=== PATIENT | female | born 1955 | race Caucasian/White ===

== ENCOUNTER 2019-08-14 05:21 | Inpatient (IN) | payer MEDICAID ==
[~2019-08-14] VITALS: Ht 165.1 cm; Wt 98.0 kg
[~2019-08-14 05:21] MED LIST: BACDS PO
[2019-08-14] MEDS ORDERED: normal saline 1000ML IV soln IVB ONE (05:30)
[2019-08-14] MEDS ORDERED: DOXY100C43 PO (05:41)
[2019-08-14 05:54] LABS: BASOPHILS % (AUTO) 0.4 % (0-1); EOSINOPHILS # (AUTO) 0.2 X10'3 (0-0.9); EOSINOPHILS % (AUTO) 2.1 % (0-6); HEMATOCRIT 37.8 % (35.0-45.0); HEMOGLOBIN 12.7 g/dl (12.0-16.0); LYMPHOCYTES # (AUTO) 1.6 X10'3 (1.1-4.8); LYMPHOCYTES % (AUTO) 18.7 % (21-51); MEAN CORPUSCULAR HGB CONC 33.7 g/dL (33.0-36.5); MEAN PLATELET VOLUME 8.6 FL (7.4-10.4); MONOCYTES # (AUTO) 0.8 X10'3 (0-0.9); MONOCYTES % (AUTO) 9.5 % (2-12); NEUTROPHILS % (AUTO) 69.3 % (42-75); PLATELET COUNT 317 X10'3 (140-440); RED CELL DISTRIBUTION WIDTH 14.5 % (11.5-14.5); WHITE BLOOD COUNT 8.6 X10'3 (4.5-11.0)
[2019-08-14 06:18] LABS: ANION GAP 10 (8-16); BILIRUBIN,TOTAL 0.4 MG/DL (0.1-1.0); BLOOD UREA NITROGEN 16 MG/DL (7-18); BUN/CREATININE RATIO 15.7 (6.6-38.0); CALCIUM 9.3 MG/DL (8.5-10.1); CHLORIDE 105 MMOL/L (99-107); CREATININE 1.02 MG/DL (0.40-0.90); GLUCOSE 106 MG/DL (70-104); POTASSIUM 3.5 MMOL/L (3.5-5.1); SODIUM 140 MMOL/L (135-145); TOTAL CARBON DIOXIDE 24.6 MMOL/L (24-32); TOTAL PROTEIN 8.1 G/DL (6.4-8.2); eGFR 55 ML/MIN
[2019-08-14 06:19] LABS: ALANINE AMINOTRANSFERASE 32 U/L (12-78); ALBUMIN 3.1 G/DL (3.4-5.0); ALBUMIN/GLOBULIN RATIO 0.6 (1.1-1.5); ALKALINE PHOSPHATASE 135 IU/L (46-116); ASPARTATE AMINO TRANSFERASE 47 U/L (10-37)
--- NOTE | 2019-08-14 06:45 | NUR ---
PATIENT IS UNKEMPT WITH VERY DIRTY CLOTHES, SOCKS AND SHOES. INCONTINENT OF URINE. PATIENT GIVEN MELIDA CARE AND UP TO [facility] FOR CLEAN CATCH URINE SPECIMEN. CLOTHING REMOVED AND DIAPER APPLIED. NURSE ATTEMPTED TO REMOVE PATIENT'S SHOES WITHOUT SUCCESS. SHOES REMOVED. PATIENT HAS VERY DIRTY SOCKS THAT ARE STIFF AND STUCK TO FEET. PURULENT OOZING NOTED FROM BILAT FEET WITH REDNESS AND OPEN WOUNDS. FEET SOAKED IN WARM WATER, IN ATTEMPTS TO GET SOCKS OFF.
[2019-08-14] MEDS ORDERED: clotrimazole topical cream 15gm tube TP SCH (07:05)
[2019-08-14] MEDS ORDERED: clindamycin phosphate inj 600 MG in normal saline 50ml IV soln 50 ML IV ONE (07:05)
[2019-08-14] MEDS ORDERED: clotrimazole topical cream 15gm tube TP ONE (07:05)
[2019-08-14] MEDS ORDERED: clindamycin 600mg/D5W 50ml 50 ML IV ONE (07:10)
[2019-08-14 07:18] LABS: CLARITY,URINE SLIGHTLY CLOUDY (Clear); COLOR,URINE YELLOW (Yellow); GLUCOSE, URINE NEGATIVE (Neg); KETONES,URINE NEGATIVE (Neg); LEUKOCYTE ESTERASE ,URINE LARGE (Neg); NITRITES, URINE POSITIVE (Neg); OCCULT BLOOD,URINE MODERATE (Neg); PROTEIN,URINE NEGATIVE (Neg); UROBILINOGEN,URINE 0.2 E.U/dL (0.2-1.0)
[2019-08-14 07:25] LABS: UA COLLECTION TYPE CLN CATCH MIDSTREAM
[2019-08-14 07:30] LABS: SQUAMOUS EPITHELIAL CELL,UR MODERATE /LPF (FEW)
[2019-08-14 07:32] LABS: BACTERIA,URINE 4+ /HPF (Neg); RBC,URINE 20-50 /HPF (0-2); WBC,URINE TNTC /HPF (0-4)
--- NOTE | 2019-08-14 08:50 | NUR ---
Report received from ED RNDonna.
--- NOTE | 2019-08-14 08:55 | NUR ---
PAGE TO CASE MANAGEMENT. INDY CALLED BACK AND INFORMED THAT PATIENT IS BEING ADMITTED TO INPATIENT STATUS. INDY STATES THAT PATIENT WILL BE SEEN ON THURSDAY BY OUR SURVEY RODMAN STAFF, TO ASSIST WITH DISCHARGE PLANNING NEEDS.
--- NOTE | 2019-08-14 08:58 | NUR ---
CONTACT NUMBER [phone] FOR FRIEND, OSBALDO CANO. 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
--- NOTE | 2019-08-14 09:20 | NUR ---
Pt arrived to room 354C from ED
[2019-08-14 09:30] VITALS: BP 151/93
[2019-08-14 11:30] VITALS: BP 176/91
[2019-08-14] MEDS ORDERED: NO HOME MEDS (13:16)
[2019-08-14] MEDS ORDERED: normal saline 1000ml 1,000 ML IV ONE (17:15)
[2019-08-14] MEDS: aspirin 81mg tablet.DR PO SCH (17:38)
[2019-08-14] MEDS: CefTRIAXone 2gm/D5W 50ml 50 ML IV SCH (17:38)
[2019-08-14] MEDS: hydrALAZINE 20mg/ml inj. IV PRN (17:38)
--- NOTE | 2019-08-14 18:30 | NUR ---
Problems reprioritized. Patient report given, questions answered & plan of care reviewed with JASON Dobson.
--- NOTE | 2019-08-14 18:55 | NUR ---
Patient in room [facility] 354. I have received report from JASON Marie and had the opportunity to ask questions and assume patient care.
[2019-08-14] MEDS ORDERED: acetaminophen 325mg tablet PO PRN ×2 (19:30)
[2019-08-14] MEDS ORDERED: potassium Cl 20 mEq SR tablet PO PRN ×2 (19:30)
[2019-08-14] MEDS: metoprolol tartrate 12.5mg (1/2 tablet) PO SCH (19:30)
[2019-08-14] MEDS ORDERED: ondansetron/PF 4mg/2ml inj IV PRN (19:30)
[2019-08-14] MEDS: mineral oil/petrolatum, white cream 113gm jar TP SCH (19:30)
[2019-08-14] MEDS ORDERED: magnesium 4gm in 100ml NS 100 ML IV PRN (19:30)
[2019-08-14] MEDS ORDERED: HYDROcodone/acetaminophen 5mg/325mg tablet PO PRN (19:30)
[2019-08-14] MEDS ORDERED: potassium CL 10mEq/100ml bag 100 ML IV PRN ×2 (19:30)
[2019-08-14] MEDS ORDERED: mag hydrox/Alum hydrox/simeth 30ml oral suspension PO PRN (19:30)
[2019-08-14] MEDS ORDERED: magnesium 2GM in 50ml NS 50 ML IV PRN (19:30)
[2019-08-14] MEDS ORDERED: magnesium Cl slow-release 64mg tablet PO PRN (19:30)
[2019-08-14] MEDS ORDERED: morphine 2 MG/ML inj. syringe IV PRN ×2 (19:30)
[2019-08-14 22:37] VITALS: BP 154/82
[2019-08-15 00:27] VITALS: BP 154/81
[2019-08-15 05:31] LABS: BASOPHILS % (AUTO) 0.2 % (0-1); EOSINOPHILS # (AUTO) 0.1 X10'3 (0-0.9); EOSINOPHILS % (AUTO) 1.3 % (0-6); HEMATOCRIT 36.2 % (35.0-45.0); LYMPHOCYTES # (AUTO) 0.9 X10'3 (1.1-4.8); LYMPHOCYTES % (AUTO) 10.8 % (21-51); MEAN CORPUSCULAR HEMOGLOBIN 28.6 PG (27.0-31.0); MEAN CORPUSCULAR HGB CONC 33.1 g/dL (33.0-36.5); MEAN CORPUSCULAR VOLUME 86.7 FL (78-98); MEAN PLATELET VOLUME 8.6 FL (7.4-10.4); MONOCYTES # (AUTO) 0.7 X10'3 (0-0.9); MONOCYTES % (AUTO) 8.6 % (2-12); NEUTROPHILS # (AUTO) 6.5 X10'3 (1.8-7.7); NEUTROPHILS % (AUTO) 79.1 % (42-75); PLATELET COUNT 291 X10'3 (140-440); RED BLOOD COUNT 4.18 X10'6 (4.20-5.60); RED CELL DISTRIBUTION WIDTH 14.6 % (11.5-14.5); WHITE BLOOD COUNT 8.2 X10'3 (4.5-11.0)
[2019-08-15 05:45] LABS: ALBUMIN 2.5 G/DL (3.4-5.0); ANION GAP 10 (8-16); BLOOD UREA NITROGEN 13 MG/DL (7-18); CALCIUM 8.7 MG/DL (8.5-10.1); CHLORIDE 109 MMOL/L (99-107); CREATININE 0.93 MG/DL (0.40-0.90); GLUCOSE 83 MG/DL (70-104); MAGNESIUM 2.2 MG/DL (1.5-2.4); POTASSIUM 3.7 MMOL/L (3.5-5.1); SODIUM 145 MMOL/L (135-145); TOTAL CARBON DIOXIDE 25.9 MMOL/L (24-32); eGFR 61 ML/MIN
--- NOTE | 2019-08-15 06:25 | NUR ---
Patient in room [facility] 354. I have received report from JASON Dobson and had the opportunity to ask questions and assume patient care.
[2019-08-15 06:30] VITALS: BP 191/95
--- NOTE | 2019-08-15 06:43 | NUR ---
Problems reprioritized. Patient report given, questions answered & plan of care reviewed with JASON Marie.
[2019-08-15] MEDS: K and/or MAG REPLACEMENT MC SCH (07:00)
--- NOTE | 2019-08-15 07:28 | NUR ---
Patient in room [facility] 354. I have received report from Cynthia GOMEZ and had the opportunity to ask questions and assume patient care.
[2019-08-15] MEDS: enoxaparin 40mg/0.4ml syringe SQ SCH (08:00)
[2019-08-15] MEDS: CefTRIAXone 2gm/D5W 50ml 50 ML IV SCH (08:07)
[2019-08-15] MEDS: aspirin 81mg tablet.DR PO SCH (08:08)
[2019-08-15] MEDS: metoprolol tartrate 12.5mg (1/2 tablet) PO SCH ×2 (08:09→18:58)
[2019-08-15] MEDS: mineral oil/petrolatum, white cream 113gm jar TP SCH (08:13)
--- NOTE | 2019-08-15 10:21 | NUR ---
Student Medication Administration: For this medication-pass time frame, all medication were reviewed, dispensed, administered and documented per hospital policy by Sara sales representative groceries.
[2019-08-15 10:25] VITALS: BP 179/79
[2019-08-15 11:00] VITALS: BP 173/79
[2019-08-15] MEDS: hydrALAZINE 20mg/ml inj. IV PRN ×2 (11:11→21:09)
--- NOTE | 2019-08-15 11:56 | NUR ---
Student documentation: I have reviewed and agree with all interventions, assessments performed and documented by Sara, student finance advisor.
--- NOTE | 2019-08-15 12:20 | NUR ---
Patient report given, questions answered & plan of care reviewed with Celeste student nurse.
--- NOTE | 2019-08-15 12:23 | NUR ---
Patient in room [facility] 354. I have received report from Sara, student nurse and had the opportunity to ask questions and assume patient care.
[2019-08-15 13:40] VITALS: BP 144/89
--- NOTE | 2019-08-15 15:15 | NUR ---
Wound care was asked to see patient regarding her feet, and her legs. Patient has some skin care issues related to not caring for herself well. She had kept the same socks and shoes on her feet that embedded groves into the soles of the feet and she has some flaky skin to her legs and feet. She needs a good scrubbing to her feet and legs and some eucerin lotion. I will order the eucerin lotion but no other wound care is needed at this time.
[2019-08-15] MEDS: emollient combination-Eucerin 250 ML LOTION TP SCH (16:20)
--- NOTE | 2019-08-15 17:12 | NUR ---
reviewed student nurse charting
--- NOTE | 2019-08-15 17:56 | NUR ---
Problems reprioritized. Patient report given, questions answered & plan of care reviewed with Cynthia RN.
[2019-08-15 18:00] VITALS: BP 174/119
--- NOTE | 2019-08-15 18:35 | NUR ---
Problems reprioritized. Patient report given, questions answered & plan of care reviewed with JASON Dobson.
--- NOTE | 2019-08-15 18:43 | NUR ---
Patient in room [facility] 354. I have received report from JASON Marie and had the opportunity to ask questions and assume patient care.
[2019-08-15] MEDS: magnesium hydroxide 30ml (MOM) UD suspension PO PRN ×2 (19:00→19:01)
[2019-08-15] MEDS ORDERED: metoprolol tartrate 25mg tablet PO SCH (20:00)
[2019-08-15] MEDS ORDERED: emollient combination-Eucerin 250 ML LOTION TP SCH (20:00)
[2019-08-15] MEDS ORDERED: metoprolol tartrate 12.5mg (1/2 tablet) PO ONE (20:40)
[2019-08-16] VITALS: BP 155/127
[2019-08-16] MEDS ORDERED: cloNIDine 0.1 mg tablet PO ONE (00:10)
--- NOTE | 2019-08-16 04:02 | NUR ---
Tech reported at the beginning of shift around 1830 that the patients BP was 174/119 (right upper arm). I gave Lopressor 12.5mg scheduled for 1999 and hour early. I re checked it an hour (1999) after medication was given and BP was 144/122 (right upper arm). I got an order for 10mg of hydralazine and it was given at 2109. 2305 BP was taken and reported to be 155/127, and 198/115 at 0000. Hospitalist gave order for Clonidine 0.2mg once , which was given at 0025. Patient was getting frustrated with us taking BP so often and was apprehensive about taking medications. I educated her on the importance of lowering her blood pressure, and so she ended up taking Clonidine but did not want to have her BP re checked until 0400. When it was re taken at 0400 on left forearm it was 190/104, 10 mg of hydralazine was given and I will re check it 30-45 mins after medication was given.
[2019-08-16] MEDS: hydrALAZINE 20mg/ml inj. IV PRN (04:12)
--- NOTE | 2019-08-16 04:55 | NUR ---
please see notes regarding patients BP Addendum: 08/16/19 at 0456 by Bronson Vela RN Amended: Links added.
--- NOTE | 2019-08-16 04:57 | NUR ---
please see notes regarding patients BP and re checks Addendum: 08/16/19 at 0457 by Bronson Vela RN Amended: Links added.
--- NOTE | 2019-08-16 05:01 | NUR ---
Re checked patients BP after hydralizine was given. BP 165/83, HR 93
[2019-08-16 06:11] LABS: BASOPHILS % (AUTO) 0.4 % (0-1); EOSINOPHILS # (AUTO) 0.1 X10'3 (0-0.9); EOSINOPHILS % (AUTO) 1.6 % (0-6); LYMPHOCYTES # (AUTO) 1.1 X10'3 (1.1-4.8); LYMPHOCYTES % (AUTO) 14.8 % (21-51); MEAN CORPUSCULAR HEMOGLOBIN 28.7 PG (27.0-31.0); MEAN CORPUSCULAR HGB CONC 33.2 g/dL (33.0-36.5); MEAN CORPUSCULAR VOLUME 86.4 FL (78-98); MONOCYTES # (AUTO) 0.6 X10'3 (0-0.9); MONOCYTES % (AUTO) 9.1 % (2-12); NEUTROPHILS # (AUTO) 5.3 X10'3 (1.8-7.7); NEUTROPHILS % (AUTO) 74.1 % (42-75); PLATELET COUNT 292 X10'3 (140-440); RED BLOOD COUNT 4.17 X10'6 (4.20-5.60); RED CELL DISTRIBUTION WIDTH 14.8 % (11.5-14.5); WHITE BLOOD COUNT 7.1 X10'3 (4.5-11.0)
[2019-08-16 06:15] LABS: ALBUMIN 2.6 G/DL (3.4-5.0); ANION GAP 10 (8-16); BLOOD UREA NITROGEN 14 MG/DL (7-18); BUN/CREATININE RATIO 15.4 (6.6-38.0); CALCIUM 8.7 MG/DL (8.5-10.1); CHLORIDE 107 MMOL/L (99-107); CREATININE 0.91 MG/DL (0.40-0.90); GLUCOSE 81 MG/DL (70-104); MAGNESIUM 2.1 MG/DL (1.5-2.4); POTASSIUM 3.7 MMOL/L (3.5-5.1); SODIUM 141 MMOL/L (135-145); TOTAL CARBON DIOXIDE 24.3 MMOL/L (24-32); eGFR 62 ML/MIN
--- NOTE | 2019-08-16 06:51 | NUR ---
Problems reprioritized. Patient report given, questions answered & plan of care reviewed with JASON Barnes.
--- NOTE | 2019-08-16 07:08 | NUR ---
Patient in room [facility] 354. I have received report from Bronson and had the opportunity to ask questions and assume patient care.
--- NOTE | 2019-08-16 07:13 | NUR ---
Patient in room [facility] 354. I have received report from Bronson GOMEZ and had the opportunity to ask questions and assume patient care.
[2019-08-16] MEDS: CefTRIAXone 2gm/D5W 50ml 50 ML IV SCH (07:43)
[2019-08-16 08:00] VITALS: BP 172/90
[2019-08-16] MEDS: enoxaparin 40mg/0.4ml syringe SQ SCH (08:00)
[2019-08-16] MEDS: K and/or MAG REPLACEMENT MC SCH (08:00)
[2019-08-16] MEDS: aspirin 81mg tablet.DR PO SCH (08:03)
[2019-08-16] MEDS: HYDROchlorothiazide 25mg tablet PO SCH (08:04)
[2019-08-16] MEDS: metoprolol tartrate 25mg tablet PO SCH ×2 (08:05→20:31)
[2019-08-16] MEDS: emollient combination-Eucerin 250 ML LOTION TP SCH (08:09)
--- NOTE | 2019-08-16 10:36 | NUR ---
Student documentation: I have reviewed and agree with all interventions, assessments performed and documented by Mara, nursing home social worker.
--- NOTE | 2019-08-16 10:36 | NUR ---
Student Medication Administration: For this medication-pass time frame, all medication were reviewed, dispensed, administered and documented per hospital policy by Mara nursing director.
--- NOTE | 2019-08-16 12:06 | NUR ---
Problems reprioritized. Patient report given, questions answered & plan of care reviewed with Molly.
[2019-08-16] MEDS ORDERED: METO25TA6 PO (12:56)
[2019-08-16] MEDS ORDERED: HCTZ25T PO (12:56)
[2019-08-16] MEDS ORDERED: ASPI-1071 PO (12:56)
[2019-08-16] MEDS ORDERED: FURO-149 PO (12:56)
[2019-08-16] MEDS ORDERED: CEFD300C3 PO (12:56)
[2019-08-16] MEDS ORDERED: ATOR10TA PO (13:00)
--- NOTE | 2019-08-16 17:30 | NUR ---
theresa OLVERA pt was unable to be DC because pt's friends took her walker and she is unable to walk to her apartment by herself. She needs a walker to move around.
--- NOTE | 2019-08-16 18:00 | NUR ---
Problems reprioritized. Patient report given, questions answered & plan of care reviewed with Alix GOMEZ.
--- NOTE | 2019-08-16 18:40 | NUR ---
Patient in room [facility] 354. I have received report from JASON HERNANDEZ and had the opportunity to ask questions and assume patient care. Addendum: 08/16/19 at 2108 by Alix Rueda RN Amended: Links added.
[2019-08-16 19:00] VITALS: BP 169/81
[2019-08-16] MEDS: lactobacillus rhamnosus 10,000 MMU CELLS/CAPSULE PO SCH (20:20)
[2019-08-17] VITALS: BP 177/91
[2019-08-17 05:44] LABS: ALBUMIN 2.9 G/DL (3.4-5.0); ANION GAP 9 (8-16); BLOOD UREA NITROGEN 17 MG/DL (7-18); BUN/CREATININE RATIO 17.5 (6.6-38.0); CALCIUM 9.8 MG/DL (8.5-10.1); CHLORIDE 104 MMOL/L (99-107); CREATININE 0.97 MG/DL (0.40-0.90); GLUCOSE 94 MG/DL (70-104); MAGNESIUM 2.2 MG/DL (1.5-2.4); POTASSIUM 3.9 MMOL/L (3.5-5.1); SODIUM 141 MMOL/L (135-145); TOTAL CARBON DIOXIDE 28.4 MMOL/L (24-32); eGFR 58 ML/MIN
[2019-08-17 05:47] LABS: BASOPHILS % (AUTO) 0.6 % (0-1); EOSINOPHILS # (AUTO) 0.2 X10'3 (0-0.9); EOSINOPHILS % (AUTO) 2.8 % (0-6); HEMATOCRIT 39.9 % (35.0-45.0); LYMPHOCYTES % (AUTO) 17.1 % (21-51); MEAN CORPUSCULAR HEMOGLOBIN 28.3 PG (27.0-31.0); MEAN CORPUSCULAR HGB CONC 32.6 g/dL (33.0-36.5); MEAN PLATELET VOLUME 8.8 FL (7.4-10.4); MONOCYTES # (AUTO) 0.6 X10'3 (0-0.9); MONOCYTES % (AUTO) 9.7 % (2-12); NEUTROPHILS # (AUTO) 4.1 X10'3 (1.8-7.7); NEUTROPHILS % (AUTO) 69.8 % (42-75); PLATELET COUNT 319 X10'3 (140-440); RED BLOOD COUNT 4.59 X10'6 (4.20-5.60); RED CELL DISTRIBUTION WIDTH 14.6 % (11.5-14.5); WHITE BLOOD COUNT 5.9 X10'3 (4.5-11.0)
--- NOTE | 2019-08-17 06:41 | NUR ---
Problems reprioritized. Patient report given, questions answered & plan of care reviewed with JASON MCDERMOTT. Addendum: 08/17/19 at 0642 by Alix Rueda RN Amended: Links added.
[2019-08-17] MEDS: hydrALAZINE 20mg/ml inj. IV PRN (06:55)
[2019-08-17] MEDS: enoxaparin 40mg/0.4ml syringe SQ SCH ×2 (08:00→08:06)
[2019-08-17] MEDS: K and/or MAG REPLACEMENT MC SCH (08:00)
[2019-08-17 08:03] VITALS: BP 188/84
[2019-08-17] MEDS: HYDROchlorothiazide 25mg tablet PO SCH (08:05)
[2019-08-17] MEDS: CefTRIAXone 2gm/D5W 50ml 50 ML IV SCH (08:05)
[2019-08-17] MEDS: lactobacillus rhamnosus 10,000 MMU CELLS/CAPSULE PO SCH (08:05)
[2019-08-17] MEDS: metoprolol tartrate 25mg tablet PO SCH (08:05)
[2019-08-17] MEDS: aspirin 81mg tablet.DR PO SCH (08:05)
[2019-08-17] MEDS: emollient combination-Eucerin 250 ML LOTION TP SCH (08:07)
--- NOTE | 2019-08-17 08:31 | NUR ---
PAGER ID: [phone] MESSAGE: Lena Pretty 354C Pt. still here but discharge order seen. May we have order to hold discharge. Please not pt. recent BP, and liver enzymes. Thank you Mary [id number]
--- NOTE | 2019-08-17 08:35 | NUR ---
replied promptly to page. orders to continue to monitor blood pressure. If 30% decrease in SBP. it is ok to discharge pt. per order, if not will notify .
[2019-08-17 09:36] VITALS: BP 151/80
[2019-08-17] MEDS ORDERED: AMLO5TAB4 PO ×2 (11:21→11:29)
--- NOTE | 2019-08-17 12:30 | NUR ---
Pt. discharged. Paperwork and medication reviewed with pt. Neighbor present for discussion. IV DC'd, bandage applied.
--- NOTE | 2019-08-17 12:34 | NUR ---
Spoke to roommate who stated that the patient has untreated schizophrenia and that the patient's house is a disaster, that the patient wanders around talking to herself. Pt. states hope van will not offer medical services unless the patient is "on the street". States someone is helping her with the skin CA on her face, but that she has not been offered any psychiatric resources. airfield services officer order already ordered, case management states SS not available today but CM will refer APS to pt with SS tomorrow.
== END 2019-08-17 12:31 | disposition home or self-care (01) | DRG 463 ==
LOC: ER 05:22 → ED HOLD 07:45 → SUR 3N 09:30 → CMPBEDREQ 08-15 19:47
PROVIDERS: ADMIT Hospitalist; ATTEND Hospitalist
DX: N39.0 Urinary tract infection, site not specified (principal); I50.33 Acute on chronic diastolic (congestive) heart failure; L03.115 Cellulitis of right lower limb; F20.9 Schizophrenia, unspecified; B36.9 Superficial mycosis, unspecified; F17.210 Nicotine dependence, cigarettes, uncomplicated; E86.0 Dehydration; B96.20 Unspecified Escherichia coli [E. coli] as the cause of diseases classified elsewhere; I11.0 Hypertensive heart disease with heart failure; J45.909 Unspecified asthma, uncomplicated; W06.XXXA Fall from bed, initial encounter; L03.116 Cellulitis of left lower limb; R29.6 Repeated falls; Z86.73 Personal history of transient ischemic attack (TIA), and cerebral infarction without residual deficits; Y93.89 Activity, other specified; Y92.89 Other specified places as the place of occurrence of the external cause; Y99.8 Other external cause status
CPT/HCPCS: 36415; 70450; 80048; 80053; 81001; 83735; 83880; 85025; 87077; 87081; 87088; 87186; 93306; 96360; 97116; 97161; 97530; 97535; 99285; G0378; J0360; J0696; J1650; J3490; J7030

== ENCOUNTER 2019-08-25 01:40 | Emergency (ER) | payer MEDICAID ==
[~2019-08-25] VITALS: Ht 165.1 cm; Wt 98.0 kg
[~2019-08-25 01:40] MED LIST changes: +AMLO5TAB4 PO; +ASPI-1071 PO; +ATOR10TA PO; -BACDS PO; +CEFD300C3 PO; +FURO-149 PO; +HCTZ25T PO; +METO25TA6 PO
[2019-08-25 03:09] VITALS: BP 165/84
== END 2019-08-25 04:16 | disposition home or self-care (01) ==
LOC: ER 01:41
DX: Z00.8 Encounter for other general examination (principal); J45.909 Unspecified asthma, uncomplicated; F20.9 Schizophrenia, unspecified; Z86.73 Personal history of transient ischemic attack (TIA), and cerebral infarction without residual deficits; Z60.2 Problems related to living alone; Z79.82 Long term (current) use of aspirin; Z79.899 Other long term (current) drug therapy; W18.39XA Other fall on same level, initial encounter; Y93.G1 Activity, food preparation and clean up; Y92.090 Kitchen in other non-institutional residence as the place of occurrence of the external cause; Y99.8 Other external cause status
CPT/HCPCS: 93005; 99284

== ENCOUNTER 2019-09-03 22:33 | Inpatient (IN) | payer MEDICAID ==
[~2019-09-03] VITALS: Ht 165.1 cm; Wt 86.4 kg
[2019-09-04 00:13] LABS: HEMATOCRIT 33.4 % (35.0-45.0); HEMOGLOBIN 11.1 g/dl (12.0-16.0)
[2019-09-04 00:14] LABS: BASOPHILS % (AUTO) 0.4 % (0-1); EOSINOPHILS # (AUTO) 0.1 X10'3 (0-0.9); EOSINOPHILS % (AUTO) 0.9 % (0-6); LYMPHOCYTES # (AUTO) 0.9 X10'3 (1.1-4.8); LYMPHOCYTES % (AUTO) 8.2 % (21-51); MEAN CORPUSCULAR HEMOGLOBIN 28.4 PG (27.0-31.0); MEAN CORPUSCULAR HGB CONC 33.2 g/dL (33.0-36.5); MEAN CORPUSCULAR VOLUME 85.6 FL (78-98); MEAN PLATELET VOLUME 8.2 FL (7.4-10.4); MONOCYTES % (AUTO) 9.5 % (2-12); NEUTROPHILS # (AUTO) 8.7 X10'3 (1.8-7.7); PLATELET COUNT 366 X10'3 (140-440); RED CELL DISTRIBUTION WIDTH 14.4 % (11.5-14.5); WHITE BLOOD COUNT 10.7 X10'3 (4.5-11.0)
[2019-09-04 00:18] LABS: PARTIAL THROMBOPLASTIN TIME 30 SECONDS (22-32)
[2019-09-04 00:28] LABS: ALANINE AMINOTRANSFERASE 31 U/L (12-78); ALBUMIN 2.7 G/DL (3.4-5.0); ALBUMIN/GLOBULIN RATIO 0.6 (1.1-1.5); ALKALINE PHOSPHATASE 122 IU/L (46-116); ANION GAP 10 (8-16); ASPARTATE AMINO TRANSFERASE 31 U/L (10-37); BILIRUBIN,TOTAL 0.3 MG/DL (0.1-1.0); BLOOD UREA NITROGEN 19 MG/DL (7-18); BUN/CREATININE RATIO 21.3 (6.6-38.0); CALCIUM 8.4 MG/DL (8.5-10.1); CHLORIDE 104 MMOL/L (99-107); CREATININE 0.89 MG/DL (0.40-0.90); GLUCOSE 110 MG/DL (70-104); MAGNESIUM 1.9 MG/DL (1.5-2.4); POTASSIUM 3.5 MMOL/L (3.5-5.1); SODIUM 140 MMOL/L (135-145); TOTAL CARBON DIOXIDE 26.4 MMOL/L (24-32); eGFR 64 ML/MIN
[2019-09-04] MEDS ORDERED: HYDR25TA4 PO (02:19)
[2019-09-04] MEDS ORDERED: CEFD300C3 PO (02:19)
[2019-09-04] MEDS ORDERED: AMLO-314 PO (02:19)
[2019-09-04] MEDS ORDERED: METO25TA6 PO (02:19)
[2019-09-04] MEDS ORDERED: FURO40TA4 PO (02:19)
[2019-09-04] MEDS ORDERED: ATOR10TA70 PO (02:19)
[2019-09-04] MEDS ORDERED: LORazepam 0.5 MG tablet PO PRN (04:00)
[2019-09-04] MEDS ORDERED: LORazepam 1 MG tablet PO ONE (04:00)
[2019-09-04] MEDS ORDERED: LORazepam 1 MG tablet PO PRN (04:00)
[2019-09-04] MEDS ORDERED: normal saline 1000ML IV soln IVB ONE (04:05)
[2019-09-04] MEDS ORDERED: cefTAZidime inj 2 GM in normal saline 100ml IV soln 100 ML IV SCH (04:30)
[2019-09-04] MEDS ORDERED: cefTAZidime inj 2 GM in normal saline 100ml IV soln 100 ML IV ONE (04:37)
[2019-09-04 04:49] LABS: ETHANOL < 0.010 GM/DL (0.0-0.010)
[2019-09-04] MEDS: nystatin 15 GM powder TP SCH ×4 (04:59→21:00)
[2019-09-04 05:00] LABS: CLARITY,URINE CLEAR (Clear); COLOR,URINE YELLOW (Yellow); GLUCOSE, URINE NEGATIVE (Neg); KETONES,URINE NEGATIVE (Neg); LEUKOCYTE ESTERASE ,URINE SMALL (Neg); NITRITES, URINE NEGATIVE (Neg); OCCULT BLOOD,URINE TRACE-INTACT (Neg); PROTEIN,URINE TRACE mg/dl (Neg); UROBILINOGEN,URINE 0.2 E.U/dL (0.2-1.0)
--- NOTE | 2019-09-04 05:05 | NUR ---
The patients old hospital socks were removed, they were sticking to her feet by the toes. Her right foot on top by toes 2-4 were sticking the worse. Between her toes there is white maceration. MD to BS to look at feet. Pt was then taken to BS commode. Pericare completed prior to her voiding. Her adama area was foul smelling and had old urine and bm in the area. She also has a yeasty appearance to that whole area and redness. Once on commode her feet were soaked and scrubbed with betadine scrubbers. Large plaques of skin were peeled away. In between her toes were cleansed. They were dried and fresh gripper socks applied. Once in bed her breast folds were cleansed. Her left breast is moist with yeast and odorous. All skin cleansed/dried and a washcloth applied between breasts. Since the left breast is so weepy, InterDry was applied. While doing this her right inner ankle area started to weep slightly, so a piece on InterDry was placed there as well. The nystantin powder was then available and that was powdered to her adama area and her right breast fold. I will wait with the left breast fold for just a bit while the InterDry sops up the dampness. Her hands were then cleansed with a betadine scrubber, as they were stained with old blood, dirt and grease and I believe BM smears. Her ua was sent to lab. informed of all of this.
[2019-09-04 05:10] LABS: UA COLLECTION TYPE VOIDED
[2019-09-04 05:13] LABS: BACTERIA,URINE FEW /HPF (Neg); MUCUS STRANDS FEW /LPF (Neg); RBC,URINE 0-2 /HPF (0-2); SQUAMOUS EPITHELIAL CELL,UR FEW /LPF (FEW); WBC,URINE 30-50 /HPF (0-4)
[2019-09-04 05:14] LABS: URINE AMPHETAMINE SCREEN NEGATIVE (Neg); URINE BARBITUATE SCREEN NEGATIVE (Neg); URINE BENZODIAZEPINES SCREEN NEGATIVE (Neg); URINE CANNABINOID SCREEN NEGATIVE (Neg); URINE COCAINE SCREEN NEGATIVE (Neg); URINE METHADONE SCREEN NEGATIVE (Neg); URINE OPIATE SCREEN NEGATIVE (Neg); URINE PHENCYCLIDINE SCREEN NEGATIVE (Neg)
[2019-09-04] MEDS ORDERED: morphine 2 MG/ML inj. syringe IV PRN (05:40)
[2019-09-04] MEDS ORDERED: mag hydrox/Alum hydrox/simeth 30ml oral suspension PO PRN (05:40)
[2019-09-04] MEDS ORDERED: magnesium hydroxide 30ml (MOM) UD suspension PO PRN (05:40)
[2019-09-04] MEDS ORDERED: acetaminophen 325mg tablet PO PRN (05:40)
[2019-09-04] MEDS ORDERED: normal saline 1000ml 1,000 ML IV SCH (05:40)
[2019-09-04] MEDS ORDERED: ondansetron/PF 4mg/2ml inj IV PRN (05:40)
[2019-09-04] MEDS: ipratropium/albuterol 3ml nebule NEB SCH ×3 (06:50→15:00)
--- NOTE | 2019-09-04 06:50 | NUR ---
Report received from ED RNMariana.
--- NOTE | 2019-09-04 07:00 | NUR ---
Paged Dr. Beebe regarding med rec to be addressed.
--- NOTE | 2019-09-04 07:34 | NUR ---
wound pictures printed and placed on chart.
--- NOTE | 2019-09-04 07:50 | NUR ---
Pt arrived to room 438A from ED
[2019-09-04 08:00] VITALS: BP 138/78
[2019-09-04 09:35] VITALS: BP 131/76
[2019-09-04] MEDS: clindamycin 600mg/D5W 50ml 50 ML IV SCH ×3 (09:52→20:11)
[2019-09-04] MEDS: furosemide 40mg/4ml inj IV SCH ×2 (09:52→20:16)
[2019-09-04] MEDS: heparin, porcine 5000 units/ml vial SQ SCH ×2 (09:53→20:00)
[2019-09-04] MEDS ORDERED: ipratropium/albuterol 3ml nebule NEB PRN (10:30)
[2019-09-04 11:00] VITALS: BP 128/73
[2019-09-04] MEDS ORDERED: ipratropium/albuterol 3ml nebule NEB SCH (11:00)
--- NOTE | 2019-09-04 12:00 | NUR ---
phlebotomy tech called to inform of a second few second drop of HR to 40 (First time was 45, documented in VS). Pt asymptomatic & HR when assessed @ this time is back to low 100s.
[2019-09-04] MEDS: atorvastatin 10mg tablet PO SCH (13:43)
[2019-09-04] MEDS: acetaminophen 325mg tablet PO PRN (14:14)
--- NOTE | 2019-09-04 15:49 | NUR ---
Dr Malik notified of 3rd time today pt had decreased HR (45, 40, 30s) notified by telegraphic service dispatcher, pt asymptomatic.
--- NOTE | 2019-09-04 18:25 | NUR ---
Problems reprioritized. Patient report given, questions answered & plan of care reviewed with JASON Bragg.
[2019-09-04 18:50] VITALS: BP 119/56
[2019-09-04] MEDS ORDERED: metoprolol tartrate 25mg tablet PO SCH (20:00)
[2019-09-04] MEDS ORDERED: HYDROcodone/acetaminophen 5mg/325mg tablet PO PRN (20:05)
[2019-09-04] MEDS: lactobacillus rhamnosus 10,000 MMU CELLS/CAPSULE PO SCH (20:19)
--- NOTE | 2019-09-04 22:36 | NUR ---
THIS PATIENT HAD BRADYCARDIA WITH 4.2 SEC PAUSE. VITALS DONE, EKG DONE AND DR. ELLINGTON NOTIFIED, NO NEW ORDERS GIVEN.
[2019-09-05] VITALS: BP 134/76
[2019-09-05] MEDS: clindamycin 600mg/D5W 50ml 50 ML IV SCH ×4 (01:57→20:09)
[2019-09-05] MEDS: ipratropium/albuterol 3ml nebule NEB SCH ×2 (03:00→07:23)
[2019-09-05 05:31] LABS: ALBUMIN 2.4 G/DL (3.4-5.0); ANION GAP 5 (8-16); BLOOD UREA NITROGEN 16 MG/DL (7-18); BUN/CREATININE RATIO 14.3 (6.6-38.0); CALCIUM 8.5 MG/DL (8.5-10.1); CHLORIDE 107 MMOL/L (99-107); CREATININE 1.12 MG/DL (0.40-0.90); GLUCOSE 81 MG/DL (70-104); POTASSIUM 3.3 MMOL/L (3.5-5.1); SODIUM 144 MMOL/L (135-145); TOTAL CARBON DIOXIDE 31.8 MMOL/L (24-32); eGFR 49 ML/MIN
[2019-09-05 05:33] LABS: BASOPHILS % (AUTO) 0.4 % (0-1); EOSINOPHILS # (AUTO) 0.2 X10'3 (0-0.9); EOSINOPHILS % (AUTO) 3.3 % (0-6); HEMATOCRIT 31.4 % (35.0-45.0); HEMOGLOBIN 10.4 g/dl (12.0-16.0); LYMPHOCYTES # (AUTO) 1.4 X10'3 (1.1-4.8); LYMPHOCYTES % (AUTO) 23.4 % (21-51); MEAN CORPUSCULAR HEMOGLOBIN 28.7 PG (27.0-31.0); MEAN CORPUSCULAR HGB CONC 33.1 g/dL (33.0-36.5); MEAN CORPUSCULAR VOLUME 86.8 FL (78-98); MEAN PLATELET VOLUME 8.3 FL (7.4-10.4); MONOCYTES # (AUTO) 0.8 X10'3 (0-0.9); MONOCYTES % (AUTO) 13.4 % (2-12); NEUTROPHILS # (AUTO) 3.6 X10'3 (1.8-7.7); NEUTROPHILS % (AUTO) 59.5 % (42-75); PLATELET COUNT 333 X10'3 (140-440); RED BLOOD COUNT 3.62 X10'6 (4.20-5.60); RED CELL DISTRIBUTION WIDTH 14.6 % (11.5-14.5)
[2019-09-05 06:30] VITALS: BP 129/59
--- NOTE | 2019-09-05 06:30 | NUR ---
Patient in room [facility] 348. I have received report from JASON Bragg and had the opportunity to ask questions and assume patient care.
--- NOTE | 2019-09-05 06:30 | NUR ---
Problems reprioritized. Patient report given, questions answered & plan of care reviewed with TONY. Addendum: 09/05/19 at 0649 by Judson Ortiz RN Amended: Links added.
[2019-09-05] MEDS ORDERED: atorvastatin 10mg tablet PO SCH (08:00)
[2019-09-05] MEDS ORDERED: potassium Cl 20 mEq SR tablet PO PRN (08:45)
[2019-09-05] MEDS ORDERED: magnesium Cl slow-release 64mg tablet PO PRN (08:45)
[2019-09-05] MEDS ORDERED: magnesium 4gm in 100ml NS 100 ML IV PRN (08:45)
[2019-09-05] MEDS ORDERED: potassium CL 10mEq/100ml bag 100 ML IV PRN (08:45)
[2019-09-05] MEDS ORDERED: magnesium 2GM in 50ml NS 50 ML IV PRN (08:45)
[2019-09-05] MEDS: furosemide 40mg/4ml inj IV SCH ×2 (09:29→20:09)
[2019-09-05] MEDS: HYDROchlorothiazide 25mg tablet PO SCH (09:29)
[2019-09-05] MEDS: atorvastatin 10mg tablet PO SCH (09:29)
[2019-09-05] MEDS: potassium Cl 20 mEq SR tablet PO PRN ×2 (09:29→13:26)
[2019-09-05] MEDS: heparin, porcine 5000 units/ml vial SQ SCH ×2 (09:29→20:09)
[2019-09-05] MEDS: lactobacillus rhamnosus 10,000 MMU CELLS/CAPSULE PO SCH ×2 (09:30→20:09)
[2019-09-05] MEDS: nystatin 15 GM powder TP SCH ×3 (09:41→21:00)
[2019-09-05 11:00] VITALS: BP 147/74
[2019-09-05 13:25] VITALS: BP 147/74
--- NOTE | 2019-09-05 18:20 | NUR ---
Problems reprioritized. Patient report given, questions answered & plan of care reviewed with JASON Bragg.
[2019-09-05 19:00] VITALS: BP 144/67
[2019-09-05] MEDS: acetaminophen 325mg tablet PO PRN (19:39)
[2019-09-06] VITALS: BP 143/79
[2019-09-06] MEDS: clindamycin 600mg/D5W 50ml 50 ML IV SCH ×4 (02:19→20:36)
[2019-09-06 05:10] LABS: BASOPHILS % (AUTO) 0.4 % (0-1); EOSINOPHILS # (AUTO) 0.2 X10'3 (0-0.9); EOSINOPHILS % (AUTO) 2.6 % (0-6); HEMATOCRIT 33.4 % (35.0-45.0); HEMOGLOBIN 11.1 g/dl (12.0-16.0); LYMPHOCYTES # (AUTO) 1.3 X10'3 (1.1-4.8); LYMPHOCYTES % (AUTO) 18.6 % (21-51); MEAN CORPUSCULAR HEMOGLOBIN 28.6 PG (27.0-31.0); MEAN CORPUSCULAR HGB CONC 33.1 g/dL (33.0-36.5); MEAN CORPUSCULAR VOLUME 86.4 FL (78-98); MEAN PLATELET VOLUME 8.3 FL (7.4-10.4); MONOCYTES # (AUTO) 0.9 X10'3 (0-0.9); MONOCYTES % (AUTO) 13.2 % (2-12); NEUTROPHILS # (AUTO) 4.6 X10'3 (1.8-7.7); NEUTROPHILS % (AUTO) 65.2 % (42-75); PLATELET COUNT 349 X10'3 (140-440); RED BLOOD COUNT 3.87 X10'6 (4.20-5.60); RED CELL DISTRIBUTION WIDTH 14.5 % (11.5-14.5); WHITE BLOOD COUNT 7.1 X10'3 (4.5-11.0)
[2019-09-06 05:22] LABS: ALBUMIN 2.5 G/DL (3.4-5.0); ANION GAP 6 (8-16); BLOOD UREA NITROGEN 21 MG/DL (7-18); BUN/CREATININE RATIO 14.1 (6.6-38.0); CALCIUM 8.9 MG/DL (8.5-10.1); CHLORIDE 101 MMOL/L (99-107); CREATININE 1.49 MG/DL (0.40-0.90); GLUCOSE 89 MG/DL (70-104); POTASSIUM 3.7 MMOL/L (3.5-5.1); SODIUM 140 MMOL/L (135-145); TOTAL CARBON DIOXIDE 33.3 MMOL/L (24-32); eGFR 35 ML/MIN
--- NOTE | 2019-09-06 06:25 | NUR ---
Patient in room [facility] 348. I have received report from JASON Bragg and had the opportunity to ask questions and assume patient care.
[2019-09-06 06:30] VITALS: BP 155/75
--- NOTE | 2019-09-06 06:34 | NUR ---
Problems reprioritized. Patient report given, questions answered & plan of care reviewed with TONY. Addendum: 09/06/19 at 0635 by Judson Ortiz RN Amended: Links added.
[2019-09-06] MEDS: furosemide 40mg/4ml inj IV SCH (07:46)
[2019-09-06] MEDS: lactobacillus rhamnosus 10,000 MMU CELLS/CAPSULE PO SCH ×2 (07:46→20:39)
[2019-09-06] MEDS: atorvastatin 10mg tablet PO SCH (07:47)
[2019-09-06] MEDS: HYDROchlorothiazide 25mg tablet PO SCH (07:47)
[2019-09-06] MEDS: heparin, porcine 5000 units/ml vial SQ SCH ×2 (07:48→20:42)
[2019-09-06] MEDS: nystatin 15 GM powder TP SCH ×3 (07:56→20:52)
[2019-09-06 11:00] VITALS: BP 126/67
[2019-09-06] MEDS: acetaminophen 325mg tablet PO PRN ×2 (11:11→20:39)
--- NOTE | 2019-09-06 18:50 | NUR ---
Problems reprioritized. Patient report given, questions answered & plan of care reviewed with Margarette Pfeiffer RN.
--- NOTE | 2019-09-06 18:55 | NUR ---
Patient in room [facility] 348. I have received report from TONY GOMEZ and had the opportunity to ask questions and assume patient care.
[2019-09-06 20:00] VITALS: BP 143/79
[2019-09-07] VITALS: BP 154/72
[2019-09-07] MEDS: clindamycin 600mg/D5W 50ml 50 ML IV SCH ×3 (02:04→15:12)
--- NOTE | 2019-09-07 06:20 | NUR ---
Problems reprioritized. Patient report given, questions answered & plan of care reviewed with NIKIA GOMEZ.
[2019-09-07 06:27] LABS: BASOPHILS % (AUTO) 0.4 % (0-1); EOSINOPHILS # (AUTO) 0.2 X10'3 (0-0.9); EOSINOPHILS % (AUTO) 2.5 % (0-6); HEMATOCRIT 35.8 % (35.0-45.0); HEMOGLOBIN 11.9 g/dl (12.0-16.0); LYMPHOCYTES # (AUTO) 1.2 X10'3 (1.1-4.8); LYMPHOCYTES % (AUTO) 16.6 % (21-51); MEAN CORPUSCULAR HEMOGLOBIN 28.6 PG (27.0-31.0); MEAN CORPUSCULAR HGB CONC 33.4 g/dL (33.0-36.5); MEAN CORPUSCULAR VOLUME 85.6 FL (78-98); MEAN PLATELET VOLUME 8.5 FL (7.4-10.4); MONOCYTES # (AUTO) 0.7 X10'3 (0-0.9); MONOCYTES % (AUTO) 10.1 % (2-12); NEUTROPHILS # (AUTO) 5.2 X10'3 (1.8-7.7); NEUTROPHILS % (AUTO) 70.4 % (42-75); PLATELET COUNT 366 X10'3 (140-440); RED BLOOD COUNT 4.18 X10'6 (4.20-5.60); RED CELL DISTRIBUTION WIDTH 14.1 % (11.5-14.5); WHITE BLOOD COUNT 7.4 X10'3 (4.5-11.0)
[2019-09-07 07:12] VITALS: BP 155/70
[2019-09-07] MEDS ORDERED: furosemide 40mg tablet PO SCH (08:00)
[2019-09-07] MEDS: nystatin 15 GM powder TP SCH ×2 (08:00→09:00)
[2019-09-07] MEDS ORDERED: lisinopril 5mg tablet PO SCH (08:10)
[2019-09-07 08:15] LABS: ALBUMIN 2.9 G/DL (3.4-5.0); ANION GAP 7 (8-16); BLOOD UREA NITROGEN 25 MG/DL (7-18); BUN/CREATININE RATIO 21.7 (6.6-38.0); CALCIUM 9.3 MG/DL (8.5-10.1); CHLORIDE 99 MMOL/L (99-107); CREATININE 1.15 MG/DL (0.40-0.90); GLUCOSE 97 MG/DL (70-104); POTASSIUM 4.2 MMOL/L (3.5-5.1); SODIUM 138 MMOL/L (135-145); TOTAL CARBON DIOXIDE 32.2 MMOL/L (24-32); eGFR 48 ML/MIN
[2019-09-07] MEDS: lactobacillus rhamnosus 10,000 MMU CELLS/CAPSULE PO SCH (08:32)
[2019-09-07] MEDS: HYDROchlorothiazide 25mg tablet PO SCH (08:33)
[2019-09-07] MEDS: atorvastatin 10mg tablet PO SCH (08:34)
[2019-09-07] MEDS: heparin, porcine 5000 units/ml vial SQ SCH (08:46)
[2019-09-07] MEDS ORDERED: CEPH250T PO (10:46)
[2019-09-07 11:55] VITALS: BP 139/71
--- NOTE | 2019-09-07 16:57 | NUR ---
PT DISCHARGED IN STABLE CONDITION. LEFT FACILITY IN TAXI. IV DC CANULA INTACT. ALL BELONGINGS IN HAND INCLUDING FWW. FOLLOW UP INSTRUCTIONS GIVEN, ALL QUESTIONS ANSWERED. Addendum: 09/07/19 at 1658 by Allison Diaz RN Amended: Links added.
== END 2019-09-07 16:30 | disposition home or self-care (01) | DRG 383 ==
LOC: ER 22:34 → ED HOLD 09-04 05:40 → SUR 3N 09-04 07:47
PROVIDERS: ADMIT Family Medicine; ATTEND Internal Medicine
DX: L03.115 Cellulitis of right lower limb (principal); I11.0 Hypertensive heart disease with heart failure; I27.81 Cor pulmonale (chronic); F20.9 Schizophrenia, unspecified; I50.813 Acute on chronic right heart failure; L03.116 Cellulitis of left lower limb; D63.8 Anemia in other chronic diseases classified elsewhere; R00.1 Bradycardia, unspecified; W18.39XA Other fall on same level, initial encounter; E78.5 Hyperlipidemia, unspecified; F17.210 Nicotine dependence, cigarettes, uncomplicated; J44.9 Chronic obstructive pulmonary disease, unspecified; R29.6 Repeated falls; Z79.899 Other long term (current) drug therapy; Z86.711 Personal history of pulmonary embolism; Z86.73 Personal history of transient ischemic attack (TIA), and cerebral infarction without residual deficits; Y93.89 Activity, other specified; Y92.89 Other specified places as the place of occurrence of the external cause; Y99.8 Other external cause status; Z71.6 Tobacco abuse counseling
CPT/HCPCS: 36415; 70450; 71045; 80048; 80053; 80305; 80320; 81001; 83605; 83735; 83880; 84145; 84443; 84484; 85025; 85610; 85730; 87040; 87081; 93005; 94640; 94760; 96365; 97110; 97116; 97162; 99285; G0378; J0713; J1644; J1940; J3490; J7030

== ENCOUNTER 2019-09-16 22:59 | Inpatient (IN) | payer MEDICAID ==
[~2019-09-16] VITALS: Ht 165.1 cm; Wt 106.0 kg
[~2019-09-16 22:59] MED LIST changes: +AMLO-314 PO; -AMLO5TAB4 PO; -ASPI-1071 PO; -ATOR10TA PO; +ATOR10TA70 PO; -CEFD300C3 PO; +CEPH250T PO; -FURO-149 PO; +FURO40TA4 PO; -HCTZ25T PO; +HYDR25TA4 PO; -METO25TA6 PO
[2019-09-17] MEDS ORDERED: normal saline 1000ML IV soln IV ONE (00:20)
[2019-09-17 00:59] LABS: BASOPHILS % (AUTO) 0.4 % (0-1); EOSINOPHILS # (AUTO) 0.2 X10'3 (0-0.9); EOSINOPHILS % (AUTO) 1.7 % (0-6); HEMATOCRIT 31.8 % (35.0-45.0); HEMOGLOBIN 10.6 g/dl (12.0-16.0); LYMPHOCYTES # (AUTO) 0.9 X10'3 (1.1-4.8); LYMPHOCYTES % (AUTO) 8.2 % (21-51); MEAN CORPUSCULAR HEMOGLOBIN 28.7 PG (27.0-31.0); MEAN CORPUSCULAR HGB CONC 33.2 g/dL (33.0-36.5); MEAN CORPUSCULAR VOLUME 86.4 FL (78-98); MEAN PLATELET VOLUME 8.4 FL (7.4-10.4); MONOCYTES # (AUTO) 0.8 X10'3 (0-0.9); MONOCYTES % (AUTO) 7.2 % (2-12); NEUTROPHILS # (AUTO) 9.5 X10'3 (1.8-7.7); NEUTROPHILS % (AUTO) 82.5 % (42-75); PLATELET COUNT 462 X10'3 (140-440); RED BLOOD COUNT 3.68 X10'6 (4.20-5.60); RED CELL DISTRIBUTION WIDTH 14.8 % (11.5-14.5); WHITE BLOOD COUNT 11.5 X10'3 (4.5-11.0)
[2019-09-17 01:10] LABS: ALANINE AMINOTRANSFERASE 34 U/L (12-78); ALBUMIN 2.6 G/DL (3.4-5.0); ALBUMIN/GLOBULIN RATIO 0.6 (1.1-1.5); ALKALINE PHOSPHATASE 149 IU/L (46-116); ANION GAP 5 (8-16); ASPARTATE AMINO TRANSFERASE 22 U/L (10-37); BILIRUBIN,TOTAL 0.2 MG/DL (0.1-1.0); BLOOD UREA NITROGEN 18 MG/DL (7-18); BUN/CREATININE RATIO 18.4 (6.6-38.0); CALCIUM 8.7 MG/DL (8.5-10.1); CHLORIDE 108 MMOL/L (99-107); CREATININE 0.98 MG/DL (0.40-0.90); GLUCOSE 101 MG/DL (70-104); MAGNESIUM 1.9 MG/DL (1.5-2.4); POTASSIUM 4.2 MMOL/L (3.5-5.1); SODIUM 141 MMOL/L (135-145); TOTAL CARBON DIOXIDE 27.9 MMOL/L (24-32); TOTAL PROTEIN 6.9 G/DL (6.4-8.2); eGFR 57 ML/MIN
[2019-09-17] MEDS ORDERED: BACDS PO (02:32)
[2019-09-17] MEDS ORDERED: METO25TA6 PO (04:23)
[2019-09-17] MEDS ORDERED: FLEC100T2 PO (04:23)
[2019-09-17] MEDS ORDERED: acetaminophen 325mg tablet PO PRN (04:55)
[2019-09-17] MEDS ORDERED: magnesium 4gm in 100ml NS 100 ML IV PRN (04:55)
[2019-09-17] MEDS ORDERED: ondansetron/PF 4mg/2ml inj IV PRN (04:55)
[2019-09-17] MEDS ORDERED: potassium CL 10mEq/100ml bag 100 ML IV PRN ×2 (04:55)
[2019-09-17] MEDS ORDERED: magnesium 2GM in 50ml NS 50 ML IV PRN (04:55)
[2019-09-17] MEDS ORDERED: magnesium Cl slow-release 64mg tablet PO PRN (04:55)
[2019-09-17] MEDS ORDERED: potassium Cl 20 mEq SR tablet PO PRN ×2 (04:55)
[2019-09-17] MEDS: K and/or MAG REPLACEMENT MC SCH ×2 (08:00→20:00)
[2019-09-17] MEDS: piperacillin/tazo 3.375gm/50ml 50 ML IV SCH ×3 (08:24→23:53)
[2019-09-17 09:13] LABS: CLARITY,URINE SLIGHTLY CLOUDY (Clear); COLOR,URINE YELLOW (Yellow); GLUCOSE, URINE NEGATIVE (Neg); KETONES,URINE NEGATIVE (Neg); LEUKOCYTE ESTERASE ,URINE SMALL (Neg); NITRITES, URINE NEGATIVE (Neg); OCCULT BLOOD,URINE MODERATE (Neg); PROTEIN,URINE TRACE mg/dl (Neg); UROBILINOGEN,URINE 0.2 E.U/dL (0.2-1.0)
[2019-09-17 09:17] LABS: UA COLLECTION TYPE CLN CATCH MIDSTREAM
[2019-09-17 09:24] LABS: URINE AMPHETAMINE SCREEN NEGATIVE (Neg); URINE BARBITUATE SCREEN NEGATIVE (Neg); URINE BENZODIAZEPINES SCREEN NEGATIVE (Neg); URINE CANNABINOID SCREEN NEGATIVE (Neg); URINE COCAINE SCREEN NEGATIVE (Neg); URINE METHADONE SCREEN NEGATIVE (Neg); URINE OPIATE SCREEN NEGATIVE (Neg); URINE PHENCYCLIDINE SCREEN NEGATIVE (Neg)
[2019-09-17 09:25] LABS: AMORPHOUS URATES 1+; BACTERIA,URINE 4+ /HPF (Neg); MUCUS STRANDS FEW /LPF (Neg); SQUAMOUS EPITHELIAL CELL,UR MANY /LPF (FEW)
[2019-09-17 09:26] LABS: YEAST FEW /HPF (NEGATIVE)
--- NOTE | 2019-09-17 10:03 | NUR ---
attmepted to call report, no rn assigned, charge unavailable, will call back. Addendum: 09/17/19 at 1004 by DIAMOND note by melinda
--- NOTE | 2019-09-17 10:15 | NUR ---
Patient in room ORTHO 4023B. I have received report from ELI GOMEZ IN ER and had the opportunity to ask questions and assume patient care.
--- NOTE | 2019-09-17 13:31 | NUR ---
PAGER ID: [phone] MESSAGE: NOEMI 7810-RE: MELANIE MONCADA RM [id number]...REC'D CALL FROM TELE, PT HAS BEEN HAVING 2-3 SEC PAUSES WITH HR IN THE 30'S BEFORE PAUSE THEN HR BACK TO LOW 100'S, BECOMING MORE FREQUENT, PT VITALS 132/75 HR 120 O2 97% NOW
[2019-09-17] MEDS: lactobacillus rhamnosus 10,000 MMU CELLS/CAPSULE PO SCH (16:06)
[2019-09-17] MEDS: atorvastatin 10mg tablet PO SCH (16:07)
[2019-09-17] MEDS: amLODIPine 5mg tablet PO SCH (16:07)
[2019-09-17] MEDS: normal saline 1000ml 1,000 ML IV SCH (16:10)
[2019-09-17 16:48] LABS: CREATINE KINASE 131 U/L (26-192)
[2019-09-17 17:00] VITALS: BP 159/73
--- NOTE | 2019-09-17 17:02 | NUR ---
PAGER ID: [phone] MESSAGE: NOEMI 5430-RE: MELANIE MONCADA [id number]...CK 131
--- NOTE | 2019-09-17 18:30 | NUR ---
Received report from Mariel GOMEZ. assumed care of patient.
--- NOTE | 2019-09-17 20:00 | NUR ---
Found cigarettes and key worker in patients purse. Confiscated from the patient. advised patient to keep any valdes into a locker. patient refused and stated that she would rather keep it on her.
[2019-09-17] MEDS: flecainide 50mg tablet PO SCH (20:05)
[2019-09-17] MEDS: methylPREDNISolone sod succ/PF 40mg inj. IV SCH (20:05)
[2019-09-17] MEDS: metoprolol tartrate 25mg tablet PO SCH (20:06)
[2019-09-17 22:00] VITALS: BP 118/55
[2019-09-17] MEDS: acetaminophen 325mg tablet PO PRN (22:24)
--- NOTE | 2019-09-17 23:00 | NUR ---
Telemetry called stating that patient has 2 1/2 pause and a 3 second pause on monitoring tech and went back to normal. Per telemetry, pt has been doing this occassionally throughout the day. Checked in on patient--asymptomatic, denies any chest pain. vital signs WNL. Magu is aware that patient has been doing this. will continue to monitor patient.
[2019-09-18] MEDS: normal saline 1000ml 1,000 ML IV SCH (01:45)
[2019-09-18 02:00] VITALS: BP 149/76
--- NOTE | 2019-09-18 02:00 | NUR ---
Telemetry called and notified that patient had four 3 second pauses and went back to normal on monitoring and evaluation advisor. Checked in on patient, asymptomatic, and vitals signs were WNL. MD aware. will continue to monitor patient.
--- NOTE | 2019-09-18 04:00 | NUR ---
tele notified 3 second pauses for patient. charge nurse aware. Check in on patient, pt denies any chest pain, and is asymptomatic. will continue to monitor patient.
[2019-09-18 06:00] VITALS: BP 150/71
--- NOTE | 2019-09-18 06:20 | NUR ---
Gave report to Mariana GOMEZ.
[2019-09-18 06:30] LABS: BASOPHILS % (AUTO) 0.1 % (0-1); EOSINOPHILS % (AUTO) 0 % (0-6); HEMATOCRIT 29.8 % (35.0-45.0); HEMOGLOBIN 9.7 g/dl (12.0-16.0); LYMPHOCYTES # (AUTO) 0.6 X10'3 (1.1-4.8); LYMPHOCYTES % (AUTO) 9.8 % (21-51); MEAN CORPUSCULAR HEMOGLOBIN 28.8 PG (27.0-31.0); MEAN CORPUSCULAR HGB CONC 32.6 g/dL (33.0-36.5); MEAN CORPUSCULAR VOLUME 88.4 FL (78-98); MEAN PLATELET VOLUME 8.3 FL (7.4-10.4); MONOCYTES # (AUTO) 0.2 X10'3 (0-0.9); MONOCYTES % (AUTO) 3.4 % (2-12); NEUTROPHILS # (AUTO) 5.7 X10'3 (1.8-7.7); NEUTROPHILS % (AUTO) 86.7 % (42-75); PLATELET COUNT 403 X10'3 (140-440); RED BLOOD COUNT 3.37 X10'6 (4.20-5.60); RED CELL DISTRIBUTION WIDTH 14.8 % (11.5-14.5); WHITE BLOOD COUNT 6.5 X10'3 (4.5-11.0)
[2019-09-18 06:38] LABS: ALBUMIN 2.2 G/DL (3.4-5.0); ANION GAP 7 (8-16); BLOOD UREA NITROGEN 15 MG/DL (7-18); CALCIUM 8.6 MG/DL (8.5-10.1); CHLORIDE 111 MMOL/L (99-107); CREATININE 1.07 MG/DL (0.40-0.90); GLUCOSE 114 MG/DL (70-104); MAGNESIUM 1.9 MG/DL (1.5-2.4); POTASSIUM 4.6 MMOL/L (3.5-5.1); SODIUM 142 MMOL/L (135-145); eGFR 52 ML/MIN
[2019-09-18] MEDS: K and/or MAG REPLACEMENT MC SCH ×2 (08:00→19:36)
[2019-09-18] MEDS ORDERED: furosemide 40mg tablet PO SCH (08:00)
[2019-09-18] MEDS: piperacillin/tazo 3.375gm/50ml 50 ML IV SCH (10:09)
[2019-09-18] MEDS: atorvastatin 10mg tablet PO SCH (10:09)
[2019-09-18] MEDS: lactobacillus rhamnosus 10,000 MMU CELLS/CAPSULE PO SCH (10:10)
[2019-09-18] MEDS: methylPREDNISolone sod succ/PF 40mg inj. IV SCH ×2 (10:10→17:41)
[2019-09-18] MEDS: metoprolol tartrate 25mg tablet PO SCH ×2 (10:10→19:36)
[2019-09-18] MEDS: pantoprazole 40mg Tablet.DR PO SCH (10:10)
[2019-09-18] MEDS: flecainide 50mg tablet PO SCH ×2 (10:11→19:36)
[2019-09-18] MEDS: amLODIPine 5mg tablet PO SCH (10:11)
[2019-09-18] MEDS: acetaminophen 325mg tablet PO PRN ×2 (10:18→17:55)
[2019-09-18 10:45] VITALS: BP 171/98
--- NOTE | 2019-09-18 13:00 | NUR ---
Page to vascular.
[2019-09-18] MEDS: albuterol 2.5 MG/3 ML nebule NEB SCH ×2 (14:00→21:30)
--- NOTE | 2019-09-18 17:45 | NUR ---
walked in and patients iv was out, Vanco still running. Canula intact
[2019-09-18 18:00] VITALS: BP 147/87
--- NOTE | 2019-09-18 18:25 | NUR ---
Received report from Mariana GOMEZ. assumed care of patient.
--- NOTE | 2019-09-18 18:28 | NUR ---
Problems reprioritized. Patient report given, questions answered & plan of care reviewed with Rosemary RN.
--- NOTE | 2019-09-18 18:30 | NUR ---
Called vascular to confirm studies were done. Report to be up soon.
[2019-09-18] MEDS ORDERED: VANCOMYCIN LEVEL IV ONE (19:30)
[2019-09-18 22:00] VITALS: BP 175/86
[2019-09-19 02:00] VITALS: BP 148/87
[2019-09-19] MEDS: albuterol 2.5 MG/3 ML nebule NEB SCH ×4 (02:27→20:13)
--- NOTE | 2019-09-19 03:07 | NUR ---
Left message with wound care to see patient.
[2019-09-19] MEDS: acetaminophen 325mg tablet PO PRN ×3 (04:00→21:54)
[2019-09-19 05:58] LABS: BASOPHILS # (AUTO) 0.1 X10'3 (0-0.2); BASOPHILS % (AUTO) 0.7 % (0-1); EOSINOPHILS % (AUTO) 0 % (0-6); HEMOGLOBIN 10.2 g/dl (12.0-16.0); LYMPHOCYTES # (AUTO) 1.1 X10'3 (1.1-4.8); LYMPHOCYTES % (AUTO) 10.5 % (21-51); MEAN CORPUSCULAR HEMOGLOBIN 28.9 PG (27.0-31.0); MEAN CORPUSCULAR HGB CONC 32.8 g/dL (33.0-36.5); MEAN CORPUSCULAR VOLUME 88.1 FL (78-98); MEAN PLATELET VOLUME 8.2 FL (7.4-10.4); MONOCYTES # (AUTO) 0.6 X10'3 (0-0.9); MONOCYTES % (AUTO) 5.9 % (2-12); NEUTROPHILS # (AUTO) 8.8 X10'3 (1.8-7.7); NEUTROPHILS % (AUTO) 82.9 % (42-75); PLATELET COUNT 434 X10'3 (140-440); RED BLOOD COUNT 3.53 X10'6 (4.20-5.60); RED CELL DISTRIBUTION WIDTH 14.5 % (11.5-14.5); WHITE BLOOD COUNT 10.6 X10'3 (4.5-11.0)
[2019-09-19 06:00] VITALS: BP 169/94
[2019-09-19 06:07] LABS: ALBUMIN 2.4 G/DL (3.4-5.0); ANION GAP 10 (8-16); BLOOD UREA NITROGEN 20 MG/DL (7-18); BUN/CREATININE RATIO 19.6 (6.6-38.0); CALCIUM 8.9 MG/DL (8.5-10.1); CHLORIDE 108 MMOL/L (99-107); CREATININE 1.02 MG/DL (0.40-0.90); GLUCOSE 102 MG/DL (70-104); POTASSIUM 4.4 MMOL/L (3.5-5.1); SODIUM 142 MMOL/L (135-145); eGFR 55 ML/MIN
--- NOTE | 2019-09-19 06:15 | NUR ---
Patient in room ORTHO 4023. I have received report from JASON Riley and had the opportunity to ask questions and assume patient care.
--- NOTE | 2019-09-19 06:19 | NUR ---
Gave report to Mariana GOMEZ. Addendum: 09/19/19 at 0619 by Rosemary Bella RN (Telemetry Nurse) Mariana Dominguez
[2019-09-19] MEDS: amLODIPine 5mg tablet PO SCH (07:49)
[2019-09-19] MEDS: atorvastatin 10mg tablet PO SCH (07:49)
[2019-09-19] MEDS: methylPREDNISolone sod succ/PF 40mg inj. IV SCH (07:49)
[2019-09-19] MEDS: lactobacillus rhamnosus 10,000 MMU CELLS/CAPSULE PO SCH (07:49)
[2019-09-19] MEDS: pantoprazole 40mg Tablet.DR PO SCH (07:49)
[2019-09-19] MEDS: metoprolol tartrate 25mg tablet PO SCH ×2 (07:50→19:07)
[2019-09-19] MEDS: flecainide 50mg tablet PO SCH ×2 (07:50→19:07)
[2019-09-19] MEDS: K and/or MAG REPLACEMENT MC SCH ×2 (07:55→19:12)
[2019-09-19 11:00] VITALS: BP 148/80
[2019-09-19] MEDS: CefTRIAXone/D5W-Rocephin 1gm 50 ML IV SCH (15:31)
[2019-09-19 18:00] VITALS: BP 171/95
--- NOTE | 2019-09-19 18:00 | NUR ---
Patient in room ORTHO 4023. I have received report from Mariana GOMEZ and had the opportunity to ask questions and assume patient care.
[2019-09-19] MEDS ORDERED: amLODIPine 5mg tablet PO ONE (18:05)
--- NOTE | 2019-09-19 18:08 | NUR ---
Dr. Neville notified of BP 171/91. New order noted for Norvasc 5mg PO x1 now and Norvasc 10mg PO daily to start on 09/20/19.
[2019-09-19 22:00] VITALS: BP 140/69
[2019-09-20] MEDS: albuterol 2.5 MG/3 ML nebule NEB SCH ×3 (02:14→14:17)
[2019-09-20 05:30] LABS: BASOPHILS # (AUTO) 0.1 X10'3 (0-0.2); BASOPHILS % (AUTO) 1.2 % (0-1); EOSINOPHILS # (AUTO) 0.1 X10'3 (0-0.9); EOSINOPHILS % (AUTO) 0.9 % (0-6); HEMATOCRIT 30.5 % (35.0-45.0); HEMOGLOBIN 10.1 g/dl (12.0-16.0); LYMPHOCYTES # (AUTO) 1.6 X10'3 (1.1-4.8); LYMPHOCYTES % (AUTO) 20.1 % (21-51); MEAN CORPUSCULAR HEMOGLOBIN 28.7 PG (27.0-31.0); MEAN CORPUSCULAR HGB CONC 33.2 g/dL (33.0-36.5); MEAN CORPUSCULAR VOLUME 86.6 FL (78-98); MEAN PLATELET VOLUME 7.6 FL (7.4-10.4); MONOCYTES # (AUTO) 0.7 X10'3 (0-0.9); MONOCYTES % (AUTO) 9.4 % (2-12); NEUTROPHILS # (AUTO) 5.3 X10'3 (1.8-7.7); NEUTROPHILS % (AUTO) 68.4 % (42-75); PLATELET COUNT 415 X10'3 (140-440); RED BLOOD COUNT 3.52 X10'6 (4.20-5.60); RED CELL DISTRIBUTION WIDTH 14.5 % (11.5-14.5); WHITE BLOOD COUNT 7.8 X10'3 (4.5-11.0)
[2019-09-20 05:56] LABS: ALBUMIN 2.5 G/DL (3.4-5.0); ANION GAP 5 (8-16); BLOOD UREA NITROGEN 21 MG/DL (7-18); BUN/CREATININE RATIO 18.9 (6.6-38.0); CALCIUM 8.8 MG/DL (8.5-10.1); CHLORIDE 109 MMOL/L (99-107); CREATININE 1.11 MG/DL (0.40-0.90); GLUCOSE 80 MG/DL (70-104); MAGNESIUM 1.9 MG/DL (1.5-2.4); SODIUM 142 MMOL/L (135-145); TOTAL CARBON DIOXIDE 27.9 MMOL/L (24-32); eGFR 49 ML/MIN
[2019-09-20 06:00] VITALS: BP 178/91
--- NOTE | 2019-09-20 06:30 | NUR ---
Patient in room ORTHO 4023. I have received report from JASON Oneil and had the opportunity to ask questions and assume patient care.
--- NOTE | 2019-09-20 06:48 | NUR ---
Problems reprioritized. Patient report given, questions answered & plan of care reviewed with Maritza GOMEZ.
[2019-09-20] MEDS: methylPREDNISolone sod succ/PF 40mg inj. IV SCH (07:44)
[2019-09-20] MEDS: lactobacillus rhamnosus 10,000 MMU CELLS/CAPSULE PO SCH (07:44)
[2019-09-20] MEDS: pantoprazole 40mg Tablet.DR PO SCH (07:44)
[2019-09-20] MEDS: CefTRIAXone/D5W-Rocephin 1gm 50 ML IV SCH (07:44)
[2019-09-20] MEDS: atorvastatin 10mg tablet PO SCH (07:44)
[2019-09-20] MEDS: metoprolol tartrate 25mg tablet PO SCH (07:45)
[2019-09-20] MEDS: flecainide 50mg tablet PO SCH (07:46)
[2019-09-20] MEDS ORDERED: amLODIPine 5mg tablet PO SCH (08:00)
[2019-09-20] MEDS: acetaminophen 325mg tablet PO PRN (08:07)
[2019-09-20 10:00] VITALS: BP 154/73
[2019-09-20] MEDS ORDERED: PANT40TA4 PO (10:46)
[2019-09-20] MEDS ORDERED: LACT1CAP26 PO (10:46)
[2019-09-20] MEDS ORDERED: CEFD300C3 PO (10:46)
[2019-09-20] MEDS ORDERED: ALBU8.5H8 IH (10:52)
[2019-09-20] MEDS ORDERED: PRED10TA23 PO (10:52)
--- NOTE | 2019-09-20 15:45 | NUR ---
Received discharge orders from Dr. Neville for pt to go home today. IV RFA dc'd with cannula intact. No redness/swelling at insertion site. Applied pressure and a bandaid over the site. Gave pt stored cigarettes in the medication room. Called in discharge prescriptions (x5) to [facility] on [address] per pts request. Reviewed discharge instructions and gave pt information received from Josefa in and reviewed follow up to be done in 2-3 days at the [facility]. Pt states she understands. Patient reported she needs a ride to home as she does not drive nor has a ride available. TC placed to LIZBETH Tinoco and was informed to get pt ready and Alejandrina will call [employer] to pick pt up. TC placed to Alejandrina at 1545, and was informed cab would filler picker the pt in the main lobby at 1600. TOSHIA Edmonds took pt down to main lobby via w/c to wait for [employer] which did not arrive until 1630. Pt transferred to cab and discharged at this time.
== END 2019-09-20 16:00 | disposition home or self-care (01) | DRG 720 ==
LOC: ER 23:00 → ED HOLD 09-17 04:54 → ORTHO 4S 09-17 10:45
PROVIDERS: ADMIT Internal Medicine; ATTEND Family Medicine
DX: A41.9 Sepsis, unspecified organism (principal); G93.41 Metabolic encephalopathy; F20.9 Schizophrenia, unspecified; I48.91 Unspecified atrial fibrillation; E78.5 Hyperlipidemia, unspecified; I10 Essential (primary) hypertension; J44.1 Chronic obstructive pulmonary disease with (acute) exacerbation; S00.31XA Abrasion of nose, initial encounter; L03.115 Cellulitis of right lower limb; L03.116 Cellulitis of left lower limb; I49.9 Cardiac arrhythmia, unspecified; N39.0 Urinary tract infection, site not specified; R29.6 Repeated falls; W18.39XA Other fall on same level, initial encounter; Y93.89 Activity, other specified; Y92.89 Other specified places as the place of occurrence of the external cause; Z91.81 History of falling; Y99.8 Other external cause status; Z86.73 Personal history of transient ischemic attack (TIA), and cerebral infarction without residual deficits
CPT/HCPCS: 36415; 70450; 70486; 71045; 80048; 80053; 80202; 80305; 81001; 82550; 83605; 83735; 84145; 85025; 87040; 87081; 93005; 93308; 93925; 93970; 94640; 94760; 96360; 97110; 97116; 97161; 97530; 99285; G0378; J0696; J2543; J2920; J3370; J7030

== ENCOUNTER 2019-09-22 06:45 | Emergency (ER) | payer MEDICAID ==
[~2019-09-22] VITALS: Ht 165.1 cm; Wt 90.0 kg
[~2019-09-22 06:45] MED LIST changes: +ALBU8.5H8 IH; +CEFD300C3 PO; -CEPH250T PO; +FLEC100T2 PO; -FURO40TA4 PO; +LACT1CAP26 PO; +METO25TA6 PO; +PANT40TA4 PO; +PRED10TA23 PO
[2019-09-22 07:50] LABS: BASOPHILS # (AUTO) 0.1 X10'3 (0-0.2); BASOPHILS % (AUTO) 0.6 % (0-1); EOSINOPHILS # (AUTO) 0.1 X10'3 (0-0.9); HEMATOCRIT 35.3 % (35.0-45.0); HEMOGLOBIN 11.6 g/dl (12.0-16.0); LYMPHOCYTES # (AUTO) 1.2 X10'3 (1.1-4.8); LYMPHOCYTES % (AUTO) 10.8 % (21-51); MEAN CORPUSCULAR HEMOGLOBIN 28.6 PG (27.0-31.0); MEAN CORPUSCULAR VOLUME 86.7 FL (78-98); MEAN PLATELET VOLUME 7.9 FL (7.4-10.4); MONOCYTES # (AUTO) 0.8 X10'3 (0-0.9); MONOCYTES % (AUTO) 6.8 % (2-12); NEUTROPHILS # (AUTO) 9.3 X10'3 (1.8-7.7); NEUTROPHILS % (AUTO) 80.8 % (42-75); PLATELET COUNT 459 X10'3 (140-440); RED BLOOD COUNT 4.07 X10'6 (4.20-5.60); WHITE BLOOD COUNT 11.5 X10'3 (4.5-11.0)
[2019-09-22 07:54] LABS: ALANINE AMINOTRANSFERASE 28 U/L (12-78); ALBUMIN/GLOBULIN RATIO 0.7 (1.1-1.5); ALKALINE PHOSPHATASE 146 IU/L (46-116); ANION GAP 6 (8-16); ASPARTATE AMINO TRANSFERASE 14 U/L (10-37); BILIRUBIN,TOTAL 0.2 MG/DL (0.1-1.0); BLOOD UREA NITROGEN 19 MG/DL (7-18); BUN/CREATININE RATIO 19.8 (6.6-38.0); CALCIUM 9.1 MG/DL (8.5-10.1); CHLORIDE 107 MMOL/L (99-107); CREATININE 0.96 MG/DL (0.40-0.90); GLUCOSE 100 MG/DL (70-104); POTASSIUM 3.8 MMOL/L (3.5-5.1); SODIUM 143 MMOL/L (135-145); TOTAL CARBON DIOXIDE 30.1 MMOL/L (24-32); TOTAL PROTEIN 7.2 G/DL (6.4-8.2); eGFR 59 ML/MIN
[2019-09-22 08:06] VITALS: BP 165/95
[2019-09-22] MEDS ORDERED: sulfamethoxazole/trimethoprim DS (800/160mg) tablet PO ONE (08:35)
[2019-09-22] MEDS ORDERED: acetaminophen 325mg tablet PO ONE (08:40)
== END 2019-09-22 08:52 | disposition home or self-care (01) ==
LOC: ER 06:45
DX: L03.116 Cellulitis of left lower limb (principal); L03.115 Cellulitis of right lower limb; R06.02 Shortness of breath; R41.82 Altered mental status, unspecified; J45.909 Unspecified asthma, uncomplicated; F20.9 Schizophrenia, unspecified; Z86.73 Personal history of transient ischemic attack (TIA), and cerebral infarction without residual deficits; Z60.2 Problems related to living alone; Z79.899 Other long term (current) drug therapy
CPT/HCPCS: 36415; 71045; 80053; 83880; 84484; 85025; 93005; 99284

== ENCOUNTER 2019-09-29 05:17 | Inpatient (IN) | payer MEDICAID ==
[~2019-09-29] VITALS: Ht 165.1 cm; Wt 109.0 kg
[2019-09-29] MEDS ORDERED: piperacillin/tazo 3.375gm/50ml 50 ML IV ONE (06:10)
[2019-09-29] MEDS ORDERED: vancomycin/NS 1 GM ADD-VANTAGE 250 ML IV ONE (06:10)
[2019-09-29 07:27] LABS: BASOPHILS # (AUTO) 0.1 X10'3 (0-0.2); BASOPHILS % (AUTO) 0.7 % (0-1); EOSINOPHILS # (AUTO) 0.1 X10'3 (0-0.9); HEMATOCRIT 33.2 % (35.0-45.0); HEMOGLOBIN 10.9 g/dl (12.0-16.0); LYMPHOCYTES % (AUTO) 9.5 % (21-51); MEAN CORPUSCULAR HGB CONC 32.7 g/dL (33.0-36.5); MEAN CORPUSCULAR VOLUME 85.6 FL (78-98); MEAN PLATELET VOLUME 8.4 FL (7.4-10.4); MONOCYTES # (AUTO) 0.9 X10'3 (0-0.9); MONOCYTES % (AUTO) 8.6 % (2-12); NEUTROPHILS # (AUTO) 8.2 X10'3 (1.8-7.7); NEUTROPHILS % (AUTO) 80.2 % (42-75); PLATELET COUNT 358 X10'3 (140-440); RED BLOOD COUNT 3.88 X10'6 (4.20-5.60); RED CELL DISTRIBUTION WIDTH 14.9 % (11.5-14.5); WHITE BLOOD COUNT 10.2 X10'3 (4.5-11.0)
[2019-09-29 07:29] LABS: URINE HCG NEGATIVE (NEG)
[2019-09-29 07:44] LABS: ALANINE AMINOTRANSFERASE 38 U/L (12-78); ALBUMIN 2.6 G/DL (3.4-5.0); ALBUMIN/GLOBULIN RATIO 0.6 (1.1-1.5); ALKALINE PHOSPHATASE 154 IU/L (46-116); ANION GAP 10 (8-16); ASPARTATE AMINO TRANSFERASE 21 U/L (10-37); BILIRUBIN,TOTAL 0.2 MG/DL (0.1-1.0); BLOOD UREA NITROGEN 13 MG/DL (7-18); BUN/CREATININE RATIO 14.9 (6.6-38.0); CALCIUM 8.5 MG/DL (8.5-10.1); CHLORIDE 108 MMOL/L (99-107); CREATININE 0.87 MG/DL (0.40-0.90); GLUCOSE 95 MG/DL (70-104); SODIUM 145 MMOL/L (135-145); TOTAL CARBON DIOXIDE 27.3 MMOL/L (24-32); TOTAL PROTEIN 6.8 G/DL (6.4-8.2); eGFR 66 ML/MIN
[2019-09-29 07:45] LABS: CLARITY,URINE CLEAR (Clear); COLOR,URINE YELLOW (Yellow); GLUCOSE, URINE NEGATIVE (Neg); KETONES,URINE NEGATIVE (Neg); LEUKOCYTE ESTERASE ,URINE NEGATIVE (Neg); NITRITES, URINE NEGATIVE (Neg); OCCULT BLOOD,URINE NEGATIVE (Neg); PROTEIN,URINE NEGATIVE (Neg); UROBILINOGEN,URINE 0.2 E.U/dL (0.2-1.0)
[2019-09-29 07:47] LABS: UA COLLECTION TYPE NON-SPECIFIED
[2019-09-29 07:51] LABS: MAGNESIUM 2.1 MG/DL (1.5-2.4)
[2019-09-29] MEDS ORDERED: morphine 4 MG/ML inj SYRINge IV ONE (08:05)
[2019-09-29] MEDS ORDERED: morphine 2 MG/ML inj. syringe IV PRN ×2 (08:35)
[2019-09-29] MEDS ORDERED: mag hydrox/Alum hydrox/simeth 30ml oral suspension PO PRN (08:35)
[2019-09-29] MEDS ORDERED: magnesium hydroxide 30ml (MOM) UD suspension PO PRN (08:35)
[2019-09-29] MEDS ORDERED: ondansetron/PF 4mg/2ml inj IV PRN (08:35)
[2019-09-29] MEDS ORDERED: acetaminophen 325mg tablet PO PRN (08:35)
[2019-09-29] MEDS ORDERED: HYDROcodone/acetaminophen 5mg/325mg tablet PO PRN (08:35)
--- NOTE | 2019-09-29 10:10 | NUR ---
Break RN; Cultures drawn, abx started. Pt resting with eyes closed on gurney.
--- NOTE | 2019-09-29 10:30 | NUR ---
Patient in room ORTHO 4021B. I have received report from MARCOS JAY RN and had the opportunity to ask questions and assume patient care.
[2019-09-29 10:50] VITALS: BP 157/101
[2019-09-29] MEDS ORDERED: FURO-150 PO (11:08)
[2019-09-29 13:45] VITALS: BP 138/72
--- NOTE | 2019-09-29 13:47 | NUR ---
PAGER ID: [phone] MESSAGE: NOEMI 5430-RE: MELANIE MONCADA [id number]...PTS HR IS DROPING INTO 30'S AND UP TO 120"S WITH 3 SEC PAUSES PER TELE, PT IS STABLE CURRENT VITALS ARE 138/72 HR119 RR20 95% O2 T 99.0
--- NOTE | 2019-09-29 14:12 | NUR ---
Dr. Malik patient Lena Pretty's HR is sinus tach now but tele monitor said she had so many 2 second pauses before that it equates to 21bpm's. Mariel is at lunch. Josephine [phone]
[2019-09-29] MEDS: furosemide 40mg/4ml inj IV SCH ×2 (16:15→21:49)
[2019-09-29] MEDS: cefazolin/dext.iso 2gm/100ml 100 ML IV SCH (16:22)
[2019-09-29 18:00] VITALS: BP 113/90
--- NOTE | 2019-09-29 18:36 | NUR ---
Problems reprioritized. Patient report given, questions answered & plan of care reviewed with GABI GOMEZ.
--- NOTE | 2019-09-29 18:38 | NUR ---
Patient in room ORTHO 4021. I have received report from Mariel GOMEZ and had the opportunity to ask questions and assume patient care.
--- NOTE | 2019-09-29 21:45 | NUR ---
Call from tele that patient had more 2 second pauses. Patient has been having them through out day. Vitals stable.
[2019-09-29 22:00] VITALS: BP 140/65
[2019-09-30] VITALS (7 sets, daily range): BP systolic 118–148; BP diastolic 50–75
[2019-09-30] MEDS: cefazolin/dext.iso 2gm/100ml 100 ML IV SCH ×4 (00:03→23:51)
--- NOTE | 2019-09-30 03:27 | NUR ---
Called from tele that patient is having 4 second pauses. MD called and aware. No new orders. Vitals stable. glass installer technician says she has pauses for about half an hour then stops having pauses for a few hours.
--- NOTE | 2019-09-30 06:24 | NUR ---
Problems reprioritized. Patient report given, questions answered & plan of care reviewed with Mariel GOMEZ.
[2019-09-30 06:26] LABS: BASOPHILS % (AUTO) 0.4 % (0-1); EOSINOPHILS # (AUTO) 0.1 X10'3 (0-0.9); EOSINOPHILS % (AUTO) 1.3 % (0-6); HEMATOCRIT 30.2 % (35.0-45.0); HEMOGLOBIN 10.1 g/dl (12.0-16.0); LYMPHOCYTES # (AUTO) 1.2 X10'3 (1.1-4.8); LYMPHOCYTES % (AUTO) 16.5 % (21-51); MEAN CORPUSCULAR HEMOGLOBIN 28.7 PG (27.0-31.0); MEAN CORPUSCULAR HGB CONC 33.4 g/dL (33.0-36.5); MEAN CORPUSCULAR VOLUME 85.7 FL (78-98); MEAN PLATELET VOLUME 8.2 FL (7.4-10.4); MONOCYTES # (AUTO) 0.8 X10'3 (0-0.9); MONOCYTES % (AUTO) 11.3 % (2-12); NEUTROPHILS # (AUTO) 5.2 X10'3 (1.8-7.7); NEUTROPHILS % (AUTO) 70.5 % (42-75); PLATELET COUNT 343 X10'3 (140-440); RED BLOOD COUNT 3.53 X10'6 (4.20-5.60); RED CELL DISTRIBUTION WIDTH 15.3 % (11.5-14.5); WHITE BLOOD COUNT 7.3 X10'3 (4.5-11.0)
[2019-09-30 06:41] LABS: ALBUMIN 2.3 G/DL (3.4-5.0); ANION GAP 8 (8-16); BLOOD UREA NITROGEN 13 MG/DL (7-18); BUN/CREATININE RATIO 11.5 (6.6-38.0); CALCIUM 8.5 MG/DL (8.5-10.1); CHLORIDE 108 MMOL/L (99-107); CREATININE 1.13 MG/DL (0.40-0.90); GLUCOSE 81 MG/DL (70-104); POTASSIUM 3.7 MMOL/L (3.5-5.1); SODIUM 147 MMOL/L (135-145); TOTAL CARBON DIOXIDE 31.1 MMOL/L (24-32); eGFR 48 ML/MIN
--- NOTE | 2019-09-30 06:47 | NUR ---
Patient in room ORTHO 4021B. I have received report from YANCY GOMEZ and had the opportunity to ask questions and assume patient care.
[2019-09-30] MEDS: enoxaparin 40mg/0.4ml syringe SUBCUT SCH (07:28)
[2019-09-30] MEDS: furosemide 40mg/4ml inj IV SCH ×2 (07:28→19:53)
[2019-09-30] MEDS ORDERED: PANT40TA4 PO (11:27)
[2019-09-30] MEDS: mineral oil/petrolatum, white cream 113gm jar TP SCH (15:10)
--- NOTE | 2019-09-30 15:15 | NUR ---
Wound care POC. Spoke with CRN on Ortho about pt and cellulitis. I am familiar with the patient as she was just discharged recently from the Ortho floor and has returned for cellulitis. Received report from CRN who states the skin is red and edematous and an area of intact scabbing opened with pt was working with PT today. Put in recommendations for tx over the weekend. Pt had blood flow study on previous admit in Aug 2019 and resulted showing adequate flow so she is appropriate to apply light compression to in order to help the cellulitis and edema. Will follow up with pt on Thursday.
--- NOTE | 2019-09-30 18:37 | NUR ---
Problems reprioritized. Patient report given, questions answered & plan of care reviewed with JASON Marinelli.
--- NOTE | 2019-09-30 19:00 | NUR ---
Patient in room ORTHO 4021. I have received report from Riana GOMEZ and had the opportunity to ask questions and assume patient care.
[2019-09-30] MEDS: acetaminophen 325mg tablet PO PRN (19:49)
--- NOTE | 2019-10-01 00:28 | NUR ---
I paged Dr. Nichole the outreach and education social worker hospitalist regarding the 4.59 second pause patient had around midnight tonight. She was asymptomatic and vitals as recorded. She has been having 2-3 second pauses since admit and in report we were told Cardio has seen patient in the past visits for same thing.
--- NOTE | 2019-10-01 01:00 | NUR ---
Dr Nichole called back and I informed him about the 5 second pause. He said that she would need a cardiac consult, I explained to DR. Nichole that DR. Malik thought that she needed a pacemaker placed, but the patient was resistant to it, and that cardiology would probably not want to place one anyway due to her high risk and her noncompliance. He suggested that we should talk with her about having her code status changed.
--- NOTE | 2019-10-01 01:51 | NUR ---
Telemetry called and reported a 7 second pause after having two 5 second pauses 2 minutes apart. Pt was asymptomatic and denied any chest pain she said she didn't notice anything wrong. I discussed that this is the reason why the doctor think she needs a pacemaker, I told her that it could be a possibility that these pauses can continue to increase and stop her heart indefinitely, she still was reticent about the pacemaker. I then asked her if she still wanted to be a full code, describing what that were to entail should she go into cardiac arrest, she said she wanted to remain a full code.
[2019-10-01] MEDS ORDERED: magnesium 2GM in 50ml NS 50 ML IV ONE (02:45)
[2019-10-01] MEDS ORDERED: DOPamine 400mg/D5W 250ml 250 ML IV SCH ×2 (02:55)
[2019-10-01 03:22] LABS: ALBUMIN 2.5 G/DL (3.4-5.0); ANION GAP 3 (8-16); BLOOD UREA NITROGEN 19 MG/DL (7-18); BUN/CREATININE RATIO 14.3 (6.6-38.0); CALCIUM 8.9 MG/DL (8.5-10.1); CHLORIDE 106 MMOL/L (99-107); CREATININE 1.33 MG/DL (0.40-0.90); GLUCOSE 92 MG/DL (70-104); MAGNESIUM 2.3 MG/DL (1.5-2.4); PHOSPHORUS 3.6 MG/DL (2.3-4.5); POTASSIUM 3.5 MMOL/L (3.5-5.1); SODIUM 144 MMOL/L (135-145); TOTAL CARBON DIOXIDE 35.4 MMOL/L (24-32); eGFR 40 ML/MIN
[2019-10-01 03:29] LABS: BASOPHILS % (AUTO) 0.6 % (0-1); EOSINOPHILS # (AUTO) 0.1 X10'3 (0-0.9); EOSINOPHILS % (AUTO) 2.4 % (0-6); HEMATOCRIT 32.4 % (35.0-45.0); HEMOGLOBIN 10.6 g/dl (12.0-16.0); LYMPHOCYTES # (AUTO) 1.3 X10'3 (1.1-4.8); LYMPHOCYTES % (AUTO) 21.7 % (21-51); MEAN CORPUSCULAR HGB CONC 32.9 g/dL (33.0-36.5); MEAN CORPUSCULAR VOLUME 85.1 FL (78-98); MEAN PLATELET VOLUME 8.1 FL (7.4-10.4); MONOCYTES # (AUTO) 0.8 X10'3 (0-0.9); MONOCYTES % (AUTO) 13.1 % (2-12); NEUTROPHILS # (AUTO) 3.8 X10'3 (1.8-7.7); NEUTROPHILS % (AUTO) 62.2 % (42-75); PLATELET COUNT 376 X10'3 (140-440); RED CELL DISTRIBUTION WIDTH 14.8 % (11.5-14.5); WHITE BLOOD COUNT 6.1 X10'3 (4.5-11.0)
--- NOTE | 2019-10-01 03:37 | NUR ---
DR Nichole, was called about the 7.5 second pause, and the increased frequency of the pauses, He consulted with the intensivists group and ordered the patient to be transferred to PCU on a dopamine drip. Report was given to the PCU nurse and patient was tranferred to Pcu via ortho bed.
[2019-10-01 04:00] VITALS: BP 146/70
--- NOTE | 2019-10-01 04:10 | NUR ---
INFORMED BY CLINICAL INFORMATICS PHYSICIAN TO DISCUSS DOPAMINE GTT ORDERED; MAY NEED ADDITIONAL ORDERS Addendum: 10/01/19 at 0418 by Abby Bryson RN DERECK CONTACTED, VITAL SIGNS DISCUSSED WITH , PATIENT TACHYCARDIC AT 107, BP 144/72, DC'D DOPAMINE GTT FOR NOW, FOLLOW ACLS PROTOCOL IF NEEDED FOR BRADYCARDIC PAUSES
[2019-10-01 06:00] VITALS: BP 145/88
--- NOTE | 2019-10-01 06:05 | NUR ---
Patient in room PCU 3014. I have received report from JASON Mora and had the opportunity to ask questions and assume patient care.
--- NOTE | 2019-10-01 06:09 | NUR ---
Problems reprioritized. Patient report given, questions answered & plan of care reviewed with HOLA GOMEZ.
--- NOTE | 2019-10-01 07:11 | NUR ---
patient having multiple long pauses on EKG, placed zoll just in case pacer pads are needed.
--- NOTE | 2019-10-01 07:16 | NUR ---
PAGER ID: [phone] MESSAGE: JASON Hester, [phone], [phone], Maria De Jesus, pt having long pauses on tele, 4.5 sec @0648, 5.98 sec @0652 and 7.18 sec@0653. placed zoll on patient in case pacer function is needed, currently sinus tach @105
[2019-10-01] MEDS: furosemide 40mg/4ml inj IV SCH ×2 (08:30→19:40)
[2019-10-01] MEDS: enoxaparin 40mg/0.4ml syringe SUBCUT SCH (08:30)
[2019-10-01] MEDS: mineral oil/petrolatum, white cream 113gm jar TP SCH (08:49)
[2019-10-01] MEDS: cefazolin/dext.iso 2gm/100ml 100 ML IV SCH ×2 (08:49→16:27)
[2019-10-01 11:00] VITALS: BP 146/81
--- NOTE | 2019-10-01 11:28 | NUR ---
Dr. Malik present with new orders: DC patients tele monitoring, transfer patient to Ortho/Neuro, and remove the external pacer pads from patient. Patient is adamantly refusing treatment. Will inform the Primary RN, Kacie Liriano of the new orders.
[2019-10-01 18:00] VITALS: BP 137/81
--- NOTE | 2019-10-01 18:19 | NUR ---
Problems reprioritized. Patient report given, questions answered & plan of care reviewed with JASON Costa.
--- NOTE | 2019-10-01 18:59 | NUR ---
Patient in room PCU 3014. I have received report from Kacie GOMEZ and had the opportunity to ask questions and assume patient care.
[2019-10-01] MEDS: lactobacillus rhamnosus 10,000 MMU CELLS/CAPSULE PO SCH (19:40)
[2019-10-01] MEDS: HYDROcodone/acetaminophen 10/325mg tab PO PRN (19:42)
[2019-10-01 22:00] VITALS: BP 126/62
[2019-10-02] MEDS: cefazolin/dext.iso 2gm/100ml 100 ML IV SCH ×3 (00:09→16:15)
[2019-10-02] MEDS: HYDROcodone/acetaminophen 10/325mg tab PO PRN ×2 (00:10→04:35)
[2019-10-02 02:00] VITALS: BP 150/80
[2019-10-02 05:29] LABS: ALBUMIN 2.5 G/DL (3.4-5.0); ANION GAP 4 (8-16); BLOOD UREA NITROGEN 17 MG/DL (7-18); BUN/CREATININE RATIO 14.8 (6.6-38.0); CALCIUM 8.6 MG/DL (8.5-10.1); CHLORIDE 103 MMOL/L (99-107); CREATININE 1.15 MG/DL (0.40-0.90); GLUCOSE 94 MG/DL (70-104); POTASSIUM 3.6 MMOL/L (3.5-5.1); SODIUM 141 MMOL/L (135-145); TOTAL CARBON DIOXIDE 34.2 MMOL/L (24-32); eGFR 48 ML/MIN
[2019-10-02 06:05] LABS: BASOPHILS % (AUTO) 0.3 % (0-1); EOSINOPHILS # (AUTO) 0.2 X10'3 (0-0.9); EOSINOPHILS % (AUTO) 3.1 % (0-6); HEMATOCRIT 32.7 % (35.0-45.0); HEMOGLOBIN 10.7 g/dl (12.0-16.0); LYMPHOCYTES % (AUTO) 18.5 % (21-51); MEAN CORPUSCULAR HEMOGLOBIN 28.2 PG (27.0-31.0); MEAN CORPUSCULAR HGB CONC 32.9 g/dL (33.0-36.5); MEAN CORPUSCULAR VOLUME 85.7 FL (78-98); MEAN PLATELET VOLUME 8.2 FL (7.4-10.4); MONOCYTES # (AUTO) 0.7 X10'3 (0-0.9); MONOCYTES % (AUTO) 12.1 % (2-12); NEUTROPHILS # (AUTO) 3.6 X10'3 (1.8-7.7); PLATELET COUNT 382 X10'3 (140-440); RED BLOOD COUNT 3.81 X10'6 (4.20-5.60); RED CELL DISTRIBUTION WIDTH 14.6 % (11.5-14.5); WHITE BLOOD COUNT 5.4 X10'3 (4.5-11.0)
[2019-10-02 07:00] VITALS: BP 168/77
--- NOTE | 2019-10-02 07:01 | NUR ---
Problems reprioritized. Patient report given, questions answered & plan of care reviewed with Mariana GOMEZ.
[2019-10-02] MEDS: lactobacillus rhamnosus 10,000 MMU CELLS/CAPSULE PO SCH ×2 (09:08→19:24)
[2019-10-02] MEDS: furosemide 40mg/4ml inj IV SCH ×2 (09:08→19:25)
[2019-10-02] MEDS: mineral oil/petrolatum, white cream 113gm jar TP SCH (09:11)
[2019-10-02] MEDS: enoxaparin 40mg/0.4ml syringe SUBCUT SCH (09:11)
[2019-10-02 11:00] VITALS: BP 164/67
[2019-10-02 15:00] VITALS: BP 136/91
[2019-10-02 18:00] VITALS: BP 139/63
--- NOTE | 2019-10-02 18:48 | NUR ---
Problems reprioritized. Patient report given, questions answered & plan of care reviewed with Clarice GOMEZ.
--- NOTE | 2019-10-02 18:51 | NUR ---
Patient in room PCU 3014. I have received report from Mariana GOMEZ and had the opportunity to ask questions and assume patient care.
[2019-10-02] MEDS: acetaminophen 325mg tablet PO PRN (19:25)
[2019-10-02 22:00] VITALS: BP 133/73
[2019-10-03] MEDS: cefazolin/dext.iso 2gm/100ml 100 ML IV SCH ×2 (00:10→08:13)
[2019-10-03 02:00] VITALS: BP 147/82
[2019-10-03 05:08] LABS: ALBUMIN 2.7 G/DL (3.4-5.0); ANION GAP 5 (8-16); BLOOD UREA NITROGEN 20 MG/DL (7-18); BUN/CREATININE RATIO 17.7 (6.6-38.0); CALCIUM 8.8 MG/DL (8.5-10.1); CHLORIDE 103 MMOL/L (99-107); CREATININE 1.13 MG/DL (0.40-0.90); GLUCOSE 100 MG/DL (70-104); POTASSIUM 3.9 MMOL/L (3.5-5.1); SODIUM 141 MMOL/L (135-145); eGFR 48 ML/MIN
[2019-10-03 05:18] LABS: BASOPHILS % (AUTO) 0.3 % (0-1); EOSINOPHILS # (AUTO) 0.2 X10'3 (0-0.9); EOSINOPHILS % (AUTO) 2.6 % (0-6); HEMATOCRIT 35.1 % (35.0-45.0); HEMOGLOBIN 11.6 g/dl (12.0-16.0); LYMPHOCYTES # (AUTO) 0.9 X10'3 (1.1-4.8); MEAN CORPUSCULAR HGB CONC 32.9 g/dL (33.0-36.5); MEAN CORPUSCULAR VOLUME 85.1 FL (78-98); MEAN PLATELET VOLUME 7.9 FL (7.4-10.4); MONOCYTES # (AUTO) 0.7 X10'3 (0-0.9); NEUTROPHILS # (AUTO) 4.7 X10'3 (1.8-7.7); NEUTROPHILS % (AUTO) 72.1 % (42-75); PLATELET COUNT 399 X10'3 (140-440); RED BLOOD COUNT 4.13 X10'6 (4.20-5.60); WHITE BLOOD COUNT 6.5 X10'3 (4.5-11.0)
--- NOTE | 2019-10-03 06:06 | NUR ---
Problems reprioritized. Patient report given, questions answered & plan of care reviewed with Mariana GOMEZ.
--- NOTE | 2019-10-03 06:24 | NUR ---
Patient in room PCU 3014. I have received report from Clarice GOMEZ and had the opportunity to ask questions and assume patient care.
[2019-10-03] MEDS: lactobacillus rhamnosus 10,000 MMU CELLS/CAPSULE PO SCH (08:05)
[2019-10-03] MEDS: enoxaparin 40mg/0.4ml syringe SUBCUT SCH (08:05)
[2019-10-03] MEDS: furosemide 40mg/4ml inj IV SCH (08:05)
[2019-10-03] MEDS: mineral oil/petrolatum, white cream 113gm jar TP SCH (08:24)
[2019-10-03 11:00] VITALS: BP 147/74
[2019-10-03] MEDS ORDERED: CEPH250T PO (11:30)
[2019-10-03] MEDS ORDERED: FURO40TA4 PO (11:30)
[2019-10-03] MEDS: acetaminophen 325mg tablet PO PRN (12:39)
--- NOTE | 2019-10-03 13:28 | NUR ---
Wound care POC. Arrived at bedside to assess wounds as requested in wound care consult. Pt discharged prior to charting the wound care. Treated RLE with oil emulsion to open areas, Eucerin to intact skin, wrapped with gauze roll and CAL for mild compression. Right knee with unstageable pressure wound with intact black eschar. Left leg presents with no open areas at this time. Pt tolerated procedure well. educated pt on pressure preventions, signs of infection and dressing care.
--- NOTE | 2019-10-03 13:36 | NUR ---
Patient was discharged home at 1251. Patient reviewed discharge instructions and packet before signing. Patient RX was called in to [facility] [employer] [facility] on [address], belongings sent home with patient, PIV removed with cannula intact. Patient was wheeled down to transport company and left with [facility] walker to assist to the home door. Correctional Officer Lieutenant was instructed to bring back walker after transport.
== END 2019-10-03 12:53 | disposition home or self-care (01) | DRG 194 ==
LOC: ER 05:18 → UNDOADMIN 08:31 → ED HOLD 08:31 → ORTHO 4S 11:50 → ED HOLD 11:50 → ORTHO 4S 09-30 10:56 → PCU 3S 10-01 03:35
PROVIDERS: ADMIT Internal Medicine; ATTEND Internal Medicine
DX: I50.813 Acute on chronic right heart failure (principal); L03.115 Cellulitis of right lower limb; E66.01 Morbid (severe) obesity due to excess calories; L03.116 Cellulitis of left lower limb; Z68.41 Body mass index [BMI] 40.0-44.9, adult; D64.9 Anemia, unspecified; F17.210 Nicotine dependence, cigarettes, uncomplicated; R55 Syncope and collapse; R29.6 Repeated falls; Z59.0 Homelessness; Z79.899 Other long term (current) drug therapy; Z86.73 Personal history of transient ischemic attack (TIA), and cerebral infarction without residual deficits
CPT/HCPCS: 36415; 70450; 71045; 80048; 80053; 81003; 81025; 83605; 83735; 83880; 84100; 84145; 84484; 85025; 87040; 87081; 93005; 96365; 96368; 96372; 97112; 97116; 97161; 97530; 99285; G0378; J1265; J1650; J1940; J2270; J2543; J3370; J3475

== ENCOUNTER 2019-10-14 03:28 | Inpatient (IN) | payer MEDICAID ==
[~2019-10-14] VITALS: Ht 165.1 cm; Wt 100.0 kg
[~2019-10-14 03:28] MED LIST changes: -ALBU8.5H8 IH; -CEFD300C3 PO; +CEPH250T PO; -FLEC100T2 PO; +FURO40TA4 PO; -HYDR25TA4 PO; -LACT1CAP26 PO; -METO25TA6 PO; -PRED10TA23 PO
[2019-10-14] MEDS ORDERED: TETanus/Pertussis (Acell)/Diphther VAC/PF (Tdap-Adult) 0.5ml syringe IMVAC ONE (03:35)
[2019-10-14 04:16] LABS: BASOPHILS # (AUTO) 0.1 X10'3 (0-0.2); BASOPHILS % (AUTO) 1.1 % (0-1); EOSINOPHILS # (AUTO) 0.2 X10'3 (0-0.9); EOSINOPHILS % (AUTO) 1.8 % (0-6); HEMATOCRIT 32.4 % (35.0-45.0); HEMOGLOBIN 10.5 g/dl (12.0-16.0); LYMPHOCYTES # (AUTO) 1.4 X10'3 (1.1-4.8); LYMPHOCYTES % (AUTO) 15.4 % (21-51); MEAN CORPUSCULAR HEMOGLOBIN 27.6 PG (27.0-31.0); MEAN CORPUSCULAR HGB CONC 32.4 g/dL (33.0-36.5); MEAN CORPUSCULAR VOLUME 85.3 FL (78-98); MONOCYTES # (AUTO) 0.9 X10'3 (0-0.9); MONOCYTES % (AUTO) 9.7 % (2-12); NEUTROPHILS # (AUTO) 6.6 X10'3 (1.8-7.7); PLATELET COUNT 508 X10'3 (140-440); RED CELL DISTRIBUTION WIDTH 15.4 % (11.5-14.5); WHITE BLOOD COUNT 9.1 X10'3 (4.5-11.0)
[2019-10-14 04:28] LABS: PARTIAL THROMBOPLASTIN TIME 29 SECONDS (22-32)
[2019-10-14 04:32] LABS: ALANINE AMINOTRANSFERASE 38 U/L (12-78); ALBUMIN 2.8 G/DL (3.4-5.0); ALBUMIN/GLOBULIN RATIO 0.6 (1.1-1.5); ALKALINE PHOSPHATASE 168 IU/L (46-116); ANION GAP 6 (8-16); ASPARTATE AMINO TRANSFERASE 18 U/L (10-37); BILIRUBIN,TOTAL 0.2 MG/DL (0.1-1.0); BLOOD UREA NITROGEN 18 MG/DL (7-18); BUN/CREATININE RATIO 20.2 (6.6-38.0); CALCIUM 8.6 MG/DL (8.5-10.1); CHLORIDE 109 MMOL/L (99-107); CREATININE 0.89 MG/DL (0.40-0.90); GLUCOSE 97 MG/DL (70-104); MAGNESIUM 1.9 MG/DL (1.5-2.4); POTASSIUM 3.9 MMOL/L (3.5-5.1); SODIUM 143 MMOL/L (135-145); TOTAL CARBON DIOXIDE 27.8 MMOL/L (24-32); TOTAL PROTEIN 7.2 G/DL (6.4-8.2); eGFR 64 ML/MIN
[2019-10-14] MEDS ORDERED: normal saline 1000ml 1,000 ML IV ONE (04:40)
[2019-10-14] MEDS ORDERED: normal saline 1000ML IV soln IVB ONE (04:45)
[2019-10-14 05:13] LABS: CLARITY,URINE CLEAR (Clear); COLOR,URINE YELLOW (Yellow); GLUCOSE, URINE NEGATIVE (Neg); KETONES,URINE NEGATIVE (Neg); LEUKOCYTE ESTERASE ,URINE NEGATIVE (Neg); NITRITES, URINE NEGATIVE (Neg); OCCULT BLOOD,URINE NEGATIVE (Neg); PROTEIN,URINE 30 mg/dl (Neg); UA COLLECTION TYPE STRAIGHT CATH; UROBILINOGEN,URINE 0.2 E.U/dL (0.2-1.0)
[2019-10-14 05:31] LABS: BACTERIA,URINE FEW /HPF (Neg); COARSE GRANULAR CAST 0-3 /LPF (NEGATIVE); HYALINE CASTS 0-3 /LPF (NEGATIVE); MUCUS STRANDS FEW /LPF (Neg); RBC,URINE NONE SEEN /HPF (0-2); SQUAMOUS EPITHELIAL CELL,UR NONE SEEN /LPF (FEW); WBC CLUMPS,URINE FEW /HPF (NEGATIVE)
[2019-10-14] MEDS ORDERED: ipratropium/albuterol 3ml nebule NEB ONE (06:50)
--- NOTE | 2019-10-14 07:22 | NUR ---
RT at bedside
--- NOTE | 2019-10-14 08:00 | NUR ---
Dr Hernandez and Navi at bedside
[2019-10-14] MEDS ORDERED: magnesium hydroxide 30ml (MOM) UD suspension PO PRN (08:30)
[2019-10-14] MEDS ORDERED: ondansetron/PF 4mg/2ml inj IV PRN (08:30)
[2019-10-14] MEDS ORDERED: HYDROcodone/acetaminophen 10/325mg tab PO PRN (08:30)
[2019-10-14] MEDS ORDERED: mag hydrox/Alum hydrox/simeth 30ml oral suspension PO PRN (08:30)
[2019-10-14] MEDS ORDERED: HYDROcodone/acetaminophen 5mg/325mg tablet PO PRN (08:30)
[2019-10-14] MEDS ORDERED: potassium Cl 20 mEq SR tablet PO PRN ×2 (08:30)
[2019-10-14] MEDS ORDERED: acetaminophen 325mg tablet PO PRN (08:30)
[2019-10-14] MEDS ORDERED: magnesium 4gm in 100ml NS 100 ML IV PRN (08:30)
[2019-10-14] MEDS ORDERED: magnesium 2GM in 50ml NS 50 ML IV PRN (08:30)
[2019-10-14] MEDS ORDERED: potassium CL 10mEq/100ml bag 100 ML IV PRN ×2 (08:30)
[2019-10-14] MEDS: clindamycin 600mg/D5W 50ml 50 ML IV SCH ×3 (08:56→21:37)
[2019-10-14] MEDS: normal saline 1000ml 1,000 ML IV SCH ×2 (08:56→11:43)
--- NOTE | 2019-10-14 09:42 | NUR ---
received report from RUBBER TRIMMER. Await pt to room 1614q
[2019-10-14 10:45] VITALS: BP 145/78
--- NOTE | 2019-10-14 11:13 | NUR ---
PAGER ID: [phone] MESSAGE: Yolanda rodas [phone] re Lena Pretty in 4023b- received call from tele, pt had a 2.61 sec pause and sinus arrhythmia. Also happened on prior admit and was transferred to tele.
[2019-10-14] MEDS: piperacillin/tazo 3.375gm/50ml 50 ML IV SCH ×2 (11:44→16:46)
--- NOTE | 2019-10-14 12:22 | NUR ---
gave report to alexandra Hester. Pt to transfer to 5649b
[2019-10-14 12:40] VITALS: BP 115/54
--- NOTE | 2019-10-14 12:40 | NUR ---
Patient transferred to room 3012B from ortho unit. Patient transferred to bed, oriented to room and call light. IV NS and abx infusing at MD ordered rate. Patient sleepy but wakes to voice, alert and oriented to person/place and situation. Admit VS taken at this time. Patient has no complaints, will continue to monitor.
[2019-10-14 15:00] VITALS: BP 125/67
[2019-10-14 18:00] VITALS: BP 134/65
--- NOTE | 2019-10-14 18:37 | NUR ---
Problems reprioritized. Patient report given, questions answered & plan of care reviewed with Yves GOMEZ.
--- NOTE | 2019-10-14 19:00 | NUR ---
Patient in room PCU 3012. I have received report from am rn and had the opportunity to ask questions and assume patient care.
[2019-10-14] MEDS: K and/or MAG REPLACEMENT MC SCH (20:00)
[2019-10-14] MEDS ORDERED: furosemide 40mg tablet PO SCH (20:00)
[2019-10-14] MEDS: lactobacillus rhamnosus 10,000 MMU CELLS/CAPSULE PO SCH (21:38)
[2019-10-14 22:00] VITALS: BP 128/76
[2019-10-15] VITALS (8 sets, daily range): BP systolic 137–177; BP diastolic 68–102
[2019-10-15] MEDS: piperacillin/tazo 3.375gm/50ml 50 ML IV SCH ×4 (01:00→23:46)
[2019-10-15] MEDS: clindamycin 600mg/D5W 50ml 50 ML IV SCH ×4 (02:29→19:21)
[2019-10-15] MEDS: normal saline 1000ml 1,000 ML IV SCH ×3 (04:29→19:22)
[2019-10-15 05:28] LABS: BASOPHILS % (AUTO) 0.2 % (0-1); EOSINOPHILS # (AUTO) 0.1 X10'3 (0-0.9); EOSINOPHILS % (AUTO) 1.7 % (0-6); HEMATOCRIT 29.2 % (35.0-45.0); HEMOGLOBIN 9.4 g/dl (12.0-16.0); LYMPHOCYTES # (AUTO) 1.2 X10'3 (1.1-4.8); LYMPHOCYTES % (AUTO) 16.5 % (21-51); MEAN CORPUSCULAR HEMOGLOBIN 27.3 PG (27.0-31.0); MEAN CORPUSCULAR HGB CONC 32.2 g/dL (33.0-36.5); MEAN CORPUSCULAR VOLUME 84.8 FL (78-98); MEAN PLATELET VOLUME 8.1 FL (7.4-10.4); MONOCYTES # (AUTO) 0.8 X10'3 (0-0.9); MONOCYTES % (AUTO) 11.2 % (2-12); NEUTROPHILS # (AUTO) 5.1 X10'3 (1.8-7.7); NEUTROPHILS % (AUTO) 70.4 % (42-75); PLATELET COUNT 392 X10'3 (140-440); RED BLOOD COUNT 3.44 X10'6 (4.20-5.60); RED CELL DISTRIBUTION WIDTH 15.7 % (11.5-14.5); WHITE BLOOD COUNT 7.2 X10'3 (4.5-11.0)
[2019-10-15 05:36] LABS: ALANINE AMINOTRANSFERASE 26 U/L (12-78); ALBUMIN 2.3 G/DL (3.4-5.0); ALBUMIN/GLOBULIN RATIO 0.6 (1.1-1.5); ALKALINE PHOSPHATASE 144 IU/L (46-116); ANION GAP 5 (8-16); ASPARTATE AMINO TRANSFERASE 14 U/L (10-37); BILIRUBIN,TOTAL 0.3 MG/DL (0.1-1.0); BLOOD UREA NITROGEN 14 MG/DL (7-18); BUN/CREATININE RATIO 13.1 (6.6-38.0); CALCIUM 8.2 MG/DL (8.5-10.1); CHLORIDE 110 MMOL/L (99-107); CREATININE 1.07 MG/DL (0.40-0.90); GLUCOSE 80 MG/DL (70-104); POTASSIUM 4.1 MMOL/L (3.5-5.1); SODIUM 143 MMOL/L (135-145); TOTAL CARBON DIOXIDE 27.6 MMOL/L (24-32); TOTAL PROTEIN 6.2 G/DL (6.4-8.2); eGFR 52 ML/MIN
--- NOTE | 2019-10-15 06:00 | NUR ---
Patient in room PCU 3012. I have received report from Yves GOMEZ and had the opportunity to ask questions and assume patient care.
--- NOTE | 2019-10-15 06:25 | NUR ---
Called NOC partner integration planner MD Temple regarding episode of asystole. Was advised to notify Day . Pagevan Mcelroy MD regarding episode of asystole. PAGER ID: [phone] MESSAGE: [id number] Kymberly Pretyt Gulshan36 Pt. had episode of 6 second asystole. Asymptomatic. Pls. advise. Shannan [facility] [phone]
[2019-10-15] MEDS: amLODIPine 5mg tablet PO SCH (07:40)
[2019-10-15] MEDS: atorvastatin 10mg tablet PO SCH (07:40)
[2019-10-15] MEDS: lactobacillus rhamnosus 10,000 MMU CELLS/CAPSULE PO SCH ×2 (07:40→19:20)
[2019-10-15] MEDS: pantoprazole 40mg Tablet.DR PO SCH (07:40)
[2019-10-15] MEDS: enoxaparin 40mg/0.4ml syringe SQ SCH (07:41)
[2019-10-15] MEDS: K and/or MAG REPLACEMENT MC SCH ×2 (07:58→19:21)
--- NOTE | 2019-10-15 10:00 | NUR ---
MD at bedside to discuss the need of pacemaker with patient. Patient seemed anxious and overwhelmed. Offered to discuss with patient further. Patient repeatedly mentions loved ones who have . She states that she no longer has any close relatives. She also states " I haven't been the same since my of 37 years in 2012" She repeatedly talks about her belief that it's up to "Him" when she goes and she will be reunited with her loved ones in [facility]. In regards to resuscitation, she says "Maybe just once, but after that, I don't think I'd want it anymore." She reminisced when her late was at our hospital and was resuscitated thrice, stating "They brought him back and he lived another 10 months before they had to do it again, then he passed 4 days later." I delved further and asked the patient some personal questions in regards to what could be holding her from making the decision of having a pacemaker placed. I asked if not having anymore close relatives left and having 3 late husbands affected the decision to have a pacemaker to prolong her life to which she answered yes. I asked if witnessing her resuscitated thrice was also a factor in her decision making; she answered yes. I asked if his quality of life after the resuscitation was another factor; and she said yes. She states "I am happy to be on this Earth and if my limbs still work and the Lord still wants me here, then I'll be here. But if He calls me back, then that's it." I informed the patient that advanced directives are not black and white and she can make her wishes clear on what she would like to be done in the event of cardiac arrest. I have provided the patient with educational materials (handouts) on pacemaker implantation and what after care she can expect if she chooses to proceed with the procedure. I've also provided her with handouts on Advanced Directives if she opts to further discuss that with the MD. Patient will be provided with ample time to come to a decision.
[2019-10-15] MEDS: hydrALAZINE 20mg/ml inj. IV PRN (16:59)
--- NOTE | 2019-10-15 18:20 | NUR ---
Received report from Cassie GOMEZ. assumed care of patient.
--- NOTE | 2019-10-15 18:24 | NUR ---
Problems reprioritized. Patient report given, questions answered & plan of care reviewed with Rosemary RN.
--- NOTE | 2019-10-15 19:00 | NUR ---
change patients wound dressings.
[2019-10-16] VITALS (10 sets, daily range): BP systolic 101–200; BP diastolic 81–127
[2019-10-16] MEDS: clindamycin 600mg/D5W 50ml 50 ML IV SCH ×4 (01:50→19:17)
[2019-10-16] MEDS: hydrALAZINE 20mg/ml inj. IV PRN ×2 (02:14→17:40)
--- NOTE | 2019-10-16 03:00 | NUR ---
Blood pressure at 0200 was 181/90. administered hydralazine. rechecked it and it was 167/83. Charge nurse, Felicia martin. will continue to monitor patient.
[2019-10-16 06:19] LABS: BASOPHILS % (AUTO) 0.2 % (0-1); EOSINOPHILS # (AUTO) 0.1 X10'3 (0-0.9); EOSINOPHILS % (AUTO) 1.2 % (0-6); HEMATOCRIT 30.7 % (35.0-45.0); HEMOGLOBIN 10.1 g/dl (12.0-16.0); LYMPHOCYTES # (AUTO) 0.8 X10'3 (1.1-4.8); LYMPHOCYTES % (AUTO) 8.6 % (21-51); MEAN CORPUSCULAR HEMOGLOBIN 27.6 PG (27.0-31.0); MEAN CORPUSCULAR HGB CONC 32.9 g/dL (33.0-36.5); MEAN CORPUSCULAR VOLUME 83.8 FL (78-98); MEAN PLATELET VOLUME 8.1 FL (7.4-10.4); NEUTROPHILS # (AUTO) 7.7 X10'3 (1.8-7.7); PLATELET COUNT 398 X10'3 (140-440); RED BLOOD COUNT 3.66 X10'6 (4.20-5.60); RED CELL DISTRIBUTION WIDTH 15.5 % (11.5-14.5); WHITE BLOOD COUNT 9.7 X10'3 (4.5-11.0)
--- NOTE | 2019-10-16 06:27 | NUR ---
Gave report to Itezl GOMEZ
--- NOTE | 2019-10-16 06:29 | NUR ---
Patient in room PCU 3012B. I have received report from Rosemary GOMEZ and had the opportunity to ask questions and assume patient care.
[2019-10-16 06:48] LABS: ALANINE AMINOTRANSFERASE 25 U/L (12-78); ALBUMIN 2.5 G/DL (3.4-5.0); ALBUMIN/GLOBULIN RATIO 0.6 (1.1-1.5); ALKALINE PHOSPHATASE 149 IU/L (46-116); ANION GAP 12 (8-16); ASPARTATE AMINO TRANSFERASE 15 U/L (10-37); BILIRUBIN,TOTAL 0.5 MG/DL (0.1-1.0); BLOOD UREA NITROGEN 11 MG/DL (7-18); BUN/CREATININE RATIO 11.6 (6.6-38.0); CALCIUM 8.3 MG/DL (8.5-10.1); CHLORIDE 107 MMOL/L (99-107); CREATININE 0.95 MG/DL (0.40-0.90); GLUCOSE 90 MG/DL (70-104); MAGNESIUM 1.8 MG/DL (1.5-2.4); POTASSIUM 3.7 MMOL/L (3.5-5.1); SODIUM 143 MMOL/L (135-145); TOTAL CARBON DIOXIDE 24.2 MMOL/L (24-32); TOTAL PROTEIN 6.7 G/DL (6.4-8.2); eGFR 59 ML/MIN
[2019-10-16] MEDS: lactobacillus rhamnosus 10,000 MMU CELLS/CAPSULE PO SCH ×2 (07:16→19:14)
[2019-10-16] MEDS: pantoprazole 40mg Tablet.DR PO SCH (07:16)
[2019-10-16] MEDS: amLODIPine 5mg tablet PO SCH (07:16)
[2019-10-16] MEDS: atorvastatin 10mg tablet PO SCH (07:16)
[2019-10-16] MEDS: enoxaparin 40mg/0.4ml syringe SQ SCH (07:16)
[2019-10-16] MEDS: K and/or MAG REPLACEMENT MC SCH ×2 (07:23→20:00)
--- NOTE | 2019-10-16 08:00 | NUR ---
Patient refused standing for orthostatic vitals. Supine and sitting done
[2019-10-16] MEDS: piperacillin/tazo 3.375gm/50ml 50 ML IV SCH ×3 (08:43→23:52)
[2019-10-16] MEDS ORDERED: amLODIPine 5mg tablet PO ONE (08:55)
[2019-10-16] MEDS: normal saline 1000ml 1,000 ML IV SCH (10:29)
--- NOTE | 2019-10-16 12:54 | NUR ---
paged Dr Mcelroy PAGER ID: [phone] MESSAGE: Itzel manley [phone]. RE Kymberly Pretty 3012B. WADE that telecommunications project manager reported to me that patient did have a 1.9 second pause during shift change this AM.
--- NOTE | 2019-10-16 18:12 | NUR ---
Patient in room PCU 3012. I have received report from JASON Robbins and had the opportunity to ask questions and assume patient care.
--- NOTE | 2019-10-16 18:21 | NUR ---
Problems reprioritized. Patient report given, questions answered & plan of care reviewed with Marlen GOMEZ.
[2019-10-16] MEDS: acetaminophen 325mg tablet PO PRN (19:17)
[2019-10-16] MEDS ORDERED: furosemide 40mg/4ml inj IV ONE (22:45)
[2019-10-17] VITALS (7 sets, daily range): BP systolic 147–189; BP diastolic 69–94
--- NOTE | 2019-10-17 00:07 | NUR ---
Spoke with Windy at approximately 2330 about patients bibasilar crackles, sob, wheezing and he adivsed to stop NS @ 100 mL/hr and administer Lasix 40 mg one time. Will continue to monitor.
--- NOTE | 2019-10-17 00:11 | NUR ---
Patient refused her orthostatic vital signs. Of note, this patient seems to be fluid overloaded with SOB, pitting edema bilat legs and hands, as well as bibasilar crackles in lungs. Windy was informed, ordered to DC NS @ 100 mL/hr and administer 40 mg Lasix one time dose. Addendum: 10/17/19 at 0014 by Marlen Brambila RN Amended: Links added.
--- NOTE | 2019-10-17 01:53 | NUR ---
Spoke with Dr. Temple about patient's cardiac pauses. He is aware, no orders at this time. Patient refuses to get a pacemaker.
[2019-10-17] MEDS: hydrALAZINE 20mg/ml inj. IV PRN ×2 (02:33→11:42)
[2019-10-17] MEDS: acetaminophen 325mg tablet PO PRN ×2 (02:38→19:10)
[2019-10-17] MEDS: clindamycin 600mg/D5W 50ml 50 ML IV SCH ×4 (03:00→19:11)
[2019-10-17 05:58] LABS: BASOPHILS % (AUTO) 0.2 % (0-1); EOSINOPHILS # (AUTO) 0.1 X10'3 (0-0.9); EOSINOPHILS % (AUTO) 1.2 % (0-6); HEMATOCRIT 32.4 % (35.0-45.0); HEMOGLOBIN 10.6 g/dl (12.0-16.0); LYMPHOCYTES # (AUTO) 0.8 X10'3 (1.1-4.8); LYMPHOCYTES % (AUTO) 10.2 % (21-51); MEAN CORPUSCULAR HEMOGLOBIN 27.5 PG (27.0-31.0); MEAN CORPUSCULAR HGB CONC 32.9 g/dL (33.0-36.5); MEAN CORPUSCULAR VOLUME 83.7 FL (78-98); MONOCYTES # (AUTO) 0.8 X10'3 (0-0.9); MONOCYTES % (AUTO) 10.8 % (2-12); NEUTROPHILS % (AUTO) 77.6 % (42-75); PLATELET COUNT 400 X10'3 (140-440); RED BLOOD COUNT 3.87 X10'6 (4.20-5.60); RED CELL DISTRIBUTION WIDTH 15.7 % (11.5-14.5); WHITE BLOOD COUNT 7.8 X10'3 (4.5-11.0)
--- NOTE | 2019-10-17 06:00 | NUR ---
Problems reprioritized. Patient report given, questions answered & plan of care reviewed with JASON Robbins.
--- NOTE | 2019-10-17 06:23 | NUR ---
Patient in room PCU 3012B. I have received report from Marlen GOMEZ and had the opportunity to ask questions and assume patient care.
[2019-10-17 06:25] LABS: ALANINE AMINOTRANSFERASE 27 U/L (12-78); ALBUMIN 2.6 G/DL (3.4-5.0); ALBUMIN/GLOBULIN RATIO 0.6 (1.1-1.5); ALKALINE PHOSPHATASE 156 IU/L (46-116); ANION GAP 9 (8-16); ASPARTATE AMINO TRANSFERASE 16 U/L (10-37); BILIRUBIN,TOTAL 0.4 MG/DL (0.1-1.0); BLOOD UREA NITROGEN 13 MG/DL (7-18); BUN/CREATININE RATIO 11.9 (6.6-38.0); CHLORIDE 107 MMOL/L (99-107); CREATININE 1.09 MG/DL (0.40-0.90); GLUCOSE 101 MG/DL (70-104); MAGNESIUM 1.9 MG/DL (1.5-2.4); POTASSIUM 3.4 MMOL/L (3.5-5.1); SODIUM 145 MMOL/L (135-145); TOTAL CARBON DIOXIDE 28.6 MMOL/L (24-32); TOTAL PROTEIN 7.2 G/DL (6.4-8.2); eGFR 51 ML/MIN
[2019-10-17] MEDS: lactobacillus rhamnosus 10,000 MMU CELLS/CAPSULE PO SCH ×2 (07:56→19:10)
[2019-10-17] MEDS: amLODIPine 5mg tablet PO SCH (07:56)
[2019-10-17] MEDS: atorvastatin 10mg tablet PO SCH (07:56)
[2019-10-17] MEDS: pantoprazole 40mg Tablet.DR PO SCH (07:56)
[2019-10-17] MEDS: enoxaparin 40mg/0.4ml syringe SQ SCH (07:56)
[2019-10-17] MEDS: K and/or MAG REPLACEMENT MC SCH ×2 (08:04→20:00)
[2019-10-17] MEDS: piperacillin/tazo 3.375gm/50ml 50 ML IV SCH ×2 (08:31→16:31)
--- NOTE | 2019-10-17 09:34 | NUR ---
Patient currently refusing orthostatic vitals. Education provided. Will try again later
[2019-10-17] MEDS ORDERED: magnesium Cl slow-release 64mg tablet PO PRN (09:40)
[2019-10-17] MEDS ORDERED: potassium Cl 20 mEq SR tablet PO PRN (09:40)
[2019-10-17] MEDS ORDERED: magnesium 4gm in 100ml NS 100 ML IV PRN (09:40)
[2019-10-17] MEDS ORDERED: potassium CL 10mEq/100ml bag 100 ML IV PRN (09:40)
[2019-10-17] MEDS: potassium Cl 20 mEq SR tablet PO PRN ×2 (14:06→19:11)
--- NOTE | 2019-10-17 14:13 | NUR ---
WOUND INFECTION EDUCATION PROVIDED BY WOUND CARE 1. Patient instructed to call their primary doctor, or go the ED immediately if any of the following symptoms occur: * Increased pain in wound * Increase in drainage from the wound * Redness in the skin surrounding the wound * Warmth in the skin surrounding the wound * Bleeding from the wound * Temperature of 101 or greater 2. If any of these occur while in the hospital tell a nurse immediately. Addendum: 10/17/19 at 1413 by Phylicia Courtney RN Amended: Links added.
--- NOTE | 2019-10-17 18:18 | NUR ---
Problems reprioritized. Patient report given, questions answered & plan of care reviewed with Marlen GOMEZ.
--- NOTE | 2019-10-17 18:43 | NUR ---
Patient in room PCU 3012. I have received report from JASON Robbins and had the opportunity to ask questions and assume patient care.
--- NOTE | 2019-10-17 22:35 | NUR ---
Patient continues to refuse orthostatic vital signs, Addendum: 10/17/19 at 2235 by Marlen Brambila RN Amended: Links added.
[2019-10-18] MEDS: piperacillin/tazo 3.375gm/50ml 50 ML IV SCH ×2 (01:06→09:00)
[2019-10-18 01:21] VITALS: BP 168/88
[2019-10-18] MEDS: hydrALAZINE 20mg/ml inj. IV PRN (01:33)
[2019-10-18] MEDS: clindamycin 600mg/D5W 50ml 50 ML IV SCH ×3 (01:40→13:46)
[2019-10-18 02:30] VITALS: BP 174/81
[2019-10-18 05:06] LABS: BASOPHILS % (AUTO) 0.3 % (0-1); EOSINOPHILS # (AUTO) 0.2 X10'3 (0-0.9); EOSINOPHILS % (AUTO) 2.3 % (0-6); HEMATOCRIT 33.3 % (35.0-45.0); HEMOGLOBIN 10.8 g/dl (12.0-16.0); LYMPHOCYTES % (AUTO) 15.2 % (21-51); MEAN CORPUSCULAR HEMOGLOBIN 27.1 PG (27.0-31.0); MEAN CORPUSCULAR HGB CONC 32.5 g/dL (33.0-36.5); MEAN CORPUSCULAR VOLUME 83.3 FL (78-98); MEAN PLATELET VOLUME 8.1 FL (7.4-10.4); MONOCYTES # (AUTO) 0.8 X10'3 (0-0.9); MONOCYTES % (AUTO) 12.1 % (2-12); NEUTROPHILS # (AUTO) 4.8 X10'3 (1.8-7.7); NEUTROPHILS % (AUTO) 70.1 % (42-75); PLATELET COUNT 434 X10'3 (140-440); RED CELL DISTRIBUTION WIDTH 15.7 % (11.5-14.5); WHITE BLOOD COUNT 6.8 X10'3 (4.5-11.0)
[2019-10-18 05:14] LABS: ALANINE AMINOTRANSFERASE 25 U/L (12-78); ALBUMIN 2.7 G/DL (3.4-5.0); ALBUMIN/GLOBULIN RATIO 0.6 (1.1-1.5); ALKALINE PHOSPHATASE 161 IU/L (46-116); ANION GAP 9 (8-16); ASPARTATE AMINO TRANSFERASE 16 U/L (10-37); BILIRUBIN,TOTAL 0.5 MG/DL (0.1-1.0); BLOOD UREA NITROGEN 14 MG/DL (7-18); BUN/CREATININE RATIO 13.1 (6.6-38.0); CALCIUM 9.2 MG/DL (8.5-10.1); CHLORIDE 108 MMOL/L (99-107); CREATININE 1.07 MG/DL (0.40-0.90); GLUCOSE 94 MG/DL (70-104); POTASSIUM 3.9 MMOL/L (3.5-5.1); SODIUM 144 MMOL/L (135-145); TOTAL CARBON DIOXIDE 27.3 MMOL/L (24-32); TOTAL PROTEIN 7.4 G/DL (6.4-8.2); eGFR 52 ML/MIN
[2019-10-18 06:00] VITALS: BP 146/94
--- NOTE | 2019-10-18 06:24 | NUR ---
Problems reprioritized. Patient report given, questions answered & plan of care reviewed with JASON March.
--- NOTE | 2019-10-18 06:30 | NUR ---
Patient in room PCU 3012. I have received report from JASON SAVAGE and had the opportunity to ask questions and assume patient care.
[2019-10-18] MEDS: lactobacillus rhamnosus 10,000 MMU CELLS/CAPSULE PO SCH (07:46)
[2019-10-18] MEDS: atorvastatin 10mg tablet PO SCH (07:48)
[2019-10-18] MEDS: amLODIPine 5mg tablet PO SCH (07:49)
[2019-10-18] MEDS: pantoprazole 40mg Tablet.DR PO SCH (07:50)
[2019-10-18] MEDS: enoxaparin 40mg/0.4ml syringe SQ SCH (07:51)
[2019-10-18] MEDS ORDERED: lisinopril 20mg tablet PO SCH (09:25)
[2019-10-18 11:00] VITALS: BP 167/77
[2019-10-18] MEDS: acetaminophen 325mg tablet PO PRN (13:47)
[2019-10-18] MEDS ORDERED: CLIN-5 PO (14:31)
[2019-10-18] MEDS ORDERED: LISI-600 PO (14:31)
[2019-10-18] MEDS ORDERED: LACT1CAP26 PO (14:31)
[2019-10-18] MEDS ORDERED: AMOX-580 PO (14:31)
[2019-10-18] MEDS ORDERED: NOR5T PO (14:31)
--- NOTE | 2019-10-18 14:41 | NUR ---
Malnutrition/wound consult: Pt admit w/ sepsis secondary to LE cellulitis having multiple BLE wounds, FTT, sick sinus syndrome periods of 6-7sec of asystole refusing pacemaker per MD. Pt noted to have R knee unstageable pressure wound necrotic, R leg partial thickness venous ulcer, R second toe trauma wound with open areas, R dorsal foot venous ulcer, and L lower leg venous ulcers per WOC. PO improving to 75-100% mechanical soft/heart healthy meals this admit. Pt seen by TIMO for written/verbal high protein ed w/ RD contact information provided. RD encouraged high protein food options, protein supplementation options, and MVI for wound healing needs at home. Pt declines ONS at this time. TIMO spok.Dataium MD for MVI given wounds; TC and is agreeable. Pt reports has lost multiple husbands and has been depressed because of this causing decreased self-care; TIMO notified CM since pt is agreeable to speak to mental health specialist as outpatient. CM reports this will be discussed w/ social service technician today since likely d/c today. LBM 10/17. Pt pending d/c home at this time w/ home health services per MD. At this time pt has good appetite, no edema, mild weakness, and no significant wt loss hx and does not meet minimum malnutrition criteria. Will continue to monitor for additional protein needs this admit. Rec: 1. continue heart healthy/mechanical soft diet per MD 2. MVI for wound healing 3. bowel care as needed 4. wt per rx Addendum: 10/18/19 at [address] Amended: Links added.
[2019-10-18 15:00] VITALS: BP 155/76
[2019-10-18] MEDS ORDERED: LIDOcaine 4% (40 mg/ml) topical solution 50ml TP ONE (15:50)
== END 2019-10-18 17:57 | disposition home health service (06) | DRG 720 ==
LOC: ER 03:29 → ED HOLD 08:29 → EDBEDREQ 08:55 → ORTHO 4S 09:50 → PCU 3S 13:59
PROVIDERS: ADMIT Family Medicine; ATTEND Family Medicine
DX: A41.9 Sepsis, unspecified organism (principal); E43 Unspecified severe protein-calorie malnutrition; I49.5 Sick sinus syndrome; I50.9 Heart failure, unspecified; I11.0 Hypertensive heart disease with heart failure; E78.5 Hyperlipidemia, unspecified; F17.210 Nicotine dependence, cigarettes, uncomplicated; R62.7 Adult failure to thrive; E66.01 Morbid (severe) obesity due to excess calories; D64.9 Anemia, unspecified; F20.9 Schizophrenia, unspecified; J44.9 Chronic obstructive pulmonary disease, unspecified; L03.115 Cellulitis of right lower limb; L03.116 Cellulitis of left lower limb; Z68.36 Body mass index [BMI] 36.0-36.9, adult; Z59.0 Homelessness; Z71.6 Tobacco abuse counseling; Z86.73 Personal history of transient ischemic attack (TIA), and cerebral infarction without residual deficits
CPT/HCPCS: 36415; 71045; 80053; 81001; 83605; 83735; 84145; 85025; 85610; 85730; 87040; 87081; 87088; 90715; 92508; 92616; 93005; 94640; 94667; 94668; 94760; 97116; 97161; 97530; 97535; G0378; J0360; J1650; J1940; J2543; J3490; J7030

== ENCOUNTER 2019-10-31 10:12 | Inpatient (IN) | payer MEDICAID ==
[~2019-10-31] VITALS: Ht 165.1 cm; Wt 99.4 kg
[~2019-10-31 10:12] MED LIST changes: -AMLO-314 PO; +AMOX-580 PO; -CEPH250T PO; +CLIN-5 PO; -FURO40TA4 PO; +LACT1CAP26 PO; +LISI-600 PO; +NOR5T PO
[2019-10-31] MEDS ORDERED: normal saline 1000ML IV soln IV ONE (12:00)
[2019-10-31 12:36] LABS: BASOPHILS % (AUTO) 0.3 % (0-1); EOSINOPHILS # (AUTO) 0.1 X10'3 (0-0.9); EOSINOPHILS % (AUTO) 1.1 % (0-6); HEMATOCRIT 33.5 % (35.0-45.0); HEMOGLOBIN 10.8 g/dl (12.0-16.0); LYMPHOCYTES # (AUTO) 0.9 X10'3 (1.1-4.8); LYMPHOCYTES % (AUTO) 8.8 % (21-51); MEAN CORPUSCULAR HEMOGLOBIN 26.7 PG (27.0-31.0); MEAN CORPUSCULAR HGB CONC 32.1 g/dL (33.0-36.5); MEAN CORPUSCULAR VOLUME 83.3 FL (78-98); MEAN PLATELET VOLUME 7.8 FL (7.4-10.4); MONOCYTES % (AUTO) 8.9 % (2-12); NEUTROPHILS # (AUTO) 8.7 X10'3 (1.8-7.7); NEUTROPHILS % (AUTO) 80.9 % (42-75); PLATELET COUNT 367 X10'3 (140-440); RED BLOOD COUNT 4.03 X10'6 (4.20-5.60); RED CELL DISTRIBUTION WIDTH 15.9 % (11.5-14.5); WHITE BLOOD COUNT 10.8 X10'3 (4.5-11.0)
[2019-10-31 12:49] LABS: ALANINE AMINOTRANSFERASE 32 U/L (12-78); ALBUMIN 2.9 G/DL (3.4-5.0); ALBUMIN/GLOBULIN RATIO 0.6 (1.1-1.5); ALKALINE PHOSPHATASE 182 IU/L (46-116); ANION GAP 5 (8-16); ASPARTATE AMINO TRANSFERASE 19 U/L (10-37); BILIRUBIN,TOTAL 0.3 MG/DL (0.1-1.0); BLOOD UREA NITROGEN 15 MG/DL (7-18); BUN/CREATININE RATIO 17.9 (6.6-38.0); CALCIUM 9.3 MG/DL (8.5-10.1); CHLORIDE 106 MMOL/L (99-107); CREATININE 0.84 MG/DL (0.40-0.90); GLUCOSE 88 MG/DL (70-104); POTASSIUM 4.3 MMOL/L (3.5-5.1); SODIUM 139 MMOL/L (135-145); TOTAL CARBON DIOXIDE 28.5 MMOL/L (24-32); TOTAL PROTEIN 7.5 G/DL (6.4-8.2); eGFR 68 ML/MIN
--- NOTE | 2019-10-31 12:49 | NUR ---
Pt used a bedside commode to void but specimen is contaminated with stool, will attempt again to get a urine specimen.
[2019-10-31 12:57] LABS: MAGNESIUM 2.2 MG/DL (1.5-2.4)
--- NOTE | 2019-10-31 14:21 | NUR ---
Pt presented to ED for leg pain, WOC consulted for BLE weeping. WOC POC to see pt, pt gave verbal consent for procedure. Heavily dirtied and saturated dressings on lower legs. Socks needed to be cut off and were very tight. Parts of gauze from dressing were tight around 4th and 5th toes, resulting in deep impression and wound, though no signs of ischemia from them. Wounds were washed with wound cleanser, rinsed with NS and dried. Large wound to right knee is approximately 1.5cm deep with false wound bed, 100% yellow slough. Unable to determine accurately how deep it was. More superficial wounds presented on right lateral LE, R medial LE, and left LE, appear to be venous in nature. Right 2nd toe has wound as well as the previously mentioned 4th and 5th toes. After cleansing, skin repair cream was applied to intact skin of feet and lower legs. For the knee, hydrogel was applied to wound bed, then covered with xeroform, sprayed periwound with barrier spray and covered with optifoam. BLE wounds were covered with xeroform, then ABD pad or gauze and wrapped with gauze roll. Secured with medipore tape. Pt was fidgety during procedure but tolerated well.
--- NOTE | 2019-10-31 14:22 | NUR ---
[employer] CONTACTED. SS SPOKE WITH FLOWER STAPLETON.
--- NOTE | 2019-10-31 15:04 | NUR ---
PT SLEEPING LAYING SUPINE, RESPIRATIONS EVEN AND UNLABORED. NO DISTRESS NOTED AT THIS TIME.
--- NOTE | 2019-10-31 15:13 | NUR ---
CASE MANAGEMENT CALLED AND WILL MAKE SOME PHONE CALLS TO HELP WITH GETTING PT A RIDE HOME.
--- NOTE | 2019-10-31 15:15 | NUR ---
CASE MANAGEMENT REPORTS TO CALL [facility] AND [facility] IF THEY WILL NOT TAKE PT'S INSURANCE.
[2019-10-31] MEDS ORDERED: potassium CL 10mEq/100ml bag 100 ML IV PRN ×2 (16:35)
[2019-10-31] MEDS ORDERED: acetaminophen 325mg tablet PO PRN (16:35)
[2019-10-31] MEDS ORDERED: magnesium hydroxide 30ml (MOM) UD suspension PO PRN (16:35)
[2019-10-31] MEDS ORDERED: magnesium Cl slow-release 64mg tablet PO PRN (16:35)
[2019-10-31] MEDS ORDERED: HYDROcodone/acetaminophen 5mg/325mg tablet PO PRN (16:35)
[2019-10-31] MEDS ORDERED: potassium Cl 20 mEq SR tablet PO PRN ×2 (16:35)
[2019-10-31] MEDS ORDERED: HYDROcodone/acetaminophen 10/325mg tab PO PRN (16:35)
[2019-10-31] MEDS ORDERED: metoclopramide 5 mg/ml inj IV PRN (16:35)
[2019-10-31] MEDS ORDERED: ondansetron/PF 4mg/2ml inj IV PRN (16:35)
[2019-10-31] MEDS ORDERED: magnesium 4gm in 100ml NS 100 ML IV PRN (16:35)
[2019-10-31] MEDS ORDERED: mag hydrox/Alum hydrox/simeth 30ml oral suspension PO PRN (16:35)
[2019-10-31] MEDS ORDERED: magnesium 2GM in 50ml NS 50 ML IV PRN (16:35)
--- NOTE | 2019-10-31 16:44 | NUR ---
PT SLEEPING LAYING SUPINE, RESPIRATIONS AND UNLABORED NO DISTRESS NOTED AT THIS TIME.
[2019-10-31] MEDS ORDERED: furosemide 10 MG/1 ML 10ml inj IV ONE (17:10)
--- NOTE | 2019-10-31 17:45 | NUR ---
Received report from JASON Peguero
[2019-10-31 17:50] VITALS: BP 155/73
--- NOTE | 2019-10-31 17:50 | NUR ---
Patient arrived to floor. heart rate increased at 118 otherwise vital signs stable.
[2019-10-31] MEDS: CefTRIAXone/D5W-Rocephin 1gm 50 ML IV SCH (17:56)
[2019-10-31 18:16] LABS: ETHANOL < 0.010 GM/DL (0.0-0.010)
[2019-10-31 18:18] LABS: HEMOGLOBIN A1C 5.5 % (4.5-6.2)
--- NOTE | 2019-10-31 18:25 | NUR ---
Problems reprioritized. Patient report given, questions answered & plan of care reviewed with JASON Hill.
--- NOTE | 2019-10-31 18:39 | NUR ---
Patient stable and appropriate for transfer to PCU. patient now in 3028B.
--- NOTE | 2019-10-31 18:39 | NUR ---
Patient in room ESTEBAN 347. I have received report from Su GOMEZ and had the opportunity to ask questions and assume patient care.
[2019-10-31 18:48] VITALS: BP 161/82
[2019-10-31] MEDS: furosemide 40mg/4ml inj IV SCH (19:11)
[2019-10-31] MEDS: metoprolol tartrate 12.5mg (1/2 tablet) PO SCH (19:11)
[2019-10-31] MEDS ORDERED: AMLO5TAB16 PO (19:20)
[2019-10-31] MEDS ORDERED: LISI-600 PO (19:20)
[2019-10-31] MEDS ORDERED: AMOX-580 PO (19:21)
[2019-10-31] MEDS: K and/or MAG REPLACEMENT MC SCH (19:42)
[2019-10-31] MEDS ORDERED: temazepam 15mg capsule PO PRN (21:00)
[2019-10-31 23:00] VITALS: BP 129/63
[2019-11-01 02:30] VITALS: BP 134/68
[2019-11-01 05:23] LABS: BASOPHILS % (AUTO) 0.3 % (0-1); EOSINOPHILS # (AUTO) 0.1 X10'3 (0-0.9); EOSINOPHILS % (AUTO) 1.9 % (0-6); HEMATOCRIT 30.4 % (35.0-45.0); HEMOGLOBIN 9.9 g/dl (12.0-16.0); LYMPHOCYTES % (AUTO) 13.4 % (21-51); MEAN CORPUSCULAR HEMOGLOBIN 26.8 PG (27.0-31.0); MEAN CORPUSCULAR HGB CONC 32.5 g/dL (33.0-36.5); MEAN CORPUSCULAR VOLUME 82.7 FL (78-98); MEAN PLATELET VOLUME 8.1 FL (7.4-10.4); MONOCYTES # (AUTO) 0.8 X10'3 (0-0.9); NEUTROPHILS # (AUTO) 5.5 X10'3 (1.8-7.7); NEUTROPHILS % (AUTO) 73.4 % (42-75); PLATELET COUNT 358 X10'3 (140-440); RED BLOOD COUNT 3.67 X10'6 (4.20-5.60); RED CELL DISTRIBUTION WIDTH 15.6 % (11.5-14.5); WHITE BLOOD COUNT 7.5 X10'3 (4.5-11.0)
[2019-11-01 05:32] LABS: ALANINE AMINOTRANSFERASE 28 U/L (12-78); ALBUMIN 2.3 G/DL (3.4-5.0); ALBUMIN/GLOBULIN RATIO 0.6 (1.1-1.5); ALKALINE PHOSPHATASE 153 IU/L (46-116); ANION GAP 6 (8-16); ASPARTATE AMINO TRANSFERASE 17 U/L (10-37); BILIRUBIN,TOTAL 0.3 MG/DL (0.1-1.0); BLOOD UREA NITROGEN 12 MG/DL (7-18); BUN/CREATININE RATIO 12.9 (6.6-38.0); CALCIUM 8.7 MG/DL (8.5-10.1); CHLORIDE 109 MMOL/L (99-107); CREATININE 0.93 MG/DL (0.40-0.90); GLUCOSE 78 MG/DL (70-104); MAGNESIUM 1.9 MG/DL (1.5-2.4); POTASSIUM 3.8 MMOL/L (3.5-5.1); SODIUM 145 MMOL/L (135-145); TOTAL CARBON DIOXIDE 30.5 MMOL/L (24-32); TOTAL PROTEIN 6.4 G/DL (6.4-8.2); eGFR 61 ML/MIN
--- NOTE | 2019-11-01 06:16 | NUR ---
Problems reprioritized. Patient report given, questions answered & plan of care reviewed with Josephine GOMEZ.
--- NOTE | 2019-11-01 06:30 | NUR ---
Patient in room PCU 3028. I have received report from JASON Rich and had the opportunity to ask questions and assume patient care.
[2019-11-01] MEDS ORDERED: FURO40TA4 PO (06:39)
[2019-11-01 07:00] VITALS: BP 145/68
[2019-11-01] MEDS: K and/or MAG REPLACEMENT MC SCH ×2 (08:00→20:00)
[2019-11-01] MEDS: enoxaparin 40mg/0.4ml syringe SQ SCH (09:35)
[2019-11-01] MEDS: CefTRIAXone/D5W-Rocephin 1gm 50 ML IV SCH (09:35)
[2019-11-01] MEDS: furosemide 40mg/4ml inj IV SCH ×2 (09:35→19:37)
[2019-11-01] MEDS: metoprolol tartrate 12.5mg (1/2 tablet) PO SCH (09:39)
[2019-11-01] MEDS ORDERED: LIDOcaine 4% (40 mg/ml) topical solution 50ml TP PRN (10:25)
[2019-11-01 11:00] VITALS: BP 137/62
[2019-11-01 15:00] VITALS: BP 136/67
--- NOTE | 2019-11-01 18:30 | NUR ---
Patient in room PCU 3028. I have received report from Josephine GOMEZ and had the opportunity to ask questions and assume patient care.
--- NOTE | 2019-11-01 18:49 | NUR ---
PAGER ID: [phone] MESSAGE: Lena Pretty [phone] admitted with weakness and fall, had a 16 beat episode of V Tach, pt is asymptomatic denies any chest pain, dizziness, or SOB Thank you Le GOMEZ
[2019-11-01] MEDS ORDERED: magnesium 2GM in 50ml NS 50 ML IV ONE (18:55)
[2019-11-01] MEDS: metoprolol tartrate 25mg tablet PO SCH (19:37)
[2019-11-01] MEDS: acetaminophen 325mg tablet PO PRN (19:59)
--- NOTE | 2019-11-02 | NUR ---
pt had 10.5 second pause, asytole. pt is asymptotic, notified, will continue to monitor
[2019-11-02 02:00] VITALS: BP 124/64
[2019-11-02 06:00] VITALS: BP 156/71
--- NOTE | 2019-11-02 06:00 | NUR ---
Patient in room PCU 3028. I have received report from Aide GOMEZ and had the opportunity to ask questions and assume patient care.
[2019-11-02 06:09] LABS: BASOPHILS % (AUTO) 0.4 % (0-1); EOSINOPHILS # (AUTO) 0.2 X10'3 (0-0.9); EOSINOPHILS % (AUTO) 2.9 % (0-6); HEMOGLOBIN 10.1 g/dl (12.0-16.0); LYMPHOCYTES # (AUTO) 1.2 X10'3 (1.1-4.8); LYMPHOCYTES % (AUTO) 20.1 % (21-51); MEAN CORPUSCULAR HEMOGLOBIN 27.2 PG (27.0-31.0); MEAN CORPUSCULAR HGB CONC 32.6 g/dL (33.0-36.5); MEAN CORPUSCULAR VOLUME 83.4 FL (78-98); MEAN PLATELET VOLUME 7.9 FL (7.4-10.4); MONOCYTES # (AUTO) 0.8 X10'3 (0-0.9); NEUTROPHILS # (AUTO) 3.8 X10'3 (1.8-7.7); NEUTROPHILS % (AUTO) 63.6 % (42-75); PLATELET COUNT 353 X10'3 (140-440); RED BLOOD COUNT 3.72 X10'6 (4.20-5.60); WHITE BLOOD COUNT 5.9 X10'3 (4.5-11.0)
--- NOTE | 2019-11-02 06:15 | NUR ---
Problems reprioritized. Patient report given, questions answered & plan of care reviewed with Prakash GOMEZ.
[2019-11-02 06:35] LABS: ALANINE AMINOTRANSFERASE 24 U/L (12-78); ALBUMIN 2.4 G/DL (3.4-5.0); ALBUMIN/GLOBULIN RATIO 0.5 (1.1-1.5); ALKALINE PHOSPHATASE 143 IU/L (46-116); ANION GAP 4 (8-16); ASPARTATE AMINO TRANSFERASE 13 U/L (10-37); BILIRUBIN,TOTAL 0.2 MG/DL (0.1-1.0); BLOOD UREA NITROGEN 19 MG/DL (7-18); BUN/CREATININE RATIO 17.1 (6.6-38.0); CALCIUM 8.6 MG/DL (8.5-10.1); CHLORIDE 106 MMOL/L (99-107); CREATININE 1.11 MG/DL (0.40-0.90); GLUCOSE 83 MG/DL (70-104); MAGNESIUM 2.4 MG/DL (1.5-2.4); POTASSIUM 3.6 MMOL/L (3.5-5.1); SODIUM 144 MMOL/L (135-145); TOTAL CARBON DIOXIDE 33.6 MMOL/L (24-32); TOTAL PROTEIN 6.8 G/DL (6.4-8.2); eGFR 49 ML/MIN
[2019-11-02] MEDS: K and/or MAG REPLACEMENT MC SCH ×2 (08:00→20:00)
[2019-11-02] MEDS: furosemide 40mg/4ml inj IV SCH ×2 (08:03→20:45)
[2019-11-02] MEDS: metoprolol tartrate 25mg tablet PO SCH ×2 (08:03→20:45)
[2019-11-02] MEDS: enoxaparin 40mg/0.4ml syringe SQ SCH (08:04)
[2019-11-02] MEDS: CefTRIAXone/D5W-Rocephin 1gm 50 ML IV SCH (08:04)
[2019-11-02] MEDS ORDERED: LORazepam 2 mg/ml vial IV ONE (10:55)
[2019-11-02 15:00] VITALS: BP 145/72
[2019-11-02 18:00] VITALS: BP 102/69
--- NOTE | 2019-11-02 18:04 | NUR ---
Problems reprioritized. Patient report given, questions answered & plan of care reviewed with Le GOMEZ.
[2019-11-02] MEDS: acetaminophen 325mg tablet PO PRN (20:45)
[2019-11-02 22:00] VITALS: BP 146/84
[2019-11-02] MEDS: risperiDONE 0.5mg tablet PO SCH (22:47)
[2019-11-03 02:00] VITALS: BP 155/70
[2019-11-03 05:28] LABS: BASOPHILS % (AUTO) 0.4 % (0-1); EOSINOPHILS # (AUTO) 0.2 X10'3 (0-0.9); EOSINOPHILS % (AUTO) 3.3 % (0-6); HEMATOCRIT 31.4 % (35.0-45.0); HEMOGLOBIN 10.3 g/dl (12.0-16.0); LYMPHOCYTES # (AUTO) 1.2 X10'3 (1.1-4.8); LYMPHOCYTES % (AUTO) 22.3 % (21-51); MEAN CORPUSCULAR HEMOGLOBIN 27.2 PG (27.0-31.0); MEAN CORPUSCULAR VOLUME 82.6 FL (78-98); MEAN PLATELET VOLUME 7.9 FL (7.4-10.4); MONOCYTES # (AUTO) 0.7 X10'3 (0-0.9); MONOCYTES % (AUTO) 13.3 % (2-12); NEUTROPHILS # (AUTO) 3.2 X10'3 (1.8-7.7); NEUTROPHILS % (AUTO) 60.7 % (42-75); PLATELET COUNT 376 X10'3 (140-440); RED CELL DISTRIBUTION WIDTH 15.4 % (11.5-14.5); WHITE BLOOD COUNT 5.3 X10'3 (4.5-11.0)
[2019-11-03 06:00] VITALS: BP 128/71
--- NOTE | 2019-11-03 06:30 | NUR ---
Problems reprioritized. Patient report given, questions answered & plan of care reviewed with Kacie GOMEZ.
[2019-11-03 06:32] LABS: ALANINE AMINOTRANSFERASE 23 U/L (12-78); ALBUMIN 2.5 G/DL (3.4-5.0); ALBUMIN/GLOBULIN RATIO 0.6 (1.1-1.5); ALKALINE PHOSPHATASE 140 IU/L (46-116); ANION GAP 4 (8-16); ASPARTATE AMINO TRANSFERASE 14 U/L (10-37); BILIRUBIN,TOTAL 0.2 MG/DL (0.1-1.0); BLOOD UREA NITROGEN 22 MG/DL (7-18); BUN/CREATININE RATIO 21.2 (6.6-38.0); CALCIUM 8.7 MG/DL (8.5-10.1); CHLORIDE 104 MMOL/L (99-107); CREATININE 1.04 MG/DL (0.40-0.90); GLUCOSE 83 MG/DL (70-104); MAGNESIUM 2.1 MG/DL (1.5-2.4); POTASSIUM 3.5 MMOL/L (3.5-5.1); SODIUM 141 MMOL/L (135-145); TOTAL CARBON DIOXIDE 33.1 MMOL/L (24-32); eGFR 53 ML/MIN
--- NOTE | 2019-11-03 06:37 | NUR ---
Patient in room PCU 3028. I have received report from Le GOMEZ and had the opportunity to ask questions and assume patient care.
[2019-11-03] MEDS: CefTRIAXone/D5W-Rocephin 1gm 50 ML IV SCH (07:52)
[2019-11-03] MEDS: enoxaparin 40mg/0.4ml syringe SQ SCH (07:52)
[2019-11-03] MEDS: metoprolol tartrate 25mg tablet PO SCH ×2 (07:53→19:39)
[2019-11-03] MEDS: furosemide 40mg/4ml inj IV SCH ×2 (07:53→19:37)
[2019-11-03] MEDS: K and/or MAG REPLACEMENT MC SCH ×2 (08:00→20:00)
--- NOTE | 2019-11-03 08:48 | NUR ---
Paged Dr Palma MESSAGE: Re: Lena Pretty Rm 1156B FYI MRSA in right knee culture. Thanks Kacie Charles [phone]
[2019-11-03 10:16] LABS: URINE HCG NEGATIVE (NEG)
[2019-11-03 10:20] LABS: CLARITY,URINE CLEAR (Clear); COLOR,URINE STRAW (Yellow); GLUCOSE, URINE NEGATIVE (Neg); KETONES,URINE NEGATIVE (Neg); LEUKOCYTE ESTERASE ,URINE MODERATE (Neg); NITRITES, URINE NEGATIVE (Neg); OCCULT BLOOD,URINE NEGATIVE (Neg); PH,URINE 7.5 (4.8-8.0); PROTEIN,URINE NEGATIVE (Neg); UROBILINOGEN,URINE 0.2 E.U/dL (0.2-1.0)
[2019-11-03 10:23] LABS: UA COLLECTION TYPE NON-SPECIFIED
[2019-11-03 10:26] LABS: URINE AMPHETAMINE SCREEN NEGATIVE (Neg); URINE BARBITUATE SCREEN NEGATIVE (Neg); URINE BENZODIAZEPINES SCREEN NEGATIVE (Neg); URINE CANNABINOID SCREEN NEGATIVE (Neg); URINE COCAINE SCREEN NEGATIVE (Neg); URINE METHADONE SCREEN NEGATIVE (Neg); URINE OPIATE SCREEN NEGATIVE (Neg); URINE PHENCYCLIDINE SCREEN NEGATIVE (Neg)
[2019-11-03 10:32] LABS: BACTERIA,URINE FEW /HPF (Neg); RBC,URINE 0-2 /HPF (0-2); SQUAMOUS EPITHELIAL CELL,UR FEW /LPF (FEW)
[2019-11-03 10:33] LABS: WBC,URINE 0-4 /HPF (0-4)
[2019-11-03 11:00] VITALS: BP 147/119
[2019-11-03] MEDS: amLODIPine 5mg tablet PO SCH (11:40)
[2019-11-03] MEDS: pantoprazole 40mg Tablet.DR PO SCH (11:40)
[2019-11-03] MEDS: atorvastatin 10mg tablet PO SCH (11:40)
[2019-11-03] MEDS: lisinopril 20mg tablet PO SCH (11:40)
[2019-11-03 15:00] VITALS: BP 152/109
[2019-11-03 18:00] VITALS: BP 132/120
--- NOTE | 2019-11-03 18:29 | NUR ---
Problems reprioritized. Patient report given, questions answered & plan of care reviewed with JASON Kirkland. All patient's needs met at this time.
--- NOTE | 2019-11-03 18:30 | NUR ---
Patient in room PCU 3019. I have received report from Kacie Phillips and had the opportunity to ask questions and assume patient care.
[2019-11-03] MEDS: acetaminophen 325mg tablet PO PRN (19:07)
--- NOTE | 2019-11-03 19:28 | NUR ---
3019A - Lena Pretty 63/F - Pt c periods of asystole less than 12 seconds intermittently pt asymptomatic. HR @93. Wondering if okay to admin scheduled metoprolol 25mg [id number] Vini GOMEZ
--- NOTE | 2019-11-03 19:31 | NUR ---
Discussed with Dr. Blackwell she ordered half dose to be administered at this time. Addendum: 11/03/19 at 1941 by Isael Harmon RN Discussed medication change with patient. Patient refused medication stating "I just dont want that medication"
[2019-11-03] MEDS ORDERED: metoprolol tartrate 12.5mg (1/2 tablet) PO ONE (19:35)
[2019-11-03] MEDS: risperiDONE 0.5mg tablet PO SCH (21:43)
[2019-11-03 23:00] VITALS: BP 128/64
[2019-11-04 03:00] VITALS: BP 131/84
[2019-11-04] MEDS: acetaminophen 325mg tablet PO PRN (05:40)
[2019-11-04 06:00] VITALS: BP 153/85
--- NOTE | 2019-11-04 06:18 | NUR ---
Problems reprioritized. Patient report given, questions answered & plan of care reviewed with Day RN.
[2019-11-04 06:36] LABS: BASOPHILS % (AUTO) 0.2 % (0-1); EOSINOPHILS # (AUTO) 0.1 X10'3 (0-0.9); EOSINOPHILS % (AUTO) 2.7 % (0-6); HEMATOCRIT 33.3 % (35.0-45.0); HEMOGLOBIN 10.9 g/dl (12.0-16.0); LYMPHOCYTES # (AUTO) 0.9 X10'3 (1.1-4.8); LYMPHOCYTES % (AUTO) 16.6 % (21-51); MEAN CORPUSCULAR HEMOGLOBIN 26.8 PG (27.0-31.0); MEAN CORPUSCULAR HGB CONC 32.6 g/dL (33.0-36.5); MEAN CORPUSCULAR VOLUME 82.2 FL (78-98); MEAN PLATELET VOLUME 7.9 FL (7.4-10.4); MONOCYTES # (AUTO) 0.6 X10'3 (0-0.9); MONOCYTES % (AUTO) 11.6 % (2-12); NEUTROPHILS # (AUTO) 3.8 X10'3 (1.8-7.7); NEUTROPHILS % (AUTO) 68.9 % (42-75); PLATELET COUNT 413 X10'3 (140-440); RED BLOOD COUNT 4.06 X10'6 (4.20-5.60); RED CELL DISTRIBUTION WIDTH 15.9 % (11.5-14.5); WHITE BLOOD COUNT 5.6 X10'3 (4.5-11.0)
--- NOTE | 2019-11-04 06:49 | NUR ---
Patient in room PCU 3019. I have received report from Vini GOMEZ and had the opportunity to ask questions and assume patient care.
[2019-11-04 06:59] LABS: ALANINE AMINOTRANSFERASE 24 U/L (12-78); ALBUMIN 2.8 G/DL (3.4-5.0); ALBUMIN/GLOBULIN RATIO 0.6 (1.1-1.5); ALKALINE PHOSPHATASE 145 IU/L (46-116); ANION GAP 7 (8-16); ASPARTATE AMINO TRANSFERASE 15 U/L (10-37); BILIRUBIN,TOTAL 0.3 MG/DL (0.1-1.0); BLOOD UREA NITROGEN 23 MG/DL (7-18); BUN/CREATININE RATIO 20.9 (6.6-38.0); CALCIUM 8.9 MG/DL (8.5-10.1); CHLORIDE 102 MMOL/L (99-107); GLUCOSE 94 MG/DL (70-104); MAGNESIUM 2.1 MG/DL (1.5-2.4); POTASSIUM 3.7 MMOL/L (3.5-5.1); SODIUM 142 MMOL/L (135-145); TOTAL CARBON DIOXIDE 33.5 MMOL/L (24-32); TOTAL PROTEIN 7.4 G/DL (6.4-8.2); eGFR 50 ML/MIN
[2019-11-04] MEDS: atorvastatin 10mg tablet PO SCH (07:51)
[2019-11-04] MEDS: pantoprazole 40mg Tablet.DR PO SCH (07:51)
[2019-11-04] MEDS: amLODIPine 5mg tablet PO SCH (07:51)
[2019-11-04] MEDS: furosemide 40mg/4ml inj IV SCH ×2 (07:52→20:02)
[2019-11-04] MEDS: lisinopril 20mg tablet PO SCH (07:52)
[2019-11-04] MEDS: metoprolol tartrate 25mg tablet PO SCH ×3 (07:52→20:11)
[2019-11-04] MEDS: enoxaparin 40mg/0.4ml syringe SQ SCH (07:53)
[2019-11-04] MEDS: K and/or MAG REPLACEMENT MC SCH ×2 (08:00→19:37)
[2019-11-04 11:00] VITALS: BP 125/64
--- NOTE | 2019-11-04 13:20 | NUR ---
PAGER ID: [phone] MESSAGE: [phone] Lena Pretty: FYI Pt had a 5 beat run of V-Tach after walking w/ PT. Thanks Rogelio
[2019-11-04 15:00] VITALS: BP 135/67
--- NOTE | 2019-11-04 15:14 | NUR ---
Initial: Patient admitted with BLE cellulitis, recurrent falls, and depression per MD note. Last bowel movement 11/04; has prn bowel care available. Patient has scabbed stage IV pressure ulcer to right knee, WOC is following. She is eating well, 75-100% of heart healthy meals. Pt seen at bedside provided with written and verbal protein education with RD contact information. Pt denies double protein at this time however agrees to cottage cheese BIDBD, d/w dietary. Pt endorsing a good appetite and denies food allergies, difficulty chewing/swallowing, or constipation/diarrhea. Will continue to follow. Recommend: 1. continue heart healthy diet 2. cottage cheese BIDBD 3. bowel care as needed 4. weight per rx Addendum: 11/04/19 at [address] Amended: Links added.
--- NOTE | 2019-11-04 18:40 | NUR ---
Problems reprioritized. Patient report given, questions answered & plan of care reviewed with Felicia GOMEZ.
[2019-11-04 19:00] VITALS: BP 117/57
[2019-11-04] MEDS: risperiDONE 0.5mg tablet PO SCH (20:03)
[2019-11-04] MEDS ORDERED: VANCOMYCIN LEVEL IV ONE (22:30)
--- NOTE | 2019-11-04 22:56 | NUR ---
Received critical lab value of Vanco trough 24.6 - patient on pharmacy to dose Vancomycin. Spoke with pharmacist and was advised to hold tonight's dose of Vanco and she will have AM pharmacist adjust dosing for tomorrow. Will notify
[2019-11-04 23:00] VITALS: BP 137/66
[2019-11-05 03:00] VITALS: BP 148/82
[2019-11-05 06:00] VITALS: BP 139/87
--- NOTE | 2019-11-05 06:08 | NUR ---
Student Medication Administration: For this medication-pass time frame, all medication were reviewed, dispensed, administered and documented per hospital policy by Apryl JUAREZ. Student documentation: I have reviewed and agree with all interventions, assessments performed and documented by Apryl JUAREZ.
--- NOTE | 2019-11-05 06:20 | NUR ---
Problems reprioritized. Patient report given, questions answered & plan of care reviewed with Rogelio GOMEZ.
--- NOTE | 2019-11-05 06:27 | NUR ---
Patient in room PCU 3019. I have received report from Felicia GOMEZ and had the opportunity to ask questions and assume patient care.
[2019-11-05 07:11] LABS: ALANINE AMINOTRANSFERASE 17 U/L (12-78); ALBUMIN 2.9 G/DL (3.4-5.0); ALBUMIN/GLOBULIN RATIO 0.6 (1.1-1.5); ALKALINE PHOSPHATASE 144 IU/L (46-116); ANION GAP 10 (8-16); ASPARTATE AMINO TRANSFERASE 16 U/L (10-37); BILIRUBIN,TOTAL 0.2 MG/DL (0.1-1.0); BLOOD UREA NITROGEN 31 MG/DL (7-18); BUN/CREATININE RATIO 25.6 (6.6-38.0); CALCIUM 9.3 MG/DL (8.5-10.1); CHLORIDE 102 MMOL/L (99-107); CREATININE 1.21 MG/DL (0.40-0.90); GLUCOSE 92 MG/DL (70-104); MAGNESIUM 2.4 MG/DL (1.5-2.4); POTASSIUM 4.1 MMOL/L (3.5-5.1); SODIUM 141 MMOL/L (135-145); TOTAL PROTEIN 7.6 G/DL (6.4-8.2); eGFR 45 ML/MIN
[2019-11-05 07:49] LABS: BASOPHILS % (AUTO) 0.4 % (0-1); EOSINOPHILS # (AUTO) 0.2 X10'3 (0-0.9); EOSINOPHILS % (AUTO) 2.6 % (0-6); HEMOGLOBIN 11.2 g/dl (12.0-16.0); LYMPHOCYTES # (AUTO) 0.9 X10'3 (1.1-4.8); LYMPHOCYTES % (AUTO) 15.8 % (21-51); MEAN CORPUSCULAR HEMOGLOBIN 26.5 PG (27.0-31.0); MEAN CORPUSCULAR HGB CONC 32.1 g/dL (33.0-36.5); MEAN CORPUSCULAR VOLUME 82.5 FL (78-98); MEAN PLATELET VOLUME 7.8 FL (7.4-10.4); MONOCYTES # (AUTO) 0.8 X10'3 (0-0.9); MONOCYTES % (AUTO) 12.7 % (2-12); NEUTROPHILS # (AUTO) 4.1 X10'3 (1.8-7.7); NEUTROPHILS % (AUTO) 68.5 % (42-75); PLATELET COUNT 391 X10'3 (140-440); RED BLOOD COUNT 4.24 X10'6 (4.20-5.60); RED CELL DISTRIBUTION WIDTH 15.4 % (11.5-14.5)
[2019-11-05] MEDS: K and/or MAG REPLACEMENT MC SCH (08:00)
[2019-11-05] MEDS: amLODIPine 5mg tablet PO SCH (08:52)
[2019-11-05] MEDS: pantoprazole 40mg Tablet.DR PO SCH (08:52)
[2019-11-05] MEDS: metoprolol tartrate 25mg tablet PO SCH (08:52)
[2019-11-05] MEDS: atorvastatin 10mg tablet PO SCH (08:52)
[2019-11-05] MEDS: lisinopril 20mg tablet PO SCH (08:52)
[2019-11-05] MEDS: enoxaparin 40mg/0.4ml syringe SQ SCH (08:53)
[2019-11-05] MEDS: furosemide 40mg/4ml inj IV SCH (08:53)
[2019-11-05 11:00] VITALS: BP 126/82
[2019-11-05] MEDS ORDERED: METO25TA6 PO (11:56)
[2019-11-05] MEDS ORDERED: SULF1TAB49 PO (11:57)
[2019-11-05] MEDS ORDERED: VANCOmycin 1250MG/NS 250ml Bag 250 ML IV SCH (12:00)
[2019-11-05] MEDS ORDERED: FURO40TA4 PO (12:18)
[2019-11-05] MEDS ORDERED: RISP0.5T74 PO (12:21)
--- NOTE | 2019-11-05 13:40 | NUR ---
Pt is stable for discharge per md orders, discharge instructions reviewed with pt, new medication prescriptions called in to [facility] in [place], tele monitor removed and returned and PIV clean dry and intact, pt discharges to home w/ home health nurse and instructed to go to the wound clinic and follow up w/ PCP, pt discharges at 1340 via cab, wheeled down to [facility] staff, all belongings w/ pt at time of discharge
[2019-11-06] MEDS ORDERED: VANCOMYCIN LEVEL IV ONE (23:30)
== END 2019-11-05 13:30 | disposition home health service (06) | DRG 383 ==
LOC: ER 10:13 → ED HOLD 16:44 → SUR 3N 17:34 → PCU 3S 18:42
PROVIDERS: ADMIT Family Medicine; ATTEND Family Medicine
DX: L03.115 Cellulitis of right lower limb (principal); I46.9 Cardiac arrest, cause unspecified; I50.33 Acute on chronic diastolic (congestive) heart failure; N17.9 Acute kidney failure, unspecified; F20.9 Schizophrenia, unspecified; L97.819 Non-pressure chronic ulcer of other part of right lower leg with unspecified severity; B95.62 Methicillin resistant Staphylococcus aureus infection as the cause of diseases classified elsewhere; D64.9 Anemia, unspecified; E78.5 Hyperlipidemia, unspecified; F32.9 Major depressive disorder, single episode, unspecified; J44.9 Chronic obstructive pulmonary disease, unspecified; L03.116 Cellulitis of left lower limb; L97.929 Non-pressure chronic ulcer of unspecified part of left lower leg with unspecified severity; M41.9 Scoliosis, unspecified; R29.6 Repeated falls; W18.39XA Other fall on same level, initial encounter; K21.9 Gastro-esophageal reflux disease without esophagitis; R00.0 Tachycardia, unspecified; R62.7 Adult failure to thrive; F29 Unspecified psychosis not due to a substance or known physiological condition; N18.9 Chronic kidney disease, unspecified; I13.0 Hypertensive heart and chronic kidney disease with heart failure and stage 1 through stage 4 chronic kidney disease, or unspecified chronic kidney disease; Z68.36 Body mass index [BMI] 36.0-36.9, adult; Z88.8 Allergy status to other drugs, medicaments and biological substances; Y93.89 Activity, other specified; Y92.89 Other specified places as the place of occurrence of the external cause; Y99.8 Other external cause status; Z85.828 Personal history of other malignant neoplasm of skin; Z86.73 Personal history of transient ischemic attack (TIA), and cerebral infarction without residual deficits; Z87.891 Personal history of nicotine dependence
CPT/HCPCS: 36415; 70450; 70544; 70551; 71045; 80053; 80202; 80305; 80320; 81001; 81025; 83036; 83605; 83735; 83880; 84145; 85025; 87040; 87070; 87077; 87088; 87186; 93005; 93880; 96360; 96361; 97116; 97161; 97530; 99285; G0378; J0696; J1650; J1940; J2060; J3370; J3475; J7030

== ENCOUNTER 2019-12-02 19:08 | Emergency (ER) | payer MEDICAID ==
[~2019-12-02] VITALS: Ht 165.1 cm; Wt 81.8 kg
[~2019-12-02 19:08] MED LIST changes: +ALBU8.5H8 INH; -AMOX-580 PO; -ATOR10TA70 PO; +BUDE10.22 INH; +CEFD300C3 PO; -CLIN-5 PO; +HYDR-4069 PO; -LISI-600 PO; +METO50TA16 PO; +NO HOME MEDS; -PANT40TA4 PO; +PRED10TA23 PO
[2019-12-02 19:13] VITALS: BP 171/76
[2019-12-02 20:42] LABS: CLARITY,URINE SLIGHTLY CLOUDY (Clear); COLOR,URINE YELLOW (Yellow); GLUCOSE, URINE NEGATIVE (Neg); KETONES,URINE NEGATIVE (Neg); LEUKOCYTE ESTERASE ,URINE SMALL (Neg); NITRITES, URINE NEGATIVE (Neg); OCCULT BLOOD,URINE SMALL (Neg); PROTEIN,URINE TRACE mg/dl (Neg); UROBILINOGEN,URINE 0.2 E.U/dL (0.2-1.0)
[2019-12-02 20:54] LABS: UA COLLECTION TYPE CLN CATCH MIDSTREAM
[2019-12-02 20:55] LABS: BACTERIA,URINE FEW /HPF (Neg); RBC,URINE 0-2 /HPF (0-2); SQUAMOUS EPITHELIAL CELL,UR FEW /LPF (FEW); WBC CLUMPS,URINE FEW /HPF (NEGATIVE); WBC,URINE 30-50 /HPF (0-4)
== END 2019-12-02 22:22 | disposition home or self-care (01) ==
LOC: ER 19:09
DX: N31.9 Neuromuscular dysfunction of bladder, unspecified (principal); J44.9 Chronic obstructive pulmonary disease, unspecified; F20.9 Schizophrenia, unspecified; Z86.73 Personal history of transient ischemic attack (TIA), and cerebral infarction without residual deficits; Z60.2 Problems related to living alone; Z88.8 Allergy status to other drugs, medicaments and biological substances; Z79.899 Other long term (current) drug therapy
CPT/HCPCS: 81001; 87088; 99283

== ENCOUNTER 2019-12-21 21:41 | Inpatient (IN) | payer MEDICAID ==
[~2019-12-21] VITALS: Ht 165.1 cm; Wt 86.4 kg
[2019-12-21] MEDS ORDERED: normal saline 1000ML IV soln IVB ONE ×2 (22:00)
[2019-12-21] MEDS ORDERED: VANCOmycin 1250MG/NS 250ml Bag 250 ML IV STA (22:00)
[2019-12-21] MEDS ORDERED: ipratropium 0.5 MG/2.5ML nebule IH ONE (22:15)
[2019-12-21] MEDS ORDERED: piperacillin/tazo 3.375gm/50ml 50 ML IV ONE (22:15)
[2019-12-21 22:30] LABS: BASOPHILS % (AUTO) 0.4 % (0-1); EOSINOPHILS # (AUTO) 0.2 X10'3 (0-0.9); EOSINOPHILS % (AUTO) 2.3 % (0-6); HEMATOCRIT 31.3 % (35.0-45.0); HEMOGLOBIN 10.1 g/dl (12.0-16.0); LYMPHOCYTES # (AUTO) 1.1 X10'3 (1.1-4.8); LYMPHOCYTES % (AUTO) 11.5 % (21-51); MEAN CORPUSCULAR HEMOGLOBIN 25.7 PG (27.0-31.0); MEAN CORPUSCULAR HGB CONC 32.4 g/dL (33.0-36.5); MEAN CORPUSCULAR VOLUME 79.5 FL (78-98); MEAN PLATELET VOLUME 7.8 FL (7.4-10.4); MONOCYTES # (AUTO) 1.4 X10'3 (0-0.9); MONOCYTES % (AUTO) 14.1 % (2-12); NEUTROPHILS % (AUTO) 71.7 % (42-75); PLATELET COUNT 447 X10'3 (140-440); RED BLOOD COUNT 3.94 X10'6 (4.20-5.60); RED CELL DISTRIBUTION WIDTH 17.5 % (11.5-14.5); WHITE BLOOD COUNT 9.7 X10'3 (4.5-11.0)
[2019-12-21 22:40] LABS: ALANINE AMINOTRANSFERASE 35 U/L (12-78); ALBUMIN 2.5 G/DL (3.4-5.0); ALBUMIN/GLOBULIN RATIO 0.5 (1.1-1.5); ALKALINE PHOSPHATASE 142 IU/L (46-116); ANION GAP 6 (8-16); ASPARTATE AMINO TRANSFERASE 19 U/L (10-37); BILIRUBIN,TOTAL 0.1 MG/DL (0.1-1.0); BLOOD UREA NITROGEN 27 MG/DL (7-18); BUN/CREATININE RATIO 27.3 (6.6-38.0); CALCIUM 8.8 MG/DL (8.5-10.1); CHLORIDE 108 MMOL/L (99-107); CREATININE 0.99 MG/DL (0.40-0.90); GLUCOSE 105 MG/DL (70-104); PARTIAL THROMBOPLASTIN TIME 31 SECONDS (22-32); POTASSIUM 4.2 MMOL/L (3.5-5.1); SODIUM 142 MMOL/L (135-145); TOTAL CARBON DIOXIDE 27.9 MMOL/L (24-32); TOTAL PROTEIN 7.3 G/DL (6.4-8.2); eGFR 56 ML/MIN
[2019-12-21 22:49] LABS: MAGNESIUM 2.3 MG/DL (1.5-2.4); TROPONIN I < 0.04 NG/ML (0.0-0.05)
[2019-12-21 23:44] LABS: CLARITY,URINE CLOUDY (Clear); COLOR,URINE YELLOW (Yellow); GLUCOSE, URINE NEGATIVE (Neg); KETONES,URINE NEGATIVE (Neg); LEUKOCYTE ESTERASE ,URINE SMALL (Neg); NITRITES, URINE POSITIVE (Neg); OCCULT BLOOD,URINE SMALL (Neg); PH,URINE 6.5 (4.8-8.0); PROTEIN,URINE 30 mg/dl (Neg); UROBILINOGEN,URINE 0.2 E.U/dL (0.2-1.0)
[2019-12-21 23:49] LABS: UA COLLECTION TYPE STRAIGHT CATH
[2019-12-21 23:53] LABS: BACTERIA,URINE 3+ /HPF (Neg); WBC,URINE 20-30 /HPF (0-4)
[2019-12-21 23:55] LABS: SQUAMOUS EPITHELIAL CELL,UR MODERATE /LPF (FEW)
[2019-12-21 23:57] LABS: AMORPHOUS PHOSPHATES 2+
[2019-12-22] MEDS ORDERED: HYDROcodone/acetaminophen 10/325mg tab PO ONE (00:50)
[2019-12-22] MEDS ORDERED: mag hydrox/Alum hydrox/simeth 30ml oral suspension PO PRN (01:05)
[2019-12-22] MEDS ORDERED: acetaminophen 325mg tablet PO PRN (01:05)
[2019-12-22] MEDS ORDERED: ondansetron/PF 4mg/2ml inj IV PRN (01:05)
[2019-12-22] MEDS ORDERED: potassium Cl 20 mEq SR tablet PO PRN ×2 (01:05)
[2019-12-22] MEDS ORDERED: potassium CL 10mEq/100ml bag 100 ML IV PRN ×2 (01:05)
[2019-12-22] MEDS ORDERED: morphine 2 MG/ML inj. syringe IV PRN ×2 (01:05)
[2019-12-22] MEDS ORDERED: magnesium 2GM in 50ml NS 50 ML IV PRN (01:05)
[2019-12-22] MEDS ORDERED: magnesium Cl slow-release 64mg tablet PO PRN (01:05)
[2019-12-22] MEDS ORDERED: magnesium hydroxide 30ml (MOM) UD suspension PO PRN (01:05)
[2019-12-22] MEDS ORDERED: magnesium 4gm in 100ml NS 100 ML IV PRN (01:05)
[2019-12-22] MEDS ORDERED: VANCOmycin 1250MG/NS 250ml Bag 250 ML IV SCH (01:34)
[2019-12-22 01:38] LABS: ETHANOL < 0.010 GM/DL (0.0-0.010)
[2019-12-22] MEDS ORDERED: labetalol 20mg/4ml (5mg/ml) syringe IV ONE (02:05)
--- NOTE | 2019-12-22 02:26 | NUR ---
PICTURES OF OPEN WOUND TAKEN AND PLACED IN CHART .
[2019-12-22 02:30] VITALS: BP 120/71
--- NOTE | 2019-12-22 02:30 | NUR ---
pt arrived to PCU unit via gurney from ER, pt is alert and oriented, pt is not in any respiratory distress at this moment, will continue to monitor
[2019-12-22] MEDS: enoxaparin 40mg/0.4ml syringe SUBCUT SCH ×2 (03:12→09:45)
[2019-12-22] MEDS: albuterol 2.5 MG/3 ML nebule NEB SCH ×5 (04:33→23:23)
--- NOTE | 2019-12-22 06:30 | NUR ---
Patient in room PCU 3019. I have received report from JASON Lujan and had the opportunity to ask questions and assume patient care.
--- NOTE | 2019-12-22 06:30 | NUR ---
Patient in room PCU 3019. I have received report from JASON Lujan and had the opportunity to ask questions and assume patient care.
--- NOTE | 2019-12-22 06:36 | NUR ---
Problems reprioritized. Patient report given, questions answered & plan of care reviewed with Melany GOMEZ.
[2019-12-22] MEDS ORDERED: apixaban 5mg tablet PO SCH (08:00)
[2019-12-22] MEDS: K and/or MAG REPLACEMENT MC SCH ×2 (08:00→20:00)
[2019-12-22] MEDS ORDERED: diltiazem CD 120mg capsule (once-daily) PO SCH (08:00)
[2019-12-22] MEDS: budesonide 0.5mg/2ml UD nebule IH SCH ×2 (09:00→20:05)
[2019-12-22] MEDS: piperacillin/tazo 4.5gm/100ml 100 ML IV SCH ×3 (09:05→23:25)
[2019-12-22] MEDS: lactobacillus rhamnosus 10,000 MMU CELLS/CAPSULE PO SCH ×2 (09:44→19:24)
[2019-12-22] MEDS: metoprolol tartrate 25mg tablet PO SCH ×2 (09:46→19:24)
[2019-12-22] MEDS: hydrALAZINE 25 MG tablet PO SCH ×2 (09:46→19:24)
[2019-12-22 11:00] VITALS: BP 103/49
[2019-12-22 15:00] VITALS: BP 143/89
--- NOTE | 2019-12-22 15:45 | NUR ---
New orders from [facility] for a breathing treatment, ABGs, Urine and and alcohol tox screen Addendum: 12/22/19 at 1920 by Melany Durbin RN Pt switched to mech soft diet
[2019-12-22] MEDS: VANCOmycin 1250MG/NS 250ml Bag 250 ML IV SCH ×2 (15:56→21:25)
[2019-12-22 16:31] LABS: ABG BASE EXCESS -0.7 mmol/L (-2.0-3.0); ABG HCO3 25.1 mmol/L (22.0-26.0); ABG OXYGEN SATURATION 96.3 % (95-98); ABG PH (T) 7.346 (7.350-7.450); ALLEN'S TEST POSITIVE; FCOHb 0.3 % (0.5-1.5); FLOW 3 L/min; FMetHb 0.1 % (0.3-1.12); FO2Hb 95.9 % (94-100); TOTAL HEMOGLOBIN 9.8 G/dl (12.0-16.0)
[2019-12-22 18:30] VITALS: BP 131/79
--- NOTE | 2019-12-22 18:30 | NUR ---
Patient in room PCU 3019. I have received report from Melany GOMEZ and had the opportunity to ask questions and assume patient care.
--- NOTE | 2019-12-22 19:19 | NUR ---
Problems reprioritized. Patient report given, questions answered & plan of care reviewed with JASON Martini.
[2019-12-22 22:00] VITALS: BP 114/60
[2019-12-22] MEDS: acetaminophen 325mg tablet PO PRN (23:26)
[2019-12-23 02:30] VITALS: BP 126/82
[2019-12-23] MEDS: albuterol 2.5 MG/3 ML nebule NEB SCH ×5 (03:30→20:33)
--- NOTE | 2019-12-23 06:05 | NUR ---
Problems reprioritized. Patient report given, questions answered & plan of care reviewed with Melany GOMEZ.
--- NOTE | 2019-12-23 06:07 | NUR ---
Patient in room PCU 3019. I have received report from JASON Martini and had the opportunity to ask questions and assume patient care.
[2019-12-23 07:00] VITALS: BP 140/77
[2019-12-23 07:10] LABS: BASOPHILS % (AUTO) 0.4 % (0-1); EOSINOPHILS # (AUTO) 0.1 X10'3 (0-0.9); EOSINOPHILS % (AUTO) 2.2 % (0-6); HEMATOCRIT 28.3 % (35.0-45.0); LYMPHOCYTES # (AUTO) 0.9 X10'3 (1.1-4.8); LYMPHOCYTES % (AUTO) 15.4 % (21-51); MEAN CORPUSCULAR HEMOGLOBIN 25.7 PG (27.0-31.0); MEAN CORPUSCULAR HGB CONC 31.8 g/dL (33.0-36.5); MEAN CORPUSCULAR VOLUME 80.6 FL (78-98); MEAN PLATELET VOLUME 7.9 FL (7.4-10.4); MONOCYTES # (AUTO) 0.9 X10'3 (0-0.9); MONOCYTES % (AUTO) 15.2 % (2-12); NEUTROPHILS % (AUTO) 66.8 % (42-75); PLATELET COUNT 402 X10'3 (140-440); RED BLOOD COUNT 3.51 X10'6 (4.20-5.60); RED CELL DISTRIBUTION WIDTH 17.5 % (11.5-14.5)
[2019-12-23] MEDS: budesonide 0.5mg/2ml UD nebule IH SCH ×2 (07:30→20:33)
[2019-12-23 07:36] LABS: URINE AMPHETAMINE SCREEN NEGATIVE (Neg); URINE BARBITUATE SCREEN NEGATIVE (Neg); URINE BENZODIAZEPINES SCREEN NEGATIVE (Neg); URINE CANNABINOID SCREEN NEGATIVE (Neg); URINE COCAINE SCREEN NEGATIVE (Neg); URINE METHADONE SCREEN NEGATIVE (Neg); URINE OPIATE SCREEN POSITIVE (Neg); URINE PHENCYCLIDINE SCREEN NEGATIVE (Neg)
[2019-12-23] MEDS: K and/or MAG REPLACEMENT MC SCH ×2 (07:38→18:12)
[2019-12-23] MEDS: piperacillin/tazo 4.5gm/100ml 100 ML IV SCH ×3 (07:38→23:59)
[2019-12-23] MEDS: lactobacillus rhamnosus 10,000 MMU CELLS/CAPSULE PO SCH ×2 (07:40→21:15)
[2019-12-23] MEDS: enoxaparin 40mg/0.4ml syringe SUBCUT SCH (07:44)
[2019-12-23] MEDS: hydrALAZINE 25 MG tablet PO SCH ×2 (07:44→21:15)
[2019-12-23] MEDS: metoprolol tartrate 25mg tablet PO SCH (07:44)
[2019-12-23 08:00] LABS: ALANINE AMINOTRANSFERASE 27 U/L (12-78); ALBUMIN/GLOBULIN RATIO 0.5 (1.1-1.5); ALKALINE PHOSPHATASE 125 IU/L (46-116); ASPARTATE AMINO TRANSFERASE 27 U/L (10-37); BILIRUBIN,TOTAL 0.2 MG/DL (0.1-1.0); BLOOD UREA NITROGEN 23 MG/DL (7-18); BUN/CREATININE RATIO 19.7 (6.6-38.0); CALCIUM 8.6 MG/DL (8.5-10.1); CHLORIDE 112 MMOL/L (99-107); CHOL/HDL RATIO 3.3 (0.00-4.99); CHOLESTEROL 152 MG/DL (0-200); CREATININE 1.17 MG/DL (0.40-0.90); FERRITIN 66 NG/ML (8-252); GLUCOSE 68 MG/DL (70-104); HDL CHOLESTEROL 46 MG/DL (35-60); LDL CHOLESTEROL 90 MG/DL (50-100); MAGNESIUM 2.5 MG/DL (1.5-2.4); TOTAL CARBON DIOXIDE 26.7 MMOL/L (24-32); TOTAL PROTEIN 6.4 G/DL (6.4-8.2); TRIGLYCERIDES 77 MG/DL (20-135); eGFR 46 ML/MIN
[2019-12-23 08:07] LABS: ANION GAP 9 (8-16); SODIUM 148 MMOL/L (135-145)
[2019-12-23 08:10] LABS: ANISOCYTOSIS 1+; LARGE PLATELETS FEW; PLATELET ESTIMATE NORMAL; TOTAL CELLS COUNTED 100
[2019-12-23 08:25] LABS: % IRON SATURATION 5 % (11-46); IRON 13 UG/DL (49-151); TOTAL IRON BINDING CAPACITY 264 UG/DL (259-388)
--- NOTE | 2019-12-23 10:01 | NUR ---
[facility] and nystatin powder BID.
[2019-12-23 11:00] VITALS: BP 141/78
--- NOTE | 2019-12-23 11:26 | NUR ---
PAGER ID: [phone] MESSAGE: [id number]: Lena Knight - Pt had few brief episodes of bradycardia in the 30s. Longest pause 2.83 sec. Apparently happens every admit -Melany [phone]
--- NOTE | 2019-12-23 11:31 | NUR ---
PAGER ID: [phone] MESSAGE: [id number]: Lena OLVERA: Pt had the longest pause now of 3.11 secs -Melany [phone]
[2019-12-23] MEDS: VANCOmycin 1250MG/NS 250ml Bag 250 ML IV SCH ×2 (11:46→21:15)
[2019-12-23 15:00] VITALS: BP 129/80
--- NOTE | 2019-12-23 18:21 | NUR ---
Problems reprioritized. Patient report given, questions answered & plan of care reviewed with JASON Martini.
--- NOTE | 2019-12-23 18:30 | NUR ---
Patient in room PCU 3019. I have received report from renzo camp and had the opportunity to ask questions and assume patient care.
[2019-12-23 19:00] VITALS: BP 131/82
[2019-12-23] MEDS: nystatin 15 GM powder TP SCH (21:30)
[2019-12-23] MEDS ORDERED: VANCOMYCIN LEVEL IV ONE (21:30)
[2019-12-23] MEDS: acetaminophen 325mg tablet PO PRN (22:16)
[2019-12-23 23:00] VITALS: BP 134/81
[2019-12-24] MEDS: albuterol 2.5 MG/3 ML nebule NEB SCH ×7 (02:29→23:00)
[2019-12-24 03:00] VITALS: BP 122/79
--- NOTE | 2019-12-24 04:13 | NUR ---
Notified Dr. Shepard per telephone of patient sinus pause estimated at 4.5 seconds. Doctor informed of patient previous episodes of sinus pauses and pt refusal of ppm. Will continue to monitor.
[2019-12-24 06:04] LABS: BASOPHILS % (AUTO) 0.7 % (0-1); EOSINOPHILS # (AUTO) 0.2 X10'3 (0-0.9); EOSINOPHILS % (AUTO) 4.3 % (0-6); HEMOGLOBIN 9.2 g/dl (12.0-16.0); LYMPHOCYTES # (AUTO) 0.8 X10'3 (1.1-4.8); LYMPHOCYTES % (AUTO) 14.3 % (21-51); MEAN CORPUSCULAR HEMOGLOBIN 25.4 PG (27.0-31.0); MEAN CORPUSCULAR HGB CONC 31.5 g/dL (33.0-36.5); MEAN CORPUSCULAR VOLUME 80.7 FL (78-98); MEAN PLATELET VOLUME 7.6 FL (7.4-10.4); MONOCYTES # (AUTO) 0.8 X10'3 (0-0.9); MONOCYTES % (AUTO) 14.9 % (2-12); NEUTROPHILS # (AUTO) 3.7 X10'3 (1.8-7.7); NEUTROPHILS % (AUTO) 65.8 % (42-75); PLATELET COUNT 387 X10'3 (140-440); RED CELL DISTRIBUTION WIDTH 17.3 % (11.5-14.5); WHITE BLOOD COUNT 5.6 X10'3 (4.5-11.0)
--- NOTE | 2019-12-24 06:07 | NUR ---
Patient in room PCU 3019. I have received report from JASON Martini and had the opportunity to ask questions and assume patient care.
--- NOTE | 2019-12-24 06:22 | NUR ---
Problems reprioritized. Patient report given, questions answered & plan of care reviewed with Melany GOMEZ.
[2019-12-24 06:26] LABS: ALANINE AMINOTRANSFERASE 23 U/L (12-78); ALBUMIN 2.1 G/DL (3.4-5.0); ALBUMIN/GLOBULIN RATIO 0.5 (1.1-1.5); ALKALINE PHOSPHATASE 121 IU/L (46-116); ANION GAP 7 (8-16); ASPARTATE AMINO TRANSFERASE 18 U/L (10-37); BILIRUBIN,TOTAL 0.2 MG/DL (0.1-1.0); BLOOD UREA NITROGEN 22 MG/DL (7-18); BUN/CREATININE RATIO 16.2 (6.6-38.0); CALCIUM 8.9 MG/DL (8.5-10.1); CHLORIDE 111 MMOL/L (99-107); CREATININE 1.36 MG/DL (0.40-0.90); GLUCOSE 91 MG/DL (70-104); MAGNESIUM 2.5 MG/DL (1.5-2.4); POTASSIUM 3.9 MMOL/L (3.5-5.1); SODIUM 146 MMOL/L (135-145); TOTAL CARBON DIOXIDE 28.2 MMOL/L (24-32); TOTAL PROTEIN 6.7 G/DL (6.4-8.2); eGFR 39 ML/MIN
[2019-12-24] MEDS: budesonide 0.5mg/2ml UD nebule IH SCH ×2 (06:55→20:36)
[2019-12-24 07:00] VITALS: BP 131/70
[2019-12-24] MEDS: K and/or MAG REPLACEMENT MC SCH ×2 (08:12→19:13)
[2019-12-24] MEDS: piperacillin/tazo 4.5gm/100ml 100 ML IV SCH ×3 (08:26→23:56)
[2019-12-24] MEDS: lactobacillus rhamnosus 10,000 MMU CELLS/CAPSULE PO SCH ×2 (08:26→19:12)
[2019-12-24] MEDS: enoxaparin 40mg/0.4ml syringe SUBCUT SCH (08:27)
[2019-12-24] MEDS: hydrALAZINE 25 MG tablet PO SCH ×2 (08:27→19:12)
[2019-12-24] MEDS: nystatin 15 GM powder TP SCH ×2 (08:35→19:11)
[2019-12-24 12:00] VITALS: BP 114/77
[2019-12-24] MEDS: vancomycin/NS 1 GM ADD-VANTAGE 250 ML IV SCH (13:19)
[2019-12-24 15:00] VITALS: BP 163/93
[2019-12-24 18:00] VITALS: BP 150/74
--- NOTE | 2019-12-24 18:39 | NUR ---
Problems reprioritized. Patient report given, questions answered & plan of care reviewed with JASON Mora.
[2019-12-24] MEDS: acetaminophen 325mg tablet PO PRN (19:12)
--- NOTE | 2019-12-24 21:14 | NUR ---
3010K LEX MONCADA HAD 5 SECOND PAUSE, ASYMPTOMATIC, SSS KNOWN; 7 SECOND PAUSE DAY SHIFT. NOTIFIED LITZY VÁZQUEZ, NO NEW ORDERS, PATIENT HAS SICK SINUS SYNDROME, NOTED HISTORICALLY AND CURRENTLY IN CHART. PATIENT HAD 5 SECOND PAUSE, THEN SEVEN SECOND PAUSE.
[2019-12-24 22:00] VITALS: BP 121/74
[2019-12-25] MEDS: vancomycin/NS 1 GM ADD-VANTAGE 250 ML IV SCH ×2 (01:23→13:48)
[2019-12-25 02:00] VITALS: BP 114/75
[2019-12-25] MEDS: albuterol 2.5 MG/3 ML nebule NEB SCH ×6 (03:17→23:42)
[2019-12-25 05:54] LABS: BASOPHILS % (AUTO) 0.3 % (0-1); EOSINOPHILS # (AUTO) 0.3 X10'3 (0-0.9); EOSINOPHILS % (AUTO) 4.4 % (0-6); HEMATOCRIT 30.3 % (35.0-45.0); HEMOGLOBIN 9.4 g/dl (12.0-16.0); LYMPHOCYTES # (AUTO) 0.8 X10'3 (1.1-4.8); LYMPHOCYTES % (AUTO) 12.8 % (21-51); MEAN CORPUSCULAR HEMOGLOBIN 24.6 PG (27.0-31.0); MEAN CORPUSCULAR VOLUME 79.4 FL (78-98); MEAN PLATELET VOLUME 7.7 FL (7.4-10.4); MONOCYTES # (AUTO) 0.8 X10'3 (0-0.9); MONOCYTES % (AUTO) 14.2 % (2-12); NEUTROPHILS % (AUTO) 68.3 % (42-75); PLATELET COUNT 413 X10'3 (140-440); RED BLOOD COUNT 3.81 X10'6 (4.20-5.60); WHITE BLOOD COUNT 5.9 X10'3 (4.5-11.0)
--- NOTE | 2019-12-25 06:10 | NUR ---
Patient in room PCU 3019. I have received report from Abby GOMEZ and had the opportunity to ask questions and assume patient care. Patient is resting in bed at this time, unlabored respirations, offers no complaints, will continue to monitor.
[2019-12-25 06:32] LABS: ALANINE AMINOTRANSFERASE 21 U/L (12-78); ALBUMIN 2.2 G/DL (3.4-5.0); ALBUMIN/GLOBULIN RATIO 0.5 (1.1-1.5); ALKALINE PHOSPHATASE 125 IU/L (46-116); ANION GAP 7 (8-16); ASPARTATE AMINO TRANSFERASE 18 U/L (10-37); BILIRUBIN,TOTAL 0.2 MG/DL (0.1-1.0); BLOOD UREA NITROGEN 18 MG/DL (7-18); BUN/CREATININE RATIO 15.5 (6.6-38.0); CALCIUM 8.9 MG/DL (8.5-10.1); CHLORIDE 111 MMOL/L (99-107); CREATININE 1.16 MG/DL (0.40-0.90); GLUCOSE 103 MG/DL (70-104); MAGNESIUM 2.3 MG/DL (1.5-2.4); SODIUM 146 MMOL/L (135-145); TOTAL PROTEIN 6.8 G/DL (6.4-8.2); eGFR 47 ML/MIN
--- NOTE | 2019-12-25 06:40 | NUR ---
Problems reprioritized. Patient report given, questions answered & plan of care reviewed with FELI GOMEZ.
[2019-12-25 07:00] VITALS: BP 147/73
[2019-12-25] MEDS: budesonide 0.5mg/2ml UD nebule IH SCH ×2 (07:07→19:58)
[2019-12-25] MEDS: K and/or MAG REPLACEMENT MC SCH ×2 (08:00→20:00)
[2019-12-25] MEDS: nystatin 15 GM powder TP SCH ×2 (08:00→20:41)
[2019-12-25] MEDS: piperacillin/tazo 4.5gm/100ml 100 ML IV SCH ×2 (08:00→17:15)
[2019-12-25] MEDS: hydrALAZINE 25 MG tablet PO SCH ×2 (09:49→20:41)
[2019-12-25] MEDS: lactobacillus rhamnosus 10,000 MMU CELLS/CAPSULE PO SCH ×2 (09:49→20:41)
[2019-12-25] MEDS: enoxaparin 40mg/0.4ml syringe SUBCUT SCH (09:51)
[2019-12-25 11:00] VITALS: BP 149/65
[2019-12-25 15:00] VITALS: BP 144/68
[2019-12-25 18:00] VITALS: BP 151/77
--- NOTE | 2019-12-25 18:43 | NUR ---
Problems reprioritized. Patient report given, questions answered & plan of care reviewed with May GOMEZ.
[2019-12-25 22:00] VITALS: BP 148/78
[2019-12-26] MEDS: vancomycin/NS 1 GM ADD-VANTAGE 250 ML IV SCH ×2 (00:11→15:53)
[2019-12-26] MEDS ORDERED: VANCOMYCIN LEVEL IV ONE (00:30)
[2019-12-26 00:36] LABS: BASOPHILS % (AUTO) 0.7 % (0-1); EOSINOPHILS # (AUTO) 0.2 X10'3 (0-0.9); EOSINOPHILS % (AUTO) 3.8 % (0-6); HEMATOCRIT 28.7 % (35.0-45.0); HEMOGLOBIN 8.9 g/dl (12.0-16.0); LYMPHOCYTES # (AUTO) 0.9 X10'3 (1.1-4.8); LYMPHOCYTES % (AUTO) 16.2 % (21-51); MEAN CORPUSCULAR HEMOGLOBIN 24.9 PG (27.0-31.0); MEAN CORPUSCULAR VOLUME 80.2 FL (78-98); MEAN PLATELET VOLUME 7.4 FL (7.4-10.4); MONOCYTES # (AUTO) 0.7 X10'3 (0-0.9); MONOCYTES % (AUTO) 13.7 % (2-12); NEUTROPHILS # (AUTO) 3.6 X10'3 (1.8-7.7); NEUTROPHILS % (AUTO) 65.6 % (42-75); PLATELET COUNT 395 X10'3 (140-440); RED BLOOD COUNT 3.58 X10'6 (4.20-5.60); RED CELL DISTRIBUTION WIDTH 17.2 % (11.5-14.5); WHITE BLOOD COUNT 5.4 X10'3 (4.5-11.0)
[2019-12-26 00:44] LABS: ALANINE AMINOTRANSFERASE 25 U/L (12-78); ALBUMIN 2.1 G/DL (3.4-5.0); ALBUMIN/GLOBULIN RATIO 0.5 (1.1-1.5); ALKALINE PHOSPHATASE 123 IU/L (46-116); ANION GAP 4 (8-16); ASPARTATE AMINO TRANSFERASE 16 U/L (10-37); BILIRUBIN,TOTAL 0.2 MG/DL (0.1-1.0); BLOOD UREA NITROGEN 15 MG/DL (7-18); BUN/CREATININE RATIO 12.4 (6.6-38.0); CALCIUM 8.5 MG/DL (8.5-10.1); CHLORIDE 111 MMOL/L (99-107); CREATININE 1.21 MG/DL (0.40-0.90); GLUCOSE 96 MG/DL (70-104); MAGNESIUM 2.3 MG/DL (1.5-2.4); POTASSIUM 3.7 MMOL/L (3.5-5.1); SODIUM 146 MMOL/L (135-145); TOTAL CARBON DIOXIDE 31.1 MMOL/L (24-32); TOTAL PROTEIN 6.4 G/DL (6.4-8.2); VANCOMYCIN,TROUGH 18.5 UG/ML (6.0-14.0); eGFR 45 ML/MIN
[2019-12-26 02:00] VITALS: BP 152/84
[2019-12-26] MEDS: piperacillin/tazo 4.5gm/100ml 100 ML IV SCH ×3 (02:16→17:36)
[2019-12-26] MEDS: albuterol 2.5 MG/3 ML nebule NEB SCH ×6 (03:04→22:57)
--- NOTE | 2019-12-26 03:46 | NUR ---
On 12/23 Patient had a 5 second pause and a 7 second pause, MD was made aware and no change in orders. Patient needs a Pacemaker but refuses. This morning @0335 patient had a 7 second pause. Will continue to monitor. VSS. Patient was easily arousable.
--- NOTE | 2019-12-26 06:25 | NUR ---
Problems reprioritized. Patient report given, questions answered & plan of care reviewed with Mariana GOMEZ.
[2019-12-26 07:00] VITALS: BP 155/78
[2019-12-26] MEDS: budesonide 0.5mg/2ml UD nebule IH SCH ×2 (07:10→19:04)
[2019-12-26] MEDS: hydrALAZINE 25 MG tablet PO SCH ×2 (07:57→21:03)
[2019-12-26] MEDS: lactobacillus rhamnosus 10,000 MMU CELLS/CAPSULE PO SCH ×2 (07:57→21:03)
[2019-12-26] MEDS: enoxaparin 40mg/0.4ml syringe SUBCUT SCH (07:59)
[2019-12-26] MEDS: nystatin 15 GM powder TP SCH ×2 (07:59→21:03)
[2019-12-26] MEDS: K and/or MAG REPLACEMENT MC SCH ×2 (08:00→20:00)
[2019-12-26 11:00] VITALS: BP 153/84
[2019-12-26] MEDS: metoprolol succinate 25mg (24-HOUR) SR. Tablet PO SCH (11:31)
[2019-12-26] MEDS: iron sucrose complex injection 200 MG in normal saline 100ml IV soln 100 ML IV SCH (12:26)
[2019-12-26 15:00] VITALS: BP 149/70
[2019-12-26 16:23] LABS: OCCULT BLOOD STOOL NEGATIVE (Neg)
--- NOTE | 2019-12-26 17:21 | NUR ---
New PIV placed, wound care done, patient is hoping to go home in the am as she needs to make it to her payee between 9am and noon tomorrow. Will continue to monitor, and relay that information to the MD for discharge tomorrow.
--- NOTE | 2019-12-26 18:42 | NUR ---
Problems reprioritized. Patient report given, questions answered & plan of care reviewed with Ronnie GOMEZ.
[2019-12-26 18:50] VITALS: BP 136/56
[2019-12-26] MEDS: acetaminophen 325mg tablet PO PRN (19:43)
[2019-12-26 23:00] VITALS: BP 131/66
--- NOTE | 2019-12-27 | NUR ---
PAGER ID: [phone] MESSAGE: [phone]. [phone] JASON Trujillo. Patient in 3019. Admitted for bilateral lower extremity cellulitis and Afib. Now in sick sinus syndrome. Frequent pauses. Longest pause 9 sec at 2347. 148/70 HR 103. Parameters for MD notification??
--- NOTE | 2019-12-27 00:09 | NUR ---
Spoke with Dr. Palma regarding patient's rhythm pauses with most recent at 9 seconds at 2347. Patient easily roused and appropriate. Miscellaneous nursing order to only notify if pause greater than 10 seconds and, or, symptomatic. Will continue to monitor closely.
[2019-12-27] MEDS: piperacillin/tazo 4.5gm/100ml 100 ML IV SCH ×2 (00:32→07:12)
[2019-12-27] MEDS: vancomycin/NS 1 GM ADD-VANTAGE 250 ML IV SCH (00:39)
[2019-12-27] MEDS: albuterol 2.5 MG/3 ML nebule NEB SCH ×4 (02:59→15:01)
[2019-12-27 03:00] VITALS: BP 139/63
[2019-12-27 05:27] LABS: BASOPHILS % (AUTO) 0.4 % (0-1); EOSINOPHILS # (AUTO) 0.2 X10'3 (0-0.9); EOSINOPHILS % (AUTO) 3.3 % (0-6); HEMATOCRIT 30.5 % (35.0-45.0); HEMOGLOBIN 9.6 g/dl (12.0-16.0); LYMPHOCYTES # (AUTO) 0.7 X10'3 (1.1-4.8); MEAN CORPUSCULAR HEMOGLOBIN 25.2 PG (27.0-31.0); MEAN CORPUSCULAR HGB CONC 31.4 g/dL (33.0-36.5); MEAN CORPUSCULAR VOLUME 80.3 FL (78-98); MEAN PLATELET VOLUME 7.8 FL (7.4-10.4); MONOCYTES # (AUTO) 0.7 X10'3 (0-0.9); NEUTROPHILS # (AUTO) 4.2 X10'3 (1.8-7.7); NEUTROPHILS % (AUTO) 72.3 % (42-75); PLATELET COUNT 419 X10'3 (140-440); RED BLOOD COUNT 3.79 X10'6 (4.20-5.60); RED CELL DISTRIBUTION WIDTH 17.2 % (11.5-14.5); WHITE BLOOD COUNT 5.8 X10'3 (4.5-11.0)
[2019-12-27 05:41] LABS: ALBUMIN 2.3 G/DL (3.4-5.0); ALBUMIN/GLOBULIN RATIO 0.5 (1.1-1.5); ANION GAP 5 (8-16); ASPARTATE AMINO TRANSFERASE 17 U/L (10-37); BILIRUBIN,TOTAL 0.2 MG/DL (0.1-1.0); BLOOD UREA NITROGEN 15 MG/DL (7-18); BUN/CREATININE RATIO 11.5 (6.6-38.0); CALCIUM 8.9 MG/DL (8.5-10.1); CHLORIDE 110 MMOL/L (99-107); CREATININE 1.31 MG/DL (0.40-0.90); GLUCOSE 90 MG/DL (70-104); MAGNESIUM 2.3 MG/DL (1.5-2.4); POTASSIUM 3.6 MMOL/L (3.5-5.1); SODIUM 146 MMOL/L (135-145); TOTAL CARBON DIOXIDE 30.8 MMOL/L (24-32); TOTAL PROTEIN 6.9 G/DL (6.4-8.2); eGFR 41 ML/MIN
[2019-12-27 05:42] LABS: ALANINE AMINOTRANSFERASE 20 U/L (12-78); ALKALINE PHOSPHATASE 124 IU/L (46-116)
--- NOTE | 2019-12-27 06:19 | NUR ---
Problems reprioritized. Patient report given, questions answered & plan of care reviewed with JASON Peña and JASON Schreiber.
--- NOTE | 2019-12-27 06:20 | NUR ---
Patient in room PCU 3019. I have received report from Jenn GOMEZ and had the opportunity to ask questions and assume patient care. Patient awake and oriented at this time, zosyn is running, will continue to monitor.
[2019-12-27 07:01] VITALS: BP 168/79
[2019-12-27] MEDS: metoprolol succinate 25mg (24-HOUR) SR. Tablet PO SCH (07:13)
[2019-12-27] MEDS: lactobacillus rhamnosus 10,000 MMU CELLS/CAPSULE PO SCH (07:13)
[2019-12-27] MEDS: budesonide 0.5mg/2ml UD nebule IH SCH (07:13)
[2019-12-27] MEDS: hydrALAZINE 25 MG tablet PO SCH (07:13)
[2019-12-27] MEDS: enoxaparin 40mg/0.4ml syringe SUBCUT SCH (07:15)
[2019-12-27] MEDS: nystatin 15 GM powder TP SCH (07:15)
[2019-12-27] MEDS: iron sucrose complex injection 200 MG in normal saline 100ml IV soln 100 ML IV SCH (07:43)
[2019-12-27] MEDS: K and/or MAG REPLACEMENT MC SCH (08:00)
[2019-12-27] MEDS ORDERED: SULF1TAB49 PO (08:53)
--- NOTE | 2019-12-27 10:56 | NUR ---
promotional table spacer PAGER ID: [phone] MESSAGE: Rm [phone], Maria De Jesus. Just wanted to clarify that this patient is being discharged, there is no discharge order in yet. Thank you, Mariana [phone]
[2019-12-27 11:00] VITALS: BP 125/62
--- NOTE | 2019-12-27 12:05 | NUR ---
Initial: Pt admit with BLE cellulitis and ALOC with unknown etiology. Pt now A/O x 4 per physical assessment. Pt on mechanical soft chop all diet documented with 75-100% PO intake meeting nutrient needs with adequate protein to support skin integrity. [facility] 12/26. No nutrition intervention warranted at this time. Will continue to follow. Recommendations: 1) Continue mechanical soft chop all diet 2) Monitor need for additional protein 3) Bowel care PRN 4) Wt per rx Addendum: 12/27/19 at [address] Amended: Links added.
[2019-12-27] MEDS: acetaminophen 325mg tablet PO PRN (14:03)
--- NOTE | 2019-12-27 16:12 | NUR ---
Patient was discharged home at 1530. Patient reviewed discharge packet before signing, all belongings sent home with patient including 4 wheel walker. RX called in to [facility] on [address], PIV removed with cannula intact, tele monitoring d/c'd, patient was given a card with telephone number for transportation service and a scheduled appt date for her wound care at the out patient clinic. Patient was wheeled down by staff and left via Lift.
== END 2019-12-27 15:49 | disposition home health service (06) | DRG 383 ==
LOC: ER 21:42 → UNDOADMIN 12-22 01:05 → ED HOLD 12-22 01:05 → EDBEDREQ 12-22 01:36 → CMPBEDREQ 12-22 03:29 → ED HOLD 12-22 03:30 → PCU 3S 12-22 03:30 → ED HOLD 12-27 08:57 → UNDOADMIN 12-27 08:57 → UNDODISIN 12-27 15:49
PROVIDERS: ADMIT Internal Medicine; ATTEND Internal Medicine
DX: L03.115 Cellulitis of right lower limb (principal); E66.01 Morbid (severe) obesity due to excess calories; I48.91 Unspecified atrial fibrillation; I50.9 Heart failure, unspecified; L03.116 Cellulitis of left lower limb; F20.9 Schizophrenia, unspecified; J44.9 Chronic obstructive pulmonary disease, unspecified; W18.39XA Other fall on same level, initial encounter; R00.0 Tachycardia, unspecified; D64.9 Anemia, unspecified; N39.0 Urinary tract infection, site not specified; Z59.0 Homelessness; Z86.73 Personal history of transient ischemic attack (TIA), and cerebral infarction without residual deficits; Y93.89 Activity, other specified; Y92.89 Other specified places as the place of occurrence of the external cause; Y99.8 Other external cause status; Z68.31 Body mass index [BMI] 31.0-31.9, adult
CPT/HCPCS: 36415; 36600; 70450; 71045; 80053; 80061; 80202; 80305; 80320; 81001; 82272; 82607; 82728; 82803; 83540; 83550; 83605; 83735; 83880; 84145; 84484; 85018; 85025; 85610; 85730; 87040; 87077; 87081; 87088; 87186; 93005; 93306; 94640; 94760; 96374; 96375; 97116; 97161; 97530; 99285; G0378; J1650; J1756; J2543; J3370; J3490; J7030; J7626

== ENCOUNTER 2020-01-12 04:57 | Inpatient (IN) | payer MEDICAID ==
[~2020-01-12] VITALS: Ht 165.1 cm; Wt 86.4 kg
[~2020-01-12 04:57] MED LIST changes: -ALBU8.5H8 INH; -CEFD300C3 PO; -HYDR-4069 PO; -NO HOME MEDS; -PRED10TA23 PO; +SULF1TAB49 PO
[2020-01-12 05:39] LABS: BASOPHILS # (AUTO) 0.1 X10'3 (0-0.2); BASOPHILS % (AUTO) 0.8 % (0-1); EOSINOPHILS # (AUTO) 0.2 X10'3 (0-0.9); EOSINOPHILS % (AUTO) 2.3 % (0-6); HEMATOCRIT 33.1 % (35.0-45.0); HEMOGLOBIN 10.4 g/dl (12.0-16.0); LYMPHOCYTES # (AUTO) 1.4 X10'3 (1.1-4.8); LYMPHOCYTES % (AUTO) 13.5 % (21-51); MEAN CORPUSCULAR HEMOGLOBIN 25.2 PG (27.0-31.0); MEAN CORPUSCULAR HGB CONC 31.3 g/dL (33.0-36.5); MEAN CORPUSCULAR VOLUME 80.5 FL (78-98); MEAN PLATELET VOLUME 7.7 FL (7.4-10.4); MONOCYTES # (AUTO) 1.2 X10'3 (0-0.9); MONOCYTES % (AUTO) 11.3 % (2-12); NEUTROPHILS # (AUTO) 7.6 X10'3 (1.8-7.7); NEUTROPHILS % (AUTO) 72.1 % (42-75); PLATELET COUNT 418 X10'3 (140-440); RED BLOOD COUNT 4.11 X10'6 (4.20-5.60); WHITE BLOOD COUNT 10.6 X10'3 (4.5-11.0)
[2020-01-12 05:55] LABS: ALANINE AMINOTRANSFERASE 34 U/L (12-78); ALBUMIN 2.7 G/DL (3.4-5.0); ALBUMIN/GLOBULIN RATIO 0.5 (1.1-1.5); ALKALINE PHOSPHATASE 153 IU/L (46-116); ANION GAP 8 (8-16); ASPARTATE AMINO TRANSFERASE 27 U/L (10-37); BILIRUBIN,TOTAL 0.1 MG/DL (0.1-1.0); BLOOD UREA NITROGEN 29 MG/DL (7-18); BUN/CREATININE RATIO 24.4 (6.6-38.0); CALCIUM 9.1 MG/DL (8.5-10.1); CHLORIDE 106 MMOL/L (99-107); CREATININE 1.19 MG/DL (0.40-0.90); GLUCOSE 95 MG/DL (70-104); POTASSIUM 4.6 MMOL/L (3.5-5.1); SODIUM 140 MMOL/L (135-145); TOTAL CARBON DIOXIDE 26.3 MMOL/L (24-32); TOTAL PROTEIN 7.9 G/DL (6.4-8.2); eGFR 46 ML/MIN
[2020-01-12] MEDS ORDERED: vancomycin/NS 1 GM ADD-VANTAGE 250 ML IV ONE (07:10)
[2020-01-12] MEDS ORDERED: piperacillin/tazo 3.375gm/50ml 50 ML IV ONE (07:10)
[2020-01-12] MEDS ORDERED: morphine 2 MG/ML inj. syringe IV PRN ×2 (07:25)
[2020-01-12] MEDS ORDERED: mag hydrox/Alum hydrox/simeth 30ml oral suspension PO PRN (07:25)
[2020-01-12] MEDS ORDERED: acetaminophen 325mg tablet PO PRN (07:25)
[2020-01-12] MEDS ORDERED: HYDROcodone/acetaminophen 10/325mg tab PO PRN (07:25)
[2020-01-12] MEDS ORDERED: magnesium hydroxide 30ml (MOM) UD suspension PO PRN (07:25)
[2020-01-12] MEDS ORDERED: ondansetron/PF 4mg/2ml inj IV PRN (07:25)
[2020-01-12] MEDS ORDERED: vancomycin/NS 1 GM ADD-VANTAGE 250 ML IV SCH (08:00)
[2020-01-12] MEDS: enoxaparin 40mg/0.4ml syringe SUBCUT SCH (08:14)
[2020-01-12] MEDS: lactobacillus rhamnosus 10,000 MMU CELLS/CAPSULE PO SCH ×2 (08:14→20:33)
[2020-01-12] MEDS: HYDROcodone/acetaminophen 5mg/325mg tablet PO PRN (08:19)
[2020-01-12] MEDS: CefTRIAXone/D5W-Rocephin 1gm 50 ML IV SCH (08:19)
[2020-01-12] MEDS: VANCOmycin 1250MG/NS 250ml Bag 250 ML IV SCH ×2 (08:41→20:33)
--- NOTE | 2020-01-12 08:55 | NUR ---
ASSIST PT TO BED BARRERA FOR VOIDING.
--- NOTE | 2020-01-12 09:43 | NUR ---
pt mumbling medications. unable to tell what she is on. looked up previous med rec from last dc and pt denies taking any of those medications at this time.
[2020-01-12] MEDS ORDERED: BUDE10.22 INH (10:44)
[2020-01-12] MEDS ORDERED: METO25TA6 PO (10:44)
[2020-01-12] MEDS ORDERED: AMLO5TAB16 PO (10:44)
--- NOTE | 2020-01-12 11:50 | NUR ---
Patient in room ED 3. I have received report from Hung in the ED and had the opportunity to ask questions and assume patient care.
[2020-01-12 12:13] VITALS: BP 149/70
[2020-01-12] MEDS: ipratropium/albuterol 3ml nebule NEB PRN ×2 (16:58→20:45)
[2020-01-12 18:15] VITALS: BP 135/68
--- NOTE | 2020-01-12 18:23 | NUR ---
Problems reprioritized. Patient report given, questions answered & plan of care reviewed with Archana.
--- NOTE | 2020-01-12 18:25 | NUR ---
Patient in room [facility] 349. I have received report from JASON Turcios and had the opportunity to ask questions and assume patient care.
[2020-01-12] MEDS: nystatin 15 GM powder TP SCH (23:32)
[2020-01-13 00:15] VITALS: BP 136/70
[2020-01-13 06:11] LABS: MEAN CORPUSCULAR HEMOGLOBIN 25.4 PG (27.0-31.0)
[2020-01-13 06:13] LABS: HEMATOCRIT 30.9 % (35.0-45.0); HEMOGLOBIN 9.7 g/dl (12.0-16.0); MEAN CORPUSCULAR HGB CONC 31.5 g/dL (33.0-36.5); MEAN CORPUSCULAR VOLUME 80.6 FL (78-98); PLATELET COUNT 384 X10'3 (140-440); RED BLOOD COUNT 3.84 X10'6 (4.20-5.60); RED CELL DISTRIBUTION WIDTH 18.4 % (11.5-14.5); WHITE BLOOD COUNT 7.9 X10'3 (4.5-11.0)
[2020-01-13 06:23] LABS: ALBUMIN 2.1 G/DL (3.4-5.0); ANION GAP 4 (8-16); BLOOD UREA NITROGEN 23 MG/DL (7-18); BUN/CREATININE RATIO 16.9 (6.6-38.0); CALCIUM 8.6 MG/DL (8.5-10.1); CHLORIDE 109 MMOL/L (99-107); CREATININE 1.36 MG/DL (0.40-0.90); GLUCOSE 79 MG/DL (70-104); SODIUM 142 MMOL/L (135-145); TOTAL CARBON DIOXIDE 29.1 MMOL/L (24-32); eGFR 39 ML/MIN
[2020-01-13 06:26] LABS: POTASSIUM 4.5 MMOL/L (3.5-5.1)
--- NOTE | 2020-01-13 06:31 | NUR ---
Problems reprioritized. Patient report given, questions answered & plan of care reviewed with JASON Hernandez.
[2020-01-13 07:03] LABS: TOTAL CELLS COUNTED 100
[2020-01-13 07:04] LABS: ANISOCYTOSIS 2+; PLATELET ESTIMATE NORMAL
[2020-01-13 07:05] LABS: HYPOCHROMASIA 1+; POLYCHROMASIA FEW
[2020-01-13 07:30] VITALS: BP 140/65
[2020-01-13] MEDS: lactobacillus rhamnosus 10,000 MMU CELLS/CAPSULE PO SCH ×2 (07:42→19:21)
[2020-01-13] MEDS: CefTRIAXone/D5W-Rocephin 1gm 50 ML IV SCH (07:42)
[2020-01-13] MEDS: nystatin 15 GM powder TP SCH ×3 (07:43→21:54)
[2020-01-13] MEDS: enoxaparin 40mg/0.4ml syringe SUBCUT SCH (07:43)
--- NOTE | 2020-01-13 08:03 | NUR ---
Paged respiratory: Please visit 349B Lena Pretty for RT tx- SOB requiring 5 LPM 02 to stay > 95% per order.
[2020-01-13] MEDS: ipratropium/albuterol 3ml nebule NEB PRN (08:15)
[2020-01-13] MEDS: VANCOmycin 1250MG/NS 250ml Bag 250 ML IV SCH ×2 (09:16→21:53)
--- NOTE | 2020-01-13 10:05 | NUR ---
Discussed respiratory therapist recommendation for scheduled treatments. Discussed rash on bilateral arms, and oxygen parameter, and tachycardic rate. MD does not currently want pt. on telemetry r/t the fact that the "pt. would not want treatment for symptoms anyway". See other new orders.
[2020-01-13] MEDS: ipratropium/albuterol 3ml nebule NEB SCH ×4 (11:16→23:41)
--- NOTE | 2020-01-13 12:00 | NUR ---
Spoke with RT regarding "allergy" to INHALED MEDICATIONS. RT states pt. has been receiving breathing treatments with no ASE. Pt. reports not having a reaction since she was in her 20s but that Albuterol made her arms go numb. Pt. is a poor historian as she keeps drifting off to sleep during conversations and refuses to elaborate. RT thinks the allergy is more likely r/t propellants in hand held inhaled medications. Paged to inform.
--- NOTE | 2020-01-13 12:15 | NUR ---
PAGER ID: [phone] MESSAGE: Lena Pretty 349B FYI pt. allergies state INHALED MEDICATIONS- no elaboration. PT states last reaction of numb arms was when she was in 20s, was handheld albuterol. RT thinks its propellant in handheld. -Mary
--- NOTE | 2020-01-13 12:17 | NUR ---
Paged respiratory to update on pt. response.
[2020-01-13 12:22] VITALS: BP 141/69
[2020-01-13] MEDS: HYDROcodone/acetaminophen 5mg/325mg tablet PO PRN (12:30)
[2020-01-13] MEDS: lisinopril 5mg tablet PO SCH (12:31)
--- NOTE | 2020-01-13 14:12 | NUR ---
Malnutrition consult: Pt unsure of wt loss however reports decreased appetite per malnutrition risk screen with RN. Pt currently documented as A/O x 2 so information was obtained from EMR. Pt with fluctuating wt hx, scaled weights range from 98-109 kg, however most pt stated weights are in the 80 kg range. Current documented wt is pt stated at 86.36 kg which pt also reportedly weighed at last visit 12/20. Pt currently on a heart healthy diet, documented with 0% PO intake first meal up to 75-100% at dinner, then back down to 25% at breakfast this morning. Pt historically with 75-100% PO intake during admissions. Pt with no documented significant decrease in muscle strength however with mild BLE 2+ edema. Pt currently lacks a minimum of two criteria for malnutrition. Will continue to follow and monitor need for nutrition intervention. Addendum: 01/13/20 at [address] Amended: Links added.
[2020-01-13] MEDS: mineral oil/petrolatum, white cream 113gm jar TP SCH (15:57)
[2020-01-13] MEDS: acetaminophen 325mg tablet PO PRN ×2 (15:58→21:53)
--- NOTE | 2020-01-13 18:10 | NUR ---
Gave report to Archana GOMEZ.
[2020-01-13 18:15] VITALS: BP 131/59
--- NOTE | 2020-01-13 18:30 | NUR ---
Patient in room [facility] 349. I have received report from JASON Hernandez and had the opportunity to ask questions and assume patient care.
--- NOTE | 2020-01-13 20:01 | NUR ---
Patient's last bowel movement was on 01/10/2020. Offered patient MOM faby and patient refused. Will address with nurse in the morning
[2020-01-13] MEDS ORDERED: VANCOMYCIN LEVEL IV ONE (20:30)
--- NOTE | 2020-01-13 21:41 | NUR ---
Vanco trough 19.9. Talk to Silvina and jeremías to administer 2100 Vanco 1250mg. Will continue to monitor patient.
[2020-01-14 00:15] VITALS: BP 135/64
[2020-01-14] MEDS: ipratropium/albuterol 3ml nebule NEB SCH ×6 (03:36→23:04)
[2020-01-14 05:54] LABS: BASOPHILS % (AUTO) 0.3 % (0-1); EOSINOPHILS # (AUTO) 0.2 X10'3 (0-0.9); EOSINOPHILS % (AUTO) 3.6 % (0-6); HEMATOCRIT 31.9 % (35.0-45.0); HEMOGLOBIN 9.7 g/dl (12.0-16.0); MEAN CORPUSCULAR HEMOGLOBIN 24.5 PG (27.0-31.0); MEAN CORPUSCULAR HGB CONC 30.3 g/dL (33.0-36.5); MEAN CORPUSCULAR VOLUME 80.7 FL (78-98); MEAN PLATELET VOLUME 7.9 FL (7.4-10.4); MONOCYTES # (AUTO) 0.9 X10'3 (0-0.9); NEUTROPHILS # (AUTO) 4.7 X10'3 (1.8-7.7); NEUTROPHILS % (AUTO) 69.1 % (42-75); PLATELET COUNT 389 X10'3 (140-440); RED BLOOD COUNT 3.95 X10'6 (4.20-5.60); RED CELL DISTRIBUTION WIDTH 18.3 % (11.5-14.5); WHITE BLOOD COUNT 6.8 X10'3 (4.5-11.0)
[2020-01-14 06:17] LABS: ALBUMIN 2.1 G/DL (3.4-5.0); BLOOD UREA NITROGEN 21 MG/DL (7-18); BUN/CREATININE RATIO 17.2 (6.6-38.0); CALCIUM 8.9 MG/DL (8.5-10.1); CHLORIDE 108 MMOL/L (99-107); CREATININE 1.22 MG/DL (0.40-0.90); GLUCOSE 93 MG/DL (70-104); POTASSIUM 4.3 MMOL/L (3.5-5.1); eGFR 44 ML/MIN
--- NOTE | 2020-01-14 06:31 | NUR ---
Patient in room [facility] 349. I have received report from Archana and had the opportunity to ask questions and assume patient care.
--- NOTE | 2020-01-14 06:35 | NUR ---
Problems reprioritized. Patient report given, questions answered & plan of care reviewed with JASON Turcios.
[2020-01-14 06:39] LABS: ANION GAP 6 (8-16); SODIUM 142 MMOL/L (135-145); TOTAL CARBON DIOXIDE 28.2 MMOL/L (24-32)
[2020-01-14 07:00] VITALS: BP 144/76
[2020-01-14] MEDS: CefTRIAXone/D5W-Rocephin 1gm 50 ML IV SCH (08:28)
[2020-01-14] MEDS: lactobacillus rhamnosus 10,000 MMU CELLS/CAPSULE PO SCH ×2 (08:28→19:38)
[2020-01-14] MEDS: enoxaparin 40mg/0.4ml syringe SUBCUT SCH (08:29)
[2020-01-14] MEDS: mineral oil/petrolatum, white cream 113gm jar TP SCH (08:37)
[2020-01-14] MEDS: nystatin 15 GM powder TP SCH ×3 (08:38→21:21)
[2020-01-14 08:40] VITALS: BP 121/73
[2020-01-14] MEDS: lisinopril 5mg tablet PO SCH (08:44)
[2020-01-14] MEDS: VANCOmycin 1250MG/NS 250ml Bag 250 ML IV SCH ×2 (09:45→21:21)
[2020-01-14 11:00] VITALS: BP 135/109
--- NOTE | 2020-01-14 18:06 | NUR ---
Problems reprioritized. Patient report given, questions answered & plan of care reviewed with Archana.
[2020-01-14 18:15] VITALS: BP 137/66
--- NOTE | 2020-01-14 18:42 | NUR ---
Patient in room [facility] 349. I have received report from JASON Turcios and had the opportunity to ask questions and assume patient care.
[2020-01-15 00:15] VITALS: BP 161/83
[2020-01-15 01:00] VITALS: BP 160/85
[2020-01-15] MEDS: ipratropium/albuterol 3ml nebule NEB SCH ×6 (02:42→23:10)
[2020-01-15 05:07] LABS: BASOPHILS % (AUTO) 0.6 % (0-1); EOSINOPHILS # (AUTO) 0.2 X10'3 (0-0.9); EOSINOPHILS % (AUTO) 3.9 % (0-6); HEMATOCRIT 30.9 % (35.0-45.0); HEMOGLOBIN 9.6 g/dl (12.0-16.0); LYMPHOCYTES # (AUTO) 0.9 X10'3 (1.1-4.8); MEAN CORPUSCULAR HEMOGLOBIN 24.7 PG (27.0-31.0); MEAN CORPUSCULAR HGB CONC 31.2 g/dL (33.0-36.5); MEAN CORPUSCULAR VOLUME 79.2 FL (78-98); MEAN PLATELET VOLUME 7.5 FL (7.4-10.4); MONOCYTES # (AUTO) 0.7 X10'3 (0-0.9); MONOCYTES % (AUTO) 13.1 % (2-12); NEUTROPHILS # (AUTO) 3.6 X10'3 (1.8-7.7); NEUTROPHILS % (AUTO) 66.4 % (42-75); PLATELET COUNT 371 X10'3 (140-440); RED CELL DISTRIBUTION WIDTH 18.4 % (11.5-14.5); WHITE BLOOD COUNT 5.5 X10'3 (4.5-11.0)
[2020-01-15 05:24] LABS: ALBUMIN 2.2 G/DL (3.4-5.0); ANION GAP 4 (8-16); BLOOD UREA NITROGEN 18 MG/DL (7-18); BUN/CREATININE RATIO 16.8 (6.6-38.0); CALCIUM 8.7 MG/DL (8.5-10.1); CHLORIDE 107 MMOL/L (99-107); CREATININE 1.07 MG/DL (0.40-0.90); GLUCOSE 94 MG/DL (70-104); POTASSIUM 4.2 MMOL/L (3.5-5.1); SODIUM 140 MMOL/L (135-145); eGFR 51 ML/MIN
--- NOTE | 2020-01-15 06:00 | NUR ---
Patient in room [facility] 349. I have received report from JASON Magaña and had the opportunity to ask questions and assume patient care.
--- NOTE | 2020-01-15 06:25 | NUR ---
Problems reprioritized. Patient report given, questions answered & plan of care reviewed with JASON Akers.
[2020-01-15 07:00] VITALS: BP 176/89
[2020-01-15] MEDS: CefTRIAXone/D5W-Rocephin 1gm 50 ML IV SCH (07:44)
[2020-01-15] MEDS: lactobacillus rhamnosus 10,000 MMU CELLS/CAPSULE PO SCH ×2 (07:44→21:33)
[2020-01-15] MEDS: lisinopril 5mg tablet PO SCH (07:44)
[2020-01-15] MEDS: enoxaparin 40mg/0.4ml syringe SUBCUT SCH (07:45)
[2020-01-15] MEDS: nystatin 15 GM powder TP SCH ×3 (07:45→21:35)
[2020-01-15] MEDS: mineral oil/petrolatum, white cream 113gm jar TP SCH (07:45)
[2020-01-15] MEDS: VANCOmycin 1250MG/NS 250ml Bag 250 ML IV SCH ×2 (09:18→21:34)
[2020-01-15 11:00] VITALS: BP 150/77
[2020-01-15] MEDS: amLODIPine 5mg tablet PO SCH (13:54)
--- NOTE | 2020-01-15 18:00 | NUR ---
Problems reprioritized. Patient report given, questions answered & plan of care reviewed with JASON Nguyen.
--- NOTE | 2020-01-15 18:20 | NUR ---
Patient in room [facility] 349. I have received report from Delphine GOMEZ and had the opportunity to ask questions and assume patient care.
[2020-01-15] MEDS: budesonide 0.5mg/2ml UD nebule IH SCH (19:28)
[2020-01-15 20:00] VITALS: BP 136/67
[2020-01-15] MEDS: metoprolol tartrate 25mg tablet PO SCH (21:34)
[2020-01-15 23:54] VITALS: BP 146/82
[2020-01-16 05:26] LABS: BASOPHILS % (AUTO) 0.3 % (0-1); EOSINOPHILS # (AUTO) 0.2 X10'3 (0-0.9); EOSINOPHILS % (AUTO) 3.9 % (0-6); HEMATOCRIT 32.4 % (35.0-45.0); HEMOGLOBIN 10.1 g/dl (12.0-16.0); LYMPHOCYTES # (AUTO) 0.8 X10'3 (1.1-4.8); MEAN CORPUSCULAR HEMOGLOBIN 24.7 PG (27.0-31.0); MEAN CORPUSCULAR VOLUME 79.6 FL (78-98); MEAN PLATELET VOLUME 7.6 FL (7.4-10.4); MONOCYTES # (AUTO) 0.6 X10'3 (0-0.9); MONOCYTES % (AUTO) 12.3 % (2-12); NEUTROPHILS # (AUTO) 3.5 X10'3 (1.8-7.7); NEUTROPHILS % (AUTO) 67.5 % (42-75); PLATELET COUNT 388 X10'3 (140-440); RED BLOOD COUNT 4.07 X10'6 (4.20-5.60); RED CELL DISTRIBUTION WIDTH 18.1 % (11.5-14.5); WHITE BLOOD COUNT 5.2 X10'3 (4.5-11.0)
[2020-01-16 05:48] LABS: ALBUMIN 2.3 G/DL (3.4-5.0); ANION GAP 8 (8-16); BLOOD UREA NITROGEN 17 MG/DL (7-18); BUN/CREATININE RATIO 15.6 (6.6-38.0); CALCIUM 9.1 MG/DL (8.5-10.1); CHLORIDE 105 MMOL/L (99-107); CREATININE 1.09 MG/DL (0.40-0.90); GLUCOSE 93 MG/DL (70-104); POTASSIUM 4.1 MMOL/L (3.5-5.1); SODIUM 142 MMOL/L (135-145); TOTAL CARBON DIOXIDE 29.3 MMOL/L (24-32); eGFR 50 ML/MIN
--- NOTE | 2020-01-16 06:43 | NUR ---
Problems reprioritized. Patient report given, questions answered & plan of care reviewed with Barbi GOMEZ.
[2020-01-16 08:00] VITALS: BP 174/86
[2020-01-16] MEDS: metoprolol tartrate 25mg tablet PO SCH ×2 (08:43→21:46)
[2020-01-16] MEDS: lactobacillus rhamnosus 10,000 MMU CELLS/CAPSULE PO SCH ×2 (08:43→21:46)
[2020-01-16] MEDS: lisinopril 5mg tablet PO SCH (08:43)
[2020-01-16] MEDS: amLODIPine 5mg tablet PO SCH (08:43)
[2020-01-16] MEDS: mineral oil/petrolatum, white cream 113gm jar TP SCH (08:44)
[2020-01-16] MEDS: nystatin 15 GM powder TP SCH ×3 (08:44→21:52)
[2020-01-16] MEDS: enoxaparin 40mg/0.4ml syringe SUBCUT SCH (08:44)
[2020-01-16] MEDS: CefTRIAXone/D5W-Rocephin 1gm 50 ML IV SCH (08:45)
[2020-01-16] MEDS: budesonide 0.5mg/2ml UD nebule IH SCH ×2 (08:57→19:44)
[2020-01-16] MEDS: VANCOmycin 1250MG/NS 250ml Bag 250 ML IV SCH ×2 (09:43→21:46)
[2020-01-16 11:00] VITALS: BP 182/92
--- NOTE | 2020-01-16 18:30 | NUR ---
Patient in room [facility] 349. I have received report from Barbi GOMEZ and had the opportunity to ask questions and assume patient care.
[2020-01-16] MEDS: albuterol 2.5 MG/3 ML nebule NEB PRN (19:45)
[2020-01-16 20:00] VITALS: BP 153/69
[2020-01-17 00:13] VITALS: BP 162/87
[2020-01-17] MEDS: albuterol 2.5 MG/3 ML nebule NEB PRN (03:04)
[2020-01-17 05:36] LABS: BASOPHILS % (AUTO) 0.6 % (0-1); EOSINOPHILS # (AUTO) 0.2 X10'3 (0-0.9); EOSINOPHILS % (AUTO) 4.8 % (0-6); HEMATOCRIT 34.5 % (35.0-45.0); HEMOGLOBIN 10.7 g/dl (12.0-16.0); LYMPHOCYTES # (AUTO) 0.9 X10'3 (1.1-4.8); LYMPHOCYTES % (AUTO) 17.6 % (21-51); MEAN CORPUSCULAR HEMOGLOBIN 24.5 PG (27.0-31.0); MEAN CORPUSCULAR VOLUME 79.1 FL (78-98); MEAN PLATELET VOLUME 7.6 FL (7.4-10.4); MONOCYTES # (AUTO) 0.6 X10'3 (0-0.9); MONOCYTES % (AUTO) 12.5 % (2-12); NEUTROPHILS # (AUTO) 3.3 X10'3 (1.8-7.7); NEUTROPHILS % (AUTO) 64.5 % (42-75); PLATELET COUNT 394 X10'3 (140-440); RED BLOOD COUNT 4.36 X10'6 (4.20-5.60); RED CELL DISTRIBUTION WIDTH 17.7 % (11.5-14.5); WHITE BLOOD COUNT 5.2 X10'3 (4.5-11.0)
[2020-01-17 05:50] LABS: ALBUMIN 2.5 G/DL (3.4-5.0); ANION GAP 5 (8-16); BLOOD UREA NITROGEN 16 MG/DL (7-18); BUN/CREATININE RATIO 14.2 (6.6-38.0); CALCIUM 9.5 MG/DL (8.5-10.1); CHLORIDE 105 MMOL/L (99-107); CREATININE 1.13 MG/DL (0.40-0.90); GLUCOSE 96 MG/DL (70-104); POTASSIUM 4.2 MMOL/L (3.5-5.1); SODIUM 140 MMOL/L (135-145); TOTAL CARBON DIOXIDE 29.7 MMOL/L (24-32); eGFR 48 ML/MIN
--- NOTE | 2020-01-17 06:30 | NUR ---
Problems reprioritized. Patient report given, questions answered & plan of care reviewed with Molly GOMEZ.
[2020-01-17 07:00] VITALS: BP 169/75
--- NOTE | 2020-01-17 07:11 | NUR ---
Patient in room [facility] 349. I have received report from Alejandrina Cameron and had the opportunity to ask questions and assume patient care.
[2020-01-17] MEDS: lactobacillus rhamnosus 10,000 MMU CELLS/CAPSULE PO SCH (07:34)
[2020-01-17] MEDS: amLODIPine 5mg tablet PO SCH (07:34)
[2020-01-17] MEDS: lisinopril 5mg tablet PO SCH (07:34)
[2020-01-17] MEDS: CefTRIAXone/D5W-Rocephin 1gm 50 ML IV SCH (07:34)
[2020-01-17] MEDS: metoprolol tartrate 25mg tablet PO SCH (07:34)
[2020-01-17] MEDS: enoxaparin 40mg/0.4ml syringe SUBCUT SCH (07:35)
[2020-01-17] MEDS: mineral oil/petrolatum, white cream 113gm jar TP SCH (07:35)
[2020-01-17] MEDS: nystatin 15 GM powder TP SCH ×2 (07:36→13:00)
[2020-01-17] MEDS: VANCOmycin 1250MG/NS 250ml Bag 250 ML IV SCH (09:26)
[2020-01-17] MEDS: budesonide 0.5mg/2ml UD nebule IH SCH (09:59)
[2020-01-17 11:00] VITALS: BP 150/81
[2020-01-17] MEDS ORDERED: LACT1CAP26 PO (11:06)
[2020-01-17] MEDS ORDERED: WOOL454C TP (11:06)
[2020-01-17] MEDS ORDERED: LEVO500T2 PO (15:29)
--- NOTE | 2020-01-17 16:15 | NUR ---
Pt DC to home, Pt refused to go to Rehab for further treatment. pt states she has an apartment and will be able to take cafe of herself. Pt is A & o x4, in no apparent distress. pt states understanding of all DC orders and instructions specially wound dressing change. Pt unable to teach back but states she understands. pt given Supplies for wound change dressing for at least 4-5 days. Pt given a new prescription for Eucerin cream which has helped her dry skin tremendously. Pt states she will be able to care for her wounds herself. She states her friend Mariel will help. Pt's belongings were packed and bagged. pt states her shoes are missing but ED doesn't have them. Pt is OK wearing her socks home. Pt could not get a ride home so a taxi was called to take her home. Pt was wheeled out to the front where taxi will take her home.
== END 2020-01-17 16:21 | disposition home health service (06) | DRG 383 ==
LOC: ER 04:57 → ED HOLD 07:25 → SUR 3N 12:23
PROVIDERS: ADMIT Internal Medicine; ATTEND Internal Medicine
DX: L03.116 Cellulitis of left lower limb (principal); J96.11 Chronic respiratory failure with hypoxia; J44.9 Chronic obstructive pulmonary disease, unspecified; F20.9 Schizophrenia, unspecified; L97.919 Non-pressure chronic ulcer of unspecified part of right lower leg with unspecified severity; I10 Essential (primary) hypertension; I87.8 Other specified disorders of veins; Z79.51 Long term (current) use of inhaled steroids; L03.115 Cellulitis of right lower limb; Z79.899 Other long term (current) drug therapy; Z86.14 Personal history of Methicillin resistant Staphylococcus aureus infection; Z86.73 Personal history of transient ischemic attack (TIA), and cerebral infarction without residual deficits; F17.210 Nicotine dependence, cigarettes, uncomplicated; E78.5 Hyperlipidemia, unspecified; D63.8 Anemia in other chronic diseases classified elsewhere; Z88.8 Allergy status to other drugs, medicaments and biological substances
CPT/HCPCS: 36415; 80048; 80053; 80202; 83605; 83880; 84145; 85025; 87040; 87081; 92508; 94640; 94760; 96365; 97110; 97116; 97161; 97530; 99285; G0378; J0696; J1650; J2543; J3370; J7626

== ENCOUNTER 2020-02-17 20:55 | Inpatient (IN) | payer MEDICAID ==
[~2020-02-17] VITALS: Ht 165.1 cm; Wt 80.0 kg
[~2020-02-17 20:55] MED LIST changes: +AMLO5TAB16 PO; -METO50TA16 PO; -NOR5T PO; -SULF1TAB49 PO; +WOOL454C TP
--- NOTE | 2020-02-17 21:09 | NUR ---
PT AND HER BELONGINGS ARE GROSSLY CONTAMINATED. EMS RED BAGGED PTS BELONGINGS AND THEY ARE TOO CONTAMINATED TO ENTER HOSPITAL. 2 RED BAGS AND HER WALKER WERE PLACED IN THE OUTDOOR SHOWER AREA BEHIND THE LOCKED GATE THERE WAS NO OTHER OPTIONS OUTSIDE AVAILABLE TO STORE HER STUFF.
[2020-02-17 21:54] LABS: BASOPHILS % (AUTO) 0.2 % (0-1); EOSINOPHILS # (AUTO) 0.1 X10'3 (0-0.9); EOSINOPHILS % (AUTO) 1.1 % (0-6); HEMATOCRIT 33.7 % (35.0-45.0); HEMOGLOBIN 10.6 g/dl (12.0-16.0); LYMPHOCYTES # (AUTO) 0.9 X10'3 (1.1-4.8); LYMPHOCYTES % (AUTO) 9.6 % (21-51); MEAN CORPUSCULAR HEMOGLOBIN 24.3 PG (27.0-31.0); MEAN CORPUSCULAR HGB CONC 31.5 g/dL (33.0-36.5); MEAN CORPUSCULAR VOLUME 77.1 FL (78-98); MEAN PLATELET VOLUME 7.7 FL (7.4-10.4); MONOCYTES % (AUTO) 10.3 % (2-12); NEUTROPHILS # (AUTO) 7.7 X10'3 (1.8-7.7); NEUTROPHILS % (AUTO) 78.8 % (42-75); PLATELET COUNT 417 X10'3 (140-440); RED BLOOD COUNT 4.37 X10'6 (4.20-5.60); RED CELL DISTRIBUTION WIDTH 18.6 % (11.5-14.5); WHITE BLOOD COUNT 9.8 X10'3 (4.5-11.0)
[2020-02-17 22:05] LABS: PARTIAL THROMBOPLASTIN TIME 30 SECONDS (22-32)
[2020-02-17] MEDS ORDERED: vancomycin/NS 1 GM ADD-VANTAGE 250 ML IV ONE (22:05)
[2020-02-17 22:09] LABS: ALANINE AMINOTRANSFERASE 79 U/L (12-78); ALBUMIN 2.3 G/DL (3.4-5.0); ALBUMIN/GLOBULIN RATIO 0.4 (1.1-1.5); ALKALINE PHOSPHATASE 216 IU/L (46-116); ANION GAP 8 (8-16); ASPARTATE AMINO TRANSFERASE 48 U/L (10-37); BILIRUBIN,TOTAL 0.2 MG/DL (0.1-1.0); BLOOD UREA NITROGEN 25 MG/DL (7-18); BUN/CREATININE RATIO 18.9 (6.6-38.0); CHLORIDE 106 MMOL/L (99-107); CREATININE 1.32 MG/DL (0.40-0.90); GLUCOSE 145 MG/DL (70-104); POTASSIUM 4.8 MMOL/L (3.5-5.1); SODIUM 137 MMOL/L (135-145); TOTAL CARBON DIOXIDE 22.8 MMOL/L (24-32); TOTAL PROTEIN 7.6 G/DL (6.4-8.2); eGFR 40 ML/MIN
[2020-02-17 22:20] LABS: ANISOCYTOSIS 2+; MICROCYTOSIS 1+; PLATELET ESTIMATE NORMAL
--- NOTE | 2020-02-17 22:40 | NUR ---
Doppler pulses present both feet proximal and distal to wounds
[2020-02-17] MEDS ORDERED: normal saline 1000ML IV soln IVB ONE (22:45)
--- NOTE | 2020-02-17 23:11 | NUR ---
SUNNY CALLED BACK AT 23:[address]
[2020-02-17] MEDS ORDERED: NO HOME MEDS (23:26)
--- NOTE | 2020-02-17 23:38 | NUR ---
Vaishali, the PA and myself took betadine water and 4x4s and removed magots from her bilat lower extremities. I also used tweezers to get them out of the wounds mostly to the tops of her feet. There must of been thousands of magots in various stages of growth. Then her linens were removed and fresh ones applied. Her body was washed with moist bath in a bag towlettes. A beasley catheter was placed and a ua to lab and phlebotomy susan blood from her. The room was cleansed of all magots that could be found on the floor. All garbage was red bagged and given to housekeeping. A fly strip was placed in her room from engineering. Her legs and feet were kerlix rolled bilat up to her knees.
[2020-02-17 23:42] LABS: CLARITY,URINE CLOUDY (Clear); COLOR,URINE YELLOW (Yellow); GLUCOSE, URINE NEGATIVE (Neg); KETONES,URINE NEGATIVE (Neg); LEUKOCYTE ESTERASE ,URINE SMALL (Neg); NITRITES, URINE POSITIVE (Neg); OCCULT BLOOD,URINE NEGATIVE (Neg); PH,URINE 5.5 (4.8-8.0); PROTEIN,URINE TRACE mg/dl (Neg); UA COLLECTION TYPE STRAIGHT CATH; UROBILINOGEN,URINE 0.2 E.U/dL (0.2-1.0)
[2020-02-17 23:56] LABS: BACTERIA,URINE 3+ /HPF (Neg); RBC,URINE NONE SEEN /HPF (0-2); WBC,URINE 30-50 /HPF (0-4)
[2020-02-17 23:57] LABS: HYALINE CASTS 0-3 /LPF (NEGATIVE); MUCUS STRANDS NONE SEEN /LPF (Neg); SQUAMOUS EPITHELIAL CELL,UR NONE SEEN /LPF (FEW); WBC CLUMPS,URINE FEW /HPF (NEGATIVE)
[2020-02-18] MEDS ORDERED: methylPREDNISolone sod succ 125mg/2ml vial IV ONE (00:15)
[2020-02-18] MEDS ORDERED: CefTRIAXone 2gm/D5W 50ml 50 ML IV ONE (00:30)
--- NOTE | 2020-02-18 00:36 | NUR ---
WAS NOTIFIED EARLIER IN THE EVENING BY TILE INSPECTOR THAT VASCULAR WOULD NOT BE IN UNTIL THE MORNING. THE PROVIDER IS AWARE.
[2020-02-18] MEDS ORDERED: PETROLATUM,WHITE JELLY..G. 28.4 gm tube TP ONE (00:45)
[2020-02-18] MEDS ORDERED: HYDROcodone/acetaminophen 10/325mg tab PO ONE (01:00)
[2020-02-18] MEDS ORDERED: ondansetron/PF 4mg/2ml inj IV PRN (01:05)
[2020-02-18] MEDS ORDERED: HYDROcodone/acetaminophen 10/325mg tab PO PRN (01:05)
[2020-02-18] MEDS ORDERED: magnesium hydroxide 30ml (MOM) UD suspension PO PRN (01:05)
[2020-02-18] MEDS ORDERED: mag hydrox/Alum hydrox/simeth 30ml oral suspension PO PRN (01:05)
[2020-02-18] MEDS: clindamycin 300mg/D5W 50mL 50 ML IV SCH ×4 (01:46→21:04)
[2020-02-18 02:00] VITALS: BP 136/33
--- NOTE | 2020-02-18 03:00 | NUR ---
Picture of chapin and groin taken and placed in chart. Addendum: 02/18/20 at 0408 by Alix Rueda RN Amended: Links added.
[2020-02-18 06:00] VITALS: BP 124/70
--- NOTE | 2020-02-18 06:38 | NUR ---
Patient in room [facility] 341. I have received report from GABI and had the opportunity to ask questions and assume patient care.
[2020-02-18] MEDS ORDERED: GLYCERIN MC ONE (08:00)
[2020-02-18] MEDS: heparin, porcine 5000 units/ml vial SQ SCH ×2 (08:23→21:05)
[2020-02-18] MEDS: metoprolol tartrate 25mg tablet PO SCH ×2 (08:24→21:04)
[2020-02-18 11:00] VITALS: BP 133/76
--- NOTE | 2020-02-18 12:36 | NUR ---
Pt admitted with ulcerated, erythematous, weeping legs infested with maggots. Wound care has been consulted for further skin assessment. Pt currently on a regular diet documented with 25% PO intake first meal. Pt recently admitted and with average 75-100% PO intake, improvement in PO intake is anticipated given PO hx at previous admits. Pt currently documented as A/O x 3 with incomprehensible speech, difficult to understand per physical assessment. Will continue to follow closely and monitor need for nutrition intervention pending further trends in PO intake and wound care assessment. Recommendations: 1) Continue regular diet 2) Monitor need for ONS/additional protein 3) Bowel care PRN 4) Wt per rx Addendum: 02/18/20 at [address] Amended: Links added.
[2020-02-18] MEDS: nystatin 15 GM powder TP SCH ×2 (14:24→21:03)
[2020-02-18 18:00] VITALS: BP 114/66
--- NOTE | 2020-02-18 18:16 | NUR ---
Problems reprioritized. Patient report given, questions answered & plan of care reviewed with PRUDENCE.
[2020-02-18] MEDS ORDERED: levalbuterol 1.25mg/0.5ml nebule IH PRN (18:20)
--- NOTE | 2020-02-18 18:55 | NUR ---
Patient in room [facility] 341. I have received report from Juan Carlos GOMEZ and had the opportunity to ask questions and assume patient care.
[2020-02-18] MEDS: lactobacillus rhamnosus 10,000 MMU CELLS/CAPSULE PO SCH (21:03)
[2020-02-18] MEDS: vancomycin/NS 1 GM ADD-VANTAGE 250 ML IV SCH (21:04)
[2020-02-19] VITALS: BP 107/53
[2020-02-19] MEDS: clindamycin 300mg/D5W 50mL 50 ML IV SCH ×2 (02:36→08:55)
--- NOTE | 2020-02-19 06:15 | NUR ---
Patient in room [facility] 341. I have received report from JASON Stokes and had the opportunity to ask questions and assume patient care.
--- NOTE | 2020-02-19 06:30 | NUR ---
Problems reprioritized. Patient report given, questions answered & plan of care reviewed with Cynthia RN.
[2020-02-19 07:00] VITALS: BP 131/71
[2020-02-19 07:56] LABS: BASOPHILS % (AUTO) 0.5 % (0-1); EOSINOPHILS # (AUTO) 0.1 X10'3 (0-0.9); EOSINOPHILS % (AUTO) 0.8 % (0-6); HEMATOCRIT 29.4 % (35.0-45.0); HEMOGLOBIN 9.3 g/dl (12.0-16.0); LYMPHOCYTES # (AUTO) 1.1 X10'3 (1.1-4.8); LYMPHOCYTES % (AUTO) 13.5 % (21-51); MEAN CORPUSCULAR HEMOGLOBIN 24.6 PG (27.0-31.0); MEAN CORPUSCULAR HGB CONC 31.6 g/dL (33.0-36.5); MEAN CORPUSCULAR VOLUME 77.9 FL (78-98); MEAN PLATELET VOLUME 7.7 FL (7.4-10.4); MONOCYTES # (AUTO) 0.9 X10'3 (0-0.9); MONOCYTES % (AUTO) 10.5 % (2-12); NEUTROPHILS # (AUTO) 6.1 X10'3 (1.8-7.7); NEUTROPHILS % (AUTO) 74.7 % (42-75); PLATELET COUNT 389 X10'3 (140-440); RED BLOOD COUNT 3.78 X10'6 (4.20-5.60); RED CELL DISTRIBUTION WIDTH 18.7 % (11.5-14.5); WHITE BLOOD COUNT 8.2 X10'3 (4.5-11.0)
[2020-02-19 08:02] LABS: % IRON SATURATION 11 % (11-46); ALANINE AMINOTRANSFERASE 46 U/L (12-78); ALBUMIN 1.9 G/DL (3.4-5.0); ALBUMIN/GLOBULIN RATIO 0.4 (1.1-1.5); ALKALINE PHOSPHATASE 162 IU/L (46-116); ANION GAP 5 (8-16); ASPARTATE AMINO TRANSFERASE 22 U/L (10-37); BILIRUBIN,TOTAL 0.2 MG/DL (0.1-1.0); BLOOD UREA NITROGEN 30 MG/DL (7-18); BUN/CREATININE RATIO 24.4 (6.6-38.0); CALCIUM 8.6 MG/DL (8.5-10.1); CHLORIDE 110 MMOL/L (99-107); CREATININE 1.23 MG/DL (0.40-0.90); GLUCOSE 85 MG/DL (70-104); IRON 24 UG/DL (49-151); POTASSIUM 4.1 MMOL/L (3.5-5.1); SODIUM 142 MMOL/L (135-145); TOTAL CARBON DIOXIDE 27.2 MMOL/L (24-32); TOTAL IRON BINDING CAPACITY 228 UG/DL (259-388); TOTAL PROTEIN 6.9 G/DL (6.4-8.2); eGFR 44 ML/MIN
[2020-02-19] MEDS: metoprolol tartrate 25mg tablet PO SCH (08:55)
[2020-02-19] MEDS: lactobacillus rhamnosus 10,000 MMU CELLS/CAPSULE PO SCH ×2 (08:55→20:58)
[2020-02-19] MEDS: heparin, porcine 5000 units/ml vial SQ SCH ×2 (08:56→20:58)
[2020-02-19] MEDS: nystatin 15 GM powder TP SCH ×3 (08:56→20:58)
[2020-02-19 10:35] LABS: ANISOCYTOSIS 2+; HYPOCHROMASIA 1+; MICROCYTOSIS 1+; PLATELET ESTIMATE NORMAL; POLYCHROMASIA FEW
[2020-02-19 11:00] VITALS: BP 102/76
[2020-02-19] MEDS: levoFLOXACIN 750MG TABLET PO SCH (12:20)
[2020-02-19] MEDS: metroNIDAZOLE-Flagyl 500mg/NS 100 ML IV SCH ×2 (16:16→23:37)
[2020-02-19 18:30] VITALS: BP 142/86
--- NOTE | 2020-02-19 18:30 | NUR ---
Problems reprioritized. Patient report given, questions answered & plan of care reviewed with JASON Warren.
[2020-02-19] MEDS: vancomycin/NS 1 GM ADD-VANTAGE 250 ML IV SCH (20:58)
[2020-02-20] VITALS: BP 132/63
--- NOTE | 2020-02-20 00:30 | NUR ---
LINE INSTALLER TROLLEY CALLED RUN OF SVT IN 150'S AND BACK DOWN TO 110'S.V/S CHECKED AND RECORDED,DENIES CP.
[2020-02-20 00:44] VITALS: BP 142/73
--- NOTE | 2020-02-20 06:42 | NUR ---
Received report from Briana RN
--- NOTE | 2020-02-20 06:43 | NUR ---
Patient in room [facility] 341. I have received report from December, and had the opportunity to ask questions and assume patient care. Addendum: 02/20/20 at 0643 by Shannan VERDIN Amended: Links added.
[2020-02-20 07:07] LABS: BASOPHILS % (AUTO) 0.4 % (0-1); EOSINOPHILS # (AUTO) 0.2 X10'3 (0-0.9); EOSINOPHILS % (AUTO) 2.9 % (0-6); HEMATOCRIT 30.7 % (35.0-45.0); HEMOGLOBIN 9.5 g/dl (12.0-16.0); LYMPHOCYTES # (AUTO) 1.1 X10'3 (1.1-4.8); LYMPHOCYTES % (AUTO) 18.2 % (21-51); MEAN CORPUSCULAR HGB CONC 31.1 g/dL (33.0-36.5); MEAN CORPUSCULAR VOLUME 77.3 FL (78-98); MEAN PLATELET VOLUME 7.4 FL (7.4-10.4); MONOCYTES # (AUTO) 0.7 X10'3 (0-0.9); MONOCYTES % (AUTO) 11.3 % (2-12); NEUTROPHILS % (AUTO) 67.2 % (42-75); PLATELET COUNT 388 X10'3 (140-440); RED BLOOD COUNT 3.97 X10'6 (4.20-5.60); RED CELL DISTRIBUTION WIDTH 18.4 % (11.5-14.5)
[2020-02-20 07:19] LABS: ALANINE AMINOTRANSFERASE 43 U/L (12-78); ALBUMIN/GLOBULIN RATIO 0.4 (1.1-1.5); ALKALINE PHOSPHATASE 158 IU/L (46-116); ANION GAP 5 (8-16); ASPARTATE AMINO TRANSFERASE 23 U/L (10-37); BILIRUBIN,TOTAL 0.2 MG/DL (0.1-1.0); BLOOD UREA NITROGEN 27 MG/DL (7-18); BUN/CREATININE RATIO 21.8 (6.6-38.0); CALCIUM 8.8 MG/DL (8.5-10.1); CHLORIDE 108 MMOL/L (99-107); CREATININE 1.24 MG/DL (0.40-0.90); GLUCOSE 91 MG/DL (70-104); POTASSIUM 4.5 MMOL/L (3.5-5.1); SODIUM 140 MMOL/L (135-145); TOTAL CARBON DIOXIDE 26.9 MMOL/L (24-32); TOTAL PROTEIN 6.9 G/DL (6.4-8.2); eGFR 43 ML/MIN
[2020-02-20] MEDS: lactobacillus rhamnosus 10,000 MMU CELLS/CAPSULE PO SCH ×3 (07:34→21:30)
[2020-02-20] MEDS: heparin, porcine 5000 units/ml vial SQ SCH ×2 (07:35→21:28)
[2020-02-20] MEDS: metroNIDAZOLE-Flagyl 500mg/NS 100 ML IV SCH (07:35)
[2020-02-20] MEDS: nystatin 15 GM powder TP SCH ×3 (07:46→21:29)
[2020-02-20 08:52] VITALS: BP 150/77
[2020-02-20 10:37] LABS: ANISOCYTOSIS 2+; PLATELET ESTIMATE NORMAL
[2020-02-20 10:38] LABS: HYPOCHROMASIA 1+; MICROCYTOSIS 1+; POLYCHROMASIA FEW
[2020-02-20 11:00] VITALS: BP 140/61
[2020-02-20] MEDS: levoFLOXACIN 750MG TABLET PO SCH (11:09)
--- NOTE | 2020-02-20 16:38 | NUR ---
patients wounds were changed on both legs. Did not see any larva. used xeroform and kerlux. to wrap both legs
[2020-02-20] MEDS: metroNIDAZOLE 500mg tablet PO SCH ×2 (16:46→23:43)
--- NOTE | 2020-02-20 16:49 | NUR ---
Patient in room [facility] 341. I have received report from Kassy GOMEZ and had the opportunity to ask questions and assume patient care.
--- NOTE | 2020-02-20 18:40 | NUR ---
Patient in room [facility] 341. I have received report from Janey GOMEZ and had the opportunity to ask questions and assume patient care.
--- NOTE | 2020-02-20 18:47 | NUR ---
Patient appears stable. report given to Jade GOMEZ
[2020-02-20] MEDS ORDERED: VANCOMYCIN LEVEL IV ONE (19:30)
[2020-02-20 20:00] VITALS: BP 141/69
[2020-02-20] MEDS: Dakins solution (1/4 strength) 473ml solution TP SCH ×2 (20:00→21:30)
[2020-02-20] MEDS: vancomycin/NS 1 GM ADD-VANTAGE 250 ML IV SCH ×2 (21:28→21:29)
[2020-02-21 00:14] VITALS: BP 178/90
[2020-02-21 04:58] LABS: BASOPHILS % (AUTO) 0.5 % (0-1); EOSINOPHILS # (AUTO) 0.2 X10'3 (0-0.9); EOSINOPHILS % (AUTO) 2.9 % (0-6); HEMATOCRIT 31.7 % (35.0-45.0); LYMPHOCYTES # (AUTO) 0.9 X10'3 (1.1-4.8); LYMPHOCYTES % (AUTO) 14.7 % (21-51); MEAN CORPUSCULAR HEMOGLOBIN 24.4 PG (27.0-31.0); MEAN CORPUSCULAR HGB CONC 31.4 g/dL (33.0-36.5); MEAN CORPUSCULAR VOLUME 77.8 FL (78-98); MEAN PLATELET VOLUME 7.6 FL (7.4-10.4); MONOCYTES # (AUTO) 0.8 X10'3 (0-0.9); NEUTROPHILS # (AUTO) 4.5 X10'3 (1.8-7.7); NEUTROPHILS % (AUTO) 69.9 % (42-75); PLATELET COUNT 419 X10'3 (140-440); RED BLOOD COUNT 4.08 X10'6 (4.20-5.60); RED CELL DISTRIBUTION WIDTH 18.4 % (11.5-14.5); WHITE BLOOD COUNT 6.5 X10'3 (4.5-11.0)
[2020-02-21 05:19] LABS: ALANINE AMINOTRANSFERASE 33 U/L (12-78); ALBUMIN/GLOBULIN RATIO 0.4 (1.1-1.5); ALKALINE PHOSPHATASE 150 IU/L (46-116); ANION GAP 6 (8-16); ASPARTATE AMINO TRANSFERASE 18 U/L (10-37); BILIRUBIN,TOTAL 0.2 MG/DL (0.1-1.0); BLOOD UREA NITROGEN 23 MG/DL (7-18); CALCIUM 8.7 MG/DL (8.5-10.1); CHLORIDE 105 MMOL/L (99-107); CREATININE 1.44 MG/DL (0.40-0.90); GLUCOSE 101 MG/DL (70-104); POTASSIUM 4.4 MMOL/L (3.5-5.1); SODIUM 140 MMOL/L (135-145); TOTAL CARBON DIOXIDE 28.6 MMOL/L (24-32); eGFR 37 ML/MIN
--- NOTE | 2020-02-21 06:37 | NUR ---
Problems reprioritized. Patient report given, questions answered & plan of care reviewed with Katharine GOMEZ.
--- NOTE | 2020-02-21 06:43 | NUR ---
Patient in room [facility] 341. I have received report from JASON Tom and had the opportunity to ask questions and assume patient care.
[2020-02-21 08:00] VITALS: BP_SYST 151; BP_SYST 165; BP_DIAS 100; BP_DIAS 96
[2020-02-21] MEDS: metroNIDAZOLE 500mg tablet PO SCH (08:35)
[2020-02-21] MEDS: heparin, porcine 5000 units/ml vial SQ SCH ×2 (08:35→19:51)
[2020-02-21] MEDS: nystatin 15 GM powder TP SCH ×3 (08:40→19:51)
[2020-02-21] MEDS: Dakins solution (1/4 strength) 473ml solution TP SCH ×2 (09:14→19:51)
[2020-02-21] MEDS: VANCOmycin 1250MG/NS 250ml Bag 250 ML IV SCH (09:44)
--- NOTE | 2020-02-21 10:33 | NUR ---
Reassessment: Lower extremity wounds have been cleaned prior wound cultures grew out MRSA per MD notes. Pt documented with 75-100% PO intake on regular diet likely meeting nutrient needs with adequate protein to promote wound healing. Still pending wound care notes at this time. Pt documented as A/O x 2 today per physical assessment. [facility] 02/19. Will continue to follow closely and monitor need for nutrition intervention. Recommendations: 1) Continue regular diet 2) Monitor need for ONS/additional protein 3) Bowel care PRN 4) Wt per rx Addendum: 02/21/20 at [address] Amended: Links added.
[2020-02-21] MEDS: acetaminophen 325mg tablet PO PRN (11:40)
--- NOTE | 2020-02-21 15:17 | NUR ---
Patient in room [facility] 341. I have received report from JASON ROA and had the opportunity to ask questions and assume patient care.
--- NOTE | 2020-02-21 16:42 | NUR ---
Wound care came by to assess wounds to lower extremities today. Nursing had just changed the dressings which was ordered by physician to use dakins solution and gauze. Patient had been previously cleansed of maggots to her feet and legs in the ER. No notes from nursing saying more maggots are present. Today the nurse did not see any maggots. Nursing stated they have wound care orders for dakins for the next 3 days. If any further maggots found, a consult for whirlpool therapy can be given to PT to help with cleansing the wounds of the maggots.
--- NOTE | 2020-02-21 18:17 | NUR ---
Problems reprioritized. Patient report given, questions answered & plan of care reviewed with JASON Kelsey.
--- NOTE | 2020-02-21 18:22 | NUR ---
Patient in room [facility] 341. I have received report from JASON Boyer and had the opportunity to ask questions and assume patient care. Addendum: 02/21/20 at 1822 by Zehra Sanz RN Amended: Links added.
[2020-02-21] MEDS: lactobacillus rhamnosus 10,000 MMU CELLS/CAPSULE PO SCH (19:51)
[2020-02-21 20:00] VITALS: BP 144/73
[2020-02-21] MEDS ORDERED: hydrALAZINE 20mg/ml inj. IV PRN (23:50)
[2020-02-22] VITALS: BP 175/86
--- NOTE | 2020-02-22 05:49 | NUR ---
patient had elevated SBP and noted that her BP trending up, called Dr. Mcelroy and ordered hydralzine for patient q6h prn.
--- NOTE | 2020-02-22 06:31 | NUR ---
Problems reprioritized. Patient report given, questions answered & plan of care reviewed with JASON Chan.
[2020-02-22 07:29] LABS: BASOPHILS % (AUTO) 0.7 % (0-1); EOSINOPHILS # (AUTO) 0.2 X10'3 (0-0.9); EOSINOPHILS % (AUTO) 2.9 % (0-6); HEMATOCRIT 33.3 % (35.0-45.0); HEMOGLOBIN 10.4 g/dl (12.0-16.0); LYMPHOCYTES # (AUTO) 1.1 X10'3 (1.1-4.8); LYMPHOCYTES % (AUTO) 16.8 % (21-51); MEAN CORPUSCULAR HEMOGLOBIN 24.4 PG (27.0-31.0); MEAN CORPUSCULAR HGB CONC 31.2 g/dL (33.0-36.5); MEAN CORPUSCULAR VOLUME 78.1 FL (78-98); MEAN PLATELET VOLUME 7.4 FL (7.4-10.4); MONOCYTES # (AUTO) 0.7 X10'3 (0-0.9); MONOCYTES % (AUTO) 10.2 % (2-12); NEUTROPHILS # (AUTO) 4.4 X10'3 (1.8-7.7); NEUTROPHILS % (AUTO) 69.4 % (42-75); PLATELET COUNT 416 X10'3 (140-440); RED BLOOD COUNT 4.26 X10'6 (4.20-5.60); RED CELL DISTRIBUTION WIDTH 18.4 % (11.5-14.5); WHITE BLOOD COUNT 6.4 X10'3 (4.5-11.0)
[2020-02-22 07:35] VITALS: BP 146/77
[2020-02-22] MEDS: lactobacillus rhamnosus 10,000 MMU CELLS/CAPSULE PO SCH ×2 (07:35→21:38)
[2020-02-22 07:36] LABS: ALANINE AMINOTRANSFERASE 31 U/L (12-78); ALBUMIN 2.2 G/DL (3.4-5.0); ALBUMIN/GLOBULIN RATIO 0.4 (1.1-1.5); ALKALINE PHOSPHATASE 146 IU/L (46-116); ANION GAP 6 (8-16); ASPARTATE AMINO TRANSFERASE 14 U/L (10-37); BILIRUBIN,TOTAL 0.2 MG/DL (0.1-1.0); BLOOD UREA NITROGEN 17 MG/DL (7-18); BUN/CREATININE RATIO 14.8 (6.6-38.0); CALCIUM 8.8 MG/DL (8.5-10.1); CHLORIDE 105 MMOL/L (99-107); CREATININE 1.15 MG/DL (0.40-0.90); GLUCOSE 92 MG/DL (70-104); POTASSIUM 4.2 MMOL/L (3.5-5.1); SODIUM 141 MMOL/L (135-145); TOTAL CARBON DIOXIDE 30.2 MMOL/L (24-32); TOTAL PROTEIN 7.1 G/DL (6.4-8.2); eGFR 47 ML/MIN
[2020-02-22] MEDS: heparin, porcine 5000 units/ml vial SQ SCH ×2 (07:36→21:38)
[2020-02-22] MEDS: metroNIDAZOLE 500mg tablet PO SCH ×3 (07:36→23:49)
[2020-02-22] MEDS: lisinopril 5mg tablet PO SCH ×2 (07:36→21:38)
[2020-02-22] MEDS: nystatin 15 GM powder TP SCH ×3 (07:37→21:43)
[2020-02-22] MEDS: VANCOmycin 1250MG/NS 250ml Bag 250 ML IV SCH (07:38)
[2020-02-22] MEDS: Dakins solution (1/4 strength) 473ml solution TP SCH ×2 (07:52→20:00)
[2020-02-22] MEDS ORDERED: levoFLOXACIN 750MG TABLET PO SCH (08:00)
[2020-02-22 11:00] VITALS: BP 152/92
--- NOTE | 2020-02-22 16:58 | NUR ---
PAGER ID: [phone] MESSAGE: Angelica Pretty 341: Can I DC her beasley? she has great output and is able to ambulate to the toilet. myaa [id number]
--- NOTE | 2020-02-22 17:25 | NUR ---
Pages to King not returned. Minh gave order to DC beasley catheter.
--- NOTE | 2020-02-22 17:34 | NUR ---
Eller catheter DC'd per MD orders. tubing intact. No complaints. Patient is aware of importance of voiding and will notify nursing staff if she becomes distended or uncomfortable at any time. Will monitor urine output.
[2020-02-22 18:15] VITALS: BP 123/83
--- NOTE | 2020-02-22 18:28 | NUR ---
Problems reprioritized. Patient report given, questions answered & plan of care reviewed with JASON Magaña.
--- NOTE | 2020-02-22 18:30 | NUR ---
Patient in room [facility] 341. I have received report from JASON Blue and had the opportunity to ask questions and assume patient care.
[2020-02-23] VITALS: BP 150/79
[2020-02-23] MEDS: acetaminophen 325mg tablet PO PRN ×2 (01:52→21:01)
--- NOTE | 2020-02-23 03:40 | NUR ---
FC dc yesterday at 1730. Bladder scan performed, 93 mL. Pt states she is not having any bladder discomfort at this time. Will continue to monitor patient for bladder retention.
--- NOTE | 2020-02-23 06:15 | NUR ---
Problems reprioritized. Patient report given, questions answered & plan of care reviewed with JASON Blue.
[2020-02-23 06:42] LABS: BASOPHILS % (AUTO) 0.6 % (0-1); EOSINOPHILS # (AUTO) 0.2 X10'3 (0-0.9); EOSINOPHILS % (AUTO) 2.6 % (0-6); HEMATOCRIT 32.9 % (35.0-45.0); HEMOGLOBIN 10.4 g/dl (12.0-16.0); LYMPHOCYTES % (AUTO) 15.6 % (21-51); MEAN CORPUSCULAR HEMOGLOBIN 24.7 PG (27.0-31.0); MEAN CORPUSCULAR HGB CONC 31.7 g/dL (33.0-36.5); MEAN CORPUSCULAR VOLUME 78.1 FL (78-98); MEAN PLATELET VOLUME 7.3 FL (7.4-10.4); MONOCYTES # (AUTO) 0.7 X10'3 (0-0.9); MONOCYTES % (AUTO) 10.8 % (2-12); NEUTROPHILS # (AUTO) 4.6 X10'3 (1.8-7.7); NEUTROPHILS % (AUTO) 70.4 % (42-75); PLATELET COUNT 425 X10'3 (140-440); RED BLOOD COUNT 4.21 X10'6 (4.20-5.60); RED CELL DISTRIBUTION WIDTH 18.3 % (11.5-14.5); WHITE BLOOD COUNT 6.6 X10'3 (4.5-11.0)
[2020-02-23 06:58] LABS: ALANINE AMINOTRANSFERASE 25 U/L (12-78); ALBUMIN 2.2 G/DL (3.4-5.0); ALBUMIN/GLOBULIN RATIO 0.4 (1.1-1.5); ALKALINE PHOSPHATASE 135 IU/L (46-116); ANION GAP 7 (8-16); ASPARTATE AMINO TRANSFERASE 16 U/L (10-37); BILIRUBIN,TOTAL 0.2 MG/DL (0.1-1.0); BLOOD UREA NITROGEN 18 MG/DL (7-18); BUN/CREATININE RATIO 14.4 (6.6-38.0); CALCIUM 8.8 MG/DL (8.5-10.1); CHLORIDE 103 MMOL/L (99-107); CREATININE 1.25 MG/DL (0.40-0.90); GLUCOSE 96 MG/DL (70-104); POTASSIUM 4.1 MMOL/L (3.5-5.1); SODIUM 140 MMOL/L (135-145); TOTAL PROTEIN 7.1 G/DL (6.4-8.2); eGFR 43 ML/MIN
[2020-02-23 07:30] VITALS: BP 116/69
[2020-02-23] MEDS: metroNIDAZOLE 500mg tablet PO SCH ×3 (07:58→23:44)
[2020-02-23] MEDS: lisinopril 5mg tablet PO SCH ×2 (07:58→21:01)
[2020-02-23] MEDS: lactobacillus rhamnosus 10,000 MMU CELLS/CAPSULE PO SCH ×2 (07:58→21:01)
[2020-02-23] MEDS: heparin, porcine 5000 units/ml vial SQ SCH ×2 (07:59→21:00)
[2020-02-23] MEDS: Dakins solution (1/4 strength) 473ml solution TP SCH ×2 (08:00→20:00)
[2020-02-23] MEDS: nystatin 15 GM powder TP SCH ×3 (08:08→21:07)
[2020-02-23] MEDS: VANCOmycin 1250MG/NS 250ml Bag 250 ML IV SCH (10:00)
--- NOTE | 2020-02-23 10:10 | NUR ---
Patient lost IV access. Vanco due at 1000. She is refusing a new IV start and IV antibiotics at this moment. She would like to speak with hospitalist first because she does not want another IV if she is possibly discharging.
--- NOTE | 2020-02-23 11:41 | NUR ---
PAGER ID: [phone] MESSAGE: Angelica Pretty 341: WADE.... patients IV infiltrated. She is refusing new IV start until she speaks with you.. IV vanco dose missed this AM. thanks! maya [phone]
[2020-02-23 12:30] VITALS: BP 130/86
--- NOTE | 2020-02-23 18:02 | NUR ---
Problems reprioritized. Patient report given, questions answered & plan of care reviewed with JASON Magaña.
[2020-02-23 18:15] VITALS: BP 149/71
--- NOTE | 2020-02-23 18:27 | NUR ---
Patient in room [facility] 341. I have received report from JASON Blue and had the opportunity to ask questions and assume patient care.
[2020-02-23 20:37] LABS: % IRON SATURATION 18 % (11-46); IRON 43 UG/DL (49-151); TOTAL IRON BINDING CAPACITY 245 UG/DL (259-388)
[2020-02-24 00:23] VITALS: BP 144/79
--- NOTE | 2020-02-24 06:36 | NUR ---
Problems reprioritized. Patient report given, questions answered & plan of care reviewed with JASON Starr and JASON Mo.
--- NOTE | 2020-02-24 06:39 | NUR ---
Patient in room [facility] 341. I have received report from JASON Magaña and had the opportunity to ask questions and assume patient care.
[2020-02-24 07:14] VITALS: BP 149/78
[2020-02-24] MEDS: Dakins solution (1/4 strength) 473ml solution TP SCH (08:00)
[2020-02-24] MEDS: nystatin 15 GM powder TP SCH ×2 (08:00→13:00)
[2020-02-24] MEDS: lisinopril 5mg tablet PO SCH (08:22)
[2020-02-24] MEDS: heparin, porcine 5000 units/ml vial SQ SCH (08:22)
[2020-02-24] MEDS: metroNIDAZOLE 500mg tablet PO SCH (08:22)
[2020-02-24] MEDS: lactobacillus rhamnosus 10,000 MMU CELLS/CAPSULE PO SCH (08:22)
[2020-02-24] MEDS ORDERED: VANCOMYCIN LEVEL IV ONE (09:30)
[2020-02-24] MEDS: VANCOmycin 1250MG/NS 250ml Bag 250 ML IV SCH (10:31)
[2020-02-24] MEDS ORDERED: DOXY-243 PO (11:37)
[2020-02-24] MEDS ORDERED: METR500T PO (11:37)
[2020-02-24] MEDS ORDERED: LISI-642 PO (11:37)
--- NOTE | 2020-02-24 13:38 | NUR ---
Wound care POC. Arrived at bedside for assessment. Primary nurse providing wound care and taking photos for pt to DC today. Assisted with care. Cleansed wounds with wound cleanser, rinsed with saline, applied lotion to intact skin, single layer of xeroform to open areas and wrapped with gauze rolls. Educated pt extensively on infection, dressing care and attending follow up appt with outpatient wound care. Pt has hx of being very noncompliant with meds and management of her care. Hygiene is very poor. Educated her on need for routine bathing and how to care for the wounds on the legs following bathing. Pt verbalized understanding.
[2020-02-26] MEDS ORDERED: VANCOMYCIN LEVEL IV ONE (09:30)
== END 2020-02-24 15:07 | disposition home or self-care (01) | DRG 383 ==
LOC: ER 20:56 → ED HOLD 02-18 01:03 → UNDOADMIN 02-18 01:05 → ED HOLD 02-18 01:05 → SUR 3N 02-18 02:35 → ED HOLD 02-18 02:35
PROVIDERS: ADMIT Internal Medicine; ATTEND Internal Medicine
DX: L03.115 Cellulitis of right lower limb (principal); I27.20 Pulmonary hypertension, unspecified; I49.5 Sick sinus syndrome; F20.9 Schizophrenia, unspecified; B87.9 Myiasis, unspecified; J44.9 Chronic obstructive pulmonary disease, unspecified; L97.519 Non-pressure chronic ulcer of other part of right foot with unspecified severity; L03.116 Cellulitis of left lower limb; D50.9 Iron deficiency anemia, unspecified; E78.5 Hyperlipidemia, unspecified; B96.20 Unspecified Escherichia coli [E. coli] as the cause of diseases classified elsewhere; R00.0 Tachycardia, unspecified; I12.9 Hypertensive chronic kidney disease with stage 1 through stage 4 chronic kidney disease, or unspecified chronic kidney disease; L97.529 Non-pressure chronic ulcer of other part of left foot with unspecified severity; F17.200 Nicotine dependence, unspecified, uncomplicated; N18.3 Chronic kidney disease, stage 3 (moderate); N30.00 Acute cystitis without hematuria; R62.7 Adult failure to thrive; Z86.14 Personal history of Methicillin resistant Staphylococcus aureus infection; Z86.73 Personal history of transient ischemic attack (TIA), and cerebral infarction without residual deficits; Z91.19 Patient's noncompliance with other medical treatment and regimen; Z68.29 Body mass index [BMI] 29.0-29.9, adult
CPT/HCPCS: 36415; 71045; 73590; 73630; 80053; 80202; 81001; 82948; 83540; 83550; 83605; 83880; 84145; 84484; 85025; 85610; 85730; 87040; 87077; 87081; 87088; 87186; 93005; 93925; 93970; 94640; 94760; 96365; 96368; 97116; 97161; 97530; 99285; G0378; J0360; J0696; J1644; J2930; J3370; J3490; J7030; J7614

== ENCOUNTER 2020-03-08 00:13 | Inpatient (IN) | payer MEDICAID ==
[~2020-03-08] VITALS: Ht 160 cm; Wt 102.2 kg
[~2020-03-08 00:13] MED LIST changes: -AMLO5TAB16 PO; -BUDE10.22 INH; +DOXY-243 PO; -LACT1CAP26 PO; +LISI-642 PO; +METR500T PO; -WOOL454C TP
[2020-03-08 01:31] LABS: CLARITY,URINE SLIGHTLY CLOUDY (Clear); COLOR,URINE YELLOW (Yellow); GLUCOSE, URINE NEGATIVE (Neg); KETONES,URINE NEGATIVE (Neg); LEUKOCYTE ESTERASE ,URINE TRACE (Neg); NITRITES, URINE NEGATIVE (Neg); OCCULT BLOOD,URINE MODERATE (Neg); PROTEIN,URINE 30 mg/dl (Neg); UROBILINOGEN,URINE 0.2 E.U/dL (0.2-1.0)
[2020-03-08 01:35] LABS: UA COLLECTION TYPE STRAIGHT CATH
[2020-03-08 01:36] LABS: BACTERIA,URINE 3+ /HPF (Neg); SQUAMOUS EPITHELIAL CELL,UR MODERATE /LPF (FEW)
[2020-03-08 02:00] LABS: BASOPHILS % (AUTO) 0.5 % (0-1); EOSINOPHILS # (AUTO) 0.2 X10'3 (0-0.9); EOSINOPHILS % (AUTO) 2.6 % (0-6); HEMATOCRIT 31.6 % (35.0-45.0); HEMOGLOBIN 9.9 g/dl (12.0-16.0); LYMPHOCYTES # (AUTO) 1.6 X10'3 (1.1-4.8); LYMPHOCYTES % (AUTO) 17.9 % (21-51); MEAN CORPUSCULAR HEMOGLOBIN 24.8 PG (27.0-31.0); MEAN CORPUSCULAR HGB CONC 31.4 g/dL (33.0-36.5); MEAN CORPUSCULAR VOLUME 79.1 FL (78-98); MEAN PLATELET VOLUME 7.9 FL (7.4-10.4); MONOCYTES # (AUTO) 0.9 X10'3 (0-0.9); MONOCYTES % (AUTO) 10.4 % (2-12); NEUTROPHILS # (AUTO) 6.1 X10'3 (1.8-7.7); NEUTROPHILS % (AUTO) 68.6 % (42-75); PLATELET COUNT 372 X10'3 (140-440); RED CELL DISTRIBUTION WIDTH 19.6 % (11.5-14.5); WHITE BLOOD COUNT 8.8 X10'3 (4.5-11.0)
[2020-03-08 02:09] LABS: PARTIAL THROMBOPLASTIN TIME 30 SECONDS (22-32)
[2020-03-08 02:11] LABS: ALANINE AMINOTRANSFERASE 23 U/L (12-78); ALBUMIN 2.6 G/DL (3.4-5.0); ALBUMIN/GLOBULIN RATIO 0.5 (1.1-1.5); ALKALINE PHOSPHATASE 122 IU/L (46-116); ANION GAP 5 (8-16); ASPARTATE AMINO TRANSFERASE 14 U/L (10-37); BILIRUBIN,TOTAL 0.2 MG/DL (0.1-1.0); BLOOD UREA NITROGEN 12 MG/DL (7-18); BUN/CREATININE RATIO 8.2 (6.6-38.0); CALCIUM 8.7 MG/DL (8.5-10.1); CHLORIDE 110 MMOL/L (99-107); CREATININE 1.46 MG/DL (0.40-0.90); GLUCOSE 92 MG/DL (70-104); POTASSIUM 4.2 MMOL/L (3.5-5.1); SODIUM 144 MMOL/L (135-145); TOTAL CARBON DIOXIDE 29.4 MMOL/L (24-32); TOTAL PROTEIN 7.6 G/DL (6.4-8.2); eGFR 36 ML/MIN
[2020-03-08] MEDS ORDERED: VANCOmycin 1250MG/NS 250ml Bag 250 ML IV STA (03:23)
[2020-03-08] MEDS ORDERED: mag hydrox/Alum hydrox/simeth 30ml oral suspension PO PRN (03:50)
[2020-03-08] MEDS ORDERED: ondansetron/PF 4mg/2ml inj IV PRN (03:50)
[2020-03-08] MEDS ORDERED: magnesium hydroxide 30ml (MOM) UD suspension PO PRN (03:50)
[2020-03-08] MEDS ORDERED: acetaminophen 325mg tablet PO PRN (03:50)
--- NOTE | 2020-03-08 04:45 | NUR ---
I have received report from JASON Womack (ED) and had the opportunity to ask questions. Pt will be transferred to 5013.
--- NOTE | 2020-03-08 04:55 | NUR ---
Pt arrived in the unit via gurney. Belongings are with the pt; Pt is asleep. No tele monitor ordered. Wound on BLE has dressings with wound consult order. 2 RN skin assessment, nasal swab for MRSA culture done.
[2020-03-08 05:10] VITALS: BP 157/86
--- NOTE | 2020-03-08 06:21 | NUR ---
Patient in room PCU 3021. I have received report from JASON Hadley and had the opportunity to ask questions and assume patient care.
--- NOTE | 2020-03-08 06:31 | NUR ---
Problems reprioritized. Patient report given, questions answered & plan of care reviewed with JASON Mosley.
[2020-03-08 07:00] VITALS: BP 146/81
[2020-03-08] MEDS ORDERED: cephalexin 250mg capsule PO SCH (08:00)
[2020-03-08] MEDS ORDERED: petrolatum, white 71gm jar TP SCH (08:00)
[2020-03-08] MEDS: heparin, porcine 5000 units/ml vial SQ SCH ×2 (08:31→20:55)
[2020-03-08] MEDS: lisinopril 5mg tablet PO SCH ×2 (08:40→20:54)
[2020-03-08] MEDS ORDERED: cephalexin 500mg capsule PO SCH (08:41)
[2020-03-08] MEDS ORDERED: cephalexin 500mg capsule PO ONE (08:45)
--- NOTE | 2020-03-08 09:18 | NUR ---
Paged King PAGER ID: [phone] MESSAGE: [id number]: Lena Pretty - Will be assessing pts BLE. Also, pts HR in 120s, no tele orders. Melany [phone]
--- NOTE | 2020-03-08 09:56 | NUR ---
New orders for tele monitoring per Rusu.
[2020-03-08 11:00] VITALS: BP 146/73
--- NOTE | 2020-03-08 11:19 | NUR ---
Pt with a low Tunde of 12. Pt admitted with reoccurring myiasis to BLE. SW has been consulted. Wound care has been consulted, pending skin assessment. Per H&P patient's wounds look better than on previous admission. Pt currently on a regular diet, documented with 0-25% PO intake first meal. Pt historically eats 75-100% PO intake during admissions, improvement in PO intake is anticipated given PO hx at previous admits. Pt documented as A/O x 1, protein education not appropriate at this time. Pt just admit today, no documented LBM. Pt with PRN bowel care available. Will continue to follow closely and monitor need for nutrition intervention pending further trends in PO intake and wound care assessment. Recommendations: 1) Continue regular diet 2) Monitor need for ONS/additional protein 3) Bowel care PRN 4) Scaled weights per rx Addendum: 03/08/20 at [address] Amended: Links added.
[2020-03-08] MEDS ORDERED: vancomycin/NS 1 GM ADD-VANTAGE 250 ML IV SCH (14:10)
[2020-03-08 15:00] VITALS: BP 126/72
--- NOTE | 2020-03-08 18:21 | NUR ---
Problems reprioritized. Patient report given, questions answered & plan of care reviewed with JASON Lea.
[2020-03-08 19:00] VITALS: BP 121/72
[2020-03-08] MEDS: nystatin 15 GM powder TP SCH (20:54)
[2020-03-08] MEDS: mineral oil/pet hy-phy 85gm ointment TP SCH (20:55)
[2020-03-08 23:00] VITALS: BP 129/75
[2020-03-09 03:00] VITALS: BP 133/81
[2020-03-09] MEDS: VANCOmycin 1250MG/NS 250ml Bag 250 ML IV SCH (04:44)
--- NOTE | 2020-03-09 06:11 | NUR ---
Patient in room PCU 3021. I have received report from JASON Lea and had the opportunity to ask questions and assume patient care.
[2020-03-09 06:43] LABS: BASOPHILS % (AUTO) 0.4 % (0-1); EOSINOPHILS # (AUTO) 0.1 X10'3 (0-0.9); EOSINOPHILS % (AUTO) 2.1 % (0-6); HEMATOCRIT 29.5 % (35.0-45.0); HEMOGLOBIN 9.3 g/dl (12.0-16.0); LYMPHOCYTES % (AUTO) 15.7 % (21-51); MEAN CORPUSCULAR HEMOGLOBIN 24.9 PG (27.0-31.0); MEAN CORPUSCULAR HGB CONC 31.4 g/dL (33.0-36.5); MEAN CORPUSCULAR VOLUME 79.3 FL (78-98); MEAN PLATELET VOLUME 8.4 FL (7.4-10.4); MONOCYTES # (AUTO) 0.6 X10'3 (0-0.9); MONOCYTES % (AUTO) 10.3 % (2-12); NEUTROPHILS # (AUTO) 4.4 X10'3 (1.8-7.7); NEUTROPHILS % (AUTO) 71.5 % (42-75); PLATELET COUNT 342 X10'3 (140-440); RED BLOOD COUNT 3.72 X10'6 (4.20-5.60); RED CELL DISTRIBUTION WIDTH 19.4 % (11.5-14.5); WHITE BLOOD COUNT 6.1 X10'3 (4.5-11.0)
[2020-03-09 06:50] LABS: ALANINE AMINOTRANSFERASE 14 U/L (12-78); ALBUMIN 2.1 G/DL (3.4-5.0); ALBUMIN/GLOBULIN RATIO 0.4 (1.1-1.5); ALKALINE PHOSPHATASE 106 IU/L (46-116); ANION GAP 6 (8-16); ASPARTATE AMINO TRANSFERASE 11 U/L (10-37); BILIRUBIN,TOTAL 0.2 MG/DL (0.1-1.0); BLOOD UREA NITROGEN 10 MG/DL (7-18); BUN/CREATININE RATIO 7.5 (6.6-38.0); CALCIUM 8.4 MG/DL (8.5-10.1); CHLORIDE 112 MMOL/L (99-107); CREATININE 1.33 MG/DL (0.40-0.90); GLUCOSE 87 MG/DL (70-104); POTASSIUM 4.1 MMOL/L (3.5-5.1); SODIUM 146 MMOL/L (135-145); TOTAL CARBON DIOXIDE 28.4 MMOL/L (24-32); TOTAL PROTEIN 6.8 G/DL (6.4-8.2); eGFR 40 ML/MIN
[2020-03-09 07:00] VITALS: BP 129/73
[2020-03-09] MEDS: heparin, porcine 5000 units/ml vial SQ SCH ×2 (07:37→19:54)
[2020-03-09] MEDS: lisinopril 5mg tablet PO SCH ×2 (07:37→19:53)
[2020-03-09] MEDS: mineral oil/pet hy-phy 85gm ointment TP SCH ×3 (07:38→20:02)
[2020-03-09] MEDS: nystatin 15 GM powder TP SCH ×2 (07:38→19:59)
[2020-03-09 08:22] LABS: ANISOCYTOSIS 2+; MICROCYTOSIS 1+; PLATELET ESTIMATE NORMAL; POLYCHROMASIA FEW
[2020-03-09] MEDS ORDERED: potassium Cl 20 mEq SR tablet PO PRN ×2 (09:40)
[2020-03-09] MEDS ORDERED: magnesium 4gm in 100ml NS 100 ML IV PRN (09:40)
[2020-03-09] MEDS ORDERED: magnesium Cl slow-release 64mg tablet PO PRN (09:40)
[2020-03-09] MEDS ORDERED: potassium CL 10mEq/100ml bag 100 ML IV PRN (09:40)
[2020-03-09] MEDS: K and/or MAG REPLACEMENT MC SCH ×2 (09:43→19:47)
[2020-03-09] MEDS: CefTRIAXone/D5W-Rocephin 1gm 50 ML IV SCH (10:37)
[2020-03-09 11:00] VITALS: BP 130/65
--- NOTE | 2020-03-09 13:03 | NUR ---
discontinue beasley catheter per md orders, pt denies pain or discomfort during procedure, 1500ml of clear urine noted, will continue to monitor.
[2020-03-09 15:00] VITALS: BP 156/102
--- NOTE | 2020-03-09 17:11 | NUR ---
PAGER ID: [phone] MESSAGE: [id number]: Lena OLVERA pts BP at 1500 156/102, reassessed BP was 145/99 -Melany [phone]
[2020-03-09 18:00] VITALS: BP 170/93
--- NOTE | 2020-03-09 18:14 | NUR ---
Patient in room U 3021. I have received report from JASON Hays and had the opportunity to ask questions and assume patient care. Addendum: 03/09/20 at 1815 by Melany Durbin RN Problems reprioritized. Patient report given, questions answered & plan of care reviewed with JASON Rausch.
[2020-03-09] MEDS: lactobacillus rhamnosus 10,000 MMU CELLS/CAPSULE PO SCH (19:53)
[2020-03-09 22:00] VITALS: BP 141/75
--- NOTE | 2020-03-09 23:54 | NUR ---
gave report to JASON Sanders
[2020-03-10] VITALS (7 sets, daily range): BP systolic 141–188; BP diastolic 77–106
--- NOTE | 2020-03-10 00:01 | NUR ---
Patient in room PCU 3021. I have received report from Miracle GOMEZ and had the opportunity to ask questions and assume patient care.
[2020-03-10] MEDS: VANCOmycin 1250MG/NS 250ml Bag 250 ML IV SCH (03:51)
--- NOTE | 2020-03-10 06:22 | NUR ---
Problems reprioritized. Patient report given, questions answered & plan of care reviewed with Melany GOMEZ.
--- NOTE | 2020-03-10 06:23 | NUR ---
Patient in room PCU 3021. I have received report from JASON Sanders and had the opportunity to ask questions and assume patient care.
[2020-03-10 06:39] LABS: BASOPHILS % (AUTO) 0.4 % (0-1); EOSINOPHILS # (AUTO) 0.2 X10'3 (0-0.9); EOSINOPHILS % (AUTO) 2.4 % (0-6); HEMATOCRIT 31.9 % (35.0-45.0); HEMOGLOBIN 9.9 g/dl (12.0-16.0); LYMPHOCYTES # (AUTO) 0.9 X10'3 (1.1-4.8); LYMPHOCYTES % (AUTO) 12.3 % (21-51); MEAN CORPUSCULAR HEMOGLOBIN 24.5 PG (27.0-31.0); MEAN PLATELET VOLUME 8.4 FL (7.4-10.4); MONOCYTES # (AUTO) 0.8 X10'3 (0-0.9); MONOCYTES % (AUTO) 11.2 % (2-12); NEUTROPHILS # (AUTO) 5.1 X10'3 (1.8-7.7); NEUTROPHILS % (AUTO) 73.7 % (42-75); PLATELET COUNT 335 X10'3 (140-440); RED BLOOD COUNT 4.04 X10'6 (4.20-5.60); WHITE BLOOD COUNT 6.9 X10'3 (4.5-11.0)
[2020-03-10 06:59] LABS: ALANINE AMINOTRANSFERASE 16 U/L (12-78); ALBUMIN 2.2 G/DL (3.4-5.0); ALBUMIN/GLOBULIN RATIO 0.5 (1.1-1.5); ALKALINE PHOSPHATASE 108 IU/L (46-116); ANION GAP 6 (8-16); ASPARTATE AMINO TRANSFERASE 13 U/L (10-37); BILIRUBIN,TOTAL 0.2 MG/DL (0.1-1.0); BLOOD UREA NITROGEN 12 MG/DL (7-18); BUN/CREATININE RATIO 10.3 (6.6-38.0); CALCIUM 8.8 MG/DL (8.5-10.1); CHLORIDE 109 MMOL/L (99-107); CREATININE 1.16 MG/DL (0.40-0.90); GLUCOSE 87 MG/DL (70-104); MAGNESIUM 1.9 MG/DL (1.5-2.4); PHOSPHORUS 2.9 MG/DL (2.3-4.5); POTASSIUM 3.7 MMOL/L (3.5-5.1); SODIUM 146 MMOL/L (135-145); TOTAL CARBON DIOXIDE 30.9 MMOL/L (24-32); TOTAL PROTEIN 6.8 G/DL (6.4-8.2); eGFR 47 ML/MIN
--- NOTE | 2020-03-10 07:05 | NUR ---
Ander Neville PAGER ID: [phone] MESSAGE: [id number]: Lena OLVERA pt morning BP 186/103, will reassess after morning dose of 5mg lisinopril -Melany [phone]
[2020-03-10] MEDS: heparin, porcine 5000 units/ml vial SQ SCH ×2 (07:14→19:23)
[2020-03-10] MEDS: lisinopril 5mg tablet PO SCH ×2 (07:14→19:22)
[2020-03-10] MEDS: lactobacillus rhamnosus 10,000 MMU CELLS/CAPSULE PO SCH ×2 (07:14→19:22)
[2020-03-10] MEDS: CefTRIAXone/D5W-Rocephin 1gm 50 ML IV SCH (07:15)
[2020-03-10] MEDS: nystatin 15 GM powder TP SCH ×2 (07:15→19:23)
[2020-03-10] MEDS: K and/or MAG REPLACEMENT MC SCH ×2 (07:15→19:24)
[2020-03-10] MEDS: mineral oil/pet hy-phy 85gm ointment TP SCH ×2 (07:16→19:23)
[2020-03-10] MEDS: metoprolol succinate 25mg (24-HOUR) SR. Tablet PO SCH (11:36)
--- NOTE | 2020-03-10 15:55 | NUR ---
PAGER ID: [phone] MESSAGE: [id number]: Lena Pretty - simon an FYI pt SBP 160s -Melany [phone]
--- NOTE | 2020-03-10 18:06 | NUR ---
Problems reprioritized. Patient report given, questions answered & plan of care reviewed with JASON Mcbride.
--- NOTE | 2020-03-10 18:14 | NUR ---
PAGER ID: [phone] MESSAGE: [id number]: Lena Pretty - 1800 BP was 188/106. Would you like to place any new orders to help maintain it? -Melany/Rae [phone]
--- NOTE | 2020-03-10 18:19 | NUR ---
Patient in room PCU 3021. I have received report from Melany GOMEZ and had the opportunity to ask questions and assume patient care.
[2020-03-10] MEDS ORDERED: hydrALAZINE 20mg/ml inj. IV PRN (18:20)
[2020-03-10] MEDS: amLODIPine 5mg tablet PO SCH (19:21)
--- NOTE | 2020-03-10 20:02 | NUR ---
PAGER ID: [phone] MESSAGE: Rae servin [phone]. Lena Pretty in 3021A is requesting Tylenol for pain. Please call. Thank you
[2020-03-10] MEDS: acetaminophen 325mg tablet PO PRN (20:21)
[2020-03-11 02:00] VITALS: BP 164/87
[2020-03-11 03:27] LABS: BASOPHILS % (AUTO) 0.6 % (0-1); EOSINOPHILS # (AUTO) 0.2 X10'3 (0-0.9); EOSINOPHILS % (AUTO) 3.2 % (0-6); HEMATOCRIT 32.7 % (35.0-45.0); HEMOGLOBIN 10.1 g/dl (12.0-16.0); LYMPHOCYTES # (AUTO) 0.7 X10'3 (1.1-4.8); LYMPHOCYTES % (AUTO) 13.1 % (21-51); MEAN CORPUSCULAR HEMOGLOBIN 24.2 PG (27.0-31.0); MEAN CORPUSCULAR VOLUME 78.2 FL (78-98); MEAN PLATELET VOLUME 7.9 FL (7.4-10.4); MONOCYTES # (AUTO) 0.5 X10'3 (0-0.9); MONOCYTES % (AUTO) 9.7 % (2-12); NEUTROPHILS # (AUTO) 4.1 X10'3 (1.8-7.7); NEUTROPHILS % (AUTO) 73.4 % (42-75); PLATELET COUNT 342 X10'3 (140-440); RED BLOOD COUNT 4.18 X10'6 (4.20-5.60); WHITE BLOOD COUNT 5.6 X10'3 (4.5-11.0)
[2020-03-11] MEDS ORDERED: VANCOMYCIN LEVEL IV ONE (03:30)
[2020-03-11 03:38] LABS: ALANINE AMINOTRANSFERASE 17 U/L (12-78); ALBUMIN 2.3 G/DL (3.4-5.0); ALBUMIN/GLOBULIN RATIO 0.5 (1.1-1.5); ALKALINE PHOSPHATASE 111 IU/L (46-116); ANION GAP 2 (8-16); ASPARTATE AMINO TRANSFERASE 12 U/L (10-37); BILIRUBIN,TOTAL 0.2 MG/DL (0.1-1.0); BLOOD UREA NITROGEN 11 MG/DL (7-18); BUN/CREATININE RATIO 9.7 (6.6-38.0); CALCIUM 8.9 MG/DL (8.5-10.1); CHLORIDE 108 MMOL/L (99-107); CREATININE 1.13 MG/DL (0.40-0.90); GLUCOSE 102 MG/DL (70-104); PHOSPHORUS 3.5 MG/DL (2.3-4.5); POTASSIUM 3.7 MMOL/L (3.5-5.1); SODIUM 145 MMOL/L (135-145); TOTAL CARBON DIOXIDE 34.6 MMOL/L (24-32); TOTAL PROTEIN 7.2 G/DL (6.4-8.2); VANCOMYCIN,TROUGH 14.2 UG/ML (6.0-14.0); eGFR 48 ML/MIN
[2020-03-11] MEDS: VANCOmycin 1250MG/NS 250ml Bag 250 ML IV SCH (03:56)
--- NOTE | 2020-03-11 06:31 | NUR ---
Problems reprioritized. Patient report given, questions answered & plan of care reviewed with Corrie GOMEZ.
--- NOTE | 2020-03-11 06:32 | NUR ---
Patient in room PCU 3021. I have received report from Rae GOMEZ and had the opportunity to ask questions and assume patient care.
[2020-03-11 07:28] VITALS: BP 189/82
[2020-03-11] MEDS: amLODIPine 5mg tablet PO SCH (07:42)
[2020-03-11] MEDS: lactobacillus rhamnosus 10,000 MMU CELLS/CAPSULE PO SCH ×2 (07:42→19:31)
[2020-03-11] MEDS: nystatin 15 GM powder TP SCH ×2 (07:42→19:36)
[2020-03-11] MEDS: lisinopril 5mg tablet PO SCH ×2 (07:42→19:31)
[2020-03-11] MEDS: CefTRIAXone/D5W-Rocephin 1gm 50 ML IV SCH (07:42)
[2020-03-11] MEDS: heparin, porcine 5000 units/ml vial SQ SCH ×2 (07:43→19:31)
[2020-03-11] MEDS: metoprolol succinate 25mg (24-HOUR) SR. Tablet PO SCH (07:43)
[2020-03-11] MEDS: mineral oil/pet hy-phy 85gm ointment TP SCH ×2 (07:51→19:27)
[2020-03-11] MEDS: K and/or MAG REPLACEMENT MC SCH ×2 (07:52→19:59)
--- NOTE | 2020-03-11 08:00 | NUR ---
Rocephin 1 gm from 03/10/2020 0800 dose was found hanging and spiked but not reconstituted.
--- NOTE | 2020-03-11 11:30 | NUR ---
Per Dr. Neville, patient to remain on tele
[2020-03-11 11:47] VITALS: BP 152/96
--- NOTE | 2020-03-11 13:00 | NUR ---
Dr. Neville aware of patients elevated BP, new medications have been added and administered to patient.
--- NOTE | 2020-03-11 14:19 | NUR ---
Reassessment: Pt PO 100% breakfast this AM otherwise ~25% fluctuating meals since admit not meeting needs. Initially AOx1 now AOx3 per EMR hopefully to continue to reflect positively on PO. Per WOC L lower leg full thickness venous ulcer and R lower leg partial thickness venous ulcers present. TIMO recommended ensure enlive BIDBD to help meet protein/kcal needs; notified. LBM 03/10. Will continue to monitor for additional protein needs. Recommendations: 1) Continue regular diet; encourage PO 2) ensure enlive BIDBD 3) Bowel care as needed 4) Scaled weights Addendum: 03/11/20 at [address] Amended: Links added.
[2020-03-11 16:00] VITALS: BP 167/95
[2020-03-11 18:00] VITALS: BP 177/94
--- NOTE | 2020-03-11 18:12 | NUR ---
Problems reprioritized. Patient report given, questions answered & plan of care reviewed with Laure Lee RN.
[2020-03-11] MEDS: acetaminophen 325mg tablet PO PRN (19:57)
[2020-03-11 23:58] VITALS: BP 147/75
[2020-03-12 02:12] VITALS: BP 165/89
[2020-03-12] MEDS: VANCOMYCIN 1,500MG inj. 1,500 MG in normal saline 500ml IV soln 500 ML IV SCH (04:25)
[2020-03-12 06:23] LABS: ALANINE AMINOTRANSFERASE 17 U/L (12-78); ALBUMIN 2.3 G/DL (3.4-5.0); ALBUMIN/GLOBULIN RATIO 0.5 (1.1-1.5); ALKALINE PHOSPHATASE 102 IU/L (46-116); ANION GAP 4 (8-16); ASPARTATE AMINO TRANSFERASE 15 U/L (10-37); BILIRUBIN,TOTAL 0.2 MG/DL (0.1-1.0); BLOOD UREA NITROGEN 10 MG/DL (7-18); BUN/CREATININE RATIO 9.3 (6.6-38.0); CALCIUM 8.7 MG/DL (8.5-10.1); CHLORIDE 108 MMOL/L (99-107); CREATININE 1.07 MG/DL (0.40-0.90); GLUCOSE 91 MG/DL (70-104); MAGNESIUM 1.9 MG/DL (1.5-2.4); PHOSPHORUS 3.4 MG/DL (2.3-4.5); POTASSIUM 3.5 MMOL/L (3.5-5.1); SODIUM 145 MMOL/L (135-145); eGFR 51 ML/MIN
--- NOTE | 2020-03-12 06:23 | NUR ---
Problems reprioritized. Patient report given, questions answered & plan of care reviewed with JASON Lucero.
--- NOTE | 2020-03-12 06:24 | NUR ---
Patient in room PCU 3021. I have received report from Laure GOMEZ and had the opportunity to ask questions and assume patient care.
[2020-03-12 06:25] LABS: BASOPHILS % (AUTO) 0.4 % (0-1); EOSINOPHILS # (AUTO) 0.2 X10'3 (0-0.9); EOSINOPHILS % (AUTO) 3.3 % (0-6); HEMATOCRIT 32.1 % (35.0-45.0); HEMOGLOBIN 9.9 g/dl (12.0-16.0); LYMPHOCYTES # (AUTO) 0.8 X10'3 (1.1-4.8); LYMPHOCYTES % (AUTO) 18.5 % (21-51); MEAN CORPUSCULAR HEMOGLOBIN 24.5 PG (27.0-31.0); MEAN CORPUSCULAR VOLUME 79.2 FL (78-98); MEAN PLATELET VOLUME 8.3 FL (7.4-10.4); MONOCYTES # (AUTO) 0.5 X10'3 (0-0.9); NEUTROPHILS % (AUTO) 65.8 % (42-75); PLATELET COUNT 342 X10'3 (140-440); RED BLOOD COUNT 4.06 X10'6 (4.20-5.60); RED CELL DISTRIBUTION WIDTH 18.4 % (11.5-14.5); WHITE BLOOD COUNT 4.5 X10'3 (4.5-11.0)
[2020-03-12] MEDS: K and/or MAG REPLACEMENT MC SCH ×2 (08:00→20:00)
[2020-03-12] MEDS: lisinopril 20mg tablet PO SCH (08:30)
[2020-03-12] MEDS: amLODIPine 5mg tablet PO SCH (08:30)
[2020-03-12] MEDS: metoprolol succinate 25mg (24-HOUR) SR. Tablet PO SCH (08:30)
[2020-03-12] MEDS: CefTRIAXone/D5W-Rocephin 1gm 50 ML IV SCH (08:30)
[2020-03-12] MEDS: lactobacillus rhamnosus 10,000 MMU CELLS/CAPSULE PO SCH ×2 (08:30→20:44)
[2020-03-12] MEDS: heparin, porcine 5000 units/ml vial SQ SCH ×2 (08:30→20:44)
[2020-03-12] MEDS: nystatin 15 GM powder TP SCH ×2 (08:31→20:44)
[2020-03-12] MEDS: mineral oil/pet hy-phy 85gm ointment TP SCH ×2 (08:33→20:00)
[2020-03-12 11:00] VITALS: BP 132/54
[2020-03-12 15:00] VITALS: BP 172/45
[2020-03-12 18:00] VITALS: BP 187/106
--- NOTE | 2020-03-12 18:05 | NUR ---
Patient in room PCU 3023. I have received report from JASON Yañez and had the opportunity to ask questions and assume patient care.
--- NOTE | 2020-03-12 18:35 | NUR ---
Problems reprioritized. Patient report given, questions answered & plan of care reviewed with Cielo GOMEZ.
[2020-03-12 18:40] VITALS: BP 133/72
[2020-03-12 22:00] VITALS: BP 143/74
[2020-03-13] VITALS (8 sets, daily range): BP systolic 133–189; BP diastolic 69–100
[2020-03-13] MEDS: VANCOMYCIN 1,500MG inj. 1,500 MG in normal saline 500ml IV soln 500 ML IV SCH (03:49)
[2020-03-13 05:50] LABS: BASOPHILS % (AUTO) 0.2 % (0-1); EOSINOPHILS # (AUTO) 0.1 X10'3 (0-0.9); EOSINOPHILS % (AUTO) 2.7 % (0-6); HEMATOCRIT 33.6 % (35.0-45.0); HEMOGLOBIN 10.4 g/dl (12.0-16.0); LYMPHOCYTES # (AUTO) 1.1 X10'3 (1.1-4.8); MEAN CORPUSCULAR HEMOGLOBIN 24.9 PG (27.0-31.0); MEAN CORPUSCULAR VOLUME 80.4 FL (78-98); MONOCYTES # (AUTO) 0.6 X10'3 (0-0.9); MONOCYTES % (AUTO) 12.1 % (2-12); NEUTROPHILS # (AUTO) 3.4 X10'3 (1.8-7.7); PLATELET COUNT 309 X10'3 (140-440); RED BLOOD COUNT 4.18 X10'6 (4.20-5.60); WHITE BLOOD COUNT 5.3 X10'3 (4.5-11.0)
--- NOTE | 2020-03-13 06:00 | NUR ---
RECEIVED REPORT FROM LI GOMEZ.
[2020-03-13 06:12] LABS: ALANINE AMINOTRANSFERASE 14 U/L (12-78); ALBUMIN 2.4 G/DL (3.4-5.0); ALBUMIN/GLOBULIN RATIO 0.4 (1.1-1.5); ALKALINE PHOSPHATASE 107 IU/L (46-116); ANION GAP 7 (8-16); ASPARTATE AMINO TRANSFERASE 20 U/L (10-37); BILIRUBIN,TOTAL 0.2 MG/DL (0.1-1.0); BLOOD UREA NITROGEN 14 MG/DL (7-18); CALCIUM 9.3 MG/DL (8.5-10.1); CHLORIDE 107 MMOL/L (99-107); CREATININE 1.17 MG/DL (0.40-0.90); GLUCOSE 84 MG/DL (70-104); PHOSPHORUS 3.5 MG/DL (2.3-4.5); POTASSIUM 4.2 MMOL/L (3.5-5.1); SODIUM 143 MMOL/L (135-145); TOTAL CARBON DIOXIDE 29.1 MMOL/L (24-32); TOTAL PROTEIN 7.8 G/DL (6.4-8.2); eGFR 46 ML/MIN
--- NOTE | 2020-03-13 06:20 | NUR ---
Problems reprioritized. Patient report given, questions answered & plan of care reviewed with JASON Daly.
[2020-03-13] MEDS: CefTRIAXone/D5W-Rocephin 1gm 50 ML IV SCH (07:45)
[2020-03-13] MEDS: heparin, porcine 5000 units/ml vial SQ SCH ×2 (07:55→20:21)
[2020-03-13] MEDS: lactobacillus rhamnosus 10,000 MMU CELLS/CAPSULE PO SCH ×2 (07:56→20:21)
[2020-03-13 07:58] LABS: ANISOCYTOSIS 2+; PLATELET ESTIMATE NORMAL
[2020-03-13] MEDS: amLODIPine 5mg tablet PO SCH (07:58)
[2020-03-13 07:59] LABS: HYPOCHROMASIA 1+
[2020-03-13 08:00] LABS: POLYCHROMASIA FEW
[2020-03-13] MEDS: metoprolol succinate 25mg (24-HOUR) SR. Tablet PO SCH (08:00)
[2020-03-13] MEDS: K and/or MAG REPLACEMENT MC SCH ×2 (08:00→20:00)
[2020-03-13] MEDS: mineral oil/pet hy-phy 85gm ointment TP SCH ×2 (08:00→20:22)
[2020-03-13] MEDS: lisinopril 20mg tablet PO SCH (08:01)
[2020-03-13] MEDS: nystatin 15 GM powder TP SCH ×2 (08:08→20:21)
--- NOTE | 2020-03-13 10:53 | NUR ---
CALLED PHARMACY THAT AQUAPHOR WAS UNABLE TO BE FOUND, REQUESTED MED TO BE SENT UP.
--- NOTE | 2020-03-13 18:29 | NUR ---
Reported off to Josephine GOMEZ.
--- NOTE | 2020-03-13 18:30 | NUR ---
Patient in room PCU 3021. I have received report from JASON Daly and had the opportunity to ask questions and assume patient care.
[2020-03-14 03:00] VITALS: BP 153/93
[2020-03-14] MEDS: VANCOMYCIN 1,500MG inj. 1,500 MG in normal saline 500ml IV soln 500 ML IV SCH (04:45)
[2020-03-14 06:04] LABS: MAGNESIUM 2.1 MG/DL (1.5-2.4); PHOSPHORUS 3.2 MG/DL (2.3-4.5)
--- NOTE | 2020-03-14 06:33 | NUR ---
Patient in room PCU 3021. I have received report from JASON Burton and had the opportunity to ask questions and assume patient care.
--- NOTE | 2020-03-14 06:43 | NUR ---
Problems reprioritized. Patient report given, questions answered & plan of care reviewed with JASON Mosley.
[2020-03-14 07:00] VITALS: BP 189/92
[2020-03-14] MEDS: heparin, porcine 5000 units/ml vial SQ SCH ×2 (08:50→19:16)
[2020-03-14] MEDS: CefTRIAXone/D5W-Rocephin 1gm 50 ML IV SCH (08:50)
[2020-03-14] MEDS: lactobacillus rhamnosus 10,000 MMU CELLS/CAPSULE PO SCH ×2 (08:50→19:16)
[2020-03-14] MEDS: metoprolol succinate 25mg (24-HOUR) SR. Tablet PO SCH (08:50)
[2020-03-14] MEDS: amLODIPine 5mg tablet PO SCH (08:50)
[2020-03-14] MEDS: lisinopril 20mg tablet PO SCH (08:51)
[2020-03-14] MEDS: K and/or MAG REPLACEMENT MC SCH ×2 (08:52→19:23)
[2020-03-14] MEDS: mineral oil/pet hy-phy 85gm ointment TP SCH ×2 (08:57→19:20)
[2020-03-14] MEDS: nystatin 15 GM powder TP SCH ×2 (08:57→19:16)
[2020-03-14 11:00] VITALS: BP 177/86
[2020-03-14 15:00] VITALS: BP 179/96
--- NOTE | 2020-03-14 16:24 | NUR ---
PO intake has been improving, about 75% average, patient reports she is eating what she can and normally eats about one meal a day when not in the hospital; endorsed that she is feeling satisfied from her meals. Recommendations: 1) Continue regular diet; encourage PO 2) ensure enlive BIDBD 3) Bowel care as needed 4) Scaled weights Addendum: 03/14/20 at [address] Amended: Links added.
--- NOTE | 2020-03-14 16:36 | NUR ---
PAGER ID: [phone] MESSAGE: 3021: FYI - Pt SBP has been in 170s the last two readings -Melany [phone]
[2020-03-14 18:00] VITALS: BP 160/80
--- NOTE | 2020-03-14 18:06 | NUR ---
Problems reprioritized. Patient report given, questions answered & plan of care reviewed with JASON Hadley.
[2020-03-14 22:00] VITALS: BP 145/60
[2020-03-15] MEDS ORDERED: VANCOMYCIN LEVEL IV ONE (03:30)
--- NOTE | 2020-03-15 03:53 | NUR ---
Notified Geovanny pharmacist of pt's Vanco level : 20.2. Pharmacist stated that it is ok to administer the Vancomycin scheduled for 4 AM.
--- NOTE | 2020-03-15 04:00 | NUR ---
Notified Dr. Palma. PAGER ID: [phone] MESSAGE: This is JASON Hadley of [facility]. 3021 Maria De Jesus, Lena 64 F with Dx : Sepsis, Bacteremia, UTI has critical lab value Vanco = 20.2. Pharmacist, Geovanny, notified, & ordered to continue admin Vanco @ 5910.
[2020-03-15] MEDS: VANCOMYCIN 1,500MG inj. 1,500 MG in normal saline 500ml IV soln 500 ML IV SCH (04:20)
[2020-03-15 06:00] VITALS: BP 151/79
--- NOTE | 2020-03-15 06:18 | NUR ---
Problems reprioritized. Patient report given, questions answered & plan of care reviewed with Yolanda Arriola RN.
--- NOTE | 2020-03-15 07:19 | NUR ---
I was informed by telecommunication tower technician that pt HR was in the 40's per tele. I checked on the pt, she in NAD, VSS stable- 150/56, 95% 1L, HR 88, RR 22. Pt has hx of this , aware, documented that pt refused pacemaker. Will continue to monitor.
[2020-03-15] MEDS: K and/or MAG REPLACEMENT MC SCH ×2 (08:00→19:47)
[2020-03-15] MEDS: lactobacillus rhamnosus 10,000 MMU CELLS/CAPSULE PO SCH ×2 (08:10→19:39)
[2020-03-15] MEDS: CefTRIAXone/D5W-Rocephin 1gm 50 ML IV SCH (08:10)
[2020-03-15] MEDS: amLODIPine 5mg tablet PO SCH (08:11)
[2020-03-15] MEDS: lisinopril 20mg tablet PO SCH (08:11)
[2020-03-15] MEDS: heparin, porcine 5000 units/ml vial SQ SCH ×2 (08:12→19:39)
[2020-03-15] MEDS: nystatin 15 GM powder TP SCH ×2 (08:12→19:39)
[2020-03-15] MEDS: mineral oil/pet hy-phy 85gm ointment TP SCH ×2 (08:12→19:40)
[2020-03-15] MEDS: metoprolol succinate 25mg (24-HOUR) SR. Tablet PO SCH (08:20)
--- NOTE | 2020-03-15 10:14 | NUR ---
F/u (03/15): RN reports pt trouble chewing some harder foods; soft to chew foods added to ensure optimal PO. TIMO d/w RN regarding ensure enlive BIDBD if MD agreeable since still pending verification. PO intake has been improving, about 75% average, patient reports she is eating what she can and normally eats about one meal a day when not in the hospital; endorsed that she is feeling satisfied from her meals. Recommendations: 1) Continue regular diet; encourage PO; soft to chew foods 2) ensure enlive BIDBD 3) Bowel care as needed 4) Scaled weights Addendum: 03/15/20 at [address] Amended: Links added.
[2020-03-15 11:00] VITALS: BP 145/68
[2020-03-15 15:00] VITALS: BP 123/45
[2020-03-15] MEDS: lactose-reduced food (Ensure Enlive) - 237ml bottle PO SCH (17:30)
[2020-03-15 18:00] VITALS: BP 127/55
--- NOTE | 2020-03-15 18:21 | NUR ---
bedside report given to Leonie GOMEZ
[2020-03-16 02:00] VITALS: BP 131/61
--- NOTE | 2020-03-16 02:15 | NUR ---
Dr. Temple approved to transfer pt to surgical unit without the tele monitor.
--- NOTE | 2020-03-16 02:50 | NUR ---
Problems reprioritized. Patient report given, questions answered & plan of care reviewed with JASON Kelsey.
--- NOTE | 2020-03-16 02:52 | NUR ---
Patient in room PCU 3021. I have received report from JASON Alcantar and had the opportunity to ask questions and assume patient care.
--- NOTE | 2020-03-16 03:00 | NUR ---
Pt transferred to Surgical unit via w/c. Pt is stable, no signs of distress. All belongings are with the pt. Tele monitor discontinued. JASON Kelsey assumed the care.
--- NOTE | 2020-03-16 03:10 | NUR ---
patient arrived a/o x3 with belongings and no acute distress noted
[2020-03-16 05:21] LABS: BASOPHILS % (AUTO) 0.4 % (0-1); EOSINOPHILS # (AUTO) 0.1 X10'3 (0-0.9); HEMOGLOBIN 10.9 g/dl (12.0-16.0); LYMPHOCYTES # (AUTO) 1.2 X10'3 (1.1-4.8); LYMPHOCYTES % (AUTO) 16.7 % (21-51); MEAN CORPUSCULAR HEMOGLOBIN 24.9 PG (27.0-31.0); MEAN CORPUSCULAR HGB CONC 31.1 g/dL (33.0-36.5); MEAN CORPUSCULAR VOLUME 80.1 FL (78-98); MONOCYTES # (AUTO) 0.9 X10'3 (0-0.9); MONOCYTES % (AUTO) 12.4 % (2-12); NEUTROPHILS # (AUTO) 4.7 X10'3 (1.8-7.7); NEUTROPHILS % (AUTO) 68.5 % (42-75); PLATELET COUNT 297 X10'3 (140-440); RED BLOOD COUNT 4.37 X10'6 (4.20-5.60); RED CELL DISTRIBUTION WIDTH 19.3 % (11.5-14.5); WHITE BLOOD COUNT 6.9 X10'3 (4.5-11.0)
[2020-03-16 05:30] LABS: ALANINE AMINOTRANSFERASE 18 U/L (12-78); ALBUMIN 2.6 G/DL (3.4-5.0); ALBUMIN/GLOBULIN RATIO 0.6 (1.1-1.5); ALKALINE PHOSPHATASE 101 IU/L (46-116); ANION GAP 4 (8-16); ASPARTATE AMINO TRANSFERASE 16 U/L (10-37); BILIRUBIN,TOTAL 0.2 MG/DL (0.1-1.0); BLOOD UREA NITROGEN 22 MG/DL (7-18); BUN/CREATININE RATIO 16.1 (6.6-38.0); CALCIUM 9.1 MG/DL (8.5-10.1); CHLORIDE 107 MMOL/L (99-107); CREATININE 1.37 MG/DL (0.40-0.90); GLUCOSE 92 MG/DL (70-104); MAGNESIUM 2.2 MG/DL (1.5-2.4); PHOSPHORUS 3.7 MG/DL (2.3-4.5); POTASSIUM 3.8 MMOL/L (3.5-5.1); SODIUM 144 MMOL/L (135-145); TOTAL CARBON DIOXIDE 32.6 MMOL/L (24-32); TOTAL PROTEIN 7.3 G/DL (6.4-8.2); eGFR 39 ML/MIN
--- NOTE | 2020-03-16 06:33 | NUR ---
Problems reprioritized. Patient report given, questions answered & plan of care reviewed with JASON Torrez.
[2020-03-16 07:00] VITALS: BP 158/76
[2020-03-16] MEDS: lactose-reduced food (Ensure Enlive) - 237ml bottle PO SCH (07:30)
[2020-03-16] MEDS: K and/or MAG REPLACEMENT MC SCH (08:00)
[2020-03-16] MEDS: amLODIPine 5mg tablet PO SCH (09:22)
[2020-03-16] MEDS: lactobacillus rhamnosus 10,000 MMU CELLS/CAPSULE PO SCH (09:22)
[2020-03-16] MEDS: lisinopril 20mg tablet PO SCH (09:23)
[2020-03-16] MEDS: heparin, porcine 5000 units/ml vial SQ SCH (09:24)
[2020-03-16] MEDS: mineral oil/pet hy-phy 85gm ointment TP SCH (09:26)
[2020-03-16] MEDS: nystatin 15 GM powder TP SCH (09:26)
[2020-03-16 11:00] VITALS: BP 132/86
[2020-03-16] MEDS ORDERED: NOR5T PO (11:10)
[2020-03-16] MEDS ORDERED: LACT-237 PO (11:10)
[2020-03-16] MEDS ORDERED: LACT1CAP26 PO (11:10)
[2020-03-16] MEDS ORDERED: SULF1TAB49 PO (11:15)
--- NOTE | 2020-03-16 13:30 | NUR ---
PROCESSING TECHNOLOGIST IN THE PROCESS OF ARRANGING PARTNERSHIP RIDE FOR PT.
[2020-03-16] MEDS ORDERED: LISI-600 PO (14:10)
--- NOTE | 2020-03-16 14:16 | NUR ---
PT. USING RESTROOM INDEPENDENTLY Addendum: 03/16/20 at 1416 by Mary Hardy RN Amended: Links added.
--- NOTE | 2020-03-16 14:23 | NUR ---
SA02 96% ON RA WALKING.
--- NOTE | 2020-03-16 14:24 | NUR ---
P/U TIME FOR PARTNERSHIP ESTIMATED TO BE AT 1500
--- NOTE | 2020-03-16 15:30 | NUR ---
Pt. picked up by partnership vehicle. All belongings left with pt. IV removed, pressure bandage applied, no s/sx bleeding noted. Pt aware to sweet pickled fruit maker medications at [facility] on [address]. Reviewed discharge paperwork with pt. Reviewed medications and pt. seemed to understand, good verbal feedback. Pt. left with her red four wheel walker. She is aware to see her PCP at [facility]. Clean clothes provided to pt, as she said her were"cutoff" of her when she arrived. Explained wound care for legs several times to pt. and provided ample supplies. Pt. left with a supply of lotion and Nystatin that was used here. She had no questions about her plan of care. She is aware that she will be getting Home Health nursing.
== END 2020-03-16 15:30 | disposition home or self-care (01) | DRG 720 ==
LOC: ER 00:14 → ED HOLD 03:49 → UNDOADMIN 03:49 → ED HOLD 04:12 → UNDOADMIN 04:15 → ED HOLD 05:10 → PCU 3S 05:10 → SUR 3N 03-16 03:00
PROVIDERS: ADMIT Internal Medicine; ATTEND Internal Medicine
DX: A41.9 Sepsis, unspecified organism (principal); I49.5 Sick sinus syndrome; L97.909 Non-pressure chronic ulcer of unspecified part of unspecified lower leg with unspecified severity; F20.9 Schizophrenia, unspecified; B87.9 Myiasis, unspecified; D64.9 Anemia, unspecified; E86.0 Dehydration; N39.0 Urinary tract infection, site not specified; I12.9 Hypertensive chronic kidney disease with stage 1 through stage 4 chronic kidney disease, or unspecified chronic kidney disease; N18.9 Chronic kidney disease, unspecified; L03.90 Cellulitis, unspecified; I16.0 Hypertensive urgency; F17.210 Nicotine dependence, cigarettes, uncomplicated; Z91.19 Patient's noncompliance with other medical treatment and regimen; Z86.73 Personal history of transient ischemic attack (TIA), and cerebral infarction without residual deficits
CPT/HCPCS: 36415; 71045; 80053; 80202; 81001; 83605; 83735; 84100; 84145; 85025; 85610; 85730; 87040; 87077; 87081; 87088; 87186; 97110; 97161; 97530; 99285; G0378; J0360; J0696; J1644; J3370; J7040

== ENCOUNTER 2020-03-24 23:25 | Inpatient (IN) | payer MEDICAID ==
[~2020-03-24] VITALS: Ht 165.1 cm; Wt 99.0 kg
[~2020-03-24 23:25] MED LIST changes: -DOXY-243 PO; +LACT-237 PO; +LACT1CAP26 PO; +LISI-600 PO; -LISI-642 PO; -METR500T PO; +NOR5T PO; +SULF1TAB49 PO
[2020-03-24] MEDS ORDERED: normal saline 1000ML IV soln IVB ONE (23:45)
[2020-03-25] VITALS (22 sets, daily range): BP systolic 84–124; BP diastolic 42–65
[2020-03-25] MEDS ORDERED: morphine 4 MG/ML inj SYRINge IV ONE (00:05)
[2020-03-25 00:12] LABS: BASOPHILS % (AUTO) 0.1 % (0-1); EOSINOPHILS # (AUTO) 0.1 X10'3 (0-0.9); EOSINOPHILS % (AUTO) 0.4 % (0-6); HEMATOCRIT 37.3 % (35.0-45.0); HEMOGLOBIN 11.6 g/dl (12.0-16.0); LYMPHOCYTES # (AUTO) 1.1 X10'3 (1.1-4.8); LYMPHOCYTES % (AUTO) 8.4 % (21-51); MEAN CORPUSCULAR HEMOGLOBIN 25.4 PG (27.0-31.0); MEAN CORPUSCULAR HGB CONC 31.1 g/dL (33.0-36.5); MEAN CORPUSCULAR VOLUME 81.8 FL (78-98); MEAN PLATELET VOLUME 9.2 FL (7.4-10.4); MONOCYTES # (AUTO) 1.1 X10'3 (0-0.9); MONOCYTES % (AUTO) 8.3 % (2-12); NEUTROPHILS # (AUTO) 11.3 X10'3 (1.8-7.7); NEUTROPHILS % (AUTO) 82.8 % (42-75); PLATELET COUNT 351 X10'3 (140-440); RED BLOOD COUNT 4.56 X10'6 (4.20-5.60); RED CELL DISTRIBUTION WIDTH 20.7 % (11.5-14.5); WHITE BLOOD COUNT 13.6 X10'3 (4.5-11.0)
[2020-03-25 00:38] LABS: ALANINE AMINOTRANSFERASE 20 U/L (12-78); ALBUMIN 3.4 G/DL (3.4-5.0); ALBUMIN/GLOBULIN RATIO 0.6 (1.1-1.5); ALKALINE PHOSPHATASE 122 IU/L (46-116); ANION GAP 29 (8-16); ASPARTATE AMINO TRANSFERASE 15 U/L (10-37); BILIRUBIN,TOTAL 0.5 MG/DL (0.1-1.0); BLOOD UREA NITROGEN 97 MG/DL (7-18); CALCIUM 8.9 MG/DL (8.5-10.1); CHLORIDE 99 MMOL/L (99-107); GLUCOSE 119 MG/DL (70-104); LIPASE 143 U/L (73-393); SODIUM 144 MMOL/L (135-145); TOTAL CARBON DIOXIDE 16.1 MMOL/L (24-32); TOTAL PROTEIN 9.1 G/DL (6.4-8.2)
[2020-03-25 00:39] LABS: PARTIAL THROMBOPLASTIN TIME 30 SECONDS (22-32)
[2020-03-25 00:43] LABS: BUN/CREATININE RATIO 4.5 (6.6-38.0); CREATININE 21.52 MG/DL (0.40-0.90); POTASSIUM 6.7 MMOL/L (3.5-5.1); eGFR 2 ML/MIN
[2020-03-25 00:47] LABS: ANISOCYTOSIS 3+; ELLIPTOCYTES FEW; LARGE PLATELETS FEW; PLATELET ESTIMATE NORMAL; POLYCHROMASIA FEW
--- NOTE | 2020-03-25 00:57 | NUR ---
PER DR. GALLARDO, RECTAL TUBE WAS PLACED DUE TO ONGOING WATERY DIARRHEA X 3DAYS. PATIET UNABLE TO TAKE CARE OF HERSELF AT HOME. PATIENT SUFFERS FROM SEVERE ERYTHEMA, IRRITATION AND SOME SKIN BREAKDOWN IN HER ENTIRE PERINEAL AREA.
[2020-03-25] MEDS ORDERED: insulin regular, human U-100 3ml vial - multi-dose IV ONE (01:30)
[2020-03-25] MEDS ORDERED: calcium chloride 100 MG/1 ML inj IV ONE (01:30)
[2020-03-25] MEDS ORDERED: sodium bicarbonate (8.4%) inj. 1 MEQ/ML ML IV ONE (01:30)
[2020-03-25] MEDS ORDERED: dextrose 50%-water 50ml dispensing syringe IV ONE (01:30)
[2020-03-25] MEDS: furosemide 40mg/4ml inj IV ONE ×2 (02:03→02:24)
[2020-03-25] MEDS ORDERED: LIDOcaine 2% 10ml TOPICAL JELLY (Urojet) TP ONE (02:35)
[2020-03-25] MEDS ORDERED: levalbuterol 0.63mg/3ml nebule IH PRN (02:35)
[2020-03-25] MEDS: sodium bicarbonate (8.4%) inj. 150 MEQ in dextrose 5%-water 1,000 ML IV SCH ×3 (02:35→20:17)
[2020-03-25] MEDS ORDERED: ondansetron/PF 4mg/2ml inj IV PRN (02:35)
[2020-03-25] MEDS ORDERED: acetaminophen 325mg tablet PO PRN ×2 (02:35)
[2020-03-25] MEDS ORDERED: ipratropium 0.5 MG/2.5ML nebule IH PRN (02:35)
[2020-03-25] MEDS ORDERED: diphenhydrAMINE 50 mg/ml inj IV PRN (02:35)
[2020-03-25] MEDS ORDERED: acetaminophen 650mg rectal suppository RC PRN (02:35)
[2020-03-25 07:14] LABS: ALANINE AMINOTRANSFERASE 15 U/L (12-78); ALBUMIN 2.9 G/DL (3.4-5.0); ALBUMIN/GLOBULIN RATIO 0.6 (1.1-1.5); ALKALINE PHOSPHATASE 107 IU/L (46-116); ANION GAP 25 (8-16); ASPARTATE AMINO TRANSFERASE 10 U/L (10-37); BILIRUBIN,TOTAL 0.4 MG/DL (0.1-1.0); BLOOD UREA NITROGEN 97 MG/DL (7-18); CALCIUM 8.7 MG/DL (8.5-10.1); CHLORIDE 104 MMOL/L (99-107); CREATINE KINASE 48 U/L (26-192); GLUCOSE 87 MG/DL (70-104); MAGNESIUM 3.1 MG/DL (1.5-2.4); SODIUM 147 MMOL/L (135-145); TOTAL CARBON DIOXIDE 17.9 MMOL/L (24-32); TOTAL PROTEIN 7.5 G/DL (6.4-8.2)
[2020-03-25 07:30] LABS: BUN/CREATININE RATIO 4.8 (6.6-38.0); CREATININE 20.38 MG/DL (0.40-0.90); PHOSPHORUS 15.2 MG/DL (2.3-4.5); eGFR 2 ML/MIN
[2020-03-25] MEDS: lactose-reduced food (Ensure Enlive) - 237ml bottle PO SCH ×2 (07:30→18:30)
[2020-03-25] MEDS: lactobacillus rhamnosus 10,000 MMU CELLS/CAPSULE PO SCH ×2 (08:00→20:00)
[2020-03-25] MEDS: pantoprazole 40 MG vial IV SCH (08:01)
[2020-03-25] MEDS: nystatin 15 GM powder TP SCH ×3 (08:04→21:09)
[2020-03-25 10:32] LABS: ALBUMIN 2.6 G/DL (3.4-5.0); ANION GAP 21 (8-16); BLOOD UREA NITROGEN 94 MG/DL (7-18); BUN/CREATININE RATIO 4.7 (6.6-38.0); CALCIUM 7.9 MG/DL (8.5-10.1); CHLORIDE 103 MMOL/L (99-107); GLUCOSE 80 MG/DL (70-104); SODIUM 148 MMOL/L (135-145); TOTAL CARBON DIOXIDE 24.5 MMOL/L (24-32); eGFR 2 ML/MIN
[2020-03-25 11:53] LABS: PHOSPHORUS 14.3 MG/DL (2.3-4.5)
[2020-03-25] MEDS ORDERED: calcium chloride inj. 1,000 MG in normal saline 100ml IV soln 100 ML IV PRN (12:00)
[2020-03-25] MEDS ORDERED: sodium phosphate inj. 30 MMOL in normal saline 250ml IV soln 250 ML IV PRN (12:00)
[2020-03-25] MEDS ORDERED: heparin 10,000 units/1 ML INJ IV PRN (12:20)
[2020-03-25] MEDS ORDERED: heparin 10,000 units/1 ML INJ IV ONE (14:20)
[2020-03-25] MEDS: heparin 25,000 UNIT/250ml bag 250 ML IV SCH (14:23)
[2020-03-25] MEDS: piperacillin/tazo 3.375gm/50ml 50 ML IV SCH (16:01)
[2020-03-25 16:48] LABS: BASOPHILS % (AUTO) 0.3 % (0-1); EOSINOPHILS # (AUTO) 0.3 X10'3 (0-0.9); EOSINOPHILS % (AUTO) 3.3 % (0-6); HEMATOCRIT 30.7 % (35.0-45.0); HEMOGLOBIN 9.8 g/dl (12.0-16.0); LYMPHOCYTES # (AUTO) 1.2 X10'3 (1.1-4.8); LYMPHOCYTES % (AUTO) 14.1 % (21-51); MEAN CORPUSCULAR HEMOGLOBIN 25.5 PG (27.0-31.0); MEAN CORPUSCULAR HGB CONC 31.8 g/dL (33.0-36.5); MEAN PLATELET VOLUME 8.8 FL (7.4-10.4); MONOCYTES # (AUTO) 0.8 X10'3 (0-0.9); MONOCYTES % (AUTO) 8.8 % (2-12); NEUTROPHILS # (AUTO) 6.4 X10'3 (1.8-7.7); NEUTROPHILS % (AUTO) 73.5 % (42-75); PLATELET COUNT 280 X10'3 (140-440); RED BLOOD COUNT 3.85 X10'6 (4.20-5.60); RED CELL DISTRIBUTION WIDTH 20.9 % (11.5-14.5); WHITE BLOOD COUNT 8.7 X10'3 (4.5-11.0)
[2020-03-25 16:58] LABS: URINE HCG NEGATIVE (NEG)
[2020-03-25 16:58] LABS: ALBUMIN 2.5 G/DL (3.4-5.0); ANION GAP 16 (8-16); BLOOD UREA NITROGEN 75 MG/DL (7-18); BUN/CREATININE RATIO 4.9 (6.6-38.0); CALCIUM 7.6 MG/DL (8.5-10.1); CHLORIDE 103 MMOL/L (99-107); CREATININE 15.18 MG/DL (0.40-0.90); GLUCOSE 103 MG/DL (70-104); MAGNESIUM 2.3 MG/DL (1.5-2.4); POTASSIUM 4.2 MMOL/L (3.5-5.1); SODIUM 148 MMOL/L (135-145); TOTAL CARBON DIOXIDE 28.9 MMOL/L (24-32); eGFR 2 ML/MIN
[2020-03-25 16:59] LABS: CLARITY,URINE CLOUDY (Clear); COLOR,URINE YELLOW (Yellow); GLUCOSE, URINE NEGATIVE (Neg); KETONES,URINE NEGATIVE (Neg); LEUKOCYTE ESTERASE ,URINE MODERATE (Neg); NITRITES, URINE NEGATIVE (Neg); OCCULT BLOOD,URINE MODERATE (Neg); PROTEIN,URINE 100 mg/dl (Neg); UROBILINOGEN,URINE 0.2 E.U/dL (0.2-1.0)
[2020-03-25 16:59] LABS: PHOSPHORUS 9.4 MG/DL (2.3-4.5)
[2020-03-25 17:01] LABS: UA COLLECTION TYPE FOLEY CATH
[2020-03-25 17:10] LABS: SQUAMOUS EPITHELIAL CELL,UR MANY /LPF (FEW); WBC,URINE TNTC /HPF (0-4)
[2020-03-25 17:11] LABS: TRANSITIONAL EPI CELLS,URINE FEW /HPF
[2020-03-25 17:12] LABS: YEAST FEW /HPF (NEGATIVE)
[2020-03-25 17:13] LABS: RBC,URINE 0-2 /HPF (0-2)
[2020-03-25 17:15] LABS: BACTERIA,URINE 1+ /HPF (Neg); WBC CLUMPS,URINE FEW /HPF (NEGATIVE)
[2020-03-25 17:22] LABS: TOTAL PROTEIN,URINE RANDOM 264.2 MG/DL
[2020-03-25 17:32] LABS: UA EOSINOPHILS NO EOS /HPF
[2020-03-25 17:40] LABS: ANISOCYTOSIS 3+; ELLIPTOCYTES FEW; HYPOCHROMASIA 1+; PLATELET ESTIMATE NORMAL; POLYCHROMASIA FEW; STOMATOCYTES FEW
[2020-03-25 18:03] LABS: BASOPHILS % (AUTO) 0.5 % (0-1); EOSINOPHILS # (AUTO) 0.2 X10'3 (0-0.9); HEMATOCRIT 31.3 % (35.0-45.0); LYMPHOCYTES # (AUTO) 1.2 X10'3 (1.1-4.8); LYMPHOCYTES % (AUTO) 14.8 % (21-51); MEAN CORPUSCULAR HEMOGLOBIN 25.4 PG (27.0-31.0); MEAN CORPUSCULAR VOLUME 79.6 FL (78-98); MEAN PLATELET VOLUME 8.8 FL (7.4-10.4); MONOCYTES # (AUTO) 0.7 X10'3 (0-0.9); MONOCYTES % (AUTO) 7.9 % (2-12); NEUTROPHILS # (AUTO) 6.1 X10'3 (1.8-7.7); NEUTROPHILS % (AUTO) 73.8 % (42-75); PLATELET COUNT 276 X10'3 (140-440); RED BLOOD COUNT 3.94 X10'6 (4.20-5.60); RED CELL DISTRIBUTION WIDTH 20.6 % (11.5-14.5); WHITE BLOOD COUNT 8.3 X10'3 (4.5-11.0)
[2020-03-25 18:09] LABS: ALBUMIN 2.5 G/DL (3.4-5.0); ANION GAP 15 (8-16); BLOOD UREA NITROGEN 66 MG/DL (7-18); BUN/CREATININE RATIO 4.9 (6.6-38.0); CHLORIDE 103 MMOL/L (99-107); CREATININE 13.43 MG/DL (0.40-0.90); GLUCOSE 97 MG/DL (70-104); MAGNESIUM 2.2 MG/DL (1.5-2.4); PHOSPHORUS 7.9 MG/DL (2.3-4.5); SODIUM 146 MMOL/L (135-145); TOTAL CARBON DIOXIDE 28.5 MMOL/L (24-32); eGFR 3 ML/MIN
[2020-03-25] MEDS ORDERED: heparin 25,000 UNIT/250ml bag 250 ML IV SCH (18:20)
--- NOTE | 2020-03-25 18:20 | NUR ---
Patient in room CICU 2008. I have received report from Baldemar GOMEZ and had the opportunity to ask questions and assume patient care. Patient in bed on 2LNC with spo2 at 99%, CVVH running per provider orders, access line in right IJ, BiCarb drip, heparin drip, and antibiotics infusing per provider orders. See EMR, interventions and IV spreadsheet for further information. All monitoring alarms audible. Will continue to monitor.
[2020-03-25] MEDS: NORepinephrine 8mg/ 250ml NS 250 ML IV SCH ×2 (18:30→19:52)
[2020-03-25 19:09] LABS: BASOPHILS % (AUTO) 0.3 % (0-1); EOSINOPHILS # (AUTO) 0.3 X10'3 (0-0.9); EOSINOPHILS % (AUTO) 3.2 % (0-6); HEMATOCRIT 30.7 % (35.0-45.0); HEMOGLOBIN 9.8 g/dl (12.0-16.0); LYMPHOCYTES # (AUTO) 1.3 X10'3 (1.1-4.8); LYMPHOCYTES % (AUTO) 15.6 % (21-51); MEAN CORPUSCULAR HEMOGLOBIN 25.6 PG (27.0-31.0); MEAN PLATELET VOLUME 8.8 FL (7.4-10.4); MONOCYTES # (AUTO) 0.7 X10'3 (0-0.9); MONOCYTES % (AUTO) 9.2 % (2-12); NEUTROPHILS # (AUTO) 5.8 X10'3 (1.8-7.7); NEUTROPHILS % (AUTO) 71.7 % (42-75); PLATELET COUNT 263 X10'3 (140-440); RED BLOOD COUNT 3.84 X10'6 (4.20-5.60); RED CELL DISTRIBUTION WIDTH 20.2 % (11.5-14.5); WHITE BLOOD COUNT 8.1 X10'3 (4.5-11.0)
[2020-03-25 19:20] LABS: ALBUMIN 2.5 G/DL (3.4-5.0); ANION GAP 10 (8-16); BLOOD UREA NITROGEN 62 MG/DL (7-18); BUN/CREATININE RATIO 5.1 (6.6-38.0); CHLORIDE 105 MMOL/L (99-107); CREATININE 12.12 MG/DL (0.40-0.90); GLUCOSE 99 MG/DL (70-104); PHOSPHORUS 6.9 MG/DL (2.3-4.5); POTASSIUM 3.8 MMOL/L (3.5-5.1); SODIUM 146 MMOL/L (135-145); TOTAL CARBON DIOXIDE 30.7 MMOL/L (24-32); eGFR 3 ML/MIN
[2020-03-25] MEDS: bicarb dialysis sol 2K+/3 Ca2+ 5,000 ML HE SCH ×3 (19:26→19:28)
[2020-03-25] MEDS ORDERED: heparin, porcine 5000 units/ml vial SQ SCH (20:00)
--- NOTE | 2020-03-25 20:18 | NUR ---
Non administered Lactobacillus PO med, patient asleep, not staying awake for long enough to safely swallow medications at this time.
[2020-03-25 20:46] LABS: BASOPHILS % (AUTO) 0.5 % (0-1); EOSINOPHILS # (AUTO) 0.3 X10'3 (0-0.9); EOSINOPHILS % (AUTO) 3.3 % (0-6); HEMATOCRIT 31.9 % (35.0-45.0); HEMOGLOBIN 10.3 g/dl (12.0-16.0); LYMPHOCYTES # (AUTO) 1.2 X10'3 (1.1-4.8); LYMPHOCYTES % (AUTO) 12.5 % (21-51); MEAN CORPUSCULAR HEMOGLOBIN 25.7 PG (27.0-31.0); MEAN CORPUSCULAR HGB CONC 32.2 g/dL (33.0-36.5); MEAN CORPUSCULAR VOLUME 79.9 FL (78-98); MEAN PLATELET VOLUME 8.7 FL (7.4-10.4); MONOCYTES # (AUTO) 0.9 X10'3 (0-0.9); MONOCYTES % (AUTO) 9.4 % (2-12); NEUTROPHILS % (AUTO) 74.3 % (42-75); PLATELET COUNT 280 X10'3 (140-440); RED BLOOD COUNT 3.99 X10'6 (4.20-5.60); RED CELL DISTRIBUTION WIDTH 20.5 % (11.5-14.5); WHITE BLOOD COUNT 9.4 X10'3 (4.5-11.0)
[2020-03-25 20:58] LABS: ALBUMIN 2.6 G/DL (3.4-5.0); ANION GAP 11 (8-16); BLOOD UREA NITROGEN 54 MG/DL (7-18); BUN/CREATININE RATIO 4.9 (6.6-38.0); CHLORIDE 103 MMOL/L (99-107); CREATININE 10.96 MG/DL (0.40-0.90); GLUCOSE 110 MG/DL (70-104); PHOSPHORUS 6.1 MG/DL (2.3-4.5); POTASSIUM 3.6 MMOL/L (3.5-5.1); SODIUM 145 MMOL/L (135-145); eGFR 4 ML/MIN
[2020-03-26] VITALS (40 sets, daily range): BP systolic 76–182; BP diastolic 26–95
[2020-03-26] MEDS: piperacillin/tazo 3.375gm/50ml 50 ML IV SCH ×3 (00:09→20:11)
[2020-03-26] MEDS: bicarb dialysis sol 2K+/3 Ca2+ 5,000 ML HE SCH ×13 (00:17→22:12)
[2020-03-26] MEDS: potassium Cl 20mEq/100mL bag 100 ML IV PRN ×2 (00:22→01:13)
[2020-03-26] MEDS: heparin 25,000 UNIT/250ml bag 250 ML IV SCH ×2 (00:47→02:37)
[2020-03-26 02:53] LABS: BASOPHILS % (AUTO) 0.3 % (0-1); EOSINOPHILS # (AUTO) 0.3 X10'3 (0-0.9); EOSINOPHILS % (AUTO) 3.1 % (0-6); HEMATOCRIT 31.7 % (35.0-45.0); HEMOGLOBIN 9.9 g/dl (12.0-16.0); LYMPHOCYTES # (AUTO) 0.8 X10'3 (1.1-4.8); LYMPHOCYTES % (AUTO) 10.1 % (21-51); MEAN CORPUSCULAR HGB CONC 31.3 g/dL (33.0-36.5); MEAN CORPUSCULAR VOLUME 79.7 FL (78-98); MEAN PLATELET VOLUME 8.9 FL (7.4-10.4); MONOCYTES # (AUTO) 0.7 X10'3 (0-0.9); MONOCYTES % (AUTO) 9.2 % (2-12); NEUTROPHILS # (AUTO) 6.3 X10'3 (1.8-7.7); NEUTROPHILS % (AUTO) 77.3 % (42-75); PLATELET COUNT 246 X10'3 (140-440); RED BLOOD COUNT 3.98 X10'6 (4.20-5.60); RED CELL DISTRIBUTION WIDTH 20.5 % (11.5-14.5); WHITE BLOOD COUNT 8.1 X10'3 (4.5-11.0)
[2020-03-26 03:06] LABS: ALBUMIN 2.4 G/DL (3.4-5.0); ANION GAP 8 (8-16); BLOOD UREA NITROGEN 33 MG/DL (7-18); BUN/CREATININE RATIO 4.7 (6.6-38.0); CHLORIDE 103 MMOL/L (99-107); CREATININE 6.97 MG/DL (0.40-0.90); GLUCOSE 101 MG/DL (70-104); MAGNESIUM 1.7 MG/DL (1.5-2.4); PHOSPHORUS 3.7 MG/DL (2.3-4.5); POTASSIUM 4.5 MMOL/L (3.5-5.1); SODIUM 143 MMOL/L (135-145); TOTAL CARBON DIOXIDE 31.9 MMOL/L (24-32); eGFR 6 ML/MIN
[2020-03-26] MEDS: magnesium 4gm in 100ml NS 100 ML IV PRN (03:36)
[2020-03-26] MEDS: sodium bicarbonate (8.4%) inj. 150 MEQ in dextrose 5%-water 1,000 ML IV SCH (05:27)
--- NOTE | 2020-03-26 06:18 | NUR ---
Problems reprioritized. Patient report given, questions answered & plan of care reviewed with Baldemar GOMEZ.
[2020-03-26] MEDS: nystatin 15 GM powder TP SCH ×3 (08:06→20:12)
[2020-03-26] MEDS: pantoprazole 40 MG vial IV SCH (08:06)
[2020-03-26] MEDS: lactobacillus rhamnosus 10,000 MMU CELLS/CAPSULE PO SCH ×2 (08:07→20:08)
[2020-03-26] MEDS: lactose-reduced food (Ensure Enlive) - 237ml bottle PO SCH ×2 (08:24→17:19)
[2020-03-26 08:52] LABS: BASOPHILS % (AUTO) 0.2 % (0-1); EOSINOPHILS # (AUTO) 0.2 X10'3 (0-0.9); EOSINOPHILS % (AUTO) 2.1 % (0-6); HEMATOCRIT 32.6 % (35.0-45.0); HEMOGLOBIN 10.3 g/dl (12.0-16.0); LYMPHOCYTES # (AUTO) 0.6 X10'3 (1.1-4.8); LYMPHOCYTES % (AUTO) 6.5 % (21-51); MEAN CORPUSCULAR HEMOGLOBIN 25.2 PG (27.0-31.0); MEAN CORPUSCULAR HGB CONC 31.7 g/dL (33.0-36.5); MEAN CORPUSCULAR VOLUME 79.5 FL (78-98); MEAN PLATELET VOLUME 8.4 FL (7.4-10.4); MONOCYTES # (AUTO) 0.6 X10'3 (0-0.9); MONOCYTES % (AUTO) 7.3 % (2-12); NEUTROPHILS # (AUTO) 7.4 X10'3 (1.8-7.7); NEUTROPHILS % (AUTO) 83.9 % (42-75); PLATELET COUNT 220 X10'3 (140-440); RED CELL DISTRIBUTION WIDTH 20.2 % (11.5-14.5); WHITE BLOOD COUNT 8.8 X10'3 (4.5-11.0)
[2020-03-26 09:08] LABS: ALBUMIN 2.4 G/DL (3.4-5.0); ANION GAP 5 (8-16); BLOOD UREA NITROGEN 21 MG/DL (7-18); BUN/CREATININE RATIO 4.5 (6.6-38.0); CHLORIDE 102 MMOL/L (99-107); CREATININE 4.65 MG/DL (0.40-0.90); GLUCOSE 127 MG/DL (70-104); MAGNESIUM 2.5 MG/DL (1.5-2.4); PHOSPHORUS 2.8 MG/DL (2.3-4.5); POTASSIUM 4.1 MMOL/L (3.5-5.1); SODIUM 140 MMOL/L (135-145); TOTAL CARBON DIOXIDE 33.2 MMOL/L (24-32); eGFR 9 ML/MIN
[2020-03-26 10:07] LABS: ANISOCYTOSIS 3+; MICROCYTOSIS 1+; PLATELET ESTIMATE NORMAL
[2020-03-26 10:11] LABS: ALANINE AMINOTRANSFERASE 18 U/L (12-78); ALBUMIN/GLOBULIN RATIO 0.6 (1.1-1.5); ALKALINE PHOSPHATASE 99 IU/L (46-116); ASPARTATE AMINO TRANSFERASE 18 U/L (10-37); BILIRUBIN,DIRECT 0.1 MG/DL (0-0.3); BILIRUBIN,TOTAL 0.5 MG/DL (0.1-1.0); TOTAL PROTEIN 6.7 G/DL (6.4-8.2)
--- NOTE | 2020-03-26 10:59 | NUR ---
0950: Next HD alarming effluent low pressure. Attempting to correct machine. 1000:Pt's BP dropping, having difficulty restarting HD. Restarted Levo, blood returned. Clot noted in pressure pod. Pt stabilized on Levo, Dr. Silverman informed of situation. Bicarb DC and NS started for IVF.
[2020-03-26] MEDS: normal saline 1000ml 1,000 ML IV SCH (11:05)
--- NOTE | 2020-03-26 11:58 | NUR ---
Patient was on clear liquid diet, drinking Ensure Enlive. D/w RN and , both agree to advance diet to full liquid. D/w RN that Ensure Enlive needs order to send. Addendum: 03/26/20 at [address] Amended: Links added.
[2020-03-26 14:44] LABS: BASOPHILS % (AUTO) 0.3 % (0-1); EOSINOPHILS # (AUTO) 0.2 X10'3 (0-0.9); EOSINOPHILS % (AUTO) 2.4 % (0-6); HEMATOCRIT 29.9 % (35.0-45.0); HEMOGLOBIN 9.5 g/dl (12.0-16.0); LYMPHOCYTES # (AUTO) 0.7 X10'3 (1.1-4.8); LYMPHOCYTES % (AUTO) 9.5 % (21-51); MEAN CORPUSCULAR HEMOGLOBIN 25.3 PG (27.0-31.0); MEAN CORPUSCULAR HGB CONC 31.8 g/dL (33.0-36.5); MEAN CORPUSCULAR VOLUME 79.6 FL (78-98); MEAN PLATELET VOLUME 8.2 FL (7.4-10.4); MONOCYTES # (AUTO) 0.6 X10'3 (0-0.9); MONOCYTES % (AUTO) 8.2 % (2-12); NEUTROPHILS # (AUTO) 5.7 X10'3 (1.8-7.7); NEUTROPHILS % (AUTO) 79.6 % (42-75); PLATELET COUNT 206 X10'3 (140-440); RED BLOOD COUNT 3.76 X10'6 (4.20-5.60); RED CELL DISTRIBUTION WIDTH 20.1 % (11.5-14.5); WHITE BLOOD COUNT 7.1 X10'3 (4.5-11.0)
[2020-03-26 14:54] LABS: ALBUMIN 2.2 G/DL (3.4-5.0); ANION GAP 7 (8-16); BLOOD UREA NITROGEN 17 MG/DL (7-18); BUN/CREATININE RATIO 4.5 (6.6-38.0); CHLORIDE 103 MMOL/L (99-107); CREATININE 3.74 MG/DL (0.40-0.90); GLUCOSE 93 MG/DL (70-104); MAGNESIUM 2.1 MG/DL (1.5-2.4); PHOSPHORUS 3.6 MG/DL (2.3-4.5); POTASSIUM 4.1 MMOL/L (3.5-5.1); SODIUM 141 MMOL/L (135-145); TOTAL CARBON DIOXIDE 31.2 MMOL/L (24-32); eGFR 12 ML/MIN
--- NOTE | 2020-03-26 15:30 | NUR ---
PTT 106. Heparin held and Dr. Silverman informed.
[2020-03-26 15:34] LABS: ANISOCYTOSIS 3+; MICROCYTOSIS 1+; PLATELET ESTIMATE NORMAL
--- NOTE | 2020-03-26 18:21 | NUR ---
Patient in room CICU 2008. I have received report from KOBY GOMEZ and had the opportunity to ask questions and assume patient care.
[2020-03-26] MEDS: emollient combination-Eucerin 250 ML LOTION TP SCH (20:12)
[2020-03-26 20:30] LABS: BASOPHILS % (AUTO) 0.3 % (0-1); EOSINOPHILS # (AUTO) 0.2 X10'3 (0-0.9); EOSINOPHILS % (AUTO) 2.4 % (0-6); HEMATOCRIT 31.7 % (35.0-45.0); LYMPHOCYTES # (AUTO) 0.6 X10'3 (1.1-4.8); LYMPHOCYTES % (AUTO) 7.7 % (21-51); MEAN CORPUSCULAR HEMOGLOBIN 25.6 PG (27.0-31.0); MEAN CORPUSCULAR HGB CONC 31.6 g/dL (33.0-36.5); MEAN CORPUSCULAR VOLUME 81.2 FL (78-98); MEAN PLATELET VOLUME 8.3 FL (7.4-10.4); MONOCYTES # (AUTO) 0.7 X10'3 (0-0.9); MONOCYTES % (AUTO) 8.9 % (2-12); NEUTROPHILS # (AUTO) 5.9 X10'3 (1.8-7.7); NEUTROPHILS % (AUTO) 80.7 % (42-75); PLATELET COUNT 197 X10'3 (140-440); RED BLOOD COUNT 3.91 X10'6 (4.20-5.60); RED CELL DISTRIBUTION WIDTH 20.1 % (11.5-14.5); WHITE BLOOD COUNT 7.3 X10'3 (4.5-11.0)
[2020-03-26 20:42] LABS: ALBUMIN 2.3 G/DL (3.4-5.0); ANION GAP 3 (8-16); BLOOD UREA NITROGEN 12 MG/DL (7-18); BUN/CREATININE RATIO 4.2 (6.6-38.0); CHLORIDE 106 MMOL/L (99-107); CREATININE 2.88 MG/DL (0.40-0.90); GLUCOSE 91 MG/DL (70-104); PHOSPHORUS 2.9 MG/DL (2.3-4.5); POTASSIUM 3.7 MMOL/L (3.5-5.1); SODIUM 142 MMOL/L (135-145); TOTAL CARBON DIOXIDE 33.5 MMOL/L (24-32); eGFR 16 ML/MIN
[2020-03-26 20:44] LABS: ANISOCYTOSIS 3+; MICROCYTOSIS FEW; PLATELET ESTIMATE NORMAL
[2020-03-26] MEDS ORDERED: heparin 10,000 units/1 ML INJ IV PRN (20:50)
[2020-03-27] VITALS (24 sets, daily range): BP systolic 85–160; BP diastolic 53–84
[2020-03-27] MEDS: normal saline 1000ml 1,000 ML IV SCH ×2 (00:25→17:28)
[2020-03-27] MEDS: hydrALAZINE 20mg/ml inj. IV PRN ×2 (00:35→15:34)
[2020-03-27] MEDS: heparin 25,000 UNIT/250ml bag 250 ML IV SCH ×2 (01:47→15:21)
[2020-03-27 03:00] LABS: BASOPHILS % (AUTO) 0.3 % (0-1); EOSINOPHILS # (AUTO) 0.2 X10'3 (0-0.9); EOSINOPHILS % (AUTO) 3.8 % (0-6); HEMATOCRIT 31.2 % (35.0-45.0); HEMOGLOBIN 9.8 g/dl (12.0-16.0); LYMPHOCYTES # (AUTO) 0.8 X10'3 (1.1-4.8); MEAN CORPUSCULAR HEMOGLOBIN 25.6 PG (27.0-31.0); MEAN CORPUSCULAR HGB CONC 31.6 g/dL (33.0-36.5); MEAN CORPUSCULAR VOLUME 81.2 FL (78-98); MEAN PLATELET VOLUME 8.8 FL (7.4-10.4); MONOCYTES # (AUTO) 0.7 X10'3 (0-0.9); MONOCYTES % (AUTO) 10.7 % (2-12); NEUTROPHILS # (AUTO) 4.6 X10'3 (1.8-7.7); NEUTROPHILS % (AUTO) 72.2 % (42-75); PLATELET COUNT 204 X10'3 (140-440); RED BLOOD COUNT 3.84 X10'6 (4.20-5.60); RED CELL DISTRIBUTION WIDTH 19.6 % (11.5-14.5); WHITE BLOOD COUNT 6.3 X10'3 (4.5-11.0)
[2020-03-27 03:15] LABS: ALANINE AMINOTRANSFERASE 15 U/L (12-78); ALBUMIN 2.3 G/DL (3.4-5.0); ALBUMIN/GLOBULIN RATIO 0.6 (1.1-1.5); ALKALINE PHOSPHATASE 103 IU/L (46-116); ANION GAP 6 (8-16); ASPARTATE AMINO TRANSFERASE 19 U/L (10-37); BILIRUBIN,TOTAL 0.4 MG/DL (0.1-1.0); BLOOD UREA NITROGEN 9 MG/DL (7-18); BUN/CREATININE RATIO 4.1 (6.6-38.0); CALCIUM 8.4 MG/DL (8.5-10.1); CHLORIDE 105 MMOL/L (99-107); CREATININE 2.21 MG/DL (0.40-0.90); GLUCOSE 80 MG/DL (70-104); MAGNESIUM 1.8 MG/DL (1.5-2.4); PHOSPHORUS 2.3 MG/DL (2.3-4.5); POTASSIUM 3.4 MMOL/L (3.5-5.1); SODIUM 141 MMOL/L (135-145); TOTAL CARBON DIOXIDE 29.7 MMOL/L (24-32); TOTAL PROTEIN 6.4 G/DL (6.4-8.2); eGFR 22 ML/MIN
[2020-03-27] MEDS: bicarb dialysis sol 2K+/3 Ca2+ 5,000 ML HE SCH ×3 (03:19→03:21)
--- NOTE | 2020-03-27 03:57 | NUR ---
cvvh machine filter clotted. master control supervisor delivery rn notified
[2020-03-27] MEDS: potassium Cl 20mEq/100mL bag 100 ML IV PRN ×2 (04:12→06:46)
--- NOTE | 2020-03-27 06:30 | NUR ---
Patient in room CICU 2008. I have received report from Lorena GOMEZ and had the opportunity to ask questions and assume patient care.
[2020-03-27] MEDS: pantoprazole 40mg Tablet.DR PO SCH (08:10)
[2020-03-27] MEDS: lactobacillus rhamnosus 10,000 MMU CELLS/CAPSULE PO SCH ×2 (08:10→20:47)
[2020-03-27] MEDS: lactose-reduced food (Ensure Enlive) - 237ml bottle PO SCH ×2 (08:11→10:21)
[2020-03-27] MEDS: nystatin 15 GM powder TP SCH ×3 (08:12→20:49)
[2020-03-27] MEDS: emollient combination-Eucerin 250 ML LOTION TP SCH ×2 (08:12→20:49)
[2020-03-27] MEDS: piperacillin/tazo 3.375gm/50ml 50 ML IV SCH ×2 (09:06→20:47)
[2020-03-27 09:08] LABS: BASOPHILS % (AUTO) 0.3 % (0-1); EOSINOPHILS # (AUTO) 0.3 X10'3 (0-0.9); EOSINOPHILS % (AUTO) 4.4 % (0-6); HEMATOCRIT 30.1 % (35.0-45.0); HEMOGLOBIN 9.5 g/dl (12.0-16.0); LYMPHOCYTES # (AUTO) 0.8 X10'3 (1.1-4.8); LYMPHOCYTES % (AUTO) 12.6 % (21-51); MEAN CORPUSCULAR HEMOGLOBIN 25.4 PG (27.0-31.0); MEAN CORPUSCULAR HGB CONC 31.5 g/dL (33.0-36.5); MEAN CORPUSCULAR VOLUME 80.6 FL (78-98); MEAN PLATELET VOLUME 8.3 FL (7.4-10.4); MONOCYTES # (AUTO) 0.6 X10'3 (0-0.9); MONOCYTES % (AUTO) 9.6 % (2-12); NEUTROPHILS # (AUTO) 4.4 X10'3 (1.8-7.7); NEUTROPHILS % (AUTO) 73.1 % (42-75); PLATELET COUNT 194 X10'3 (140-440); RED BLOOD COUNT 3.74 X10'6 (4.20-5.60); RED CELL DISTRIBUTION WIDTH 19.3 % (11.5-14.5)
[2020-03-27 09:18] LABS: ALBUMIN 2.2 G/DL (3.4-5.0); ANION GAP 8 (8-16); BLOOD UREA NITROGEN 11 MG/DL (7-18); BUN/CREATININE RATIO 4.1 (6.6-38.0); CHLORIDE 105 MMOL/L (99-107); GLUCOSE 106 MG/DL (70-104); MAGNESIUM 1.7 MG/DL (1.5-2.4); PHOSPHORUS 2.8 MG/DL (2.3-4.5); POTASSIUM 4.5 MMOL/L (3.5-5.1); SODIUM 141 MMOL/L (135-145); TOTAL CARBON DIOXIDE 28.3 MMOL/L (24-32); eGFR 18 ML/MIN
[2020-03-27] MEDS: Duosol 4K/3 Ca (w/calcium) 5,000 ML HE SCH ×5 (09:45→15:15)
[2020-03-27] MEDS: NORepinephrine 8mg/ 250ml NS 250 ML IV SCH (10:08)
[2020-03-27 11:21] LABS: ANISOCYTOSIS 2+; PLATELET ESTIMATE NORMAL
[2020-03-27 11:22] LABS: HYPOCHROMASIA 1+
[2020-03-27 14:42] LABS: BASOPHILS % (AUTO) 0.3 % (0-1); EOSINOPHILS # (AUTO) 0.2 X10'3 (0-0.9); EOSINOPHILS % (AUTO) 4.6 % (0-6); HEMATOCRIT 28.9 % (35.0-45.0); HEMOGLOBIN 9.1 g/dl (12.0-16.0); LYMPHOCYTES # (AUTO) 0.9 X10'3 (1.1-4.8); LYMPHOCYTES % (AUTO) 17.6 % (21-51); MEAN CORPUSCULAR HEMOGLOBIN 25.8 PG (27.0-31.0); MEAN CORPUSCULAR HGB CONC 31.6 g/dL (33.0-36.5); MEAN CORPUSCULAR VOLUME 81.5 FL (78-98); MEAN PLATELET VOLUME 8.6 FL (7.4-10.4); MONOCYTES # (AUTO) 0.5 X10'3 (0-0.9); MONOCYTES % (AUTO) 11.1 % (2-12); NEUTROPHILS # (AUTO) 3.2 X10'3 (1.8-7.7); NEUTROPHILS % (AUTO) 66.4 % (42-75); PLATELET COUNT 186 X10'3 (140-440); RED BLOOD COUNT 3.55 X10'6 (4.20-5.60); RED CELL DISTRIBUTION WIDTH 19.8 % (11.5-14.5); WHITE BLOOD COUNT 4.9 X10'3 (4.5-11.0)
[2020-03-27 14:53] LABS: ALBUMIN 2.1 G/DL (3.4-5.0); ANION GAP 6 (8-16); BLOOD UREA NITROGEN 9 MG/DL (7-18); BUN/CREATININE RATIO 4.3 (6.6-38.0); CHLORIDE 107 MMOL/L (99-107); CREATININE 2.08 MG/DL (0.40-0.90); GLUCOSE 79 MG/DL (70-104); MAGNESIUM 1.6 MG/DL (1.5-2.4); PHOSPHORUS 2.6 MG/DL (2.3-4.5); POTASSIUM 4.1 MMOL/L (3.5-5.1); SODIUM 143 MMOL/L (135-145); TOTAL CARBON DIOXIDE 30.4 MMOL/L (24-32); eGFR 24 ML/MIN
[2020-03-27] MEDS: magnesium 4gm in 100ml NS 100 ML IV PRN (15:18)
[2020-03-27 15:19] LABS: ANISOCYTOSIS 2+; LARGE PLATELETS FEW; PLATELET ESTIMATE NORMAL
--- NOTE | 2020-03-27 17:49 | NUR ---
Per Dr. Silverman if CVVH machine goes down tonight, it can be restated in the AM 03/28/20. no other new orders at this time
--- NOTE | 2020-03-27 18:11 | NUR ---
Problems reprioritized. Patient report given, questions answered & plan of care reviewed with Phylicia GOMEZ.
[2020-03-27 21:29] LABS: BASOPHILS % (AUTO) 0.3 % (0-1); EOSINOPHILS # (AUTO) 0.2 X10'3 (0-0.9); EOSINOPHILS % (AUTO) 4.9 % (0-6); HEMATOCRIT 28.6 % (35.0-45.0); HEMOGLOBIN 8.9 g/dl (12.0-16.0); LYMPHOCYTES % (AUTO) 22.9 % (21-51); MEAN CORPUSCULAR HEMOGLOBIN 25.1 PG (27.0-31.0); MEAN CORPUSCULAR HGB CONC 31.2 g/dL (33.0-36.5); MEAN CORPUSCULAR VOLUME 80.4 FL (78-98); MEAN PLATELET VOLUME 8.8 FL (7.4-10.4); MONOCYTES # (AUTO) 0.5 X10'3 (0-0.9); MONOCYTES % (AUTO) 11.9 % (2-12); NEUTROPHILS # (AUTO) 2.6 X10'3 (1.8-7.7); PLATELET COUNT 177 X10'3 (140-440); RED BLOOD COUNT 3.56 X10'6 (4.20-5.60); RED CELL DISTRIBUTION WIDTH 19.6 % (11.5-14.5); WHITE BLOOD COUNT 4.4 X10'3 (4.5-11.0)
[2020-03-27 21:44] LABS: ALBUMIN 2.1 G/DL (3.4-5.0); ANION GAP 6 (8-16); BLOOD UREA NITROGEN 6 MG/DL (7-18); BUN/CREATININE RATIO 3.6 (6.6-38.0); CHLORIDE 107 MMOL/L (99-107); CREATININE 1.68 MG/DL (0.40-0.90); GLUCOSE 71 MG/DL (70-104); MAGNESIUM 2.3 MG/DL (1.5-2.4); PHOSPHORUS 1.8 MG/DL (2.3-4.5); SODIUM 142 MMOL/L (135-145); eGFR 31 ML/MIN
[2020-03-27] MEDS ORDERED: heparin 1,000 units/ml 10ml inj HE ONE ×2 (23:30)
--- NOTE | 2020-03-27 23:33 | NUR ---
cvvh filter clotted. ordered to restart machine in am.
[2020-03-28] VITALS (15 sets, daily range): BP systolic 92–160; BP diastolic 51–76
[2020-03-28 02:46] LABS: BASOPHILS % (AUTO) 0.4 % (0-1); EOSINOPHILS # (AUTO) 0.2 X10'3 (0-0.9); EOSINOPHILS % (AUTO) 5.2 % (0-6); HEMATOCRIT 27.7 % (35.0-45.0); HEMOGLOBIN 8.6 g/dl (12.0-16.0); LYMPHOCYTES # (AUTO) 0.9 X10'3 (1.1-4.8); LYMPHOCYTES % (AUTO) 20.9 % (21-51); MEAN CORPUSCULAR HEMOGLOBIN 24.9 PG (27.0-31.0); MEAN CORPUSCULAR HGB CONC 30.9 g/dL (33.0-36.5); MEAN CORPUSCULAR VOLUME 80.6 FL (78-98); MEAN PLATELET VOLUME 8.6 FL (7.4-10.4); MONOCYTES # (AUTO) 0.5 X10'3 (0-0.9); NEUTROPHILS # (AUTO) 2.7 X10'3 (1.8-7.7); NEUTROPHILS % (AUTO) 62.5 % (42-75); PLATELET COUNT 182 X10'3 (140-440); RED BLOOD COUNT 3.44 X10'6 (4.20-5.60); RED CELL DISTRIBUTION WIDTH 19.6 % (11.5-14.5); WHITE BLOOD COUNT 4.4 X10'3 (4.5-11.0)
[2020-03-28] MEDS: heparin 25,000 UNIT/250ml bag 250 ML IV SCH (02:47)
[2020-03-28 03:02] LABS: ALANINE AMINOTRANSFERASE 14 U/L (12-78); ALBUMIN 2.1 G/DL (3.4-5.0); ALBUMIN/GLOBULIN RATIO 0.6 (1.1-1.5); ALKALINE PHOSPHATASE 86 IU/L (46-116); ANION GAP 1 (8-16); ASPARTATE AMINO TRANSFERASE 13 U/L (10-37); BILIRUBIN,TOTAL 0.2 MG/DL (0.1-1.0); BLOOD UREA NITROGEN 6 MG/DL (7-18); CHLORIDE 109 MMOL/L (99-107); CREATININE 1.99 MG/DL (0.40-0.90); GLUCOSE 86 MG/DL (70-104); MAGNESIUM 2.4 MG/DL (1.5-2.4); PHOSPHORUS 2.4 MG/DL (2.3-4.5); SODIUM 141 MMOL/L (135-145); TOTAL CARBON DIOXIDE 31.4 MMOL/L (24-32); TOTAL PROTEIN 5.8 G/DL (6.4-8.2); eGFR 25 ML/MIN
[2020-03-28 03:17] LABS: ANISOCYTOSIS 2+; MICROCYTOSIS 1+; PLATELET ESTIMATE NORMAL
[2020-03-28] MEDS: normal saline 1000ml 1,000 ML IV SCH ×2 (03:19→20:26)
[2020-03-28] MEDS: pantoprazole 40mg Tablet.DR PO SCH (07:46)
[2020-03-28] MEDS: nystatin 15 GM powder TP SCH ×3 (07:46→20:11)
[2020-03-28] MEDS: piperacillin/tazo 3.375gm/50ml 50 ML IV SCH ×2 (07:46→20:27)
[2020-03-28] MEDS: lactobacillus rhamnosus 10,000 MMU CELLS/CAPSULE PO SCH ×2 (07:46→20:09)
[2020-03-28] MEDS: emollient combination-Eucerin 250 ML LOTION TP SCH ×2 (07:47→20:11)
[2020-03-28] MEDS: lactose-reduced food (Ensure Enlive) - 237ml bottle PO SCH ×2 (07:50→17:49)
[2020-03-28 09:34] LABS: BASOPHILS % (AUTO) 0.3 % (0-1); EOSINOPHILS # (AUTO) 0.2 X10'3 (0-0.9); EOSINOPHILS % (AUTO) 5.1 % (0-6); HEMATOCRIT 27.8 % (35.0-45.0); HEMOGLOBIN 8.8 g/dl (12.0-16.0); LYMPHOCYTES # (AUTO) 0.9 X10'3 (1.1-4.8); LYMPHOCYTES % (AUTO) 20.1 % (21-51); MEAN CORPUSCULAR HEMOGLOBIN 25.7 PG (27.0-31.0); MEAN CORPUSCULAR HGB CONC 31.6 g/dL (33.0-36.5); MEAN CORPUSCULAR VOLUME 81.4 FL (78-98); MEAN PLATELET VOLUME 8.6 FL (7.4-10.4); MONOCYTES # (AUTO) 0.5 X10'3 (0-0.9); MONOCYTES % (AUTO) 11.5 % (2-12); NEUTROPHILS # (AUTO) 2.7 X10'3 (1.8-7.7); PLATELET COUNT 174 X10'3 (140-440); RED BLOOD COUNT 3.41 X10'6 (4.20-5.60); RED CELL DISTRIBUTION WIDTH 19.8 % (11.5-14.5); WHITE BLOOD COUNT 4.2 X10'3 (4.5-11.0)
--- NOTE | 2020-03-28 13:30 | NUR ---
Pt transferred out of ICU. Report to floor RN.
--- NOTE | 2020-03-28 13:44 | NUR ---
pt transferred to 3014B from ICU. a/ox3. oriented to unit. VSS.
--- NOTE | 2020-03-28 18:15 | NUR ---
Patient in room PCU 3014. I have received report from Prema GOMEZ and had the opportunity to ask questions and assume patient care.
--- NOTE | 2020-03-28 18:26 | NUR ---
Problems reprioritized. Patient report given, questions answered & plan of care reviewed with JASON Mcgee.
[2020-03-29 02:00] VITALS: BP 154/82
[2020-03-29] MEDS: normal saline 1000ml 1,000 ML IV SCH ×2 (05:45→19:05)
--- NOTE | 2020-03-29 06:28 | NUR ---
Patient in room PCU 3014. I have received report from JASON Mcgee and had the opportunity to ask questions and assume patient care.
--- NOTE | 2020-03-29 06:30 | NUR ---
Problems reprioritized. Patient report given, questions answered & plan of care reviewed with Melany GOMEZ.
[2020-03-29 07:00] VITALS: BP 162/85
[2020-03-29] MEDS: lactose-reduced food (Ensure Enlive) - 237ml bottle PO SCH ×2 (07:40→17:30)
[2020-03-29] MEDS: piperacillin/tazo 3.375gm/50ml 50 ML IV SCH ×2 (07:40→20:37)
[2020-03-29] MEDS: lactobacillus rhamnosus 10,000 MMU CELLS/CAPSULE PO SCH ×2 (07:40→20:37)
[2020-03-29] MEDS: nystatin 15 GM powder TP SCH ×3 (07:43→20:37)
[2020-03-29] MEDS: emollient combination-Eucerin 250 ML LOTION TP SCH ×2 (08:00→20:55)
[2020-03-29 11:00] VITALS: BP 131/68
[2020-03-29 12:06] LABS: BASOPHILS % (AUTO) 0.4 % (0-1); EOSINOPHILS # (AUTO) 0.2 X10'3 (0-0.9); EOSINOPHILS % (AUTO) 3.2 % (0-6); HEMATOCRIT 29.7 % (35.0-45.0); HEMOGLOBIN 9.2 g/dl (12.0-16.0); LYMPHOCYTES % (AUTO) 15.4 % (21-51); MEAN CORPUSCULAR HEMOGLOBIN 25.1 PG (27.0-31.0); MEAN CORPUSCULAR HGB CONC 31.1 g/dL (33.0-36.5); MEAN CORPUSCULAR VOLUME 80.7 FL (78-98); MEAN PLATELET VOLUME 8.3 FL (7.4-10.4); MONOCYTES # (AUTO) 0.6 X10'3 (0-0.9); MONOCYTES % (AUTO) 9.3 % (2-12); NEUTROPHILS # (AUTO) 4.7 X10'3 (1.8-7.7); NEUTROPHILS % (AUTO) 71.7 % (42-75); PLATELET COUNT 190 X10'3 (140-440); RED BLOOD COUNT 3.68 X10'6 (4.20-5.60); RED CELL DISTRIBUTION WIDTH 19.5 % (11.5-14.5); WHITE BLOOD COUNT 6.5 X10'3 (4.5-11.0)
[2020-03-29 12:26] LABS: ALANINE AMINOTRANSFERASE 16 U/L (12-78); ALBUMIN 2.3 G/DL (3.4-5.0); ALBUMIN/GLOBULIN RATIO 0.5 (1.1-1.5); ALKALINE PHOSPHATASE 97 IU/L (46-116); ANION GAP 8 (8-16); ASPARTATE AMINO TRANSFERASE 25 U/L (10-37); BILIRUBIN,TOTAL 0.2 MG/DL (0.1-1.0); BLOOD UREA NITROGEN 9 MG/DL (7-18); BUN/CREATININE RATIO 3.3 (6.6-38.0); CALCIUM 7.9 MG/DL (8.5-10.1); CHLORIDE 111 MMOL/L (99-107); CREATININE 2.69 MG/DL (0.40-0.90); GLUCOSE 79 MG/DL (70-104); MAGNESIUM 1.8 MG/DL (1.5-2.4); PHOSPHORUS 2.4 MG/DL (2.3-4.5); POTASSIUM 3.8 MMOL/L (3.5-5.1); SODIUM 146 MMOL/L (135-145); TOTAL CARBON DIOXIDE 26.6 MMOL/L (24-32); TOTAL PROTEIN 6.5 G/DL (6.4-8.2); eGFR 18 ML/MIN
[2020-03-29 12:41] LABS: ANISOCYTOSIS 2+; PLATELET ESTIMATE NORMAL; TOTAL CELLS COUNTED 100
[2020-03-29 12:43] LABS: HYPOCHROMASIA 1+
[2020-03-29 15:00] VITALS: BP 108/67
--- NOTE | 2020-03-29 15:07 | NUR ---
Initial: Pt admit with acute renal failure, hyperkalemia, N/V, and diarrhea. PATRICIA probably d/t prerenal azotemia and pt placed on CVVH however CVVH now on hold per MD notes. Pt initially on a clear liquid diet documented with 0% PO intake however diet has been advanced to regular diet and pt documented with average 50% PO intake of meals. Pt continues receiving Ensure Enlive BIDBD and documented with 50% PO intake of ONS. Combined pt roughly consuming 1600 kcal and 80 g protein a day meeting nutrient needs using ABW for estimated energy needs and IBW for estimated protein needs in morbidly obese pt. Per [facility] notes and physical assessment pt with BLE cellulitis and reddened IAD to buttocks. Pt seen at bedside provided with written protein education with brief verbal review as well as alternative regular menu for additional food options. Pt states low PO intake is r/t not feeling well with N/V and diarrhea however pt is trying to eat more. Pt requests decaf coffee TID and ice cream BIDLD, d/w dietary. LBM 7/2 documented as diarrhea. Pt provided with RD contact information and encouraged to reach out if needed. Will remain available. Recommendations: 1) Continue regular diet; Encourage PO intake 2) Monitor renal labs and need for diet change 3) Decaf coffee TID, ice cream BIDLD per pt request 4) Ensure Enlive BIDBD 5) Scaled weights per rx Addendum: 03/29/20 at [address] Amended: Links added.
--- NOTE | 2020-03-29 18:03 | NUR ---
Problems reprioritized. Patient report given, questions answered & plan of care reviewed with JASON Lea.
[2020-03-29 19:00] VITALS: BP 149/81
[2020-03-29 23:00] VITALS: BP 177/87
[2020-03-30 03:00] VITALS: BP 180/95
[2020-03-30 06:00] VITALS: BP 175/102
[2020-03-30 06:05] LABS: ALANINE AMINOTRANSFERASE 16 U/L (12-78); ALBUMIN 2.5 G/DL (3.4-5.0); ALBUMIN/GLOBULIN RATIO 0.6 (1.1-1.5); ALKALINE PHOSPHATASE 106 IU/L (46-116); ANION GAP 8 (8-16); ASPARTATE AMINO TRANSFERASE 14 U/L (10-37); BILIRUBIN,TOTAL 0.2 MG/DL (0.1-1.0); BLOOD UREA NITROGEN 10 MG/DL (7-18); BUN/CREATININE RATIO 3.9 (6.6-38.0); CHLORIDE 110 MMOL/L (99-107); CREATININE 2.55 MG/DL (0.40-0.90); GLUCOSE 90 MG/DL (70-104); PHOSPHORUS 2.9 MG/DL (2.3-4.5); POTASSIUM 3.6 MMOL/L (3.5-5.1); SODIUM 145 MMOL/L (135-145); TOTAL PROTEIN 6.9 G/DL (6.4-8.2); eGFR 19 ML/MIN
[2020-03-30 06:08] LABS: CALCIUM 8.4 MG/DL (8.5-10.1)
--- NOTE | 2020-03-30 06:20 | NUR ---
Patient in room PCU 3013. I have received report from Leonora GOMEZ and had the opportunity to ask questions and assume patient care.
--- NOTE | 2020-03-30 06:20 | NUR ---
Problems reprioritized. Patient report given, questions answered & plan of care reviewed with Zuleima GOMEZ.
[2020-03-30] MEDS: lactose-reduced food (Ensure Enlive) - 237ml bottle PO SCH ×2 (07:30→17:47)
[2020-03-30] MEDS: emollient combination-Eucerin 250 ML LOTION TP SCH ×2 (08:00→20:07)
[2020-03-30] MEDS: nystatin 15 GM powder TP SCH ×3 (08:00→20:05)
[2020-03-30] MEDS: lactobacillus rhamnosus 10,000 MMU CELLS/CAPSULE PO SCH ×2 (09:31→20:05)
[2020-03-30] MEDS: piperacillin/tazo 3.375gm/50ml 50 ML IV SCH (09:31)
[2020-03-30] MEDS: lisinopril 5mg tablet PO SCH (09:31)
[2020-03-30 11:00] VITALS: BP 170/85
--- NOTE | 2020-03-30 14:00 | NUR ---
Pt's beasley cath DC'd. 10 ml of saline removed from balloon. 1000 ml of urine in beasley bag. Pt tolerated well.
[2020-03-30 15:00] VITALS: BP 164/92
[2020-03-30 18:00] VITALS: BP 138/58
--- NOTE | 2020-03-30 18:38 | NUR ---
Patient in room PCU 3013. I have received report from JASON Sinclair and had the opportunity to ask questions and assume patient care.
[2020-03-30 22:00] VITALS: BP 137/69
[2020-03-31 02:00] VITALS: BP 162/91
[2020-03-31 06:00] VITALS: BP 169/79
--- NOTE | 2020-03-31 06:06 | NUR ---
Problems reprioritized. Patient report given, questions answered & plan of care reviewed with JASON Sinclair
--- NOTE | 2020-03-31 06:10 | NUR ---
Patient in room PCU 3013. I have received report from Zuleima GOMEZ and had the opportunity to ask questions and assume patient care.
[2020-03-31 06:57] LABS: ALANINE AMINOTRANSFERASE 16 U/L (12-78); ALBUMIN 2.6 G/DL (3.4-5.0); ALBUMIN/GLOBULIN RATIO 0.6 (1.1-1.5); ALKALINE PHOSPHATASE 104 IU/L (46-116); ANION GAP 11 (8-16); ASPARTATE AMINO TRANSFERASE 16 U/L (10-37); BILIRUBIN,TOTAL 0.2 MG/DL (0.1-1.0); BLOOD UREA NITROGEN 10 MG/DL (7-18); BUN/CREATININE RATIO 4.5 (6.6-38.0); CALCIUM 8.5 MG/DL (8.5-10.1); CHLORIDE 111 MMOL/L (99-107); GLUCOSE 85 MG/DL (70-104); PHOSPHORUS 3.5 MG/DL (2.3-4.5); POTASSIUM 3.8 MMOL/L (3.5-5.1); SODIUM 147 MMOL/L (135-145); TOTAL CARBON DIOXIDE 24.8 MMOL/L (24-32); eGFR 22 ML/MIN
[2020-03-31] MEDS: lactobacillus rhamnosus 10,000 MMU CELLS/CAPSULE PO SCH ×2 (07:33→21:47)
[2020-03-31] MEDS: lisinopril 5mg tablet PO SCH (07:34)
[2020-03-31] MEDS: lactose-reduced food (Ensure Enlive) - 237ml bottle PO SCH ×2 (07:39→17:46)
[2020-03-31] MEDS: nystatin 15 GM powder TP SCH ×3 (07:39→21:47)
[2020-03-31] MEDS: emollient combination-Eucerin 250 ML LOTION TP SCH ×2 (07:44→21:47)
[2020-03-31 11:00] VITALS: BP 161/83
[2020-03-31 15:00] VITALS: BP 147/77
[2020-03-31 18:00] VITALS: BP 156/76
--- NOTE | 2020-03-31 18:52 | NUR ---
Problems reprioritized. Patient report given, questions answered & plan of care reviewed with Madison GOMEZ.
--- NOTE | 2020-03-31 19:10 | NUR ---
Patient in room PCU 3013. I have received report from DAYO GOMEZ and had the opportunity to ask questions and assume patient care.
[2020-03-31 22:00] VITALS: BP 148/81
[2020-04-01] VITALS (7 sets, daily range): BP systolic 141–177; BP diastolic 65–87
--- NOTE | 2020-04-01 01:03 | NUR ---
NOTIFIED BY RURAL MAIL CONTRACTOR AT THIS TIME, PATIENT HAD SEVERAL LONG PAUSES OVER A 3 MINUTE PERIOD. VITAL SIGNS BEING CHECKED. PATIENT HAS BEEN HAVING THESE OFF AND ON THROUGHOUT THIS ADMIT PER REPORT FROM EARLY SHIFT RN. 2.6 SECS TO 2.8 SECOND PAUSES. MICHELLE BUSTAMANTE, ARCHITECTURAL INSPECTOR FOOD SERVICE AIDE NOTIFIED.
--- NOTE | 2020-04-01 01:14 | NUR ---
NO ORDERS FROM MICHELLE BUSTAMANTE, CONTINUE TO CAPTURE RHYTHM, MONITOR. VITAL SIGNS HR 105, RR 16 , O2 97% ON RA, AND B/P 180/84
--- NOTE | 2020-04-01 06:15 | NUR ---
Problems reprioritized. Patient report given, questions answered & plan of care reviewed with MARCO GOMEZ.
[2020-04-01 06:18] LABS: ALANINE AMINOTRANSFERASE 15 U/L (12-78); ALBUMIN 2.5 G/DL (3.4-5.0); ALBUMIN/GLOBULIN RATIO 0.6 (1.1-1.5); ALKALINE PHOSPHATASE 99 IU/L (46-116); ANION GAP 8 (8-16); ASPARTATE AMINO TRANSFERASE 15 U/L (10-37); BILIRUBIN,TOTAL 0.2 MG/DL (0.1-1.0); BLOOD UREA NITROGEN 13 MG/DL (7-18); BUN/CREATININE RATIO 6.8 (6.6-38.0); CALCIUM 8.5 MG/DL (8.5-10.1); CHLORIDE 112 MMOL/L (99-107); CREATININE 1.91 MG/DL (0.40-0.90); GLUCOSE 83 MG/DL (70-104); PHOSPHORUS 3.6 MG/DL (2.3-4.5); POTASSIUM 3.8 MMOL/L (3.5-5.1); SODIUM 146 MMOL/L (135-145); TOTAL CARBON DIOXIDE 25.7 MMOL/L (24-32); TOTAL PROTEIN 6.8 G/DL (6.4-8.2); eGFR 26 ML/MIN
--- NOTE | 2020-04-01 06:32 | NUR ---
Patient in room PCU 3013. I have received report from Madison GOMEZ and had the opportunity to ask questions and assume patient care.
[2020-04-01] MEDS: lactobacillus rhamnosus 10,000 MMU CELLS/CAPSULE PO SCH ×2 (07:53→20:13)
[2020-04-01] MEDS: lactose-reduced food (Ensure Enlive) - 237ml bottle PO SCH ×3 (07:53→15:47)
[2020-04-01] MEDS: lisinopril 5mg tablet PO SCH ×2 (07:53→20:14)
[2020-04-01] MEDS: emollient combination-Eucerin 250 ML LOTION TP SCH ×2 (07:54→20:15)
[2020-04-01] MEDS: nystatin 15 GM powder TP SCH ×3 (07:54→20:15)
[2020-04-01] MEDS ORDERED: furosemide 40mg/4ml inj IV ONE (13:00)
--- NOTE | 2020-04-01 17:44 | NUR ---
Cardiac Rhythm: Sinus rhythm with pauses.
--- NOTE | 2020-04-01 18:45 | NUR ---
Patient in room PCU 3013. I have received report from JASON Alonzo and had the opportunity to ask questions and assume patient care.
[2020-04-02 02:19] VITALS: BP 152/77
[2020-04-02 06:00] VITALS: BP 167/102
--- NOTE | 2020-04-02 06:33 | NUR ---
Problems reprioritized. Patient report given, questions answered & plan of care reviewed with JASON March.
--- NOTE | 2020-04-02 06:34 | NUR ---
Patient in room PCU 3013. I have received report from JASON VAZQUEZ and had the opportunity to ask questions and assume patient care.
[2020-04-02] MEDS: lactobacillus rhamnosus 10,000 MMU CELLS/CAPSULE PO SCH (08:03)
[2020-04-02] MEDS: emollient combination-Eucerin 250 ML LOTION TP SCH (08:04)
[2020-04-02] MEDS: nystatin 15 GM powder TP SCH ×2 (08:04→13:01)
[2020-04-02] MEDS: lisinopril 5mg tablet PO SCH (08:04)
[2020-04-02 11:00] VITALS: BP 151/70
[2020-04-02] MEDS ORDERED: LISI-600 PO (13:54)
[2020-04-02 15:00] VITALS: BP 143/66
--- NOTE | 2020-04-02 17:24 | NUR ---
WITH DC INSTRUCTIONS, STATES "I USE [facility], NOT [facility]" DISCUSSED, STARTS "I CAN GET IT FILLED THERE ONCE".MEDICATION WAS E SENT BY MD TO [facility].
== END 2020-04-02 17:51 | disposition home or self-care (01) | DRG 469 ==
LOC: ER 23:26 → ED HOLD 03-25 02:33 → CICU 2S 03-25 03:51 → PCU 3S 03-28 13:18
PROC: 02HV33Z Insertion of Infusion Device into Superior Vena Cava, Percutaneous Approach (ICD-10-PCS; principal; 2020-03-25)
PROC: B548ZZA Ultrasonography of Superior Vena Cava, Guidance (ICD-10-PCS; 2020-03-25)
DX: N17.9 Acute kidney failure, unspecified (principal); J44.9 Chronic obstructive pulmonary disease, unspecified; E87.5 Hyperkalemia; I10 Essential (primary) hypertension; F17.210 Nicotine dependence, cigarettes, uncomplicated; F20.9 Schizophrenia, unspecified; Z86.73 Personal history of transient ischemic attack (TIA), and cerebral infarction without residual deficits
CPT/HCPCS: 36415; 71045; 76775; 76937; 80053; 80069; 80076; 81001; 81025; 82330; 82550; 82570; 82948; 83605; 83690; 83735; 83935; 84100; 84133; 84145; 84156; 84300; 85025; 85610; 85730; 87040; 87077; 87081; 87088; 87186; 87207; 90935; 93005; 94640; 94760; 97116; 97161; 97530; 99285; C9113; E1594; G0378; J0360; J1644; J1815; J1940; J2270; J2543; J3475; J3480; J7030; J7614

== ENCOUNTER 2020-04-11 17:43 | Emergency (ER) | payer MEDICAID ==
[~2020-04-11] VITALS: Ht 165.1 cm; Wt 81.8 kg
[~2020-04-11 17:43] MED LIST changes: -NOR5T PO; -SULF1TAB49 PO
[2020-04-11] MEDS ORDERED: normal saline 1000ML IV soln IVB ONE (17:55)
[2020-04-11 18:20] LABS: BASOPHILS % (AUTO) 0.4 % (0-1); EOSINOPHILS # (AUTO) 0.3 X10'3 (0-0.9); EOSINOPHILS % (AUTO) 4.1 % (0-6); HEMATOCRIT 28.1 % (35.0-45.0); HEMOGLOBIN 8.9 g/dl (12.0-16.0); LYMPHOCYTES # (AUTO) 1.4 X10'3 (1.1-4.8); LYMPHOCYTES % (AUTO) 17.4 % (21-51); MEAN CORPUSCULAR HEMOGLOBIN 26.3 PG (27.0-31.0); MEAN CORPUSCULAR HGB CONC 31.8 g/dL (33.0-36.5); MEAN CORPUSCULAR VOLUME 82.7 FL (78-98); MEAN PLATELET VOLUME 8.2 FL (7.4-10.4); MONOCYTES # (AUTO) 0.7 X10'3 (0-0.9); MONOCYTES % (AUTO) 8.3 % (2-12); NEUTROPHILS # (AUTO) 5.6 X10'3 (1.8-7.7); NEUTROPHILS % (AUTO) 69.8 % (42-75); PLATELET COUNT 319 X10'3 (140-440); RED CELL DISTRIBUTION WIDTH 20.5 % (11.5-14.5)
[2020-04-11 18:35] LABS: ALANINE AMINOTRANSFERASE 16 U/L (12-78); ALBUMIN 2.6 G/DL (3.4-5.0); ALBUMIN/GLOBULIN RATIO 0.6 (1.1-1.5); ALKALINE PHOSPHATASE 95 IU/L (46-116); ANION GAP 12 (8-16); ASPARTATE AMINO TRANSFERASE 22 U/L (10-37); BILIRUBIN,TOTAL 0.2 MG/DL (0.1-1.0); BLOOD UREA NITROGEN 30 MG/DL (7-18); CALCIUM 8.4 MG/DL (8.5-10.1); CHLORIDE 117 MMOL/L (99-107); CREATININE 2.51 MG/DL (0.40-0.90); GLUCOSE 99 MG/DL (70-104); POTASSIUM 4.5 MMOL/L (3.5-5.1); SODIUM 151 MMOL/L (135-145); TOTAL CARBON DIOXIDE 22.4 MMOL/L (24-32); TOTAL PROTEIN 7.2 G/DL (6.4-8.2); eGFR 19 ML/MIN
[2020-04-11] MEDS ORDERED: LORazepam 1 MG tablet PO ONE (18:40)
--- NOTE | 2020-04-11 18:48 | NUR ---
patient encouraged to void. she stated she can not yet. provider aware. 2 liters of NS being administered. gait test ordered when fluids are complete. will try for urine sample at that time
[2020-04-11 19:06] LABS: ANISOCYTOSIS 2+; HYPOCHROMASIA 1+; PLATELET ESTIMATE NORMAL
[2020-04-11 20:14] LABS: CLARITY,URINE SLIGHTLY CLOUDY (Clear); COLOR,URINE YELLOW (Yellow); GLUCOSE, URINE NEGATIVE (Neg); KETONES,URINE NEGATIVE (Neg); LEUKOCYTE ESTERASE ,URINE SMALL (Neg); NITRITES, URINE NEGATIVE (Neg); OCCULT BLOOD,URINE NEGATIVE (Neg); PROTEIN,URINE 100 mg/dl (Neg); UROBILINOGEN,URINE 0.2 E.U/dL (0.2-1.0)
[2020-04-11 20:15] LABS: UA COLLECTION TYPE CLN CATCH MIDSTREAM
[2020-04-11 20:19] LABS: RBC,URINE NONE SEEN /HPF (0-2)
[2020-04-11 20:20] LABS: BACTERIA,URINE 2+ /HPF (Neg); SQUAMOUS EPITHELIAL CELL,UR MODERATE /LPF (FEW)
--- NOTE | 2020-04-11 20:30 | NUR ---
BREAKING PRIMARY RN. WILL MONITOR PT. PT RESTING COMFORTABLY.
[2020-04-11 20:43] VITALS: BP 147/82
== END 2020-04-11 20:45 | disposition home or self-care (01) ==
LOC: ER 17:44
DX: S00.31XA Abrasion of nose, initial encounter (principal); E86.0 Dehydration; N18.9 Chronic kidney disease, unspecified; R60.9 Edema, unspecified; J45.909 Unspecified asthma, uncomplicated; F20.9 Schizophrenia, unspecified; Z86.73 Personal history of transient ischemic attack (TIA), and cerebral infarction without residual deficits; Z85.9 Personal history of malignant neoplasm, unspecified; Z60.2 Problems related to living alone; Z88.8 Allergy status to other drugs, medicaments and biological substances; Z79.899 Other long term (current) drug therapy; W18.39XA Other fall on same level, initial encounter; Y93.89 Activity, other specified; Y92.89 Other specified places as the place of occurrence of the external cause; Y99.8 Other external cause status
CPT/HCPCS: 36415; 70450; 80053; 81001; 85025; 87088; 93005; 96360; 99285; J7030

== ENCOUNTER 2020-04-21 15:23 | Inpatient (IN) | payer MEDICAID ==
[~2020-04-21] VITALS: Ht 165.1 cm; Wt 98.0 kg
--- NOTE | 2020-04-21 15:35 | NUR ---
EVS PLACED PTS BELONGINGS AND WALKER IN A BIOHAZARD BAG IN THE HAXMAT SHOWER
--- NOTE | 2020-04-21 16:10 | NUR ---
Pt taken to outside hazmat shower by [facility] via for soaking of feet to remove embedded shoes. Feet soaked in water w/ tonya soap and peroxide. Bilateral lower extremities cleaned also.
[2020-04-21] MEDS ORDERED: CefTRIAXone/D5W-Rocephin 1gm 50 ML IV ONE (16:15)
--- NOTE | 2020-04-21 17:00 | NUR ---
Shoes removed with significant soaking and slow extraction by CORINNA Washington. Sandals left deep embedded areas with notable wound regions under straps. DREW Wagner assessed loer limbs/feet after deep soak and clean.
[2020-04-21 17:36] LABS: BASOPHILS # (AUTO) 0.1 X10'3 (0-0.2); BASOPHILS % (AUTO) 1.2 % (0-1); EOSINOPHILS # (AUTO) 0.3 X10'3 (0-0.9); EOSINOPHILS % (AUTO) 2.6 % (0-6); HEMATOCRIT 30.8 % (35.0-45.0); HEMOGLOBIN 9.7 g/dl (12.0-16.0); LYMPHOCYTES # (AUTO) 1.5 X10'3 (1.1-4.8); LYMPHOCYTES % (AUTO) 12.9 % (21-51); MEAN CORPUSCULAR HEMOGLOBIN 25.6 PG (27.0-31.0); MEAN CORPUSCULAR HGB CONC 31.6 g/dL (33.0-36.5); MEAN PLATELET VOLUME 7.8 FL (7.4-10.4); MONOCYTES % (AUTO) 8.5 % (2-12); NEUTROPHILS # (AUTO) 8.6 X10'3 (1.8-7.7); NEUTROPHILS % (AUTO) 74.8 % (42-75); PLATELET COUNT 540 X10'3 (140-440); RED CELL DISTRIBUTION WIDTH 19.7 % (11.5-14.5); WHITE BLOOD COUNT 11.6 X10'3 (4.5-11.0)
[2020-04-21 17:51] LABS: ALANINE AMINOTRANSFERASE 58 U/L (12-78); ALBUMIN 2.6 G/DL (3.4-5.0); ALBUMIN/GLOBULIN RATIO 0.5 (1.1-1.5); ALKALINE PHOSPHATASE 198 IU/L (46-116); ANION GAP 7 (8-16); ASPARTATE AMINO TRANSFERASE 44 U/L (10-37); BILIRUBIN,TOTAL 0.2 MG/DL (0.1-1.0); BLOOD UREA NITROGEN 21 MG/DL (7-18); BUN/CREATININE RATIO 14.6 (6.6-38.0); CALCIUM 8.8 MG/DL (8.5-10.1); CHLORIDE 106 MMOL/L (99-107); CREATININE 1.44 MG/DL (0.40-0.90); GLUCOSE 103 MG/DL (70-104); POTASSIUM 4.1 MMOL/L (3.5-5.1); SODIUM 138 MMOL/L (135-145); TOTAL CARBON DIOXIDE 24.8 MMOL/L (24-32); eGFR 37 ML/MIN
[2020-04-21] MEDS ORDERED: temazepam 15mg capsule PO PRN (21:00)
[2020-04-21] MEDS ORDERED: potassium Cl 20 mEq SR tablet PO PRN ×2 (21:20)
[2020-04-21] MEDS ORDERED: potassium CL 10mEq/100ml bag 100 ML IV PRN ×2 (21:20)
[2020-04-21] MEDS ORDERED: ondansetron/PF 4mg/2ml inj IV PRN (21:20)
[2020-04-21] MEDS ORDERED: magnesium Cl slow-release 64mg tablet PO PRN (21:20)
[2020-04-21] MEDS ORDERED: acetaminophen 325mg tablet PO PRN ×2 (21:20)
[2020-04-21] MEDS ORDERED: morphine 2 MG/ML inj. syringe IV PRN (21:20)
[2020-04-21] MEDS ORDERED: magnesium 2GM in 50ml NS 50 ML IV PRN (21:20)
[2020-04-21] MEDS ORDERED: magnesium 4gm in 100ml NS 100 ML IV PRN (21:20)
[2020-04-21] MEDS ORDERED: levalbuterol 0.63mg/3ml nebule IH PRN (21:25)
--- NOTE | 2020-04-21 21:45 | NUR ---
PT CONTINUES TO REST QUIETLY. WARM BLANKET PROVIDED
--- NOTE | 2020-04-21 22:37 | NUR ---
Patient in room ED 12. I have received report from Shira Cameron and had the opportunity to ask questions and assume patient care. Addendum: 04/21/20 at 2238 by Precious Burroughs RN Amended: Links added.
[2020-04-21] MEDS: normal saline 1000ml 1,000 ML IV SCH (22:53)
[2020-04-21 22:55] VITALS: BP 164/83
--- NOTE | 2020-04-21 23:35 | NUR ---
pt wound pictures taken to add to ones er had done after doing that and 2 person skin check bilat lower extremity legs dressed bilat with 3 Xeroform gauzes, 2 abd pads and guaze fluffs. right leg wrapped with one kerlix roll and lefty leg wrapped with 2 kerlix rolls. did it with 2 Rn's and pt assisting holding her leg up one at a time. pt tolerated well.
--- NOTE | 2020-04-22 01:18 | NUR ---
resting eyes closed without changes at this time.
--- NOTE | 2020-04-22 03:50 | NUR ---
mouth care given positioned to comfort.
[2020-04-22 05:44] LABS: BASOPHILS % (AUTO) 0.4 % (0-1); EOSINOPHILS # (AUTO) 0.2 X10'3 (0-0.9); EOSINOPHILS % (AUTO) 1.9 % (0-6); HEMATOCRIT 26.4 % (35.0-45.0); HEMOGLOBIN 8.4 g/dl (12.0-16.0); LYMPHOCYTES % (AUTO) 12.9 % (21-51); MEAN CORPUSCULAR HEMOGLOBIN 25.7 PG (27.0-31.0); MEAN CORPUSCULAR HGB CONC 31.7 g/dL (33.0-36.5); MEAN CORPUSCULAR VOLUME 81.1 FL (78-98); MEAN PLATELET VOLUME 7.9 FL (7.4-10.4); MONOCYTES # (AUTO) 0.9 X10'3 (0-0.9); MONOCYTES % (AUTO) 11.3 % (2-12); NEUTROPHILS # (AUTO) 5.9 X10'3 (1.8-7.7); NEUTROPHILS % (AUTO) 73.5 % (42-75); PLATELET COUNT 423 X10'3 (140-440); RED BLOOD COUNT 3.25 X10'6 (4.20-5.60); RED CELL DISTRIBUTION WIDTH 19.3 % (11.5-14.5); WHITE BLOOD COUNT 8.1 X10'3 (4.5-11.0)
[2020-04-22 06:04] LABS: ALANINE AMINOTRANSFERASE 40 U/L (12-78); ALBUMIN/GLOBULIN RATIO 0.5 (1.1-1.5); ALKALINE PHOSPHATASE 156 IU/L (46-116); ANION GAP 6 (8-16); ASPARTATE AMINO TRANSFERASE 25 U/L (10-37); BILIRUBIN,TOTAL 0.3 MG/DL (0.1-1.0); BLOOD UREA NITROGEN 18 MG/DL (7-18); BUN/CREATININE RATIO 16.2 (6.6-38.0); CALCIUM 8.2 MG/DL (8.5-10.1); CHLORIDE 110 MMOL/L (99-107); CREATININE 1.11 MG/DL (0.40-0.90); GLUCOSE 90 MG/DL (70-104); MAGNESIUM 2.2 MG/DL (1.5-2.4); POTASSIUM 4.3 MMOL/L (3.5-5.1); SODIUM 141 MMOL/L (135-145); TOTAL PROTEIN 6.4 G/DL (6.4-8.2); eGFR 49 ML/MIN
--- NOTE | 2020-04-22 06:05 | NUR ---
Patient in room ESTEBAN 352. I have received report from JASON Lang and had the opportunity to ask questions and assume patient care.
--- NOTE | 2020-04-22 06:26 | NUR ---
Problems reprioritized. Patient report given, questions answered & plan of care reviewed with TNOY GOMEZ. Addendum: 04/22/20 at 0626 by Precious Burroughs RN Amended: Links added.
[2020-04-22 06:30] VITALS: BP 105/63
[2020-04-22 06:58] LABS: PLATELET ESTIMATE NORMAL
[2020-04-22 06:59] LABS: ANISOCYTOSIS 2+; ELLIPTOCYTES FEW; HYPOCHROMASIA 1+; POLYCHROMASIA 1+; STOMATOCYTES FEW
[2020-04-22] MEDS: K and/or MAG REPLACEMENT MC SCH ×2 (07:13→20:00)
[2020-04-22] MEDS: normal saline 1000ml 1,000 ML IV SCH ×3 (10:13→22:15)
[2020-04-22] MEDS: heparin, porcine 5000 units/ml vial SQ SCH ×2 (10:14→22:05)
[2020-04-22] MEDS: docusate sod 100mg capsule PO SCH ×2 (10:14→22:04)
[2020-04-22] MEDS: pantoprazole 40mg Tablet.DR PO SCH (10:14)
[2020-04-22] MEDS: doxycycline inj 100 MG in normal saline 100ml IV soln 100 ML IV SCH ×2 (10:15→22:15)
[2020-04-22 11:00] VITALS: BP 98/45
[2020-04-22] MEDS: nystatin 15 GM powder TP SCH ×2 (11:06→22:04)
--- NOTE | 2020-04-22 18:10 | NUR ---
Problems reprioritized. Patient report given, questions answered & plan of care reviewed with JASON Lang.
--- NOTE | 2020-04-22 18:27 | NUR ---
Patient in room ESTEBAN 352. I have received report from TONY GOMEZ and had the opportunity to ask questions and assume patient care. Addendum: 04/22/20 at 1827 by Precious Burroughs RN Amended: Links added.
[2020-04-22 20:00] VITALS: BP 137/72
--- NOTE | 2020-04-22 20:21 | NUR ---
sleeping eyes closed without changes at this time.
[2020-04-22] MEDS: lactobacillus rhamnosus 10,000 MMU CELLS/CAPSULE PO SCH (22:04)
--- NOTE | 2020-04-22 23:00 | NUR ---
pt resting without changes.
[2020-04-23] VITALS: BP 121/121
--- NOTE | 2020-04-23 02:05 | NUR ---
pt resting without s&s of distress at this time.
--- NOTE | 2020-04-23 04:00 | NUR ---
awoke put on bedpan void 500cc med yellow urine skin care done. assisted in repositioning up in bed and juice given per request.
[2020-04-23 05:14] LABS: BASOPHILS % (AUTO) 0.2 % (0-1); EOSINOPHILS # (AUTO) 0.2 X10'3 (0-0.9); EOSINOPHILS % (AUTO) 2.9 % (0-6); HEMATOCRIT 25.2 % (35.0-45.0); HEMOGLOBIN 7.9 g/dl (12.0-16.0); LYMPHOCYTES # (AUTO) 1.3 X10'3 (1.1-4.8); LYMPHOCYTES % (AUTO) 21.8 % (21-51); MEAN CORPUSCULAR HEMOGLOBIN 25.5 PG (27.0-31.0); MEAN CORPUSCULAR HGB CONC 31.4 g/dL (33.0-36.5); MEAN CORPUSCULAR VOLUME 80.9 FL (78-98); MEAN PLATELET VOLUME 7.6 FL (7.4-10.4); MONOCYTES # (AUTO) 0.6 X10'3 (0-0.9); MONOCYTES % (AUTO) 10.6 % (2-12); NEUTROPHILS # (AUTO) 3.8 X10'3 (1.8-7.7); NEUTROPHILS % (AUTO) 64.5 % (42-75); PLATELET COUNT 402 X10'3 (140-440); RED BLOOD COUNT 3.12 X10'6 (4.20-5.60); RED CELL DISTRIBUTION WIDTH 19.3 % (11.5-14.5); WHITE BLOOD COUNT 5.9 X10'3 (4.5-11.0)
--- NOTE | 2020-04-23 05:15 | NUR ---
resting without changes at this time.
[2020-04-23 05:31] LABS: ALANINE AMINOTRANSFERASE 30 U/L (12-78); ALBUMIN 1.8 G/DL (3.4-5.0); ALBUMIN/GLOBULIN RATIO 0.4 (1.1-1.5); ALKALINE PHOSPHATASE 140 IU/L (46-116); ANION GAP 8 (8-16); ASPARTATE AMINO TRANSFERASE 13 U/L (10-37); BILIRUBIN,TOTAL 0.2 MG/DL (0.1-1.0); BLOOD UREA NITROGEN 14 MG/DL (7-18); CALCIUM 8.2 MG/DL (8.5-10.1); CHLORIDE 109 MMOL/L (99-107); CREATININE 1.08 MG/DL (0.40-0.90); GLUCOSE 100 MG/DL (70-104); MAGNESIUM 2.1 MG/DL (1.5-2.4); SODIUM 141 MMOL/L (135-145); TOTAL CARBON DIOXIDE 23.6 MMOL/L (24-32); TOTAL PROTEIN 6.1 G/DL (6.4-8.2); eGFR 51 ML/MIN
--- NOTE | 2020-04-23 06:36 | NUR ---
Problems reprioritized. Patient report given, questions answered & plan of care reviewed with MATT GOMEZ. Addendum: 04/23/20 at 0637 by Precious Burroughs RN Amended: Links added.
--- NOTE | 2020-04-23 06:53 | NUR ---
Patient in room ESTEBAN 352. I have received report from Precious GOMEZ and had the opportunity to ask questions and assume patient care.
[2020-04-23 07:15] VITALS: BP 165/89
[2020-04-23] MEDS: mineral oil/petrolatum, white cream 113gm jar TP SCH (08:00)
[2020-04-23] MEDS: K and/or MAG REPLACEMENT MC SCH ×2 (08:00→20:00)
[2020-04-23] MEDS: heparin, porcine 5000 units/ml vial SQ SCH ×2 (08:26→21:53)
[2020-04-23] MEDS: nystatin 15 GM powder TP SCH ×2 (08:26→21:54)
[2020-04-23] MEDS: doxycycline inj 100 MG in normal saline 100ml IV soln 100 ML IV SCH (08:26)
[2020-04-23] MEDS: docusate sod 100mg capsule PO SCH ×2 (08:26→21:53)
[2020-04-23] MEDS: lactobacillus rhamnosus 10,000 MMU CELLS/CAPSULE PO SCH ×2 (08:26→21:53)
[2020-04-23] MEDS: pantoprazole 40mg Tablet.DR PO SCH (08:26)
[2020-04-23] MEDS ORDERED: AMLO5TAB16 PO (11:39)
[2020-04-23 12:04] VITALS: BP 140/77
--- NOTE | 2020-04-23 13:16 | NUR ---
Paged Dr. Neville that [facility] evaluated patient and did not recommend a 5150. Awaiting call back.
[2020-04-23] MEDS: normal saline 1000ml 1,000 ML IV SCH ×2 (13:18→15:18)
[2020-04-23] MEDS: DOXYCYCLINE 100MG CAPSULE PO SCH (17:05)
--- NOTE | 2020-04-23 18:35 | NUR ---
Problems reprioritized. Patient report given, questions answered & plan of care reviewed with Precious GOMEZ.
--- NOTE | 2020-04-23 18:45 | NUR ---
Patient in room ESTEBAN 352. I have received report from MATT GOMEZ and had the opportunity to ask questions and assume patient care. Addendum: 04/23/20 at 1845 by Precious Burroughs RN Amended: Links added.
--- NOTE | 2020-04-23 19:15 | NUR ---
pt inc of urine and put on bedpan had 300cc more of urine. skin care done had smear of bm. liens changed and positioned up in bed for comfort.
--- NOTE | 2020-04-23 19:35 | NUR ---
HS MEDS GIVEN TOLERATED WELL. Addendum: 04/23/20 at 2250 by Precious Burroughs RN pt meds given 2150 after bath completed and when pt awake again.
[2020-04-23 20:00] VITALS: BP 144/70
--- NOTE | 2020-04-23 21:00 | NUR ---
PT USED BEDPAN THEN COMPLETE BED BATH DONE WITH BACK RUB AND SKIN CARE DONE ON PT. PT TOLERATED IT WELL. Addendum: 04/23/20 at 2247 by Precious Burroughs RN pt bedbath done at 1940 and pt tolerated well.
--- NOTE | 2020-04-23 21:35 | NUR ---
PT POSITIONED ON HER SIDE FOR COMFORT ARMS ELEVATED WITH PILLOWS AND HEELS FLOATED AND PILLOW BETWEEN PT KNEES.
--- NOTE | 2020-04-23 22:42 | NUR ---
PT RESTING WITHOUT S&S OF DISTRESS AT THIS TIME.
[2020-04-24] MEDS: normal saline 1000ml 1,000 ML IV SCH ×2 (00:54→11:57)
--- NOTE | 2020-04-24 00:55 | NUR ---
PT AWOKE PUT ON BEDPAN TO VOID AND HAVE A bM.
--- NOTE | 2020-04-24 01:29 | NUR ---
pt now resting eyes closed without changes.
[2020-04-24 01:37] VITALS: BP 176/78
--- NOTE | 2020-04-24 03:30 | NUR ---
resting without changes.
--- NOTE | 2020-04-24 05:26 | NUR ---
resting without changes.
--- NOTE | 2020-04-24 06:24 | NUR ---
Problems reprioritized. Patient report given, questions answered & plan of care reviewed with Nelson Dumont. Addendum: 04/24/20 at 0625 by Precious Burroughs RN Amended: Links added.
[2020-04-24 06:26] LABS: ALANINE AMINOTRANSFERASE 24 U/L (12-78); ALBUMIN 1.8 G/DL (3.4-5.0); ALBUMIN/GLOBULIN RATIO 0.4 (1.1-1.5); ALKALINE PHOSPHATASE 140 IU/L (46-116); ANION GAP 6 (8-16); ASPARTATE AMINO TRANSFERASE 13 U/L (10-37); BILIRUBIN,TOTAL 0.2 MG/DL (0.1-1.0); BLOOD UREA NITROGEN 11 MG/DL (7-18); BUN/CREATININE RATIO 10.5 (6.6-38.0); CALCIUM 8.4 MG/DL (8.5-10.1); CHLORIDE 108 MMOL/L (99-107); CREATININE 1.05 MG/DL (0.40-0.90); GLUCOSE 88 MG/DL (70-104); MAGNESIUM 1.9 MG/DL (1.5-2.4); POTASSIUM 4.1 MMOL/L (3.5-5.1); SODIUM 141 MMOL/L (135-145); TOTAL CARBON DIOXIDE 26.7 MMOL/L (24-32); TOTAL PROTEIN 6.3 G/DL (6.4-8.2); eGFR 53 ML/MIN
[2020-04-24 06:40] LABS: BASOPHILS % (AUTO) 0.6 % (0-1); EOSINOPHILS # (AUTO) 0.2 X10'3 (0-0.9); EOSINOPHILS % (AUTO) 2.8 % (0-6); HEMATOCRIT 25.7 % (35.0-45.0); HEMOGLOBIN 8.3 g/dl (12.0-16.0); LYMPHOCYTES # (AUTO) 1.1 X10'3 (1.1-4.8); LYMPHOCYTES % (AUTO) 18.3 % (21-51); MEAN CORPUSCULAR HEMOGLOBIN 25.7 PG (27.0-31.0); MEAN CORPUSCULAR HGB CONC 32.1 g/dL (33.0-36.5); MEAN PLATELET VOLUME 8.1 FL (7.4-10.4); MONOCYTES # (AUTO) 0.5 X10'3 (0-0.9); MONOCYTES % (AUTO) 8.5 % (2-12); NEUTROPHILS # (AUTO) 4.1 X10'3 (1.8-7.7); NEUTROPHILS % (AUTO) 69.8 % (42-75); PLATELET COUNT 407 X10'3 (140-440); RED BLOOD COUNT 3.22 X10'6 (4.20-5.60); RED CELL DISTRIBUTION WIDTH 18.7 % (11.5-14.5); WHITE BLOOD COUNT 5.9 X10'3 (4.5-11.0)
--- NOTE | 2020-04-24 06:58 | NUR ---
Patient in room ESTEBAN 352. I have received report from JASON Lang and had the opportunity to ask questions and assume patient care.
[2020-04-24 07:00] VITALS: BP 157/77
[2020-04-24 07:03] LABS: ANISOCYTOSIS 1+; PLATELET ESTIMATE NORMAL
[2020-04-24 07:04] LABS: HYPOCHROMASIA 1+; STOMATOCYTES 1+
[2020-04-24] MEDS: docusate sod 100mg capsule PO SCH ×2 (07:54→20:56)
[2020-04-24] MEDS: DOXYCYCLINE 100MG CAPSULE PO SCH ×2 (07:54→17:36)
[2020-04-24] MEDS: mineral oil/petrolatum, white cream 113gm jar TP SCH (07:54)
[2020-04-24] MEDS: pantoprazole 40mg Tablet.DR PO SCH (07:54)
[2020-04-24] MEDS: lactobacillus rhamnosus 10,000 MMU CELLS/CAPSULE PO SCH ×2 (07:54→20:57)
[2020-04-24] MEDS: heparin, porcine 5000 units/ml vial SQ SCH ×2 (07:55→20:57)
[2020-04-24] MEDS: nystatin 15 GM powder TP SCH ×2 (07:55→21:12)
[2020-04-24] MEDS: K and/or MAG REPLACEMENT MC SCH ×2 (08:00→20:00)
[2020-04-24 11:00] VITALS: BP 169/95
--- NOTE | 2020-04-24 11:58 | NUR ---
Pt having debridement by [facility]. legs will be redressed by them.
[2020-04-24] MEDS: HYDROcodone/acetaminophen 5mg/325mg tablet PO PRN ×2 (13:24→20:57)
--- NOTE | 2020-04-24 17:56 | NUR ---
Problems reprioritized. Patient report given, questions answered & plan of care reviewed with Laure Russell RN.
--- NOTE | 2020-04-24 18:05 | NUR ---
Patient in room ESTEBAN 352. I have received report from JASON Mo and had the opportunity to ask questions and assume patient care.
[2020-04-24 20:00] VITALS: BP 183/93
--- NOTE | 2020-04-24 21:04 | NUR ---
BP's continue to remain high 170's and above. MD OTT'd fluids.
--- NOTE | 2020-04-24 21:45 | NUR ---
Pt c/o shortness of breath and coughing. Sat straight up in bed, O2 95% on RA, paged RT for treatment. RT at bedside 10 minutes later. States pt feeling better and does not want treatment at this time.
[2020-04-25] VITALS: BP 183/83
[2020-04-25 05:52] LABS: BASOPHILS % (AUTO) 0.4 % (0-1); EOSINOPHILS # (AUTO) 0.2 X10'3 (0-0.9); EOSINOPHILS % (AUTO) 2.8 % (0-6); HEMATOCRIT 27.2 % (35.0-45.0); HEMOGLOBIN 8.8 g/dl (12.0-16.0); LYMPHOCYTES # (AUTO) 1.2 X10'3 (1.1-4.8); LYMPHOCYTES % (AUTO) 19.8 % (21-51); MEAN CORPUSCULAR HEMOGLOBIN 25.9 PG (27.0-31.0); MEAN CORPUSCULAR HGB CONC 32.2 g/dL (33.0-36.5); MEAN CORPUSCULAR VOLUME 80.6 FL (78-98); MEAN PLATELET VOLUME 7.6 FL (7.4-10.4); MONOCYTES # (AUTO) 0.6 X10'3 (0-0.9); MONOCYTES % (AUTO) 10.5 % (2-12); NEUTROPHILS # (AUTO) 4.1 X10'3 (1.8-7.7); NEUTROPHILS % (AUTO) 66.5 % (42-75); PLATELET COUNT 432 X10'3 (140-440); RED BLOOD COUNT 3.38 X10'6 (4.20-5.60); RED CELL DISTRIBUTION WIDTH 18.7 % (11.5-14.5); WHITE BLOOD COUNT 6.2 X10'3 (4.5-11.0)
[2020-04-25 06:08] LABS: ALANINE AMINOTRANSFERASE 22 U/L (12-78); ALBUMIN/GLOBULIN RATIO 0.4 (1.1-1.5); ALKALINE PHOSPHATASE 142 IU/L (46-116); ANION GAP 7 (8-16); ASPARTATE AMINO TRANSFERASE 13 U/L (10-37); BILIRUBIN,TOTAL 0.2 MG/DL (0.1-1.0); BLOOD UREA NITROGEN 10 MG/DL (7-18); BUN/CREATININE RATIO 10.1 (6.6-38.0); CALCIUM 8.9 MG/DL (8.5-10.1); CHLORIDE 107 MMOL/L (99-107); CREATININE 0.99 MG/DL (0.40-0.90); GLUCOSE 89 MG/DL (70-104); MAGNESIUM 1.8 MG/DL (1.5-2.4); POTASSIUM 4.1 MMOL/L (3.5-5.1); SODIUM 142 MMOL/L (135-145); TOTAL CARBON DIOXIDE 28.1 MMOL/L (24-32); TOTAL PROTEIN 6.6 G/DL (6.4-8.2); eGFR 56 ML/MIN
--- NOTE | 2020-04-25 06:31 | NUR ---
Problems reprioritized. Patient report given, questions answered & plan of care reviewed with JASON Barnes.
--- NOTE | 2020-04-25 06:38 | NUR ---
Patient in room ESTEBAN 352. I have received report from Laure GOMEZ and had the opportunity to ask questions and assume patient care.
[2020-04-25 07:00] VITALS: BP_SYST 173; BP_SYST 199; BP_DIAS 106; BP_DIAS 92
[2020-04-25 07:01] LABS: ANISOCYTOSIS 2+; PLATELET ESTIMATE NORMAL; TOTAL CELLS COUNTED 100
[2020-04-25] MEDS: K and/or MAG REPLACEMENT MC SCH ×2 (08:00→20:00)
[2020-04-25] MEDS: DOXYCYCLINE 100MG CAPSULE PO SCH ×2 (08:09→17:09)
[2020-04-25] MEDS: pantoprazole 40mg Tablet.DR PO SCH (08:10)
[2020-04-25] MEDS: heparin, porcine 5000 units/ml vial SQ SCH ×2 (08:10→21:18)
[2020-04-25] MEDS: lactobacillus rhamnosus 10,000 MMU CELLS/CAPSULE PO SCH ×2 (08:10→21:18)
[2020-04-25] MEDS: docusate sod 100mg capsule PO SCH ×3 (08:10→21:18)
[2020-04-25] MEDS: mineral oil/petrolatum, white cream 113gm jar TP SCH (08:11)
[2020-04-25] MEDS: nystatin 15 GM powder TP SCH ×2 (08:11→21:19)
[2020-04-25] MEDS: lisinopril 20mg tablet PO SCH (10:57)
[2020-04-25] MEDS: amLODIPine 5mg tablet PO SCH (10:57)
[2020-04-25 11:00] VITALS: BP 169/78
[2020-04-25] MEDS: HYDROcodone/acetaminophen 5mg/325mg tablet PO PRN (17:09)
[2020-04-25] MEDS: lactose-reduced food (Ensure Enlive) - 237ml bottle PO SCH (17:50)
--- NOTE | 2020-04-25 18:15 | NUR ---
Patient in room ESTEBAN 352. I have received report from JASON Barnes and had the opportunity to ask questions and assume patient care.
--- NOTE | 2020-04-25 19:29 | NUR ---
Problems reprioritized. Patient report given, questions answered & plan of care reviewed with Laure GOMEZ.
[2020-04-25 20:00] VITALS: BP 150/85
[2020-04-25] MEDS ORDERED: lactobacillus rhamnosus 10,000 MMU CELLS/CAPSULE PO SCH (20:00)
[2020-04-26] VITALS: BP 175/94
[2020-04-26 05:54] LABS: BASOPHILS % (AUTO) 0.4 % (0-1); EOSINOPHILS # (AUTO) 0.1 X10'3 (0-0.9); EOSINOPHILS % (AUTO) 2.1 % (0-6); HEMATOCRIT 27.5 % (35.0-45.0); LYMPHOCYTES # (AUTO) 1.3 X10'3 (1.1-4.8); LYMPHOCYTES % (AUTO) 22.3 % (21-51); MEAN CORPUSCULAR HEMOGLOBIN 26.5 PG (27.0-31.0); MEAN CORPUSCULAR HGB CONC 32.7 g/dL (33.0-36.5); MEAN CORPUSCULAR VOLUME 81.2 FL (78-98); MEAN PLATELET VOLUME 7.7 FL (7.4-10.4); MONOCYTES # (AUTO) 0.6 X10'3 (0-0.9); MONOCYTES % (AUTO) 9.8 % (2-12); NEUTROPHILS # (AUTO) 3.9 X10'3 (1.8-7.7); NEUTROPHILS % (AUTO) 65.4 % (42-75); PLATELET COUNT 414 X10'3 (140-440); RED BLOOD COUNT 3.39 X10'6 (4.20-5.60); RED CELL DISTRIBUTION WIDTH 18.6 % (11.5-14.5); WHITE BLOOD COUNT 5.9 X10'3 (4.5-11.0)
[2020-04-26 06:07] LABS: ALANINE AMINOTRANSFERASE 20 U/L (12-78); ALBUMIN 2.1 G/DL (3.4-5.0); ALBUMIN/GLOBULIN RATIO 0.5 (1.1-1.5); ALKALINE PHOSPHATASE 142 IU/L (46-116); ANION GAP 4 (8-16); ASPARTATE AMINO TRANSFERASE 15 U/L (10-37); BILIRUBIN,TOTAL 0.2 MG/DL (0.1-1.0); BLOOD UREA NITROGEN 11 MG/DL (7-18); BUN/CREATININE RATIO 10.1 (6.6-38.0); CALCIUM 8.8 MG/DL (8.5-10.1); CHLORIDE 105 MMOL/L (99-107); CREATININE 1.09 MG/DL (0.40-0.90); GLUCOSE 110 MG/DL (70-104); MAGNESIUM 1.9 MG/DL (1.5-2.4); POTASSIUM 3.8 MMOL/L (3.5-5.1); SODIUM 140 MMOL/L (135-145); TOTAL CARBON DIOXIDE 31.5 MMOL/L (24-32); TOTAL PROTEIN 6.6 G/DL (6.4-8.2); eGFR 50 ML/MIN
--- NOTE | 2020-04-26 06:20 | NUR ---
Problems reprioritized. Patient report given, questions answered & plan of care reviewed with JASON Starr.
--- NOTE | 2020-04-26 06:34 | NUR ---
Patient in room ESTEBAN 352. I have received report from JASON Kelsey and had the opportunity to ask questions and assume patient care.
[2020-04-26 07:00] VITALS: BP 151/79
[2020-04-26] MEDS: lactose-reduced food (Ensure Enlive) - 237ml bottle PO SCH ×2 (07:30→18:00)
[2020-04-26 07:47] LABS: ANISOCYTOSIS 2+; HYPOCHROMASIA 2+; PLATELET ESTIMATE NORMAL; POLYCHROMASIA FEW; TOTAL CELLS COUNTED 100
[2020-04-26] MEDS: docusate sod 100mg capsule PO SCH ×3 (08:00→20:19)
[2020-04-26] MEDS: K and/or MAG REPLACEMENT MC SCH ×2 (08:00→20:00)
[2020-04-26] MEDS: lisinopril 20mg tablet PO SCH (08:38)
[2020-04-26] MEDS: lactobacillus rhamnosus 10,000 MMU CELLS/CAPSULE PO SCH ×2 (08:38→20:19)
[2020-04-26] MEDS: amLODIPine 5mg tablet PO SCH (08:38)
[2020-04-26] MEDS: heparin, porcine 5000 units/ml vial SQ SCH ×2 (08:39→20:19)
[2020-04-26] MEDS: DOXYCYCLINE 100MG CAPSULE PO SCH ×2 (08:39→17:20)
[2020-04-26] MEDS: mineral oil/petrolatum, white cream 113gm jar TP SCH (08:42)
[2020-04-26] MEDS: pantoprazole 40mg Tablet.DR PO SCH (08:42)
[2020-04-26] MEDS: nystatin 15 GM powder TP SCH ×2 (08:43→20:19)
--- NOTE | 2020-04-26 09:59 | NUR ---
Initial: Pt admit with BLE cellulitis. Per [facility] notes pt with BLE full thickness venous ulcer and full thickness PU to right heel. Pt currently on a heart healthy diet documented with 75-100% PO intake. Noted that Ensure Enlive BIDBD ordered however not yet provided d/t not being available. D/w dietary to send ONS per rx. Pt meeting nutrient needs with increased protein for wound healing at this time. [facility] 04/25. Will continue to follow and monitor need for further nutrition intervention. Recommendations: 1) Continue heart healthy diet 2) Ensure Enlive BIDBD 3) Routine bowel care 4) Scaled weights per rx Addendum: 04/26/20 at [address] Amended: Links added.
[2020-04-26 11:00] VITALS: BP 167/90
[2020-04-26 18:00] VITALS: BP 150/78
--- NOTE | 2020-04-26 18:39 | NUR ---
Problems reprioritized. Patient report given, questions answered & plan of care reviewed with JASON Magaña.
--- NOTE | 2020-04-26 18:40 | NUR ---
Patient in room ESTEBAN 352. I have received report from JASON Starr and had the opportunity to ask questions and assume patient care.
[2020-04-27] VITALS: BP 147/73
--- NOTE | 2020-04-27 06:30 | NUR ---
Patient in room ESTEBAN 352. I have received report from Archana GOMEZ and had the opportunity to ask questions and assume patient care.
--- NOTE | 2020-04-27 06:47 | NUR ---
Problems reprioritized. Patient report given, questions answered & plan of care reviewed with JASON Lopez.
[2020-04-27 07:00] VITALS: BP 190/97
[2020-04-27] MEDS: lactose-reduced food (Ensure Enlive) - 237ml bottle PO SCH ×2 (07:30→17:30)
[2020-04-27] MEDS: pantoprazole 40mg Tablet.DR PO SCH (07:31)
[2020-04-27] MEDS: docusate sod 100mg capsule PO SCH ×3 (07:31→20:00)
[2020-04-27] MEDS: lisinopril 20mg tablet PO SCH (07:31)
[2020-04-27] MEDS: lactobacillus rhamnosus 10,000 MMU CELLS/CAPSULE PO SCH ×2 (07:31→20:18)
[2020-04-27] MEDS: amLODIPine 5mg tablet PO SCH (07:32)
[2020-04-27] MEDS: nystatin 15 GM powder TP SCH ×2 (07:32→20:19)
[2020-04-27] MEDS: mineral oil/petrolatum, white cream 113gm jar TP SCH (07:32)
[2020-04-27] MEDS: K and/or MAG REPLACEMENT MC SCH ×2 (08:00→19:19)
[2020-04-27] MEDS: heparin, porcine 5000 units/ml vial SQ SCH ×2 (09:12→20:19)
[2020-04-27] MEDS: DOXYCYCLINE 100MG CAPSULE PO SCH ×2 (09:13→17:55)
[2020-04-27 09:14] VITALS: BP 122/68
[2020-04-27 12:10] VITALS: BP 152/80
[2020-04-27 18:15] VITALS: BP 134/53
--- NOTE | 2020-04-27 19:00 | NUR ---
Patient in room ESTEBAN 352. I have received report from JASON Lopez and had the opportunity to ask questions and assume patient care.
--- NOTE | 2020-04-27 23:45 | NUR ---
Upon assessing patient's IV, unable to flush. Dressing removed and 22g left AC discontinued. Cannula intact. Foul odor noted, surrounding site red and puffy. Pt without complaint of pain. Patient refuses new IV at this time and prefers insertion tomorrow morning.
[2020-04-28 00:39] VITALS: BP 131/89
--- NOTE | 2020-04-28 05:00 | NUR ---
Patient is refusing new IV insert at this time. Pt states that she would like to get this done at a later time. Will relay information with oncoming nurse.
--- NOTE | 2020-04-28 06:30 | NUR ---
Problems reprioritized. Patient report given, questions answered & plan of care reviewed with JASON Lopez.
--- NOTE | 2020-04-28 06:32 | NUR ---
Patient in room ESTEBAN 352. I have received report from Archana GOMEZ and had the opportunity to ask questions and assume patient care.
[2020-04-28] MEDS: DOXYCYCLINE 100MG CAPSULE PO SCH ×2 (07:45→18:37)
[2020-04-28] MEDS: pantoprazole 40mg Tablet.DR PO SCH (07:45)
[2020-04-28] MEDS: nystatin 15 GM powder TP SCH ×2 (07:46→20:24)
[2020-04-28] MEDS: mineral oil/petrolatum, white cream 113gm jar TP SCH (07:46)
[2020-04-28] MEDS: amLODIPine 5mg tablet PO SCH (07:46)
[2020-04-28] MEDS: lactobacillus rhamnosus 10,000 MMU CELLS/CAPSULE PO SCH ×2 (07:46→20:22)
[2020-04-28] MEDS: heparin, porcine 5000 units/ml vial SQ SCH ×2 (07:47→20:23)
[2020-04-28 07:53] VITALS: BP 170/92
[2020-04-28 07:54] VITALS: BP 173/87
[2020-04-28] MEDS: docusate sod 100mg capsule PO SCH ×2 (07:56→19:44)
[2020-04-28] MEDS: K and/or MAG REPLACEMENT MC SCH ×2 (08:00→19:44)
[2020-04-28] MEDS: lactose-reduced food (Ensure Enlive) - 237ml bottle PO SCH ×2 (08:06→17:30)
[2020-04-28] MEDS: lisinopril 20mg tablet PO SCH (08:06)
[2020-04-28 11:00] VITALS: BP 142/85
--- NOTE | 2020-04-28 11:00 | NUR ---
PAGER ID: [phone] MESSAGE: Surgical Flpiotr Lopez RN ext [phone]. RE: Lena Pretty. Patient has no IV, refusing reinsertion. Patient drinking good all medications are PO. Can we just leave it off? Also can we renew 1799 order?
[2020-04-28 18:15] VITALS: BP 125/59
--- NOTE | 2020-04-28 18:38 | NUR ---
Problems reprioritized. Patient report given, questions answered & plan of care reviewed with Archana GOMEZ.
--- NOTE | 2020-04-28 19:03 | NUR ---
Patient in room ESTEBAN 352. I have received report from JASON Lopez and had the opportunity to ask questions and assume patient care.
[2020-04-29 00:38] VITALS: BP 141/74
--- NOTE | 2020-04-29 06:35 | NUR ---
Problems reprioritized. Patient report given, questions answered & plan of care reviewed with JASON Alonzo.
--- NOTE | 2020-04-29 06:45 | NUR ---
Patient in room ESTEBAN 352. I have received report from Archana GOMEZ and had the opportunity to ask questions and assume patient care.
[2020-04-29] MEDS: lactose-reduced food (Ensure Enlive) - 237ml bottle PO SCH ×2 (07:30→17:30)
[2020-04-29 07:49] VITALS: BP 142/79
[2020-04-29] MEDS: K and/or MAG REPLACEMENT MC SCH ×2 (08:00→20:00)
[2020-04-29] MEDS: DOXYCYCLINE 100MG CAPSULE PO SCH ×2 (09:37→19:06)
[2020-04-29] MEDS: lactobacillus rhamnosus 10,000 MMU CELLS/CAPSULE PO SCH ×2 (09:38→21:41)
[2020-04-29] MEDS: heparin, porcine 5000 units/ml vial SQ SCH ×2 (09:38→21:39)
[2020-04-29] MEDS: lisinopril 20mg tablet PO SCH (09:38)
[2020-04-29] MEDS: pantoprazole 40mg Tablet.DR PO SCH (09:39)
[2020-04-29] MEDS: amLODIPine 5mg tablet PO SCH (09:39)
[2020-04-29] MEDS: docusate sod 100mg capsule PO SCH ×2 (09:39→09:41)
[2020-04-29] MEDS: mineral oil/petrolatum, white cream 113gm jar TP SCH (09:42)
[2020-04-29] MEDS: nystatin 15 GM powder TP SCH ×2 (09:43→21:39)
[2020-04-29 11:00] VITALS: BP 137/89
--- NOTE | 2020-04-29 18:50 | NUR ---
Problems reprioritized. Patient report given, questions answered & plan of care reviewed with Alejandrina GOMEZ.
--- NOTE | 2020-04-29 18:50 | NUR ---
Patient in room ESTEBAN 352. I have received report from Cheri GOMEZ and had the opportunity to ask questions and assume patient care.
[2020-04-29 19:00] VITALS: BP 120/100
[2020-04-29 19:52] VITALS: BP 120/100
[2020-04-30] VITALS: BP 126/82
--- NOTE | 2020-04-30 06:42 | NUR ---
Problems reprioritized. Patient report given, questions answered & plan of care reviewed with Cheri GOMEZ.
--- NOTE | 2020-04-30 06:52 | NUR ---
Patient in room ESTEBAN 352. I have received report from Alejandrina GOMEZ and had the opportunity to ask questions and assume patient care.
[2020-04-30 08:00] VITALS: BP 115/77
[2020-04-30] MEDS: K and/or MAG REPLACEMENT MC SCH (08:00)
[2020-04-30] MEDS: docusate sod 100mg capsule PO SCH (08:00)
[2020-04-30] MEDS: lactose-reduced food (Ensure Enlive) - 237ml bottle PO SCH (08:03)
[2020-04-30] MEDS: DOXYCYCLINE 100MG CAPSULE PO SCH ×2 (08:04→17:13)
[2020-04-30] MEDS: amLODIPine 5mg tablet PO SCH (08:05)
[2020-04-30] MEDS: pantoprazole 40mg Tablet.DR PO SCH (08:05)
[2020-04-30] MEDS: lisinopril 20mg tablet PO SCH (08:06)
[2020-04-30] MEDS: nystatin 15 GM powder TP SCH (08:06)
[2020-04-30] MEDS: lactobacillus rhamnosus 10,000 MMU CELLS/CAPSULE PO SCH (08:06)
[2020-04-30] MEDS: heparin, porcine 5000 units/ml vial SQ SCH (08:06)
[2020-04-30] MEDS: mineral oil/petrolatum, white cream 113gm jar TP SCH (08:07)
[2020-04-30 11:00] VITALS: BP 142/84
[2020-04-30] MEDS ORDERED: DOXY-224 PO (12:35)
[2020-04-30] MEDS ORDERED: WOOL454C TP (12:35)
[2020-04-30] MEDS ORDERED: NYSPWD TP (12:35)
[2020-04-30] MEDS ORDERED: PANT40TA4 PO (12:35)
--- NOTE | 2020-04-30 14:00 | NUR ---
Received phone call from Dr Neville stating not to discharge/release pt until she meets with case management.Frida menjivar.
--- NOTE | 2020-04-30 17:30 | NUR ---
[facility] Peer Support, Cynthia Gallegos present for d/c instructions and to transport patient to pharmacy and home. Pt stable and appropriate for d/c. All d/c instructions reviewed with Peer Support and patient. Prescriptions escripted to pharmacy. Pt to call and schedule f/u appts with PCP and Dr Krishnamurthy. Appt made with [facility]. Pt to call PCP with any questions/concerns or s/sx of complications or infection or return to the nearest ED. Pt escorted to front lobby by staff member via w/c with personal belongings, as well as picking up ER locked up belongings that are now at the front lobby desk.
== END 2020-04-30 17:20 | disposition home or self-care (01) | DRG 383 ==
LOC: ER 15:24 → ED HOLD 21:22 → SUR 3N 22:47
PROVIDERS: ADMIT Internal Medicine; ATTEND Family Medicine
DX: L03.115 Cellulitis of right lower limb (principal); Z86.73 Personal history of transient ischemic attack (TIA), and cerebral infarction without residual deficits; F20.9 Schizophrenia, unspecified; L03.116 Cellulitis of left lower limb; N18.9 Chronic kidney disease, unspecified; J44.9 Chronic obstructive pulmonary disease, unspecified; F33.2 Major depressive disorder, recurrent severe without psychotic features; G93.41 Metabolic encephalopathy; Z88.8 Allergy status to other drugs, medicaments and biological substances
CPT/HCPCS: 36415; 71045; 80053; 83605; 83735; 85025; 87040; 87081; 94640; 94760; 96365; 97110; 97116; 97161; 97530; 97535; 99285; G0378; J0696; J1644; J3490; J7030; J7614

== ENCOUNTER 2020-05-02 00:47 | Inpatient (IN) | payer MEDICAID ==
[~2020-05-02] VITALS: Ht 165.1 cm; Wt 85.0 kg
[~2020-05-02 00:47] MED LIST changes: +AMLO5TAB16 PO; +DOXY-224 PO; +NYSPWD TP; +PANT40TA4 PO; +WOOL454C TP
[2020-05-02] MEDS ORDERED: ondansetron/PF 4mg/2ml inj IV ONE (01:20)
[2020-05-02] MEDS ORDERED: normal saline 1000ml 1,000 ML IV ONE ×3 (01:20→02:05)
[2020-05-02 01:27] LABS: BASOPHILS # (AUTO) 0.2 X10'3 (0-0.2); BASOPHILS % (AUTO) 1.1 % (0-1); EOSINOPHILS % (AUTO) 0.2 % (0-6); HEMATOCRIT 34.9 % (35.0-45.0); HEMOGLOBIN 11.1 g/dl (12.0-16.0); LYMPHOCYTES # (AUTO) 1.7 X10'3 (1.1-4.8); LYMPHOCYTES % (AUTO) 11.8 % (21-51); MEAN CORPUSCULAR HGB CONC 31.7 g/dL (33.0-36.5); MONOCYTES # (AUTO) 1.4 X10'3 (0-0.9); MONOCYTES % (AUTO) 9.3 % (2-12); NEUTROPHILS # (AUTO) 11.4 X10'3 (1.8-7.7); NEUTROPHILS % (AUTO) 77.6 % (42-75); PLATELET COUNT 473 X10'3 (140-440); RED BLOOD COUNT 4.26 X10'6 (4.20-5.60); RED CELL DISTRIBUTION WIDTH 19.2 % (11.5-14.5); WHITE BLOOD COUNT 14.7 X10'3 (4.5-11.0)
[2020-05-02 01:43] LABS: ALANINE AMINOTRANSFERASE 16 U/L (12-78); ALBUMIN 3.2 G/DL (3.4-5.0); ALBUMIN/GLOBULIN RATIO 0.6 (1.1-1.5); ALKALINE PHOSPHATASE 155 IU/L (46-116); ANION GAP 15 (8-16); ASPARTATE AMINO TRANSFERASE 13 U/L (10-37); BILIRUBIN,TOTAL 0.4 MG/DL (0.1-1.0); BLOOD UREA NITROGEN 35 MG/DL (7-18); CALCIUM 9.7 MG/DL (8.5-10.1); CHLORIDE 99 MMOL/L (99-107); CREATININE 4.99 MG/DL (0.40-0.90); GLUCOSE 108 MG/DL (70-104); POTASSIUM 4.4 MMOL/L (3.5-5.1); SODIUM 140 MMOL/L (135-145); TOTAL CARBON DIOXIDE 25.6 MMOL/L (24-32); TOTAL PROTEIN 8.5 G/DL (6.4-8.2); eGFR 9 ML/MIN
[2020-05-02 01:45] LABS: ANISOCYTOSIS 2+; HYPERSEGMENTED NEUTROPHILS 1+; HYPOCHROMASIA 1+; PLATELET ESTIMATE NORMAL; TOTAL CELLS COUNTED 100
[2020-05-02] MEDS: normal saline 1000ml 1,000 ML IV SCH ×4 (02:05→23:44)
[2020-05-02] MEDS ORDERED: morphine 2 MG/ML inj. syringe IV PRN (03:45)
[2020-05-02] MEDS ORDERED: magnesium hydroxide 30ml (MOM) UD suspension PO PRN (03:45)
[2020-05-02] MEDS ORDERED: magnesium 4gm in 100ml NS 100 ML IV PRN (03:45)
[2020-05-02] MEDS ORDERED: magnesium Cl slow-release 64mg tablet PO PRN (03:45)
[2020-05-02] MEDS ORDERED: acetaminophen 325mg tablet PO PRN (03:45)
[2020-05-02] MEDS ORDERED: potassium Cl 20 mEq SR tablet PO PRN ×2 (03:45)
[2020-05-02] MEDS ORDERED: magnesium 2GM in 50ml NS 50 ML IV PRN (03:45)
[2020-05-02] MEDS ORDERED: mag hydrox/Alum hydrox/simeth 30ml oral suspension PO PRN (03:45)
[2020-05-02] MEDS ORDERED: potassium CL 10mEq/100ml bag 100 ML IV PRN ×2 (03:45)
[2020-05-02] MEDS ORDERED: ondansetron/PF 4mg/2ml inj IV PRN (03:45)
[2020-05-02] MEDS ORDERED: HYDROcodone/acetaminophen 5mg/325mg tablet PO PRN (03:45)
--- NOTE | 2020-05-02 07:12 | NUR ---
I have received report from JASON Merrill in ED and had the opportunity to ask questions and assume patient care.
[2020-05-02] MEDS: amLODIPine 5mg tablet PO SCH (07:57)
[2020-05-02] MEDS: nystatin 15 GM powder TP SCH ×2 (07:57→19:19)
[2020-05-02] MEDS: lisinopril 20mg tablet PO SCH (07:57)
[2020-05-02] MEDS: pantoprazole 40mg Tablet.DR PO SCH (07:57)
[2020-05-02 08:00] VITALS: BP 137/76
[2020-05-02] MEDS: K and/or MAG REPLACEMENT MC SCH ×2 (08:00→19:07)
[2020-05-02 11:59] VITALS: BP 112/79
--- NOTE | 2020-05-02 18:20 | NUR ---
Received report from primary care nurse Edna RN. Assumed patient care. Patient is awake and alert on room air. In no apparent distress. Has completed her dinner. Call light and items of frequent use within reach. Will continue to monitor for changes.
--- NOTE | 2020-05-02 18:26 | NUR ---
Problems reprioritized. Patient report given, questions answered & plan of care reviewed with JASON Morelos.
[2020-05-02 19:30] VITALS: BP 122/69
[2020-05-03] VITALS: BP 116/56
[2020-05-03 00:54] LABS: URINE AMPHETAMINE SCREEN NEGATIVE (Neg); URINE BARBITUATE SCREEN NEGATIVE (Neg); URINE BENZODIAZEPINES SCREEN NEGATIVE (Neg); URINE CANNABINOID SCREEN NEGATIVE (Neg); URINE COCAINE SCREEN NEGATIVE (Neg); URINE METHADONE SCREEN NEGATIVE (Neg); URINE OPIATE SCREEN NEGATIVE (Neg); URINE PHENCYCLIDINE SCREEN NEGATIVE (Neg)
[2020-05-03] MEDS: normal saline 1000ml 1,000 ML IV SCH ×3 (02:05→19:44)
[2020-05-03 04:54] LABS: BASOPHILS % (AUTO) 0.3 % (0-1); EOSINOPHILS # (AUTO) 0.1 X10'3 (0-0.9); HEMATOCRIT 27.7 % (35.0-45.0); HEMOGLOBIN 8.8 g/dl (12.0-16.0); LYMPHOCYTES # (AUTO) 1.5 X10'3 (1.1-4.8); LYMPHOCYTES % (AUTO) 25.6 % (21-51); MEAN CORPUSCULAR HGB CONC 31.6 g/dL (33.0-36.5); MEAN PLATELET VOLUME 8.3 FL (7.4-10.4); MONOCYTES # (AUTO) 0.7 X10'3 (0-0.9); MONOCYTES % (AUTO) 10.9 % (2-12); NEUTROPHILS # (AUTO) 3.7 X10'3 (1.8-7.7); NEUTROPHILS % (AUTO) 61.2 % (42-75); PLATELET COUNT 349 X10'3 (140-440); RED BLOOD COUNT 3.38 X10'6 (4.20-5.60); RED CELL DISTRIBUTION WIDTH 18.9 % (11.5-14.5)
[2020-05-03 05:21] LABS: ALANINE AMINOTRANSFERASE 14 U/L (12-78); ALBUMIN 2.3 G/DL (3.4-5.0); ALBUMIN/GLOBULIN RATIO 0.6 (1.1-1.5); ALKALINE PHOSPHATASE 113 IU/L (46-116); ANION GAP 7 (8-16); ASPARTATE AMINO TRANSFERASE 13 U/L (10-37); BILIRUBIN,TOTAL 0.3 MG/DL (0.1-1.0); BLOOD UREA NITROGEN 24 MG/DL (7-18); BUN/CREATININE RATIO 11.2 (6.6-38.0); CALCIUM 8.3 MG/DL (8.5-10.1); CHLORIDE 111 MMOL/L (99-107); CREATININE 2.14 MG/DL (0.40-0.90); GLUCOSE 82 MG/DL (70-104); MAGNESIUM 2.1 MG/DL (1.5-2.4); POTASSIUM 4.3 MMOL/L (3.5-5.1); SODIUM 143 MMOL/L (135-145); TOTAL PROTEIN 6.3 G/DL (6.4-8.2); eGFR 23 ML/MIN
--- NOTE | 2020-05-03 06:08 | NUR ---
Reported off to Edna RN. Patient is resting with relaxed and unlabored respirations on room air. Call light and items of frequent use within reach.
[2020-05-03] MEDS: pantoprazole 40mg Tablet.DR PO SCH (07:36)
[2020-05-03] MEDS: nystatin 15 GM powder TP SCH ×2 (07:36→19:52)
[2020-05-03] MEDS: lisinopril 20mg tablet PO SCH (07:36)
[2020-05-03] MEDS: amLODIPine 5mg tablet PO SCH (07:36)
[2020-05-03 07:39] VITALS: BP 154/72
[2020-05-03] MEDS: K and/or MAG REPLACEMENT MC SCH ×2 (08:00→19:55)
[2020-05-03 11:00] VITALS: BP 136/51
[2020-05-03 19:00] VITALS: BP 116/65
[2020-05-03] MEDS: mineral oil/petrolatum, white cream 113gm jar TP SCH (19:53)
[2020-05-04] VITALS: BP 157/81
[2020-05-04] MEDS: normal saline 1000ml 1,000 ML IV SCH ×2 (00:54→00:55)
[2020-05-04 05:44] LABS: BASOPHILS % (AUTO) 0.5 % (0-1); EOSINOPHILS # (AUTO) 0.1 X10'3 (0-0.9); EOSINOPHILS % (AUTO) 2.2 % (0-6); HEMATOCRIT 30.5 % (35.0-45.0); HEMOGLOBIN 9.8 g/dl (12.0-16.0); LYMPHOCYTES # (AUTO) 1.5 X10'3 (1.1-4.8); LYMPHOCYTES % (AUTO) 28.8 % (21-51); MEAN CORPUSCULAR HEMOGLOBIN 26.7 PG (27.0-31.0); MEAN CORPUSCULAR HGB CONC 32.3 g/dL (33.0-36.5); MEAN CORPUSCULAR VOLUME 82.7 FL (78-98); MEAN PLATELET VOLUME 8.3 FL (7.4-10.4); MONOCYTES # (AUTO) 0.5 X10'3 (0-0.9); MONOCYTES % (AUTO) 10.1 % (2-12); NEUTROPHILS % (AUTO) 58.4 % (42-75); PLATELET COUNT 378 X10'3 (140-440); RED BLOOD COUNT 3.69 X10'6 (4.20-5.60); RED CELL DISTRIBUTION WIDTH 18.7 % (11.5-14.5); WHITE BLOOD COUNT 5.1 X10'3 (4.5-11.0)
[2020-05-04 06:00] LABS: ALANINE AMINOTRANSFERASE 15 U/L (12-78); ALBUMIN 2.6 G/DL (3.4-5.0); ALBUMIN/GLOBULIN RATIO 0.6 (1.1-1.5); ALKALINE PHOSPHATASE 121 IU/L (46-116); ANION GAP 7 (8-16); ASPARTATE AMINO TRANSFERASE 14 U/L (10-37); BILIRUBIN,TOTAL 0.2 MG/DL (0.1-1.0); BLOOD UREA NITROGEN 17 MG/DL (7-18); BUN/CREATININE RATIO 11.8 (6.6-38.0); CALCIUM 8.8 MG/DL (8.5-10.1); CHLORIDE 109 MMOL/L (99-107); CREATININE 1.44 MG/DL (0.40-0.90); GLUCOSE 86 MG/DL (70-104); MAGNESIUM 1.9 MG/DL (1.5-2.4); POTASSIUM 4.3 MMOL/L (3.5-5.1); SODIUM 141 MMOL/L (135-145); TOTAL CARBON DIOXIDE 25.4 MMOL/L (24-32); eGFR 37 ML/MIN
--- NOTE | 2020-05-04 06:20 | NUR ---
Reported off to Cynthia RN. Patient is resting with relaxed and unlabored respirations on room air. Call light and items of frequent use within reach.
--- NOTE | 2020-05-04 06:35 | NUR ---
Patient in room ESTEBAN 352. I have received report from JASON Morelos and had the opportunity to ask questions and assume patient care.
[2020-05-04 06:38] LABS: PLATELET ESTIMATE NORMAL
[2020-05-04 06:39] LABS: ANISOCYTOSIS 2+; HYPOCHROMASIA 1+; POLYCHROMASIA 1+; ROULEAUX 1+
[2020-05-04 07:00] VITALS: BP 179/89
[2020-05-04] MEDS: K and/or MAG REPLACEMENT MC SCH (07:19)
[2020-05-04] MEDS: lisinopril 20mg tablet PO SCH (10:27)
[2020-05-04] MEDS: amLODIPine 5mg tablet PO SCH (10:27)
[2020-05-04] MEDS: mineral oil/petrolatum, white cream 113gm jar TP SCH (10:27)
[2020-05-04] MEDS: pantoprazole 40mg Tablet.DR PO SCH (10:27)
[2020-05-04] MEDS: nystatin 15 GM powder TP SCH (10:27)
[2020-05-04 11:00] VITALS: BP 182/82
--- NOTE | 2020-05-04 13:25 | NUR ---
DC instructions provided to pt. IV DC'd, tip intact. All belongings sent w/pt. WC to front lobby.
== END 2020-05-04 13:43 | disposition home or self-care (01) | DRG 469 ==
LOC: ER 00:47 → ED HOLD 03:44 → SUR 3N 07:25
PROVIDERS: ADMIT Family Medicine; ATTEND Family Medicine
DX: N17.0 Acute kidney failure with tubular necrosis (principal); F20.9 Schizophrenia, unspecified; G93.41 Metabolic encephalopathy; I12.9 Hypertensive chronic kidney disease with stage 1 through stage 4 chronic kidney disease, or unspecified chronic kidney disease; J44.9 Chronic obstructive pulmonary disease, unspecified; N18.9 Chronic kidney disease, unspecified; Z86.73 Personal history of transient ischemic attack (TIA), and cerebral infarction without residual deficits; Z87.891 Personal history of nicotine dependence
CPT/HCPCS: 36415; 71045; 80053; 80305; 83605; 83735; 85025; 87040; 87081; 93005; 97161; 97530; 97535; 99285; G0378; J2405; J7030

== ENCOUNTER 2020-05-15 11:15 | Day surgery (SDC) | payer MEDICAID ==
[2020-05-15] MEDS ORDERED: LIDOcaine 2% 5ml jelly ONE (14:08)
[2020-05-15] MEDS ORDERED: gentamicin 0.1% topical ointment 15gm TP ONE (14:24)
== END 2020-05-22 15:18 | disposition home or self-care (01) ==
LOC: WOUND CARE 11:15
PROVIDERS: ATTEND Nurse Practitioner
DX: L97.821 Non-pressure chronic ulcer of other part of left lower leg limited to breakdown of skin (principal); L97.811 Non-pressure chronic ulcer of other part of right lower leg limited to breakdown of skin; I12.9 Hypertensive chronic kidney disease with stage 1 through stage 4 chronic kidney disease, or unspecified chronic kidney disease; N18.9 Chronic kidney disease, unspecified; J44.9 Chronic obstructive pulmonary disease, unspecified; K21.9 Gastro-esophageal reflux disease without esophagitis; G93.41 Metabolic encephalopathy; F20.9 Schizophrenia, unspecified; F33.2 Major depressive disorder, recurrent severe without psychotic features; E87.5 Hyperkalemia; F17.210 Nicotine dependence, cigarettes, uncomplicated; Z85.828 Personal history of other malignant neoplasm of skin; Z86.14 Personal history of Methicillin resistant Staphylococcus aureus infection; Z86.73 Personal history of transient ischemic attack (TIA), and cerebral infarction without residual deficits; Z79.899 Other long term (current) drug therapy
CPT/HCPCS: 29580; 87070; 87075; 87077; 87102; 87186; 97597

== ENCOUNTER 2020-05-29 13:00 | Outpatient (CLI) | payer MEDICAID ==
[2020-05-29] MEDS ORDERED: gentamicin 0.1% topical ointment 15gm TP ONE (13:55)
== END 2020-05-29 14:33 | disposition home or self-care (01) ==
LOC: EDSTATUS 13:00 → WOUND CARE 13:00
PROVIDERS: ATTEND Nurse Practitioner
DX: L97.821 Non-pressure chronic ulcer of other part of left lower leg limited to breakdown of skin (principal); L97.811 Non-pressure chronic ulcer of other part of right lower leg limited to breakdown of skin; L97.521 Non-pressure chronic ulcer of other part of left foot limited to breakdown of skin; L97.511 Non-pressure chronic ulcer of other part of right foot limited to breakdown of skin; I12.9 Hypertensive chronic kidney disease with stage 1 through stage 4 chronic kidney disease, or unspecified chronic kidney disease; N18.9 Chronic kidney disease, unspecified; J44.9 Chronic obstructive pulmonary disease, unspecified; K21.9 Gastro-esophageal reflux disease without esophagitis; G93.41 Metabolic encephalopathy; F20.9 Schizophrenia, unspecified; F33.2 Major depressive disorder, recurrent severe without psychotic features; E87.5 Hyperkalemia; F17.210 Nicotine dependence, cigarettes, uncomplicated; Z85.828 Personal history of other malignant neoplasm of skin; Z86.14 Personal history of Methicillin resistant Staphylococcus aureus infection; Z86.73 Personal history of transient ischemic attack (TIA), and cerebral infarction without residual deficits; Z79.899 Other long term (current) drug therapy
CPT/HCPCS: 29580; 29581

== ENCOUNTER 2020-06-06 10:53 | Outpatient (CLI) | payer MEDICAID ==
[~2020-06-06 10:53] MED LIST changes: -PANT40TA4 PO; +PANT40TA54 PO
[2020-06-06] MEDS ORDERED: LIDOcaine 2% 5ml jelly ONE (12:01)
== END 2020-06-06 13:33 | disposition home or self-care (01) ==
LOC: WOUND CARE 10:53
PROVIDERS: ATTEND Nurse Practitioner
DX: I83.028 Varicose veins of left lower extremity with ulcer other part of lower leg (principal); L97.821 Non-pressure chronic ulcer of other part of left lower leg limited to breakdown of skin; I83.018 Varicose veins of right lower extremity with ulcer other part of lower leg; L97.811 Non-pressure chronic ulcer of other part of right lower leg limited to breakdown of skin; I83.015 Varicose veins of right lower extremity with ulcer other part of foot; L97.511 Non-pressure chronic ulcer of other part of right foot limited to breakdown of skin; I83.025 Varicose veins of left lower extremity with ulcer other part of foot; L97.521 Non-pressure chronic ulcer of other part of left foot limited to breakdown of skin; L89.892 Pressure ulcer of other site, stage 2; I13.0 Hypertensive heart and chronic kidney disease with heart failure and stage 1 through stage 4 chronic kidney disease, or unspecified chronic kidney disease; N18.9 Chronic kidney disease, unspecified; I50.33 Acute on chronic diastolic (congestive) heart failure; J44.9 Chronic obstructive pulmonary disease, unspecified; K21.9 Gastro-esophageal reflux disease without esophagitis; G93.41 Metabolic encephalopathy; E87.5 Hyperkalemia; F20.9 Schizophrenia, unspecified; F33.2 Major depressive disorder, recurrent severe without psychotic features; F17.210 Nicotine dependence, cigarettes, uncomplicated; Z85.828 Personal history of other malignant neoplasm of skin; Z86.14 Personal history of Methicillin resistant Staphylococcus aureus infection; Z86.73 Personal history of transient ischemic attack (TIA), and cerebral infarction without residual deficits; Z79.899 Other long term (current) drug therapy
CPT/HCPCS: G0463

== ENCOUNTER 2020-06-08 12:30 | Day surgery (SDC) | payer MEDICAID ==
[2020-06-08] MEDS ORDERED: LIDOcaine 2% 5ml jelly ONE (13:04)
[2020-06-08] MEDS ORDERED: gentamicin 0.1% topical ointment 15gm TP ONE (13:35)
== END 2020-06-08 14:10 | disposition home or self-care (01) ==
LOC: WOUND CARE 12:30
PROVIDERS: ATTEND Nurse Practitioner
DX: L97.821 Non-pressure chronic ulcer of other part of left lower leg limited to breakdown of skin (principal); L97.811 Non-pressure chronic ulcer of other part of right lower leg limited to breakdown of skin; L97.521 Non-pressure chronic ulcer of other part of left foot limited to breakdown of skin; L97.511 Non-pressure chronic ulcer of other part of right foot limited to breakdown of skin; I12.9 Hypertensive chronic kidney disease with stage 1 through stage 4 chronic kidney disease, or unspecified chronic kidney disease; N18.9 Chronic kidney disease, unspecified; J44.9 Chronic obstructive pulmonary disease, unspecified; K21.9 Gastro-esophageal reflux disease without esophagitis; G93.41 Metabolic encephalopathy; F20.9 Schizophrenia, unspecified; F33.2 Major depressive disorder, recurrent severe without psychotic features; E87.5 Hyperkalemia; F17.210 Nicotine dependence, cigarettes, uncomplicated; Z85.828 Personal history of other malignant neoplasm of skin; Z86.14 Personal history of Methicillin resistant Staphylococcus aureus infection; Z86.73 Personal history of transient ischemic attack (TIA), and cerebral infarction without residual deficits; Z79.899 Other long term (current) drug therapy
CPT/HCPCS: 97597; 97598

== ENCOUNTER 2020-06-14 11:35 | Day surgery (SDC) | payer MEDICAID ==
[2020-06-14] MEDS ORDERED: LIDOcaine 2% 5ml jelly ONE (12:48)
[2020-06-14] MEDS ORDERED: gentamicin 0.1% topical ointment 15gm TP ONE (13:58)
== END 2020-06-14 14:30 | disposition home or self-care (01) ==
LOC: WOUND CARE 11:35
PROVIDERS: ATTEND Nurse Practitioner
DX: L97.521 Non-pressure chronic ulcer of other part of left foot limited to breakdown of skin (principal); L97.511 Non-pressure chronic ulcer of other part of right foot limited to breakdown of skin; L97.821 Non-pressure chronic ulcer of other part of left lower leg limited to breakdown of skin; L97.811 Non-pressure chronic ulcer of other part of right lower leg limited to breakdown of skin; I12.9 Hypertensive chronic kidney disease with stage 1 through stage 4 chronic kidney disease, or unspecified chronic kidney disease; N18.9 Chronic kidney disease, unspecified; J44.9 Chronic obstructive pulmonary disease, unspecified; K21.9 Gastro-esophageal reflux disease without esophagitis; G93.41 Metabolic encephalopathy; F20.9 Schizophrenia, unspecified; F33.2 Major depressive disorder, recurrent severe without psychotic features; E87.5 Hyperkalemia; F17.210 Nicotine dependence, cigarettes, uncomplicated; Z85.828 Personal history of other malignant neoplasm of skin; Z86.14 Personal history of Methicillin resistant Staphylococcus aureus infection; Z86.73 Personal history of transient ischemic attack (TIA), and cerebral infarction without residual deficits; Z79.899 Other long term (current) drug therapy
CPT/HCPCS: 29580; 97597; 97598

== ENCOUNTER 2020-07-11 12:52 | Inpatient (IN) | payer MEDICAID ==
[~2020-07-11] VITALS: Ht 165.1 cm; Wt 104.6 kg
[~2020-07-11 12:52] MED LIST changes: -LISI-600 PO; +atropine 0.1mg/ml 10ml syringe ONE; +etomidate 2mg/ml inj. ONE; +rocuronium 10mg/ml inj IV ONE
[2020-07-11] MEDS ORDERED: albuterol 2.5 MG/3 ML nebule CONTNEB PRN (13:25)
[2020-07-11] MEDS ORDERED: methylPREDNISolone sod succ 125mg/2ml vial IV ONE (13:25)
[2020-07-11] MEDS ORDERED: normal saline 1000ML IV soln IVB ONE (13:25)
[2020-07-11 14:10] LABS: BASOPHILS % (AUTO) 0.3 % (0-1); EOSINOPHILS # (AUTO) 0.1 X10'3 (0-0.9); EOSINOPHILS % (AUTO) 0.7 % (0-6); HEMATOCRIT 29.8 % (35.0-45.0); HEMOGLOBIN 9.2 g/dl (12.0-16.0); LYMPHOCYTES % (AUTO) 11.9 % (21-51); MEAN CORPUSCULAR HEMOGLOBIN 24.9 PG (27.0-31.0); MEAN CORPUSCULAR VOLUME 80.3 FL (78-98); MEAN PLATELET VOLUME 7.6 FL (7.4-10.4); MONOCYTES # (AUTO) 0.8 X10'3 (0-0.9); MONOCYTES % (AUTO) 9.4 % (2-12); NEUTROPHILS # (AUTO) 6.4 X10'3 (1.8-7.7); NEUTROPHILS % (AUTO) 77.7 % (42-75); PLATELET COUNT 372 X10'3 (140-440); RED BLOOD COUNT 3.71 X10'6 (4.20-5.60); RED CELL DISTRIBUTION WIDTH 16.5 % (11.5-14.5); WHITE BLOOD COUNT 8.2 X10'3 (4.5-11.0)
[2020-07-11] MEDS ORDERED: azithromycin/NS 500mg/250ml 250 ML IV ONE ×2 (14:35→17:20)
[2020-07-11] MEDS ORDERED: CefTRIAXone 2gm/D5W 50ml BAG 50 ML IV ONE (14:35)
[2020-07-11 14:44] LABS: ALANINE AMINOTRANSFERASE 25 U/L (12-78); ALBUMIN/GLOBULIN RATIO 0.6 (1.1-1.5); ALKALINE PHOSPHATASE 168 IU/L (46-116); ANION GAP 4 (8-16); ASPARTATE AMINO TRANSFERASE 17 U/L (10-37); BILIRUBIN,TOTAL 0.2 MG/DL (0.1-1.0); BLOOD UREA NITROGEN 14 MG/DL (7-18); BUN/CREATININE RATIO 14.6 (6.6-38.0); CALCIUM 8.3 MG/DL (8.5-10.1); CHLORIDE 109 MMOL/L (99-107); CREATININE 0.96 MG/DL (0.40-0.90); GLUCOSE 108 MG/DL (70-104); SODIUM 143 MMOL/L (135-145); TOTAL CARBON DIOXIDE 29.9 MMOL/L (24-32); TOTAL PROTEIN 7.7 G/DL (6.4-8.2); eGFR 58 ML/MIN
[2020-07-11] MEDS ORDERED: PANT-47 PO (15:31)
[2020-07-11] MEDS ORDERED: NYSPWD TP (15:31)
[2020-07-11] MEDS ORDERED: BUDE0.5A3 NEB (15:31)
[2020-07-11] MEDS ORDERED: ATR0.5NEB NEB (15:31)
[2020-07-11] MEDS ORDERED: LISI-600 PO (15:31)
[2020-07-11] MEDS ORDERED: magnesium 4gm in 100ml NS 100 ML IV PRN (17:05)
[2020-07-11] MEDS ORDERED: magnesium Cl slow-release 64mg tablet PO PRN (17:05)
[2020-07-11] MEDS ORDERED: acetaminophen 650mg rectal suppository RC PRN (17:05)
[2020-07-11] MEDS ORDERED: acetaminophen 325mg tablet PO PRN ×3 (17:05→17:50)
[2020-07-11] MEDS ORDERED: magnesium 2GM in 50ml NS 50 ML IV PRN (17:05)
[2020-07-11] MEDS ORDERED: potassium CL 10mEq/100ml bag 100 ML IV PRN ×3 (17:05→17:50)
[2020-07-11] MEDS ORDERED: ondansetron/PF 4mg/2ml inj IV PRN ×2 (17:05→17:50)
[2020-07-11] MEDS ORDERED: potassium Cl 20 mEq SR tablet PO PRN ×4 (17:05→17:50)
[2020-07-11] MEDS ORDERED: LORazepam 2 mg/ml vial IV ONE (17:15)
[2020-07-11] MEDS ORDERED: LORazepam 2 mg/ml vial ONE (17:18)
[2020-07-11] MEDS: CefTRIAXone/D5W-Rocephin 1gm 50 ML IV SCH (17:20)
--- NOTE | 2020-07-11 17:22 | NUR ---
Pt became aggitated and tried to get up. PA came to bedside to evaluated patient. RT called to place pt on bipap. Dr Lopez at bedside, to move pt to another room to intubate.
[2020-07-11] MEDS ORDERED: HYDROcodone/acetaminophen 5mg/325mg tablet PO PRN (17:50)
[2020-07-11] MEDS ORDERED: HYDROcodone/acetaminophen 10/325mg tab PO PRN (17:50)
[2020-07-11] MEDS ORDERED: rocuronium 10mg/ml inj IV ONE (17:50)
[2020-07-11] MEDS ORDERED: sodium phosphate inj. 15 MMOL in dextrose 5%-water 250 ML IV PRN (17:50)
[2020-07-11] MEDS ORDERED: etomidate 2mg/ml inj. IV ONE (17:50)
[2020-07-11] MEDS ORDERED: Neutra Phos packet PO PRN (17:50)
[2020-07-11] MEDS ORDERED: magnesium hydroxide 30ml (MOM) UD suspension PO PRN (17:50)
[2020-07-11] MEDS ORDERED: sodium phosphate inj. 30 MMOL in dextrose 5%-water 250 ML IV PRN (17:50)
[2020-07-11] MEDS ORDERED: LIDOcaine 2% 10ml TOPICAL JELLY (Urojet) TP ONE (17:50)
[2020-07-11] MEDS: midazolam 100mg in NS 100ml 100 ML IV PRN (17:59)
[2020-07-11] MEDS: FENTANYL-0.9 % NACL/PF 100 ML IV PRN (18:05)
[2020-07-11] MEDS ORDERED: nitroGLYCERIN-Tridil 50MG/D5W 250 ML IV PRN (18:20)
[2020-07-11] MEDS ORDERED: furosemide 10 MG/1 ML 10ml inj IV ONE (18:20)
[2020-07-11 18:50] LABS: CLARITY,URINE CLEAR (Clear); COLOR,URINE YELLOW (Yellow); GLUCOSE, URINE 250 mg/dl (Neg); KETONES,URINE NEGATIVE (Neg); LEUKOCYTE ESTERASE ,URINE NEGATIVE (Neg); NITRITES, URINE NEGATIVE (Neg); OCCULT BLOOD,URINE TRACE-INTACT (Neg); PH,URINE 6.5 (4.8-8.0); PROTEIN,URINE 100 mg/dl (Neg); UROBILINOGEN,URINE 0.2 E.U/dL (0.2-1.0)
[2020-07-11 19:06] LABS: UA COLLECTION TYPE FOLEY CATH
--- NOTE | 2020-07-11 19:15 | NUR ---
RATE CHANGED OF VERSED TO 2 MG/HR PER PROTOCOL
[2020-07-11 19:22] LABS: BACTERIA,URINE NONE SEEN /HPF (Neg); RBC,URINE 0-2 /HPF (0-2); SQUAMOUS EPITHELIAL CELL,UR FEW /LPF (FEW); WBC,URINE NONE SEEN /HPF (0-4)
--- NOTE | 2020-07-11 19:45 | NUR ---
RATE CHANGED TO 3MG/HR OF VERSED PER PROTOCOL
[2020-07-11] MEDS ORDERED: furosemide 10 MG/1 ML 10ml inj IV SCH (20:00)
[2020-07-11] MEDS: K and/or MAG REPLACEMENT MC SCH (20:00)
[2020-07-11 20:15] VITALS: BP 143/69
--- NOTE | 2020-07-11 20:15 | NUR ---
Patient placed in room ICU 2043 transferred from ER via [place] by CLOTHES SEPARATOR. I have received report from JASON Gonzalez and had the opportunity to ask questions and assume patient care.
[2020-07-11 20:26] LABS: TRIGLYCERIDES 34 MG/DL (20-135)
[2020-07-11 21:00] VITALS: BP 118/74
[2020-07-11 21:00] LABS: ABG HCO3 27.7 mmol/L (22.0-26.0); ABG OXYGEN SATURATION 88.4 % (94-97); ABG PCO2 (T) 66.4 mmHg (32.0-45.0); ABG PO2 (T) 53.3 mmHg (75.0-100.0); ALLEN'S TEST POSITIVE; FCOHb 0.4 % (0.0-3.9); FMetHb 0.2 % (0.0-1.5); FO2Hb 87.9 % (94-97); PATIENT TEMPERATURE 35.9; PEEP 10 cm H2O; RESPIRATORY RATE 20 b/min; TIDAL VOLUME 400 mL; TOTAL HEMOGLOBIN 10.2 G/dl (12.0-16.0)
[2020-07-11] MEDS: furosemide 40mg/4ml inj IV SCH (21:29)
[2020-07-11] MEDS: methylPREDNISolone sod succ 125mg/2ml vial IV SCH (21:29)
[2020-07-11 22:00] VITALS: BP 130/71
[2020-07-11] MEDS: nystatin 15 GM powder TP SCH (22:42)
[2020-07-11] MEDS: heparin, porcine 5000 units/ml vial SQ SCH (22:42)
[2020-07-11 23:00] VITALS: BP 142/82
[2020-07-12] VITALS (24 sets, daily range): BP systolic 134–169; BP diastolic 67–89
[2020-07-12 02:05] LABS: BASOPHILS # (AUTO) 0.1 X10'3 (0-0.2); BASOPHILS % (AUTO) 0.8 % (0-1); EOSINOPHILS % (AUTO) 0 % (0-6); HEMATOCRIT 28.8 % (35.0-45.0); HEMOGLOBIN 8.9 g/dl (12.0-16.0); LYMPHOCYTES # (AUTO) 0.4 X10'3 (1.1-4.8); LYMPHOCYTES % (AUTO) 4.5 % (21-51); MEAN CORPUSCULAR VOLUME 80.7 FL (78-98); MEAN PLATELET VOLUME 7.8 FL (7.4-10.4); MONOCYTES # (AUTO) 0.1 X10'3 (0-0.9); MONOCYTES % (AUTO) 0.9 % (2-12); NEUTROPHILS # (AUTO) 8.3 X10'3 (1.8-7.7); NEUTROPHILS % (AUTO) 93.8 % (42-75); PLATELET COUNT 321 X10'3 (140-440); RED BLOOD COUNT 3.57 X10'6 (4.20-5.60); RED CELL DISTRIBUTION WIDTH 16.2 % (11.5-14.5); WHITE BLOOD COUNT 8.9 X10'3 (4.5-11.0)
[2020-07-12 02:17] LABS: ALANINE AMINOTRANSFERASE 58 U/L (12-78); ALBUMIN 2.8 G/DL (3.4-5.0); ALBUMIN/GLOBULIN RATIO 0.6 (1.1-1.5); ALKALINE PHOSPHATASE 174 IU/L (46-116); ANION GAP 3 (8-16); ASPARTATE AMINO TRANSFERASE 58 U/L (10-37); BILIRUBIN,TOTAL 0.4 MG/DL (0.1-1.0); BLOOD UREA NITROGEN 17 MG/DL (7-18); BUN/CREATININE RATIO 15.3 (6.6-38.0); CALCIUM 8.1 MG/DL (8.5-10.1); CHLORIDE 108 MMOL/L (99-107); CREATININE 1.11 MG/DL (0.40-0.90); GLUCOSE 159 MG/DL (70-104); POTASSIUM 3.7 MMOL/L (3.5-5.1); SODIUM 143 MMOL/L (135-145); TOTAL CARBON DIOXIDE 32.1 MMOL/L (24-32); TOTAL PROTEIN 7.3 G/DL (6.4-8.2); eGFR 49 ML/MIN
[2020-07-12 02:20] LABS: MAGNESIUM 1.9 MG/DL (1.5-2.4); PHOSPHORUS 2.8 MG/DL (2.3-4.5); TRIGLYCERIDES 37 MG/DL (20-135)
[2020-07-12] MEDS: methylPREDNISolone sod succ 125mg/2ml vial IV SCH ×4 (02:33→20:02)
[2020-07-12] MEDS: levalbuterol 0.63mg/3ml nebule IH SCH ×4 (03:06→20:53)
[2020-07-12 03:31] LABS: ABG BASE EXCESS 5.3 mmol/L (-2.0-2.0); ABG HCO3 30.2 mmol/L (22.0-26.0); ABG OXYGEN SATURATION 96.2 % (94-97); ABG PCO2 (T) 45.3 mmHg (32.0-45.0); ABG PO2 (T) 72.7 mmHg (75.0-100.0); ALLEN'S TEST POSITIVE; FCOHb 0.3 % (0.0-3.9); FO2Hb 95.9 % (94-97); PATIENT TEMPERATURE 36.6; PEEP 10 cm H2O; RESPIRATORY RATE 24 b/min; TIDAL VOLUME 400 mL; TOTAL HEMOGLOBIN 9.9 G/dl (12.0-16.0)
--- NOTE | 2020-07-12 06:24 | NUR ---
Problems reprioritized. Patient report given, questions answered & plan of care reviewed with JASON Mcdermott.
[2020-07-12] MEDS ORDERED: pantoprazole 40mg Tablet.DR PO SCH (08:00)
[2020-07-12] MEDS: midazolam 100mg in NS 100ml 100 ML IV PRN (08:06)
[2020-07-12] MEDS: nystatin 15 GM powder TP SCH ×2 (08:06→20:02)
[2020-07-12] MEDS: furosemide 40mg/4ml inj IV SCH ×2 (08:11→20:02)
[2020-07-12] MEDS: CefTRIAXone/D5W-Rocephin 1gm 50 ML IV SCH (08:11)
[2020-07-12] MEDS: pantoprazole 40 MG vial IV SCH (08:12)
[2020-07-12] MEDS: azithromycin/NS 500mg/250ml 250 ML IV SCH (08:13)
[2020-07-12] MEDS: heparin, porcine 5000 units/ml vial SQ SCH ×2 (08:13→20:03)
[2020-07-12] MEDS: K and/or MAG REPLACEMENT MC SCH ×2 (08:28→20:00)
[2020-07-12] MEDS: lisinopril 20mg tablet PO SCH (08:29)
[2020-07-12 09:41] LABS: ABG BASE EXCESS -2.4 mmol/L (-2.0-2.0); ABG HCO3 31.3 mmol/L (22.0-26.0); ABG OXYGEN SATURATION 97.3 % (94-97); ABG PCO2 (T) 127.8 mmHg (32.0-45.0); ABG PO2 (T) 132.2 mmHg (75.0-100.0); ALLEN'S TEST POSITIVE; FCOHb 1.3 % (0.0-3.9); FMetHb 0.2 % (0.0-1.5); FO2Hb 95.8 % (94-97); TOTAL HEMOGLOBIN 11.2 G/dl (12.0-16.0)
--- NOTE | 2020-07-12 11:26 | NUR ---
TF Consult: Pt intubated DX COPD exacerbation, PNA, and sepsis per MD note. Hx COPD, CKD, HTN, and CVA w/ bilateral weakness per EMR. Noted pt has wounds to toes on bilateral feet w/ R more than L per and hx chronic LE cellulitis per EMR. OG in place w/ MAP 110 this AM and TF to start today per MD. Recs below; will monitor for EN tolerance and additional protein needs this admit. Rec: 1. OGTF per MD using Vital High Protein at 75ml/hr goal; to provide 1800ml fluid, 1800kcals, ml free water, and g protein. 2. water flush 200ml Q4 3. PALB Q /; daily wts 4. routine bowel care 5. monitor for EN tolerance and additional protein needs; IF significant wounds consider Jose supplementation pending WOC Addendum: 07/12/20 at [address] Amended: Links added. Addendum: 07/12/20 at [address] CORRECTION* Rec: 1. OGTF per MD using Vital High Protein at 75ml/hr goal; to provide 1800ml fluid, 1800kcals, 1512ml free water, and 158g protein.
--- NOTE | 2020-07-12 18:30 | NUR ---
Patient in room ICU 2043. I have received report from JASON Mcdermott and had the opportunity to ask questions and assume patient care.
[2020-07-12] MEDS: mineral oil/petrolatum, white cream 113gm jar TP SCH (18:48)
[2020-07-12] MEDS: lactobacillus rhamnosus 10,000 MMU CELLS/CAPSULE PO SCH (20:02)
[2020-07-13] VITALS (23 sets, daily range): BP systolic 142–198; BP diastolic 73–105
[2020-07-13 02:45] LABS: ABG BASE EXCESS 4.1 mmol/L (-2.0-2.0); ABG HCO3 28.7 mmol/L (22.0-26.0); ABG OXYGEN SATURATION 93.3 % (94-97); ABG PO2 (T) 65.9 mmHg (75.0-100.0); FCOHb 0.3 % (0.0-3.9); PATIENT TEMPERATURE 36.4; PEEP 10 cm H2O; RESPIRATORY RATE 24 b/min; TIDAL VOLUME 400 mL
[2020-07-13] MEDS: methylPREDNISolone sod succ 125mg/2ml vial IV SCH ×4 (02:55→19:56)
[2020-07-13] MEDS: midazolam 100mg in NS 100ml 100 ML IV PRN (02:56)
[2020-07-13 03:00] LABS: BASOPHILS % (AUTO) 0 % (0-1); EOSINOPHILS % (AUTO) 0 % (0-6); HEMATOCRIT 29.7 % (35.0-45.0); HEMOGLOBIN 8.9 g/dl (12.0-16.0); LYMPHOCYTES # (AUTO) 0.4 X10'3 (1.1-4.8); LYMPHOCYTES % (AUTO) 3.3 % (21-51); MEAN CORPUSCULAR HEMOGLOBIN 23.8 PG (27.0-31.0); MEAN CORPUSCULAR HGB CONC 30.1 g/dL (33.0-36.5); MEAN CORPUSCULAR VOLUME 78.9 FL (78-98); MEAN PLATELET VOLUME 8.2 FL (7.4-10.4); MONOCYTES # (AUTO) 0.3 X10'3 (0-0.9); NEUTROPHILS # (AUTO) 10.3 X10'3 (1.8-7.7); NEUTROPHILS % (AUTO) 93.7 % (42-75); PLATELET COUNT 362 X10'3 (140-440); RED BLOOD COUNT 3.76 X10'6 (4.20-5.60); RED CELL DISTRIBUTION WIDTH 16.8 % (11.5-14.5)
[2020-07-13] MEDS: levalbuterol 0.63mg/3ml nebule IH SCH ×5 (03:06→20:38)
[2020-07-13 03:09] LABS: ALANINE AMINOTRANSFERASE 43 U/L (12-78); ALBUMIN 2.7 G/DL (3.4-5.0); ALBUMIN/GLOBULIN RATIO 0.6 (1.1-1.5); ALKALINE PHOSPHATASE 150 IU/L (46-116); ANION GAP 8 (8-16); ASPARTATE AMINO TRANSFERASE 19 U/L (10-37); BILIRUBIN,TOTAL 0.2 MG/DL (0.1-1.0); BLOOD UREA NITROGEN 36 MG/DL (7-18); BUN/CREATININE RATIO 26.9 (6.6-38.0); CALCIUM 8.6 MG/DL (8.5-10.1); CHLORIDE 104 MMOL/L (99-107); CREATININE 1.34 MG/DL (0.40-0.90); GLUCOSE 165 MG/DL (70-104); MAGNESIUM 2.3 MG/DL (1.5-2.4); PHOSPHORUS 3.8 MG/DL (2.3-4.5); POTASSIUM 3.7 MMOL/L (3.5-5.1); PREALBUMIN 20.6 MG/DL (19-36); SODIUM 145 MMOL/L (135-145); TOTAL CARBON DIOXIDE 32.8 MMOL/L (24-32); TOTAL PROTEIN 7.2 G/DL (6.4-8.2); eGFR 40 ML/MIN
--- NOTE | 2020-07-13 06:11 | NUR ---
Problems reprioritized. Patient report given, questions answered & plan of care reviewed with JASON Mcdermott.
[2020-07-13] MEDS: furosemide 40mg/4ml inj IV SCH (07:30)
[2020-07-13] MEDS: heparin, porcine 5000 units/ml vial SQ SCH ×2 (07:30→19:57)
[2020-07-13] MEDS: pantoprazole 40 MG vial IV SCH (07:30)
[2020-07-13] MEDS: nystatin 15 GM powder TP SCH ×2 (07:31→19:57)
[2020-07-13] MEDS: lisinopril 20mg tablet PO SCH (07:31)
[2020-07-13] MEDS: lactobacillus rhamnosus 10,000 MMU CELLS/CAPSULE PO SCH ×2 (07:31→19:57)
[2020-07-13] MEDS: azithromycin/NS 500mg/250ml 250 ML IV SCH (07:32)
[2020-07-13] MEDS: CefTRIAXone/D5W-Rocephin 1gm 50 ML IV SCH (07:32)
[2020-07-13] MEDS: K and/or MAG REPLACEMENT MC SCH ×2 (08:34→20:00)
[2020-07-13] MEDS ORDERED: FLU VACC QS2020-21(6MOS UP)/PF 60 MCG/0.5 ML SYRINGE IMVAC ONE (10:00)
[2020-07-13] MEDS: mineral oil/petrolatum, white cream 113gm jar TP SCH (10:14)
[2020-07-13] MEDS: dexmedetomidin/NS 400mcg/100ml 100 ML IV SCH ×5 (10:15→23:15)
[2020-07-13] MEDS: FENTANYL-0.9 % NACL/PF 100 ML IV PRN (11:44)
[2020-07-13] MEDS: hydrALAZINE 20mg/ml inj. IV PRN ×3 (16:50→23:16)
[2020-07-13] MEDS ORDERED: bisacodyl 10mg suppository rectal RC PRN (17:50)
--- NOTE | 2020-07-13 18:30 | NUR ---
Patient in room ICU 2043. I have received report from JASON Mcdermott and had the opportunity to ask questions and assume patient care.
--- NOTE | 2020-07-13 18:33 | NUR ---
I have reviewed and agree with all medications administered and interventions performed by [facility] Student Naila Mendosa.
--- NOTE | 2020-07-13 18:35 | NUR ---
Patient self extubated, unwitnessed. Patient suctioned and bagged then was placed on a mask on 15L. Dr. Orta called and notified. Asked to place patient on bipap to see if she tolerates extubation, orders received. Patient was placed on bipap and was increasingly getting agitated and kept trying to pull mask off. Educated patient on the need for bipap but patient is confused and rapidly desating into the low 80's without bipap. Restraints were placed back on the patient and bipap was continued and PROJECT DIRECTOR September Rigoberto notified. Sitter obtained for the the patient. Patient sating in mid to high 90's on 40% fio2. will continue monitoring.
[2020-07-13] MEDS ORDERED: racepinephrine 11.25mg/0.5ml nebule ONE (18:41)
[2020-07-13 20:36] LABS: ABG BASE EXCESS 2.9 mmol/L (-2.0-2.0); ABG HCO3 28.4 mmol/L (22.0-26.0); ABG OXYGEN SATURATION 96.8 % (94-97); ABG PCO2 (T) 48.2 mmHg (32.0-45.0); FCOHb 0.3 % (0.0-3.9); FMetHb 0.1 % (0.0-1.5); FO2Hb 96.4 % (94-97); PATIENT TEMPERATURE 37.3; RESPIRATORY RATE 20 b/min; TIDAL VOLUME 617 mL; TOTAL HEMOGLOBIN 11.5 G/dl (12.0-16.0)
[2020-07-13] MEDS ORDERED: OLANZapine **IM** 10 mg inj. IM PRN (23:00)
[2020-07-14] VITALS (22 sets, daily range): BP systolic 148–187; BP diastolic 76–97
[2020-07-14] MEDS: methylPREDNISolone sod succ 125mg/2ml vial IV SCH ×4 (01:26→21:08)
[2020-07-14] MEDS: dexmedetomidin/NS 400mcg/100ml 100 ML IV SCH ×7 (01:26→15:41)
[2020-07-14 01:53] LABS: BASOPHILS % (AUTO) 0.3 % (0-1); EOSINOPHILS % (AUTO) 0 % (0-6); HEMATOCRIT 32.9 % (35.0-45.0); HEMOGLOBIN 10.2 g/dl (12.0-16.0); LYMPHOCYTES # (AUTO) 0.3 X10'3 (1.1-4.8); LYMPHOCYTES % (AUTO) 2.1 % (21-51); MEAN CORPUSCULAR HEMOGLOBIN 24.6 PG (27.0-31.0); MEAN CORPUSCULAR VOLUME 79.4 FL (78-98); MEAN PLATELET VOLUME 8.3 FL (7.4-10.4); MONOCYTES # (AUTO) 0.4 X10'3 (0-0.9); MONOCYTES % (AUTO) 2.6 % (2-12); NEUTROPHILS # (AUTO) 14.4 X10'3 (1.8-7.7); PLATELET COUNT 358 X10'3 (140-440); RED BLOOD COUNT 4.14 X10'6 (4.20-5.60); RED CELL DISTRIBUTION WIDTH 16.9 % (11.5-14.5); WHITE BLOOD COUNT 15.2 X10'3 (4.5-11.0)
[2020-07-14 02:01] LABS: ALANINE AMINOTRANSFERASE 36 U/L (12-78); ALBUMIN 3.1 G/DL (3.4-5.0); ALBUMIN/GLOBULIN RATIO 0.6 (1.1-1.5); ALKALINE PHOSPHATASE 156 IU/L (46-116); ANION GAP 6 (8-16); ASPARTATE AMINO TRANSFERASE 10 U/L (10-37); BILIRUBIN,TOTAL 0.2 MG/DL (0.1-1.0); BLOOD UREA NITROGEN 43 MG/DL (7-18); BUN/CREATININE RATIO 35.8 (6.6-38.0); CALCIUM 8.3 MG/DL (8.5-10.1); CHLORIDE 105 MMOL/L (99-107); GLUCOSE 142 MG/DL (70-104); MAGNESIUM 2.6 MG/DL (1.5-2.4); PHOSPHORUS 3.8 MG/DL (2.3-4.5); POTASSIUM 4.3 MMOL/L (3.5-5.1); SODIUM 141 MMOL/L (135-145); TOTAL CARBON DIOXIDE 30.4 MMOL/L (24-32); eGFR 45 ML/MIN
[2020-07-14] MEDS: hydrALAZINE 20mg/ml inj. IV PRN ×3 (02:16→10:28)
[2020-07-14] MEDS: levalbuterol 0.63mg/3ml nebule IH SCH ×4 (02:49→20:55)
--- NOTE | 2020-07-14 06:30 | NUR ---
Problems reprioritized. Patient report given, questions answered & plan of care reviewed with JASON Mosley.
[2020-07-14 07:18] LABS: ANISOCYTOSIS 1+; MICROCYTOSIS 1+; PLATELET ESTIMATE NORMAL; POLYCHROMASIA FEW; STOMATOCYTES 1+
[2020-07-14] MEDS: K and/or MAG REPLACEMENT MC SCH ×2 (08:00→20:00)
[2020-07-14] MEDS: lisinopril 20mg tablet PO SCH (08:23)
[2020-07-14] MEDS: lactobacillus rhamnosus 10,000 MMU CELLS/CAPSULE PO SCH ×2 (08:23→21:08)
[2020-07-14] MEDS: heparin, porcine 5000 units/ml vial SQ SCH ×2 (08:25→21:08)
[2020-07-14] MEDS: pantoprazole 40 MG vial IV SCH (08:29)
[2020-07-14] MEDS: furosemide 40mg/4ml inj IV SCH (08:29)
[2020-07-14] MEDS: nystatin 15 GM powder TP SCH ×2 (08:41→21:08)
[2020-07-14] MEDS: CefTRIAXone/D5W-Rocephin 1gm 50 ML IV SCH (08:42)
[2020-07-14] MEDS: azithromycin/NS 500mg/250ml 250 ML IV SCH (09:25)
[2020-07-14] MEDS ORDERED: morphine 4 MG/ML inj SYRINge IV PRN (10:55)
[2020-07-14] MEDS: mineral oil/petrolatum, white cream 113gm jar TP SCH (11:01)
--- NOTE | 2020-07-14 12:24 | NUR ---
Per RN notes pt self extubated. Pt documented as A/O x 1 and confused, agitated, resistive to care, impulsive, anxious, and restless. TF has been discontinued. Noted that patient's diet has been advanced to mechanical soft with pudding/extremely thick liquids. TC with RN who states pt with no teeth however tolerated applesauce with medications. Recommend BSS with ST to assess need for proper texture modification. D/w RN recommendation for diet change to mechanical soft grind all (MM5). Will continue to follow closely. Rec: 1. Advance to heart healthy diet as medically indicated with texture modification per ST pending BSS 2. Monitor need for ONS; IF significant wounds consider Jose supplementation pending WOC 3. routine bowel care 4. Scaled weights per rx Addendum: 07/14/20 at [address] Amended: Links added.
[2020-07-14] MEDS: ipratropium 0.5 MG/2.5ML nebule IH PRN (15:08)
--- NOTE | 2020-07-14 17:30 | NUR ---
Resource nurse and charge took over pt care. Primary RN sent to ER. Was not able to give report to production shift supervisor
--- NOTE | 2020-07-14 18:06 | NUR ---
Creola reassessment not completed reassessment time was before i was on the unit, pt VS stable at the time i came on shift and pt did not report any pain at that time.
--- NOTE | 2020-07-14 18:30 | NUR ---
Patient in room ICU 2043. I have received report from Mariela RN (resource nurse, d/t primary RN going to ER for exposure protocol) and had the opportunity to ask questions and assume patient care.
[2020-07-15] VITALS (24 sets, daily range): BP systolic 148–191; BP diastolic 74–95
[2020-07-15] MEDS: levalbuterol 0.63mg/3ml nebule IH SCH ×4 (01:46→21:39)
[2020-07-15] MEDS: methylPREDNISolone sod succ 125mg/2ml vial IV SCH ×3 (02:33→19:16)
[2020-07-15 04:17] LABS: BASOPHILS % (AUTO) 0.1 % (0-1); EOSINOPHILS % (AUTO) 0 % (0-6); HEMATOCRIT 32.1 % (35.0-45.0); HEMOGLOBIN 9.7 g/dl (12.0-16.0); LYMPHOCYTES # (AUTO) 0.3 X10'3 (1.1-4.8); LYMPHOCYTES % (AUTO) 4.1 % (21-51); MEAN CORPUSCULAR HEMOGLOBIN 23.9 PG (27.0-31.0); MEAN CORPUSCULAR HGB CONC 30.3 g/dL (33.0-36.5); MEAN CORPUSCULAR VOLUME 78.8 FL (78-98); MEAN PLATELET VOLUME 8.6 FL (7.4-10.4); MONOCYTES # (AUTO) 0.2 X10'3 (0-0.9); NEUTROPHILS # (AUTO) 7.6 X10'3 (1.8-7.7); NEUTROPHILS % (AUTO) 92.8 % (42-75); PLATELET COUNT 337 X10'3 (140-440); RED BLOOD COUNT 4.08 X10'6 (4.20-5.60); RED CELL DISTRIBUTION WIDTH 16.5 % (11.5-14.5); WHITE BLOOD COUNT 8.2 X10'3 (4.5-11.0)
[2020-07-15 04:24] LABS: ALANINE AMINOTRANSFERASE 27 U/L (12-78); ALBUMIN/GLOBULIN RATIO 0.7 (1.1-1.5); ALKALINE PHOSPHATASE 129 IU/L (46-116); ANION GAP 7 (8-16); ASPARTATE AMINO TRANSFERASE 8 U/L (10-37); BILIRUBIN,TOTAL 0.3 MG/DL (0.1-1.0); BLOOD UREA NITROGEN 45 MG/DL (7-18); BUN/CREATININE RATIO 38.8 (6.6-38.0); CALCIUM 8.2 MG/DL (8.5-10.1); CHLORIDE 107 MMOL/L (99-107); CREATININE 1.16 MG/DL (0.40-0.90); GLUCOSE 123 MG/DL (70-104); MAGNESIUM 2.6 MG/DL (1.5-2.4); PHOSPHORUS 3.6 MG/DL (2.3-4.5); POTASSIUM 3.9 MMOL/L (3.5-5.1); SODIUM 142 MMOL/L (135-145); TOTAL CARBON DIOXIDE 28.4 MMOL/L (24-32); TOTAL PROTEIN 7.2 G/DL (6.4-8.2); eGFR 47 ML/MIN
[2020-07-15] MEDS: hydrALAZINE 20mg/ml inj. IV PRN ×3 (05:15→23:06)
--- NOTE | 2020-07-15 06:18 | NUR ---
Problems reprioritized. Patient report given, questions answered & plan of care reviewed with Jessica GOMEZ.
[2020-07-15] MEDS: nystatin 15 GM powder TP SCH ×2 (07:37→19:17)
[2020-07-15] MEDS: furosemide 40mg/4ml inj IV SCH (07:39)
[2020-07-15] MEDS: pantoprazole 40 MG vial IV SCH (07:39)
[2020-07-15] MEDS: CefTRIAXone/D5W-Rocephin 1gm 50 ML IV SCH (07:40)
[2020-07-15] MEDS: azithromycin/NS 500mg/250ml 250 ML IV SCH (07:43)
[2020-07-15] MEDS: K and/or MAG REPLACEMENT MC SCH ×2 (07:45→20:29)
[2020-07-15] MEDS: mineral oil/petrolatum, white cream 113gm jar TP SCH (07:45)
[2020-07-15] MEDS: heparin, porcine 5000 units/ml vial SQ SCH ×2 (07:45→19:16)
[2020-07-15] MEDS: lactobacillus rhamnosus 10,000 MMU CELLS/CAPSULE PO SCH ×2 (07:45→19:16)
[2020-07-15] MEDS: lisinopril 20mg tablet PO SCH (07:45)
--- NOTE | 2020-07-15 13:56 | NUR ---
Patient in room ICU 2043. I have received report from JASON COVARRUBIAS and had the opportunity to ask questions and assume patient care.
--- NOTE | 2020-07-15 18:19 | NUR ---
Problems reprioritized. Patient report given, questions answered & plan of care reviewed with conrado junior.
[2020-07-15] MEDS: ipratropium 0.5 MG/2.5ML nebule IH PRN (21:39)
[2020-07-16] VITALS (16 sets, daily range): BP systolic 150–185; BP diastolic 66–95
[2020-07-16] MEDS: levalbuterol 0.63mg/3ml nebule IH SCH ×4 (03:55→21:20)
--- NOTE | 2020-07-16 05:01 | NUR ---
Patient stable throughout shift. Bathed and new linens and wound dressings changed. HTN requiring PRN Hydralazine x2.
[2020-07-16 06:33] LABS: BASOPHILS % (AUTO) 0.2 % (0-1); EOSINOPHILS % (AUTO) 0 % (0-6); HEMATOCRIT 33.5 % (35.0-45.0); HEMOGLOBIN 10.2 g/dl (12.0-16.0); LYMPHOCYTES # (AUTO) 0.5 X10'3 (1.1-4.8); LYMPHOCYTES % (AUTO) 6.2 % (21-51); MEAN CORPUSCULAR HEMOGLOBIN 24.1 PG (27.0-31.0); MEAN CORPUSCULAR HGB CONC 30.5 g/dL (33.0-36.5); MEAN CORPUSCULAR VOLUME 79.1 FL (78-98); MEAN PLATELET VOLUME 8.9 FL (7.4-10.4); MONOCYTES # (AUTO) 0.6 X10'3 (0-0.9); MONOCYTES % (AUTO) 6.6 % (2-12); NEUTROPHILS # (AUTO) 7.7 X10'3 (1.8-7.7); PLATELET COUNT 356 X10'3 (140-440); RED BLOOD COUNT 4.23 X10'6 (4.20-5.60); RED CELL DISTRIBUTION WIDTH 16.8 % (11.5-14.5); WHITE BLOOD COUNT 8.9 X10'3 (4.5-11.0)
[2020-07-16 07:10] LABS: ALANINE AMINOTRANSFERASE 24 U/L (12-78); ALBUMIN/GLOBULIN RATIO 0.7 (1.1-1.5); ALKALINE PHOSPHATASE 119 IU/L (46-116); ANION GAP 9 (8-16); ASPARTATE AMINO TRANSFERASE 11 U/L (10-37); BILIRUBIN,TOTAL 0.3 MG/DL (0.1-1.0); BLOOD UREA NITROGEN 39 MG/DL (7-18); BUN/CREATININE RATIO 35.5 (6.6-38.0); CALCIUM 8.3 MG/DL (8.5-10.1); CHLORIDE 109 MMOL/L (99-107); GLUCOSE 107 MG/DL (70-104); MAGNESIUM 2.6 MG/DL (1.5-2.4); PHOSPHORUS 3.2 MG/DL (2.3-4.5); SODIUM 147 MMOL/L (135-145); TOTAL CARBON DIOXIDE 29.1 MMOL/L (24-32); TOTAL PROTEIN 7.2 G/DL (6.4-8.2); eGFR 50 ML/MIN
[2020-07-16] MEDS: furosemide 40mg/4ml inj IV SCH (08:00)
[2020-07-16] MEDS: K and/or MAG REPLACEMENT MC SCH ×2 (08:00→20:00)
[2020-07-16] MEDS: pantoprazole 40 MG vial IV SCH (08:01)
[2020-07-16] MEDS: CefTRIAXone/D5W-Rocephin 1gm 50 ML IV SCH (08:02)
[2020-07-16] MEDS: methylPREDNISolone sod succ 125mg/2ml vial IV SCH ×2 (08:02→19:19)
[2020-07-16] MEDS: azithromycin/NS 500mg/250ml 250 ML IV SCH (08:03)
[2020-07-16] MEDS: lactobacillus rhamnosus 10,000 MMU CELLS/CAPSULE PO SCH ×2 (08:04→19:19)
[2020-07-16] MEDS: lisinopril 20mg tablet PO SCH (08:04)
[2020-07-16] MEDS: nystatin 15 GM powder TP SCH ×2 (08:05→19:19)
[2020-07-16] MEDS: heparin, porcine 5000 units/ml vial SQ SCH ×2 (08:05→19:19)
[2020-07-16] MEDS: mineral oil/petrolatum, white cream 113gm jar TP SCH (08:16)
[2020-07-16] MEDS: hydrALAZINE 20mg/ml inj. IV PRN ×2 (09:33→13:10)
--- NOTE | 2020-07-16 11:27 | NUR ---
F/u 07/16: Pt s/p self-extubation advanced to mechanical soft/thin liquids per LAST SCOURER recs today. PO 25-50% first meals w/ no BM 5 days this admit. TIMO d/w lunchroom operator regarding routine bowel care this admit given constipation. Given PO and additional protein/kcal needs RD recommends ensure enlive TIDWM; MD notified. Noted -7.1L fluid balance this admit likely to impact wt. Will continue to monitor. Rec: 1. continue mechanical soft/thin diet per LAST SCOURER/MD; consider heart healthy restriction once PO improves 2. Ensure Enlive TIDWM 3. routine bowel care 4. weekly wts Addendum: 07/16/20 at [address] Amended: Links added.
[2020-07-16] MEDS: lactose-reduced food (Ensure Enlive) - 237ml bottle PO SCH ×2 (13:00→18:53)
--- NOTE | 2020-07-16 13:28 | NUR ---
Patient arrived to PCU. Ambulated to hospital bed with minimal assistance. Patient oriented to call light and room. Offers no complaints. Vital signs stable.
--- NOTE | 2020-07-16 13:50 | NUR ---
Report given to Kalee GOMEZ at 1215, moved to 3022 at 1345, tele monitor on with O2 monitoring, Bipap being moved by RT, Patient stable at transfer of care.
--- NOTE | 2020-07-16 18:15 | NUR ---
Patient in room PCU 3022. I have received report from JASON Granda and had the opportunity to ask questions and assume patient care.
--- NOTE | 2020-07-16 18:22 | NUR ---
[place] documentation: I have reviewed and agree with all interventions, assessments performed and documented by JASON Maher. [place] Medication Administration: For this medication-pass time frame, all medication were reviewed, dispensed, administered and documented per hospital policy by JASON Maher.
[2020-07-17 02:12] VITALS: BP 177/87
[2020-07-17] MEDS: hydrALAZINE 20mg/ml inj. IV PRN (02:57)
[2020-07-17] MEDS: levalbuterol 0.63mg/3ml nebule IH SCH ×4 (03:36→20:56)
[2020-07-17 06:00] VITALS: BP 162/90
[2020-07-17 06:16] LABS: ALANINE AMINOTRANSFERASE 22 U/L (12-78); ALBUMIN 3.2 G/DL (3.4-5.0); ALBUMIN/GLOBULIN RATIO 0.8 (1.1-1.5); ALKALINE PHOSPHATASE 120 IU/L (46-116); ANION GAP 8 (8-16); ASPARTATE AMINO TRANSFERASE 8 U/L (10-37); BILIRUBIN,TOTAL 0.3 MG/DL (0.1-1.0); BLOOD UREA NITROGEN 38 MG/DL (7-18); BUN/CREATININE RATIO 34.9 (6.6-38.0); CALCIUM 8.5 MG/DL (8.5-10.1); CHLORIDE 108 MMOL/L (99-107); CREATININE 1.09 MG/DL (0.40-0.90); GLUCOSE 113 MG/DL (70-104); MAGNESIUM 2.6 MG/DL (1.5-2.4); PHOSPHORUS 3.7 MG/DL (2.3-4.5); POTASSIUM 4.1 MMOL/L (3.5-5.1); SODIUM 146 MMOL/L (135-145); TOTAL PROTEIN 7.3 G/DL (6.4-8.2); eGFR 50 ML/MIN
--- NOTE | 2020-07-17 06:27 | NUR ---
Problems reprioritized. Patient report given, questions answered & plan of care reviewed with JASON Mo.
--- NOTE | 2020-07-17 06:30 | NUR ---
Patient in room PCU 3022. I have received report from JASON Kelsey and had the opportunity to ask questions and assume patient care.
[2020-07-17] MEDS: lactose-reduced food (Ensure Enlive) - 237ml bottle PO SCH ×3 (08:00→18:00)
[2020-07-17] MEDS: K and/or MAG REPLACEMENT MC SCH ×2 (08:00→20:00)
[2020-07-17] MEDS: mineral oil/petrolatum, white cream 113gm jar TP SCH (08:00)
[2020-07-17] MEDS: methylPREDNISolone sod succ 125mg/2ml vial IV SCH ×2 (08:40→21:33)
[2020-07-17] MEDS: heparin, porcine 5000 units/ml vial SQ SCH ×2 (08:42→21:35)
[2020-07-17] MEDS: CefTRIAXone/D5W-Rocephin 1gm 50 ML IV SCH (08:43)
[2020-07-17] MEDS: furosemide 40mg/4ml inj IV SCH ×3 (08:44→23:56)
[2020-07-17] MEDS: lisinopril 20mg tablet PO SCH (08:45)
[2020-07-17] MEDS: pantoprazole 40mg Tablet.DR PO SCH (08:45)
[2020-07-17] MEDS: azithromycin 250mg tablet PO SCH (08:45)
[2020-07-17] MEDS: lactobacillus rhamnosus 10,000 MMU CELLS/CAPSULE PO SCH ×2 (08:45→21:33)
[2020-07-17] MEDS: nystatin 15 GM powder TP SCH ×2 (08:46→21:34)
[2020-07-17 11:00] VITALS: BP 163/76
[2020-07-17 15:00] VITALS: BP 160/82
[2020-07-17 18:00] VITALS: BP 117/75
--- NOTE | 2020-07-17 18:40 | NUR ---
Patient in room PCU 3022. I have received report from Chely GOMEZ and had the opportunity to ask questions and assume patient care.
--- NOTE | 2020-07-17 18:40 | NUR ---
Problems reprioritized. Patient report given, questions answered & plan of care reviewed with JASON Tinoco.
[2020-07-17 22:00] VITALS: BP 152/75
[2020-07-18] MEDS: levalbuterol 0.63mg/3ml nebule IH SCH ×4 (02:49→20:47)
[2020-07-18 05:21] LABS: ALANINE AMINOTRANSFERASE 22 U/L (12-78); ALBUMIN 3.2 G/DL (3.4-5.0); ALBUMIN/GLOBULIN RATIO 0.7 (1.1-1.5); ALKALINE PHOSPHATASE 117 IU/L (46-116); ANION GAP 3 (8-16); ASPARTATE AMINO TRANSFERASE 6 U/L (10-37); BILIRUBIN,TOTAL 0.3 MG/DL (0.1-1.0); BLOOD UREA NITROGEN 39 MG/DL (7-18); BUN/CREATININE RATIO 32.8 (6.6-38.0); CALCIUM 8.6 MG/DL (8.5-10.1); CHLORIDE 106 MMOL/L (99-107); CREATININE 1.19 MG/DL (0.40-0.90); GLUCOSE 129 MG/DL (70-104); MAGNESIUM 2.4 MG/DL (1.5-2.4); PHOSPHORUS 4.5 MG/DL (2.3-4.5); POTASSIUM 4.3 MMOL/L (3.5-5.1); SODIUM 145 MMOL/L (135-145); TOTAL CARBON DIOXIDE 36.3 MMOL/L (24-32); TOTAL PROTEIN 7.5 G/DL (6.4-8.2); TRIGLYCERIDES 126 MG/DL (20-135); eGFR 46 ML/MIN
--- NOTE | 2020-07-18 06:27 | NUR ---
Problems reprioritized. Patient report given, questions answered & plan of care reviewed with Rocio GOMEZ and nursing surgical services director.
[2020-07-18] MEDS: methylPREDNISolone sod succ 125mg/2ml vial IV SCH ×2 (07:38→21:10)
[2020-07-18] MEDS: furosemide 40mg/4ml inj IV SCH ×2 (07:38→17:01)
[2020-07-18 07:40] VITALS: BP 115/50
[2020-07-18] MEDS: lactobacillus rhamnosus 10,000 MMU CELLS/CAPSULE PO SCH ×2 (07:41→21:11)
[2020-07-18] MEDS: pantoprazole 40mg Tablet.DR PO SCH (07:41)
[2020-07-18] MEDS: CefTRIAXone/D5W-Rocephin 1gm 50 ML IV SCH (07:42)
[2020-07-18] MEDS: azithromycin 250mg tablet PO SCH (07:42)
[2020-07-18] MEDS: lisinopril 20mg tablet PO SCH (07:42)
[2020-07-18] MEDS: mineral oil/petrolatum, white cream 113gm jar TP SCH (07:44)
[2020-07-18] MEDS: heparin, porcine 5000 units/ml vial SQ SCH ×2 (07:44→21:12)
[2020-07-18] MEDS: nystatin 15 GM powder TP SCH ×2 (07:44→21:14)
[2020-07-18] MEDS: lactose-reduced food (Ensure Enlive) - 237ml bottle PO SCH ×3 (07:52→18:05)
[2020-07-18] MEDS: K and/or MAG REPLACEMENT MC SCH ×2 (07:52→20:00)
[2020-07-18 11:00] VITALS: BP 154/73
[2020-07-18 17:06] VITALS: BP 121/59
--- NOTE | 2020-07-18 18:32 | NUR ---
Problems reprioritized. Patient report given, questions answered & plan of care reviewed with MAYNOR RN.
[2020-07-18 19:30] VITALS: BP 114/53
[2020-07-19] VITALS: BP 131/79
[2020-07-19] MEDS: furosemide 40mg/4ml inj IV SCH ×2 (00:02→08:09)
[2020-07-19] MEDS: levalbuterol 0.63mg/3ml nebule IH SCH ×3 (02:41→15:50)
[2020-07-19 05:00] VITALS: BP 138/72
[2020-07-19 06:00] VITALS: BP 118/70
[2020-07-19 06:02] LABS: ALANINE AMINOTRANSFERASE 20 U/L (12-78); ALBUMIN 3.1 G/DL (3.4-5.0); ALBUMIN/GLOBULIN RATIO 0.8 (1.1-1.5); ALKALINE PHOSPHATASE 111 IU/L (46-116); ANION GAP 4 (8-16); ASPARTATE AMINO TRANSFERASE 6 U/L (10-37); BILIRUBIN,TOTAL 0.3 MG/DL (0.1-1.0); BLOOD UREA NITROGEN 55 MG/DL (7-18); BUN/CREATININE RATIO 38.5 (6.6-38.0); CALCIUM 8.7 MG/DL (8.5-10.1); CHLORIDE 105 MMOL/L (99-107); CREATININE 1.43 MG/DL (0.40-0.90); GLUCOSE 139 MG/DL (70-104); PHOSPHORUS 4.5 MG/DL (2.3-4.5); POTASSIUM 4.2 MMOL/L (3.5-5.1); SODIUM 145 MMOL/L (135-145); TOTAL CARBON DIOXIDE 35.6 MMOL/L (24-32); TOTAL PROTEIN 7.2 G/DL (6.4-8.2); TRIGLYCERIDES 114 MG/DL (20-135); eGFR 37 ML/MIN
--- NOTE | 2020-07-19 07:00 | NUR ---
Patient in room PCU 3022. I have received report from Gill RN and had the opportunity to ask questions and assume patient care.
[2020-07-19] MEDS: K and/or MAG REPLACEMENT MC SCH (08:00)
[2020-07-19] MEDS: azithromycin 250mg tablet PO SCH (08:08)
[2020-07-19] MEDS: lactobacillus rhamnosus 10,000 MMU CELLS/CAPSULE PO SCH (08:08)
[2020-07-19] MEDS: CefTRIAXone/D5W-Rocephin 1gm 50 ML IV SCH (08:08)
[2020-07-19] MEDS: pantoprazole 40mg Tablet.DR PO SCH (08:08)
[2020-07-19] MEDS: lisinopril 20mg tablet PO SCH (08:08)
[2020-07-19] MEDS: lactose-reduced food (Ensure Enlive) - 237ml bottle PO SCH ×2 (08:09→13:00)
[2020-07-19] MEDS: methylPREDNISolone sod succ 125mg/2ml vial IV SCH (08:09)
[2020-07-19] MEDS: nystatin 15 GM powder TP SCH (08:09)
[2020-07-19] MEDS: mineral oil/petrolatum, white cream 113gm jar TP SCH (08:09)
[2020-07-19] MEDS: heparin, porcine 5000 units/ml vial SQ SCH (08:10)
[2020-07-19 11:00] VITALS: BP 101/53
--- NOTE | 2020-07-19 12:30 | NUR ---
Pt maintaining o2 Sats of 91-93% on Room air. No s/sx distress, no pt c/o at this time. Will continue to monitor.
[2020-07-19 15:00] VITALS: BP 137/63
[2020-07-19] MEDS ORDERED: LEVO500T89 PO (16:15)
[2020-07-19] MEDS ORDERED: PRED10TA PO (16:20)
--- NOTE | 2020-07-19 18:36 | NUR ---
Problems reprioritized. Patient report given, questions answered & plan of care reviewed with Vini RN.
[2020-07-20] MEDS ORDERED: predniSONE 20 mg tablet PO SCH (08:00)
== END 2020-07-19 19:45 | disposition home health service (06) | DRG 720 ==
LOC: ER 12:53 → ED HOLD 17:04 → ICU 2S 19:48 → PCU 3S 07-16 13:28
PROVIDERS: ADMIT Internal Medicine; ATTEND Internal Medicine
PROC: 5A1945Z Respiratory Ventilation, 24-96 Consecutive Hours (ICD-10-PCS; 2020-07-11)
PROC: 0BH17EZ Insertion of Endotracheal Airway into Trachea, Via Natural or Artificial Opening (ICD-10-PCS; 2020-07-11)
PROC: 5A09357 Assistance with Respiratory Ventilation, Less than 24 Consecutive Hours, Continuous Positive Airway Pressure (ICD-10-PCS; 2020-07-13)
PROC: 5A09357 Assistance with Respiratory Ventilation, Less than 24 Consecutive Hours, Continuous Positive Airway Pressure (ICD-10-PCS; 2020-07-14)
PROC: 0W9B3ZZ Drainage of Left Pleural Cavity, Percutaneous Approach (ICD-10-PCS; principal; 2020-07-18)
DX: A41.9 Sepsis, unspecified organism (principal); J18.9 Pneumonia, unspecified organism; J96.01 Acute respiratory failure with hypoxia; I13.0 Hypertensive heart and chronic kidney disease with heart failure and stage 1 through stage 4 chronic kidney disease, or unspecified chronic kidney disease; J44.1 Chronic obstructive pulmonary disease with (acute) exacerbation; I50.33 Acute on chronic diastolic (congestive) heart failure; J44.0 Chronic obstructive pulmonary disease with (acute) lower respiratory infection; D64.9 Anemia, unspecified; L97.919 Non-pressure chronic ulcer of unspecified part of right lower leg with unspecified severity; L97.929 Non-pressure chronic ulcer of unspecified part of left lower leg with unspecified severity; F20.9 Schizophrenia, unspecified; F17.200 Nicotine dependence, unspecified, uncomplicated; N18.9 Chronic kidney disease, unspecified; Z20.828 Contact with and (suspected) exposure to other viral communicable diseases; Z86.73 Personal history of transient ischemic attack (TIA), and cerebral infarction without residual deficits
CPT/HCPCS: 36415; 36600; 71045; 76604; 80053; 81001; 82803; 82948; 83605; 83735; 83880; 84100; 84134; 84145; 84443; 84478; 84484; 85008; 85018; 85025; 87040; 87081; 87635; 92508; 92616; 93005; 93306; 94002; 94003; 94640; 94660; 94760; 97110; 97116; 97161; 97530; 99285; A7015; C9113; G0378; J0360; J0456; J0461; J0696; J1644; J1940; J2060; J2930; J3010; J7030; J7614; Q2039

== ENCOUNTER 2020-08-02 10:06 | Inpatient (IN) | payer MEDICAID ==
[~2020-08-02] VITALS: Ht 165.1 cm; Wt 104.2 kg
[~2020-08-02 10:06] MED LIST changes: -AMLO5TAB16 PO; +ATR0.5NEB NEB; +BUDE0.5A3 NEB; -DOXY-224 PO; -LACT-237 PO; -LACT1CAP26 PO; +LISI-600 PO; +PANT-47 PO; -PANT40TA54 PO; +PRED10TA PO; -WOOL454C TP; -atropine 0.1mg/ml 10ml syringe ONE; -etomidate 2mg/ml inj. ONE; -rocuronium 10mg/ml inj IV ONE
[2020-08-02 12:32] LABS: BASOPHILS # (AUTO) 0.1 X10'3 (0-0.2); BASOPHILS % (AUTO) 0.6 % (0-1); EOSINOPHILS # (AUTO) 0.2 X10'3 (0-0.9); EOSINOPHILS % (AUTO) 1.9 % (0-6); HEMATOCRIT 29.4 % (35.0-45.0); HEMOGLOBIN 8.9 g/dl (12.0-16.0); LYMPHOCYTES # (AUTO) 1.4 X10'3 (1.1-4.8); LYMPHOCYTES % (AUTO) 14.3 % (21-51); MEAN CORPUSCULAR HEMOGLOBIN 23.8 PG (27.0-31.0); MEAN CORPUSCULAR HGB CONC 30.3 g/dL (33.0-36.5); MEAN CORPUSCULAR VOLUME 78.4 FL (78-98); MEAN PLATELET VOLUME 8.2 FL (7.4-10.4); MONOCYTES # (AUTO) 0.8 X10'3 (0-0.9); MONOCYTES % (AUTO) 7.9 % (2-12); NEUTROPHILS # (AUTO) 7.5 X10'3 (1.8-7.7); NEUTROPHILS % (AUTO) 75.3 % (42-75); PLATELET COUNT 392 X10'3 (140-440); RED BLOOD COUNT 3.75 X10'6 (4.20-5.60); RED CELL DISTRIBUTION WIDTH 18.1 % (11.5-14.5)
[2020-08-02 12:48] LABS: ALANINE AMINOTRANSFERASE 48 U/L (12-78); ALBUMIN 2.3 G/DL (3.4-5.0); ALBUMIN/GLOBULIN RATIO 0.5 (1.1-1.5); ALKALINE PHOSPHATASE 202 IU/L (46-116); ANION GAP 9 (8-16); ASPARTATE AMINO TRANSFERASE 32 U/L (10-37); BILIRUBIN,TOTAL 0.2 MG/DL (0.1-1.0); BLOOD UREA NITROGEN 16 MG/DL (7-18); BUN/CREATININE RATIO 15.5 (6.6-38.0); CALCIUM 8.6 MG/DL (8.5-10.1); CHLORIDE 107 MMOL/L (99-107); CREATININE 1.03 MG/DL (0.40-0.90); GLUCOSE 93 MG/DL (70-104); SODIUM 141 MMOL/L (135-145); TOTAL CARBON DIOXIDE 24.6 MMOL/L (24-32); TOTAL PROTEIN 7.1 G/DL (6.4-8.2); eGFR 54 ML/MIN
[2020-08-02] MEDS ORDERED: predniSONE 20 mg tablet PO ONE (13:00)
[2020-08-02] MEDS ORDERED: HYDROcodone/acetaminophen 5mg/325mg tablet PO ONE (13:10)
[2020-08-02] MEDS ORDERED: ondansetron 4mg rapidly disintigrating tab PO ONE (13:10)
[2020-08-02] MEDS ORDERED: piperacillin/tazo 3.375gm/50ml 50 ML IV ONE (13:20)
[2020-08-02] MEDS ORDERED: CefTRIAXone 2gm/D5W 50ml BAG 50 ML IV ONE (13:20)
[2020-08-02] MEDS ORDERED: normal saline 500ml IV soln 500 ML IV ONE (13:30)
[2020-08-02] MEDS ORDERED: mag hydrox/Alum hydrox/simeth 30ml oral suspension PO PRN (13:55)
[2020-08-02] MEDS ORDERED: magnesium hydroxide 30ml (MOM) UD suspension PO PRN (13:55)
[2020-08-02] MEDS ORDERED: morphine 2 MG/ML inj. syringe IV PRN ×2 (13:55)
[2020-08-02] MEDS ORDERED: ondansetron/PF 4mg/2ml inj IV PRN (13:55)
[2020-08-02] MEDS ORDERED: acetaminophen 325mg tablet PO PRN (13:55)
[2020-08-02] MEDS: furosemide 40mg/4ml inj IV SCH ×2 (15:29→20:57)
[2020-08-02] MEDS ORDERED: PRED10TA23 PO (15:49)
--- NOTE | 2020-08-02 16:11 | NUR ---
pa made aware of hr in the 130's, no new orders at this time, will continue to monitor
[2020-08-02] MEDS: vancomycin/NS 1 GM ADD-VANTAGE 250 ML IV SCH ×2 (16:43→20:57)
--- NOTE | 2020-08-02 16:58 | NUR ---
Patient continues to rest in bed with lights dimmed. no other needs at this time.
--- NOTE | 2020-08-02 19:17 | NUR ---
Patient in room ED 11. I have received report from JASON Panchal and had the opportunity to ask questions and assume patient care.
[2020-08-02 19:43] LABS: CLARITY,URINE CLEAR (Clear); COLOR,URINE STRAW (Yellow); GLUCOSE, URINE NEGATIVE (Neg); KETONES,URINE NEGATIVE (Neg); LEUKOCYTE ESTERASE ,URINE NEGATIVE (Neg); NITRITES, URINE NEGATIVE (Neg); OCCULT BLOOD,URINE NEGATIVE (Neg); PROTEIN,URINE NEGATIVE (Neg); UROBILINOGEN,URINE 0.2 E.U/dL (0.2-1.0)
[2020-08-02 19:44] LABS: UA COLLECTION TYPE NON-SPECIFIED
[2020-08-02 19:55] LABS: URINE AMPHETAMINE SCREEN NEGATIVE (Neg); URINE BARBITUATE SCREEN NEGATIVE (Neg); URINE BENZODIAZEPINES SCREEN NEGATIVE (Neg); URINE CANNABINOID SCREEN NEGATIVE (Neg); URINE COCAINE SCREEN NEGATIVE (Neg); URINE METHADONE SCREEN NEGATIVE (Neg); URINE OPIATE SCREEN NEGATIVE (Neg); URINE PHENCYCLIDINE SCREEN NEGATIVE (Neg)
[2020-08-02] MEDS: HYDROcodone/acetaminophen 10/325mg tab PO PRN (20:57)
[2020-08-02 21:00] VITALS: BP 144/70
[2020-08-03] VITALS: BP 158/74
[2020-08-03 06:03] LABS: BASOPHILS % (AUTO) 0.3 % (0-1); EOSINOPHILS % (AUTO) 0.1 % (0-6); HEMATOCRIT 27.5 % (35.0-45.0); HEMOGLOBIN 8.5 g/dl (12.0-16.0); LYMPHOCYTES # (AUTO) 0.9 X10'3 (1.1-4.8); LYMPHOCYTES % (AUTO) 8.5 % (21-51); MEAN CORPUSCULAR HEMOGLOBIN 24.1 PG (27.0-31.0); MEAN CORPUSCULAR HGB CONC 30.8 g/dL (33.0-36.5); MEAN CORPUSCULAR VOLUME 78.3 FL (78-98); MEAN PLATELET VOLUME 8.1 FL (7.4-10.4); MONOCYTES % (AUTO) 9.3 % (2-12); NEUTROPHILS # (AUTO) 8.7 X10'3 (1.8-7.7); NEUTROPHILS % (AUTO) 81.8 % (42-75); PLATELET COUNT 368 X10'3 (140-440); RED BLOOD COUNT 3.51 X10'6 (4.20-5.60); RED CELL DISTRIBUTION WIDTH 17.4 % (11.5-14.5); WHITE BLOOD COUNT 10.6 X10'3 (4.5-11.0)
[2020-08-03 06:20] LABS: ALBUMIN 2.1 G/DL (3.4-5.0); ANION GAP 7 (8-16); BLOOD UREA NITROGEN 16 MG/DL (7-18); BUN/CREATININE RATIO 13.1 (6.6-38.0); CHLORIDE 107 MMOL/L (99-107); CREATININE 1.22 MG/DL (0.40-0.90); GLUCOSE 80 MG/DL (70-104); POTASSIUM 4.1 MMOL/L (3.5-5.1); SODIUM 142 MMOL/L (135-145); TOTAL CARBON DIOXIDE 27.9 MMOL/L (24-32); eGFR 44 ML/MIN
--- NOTE | 2020-08-03 06:31 | NUR ---
Problems reprioritized. Patient report given, questions answered & plan of care reviewed with JASON fleming.
[2020-08-03 07:40] VITALS: BP 125/63
[2020-08-03] MEDS: furosemide 40mg/4ml inj IV SCH ×2 (08:40→19:53)
[2020-08-03] MEDS: HYDROcodone/acetaminophen 10/325mg tab PO PRN (08:40)
[2020-08-03] MEDS: enoxaparin 40mg/0.4ml syringe SUBCUT SCH (08:41)
[2020-08-03] MEDS: vancomycin/NS 1 GM ADD-VANTAGE 250 ML IV SCH ×2 (08:42→21:55)
[2020-08-03 11:00] VITALS: BP 103/64
[2020-08-03 18:00] VITALS: BP 129/60
--- NOTE | 2020-08-03 18:05 | NUR ---
Problems reprioritized. Patient report given, questions answered & plan of care reviewed with JASON Hansen.
--- NOTE | 2020-08-03 18:27 | NUR ---
Patient in room ESTEBAN 348. I have received report from Su GOMEZ and had the opportunity to ask questions and assume patient care.
[2020-08-03] MEDS: lactobacillus rhamnosus 10,000 MMU CELLS/CAPSULE PO SCH (19:53)
[2020-08-03] MEDS: acetaminophen 325mg tablet PO PRN (19:53)
[2020-08-04] VITALS: BP 112/58
[2020-08-04 05:09] LABS: BASOPHILS % (AUTO) 0.4 % (0-1); EOSINOPHILS # (AUTO) 0.1 X10'3 (0-0.9); EOSINOPHILS % (AUTO) 2.1 % (0-6); HEMATOCRIT 26.5 % (35.0-45.0); HEMOGLOBIN 8.1 g/dl (12.0-16.0); LYMPHOCYTES # (AUTO) 1.1 X10'3 (1.1-4.8); LYMPHOCYTES % (AUTO) 21.2 % (21-51); MEAN CORPUSCULAR HEMOGLOBIN 23.9 PG (27.0-31.0); MEAN CORPUSCULAR HGB CONC 30.7 g/dL (33.0-36.5); MEAN CORPUSCULAR VOLUME 77.7 FL (78-98); MONOCYTES # (AUTO) 0.7 X10'3 (0-0.9); MONOCYTES % (AUTO) 12.7 % (2-12); NEUTROPHILS # (AUTO) 3.3 X10'3 (1.8-7.7); NEUTROPHILS % (AUTO) 63.6 % (42-75); PLATELET COUNT 432 X10'3 (140-440); RED BLOOD COUNT 3.41 X10'6 (4.20-5.60); RED CELL DISTRIBUTION WIDTH 18.1 % (11.5-14.5); WHITE BLOOD COUNT 5.2 X10'3 (4.5-11.0)
[2020-08-04 05:17] LABS: ALBUMIN 1.9 G/DL (3.4-5.0); ANION GAP 7 (8-16); BLOOD UREA NITROGEN 21 MG/DL (7-18); CALCIUM 8.7 MG/DL (8.5-10.1); CHLORIDE 106 MMOL/L (99-107); CREATININE 1.31 MG/DL (0.40-0.90); GLUCOSE 79 MG/DL (70-104); POTASSIUM 3.8 MMOL/L (3.5-5.1); SODIUM 144 MMOL/L (135-145); TOTAL CARBON DIOXIDE 31.3 MMOL/L (24-32); eGFR 41 ML/MIN
--- NOTE | 2020-08-04 06:17 | NUR ---
Problems reprioritized. Patient report given, questions answered & plan of care reviewed with Chely GOMEZ.
--- NOTE | 2020-08-04 06:32 | NUR ---
Patient in room ESTEBAN 348. I have received report from JASON Hansen and had the opportunity to ask questions and assume patient care.
[2020-08-04 07:00] VITALS: BP 102/79
[2020-08-04] MEDS: enoxaparin 40mg/0.4ml syringe SUBCUT SCH (07:48)
[2020-08-04] MEDS: lactobacillus rhamnosus 10,000 MMU CELLS/CAPSULE PO SCH ×2 (07:48→19:47)
[2020-08-04] MEDS: furosemide 40mg/4ml inj IV SCH ×2 (07:49→19:47)
[2020-08-04] MEDS: acetaminophen 325mg tablet PO PRN ×2 (07:58→20:06)
[2020-08-04] MEDS ORDERED: VANCOMYCIN LEVEL IV ONE (08:30)
[2020-08-04] MEDS: vancomycin/NS 1 GM ADD-VANTAGE 250 ML IV SCH (09:00)
[2020-08-04 11:00] VITALS: BP 107/54
[2020-08-04] MEDS: vancomycin inj. 750 MG in normal saline 250ml IV soln 250 ML IV SCH ×2 (12:00→23:51)
[2020-08-04 12:30] VITALS: BP 141/70
[2020-08-04 18:00] VITALS: BP 117/61
--- NOTE | 2020-08-04 18:10 | NUR ---
Problems reprioritized. Patient report given, questions answered & plan of care reviewed with JASON Robbins.
--- NOTE | 2020-08-04 18:30 | NUR ---
Patient in room ESTEBAN 348. I have received report from Chely GOMEZ and had the opportunity to ask questions and assume patient care.
[2020-08-04] MEDS: HYDROcodone/acetaminophen 5mg/325mg tablet PO PRN (23:56)
[2020-08-05] VITALS: BP 141/70
--- NOTE | 2020-08-05 06:00 | NUR ---
Student documentation: I have reviewed and agree with all interventions, assessments performed and documented by ARMANI RODARTE. Student Medication Administration: For this medication-pass time frame, all medication were reviewed, dispensed, administered and documented per hospital policy by ARMANI RODARTE.
--- NOTE | 2020-08-05 06:20 | NUR ---
Patient in room ESTEBAN 348B. I have received report from JASON WYLIE and had the opportunity to ask questions and assume patient care.
--- NOTE | 2020-08-05 06:20 | NUR ---
Problems reprioritized. Patient report given, questions answered & plan of care reviewed with Pearl GOMEZ.
[2020-08-05 06:22] LABS: BASOPHILS % (AUTO) 0.4 % (0-1); EOSINOPHILS # (AUTO) 0.2 X10'3 (0-0.9); EOSINOPHILS % (AUTO) 4.9 % (0-6); HEMATOCRIT 28.2 % (35.0-45.0); HEMOGLOBIN 8.7 g/dl (12.0-16.0); LYMPHOCYTES % (AUTO) 26.1 % (21-51); MEAN CORPUSCULAR HEMOGLOBIN 23.7 PG (27.0-31.0); MEAN CORPUSCULAR HGB CONC 30.7 g/dL (33.0-36.5); MEAN CORPUSCULAR VOLUME 77.3 FL (78-98); MEAN PLATELET VOLUME 7.8 FL (7.4-10.4); MONOCYTES # (AUTO) 0.5 X10'3 (0-0.9); MONOCYTES % (AUTO) 12.6 % (2-12); NEUTROPHILS # (AUTO) 2.2 X10'3 (1.8-7.7); PLATELET COUNT 524 X10'3 (140-440); RED BLOOD COUNT 3.65 X10'6 (4.20-5.60); RED CELL DISTRIBUTION WIDTH 17.9 % (11.5-14.5); WHITE BLOOD COUNT 3.9 X10'3 (4.5-11.0)
[2020-08-05 06:23] LABS: ALBUMIN 2.1 G/DL (3.4-5.0); ANION GAP 4 (8-16); BLOOD UREA NITROGEN 18 MG/DL (7-18); BUN/CREATININE RATIO 16.5 (6.6-38.0); CHLORIDE 104 MMOL/L (99-107); CREATININE 1.09 MG/DL (0.40-0.90); GLUCOSE 85 MG/DL (70-104); POTASSIUM 3.5 MMOL/L (3.5-5.1); SODIUM 142 MMOL/L (135-145); TOTAL CARBON DIOXIDE 33.7 MMOL/L (24-32); eGFR 50 ML/MIN
[2020-08-05 07:00] VITALS: BP 172/83
[2020-08-05 11:00] VITALS: BP 137/72
[2020-08-05] MEDS: furosemide 40mg/4ml inj IV SCH ×2 (11:00→19:37)
[2020-08-05] MEDS: lactobacillus rhamnosus 10,000 MMU CELLS/CAPSULE PO SCH ×2 (11:00→19:37)
[2020-08-05] MEDS: enoxaparin 40mg/0.4ml syringe SUBCUT SCH (11:02)
[2020-08-05] MEDS: vancomycin inj. 750 MG in normal saline 250ml IV soln 250 ML IV SCH ×2 (13:30→23:40)
[2020-08-05] MEDS: HYDROcodone/acetaminophen 5mg/325mg tablet PO PRN (13:45)
--- NOTE | 2020-08-05 18:15 | NUR ---
Patient in room ESTEBAN 348. I have received report from Pearl GOMEZ and had the opportunity to ask questions and assume patient care.
[2020-08-05 19:00] VITALS: BP 118/57
--- NOTE | 2020-08-05 19:11 | NUR ---
Problems reprioritized. Patient report given, questions answered & plan of care reviewed with JASON WYLIE.
[2020-08-05] MEDS ORDERED: VANCOMYCIN LEVEL IV ONE (23:30)
[2020-08-06] VITALS: BP 135/73
--- NOTE | 2020-08-06 06:10 | NUR ---
Problems reprioritized. Patient report given, questions answered & plan of care reviewed with Nikki GOMEZ.
[2020-08-06 06:26] LABS: BASOPHILS % (AUTO) 0.4 % (0-1); EOSINOPHILS # (AUTO) 0.2 X10'3 (0-0.9); EOSINOPHILS % (AUTO) 3.9 % (0-6); HEMATOCRIT 29.4 % (35.0-45.0); HEMOGLOBIN 9.2 g/dl (12.0-16.0); LYMPHOCYTES % (AUTO) 22.4 % (21-51); MEAN CORPUSCULAR HEMOGLOBIN 24.2 PG (27.0-31.0); MEAN CORPUSCULAR HGB CONC 31.2 g/dL (33.0-36.5); MEAN CORPUSCULAR VOLUME 77.6 FL (78-98); MEAN PLATELET VOLUME 7.6 FL (7.4-10.4); MONOCYTES # (AUTO) 0.6 X10'3 (0-0.9); MONOCYTES % (AUTO) 13.2 % (2-12); NEUTROPHILS # (AUTO) 2.7 X10'3 (1.8-7.7); NEUTROPHILS % (AUTO) 60.1 % (42-75); PLATELET COUNT 571 X10'3 (140-440); RED BLOOD COUNT 3.78 X10'6 (4.20-5.60); RED CELL DISTRIBUTION WIDTH 17.9 % (11.5-14.5); WHITE BLOOD COUNT 4.4 X10'3 (4.5-11.0)
[2020-08-06 06:43] LABS: ALBUMIN 2.2 G/DL (3.4-5.0); ANION GAP 6 (8-16); BLOOD UREA NITROGEN 18 MG/DL (7-18); BUN/CREATININE RATIO 15.3 (6.6-38.0); CHLORIDE 102 MMOL/L (99-107); CREATININE 1.18 MG/DL (0.40-0.90); GLUCOSE 87 MG/DL (70-104); POTASSIUM 3.6 MMOL/L (3.5-5.1); SODIUM 143 MMOL/L (135-145); TOTAL CARBON DIOXIDE 35.2 MMOL/L (24-32); eGFR 46 ML/MIN
--- NOTE | 2020-08-06 06:44 | NUR ---
Patient in room ESTEBAN 348. I have received report from Itzel GOMEZ and had the opportunity to ask questions and assume patient care.
[2020-08-06 07:10] VITALS: BP 150/78
[2020-08-06] MEDS: lactobacillus rhamnosus 10,000 MMU CELLS/CAPSULE PO SCH ×2 (07:41→19:40)
[2020-08-06] MEDS: furosemide 40mg/4ml inj IV SCH ×2 (07:41→19:40)
[2020-08-06] MEDS: enoxaparin 40mg/0.4ml syringe SUBCUT SCH (07:41)
[2020-08-06] MEDS: HYDROcodone/acetaminophen 10/325mg tab PO PRN (11:31)
[2020-08-06 11:44] VITALS: BP 158/83
[2020-08-06] MEDS: vancomycin/NS 1 GM ADD-VANTAGE 250 ML IV SCH (12:39)
[2020-08-06 14:46] LABS: ANISOCYTOSIS 1+; HYPOCHROMASIA 1+; MICROCYTOSIS 1+; PLATELET ESTIMATE INCREASED; POLYCHROMASIA FEW; STOMATOCYTES 2+; TEAR DROP CELLS FEW
[2020-08-06 18:00] VITALS: BP 126/73
--- NOTE | 2020-08-06 18:15 | NUR ---
Patient in room ESTEBAN 348B. I have received report from JASON Jordan and had the opportunity to ask questions and assume patient care.
--- NOTE | 2020-08-06 18:39 | NUR ---
Problems reprioritized. Patient report given, questions answered & plan of care reviewed with Chani GOMEZ.
[2020-08-06] MEDS: HYDROcodone/acetaminophen 5mg/325mg tablet PO PRN (19:41)
[2020-08-07] VITALS: BP 136/78
[2020-08-07 05:44] LABS: ALBUMIN 2.3 G/DL (3.4-5.0); ANION GAP 4 (8-16); BLOOD UREA NITROGEN 19 MG/DL (7-18); BUN/CREATININE RATIO 14.8 (6.6-38.0); CALCIUM 9.1 MG/DL (8.5-10.1); CHLORIDE 101 MMOL/L (99-107); CREATININE 1.28 MG/DL (0.40-0.90); GLUCOSE 96 MG/DL (70-104); POTASSIUM 3.7 MMOL/L (3.5-5.1); SODIUM 142 MMOL/L (135-145); TOTAL CARBON DIOXIDE 37.4 MMOL/L (24-32); eGFR 42 ML/MIN
[2020-08-07 05:50] LABS: EOSINOPHILS # (AUTO) 0.2 X10'3 (0-0.9); HEMATOCRIT 30.6 % (35.0-45.0); HEMOGLOBIN 9.6 g/dl (12.0-16.0); LYMPHOCYTES # (AUTO) 1.1 X10'3 (1.1-4.8); MEAN CORPUSCULAR HEMOGLOBIN 24.4 PG (27.0-31.0); NEUTROPHILS # (AUTO) 2.6 X10'3 (1.8-7.7); WHITE BLOOD COUNT 4.5 X10'3 (4.5-11.0)
[2020-08-07 05:52] LABS: BASOPHILS % (AUTO) 0.6 % (0-1); EOSINOPHILS % (AUTO) 4.3 % (0-6); LYMPHOCYTES % (AUTO) 24.2 % (21-51); MEAN CORPUSCULAR HGB CONC 31.5 g/dL (33.0-36.5); MEAN CORPUSCULAR VOLUME 77.5 FL (78-98); MEAN PLATELET VOLUME 7.6 FL (7.4-10.4); MONOCYTES # (AUTO) 0.6 X10'3 (0-0.9); MONOCYTES % (AUTO) 13.6 % (2-12); NEUTROPHILS % (AUTO) 57.3 % (42-75); PLATELET COUNT 611 X10'3 (140-440); RED BLOOD COUNT 3.95 X10'6 (4.20-5.60); RED CELL DISTRIBUTION WIDTH 17.5 % (11.5-14.5)
--- NOTE | 2020-08-07 06:08 | NUR ---
Problems reprioritized. Patient report given, questions answered & plan of care reviewed with JASON Denton.
--- NOTE | 2020-08-07 06:36 | NUR ---
Patient in room ESTEBAN 348. I have received report from SRINATH WOODARD RN and had the opportunity to ask questions and assume patient care.
[2020-08-07] MEDS: furosemide 40mg/4ml inj IV SCH ×2 (07:19→19:33)
[2020-08-07] MEDS: lactobacillus rhamnosus 10,000 MMU CELLS/CAPSULE PO SCH ×2 (07:19→19:33)
[2020-08-07] MEDS: enoxaparin 40mg/0.4ml syringe SUBCUT SCH (07:20)
[2020-08-07 07:56] LABS: ANISOCYTOSIS 1+; HYPOCHROMASIA 1+; MICROCYTOSIS 1+; PLATELET ESTIMATE INCREASED; POLYCHROMASIA FEW; TOTAL CELLS COUNTED 100
[2020-08-07 07:57] LABS: STOMATOCYTES 2+; TEAR DROP CELLS FEW
[2020-08-07 09:23] VITALS: BP 147/91
--- NOTE | 2020-08-07 10:15 | NUR ---
Dr. Malik aware of patient HR of 110, no orders given.
--- NOTE | 2020-08-07 11:11 | NUR ---
Initial: Pt admit with BLE cellulitis secondary to MRSA with concern for possible acute on chronic cor pulmonale. Pt eating well on a heart healthy diet documented with 75-100% PO intake. LBM 08/04, with PRN bowel care available. D/w dietary to send prunes with next meal to assist with bowel regularity. Will continue to follow and monitor need for further nutrition intervention. Recommendations: 1) Continue heart healthy diet 2) Routine bowel care 3) Scaled weights per rx Addendum: 08/07/20 at [address] Amended: Links added.
[2020-08-07 11:24] VITALS: BP 163/99
--- NOTE | 2020-08-07 11:34 | NUR ---
Student documentation: I have reviewed and agree with all interventions, assessments performed and documented by Judson, psychiatric nursing assistant.
--- NOTE | 2020-08-07 11:36 | NUR ---
Student Medication Administration: For this medication-pass time frame, all medication were reviewed, dispensed, administered and documented per hospital policy by katelyn Roper.
[2020-08-07] MEDS: vancomycin/NS 1 GM ADD-VANTAGE 250 ML IV SCH (12:11)
[2020-08-07] MEDS: HYDROcodone/acetaminophen 10/325mg tab PO PRN (16:08)
--- NOTE | 2020-08-07 17:26 | NUR ---
Large and formed Addendum: 08/07/20 at 1726 by Judson VERDIN Amended: Links added.
--- NOTE | 2020-08-07 17:47 | NUR ---
Problems reprioritized. Patient report given, questions answered & plan of care reviewed with Corrie ALEGRE RN.
--- NOTE | 2020-08-07 18:16 | NUR ---
Patient in room ESTEBAN 348B. I have received report from JASON Denton and had the opportunity to ask questions and assume patient care.
--- NOTE | 2020-08-07 18:21 | NUR ---
Problems reprioritized. Patient report given, questions answered & plan of care reviewed with Chani GOMEZ.
[2020-08-07] MEDS: mineral oil/petrolatum, white cream 113gm jar TP SCH (19:33)
[2020-08-07 20:00] VITALS: BP 111/50
[2020-08-08] VITALS: BP 151/89
[2020-08-08] MEDS: HYDROcodone/acetaminophen 10/325mg tab PO PRN (05:36)
--- NOTE | 2020-08-08 06:10 | NUR ---
Problems reprioritized. Patient report given, questions answered & plan of care reviewed with JASON Lopez.
--- NOTE | 2020-08-08 06:30 | NUR ---
Patient in room ESTEBAN 348. I have received report from Chani GOMEZ and had the opportunity to ask questions and assume patient care.
[2020-08-08 08:00] VITALS: BP 125/61
[2020-08-08] MEDS: lactobacillus rhamnosus 10,000 MMU CELLS/CAPSULE PO SCH ×2 (09:32→19:54)
[2020-08-08] MEDS: furosemide 40mg/4ml inj IV SCH ×3 (09:32→20:00)
[2020-08-08] MEDS: enoxaparin 40mg/0.4ml syringe SUBCUT SCH (09:33)
[2020-08-08] MEDS: mineral oil/petrolatum, white cream 113gm jar TP SCH ×2 (09:33→19:54)
[2020-08-08 11:00] VITALS: BP 122/59
[2020-08-08] MEDS: vancomycin/NS 1 GM ADD-VANTAGE 250 ML IV SCH (14:07)
[2020-08-08] MEDS: HYDROcodone/acetaminophen 5mg/325mg tablet PO PRN (14:07)
--- NOTE | 2020-08-08 18:09 | NUR ---
Problems reprioritized. Patient report given, questions answered & plan of care reviewed with Archana GOMEZ.
[2020-08-08 18:15] VITALS: BP 109/85
--- NOTE | 2020-08-08 18:31 | NUR ---
Patient in room ESTEBAN 348. I have received report from JASON Lopez and had the opportunity to ask questions and assume patient care.
[2020-08-08] MEDS ORDERED: furosemide 20MG tablet PO ONE (22:35)
[2020-08-09] MEDS: acetaminophen 325mg tablet PO PRN ×2 (00:04→10:19)
[2020-08-09 00:15] VITALS: BP 128/62
--- NOTE | 2020-08-09 06:30 | NUR ---
Problems reprioritized. Patient report given, questions answered & plan of care reviewed with Pearl Osorio RN.
--- NOTE | 2020-08-09 06:38 | NUR ---
Patient in room ESTEBAN 348B. I have received report from JASON STINSON and had the opportunity to ask questions and assume patient care.
[2020-08-09 07:00] VITALS: BP 133/75
[2020-08-09] MEDS: furosemide 40mg/4ml inj IV SCH ×2 (10:17→20:27)
[2020-08-09] MEDS: lactobacillus rhamnosus 10,000 MMU CELLS/CAPSULE PO SCH ×2 (10:17→20:26)
[2020-08-09] MEDS: mineral oil/petrolatum, white cream 113gm jar TP SCH ×2 (10:18→20:34)
[2020-08-09] MEDS: enoxaparin 40mg/0.4ml syringe SUBCUT SCH (10:18)
[2020-08-09 11:00] VITALS: BP 148/81
[2020-08-09] MEDS ORDERED: VANCOMYCIN LEVEL IV ONE (11:30)
--- NOTE | 2020-08-09 11:54 | NUR ---
[facility] 21.3 [phone], PAGED AWAITING CALL BACK
[2020-08-09] MEDS: VANCOMYCIN 750MG IV in NS 250 ML IV SCH (13:54)
[2020-08-09 18:00] VITALS: BP 150/70
--- NOTE | 2020-08-09 18:57 | NUR ---
Problems reprioritized. Patient report given, questions answered & plan of care reviewed with THANIA MONTEIRO RN.
--- NOTE | 2020-08-09 18:58 | NUR ---
Patient in room ESTEBAN 348. I have received report from NASEEM GOMEZ and had the opportunity to ask questions and assume patient care.
[2020-08-09 23:29] VITALS: BP 149/73
--- NOTE | 2020-08-10 06:36 | NUR ---
Problems reprioritized. Patient report given, questions answered & plan of care reviewed with NIKIA GOMEZ.
--- NOTE | 2020-08-10 06:50 | NUR ---
Patient in room ESTEBAN 348. I have received report from rosita becker rn and had the opportunity to ask questions and assume patient care.
[2020-08-10 08:00] VITALS: BP 134/77
[2020-08-10] MEDS: lactobacillus rhamnosus 10,000 MMU CELLS/CAPSULE PO SCH (08:04)
[2020-08-10] MEDS: furosemide 40mg/4ml inj IV SCH (08:04)
[2020-08-10] MEDS: mineral oil/petrolatum, white cream 113gm jar TP SCH (08:05)
[2020-08-10] MEDS: enoxaparin 40mg/0.4ml syringe SUBCUT SCH (08:05)
[2020-08-10 09:54] LABS: BASOPHILS % (AUTO) 0.3 % (0-1); EOSINOPHILS # (AUTO) 0.2 X10'3 (0-0.9); EOSINOPHILS % (AUTO) 2.3 % (0-6); HEMATOCRIT 32.1 % (35.0-45.0); HEMOGLOBIN 9.7 g/dl (12.0-16.0); LYMPHOCYTES # (AUTO) 1.3 X10'3 (1.1-4.8); LYMPHOCYTES % (AUTO) 18.8 % (21-51); MEAN CORPUSCULAR HEMOGLOBIN 23.4 PG (27.0-31.0); MEAN CORPUSCULAR HGB CONC 30.3 g/dL (33.0-36.5); MEAN CORPUSCULAR VOLUME 77.3 FL (78-98); MEAN PLATELET VOLUME 7.5 FL (7.4-10.4); MONOCYTES # (AUTO) 0.7 X10'3 (0-0.9); MONOCYTES % (AUTO) 10.5 % (2-12); NEUTROPHILS # (AUTO) 4.6 X10'3 (1.8-7.7); NEUTROPHILS % (AUTO) 68.1 % (42-75); PLATELET COUNT 622 X10'3 (140-440); RED BLOOD COUNT 4.15 X10'6 (4.20-5.60); RED CELL DISTRIBUTION WIDTH 17.9 % (11.5-14.5); WHITE BLOOD COUNT 6.8 X10'3 (4.5-11.0)
[2020-08-10 10:08] LABS: ALANINE AMINOTRANSFERASE 17 U/L (12-78); ALBUMIN 2.6 G/DL (3.4-5.0); ALBUMIN/GLOBULIN RATIO 0.6 (1.1-1.5); ALKALINE PHOSPHATASE 146 IU/L (46-116); ANION GAP 4 (8-16); ASPARTATE AMINO TRANSFERASE 12 U/L (10-37); BILIRUBIN,TOTAL 0.2 MG/DL (0.1-1.0); BLOOD UREA NITROGEN 23 MG/DL (7-18); CALCIUM 8.7 MG/DL (8.5-10.1); CHLORIDE 100 MMOL/L (99-107); CREATININE 1.64 MG/DL (0.40-0.90); GLUCOSE 155 MG/DL (70-104); MAGNESIUM 2.5 MG/DL (1.5-2.4); PHOSPHORUS 3.5 MG/DL (2.3-4.5); POTASSIUM 3.8 MMOL/L (3.5-5.1); SODIUM 139 MMOL/L (135-145); TOTAL CARBON DIOXIDE 34.7 MMOL/L (24-32); TOTAL PROTEIN 7.2 G/DL (6.4-8.2); eGFR 31 ML/MIN
[2020-08-10 10:22] LABS: TOTAL CELLS COUNTED 100
[2020-08-10 10:23] LABS: PLATELET ESTIMATE INCREASED
[2020-08-10 10:24] LABS: ANISOCYTOSIS 1+; HYPOCHROMASIA 1+; MICROCYTOSIS 1+; POLYCHROMASIA 1+; STOMATOCYTES 2+; TEAR DROP CELLS FEW
[2020-08-10 11:51] VITALS: BP 145/82
[2020-08-10] MEDS: VANCOMYCIN 750MG IV in NS 250 ML IV SCH (13:06)
[2020-08-10] MEDS ORDERED: FURO20TA4 PO (15:49)
[2020-08-10] MEDS ORDERED: POTA10TA36 PO (15:49)
[2020-08-10] MEDS ORDERED: CEPH500C5 PO (15:49)
--- NOTE | 2020-08-10 19:02 | NUR ---
Problems reprioritized. Patient report given, questions answered & plan of care reviewed with rosita becker rn.
--- NOTE | 2020-08-10 19:03 | NUR ---
Patient in room ESTEBAN 348. I have received report from NIKIA GOMEZ and had the opportunity to ask questions and assume patient care.
--- NOTE | 2020-08-10 19:04 | NUR ---
PATIENT READY FOR DISCHARGE AWAITING CAB FOR AUTOMOBILE ACCESSORIES INSTALLER. DISCHARGE PAPER ALREADY GIVEN TO PATIENT BY AM NURSE NIKIA GOMEZ AND SIGNED.
--- NOTE | 2020-08-10 19:18 | NUR ---
PATIENT LEFT FOR DISCHARGE HOME WITH A CAB IN A WHEELCHAIR WITH STAFF TO THE FRONT DOOR.
[2020-08-12] MEDS ORDERED: VANCOMYCIN LEVEL IV ONE (12:30)
== END 2020-08-10 19:17 | disposition home or self-care (01) | DRG 134 ==
LOC: ER 10:07 → ED HOLD 13:55 → SUR 3N 19:37
PROVIDERS: ADMIT Internal Medicine; ATTEND Internal Medicine
DX: I26.09 Other pulmonary embolism with acute cor pulmonale (principal); L03.115 Cellulitis of right lower limb; I50.33 Acute on chronic diastolic (congestive) heart failure; I11.0 Hypertensive heart disease with heart failure; E66.01 Morbid (severe) obesity due to excess calories; R06.03 Acute respiratory distress; L03.116 Cellulitis of left lower limb; J44.9 Chronic obstructive pulmonary disease, unspecified; D64.9 Anemia, unspecified; F20.9 Schizophrenia, unspecified; Z68.41 Body mass index [BMI] 40.0-44.9, adult; Z87.891 Personal history of nicotine dependence; Z86.73 Personal history of transient ischemic attack (TIA), and cerebral infarction without residual deficits; Z22.322 Carrier or suspected carrier of Methicillin resistant Staphylococcus aureus
CPT/HCPCS: 36415; 71045; 74176; 76937; 80048; 80053; 80202; 80305; 81003; 83605; 83735; 83880; 84100; 84145; 84443; 85007; 85008; 85025; 87040; 87070; 87077; 87081; 87186; 93922; 93925; 93970; 96365; 97110; 97116; 97161; 97530; 99285; G0378; J0696; J1650; J1940; J2543; J3370; J7040; J7050; J7512

== ENCOUNTER 2020-08-17 06:07 | Emergency (ER) | payer MEDICAID ==
[~2020-08-17] VITALS: Ht 165.1 cm; Wt 115.0 kg
[~2020-08-17 06:07] MED LIST changes: +CEPH500C5 PO; +FURO20TA4 PO; -LISI-600 PO; +POTA10TA36 PO; -PRED10TA PO
[2020-08-17 08:35] LABS: BASOPHILS # (AUTO) 0.1 X10'3 (0-0.2); BASOPHILS % (AUTO) 0.8 % (0-1); EOSINOPHILS # (AUTO) 0.1 X10'3 (0-0.9); EOSINOPHILS % (AUTO) 0.9 % (0-6); HEMATOCRIT 29.9 % (35.0-45.0); LYMPHOCYTES % (AUTO) 10.2 % (21-51); MEAN CORPUSCULAR HEMOGLOBIN 23.4 PG (27.0-31.0); MEAN CORPUSCULAR HGB CONC 30.2 g/dL (33.0-36.5); MEAN CORPUSCULAR VOLUME 77.4 FL (78-98); MEAN PLATELET VOLUME 8.1 FL (7.4-10.4); MONOCYTES % (AUTO) 9.5 % (2-12); NEUTROPHILS # (AUTO) 7.8 X10'3 (1.8-7.7); NEUTROPHILS % (AUTO) 78.6 % (42-75); PLATELET COUNT 571 X10'3 (140-440); RED BLOOD COUNT 3.86 X10'6 (4.20-5.60); RED CELL DISTRIBUTION WIDTH 18.2 % (11.5-14.5)
[2020-08-17 08:48] LABS: ALANINE AMINOTRANSFERASE 19 U/L (12-78); ALBUMIN 2.4 G/DL (3.4-5.0); ALBUMIN/GLOBULIN RATIO 0.5 (1.1-1.5); ALKALINE PHOSPHATASE 134 IU/L (46-116); ANION GAP 7 (8-16); ASPARTATE AMINO TRANSFERASE 14 U/L (10-37); BILIRUBIN,TOTAL 0.2 MG/DL (0.1-1.0); BLOOD UREA NITROGEN 21 MG/DL (7-18); BUN/CREATININE RATIO 16.4 (6.6-38.0); CALCIUM 8.9 MG/DL (8.5-10.1); CHLORIDE 110 MMOL/L (99-107); CREATININE 1.28 MG/DL (0.40-0.90); GLUCOSE 91 MG/DL (70-104); POTASSIUM 4.4 MMOL/L (3.5-5.1); SODIUM 147 MMOL/L (135-145); TOTAL CARBON DIOXIDE 30.1 MMOL/L (24-32); TOTAL PROTEIN 6.9 G/DL (6.4-8.2); eGFR 42 ML/MIN
[2020-08-17 08:56] LABS: MAGNESIUM 2.3 MG/DL (1.5-2.4)
--- NOTE | 2020-08-17 09:49 | NUR ---
socia service at bedside.
--- NOTE | 2020-08-17 11:26 | NUR ---
pt working with the pt.
[2020-08-17] MEDS ORDERED: mupirocin 2% ointment 22GM TP ONE (11:35)
[2020-08-17] MEDS ORDERED: ondansetron 4mg rapidly disintigrating tab PO ONE (11:35)
[2020-08-17] MEDS ORDERED: morphine 4 MG/ML inj SYRINge IM ONE (11:35)
--- NOTE | 2020-08-17 12:55 | NUR ---
SPOKE TO CANDICE REPACKER STATED THAT TO CALL [employer]EN[employer] PEER SUPPORT PERSON FOR PICKING UP PT NO [phone] WHEN PT GET D/C.IF NO ONE AVAILABLE TO PICK UPPT THEN CALL CALL [facility].ANOTHER PERSON AVAILABLE JANET WHO CAN ICE BAG ASSEMBLER BUT CANDICE DOES NOT HAVE MORE INFORM.
--- NOTE | 2020-08-17 12:59 | NUR ---
CALLED TONY [employer]BOT ON [phone] TO DEBATE DIRECTOR PT BUT SHE STATED TAHT SHE IS IN [place] BUT JANET FROM [employer] CAN DEBATE DIRECTOR PT.PHONE NO [phone].
--- NOTE | 2020-08-17 13:02 | NUR ---
CALLED JANET TO DYE MIXER PT ON [phone]. PER JANET SHE WILL BE HERE IN 15 MINS.
[2020-08-17 13:16] VITALS: BP 124/75
--- NOTE | 2020-08-17 14:14 | NUR ---
called laura 3 times has not responded back voice msg not stepup ,guzman have not lft msg.also called zoila twice she is always not responded.
--- NOTE | 2020-08-17 14:20 | NUR ---
called namrata as per her laura came to picker and sorter load and unload pt but no one has brought the pt outside asked whether laura came to er screener to ask about pt as per lizz cummings she do not know as per her they can't picker and sorter load and unload pt as zoila ott is in [place] and laura has to be with other client .notified iris anna and informed as per kamala we can call [facility] for transportation but pt live byherself at home and pt is lethargic and not moving around ,laying in bed since am . pt need assistance ,as per shoshana daniels social service.notified patti ascencio repair clerk.
--- NOTE | 2020-08-17 15:34 | NUR ---
AYE WAS CALLED FOR PT TO GIVE HER A RIDE HOME. PT WAS ASSISTED OUT OF ER WITH WALKER TO [facility]YE. PT HAD STEADY GAIT WITH WALKER.
== END 2020-08-17 15:35 | disposition home or self-care (01) ==
LOC: ER 06:07
DX: S81.802A Unspecified open wound, left lower leg, initial encounter (principal); S81.801A Unspecified open wound, right lower leg, initial encounter; R60.0 Localized edema; I50.9 Heart failure, unspecified; J44.9 Chronic obstructive pulmonary disease, unspecified; F20.9 Schizophrenia, unspecified; Z86.73 Personal history of transient ischemic attack (TIA), and cerebral infarction without residual deficits; Z60.2 Problems related to living alone; Z88.8 Allergy status to other drugs, medicaments and biological substances; Z79.899 Other long term (current) drug therapy; W18.39XA Other fall on same level, initial encounter; Y93.89 Activity, other specified; Y92.89 Other specified places as the place of occurrence of the external cause; Y99.8 Other external cause status
CPT/HCPCS: 36415; 70450; 71045; 80053; 83735; 83880; 84145; 84484; 85025; 93005; 96372; 97110; 97116; 97161; 99285; J2270

== ENCOUNTER 2020-08-20 13:40 | Outpatient (CLI) | payer MEDICAID ==
[2020-08-20] MEDS ORDERED: gentamicin 0.1% topical ointment 15gm TP ONE (15:01)
== END 2020-08-20 23:59 | disposition home or self-care (01) ==
LOC: WOUND CARE 13:40
PROVIDERS: ATTEND Nurse Practitioner Family
DX: L97.821 Non-pressure chronic ulcer of other part of left lower leg limited to breakdown of skin (principal); L97.512 Non-pressure chronic ulcer of other part of right foot with fat layer exposed; L97.221 Non-pressure chronic ulcer of left calf limited to breakdown of skin; L97.212 Non-pressure chronic ulcer of right calf with fat layer exposed; I87.8 Other specified disorders of veins; I12.9 Hypertensive chronic kidney disease with stage 1 through stage 4 chronic kidney disease, or unspecified chronic kidney disease; N18.9 Chronic kidney disease, unspecified; E66.01 Morbid (severe) obesity due to excess calories; J44.9 Chronic obstructive pulmonary disease, unspecified; K21.9 Gastro-esophageal reflux disease without esophagitis; I50.23 Acute on chronic systolic (congestive) heart failure; G93.41 Metabolic encephalopathy; J96.01 Acute respiratory failure with hypoxia; F32.9 Major depressive disorder, single episode, unspecified; F40.240 Claustrophobia; F41.9 Anxiety disorder, unspecified; F20.9 Schizophrenia, unspecified; Z85.828 Personal history of other malignant neoplasm of skin; Z86.14 Personal history of Methicillin resistant Staphylococcus aureus infection; Z86.73 Personal history of transient ischemic attack (TIA), and cerebral infarction without residual deficits; Z79.899 Other long term (current) drug therapy; Z68.41 Body mass index [BMI] 40.0-44.9, adult; Z87.891 Personal history of nicotine dependence
CPT/HCPCS: G0463

== ENCOUNTER 2020-08-27 20:26 | Inpatient (IN) | payer MEDICAID ==
[~2020-08-27] VITALS: Ht 165.1 cm; Wt 90.0 kg
[2020-08-27] MEDS ORDERED: furosemide 10 MG/1 ML 10ml inj IV ONE (20:35)
[2020-08-27] MEDS ORDERED: morphine 4 MG/ML inj SYRINge IV ONE (20:40)
[2020-08-27] MEDS ORDERED: vancomycin/NS 1 GM ADD-VANTAGE 250 ML IV ONE (20:40)
[2020-08-27] MEDS ORDERED: piperacillin/tazo 3.375gm/50ml 50 ML IV ONE (20:40)
[2020-08-27] MEDS ORDERED: normal saline 1000ML IV soln IV ONE (20:40)
[2020-08-27 20:55] LABS: BASOPHILS # (AUTO) 0.1 X10'3 (0-0.2); EOSINOPHILS # (AUTO) 0.3 X10'3 (0-0.9); EOSINOPHILS % (AUTO) 2.2 % (0-6); HEMATOCRIT 28.6 % (35.0-45.0); HEMOGLOBIN 8.8 g/dl (12.0-16.0); LYMPHOCYTES # (AUTO) 1.5 X10'3 (1.1-4.8); LYMPHOCYTES % (AUTO) 13.1 % (21-51); MEAN CORPUSCULAR HEMOGLOBIN 23.5 PG (27.0-31.0); MEAN CORPUSCULAR HGB CONC 30.9 g/dL (33.0-36.5); MEAN PLATELET VOLUME 7.2 FL (7.4-10.4); MONOCYTES # (AUTO) 1.1 X10'3 (0-0.9); MONOCYTES % (AUTO) 9.3 % (2-12); NEUTROPHILS # (AUTO) 8.7 X10'3 (1.8-7.7); NEUTROPHILS % (AUTO) 74.4 % (42-75); PLATELET COUNT 453 X10'3 (140-440); RED BLOOD COUNT 3.76 X10'6 (4.20-5.60); RED CELL DISTRIBUTION WIDTH 18.5 % (11.5-14.5); WHITE BLOOD COUNT 11.7 X10'3 (4.5-11.0)
[2020-08-27 21:07] LABS: ALBUMIN 2.2 G/DL (3.4-5.0); ANION GAP 10 (8-16); BILIRUBIN,TOTAL 0.2 MG/DL (0.1-1.0); BLOOD UREA NITROGEN 18 MG/DL (7-18); BUN/CREATININE RATIO 16.4 (6.6-38.0); CHLORIDE 111 MMOL/L (99-107); GLUCOSE 93 MG/DL (70-104); POTASSIUM 4.1 MMOL/L (3.5-5.1); SODIUM 144 MMOL/L (135-145); TOTAL CARBON DIOXIDE 22.8 MMOL/L (24-32); TOTAL PROTEIN 7.3 G/DL (6.4-8.2); eGFR 50 ML/MIN
[2020-08-27 21:08] LABS: ALANINE AMINOTRANSFERASE 41 U/L (12-78); ALBUMIN/GLOBULIN RATIO 0.4 (1.1-1.5); ALKALINE PHOSPHATASE 184 IU/L (46-116); ASPARTATE AMINO TRANSFERASE 20 U/L (10-37)
[2020-08-27 21:11] LABS: ANISOCYTOSIS 2+; ELLIPTOCYTES FEW; PLATELET ESTIMATE INCREASED; TOTAL CELLS COUNTED 100
[2020-08-27 21:14] LABS: C-REACTIVE PROTEIN 10.93 MG/DL (0.0-0.5)
[2020-08-27] MEDS ORDERED: metoprolol tartrate 1mg/ml inj IV ONE (21:25)
[2020-08-27] MEDS ORDERED: vancomycin inj 1,000 MG in normal saline 250ml IV soln 250 ML IV ONE (21:55)
[2020-08-27] MEDS ORDERED: magnesium 4gm in 100ml NS 100 ML IV PRN (22:00)
[2020-08-27] MEDS ORDERED: mag hydrox/Alum hydrox/simeth 30ml oral suspension PO PRN (22:00)
[2020-08-27] MEDS ORDERED: HYDROmorphone 1 mg/ml syringe IV PRN (22:00)
[2020-08-27] MEDS ORDERED: ondansetron/PF 4mg/2ml inj IV PRN (22:00)
[2020-08-27] MEDS ORDERED: magnesium 2GM in 50ml NS 50 ML IV PRN (22:00)
[2020-08-27] MEDS ORDERED: potassium Cl 20 mEq SR tablet PO PRN ×2 (22:00)
[2020-08-27] MEDS ORDERED: potassium CL 10mEq/100ml bag 100 ML IV PRN ×2 (22:00)
[2020-08-27] MEDS ORDERED: acetaminophen 325mg tablet PO PRN (22:00)
[2020-08-27] MEDS ORDERED: morphine 4 MG/ML inj SYRINge IV STA (22:13)
--- NOTE | 2020-08-27 22:14 | NUR ---
Pt states she is still in pain. Dr. Mcelroy at bedside to look at patients wound. Verbal order for 4mg morphine IVP now.
--- NOTE | 2020-08-28 00:20 | NUR ---
Pt resting on gurney with eyes closed. Pt awakens to voice, denies any requests at this time.
--- NOTE | 2020-08-28 02:37 | NUR ---
PATIENT TRANSFERRED TO HOSPITAL BED FOR COMFORT
[2020-08-28] MEDS: ipratropium 0.5 MG/2.5ML nebule IH SCH ×6 (03:17→23:04)
--- NOTE | 2020-08-28 04:00 | NUR ---
LAKESHA VÁZQUEZ, AWARE OF PATIENTS ELEVATED HR 124, NO TX AT THIS TIME
--- NOTE | 2020-08-28 07:31 | NUR ---
JASON BURCIAGA FROM WOUND CARE (EXT. [id number]) CALLED TO INQUIRE IF PATIENT WAS BEING ADMITTED INPATIENT AND ASSIGNED ROOM NUMBER. WOUND CARE WOULD LIKE TO BE NOTIFIED OF ROOM NUMBER WHEN IT IS ASSIGNED.
[2020-08-28] MEDS ORDERED: vancomycin/NS 1 GM ADD-VANTAGE 250 ML IV SCH (08:00)
[2020-08-28] MEDS: K and/or MAG REPLACEMENT MC SCH ×2 (08:00→20:00)
[2020-08-28] MEDS: doxycycline inj 100 MG in normal saline 100ml IV soln 100 ML IV SCH ×2 (08:46→20:00)
[2020-08-28] MEDS: furosemide 20 MG/2 ML vial IV SCH ×2 (08:46→20:00)
[2020-08-28] MEDS: fluconazole-Diflucan 200mg/NS 100 ML IV SCH (08:46)
[2020-08-28] MEDS: docusate sod 100mg capsule PO SCH ×2 (08:49→20:00)
[2020-08-28 09:00] LABS: BASOPHILS # (AUTO) 0.1 X10'3 (0-0.2); BASOPHILS % (AUTO) 0.5 % (0-1); EOSINOPHILS # (AUTO) 0.1 X10'3 (0-0.9); EOSINOPHILS % (AUTO) 0.7 % (0-6); HEMATOCRIT 25.9 % (35.0-45.0); HEMOGLOBIN 8.1 g/dl (12.0-16.0); LYMPHOCYTES # (AUTO) 0.7 X10'3 (1.1-4.8); LYMPHOCYTES % (AUTO) 6.9 % (21-51); MEAN CORPUSCULAR HEMOGLOBIN 23.7 PG (27.0-31.0); MEAN CORPUSCULAR HGB CONC 31.2 g/dL (33.0-36.5); MEAN CORPUSCULAR VOLUME 76.1 FL (78-98); MEAN PLATELET VOLUME 7.3 FL (7.4-10.4); MONOCYTES # (AUTO) 1.2 X10'3 (0-0.9); MONOCYTES % (AUTO) 11.5 % (2-12); NEUTROPHILS # (AUTO) 8.4 X10'3 (1.8-7.7); NEUTROPHILS % (AUTO) 80.4 % (42-75); PLATELET COUNT 395 X10'3 (140-440); RED CELL DISTRIBUTION WIDTH 18.5 % (11.5-14.5); WHITE BLOOD COUNT 10.5 X10'3 (4.5-11.0)
[2020-08-28 09:10] LABS: ALANINE AMINOTRANSFERASE 35 U/L (12-78); ALBUMIN 1.8 G/DL (3.4-5.0); ALBUMIN/GLOBULIN RATIO 0.4 (1.1-1.5); ALKALINE PHOSPHATASE 159 IU/L (46-116); ANION GAP 9 (8-16); ASPARTATE AMINO TRANSFERASE 33 U/L (10-37); BILIRUBIN,TOTAL 0.3 MG/DL (0.1-1.0); BLOOD UREA NITROGEN 17 MG/DL (7-18); BUN/CREATININE RATIO 15.6 (6.6-38.0); CALCIUM 8.7 MG/DL (8.5-10.1); CHLORIDE 113 MMOL/L (99-107); CHOL/HDL RATIO 2.4 (0.00-4.99); CHOLESTEROL 134 MG/DL (0-200); CREATININE 1.09 MG/DL (0.40-0.90); GLUCOSE 75 MG/DL (70-104); HDL CHOLESTEROL 55 MG/DL (35-60); LDL CHOLESTEROL 77 MG/DL (50-100); MAGNESIUM 2.1 MG/DL (1.5-2.4); POTASSIUM 4.1 MMOL/L (3.5-5.1); SODIUM 147 MMOL/L (135-145); TOTAL PROTEIN 6.4 G/DL (6.4-8.2); TRIGLYCERIDES 52 MG/DL (20-135); eGFR 50 ML/MIN
[2020-08-28] MEDS: budesonide 0.5mg/2ml UD nebule IH SCH ×2 (09:28→19:23)
[2020-08-28] MEDS ORDERED: LISI-600 PO (10:48)
[2020-08-28] MEDS ORDERED: POTA10TA36 PO (10:48)
[2020-08-28] MEDS: HYDROcodone/acetaminophen 10/325mg tab PO PRN ×2 (11:27→20:02)
[2020-08-28] MEDS: vancomycin/NS 1 GM ADD-VANTAGE 250 ML IV SCH ×2 (12:26→22:26)
--- NOTE | 2020-08-28 15:56 | NUR ---
Patient in room ED 12. I have received report from Donna GOMEZ and had the opportunity to ask questions and assume patient care.
--- NOTE | 2020-08-28 16:21 | NUR ---
Page Sent promotional table spacer PAGER ID: [phone] MESSAGE: [phone] Maria De Jesus. Pt arrived to the floor with her bedbugs. Would you like to order a treatment? Candie [phone] (104 character message out of a maximum of 240)
[2020-08-28 17:15] VITALS: BP 129/62
--- NOTE | 2020-08-28 18:00 | NUR ---
Problems reprioritized. Patient report given, questions answered & plan of care reviewed with Alejandrina GOMEZ.
--- NOTE | 2020-08-28 18:40 | NUR ---
Page Sent promotional table spacer PAGER ID: [phone] MESSAGE: [phone] Sophiaw . Lab unable to draw blood. Tried two different people. Night RN can try to draw from IV. Do you want fluids? Alejandrina [phone] (133 character message out of a maximum of 240)
--- NOTE | 2020-08-28 18:45 | NUR ---
Patient in room PCU 3011. I have received report from Cassie GOMEZ and had the opportunity to ask questions and assume patient care.
[2020-08-28 19:00] VITALS: BP 110/43
--- NOTE | 2020-08-28 19:25 | NUR ---
Called MD as unable to draw blood for cultures from PIV. 2 x lab techs had also tried previously with no success. stated to go ahead and start AbX IV treatments tonight.
[2020-08-28] MEDS: nystatin 15 GM powder TP SCH (20:00)
[2020-08-28] MEDS ORDERED: ipratropium 0.5 MG/2.5ML nebule NEB SCH (20:00)
[2020-08-28] MEDS: lactobacillus rhamnosus 10,000 MMU CELLS/CAPSULE PO SCH (20:01)
[2020-08-28] MEDS: enoxaparin 40mg/0.4ml syringe SQ SCH (20:02)
[2020-08-29 02:00] VITALS: BP 113/61
[2020-08-29] MEDS: ipratropium 0.5 MG/2.5ML nebule IH SCH ×5 (02:20→23:00)
[2020-08-29 05:54] LABS: BASOPHILS % (AUTO) 0.3 % (0-1); EOSINOPHILS # (AUTO) 0.2 X10'3 (0-0.9); EOSINOPHILS % (AUTO) 2.4 % (0-6); HEMATOCRIT 26.8 % (35.0-45.0); LYMPHOCYTES # (AUTO) 0.8 X10'3 (1.1-4.8); LYMPHOCYTES % (AUTO) 12.3 % (21-51); MEAN CORPUSCULAR HEMOGLOBIN 22.9 PG (27.0-31.0); MEAN CORPUSCULAR VOLUME 76.4 FL (78-98); MEAN PLATELET VOLUME 7.4 FL (7.4-10.4); MONOCYTES # (AUTO) 0.8 X10'3 (0-0.9); MONOCYTES % (AUTO) 12.3 % (2-12); NEUTROPHILS # (AUTO) 4.8 X10'3 (1.8-7.7); NEUTROPHILS % (AUTO) 72.7 % (42-75); PLATELET COUNT 415 X10'3 (140-440); RED CELL DISTRIBUTION WIDTH 18.7 % (11.5-14.5); WHITE BLOOD COUNT 6.6 X10'3 (4.5-11.0)
[2020-08-29 06:18] LABS: ALANINE AMINOTRANSFERASE 35 U/L (12-78); ALBUMIN 1.8 G/DL (3.4-5.0); ALBUMIN/GLOBULIN RATIO 0.4 (1.1-1.5); ALKALINE PHOSPHATASE 152 IU/L (46-116); ANION GAP 9 (8-16); ASPARTATE AMINO TRANSFERASE 43 U/L (10-37); BILIRUBIN,TOTAL 0.3 MG/DL (0.1-1.0); BLOOD UREA NITROGEN 19 MG/DL (7-18); BUN/CREATININE RATIO 15.7 (6.6-38.0); CHLORIDE 113 MMOL/L (99-107); CREATININE 1.21 MG/DL (0.40-0.90); GLUCOSE 68 MG/DL (70-104); MAGNESIUM 2.3 MG/DL (1.5-2.4); POTASSIUM 3.9 MMOL/L (3.5-5.1); SODIUM 150 MMOL/L (135-145); TOTAL CARBON DIOXIDE 28.2 MMOL/L (24-32); TOTAL PROTEIN 6.8 G/DL (6.4-8.2); eGFR 45 ML/MIN
--- NOTE | 2020-08-29 06:47 | NUR ---
Problems reprioritized. Patient report given, questions answered & plan of care reviewed with Rocio GOMEZ.
[2020-08-29 06:56] LABS: ANISOCYTOSIS 2+; HYPOCHROMASIA 1+; MICROCYTOSIS 1+
[2020-08-29 06:57] LABS: PLATELET ESTIMATE NORMAL; POLYCHROMASIA FEW
[2020-08-29] MEDS: budesonide 0.5mg/2ml UD nebule IH SCH ×2 (07:06→19:51)
[2020-08-29 07:40] VITALS: BP 122/60
[2020-08-29] MEDS: K and/or MAG REPLACEMENT MC SCH ×2 (08:00→20:00)
[2020-08-29] MEDS ORDERED: VANCOMYCIN LEVEL IV ONE (08:30)
[2020-08-29] MEDS: fluconazole-Diflucan 200mg/NS 100 ML IV SCH (08:33)
[2020-08-29] MEDS: docusate sod 100mg capsule PO SCH ×2 (08:33→21:00)
[2020-08-29] MEDS: lactobacillus rhamnosus 10,000 MMU CELLS/CAPSULE PO SCH ×2 (08:34→21:01)
[2020-08-29] MEDS: pantoprazole 40mg Tablet.DR PO SCH (08:34)
[2020-08-29] MEDS: nystatin 15 GM powder TP SCH (08:34)
[2020-08-29] MEDS: furosemide 20 MG/2 ML vial IV SCH ×2 (08:34→20:00)
[2020-08-29] MEDS: doxycycline inj 100 MG in normal saline 100ml IV soln 100 ML IV SCH (10:20)
[2020-08-29] MEDS: HYDROcodone/acetaminophen 10/325mg tab PO PRN ×3 (10:21→14:37)
[2020-08-29] MEDS: vancomycin/NS 1 GM ADD-VANTAGE 250 ML IV SCH ×2 (11:14→21:01)
[2020-08-29 13:09] VITALS: BP 109/45
[2020-08-29 15:08] VITALS: BP 131/66
[2020-08-29] MEDS: gentamicin 0.1% topical ointment 15gm TP SCH (15:35)
[2020-08-29] MEDS: NYSTATIN CREAM - 30GM TUBE TP SCH (15:35)
[2020-08-29 18:00] VITALS: BP 97/32
--- NOTE | 2020-08-29 18:11 | NUR ---
Problems reprioritized. Patient report given, questions answered & plan of care reviewed with JASON Cruz.
[2020-08-29] MEDS: enoxaparin 40mg/0.4ml syringe SQ SCH (21:00)
[2020-08-29 22:00] VITALS: BP 100/48
[2020-08-30 02:00] VITALS: BP 111/57
[2020-08-30] MEDS: ipratropium 0.5 MG/2.5ML nebule IH SCH ×5 (03:41→20:26)
[2020-08-30 06:24] LABS: BASOPHILS % (AUTO) 0.8 % (0-1); EOSINOPHILS # (AUTO) 0.2 X10'3 (0-0.9); EOSINOPHILS % (AUTO) 5.3 % (0-6); HEMATOCRIT 26.1 % (35.0-45.0); LYMPHOCYTES # (AUTO) 0.9 X10'3 (1.1-4.8); LYMPHOCYTES % (AUTO) 20.6 % (21-51); MEAN CORPUSCULAR HEMOGLOBIN 23.2 PG (27.0-31.0); MEAN CORPUSCULAR HGB CONC 30.5 g/dL (33.0-36.5); MONOCYTES # (AUTO) 0.6 X10'3 (0-0.9); MONOCYTES % (AUTO) 13.9 % (2-12); NEUTROPHILS # (AUTO) 2.7 X10'3 (1.8-7.7); NEUTROPHILS % (AUTO) 59.4 % (42-75); PLATELET COUNT 394 X10'3 (140-440); RED BLOOD COUNT 3.44 X10'6 (4.20-5.60); RED CELL DISTRIBUTION WIDTH 19.1 % (11.5-14.5); WHITE BLOOD COUNT 4.5 X10'3 (4.5-11.0)
--- NOTE | 2020-08-30 06:34 | NUR ---
Patient in room PCU 3011. I have received report from Anthony GOMEZ and had the opportunity to ask questions and assume patient care.
[2020-08-30 06:38] LABS: ALANINE AMINOTRANSFERASE 26 U/L (12-78); ALBUMIN 1.7 G/DL (3.4-5.0); ALBUMIN/GLOBULIN RATIO 0.3 (1.1-1.5); ALKALINE PHOSPHATASE 133 IU/L (46-116); ANION GAP 6 (8-16); ASPARTATE AMINO TRANSFERASE 30 U/L (10-37); BILIRUBIN,TOTAL 0.2 MG/DL (0.1-1.0); BLOOD UREA NITROGEN 21 MG/DL (7-18); CALCIUM 9.3 MG/DL (8.5-10.1); CHLORIDE 113 MMOL/L (99-107); CREATININE 1.05 MG/DL (0.40-0.90); GLUCOSE 94 MG/DL (70-104); MAGNESIUM 2.4 MG/DL (1.5-2.4); POTASSIUM 4.2 MMOL/L (3.5-5.1); SODIUM 148 MMOL/L (135-145); TOTAL CARBON DIOXIDE 28.6 MMOL/L (24-32); TOTAL PROTEIN 6.6 G/DL (6.4-8.2); eGFR 53 ML/MIN
[2020-08-30 06:48] VITALS: BP 131/92
[2020-08-30] MEDS: budesonide 0.5mg/2ml UD nebule IH SCH ×2 (07:20→20:26)
[2020-08-30] MEDS: K and/or MAG REPLACEMENT MC SCH ×2 (08:00→19:35)
[2020-08-30] MEDS: NYSTATIN CREAM - 30GM TUBE TP SCH (08:00)
[2020-08-30 08:20] LABS: ANISOCYTOSIS 2+; HYPOCHROMASIA 1+; MICROCYTOSIS 1+; PLATELET ESTIMATE NORMAL
[2020-08-30 08:21] LABS: POLYCHROMASIA FEW
[2020-08-30] MEDS: HYDROcodone/acetaminophen 10/325mg tab PO PRN ×2 (09:11→15:11)
[2020-08-30] MEDS: docusate sod 100mg capsule PO SCH ×2 (09:11→19:34)
[2020-08-30] MEDS: furosemide 20 MG/2 ML vial IV SCH ×2 (09:11→19:33)
[2020-08-30] MEDS: vancomycin/NS 1 GM ADD-VANTAGE 250 ML IV SCH ×2 (09:12→20:42)
[2020-08-30] MEDS: pantoprazole 40mg Tablet.DR PO SCH (09:12)
[2020-08-30] MEDS: lactobacillus rhamnosus 10,000 MMU CELLS/CAPSULE PO SCH ×2 (09:12→19:34)
[2020-08-30] MEDS: gentamicin 0.1% topical ointment 15gm TP SCH (09:13)
[2020-08-30 11:00] VITALS: BP 105/63
[2020-08-30 15:00] VITALS: BP 117/63
[2020-08-30 18:00] VITALS: BP 116/69
--- NOTE | 2020-08-30 18:08 | NUR ---
Problems reprioritized. Patient report given, questions answered & plan of care reviewed with Xiao GOMEZ.
[2020-08-30] MEDS: HYDROmorphone inj. 0.5 MG/0.5 ML DISP.SYRIN IV PRN (19:33)
[2020-08-30] MEDS: enoxaparin 40mg/0.4ml syringe SQ SCH (19:35)
[2020-08-30 22:00] VITALS: BP 110/50
[2020-08-31] MEDS: ipratropium 0.5 MG/2.5ML nebule IH SCH ×7 (00:33→23:58)
[2020-08-31 02:00] VITALS: BP 143/76
[2020-08-31] MEDS: HYDROmorphone inj. 0.5 MG/0.5 ML DISP.SYRIN IV PRN (04:44)
[2020-08-31 06:33] LABS: BASOPHILS % (AUTO) 0.3 % (0-1); EOSINOPHILS # (AUTO) 0.2 X10'3 (0-0.9); EOSINOPHILS % (AUTO) 4.8 % (0-6); LYMPHOCYTES # (AUTO) 0.9 X10'3 (1.1-4.8); MEAN CORPUSCULAR HEMOGLOBIN 23.1 PG (27.0-31.0); MEAN CORPUSCULAR HGB CONC 30.7 g/dL (33.0-36.5); MEAN CORPUSCULAR VOLUME 75.2 FL (78-98); MEAN PLATELET VOLUME 7.2 FL (7.4-10.4); MONOCYTES # (AUTO) 0.6 X10'3 (0-0.9); MONOCYTES % (AUTO) 11.9 % (2-12); NEUTROPHILS # (AUTO) 3.1 X10'3 (1.8-7.7); PLATELET COUNT 458 X10'3 (140-440); RED BLOOD COUNT 3.46 X10'6 (4.20-5.60); RED CELL DISTRIBUTION WIDTH 18.3 % (11.5-14.5); WHITE BLOOD COUNT 4.8 X10'3 (4.5-11.0)
--- NOTE | 2020-08-31 06:35 | NUR ---
Problems reprioritized. Patient report given, questions answered & plan of care reviewed with JASON Toth.
[2020-08-31 07:00] VITALS: BP 133/86
[2020-08-31 07:05] LABS: ALANINE AMINOTRANSFERASE 26 U/L (12-78); ALBUMIN 1.8 G/DL (3.4-5.0); ALBUMIN/GLOBULIN RATIO 0.4 (1.1-1.5); ALKALINE PHOSPHATASE 123 IU/L (46-116); ANION GAP 5 (8-16); ASPARTATE AMINO TRANSFERASE 23 U/L (10-37); BILIRUBIN,TOTAL 0.2 MG/DL (0.1-1.0); BLOOD UREA NITROGEN 17 MG/DL (7-18); BUN/CREATININE RATIO 15.5 (6.6-38.0); CHLORIDE 109 MMOL/L (99-107); GLUCOSE 89 MG/DL (70-104); MAGNESIUM 2.2 MG/DL (1.5-2.4); SODIUM 147 MMOL/L (135-145); TOTAL PROTEIN 6.7 G/DL (6.4-8.2); eGFR 50 ML/MIN
[2020-08-31] MEDS: budesonide 0.5mg/2ml UD nebule IH SCH ×2 (07:15→20:20)
[2020-08-31] MEDS: NYSTATIN CREAM - 30GM TUBE TP SCH (08:00)
[2020-08-31] MEDS: K and/or MAG REPLACEMENT MC SCH ×2 (08:00→19:55)
[2020-08-31] MEDS: gentamicin 0.1% topical ointment 15gm TP SCH (08:00)
[2020-08-31] MEDS: docusate sod 100mg capsule PO SCH ×2 (08:00→19:37)
[2020-08-31] MEDS: furosemide 20 MG/2 ML vial IV SCH ×2 (09:20→19:37)
[2020-08-31] MEDS: vancomycin/NS 1 GM ADD-VANTAGE 250 ML IV SCH ×2 (09:21→21:05)
[2020-08-31] MEDS: lactobacillus rhamnosus 10,000 MMU CELLS/CAPSULE PO SCH ×2 (09:21→19:37)
[2020-08-31] MEDS: pantoprazole 40mg Tablet.DR PO SCH (09:21)
[2020-08-31 11:00] VITALS: BP_SYST 112; BP_SYST 133; BP_DIAS 64; BP_DIAS 79
[2020-08-31] MEDS: HYDROcodone/acetaminophen 10/325mg tab PO PRN (14:33)
[2020-08-31 15:00] VITALS: BP 128/76
--- NOTE | 2020-08-31 15:08 | NUR ---
done at 0430hrs by tonio staff Addendum: 08/31/20 at 1509 by Janey Yang RN Amended: Links added.
--- NOTE | 2020-08-31 15:20 | NUR ---
norco given for pain
[2020-08-31] MEDS ORDERED: HYDROmorphone inj. 0.5 MG/0.5 ML DISP.SYRIN IV PRN (16:15)
[2020-08-31] MEDS ORDERED: HYDROmorphone 1 mg/ml syringe IV PRN (16:15)
[2020-08-31 18:00] VITALS: BP 126/73
--- NOTE | 2020-08-31 18:37 | NUR ---
patient up in chair working with PT all cares given no new orders patient refused colace even though last BM was 08/27. stated that she feels she will have BM tonight. report given to garcia GOMEZ
[2020-08-31] MEDS: enoxaparin 40mg/0.4ml syringe SQ SCH (19:37)
[2020-08-31 22:00] VITALS: BP 138/62
[2020-09-01] MEDS: ipratropium 0.5 MG/2.5ML nebule IH SCH ×6 (03:29→23:20)
--- NOTE | 2020-09-01 04:59 | NUR ---
Paged Dr. Nino. PAGER ID: [phone] MESSAGE: This is JASON Hadley from [facility] x [phone]. FYI : Pt Maria De Jesus, Angelica. 64 F with Dx BLE Cellulitis, Sepsis has 12 run of iProcurech @ 0445. Pt. was asymptomatic. She's now back to SR.
[2020-09-01 06:00] VITALS: BP 124/60
[2020-09-01 06:06] LABS: BASOPHILS % (AUTO) 0.4 % (0-1); EOSINOPHILS # (AUTO) 0.3 X10'3 (0-0.9); HEMATOCRIT 26.5 % (35.0-45.0); HEMOGLOBIN 8.3 g/dl (12.0-16.0); LYMPHOCYTES % (AUTO) 19.5 % (21-51); MEAN CORPUSCULAR HEMOGLOBIN 23.6 PG (27.0-31.0); MEAN CORPUSCULAR HGB CONC 31.4 g/dL (33.0-36.5); MEAN CORPUSCULAR VOLUME 75.2 FL (78-98); MEAN PLATELET VOLUME 7.4 FL (7.4-10.4); MONOCYTES # (AUTO) 0.6 X10'3 (0-0.9); MONOCYTES % (AUTO) 12.3 % (2-12); NEUTROPHILS # (AUTO) 3.2 X10'3 (1.8-7.7); NEUTROPHILS % (AUTO) 62.8 % (42-75); PLATELET COUNT 471 X10'3 (140-440); RED BLOOD COUNT 3.52 X10'6 (4.20-5.60); RED CELL DISTRIBUTION WIDTH 18.1 % (11.5-14.5); WHITE BLOOD COUNT 5.1 X10'3 (4.5-11.0)
--- NOTE | 2020-09-01 06:21 | NUR ---
Problems reprioritized. Patient report given, questions answered & plan of care reviewed with JASON Starr.
[2020-09-01 06:27] LABS: ALANINE AMINOTRANSFERASE 23 U/L (12-78); ALBUMIN 1.9 G/DL (3.4-5.0); ALBUMIN/GLOBULIN RATIO 0.4 (1.1-1.5); ALKALINE PHOSPHATASE 120 IU/L (46-116); ANION GAP 6 (8-16); ASPARTATE AMINO TRANSFERASE 14 U/L (10-37); BILIRUBIN,TOTAL 0.2 MG/DL (0.1-1.0); BLOOD UREA NITROGEN 17 MG/DL (7-18); BUN/CREATININE RATIO 15.7 (6.6-38.0); CHLORIDE 103 MMOL/L (99-107); CREATININE 1.08 MG/DL (0.40-0.90); GLUCOSE 91 MG/DL (70-104); MAGNESIUM 2.1 MG/DL (1.5-2.4); POTASSIUM 3.7 MMOL/L (3.5-5.1); SODIUM 144 MMOL/L (135-145); TOTAL CARBON DIOXIDE 35.5 MMOL/L (24-32); TOTAL PROTEIN 6.7 G/DL (6.4-8.2); eGFR 51 ML/MIN
--- NOTE | 2020-09-01 06:49 | NUR ---
Patient in room PCU 3011. I have received report from JASON Goss and had the opportunity to ask questions and assume patient care.
[2020-09-01] MEDS: budesonide 0.5mg/2ml UD nebule IH SCH ×2 (07:14→19:16)
[2020-09-01] MEDS: gentamicin 0.1% topical ointment 15gm TP SCH (08:00)
[2020-09-01] MEDS: NYSTATIN CREAM - 30GM TUBE TP SCH (08:00)
[2020-09-01] MEDS: K and/or MAG REPLACEMENT MC SCH ×2 (08:00→20:00)
[2020-09-01] MEDS: docusate sod 100mg capsule PO SCH ×2 (08:37→21:19)
[2020-09-01] MEDS: pantoprazole 40mg Tablet.DR PO SCH (08:37)
[2020-09-01] MEDS: furosemide 20 MG/2 ML vial IV SCH ×2 (08:37→21:28)
[2020-09-01] MEDS: lactobacillus rhamnosus 10,000 MMU CELLS/CAPSULE PO SCH ×2 (08:37→21:19)
[2020-09-01] MEDS: vancomycin/NS 1 GM ADD-VANTAGE 250 ML IV SCH ×2 (08:37→21:18)
--- NOTE | 2020-09-01 09:01 | NUR ---
Pt states dressing to BLE changed this morning by NOC RN. Pt does not want this RN to change dressings again at this time. Dressings currently CDI. Will continue to monitor.
[2020-09-01 11:00] VITALS: BP 121/67
[2020-09-01] MEDS: methylnaltrexone br 12mg/0.6ml inj***SubQ only SQ SCH (11:58)
[2020-09-01 15:00] VITALS: BP 126/66
--- NOTE | 2020-09-01 16:44 | NUR ---
Initial: Pt admit with sepsis secondary to BLE cellulitis. Pt on a heart healthy diet and eating well documented with average 75% PO intake up to 75-100% at breakfast and lunch today. LBM 08/27. Pt with routine bowel care though documented to be refusing at times. Pt started on Relistor today and with a new order for soap suds enema. Will continue to follow and monitor need for nutrition intervention. Recommendations: 1) Continue heart healthy diet 2) Monitor need for ONS/additional protein 3) Routine bowel care; opioid antagonist per MD 4) Scaled weights per rx Addendum: 09/01/20 at [address] Amended: Links added.
[2020-09-01 18:00] VITALS: BP 130/85
--- NOTE | 2020-09-01 18:21 | NUR ---
Problems reprioritized. Patient report given, questions answered & plan of care reviewed with JASON Stokes.
--- NOTE | 2020-09-01 18:46 | NUR ---
Patient in room PCU 3011. I have received report from CECILIA GOMEZ and had the opportunity to ask questions and assume patient care.
[2020-09-01] MEDS: enoxaparin 40mg/0.4ml syringe SQ SCH (21:19)
[2020-09-01 22:00] VITALS: BP 149/75
[2020-09-02 02:35] VITALS: BP 154/83
[2020-09-02] MEDS: ipratropium 0.5 MG/2.5ML nebule IH SCH ×6 (03:00→23:00)
[2020-09-02 06:00] VITALS: BP 175/83
--- NOTE | 2020-09-02 06:31 | NUR ---
Problems reprioritized. Patient report given, questions answered & plan of care reviewed with MADINA GOMEZ. PATIENT SLEEPING AND SHOWS NO SIGN OG DISTRESS.
[2020-09-02] MEDS: NYSTATIN CREAM - 30GM TUBE TP SCH (08:00)
[2020-09-02] MEDS: K and/or MAG REPLACEMENT MC SCH ×2 (08:00→18:57)
[2020-09-02] MEDS: budesonide 0.5mg/2ml UD nebule IH SCH ×2 (09:00→19:36)
[2020-09-02] MEDS: pantoprazole 40mg Tablet.DR PO SCH (09:28)
[2020-09-02] MEDS: gentamicin 0.1% topical ointment 15gm TP SCH (09:28)
[2020-09-02] MEDS: lactobacillus rhamnosus 10,000 MMU CELLS/CAPSULE PO SCH ×2 (09:28→20:14)
[2020-09-02] MEDS: vancomycin/NS 1 GM ADD-VANTAGE 250 ML IV SCH ×2 (09:28→20:14)
[2020-09-02] MEDS: docusate sod 100mg capsule PO SCH ×2 (09:28→17:12)
[2020-09-02] MEDS: furosemide 20 MG/2 ML vial IV SCH ×2 (09:28→20:14)
[2020-09-02 11:00] VITALS: BP 167/77
--- NOTE | 2020-09-02 11:09 | NUR ---
PAGED RT ABOUT PATIENT'S MED REC. RT STATES THEY ARE VERY BUSY AND WILL ADDRESS SOON POSSIBLE. PT IS COMFORTABLE AND IN NO RESPIRATORY DISTRESS.
[2020-09-02 15:00] VITALS: BP 153/84
--- NOTE | 2020-09-02 16:21 | NUR ---
DID WOUND CARE, CHANGED LINENS AND GOWN
--- NOTE | 2020-09-02 18:30 | NUR ---
Patient in room PCU 3011. I have received report from HALIMA GOMEZ and had the opportunity to ask questions and assume patient care.
[2020-09-02 18:52] VITALS: BP 126/53
[2020-09-02] MEDS: HYDROcodone/acetaminophen 10/325mg tab PO PRN (19:29)
[2020-09-02] MEDS: enoxaparin 40mg/0.4ml syringe SQ SCH (20:14)
[2020-09-02 22:00] VITALS: BP 142/63
[2020-09-03 02:00] VITALS: BP 144/71
[2020-09-03] MEDS: ipratropium 0.5 MG/2.5ML nebule IH SCH ×6 (03:00→23:18)
[2020-09-03 06:00] VITALS: BP 153/77
--- NOTE | 2020-09-03 06:27 | NUR ---
REPORT GIVEN TO JASON HERNANDEZ.
--- NOTE | 2020-09-03 06:47 | NUR ---
Patient in room PCU 3011. I have received report from Jessica GOMEZ and had the opportunity to ask questions and assume patient care.
[2020-09-03] MEDS: K and/or MAG REPLACEMENT MC SCH ×2 (08:00→20:00)
[2020-09-03] MEDS: budesonide 0.5mg/2ml UD nebule IH SCH ×2 (09:00→19:23)
[2020-09-03] MEDS: pantoprazole 40mg Tablet.DR PO SCH (09:03)
[2020-09-03] MEDS: docusate sod 100mg capsule PO SCH ×2 (09:03→20:31)
[2020-09-03] MEDS: vancomycin/NS 1 GM ADD-VANTAGE 250 ML IV SCH ×2 (09:03→21:27)
[2020-09-03] MEDS: furosemide 20 MG/2 ML vial IV SCH ×2 (09:04→21:27)
[2020-09-03] MEDS: methylnaltrexone br 12mg/0.6ml inj***SubQ only SQ SCH (09:04)
[2020-09-03] MEDS: lactobacillus rhamnosus 10,000 MMU CELLS/CAPSULE PO SCH ×2 (09:04→20:31)
[2020-09-03] MEDS: NYSTATIN CREAM - 30GM TUBE TP SCH (09:05)
[2020-09-03] MEDS: gentamicin 0.1% topical ointment 15gm TP SCH (09:06)
[2020-09-03 11:00] VITALS: BP 123/57
[2020-09-03] MEDS: HYDROcodone/acetaminophen 10/325mg tab PO PRN (14:26)
[2020-09-03] MEDS: hydrocortisone 1% cream 28gm TP SCH (14:55)
[2020-09-03 15:48] VITALS: BP 135/69
[2020-09-03 16:23] LABS: OCCULT BLOOD STOOL NEGATIVE (Neg)
[2020-09-03 18:00] VITALS: BP 115/54
--- NOTE | 2020-09-03 18:00 | NUR ---
Patient in room PCU 3011. I have received report from Molly GOMEZ and had the opportunity to ask questions and assume patient care.
--- NOTE | 2020-09-03 18:52 | NUR ---
Problems reprioritized. Patient report given, questions answered & plan of care reviewed with Nika GOMEZ.
[2020-09-03] MEDS: enoxaparin 40mg/0.4ml syringe SQ SCH (20:32)
[2020-09-03 22:00] VITALS: BP 136/70
--- NOTE | 2020-09-04 01:18 | NUR ---
Barier cream to right knee and to bilateral lower arms and hands and checks
[2020-09-04 02:00] VITALS: BP 133/46
[2020-09-04] MEDS: ipratropium 0.5 MG/2.5ML nebule IH SCH ×5 (03:00→20:14)
--- NOTE | 2020-09-04 06:00 | NUR ---
Patient in room PCU 3011. I have received report from Nika GOMEZ and had the opportunity to ask questions and assume patient care.
--- NOTE | 2020-09-04 06:22 | NUR ---
Problems reprioritized. Patient report given, questions answered & plan of care reviewed with Candie GOMEZ.
[2020-09-04 07:00] VITALS: BP 137/69
[2020-09-04] MEDS: NYSTATIN CREAM - 30GM TUBE TP SCH (08:00)
[2020-09-04] MEDS: docusate sod 100mg capsule PO SCH ×2 (08:00→20:38)
[2020-09-04] MEDS: K and/or MAG REPLACEMENT MC SCH ×2 (08:00→20:00)
[2020-09-04] MEDS: hydrocortisone 1% cream 28gm TP SCH (08:00)
[2020-09-04 08:57] LABS: BASOPHILS % (AUTO) 0.6 % (0-1); EOSINOPHILS # (AUTO) 0.2 X10'3 (0-0.9); EOSINOPHILS % (AUTO) 3.8 % (0-6); HEMATOCRIT 30.8 % (35.0-45.0); HEMOGLOBIN 9.2 g/dl (12.0-16.0); LYMPHOCYTES # (AUTO) 1.1 X10'3 (1.1-4.8); LYMPHOCYTES % (AUTO) 18.3 % (21-51); MEAN CORPUSCULAR HEMOGLOBIN 22.8 PG (27.0-31.0); MEAN PLATELET VOLUME 7.5 FL (7.4-10.4); MONOCYTES # (AUTO) 0.5 X10'3 (0-0.9); MONOCYTES % (AUTO) 8.1 % (2-12); NEUTROPHILS # (AUTO) 4.1 X10'3 (1.8-7.7); NEUTROPHILS % (AUTO) 69.2 % (42-75); PLATELET COUNT 498 X10'3 (140-440); RED BLOOD COUNT 4.05 X10'6 (4.20-5.60); RED CELL DISTRIBUTION WIDTH 18.5 % (11.5-14.5)
[2020-09-04] MEDS: budesonide 0.5mg/2ml UD nebule IH SCH ×2 (09:00→20:13)
[2020-09-04 09:11] LABS: ALANINE AMINOTRANSFERASE 16 U/L (12-78); ALBUMIN 2.3 G/DL (3.4-5.0); ALBUMIN/GLOBULIN RATIO 0.5 (1.1-1.5); ALKALINE PHOSPHATASE 117 IU/L (46-116); ANION GAP 3 (8-16); ASPARTATE AMINO TRANSFERASE 16 U/L (10-37); BILIRUBIN,TOTAL 0.2 MG/DL (0.1-1.0); BLOOD UREA NITROGEN 19 MG/DL (7-18); BUN/CREATININE RATIO 13.9 (6.6-38.0); CALCIUM 8.7 MG/DL (8.5-10.1); CHLORIDE 105 MMOL/L (99-107); CREATININE 1.37 MG/DL (0.40-0.90); GLUCOSE 175 MG/DL (70-104); POTASSIUM 3.8 MMOL/L (3.5-5.1); SODIUM 142 MMOL/L (135-145); TOTAL CARBON DIOXIDE 33.6 MMOL/L (24-32); eGFR 39 ML/MIN
[2020-09-04] MEDS: furosemide 20 MG/2 ML vial IV SCH ×2 (09:39→20:38)
[2020-09-04] MEDS: pantoprazole 40mg Tablet.DR PO SCH (09:39)
[2020-09-04] MEDS: lactobacillus rhamnosus 10,000 MMU CELLS/CAPSULE PO SCH ×2 (09:39→20:38)
[2020-09-04] MEDS: vancomycin/NS 1 GM ADD-VANTAGE 250 ML IV SCH ×2 (09:40→20:39)
[2020-09-04 10:59] LABS: PLATELET ESTIMATE INCREASED
[2020-09-04 11:00] LABS: HYPOCHROMASIA 1+; POLYCHROMASIA FEW; SPHEROCYTES 2+
--- NOTE | 2020-09-04 14:39 | NUR ---
Problems reprioritized. Patient report given, questions answered & plan of care reviewed with Sana GOMEZ.
[2020-09-04 15:00] VITALS: BP 137/69
[2020-09-04] MEDS: HYDROcodone/acetaminophen 10/325mg tab PO PRN (15:34)
[2020-09-04 18:00] VITALS: BP 137/69
--- NOTE | 2020-09-04 18:17 | NUR ---
Problems reprioritized. Patient report given, questions answered & plan of care reviewed with May GOMEZ Surg float.
[2020-09-04] MEDS: enoxaparin 40mg/0.4ml syringe SQ SCH (20:38)
[2020-09-04 22:00] VITALS: BP 146/72
[2020-09-05] VITALS (7 sets, daily range): BP systolic 121–175; BP diastolic 57–86
[2020-09-05] MEDS: ipratropium 0.5 MG/2.5ML nebule IH SCH ×7 (00:15→23:57)
--- NOTE | 2020-09-05 06:38 | NUR ---
Patient in room PCU 3011. I have received report from aMy GOMEZ and had the opportunity to ask questions and assume patient care.
--- NOTE | 2020-09-05 06:39 | NUR ---
Problems reprioritized. Patient report given, questions answered & plan of care reviewed with Trudy GOMEZ.
[2020-09-05] MEDS: NYSTATIN CREAM - 30GM TUBE TP SCH (08:00)
[2020-09-05] MEDS: hydrocortisone 1% cream 28gm TP SCH ×2 (08:00→13:12)
[2020-09-05] MEDS: K and/or MAG REPLACEMENT MC SCH ×2 (08:00→20:00)
[2020-09-05] MEDS: budesonide 0.5mg/2ml UD nebule IH SCH ×2 (08:14→19:37)
[2020-09-05] MEDS ORDERED: VANCOMYCIN LEVEL IV ONE (08:30)
[2020-09-05] MEDS: vancomycin/NS 1 GM ADD-VANTAGE 250 ML IV SCH (09:00)
[2020-09-05 09:05] LABS: BASOPHILS % (AUTO) 0.6 % (0-1); EOSINOPHILS # (AUTO) 0.2 X10'3 (0-0.9); EOSINOPHILS % (AUTO) 3.5 % (0-6); LYMPHOCYTES % (AUTO) 15.9 % (21-51); MEAN PLATELET VOLUME 8.1 FL (7.4-10.4); MONOCYTES # (AUTO) 0.5 X10'3 (0-0.9); MONOCYTES % (AUTO) 7.6 % (2-12); NEUTROPHILS # (AUTO) 4.6 X10'3 (1.8-7.7); NEUTROPHILS % (AUTO) 72.4 % (42-75); PLATELET COUNT 510 X10'3 (140-440); WHITE BLOOD COUNT 6.3 X10'3 (4.5-11.0)
--- NOTE | 2020-09-05 09:15 | NUR ---
Vancomycin trough 31.6. Notified primary JASON Garciaphia
[2020-09-05 09:16] LABS: ALANINE AMINOTRANSFERASE 16 U/L (12-78); ALBUMIN 2.3 G/DL (3.4-5.0); ALBUMIN/GLOBULIN RATIO 0.5 (1.1-1.5); ALKALINE PHOSPHATASE 114 IU/L (46-116); ANION GAP 6 (8-16); ASPARTATE AMINO TRANSFERASE 17 U/L (10-37); BILIRUBIN,TOTAL 0.3 MG/DL (0.1-1.0); BLOOD UREA NITROGEN 19 MG/DL (7-18); BUN/CREATININE RATIO 14.7 (6.6-38.0); CALCIUM 8.8 MG/DL (8.5-10.1); CHLORIDE 104 MMOL/L (99-107); CREATININE 1.29 MG/DL (0.40-0.90); GLUCOSE 159 MG/DL (70-104); POTASSIUM 3.8 MMOL/L (3.5-5.1); SODIUM 142 MMOL/L (135-145); TOTAL CARBON DIOXIDE 31.6 MMOL/L (24-32); eGFR 41 ML/MIN
[2020-09-05 09:24] LABS: HEMATOCRIT 31.3 % (35.0-45.0); HEMOGLOBIN 10.1 g/dl (12.0-16.0); MEAN CORPUSCULAR HEMOGLOBIN 24.1 PG (27.0-31.0); MEAN CORPUSCULAR HGB CONC 32.2 g/dL (33.0-36.5); MEAN CORPUSCULAR VOLUME 74.9 FL (78-98); RED BLOOD COUNT 4.18 X10'6 (4.20-5.60); RED CELL DISTRIBUTION WIDTH 17.8 % (11.5-14.5)
--- NOTE | 2020-09-05 09:33 | NUR ---
Vanco trough 31.6, pharmacist notified, advised me to hold the dose for now
[2020-09-05] MEDS: methylnaltrexone br 12mg/0.6ml inj***SubQ only SQ SCH (09:59)
[2020-09-05] MEDS: furosemide 20 MG/2 ML vial IV SCH ×2 (09:59→21:20)
[2020-09-05] MEDS: docusate sod 100mg capsule PO SCH ×2 (09:59→21:20)
[2020-09-05] MEDS: lactobacillus rhamnosus 10,000 MMU CELLS/CAPSULE PO SCH ×2 (09:59→21:20)
[2020-09-05] MEDS: pantoprazole 40mg Tablet.DR PO SCH (09:59)
[2020-09-05 10:13] LABS: HYPOCHROMASIA 1+; PLATELET ESTIMATE INCREASED
[2020-09-05 10:14] LABS: STOMATOCYTES 2+
--- NOTE | 2020-09-05 13:35 | NUR ---
Reassessment: PO Intake average 75-100% , meeting nutrition needs. Recommendations: 1) Continue heart healthy diet 2) Routine bowel care; opioid antagonist per MD 3) Scaled weights per rx Addendum: 09/05/20 at [address] Amended: Links added.
--- NOTE | 2020-09-05 19:00 | NUR ---
Problems reprioritized. Patient report given, questions answered & plan of care reviewed with Mariana GOMEZ.
[2020-09-05] MEDS: enoxaparin 40mg/0.4ml syringe SQ SCH (21:20)
[2020-09-05] MEDS: HYDROcodone/acetaminophen 10/325mg tab PO PRN (21:47)
--- NOTE | 2020-09-05 22:49 | NUR ---
Patient in room PCU 3011. I have received report from JASON Yates and had the opportunity to ask questions and assume patient care.
[2020-09-06 02:00] VITALS: BP 127/69
[2020-09-06] MEDS ORDERED: VANCOMYCIN LEVEL IV ONE (03:00)
[2020-09-06] MEDS: ipratropium 0.5 MG/2.5ML nebule IH SCH ×6 (03:18→23:15)
[2020-09-06 06:00] VITALS: BP 147/66
[2020-09-06 06:35] LABS: ALANINE AMINOTRANSFERASE 18 U/L (12-78); ALBUMIN 2.4 G/DL (3.4-5.0); ALBUMIN/GLOBULIN RATIO 0.5 (1.1-1.5); ALKALINE PHOSPHATASE 112 IU/L (46-116); ANION GAP 2 (8-16); ASPARTATE AMINO TRANSFERASE 14 U/L (10-37); BILIRUBIN,TOTAL 0.2 MG/DL (0.1-1.0); BLOOD UREA NITROGEN 19 MG/DL (7-18); BUN/CREATININE RATIO 15.4 (6.6-38.0); CHLORIDE 104 MMOL/L (99-107); CREATININE 1.23 MG/DL (0.40-0.90); GLUCOSE 91 MG/DL (70-104); SODIUM 142 MMOL/L (135-145); TOTAL CARBON DIOXIDE 35.7 MMOL/L (24-32); TOTAL PROTEIN 7.2 G/DL (6.4-8.2); VANCOMYCIN,RANDOM 17.8 UG/ML; eGFR 44 ML/MIN
--- NOTE | 2020-09-06 06:44 | NUR ---
Problems reprioritized. Patient report given, questions answered & plan of care reviewed with JASON More.
--- NOTE | 2020-09-06 06:50 | NUR ---
Patient in room PCU 3011. I have received report from Mariana GOMEZ and had the opportunity to ask questions and assume patient care.
[2020-09-06 07:02] LABS: BASOPHILS % (AUTO) 0.3 % (0-1); EOSINOPHILS # (AUTO) 0.2 X10'3 (0-0.9); EOSINOPHILS % (AUTO) 3.6 % (0-6); HEMATOCRIT 30.5 % (35.0-45.0); HEMOGLOBIN 9.2 g/dl (12.0-16.0); LYMPHOCYTES # (AUTO) 1.3 X10'3 (1.1-4.8); MEAN CORPUSCULAR HEMOGLOBIN 22.9 PG (27.0-31.0); MEAN CORPUSCULAR HGB CONC 30.3 g/dL (33.0-36.5); MEAN CORPUSCULAR VOLUME 75.6 FL (78-98); MEAN PLATELET VOLUME 7.8 FL (7.4-10.4); MONOCYTES # (AUTO) 0.6 X10'3 (0-0.9); MONOCYTES % (AUTO) 11.1 % (2-12); NEUTROPHILS # (AUTO) 3.4 X10'3 (1.8-7.7); PLATELET COUNT 534 X10'3 (140-440); RED BLOOD COUNT 4.03 X10'6 (4.20-5.60); RED CELL DISTRIBUTION WIDTH 18.7 % (11.5-14.5); WHITE BLOOD COUNT 5.6 X10'3 (4.5-11.0)
[2020-09-06] MEDS: NYSTATIN CREAM - 30GM TUBE TP SCH (08:00)
[2020-09-06] MEDS: K and/or MAG REPLACEMENT MC SCH ×2 (08:00→20:00)
[2020-09-06] MEDS: budesonide 0.5mg/2ml UD nebule IH SCH ×2 (09:00→19:25)
--- NOTE | 2020-09-06 09:06 | NUR ---
0700 SVN triaged. RT called to ICU
[2020-09-06] MEDS: linezolid 600mg tablet PO SCH ×2 (09:17→19:54)
[2020-09-06] MEDS: HYDROcodone/acetaminophen 10/325mg tab PO PRN (09:17)
[2020-09-06] MEDS: hydrocortisone 1% cream 28gm TP SCH (09:17)
[2020-09-06] MEDS: pantoprazole 40mg Tablet.DR PO SCH (09:18)
[2020-09-06] MEDS: furosemide 20 MG/2 ML vial IV SCH ×2 (09:18→19:50)
[2020-09-06] MEDS: lactobacillus rhamnosus 10,000 MMU CELLS/CAPSULE PO SCH ×2 (09:18→19:49)
[2020-09-06] MEDS: docusate sod 100mg capsule PO SCH ×2 (09:19→19:50)
[2020-09-06 10:35] LABS: PLATELET ESTIMATE INCREASED
[2020-09-06 10:36] LABS: ANISOCYTOSIS 2+; HYPOCHROMASIA 1+; MICROCYTOSIS 1+; POLYCHROMASIA FEW; SCHISTOCYTES FEW; STOMATOCYTES 2+
[2020-09-06 18:00] VITALS: BP 152/54
--- NOTE | 2020-09-06 18:41 | NUR ---
Problems reprioritized. Patient report given, questions answered & plan of care reviewed with Bronson GOMEZ.
--- NOTE | 2020-09-06 18:54 | NUR ---
Patient in room PCU 3011. I have received report from JASON Barnes and had the opportunity to ask questions and assume patient care.
[2020-09-06] MEDS: enoxaparin 40mg/0.4ml syringe SQ SCH (19:52)
[2020-09-06 22:00] VITALS: BP 137/59
[2020-09-07] MEDS: HYDROcodone/acetaminophen 10/325mg tab PO PRN (01:43)
[2020-09-07 02:00] VITALS: BP 146/64
[2020-09-07 05:37] LABS: CLARITY,URINE CLEAR (Clear); COLOR,URINE YELLOW (Yellow); GLUCOSE, URINE NEGATIVE (Neg); KETONES,URINE NEGATIVE (Neg); LEUKOCYTE ESTERASE ,URINE NEGATIVE (Neg); NITRITES, URINE NEGATIVE (Neg); OCCULT BLOOD,URINE NEGATIVE (Neg); PROTEIN,URINE 30 mg/dl (Neg); UROBILINOGEN,URINE 0.2 E.U/dL (0.2-1.0)
[2020-09-07 05:38] LABS: UA COLLECTION TYPE CLN CATCH MIDSTREAM
[2020-09-07 05:39] LABS: BACTERIA,URINE 2+ /HPF (Neg); MUCUS STRANDS FEW /LPF (Neg); RBC,URINE 0-2 /HPF (0-2); SQUAMOUS EPITHELIAL CELL,UR MODERATE /LPF (FEW)
--- NOTE | 2020-09-07 06:24 | NUR ---
Problems reprioritized. Patient report given, questions answered & plan of care reviewed with JASON Esteban.
[2020-09-07 06:38] LABS: BASOPHILS % (AUTO) 0.6 % (0-1); EOSINOPHILS # (AUTO) 0.2 X10'3 (0-0.9); EOSINOPHILS % (AUTO) 2.4 % (0-6); HEMATOCRIT 30.8 % (35.0-45.0); HEMOGLOBIN 9.8 g/dl (12.0-16.0); LYMPHOCYTES # (AUTO) 1.5 X10'3 (1.1-4.8); LYMPHOCYTES % (AUTO) 23.4 % (21-51); MEAN CORPUSCULAR HEMOGLOBIN 24.2 PG (27.0-31.0); MEAN CORPUSCULAR HGB CONC 31.9 g/dL (33.0-36.5); MEAN CORPUSCULAR VOLUME 75.8 FL (78-98); MEAN PLATELET VOLUME 8.2 FL (7.4-10.4); MONOCYTES # (AUTO) 0.7 X10'3 (0-0.9); MONOCYTES % (AUTO) 10.3 % (2-12); NEUTROPHILS # (AUTO) 4.1 X10'3 (1.8-7.7); NEUTROPHILS % (AUTO) 63.3 % (42-75); PLATELET COUNT 514 X10'3 (140-440); RED BLOOD COUNT 4.07 X10'6 (4.20-5.60); RED CELL DISTRIBUTION WIDTH 18.6 % (11.5-14.5); WHITE BLOOD COUNT 6.5 X10'3 (4.5-11.0)
--- NOTE | 2020-09-07 06:46 | NUR ---
Patient in room PCU 3011. I have received report from JAMESON GOMEZ and had the opportunity to ask questions and assume patient care.
[2020-09-07 07:00] VITALS: BP 127/73
[2020-09-07 07:04] LABS: ALANINE AMINOTRANSFERASE 17 U/L (12-78); ALBUMIN 2.6 G/DL (3.4-5.0); ALBUMIN/GLOBULIN RATIO 0.5 (1.1-1.5); ALKALINE PHOSPHATASE 119 IU/L (46-116); ANION GAP 7 (8-16); ASPARTATE AMINO TRANSFERASE 15 U/L (10-37); BILIRUBIN,TOTAL 0.2 MG/DL (0.1-1.0); BLOOD UREA NITROGEN 21 MG/DL (7-18); CALCIUM 9.4 MG/DL (8.5-10.1); CHLORIDE 100 MMOL/L (99-107); GLUCOSE 85 MG/DL (70-104); POTASSIUM 4.3 MMOL/L (3.5-5.1); SODIUM 139 MMOL/L (135-145); TOTAL CARBON DIOXIDE 32.3 MMOL/L (24-32); TOTAL PROTEIN 7.6 G/DL (6.4-8.2); eGFR 38 ML/MIN
[2020-09-07 07:50] LABS: ANISOCYTOSIS 2+; HYPOCHROMASIA 1+; MICROCYTOSIS 1+; PLATELET ESTIMATE INCREASED; POLYCHROMASIA 1+; STOMATOCYTES 2+
[2020-09-07] MEDS: NYSTATIN CREAM - 30GM TUBE TP SCH (08:00)
[2020-09-07] MEDS: K and/or MAG REPLACEMENT MC SCH (08:00)
[2020-09-07] MEDS: budesonide 0.5mg/2ml UD nebule IH SCH (08:27)
[2020-09-07] MEDS: ipratropium 0.5 MG/2.5ML nebule IH SCH ×3 (08:27→14:57)
[2020-09-07] MEDS: pantoprazole 40mg Tablet.DR PO SCH (09:50)
[2020-09-07] MEDS: methylnaltrexone br 12mg/0.6ml inj***SubQ only SQ SCH (09:50)
[2020-09-07] MEDS: lactobacillus rhamnosus 10,000 MMU CELLS/CAPSULE PO SCH (09:50)
[2020-09-07] MEDS: linezolid 600mg tablet PO SCH (09:50)
[2020-09-07] MEDS: docusate sod 100mg capsule PO SCH (09:50)
[2020-09-07] MEDS: furosemide 20 MG/2 ML vial IV SCH (09:50)
[2020-09-07 11:00] VITALS: BP 114/50
[2020-09-07] MEDS ORDERED: LINE600T14 PO (11:10)
--- NOTE | 2020-09-07 15:06 | NUR ---
DID WOUND CARE AND TOOK DISCHARGE PICS
--- NOTE | 2020-09-07 15:44 | NUR ---
Zyvox ed: Met patient at bedside and given written low tyramine education handout in view of receiving zyvox, pt verbalized understanding. Addendum: 09/07/20 at [address] Amended: Links added.
== END 2020-09-07 17:28 | disposition home or self-care (01) | DRG 383 ==
LOC: ER 20:26 → ED HOLD 22:00 → PCU 3S 08-28 16:13
PROVIDERS: ADMIT Family Medicine; ATTEND Internal Medicine
DX: L03.116 Cellulitis of left lower limb (principal); L03.311 Cellulitis of abdominal wall; L03.115 Cellulitis of right lower limb; J44.1 Chronic obstructive pulmonary disease with (acute) exacerbation; I50.32 Chronic diastolic (congestive) heart failure; I42.9 Cardiomyopathy, unspecified; I13.0 Hypertensive heart and chronic kidney disease with heart failure and stage 1 through stage 4 chronic kidney disease, or unspecified chronic kidney disease; G93.41 Metabolic encephalopathy; F41.9 Anxiety disorder, unspecified; F20.9 Schizophrenia, unspecified; D63.8 Anemia in other chronic diseases classified elsewhere; D50.9 Iron deficiency anemia, unspecified; B95.62 Methicillin resistant Staphylococcus aureus infection as the cause of diseases classified elsewhere; N18.9 Chronic kidney disease, unspecified; R62.7 Adult failure to thrive; Z20.828 Contact with and (suspected) exposure to other viral communicable diseases; Z86.73 Personal history of transient ischemic attack (TIA), and cerebral infarction without residual deficits; Z86.74 Personal history of sudden cardiac arrest; Z87.891 Personal history of nicotine dependence; I49.5 Sick sinus syndrome
CPT/HCPCS: 36415; 71045; 80053; 80061; 80202; 81001; 82272; 83605; 83735; 83880; 84145; 84484; 85007; 85008; 85025; 86140; 87040; 87077; 87081; 87088; 87186; 87635; 93005; 93308; 94640; 94664; 94760; 96365; 96368; 96375; 97110; 97116; 97161; 97530; 99285; C9803; G0378; J1170; J1450; J1650; J1940; J2212; J2270; J2543; J3370; J3490; J7030; J7626

== ENCOUNTER 2020-09-14 03:35 | Emergency (ER) | payer MEDICAID ==
[~2020-09-14] VITALS: Ht 165.1 cm; Wt 86.4 kg
[~2020-09-14 03:35] MED LIST changes: -CEPH500C5 PO; -FURO20TA4 PO; +LINE600T14 PO; +LISI-600 PO; -POTA10TA36 PO
--- NOTE | 2020-09-14 05:31 | NUR ---
PT TELLS ME THAT SHE HAS NEVER BEEN ASKED TO BE PLACED INTO A LONG TERM, SHE IS NOT ABLE TO CARE FOR HERSELF.
[2020-09-14] MEDS ORDERED: FURO-150 PO (05:34)
[2020-09-14] MEDS ORDERED: POTA10TA36 PO (05:34)
--- NOTE | 2020-09-14 05:35 | NUR ---
She states sometimes she takes her meds and sometimes not. There are meds that she says she takes but are not picked up from pharmacy that this recorder can see.
--- NOTE | 2020-09-14 05:36 | NUR ---
Yeast to abdominal/groin folds. She is using nystatin powder.
[2020-09-14 05:54] LABS: BASOPHILS # (AUTO) 0.1 X10'3 (0-0.2); BASOPHILS % (AUTO) 0.9 % (0-1); EOSINOPHILS # (AUTO) 0.2 X10'3 (0-0.9); EOSINOPHILS % (AUTO) 1.9 % (0-6); HEMATOCRIT 26.8 % (35.0-45.0); HEMOGLOBIN 8.3 g/dl (12.0-16.0); LYMPHOCYTES % (AUTO) 10.5 % (21-51); MEAN CORPUSCULAR HEMOGLOBIN 23.9 PG (27.0-31.0); MEAN CORPUSCULAR HGB CONC 31.1 g/dL (33.0-36.5); MEAN CORPUSCULAR VOLUME 76.7 FL (78-98); MEAN PLATELET VOLUME 8.4 FL (7.4-10.4); MONOCYTES # (AUTO) 0.9 X10'3 (0-0.9); NEUTROPHILS % (AUTO) 76.7 % (42-75); PLATELET COUNT 503 X10'3 (140-440); RED BLOOD COUNT 3.49 X10'6 (4.20-5.60); WHITE BLOOD COUNT 9.1 X10'3 (4.5-11.0)
[2020-09-14 05:56] LABS: CLARITY,URINE CLEAR (Clear); COLOR,URINE YELLOW (Yellow); GLUCOSE, URINE NEGATIVE (Neg); KETONES,URINE NEGATIVE (Neg); LEUKOCYTE ESTERASE ,URINE NEGATIVE (Neg); NITRITES, URINE NEGATIVE (Neg); OCCULT BLOOD,URINE NEGATIVE (Neg); PROTEIN,URINE TRACE mg/dl (Neg); UROBILINOGEN,URINE 0.2 E.U/dL (0.2-1.0)
[2020-09-14 06:00] LABS: UA COLLECTION TYPE STRAIGHT CATH
[2020-09-14 06:03] LABS: RBC,URINE NONE SEEN /HPF (0-2)
[2020-09-14 06:04] LABS: BACTERIA,URINE FEW /HPF (Neg); HYALINE CASTS 0-3 /LPF (NEGATIVE); MUCUS STRANDS NONE SEEN /LPF (Neg); SQUAMOUS EPITHELIAL CELL,UR NONE SEEN /LPF (FEW); WBC CLUMPS,URINE FEW /HPF (NEGATIVE)
[2020-09-14 06:08] LABS: ALANINE AMINOTRANSFERASE 40 U/L (12-78); ALBUMIN 2.4 G/DL (3.4-5.0); ALBUMIN/GLOBULIN RATIO 0.5 (1.1-1.5); ALKALINE PHOSPHATASE 148 IU/L (46-116); ANION GAP 7 (8-16); ASPARTATE AMINO TRANSFERASE 51 U/L (10-37); BILIRUBIN,TOTAL 0.2 MG/DL (0.1-1.0); BLOOD UREA NITROGEN 20 MG/DL (7-18); BUN/CREATININE RATIO 16.8 (6.6-38.0); CALCIUM 8.7 MG/DL (8.5-10.1); CHLORIDE 113 MMOL/L (99-107); CREATININE 1.19 MG/DL (0.40-0.90); GLUCOSE 102 MG/DL (70-104); POTASSIUM 4.3 MMOL/L (3.5-5.1); SODIUM 145 MMOL/L (135-145); TOTAL CARBON DIOXIDE 25.3 MMOL/L (24-32); TOTAL PROTEIN 6.8 G/DL (6.4-8.2); eGFR 46 ML/MIN
[2020-09-14 07:24] LABS: ANISOCYTOSIS 2+; PLATELET ESTIMATE INCREASED
[2020-09-14 07:26] LABS: MICROCYTOSIS 1+
[2020-09-14 07:29] LABS: HYPOCHROMASIA 1+; SCHISTOCYTES FEW; STOMATOCYTES 2+
[2020-09-14 07:33] LABS: ELLIPTOCYTES FEW; POLYCHROMASIA FEW
[2020-09-14 13:41] VITALS: BP 140/80
--- NOTE | 2020-09-17 14:43 | NUR ---
[id number] IS ADMITTED ON PCU 3011, PCU CALLED AND NOTIFIED THAT UA ON 09/14 WAS POSITIVE FOR UTI AND PT WAS NOT GIVEN ABX. LAB RESULTS FAXED TO PCU
== END 2020-09-14 13:45 | disposition home or self-care (01) ==
LOC: ER 03:35
DX: L97.929 Non-pressure chronic ulcer of unspecified part of left lower leg with unspecified severity (principal); L97.919 Non-pressure chronic ulcer of unspecified part of right lower leg with unspecified severity; I50.9 Heart failure, unspecified; J44.9 Chronic obstructive pulmonary disease, unspecified; F20.9 Schizophrenia, unspecified; Z86.73 Personal history of transient ischemic attack (TIA), and cerebral infarction without residual deficits; Z87.01 Personal history of pneumonia (recurrent); Z85.9 Personal history of malignant neoplasm, unspecified; Z60.2 Problems related to living alone; Z88.8 Allergy status to other drugs, medicaments and biological substances; Z79.899 Other long term (current) drug therapy; W19.XXXA Unspecified fall, initial encounter; Y93.89 Activity, other specified; Y92.89 Other specified places as the place of occurrence of the external cause; Y99.8 Other external cause status
CPT/HCPCS: 36415; 70450; 71045; 80053; 81001; 83605; 84145; 85008; 85025; 87077; 87088; 87186; 93005; 99285

== ENCOUNTER 2020-09-16 19:33 | Inpatient (IN) | payer MEDICAID ==
[~2020-09-16] VITALS: Ht 165.1 cm; Wt 95.0 kg
[~2020-09-16 19:33] MED LIST changes: +FURO-150 PO; -LINE600T14 PO; +POTA10TA36 PO
[2020-09-16 20:11] LABS: BASOPHILS # (AUTO) 0.1 X10'3 (0-0.2); BASOPHILS % (AUTO) 0.6 % (0-1); EOSINOPHILS # (AUTO) 0.2 X10'3 (0-0.9); EOSINOPHILS % (AUTO) 1.9 % (0-6); HEMATOCRIT 28.4 % (35.0-45.0); HEMOGLOBIN 8.7 g/dl (12.0-16.0); LYMPHOCYTES % (AUTO) 19.9 % (21-51); MEAN CORPUSCULAR HEMOGLOBIN 23.2 PG (27.0-31.0); MEAN CORPUSCULAR HGB CONC 30.6 g/dL (33.0-36.5); MEAN PLATELET VOLUME 7.8 FL (7.4-10.4); MONOCYTES # (AUTO) 1.2 X10'3 (0-0.9); NEUTROPHILS # (AUTO) 6.5 X10'3 (1.8-7.7); NEUTROPHILS % (AUTO) 65.6 % (42-75); PLATELET COUNT 529 X10'3 (140-440); RED BLOOD COUNT 3.73 X10'6 (4.20-5.60); RED CELL DISTRIBUTION WIDTH 19.6 % (11.5-14.5); WHITE BLOOD COUNT 9.9 X10'3 (4.5-11.0)
[2020-09-16] MEDS ORDERED: LORazepam 1 MG tablet PO ONE (20:15)
[2020-09-16] MEDS ORDERED: predniSONE 20 mg tablet PO ONE (20:15)
[2020-09-16] MEDS ORDERED: normal saline 1000ml 1,000 ML IV ONE ×2 (20:15→21:40)
[2020-09-16 20:20] LABS: ALANINE AMINOTRANSFERASE 61 U/L (12-78); ALBUMIN 2.3 G/DL (3.4-5.0); ALBUMIN/GLOBULIN RATIO 0.5 (1.1-1.5); ALKALINE PHOSPHATASE 199 IU/L (46-116); ANION GAP 9 (8-16); ASPARTATE AMINO TRANSFERASE 35 U/L (10-37); BILIRUBIN,TOTAL 0.3 MG/DL (0.1-1.0); BLOOD UREA NITROGEN 16 MG/DL (7-18); BUN/CREATININE RATIO 13.3 (6.6-38.0); CALCIUM 8.5 MG/DL (8.5-10.1); CHLORIDE 108 MMOL/L (99-107); GLUCOSE 105 MG/DL (70-104); POTASSIUM 4.2 MMOL/L (3.5-5.1); SODIUM 142 MMOL/L (135-145); TOTAL CARBON DIOXIDE 25.1 MMOL/L (24-32); TOTAL PROTEIN 7.3 G/DL (6.4-8.2); eGFR 45 ML/MIN
[2020-09-16 21:51] LABS: CLARITY,URINE CLEAR (Clear); COLOR,URINE YELLOW (Yellow); GLUCOSE, URINE NEGATIVE (Neg); KETONES,URINE NEGATIVE (Neg); LEUKOCYTE ESTERASE ,URINE NEGATIVE (Neg); NITRITES, URINE NEGATIVE (Neg); OCCULT BLOOD,URINE NEGATIVE (Neg); PH,URINE 5.5 (4.8-8.0); PROTEIN,URINE 30 mg/dl (Neg); UROBILINOGEN,URINE 0.2 E.U/dL (0.2-1.0)
[2020-09-16 21:57] LABS: UA COLLECTION TYPE STRAIGHT CATH
[2020-09-16 21:58] LABS: BACTERIA,URINE FEW /HPF (Neg); RBC,URINE 0-2 /HPF (0-2); SQUAMOUS EPITHELIAL CELL,UR FEW /LPF (FEW)
[2020-09-16] MEDS ORDERED: metoprolol tartrate 50mg tablet PO ONE (22:05)
[2020-09-16] MEDS ORDERED: metoprolol tartrate 12.5mg (1/2 tablet) PO ONE (22:10)
[2020-09-17] MEDS ORDERED: ipratropium/albuterol 3ml nebule NEB ONE (00:05)
[2020-09-17] MEDS ORDERED: albuterol 2.5 MG/3 ML nebule NEB ONE (00:05)
[2020-09-17] MEDS ORDERED: methylPREDNISolone sod succ 125mg/2ml vial IV ONE (00:05)
[2020-09-17] MEDS ORDERED: iohexol 350MG/ML 100ml bottle IV ONE (00:08)
--- NOTE | 2020-09-17 00:39 | NUR ---
Pt stated her reaction to albuterol happened at the age of 25. It made her arms numb and she didn't like it. Dr Mancilla is aware.
[2020-09-17 01:25] LABS: ABG BASE EXCESS -2.9 mmol/L (-2.0-2.0); ABG OXYGEN SATURATION 91.8 % (94-97); ABG PCO2 (T) 44.4 mmHg (32.0-45.0); ABG PO2 (T) 63.3 mmHg (75.0-100.0); ALLEN'S TEST POSITIVE; FCOHb 1.2 % (0.0-3.9); FMetHb 0.1 % (0.0-1.5); FO2Hb 90.6 % (94-97); PATIENT TEMPERATURE 36.7; TOTAL HEMOGLOBIN 9.3 G/dl (12.0-16.0)
[2020-09-17] MEDS ORDERED: magnesium 2GM in 50ml NS 50 ML IV PRN (05:05)
[2020-09-17] MEDS ORDERED: ondansetron/PF 4mg/2ml inj IV PRN (05:05)
[2020-09-17] MEDS ORDERED: potassium Cl 20 mEq SR tablet PO PRN ×2 (05:05)
[2020-09-17] MEDS ORDERED: magnesium hydroxide 30ml (MOM) UD suspension PO PRN (05:05)
[2020-09-17] MEDS ORDERED: potassium Cl 40MEQ/1/2NS 520ml 520 ML IV PRN ×2 (05:05)
[2020-09-17] MEDS ORDERED: magnesium Cl slow-release 64mg tablet PO PRN (05:05)
[2020-09-17] MEDS ORDERED: magnesium 4gm in 100ml NS 100 ML IV PRN (05:05)
[2020-09-17] MEDS ORDERED: acetaminophen 325mg tablet PO PRN ×2 (05:05)
[2020-09-17] MEDS ORDERED: mag hydrox/Alum hydrox/simeth 30ml oral suspension PO PRN (05:05)
[2020-09-17] MEDS: normal saline 1000ml 1,000 ML IV SCH (05:29)
[2020-09-17] MEDS: CefTRIAXone 2gm/D5W 50ml BAG 50 ML IV SCH (07:56)
[2020-09-17] MEDS: furosemide 40mg/4ml inj IV SCH (07:56)
[2020-09-17] MEDS: K and/or MAG REPLACEMENT MC SCH ×2 (07:57→19:59)
[2020-09-17] MEDS: heparin, porcine 5000 units/ml vial SQ SCH ×2 (07:57→16:51)
[2020-09-17] MEDS ORDERED: methylPREDNISolone sod succ 125mg/2ml vial IV SCH (08:00)
[2020-09-17] MEDS ORDERED: albuterol 2.5 MG/3 ML nebule NEB SCH (08:00)
[2020-09-17] MEDS: ipratropium/albuterol 3ml nebule NEB SCH ×4 (11:00→23:24)
[2020-09-17] MEDS: diltiazem CD 120mg capsule (once-daily) PO SCH (11:25)
[2020-09-17 15:00] VITALS: BP 156/80
[2020-09-17] MEDS: methylPREDNISolone sod succ 125mg/2ml vial IV SCH ×2 (16:47→19:53)
[2020-09-17 18:00] VITALS: BP 148/77
[2020-09-17] MEDS: nystatin 15 GM powder TP SCH (19:53)
[2020-09-17] MEDS: lactobacillus rhamnosus 10,000 MMU CELLS/CAPSULE PO SCH (19:53)
[2020-09-17] MEDS ORDERED: temazepam 15mg capsule PO PRN (21:00)
[2020-09-17 22:00] VITALS: BP 141/67
[2020-09-17] MEDS: morphine 2 MG/ML inj. syringe IV PRN (23:38)
[2020-09-18] MEDS: normal saline 1000ml 1,000 ML IV SCH ×2 (01:10→20:15)
[2020-09-18 02:00] VITALS: BP 130/64
[2020-09-18] MEDS: ipratropium/albuterol 3ml nebule NEB SCH ×6 (03:24→23:42)
[2020-09-18] MEDS: methylPREDNISolone sod succ 125mg/2ml vial IV SCH ×4 (03:45→20:16)
[2020-09-18 06:30] VITALS: BP 149/82
--- NOTE | 2020-09-18 06:51 | NUR ---
Patient in room PCU 3011. I have received report from Anthony GOMEZ and had the opportunity to ask questions and assume patient care.
[2020-09-18] MEDS: CefTRIAXone 2gm/D5W 50ml BAG 50 ML IV SCH (07:26)
[2020-09-18] MEDS: furosemide 40mg/4ml inj IV SCH (07:26)
[2020-09-18] MEDS: heparin, porcine 5000 units/ml vial SQ SCH ×3 (07:26→16:22)
[2020-09-18] MEDS: lactobacillus rhamnosus 10,000 MMU CELLS/CAPSULE PO SCH ×2 (07:27→20:15)
[2020-09-18] MEDS: pantoprazole 40mg Tablet.DR PO SCH (07:27)
[2020-09-18] MEDS: diltiazem CD 120mg capsule (once-daily) PO SCH (07:27)
[2020-09-18] MEDS: HYDROcodone/acetaminophen 5mg/325mg tablet PO PRN (07:28)
[2020-09-18] MEDS: lisinopril 20mg tablet PO SCH (07:32)
[2020-09-18] MEDS: nystatin 15 GM powder TP SCH ×2 (07:49→20:28)
[2020-09-18] MEDS: K and/or MAG REPLACEMENT MC SCH ×2 (08:00→20:00)
[2020-09-18 08:21] LABS: BASOPHILS % (AUTO) 0.3 % (0-1); EOSINOPHILS % (AUTO) 0 % (0-6); HEMATOCRIT 25.7 % (35.0-45.0); LYMPHOCYTES # (AUTO) 0.5 X10'3 (1.1-4.8); LYMPHOCYTES % (AUTO) 5.2 % (21-51); MEAN CORPUSCULAR HEMOGLOBIN 23.3 PG (27.0-31.0); MEAN CORPUSCULAR VOLUME 75.2 FL (78-98); MEAN PLATELET VOLUME 7.9 FL (7.4-10.4); MONOCYTES # (AUTO) 0.3 X10'3 (0-0.9); MONOCYTES % (AUTO) 2.9 % (2-12); NEUTROPHILS # (AUTO) 9.3 X10'3 (1.8-7.7); NEUTROPHILS % (AUTO) 91.6 % (42-75); PLATELET COUNT 470 X10'3 (140-440); RED BLOOD COUNT 3.42 X10'6 (4.20-5.60); RED CELL DISTRIBUTION WIDTH 19.8 % (11.5-14.5); WHITE BLOOD COUNT 10.1 X10'3 (4.5-11.0)
[2020-09-18 09:00] LABS: ANION GAP 9 (8-16); BLOOD UREA NITROGEN 24 MG/DL (7-18); BUN/CREATININE RATIO 22.2 (6.6-38.0); CALCIUM 8.9 MG/DL (8.5-10.1); CHLORIDE 108 MMOL/L (99-107); CREATININE 1.08 MG/DL (0.40-0.90); GLUCOSE 156 MG/DL (70-104); MAGNESIUM 2.5 MG/DL (1.5-2.4); POTASSIUM 4.2 MMOL/L (3.5-5.1); SODIUM 142 MMOL/L (135-145); TOTAL CARBON DIOXIDE 24.9 MMOL/L (24-32); eGFR 51 ML/MIN
--- NOTE | 2020-09-18 09:44 | NUR ---
Paged Dr. Neville: PAGER ID: [phone] MESSAGE: LOLIS Lopez RN ext [phone]. RE" Lena Pretty,. Blood culture (+)GRAM POSITIVE RODS RESEMBLING DIPHTHEROIDS. POSITIVE BOTTLE(S): SEEN IN AEROBIC BOTTLE
[2020-09-18 11:00] VITALS: BP_SYST 129; BP_SYST 139; BP_DIAS 63; BP_DIAS 71
[2020-09-18 12:47] LABS: ANISOCYTOSIS 2+; MICROCYTOSIS 1+; PLATELET ESTIMATE INCREASED
[2020-09-18 12:48] LABS: ELLIPTOCYTES FEW; POLYCHROMASIA FEW
[2020-09-18 12:49] LABS: SCHISTOCYTES FEW
[2020-09-18 12:50] LABS: HYPOCHROMASIA 2+
[2020-09-18 15:00] VITALS: BP 139/71
[2020-09-18 18:00] VITALS: BP 146/78
--- NOTE | 2020-09-18 18:20 | NUR ---
Problems reprioritized. Patient report given, questions answered & plan of care reviewed with Bronson GOMEZ.
--- NOTE | 2020-09-18 18:34 | NUR ---
Patient in room PCU 3011. I have received report from JASON Lopez and had the opportunity to ask questions and assume patient care.
[2020-09-18 22:00] VITALS: BP 139/75
[2020-09-19 02:00] VITALS: BP 142/77
[2020-09-19] MEDS: methylPREDNISolone sod succ 125mg/2ml vial IV SCH ×4 (02:03→20:25)
[2020-09-19] MEDS: ipratropium/albuterol 3ml nebule NEB SCH ×6 (03:19→23:40)
[2020-09-19 06:00] VITALS: BP 166/93
--- NOTE | 2020-09-19 06:29 | NUR ---
Problems reprioritized. Patient report given, questions answered & plan of care reviewed with JASON Starr.
--- NOTE | 2020-09-19 06:36 | NUR ---
Patient in room PCU 3011. I have received report from JASON Dobson and had the opportunity to ask questions and assume patient care.
[2020-09-19 07:16] LABS: BASOPHILS % (AUTO) 0.2 % (0-1); EOSINOPHILS % (AUTO) 0 % (0-6); HEMATOCRIT 26.3 % (35.0-45.0); LYMPHOCYTES # (AUTO) 0.4 X10'3 (1.1-4.8); LYMPHOCYTES % (AUTO) 3.9 % (21-51); MEAN CORPUSCULAR HEMOGLOBIN 22.8 PG (27.0-31.0); MEAN CORPUSCULAR HGB CONC 30.5 g/dL (33.0-36.5); MEAN CORPUSCULAR VOLUME 74.7 FL (78-98); MEAN PLATELET VOLUME 7.6 FL (7.4-10.4); MONOCYTES # (AUTO) 0.2 X10'3 (0-0.9); MONOCYTES % (AUTO) 2.2 % (2-12); NEUTROPHILS # (AUTO) 8.9 X10'3 (1.8-7.7); NEUTROPHILS % (AUTO) 93.7 % (42-75); PLATELET COUNT 447 X10'3 (140-440); RED BLOOD COUNT 3.51 X10'6 (4.20-5.60); RED CELL DISTRIBUTION WIDTH 19.7 % (11.5-14.5); WHITE BLOOD COUNT 9.5 X10'3 (4.5-11.0)
[2020-09-19] MEDS: heparin, porcine 5000 units/ml vial SQ SCH ×2 (07:47→20:25)
[2020-09-19] MEDS: diltiazem CD 120mg capsule (once-daily) PO SCH (07:47)
[2020-09-19] MEDS: furosemide 40mg/4ml inj IV SCH (07:47)
[2020-09-19] MEDS: lactobacillus rhamnosus 10,000 MMU CELLS/CAPSULE PO SCH ×2 (07:47→20:26)
[2020-09-19] MEDS: lisinopril 20mg tablet PO SCH (07:47)
[2020-09-19] MEDS: CefTRIAXone 2gm/D5W 50ml BAG 50 ML IV SCH (07:47)
[2020-09-19] MEDS: nystatin 15 GM powder TP SCH ×2 (07:47→20:27)
[2020-09-19] MEDS: pantoprazole 40mg Tablet.DR PO SCH (07:47)
[2020-09-19 07:59] LABS: ALBUMIN 2.1 G/DL (3.4-5.0); ANION GAP 10 (8-16); BLOOD UREA NITROGEN 33 MG/DL (7-18); CALCIUM 9.5 MG/DL (8.5-10.1); CHLORIDE 108 MMOL/L (99-107); CREATININE 1.03 MG/DL (0.40-0.90); GLUCOSE 148 MG/DL (70-104); MAGNESIUM 2.7 MG/DL (1.5-2.4); POTASSIUM 3.9 MMOL/L (3.5-5.1); SODIUM 144 MMOL/L (135-145); TOTAL CARBON DIOXIDE 26.3 MMOL/L (24-32); eGFR 54 ML/MIN
[2020-09-19] MEDS: K and/or MAG REPLACEMENT MC SCH ×2 (08:00→20:00)
[2020-09-19 09:19] LABS: ANISOCYTOSIS 2+; ELLIPTOCYTES FEW; HYPOCHROMASIA 1+; MICROCYTOSIS 1+; PLATELET ESTIMATE INCREASED
[2020-09-19 09:20] LABS: SCHISTOCYTES FEW
[2020-09-19 11:00] VITALS: BP 158/80
[2020-09-19] MEDS: silver sulfadiazine cream 400gm jar TP SCH (11:09)
[2020-09-19] MEDS: HYDROcodone/acetaminophen 5mg/325mg tablet PO PRN (11:10)
[2020-09-19] MEDS: ciprofloxacin lact 400MG/200ML 200 ML IV SCH ×2 (11:10→20:23)
--- NOTE | 2020-09-19 11:36 | NUR ---
Dressings to bilateral lower extremities changed per written orders. Pt tolerated well. Cultures obtained from each leg per Dr Neville's order. Will continue to monitor.
[2020-09-19] MEDS: morphine 2 MG/ML inj. syringe IV PRN (12:21)
[2020-09-19 15:00] VITALS: BP 162/83
[2020-09-19] MEDS: normal saline 1000ml 1,000 ML IV SCH (17:58)
[2020-09-19 18:00] VITALS: BP 144/71
--- NOTE | 2020-09-19 18:22 | NUR ---
Problems reprioritized. Patient report given, questions answered & plan of care reviewed with JASON Sanders.
--- NOTE | 2020-09-19 18:30 | NUR ---
Patient in room PCU 3011. I have received report from Ro GOMEZ and had the opportunity to ask questions and assume patient care.
[2020-09-19 22:00] VITALS: BP 157/90
[2020-09-20 02:00] VITALS: BP 163/98
[2020-09-20] MEDS: methylPREDNISolone sod succ 125mg/2ml vial IV SCH ×2 (02:09→07:27)
[2020-09-20] MEDS: ipratropium/albuterol 3ml nebule NEB SCH ×5 (03:49→15:04)
[2020-09-20] MEDS: HYDROcodone/acetaminophen 5mg/325mg tablet PO PRN (05:25)
[2020-09-20 06:30] VITALS: BP 182/106
--- NOTE | 2020-09-20 06:31 | NUR ---
Problems reprioritized. Patient report given, questions answered & plan of care reviewed with Su GOMEZ.
[2020-09-20] MEDS: lactobacillus rhamnosus 10,000 MMU CELLS/CAPSULE PO SCH (07:25)
[2020-09-20] MEDS: pantoprazole 40mg Tablet.DR PO SCH (07:25)
[2020-09-20] MEDS: diltiazem CD 120mg capsule (once-daily) PO SCH (07:26)
[2020-09-20] MEDS: lisinopril 20mg tablet PO SCH (07:26)
[2020-09-20] MEDS: heparin, porcine 5000 units/ml vial SQ SCH (07:27)
[2020-09-20] MEDS: ciprofloxacin lact 400MG/200ML 200 ML IV SCH (07:27)
[2020-09-20] MEDS: furosemide 40mg/4ml inj IV SCH (07:27)
[2020-09-20] MEDS: nystatin 15 GM powder TP SCH (07:36)
[2020-09-20] MEDS: silver sulfadiazine cream 400gm jar TP SCH (07:37)
[2020-09-20] MEDS: K and/or MAG REPLACEMENT MC SCH (07:41)
[2020-09-20 07:52] LABS: BASOPHILS % (AUTO) 0.3 % (0-1); EOSINOPHILS % (AUTO) 0 % (0-6); HEMATOCRIT 28.2 % (35.0-45.0); HEMOGLOBIN 8.7 g/dl (12.0-16.0); LYMPHOCYTES # (AUTO) 0.5 X10'3 (1.1-4.8); MEAN CORPUSCULAR HEMOGLOBIN 23.2 PG (27.0-31.0); MEAN CORPUSCULAR HGB CONC 31.1 g/dL (33.0-36.5); MEAN CORPUSCULAR VOLUME 74.8 FL (78-98); MEAN PLATELET VOLUME 7.6 FL (7.4-10.4); MONOCYTES # (AUTO) 0.2 X10'3 (0-0.9); MONOCYTES % (AUTO) 2.5 % (2-12); NEUTROPHILS # (AUTO) 6.9 X10'3 (1.8-7.7); NEUTROPHILS % (AUTO) 91.2 % (42-75); PLATELET COUNT 444 X10'3 (140-440); RED BLOOD COUNT 3.76 X10'6 (4.20-5.60); RED CELL DISTRIBUTION WIDTH 19.3 % (11.5-14.5); WHITE BLOOD COUNT 7.5 X10'3 (4.5-11.0)
[2020-09-20 07:58] LABS: ALBUMIN 2.3 G/DL (3.4-5.0); ANION GAP 7 (8-16); BLOOD UREA NITROGEN 33 MG/DL (7-18); BUN/CREATININE RATIO 30.6 (6.6-38.0); CALCIUM 8.7 MG/DL (8.5-10.1); CHLORIDE 105 MMOL/L (99-107); CREATININE 1.08 MG/DL (0.40-0.90); GLUCOSE 145 MG/DL (70-104); MAGNESIUM 2.4 MG/DL (1.5-2.4); POTASSIUM 3.8 MMOL/L (3.5-5.1); SODIUM 141 MMOL/L (135-145); TOTAL CARBON DIOXIDE 29.2 MMOL/L (24-32); eGFR 51 ML/MIN
[2020-09-20 11:00] VITALS: BP 161/95
[2020-09-20] MEDS: morphine 2 MG/ML inj. syringe IV PRN (12:48)
--- NOTE | 2020-09-20 13:09 | NUR ---
PAGER ID: [phone] MESSAGE: Angelica Pretty 3014: patient is refusing ABG. maya jacome [phone]
--- NOTE | 2020-09-20 13:09 | NUR ---
Problems reprioritized. Patient report given, questions answered & plan of care reviewed with JASON Floyd.
[2020-09-20] MEDS: normal saline 1000ml 1,000 ML IV SCH (13:10)
--- NOTE | 2020-09-20 13:26 | NUR ---
Patient in room PCU 3011A. I have received report from JASON LEIVA and had the opportunity to ask questions and assume patient care.
--- NOTE | 2020-09-20 14:18 | NUR ---
PAGER ID: [phone] MESSAGE: Angelica Pretty 3012: O2 has been off x1hr, patient is 92% on room air. thanks, maya [phone]
[2020-09-20] MEDS ORDERED: CARCD120C PO (14:58)
[2020-09-20 15:00] VITALS: BP 190/80
[2020-09-20] MEDS ORDERED: NEOM28OI32 TP (15:01)
--- NOTE | 2020-09-20 16:15 | NUR ---
DC INSTRUCTIONS GIVEN, QUESTIONS ANSWERED. 2 IV'S REMOVED, CANULA INTACT, NO COMPLICATIONS. TELE MONITOR REMOVED AND RETURNED TO TELE BOX, ASSISTED PT WITH DRESSING. [facility] PICKED PT UP IN STABLE CONDITION.
[2020-09-21] MEDS ORDERED: predniSONE 20 mg tablet PO SCH (08:00)
== END 2020-09-20 16:20 | disposition home or self-care (01) | DRG 720 ==
LOC: ER 19:34 → ED HOLD 09-17 05:03 → PCU 3S 09-17 14:40
PROVIDERS: ADMIT Internal Medicine; ATTEND Family Medicine
DX: A41.9 Sepsis, unspecified organism (principal); J44.1 Chronic obstructive pulmonary disease with (acute) exacerbation; F20.9 Schizophrenia, unspecified; I12.9 Hypertensive chronic kidney disease with stage 1 through stage 4 chronic kidney disease, or unspecified chronic kidney disease; I42.9 Cardiomyopathy, unspecified; I87.8 Other specified disorders of veins; J96.90 Respiratory failure, unspecified, unspecified whether with hypoxia or hypercapnia; L97.909 Non-pressure chronic ulcer of unspecified part of unspecified lower leg with unspecified severity; N18.9 Chronic kidney disease, unspecified; Z86.73 Personal history of transient ischemic attack (TIA), and cerebral infarction without residual deficits; E66.9 Obesity, unspecified; D64.9 Anemia, unspecified; R00.0 Tachycardia, unspecified; R60.0 Localized edema; I49.5 Sick sinus syndrome; F17.210 Nicotine dependence, cigarettes, uncomplicated
CPT/HCPCS: 36415; 36600; 71045; 71275; 80048; 80053; 81001; 82803; 83605; 83735; 83880; 84145; 85008; 85018; 85025; 87040; 87070; 87077; 87081; 87088; 87186; 93005; 94640; 94660; 94760; 96374; 97161; 97530; 99285; G0378; J0696; J0744; J1644; J1940; J2270; J2930; J7030; J7512; Q9967

== ENCOUNTER 2020-09-25 10:53 | Outpatient (CLI) | payer MEDICAID ==
[~2020-09-25 10:53] MED LIST changes: +CARCD120C PO; +NEOM28OI32 TP; -POTA10TA36 PO
[2020-09-25] MEDS ORDERED: mupirocin 2% ointment 22GM ONE (11:45)
[2020-09-25] MEDS ORDERED: LIDOcaine 2% 5ml jelly ONE ×2 (12:08)
== END 2020-09-25 23:59 | disposition home or self-care (01) ==
LOC: WOUND CARE 10:53 → EDSTATUS 11:00 → WOUND CARE 23:59
PROVIDERS: ATTEND Nurse Practitioner Family
DX: L97.221 Non-pressure chronic ulcer of left calf limited to breakdown of skin (principal); L97.211 Non-pressure chronic ulcer of right calf limited to breakdown of skin; L97.821 Non-pressure chronic ulcer of other part of left lower leg limited to breakdown of skin; L97.811 Non-pressure chronic ulcer of other part of right lower leg limited to breakdown of skin; I87.8 Other specified disorders of veins; I12.9 Hypertensive chronic kidney disease with stage 1 through stage 4 chronic kidney disease, or unspecified chronic kidney disease; N18.9 Chronic kidney disease, unspecified; D63.1 Anemia in chronic kidney disease; E66.01 Morbid (severe) obesity due to excess calories; J44.9 Chronic obstructive pulmonary disease, unspecified; K21.9 Gastro-esophageal reflux disease without esophagitis; I50.23 Acute on chronic systolic (congestive) heart failure; G93.41 Metabolic encephalopathy; J96.01 Acute respiratory failure with hypoxia; I42.9 Cardiomyopathy, unspecified; I49.5 Sick sinus syndrome; F32.9 Major depressive disorder, single episode, unspecified; F40.240 Claustrophobia; F41.9 Anxiety disorder, unspecified; F20.9 Schizophrenia, unspecified; F17.210 Nicotine dependence, cigarettes, uncomplicated; Z85.828 Personal history of other malignant neoplasm of skin; Z86.14 Personal history of Methicillin resistant Staphylococcus aureus infection; Z86.73 Personal history of transient ischemic attack (TIA), and cerebral infarction without residual deficits; Z79.899 Other long term (current) drug therapy; Z68.41 Body mass index [BMI] 40.0-44.9, adult; Z86.711 Personal history of pulmonary embolism
CPT/HCPCS: 97597; 97598

== ENCOUNTER 2020-10-01 06:31 | Emergency (ER) | payer MEDICAID ==
[~2020-10-01] VITALS: Ht 165.1 cm; Wt 115.6 kg
[2020-10-01 07:55] LABS: BASOPHILS % (AUTO) 0.2 % (0-1); EOSINOPHILS # (AUTO) 0.1 X10'3 (0-0.9); EOSINOPHILS % (AUTO) 1.4 % (0-6); HEMATOCRIT 27.7 % (35.0-45.0); HEMOGLOBIN 8.6 g/dl (12.0-16.0); LYMPHOCYTES # (AUTO) 1.1 X10'3 (1.1-4.8); LYMPHOCYTES % (AUTO) 10.3 % (21-51); MEAN CORPUSCULAR HEMOGLOBIN 23.8 PG (27.0-31.0); MEAN PLATELET VOLUME 7.6 FL (7.4-10.4); MONOCYTES # (AUTO) 0.9 X10'3 (0-0.9); MONOCYTES % (AUTO) 8.4 % (2-12); NEUTROPHILS # (AUTO) 8.2 X10'3 (1.8-7.7); NEUTROPHILS % (AUTO) 79.7 % (42-75); PLATELET COUNT 436 X10'3 (140-440); RED BLOOD COUNT 3.59 X10'6 (4.20-5.60); RED CELL DISTRIBUTION WIDTH 20.4 % (11.5-14.5); WHITE BLOOD COUNT 10.3 X10'3 (4.5-11.0)
[2020-10-01 08:08] LABS: ALANINE AMINOTRANSFERASE 23 U/L (12-78); ALBUMIN 2.3 G/DL (3.4-5.0); ALBUMIN/GLOBULIN RATIO 0.5 (1.1-1.5); ALKALINE PHOSPHATASE 129 IU/L (46-116); ANION GAP 7 (8-16); ASPARTATE AMINO TRANSFERASE 13 U/L (10-37); BILIRUBIN,TOTAL 0.3 MG/DL (0.1-1.0); BLOOD UREA NITROGEN 17 MG/DL (7-18); BUN/CREATININE RATIO 15.6 (6.6-38.0); CALCIUM 8.7 MG/DL (8.5-10.1); CHLORIDE 110 MMOL/L (99-107); CREATININE 1.09 MG/DL (0.40-0.90); GLUCOSE 128 MG/DL (70-104); POTASSIUM 3.9 MMOL/L (3.5-5.1); SODIUM 146 MMOL/L (135-145); TOTAL CARBON DIOXIDE 28.8 MMOL/L (24-32); TOTAL PROTEIN 6.5 G/DL (6.4-8.2); eGFR 50 ML/MIN
[2020-10-01 08:30] LABS: PLATELET ESTIMATE NORMAL
[2020-10-01 08:31] LABS: ANISOCYTOSIS 2+; HYPOCHROMASIA 1+; MICROCYTOSIS 1+
[2020-10-01 08:32] LABS: ELLIPTOCYTES FEW; TEAR DROP CELLS FEW
[2020-10-01] MEDS ORDERED: bacitracin 15gm ointment TP ONE (09:05)
[2020-10-01 11:31] VITALS: BP 168/98
[2020-10-01] MEDS ORDERED: BACI1PAC7 TOP (14:57)
== END 2020-10-01 11:32 | disposition home or self-care (01) ==
LOC: ER 06:34
DX: R60.0 Localized edema (principal); J44.9 Chronic obstructive pulmonary disease, unspecified; Z85.9 Personal history of malignant neoplasm, unspecified; Z86.73 Personal history of transient ischemic attack (TIA), and cerebral infarction without residual deficits; Z88.8 Allergy status to other drugs, medicaments and biological substances; Z79.2 Long term (current) use of antibiotics; Z79.899 Other long term (current) drug therapy
CPT/HCPCS: 36415; 80053; 83605; 83880; 84145; 85008; 85025; 99284

== ENCOUNTER 2020-10-02 10:05 | Outpatient (CLI) | payer MEDICAID ==
[~2020-10-02 10:05] MED LIST changes: +BACI1PAC7 TOP
[2020-10-03] MEDS ORDERED: NO HOME MEDS (11:42)
[2020-10-03] MEDS ORDERED: CARCD120C PO (19:17)
[2020-10-03] MEDS ORDERED: BACI30OI9 TOP (19:17)
== END 2020-10-02 23:59 | disposition home or self-care (01) ==
LOC: WOUND CARE 10:05 → EDSTATUS 11:20 → WOUND CARE 23:59
PROVIDERS: ATTEND Nurse Practitioner
DX: L97.221 Non-pressure chronic ulcer of left calf limited to breakdown of skin (principal); L97.211 Non-pressure chronic ulcer of right calf limited to breakdown of skin; L97.821 Non-pressure chronic ulcer of other part of left lower leg limited to breakdown of skin; L97.811 Non-pressure chronic ulcer of other part of right lower leg limited to breakdown of skin; I87.8 Other specified disorders of veins; I12.9 Hypertensive chronic kidney disease with stage 1 through stage 4 chronic kidney disease, or unspecified chronic kidney disease; N18.9 Chronic kidney disease, unspecified; D63.1 Anemia in chronic kidney disease; E66.01 Morbid (severe) obesity due to excess calories; J44.9 Chronic obstructive pulmonary disease, unspecified; K21.9 Gastro-esophageal reflux disease without esophagitis; I50.23 Acute on chronic systolic (congestive) heart failure; G93.41 Metabolic encephalopathy; J96.01 Acute respiratory failure with hypoxia; I42.9 Cardiomyopathy, unspecified; I49.5 Sick sinus syndrome; F32.9 Major depressive disorder, single episode, unspecified; F40.240 Claustrophobia; F41.9 Anxiety disorder, unspecified; F20.9 Schizophrenia, unspecified; F17.210 Nicotine dependence, cigarettes, uncomplicated; Z85.828 Personal history of other malignant neoplasm of skin; Z86.14 Personal history of Methicillin resistant Staphylococcus aureus infection; Z86.73 Personal history of transient ischemic attack (TIA), and cerebral infarction without residual deficits; Z79.899 Other long term (current) drug therapy; Z68.41 Body mass index [BMI] 40.0-44.9, adult; Z86.711 Personal history of pulmonary embolism
CPT/HCPCS: G0463

== ENCOUNTER 2020-10-03 07:03 | Inpatient (IN) | payer MEDICAID ==
[~2020-10-03] VITALS: Ht 165.1 cm; Wt 106.6 kg
[2020-10-03 09:11] LABS: BASOPHILS # (AUTO) 0.1 X10'3 (0-0.2); BASOPHILS % (AUTO) 0.7 % (0-1); EOSINOPHILS # (AUTO) 0.1 X10'3 (0-0.9); EOSINOPHILS % (AUTO) 1.3 % (0-6); HEMATOCRIT 29.3 % (35.0-45.0); HEMOGLOBIN 8.9 g/dl (12.0-16.0); LYMPHOCYTES # (AUTO) 1.1 X10'3 (1.1-4.8); LYMPHOCYTES % (AUTO) 11.5 % (21-51); MEAN CORPUSCULAR HEMOGLOBIN 23.4 PG (27.0-31.0); MEAN CORPUSCULAR HGB CONC 30.4 g/dL (33.0-36.5); MEAN CORPUSCULAR VOLUME 76.7 FL (78-98); MEAN PLATELET VOLUME 7.4 FL (7.4-10.4); MONOCYTES # (AUTO) 0.9 X10'3 (0-0.9); MONOCYTES % (AUTO) 8.9 % (2-12); NEUTROPHILS # (AUTO) 7.6 X10'3 (1.8-7.7); NEUTROPHILS % (AUTO) 77.6 % (42-75); PLATELET COUNT 454 X10'3 (140-440); RED BLOOD COUNT 3.82 X10'6 (4.20-5.60); RED CELL DISTRIBUTION WIDTH 20.7 % (11.5-14.5); WHITE BLOOD COUNT 9.7 X10'3 (4.5-11.0)
[2020-10-03 09:21] LABS: PARTIAL THROMBOPLASTIN TIME 29 SECONDS (22-32)
[2020-10-03 09:24] LABS: ALANINE AMINOTRANSFERASE 26 U/L (12-78); ALBUMIN 2.5 G/DL (3.4-5.0); ALBUMIN/GLOBULIN RATIO 0.5 (1.1-1.5); ALKALINE PHOSPHATASE 138 IU/L (46-116); ANION GAP 7 (8-16); ASPARTATE AMINO TRANSFERASE 17 U/L (10-37); BILIRUBIN,TOTAL 0.3 MG/DL (0.1-1.0); BLOOD UREA NITROGEN 17 MG/DL (7-18); BUN/CREATININE RATIO 16.3 (6.6-38.0); CALCIUM 9.2 MG/DL (8.5-10.1); CHLORIDE 109 MMOL/L (99-107); CREATININE 1.04 MG/DL (0.40-0.90); GLUCOSE 95 MG/DL (70-104); MAGNESIUM 2.6 MG/DL (1.5-2.4); POTASSIUM 4.3 MMOL/L (3.5-5.1); SODIUM 146 MMOL/L (135-145); TOTAL CARBON DIOXIDE 30.3 MMOL/L (24-32); TOTAL PROTEIN 7.1 G/DL (6.4-8.2); eGFR 53 ML/MIN
[2020-10-03] MEDS ORDERED: terbutaline 1 mg/ml inj SQ STA (09:38)
[2020-10-03] MEDS ORDERED: methylPREDNISolone sod succ 125mg/2ml vial IV ONE (09:40)
[2020-10-03] MEDS ORDERED: magnesium 2GM in 50ml NS 50 ML IV ONE (09:40)
[2020-10-03 09:46] LABS: ANISOCYTOSIS 3+; LARGE PLATELETS FEW; MICROCYTOSIS 1+; PLATELET ESTIMATE INCREASED
[2020-10-03] MEDS ORDERED: NO HOME MEDS (11:42)
--- NOTE | 2020-10-03 12:30 | NUR ---
1ST PAGE TO HOSP 1000 PAGE CANCELED 1015 2ND PAGE 1041 3RD PAGE [phone]
--- NOTE | 2020-10-03 13:38 | NUR ---
Pt O2 sats dropping. pt appears to have sleep apnea symptoms. Pt placed on 2 L NC.
[2020-10-03] MEDS ORDERED: magnesium hydroxide 30ml (MOM) UD suspension PO PRN (15:25)
[2020-10-03] MEDS ORDERED: potassium Cl 40MEQ/1/2NS 520ml 520 ML IV PRN ×2 (15:25)
[2020-10-03] MEDS ORDERED: mag hydrox/Alum hydrox/simeth 30ml oral suspension PO PRN (15:25)
[2020-10-03] MEDS ORDERED: magnesium Cl slow-release 64mg tablet PO PRN (15:25)
[2020-10-03] MEDS ORDERED: HYDROcodone/acetaminophen 5mg/325mg tablet PO PRN (15:25)
[2020-10-03] MEDS ORDERED: morphine 2 MG/ML inj. syringe IV PRN ×2 (15:25)
[2020-10-03] MEDS ORDERED: magnesium 4gm in 100ml NS 100 ML IV PRN (15:25)
[2020-10-03] MEDS ORDERED: bisacodyl 10mg suppository rectal RC PRN (15:25)
[2020-10-03] MEDS ORDERED: acetaminophen 650mg rectal suppository RC PRN (15:25)
[2020-10-03] MEDS ORDERED: acetaminophen 325mg tablet PO PRN ×2 (15:25)
[2020-10-03] MEDS ORDERED: magnesium 2GM in 50ml NS 50 ML IV PRN (15:25)
[2020-10-03] MEDS ORDERED: diphenhydrAMINE 25mg capsule PO PRN (15:25)
[2020-10-03] MEDS ORDERED: potassium Cl 20 mEq SR tablet PO PRN ×2 (15:25)
[2020-10-03] MEDS: normal saline 1000ml 1,000 ML IV SCH (15:25)
[2020-10-03] MEDS ORDERED: ondansetron/PF 4mg/2ml inj IV PRN (15:25)
[2020-10-03] MEDS: ipratropium/albuterol 3ml nebule NEB SCH ×2 (19:17→23:33)
[2020-10-03] MEDS ORDERED: BACI30OI9 TOP (19:17)
[2020-10-03] MEDS ORDERED: CARCD120C PO (19:17)
--- NOTE | 2020-10-03 19:42 | NUR ---
Patient in room ED 13. I have received report from Karolina GOMEZ and had the opportunity to ask questions.
[2020-10-03] MEDS: K and/or MAG REPLACEMENT MC SCH (20:00)
[2020-10-03 20:05] VITALS: BP 138/71
--- NOTE | 2020-10-03 20:05 | NUR ---
Patient arrived to unit from ED at 2004 via wheelchair and was assisted into bed with 2 persons. Patient was oriented to room, hooked up to telemetry monitoring, MRSA swab obtained, and call light present within reach. Patient is in no visible distress, alert & oriented x4, and vitals: BP: 138/71, Heart rate: 117, SpO2: 97% on 2L, respiratory rate 19, temperature: 97.5, and pain 0/10. Will continue to monitor.
[2020-10-03] MEDS: methylPREDNISolone sod succ 125mg/2ml vial IV SCH (20:47)
[2020-10-03] MEDS: heparin, porcine 5000 units/ml vial SQ SCH (20:49)
[2020-10-03 22:00] VITALS: BP 151/79
[2020-10-04] MEDS: methylPREDNISolone sod succ 125mg/2ml vial IV SCH ×4 (01:57→20:08)
[2020-10-04 02:00] VITALS: BP 129/73
[2020-10-04] MEDS: ipratropium/albuterol 3ml nebule NEB SCH ×5 (03:00→20:29)
[2020-10-04] MEDS: normal saline 1000ml 1,000 ML IV SCH ×2 (05:44→14:24)
--- NOTE | 2020-10-04 06:16 | NUR ---
Problems reprioritized. Patient report given, questions answered & plan of care reviewed with Felipe GOMEZ.
--- NOTE | 2020-10-04 06:40 | NUR ---
Patient in room PCU 3009. I have received report from Anthony GOMEZ and had the opportunity to ask questions and assume patient care.
[2020-10-04 06:41] VITALS: BP 130/65
[2020-10-04 06:46] LABS: BASOPHILS % (AUTO) 0.1 % (0-1); EOSINOPHILS % (AUTO) 0 % (0-6); HEMATOCRIT 27.1 % (35.0-45.0); HEMOGLOBIN 8.3 g/dl (12.0-16.0); LYMPHOCYTES # (AUTO) 0.3 X10'3 (1.1-4.8); LYMPHOCYTES % (AUTO) 5.4 % (21-51); MEAN CORPUSCULAR HEMOGLOBIN 23.2 PG (27.0-31.0); MEAN CORPUSCULAR HGB CONC 30.6 g/dL (33.0-36.5); MEAN PLATELET VOLUME 7.5 FL (7.4-10.4); MONOCYTES # (AUTO) 0.1 X10'3 (0-0.9); NEUTROPHILS # (AUTO) 5.9 X10'3 (1.8-7.7); NEUTROPHILS % (AUTO) 93.5 % (42-75); PLATELET COUNT 399 X10'3 (140-440); RED BLOOD COUNT 3.57 X10'6 (4.20-5.60); RED CELL DISTRIBUTION WIDTH 20.3 % (11.5-14.5); WHITE BLOOD COUNT 6.3 X10'3 (4.5-11.0)
[2020-10-04 07:09] LABS: ALANINE AMINOTRANSFERASE 18 U/L (12-78); ALBUMIN/GLOBULIN RATIO 0.5 (1.1-1.5); ALKALINE PHOSPHATASE 117 IU/L (46-116); ANION GAP 7 (8-16); ASPARTATE AMINO TRANSFERASE 9 U/L (10-37); BILIRUBIN,TOTAL 0.2 MG/DL (0.1-1.0); BLOOD UREA NITROGEN 17 MG/DL (7-18); BUN/CREATININE RATIO 19.3 (6.6-38.0); CALCIUM 9.5 MG/DL (8.5-10.1); CHLORIDE 111 MMOL/L (99-107); CREATININE 0.88 MG/DL (0.40-0.90); GLUCOSE 123 MG/DL (70-104); MAGNESIUM 2.8 MG/DL (1.5-2.4); PHOSPHORUS 4.2 MG/DL (2.3-4.5); POTASSIUM 4.7 MMOL/L (3.5-5.1); SODIUM 146 MMOL/L (135-145); TOTAL CARBON DIOXIDE 27.8 MMOL/L (24-32); TOTAL PROTEIN 6.4 G/DL (6.4-8.2); eGFR 64 ML/MIN
[2020-10-04 07:24] LABS: ANISOCYTOSIS 3+; MICROCYTOSIS 1+
[2020-10-04 07:26] LABS: HYPOCHROMASIA 1+; PLATELET ESTIMATE NORMAL
[2020-10-04 07:27] LABS: ELLIPTOCYTES FEW; POLYCHROMASIA FEW
[2020-10-04 07:28] LABS: STOMATOCYTES 1+
[2020-10-04] MEDS: K and/or MAG REPLACEMENT MC SCH ×2 (09:19→20:00)
[2020-10-04] MEDS: heparin, porcine 5000 units/ml vial SQ SCH ×2 (09:19→20:08)
[2020-10-04 11:11] VITALS: BP 136/80
[2020-10-04 15:15] VITALS: BP 125/50
[2020-10-04 18:00] VITALS: BP 131/60
--- NOTE | 2020-10-04 18:10 | NUR ---
Patient in room PCU 3009. I have received report from JASON Wang and had the opportunity to ask questions and assume patient care.
[2020-10-04] MEDS: sodium ferric gluc complex inj 125 MG in normal saline 100ml IV soln 90 ML IV SCH (20:07)
[2020-10-04] MEDS: diltiazem CD 120mg capsule (once-daily) PO SCH (20:07)
[2020-10-04] MEDS: HYDROcodone/acetaminophen 10/325mg tab PO PRN (20:09)
[2020-10-04 22:00] VITALS: BP 159/82
[2020-10-05] MEDS: ipratropium/albuterol 3ml nebule NEB SCH ×5 (00:07→15:14)
[2020-10-05 02:00] VITALS: BP 150/79
[2020-10-05] MEDS: methylPREDNISolone sod succ 125mg/2ml vial IV SCH ×2 (02:08→09:10)
[2020-10-05] MEDS: normal saline 1000ml 1,000 ML IV SCH (05:03)
--- NOTE | 2020-10-05 06:19 | NUR ---
Problems reprioritized. Patient report given, questions answered & plan of care reviewed with JASON Lopez.
--- NOTE | 2020-10-05 06:19 | NUR ---
Patient in room PCU 3009. I have received report from Mariana GOMEZ and had the opportunity to ask questions and assume patient care.
[2020-10-05 06:30] VITALS: BP 158/87
[2020-10-05 06:40] LABS: BASOPHILS % (AUTO) 0.1 % (0-1); EOSINOPHILS % (AUTO) 0 % (0-6); HEMATOCRIT 27.7 % (35.0-45.0); HEMOGLOBIN 8.3 g/dl (12.0-16.0); LYMPHOCYTES # (AUTO) 0.3 X10'3 (1.1-4.8); LYMPHOCYTES % (AUTO) 3.1 % (21-51); MEAN CORPUSCULAR HGB CONC 30.1 g/dL (33.0-36.5); MEAN CORPUSCULAR VOLUME 76.4 FL (78-98); MEAN PLATELET VOLUME 7.6 FL (7.4-10.4); MONOCYTES # (AUTO) 0.2 X10'3 (0-0.9); MONOCYTES % (AUTO) 1.7 % (2-12); NEUTROPHILS # (AUTO) 9.3 X10'3 (1.8-7.7); NEUTROPHILS % (AUTO) 95.1 % (42-75); PLATELET COUNT 394 X10'3 (140-440); RED BLOOD COUNT 3.62 X10'6 (4.20-5.60); RED CELL DISTRIBUTION WIDTH 20.4 % (11.5-14.5); WHITE BLOOD COUNT 9.7 X10'3 (4.5-11.0)
[2020-10-05 06:57] LABS: ALANINE AMINOTRANSFERASE 19 U/L (12-78); ALBUMIN 2.2 G/DL (3.4-5.0); ALBUMIN/GLOBULIN RATIO 0.5 (1.1-1.5); ALKALINE PHOSPHATASE 107 IU/L (46-116); ANION GAP 8 (8-16); ASPARTATE AMINO TRANSFERASE 7 U/L (10-37); BILIRUBIN,TOTAL 0.1 MG/DL (0.1-1.0); BLOOD UREA NITROGEN 26 MG/DL (7-18); BUN/CREATININE RATIO 24.8 (6.6-38.0); CALCIUM 8.4 MG/DL (8.5-10.1); CHLORIDE 108 MMOL/L (99-107); CREATININE 1.05 MG/DL (0.40-0.90); GLUCOSE 144 MG/DL (70-104); MAGNESIUM 2.7 MG/DL (1.5-2.4); PHOSPHORUS 3.3 MG/DL (2.3-4.5); POTASSIUM 4.5 MMOL/L (3.5-5.1); SODIUM 144 MMOL/L (135-145); TOTAL CARBON DIOXIDE 28.2 MMOL/L (24-32); TOTAL PROTEIN 6.6 G/DL (6.4-8.2); eGFR 53 ML/MIN
[2020-10-05] MEDS: K and/or MAG REPLACEMENT MC SCH (08:00)
[2020-10-05 08:55] LABS: ANISOCYTOSIS 3+; HYPOCHROMASIA 1+; MICROCYTOSIS 1+; PLATELET ESTIMATE NORMAL; POIKILOCYTOSIS 1+; POLYCHROMASIA FEW
[2020-10-05] MEDS: heparin, porcine 5000 units/ml vial SQ SCH (09:11)
[2020-10-05] MEDS: diltiazem CD 120mg capsule (once-daily) PO SCH (09:11)
[2020-10-05] MEDS: sodium ferric gluc complex inj 125 MG in normal saline 100ml IV soln 90 ML IV SCH (10:12)
[2020-10-05] MEDS ORDERED: FERR325T28 PO (10:29)
[2020-10-05] MEDS ORDERED: BUDE10.22 INH (10:29)
[2020-10-05] MEDS ORDERED: ASCO500C18 PO (10:29)
[2020-10-05] MEDS ORDERED: LEVA15HF4 INH (10:29)
[2020-10-05] MEDS ORDERED: LISI10TA4 PO (10:29)
[2020-10-05] MEDS ORDERED: PRED10TA23 PO (10:29)
[2020-10-05] MEDS ORDERED: DILT180C66 PO (10:30)
[2020-10-05 11:00] VITALS: BP 149/82
--- NOTE | 2020-10-05 11:05 | NUR ---
[employer] Zuleika said she will take care of the prescription to ensure patient got it. I called Grey Wilson, the Peer Support person at [phone], no answer so I left a message to call me back.
--- NOTE | 2020-10-05 12:41 | NUR ---
O2 Sat at rest on room air:__94_% If below 89%: Recovery O2 Sat at rest on ___LPM:___%:___% via (mask/nasal cannula, etc..) No further documentation is necessary. If O2 Sat did not drop below 89% on room air,ambulate patient on room air. O2 Sat while ambulating on room air:___% Recovery O2 Sat while ambulating on ___LPM:___% No further documentation is necessary. If patient does not drop below 89% while ambulating, he/she does not qualify for home O2.
--- NOTE | 2020-10-05 13:42 | NUR ---
Discharge instructions given to patient, patient verbalized understanding of all instructions made. Peripheral IV catheter removed, tip intact. Instructed patient to ensure she has all her belongings with her before leaving the hospital. LIZBETH To took care of prescriptions and home [facility]an [facility] service. Transportation arranged by Zuleika.
[2020-10-05] MEDS: HYDROcodone/acetaminophen 10/325mg tab PO PRN (14:43)
[2020-10-05] MEDS ORDERED: HYDR-4383 PO (14:50)
--- NOTE | 2020-10-05 15:07 | NUR ---
Wound dressing on the bilateral legs changed.
== END 2020-10-05 16:14 | disposition home health service (06) | DRG 133 ==
LOC: ER 07:03 → ED HOLD 15:21 → PCU 3S 20:05
PROVIDERS: ADMIT Family Medicine; ATTEND Family Medicine
DX: J96.20 Acute and chronic respiratory failure, unspecified whether with hypoxia or hypercapnia (principal); J44.1 Chronic obstructive pulmonary disease with (acute) exacerbation; D50.9 Iron deficiency anemia, unspecified; F20.9 Schizophrenia, unspecified; G93.40 Encephalopathy, unspecified; Z60.2 Problems related to living alone; L03.115 Cellulitis of right lower limb; E87.0 Hyperosmolality and hypernatremia; I10 Essential (primary) hypertension; Z20.822 Contact with and (suspected) exposure to COVID-19; L03.116 Cellulitis of left lower limb; L97.909 Non-pressure chronic ulcer of unspecified part of unspecified lower leg with unspecified severity; Z86.73 Personal history of transient ischemic attack (TIA), and cerebral infarction without residual deficits; Z91.19 Patient's noncompliance with other medical treatment and regimen; Z88.8 Allergy status to other drugs, medicaments and biological substances
CPT/HCPCS: 36415; 71045; 76937; 80053; 82948; 83735; 84100; 84145; 84484; 85008; 85025; 85610; 85730; 87081; 87635; 92508; 92616; 93005; 94640; 94760; 96365; 96375; 97110; 97161; 97530; 99285; C9803; G0378; J1644; J2916; J2930; J3105; J3475; J7030

== ENCOUNTER 2020-10-11 03:49 | Emergency (ER) | payer MEDICAID ==
[~2020-10-11] VITALS: Ht 162.6 cm; Wt 90.9 kg
[~2020-10-11 03:49] MED LIST changes: +ASCO500C18 PO; +BACI30OI9 TOP; +BUDE10.22 INH; +DILT180C66 PO; +FERR325T28 PO; +HYDR-4383 PO; +LEVA15HF4 INH; +LISI10TA4 PO; +NO HOME MEDS; +PRED10TA23 PO
[2020-10-11] MEDS: naproxen 500mg tablet PO ONE (05:39)
[2020-10-11 05:49] VITALS: BP 162/95
== END 2020-10-11 05:56 | disposition home or self-care (01) ==
LOC: ER 03:50
DX: M54.89 Other dorsalgia (principal); J44.9 Chronic obstructive pulmonary disease, unspecified; F20.9 Schizophrenia, unspecified; Z86.73 Personal history of transient ischemic attack (TIA), and cerebral infarction without residual deficits; Z87.01 Personal history of pneumonia (recurrent); Z85.9 Personal history of malignant neoplasm, unspecified; Z60.2 Problems related to living alone; Z79.899 Other long term (current) drug therapy; W19.XXXA Unspecified fall, initial encounter; Y93.89 Activity, other specified; Y92.89 Other specified places as the place of occurrence of the external cause; Y99.8 Other external cause status
CPT/HCPCS: 99284

== ENCOUNTER 2020-10-16 02:42 | Emergency (ER) | payer MEDICAID ==
[~2020-10-16] VITALS: Ht 165.1 cm; Wt 113.0 kg
[~2020-10-16 02:42] MED LIST changes: -ATR0.5NEB NEB; -BACI1PAC7 TOP; -BUDE0.5A3 NEB; -CARCD120C PO; -FURO-150 PO; -LISI-600 PO; -NEOM28OI32 TP; -NO HOME MEDS; -NYSPWD TP; -PANT-47 PO
[2020-10-16] MEDS ORDERED: HYDROcodone/acetaminophen 10/325mg tab PO ONE (03:05)
--- NOTE | 2020-10-16 03:36 | NUR ---
PT IS WHEEZY THROUGHOUT ALL LUNG CHAPMAN. STATES SHE HAS BEEN MORE SOB TODAY, BUT REPORTS IT IS LIKELY DUE TO HER LEG PAIN. DR. COCHRAN AWARE. NO NEW ORDERS RECEIVED.
[2020-10-16 03:47] LABS: ALBUMIN 2.6 G/DL (3.4-5.0); ANION GAP 9 (8-16); BLOOD UREA NITROGEN 14 MG/DL (7-18); BUN/CREATININE RATIO 12.8 (6.6-38.0); CALCIUM 8.7 MG/DL (8.5-10.1); CHLORIDE 109 MMOL/L (99-107); CREATININE 1.09 MG/DL (0.40-0.90); GLUCOSE 97 MG/DL (70-104); POTASSIUM 3.7 MMOL/L (3.5-5.1); SODIUM 145 MMOL/L (135-145); TOTAL CARBON DIOXIDE 26.9 MMOL/L (24-32); eGFR 50 ML/MIN
[2020-10-16 03:51] LABS: BASOPHILS # (AUTO) 0.1 X10'3 (0-0.2); BASOPHILS % (AUTO) 0.9 % (0-1); EOSINOPHILS # (AUTO) 0.1 X10'3 (0-0.9); EOSINOPHILS % (AUTO) 1.2 % (0-6); HEMOGLOBIN 9.5 g/dl (12.0-16.0); LYMPHOCYTES # (AUTO) 1.3 X10'3 (1.1-4.8); LYMPHOCYTES % (AUTO) 13.4 % (21-51); MEAN CORPUSCULAR HEMOGLOBIN 23.8 PG (27.0-31.0); MEAN CORPUSCULAR HGB CONC 30.6 g/dL (33.0-36.5); MEAN CORPUSCULAR VOLUME 77.8 FL (78-98); MONOCYTES # (AUTO) 1.3 X10'3 (0-0.9); MONOCYTES % (AUTO) 13.2 % (2-12); NEUTROPHILS # (AUTO) 6.9 X10'3 (1.8-7.7); NEUTROPHILS % (AUTO) 71.3 % (42-75); PLATELET COUNT 494 X10'3 (140-440); RED BLOOD COUNT 3.98 X10'6 (4.20-5.60); RED CELL DISTRIBUTION WIDTH 21.5 % (11.5-14.5); WHITE BLOOD COUNT 9.7 X10'3 (4.5-11.0)
[2020-10-16 05:40] VITALS: BP 130/70
--- NOTE | 2020-10-16 05:43 | NUR ---
DR FUNEZ TALKING WITH PT ABOUT DC. [facility] CALLED FOR TRANSPORT. PTS LEGS CLEANED, BARRIER CREAM APPLIED AND XERIFORM TO OPEN WOUNDS, WRAPPED WITH KERLIX X2 AND CAL BANDAGE. PT TOLERATED PRECEDURE WELL.
[2020-10-16 06:15] LABS: ANISOCYTOSIS 3+; HYPOCHROMASIA 1+; MICROCYTOSIS 1+; PLATELET ESTIMATE INCREASED; POLYCHROMASIA FEW; TOTAL CELLS COUNTED 100
[2020-10-16 06:17] LABS: STOMATOCYTES FEW
== END 2020-10-16 07:24 | disposition home or self-care (01) ==
LOC: ER 02:43
DX: M79.605 Pain in left leg (principal); L97.929 Non-pressure chronic ulcer of unspecified part of left lower leg with unspecified severity; L97.919 Non-pressure chronic ulcer of unspecified part of right lower leg with unspecified severity; I87.2 Venous insufficiency (chronic) (peripheral); I87.322 Chronic venous hypertension (idiopathic) with inflammation of left lower extremity; J44.9 Chronic obstructive pulmonary disease, unspecified; Z86.73 Personal history of transient ischemic attack (TIA), and cerebral infarction without residual deficits; Z87.01 Personal history of pneumonia (recurrent); Z85.9 Personal history of malignant neoplasm, unspecified; Z60.9 Problem related to social environment, unspecified; Z79.899 Other long term (current) drug therapy
CPT/HCPCS: 36415; 80048; 85007; 85025; 99284

== ENCOUNTER 2020-10-19 20:17 | Emergency (ER) | payer MEDICAID ==
[~2020-10-19] VITALS: Ht 165.1 cm; Wt 113.6 kg
[2020-10-19] MEDS ORDERED: HYDROcodone/acetaminophen 5mg/325mg tablet PO ONE (21:05)
[2020-10-19 21:19] VITALS: BP 165/96
[2020-10-20] MEDS ORDERED: AZIT250T PO (10:54)
[2020-10-20] MEDS ORDERED: PRED20TA PO (10:54)
== END 2020-10-19 21:23 | disposition home or self-care (01) ==
LOC: ER 20:18
DX: I87.8 Other specified disorders of veins (principal); M79.605 Pain in left leg; M79.604 Pain in right leg; J44.9 Chronic obstructive pulmonary disease, unspecified; F20.9 Schizophrenia, unspecified; Z86.73 Personal history of transient ischemic attack (TIA), and cerebral infarction without residual deficits; Z87.01 Personal history of pneumonia (recurrent); Z85.9 Personal history of malignant neoplasm, unspecified; Z88.8 Allergy status to other drugs, medicaments and biological substances; Z79.2 Long term (current) use of antibiotics; Z79.899 Other long term (current) drug therapy
CPT/HCPCS: 99284

== ENCOUNTER 2020-10-20 08:57 | Emergency (ER) | payer MEDICAID ==
[~2020-10-20] VITALS: Ht 165.1 cm; Wt 104.5 kg
[2020-10-20] MEDS ORDERED: ipratropium/albuterol 3ml nebule NEB ONE (09:10)
[2020-10-20] MEDS ORDERED: albuterol 2.5 MG/3 ML nebule NEB ONE (09:10)
[2020-10-20] MEDS ORDERED: methylPREDNISolone sod succ 125mg/2ml vial IV ONE (09:10)
[2020-10-20 09:41] LABS: BASOPHILS # (AUTO) 0.1 X10'3 (0-0.2); EOSINOPHILS # (AUTO) 0.1 X10'3 (0-0.9); EOSINOPHILS % (AUTO) 0.7 % (0-6); HEMATOCRIT 30.2 % (35.0-45.0); HEMOGLOBIN 9.2 g/dl (12.0-16.0); LYMPHOCYTES % (AUTO) 9.4 % (21-51); MEAN CORPUSCULAR HEMOGLOBIN 23.8 PG (27.0-31.0); MEAN CORPUSCULAR HGB CONC 30.6 g/dL (33.0-36.5); MEAN CORPUSCULAR VOLUME 77.7 FL (78-98); MEAN PLATELET VOLUME 7.5 FL (7.4-10.4); MONOCYTES # (AUTO) 0.8 X10'3 (0-0.9); MONOCYTES % (AUTO) 7.4 % (2-12); NEUTROPHILS # (AUTO) 8.6 X10'3 (1.8-7.7); NEUTROPHILS % (AUTO) 81.5 % (42-75); PLATELET COUNT 446 X10'3 (140-440); RED BLOOD COUNT 3.88 X10'6 (4.20-5.60); RED CELL DISTRIBUTION WIDTH 21.9 % (11.5-14.5); WHITE BLOOD COUNT 10.6 X10'3 (4.5-11.0)
[2020-10-20 09:59] LABS: ALANINE AMINOTRANSFERASE 25 U/L (12-78); ALBUMIN 2.4 G/DL (3.4-5.0); ALBUMIN/GLOBULIN RATIO 0.5 (1.1-1.5); ALKALINE PHOSPHATASE 138 IU/L (46-116); ANION GAP 7 (8-16); ASPARTATE AMINO TRANSFERASE 20 U/L (10-37); BILIRUBIN,TOTAL 0.3 MG/DL (0.1-1.0); BLOOD UREA NITROGEN 15 MG/DL (7-18); BUN/CREATININE RATIO 14.7 (6.6-38.0); CALCIUM 8.9 MG/DL (8.5-10.1); CHLORIDE 110 MMOL/L (99-107); CREATININE 1.02 MG/DL (0.40-0.90); GLUCOSE 93 MG/DL (70-104); POTASSIUM 4.2 MMOL/L (3.5-5.1); SODIUM 146 MMOL/L (135-145); TOTAL CARBON DIOXIDE 28.7 MMOL/L (24-32); TOTAL PROTEIN 6.8 G/DL (6.4-8.2); eGFR 54 ML/MIN
[2020-10-20 10:09] LABS: TOTAL CELLS COUNTED 100
[2020-10-20 10:10] LABS: ANISOCYTOSIS 3+; HYPOCHROMASIA 1+; MICROCYTOSIS 1+; PLATELET ESTIMATE INCREASED; POLYCHROMASIA 1+; STOMATOCYTES 1+
[2020-10-20] MEDS ORDERED: HYDROcodone/acetaminophen 10/325mg tab PO ONE (10:30)
[2020-10-20] MEDS ORDERED: PRED20TA PO (10:54)
[2020-10-20] MEDS ORDERED: AZIT250T PO (10:54)
--- NOTE | 2020-10-20 11:40 | NUR ---
pt not awakening enough to answer questions. will notify md to get additional orders. vitals stable.
[2020-10-20 11:42] VITALS: BP 132/86
--- NOTE | 2020-10-20 12:10 | NUR ---
dr Mancilla in to speak to pt to let her know about dc plan. pt able to stand and transfer self to w/c after placing non slip socks on feet. pt stated she will walk to taxi cab if one was called for her.
== END 2020-10-20 17:06 | disposition home or self-care (01) ==
LOC: ER 08:57
DX: J44.1 Chronic obstructive pulmonary disease with (acute) exacerbation (principal); S32.040A Wedge compression fracture of fourth lumbar vertebra, initial encounter for closed fracture; S22.080A Wedge compression fracture of T11-T12 vertebra, initial encounter for closed fracture; S39.012A Strain of muscle, fascia and tendon of lower back, initial encounter; G89.29 Other chronic pain; Z87.01 Personal history of pneumonia (recurrent); Z85.9 Personal history of malignant neoplasm, unspecified; Z72.89 Other problems related to lifestyle; Z86.73 Personal history of transient ischemic attack (TIA), and cerebral infarction without residual deficits; Z88.8 Allergy status to other drugs, medicaments and biological substances; Z79.2 Long term (current) use of antibiotics; Z79.899 Other long term (current) drug therapy; W22.8XXA Striking against or struck by other objects, initial encounter; Y93.89 Activity, other specified; Y92.009 Unspecified place in unspecified non-institutional (private) residence as the place of occurrence of the external cause; Y99.8 Other external cause status
CPT/HCPCS: 36415; 71045; 72100; 80053; 83880; 84484; 85007; 85025; 93005; 94640; 96374; 99285; J2930; 94760

== ENCOUNTER 2020-10-22 09:36 | Emergency (ER) | payer MEDICAID ==
[~2020-10-22] VITALS: Ht 165.1 cm; Wt 116.4 kg
[~2020-10-22 09:36] MED LIST changes: +AZIT250T PO; +PRED20TA PO
[2020-10-22 09:40] VITALS: BP 175/111
--- NOTE | 2020-10-22 10:08 | NUR ---
PT STATES SHE WAS IN HER KITCHEN WHEN HER KNEES BUCKELED AND SHE FELL DOWN SAYS SHE SCRAPED HER BACK. BACK IS CLEAR SAYS SHE FELT IT INSIDE OF HER
[2020-10-22 10:30] LABS: BASOPHILS # (AUTO) 0.1 X10'3 (0-0.2); BASOPHILS % (AUTO) 0.8 % (0-1); EOSINOPHILS # (AUTO) 0.1 X10'3 (0-0.9); EOSINOPHILS % (AUTO) 0.7 % (0-6); HEMATOCRIT 30.6 % (35.0-45.0); HEMOGLOBIN 9.1 g/dl (12.0-16.0); LYMPHOCYTES # (AUTO) 1.3 X10'3 (1.1-4.8); LYMPHOCYTES % (AUTO) 12.1 % (21-51); MEAN CORPUSCULAR HGB CONC 29.6 g/dL (33.0-36.5); MEAN CORPUSCULAR VOLUME 77.7 FL (78-98); MEAN PLATELET VOLUME 7.4 FL (7.4-10.4); MONOCYTES # (AUTO) 0.8 X10'3 (0-0.9); MONOCYTES % (AUTO) 7.7 % (2-12); NEUTROPHILS # (AUTO) 8.4 X10'3 (1.8-7.7); NEUTROPHILS % (AUTO) 78.7 % (42-75); PLATELET COUNT 461 X10'3 (140-440); RED BLOOD COUNT 3.94 X10'6 (4.20-5.60); RED CELL DISTRIBUTION WIDTH 21.8 % (11.5-14.5); WHITE BLOOD COUNT 10.7 X10'3 (4.5-11.0)
[2020-10-22] MEDS ORDERED: furosemide 10 MG/1 ML 10ml inj IV ONE (10:40)
[2020-10-22 10:57] LABS: ALANINE AMINOTRANSFERASE 25 U/L (12-78); ALBUMIN 2.6 G/DL (3.4-5.0); ALBUMIN/GLOBULIN RATIO 0.6 (1.1-1.5); ALKALINE PHOSPHATASE 129 IU/L (46-116); ANION GAP 6 (8-16); ASPARTATE AMINO TRANSFERASE 16 U/L (10-37); BILIRUBIN,TOTAL 0.1 MG/DL (0.1-1.0); BLOOD UREA NITROGEN 17 MG/DL (7-18); CALCIUM 8.6 MG/DL (8.5-10.1); CHLORIDE 109 MMOL/L (99-107); GLUCOSE 90 MG/DL (70-104); POTASSIUM 4.5 MMOL/L (3.5-5.1); SODIUM 146 MMOL/L (135-145); TOTAL CARBON DIOXIDE 31.3 MMOL/L (24-32); TOTAL PROTEIN 7.1 G/DL (6.4-8.2); eGFR 56 ML/MIN
[2020-10-22 10:59] LABS: PLATELET ESTIMATE INCREASED
[2020-10-22 11:00] LABS: ANISOCYTOSIS 3+; HYPOCHROMASIA 2+; MICROCYTOSIS 1+
[2020-10-22] MEDS ORDERED: HYDROcodone/acetaminophen 5mg/325mg tablet PO ONE (11:15)
[2020-10-22] MEDS ORDERED: FURO-150 PO (11:18)
[2020-10-22] MEDS ORDERED: POTA10TA10 PO (11:18)
== END 2020-10-22 15:12 | disposition home or self-care (01) ==
LOC: ER 09:37
DX: I87.2 Venous insufficiency (chronic) (peripheral) (principal); L03.116 Cellulitis of left lower limb; L03.115 Cellulitis of right lower limb; J44.9 Chronic obstructive pulmonary disease, unspecified; Z88.8 Allergy status to other drugs, medicaments and biological substances; Z79.2 Long term (current) use of antibiotics; Z79.899 Other long term (current) drug therapy; Z86.73 Personal history of transient ischemic attack (TIA), and cerebral infarction without residual deficits; Z87.01 Personal history of pneumonia (recurrent); Z86.19 Personal history of other infectious and parasitic diseases; Z91.81 History of falling
CPT/HCPCS: 36415; 71045; 80053; 83880; 84145; 84484; 85008; 85025; 93005; 96374; 99285; J1940

== ENCOUNTER 2020-10-24 20:58 | Emergency (ER) | payer MEDICAID ==
[~2020-10-24] VITALS: Ht 165.1 cm; Wt 90.9 kg
[~2020-10-24 20:58] MED LIST changes: +FURO-150 PO; +POTA10TA10 PO
[2020-10-24 21:13] VITALS: BP 145/83
[2020-10-24] MEDS ORDERED: ipratropium/albuterol 3ml nebule NEB ONE (23:00)
--- NOTE | 2020-10-24 23:47 | NUR ---
[facility] will be here in about 45 minutes.
--- NOTE | 2020-10-24 23:54 | NUR ---
[facility] CALLED BACK THEY WONT BE ABLE TO PICK PT UP UNTIL 5:30AM CHARGE NURSE AWARE.
--- NOTE | 2020-10-25 00:03 | NUR ---
pt to be moved to room 11
== END 2020-10-25 05:46 | disposition home or self-care (01) ==
LOC: ER 20:58
DX: M79.605 Pain in left leg (principal); M79.604 Pain in right leg; R06.02 Shortness of breath; J44.9 Chronic obstructive pulmonary disease, unspecified; F20.9 Schizophrenia, unspecified; Z86.73 Personal history of transient ischemic attack (TIA), and cerebral infarction without residual deficits; Z87.01 Personal history of pneumonia (recurrent); Z85.9 Personal history of malignant neoplasm, unspecified; Z60.2 Problems related to living alone; Z88.8 Allergy status to other drugs, medicaments and biological substances; Z79.2 Long term (current) use of antibiotics; Z79.899 Other long term (current) drug therapy
CPT/HCPCS: 94640; 94760; 99283

== ENCOUNTER 2020-10-26 09:00 | Emergency (ER) | payer MEDICAID ==
[~2020-10-26] VITALS: Ht 165.1 cm; Wt 90.9 kg
[2020-10-26] MEDS ORDERED: potassium Cl 20 mEq SR tablet PO STA (10:09)
[2020-10-26] MEDS ORDERED: furosemide 10 MG/1 ML 10ml inj IV ONE (10:10)
[2020-10-26 10:31] LABS: BASOPHILS % (AUTO) 0.2 % (0-1); EOSINOPHILS # (AUTO) 0.1 X10'3 (0-0.9); EOSINOPHILS % (AUTO) 0.8 % (0-6); HEMATOCRIT 29.9 % (35.0-45.0); HEMOGLOBIN 8.9 g/dl (12.0-16.0); LYMPHOCYTES # (AUTO) 1.3 X10'3 (1.1-4.8); MEAN CORPUSCULAR HEMOGLOBIN 23.1 PG (27.0-31.0); MEAN CORPUSCULAR HGB CONC 29.7 g/dL (33.0-36.5); MEAN CORPUSCULAR VOLUME 77.7 FL (78-98); MEAN PLATELET VOLUME 7.7 FL (7.4-10.4); MONOCYTES # (AUTO) 1.3 X10'3 (0-0.9); NEUTROPHILS # (AUTO) 10.1 X10'3 (1.8-7.7); PLATELET COUNT 496 X10'3 (140-440); RED BLOOD COUNT 3.84 X10'6 (4.20-5.60); RED CELL DISTRIBUTION WIDTH 21.2 % (11.5-14.5); WHITE BLOOD COUNT 12.8 X10'3 (4.5-11.0)
[2020-10-26 10:45] LABS: ALANINE AMINOTRANSFERASE 24 U/L (12-78); ALBUMIN 2.4 G/DL (3.4-5.0); ALBUMIN/GLOBULIN RATIO 0.5 (1.1-1.5); ALKALINE PHOSPHATASE 117 IU/L (46-116); ANION GAP 3 (8-16); ASPARTATE AMINO TRANSFERASE 18 U/L (10-37); BILIRUBIN,TOTAL 0.2 MG/DL (0.1-1.0); BLOOD UREA NITROGEN 21 MG/DL (7-18); BUN/CREATININE RATIO 17.6 (6.6-38.0); CALCIUM 8.5 MG/DL (8.5-10.1); CHLORIDE 107 MMOL/L (99-107); CREATININE 1.19 MG/DL (0.40-0.90); GLUCOSE 98 MG/DL (70-104); POTASSIUM 4.2 MMOL/L (3.5-5.1); SODIUM 138 MMOL/L (135-145); TOTAL CARBON DIOXIDE 28.3 MMOL/L (24-32); eGFR 46 ML/MIN
--- NOTE | 2020-10-26 10:45 | NUR ---
Pt up to BSC and back to bed with standby assistance.
[2020-10-26 11:04] LABS: ANISOCYTOSIS 3+; GIANT PLATELET FEW; MICROCYTOSIS 1+; PLATELET ESTIMATE INCREASED; POLYCHROMASIA 1+
[2020-10-26 11:05] LABS: HYPOCHROMASIA 2+; ROULEAUX 1+
[2020-10-26 11:14] VITALS: BP 168/76
--- NOTE | 2020-10-26 11:32 | NUR ---
Removed pt's saturated dressings. Applied Xeroform and zuleika to bilateral lower legs and feet. Secured with tape. Timed, dated, and initialed dressings.
[2020-10-27] MEDS ORDERED: FURO20TA4 PO (12:43)
[2020-10-27] MEDS ORDERED: BUDE10.27 PO (12:43)
[2020-10-27] MEDS ORDERED: FERR325T7 PO (12:43)
[2020-10-27] MEDS ORDERED: LISI10TA4 PO (12:43)
[2020-10-27] MEDS ORDERED: POTA10TA PO (12:43)
[2020-10-27] MEDS ORDERED: DILT-36 PO (12:43)
[2020-10-27] MEDS ORDERED: ATRIN PO (12:43)
[2020-10-27] MEDS ORDERED: RISP1TAB98 PO (12:43)
== END 2020-10-26 11:58 | disposition home or self-care (01) ==
LOC: ER 09:01
DX: G89.29 Other chronic pain (principal); M79.605 Pain in left leg; M79.604 Pain in right leg; R06.02 Shortness of breath; J44.9 Chronic obstructive pulmonary disease, unspecified; F20.9 Schizophrenia, unspecified; Z86.73 Personal history of transient ischemic attack (TIA), and cerebral infarction without residual deficits; Z87.01 Personal history of pneumonia (recurrent); Z85.9 Personal history of malignant neoplasm, unspecified; Z60.2 Problems related to living alone; Z88.8 Allergy status to other drugs, medicaments and biological substances; Z79.2 Long term (current) use of antibiotics; Z79.899 Other long term (current) drug therapy
CPT/HCPCS: 36415; 71045; 80053; 83605; 83880; 84484; 85008; 85025; 85379; 87040; 93005; 96374; 99285; J1940

== ENCOUNTER 2020-10-27 09:07 | Inpatient (IN) | payer MEDICAID ==
[~2020-10-27] VITALS: Ht 165.1 cm; Wt 104.0 kg
[~2020-10-27 09:07] MED LIST changes: -AZIT250T PO; -PRED20TA PO
[2020-10-27] MEDS ORDERED: ipratropium/albuterol 3ml nebule NEB ONE (09:40)
[2020-10-27] MEDS ORDERED: methylPREDNISolone sod succ 125mg/2ml vial IV ONE (09:40)
[2020-10-27] MEDS ORDERED: levoFLOXACIN-Levaquin 750MG/D5 150 ML IV ONE (09:40)
[2020-10-27] MEDS ORDERED: albuterol 2.5 MG/3 ML nebule NEB ONE (09:40)
[2020-10-27 10:42] LABS: BASOPHILS # (AUTO) 0.1 X10'3 (0-0.2); EOSINOPHILS # (AUTO) 0.1 X10'3 (0-0.9); EOSINOPHILS % (AUTO) 0.7 % (0-6); HEMATOCRIT 30.3 % (35.0-45.0); HEMOGLOBIN 9.2 g/dl (12.0-16.0); LYMPHOCYTES # (AUTO) 1.2 X10'3 (1.1-4.8); LYMPHOCYTES % (AUTO) 12.2 % (21-51); MEAN CORPUSCULAR HEMOGLOBIN 23.4 PG (27.0-31.0); MEAN CORPUSCULAR HGB CONC 30.4 g/dL (33.0-36.5); MEAN CORPUSCULAR VOLUME 76.9 FL (78-98); MEAN PLATELET VOLUME 7.7 FL (7.4-10.4); MONOCYTES # (AUTO) 1.1 X10'3 (0-0.9); MONOCYTES % (AUTO) 10.8 % (2-12); NEUTROPHILS # (AUTO) 7.7 X10'3 (1.8-7.7); NEUTROPHILS % (AUTO) 75.3 % (42-75); PLATELET COUNT 506 X10'3 (140-440); RED BLOOD COUNT 3.94 X10'6 (4.20-5.60); RED CELL DISTRIBUTION WIDTH 21.1 % (11.5-14.5); WHITE BLOOD COUNT 10.2 X10'3 (4.5-11.0)
[2020-10-27 10:56] LABS: ALANINE AMINOTRANSFERASE 24 U/L (12-78); ALBUMIN 2.4 G/DL (3.4-5.0); ALBUMIN/GLOBULIN RATIO 0.5 (1.1-1.5); ALKALINE PHOSPHATASE 122 IU/L (46-116); ANION GAP 7 (8-16); ASPARTATE AMINO TRANSFERASE 16 U/L (10-37); BILIRUBIN,TOTAL 0.2 MG/DL (0.1-1.0); BLOOD UREA NITROGEN 25 MG/DL (7-18); BUN/CREATININE RATIO 19.5 (6.6-38.0); CALCIUM 8.9 MG/DL (8.5-10.1); CHLORIDE 105 MMOL/L (99-107); CREATININE 1.28 MG/DL (0.40-0.90); GLUCOSE 101 MG/DL (70-104); MAGNESIUM 2.5 MG/DL (1.5-2.4); POTASSIUM 4.4 MMOL/L (3.5-5.1); SODIUM 141 MMOL/L (135-145); TOTAL CARBON DIOXIDE 28.6 MMOL/L (24-32); TOTAL PROTEIN 7.3 G/DL (6.4-8.2); eGFR 42 ML/MIN
[2020-10-27 12:23] LABS: CLARITY,URINE CLEAR (Clear); COLOR,URINE YELLOW (Yellow); GLUCOSE, URINE NEGATIVE (Neg); KETONES,URINE NEGATIVE (Neg); LEUKOCYTE ESTERASE ,URINE NEGATIVE (Neg); NITRITES, URINE NEGATIVE (Neg); OCCULT BLOOD,URINE NEGATIVE (Neg); PH,URINE 5.5 (4.8-8.0); PROTEIN,URINE TRACE mg/dl (Neg); UROBILINOGEN,URINE 0.2 E.U/dL (0.2-1.0)
[2020-10-27] MEDS ORDERED: mag hydrox/Alum hydrox/simeth 30ml oral suspension PO PRN (12:25)
[2020-10-27] MEDS ORDERED: ondansetron/PF 4mg/2ml inj IV PRN (12:25)
[2020-10-27] MEDS ORDERED: magnesium hydroxide 30ml (MOM) UD suspension PO PRN (12:25)
[2020-10-27] MEDS ORDERED: acetaminophen 325mg tablet PO PRN (12:25)
[2020-10-27 12:26] LABS: UA COLLECTION TYPE STRAIGHT CATH
[2020-10-27 12:29] LABS: BACTERIA,URINE NONE SEEN /HPF (Neg); MUCUS STRANDS FEW /LPF (Neg); RBC,URINE NONE SEEN /HPF (0-2); SQUAMOUS EPITHELIAL CELL,UR NONE SEEN /LPF (FEW); WBC,URINE 0-4 /HPF (0-4)
[2020-10-27 12:30] LABS: COARSE GRANULAR CAST 0-3 /LPF (NEGATIVE)
[2020-10-27] MEDS ORDERED: FURO20TA4 PO (12:43)
[2020-10-27] MEDS ORDERED: RISP1TAB98 PO (12:43)
[2020-10-27] MEDS ORDERED: BUDE10.27 PO (12:43)
[2020-10-27] MEDS ORDERED: ATRIN PO (12:43)
[2020-10-27] MEDS ORDERED: FERR325T7 PO (12:43)
[2020-10-27] MEDS ORDERED: POTA10TA PO (12:43)
[2020-10-27] MEDS ORDERED: DILT-36 PO (12:43)
[2020-10-27] MEDS ORDERED: LISI10TA4 PO (12:43)
--- NOTE | 2020-10-27 13:53 | NUR ---
PAGER ID: [phone] MESSAGE: LILLIE [phone] RE: SUDAKOW BED 6 HR NOW 128,
--- NOTE | 2020-10-27 14:30 | NUR ---
Dr. Beebe came to see patient at bedside. He was aware of the HR 130's, RR 26. He also looked at the bruise on patient's sacrum from the fall at home. CT chest to r/o PE ordered as per Dr. Beebe instruction
[2020-10-27 14:45] VITALS: BP 137/76
[2020-10-27] MEDS: levalbuterol 0.63mg/3ml nebule IH SCH ×2 (15:00→20:12)
[2020-10-27] MEDS ORDERED: diltiazem CD 180mg cap (once-daily) PO ONE (15:00)
[2020-10-27] MEDS ORDERED: ipratropium/albuterol 3ml nebule NEB SCH (15:00)
[2020-10-27] MEDS ORDERED: albuterol 2.5 MG/3 ML nebule NEB PRN (15:10)
[2020-10-27] MEDS ORDERED: ipratropium 0.5 MG/2.5ML nebule IH PRN (15:10)
--- NOTE | 2020-10-27 15:26 | NUR ---
CT scan department notified that patient just finished echo at bedside and that patient is ready for CT chest via gurney with portable oxygen
[2020-10-27] MEDS ORDERED: iohexol 350MG/ML 100ml bottle IV ONE (15:51)
[2020-10-27] MEDS: ceFAZolin/D5W- 1GM premix 50 ML IV SCH (16:18)
--- NOTE | 2020-10-27 16:32 | NUR ---
Paged Dr. Beebe PAGER ID: [phone] MESSAGE: LOLIS Lopez RN ext [phone]. RE: Lena Pretty. She is complaining of pain on her leg wounds. Can she has pain medicine order?
--- NOTE | 2020-10-27 18:49 | NUR ---
Problems reprioritized. Patient report given, questions answered & plan of care reviewed with Lina GOMEZ.
[2020-10-27 19:00] VITALS: BP 140/72
[2020-10-27] MEDS: budesonide 0.5mg/2ml UD nebule IH SCH (20:12)
[2020-10-27] MEDS: ferrous sulfate 325mg tablet PO SCH (20:33)
[2020-10-27] MEDS: nystatin 15 GM powder TP SCH (20:33)
[2020-10-27] MEDS: methylPREDNISolone sod succ 125mg/2ml vial IV SCH (20:35)
[2020-10-27] MEDS: heparin, porcine 5000 units/ml vial SQ SCH (20:37)
[2020-10-27] MEDS: HYDROcodone/acetaminophen 10/325mg tab PO PRN (21:48)
[2020-10-27 22:00] VITALS: BP 134/68
[2020-10-28] MEDS: ceFAZolin/D5W- 1GM premix 50 ML IV SCH ×3 (00:12→16:46)
[2020-10-28 02:00] VITALS: BP 112/53
[2020-10-28] MEDS: levalbuterol 0.63mg/3ml nebule IH SCH ×4 (02:41→20:02)
[2020-10-28 06:26] LABS: ANION GAP 5 (8-16); BLOOD UREA NITROGEN 24 MG/DL (7-18); BUN/CREATININE RATIO 21.1 (6.6-38.0); CALCIUM 8.5 MG/DL (8.5-10.1); CHLORIDE 109 MMOL/L (99-107); CREATININE 1.14 MG/DL (0.40-0.90); GLUCOSE 127 MG/DL (70-104); POTASSIUM 4.6 MMOL/L (3.5-5.1); SODIUM 143 MMOL/L (135-145); TOTAL CARBON DIOXIDE 28.7 MMOL/L (24-32); eGFR 48 ML/MIN
[2020-10-28 06:40] LABS: BASOPHILS % (AUTO) 0.1 % (0-1); EOSINOPHILS % (AUTO) 0 % (0-6); HEMATOCRIT 26.1 % (35.0-45.0); HEMOGLOBIN 7.8 g/dl (12.0-16.0); LYMPHOCYTES # (AUTO) 0.5 X10'3 (1.1-4.8); LYMPHOCYTES % (AUTO) 4.6 % (21-51); MEAN CORPUSCULAR HEMOGLOBIN 23.3 PG (27.0-31.0); MEAN CORPUSCULAR HGB CONC 30.1 g/dL (33.0-36.5); MEAN CORPUSCULAR VOLUME 77.7 FL (78-98); MEAN PLATELET VOLUME 7.8 FL (7.4-10.4); MONOCYTES # (AUTO) 0.4 X10'3 (0-0.9); MONOCYTES % (AUTO) 3.2 % (2-12); NEUTROPHILS # (AUTO) 10.5 X10'3 (1.8-7.7); NEUTROPHILS % (AUTO) 92.1 % (42-75); PLATELET COUNT 432 X10'3 (140-440); RED BLOOD COUNT 3.36 X10'6 (4.20-5.60); RED CELL DISTRIBUTION WIDTH 20.9 % (11.5-14.5); WHITE BLOOD COUNT 11.4 X10'3 (4.5-11.0)
[2020-10-28 07:00] VITALS: BP 120/62
[2020-10-28 07:48] LABS: PLATELET ESTIMATE NORMAL; POLYCHROMASIA 2+
[2020-10-28 07:49] LABS: ANISOCYTOSIS 3+; HYPOCHROMASIA 1+; MICROCYTOSIS 1+; ROULEAUX 1+
[2020-10-28] MEDS: budesonide 0.5mg/2ml UD nebule IH SCH ×2 (08:13→20:02)
[2020-10-28] MEDS: diltiazem CD 180mg cap (once-daily) PO SCH (08:23)
[2020-10-28] MEDS: ferrous sulfate 325mg tablet PO SCH ×2 (08:23→21:31)
[2020-10-28] MEDS: potassium chloride 10mEq ER tablet PO SCH (08:24)
[2020-10-28] MEDS: risperiDONE 0.5mg tablet PO SCH (08:24)
[2020-10-28] MEDS: lisinopril 10 MG tablet PO SCH (08:25)
[2020-10-28] MEDS: methylPREDNISolone sod succ 125mg/2ml vial IV SCH ×2 (08:25→21:32)
[2020-10-28] MEDS: heparin, porcine 5000 units/ml vial SQ SCH ×2 (08:25→21:32)
[2020-10-28] MEDS: nystatin 15 GM powder TP SCH ×3 (08:26→21:36)
[2020-10-28 11:00] VITALS: BP 106/51
--- NOTE | 2020-10-28 18:30 | NUR ---
Patient in room PCU 3010. I have received report from RAMON and had the opportunity to ask questions and assume patient care.
[2020-10-28 19:00] VITALS: BP 133/41
[2020-10-28] MEDS: HYDROcodone/acetaminophen 10/325mg tab PO PRN (19:56)
[2020-10-28] MEDS: lactobacillus rhamnosus 10,000 MMU CELLS/CAPSULE PO SCH (21:31)
[2020-10-28 22:00] VITALS: BP 106/50
[2020-10-29] MEDS: ceFAZolin/D5W- 1GM premix 50 ML IV SCH ×4 (00:13→23:49)
[2020-10-29 02:00] VITALS: BP 126/80
[2020-10-29] MEDS: levalbuterol 0.63mg/3ml nebule IH SCH ×4 (02:30→20:32)
[2020-10-29 06:00] VITALS: BP 129/60
--- NOTE | 2020-10-29 06:31 | NUR ---
Problems reprioritized. Patient report given, questions answered & plan of care reviewed with
--- NOTE | 2020-10-29 06:35 | NUR ---
Patient in room PCU 3010. I have received report from Smitha GOMEZ and had the opportunity to ask questions and assume patient care.
[2020-10-29 06:54] LABS: BASOPHILS # (AUTO) 0.1 X10'3 (0-0.2); BASOPHILS % (AUTO) 0.6 % (0-1); EOSINOPHILS % (AUTO) 0 % (0-6); HEMATOCRIT 25.9 % (35.0-45.0); LYMPHOCYTES # (AUTO) 0.5 X10'3 (1.1-4.8); LYMPHOCYTES % (AUTO) 5.2 % (21-51); MEAN CORPUSCULAR HEMOGLOBIN 23.9 PG (27.0-31.0); MEAN CORPUSCULAR HGB CONC 30.8 g/dL (33.0-36.5); MEAN CORPUSCULAR VOLUME 77.6 FL (78-98); MEAN PLATELET VOLUME 7.5 FL (7.4-10.4); MONOCYTES # (AUTO) 0.4 X10'3 (0-0.9); MONOCYTES % (AUTO) 3.6 % (2-12); NEUTROPHILS # (AUTO) 8.9 X10'3 (1.8-7.7); NEUTROPHILS % (AUTO) 90.6 % (42-75); PLATELET COUNT 437 X10'3 (140-440); RED BLOOD COUNT 3.34 X10'6 (4.20-5.60); RED CELL DISTRIBUTION WIDTH 20.6 % (11.5-14.5); WHITE BLOOD COUNT 9.8 X10'3 (4.5-11.0)
[2020-10-29 07:20] LABS: ANION GAP 5 (8-16); BLOOD UREA NITROGEN 35 MG/DL (7-18); BUN/CREATININE RATIO 29.9 (6.6-38.0); CALCIUM 8.5 MG/DL (8.5-10.1); CHLORIDE 108 MMOL/L (99-107); CREATININE 1.17 MG/DL (0.40-0.90); GLUCOSE 135 MG/DL (70-104); POTASSIUM 4.9 MMOL/L (3.5-5.1); SODIUM 142 MMOL/L (135-145); eGFR 46 ML/MIN
[2020-10-29] MEDS: budesonide 0.5mg/2ml UD nebule IH SCH ×2 (08:04→20:32)
[2020-10-29] MEDS: lactobacillus rhamnosus 10,000 MMU CELLS/CAPSULE PO SCH ×2 (08:39→19:01)
[2020-10-29] MEDS: diltiazem CD 180mg cap (once-daily) PO SCH (08:39)
[2020-10-29] MEDS: risperiDONE 0.5mg tablet PO SCH (08:39)
[2020-10-29] MEDS: ferrous sulfate 325mg tablet PO SCH ×2 (08:39→19:01)
[2020-10-29] MEDS: heparin, porcine 5000 units/ml vial SQ SCH ×2 (08:40→19:00)
[2020-10-29] MEDS: potassium chloride 10mEq ER tablet PO SCH (08:40)
[2020-10-29] MEDS: lisinopril 10 MG tablet PO SCH (08:40)
[2020-10-29] MEDS: methylPREDNISolone sod succ 125mg/2ml vial IV SCH (08:42)
[2020-10-29] MEDS: nystatin 15 GM powder TP SCH ×3 (08:56→19:04)
[2020-10-29] MEDS: HYDROcodone/acetaminophen 10/325mg tab PO PRN ×2 (08:56→19:01)
[2020-10-29 09:25] LABS: ANISOCYTOSIS 3+; MICROCYTOSIS 1+; PLATELET ESTIMATE NORMAL
[2020-10-29 09:26] LABS: HYPOCHROMASIA 1+
[2020-10-29 11:00] VITALS: BP 139/72
[2020-10-29 15:00] VITALS: BP 139/65
[2020-10-29 18:00] VITALS: BP 123/59
--- NOTE | 2020-10-29 18:17 | NUR ---
Patient in room PCU 3010. I have received report from Cheri GOMEZ and had the opportunity to ask questions and assume patient care.
--- NOTE | 2020-10-29 18:17 | NUR ---
Problems reprioritized. Patient report given, questions answered & plan of care reviewed with Riana GOMEZ.
[2020-10-29 22:00] VITALS: BP 138/55
[2020-10-30 02:00] VITALS: BP 135/71
[2020-10-30] MEDS: levalbuterol 0.63mg/3ml nebule IH SCH ×4 (02:28→20:14)
--- NOTE | 2020-10-30 06:31 | NUR ---
Patient in room PCU 3010. I have received report from Mariel GOMEZ and had the opportunity to ask questions and assume patient care.
--- NOTE | 2020-10-30 06:40 | NUR ---
Problems reprioritized. Patient report given, questions answered & plan of care reviewed with Prakash GOMEZ.
[2020-10-30 07:00] VITALS: BP 143/65
[2020-10-30 07:24] LABS: BASOPHILS % (AUTO) 0.3 % (0-1); EOSINOPHILS % (AUTO) 0 % (0-6); HEMATOCRIT 27.6 % (35.0-45.0); HEMOGLOBIN 8.3 g/dl (12.0-16.0); LYMPHOCYTES % (AUTO) 12.9 % (21-51); MEAN CORPUSCULAR HEMOGLOBIN 23.3 PG (27.0-31.0); MEAN CORPUSCULAR VOLUME 77.9 FL (78-98); MEAN PLATELET VOLUME 7.7 FL (7.4-10.4); MONOCYTES # (AUTO) 0.8 X10'3 (0-0.9); NEUTROPHILS # (AUTO) 5.8 X10'3 (1.8-7.7); NEUTROPHILS % (AUTO) 75.8 % (42-75); PLATELET COUNT 448 X10'3 (140-440); RED BLOOD COUNT 3.55 X10'6 (4.20-5.60); RED CELL DISTRIBUTION WIDTH 20.6 % (11.5-14.5); WHITE BLOOD COUNT 7.7 X10'3 (4.5-11.0)
[2020-10-30 07:52] LABS: HYPOCHROMASIA 1+
[2020-10-30 07:53] LABS: ANISOCYTOSIS 3+; ELLIPTOCYTES FEW; MICROCYTOSIS 1+; PLATELET ESTIMATE NORMAL; SCHISTOCYTES FEW; STOMATOCYTES FEW
[2020-10-30 07:58] LABS: ALBUMIN 2.3 G/DL (3.4-5.0); ANION GAP 5 (8-16); BLOOD UREA NITROGEN 34 MG/DL (7-18); BUN/CREATININE RATIO 30.9 (6.6-38.0); CALCIUM 8.8 MG/DL (8.5-10.1); CHLORIDE 106 MMOL/L (99-107); GLUCOSE 87 MG/DL (70-104); POTASSIUM 4.9 MMOL/L (3.5-5.1); SODIUM 142 MMOL/L (135-145); TOTAL CARBON DIOXIDE 30.7 MMOL/L (24-32); eGFR 50 ML/MIN
[2020-10-30] MEDS: budesonide 0.5mg/2ml UD nebule IH SCH ×2 (08:09→20:13)
[2020-10-30] MEDS: nystatin 15 GM powder TP SCH ×3 (08:31→20:40)
[2020-10-30] MEDS: methylPREDNISolone sod succ/PF 40mg inj. IV SCH (08:31)
[2020-10-30] MEDS: heparin, porcine 5000 units/ml vial SQ SCH ×2 (08:31→20:35)
[2020-10-30] MEDS: ceFAZolin/D5W- 1GM premix 50 ML IV SCH ×2 (08:31→15:44)
[2020-10-30] MEDS: lactobacillus rhamnosus 10,000 MMU CELLS/CAPSULE PO SCH ×2 (08:32→20:35)
[2020-10-30] MEDS: potassium chloride 10mEq ER tablet PO SCH (08:32)
[2020-10-30] MEDS: lisinopril 10 MG tablet PO SCH (08:32)
[2020-10-30] MEDS: diltiazem CD 180mg cap (once-daily) PO SCH (08:32)
[2020-10-30] MEDS: ferrous sulfate 325mg tablet PO SCH ×2 (08:32→20:35)
[2020-10-30] MEDS: risperiDONE 0.5mg tablet PO SCH (08:33)
[2020-10-30 10:52] VITALS: BP 115/70
[2020-10-30] MEDS: HYDROcodone/acetaminophen 10/325mg tab PO PRN ×3 (13:24→20:36)
[2020-10-30 15:00] VITALS: BP 148/79
[2020-10-30 18:00] VITALS: BP 147/75
--- NOTE | 2020-10-30 18:41 | NUR ---
Problems reprioritized. Patient report given, questions answered & plan of care reviewed with Rolan GOMEZ.
--- NOTE | 2020-10-30 18:45 | NUR ---
Patient in room PCU 3010. I have received report from VÍCTOR GOMEZ and had the opportunity to ask questions and assume patient care.
[2020-10-30 22:00] VITALS: BP 143/83
[2020-10-31] MEDS: ceFAZolin/D5W- 1GM premix 50 ML IV SCH ×3 (00:35→16:13)
[2020-10-31 02:00] VITALS: BP 147/74
[2020-10-31] MEDS: levalbuterol 0.63mg/3ml nebule IH SCH ×3 (02:54→15:24)
--- NOTE | 2020-10-31 06:19 | NUR ---
Problems reprioritized. Patient report given, questions answered & plan of care reviewed with INESSA GOMEZ.
--- NOTE | 2020-10-31 06:40 | NUR ---
Patient in room PCU 3010. I have received report from Margarette Pfeiffer RN and had the opportunity to ask questions and assume patient care.
[2020-10-31 07:00] VITALS: BP 154/76
[2020-10-31 08:00] LABS: BASOPHILS % (AUTO) 0.3 % (0-1); EOSINOPHILS % (AUTO) 0 % (0-6); HEMATOCRIT 28.2 % (35.0-45.0); HEMOGLOBIN 8.6 g/dl (12.0-16.0); LYMPHOCYTES # (AUTO) 1.1 X10'3 (1.1-4.8); LYMPHOCYTES % (AUTO) 16.6 % (21-51); MEAN CORPUSCULAR HEMOGLOBIN 23.5 PG (27.0-31.0); MEAN CORPUSCULAR HGB CONC 30.4 g/dL (33.0-36.5); MEAN CORPUSCULAR VOLUME 77.1 FL (78-98); MEAN PLATELET VOLUME 7.7 FL (7.4-10.4); MONOCYTES # (AUTO) 0.8 X10'3 (0-0.9); MONOCYTES % (AUTO) 11.8 % (2-12); NEUTROPHILS # (AUTO) 4.9 X10'3 (1.8-7.7); NEUTROPHILS % (AUTO) 71.3 % (42-75); PLATELET COUNT 433 X10'3 (140-440); RED BLOOD COUNT 3.65 X10'6 (4.20-5.60); RED CELL DISTRIBUTION WIDTH 20.3 % (11.5-14.5); WHITE BLOOD COUNT 6.8 X10'3 (4.5-11.0)
[2020-10-31 08:15] LABS: ALBUMIN 2.3 G/DL (3.4-5.0); ANION GAP 2 (8-16); BLOOD UREA NITROGEN 29 MG/DL (7-18); BUN/CREATININE RATIO 30.2 (6.6-38.0); CALCIUM 8.5 MG/DL (8.5-10.1); CHLORIDE 104 MMOL/L (99-107); CREATININE 0.96 MG/DL (0.40-0.90); GLUCOSE 85 MG/DL (70-104); POTASSIUM 4.9 MMOL/L (3.5-5.1); SODIUM 140 MMOL/L (135-145); TOTAL CARBON DIOXIDE 33.9 MMOL/L (24-32); eGFR 58 ML/MIN
[2020-10-31] MEDS: budesonide 0.5mg/2ml UD nebule IH SCH (08:19)
[2020-10-31] MEDS: methylPREDNISolone sod succ/PF 40mg inj. IV SCH (08:44)
[2020-10-31] MEDS: diltiazem CD 180mg cap (once-daily) PO SCH (08:44)
[2020-10-31] MEDS: ferrous sulfate 325mg tablet PO SCH (08:45)
[2020-10-31] MEDS: lactobacillus rhamnosus 10,000 MMU CELLS/CAPSULE PO SCH (08:45)
[2020-10-31] MEDS: potassium chloride 10mEq ER tablet PO SCH (08:45)
[2020-10-31] MEDS: risperiDONE 0.5mg tablet PO SCH (08:45)
[2020-10-31] MEDS: lisinopril 10 MG tablet PO SCH (08:46)
[2020-10-31] MEDS: heparin, porcine 5000 units/ml vial SQ SCH (08:48)
[2020-10-31] MEDS: nystatin 15 GM powder TP SCH ×2 (09:01→13:00)
[2020-10-31 09:59] LABS: ANISOCYTOSIS 3+; HYPOCHROMASIA 1+; MICROCYTOSIS 1+; PLATELET ESTIMATE NORMAL; TOTAL CELLS COUNTED 100
[2020-10-31 11:00] VITALS: BP 135/65
[2020-10-31] MEDS: HYDROcodone/acetaminophen 10/325mg tab PO PRN (14:38)
[2020-10-31 15:00] VITALS: BP 170/85
--- NOTE | 2020-10-31 16:41 | NUR ---
Discharge wound pictures taken of lower extremities and wound care performed. Patient given pain medication. Belongings gathered for patient and placed at bedside. Report given to Lewis at [facility], allowed time for questioning. Report sheet filled out and copied for chart. Patient sitting up in bed awaiting transfer.
--- NOTE | 2020-10-31 18:06 | NUR ---
Problems reprioritized. Patient report given, questions answered & plan of care reviewed with Memo RN.
--- NOTE | 2020-10-31 20:11 | NUR ---
patient discharge to acute care facility accompanied with food and beverage intern. patient alert and oriented. telemonitor removed.
== END 2020-10-31 21:00 | DRG 133 ==
LOC: ER 09:07 → ED HOLD 12:25 → PCU 3S 14:00
PROVIDERS: ADMIT Family Medicine; ATTEND Family Medicine
PROC: B32T1ZZ Computerized Tomography (CT Scan) of Left Pulmonary Artery using Low Osmolar Contrast (ICD-10-PCS; principal; 2020-10-27)
PROC: B3201ZZ Computerized Tomography (CT Scan) of Thoracic Aorta using Low Osmolar Contrast (ICD-10-PCS; 2020-10-27)
PROC: B32S1ZZ Computerized Tomography (CT Scan) of Right Pulmonary Artery using Low Osmolar Contrast (ICD-10-PCS; 2020-10-27)
DX: J96.01 Acute respiratory failure with hypoxia (principal); J44.1 Chronic obstructive pulmonary disease with (acute) exacerbation; D63.8 Anemia in other chronic diseases classified elsewhere; E66.01 Morbid (severe) obesity due to excess calories; F17.210 Nicotine dependence, cigarettes, uncomplicated; F20.9 Schizophrenia, unspecified; Z60.2 Problems related to living alone; R00.0 Tachycardia, unspecified; I10 Essential (primary) hypertension; Z20.822 Contact with and (suspected) exposure to COVID-19; L03.115 Cellulitis of right lower limb; L03.116 Cellulitis of left lower limb; Z68.38 Body mass index [BMI] 38.0-38.9, adult; Z79.899 Other long term (current) drug therapy; Z86.73 Personal history of transient ischemic attack (TIA), and cerebral infarction without residual deficits; Z88.8 Allergy status to other drugs, medicaments and biological substances
CPT/HCPCS: 36415; 71045; 80048; 80053; 81001; 83605; 83735; 84145; 85007; 85008; 85025; 87040; 87426; 93005; 93306; 93308; 94640; 94760; 96365; 97110; 97161; 97530; 97535; 99285; G0378; J0690; J1644; J1956; J2920; J2930; J7614; J7626; Q9967

== ENCOUNTER 2020-12-25 09:47 | Inpatient (IN) | payer MEDICAID ==
[~2020-12-25] VITALS: Ht 165.1 cm; Wt 104.5 kg
[~2020-12-25 09:47] MED LIST changes: -ASCO500C18 PO; +ATRIN PO; -BACI30OI9 TOP; -BUDE10.22 INH; +BUDE10.27 PO; +DILT-36 PO; -DILT180C66 PO; -FERR325T28 PO; +FERR325T7 PO; -FURO-150 PO; +FURO20TA4 PO; -HYDR-4383 PO; -LEVA15HF4 INH; +LISI10TA27 PO; -LISI10TA4 PO; +POTA10TA PO; -POTA10TA10 PO; -PRED10TA23 PO; +RISP1TAB98 PO
[2020-12-25] MEDS ORDERED: acetaminophen 325mg tablet PO STA (09:59)
[2020-12-25] MEDS ORDERED: methylPREDNISolone sod succ 125mg/2ml vial IV ONE (10:00)
[2020-12-25] MEDS ORDERED: normal saline 1000ML IV soln IVB ONE ×3 (10:05→15:55)
--- NOTE | 2020-12-25 11:19 | NUR ---
ATTEMPTED TO START PIV BUT UNSUCCESSFUL.PICC RN AT BEDSIDE.
[2020-12-25 11:33] LABS: BASOPHILS % (AUTO) 0.2 % (0-1); EOSINOPHILS # (AUTO) 0.1 X10'3 (0-0.9); HEMATOCRIT 35.1 % (35.0-45.0); LYMPHOCYTES # (AUTO) 1.4 X10'3 (1.1-4.8); LYMPHOCYTES % (AUTO) 14.3 % (21-51); MEAN CORPUSCULAR HEMOGLOBIN 25.9 PG (27.0-31.0); MEAN CORPUSCULAR HGB CONC 31.3 g/dL (33.0-36.5); MEAN CORPUSCULAR VOLUME 82.5 FL (78-98); MEAN PLATELET VOLUME 7.5 FL (7.4-10.4); MONOCYTES # (AUTO) 0.8 X10'3 (0-0.9); MONOCYTES % (AUTO) 8.6 % (2-12); NEUTROPHILS # (AUTO) 7.4 X10'3 (1.8-7.7); NEUTROPHILS % (AUTO) 75.9 % (42-75); PLATELET COUNT 487 X10'3 (140-440); RED BLOOD COUNT 4.25 X10'6 (4.20-5.60); RED CELL DISTRIBUTION WIDTH 21.1 % (11.5-14.5); WHITE BLOOD COUNT 9.8 X10'3 (4.5-11.0)
[2020-12-25] MEDS ORDERED: MULT-382 PO (11:40)
[2020-12-25] MEDS ORDERED: DOCU-148 PO (11:40)
[2020-12-25] MEDS ORDERED: BACI1CAP6 PO (11:40)
[2020-12-25] MEDS ORDERED: ALB0.5UD IH (11:43)
[2020-12-25 12:02] LABS: ALANINE AMINOTRANSFERASE 46 U/L (12-78); ALBUMIN 2.6 G/DL (3.4-5.0); ALBUMIN/GLOBULIN RATIO 0.6 (1.1-1.5); ALKALINE PHOSPHATASE 235 IU/L (46-116); ANION GAP 12 (8-16); ASPARTATE AMINO TRANSFERASE 14 U/L (10-37); BILIRUBIN,TOTAL 0.2 MG/DL (0.1-1.0); BLOOD UREA NITROGEN 16 MG/DL (7-18); CALCIUM 9.8 MG/DL (8.5-10.1); CHLORIDE 112 MMOL/L (99-107); CREATININE 1.14 MG/DL (0.40-0.90); GLUCOSE 100 MG/DL (70-104); POTASSIUM 3.7 MMOL/L (3.5-5.1); SODIUM 149 MMOL/L (135-145); TOTAL CARBON DIOXIDE 25.1 MMOL/L (24-32); TOTAL PROTEIN 7.3 G/DL (6.4-8.2); eGFR 48 ML/MIN
[2020-12-25 12:02] LABS: ABG BASE EXCESS -8.3 mmol/L (-2.0-2.0); ABG HCO3 18.6 mmol/L (22.0-26.0); ABG OXYGEN SATURATION 91.2 % (94-97); ABG PCO2 (T) 44.1 mmHg (32.0-45.0); ABG PO2 (T) 68.4 mmHg (75.0-100.0); ALLEN'S TEST POSITIVE; FCOHb 2.4 % (0.0-3.9); FMetHb 0.1 % (0.0-1.5); FO2Hb 88.9 % (94-97); TOTAL HEMOGLOBIN 11.1 G/dl (12.0-16.0)
[2020-12-25 12:09] LABS: PLATELET ESTIMATE INCREASED
[2020-12-25 12:10] LABS: ANISOCYTOSIS 3+
[2020-12-25] MEDS ORDERED: iohexol 300mg/ml 100ml inj. ONE (13:16)
[2020-12-25] MEDS ORDERED: iohexol 350MG/ML 100ml bottle IV ONE (13:21)
--- NOTE | 2020-12-25 13:30 | NUR ---
URINE COLLECTED,BEDDINGS SOILED AND CHANGED.VERONICA PA AT BEDSIDE RE ASSESSING PATIENT.
[2020-12-25 14:01] LABS: CLARITY,URINE CLEAR (Clear); COLOR,URINE YELLOW (Yellow); GLUCOSE, URINE NEGATIVE (Neg); KETONES,URINE NEGATIVE (Neg); LEUKOCYTE ESTERASE ,URINE NEGATIVE (Neg); NITRITES, URINE NEGATIVE (Neg); OCCULT BLOOD,URINE TRACE-INTACT (Neg); PH,URINE 5.5 (4.8-8.0); PROTEIN,URINE 100 mg/dl (Neg); UROBILINOGEN,URINE 0.2 E.U/dL (0.2-1.0)
[2020-12-25 14:02] LABS: UA COLLECTION TYPE STRAIGHT CATH
[2020-12-25 14:09] LABS: BACTERIA,URINE FEW /HPF (Neg); MUCUS STRANDS MODERATE /LPF (Neg); SQUAMOUS EPITHELIAL CELL,UR FEW /LPF (FEW)
[2020-12-25 14:10] LABS: CELLULAR CAST 0-4 /LPF (NEGATIVE); HYALINE CASTS 0-3 /LPF (NEGATIVE)
--- NOTE | 2020-12-25 16:00 | NUR ---
PT IS SLEEPING, RR RATE 17 BUT WORKING TO BREATH,OXYGEN FALLING INTO THE 80'S AFTER THE OXYGEN WAS TURNED OFF BY PROVIDER. TURN OXYGEN TO 3 LITERS AND OXYGEN SATS RESPOND TO 98%. PT IS TACKYCARDIC AT 121. NOTIFY PROVIDER AND BEGIN ANOTHER LITER OF FLUID.
[2020-12-25] MEDS ORDERED: predniSONE 20 mg tablet PO STA (19:29)
[2020-12-25] MEDS ORDERED: albuterol 2.5 MG/3 ML nebule NEB ONE (19:30)
--- NOTE | 2020-12-25 20:20 | NUR ---
RT AT BEDSIDE GIVEN NEB TREATMENT NOW. PT AWAITING HOSPITALIST.
--- NOTE | 2020-12-25 22:30 | NUR ---
BREAKING PRIMARY RN- WILL CONT TO MONITOR
[2020-12-25 23:17] LABS: ABG BASE EXCESS -7.4 mmol/L (-2.0-2.0); ABG HCO3 20.6 mmol/L (22.0-26.0); ABG OXYGEN SATURATION 96.9 % (94-97); ABG PCO2 (T) 51.3 mmHg (32.0-45.0); ABG PO2 (T) 97.1 mmHg (75.0-100.0); ALLEN'S TEST POSITIVE; FCOHb 0.9 % (0.0-3.9); FMetHb 0.2 % (0.0-1.5); FO2Hb 95.8 % (94-97); PATIENT TEMPERATURE 36.7; RESPIRATORY RATE 20 b/min; TOTAL HEMOGLOBIN 12.2 G/dl (12.0-16.0)
[2020-12-25] MEDS ORDERED: ipratropium 0.5 MG/2.5ML nebule NEB PRN (23:55)
[2020-12-25] MEDS ORDERED: albuterol 2.5 MG/3 ML nebule NEB PRN (23:55)
[2020-12-25] MEDS ORDERED: potassium Cl 40MEQ/1/2NS 520ml 520 ML IV PRN ×2 (23:55)
[2020-12-25] MEDS ORDERED: ondansetron/PF 4mg/2ml inj IV PRN (23:55)
[2020-12-25] MEDS ORDERED: potassium Cl 20 mEq SR tablet PO PRN (23:55)
[2020-12-25] MEDS ORDERED: magnesium hydroxide 30ml (MOM) UD suspension PO PRN (23:55)
[2020-12-25] MEDS ORDERED: mag hydrox/Alum hydrox/simeth 30ml oral suspension PO PRN (23:55)
[2020-12-25] MEDS ORDERED: acetaminophen 325mg tablet PO PRN (23:55)
[2020-12-26] VITALS (11 sets, daily range): BP systolic 109–141; BP diastolic 46–102
[2020-12-26] MEDS ORDERED: albuterol 2.5 MG/3 ML nebule NEB PRN
[2020-12-26 00:52] LABS: ABG BASE EXCESS -6.6 mmol/L (-2.0-2.0); ABG HCO3 22.1 mmol/L (22.0-26.0); ABG OXYGEN SATURATION 96.2 % (94-97); ABG PCO2 (T) 58.6 mmHg (32.0-45.0); ALLEN'S TEST POSITIVE; FCOHb 0.5 % (0.0-3.9); FMetHb 0.1 % (0.0-1.5); FO2Hb 95.6 % (94-97); PATIENT TEMPERATURE 36.8; RESPIRATORY RATE 20 b/min; TOTAL HEMOGLOBIN 12.1 G/dl (12.0-16.0)
--- NOTE | 2020-12-26 01:39 | NUR ---
Leg wounds cleaned and wrapped. Pt tolerated well, but painful during the cleaning. Pt remains on bipap and sats 98%.
[2020-12-26 02:29] LABS: BASOPHILS % (AUTO) 0.1 % (0-1); EOSINOPHILS % (AUTO) 0 % (0-6); HEMATOCRIT 33.7 % (35.0-45.0); HEMOGLOBIN 10.6 g/dl (12.0-16.0); LYMPHOCYTES # (AUTO) 0.8 X10'3 (1.1-4.8); LYMPHOCYTES % (AUTO) 7.8 % (21-51); MEAN CORPUSCULAR HEMOGLOBIN 25.8 PG (27.0-31.0); MEAN CORPUSCULAR HGB CONC 31.4 g/dL (33.0-36.5); MEAN CORPUSCULAR VOLUME 82.2 FL (78-98); MEAN PLATELET VOLUME 7.6 FL (7.4-10.4); MONOCYTES # (AUTO) 0.2 X10'3 (0-0.9); MONOCYTES % (AUTO) 1.8 % (2-12); NEUTROPHILS # (AUTO) 8.7 X10'3 (1.8-7.7); NEUTROPHILS % (AUTO) 90.3 % (42-75); PLATELET COUNT 458 X10'3 (140-440); RED CELL DISTRIBUTION WIDTH 21.2 % (11.5-14.5); WHITE BLOOD COUNT 9.7 X10'3 (4.5-11.0)
[2020-12-26] MEDS: albuterol 2.5 MG/3 ML nebule NEB SCH ×4 (02:29→19:57)
[2020-12-26 02:31] LABS: ALANINE AMINOTRANSFERASE 35 U/L (12-78); ALBUMIN 2.2 G/DL (3.4-5.0); ALBUMIN/GLOBULIN RATIO 0.5 (1.1-1.5); ALKALINE PHOSPHATASE 223 IU/L (46-116); ANION GAP 13 (8-16); ASPARTATE AMINO TRANSFERASE 12 U/L (10-37); BILIRUBIN,TOTAL 0.2 MG/DL (0.1-1.0); BLOOD UREA NITROGEN 19 MG/DL (7-18); BUN/CREATININE RATIO 15.4 (6.6-38.0); CALCIUM 9.3 MG/DL (8.5-10.1); CHLORIDE 110 MMOL/L (99-107); CREATININE 1.23 MG/DL (0.40-0.90); GLUCOSE 127 MG/DL (70-104); POTASSIUM 4.3 MMOL/L (3.5-5.1); SODIUM 149 MMOL/L (135-145); TOTAL CARBON DIOXIDE 25.7 MMOL/L (24-32); TOTAL PROTEIN 6.7 G/DL (6.4-8.2); eGFR 44 ML/MIN
--- NOTE | 2020-12-26 02:42 | NUR ---
PT WITH EPISODE OF INCONTINENCE OF URINE, REPORTS SHE DOES NOT NORMALLY HAVE THIS HAPPEN. PT CLEANED AND NEW LINENS AND GOWN IN PLACE. PLACED ON DRY FLOW PADS. SKIN UNDER BREASTS AND PANIS AND MELIDA AGE REDDENED, YEAST APPEARING. AREAS CLEANED AND CALIZIME LOTION APPLIED. PT REMAINS A&OX3 AND APPROPRIATE. STATES SHE USUALLY WALKS WITH HER WALKER WHICH IS WITH HER, BUT HAS BEEN UNABLE TO AMBULATE D/T THE PAIN AND SWELLING IN HER LEGS AND WEAKNESS OVER THE PAST FEW DAYS. IPA 3020A. REPORTS GIVEN TO JASON HERNANDEZ.
--- NOTE | 2020-12-26 06:15 | NUR ---
Problems reprioritized. Patient report given, questions answered & plan of care reviewed with JASON Robbins.
--- NOTE | 2020-12-26 06:30 | NUR ---
Patient in room PCU 3020. I have received report from JASON Resendiz and had the opportunity to ask questions and assume patient care.
[2020-12-26] MEDS: budesonide 0.5mg/2ml UD nebule IH SCH ×2 (07:40→19:58)
[2020-12-26] MEDS: K and/or MAG REPLACEMENT MC SCH ×2 (08:00→20:00)
[2020-12-26] MEDS: methylPREDNISolone sod succ/PF 40mg inj. IV SCH (08:51)
[2020-12-26] MEDS: ferrous sulfate 325mg tablet PO SCH ×2 (08:51→20:54)
[2020-12-26] MEDS: heparin, porcine 5000 units/ml vial SQ SCH ×2 (08:51→20:54)
[2020-12-26] MEDS: lactobacillus rhamnosus 10,000 MMU CELLS/CAPSULE PO SCH ×2 (08:51→20:54)
[2020-12-26] MEDS: diltiazem CD 180mg cap (once-daily) PO SCH (08:51)
[2020-12-26] MEDS: lisinopril 10 MG tablet PO SCH (08:52)
[2020-12-26] MEDS: multivitamins, therapeutics tablet PO SCH (08:53)
--- NOTE | 2020-12-26 14:04 | NUR ---
notified PAGER ID: [phone] MESSAGE: Lindsey BarreraLena hylton is complaining of pain bilaterally in lower extremities would you like to order a prn pain medication. Thank you JASON Larsen ext [phone]
--- NOTE | 2020-12-26 14:32 | NUR ---
notified of critical value. PAGER ID: [phone] MESSAGE: Lena Santos had positive blood cultures from labs. Gram positive rods resembling diphtheroid Detected in 25.9 hrs. Thank you Rakesh Larsen [phone].
--- NOTE | 2020-12-26 14:43 | NUR ---
Malnutrition/Tunde Consults: Pt admit DX COPD exacerbation hx COPD w/ Pickwikian physiology, HTN, and chronic BLE wounds per MD note. Tunde 12 w/ partial thickness RLE arterial ulcer per [facility]OC. Pt PO 75% avg first regular diet meal; TMIO w/ RN regarding heart healthy diet if MD agreeable given Na 149 and good initial PO this admit. Pt has no scaled wt this admit or scaled wt hx since September admit this year but from reported wts in EMR has not had any significant wt loss hx. Pt lacks minimum two malnutrition criteria at this time. Will monitor for additional criteria this admit. To provide initial assessment on above date. Addendum: 12/26/20 at [address] Amended: Links added.
--- NOTE | 2020-12-26 16:30 | NUR ---
notified. awaiting orders. PAGER ID: [phone] MESSAGE: RE; Lena Pretty. 3020. Pt. has positive blood cultures. She currently is not on any IV abx's or received any since being admitted. HR has staying tachy 110's. Thanks. Itzel. [phone].
--- NOTE | 2020-12-26 18:35 | NUR ---
Precepetee documentation: I have reviewed and agree with all interventions, assessments performed and documented by JASON Larsen. Precepetee Medication Administration: For this medication-pass time frame, all medication were reviewed, dispensed, administered and documented per hospital policy by JASON Larsen.
--- NOTE | 2020-12-26 18:35 | NUR ---
Problems reprioritized. Patient report given, questions answered & plan of care reviewed with JASON Orta.
[2020-12-26] MEDS: docusate sod 100mg capsule PO SCH (20:54)
[2020-12-26] MEDS: nystatin 15 GM powder TP SCH (20:54)
[2020-12-26] MEDS: mineral oil/petrolatum, white cream 113gm jar TP SCH (20:57)
[2020-12-27 02:00] VITALS: BP 114/58
[2020-12-27] MEDS: albuterol 2.5 MG/3 ML nebule NEB SCH ×6 (03:20→23:14)
[2020-12-27 06:00] VITALS: BP 129/64
[2020-12-27 07:05] LABS: BASOPHILS % (AUTO) 0.3 % (0-1); EOSINOPHILS % (AUTO) 0.1 % (0-6); HEMATOCRIT 29.7 % (35.0-45.0); HEMOGLOBIN 9.2 g/dl (12.0-16.0); LYMPHOCYTES # (AUTO) 1.6 X10'3 (1.1-4.8); MEAN CORPUSCULAR HEMOGLOBIN 25.9 PG (27.0-31.0); MEAN CORPUSCULAR HGB CONC 31.1 g/dL (33.0-36.5); MEAN CORPUSCULAR VOLUME 83.3 FL (78-98); MEAN PLATELET VOLUME 7.8 FL (7.4-10.4); MONOCYTES # (AUTO) 0.8 X10'3 (0-0.9); MONOCYTES % (AUTO) 9.9 % (2-12); NEUTROPHILS % (AUTO) 70.7 % (42-75); PLATELET COUNT 448 X10'3 (140-440); RED BLOOD COUNT 3.57 X10'6 (4.20-5.60); RED CELL DISTRIBUTION WIDTH 21.6 % (11.5-14.5); WHITE BLOOD COUNT 8.5 X10'3 (4.5-11.0)
[2020-12-27 07:21] LABS: ALANINE AMINOTRANSFERASE 27 U/L (12-78); ALBUMIN 1.9 G/DL (3.4-5.0); ALBUMIN/GLOBULIN RATIO 0.5 (1.1-1.5); ALKALINE PHOSPHATASE 149 IU/L (46-116); ANION GAP 10 (8-16); ASPARTATE AMINO TRANSFERASE 9 U/L (10-37); BILIRUBIN,TOTAL 0.1 MG/DL (0.1-1.0); BLOOD UREA NITROGEN 27 MG/DL (7-18); BUN/CREATININE RATIO 24.3 (6.6-38.0); CALCIUM 9.1 MG/DL (8.5-10.1); CHLORIDE 114 MMOL/L (99-107); CREATININE 1.11 MG/DL (0.40-0.90); GLUCOSE 87 MG/DL (70-104); POTASSIUM 3.5 MMOL/L (3.5-5.1); SODIUM 151 MMOL/L (135-145); TOTAL CARBON DIOXIDE 27.2 MMOL/L (24-32); TOTAL PROTEIN 5.9 G/DL (6.4-8.2); eGFR 49 ML/MIN
[2020-12-27] MEDS: budesonide 0.5mg/2ml UD nebule IH SCH ×2 (07:42→19:26)
[2020-12-27 07:50] LABS: ANISOCYTOSIS 3+; LARGE PLATELETS FEW; PLATELET ESTIMATE INCREASED
[2020-12-27] MEDS: K and/or MAG REPLACEMENT MC SCH ×2 (08:00→20:00)
[2020-12-27] MEDS: ferrous sulfate 325mg tablet PO SCH ×2 (08:06→21:42)
[2020-12-27] MEDS: diltiazem CD 180mg cap (once-daily) PO SCH (08:06)
[2020-12-27] MEDS: nystatin 15 GM powder TP SCH ×3 (08:06→21:43)
[2020-12-27] MEDS: heparin, porcine 5000 units/ml vial SQ SCH ×2 (08:07→21:42)
[2020-12-27] MEDS: lisinopril 10 MG tablet PO SCH (08:07)
[2020-12-27] MEDS: lactobacillus rhamnosus 10,000 MMU CELLS/CAPSULE PO SCH ×2 (08:08→21:43)
[2020-12-27] MEDS: methylPREDNISolone sod succ/PF 40mg inj. IV SCH (08:08)
[2020-12-27] MEDS: mineral oil/petrolatum, white cream 113gm jar TP SCH ×2 (08:09→21:41)
[2020-12-27] MEDS: multivitamins, therapeutics tablet PO SCH (08:54)
[2020-12-27 11:00] VITALS: BP 126/61
[2020-12-27] MEDS: traMADol 50MG tablet PO PRN (11:23)
[2020-12-27 15:00] VITALS: BP 103/57
[2020-12-27] MEDS ORDERED: sodium bicarbonate (8.4%) inj. 50 MEQ in dextrose 5%-water 1,000 ML IV SCH (16:15)
[2020-12-27 18:00] VITALS: BP 101/50
--- NOTE | 2020-12-27 18:33 | NUR ---
Patient in room PCU 3020. I have received report from [facility] and had the opportunity to ask questions and assume patient care.
[2020-12-27] MEDS: docusate sod 100mg capsule PO SCH (21:42)
[2020-12-27 22:00] VITALS: BP 129/65
[2020-12-28 02:00] VITALS: BP 138/89
[2020-12-28] MEDS: albuterol 2.5 MG/3 ML nebule NEB SCH ×6 (03:18→23:28)
[2020-12-28 06:00] VITALS: BP 132/57
--- NOTE | 2020-12-28 06:16 | NUR ---
Problems reprioritized. Patient report given, questions answered & plan of care reviewed with Itzel.
--- NOTE | 2020-12-28 07:07 | NUR ---
Patient in room PCU 3020. I have received report from Mert GOMEZ and had the opportunity to ask questions and assume patient care.
[2020-12-28] MEDS: budesonide 0.5mg/2ml UD nebule IH SCH ×2 (07:33→19:50)
[2020-12-28] MEDS: K and/or MAG REPLACEMENT MC SCH ×2 (08:00→20:00)
[2020-12-28] MEDS: mineral oil/petrolatum, white cream 113gm jar TP SCH ×2 (08:00→21:13)
[2020-12-28] MEDS: nystatin 15 GM powder TP SCH ×3 (08:00→21:13)
[2020-12-28 08:04] LABS: BASOPHILS % (AUTO) 0.1 % (0-1); EOSINOPHILS % (AUTO) 0.2 % (0-6); HEMATOCRIT 30.5 % (35.0-45.0); HEMOGLOBIN 9.5 g/dl (12.0-16.0); LYMPHOCYTES # (AUTO) 1.6 X10'3 (1.1-4.8); LYMPHOCYTES % (AUTO) 17.2 % (21-51); MEAN CORPUSCULAR HEMOGLOBIN 25.7 PG (27.0-31.0); MEAN CORPUSCULAR HGB CONC 31.1 g/dL (33.0-36.5); MEAN CORPUSCULAR VOLUME 82.5 FL (78-98); MEAN PLATELET VOLUME 7.5 FL (7.4-10.4); MONOCYTES # (AUTO) 1.1 X10'3 (0-0.9); MONOCYTES % (AUTO) 11.2 % (2-12); NEUTROPHILS # (AUTO) 6.7 X10'3 (1.8-7.7); NEUTROPHILS % (AUTO) 71.3 % (42-75); PLATELET COUNT 438 X10'3 (140-440); RED BLOOD COUNT 3.69 X10'6 (4.20-5.60); RED CELL DISTRIBUTION WIDTH 20.8 % (11.5-14.5); WHITE BLOOD COUNT 9.4 X10'3 (4.5-11.0)
[2020-12-28 08:15] LABS: ALANINE AMINOTRANSFERASE 23 U/L (12-78); ALBUMIN 2.1 G/DL (3.4-5.0); ALBUMIN/GLOBULIN RATIO 0.5 (1.1-1.5); ALKALINE PHOSPHATASE 141 IU/L (46-116); ANION GAP 6 (8-16); ASPARTATE AMINO TRANSFERASE 11 U/L (10-37); BILIRUBIN,TOTAL 0.1 MG/DL (0.1-1.0); BLOOD UREA NITROGEN 25 MG/DL (7-18); BUN/CREATININE RATIO 21.9 (6.6-38.0); CALCIUM 8.9 MG/DL (8.5-10.1); CHLORIDE 111 MMOL/L (99-107); CREATININE 1.14 MG/DL (0.40-0.90); GLUCOSE 105 MG/DL (70-104); POTASSIUM 3.4 MMOL/L (3.5-5.1); SODIUM 149 MMOL/L (135-145); TOTAL CARBON DIOXIDE 31.6 MMOL/L (24-32); TOTAL PROTEIN 6.1 G/DL (6.4-8.2); eGFR 48 ML/MIN
[2020-12-28 08:15] LABS: ABG BASE EXCESS 4.5 mmol/L (-2.0-2.0); ABG HCO3 31.2 mmol/L (22.0-26.0); ABG OXYGEN SATURATION 94.6 % (94-97); ABG PCO2 (T) 57.6 mmHg (32.0-45.0); ABG PO2 (T) 70.6 mmHg (75.0-100.0); ALLEN'S TEST Yes; FCOHb 0.3 % (0.0-3.9); FLOW 4 L/min; FMetHb 0.2 % (0.0-1.5); FO2Hb 94.1 % (94-97); TOTAL HEMOGLOBIN 10.6 G/dl (12.0-16.0)
[2020-12-28] MEDS: methylPREDNISolone sod succ/PF 40mg inj. IV SCH (08:42)
[2020-12-28] MEDS: heparin, porcine 5000 units/ml vial SQ SCH ×2 (08:43→21:11)
[2020-12-28] MEDS: CefTRIAXone 2gm/D5W 50ml BAG 50 ML IV SCH (08:43)
[2020-12-28] MEDS: lactobacillus rhamnosus 10,000 MMU CELLS/CAPSULE PO SCH ×2 (08:43→21:11)
[2020-12-28] MEDS: multivitamins, therapeutics tablet PO SCH (08:44)
[2020-12-28] MEDS: ferrous sulfate 325mg tablet PO SCH ×2 (08:44→21:11)
[2020-12-28] MEDS: diltiazem CD 180mg cap (once-daily) PO SCH (08:44)
[2020-12-28] MEDS: lisinopril 10 MG tablet PO SCH (08:44)
[2020-12-28 08:47] LABS: ANISOCYTOSIS 3+; HYPOCHROMASIA 1+; NUCLEATED RED BLOOD CELLS 1 /100WBC (0-0); PLATELET ESTIMATE NORMAL; TOTAL CELLS COUNTED 100
[2020-12-28 08:48] LABS: POLYCHROMASIA 1+
--- NOTE | 2020-12-28 10:41 | NUR ---
Recieved verbal order from Dr. Blackwell to TRU mancia in D5w. IV fluids stopped and taken down.
[2020-12-28 11:00] VITALS: BP 147/107
[2020-12-28] MEDS: potassium Cl 20 mEq SR tablet PO PRN ×2 (11:22→21:11)
--- NOTE | 2020-12-28 11:47 | NUR ---
notified PAGER ID: [phone] MESSAGE: Lindsey Paredes [phone]- critical results blood culture gram positive rods in anaerobic bottle from 12/25/2020. Thank you. Suzie GOMEZ, [phone]
[2020-12-28 15:00] VITALS: BP 100/55
[2020-12-28 18:00] VITALS: BP 161/87
--- NOTE | 2020-12-28 18:21 | NUR ---
Patient in room PCU 3020. I have received report from Itzel and had the opportunity to ask questions and assume patient care.
--- NOTE | 2020-12-28 18:30 | NUR ---
Problems reprioritized. Patient report given, questions answered & plan of care reviewed with JASON Painting.
[2020-12-28] MEDS: docusate sod 100mg capsule PO SCH (21:10)
[2020-12-28 22:00] VITALS: BP 157/77
[2020-12-28] MEDS: traMADol 50MG tablet PO PRN (22:01)
--- NOTE | 2020-12-28 23:17 | NUR ---
Problems reprioritized. Patient report given, questions answered & plan of care reviewed with
--- NOTE | 2020-12-28 23:20 | NUR ---
Patient in room PCU 3020. I have received report from GEMMA GOMEZ and had the opportunity to ask questions and assume patient care.
[2020-12-29] MEDS: albuterol 2.5 MG/3 ML nebule NEB SCH ×6 (03:00→23:14)
[2020-12-29 05:20] VITALS: BP 157/77
[2020-12-29 06:00] VITALS: BP 164/100
--- NOTE | 2020-12-29 06:08 | NUR ---
Patient in room PCU 3020. I have received report from Madison GOMEZ and had the opportunity to ask questions and assume patient care.
--- NOTE | 2020-12-29 06:19 | NUR ---
Problems reprioritized. Patient report given, questions answered & plan of care reviewed with DAVID GOMEZ.
[2020-12-29 07:27] LABS: BASOPHILS % (AUTO) 0.2 % (0-1); EOSINOPHILS % (AUTO) 0 % (0-6); HEMATOCRIT 32.3 % (35.0-45.0); HEMOGLOBIN 10.3 g/dl (12.0-16.0); LYMPHOCYTES # (AUTO) 1.1 X10'3 (1.1-4.8); LYMPHOCYTES % (AUTO) 11.2 % (21-51); MEAN CORPUSCULAR HEMOGLOBIN 26.1 PG (27.0-31.0); MEAN CORPUSCULAR HGB CONC 31.8 g/dL (33.0-36.5); MEAN CORPUSCULAR VOLUME 81.9 FL (78-98); MEAN PLATELET VOLUME 7.7 FL (7.4-10.4); MONOCYTES # (AUTO) 0.8 X10'3 (0-0.9); MONOCYTES % (AUTO) 8.2 % (2-12); NEUTROPHILS # (AUTO) 7.8 X10'3 (1.8-7.7); NEUTROPHILS % (AUTO) 80.4 % (42-75); PLATELET COUNT 432 X10'3 (140-440); RED BLOOD COUNT 3.94 X10'6 (4.20-5.60); RED CELL DISTRIBUTION WIDTH 20.8 % (11.5-14.5); WHITE BLOOD COUNT 9.7 X10'3 (4.5-11.0)
[2020-12-29] MEDS: diltiazem CD 180mg cap (once-daily) PO SCH (07:34)
[2020-12-29] MEDS: ferrous sulfate 325mg tablet PO SCH ×2 (07:34→19:41)
[2020-12-29] MEDS: multivitamins, therapeutics tablet PO SCH (07:34)
[2020-12-29] MEDS: lactobacillus rhamnosus 10,000 MMU CELLS/CAPSULE PO SCH ×2 (07:35→19:41)
[2020-12-29] MEDS: lisinopril 10 MG tablet PO SCH (07:35)
[2020-12-29] MEDS: CefTRIAXone 2gm/D5W 50ml BAG 50 ML IV SCH (07:36)
[2020-12-29] MEDS: heparin, porcine 5000 units/ml vial SQ SCH ×2 (07:36→19:42)
[2020-12-29] MEDS: methylPREDNISolone sod succ/PF 40mg inj. IV SCH (07:39)
[2020-12-29 07:52] LABS: ALANINE AMINOTRANSFERASE 23 U/L (12-78); ALBUMIN 2.3 G/DL (3.4-5.0); ALBUMIN/GLOBULIN RATIO 0.5 (1.1-1.5); ALKALINE PHOSPHATASE 147 IU/L (46-116); ANION GAP 7 (8-16); ASPARTATE AMINO TRANSFERASE 11 U/L (10-37); BILIRUBIN,TOTAL 0.1 MG/DL (0.1-1.0); BLOOD UREA NITROGEN 24 MG/DL (7-18); BUN/CREATININE RATIO 22.4 (6.6-38.0); CALCIUM 9.1 MG/DL (8.5-10.1); CHLORIDE 107 MMOL/L (99-107); CREATININE 1.07 MG/DL (0.40-0.90); GLUCOSE 105 MG/DL (70-104); POTASSIUM 4.5 MMOL/L (3.5-5.1); SODIUM 147 MMOL/L (135-145); TOTAL CARBON DIOXIDE 32.9 MMOL/L (24-32); TOTAL PROTEIN 6.6 G/DL (6.4-8.2); eGFR 51 ML/MIN
[2020-12-29] MEDS: nystatin 15 GM powder TP SCH ×3 (08:00→19:45)
[2020-12-29] MEDS: mineral oil/petrolatum, white cream 113gm jar TP SCH ×2 (08:00→19:45)
[2020-12-29] MEDS: K and/or MAG REPLACEMENT MC SCH ×2 (08:00→19:36)
[2020-12-29] MEDS: budesonide 0.5mg/2ml UD nebule IH SCH ×2 (08:02→19:13)
[2020-12-29 08:22] LABS: ANISOCYTOSIS 3+; HYPOCHROMASIA 1+; MICROCYTOSIS 1+; PLATELET ESTIMATE NORMAL; POLYCHROMASIA 1+; TOTAL CELLS COUNTED 100
--- NOTE | 2020-12-29 08:30 | NUR ---
Pt refused wound care. I told her I would come back to do it later. She agreed.
[2020-12-29 11:00] VITALS: BP 153/78
[2020-12-29 15:00] VITALS: BP 134/56
[2020-12-29 18:00] VITALS: BP 145/69
--- NOTE | 2020-12-29 18:20 | NUR ---
Problems reprioritized. Patient report given, questions answered & plan of care reviewed with Flavia GOMEZ.
--- NOTE | 2020-12-29 18:39 | NUR ---
REPORT REC'D FROM JASON HERNANDEZ.
[2020-12-29] MEDS: docusate sod 100mg capsule PO SCH (19:41)
[2020-12-29 22:00] VITALS: BP 161/98
[2020-12-30 02:00] VITALS: BP 159/83
[2020-12-30] MEDS: albuterol 2.5 MG/3 ML nebule NEB SCH ×6 (03:00→23:57)
--- NOTE | 2020-12-30 06:19 | NUR ---
REPORT GIVEN TO JASON MCFARLAND.
--- NOTE | 2020-12-30 06:22 | NUR ---
Patient in room PCU 3020. I have received report from Flavia GOMEZ and had the opportunity to ask questions and assume patient care.
[2020-12-30 06:38] LABS: BASOPHILS % (AUTO) 0.2 % (0-1); EOSINOPHILS % (AUTO) 0.1 % (0-6); HEMATOCRIT 33.9 % (35.0-45.0); HEMOGLOBIN 10.6 g/dl (12.0-16.0); LYMPHOCYTES # (AUTO) 1.6 X10'3 (1.1-4.8); LYMPHOCYTES % (AUTO) 14.9 % (21-51); MEAN CORPUSCULAR HEMOGLOBIN 25.7 PG (27.0-31.0); MEAN CORPUSCULAR HGB CONC 31.2 g/dL (33.0-36.5); MEAN CORPUSCULAR VOLUME 82.4 FL (78-98); MEAN PLATELET VOLUME 7.6 FL (7.4-10.4); MONOCYTES % (AUTO) 9.5 % (2-12); NEUTROPHILS # (AUTO) 8.3 X10'3 (1.8-7.7); NEUTROPHILS % (AUTO) 75.3 % (42-75); PLATELET COUNT 450 X10'3 (140-440); RED BLOOD COUNT 4.12 X10'6 (4.20-5.60); RED CELL DISTRIBUTION WIDTH 20.7 % (11.5-14.5)
[2020-12-30 07:00] VITALS: BP 158/86
[2020-12-30 07:10] LABS: ALANINE AMINOTRANSFERASE 24 U/L (12-78); ALBUMIN 2.5 G/DL (3.4-5.0); ALBUMIN/GLOBULIN RATIO 0.6 (1.1-1.5); ALKALINE PHOSPHATASE 141 IU/L (46-116); ANION GAP 7 (8-16); ASPARTATE AMINO TRANSFERASE 14 U/L (10-37); BILIRUBIN,TOTAL 0.1 MG/DL (0.1-1.0); BLOOD UREA NITROGEN 29 MG/DL (7-18); BUN/CREATININE RATIO 27.9 (6.6-38.0); CALCIUM 9.7 MG/DL (8.5-10.1); CHLORIDE 106 MMOL/L (99-107); CREATININE 1.04 MG/DL (0.40-0.90); GLUCOSE 103 MG/DL (70-104); POTASSIUM 4.4 MMOL/L (3.5-5.1); SODIUM 149 MMOL/L (135-145); TOTAL CARBON DIOXIDE 35.9 MMOL/L (24-32); TOTAL PROTEIN 6.8 G/DL (6.4-8.2); eGFR 53 ML/MIN
[2020-12-30] MEDS: budesonide 0.5mg/2ml UD nebule IH SCH ×2 (07:29→19:37)
[2020-12-30 07:36] LABS: PLATELET ESTIMATE INCREASED; TOTAL CELLS COUNTED 100
[2020-12-30 07:37] LABS: ANISOCYTOSIS 3+; HYPOCHROMASIA 1+; MICROCYTOSIS 1+; POLYCHROMASIA FEW
[2020-12-30] MEDS: CefTRIAXone 2gm/D5W 50ml BAG 50 ML IV SCH (07:58)
[2020-12-30] MEDS: multivitamins, therapeutics tablet PO SCH (07:59)
[2020-12-30] MEDS: methylPREDNISolone sod succ/PF 40mg inj. IV SCH (07:59)
[2020-12-30] MEDS: K and/or MAG REPLACEMENT MC SCH ×2 (07:59→20:00)
[2020-12-30] MEDS: diltiazem CD 180mg cap (once-daily) PO SCH (07:59)
[2020-12-30] MEDS: ferrous sulfate 325mg tablet PO SCH ×2 (07:59→20:15)
[2020-12-30] MEDS: lactobacillus rhamnosus 10,000 MMU CELLS/CAPSULE PO SCH ×2 (07:59→20:15)
[2020-12-30] MEDS: lisinopril 20mg tablet PO SCH (08:00)
[2020-12-30] MEDS: mineral oil/petrolatum, white cream 113gm jar TP SCH ×2 (08:01→20:15)
[2020-12-30] MEDS: nystatin 15 GM powder TP SCH ×3 (08:01→20:16)
[2020-12-30] MEDS: heparin, porcine 5000 units/ml vial SQ SCH ×2 (08:01→20:17)
[2020-12-30 11:00] VITALS: BP 159/92
--- NOTE | 2020-12-30 12:21 | NUR ---
Initial: Pt admit DX COPD exacerbation hx COPD w/ Pickwikian physiology, HTN, and chronic BLE wounds per MD note. Tunde 13 w/ partial thickness RLE arterial ulcer per [facility]OC note. PO improving to 75-100% avg regular diet meeting needs. LBM 4/. Na 149 receiving D5/W per MD note though no dextrose in EMR currently; RD unable to reach RN for clarification. No nutrition concerns at this time. Will continue to monitor. Rec: 1. continue regular diet; consider heart healthy given elevate Na w/ CHF/HTN hx 2. routine bowel care 3. scaled wt this admit Addendum: 12/30/20 at [address] Amended: Links added.
--- NOTE | 2020-12-30 14:45 | NUR ---
Patient transferred to ortho/neuro. Report given to Trudy GOMEZ. Patient stable at time of transfer.
[2020-12-30 17:52] VITALS: BP 161/92
--- NOTE | 2020-12-30 18:12 | NUR ---
Problems reprioritized. Patient report given, questions answered & plan of care reviewed with Brook GOMEZ.
--- NOTE | 2020-12-30 18:30 | NUR ---
Patient in room ORTHO 4008. I have received report from JASON LYN and had the opportunity to ask questions and assume patient care.
[2020-12-30] MEDS: docusate sod 100mg capsule PO SCH (20:15)
[2020-12-30 22:00] VITALS: BP 165/88
[2020-12-31] MEDS: albuterol 2.5 MG/3 ML nebule NEB SCH ×6 (02:05→23:28)
[2020-12-31 06:00] VITALS: BP 162/86
--- NOTE | 2020-12-31 06:39 | NUR ---
Problems reprioritized. Patient report given, questions answered & plan of care reviewed with JASON STROUD.
[2020-12-31] MEDS: budesonide 0.5mg/2ml UD nebule IH SCH ×2 (07:54→19:18)
[2020-12-31 08:00] VITALS: BP 134/71
[2020-12-31] MEDS: K and/or MAG REPLACEMENT MC SCH ×2 (08:00→20:00)
[2020-12-31] MEDS: CefTRIAXone 2gm/D5W 50ml BAG 50 ML IV SCH (08:24)
[2020-12-31] MEDS: ferrous sulfate 325mg tablet PO SCH ×2 (08:25→21:03)
[2020-12-31] MEDS: multivitamins, therapeutics tablet PO SCH (08:25)
[2020-12-31] MEDS: lactobacillus rhamnosus 10,000 MMU CELLS/CAPSULE PO SCH ×2 (08:25→21:03)
[2020-12-31] MEDS: predniSONE 20 mg tablet PO SCH (08:25)
[2020-12-31] MEDS: diltiazem CD 180mg cap (once-daily) PO SCH (08:25)
[2020-12-31] MEDS: heparin, porcine 5000 units/ml vial SQ SCH ×2 (08:26→21:03)
[2020-12-31] MEDS: lisinopril 20mg tablet PO SCH (08:32)
[2020-12-31] MEDS: mineral oil/petrolatum, white cream 113gm jar TP SCH ×2 (08:45→21:04)
[2020-12-31] MEDS: nystatin 15 GM powder TP SCH ×3 (08:45→21:04)
[2020-12-31 10:00] VITALS: BP 122/60
[2020-12-31 18:00] VITALS: BP 158/93
[2020-12-31] MEDS: docusate sod 100mg capsule PO SCH (21:03)
[2020-12-31 22:00] VITALS: BP 145/85
[2021-01-01] MEDS: albuterol 2.5 MG/3 ML nebule NEB SCH ×6 (02:25→23:15)
[2021-01-01 06:00] VITALS: BP 149/85
[2021-01-01] MEDS: budesonide 0.5mg/2ml UD nebule IH SCH ×2 (07:24→19:31)
[2021-01-01] MEDS: K and/or MAG REPLACEMENT MC SCH ×2 (08:00→20:00)
[2021-01-01] MEDS: nystatin 15 GM powder TP SCH ×3 (08:30→20:40)
[2021-01-01] MEDS: multivitamins, therapeutics tablet PO SCH (08:32)
[2021-01-01] MEDS: diltiazem CD 180mg cap (once-daily) PO SCH (08:32)
[2021-01-01] MEDS: ferrous sulfate 325mg tablet PO SCH ×2 (08:32→20:34)
[2021-01-01] MEDS: lactobacillus rhamnosus 10,000 MMU CELLS/CAPSULE PO SCH ×2 (08:32→20:31)
[2021-01-01] MEDS: predniSONE 20 mg tablet PO SCH (08:33)
[2021-01-01] MEDS: heparin, porcine 5000 units/ml vial SQ SCH ×2 (08:34→20:38)
[2021-01-01] MEDS: lisinopril 20mg tablet PO SCH (08:42)
[2021-01-01] MEDS: mineral oil/petrolatum, white cream 113gm jar TP SCH ×2 (08:42→20:40)
[2021-01-01] MEDS: CefTRIAXone 2gm/D5W 50ml BAG 50 ML IV SCH (09:46)
[2021-01-01 10:00] VITALS: BP 108/56
[2021-01-01 11:03] LABS: BASOPHILS % (AUTO) 0.2 % (0-1); EOSINOPHILS % (AUTO) 0.2 % (0-6); HEMATOCRIT 34.6 % (35.0-45.0); HEMOGLOBIN 10.7 g/dl (12.0-16.0); LYMPHOCYTES # (AUTO) 1.8 X10'3 (1.1-4.8); LYMPHOCYTES % (AUTO) 15.3 % (21-51); MEAN CORPUSCULAR HEMOGLOBIN 25.6 PG (27.0-31.0); MEAN CORPUSCULAR VOLUME 82.7 FL (78-98); MEAN PLATELET VOLUME 7.5 FL (7.4-10.4); MONOCYTES % (AUTO) 8.3 % (2-12); NEUTROPHILS # (AUTO) 8.9 X10'3 (1.8-7.7); PLATELET COUNT 451 X10'3 (140-440); RED BLOOD COUNT 4.18 X10'6 (4.20-5.60); RED CELL DISTRIBUTION WIDTH 20.2 % (11.5-14.5); WHITE BLOOD COUNT 11.7 X10'3 (4.5-11.0)
[2021-01-01 11:13] LABS: ALBUMIN 2.4 G/DL (3.4-5.0); ANION GAP 3 (8-16); BLOOD UREA NITROGEN 26 MG/DL (7-18); BUN/CREATININE RATIO 23.2 (6.6-38.0); CHLORIDE 105 MMOL/L (99-107); CREATININE 1.12 MG/DL (0.40-0.90); GLUCOSE 95 MG/DL (70-104); POTASSIUM 3.9 MMOL/L (3.5-5.1); SODIUM 146 MMOL/L (135-145); TOTAL CARBON DIOXIDE 37.7 MMOL/L (24-32); eGFR 49 ML/MIN
[2021-01-01 11:44] LABS: ANISOCYTOSIS 3+; PLATELET ESTIMATE INCREASED
[2021-01-01 11:45] LABS: LARGE PLATELETS FEW
--- NOTE | 2021-01-01 14:07 | NUR ---
dressing pt bilateral lower extremities per woc orders, currently cdi, continue to monitor
--- NOTE | 2021-01-01 16:44 | NUR ---
cleaned pt adama area, applied nystatin powder and replaced wick w/new wick, pt is dry at this time, continue to monitor
[2021-01-01 18:00] VITALS: BP 139/92
--- NOTE | 2021-01-01 18:30 | NUR ---
Patient in room ORTHO 4008. I have received report from Fouzia GOMEZ and had the opportunity to ask questions and assume patient care.
[2021-01-01] MEDS: docusate sod 100mg capsule PO SCH (20:28)
[2021-01-01 22:15] VITALS: BP 155/87
[2021-01-02] MEDS: albuterol 2.5 MG/3 ML nebule NEB SCH ×6 (03:00→23:36)
[2021-01-02 06:00] VITALS: BP 153/82
--- NOTE | 2021-01-02 06:15 | NUR ---
Problems reprioritized. Patient report given, questions answered & plan of care reviewed with Fouzia GOMEZ.
[2021-01-02] MEDS: budesonide 0.5mg/2ml UD nebule IH SCH ×2 (07:11→19:48)
[2021-01-02 07:24] LABS: BASOPHILS % (AUTO) 0.1 % (0-1); EOSINOPHILS % (AUTO) 0.3 % (0-6); HEMATOCRIT 34.5 % (35.0-45.0); HEMOGLOBIN 10.7 g/dl (12.0-16.0); LYMPHOCYTES # (AUTO) 2.1 X10'3 (1.1-4.8); MEAN CORPUSCULAR HGB CONC 31.1 g/dL (33.0-36.5); MEAN CORPUSCULAR VOLUME 83.7 FL (78-98); MEAN PLATELET VOLUME 7.9 FL (7.4-10.4); MONOCYTES # (AUTO) 0.8 X10'3 (0-0.9); MONOCYTES % (AUTO) 7.9 % (2-12); NEUTROPHILS # (AUTO) 7.2 X10'3 (1.8-7.7); NEUTROPHILS % (AUTO) 70.7 % (42-75); PLATELET COUNT 407 X10'3 (140-440); RED BLOOD COUNT 4.13 X10'6 (4.20-5.60); RED CELL DISTRIBUTION WIDTH 20.5 % (11.5-14.5); WHITE BLOOD COUNT 10.1 X10'3 (4.5-11.0)
[2021-01-02 07:50] LABS: ALBUMIN 2.5 G/DL (3.4-5.0); ANION GAP 7 (8-16); BLOOD UREA NITROGEN 23 MG/DL (7-18); BUN/CREATININE RATIO 20.5 (6.6-38.0); CALCIUM 9.1 MG/DL (8.5-10.1); CHLORIDE 105 MMOL/L (99-107); CREATININE 1.12 MG/DL (0.40-0.90); GLUCOSE 78 MG/DL (70-104); POTASSIUM 3.9 MMOL/L (3.5-5.1); SODIUM 146 MMOL/L (135-145); TOTAL CARBON DIOXIDE 34.2 MMOL/L (24-32); eGFR 49 ML/MIN
[2021-01-02] MEDS: K and/or MAG REPLACEMENT MC SCH ×2 (08:00→19:34)
[2021-01-02] MEDS: predniSONE 20 mg tablet PO SCH (09:02)
[2021-01-02] MEDS: lactobacillus rhamnosus 10,000 MMU CELLS/CAPSULE PO SCH ×2 (09:02→20:39)
[2021-01-02] MEDS: multivitamins, therapeutics tablet PO SCH (09:02)
[2021-01-02] MEDS: heparin, porcine 5000 units/ml vial SQ SCH ×2 (09:02→20:40)
[2021-01-02] MEDS: ferrous sulfate 325mg tablet PO SCH ×2 (09:02→20:39)
[2021-01-02] MEDS: diltiazem CD 180mg cap (once-daily) PO SCH (09:02)
[2021-01-02] MEDS: lisinopril 20mg tablet PO SCH (09:02)
[2021-01-02 09:03] LABS: ANISOCYTOSIS 3+; PLATELET ESTIMATE NORMAL; TOTAL CELLS COUNTED 100
[2021-01-02 09:04] LABS: ELLIPTOCYTES FEW; HYPOCHROMASIA 1+; LARGE PLATELETS FEW; SCHISTOCYTES FEW
[2021-01-02] MEDS: nystatin 15 GM powder TP SCH ×3 (09:06→20:40)
[2021-01-02] MEDS: mineral oil/petrolatum, white cream 113gm jar TP SCH ×2 (15:30→20:40)
--- NOTE | 2021-01-02 16:25 | NUR ---
Amb to shower, assist with shampoo and shower. Skin care, dressing change.
--- NOTE | 2021-01-02 17:39 | NUR ---
Patient states she normally walks with a younger friend from her apartment to [place]. Explained to patient that with her leg wounds and circulation in her legs walking that far is not a good idea. That much time on her feet makes her legs swell and her wounds will be worse.
[2021-01-02 18:00] VITALS: BP 136/72
--- NOTE | 2021-01-02 18:16 | NUR ---
Report to Nika GOMEZ
--- NOTE | 2021-01-02 18:36 | NUR ---
Patient in room ORTHO 4008. I have received report from Fouzia GOMEZ and had the opportunity to ask questions and assume patient care.
[2021-01-02] MEDS: docusate sod 100mg capsule PO SCH (20:39)
[2021-01-02] MEDS: traMADol 50MG tablet PO PRN (20:39)
[2021-01-02 22:00] VITALS: BP 124/95
[2021-01-03] MEDS: albuterol 2.5 MG/3 ML nebule NEB SCH ×6 (02:53→23:18)
[2021-01-03 06:00] VITALS: BP 141/60
--- NOTE | 2021-01-03 06:24 | NUR ---
Problems reprioritized. Patient report given, questions answered & plan of care reviewed with Chely GOMEZ.
--- NOTE | 2021-01-03 06:49 | NUR ---
Patient in room ORTHO 4008. I have received report from JASON Maher and had the opportunity to ask questions and assume patient care.
[2021-01-03] MEDS: budesonide 0.5mg/2ml UD nebule IH SCH ×2 (06:53→19:56)
[2021-01-03] MEDS: lactobacillus rhamnosus 10,000 MMU CELLS/CAPSULE PO SCH ×2 (07:32→20:01)
[2021-01-03] MEDS: multivitamins, therapeutics tablet PO SCH (07:32)
[2021-01-03] MEDS: heparin, porcine 5000 units/ml vial SQ SCH ×2 (07:32→20:01)
[2021-01-03] MEDS: diltiazem CD 180mg cap (once-daily) PO SCH (07:32)
[2021-01-03] MEDS: ferrous sulfate 325mg tablet PO SCH ×2 (07:32→20:01)
[2021-01-03] MEDS: predniSONE 20 mg tablet PO SCH (07:33)
[2021-01-03] MEDS: lisinopril 20mg tablet PO SCH (07:33)
[2021-01-03] MEDS: nystatin 15 GM powder TP SCH ×3 (07:34→20:00)
[2021-01-03] MEDS: mineral oil/petrolatum, white cream 113gm jar TP SCH ×2 (07:34→20:00)
[2021-01-03] MEDS: K and/or MAG REPLACEMENT MC SCH ×2 (08:00→19:55)
[2021-01-03 10:00] VITALS: BP 128/66
[2021-01-03 11:11] LABS: BASOPHILS % (AUTO) 0.1 % (0-1); EOSINOPHILS % (AUTO) 0.1 % (0-6); HEMATOCRIT 35.3 % (35.0-45.0); LYMPHOCYTES % (AUTO) 7.2 % (21-51); MEAN CORPUSCULAR HEMOGLOBIN 26.3 PG (27.0-31.0); MEAN CORPUSCULAR HGB CONC 31.1 g/dL (33.0-36.5); MEAN CORPUSCULAR VOLUME 84.5 FL (78-98); MEAN PLATELET VOLUME 8.5 FL (7.4-10.4); MONOCYTES # (AUTO) 0.4 X10'3 (0-0.9); MONOCYTES % (AUTO) 3.2 % (2-12); NEUTROPHILS # (AUTO) 12.2 X10'3 (1.8-7.7); NEUTROPHILS % (AUTO) 89.4 % (42-75); PLATELET COUNT 404 X10'3 (140-440); RED BLOOD COUNT 4.18 X10'6 (4.20-5.60); RED CELL DISTRIBUTION WIDTH 20.6 % (11.5-14.5); WHITE BLOOD COUNT 13.7 X10'3 (4.5-11.0)
[2021-01-03 11:24] LABS: ALBUMIN 2.6 G/DL (3.4-5.0); ANION GAP 8 (8-16); BLOOD UREA NITROGEN 27 MG/DL (7-18); BUN/CREATININE RATIO 20.3 (6.6-38.0); CALCIUM 8.9 MG/DL (8.5-10.1); CHLORIDE 103 MMOL/L (99-107); CREATININE 1.33 MG/DL (0.40-0.90); GLUCOSE 118 MG/DL (70-104); POTASSIUM 4.4 MMOL/L (3.5-5.1); SODIUM 143 MMOL/L (135-145); TOTAL CARBON DIOXIDE 31.7 MMOL/L (24-32); eGFR 40 ML/MIN
[2021-01-03 11:54] LABS: NUCLEATED RED BLOOD CELLS 1 /100WBC (0-0); TOTAL CELLS COUNTED 100
[2021-01-03 11:57] LABS: ANISOCYTOSIS 3+; ELLIPTOCYTES FEW; HYPOCHROMASIA 1+; PLATELET ESTIMATE NORMAL; POIKILOCYTOSIS 1+; POLYCHROMASIA 1+; SCHISTOCYTES FEW; STOMATOCYTES 2+; TEAR DROP CELLS FEW
--- NOTE | 2021-01-03 15:16 | NUR ---
Diverticulitis Education: RD internet site designer visited pt at bedside to give written and verbal Diverticulitis education. Pt also provided with RD contact information. Pt A/0x4, per EMR, although pt explained that he was having a hard time focusing due to pain medication. Discussed high and low sources of fiber and how to gradually increase fiber intake over the next few weeks to aid healing and prevent further constipation. Pt stated that his does all the cooking and that she will read through the education. Pt struggled knowing the difference between fiber and protein. Discussed good sources of fiber and protein. All of pt's questions were answered at this time. Pt encouraged to reach out for further questions. Will remain available. Rec: 1. continue regular diet; consider heart healthy given elevate Na w/ CHF/HTN hx 2. routine bowel care 3. scaled wt this admit Addendum: 01/03/21 at [address] Amended: Links added. Addendum: 01/03/21 at [address] I have reviewed and agree with note by Parts Facilitator. Tiffanie Perez RD
[2021-01-03 18:00] VITALS: BP 147/76
--- NOTE | 2021-01-03 18:20 | NUR ---
Problems reprioritized. Patient report given, questions answered & plan of care reviewed with JASON Maher.
--- NOTE | 2021-01-03 18:38 | NUR ---
Patient in room ORTHO 4008. I have received report from Chely GOMEZ and had the opportunity to ask questions and assume patient care.
[2021-01-03] MEDS: docusate sod 100mg capsule PO SCH (20:01)
[2021-01-03 22:00] VITALS: BP 137/76
[2021-01-04] MEDS: albuterol 2.5 MG/3 ML nebule NEB SCH ×3 (03:12→11:07)
[2021-01-04 06:00] VITALS: BP 150/71
--- NOTE | 2021-01-04 06:22 | NUR ---
Problems reprioritized. Patient report given, questions answered & plan of care reviewed with Nathalie GOMEZ.
--- NOTE | 2021-01-04 06:27 | NUR ---
Patient in room ORTHO 4008. I have received report from sd camp and had the opportunity to ask questions and assume patient care.
[2021-01-04] MEDS: multivitamins, therapeutics tablet PO SCH (07:14)
[2021-01-04] MEDS: lisinopril 20mg tablet PO SCH (07:14)
[2021-01-04] MEDS: ferrous sulfate 325mg tablet PO SCH (07:14)
[2021-01-04] MEDS: predniSONE 20 mg tablet PO SCH (07:14)
[2021-01-04] MEDS: diltiazem CD 180mg cap (once-daily) PO SCH (07:14)
[2021-01-04] MEDS: lactobacillus rhamnosus 10,000 MMU CELLS/CAPSULE PO SCH (07:14)
[2021-01-04] MEDS: nystatin 15 GM powder TP SCH ×2 (07:15→13:29)
[2021-01-04] MEDS: mineral oil/petrolatum, white cream 113gm jar TP SCH (07:15)
[2021-01-04] MEDS: heparin, porcine 5000 units/ml vial SQ SCH (07:15)
[2021-01-04] MEDS: K and/or MAG REPLACEMENT MC SCH (08:00)
[2021-01-04] MEDS: budesonide 0.5mg/2ml UD nebule IH SCH (08:07)
[2021-01-04 10:00] VITALS: BP 108/62
[2021-01-04] MEDS ORDERED: PRED10TA23 PO (11:38)
[2021-01-04 11:46] LABS: BASOPHILS % (AUTO) 0.2 % (0-1); EOSINOPHILS % (AUTO) 0.1 % (0-6); HEMATOCRIT 35.5 % (35.0-45.0); HEMOGLOBIN 10.9 g/dl (12.0-16.0); LYMPHOCYTES # (AUTO) 0.8 X10'3 (1.1-4.8); MEAN CORPUSCULAR HGB CONC 30.6 g/dL (33.0-36.5); MEAN PLATELET VOLUME 8.7 FL (7.4-10.4); MONOCYTES # (AUTO) 0.6 X10'3 (0-0.9); MONOCYTES % (AUTO) 3.8 % (2-12); NEUTROPHILS # (AUTO) 15.2 X10'3 (1.8-7.7); NEUTROPHILS % (AUTO) 90.9 % (42-75); PLATELET COUNT 361 X10'3 (140-440); RED BLOOD COUNT 4.18 X10'6 (4.20-5.60); RED CELL DISTRIBUTION WIDTH 21.3 % (11.5-14.5); WHITE BLOOD COUNT 16.7 X10'3 (4.5-11.0)
[2021-01-04 11:55] LABS: ALBUMIN 2.7 G/DL (3.4-5.0); ANION GAP 8 (8-16); BLOOD UREA NITROGEN 25 MG/DL (7-18); BUN/CREATININE RATIO 20.3 (6.6-38.0); CALCIUM 8.6 MG/DL (8.5-10.1); CHLORIDE 103 MMOL/L (99-107); CREATININE 1.23 MG/DL (0.40-0.90); GLUCOSE 109 MG/DL (70-104); POTASSIUM 4.7 MMOL/L (3.5-5.1); SODIUM 142 MMOL/L (135-145); TOTAL CARBON DIOXIDE 31.5 MMOL/L (24-32); eGFR 44 ML/MIN
[2021-01-04 12:33] LABS: ANISOCYTOSIS 3+; ELLIPTOCYTES FEW; HYPOCHROMASIA 1+; PLATELET ESTIMATE NORMAL; POLYCHROMASIA FEW; STOMATOCYTES 1+; TOTAL CELLS COUNTED 100
--- NOTE | 2021-01-04 16:53 | NUR ---
PT DISCHARGED IN STABLE CONDITION. LEFT FACILITY WITH [facility]. IV DC CANULA INTACT. ALL BELONGINGS IN HAND INCLUDING 4 WHEEL WALKER. FOLLOW UP INSTRUCTIONS GIVEN ALL QUESTIONS ANSWERED. Addendum: 01/04/21 at 1654 by Allison Diaz RN Amended: Links added.
== END 2021-01-04 16:34 | disposition home or self-care (01) | DRG 133 ==
LOC: ER 09:47 → ED HOLD 23:52 → PCU 3S 12-26 02:55 → ORTHO 4S 12-30 14:22
PROVIDERS: ADMIT Internal Medicine; ATTEND Internal Medicine
PROC: 5A09357 Assistance with Respiratory Ventilation, Less than 24 Consecutive Hours, Continuous Positive Airway Pressure (ICD-10-PCS; 2020-12-25)
PROC: 5A09357 Assistance with Respiratory Ventilation, Less than 24 Consecutive Hours, Continuous Positive Airway Pressure (ICD-10-PCS; 2020-12-25)
PROC: 5A09357 Assistance with Respiratory Ventilation, Less than 24 Consecutive Hours, Continuous Positive Airway Pressure (ICD-10-PCS; principal; 2020-12-27)
DX: J96.20 Acute and chronic respiratory failure, unspecified whether with hypoxia or hypercapnia (principal); E87.0 Hyperosmolality and hypernatremia; E87.2 Acidosis; E46 Unspecified protein-calorie malnutrition; J44.1 Chronic obstructive pulmonary disease with (acute) exacerbation; D64.9 Anemia, unspecified; F20.9 Schizophrenia, unspecified; I12.9 Hypertensive chronic kidney disease with stage 1 through stage 4 chronic kidney disease, or unspecified chronic kidney disease; F17.200 Nicotine dependence, unspecified, uncomplicated; N18.30 Chronic kidney disease, stage 3 unspecified; Z86.73 Personal history of transient ischemic attack (TIA), and cerebral infarction without residual deficits; Z68.38 Body mass index [BMI] 38.0-38.9, adult; Z88.8 Allergy status to other drugs, medicaments and biological substances; Z79.899 Other long term (current) drug therapy
CPT/HCPCS: 36415; 36600; 71045; 71275; 80048; 80053; 80329; 81001; 82800; 82803; 82948; 83605; 84145; 85007; 85008; 85018; 85025; 85379; 87040; 87081; 87088; 93005; 94640; 94660; 94667; 94668; 94760; 96361; 96374; 97110; 97116; 97162; 97530; 99285; G0378; J0696; J1644; J2920; J2930; J7030; J7512; J7626; Q9967

== ENCOUNTER 2021-01-15 11:00 | Inpatient (IN) | payer MEDICAID ==
[~2021-01-15] VITALS: Ht 162.6 cm; Wt 108.0 kg
[~2021-01-15 11:00] MED LIST changes: +ALB0.5UD IH; +BACI1CAP6 PO; +DOCU-148 PO; -FURO20TA4 PO; +MULT-382 PO; -POTA10TA PO; +PRED10TA23 PO; -RISP1TAB98 PO
[2021-01-15 11:34] LABS: BASOPHILS % (AUTO) 0.3 % (0-1); EOSINOPHILS # (AUTO) 0.1 X10'3 (0-0.9); EOSINOPHILS % (AUTO) 1.4 % (0-6); HEMATOCRIT 31.5 % (35.0-45.0); HEMOGLOBIN 10.1 g/dl (12.0-16.0); LYMPHOCYTES # (AUTO) 1.4 X10'3 (1.1-4.8); LYMPHOCYTES % (AUTO) 17.1 % (21-51); MEAN CORPUSCULAR HEMOGLOBIN 27.1 PG (27.0-31.0); MEAN CORPUSCULAR VOLUME 84.9 FL (78-98); MEAN PLATELET VOLUME 7.3 FL (7.4-10.4); MONOCYTES # (AUTO) 0.7 X10'3 (0-0.9); MONOCYTES % (AUTO) 8.2 % (2-12); NEUTROPHILS # (AUTO) 5.9 X10'3 (1.8-7.7); PLATELET COUNT 352 X10'3 (140-440); RED BLOOD COUNT 3.71 X10'6 (4.20-5.60); RED CELL DISTRIBUTION WIDTH 19.3 % (11.5-14.5); WHITE BLOOD COUNT 8.1 X10'3 (4.5-11.0)
[2021-01-15 11:49] LABS: ALANINE AMINOTRANSFERASE 19 U/L (12-78); ALBUMIN 2.5 G/DL (3.4-5.0); ALBUMIN/GLOBULIN RATIO 0.6 (1.1-1.5); ALKALINE PHOSPHATASE 122 IU/L (46-116); ANION GAP 8 (8-16); ASPARTATE AMINO TRANSFERASE 8 U/L (10-37); BILIRUBIN,TOTAL 0.2 MG/DL (0.1-1.0); BLOOD UREA NITROGEN 8 MG/DL (7-18); BUN/CREATININE RATIO 7.8 (6.6-38.0); CALCIUM 8.5 MG/DL (8.5-10.1); CHLORIDE 111 MMOL/L (99-107); CREATININE 1.03 MG/DL (0.40-0.90); GLUCOSE 127 MG/DL (70-104); SODIUM 148 MMOL/L (135-145); TOTAL CARBON DIOXIDE 28.6 MMOL/L (24-32); TOTAL PROTEIN 6.7 G/DL (6.4-8.2); eGFR 54 ML/MIN
[2021-01-15] MEDS ORDERED: ipratropium/albuterol 3ml nebule NEB ONE (12:10)
[2021-01-15 12:19] LABS: ANISOCYTOSIS 2+; PLATELET ESTIMATE NORMAL
--- NOTE | 2021-01-15 12:21 | NUR ---
RT AT BEDSIDE AT THIS TIME TO ADMINISTER BREATHING TREATMENT PER MD ORDER.
[2021-01-15] MEDS ORDERED: normal saline 1000ML IV soln IVB ONE (12:50)
[2021-01-15] MEDS ORDERED: methylPREDNISolone sod succ 125mg/2ml vial IV ONE (12:50)
--- NOTE | 2021-01-15 15:18 | NUR ---
RT AT BEDSIDE TO PERFORM BEDSIDE ABG PER MD ORDER.
[2021-01-15 15:25] LABS: ABG BASE EXCESS -4.1 mmol/L (-2.0-2.0); ABG HCO3 25.1 mmol/L (22.0-26.0); ABG OXYGEN SATURATION 93.4 % (94-97); ABG PCO2 (T) 69.4 mmHg (32.0-45.0); ABG PO2 (T) 79.7 mmHg (75.0-100.0); ALLEN'S TEST POSITIVE; FCOHb 0.9 % (0.0-3.9); FMetHb 0.1 % (0.0-1.5); FO2Hb 92.5 % (94-97); TOTAL HEMOGLOBIN 10.5 G/dl (12.0-16.0)
[2021-01-15] MEDS ORDERED: HYDROcodone/acetaminophen 5mg/325mg tablet PO PRN (16:00)
[2021-01-15] MEDS ORDERED: heparin, porcine 5000 units/ml vial SQ SCH (16:00)
[2021-01-15] MEDS ORDERED: HYDROcodone/acetaminophen 10/325mg tab PO PRN (16:00)
[2021-01-15] MEDS ORDERED: potassium Cl 20 mEq SR tablet PO PRN ×2 (16:00)
[2021-01-15] MEDS ORDERED: mag hydrox/Alum hydrox/simeth 30ml oral suspension PO PRN (16:00)
[2021-01-15] MEDS ORDERED: potassium Cl 40MEQ/1/2NS 520ml 520 ML IV PRN (16:00)
[2021-01-15] MEDS ORDERED: acetaminophen 325mg tablet PO PRN ×2 (16:00)
[2021-01-15] MEDS ORDERED: levalbuterol 0.63mg/3ml nebule IH PRN (16:00)
[2021-01-15] MEDS ORDERED: magnesium 4gm in 100ml NS 100 ML IV PRN (16:00)
[2021-01-15] MEDS ORDERED: ondansetron/PF 4mg/2ml inj IV PRN (16:00)
[2021-01-15] MEDS ORDERED: magnesium 2GM in 50ml NS 50 ML IV PRN (16:00)
--- NOTE | 2021-01-15 16:22 | NUR ---
RT AT BEDSIDE TO PLACE PATIENT ON BIPAP, FIO2 25%, SPO2 96%, PATIENT SLEEPING SOUNDLY, NO SIGNS OF DISTRESS NOTED.
[2021-01-15] MEDS: methylPREDNISolone sod succ 125mg/2ml vial IV SCH (16:56)
[2021-01-15] MEDS: CefTRIAXone/D5W-Rocephin 1gm 50 ML IV SCH (17:09)
[2021-01-15 17:30] LABS: ABG BASE EXCESS -0.4 mmol/L (-2.0-2.0); ABG HCO3 27.2 mmol/L (22.0-26.0); ABG OXYGEN SATURATION 90.8 % (94-97); ABG PO2 (T) 62.8 mmHg (75.0-100.0); ALLEN'S TEST POSITIVE; FCOHb 0.9 % (0.0-3.9); FMetHb 0.3 % (0.0-1.5); FO2Hb 89.7 % (94-97); RESPIRATORY RATE 20 b/min; TOTAL HEMOGLOBIN 10.3 G/dl (12.0-16.0)
--- NOTE | 2021-01-15 17:38 | NUR ---
CALL TO PHARMACY FOR POTASSIUM IV REPLACEMENT PER POLICY FOR K 3.0 (SEE EMAR).
--- NOTE | 2021-01-15 17:54 | NUR ---
PAGE SENT TO DR CROWDER REGARDING INTERMITTENT LOW HR <50 SINCE 1600.
--- NOTE | 2021-01-15 18:09 | NUR ---
SPOKE WITH DR CROWDER REGARDING PATIENT'S LOW HR. MD STATES HE HAS MANAGED THIS PATIENT MANY TIMES AND HAS NOTED PATIENT HAS SICK SINUS SYNDROME TO WHICH PATIENT REFUSED A PACEMAKER. PATIENT KNOWN TO HAVE 3 SECOND PAUSES PER MD AND HAS GIVEN NO NEW ORDERS AT THIS TIME.
--- NOTE | 2021-01-15 18:39 | NUR ---
Cld Dr. Mcelroy because BP 215/119 HR 108. Per MD give Hydralazine 10mg now and Q6hr for SBP >160.
[2021-01-15] MEDS: hydrALAZINE 20mg/ml inj. IV PRN (19:19)
[2021-01-15] MEDS: K and/or MAG REPLACEMENT MC SCH (20:00)
[2021-01-15] MEDS: budesonide 0.5mg/2ml UD nebule IH SCH (20:06)
[2021-01-15] MEDS: ipratropium 0.5 MG/2.5ML nebule IH SCH (20:06)
[2021-01-15] MEDS: levalbuterol 0.63mg/3ml nebule IH SCH (20:06)
--- NOTE | 2021-01-15 20:12 | NUR ---
Patient with RT.
[2021-01-15] MEDS: apixaban 5mg tablet PO SCH (21:08)
[2021-01-15] MEDS: docusate sod 100mg capsule PO SCH (21:09)
--- NOTE | 2021-01-15 21:12 | NUR ---
Patient given 2000 meds and asked to take a break from the Bipap, I agreed to this and will continue to monitor.
--- NOTE | 2021-01-15 23:44 | NUR ---
patient placed on hospital bed and linen changed secondary to urine incontinence.
[2021-01-16] MEDS: potassium Cl 40MEQ/1/2NS 520ml 520 ML IV PRN ×2 (00:05→06:11)
[2021-01-16] MEDS: methylPREDNISolone sod succ 125mg/2ml vial IV SCH ×4 (00:05→23:46)
[2021-01-16] MEDS: hydrALAZINE 20mg/ml inj. IV PRN (06:09)
[2021-01-16] MEDS: budesonide 0.5mg/2ml UD nebule IH SCH ×2 (07:20→20:24)
[2021-01-16] MEDS: ipratropium 0.5 MG/2.5ML nebule IH SCH ×3 (07:20→20:24)
[2021-01-16] MEDS: levalbuterol 0.63mg/3ml nebule IH SCH ×3 (07:26→20:24)
[2021-01-16] MEDS: ferrous sulfate 325mg tablet PO SCH (07:53)
[2021-01-16] MEDS: diltiazem CD 180mg cap (once-daily) PO SCH (07:54)
[2021-01-16] MEDS: apixaban 5mg tablet PO SCH ×2 (07:54→20:33)
[2021-01-16] MEDS: lisinopril 10 MG tablet PO SCH (07:55)
[2021-01-16] MEDS: docusate sod 100mg capsule PO SCH ×2 (07:56→20:33)
[2021-01-16] MEDS: K and/or MAG REPLACEMENT MC SCH ×2 (08:00→20:00)
[2021-01-16] MEDS: CefTRIAXone/D5W-Rocephin 1gm 50 ML IV SCH (08:08)
[2021-01-16] MEDS: fluconazole-Diflucan 200mg/NS 100 ML IV SCH (08:09)
[2021-01-16 08:22] LABS: BASOPHILS % (AUTO) 0.1 % (0-1); EOSINOPHILS % (AUTO) 0 % (0-6); HEMATOCRIT 33.6 % (35.0-45.0); HEMOGLOBIN 10.5 g/dl (12.0-16.0); LYMPHOCYTES # (AUTO) 0.6 X10'3 (1.1-4.8); LYMPHOCYTES % (AUTO) 8.7 % (21-51); MEAN CORPUSCULAR HEMOGLOBIN 26.6 PG (27.0-31.0); MEAN CORPUSCULAR HGB CONC 31.3 g/dL (33.0-36.5); MEAN CORPUSCULAR VOLUME 84.9 FL (78-98); MEAN PLATELET VOLUME 7.9 FL (7.4-10.4); MONOCYTES # (AUTO) 0.1 X10'3 (0-0.9); MONOCYTES % (AUTO) 0.9 % (2-12); NEUTROPHILS # (AUTO) 5.9 X10'3 (1.8-7.7); NEUTROPHILS % (AUTO) 90.3 % (42-75); PLATELET COUNT 327 X10'3 (140-440); RED BLOOD COUNT 3.96 X10'6 (4.20-5.60); RED CELL DISTRIBUTION WIDTH 19.6 % (11.5-14.5); WHITE BLOOD COUNT 6.6 X10'3 (4.5-11.0)
[2021-01-16 08:33] LABS: ALANINE AMINOTRANSFERASE 24 U/L (12-78); ALBUMIN 2.2 G/DL (3.4-5.0); ALBUMIN/GLOBULIN RATIO 0.6 (1.1-1.5); ALKALINE PHOSPHATASE 117 IU/L (46-116); ANION GAP 11 (8-16); ASPARTATE AMINO TRANSFERASE 12 U/L (10-37); BILIRUBIN,TOTAL 0.2 MG/DL (0.1-1.0); BLOOD UREA NITROGEN 10 MG/DL (7-18); BUN/CREATININE RATIO 11.6 (6.6-38.0); CALCIUM 8.2 MG/DL (8.5-10.1); CHLORIDE 109 MMOL/L (99-107); CREATININE 0.86 MG/DL (0.40-0.90); GLUCOSE 127 MG/DL (70-104); POTASSIUM 4.3 MMOL/L (3.5-5.1); SODIUM 146 MMOL/L (135-145); TOTAL CARBON DIOXIDE 25.9 MMOL/L (24-32); TOTAL PROTEIN 6.2 G/DL (6.4-8.2); eGFR 66 ML/MIN
[2021-01-16 09:16] LABS: ANISOCYTOSIS 2+; PLATELET ESTIMATE NORMAL
[2021-01-16 09:18] LABS: POLYCHROMASIA FEW; SCHISTOCYTES FEW
[2021-01-16 15:54] VITALS: BP 150/78
[2021-01-16 18:00] VITALS: BP 155/89
[2021-01-16] MEDS: lactobacillus rhamnosus 10,000 MMU CELLS/CAPSULE PO SCH (20:33)
[2021-01-16 22:00] VITALS: BP 155/94
[2021-01-17] VITALS (8 sets, daily range): BP systolic 149–193; BP diastolic 72–104
[2021-01-17] MEDS: hydrALAZINE 20mg/ml inj. IV PRN ×2 (02:32→19:22)
--- NOTE | 2021-01-17 06:27 | NUR ---
Problems reprioritized. Patient report given, questions answered & plan of care reviewed with JASON Alcantar.
[2021-01-17 06:37] LABS: BASOPHILS % (AUTO) 0.3 % (0-1); EOSINOPHILS % (AUTO) 0 % (0-6); HEMATOCRIT 35.1 % (35.0-45.0); HEMOGLOBIN 11.1 g/dl (12.0-16.0); LYMPHOCYTES # (AUTO) 0.5 X10'3 (1.1-4.8); LYMPHOCYTES % (AUTO) 4.5 % (21-51); MEAN CORPUSCULAR HEMOGLOBIN 26.7 PG (27.0-31.0); MEAN CORPUSCULAR HGB CONC 31.5 g/dL (33.0-36.5); MEAN CORPUSCULAR VOLUME 84.6 FL (78-98); MEAN PLATELET VOLUME 7.8 FL (7.4-10.4); MONOCYTES # (AUTO) 0.2 X10'3 (0-0.9); MONOCYTES % (AUTO) 1.8 % (2-12); NEUTROPHILS % (AUTO) 93.4 % (42-75); PLATELET COUNT 339 X10'3 (140-440); RED BLOOD COUNT 4.15 X10'6 (4.20-5.60); RED CELL DISTRIBUTION WIDTH 19.8 % (11.5-14.5); WHITE BLOOD COUNT 10.7 X10'3 (4.5-11.0)
--- NOTE | 2021-01-17 06:45 | NUR ---
Patient in room PCU 3011. I have received report from JASON Goss and had the opportunity to ask questions and assume patient care.
[2021-01-17 06:53] LABS: ALANINE AMINOTRANSFERASE 18 U/L (12-78); ALBUMIN 2.4 G/DL (3.4-5.0); ALBUMIN/GLOBULIN RATIO 0.5 (1.1-1.5); ALKALINE PHOSPHATASE 110 IU/L (46-116); ANION GAP 9 (8-16); ASPARTATE AMINO TRANSFERASE 10 U/L (10-37); BILIRUBIN,TOTAL 0.1 MG/DL (0.1-1.0); BLOOD UREA NITROGEN 21 MG/DL (7-18); BUN/CREATININE RATIO 22.1 (6.6-38.0); CHLORIDE 109 MMOL/L (99-107); CREATININE 0.95 MG/DL (0.40-0.90); GLUCOSE 151 MG/DL (70-104); MAGNESIUM 2.3 MG/DL (1.5-2.4); POTASSIUM 4.3 MMOL/L (3.5-5.1); SODIUM 146 MMOL/L (135-145); TOTAL CARBON DIOXIDE 28.5 MMOL/L (24-32); TOTAL PROTEIN 6.8 G/DL (6.4-8.2); eGFR 59 ML/MIN
[2021-01-17] MEDS: K and/or MAG REPLACEMENT MC SCH ×2 (08:00→20:00)
[2021-01-17 08:10] LABS: ANISOCYTOSIS 2+; ELLIPTOCYTES FEW; PLATELET ESTIMATE NORMAL; POLYCHROMASIA FEW; SCHISTOCYTES FEW
[2021-01-17] MEDS: levalbuterol 0.63mg/3ml nebule IH SCH ×3 (08:12→20:07)
[2021-01-17] MEDS: ipratropium 0.5 MG/2.5ML nebule IH SCH ×3 (08:12→20:07)
[2021-01-17] MEDS: budesonide 0.5mg/2ml UD nebule IH SCH ×2 (08:12→20:07)
[2021-01-17] MEDS: methylPREDNISolone sod succ 125mg/2ml vial IV SCH ×3 (08:25→23:14)
[2021-01-17] MEDS: docusate sod 100mg capsule PO SCH ×2 (08:26→19:21)
[2021-01-17] MEDS: lisinopril 10 MG tablet PO SCH (08:26)
[2021-01-17] MEDS: diltiazem CD 180mg cap (once-daily) PO SCH (08:26)
[2021-01-17] MEDS: apixaban 5mg tablet PO SCH ×2 (08:26→19:21)
[2021-01-17] MEDS: ferrous sulfate 325mg tablet PO SCH (08:26)
[2021-01-17] MEDS: lactobacillus rhamnosus 10,000 MMU CELLS/CAPSULE PO SCH ×2 (08:26→19:21)
[2021-01-17] MEDS: fluconazole-Diflucan 200mg/NS 100 ML IV SCH (08:27)
[2021-01-17] MEDS: CefTRIAXone/D5W-Rocephin 1gm 50 ML IV SCH (09:56)
--- NOTE | 2021-01-17 18:37 | NUR ---
Problems reprioritized. Patient report given, questions answered & plan of care reviewed with JASON Goss.
[2021-01-17] MEDS: mineral oil/petrolatum, white cream 113gm jar TP SCH (19:52)
[2021-01-18 02:00] VITALS: BP 166/87
[2021-01-18] MEDS: hydrALAZINE 20mg/ml inj. IV PRN ×2 (02:18→22:45)
[2021-01-18 06:00] VITALS: BP 178/94
--- NOTE | 2021-01-18 06:10 | NUR ---
Patient in room PCU 3011. I have received report from JASON Hadley and had the opportunity to ask questions and assume patient care.
--- NOTE | 2021-01-18 06:20 | NUR ---
Problems reprioritized. Patient report given, questions answered & plan of care reviewed with JASON Lainez.
[2021-01-18 07:02] LABS: BASOPHILS % (AUTO) 0.1 % (0-1); EOSINOPHILS % (AUTO) 0 % (0-6); HEMATOCRIT 38.5 % (35.0-45.0); LYMPHOCYTES # (AUTO) 0.5 X10'3 (1.1-4.8); LYMPHOCYTES % (AUTO) 3.9 % (21-51); MEAN CORPUSCULAR HEMOGLOBIN 26.5 PG (27.0-31.0); MEAN CORPUSCULAR HGB CONC 31.2 g/dL (33.0-36.5); MEAN CORPUSCULAR VOLUME 84.9 FL (78-98); MEAN PLATELET VOLUME 7.6 FL (7.4-10.4); MONOCYTES # (AUTO) 0.2 X10'3 (0-0.9); MONOCYTES % (AUTO) 1.6 % (2-12); NEUTROPHILS # (AUTO) 11.6 X10'3 (1.8-7.7); NEUTROPHILS % (AUTO) 94.4 % (42-75); PLATELET COUNT 367 X10'3 (140-440); RED BLOOD COUNT 4.54 X10'6 (4.20-5.60); WHITE BLOOD COUNT 12.3 X10'3 (4.5-11.0)
[2021-01-18 07:26] LABS: ALANINE AMINOTRANSFERASE 15 U/L (12-78); ALBUMIN 2.7 G/DL (3.4-5.0); ALBUMIN/GLOBULIN RATIO 0.6 (1.1-1.5); ALKALINE PHOSPHATASE 114 IU/L (46-116); ANION GAP 13 (8-16); ASPARTATE AMINO TRANSFERASE 10 U/L (10-37); BILIRUBIN,TOTAL 0.2 MG/DL (0.1-1.0); BLOOD UREA NITROGEN 31 MG/DL (7-18); BUN/CREATININE RATIO 28.4 (6.6-38.0); CALCIUM 9.3 MG/DL (8.5-10.1); CHLORIDE 105 MMOL/L (99-107); CREATININE 1.09 MG/DL (0.40-0.90); GLUCOSE 152 MG/DL (70-104); MAGNESIUM 2.7 MG/DL (1.5-2.4); POTASSIUM 4.2 MMOL/L (3.5-5.1); SODIUM 146 MMOL/L (135-145); TOTAL CARBON DIOXIDE 28.1 MMOL/L (24-32); TOTAL PROTEIN 7.3 G/DL (6.4-8.2); eGFR 50 ML/MIN
[2021-01-18] MEDS: CefTRIAXone/D5W-Rocephin 1gm 50 ML IV SCH (07:35)
[2021-01-18] MEDS: methylPREDNISolone sod succ 125mg/2ml vial IV SCH ×2 (07:36→16:27)
[2021-01-18] MEDS: lactobacillus rhamnosus 10,000 MMU CELLS/CAPSULE PO SCH ×2 (07:37→20:50)
[2021-01-18] MEDS: diltiazem CD 180mg cap (once-daily) PO SCH (07:37)
[2021-01-18] MEDS: ferrous sulfate 325mg tablet PO SCH (07:37)
[2021-01-18] MEDS: docusate sod 100mg capsule PO SCH ×2 (07:37→20:50)
[2021-01-18] MEDS: lisinopril 10 MG tablet PO SCH (07:39)
[2021-01-18] MEDS: mineral oil/petrolatum, white cream 113gm jar TP SCH ×2 (07:39→20:50)
[2021-01-18] MEDS: fluconazole-Diflucan 200mg/NS 100 ML IV SCH (07:39)
[2021-01-18] MEDS: apixaban 5mg tablet PO SCH ×2 (07:39→20:50)
[2021-01-18] MEDS: ipratropium 0.5 MG/2.5ML nebule IH SCH ×3 (08:00→19:58)
[2021-01-18] MEDS: budesonide 0.5mg/2ml UD nebule IH SCH ×2 (08:00→20:00)
[2021-01-18] MEDS: levalbuterol 0.63mg/3ml nebule IH SCH ×3 (08:00→19:58)
[2021-01-18] MEDS: K and/or MAG REPLACEMENT MC SCH ×2 (08:00→20:00)
[2021-01-18 08:07] LABS: ANISOCYTOSIS 2+; MICROCYTOSIS 1+; PLATELET ESTIMATE NORMAL; POIKILOCYTOSIS FEW; POLYCHROMASIA FEW
[2021-01-18 10:00] VITALS: BP 173/93
--- NOTE | 2021-01-18 12:13 | NUR ---
Initial: Pt admit for acute respiratory failure secondary to an acute exacerbation of chronic COPD and chronic BLE cellulitis with a secondary significant tinea pedis and likely fungal infection of BLE per H&P. Per [facility] notes no open areas at this time. Pt on a heart healthy diet documented with 100% PO intake throughout LOS. D/w dietary to send double protein BIDLD for satiety and increased protein needs. No documented LBM though pt receiving routine bowel care and documented no GI symptoms. D/w dietary to send prunes and prune juice with next meal to further assist with bowel regularity. Will continue to follow and monitor need for further nutrition intervention. Recommendations: 1) Continue heart healthy diet 2) Double protein BIDLD 3) Routine bowel care 4) Scaled weights per rx Addendum: 01/18/21 at [address] Amended: Links added.
[2021-01-18 15:00] VITALS: BP 135/71
[2021-01-18 18:00] VITALS: BP 149/83
--- NOTE | 2021-01-18 18:00 | NUR ---
Report received from JASON Lainez.
--- NOTE | 2021-01-18 18:24 | NUR ---
Problems reprioritized. Patient report given, questions answered & plan of care reviewed with JASON Ching.
[2021-01-18 22:00] VITALS: BP 180/100
[2021-01-18] MEDS ORDERED: dextrose 5%-1/4 normal saline 1,000 ML IV SCH (22:35)
--- NOTE | 2021-01-18 22:57 | NUR ---
patient has been given 10mg of apresoliine for BP 180/100.
[2021-01-19] VITALS (7 sets, daily range): BP systolic 138–175; BP diastolic 59–97
[2021-01-19] MEDS: methylPREDNISolone sod succ 125mg/2ml vial IV SCH ×3 (00:13→15:55)
--- NOTE | 2021-01-19 06:00 | NUR ---
report given to JASON Lainez.
--- NOTE | 2021-01-19 06:08 | NUR ---
Patient in room PCU 3011. I have received report from JASON Ching and had the opportunity to ask questions and assume patient care.
[2021-01-19 07:07] LABS: BASOPHILS % (AUTO) 0 % (0-1); EOSINOPHILS % (AUTO) 0 % (0-6); HEMATOCRIT 38.4 % (35.0-45.0); HEMOGLOBIN 12.3 g/dl (12.0-16.0); LYMPHOCYTES # (AUTO) 0.4 X10'3 (1.1-4.8); LYMPHOCYTES % (AUTO) 4.7 % (21-51); MEAN CORPUSCULAR HEMOGLOBIN 26.8 PG (27.0-31.0); MEAN CORPUSCULAR VOLUME 83.7 FL (78-98); MEAN PLATELET VOLUME 7.5 FL (7.4-10.4); MONOCYTES # (AUTO) 0.2 X10'3 (0-0.9); MONOCYTES % (AUTO) 2.5 % (2-12); NEUTROPHILS # (AUTO) 8.6 X10'3 (1.8-7.7); NEUTROPHILS % (AUTO) 92.8 % (42-75); PLATELET COUNT 316 X10'3 (140-440); RED BLOOD COUNT 4.59 X10'6 (4.20-5.60); RED CELL DISTRIBUTION WIDTH 19.9 % (11.5-14.5); WHITE BLOOD COUNT 9.2 X10'3 (4.5-11.0)
[2021-01-19 07:19] LABS: ALANINE AMINOTRANSFERASE 20 U/L (12-78); ALBUMIN 2.6 G/DL (3.4-5.0); ALBUMIN/GLOBULIN RATIO 0.6 (1.1-1.5); ALKALINE PHOSPHATASE 101 IU/L (46-116); ANION GAP 5 (8-16); ASPARTATE AMINO TRANSFERASE 11 U/L (10-37); BILIRUBIN,TOTAL 0.1 MG/DL (0.1-1.0); BLOOD UREA NITROGEN 38 MG/DL (7-18); BUN/CREATININE RATIO 33.9 (6.6-38.0); CHLORIDE 105 MMOL/L (99-107); CREATININE 1.12 MG/DL (0.40-0.90); GLUCOSE 155 MG/DL (70-104); MAGNESIUM 2.6 MG/DL (1.5-2.4); POTASSIUM 4.1 MMOL/L (3.5-5.1); SODIUM 145 MMOL/L (135-145); TOTAL PROTEIN 6.8 G/DL (6.4-8.2); eGFR 49 ML/MIN
[2021-01-19] MEDS: K and/or MAG REPLACEMENT MC SCH ×2 (08:00→19:19)
[2021-01-19] MEDS: mineral oil/petrolatum, white cream 113gm jar TP SCH ×2 (08:00→19:19)
[2021-01-19 08:15] LABS: ANISOCYTOSIS 2+; PLATELET ESTIMATE NORMAL; POLYCHROMASIA FEW; TOTAL CELLS COUNTED 100
[2021-01-19] MEDS: lactobacillus rhamnosus 10,000 MMU CELLS/CAPSULE PO SCH ×2 (08:50→19:19)
[2021-01-19] MEDS: fluconazole-Diflucan 200mg/NS 100 ML IV SCH (08:50)
[2021-01-19] MEDS: CefTRIAXone/D5W-Rocephin 1gm 50 ML IV SCH (08:50)
[2021-01-19] MEDS: diltiazem CD 180mg cap (once-daily) PO SCH (08:51)
[2021-01-19] MEDS: ferrous sulfate 325mg tablet PO SCH (08:51)
[2021-01-19] MEDS: apixaban 5mg tablet PO SCH ×2 (08:51→19:19)
[2021-01-19] MEDS: lisinopril 10 MG tablet PO SCH (08:51)
[2021-01-19] MEDS: docusate sod 100mg capsule PO SCH ×2 (08:52→19:19)
--- NOTE | 2021-01-19 09:34 | NUR ---
Paged Dr. Neville: PAGER ID: [phone] MESSAGE: danika churchill rm 3011 currently receiving D51/4NS @75 ml/hr. Would you like a different fluid when this bag is complete? Fatou [phone]
[2021-01-19] MEDS: levalbuterol 0.63mg/3ml nebule IH SCH ×3 (09:35→20:35)
[2021-01-19] MEDS: ipratropium 0.5 MG/2.5ML nebule IH SCH ×3 (09:35→20:35)
[2021-01-19] MEDS: budesonide 0.5mg/2ml UD nebule IH SCH ×2 (09:35→20:35)
--- NOTE | 2021-01-19 11:26 | NUR ---
Paged Dr Neville: PAGER ID: [phone] MESSAGE: kaleb welsh [phone]. Please clarify psych consult. Worded as hx of schizophrenia w/o psych rx in one place, stated as gravely disabled, with possible schizophrenia, in another. Consult interrupted 01/19, will occur today Fatou [phone]
--- NOTE | 2021-01-19 18:07 | NUR ---
Problems reprioritized. Patient report given, questions answered & plan of care reviewed with JASON Ching.
[2021-01-19] MEDS: hydrALAZINE 20mg/ml inj. IV PRN (22:57)
--- NOTE | 2021-01-19 23:04 | NUR ---
10mg iv apresoline admnistered to patient, had a BP-175/97.
[2021-01-20] VITALS (9 sets, daily range): BP systolic 130–169; BP diastolic 53–93
--- NOTE | 2021-01-20 06:15 | NUR ---
Patient in room PCU 3011. I have received report from JASON Griffin and had the opportunity to ask questions and assume patient care.
--- NOTE | 2021-01-20 06:21 | NUR ---
report given to JASON Marie.
[2021-01-20 06:52] LABS: BASOPHILS % (AUTO) 0.1 % (0-1); EOSINOPHILS % (AUTO) 0 % (0-6); HEMOGLOBIN 12.6 g/dl (12.0-16.0); LYMPHOCYTES # (AUTO) 0.6 X10'3 (1.1-4.8); LYMPHOCYTES % (AUTO) 6.9 % (21-51); MEAN CORPUSCULAR HEMOGLOBIN 27.3 PG (27.0-31.0); MEAN CORPUSCULAR HGB CONC 32.4 g/dL (33.0-36.5); MEAN CORPUSCULAR VOLUME 84.3 FL (78-98); MEAN PLATELET VOLUME 7.6 FL (7.4-10.4); MONOCYTES # (AUTO) 0.4 X10'3 (0-0.9); MONOCYTES % (AUTO) 4.8 % (2-12); NEUTROPHILS # (AUTO) 8.1 X10'3 (1.8-7.7); NEUTROPHILS % (AUTO) 88.2 % (42-75); PLATELET COUNT 338 X10'3 (140-440); RED BLOOD COUNT 4.62 X10'6 (4.20-5.60); RED CELL DISTRIBUTION WIDTH 20.4 % (11.5-14.5); WHITE BLOOD COUNT 9.2 X10'3 (4.5-11.0)
[2021-01-20] MEDS: ipratropium 0.5 MG/2.5ML nebule IH SCH ×3 (07:16→20:38)
[2021-01-20] MEDS: levalbuterol 0.63mg/3ml nebule IH SCH ×3 (07:16→20:38)
[2021-01-20] MEDS: budesonide 0.5mg/2ml UD nebule IH SCH ×2 (07:16→20:38)
[2021-01-20 07:24] LABS: ALANINE AMINOTRANSFERASE 49 U/L (12-78); ALBUMIN 2.6 G/DL (3.4-5.0); ALBUMIN/GLOBULIN RATIO 0.7 (1.1-1.5); ALKALINE PHOSPHATASE 96 IU/L (46-116); ANION GAP 7 (8-16); ASPARTATE AMINO TRANSFERASE 23 U/L (10-37); BILIRUBIN,TOTAL 0.1 MG/DL (0.1-1.0); BLOOD UREA NITROGEN 43 MG/DL (7-18); BUN/CREATININE RATIO 40.2 (6.6-38.0); CALCIUM 8.8 MG/DL (8.5-10.1); CHLORIDE 105 MMOL/L (99-107); CREATININE 1.07 MG/DL (0.40-0.90); GLUCOSE 118 MG/DL (70-104); MAGNESIUM 2.7 MG/DL (1.5-2.4); POTASSIUM 4.5 MMOL/L (3.5-5.1); SODIUM 144 MMOL/L (135-145); TOTAL CARBON DIOXIDE 32.4 MMOL/L (24-32); TOTAL PROTEIN 6.6 G/DL (6.4-8.2); eGFR 51 ML/MIN
[2021-01-20] MEDS: K and/or MAG REPLACEMENT MC SCH ×2 (07:28→19:18)
[2021-01-20] MEDS: CefTRIAXone/D5W-Rocephin 1gm 50 ML IV SCH (08:54)
[2021-01-20] MEDS: lactobacillus rhamnosus 10,000 MMU CELLS/CAPSULE PO SCH ×2 (08:55→20:16)
[2021-01-20] MEDS: fluconazole 100mg tablet PO SCH (08:55)
[2021-01-20] MEDS: diltiazem CD 180mg cap (once-daily) PO SCH (08:55)
[2021-01-20] MEDS: apixaban 5mg tablet PO SCH ×2 (08:55→20:16)
[2021-01-20] MEDS: methylPREDNISolone sod succ/PF 40mg inj. IV SCH ×2 (08:56→20:16)
[2021-01-20] MEDS: docusate sod 100mg capsule PO SCH ×2 (08:56→20:16)
[2021-01-20] MEDS: ferrous sulfate 325mg tablet PO SCH (08:56)
[2021-01-20] MEDS: lisinopril 10 MG tablet PO SCH (08:56)
[2021-01-20] MEDS: mineral oil/petrolatum, white cream 113gm jar TP SCH ×2 (08:57→20:18)
[2021-01-20 11:02] LABS: ANISOCYTOSIS 3+; PLATELET ESTIMATE NORMAL; POLYCHROMASIA FEW
[2021-01-20] MEDS: hydrALAZINE 20mg/ml inj. IV PRN (12:47)
--- NOTE | 2021-01-20 18:10 | NUR ---
Problems reprioritized. Patient report given, questions answered & plan of care reviewed with JASON Wilde.
--- NOTE | 2021-01-20 18:15 | NUR ---
Patient in room PCU 3011A. I have received report from JASON Marie and had the opportunity to ask questions and assume patient care.
[2021-01-21] VITALS (8 sets, daily range): BP systolic 127–185; BP diastolic 62–93
--- NOTE | 2021-01-21 06:43 | NUR ---
Problems reprioritized. Patient report given, questions answered & plan of care reviewed with JASON Alonzo.
--- NOTE | 2021-01-21 06:51 | NUR ---
Patient in room PCU 3011. I have received report from Chani GOMEZ and had the opportunity to ask questions and assume patient care.
[2021-01-21] MEDS: ipratropium 0.5 MG/2.5ML nebule IH SCH ×3 (07:33→20:43)
[2021-01-21] MEDS: levalbuterol 0.63mg/3ml nebule IH SCH ×3 (07:33→20:43)
[2021-01-21] MEDS: budesonide 0.5mg/2ml UD nebule IH SCH ×2 (07:33→20:43)
[2021-01-21 07:49] LABS: MAGNESIUM 2.8 MG/DL (1.5-2.4)
[2021-01-21] MEDS: mineral oil/petrolatum, white cream 113gm jar TP SCH ×2 (08:00→19:29)
[2021-01-21] MEDS: docusate sod 100mg capsule PO SCH ×2 (08:00→19:29)
[2021-01-21 08:02] LABS: BASOPHILS % (AUTO) 0.2 % (0-1); EOSINOPHILS % (AUTO) 0 % (0-6); HEMATOCRIT 40.7 % (35.0-45.0); HEMOGLOBIN 12.9 g/dl (12.0-16.0); LYMPHOCYTES # (AUTO) 0.5 X10'3 (1.1-4.8); MEAN CORPUSCULAR HEMOGLOBIN 26.8 PG (27.0-31.0); MEAN CORPUSCULAR HGB CONC 31.7 g/dL (33.0-36.5); MEAN CORPUSCULAR VOLUME 84.6 FL (78-98); MEAN PLATELET VOLUME 7.9 FL (7.4-10.4); MONOCYTES # (AUTO) 0.4 X10'3 (0-0.9); MONOCYTES % (AUTO) 4.5 % (2-12); NEUTROPHILS # (AUTO) 7.6 X10'3 (1.8-7.7); NEUTROPHILS % (AUTO) 89.3 % (42-75); PLATELET COUNT 338 X10'3 (140-440); RED BLOOD COUNT 4.82 X10'6 (4.20-5.60); WHITE BLOOD COUNT 8.5 X10'3 (4.5-11.0)
[2021-01-21] MEDS: lactobacillus rhamnosus 10,000 MMU CELLS/CAPSULE PO SCH ×2 (08:12→19:29)
[2021-01-21] MEDS: diltiazem CD 180mg cap (once-daily) PO SCH (08:12)
[2021-01-21] MEDS: CefTRIAXone/D5W-Rocephin 1gm 50 ML IV SCH (08:12)
[2021-01-21] MEDS: apixaban 5mg tablet PO SCH ×2 (08:12→19:29)
[2021-01-21] MEDS: ferrous sulfate 325mg tablet PO SCH (08:13)
[2021-01-21] MEDS: lisinopril 10 MG tablet PO SCH (08:13)
[2021-01-21] MEDS: methylPREDNISolone sod succ/PF 40mg inj. IV SCH ×2 (08:13→19:28)
[2021-01-21] MEDS: fluconazole 100mg tablet PO SCH (08:14)
[2021-01-21 08:55] LABS: ANISOCYTOSIS 2+; PLATELET ESTIMATE NORMAL; TOTAL CELLS COUNTED 100
[2021-01-21 08:56] LABS: TOXIC VACUOLATION FEW
[2021-01-21 08:57] LABS: LARGE PLATELETS FEW
[2021-01-21 12:31] LABS: ALANINE AMINOTRANSFERASE 43 U/L (12-78); ALBUMIN 2.7 G/DL (3.4-5.0); ALBUMIN/GLOBULIN RATIO 0.7 (1.1-1.5); ALKALINE PHOSPHATASE 98 IU/L (46-116); ANION GAP 5 (8-16); ASPARTATE AMINO TRANSFERASE 12 U/L (10-37); BILIRUBIN,TOTAL 0.1 MG/DL (0.1-1.0); BLOOD UREA NITROGEN 46 MG/DL (7-18); BUN/CREATININE RATIO 46.9 (6.6-38.0); CHLORIDE 105 MMOL/L (99-107); CREATININE 0.98 MG/DL (0.40-0.90); GLUCOSE 107 MG/DL (70-104); POTASSIUM 5.2 MMOL/L (3.5-5.1); SODIUM 142 MMOL/L (135-145); TOTAL CARBON DIOXIDE 31.7 MMOL/L (24-32); TOTAL PROTEIN 6.5 G/DL (6.4-8.2); eGFR 57 ML/MIN
--- NOTE | 2021-01-21 15:44 | NUR ---
PAGER ID: [phone] MESSAGE: re: [phone], Lena Pretty pt's K+ is 5.2 today. Thank you, Cheri DANIELLE [phone]
--- NOTE | 2021-01-21 18:35 | NUR ---
Problems reprioritized. Patient report given, questions answered & plan of care reviewed with Riana GOMEZ.
--- NOTE | 2021-01-21 18:41 | NUR ---
Patient in room PCU 3011. I have received report from Cheri GOMEZ and had the opportunity to ask questions and assume patient care.
[2021-01-21] MEDS: K and/or MAG REPLACEMENT MC SCH ×2 (19:27→19:28)
[2021-01-22 02:00] VITALS: BP 152/90
--- NOTE | 2021-01-22 06:23 | NUR ---
Problems reprioritized. Patient report given, questions answered & plan of care reviewed with Karolina GOMEZ.
[2021-01-22 07:00] VITALS: BP 111/61
[2021-01-22 07:26] LABS: ALANINE AMINOTRANSFERASE 34 U/L (12-78); ALBUMIN 2.6 G/DL (3.4-5.0); ALBUMIN/GLOBULIN RATIO 0.7 (1.1-1.5); ALKALINE PHOSPHATASE 91 IU/L (46-116); ANION GAP 6 (8-16); ASPARTATE AMINO TRANSFERASE 9 U/L (10-37); BILIRUBIN,TOTAL 0.2 MG/DL (0.1-1.0); BLOOD UREA NITROGEN 43 MG/DL (7-18); BUN/CREATININE RATIO 39.8 (6.6-38.0); CALCIUM 8.9 MG/DL (8.5-10.1); CHLORIDE 104 MMOL/L (99-107); CREATININE 1.08 MG/DL (0.40-0.90); GLUCOSE 116 MG/DL (70-104); MAGNESIUM 2.7 MG/DL (1.5-2.4); POTASSIUM 5.2 MMOL/L (3.5-5.1); SODIUM 141 MMOL/L (135-145); TOTAL CARBON DIOXIDE 30.7 MMOL/L (24-32); TOTAL PROTEIN 6.3 G/DL (6.4-8.2); eGFR 51 ML/MIN
[2021-01-22] MEDS: ferrous sulfate 325mg tablet PO SCH (07:54)
[2021-01-22] MEDS: diltiazem CD 180mg cap (once-daily) PO SCH (07:54)
[2021-01-22] MEDS: docusate sod 100mg capsule PO SCH (07:54)
[2021-01-22] MEDS: lactobacillus rhamnosus 10,000 MMU CELLS/CAPSULE PO SCH (07:54)
[2021-01-22 07:55] VITALS: BP_SYST 111
[2021-01-22] MEDS: fluconazole 100mg tablet PO SCH (07:55)
[2021-01-22] MEDS: apixaban 5mg tablet PO SCH (07:55)
[2021-01-22] MEDS: lisinopril 10 MG tablet PO SCH (07:55)
[2021-01-22] MEDS: methylPREDNISolone sod succ/PF 40mg inj. IV SCH (07:56)
[2021-01-22] MEDS: CefTRIAXone/D5W-Rocephin 1gm 50 ML IV SCH (07:56)
[2021-01-22] MEDS: mineral oil/petrolatum, white cream 113gm jar TP SCH (07:57)
[2021-01-22] MEDS: K and/or MAG REPLACEMENT MC SCH (08:00)
[2021-01-22] MEDS: ipratropium 0.5 MG/2.5ML nebule IH SCH (08:12)
[2021-01-22] MEDS: levalbuterol 0.63mg/3ml nebule IH SCH (08:12)
[2021-01-22] MEDS: budesonide 0.5mg/2ml UD nebule IH SCH (08:12)
[2021-01-22] MEDS ORDERED: LACT1CAP26 PO (13:29)
[2021-01-22] MEDS ORDERED: PRED10TA23 PO (13:29)
[2021-01-22] MEDS ORDERED: CEFD300C3 PO (13:29)
--- NOTE | 2021-01-22 15:05 | NUR ---
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 She will [facility] on way home. She is aware of her appt at the wound care clinic for thursday and her high school social science teacher was also relayed the message. IV taken out, all belongings taken from room. Home health to follow.
== END 2021-01-22 15:00 | disposition home health service (06) | DRG 133 ==
LOC: ER 11:01 → UNDOADMIN 15:56 → ED HOLD 15:56 → PCU 3S 01-16 12:23
PROVIDERS: ADMIT Family Medicine; ATTEND Family Medicine
PROC: 5A09357 Assistance with Respiratory Ventilation, Less than 24 Consecutive Hours, Continuous Positive Airway Pressure (ICD-10-PCS; principal; 2021-01-15)
DX: J96.01 Acute respiratory failure with hypoxia (principal); E87.2 Acidosis; E87.0 Hyperosmolality and hypernatremia; F20.9 Schizophrenia, unspecified; L03.115 Cellulitis of right lower limb; J44.1 Chronic obstructive pulmonary disease with (acute) exacerbation; I49.5 Sick sinus syndrome; N18.30 Chronic kidney disease, stage 3 unspecified; B35.1 Tinea unguium; J96.02 Acute respiratory failure with hypercapnia; B35.3 Tinea pedis; F43.23 Adjustment disorder with mixed anxiety and depressed mood; L03.116 Cellulitis of left lower limb; E87.6 Hypokalemia; F32.9 Major depressive disorder, single episode, unspecified; Z60.2 Problems related to living alone; I87.2 Venous insufficiency (chronic) (peripheral); Z20.822 Contact with and (suspected) exposure to COVID-19; F17.210 Nicotine dependence, cigarettes, uncomplicated; I12.9 Hypertensive chronic kidney disease with stage 1 through stage 4 chronic kidney disease, or unspecified chronic kidney disease; Z86.73 Personal history of transient ischemic attack (TIA), and cerebral infarction without residual deficits; Z91.19 Patient's noncompliance with other medical treatment and regimen; Z88.8 Allergy status to other drugs, medicaments and biological substances; Z79.899 Other long term (current) drug therapy; Z71.6 Tobacco abuse counseling
CPT/HCPCS: 36415; 36600; 71045; 76937; 80053; 82803; 83735; 83880; 84484; 85007; 85008; 85018; 85025; 87081; 87635; 93005; 94640; 94660; 94760; 96374; 97110; 97116; 97161; 97530; 99285; G0378; J0360; J0696; J1450; J1644; J2920; J2930; J3480; J7030; J7614; J7626

== ENCOUNTER 2021-01-29 19:35 | Emergency (ER) | payer MEDICAID ==
[~2021-01-29] VITALS: Ht 165.1 cm; Wt 100.0 kg
[~2021-01-29 19:35] MED LIST changes: -ALB0.5UD IH; -BACI1CAP6 PO; +CEFD300C3 PO; +LACT1CAP26 PO; -MULT-382 PO
[2021-01-29 23:09] VITALS: BP 134/67
== END 2021-01-29 22:59 | disposition home or self-care (01) ==
LOC: ER 19:35
DX: S09.90XA Unspecified injury of head, initial encounter (principal); M79.604 Pain in right leg; M79.605 Pain in left leg; J44.9 Chronic obstructive pulmonary disease, unspecified; F20.9 Schizophrenia, unspecified; Z60.2 Problems related to living alone; Z86.73 Personal history of transient ischemic attack (TIA), and cerebral infarction without residual deficits; Z88.8 Allergy status to other drugs, medicaments and biological substances; Z79.899 Other long term (current) drug therapy; W06.XXXA Fall from bed, initial encounter; Y93.89 Activity, other specified; Y92.89 Other specified places as the place of occurrence of the external cause; Y99.8 Other external cause status
CPT/HCPCS: 82948; 99284

== ENCOUNTER 2021-02-02 19:20 | Emergency (ER) | payer MEDICAID ==
[~2021-02-02] VITALS: Ht 165.1 cm; Wt 100.0 kg
[2021-02-02 22:26] VITALS: BP 132/62
== END 2021-02-03 00:10 | disposition home or self-care (01) ==
LOC: ER 19:22
DX: M54.9 Dorsalgia, unspecified (principal); G89.29 Other chronic pain; M79.661 Pain in right lower leg; M79.662 Pain in left lower leg; J44.9 Chronic obstructive pulmonary disease, unspecified; F20.9 Schizophrenia, unspecified; Z60.2 Problems related to living alone; Z88.8 Allergy status to other drugs, medicaments and biological substances; Z79.899 Other long term (current) drug therapy; W18.39XA Other fall on same level, initial encounter; Y93.89 Activity, other specified; Y92.89 Other specified places as the place of occurrence of the external cause; Y99.8 Other external cause status
CPT/HCPCS: 99284

== ENCOUNTER 2021-02-25 21:24 | Inpatient (IN) | payer MEDICAID ==
[~2021-02-25] VITALS: Ht 165.1 cm; Wt 100.0 kg
[~2021-02-25 21:24] MED LIST changes: -ATRIN PO; -CEFD300C3 PO; +IPRA3AMP9 NEB; -LACT1CAP26 PO; -PRED10TA23 PO; +PRED20TA PO
[2021-02-25] MEDS ORDERED: normal saline 1000ml 1,000 ML IV ONE (22:50)
[2021-02-25 23:29] LABS: BASOPHILS % (AUTO) 0.3 % (0-1); EOSINOPHILS % (AUTO) 0 % (0-6); HEMATOCRIT 29.7 % (35.0-45.0); HEMOGLOBIN 9.2 g/dl (12.0-16.0); LYMPHOCYTES # (AUTO) 0.8 X10'3 (1.1-4.8); LYMPHOCYTES % (AUTO) 5.1 % (21-51); MEAN CORPUSCULAR HEMOGLOBIN 26.9 PG (27.0-31.0); MEAN CORPUSCULAR HGB CONC 30.8 g/dL (33.0-36.5); MEAN CORPUSCULAR VOLUME 87.2 FL (78-98); MEAN PLATELET VOLUME 8.9 FL (7.4-10.4); MONOCYTES # (AUTO) 1.8 X10'3 (0-0.9); MONOCYTES % (AUTO) 11.8 % (2-12); NEUTROPHILS # (AUTO) 12.8 X10'3 (1.8-7.7); NEUTROPHILS % (AUTO) 82.8 % (42-75); PLATELET COUNT 249 X10'3 (140-440); RED BLOOD COUNT 3.41 X10'6 (4.20-5.60); RED CELL DISTRIBUTION WIDTH 18.3 % (11.5-14.5); WHITE BLOOD COUNT 15.5 X10'3 (4.5-11.0)
[2021-02-25 23:50] LABS: ALANINE AMINOTRANSFERASE 27 U/L (12-78); ALBUMIN 2.1 G/DL (3.4-5.0); ALBUMIN/GLOBULIN RATIO 0.5 (1.1-1.5); ALKALINE PHOSPHATASE 156 IU/L (46-116); ANION GAP 8 (8-16); ASPARTATE AMINO TRANSFERASE 16 U/L (10-37); BILIRUBIN,TOTAL 0.7 MG/DL (0.1-1.0); BLOOD UREA NITROGEN 17 MG/DL (7-18); BUN/CREATININE RATIO 12.4 (6.6-38.0); CALCIUM 8.2 MG/DL (8.5-10.1); CHLORIDE 105 MMOL/L (99-107); CREATININE 1.37 MG/DL (0.40-0.90); GLUCOSE 121 MG/DL (70-104); SODIUM 140 MMOL/L (135-145); TOTAL CARBON DIOXIDE 26.6 MMOL/L (24-32); TOTAL PROTEIN 6.6 G/DL (6.4-8.2); eGFR 39 ML/MIN
[2021-02-25 23:53] LABS: TROPONIN I < 0.04 NG/ML (0.0-0.05)
[2021-02-26] MEDS ORDERED: HYDROcodone/acetaminophen 5mg/325mg tablet PO ONE (00:15)
[2021-02-26] MEDS ORDERED: iohexol 350MG/ML 100ml bottle IV ONE (00:20)
[2021-02-26] MEDS ORDERED: heparin 25,000 UNIT/250ml bag 250 ML IV SCH (01:45)
[2021-02-26] MEDS ORDERED: heparin 10,000 units/1 ML INJ IV PRN (01:45)
[2021-02-26] MEDS ORDERED: heparin 10,000 units/1 ML INJ IV ONE (01:45)
[2021-02-26] MEDS ORDERED: acetaminophen 325mg tablet PO PRN ×2 (01:55)
[2021-02-26] MEDS ORDERED: normal saline 1000ml 1,000 ML IV ONE (01:55)
[2021-02-26] MEDS ORDERED: mag hydrox/Alum hydrox/simeth 30ml oral suspension PO PRN (01:55)
[2021-02-26] MEDS ORDERED: ondansetron/PF 4mg/2ml inj IV PRN (01:55)
[2021-02-26] MEDS ORDERED: magnesium hydroxide 30ml (MOM) UD suspension PO PRN (01:55)
[2021-02-26] MEDS ORDERED: morphine 2 MG/ML inj. syringe IV PRN ×2 (01:55)
--- NOTE | 2021-02-26 03:00 | NUR ---
PT REFUSING STRIGHT CATH " NO , I AN NOT HAVING A CATH "
[2021-02-26] MEDS ORDERED: LISI20TA28 PO (03:51)
[2021-02-26] MEDS ORDERED: PANT40TA54 PO (03:51)
[2021-02-26] MEDS ORDERED: CARCD120C PO (03:51)
[2021-02-26] MEDS ORDERED: NYST60PO2 TOP (03:51)
[2021-02-26] MEDS ORDERED: FURO20TA4 PO (03:51)
[2021-02-26] MEDS ORDERED: ATR0.5NEB NEB (03:51)
[2021-02-26] MEDS ORDERED: vancomycin/NS 1 GM ADD-VANTAGE 250 ML IV SCH ×2 (04:05→05:45)
[2021-02-26] MEDS: apixaban 5mg tablet PO SCH ×3 (04:39→20:28)
--- NOTE | 2021-02-26 05:00 | NUR ---
PHONED PHARMACY ABOUT VANCO TIMED DOSING IT IS A Q 12 HR ABX PHARMACY TO RETIME VANCO FOR 06 AND 1800
--- NOTE | 2021-02-26 06:59 | NUR ---
Patient in room ED 1. I have received report from JASON Arredondo and had the opportunity to ask questions and assume patient care. Waiting for patient arrival to room 9499D.
[2021-02-26 07:30] VITALS: BP 141/68
[2021-02-26] MEDS: ferrous sulfate 325mg tablet PO SCH (07:48)
[2021-02-26] MEDS: furosemide 20MG tablet PO SCH (07:48)
[2021-02-26] MEDS: lisinopril 20mg tablet PO SCH (07:48)
[2021-02-26] MEDS: HYDROcodone/acetaminophen 10/325mg tab PO PRN ×3 (07:48→20:27)
[2021-02-26] MEDS: pantoprazole 40mg Tablet.DR PO SCH (07:48)
--- NOTE | 2021-02-26 07:59 | NUR ---
Received patient to room 4017 via gurney accompanied by JASON Arredondo on 4LNC. Patient able to transfer self to bed. Patient is alert and oriented c/o pain 8/10 in bilateral legs. Saturated brief removed and gown changed, 2 RN Skin check done. Oriented patient to room and call light. Call light placed within patient's reach and bed is low and locked. [place] administered as ordered.
[2021-02-26] MEDS ORDERED: lisinopril 10 MG tablet PO SCH (08:00)
[2021-02-26] MEDS: vancomycin/NS 1 GM ADD-VANTAGE 250 ML IV SCH ×2 (08:19→20:26)
[2021-02-26] MEDS: budesonide 0.5mg/2ml UD nebule IH SCH ×2 (09:15→19:36)
[2021-02-26 10:00] VITALS: BP 118/72
--- NOTE | 2021-02-26 12:36 | NUR ---
PAGER ID: [phone] MESSAGE: [id number]- Lena Pretty- 2nd positive culture. Right arm drawn 02/25 11.72hours gram neg rods. On [place] 0720 (113 character message out of a maximum of 240)
[2021-02-26] MEDS: CefTRIAXone/D5W-Rocephin 1gm 50 ML IV SCH (13:19)
[2021-02-26 18:00] VITALS: BP 141/72
--- NOTE | 2021-02-26 18:10 | NUR ---
Problems reprioritized. Patient report given, questions answered & plan of care reviewed with JASON Doe.
[2021-02-26] MEDS: ipratropium 0.5 MG/2.5ML nebule IH PRN (20:06)
[2021-02-26] MEDS: docusate sod 100mg capsule PO SCH (20:26)
[2021-02-26] MEDS: lactobacillus rhamnosus 10,000 MMU CELLS/CAPSULE PO SCH (20:27)
[2021-02-26 22:00] VITALS: BP 131/58
[2021-02-27 06:00] VITALS: BP 135/70
--- NOTE | 2021-02-27 06:09 | NUR ---
Problems reprioritized. Patient report given, questions answered & plan of care reviewed with JASON FLEMING.
[2021-02-27 06:16] LABS: BASOPHILS % (AUTO) 0.1 % (0-1); EOSINOPHILS % (AUTO) 0.1 % (0-6); HEMATOCRIT 30.3 % (35.0-45.0); HEMOGLOBIN 9.2 g/dl (12.0-16.0); LYMPHOCYTES # (AUTO) 0.7 X10'3 (1.1-4.8); LYMPHOCYTES % (AUTO) 4.4 % (21-51); MEAN CORPUSCULAR HEMOGLOBIN 27.4 PG (27.0-31.0); MEAN CORPUSCULAR HGB CONC 30.5 g/dL (33.0-36.5); MEAN CORPUSCULAR VOLUME 89.8 FL (78-98); MEAN PLATELET VOLUME 8.9 FL (7.4-10.4); MONOCYTES # (AUTO) 1.6 X10'3 (0-0.9); MONOCYTES % (AUTO) 10.3 % (2-12); NEUTROPHILS # (AUTO) 13.2 X10'3 (1.8-7.7); NEUTROPHILS % (AUTO) 85.1 % (42-75); PLATELET COUNT 228 X10'3 (140-440); RED BLOOD COUNT 3.38 X10'6 (4.20-5.60); RED CELL DISTRIBUTION WIDTH 18.1 % (11.5-14.5); WHITE BLOOD COUNT 15.5 X10'3 (4.5-11.0)
--- NOTE | 2021-02-27 06:37 | NUR ---
Patient in room ORTHO 4017. I have received report from JASON ANAYA and had the opportunity to ask questions and assume patient care.
[2021-02-27 06:48] LABS: ALBUMIN 1.8 G/DL (3.4-5.0); ANION GAP 11 (8-16); BLOOD UREA NITROGEN 20 MG/DL (7-18); BUN/CREATININE RATIO 13.9 (6.6-38.0); CALCIUM 8.6 MG/DL (8.5-10.1); CHLORIDE 108 MMOL/L (99-107); CREATININE 1.44 MG/DL (0.40-0.90); GLUCOSE 100 MG/DL (70-104); POTASSIUM 4.4 MMOL/L (3.5-5.1); SODIUM 146 MMOL/L (135-145); eGFR 36 ML/MIN
[2021-02-27] MEDS: CefTRIAXone/D5W-Rocephin 1gm 50 ML IV SCH (07:19)
[2021-02-27] MEDS: apixaban 5mg tablet PO SCH ×2 (07:19→23:31)
[2021-02-27] MEDS: ferrous sulfate 325mg tablet PO SCH (07:19)
[2021-02-27] MEDS: lactobacillus rhamnosus 10,000 MMU CELLS/CAPSULE PO SCH ×2 (07:19→23:31)
[2021-02-27] MEDS: furosemide 20MG tablet PO SCH (07:20)
[2021-02-27] MEDS: lisinopril 20mg tablet PO SCH (07:20)
[2021-02-27] MEDS: pantoprazole 40mg Tablet.DR PO SCH (07:20)
[2021-02-27] MEDS: diltiazem CD 180mg cap (once-daily) PO SCH (07:22)
[2021-02-27] MEDS: budesonide 0.5mg/2ml UD nebule IH SCH ×2 (07:49→19:44)
[2021-02-27] MEDS: ipratropium 0.5 MG/2.5ML nebule IH PRN ×2 (07:49→19:44)
[2021-02-27] MEDS: vancomycin/NS 1 GM ADD-VANTAGE 250 ML IV SCH ×2 (09:45→23:31)
[2021-02-27 10:00] VITALS: BP 123/58
[2021-02-27] MEDS: sodium chloride 0.45% 1,000 ML IV SCH ×2 (15:09→22:25)
[2021-02-27] MEDS: nystatin 15 GM powder TP SCH ×2 (15:09→23:31)
[2021-02-27] MEDS: mineral oil/petrolatum, white cream 113gm jar TP SCH ×2 (15:10→23:31)
[2021-02-27 17:57] VITALS: BP 95/49
--- NOTE | 2021-02-27 18:36 | NUR ---
Problems reprioritized. Patient report given, questions answered & plan of care reviewed with JASON HAINES.
--- NOTE | 2021-02-27 18:45 | NUR ---
Patient in room ORTHO 4017. I have received report from Nikki GOMEZ and had the opportunity to ask questions and assume patient care.
[2021-02-27] MEDS ORDERED: VANCOMYCIN LEVEL IV ONE (20:30)
[2021-02-27 23:29] VITALS: BP 109/56
[2021-02-27] MEDS: docusate sod 100mg capsule PO SCH (23:30)
[2021-02-28] VITALS (7 sets, daily range): BP systolic 110–164; BP diastolic 55–94
[2021-02-28] MEDS: HYDROcodone/acetaminophen 10/325mg tab PO PRN (00:03)
--- NOTE | 2021-02-28 06:30 | NUR ---
Patient in room ORTHO 4017. I have received report from sd and had the opportunity to ask questions and assume patient care.
--- NOTE | 2021-02-28 06:42 | NUR ---
Problems reprioritized. Patient report given, questions answered & plan of care reviewed with Fara GOMEZ.
[2021-02-28 07:00] LABS: BASOPHILS % (AUTO) 0.1 % (0-1); EOSINOPHILS # (AUTO) 0.1 X10'3 (0-0.9); EOSINOPHILS % (AUTO) 0.7 % (0-6); HEMATOCRIT 31.1 % (35.0-45.0); HEMOGLOBIN 9.5 g/dl (12.0-16.0); LYMPHOCYTES # (AUTO) 1.2 X10'3 (1.1-4.8); LYMPHOCYTES % (AUTO) 11.8 % (21-51); MEAN CORPUSCULAR HEMOGLOBIN 27.8 PG (27.0-31.0); MEAN CORPUSCULAR HGB CONC 30.7 g/dL (33.0-36.5); MEAN CORPUSCULAR VOLUME 90.7 FL (78-98); MEAN PLATELET VOLUME 8.8 FL (7.4-10.4); MONOCYTES # (AUTO) 1.3 X10'3 (0-0.9); MONOCYTES % (AUTO) 13.7 % (2-12); NEUTROPHILS # (AUTO) 7.2 X10'3 (1.8-7.7); NEUTROPHILS % (AUTO) 73.7 % (42-75); PLATELET COUNT 234 X10'3 (140-440); RED BLOOD COUNT 3.43 X10'6 (4.20-5.60); RED CELL DISTRIBUTION WIDTH 18.5 % (11.5-14.5); WHITE BLOOD COUNT 9.8 X10'3 (4.5-11.0)
[2021-02-28 07:06] LABS: ALBUMIN 1.8 G/DL (3.4-5.0); ANION GAP 9 (8-16); BLOOD UREA NITROGEN 23 MG/DL (7-18); BUN/CREATININE RATIO 15.5 (6.6-38.0); CALCIUM 8.6 MG/DL (8.5-10.1); CHLORIDE 108 MMOL/L (99-107); CREATININE 1.48 MG/DL (0.40-0.90); GLUCOSE 87 MG/DL (70-104); POTASSIUM 4.2 MMOL/L (3.5-5.1); SODIUM 143 MMOL/L (135-145); TOTAL CARBON DIOXIDE 26.4 MMOL/L (24-32); eGFR 35 ML/MIN
[2021-02-28] MEDS: CefTRIAXone/D5W-Rocephin 1gm 50 ML IV SCH (07:38)
[2021-02-28] MEDS: lactobacillus rhamnosus 10,000 MMU CELLS/CAPSULE PO SCH ×2 (07:42→21:29)
[2021-02-28] MEDS: pantoprazole 40mg Tablet.DR PO SCH (07:42)
[2021-02-28] MEDS: diltiazem CD 180mg cap (once-daily) PO SCH (07:42)
[2021-02-28] MEDS: lisinopril 20mg tablet PO SCH (07:42)
[2021-02-28] MEDS: mineral oil/petrolatum, white cream 113gm jar TP SCH ×2 (07:43→21:30)
[2021-02-28] MEDS: ferrous sulfate 325mg tablet PO SCH (07:43)
[2021-02-28] MEDS: apixaban 5mg tablet PO SCH ×2 (07:43→21:29)
[2021-02-28] MEDS: nystatin 15 GM powder TP SCH ×2 (07:44→21:29)
[2021-02-28] MEDS: budesonide 0.5mg/2ml UD nebule IH SCH ×2 (07:47→20:04)
[2021-02-28] MEDS: vancomycin/NS 1 GM ADD-VANTAGE 250 ML IV SCH ×2 (09:00→21:29)
--- NOTE | 2021-02-28 18:40 | NUR ---
Patient in room ORTHO 4017. I have received report from Fara GOMEZ and had the opportunity to ask questions and assume patient care.
--- NOTE | 2021-02-28 18:40 | NUR ---
Problems reprioritized. Patient report given, questions answered & plan of care reviewed with .conrado beaver
[2021-02-28] MEDS: docusate sod 100mg capsule PO SCH (21:29)
[2021-03-01] MEDS: HYDROcodone/acetaminophen 5mg/325mg tablet PO PRN (04:58)
[2021-03-01 06:00] VITALS: BP 178/86
[2021-03-01 06:06] LABS: BASOPHILS % (AUTO) 0.3 % (0-1); EOSINOPHILS # (AUTO) 0.1 X10'3 (0-0.9); EOSINOPHILS % (AUTO) 1.6 % (0-6); HEMATOCRIT 28.1 % (35.0-45.0); HEMOGLOBIN 8.8 g/dl (12.0-16.0); LYMPHOCYTES # (AUTO) 0.7 X10'3 (1.1-4.8); LYMPHOCYTES % (AUTO) 10.1 % (21-51); MEAN CORPUSCULAR HEMOGLOBIN 27.5 PG (27.0-31.0); MEAN CORPUSCULAR HGB CONC 31.4 g/dL (33.0-36.5); MEAN CORPUSCULAR VOLUME 87.7 FL (78-98); MEAN PLATELET VOLUME 8.7 FL (7.4-10.4); MONOCYTES # (AUTO) 0.6 X10'3 (0-0.9); MONOCYTES % (AUTO) 9.1 % (2-12); NEUTROPHILS # (AUTO) 5.6 X10'3 (1.8-7.7); NEUTROPHILS % (AUTO) 78.9 % (42-75); PLATELET COUNT 265 X10'3 (140-440); RED CELL DISTRIBUTION WIDTH 17.8 % (11.5-14.5); WHITE BLOOD COUNT 7.1 X10'3 (4.5-11.0)
[2021-03-01 06:21] LABS: ALBUMIN 1.7 G/DL (3.4-5.0); ANION GAP 7 (8-16); BLOOD UREA NITROGEN 17 MG/DL (7-18); BUN/CREATININE RATIO 13.5 (6.6-38.0); CALCIUM 8.6 MG/DL (8.5-10.1); CHLORIDE 111 MMOL/L (99-107); CREATININE 1.26 MG/DL (0.40-0.90); GLUCOSE 102 MG/DL (70-104); POTASSIUM 3.7 MMOL/L (3.5-5.1); SODIUM 147 MMOL/L (135-145); eGFR 42 ML/MIN
--- NOTE | 2021-03-01 06:29 | NUR ---
Problems reprioritized. Patient report given, questions answered & plan of care reviewed with Nathalie GOMEZ.
[2021-03-01] MEDS: budesonide 0.5mg/2ml UD nebule IH SCH ×2 (07:16→19:52)
[2021-03-01] MEDS: ipratropium 0.5 MG/2.5ML nebule IH PRN (07:16)
--- NOTE | 2021-03-01 07:24 | NUR ---
PAGED DR TAI RE: PAGER ID: [phone] MESSAGE: MELANIE MONCADA. + BLOOD CULTURES MDRO. VICTOR MANUEL MONTEJO [phone]
[2021-03-01] MEDS: lactobacillus rhamnosus 10,000 MMU CELLS/CAPSULE PO SCH ×2 (08:31→22:38)
[2021-03-01] MEDS: ferrous sulfate 325mg tablet PO SCH (08:31)
[2021-03-01] MEDS: diltiazem CD 180mg cap (once-daily) PO SCH (08:31)
[2021-03-01] MEDS: lisinopril 20mg tablet PO SCH (08:31)
[2021-03-01] MEDS: pantoprazole 40mg Tablet.DR PO SCH (08:31)
[2021-03-01] MEDS: apixaban 5mg tablet PO SCH ×2 (08:32→22:39)
[2021-03-01] MEDS: mineral oil/petrolatum, white cream 113gm jar TP SCH ×2 (08:32→20:00)
[2021-03-01] MEDS: nystatin 15 GM powder TP SCH ×2 (08:32→22:42)
[2021-03-01] MEDS: cefepime 1GM/NS ADD-VANTAGE 100 ML IV SCH ×2 (08:32→16:10)
[2021-03-01 10:00] VITALS: BP 186/86
[2021-03-01] MEDS: vancomycin/NS 1 GM ADD-VANTAGE 250 ML IV SCH ×2 (10:00→22:39)
[2021-03-01 15:15] VITALS: BP 158/85
[2021-03-01 18:00] VITALS: BP 149/85
--- NOTE | 2021-03-01 19:06 | NUR ---
Patient in room ORTHO 4017. I have received report from Nathalie GOMEZ and had the opportunity to ask questions and assume patient care.
[2021-03-01 22:00] VITALS: BP 149/76
[2021-03-01] MEDS: docusate sod 100mg capsule PO SCH (22:39)
[2021-03-01] MEDS: HYDROcodone/acetaminophen 10/325mg tab PO PRN (22:41)
[2021-03-02] MEDS: cefepime 1GM/NS ADD-VANTAGE 100 ML IV SCH ×2 (00:38→08:40)
[2021-03-02] MEDS: HYDROcodone/acetaminophen 5mg/325mg tablet PO PRN (03:24)
[2021-03-02 06:00] VITALS: BP 158/94
[2021-03-02 06:10] LABS: BASOPHILS % (AUTO) 0.3 % (0-1); EOSINOPHILS # (AUTO) 0.2 X10'3 (0-0.9); EOSINOPHILS % (AUTO) 2.4 % (0-6); HEMOGLOBIN 9.2 g/dl (12.0-16.0); LYMPHOCYTES # (AUTO) 0.8 X10'3 (1.1-4.8); LYMPHOCYTES % (AUTO) 11.8 % (21-51); MEAN CORPUSCULAR HEMOGLOBIN 27.2 PG (27.0-31.0); MEAN CORPUSCULAR HGB CONC 31.5 g/dL (33.0-36.5); MEAN CORPUSCULAR VOLUME 86.4 FL (78-98); MEAN PLATELET VOLUME 8.1 FL (7.4-10.4); MONOCYTES # (AUTO) 0.6 X10'3 (0-0.9); MONOCYTES % (AUTO) 9.4 % (2-12); NEUTROPHILS % (AUTO) 76.1 % (42-75); PLATELET COUNT 344 X10'3 (140-440); RED BLOOD COUNT 3.36 X10'6 (4.20-5.60); RED CELL DISTRIBUTION WIDTH 17.8 % (11.5-14.5); WHITE BLOOD COUNT 6.6 X10'3 (4.5-11.0)
--- NOTE | 2021-03-02 06:23 | NUR ---
Problems reprioritized. Patient report given, questions answered & plan of care reviewed with Nathalie GOMEZ.
[2021-03-02 06:24] LABS: ALBUMIN 1.7 G/DL (3.4-5.0); ANION GAP 6 (8-16); BLOOD UREA NITROGEN 15 MG/DL (7-18); BUN/CREATININE RATIO 13.8 (6.6-38.0); CALCIUM 8.7 MG/DL (8.5-10.1); CHLORIDE 111 MMOL/L (99-107); CREATININE 1.09 MG/DL (0.40-0.90); GLUCOSE 90 MG/DL (70-104); POTASSIUM 3.5 MMOL/L (3.5-5.1); SODIUM 149 MMOL/L (135-145); TOTAL CARBON DIOXIDE 31.6 MMOL/L (24-32); eGFR 50 ML/MIN
[2021-03-02] MEDS: budesonide 0.5mg/2ml UD nebule IH SCH (08:31)
[2021-03-02] MEDS: diltiazem CD 180mg cap (once-daily) PO SCH (08:39)
[2021-03-02] MEDS: lactobacillus rhamnosus 10,000 MMU CELLS/CAPSULE PO SCH (08:40)
[2021-03-02] MEDS: ferrous sulfate 325mg tablet PO SCH (08:40)
[2021-03-02] MEDS: nystatin 15 GM powder TP SCH (08:40)
[2021-03-02] MEDS: apixaban 5mg tablet PO SCH (08:40)
[2021-03-02] MEDS: pantoprazole 40mg Tablet.DR PO SCH (08:40)
[2021-03-02] MEDS: lisinopril 20mg tablet PO SCH (08:40)
[2021-03-02] MEDS: mineral oil/petrolatum, white cream 113gm jar TP SCH (08:41)
[2021-03-02 10:00] VITALS: BP 163/96
[2021-03-02] MEDS ORDERED: ondansetron 4mg rapidly disintigrating tab PO ONE (12:10)
--- NOTE | 2021-03-02 16:57 | NUR ---
PT LEFT AMA. PT EDUCATED AND GIVEN WARNING AND RISKS OF LEAVING AGAINST MEDICAL ADVICE, SHE IS NOT READY FOR DC HOME. MYSELF, , PHYSICAL THERAPY, HAVE ALL ADVISED PT THAT SHE SHOULD NOT LEAVE. HOWEVER, PT REFUSING CARE, REMOVED IV, STATES THAT SHE WANTS TO LEAVE AND GO HOME. PT LEFT IN TAXI.
[2021-03-04] MEDS ORDERED: apixaban 5mg tablet PO SCH (20:00)
== END 2021-03-02 16:05 | disposition left against medical advice (07) | DRG 720 ==
LOC: ER 21:24 → ED HOLD 02-26 01:53 → ORTHO 4S 02-26 07:25
PROVIDERS: ADMIT Internal Medicine; ATTEND Family Medicine
PROC: B2261ZZ Computerized Tomography (CT Scan) of Right and Left Heart using Low Osmolar Contrast (ICD-10-PCS; principal; 2021-02-26)
DX: A41.9 Sepsis, unspecified organism (principal); I26.99 Other pulmonary embolism without acute cor pulmonale; J96.00 Acute respiratory failure, unspecified whether with hypoxia or hypercapnia; E43 Unspecified severe protein-calorie malnutrition; J44.9 Chronic obstructive pulmonary disease, unspecified; N18.30 Chronic kidney disease, stage 3 unspecified; F20.9 Schizophrenia, unspecified; L03.115 Cellulitis of right lower limb; D64.9 Anemia, unspecified; F17.210 Nicotine dependence, cigarettes, uncomplicated; Z86.73 Personal history of transient ischemic attack (TIA), and cerebral infarction without residual deficits; R03.0 Elevated blood-pressure reading, without diagnosis of hypertension; Z86.14 Personal history of Methicillin resistant Staphylococcus aureus infection; Z88.8 Allergy status to other drugs, medicaments and biological substances; I87.2 Venous insufficiency (chronic) (peripheral); I49.5 Sick sinus syndrome; N17.9 Acute kidney failure, unspecified; L03.116 Cellulitis of left lower limb; G93.41 Metabolic encephalopathy; Z68.36 Body mass index [BMI] 36.0-36.9, adult
CPT/HCPCS: 36415; 71045; 71275; 80048; 80053; 80202; 83605; 83735; 83880; 84145; 84484; 85025; 85730; 87040; 87077; 87081; 87186; 93005; 93306; 94640; 94760; 97161; 97530; 99285; G0378; J0692; J0696; J2270; J3370; J7030; J7626; Q9967

== ENCOUNTER 2021-03-04 03:43 | Inpatient (IN) | payer MEDICAID ==
[~2021-03-04] VITALS: Ht 167.6 cm; Wt 102.6 kg
[2021-03-04] VITALS (12 sets, daily range): BP systolic 121–143; BP diastolic 55–75
[~2021-03-04 03:43] MED LIST changes: +ATR0.5NEB NEB; +CARCD120C PO; +FURO20TA4 PO; -IPRA3AMP9 NEB; +LISI20TA28 PO; +NYST60PO2 TOP; +PANT40TA54 PO; -PRED20TA PO
[2021-03-04] MEDS ORDERED: normal saline 1000ml 1,000 ML IV ONE (03:55)
[2021-03-04] MEDS ORDERED: BUDE10.26 IH (04:01)
[2021-03-04 04:29] LABS: MONOCYTES # (AUTO) 1.2 X10'3 (0-0.9)
[2021-03-04] MEDS ORDERED: morphine 10mg/ml inj. IV ONE (04:30)
[2021-03-04 04:31] LABS: BASOPHILS # (AUTO) 0.2 X10'3 (0-0.2); BASOPHILS % (AUTO) 1.1 % (0-1); EOSINOPHILS % (AUTO) 0.1 % (0-6); LYMPHOCYTES # (AUTO) 1.8 X10'3 (1.1-4.8); MEAN CORPUSCULAR HEMOGLOBIN 27.4 PG (27.0-31.0); MEAN CORPUSCULAR HGB CONC 31.3 g/dL (33.0-36.5); MEAN CORPUSCULAR VOLUME 87.6 FL (78-98); MEAN PLATELET VOLUME 8.7 FL (7.4-10.4); NEUTROPHILS # (AUTO) 13.5 X10'3 (1.8-7.7); NEUTROPHILS % (AUTO) 80.8 % (42-75); PLATELET COUNT 423 X10'3 (140-440); RED CELL DISTRIBUTION WIDTH 19.1 % (11.5-14.5); WHITE BLOOD COUNT 16.7 X10'3 (4.5-11.0)
[2021-03-04 04:42] LABS: ALANINE AMINOTRANSFERASE 14 U/L (12-78); ALBUMIN/GLOBULIN RATIO 0.4 (1.1-1.5); ALKALINE PHOSPHATASE 123 IU/L (46-116); ANION GAP 11 (8-16); ASPARTATE AMINO TRANSFERASE 13 U/L (10-37); BILIRUBIN,TOTAL 0.4 MG/DL (0.1-1.0); BLOOD UREA NITROGEN 31 MG/DL (7-18); BUN/CREATININE RATIO 9.5 (6.6-38.0); CALCIUM 8.5 MG/DL (8.5-10.1); CHLORIDE 107 MMOL/L (99-107); CREATININE 3.25 MG/DL (0.40-0.90); GLUCOSE 125 MG/DL (70-104); POTASSIUM 4.1 MMOL/L (3.5-5.1); SODIUM 146 MMOL/L (135-145); TOTAL CARBON DIOXIDE 28.5 MMOL/L (24-32); eGFR 14 ML/MIN
[2021-03-04 04:45] LABS: HEMATOCRIT 19.3 % (35.0-45.0)
[2021-03-04] MEDS ORDERED: iohexol 350MG/ML 100ml bottle IV ONE ×2 (04:51→04:52)
[2021-03-04] MEDS ORDERED: cefepime 2g/NS 100ml ADVANTAGE 100 ML IV ONE (04:55)
[2021-03-04 05:15] LABS: TROPONIN I < 0.04 NG/ML (0.0-0.05)
[2021-03-04 05:23] LABS: ANISOCYTOSIS 2+; PLATELET ESTIMATE NORMAL; POLYCHROMASIA 1+
[2021-03-04 05:24] LABS: LARGE PLATELETS FEW; POIKILOCYTOSIS 1+; STOMATOCYTES FEW
[2021-03-04] MEDS ORDERED: metroNIDAZOLE-Flagyl 500mg/NS 100 ML IV STA (05:27)
[2021-03-04] MEDS ORDERED: VANCOMYCIN 1,500MG inj. 1,500 MG in normal saline 500ml IV soln 500 ML IV ONE (05:31)
[2021-03-04] MEDS ORDERED: VANCOMYCIN 1,500MG inj. 1,500 MG in normal saline 500ml IV soln 300 ML IV ONE (05:32)
[2021-03-04] MEDS ORDERED: ondansetron/PF 4mg/2ml inj IV PRN ×2 (06:35→12:45)
[2021-03-04] MEDS ORDERED: morphine 2 MG/ML inj. syringe IV PRN (06:35)
[2021-03-04] MEDS ORDERED: acetaminophen 325mg tablet PO PRN ×4 (06:35→12:45)
[2021-03-04] MEDS ORDERED: morphine 4 MG/ML inj SYRINge IV PRN ×2 (06:35→12:45)
[2021-03-04] MEDS ORDERED: normal saline 1000ml 1,000 ML IV SCH (06:35)
[2021-03-04] MEDS ORDERED: magnesium hydroxide 30ml (MOM) UD suspension PO PRN (06:35)
--- NOTE | 2021-03-04 07:50 | NUR ---
vancomycin dose verified with pharmacy.
--- NOTE | 2021-03-04 07:51 | NUR ---
Unable to get second PIV, blood currently tranfusing, will page PICC RN for second line.
[2021-03-04 08:01] LABS: CLARITY,URINE SLIGHTLY CLOUDY (Clear); COLOR,URINE YELLOW (Yellow); GLUCOSE, URINE NEGATIVE (Neg); KETONES,URINE TRACE mg/dl (Neg); LEUKOCYTE ESTERASE ,URINE TRACE (Neg); NITRITES, URINE NEGATIVE (Neg); OCCULT BLOOD,URINE LARGE (Neg); PROTEIN,URINE >=300 mg/dl (Neg); UROBILINOGEN,URINE 0.2 E.U/dL (0.2-1.0)
[2021-03-04 08:04] LABS: UA COLLECTION TYPE FOLEY CATH
[2021-03-04 08:10] LABS: RBC,URINE TNTC /HPF (0-2); WBC,URINE 30-50 /HPF (0-4)
[2021-03-04 08:11] LABS: AMORPHOUS URATES 3+; BACTERIA,URINE 1+ /HPF (Neg); SQUAMOUS EPITHELIAL CELL,UR FEW /LPF (FEW)
--- NOTE | 2021-03-04 09:24 | NUR ---
RT RESPONDED TO PAGE FOR BIPAP IN ER. RT PLACED PATIENT ON BIPAP 07/02 25%. PATIENT SHOWING NO SIGNS OF SOB OR DISTRESS. RT WILL RETURN FOR NEXT BIPAP CHECK AT 1100. ABG WAS NOT DONE, BEING THAT THERE WAS NO ORDER PLACED. Addendum: 03/04/21 at 0959 by Zehra Hankins RT Amended: Links added.
[2021-03-04] MEDS ORDERED: PANT40TA54 PO (10:03)
[2021-03-04] MEDS ORDERED: LISI20TA28 PO (10:03)
[2021-03-04] MEDS ORDERED: DOCU-148 PO (10:03)
[2021-03-04] MEDS ORDERED: CARCD120C PO (10:03)
[2021-03-04] MEDS ORDERED: FERR325T7 PO (10:03)
[2021-03-04] MEDS ORDERED: FURO20TA4 PO (10:03)
[2021-03-04] MEDS ORDERED: NYST60PO2 TOP (10:03)
--- NOTE | 2021-03-04 10:37 | NUR ---
Unable to obtain secondary line, blood infusing through PIV, will give antibiotic when access is available.
--- NOTE | 2021-03-04 10:47 | NUR ---
Dr. Harding at bedside. Updated on pt condition. Difficult to obtain access on patient. Orders to place PICC line.
[2021-03-04 12:23] LABS: CLARITY,URINE CLOUDY (Clear); COLOR,URINE YELLOW (Yellow); GLUCOSE, URINE NEGATIVE (Neg); KETONES,URINE TRACE mg/dl (Neg); LEUKOCYTE ESTERASE ,URINE NEGATIVE (Neg); NITRITES, URINE NEGATIVE (Neg); OCCULT BLOOD,URINE LARGE (Neg); PROTEIN,URINE >=300 mg/dl (Neg); UROBILINOGEN,URINE 0.2 E.U/dL (0.2-1.0)
[2021-03-04 12:29] LABS: UA COLLECTION TYPE STRAIGHT CATH
[2021-03-04 12:30] LABS: MUCUS STRANDS FEW /LPF (Neg); SQUAMOUS EPITHELIAL CELL,UR MODERATE /LPF (FEW); TRANSITIONAL EPI CELLS,URINE MODERATE /HPF
--- NOTE | 2021-03-04 12:30 | NUR ---
PICC nurse paged for new line.
[2021-03-04 12:31] LABS: RBC,URINE 50-100 /HPF (0-2); WBC,URINE 20-30 /HPF (0-4)
[2021-03-04 12:33] LABS: AMORPHOUS URATES 3+; BACTERIA,URINE 1+ /HPF (Neg)
[2021-03-04] MEDS ORDERED: potassium Cl 40MEQ/250ML bag 270 ML IV PRN ×2 (12:45)
[2021-03-04] MEDS ORDERED: potassium Cl 20 mEq SR tablet PO PRN ×2 (12:45)
[2021-03-04] MEDS ORDERED: potassium Cl 40MEQ/1/2NS 520ml 520 ML IV PRN ×2 (12:45)
[2021-03-04] MEDS ORDERED: LIDOcaine 2% 10ml TOPICAL JELLY (Urojet) TP ONE (12:45)
[2021-03-04 13:08] LABS: UA EOSINOPHILS NO EOS /HPF
[2021-03-04 14:04] LABS: MEAN CORPUSCULAR HEMOGLOBIN 28.3 PG (27.0-31.0); MEAN CORPUSCULAR HGB CONC 31.7 g/dL (33.0-36.5); MEAN CORPUSCULAR VOLUME 89.3 FL (78-98); MEAN PLATELET VOLUME 8.3 FL (7.4-10.4); PLATELET COUNT 385 X10'3 (140-440); RED BLOOD COUNT 2.27 X10'6 (4.20-5.60); RED CELL DISTRIBUTION WIDTH 17.5 % (11.5-14.5); WHITE BLOOD COUNT 14.3 X10'3 (4.5-11.0)
[2021-03-04 14:08] LABS: HEMATOCRIT 20.3 % (35.0-45.0); HEMOGLOBIN 6.4 g/dl (12.0-16.0)
--- NOTE | 2021-03-04 14:11 | NUR ---
Hg 6.4, hct 20.3 after receiving [address] Harding updated, orders to give 1 unit PRBC.
--- NOTE | 2021-03-04 14:42 | NUR ---
PICC RN at bedside
--- NOTE | 2021-03-04 16:11 | NUR ---
Received patient from Emergency Room at 1600. Pt admitted to room 2042. Pt placed on bedside monitor. MRSA swab completed. 2RN skin check completed. Pt instructed on use of call hamm. Initial assessment completed. safety check completed.
--- NOTE | 2021-03-04 18:18 | NUR ---
Problems reprioritized. Patient report given, questions answered & plan of care reviewed with Mary GOMEZ.
[2021-03-04] MEDS: normal saline 1000ml 1,000 ML IV SCH ×2 (19:08→20:45)
[2021-03-04] MEDS: docusate sod 100mg capsule PO SCH (20:00)
[2021-03-04 21:06] LABS: MEAN CORPUSCULAR HEMOGLOBIN 26.5 PG (27.0-31.0); MEAN CORPUSCULAR HGB CONC 31.5 g/dL (33.0-36.5); MEAN PLATELET VOLUME 8.1 FL (7.4-10.4); PLATELET COUNT 364 X10'3 (140-440); RED BLOOD COUNT 2.56 X10'6 (4.20-5.60); WHITE BLOOD COUNT 12.1 X10'3 (4.5-11.0)
[2021-03-04 21:21] LABS: HEMATOCRIT 21.5 % (35.0-45.0); HEMOGLOBIN 6.8 g/dl (12.0-16.0)
--- NOTE | 2021-03-04 21:25 | NUR ---
Patient HH came back 6.8 and 21.5. MD Penny notified, states to continue q6h HH labs and notify him with next results. No other orders received at this time. Will continue to monitor patient.
[2021-03-05] VITALS (27 sets, daily range): BP systolic 113–190; BP diastolic 48–94
[2021-03-05 01:37] LABS: ALANINE AMINOTRANSFERASE 8 U/L (12-78); ALBUMIN 1.6 G/DL (3.4-5.0); ALBUMIN/GLOBULIN RATIO 0.4 (1.1-1.5); ALKALINE PHOSPHATASE 98 IU/L (46-116); ANION GAP 9 (8-16); ASPARTATE AMINO TRANSFERASE 12 U/L (10-37); BILIRUBIN,TOTAL 0.7 MG/DL (0.1-1.0); BLOOD UREA NITROGEN 39 MG/DL (7-18); BUN/CREATININE RATIO 13.4 (6.6-38.0); CALCIUM 7.6 MG/DL (8.5-10.1); CHLORIDE 111 MMOL/L (99-107); GLUCOSE 90 MG/DL (70-104); MAGNESIUM 2.1 MG/DL (1.5-2.4); PHOSPHORUS 4.5 MG/DL (2.3-4.5); POTASSIUM 4.1 MMOL/L (3.5-5.1); SODIUM 148 MMOL/L (135-145); TOTAL CARBON DIOXIDE 27.7 MMOL/L (24-32); TOTAL PROTEIN 5.9 G/DL (6.4-8.2); eGFR 16 ML/MIN
[2021-03-05 02:12] LABS: BASOPHILS % (AUTO) 0.2 % (0-1); EOSINOPHILS # (AUTO) 0.1 X10'3 (0-0.9); EOSINOPHILS % (AUTO) 0.8 % (0-6); HEMATOCRIT 22.7 % (35.0-45.0); HEMOGLOBIN 7.1 g/dl (12.0-16.0); LYMPHOCYTES % (AUTO) 8.7 % (21-51); MEAN CORPUSCULAR HEMOGLOBIN 26.3 PG (27.0-31.0); MEAN CORPUSCULAR HGB CONC 31.1 g/dL (33.0-36.5); MEAN CORPUSCULAR VOLUME 84.6 FL (78-98); MEAN PLATELET VOLUME 8.3 FL (7.4-10.4); MONOCYTES % (AUTO) 8.1 % (2-12); NEUTROPHILS # (AUTO) 9.8 X10'3 (1.8-7.7); NEUTROPHILS % (AUTO) 82.2 % (42-75); PLATELET COUNT 377 X10'3 (140-440); RED BLOOD COUNT 2.69 X10'6 (4.20-5.60); RED CELL DISTRIBUTION WIDTH 23.3 % (11.5-14.5)
[2021-03-05] MEDS: normal saline 1000ml 1,000 ML IV SCH (03:00)
[2021-03-05 04:01] LABS: ANISOCYTOSIS 3+; PLATELET ESTIMATE NORMAL
[2021-03-05 04:02] LABS: POLYCHROMASIA FEW; SCHISTOCYTES FEW
[2021-03-05] MEDS: dextrose 5%-1/2 normal saline 1,000 ML IV SCH ×3 (04:50→21:02)
--- NOTE | 2021-03-05 06:25 | NUR ---
Problems reprioritized. Patient report given, questions answered & plan of care reviewed with Fanny GOMEZ.
[2021-03-05 06:28] LABS: MEAN CORPUSCULAR HEMOGLOBIN 26.9 PG (27.0-31.0); MEAN CORPUSCULAR HGB CONC 31.8 g/dL (33.0-36.5); MEAN CORPUSCULAR VOLUME 84.6 FL (78-98); MEAN PLATELET VOLUME 7.9 FL (7.4-10.4); PLATELET COUNT 387 X10'3 (140-440); RED BLOOD COUNT 2.54 X10'6 (4.20-5.60); RED CELL DISTRIBUTION WIDTH 23.6 % (11.5-14.5); WHITE BLOOD COUNT 12.9 X10'3 (4.5-11.0)
[2021-03-05 06:31] LABS: HEMATOCRIT 21.5 % (35.0-45.0); HEMOGLOBIN 6.8 g/dl (12.0-16.0)
--- NOTE | 2021-03-05 06:48 | NUR ---
H/H 6.8/21.5. Started 1 unit PRBC transfusion per MD order.
--- NOTE | 2021-03-05 07:12 | NUR ---
Patient in room ICU 2042. I have received report from Juan Luis GOMEZ and had the opportunity to ask questions and assume patient care. Addendum: 03/05/21 at 0712 by Fanny Martin RN Amended: Links added.
[2021-03-05] MEDS: docusate sod 100mg capsule PO SCH ×2 (07:23→20:22)
[2021-03-05 12:04] LABS: HEMATOCRIT 24.3 % (35.0-45.0); HEMOGLOBIN 7.9 g/dl (12.0-16.0); MEAN CORPUSCULAR HEMOGLOBIN 27.6 PG (27.0-31.0); MEAN CORPUSCULAR HGB CONC 32.7 g/dL (33.0-36.5); MEAN CORPUSCULAR VOLUME 84.4 FL (78-98); PLATELET COUNT 394 X10'3 (140-440); RED BLOOD COUNT 2.88 X10'6 (4.20-5.60); RED CELL DISTRIBUTION WIDTH 22.1 % (11.5-14.5); WHITE BLOOD COUNT 12.7 X10'3 (4.5-11.0)
[2021-03-05] MEDS: mineral oil/petrolatum, white cream 113gm jar TP SCH ×4 (12:15→20:22)
--- NOTE | 2021-03-05 13:56 | NUR ---
Venous doppler bilat. LEs being done now. NM lung scan ordered. Tech here to evaluate pt.'s tolerance of lying flat since she has to lie flat for 45 minutes for test.
--- NOTE | 2021-03-05 14:49 | NUR ---
Pt. to nec. med. via RN and nuc. med tech. FABIANO RN/oracle fusion consultant met pt. in Nuc. Med dept. and will remain with pt. for test.
--- NOTE | 2021-03-05 14:54 | NUR ---
Awaiting Dr. Harding to address med rec. Addendum: 03/05/21 at 1454 by Fanny Martin RN Amended: Links added.
--- NOTE | 2021-03-05 15:46 | NUR ---
Back from nuc med at approx. 1515.
[2021-03-05 17:56] LABS: HEMATOCRIT 23.5 % (35.0-45.0); HEMOGLOBIN 7.3 g/dl (12.0-16.0); MEAN CORPUSCULAR HEMOGLOBIN 26.6 PG (27.0-31.0); MEAN CORPUSCULAR HGB CONC 31.1 g/dL (33.0-36.5); MEAN CORPUSCULAR VOLUME 85.6 FL (78-98); MEAN PLATELET VOLUME 7.8 FL (7.4-10.4); PLATELET COUNT 379 X10'3 (140-440); RED BLOOD COUNT 2.75 X10'6 (4.20-5.60); RED CELL DISTRIBUTION WIDTH 22.4 % (11.5-14.5); WHITE BLOOD COUNT 11.1 X10'3 (4.5-11.0)
--- NOTE | 2021-03-05 18:15 | NUR ---
Patient in room ICU 2042. I have received report from Fanny GOMEZ and had the opportunity to ask questions and assume patient care.
--- NOTE | 2021-03-05 18:16 | NUR ---
Problems reprioritized. Patient report given, questions answered & plan of care reviewed with Juan Luis GOMEZ.
--- NOTE | 2021-03-05 19:30 | NUR ---
Patient maintaining BP SBP>170. Notified tele-MD that patient's med rec has not been done and she has not taken BP meds in over 24 hours. Order received to restart PO cardizem on med rec. Will give patient med as ordered.
[2021-03-05] MEDS: diltiazem CD 120mg capsule (once-daily) PO SCH (20:22)
[2021-03-06] VITALS (24 sets, daily range): BP systolic 143–194; BP diastolic 64–96
[2021-03-06 00:33] LABS: BASOPHILS % (AUTO) 0.1 % (0-1); EOSINOPHILS # (AUTO) 0.2 X10'3 (0-0.9); EOSINOPHILS % (AUTO) 2.1 % (0-6); HEMATOCRIT 23.9 % (35.0-45.0); HEMOGLOBIN 7.7 g/dl (12.0-16.0); LYMPHOCYTES # (AUTO) 1.3 X10'3 (1.1-4.8); MEAN CORPUSCULAR HEMOGLOBIN 27.2 PG (27.0-31.0); MEAN CORPUSCULAR HGB CONC 32.2 g/dL (33.0-36.5); MEAN CORPUSCULAR VOLUME 84.5 FL (78-98); MEAN PLATELET VOLUME 7.9 FL (7.4-10.4); MONOCYTES # (AUTO) 0.8 X10'3 (0-0.9); MONOCYTES % (AUTO) 8.4 % (2-12); NEUTROPHILS # (AUTO) 7.7 X10'3 (1.8-7.7); NEUTROPHILS % (AUTO) 76.4 % (42-75); PLATELET COUNT 429 X10'3 (140-440); RED BLOOD COUNT 2.83 X10'6 (4.20-5.60); RED CELL DISTRIBUTION WIDTH 21.5 % (11.5-14.5); WHITE BLOOD COUNT 10.1 X10'3 (4.5-11.0)
[2021-03-06 00:44] LABS: ALANINE AMINOTRANSFERASE 9 U/L (12-78); ALBUMIN 1.5 G/DL (3.4-5.0); ALBUMIN/GLOBULIN RATIO 0.3 (1.1-1.5); ALKALINE PHOSPHATASE 98 IU/L (46-116); ANION GAP 9 (8-16); ASPARTATE AMINO TRANSFERASE 12 U/L (10-37); BILIRUBIN,TOTAL 0.4 MG/DL (0.1-1.0); BLOOD UREA NITROGEN 35 MG/DL (7-18); BUN/CREATININE RATIO 15.7 (6.6-38.0); CALCIUM 7.6 MG/DL (8.5-10.1); CHLORIDE 109 MMOL/L (99-107); CREATININE 2.23 MG/DL (0.40-0.90); GLUCOSE 108 MG/DL (70-104); PHOSPHORUS 3.2 MG/DL (2.3-4.5); POTASSIUM 3.8 MMOL/L (3.5-5.1); SODIUM 144 MMOL/L (135-145); TOTAL CARBON DIOXIDE 26.3 MMOL/L (24-32); TOTAL PROTEIN 5.9 G/DL (6.4-8.2); eGFR 22 ML/MIN
[2021-03-06] MEDS: dextrose 5%-1/2 normal saline 1,000 ML IV SCH (04:49)
[2021-03-06 04:54] LABS: ANISOCYTOSIS 3+; ELLIPTOCYTES FEW; PLATELET ESTIMATE NORMAL; POLYCHROMASIA 1+; TARGET CELLS FEW
[2021-03-06 06:10] LABS: HEMATOCRIT 24.2 % (35.0-45.0); HEMOGLOBIN 7.8 g/dl (12.0-16.0); MEAN CORPUSCULAR HEMOGLOBIN 27.3 PG (27.0-31.0); MEAN CORPUSCULAR HGB CONC 32.3 g/dL (33.0-36.5); MEAN CORPUSCULAR VOLUME 84.4 FL (78-98); MEAN PLATELET VOLUME 7.8 FL (7.4-10.4); PLATELET COUNT 448 X10'3 (140-440); RED BLOOD COUNT 2.87 X10'6 (4.20-5.60); RED CELL DISTRIBUTION WIDTH 21.7 % (11.5-14.5); WHITE BLOOD COUNT 9.7 X10'3 (4.5-11.0)
--- NOTE | 2021-03-06 06:23 | NUR ---
Problems reprioritized. Patient report given, questions answered & plan of care reviewed with Nikki GOMEZ.
--- NOTE | 2021-03-06 06:53 | NUR ---
Patient in room ICU 2042. I have received report from Juan Luis GOMEZ and had the opportunity to ask questions and assume patient care.
[2021-03-06] MEDS: docusate sod 100mg capsule PO SCH ×2 (07:32→20:00)
[2021-03-06] MEDS: diltiazem CD 120mg capsule (once-daily) PO SCH (07:32)
[2021-03-06] MEDS: mineral oil/petrolatum, white cream 113gm jar TP SCH ×2 (07:33→20:12)
[2021-03-06] MEDS: normal saline 1000ml 1,000 ML IV SCH (10:20)
--- NOTE | 2021-03-06 10:51 | NUR ---
During rounds, informed Dr. Harding of BP has been high with systolic in 180s. Informed MD that lasix and linsinopril were not restarted from med rec. MD aware. changed IV fluids to NS at 50.
--- NOTE | 2021-03-06 11:03 | NUR ---
Informed Dr. Harding of high BP of 194/95. stated he would input orders.
[2021-03-06] MEDS ORDERED: ipratropium 0.5 MG/2.5ML nebule NEB PRN (11:10)
[2021-03-06] MEDS ORDERED: diltiazem CD 120mg capsule (once-daily) PO SCH (11:10)
[2021-03-06] MEDS ORDERED: budesonide 0.5mg/2ml UD nebule IH SCH (11:23)
[2021-03-06] MEDS ORDERED: diltiazem CD 120mg capsule (once-daily) PO ONE (11:40)
--- NOTE | 2021-03-06 11:40 | NUR ---
Initial: Pt admit DX PATRICIA, renal hematoma, SOB w/ pulmonary embolus, anemia, and COPD per MD note. PO 25% initial carb controlled meals now advanced to heart healthy diet w/ 50% breakfast intake this AM improving. RD recommends ensure enlive TIDWM for additional protein/kcals; notified. Receiving routine colace pending first BM this admit. Previously receiving D5/NS at 125ml/hr additional 501kcals/day now to change to NS at 50ml/hr per broiler manager. Will continue to monitor for PO/ONS acceptance and additional protein needs this admit. Rec: 1. continue heart healthy diet; encourage PO 2. ensure enlive TIDMW; pending MD verification in EMR 3. routine bowel care 4. weekly wts Addendum: 03/06/21 at [address] Amended: Links added.
[2021-03-06] MEDS: ferrous sulfate 325mg tablet PO SCH (11:49)
--- NOTE | 2021-03-06 18:25 | NUR ---
Problems reprioritized. Patient report given, questions answered & plan of care reviewed with Myra GOMEZ.
[2021-03-06] MEDS: nystatin 15 GM powder TP SCH (20:11)
[2021-03-06] MEDS: morphine 2 MG/ML inj. syringe IV PRN (20:15)
[2021-03-06] MEDS ORDERED: docusate sod 100mg capsule PO SCH (21:00)
[2021-03-06] MEDS: budesonide 0.5mg/2ml UD nebule IH SCH (21:40)
[2021-03-07] VITALS (19 sets, daily range): BP systolic 137–180; BP diastolic 54–83
--- NOTE | 2021-03-07 03:05 | NUR ---
Pt removed bipap and refusing to wear at this time stating that she is "awake". Educated pt and will reevaluate.
[2021-03-07] MEDS: normal saline 1000ml 1,000 ML IV SCH ×2 (05:38→08:42)
[2021-03-07 05:54] LABS: BASOPHILS % (AUTO) 0.1 % (0-1); EOSINOPHILS # (AUTO) 0.2 X10'3 (0-0.9); EOSINOPHILS % (AUTO) 1.7 % (0-6); HEMATOCRIT 26.1 % (35.0-45.0); HEMOGLOBIN 8.4 g/dl (12.0-16.0); LYMPHOCYTES % (AUTO) 10.9 % (21-51); MEAN CORPUSCULAR HEMOGLOBIN 27.4 PG (27.0-31.0); MEAN CORPUSCULAR HGB CONC 32.1 g/dL (33.0-36.5); MEAN CORPUSCULAR VOLUME 85.4 FL (78-98); MEAN PLATELET VOLUME 7.9 FL (7.4-10.4); MONOCYTES # (AUTO) 0.8 X10'3 (0-0.9); MONOCYTES % (AUTO) 8.6 % (2-12); NEUTROPHILS # (AUTO) 7.2 X10'3 (1.8-7.7); NEUTROPHILS % (AUTO) 78.7 % (42-75); PLATELET COUNT 485 X10'3 (140-440); RED BLOOD COUNT 3.06 X10'6 (4.20-5.60); RED CELL DISTRIBUTION WIDTH 21.2 % (11.5-14.5); WHITE BLOOD COUNT 9.2 X10'3 (4.5-11.0)
[2021-03-07 05:58] LABS: ALANINE AMINOTRANSFERASE 13 U/L (12-78); ALBUMIN 1.6 G/DL (3.4-5.0); ALBUMIN/GLOBULIN RATIO 0.3 (1.1-1.5); ALKALINE PHOSPHATASE 104 IU/L (46-116); ANION GAP 4 (8-16); ASPARTATE AMINO TRANSFERASE 8 U/L (10-37); BILIRUBIN,TOTAL 0.3 MG/DL (0.1-1.0); BLOOD UREA NITROGEN 26 MG/DL (7-18); BUN/CREATININE RATIO 14.4 (6.6-38.0); CALCIUM 7.9 MG/DL (8.5-10.1); CHLORIDE 111 MMOL/L (99-107); GLUCOSE 92 MG/DL (70-104); MAGNESIUM 1.9 MG/DL (1.5-2.4); PHOSPHORUS 3.4 MG/DL (2.3-4.5); POTASSIUM 4.2 MMOL/L (3.5-5.1); SODIUM 143 MMOL/L (135-145); TOTAL CARBON DIOXIDE 27.7 MMOL/L (24-32); TOTAL PROTEIN 6.4 G/DL (6.4-8.2); eGFR 28 ML/MIN
--- NOTE | 2021-03-07 06:32 | NUR ---
Patient in room ICU 2042. I have received report from Myra GOMEZ and had the opportunity to ask questions and assume patient care.
[2021-03-07] MEDS: mineral oil/petrolatum, white cream 113gm jar TP SCH ×2 (08:32→20:13)
[2021-03-07] MEDS: ferrous sulfate 325mg tablet PO SCH (08:32)
[2021-03-07] MEDS: nystatin 15 GM powder TP SCH ×2 (08:32→20:13)
[2021-03-07] MEDS: diltiazem CD 120mg capsule (once-daily) PO SCH (08:32)
[2021-03-07] MEDS: docusate sod 100mg capsule PO SCH ×2 (08:32→20:13)
[2021-03-07] MEDS: budesonide 0.5mg/2ml UD nebule IH SCH ×2 (08:42→21:00)
[2021-03-07 09:25] LABS: PLATELET ESTIMATE INCREASED
[2021-03-07 09:26] LABS: ANISOCYTOSIS 3+
[2021-03-07 09:27] LABS: LARGE PLATELETS FEW; POLYCHROMASIA FEW
--- NOTE | 2021-03-07 16:17 | NUR ---
Patient report given with Sheree GOMEZ. Patient moving to room 318.
--- NOTE | 2021-03-07 16:53 | NUR ---
PT ARRIVED TO UNIT FROM ICU AND PLACED INTO ROOM. PT IN CHAIR AT BEDSIDE. CALL LIGHT WITHIN REACH. VSS. PT ORIENTED TO ROOM. WILL CONTINUE TO MONITOR
[2021-03-08 02:00] VITALS: BP 163/83
[2021-03-08 02:46] LABS: BASOPHILS % (AUTO) 0.1 % (0-1); EOSINOPHILS # (AUTO) 0.2 X10'3 (0-0.9); EOSINOPHILS % (AUTO) 1.9 % (0-6); HEMATOCRIT 26.1 % (35.0-45.0); HEMOGLOBIN 8.4 g/dl (12.0-16.0); LYMPHOCYTES # (AUTO) 0.9 X10'3 (1.1-4.8); LYMPHOCYTES % (AUTO) 9.5 % (21-51); MEAN CORPUSCULAR HEMOGLOBIN 27.5 PG (27.0-31.0); MEAN CORPUSCULAR HGB CONC 32.3 g/dL (33.0-36.5); MEAN PLATELET VOLUME 7.5 FL (7.4-10.4); MONOCYTES # (AUTO) 0.8 X10'3 (0-0.9); MONOCYTES % (AUTO) 8.8 % (2-12); NEUTROPHILS # (AUTO) 7.6 X10'3 (1.8-7.7); NEUTROPHILS % (AUTO) 79.7 % (42-75); PLATELET COUNT 500 X10'3 (140-440); RED BLOOD COUNT 3.07 X10'6 (4.20-5.60); RED CELL DISTRIBUTION WIDTH 20.9 % (11.5-14.5); WHITE BLOOD COUNT 9.5 X10'3 (4.5-11.0)
[2021-03-08 02:49] LABS: ALANINE AMINOTRANSFERASE 9 U/L (12-78); ALBUMIN 1.7 G/DL (3.4-5.0); ALBUMIN/GLOBULIN RATIO 0.3 (1.1-1.5); ALKALINE PHOSPHATASE 104 IU/L (46-116); ANION GAP 4 (8-16); ASPARTATE AMINO TRANSFERASE 13 U/L (10-37); BILIRUBIN,TOTAL 0.4 MG/DL (0.1-1.0); BLOOD UREA NITROGEN 23 MG/DL (7-18); BUN/CREATININE RATIO 14.7 (6.6-38.0); CALCIUM 8.4 MG/DL (8.5-10.1); CHLORIDE 112 MMOL/L (99-107); CREATININE 1.56 MG/DL (0.40-0.90); GLUCOSE 101 MG/DL (70-104); MAGNESIUM 1.8 MG/DL (1.5-2.4); PHOSPHORUS 3.2 MG/DL (2.3-4.5); POTASSIUM 4.6 MMOL/L (3.5-5.1); SODIUM 145 MMOL/L (135-145); TOTAL CARBON DIOXIDE 29.1 MMOL/L (24-32); TOTAL PROTEIN 6.6 G/DL (6.4-8.2); eGFR 33 ML/MIN
[2021-03-08] MEDS: ipratropium 0.5 MG/2.5ML nebule NEB PRN ×3 (03:56→19:53)
[2021-03-08 04:43] LABS: ANISOCYTOSIS 3+; ELLIPTOCYTES FEW; PLATELET ESTIMATE INCREASED; POIKILOCYTOSIS FEW; POLYCHROMASIA FEW
--- NOTE | 2021-03-08 06:34 | NUR ---
Problems reprioritized. Patient report given, questions answered & plan of care reviewed with Karlee SIMENTAL RN.
--- NOTE | 2021-03-08 06:45 | NUR ---
Patient in room MED 318. I have received report from David GOMEZ and had the opportunity to ask questions and assume patient care.
--- NOTE | 2021-03-08 06:50 | NUR ---
Patient in room MED 318. I have received report from JASON Ching and had the opportunity to ask questions and assume patient care.
[2021-03-08 07:00] VITALS: BP 179/72
[2021-03-08] MEDS: budesonide 0.5mg/2ml UD nebule IH SCH ×2 (08:23→19:53)
[2021-03-08] MEDS: diltiazem CD 120mg capsule (once-daily) PO SCH (08:41)
[2021-03-08] MEDS: docusate sod 100mg capsule PO SCH ×2 (08:41→20:00)
[2021-03-08] MEDS: nystatin 15 GM powder TP SCH ×2 (08:42→20:32)
[2021-03-08] MEDS: ferrous sulfate 325mg tablet PO SCH (08:42)
[2021-03-08] MEDS: mineral oil/petrolatum, white cream 113gm jar TP SCH ×2 (08:43→20:32)
[2021-03-08 11:00] VITALS: BP 175/76
[2021-03-08 15:00] VITALS: BP 148/66
--- NOTE | 2021-03-08 16:23 | NUR ---
Patient in room MED 318. I have received report from JASON SIMENTAL and had the opportunity to ask questions and assume patient care.
[2021-03-08 18:00] VITALS: BP 159/72
--- NOTE | 2021-03-08 18:35 | NUR ---
Problems reprioritized. Patient report given, questions answered & plan of care reviewed with JASON ORDOÑEZ.
--- NOTE | 2021-03-08 18:38 | NUR ---
Patient in room MED 318. I have received report from Michelle/Riana-JASON and had the opportunity to ask questions and assume patient care.
[2021-03-08 22:00] VITALS: BP 181/87
[2021-03-08] MEDS: normal saline 1000ml 1,000 ML IV SCH (22:15)
[2021-03-09] VITALS (9 sets, daily range): BP systolic 148–198; BP diastolic 68–96
[2021-03-09 04:16] LABS: BASOPHILS % (AUTO) 0.2 % (0-1); EOSINOPHILS # (AUTO) 0.1 X10'3 (0-0.9); EOSINOPHILS % (AUTO) 1.5 % (0-6); LYMPHOCYTES % (AUTO) 10.7 % (21-51); MEAN CORPUSCULAR HEMOGLOBIN 27.3 PG (27.0-31.0); MEAN CORPUSCULAR HGB CONC 31.9 g/dL (33.0-36.5); MEAN CORPUSCULAR VOLUME 85.6 FL (78-98); MEAN PLATELET VOLUME 7.6 FL (7.4-10.4); MONOCYTES # (AUTO) 0.9 X10'3 (0-0.9); MONOCYTES % (AUTO) 9.5 % (2-12); NEUTROPHILS # (AUTO) 7.6 X10'3 (1.8-7.7); NEUTROPHILS % (AUTO) 78.1 % (42-75); PLATELET COUNT 482 X10'3 (140-440); RED BLOOD COUNT 2.92 X10'6 (4.20-5.60); RED CELL DISTRIBUTION WIDTH 20.6 % (11.5-14.5); WHITE BLOOD COUNT 9.8 X10'3 (4.5-11.0)
[2021-03-09 04:25] LABS: ALANINE AMINOTRANSFERASE 10 U/L (12-78); ALBUMIN 1.7 G/DL (3.4-5.0); ALBUMIN/GLOBULIN RATIO 0.4 (1.1-1.5); ALKALINE PHOSPHATASE 99 IU/L (46-116); ANION GAP 2 (8-16); ASPARTATE AMINO TRANSFERASE 8 U/L (10-37); BILIRUBIN,TOTAL 0.3 MG/DL (0.1-1.0); BLOOD UREA NITROGEN 20 MG/DL (7-18); BUN/CREATININE RATIO 12.9 (6.6-38.0); CALCIUM 8.1 MG/DL (8.5-10.1); CHLORIDE 112 MMOL/L (99-107); CREATININE 1.55 MG/DL (0.40-0.90); GLUCOSE 97 MG/DL (70-104); MAGNESIUM 1.7 MG/DL (1.5-2.4); PHOSPHORUS 2.6 MG/DL (2.3-4.5); POTASSIUM 4.3 MMOL/L (3.5-5.1); SODIUM 144 MMOL/L (135-145); TOTAL CARBON DIOXIDE 30.3 MMOL/L (24-32); TOTAL PROTEIN 6.4 G/DL (6.4-8.2); eGFR 33 ML/MIN
--- NOTE | 2021-03-09 04:43 | NUR ---
Paged RT, pt looks flushed and says she is having a hard time breathing. doesnt want to go on bipap.
--- NOTE | 2021-03-09 04:50 | NUR ---
Rt arrived and evaluated pt, pt currently on bipap
--- NOTE | 2021-03-09 06:14 | NUR ---
Problems reprioritized. Patient report given, questions answered & plan of care reviewed with Michelle/Riana.
--- NOTE | 2021-03-09 06:35 | NUR ---
Patient in room MED 318. I have received report from JASON Branch and had the opportunity to ask questions and assume patient care.
--- NOTE | 2021-03-09 06:44 | NUR ---
Patient in room MED 318. I have received report from JASON ORDOÑEZ, and had the opportunity to ask questions and assume patient care.
[2021-03-09] MEDS: docusate sod 100mg capsule PO SCH ×2 (07:11→20:00)
[2021-03-09] MEDS: diltiazem CD 120mg capsule (once-daily) PO SCH (07:11)
[2021-03-09] MEDS: nystatin 15 GM powder TP SCH ×2 (07:12→20:04)
[2021-03-09] MEDS: ferrous sulfate 325mg tablet PO SCH (07:12)
[2021-03-09] MEDS: budesonide 0.5mg/2ml UD nebule IH SCH ×2 (07:47→20:50)
--- NOTE | 2021-03-09 12:13 | NUR ---
Reassessment: Patient's PO intake slowly improving, recently up to average 50% PO intake of meals with 50-75% PO intake at two most recent meals. ONS still pending MD verification in EMR. Pt historically eats well during admissions, hopeful for improvement in PO intake. No documented LBM since admit, pt receiving routine bowel care. Constipation likely contributing to poor PO intake. D/w dietary to send prunes and prune juice to further assist with bowel regularity. Will continue to follow closely and monitor need for further nutrition intervention. Rec: 1. continue heart healthy diet; encourage PO 2. ensure enlive TIDMW; pending MD verification in EMR 3. routine bowel care 4. weekly scaled wts Addendum: 03/09/21 at [address] Amended: Links added.
[2021-03-09] MEDS: normal saline 1000ml 1,000 ML IV SCH (13:20)
[2021-03-09] MEDS: mineral oil/petrolatum, white cream 113gm jar TP SCH ×2 (16:39→20:04)
[2021-03-09] MEDS ORDERED: labetalol 100mg tablet PO SCH (17:00)
--- NOTE | 2021-03-09 18:26 | NUR ---
Problems reprioritized. Patient report given, questions answered & plan of care reviewed with JASON Robbins.
--- NOTE | 2021-03-09 18:27 | NUR ---
[place] documentation: I have reviewed and agree with all interventions, assessments performed and documented by JASON Martinez.
[2021-03-09] MEDS: losartan 50mg tablet PO SCH (20:03)
[2021-03-09] MEDS: carVEDilol 3.125mg tablet PO SCH (20:04)
[2021-03-09] MEDS: flecainide 50mg tablet PO SCH (20:04)
[2021-03-10] VITALS (8 sets, daily range): BP systolic 150–187; BP diastolic 70–105
[2021-03-10] MEDS: hydrALAZINE 20mg/ml inj. IV PRN ×4 (02:01→22:39)
[2021-03-10] MEDS: ipratropium 0.5 MG/2.5ML nebule NEB PRN ×3 (03:28→19:55)
--- NOTE | 2021-03-10 06:08 | NUR ---
Problems reprioritized. Patient report given, questions answered & plan of care reviewed with Felicia GOMEZ.
[2021-03-10 06:46] LABS: ALBUMIN 1.7 G/DL (3.4-5.0); ALBUMIN/GLOBULIN RATIO 0.3 (1.1-1.5); ALKALINE PHOSPHATASE 100 IU/L (46-116); ANION GAP 5 (8-16); ASPARTATE AMINO TRANSFERASE 19 U/L (10-37); BILIRUBIN,TOTAL 0.6 MG/DL (0.1-1.0); BLOOD UREA NITROGEN 19 MG/DL (7-18); BUN/CREATININE RATIO 13.2 (6.6-38.0); CALCIUM 8.4 MG/DL (8.5-10.1); CHLORIDE 111 MMOL/L (99-107); CREATININE 1.44 MG/DL (0.40-0.90); GLUCOSE 86 MG/DL (70-104); MAGNESIUM 1.8 MG/DL (1.5-2.4); PHOSPHORUS 2.2 MG/DL (2.3-4.5); POTASSIUM 4.1 MMOL/L (3.5-5.1); SODIUM 144 MMOL/L (135-145); TOTAL PROTEIN 6.7 G/DL (6.4-8.2); eGFR 36 ML/MIN
[2021-03-10 06:48] LABS: ALANINE AMINOTRANSFERASE < 6 U/L (12-78)
--- NOTE | 2021-03-10 07:07 | NUR ---
Patient in room MED 318. I have received report from Itzel GOMEZ and had the opportunity to ask questions and assume patient care.
[2021-03-10 07:11] LABS: BASOPHILS % (AUTO) 0.3 % (0-1); EOSINOPHILS # (AUTO) 0.1 X10'3 (0-0.9); EOSINOPHILS % (AUTO) 1.2 % (0-6); HEMATOCRIT 26.4 % (35.0-45.0); HEMOGLOBIN 8.3 g/dl (12.0-16.0); LYMPHOCYTES % (AUTO) 8.4 % (21-51); MEAN CORPUSCULAR HEMOGLOBIN 26.6 PG (27.0-31.0); MEAN CORPUSCULAR HGB CONC 31.4 g/dL (33.0-36.5); MEAN CORPUSCULAR VOLUME 84.7 FL (78-98); MEAN PLATELET VOLUME 7.4 FL (7.4-10.4); MONOCYTES % (AUTO) 8.4 % (2-12); NEUTROPHILS # (AUTO) 9.5 X10'3 (1.8-7.7); NEUTROPHILS % (AUTO) 81.7 % (42-75); PLATELET COUNT 549 X10'3 (140-440); RED BLOOD COUNT 3.11 X10'6 (4.20-5.60); RED CELL DISTRIBUTION WIDTH 19.8 % (11.5-14.5); WHITE BLOOD COUNT 11.6 X10'3 (4.5-11.0)
--- NOTE | 2021-03-10 07:27 | NUR ---
Patient in room MED 318. I have received report from carlo GOMEZ and had the opportunity to ask questions and assume patient care.
[2021-03-10] MEDS: budesonide 0.5mg/2ml UD nebule IH SCH ×2 (07:48→19:55)
[2021-03-10 07:52] LABS: ROULEAUX 1+; TOTAL CELLS COUNTED 100
[2021-03-10 07:53] LABS: ANISOCYTOSIS 2+; HYPERSEGMENTED NEUTROPHILS FEW; HYPOCHROMASIA 1+; PLATELET ESTIMATE INCREASED; POLYCHROMASIA 1+; STOMATOCYTES 1+
[2021-03-10] MEDS: docusate sod 100mg capsule PO SCH ×3 (08:00→19:18)
[2021-03-10] MEDS: ferrous sulfate 325mg tablet PO SCH (08:18)
[2021-03-10] MEDS: flecainide 50mg tablet PO SCH ×2 (08:18→19:18)
[2021-03-10] MEDS: carVEDilol 3.125mg tablet PO SCH ×2 (08:18→19:18)
[2021-03-10] MEDS: losartan 50mg tablet PO SCH ×2 (08:19→19:19)
[2021-03-10] MEDS: mineral oil/petrolatum, white cream 113gm jar TP SCH ×2 (08:23→19:22)
[2021-03-10] MEDS: nystatin 15 GM powder TP SCH ×2 (08:23→19:19)
[2021-03-10] MEDS ORDERED: potassium Cl 20 mEq SR tablet PO PRN ×2 (12:35)
[2021-03-10] MEDS ORDERED: potassium Cl 40MEQ/1/2NS 520ml 520 ML IV PRN (12:35)
[2021-03-10] MEDS ORDERED: magnesium 4gm in 100ml NS 100 ML IV PRN (12:35)
[2021-03-10] MEDS ORDERED: magnesium Cl slow-release 64mg tablet PO PRN (12:35)
[2021-03-10] MEDS ORDERED: Neutra Phos packet PO PRN (13:00)
[2021-03-10] MEDS ORDERED: Neutra Phos packet PO SCH (13:00)
[2021-03-10] MEDS: morphine 2 MG/ML inj. syringe IV PRN ×2 (14:48→19:19)
--- NOTE | 2021-03-10 15:39 | NUR ---
MD Beebe PAGER ID: [phone] MESSAGE: Samir Acce Ext. [phone] Pt brett Pretty rm 318. SBP maintaining 160-170's even with prn hydralazine Q4H 15mg given at 1245. Please advise.
--- NOTE | 2021-03-10 18:11 | NUR ---
[place] documentation: I have reviewed and agree with all interventions, assessments performed and documented by Samir RN Student Medication Administration: For this medication-pass time frame, all medication were reviewed, dispensed, administered and documented per hospital policy by Samir RN.
--- NOTE | 2021-03-10 18:12 | NUR ---
Problems reprioritized. Patient report given, questions answered & plan of care reviewed with Jovanny Cameron.
--- NOTE | 2021-03-10 18:15 | NUR ---
Patient in room MED 318. I have received report from Grace/Samir-RN, and had the opportunity to ask questions and assume patient care.
[2021-03-10] MEDS: K and/or MAG REPLACEMENT MC SCH (20:00)
[2021-03-11] VITALS (8 sets, daily range): BP systolic 159–194; BP diastolic 75–101
--- NOTE | 2021-03-11 02:45 | NUR ---
Patient is off of the BiPAP, on 2L NC with O2 sat at 97%. Not under any stress. No right flank pain. AOX4, call light within reach. All needs are met.
--- NOTE | 2021-03-11 06:31 | NUR ---
Problems reprioritized. Patient report given, questions answered & plan of care reviewed with Sana-JASON.
[2021-03-11] MEDS: ipratropium 0.5 MG/2.5ML nebule NEB PRN ×2 (07:46→20:09)
[2021-03-11] MEDS: budesonide 0.5mg/2ml UD nebule IH SCH ×2 (07:46→20:09)
[2021-03-11] MEDS: morphine 2 MG/ML inj. syringe IV PRN ×3 (07:48→19:44)
[2021-03-11] MEDS: carVEDilol 3.125mg tablet PO SCH ×2 (07:51→19:43)
[2021-03-11] MEDS: docusate sod 100mg capsule PO SCH ×2 (07:51→19:43)
[2021-03-11 07:52] LABS: BASOPHILS # (AUTO) 0.1 X10'3 (0-0.2); EOSINOPHILS # (AUTO) 0.1 X10'3 (0-0.9); HEMOGLOBIN 8.9 g/dl (12.0-16.0); MEAN CORPUSCULAR VOLUME 85.3 FL (78-98); NEUTROPHILS # (AUTO) 10.2 X10'3 (1.8-7.7); WHITE BLOOD COUNT 12.5 X10'3 (4.5-11.0)
[2021-03-11] MEDS: losartan 50mg tablet PO SCH ×2 (07:52→19:43)
[2021-03-11] MEDS: ferrous sulfate 325mg tablet PO SCH (07:52)
[2021-03-11 07:57] LABS: BASOPHILS % (AUTO) 0.4 % (0-1); EOSINOPHILS % (AUTO) 0.8 % (0-6); HEMATOCRIT 28.5 % (35.0-45.0); LYMPHOCYTES # (AUTO) 1.2 X10'3 (1.1-4.8); LYMPHOCYTES % (AUTO) 9.8 % (21-51); MEAN CORPUSCULAR HEMOGLOBIN 26.7 PG (27.0-31.0); MEAN CORPUSCULAR HGB CONC 31.3 g/dL (33.0-36.5); MEAN PLATELET VOLUME 8.1 FL (7.4-10.4); MONOCYTES % (AUTO) 7.7 % (2-12); NEUTROPHILS % (AUTO) 81.3 % (42-75); PLATELET COUNT 599 X10'3 (140-440); RED BLOOD COUNT 3.34 X10'6 (4.20-5.60); RED CELL DISTRIBUTION WIDTH 20.8 % (11.5-14.5)
[2021-03-11] MEDS: K and/or MAG REPLACEMENT MC SCH ×2 (08:00→20:00)
[2021-03-11] MEDS: flecainide 50mg tablet PO SCH ×2 (08:00→19:43)
[2021-03-11] MEDS: mineral oil/petrolatum, white cream 113gm jar TP SCH ×2 (08:00→19:44)
[2021-03-11] MEDS: nystatin 15 GM powder TP SCH ×2 (08:00→19:43)
[2021-03-11 08:09] LABS: ALANINE AMINOTRANSFERASE 14 U/L (12-78); ALBUMIN/GLOBULIN RATIO 0.4 (1.1-1.5); ALKALINE PHOSPHATASE 110 IU/L (46-116); ANION GAP 6 (8-16); ASPARTATE AMINO TRANSFERASE 17 U/L (10-37); BILIRUBIN,TOTAL 0.6 MG/DL (0.1-1.0); BLOOD UREA NITROGEN 21 MG/DL (7-18); BUN/CREATININE RATIO 13.3 (6.6-38.0); CALCIUM 8.8 MG/DL (8.5-10.1); CHLORIDE 108 MMOL/L (99-107); CREATININE 1.58 MG/DL (0.40-0.90); GLUCOSE 98 MG/DL (70-104); POTASSIUM 4.2 MMOL/L (3.5-5.1); SODIUM 143 MMOL/L (135-145); TOTAL CARBON DIOXIDE 29.1 MMOL/L (24-32); TOTAL PROTEIN 7.5 G/DL (6.4-8.2); eGFR 33 ML/MIN
[2021-03-11] MEDS: hydrALAZINE 20mg/ml inj. IV PRN (13:55)
[2021-03-11] MEDS ORDERED: amLODIPine 5mg tablet PO ONE (14:00)
[2021-03-12] VITALS (8 sets, daily range): BP systolic 141–192; BP diastolic 54–98
[2021-03-12] MEDS: hydrALAZINE 20mg/ml inj. IV PRN (03:00)
[2021-03-12] MEDS: morphine 2 MG/ML inj. syringe IV PRN ×2 (03:01→17:43)
--- NOTE | 2021-03-12 05:46 | NUR ---
Brittany is not working. complete linen change done. Candice-care completed. Patient feels better. Took the BiPAP off. On 2L NC with O2 sat at 95%. Not under any distress. Call light within reach.
--- NOTE | 2021-03-12 06:25 | NUR ---
Problems reprioritized. Patient report given, questions answered & plan of care reviewed with Erinn(PCU).
[2021-03-12] MEDS: mineral oil/petrolatum, white cream 113gm jar TP SCH ×2 (08:00→20:19)
[2021-03-12] MEDS: K and/or MAG REPLACEMENT MC SCH ×2 (08:00→20:00)
[2021-03-12] MEDS ORDERED: amLODIPine 5mg tablet PO SCH (08:00)
[2021-03-12] MEDS: nystatin 15 GM powder TP SCH ×2 (08:00→20:18)
[2021-03-12] MEDS: budesonide 0.5mg/2ml UD nebule IH SCH ×2 (08:07→19:50)
[2021-03-12] MEDS: carVEDilol 3.125mg tablet PO SCH ×2 (08:24→20:18)
[2021-03-12] MEDS: docusate sod 100mg capsule PO SCH ×2 (08:24→20:18)
[2021-03-12] MEDS: losartan 50mg tablet PO SCH ×2 (08:24→20:18)
[2021-03-12] MEDS: ferrous sulfate 325mg tablet PO SCH (08:25)
[2021-03-12] MEDS: flecainide 50mg tablet PO SCH ×2 (08:25→20:18)
[2021-03-12 08:44] LABS: BASOPHILS % (AUTO) 0.4 % (0-1); EOSINOPHILS # (AUTO) 0.1 X10'3 (0-0.9); EOSINOPHILS % (AUTO) 1.3 % (0-6); HEMATOCRIT 27.2 % (35.0-45.0); HEMOGLOBIN 8.7 g/dl (12.0-16.0); LYMPHOCYTES % (AUTO) 10.9 % (21-51); MEAN CORPUSCULAR HEMOGLOBIN 27.2 PG (27.0-31.0); MEAN CORPUSCULAR HGB CONC 31.9 g/dL (33.0-36.5); MEAN CORPUSCULAR VOLUME 85.3 FL (78-98); MEAN PLATELET VOLUME 7.7 FL (7.4-10.4); MONOCYTES # (AUTO) 0.9 X10'3 (0-0.9); MONOCYTES % (AUTO) 9.8 % (2-12); NEUTROPHILS # (AUTO) 7.2 X10'3 (1.8-7.7); NEUTROPHILS % (AUTO) 77.6 % (42-75); PLATELET COUNT 543 X10'3 (140-440); RED BLOOD COUNT 3.19 X10'6 (4.20-5.60); RED CELL DISTRIBUTION WIDTH 20.1 % (11.5-14.5); WHITE BLOOD COUNT 9.2 X10'3 (4.5-11.0)
[2021-03-12] MEDS ORDERED: NOR5T PO (08:51)
[2021-03-12] MEDS ORDERED: COR3.125T PO (08:51)
[2021-03-12] MEDS ORDERED: TAM50T PO (08:51)
[2021-03-12] MEDS ORDERED: LOSA50TA64 PO (08:51)
[2021-03-12 09:14] LABS: ALANINE AMINOTRANSFERASE 8 U/L (12-78); ALBUMIN/GLOBULIN RATIO 0.4 (1.1-1.5); ALKALINE PHOSPHATASE 99 IU/L (46-116); ANION GAP 4 (8-16); ASPARTATE AMINO TRANSFERASE 22 U/L (10-37); BILIRUBIN,TOTAL 0.5 MG/DL (0.1-1.0); BLOOD UREA NITROGEN 22 MG/DL (7-18); BUN/CREATININE RATIO 13.9 (6.6-38.0); CALCIUM 8.9 MG/DL (8.5-10.1); CHLORIDE 109 MMOL/L (99-107); CREATININE 1.58 MG/DL (0.40-0.90); GLUCOSE 110 MG/DL (70-104); MAGNESIUM 1.8 MG/DL (1.5-2.4); PHOSPHORUS 3.4 MG/DL (2.3-4.5); POTASSIUM 3.9 MMOL/L (3.5-5.1); SODIUM 143 MMOL/L (135-145); TOTAL CARBON DIOXIDE 30.3 MMOL/L (24-32); TOTAL PROTEIN 7.2 G/DL (6.4-8.2); eGFR 33 ML/MIN
[2021-03-12 09:37] LABS: ANISOCYTOSIS 3+; PLATELET ESTIMATE INCREASED
[2021-03-12] MEDS ORDERED: ondansetron 4mg rapidly disintigrating tab PO PRN (14:25)
--- NOTE | 2021-03-12 18:22 | NUR ---
Problems reprioritized. Patient report given, questions answered & plan of care reviewed with Jovanny GOMEZ.
--- NOTE | 2021-03-12 18:25 | NUR ---
Patient in room MED 318. I have received report from Yahir-RN(PCU), and had the opportunity to ask questions and assume patient care.
[2021-03-12] MEDS: ipratropium 0.5 MG/2.5ML nebule NEB PRN (19:50)
[2021-03-13 02:00] VITALS: BP 133/62
[2021-03-13 06:00] VITALS: BP 186/100
[2021-03-13 06:33] LABS: BASOPHILS # (AUTO) 0.1 X10'3 (0-0.2); BASOPHILS % (AUTO) 0.8 % (0-1); EOSINOPHILS # (AUTO) 0.1 X10'3 (0-0.9); EOSINOPHILS % (AUTO) 1.7 % (0-6); HEMATOCRIT 25.9 % (35.0-45.0); HEMOGLOBIN 8.2 g/dl (12.0-16.0); LYMPHOCYTES # (AUTO) 1.1 X10'3 (1.1-4.8); MEAN CORPUSCULAR HEMOGLOBIN 27.1 PG (27.0-31.0); MEAN CORPUSCULAR HGB CONC 31.8 g/dL (33.0-36.5); MEAN CORPUSCULAR VOLUME 85.4 FL (78-98); MONOCYTES # (AUTO) 0.7 X10'3 (0-0.9); MONOCYTES % (AUTO) 9.6 % (2-12); NEUTROPHILS # (AUTO) 5.5 X10'3 (1.8-7.7); NEUTROPHILS % (AUTO) 72.9 % (42-75); PLATELET COUNT 493 X10'3 (140-440); RED BLOOD COUNT 3.03 X10'6 (4.20-5.60); RED CELL DISTRIBUTION WIDTH 20.2 % (11.5-14.5); WHITE BLOOD COUNT 7.6 X10'3 (4.5-11.0)
--- NOTE | 2021-03-13 06:43 | NUR ---
Problems reprioritized. Patient report given, questions answered & plan of care reviewed with Pat-RN.
[2021-03-13 06:53] LABS: ALANINE AMINOTRANSFERASE 12 U/L (12-78); ALBUMIN 1.9 G/DL (3.4-5.0); ALBUMIN/GLOBULIN RATIO 0.4 (1.1-1.5); ALKALINE PHOSPHATASE 96 IU/L (46-116); ANION GAP 4 (8-16); ASPARTATE AMINO TRANSFERASE 19 U/L (10-37); BILIRUBIN,TOTAL 0.5 MG/DL (0.1-1.0); BLOOD UREA NITROGEN 20 MG/DL (7-18); BUN/CREATININE RATIO 13.1 (6.6-38.0); CALCIUM 8.8 MG/DL (8.5-10.1); CHLORIDE 109 MMOL/L (99-107); CREATININE 1.53 MG/DL (0.40-0.90); GLUCOSE 83 MG/DL (70-104); MAGNESIUM 1.9 MG/DL (1.5-2.4); SODIUM 146 MMOL/L (135-145); TOTAL CARBON DIOXIDE 33.1 MMOL/L (24-32); eGFR 34 ML/MIN
[2021-03-13 07:24] LABS: ANISOCYTOSIS 3+; PLATELET ESTIMATE INCREASED
[2021-03-13] MEDS: mineral oil/petrolatum, white cream 113gm jar TP SCH ×2 (08:00→19:48)
[2021-03-13] MEDS: K and/or MAG REPLACEMENT MC SCH ×2 (08:00→20:00)
[2021-03-13] MEDS: ipratropium 0.5 MG/2.5ML nebule NEB PRN ×2 (08:30→19:52)
[2021-03-13] MEDS: budesonide 0.5mg/2ml UD nebule IH SCH ×2 (08:30→19:52)
[2021-03-13] MEDS: hydrALAZINE 20mg/ml inj. IV PRN (09:46)
[2021-03-13] MEDS: amLODIPine 5mg tablet PO SCH (09:51)
[2021-03-13] MEDS: flecainide 50mg tablet PO SCH ×2 (09:52→19:46)
[2021-03-13] MEDS: ferrous sulfate 325mg tablet PO SCH (09:52)
[2021-03-13] MEDS: carVEDilol 3.125mg tablet PO SCH ×2 (09:52→19:46)
[2021-03-13] MEDS: docusate sod 100mg capsule PO SCH ×2 (09:52→19:46)
[2021-03-13 10:00] VITALS: BP 165/76
[2021-03-13] MEDS: losartan 50mg tablet PO SCH ×2 (10:02→19:46)
[2021-03-13] MEDS: morphine 2 MG/ML inj. syringe IV PRN (10:04)
[2021-03-13] MEDS: nystatin 15 GM powder TP SCH ×2 (10:09→19:48)
[2021-03-13 15:00] VITALS: BP 152/64
--- NOTE | 2021-03-13 16:18 | NUR ---
Reassessment: Patient's PO intake fluctuates, documented with average 50% PO intake not meeting estimated nutrient needs. Pt seen at bedside provided with alternative menu to provide additional food options. Food preferences were obtained and d/w dietary, see below. Pt reports low appetite is r/t not feeling well overall. Pt denies food allergies, difficulty chewing/swallowing, or constipation/diarrhea. LBM 6/13 per EMR however pt reports LBM 6/14 x 3 and reports being constipated x 5 days prior to that. Pt receiving routine bowel care and denies nutrition therapy intervention to assist with bowel regularity at this time. Pt provided with RD contact information and encouraged to reach out for further food preferences. Will continue to follow closely. Rec: 1. continue heart healthy diet; encourage PO intake 2. ensure enlive TIDMW; pending MD verification in EMR 3. honor food preferences: gelatin WB, chocolate pudding WL, cottage cheese and caffeine free cola WS; no fish 4. routine bowel care 5. weekly scaled wts Addendum: 03/13/21 at [address] Amended: Links added.
[2021-03-13 18:00] VITALS: BP 196/106
--- NOTE | 2021-03-13 18:40 | NUR ---
Patient in room MED 318. I have received report from Gill RN and had the opportunity to ask questions and assume patient care. Rounded on patient and introduced self, discussed plan of care. Patient denies needs. Assisted patient back into bed.
[2021-03-13 22:00] VITALS: BP 150/60
[2021-03-14] VITALS (7 sets, daily range): BP systolic 146–188; BP diastolic 60–97
[2021-03-14 06:19] LABS: BASOPHILS % (AUTO) 0.5 % (0-1); EOSINOPHILS # (AUTO) 0.1 X10'3 (0-0.9); EOSINOPHILS % (AUTO) 1.5 % (0-6); HEMATOCRIT 25.3 % (35.0-45.0); HEMOGLOBIN 8.1 g/dl (12.0-16.0); LYMPHOCYTES # (AUTO) 1.1 X10'3 (1.1-4.8); MEAN CORPUSCULAR HEMOGLOBIN 27.1 PG (27.0-31.0); MEAN CORPUSCULAR VOLUME 84.7 FL (78-98); MONOCYTES # (AUTO) 0.7 X10'3 (0-0.9); MONOCYTES % (AUTO) 9.4 % (2-12); NEUTROPHILS # (AUTO) 5.1 X10'3 (1.8-7.7); NEUTROPHILS % (AUTO) 72.6 % (42-75); PLATELET COUNT 465 X10'3 (140-440); RED BLOOD COUNT 2.99 X10'6 (4.20-5.60); RED CELL DISTRIBUTION WIDTH 19.4 % (11.5-14.5)
[2021-03-14 06:24] LABS: ALANINE AMINOTRANSFERASE 11 U/L (12-78); ALBUMIN/GLOBULIN RATIO 0.4 (1.1-1.5); ALKALINE PHOSPHATASE 93 IU/L (46-116); ANION GAP 5 (8-16); ASPARTATE AMINO TRANSFERASE 22 U/L (10-37); BILIRUBIN,TOTAL 0.5 MG/DL (0.1-1.0); BLOOD UREA NITROGEN 19 MG/DL (7-18); BUN/CREATININE RATIO 11.9 (6.6-38.0); CALCIUM 8.7 MG/DL (8.5-10.1); CHLORIDE 109 MMOL/L (99-107); CREATININE 1.59 MG/DL (0.40-0.90); GLUCOSE 82 MG/DL (70-104); MAGNESIUM 1.9 MG/DL (1.5-2.4); PHOSPHORUS 3.7 MG/DL (2.3-4.5); POTASSIUM 3.8 MMOL/L (3.5-5.1); SODIUM 148 MMOL/L (135-145); TOTAL CARBON DIOXIDE 34.5 MMOL/L (24-32); eGFR 32 ML/MIN
--- NOTE | 2021-03-14 06:36 | NUR ---
Problems reprioritized. Patient report given, questions answered & plan of care reviewed with Pat RN, patient sleeping for bedside report.
[2021-03-14] MEDS: K and/or MAG REPLACEMENT MC SCH ×2 (08:00→19:55)
[2021-03-14] MEDS: nystatin 15 GM powder TP SCH ×2 (08:17→19:51)
[2021-03-14] MEDS: ferrous sulfate 325mg tablet PO SCH (08:18)
[2021-03-14] MEDS: mineral oil/petrolatum, white cream 113gm jar TP SCH ×2 (08:18→19:52)
[2021-03-14] MEDS: flecainide 50mg tablet PO SCH ×2 (08:18→19:51)
[2021-03-14] MEDS: losartan 50mg tablet PO SCH ×2 (08:18→19:51)
[2021-03-14] MEDS: amLODIPine 5mg tablet PO SCH (08:19)
[2021-03-14] MEDS: docusate sod 100mg capsule PO SCH ×2 (08:19→19:51)
[2021-03-14] MEDS: carVEDilol 3.125mg tablet PO SCH ×2 (08:19→19:51)
[2021-03-14] MEDS: budesonide 0.5mg/2ml UD nebule IH SCH ×2 (08:31→21:11)
[2021-03-14 13:00] LABS: ANISOCYTOSIS 2+; PLATELET ESTIMATE INCREASED; TOTAL CELLS COUNTED 100
[2021-03-14 13:01] LABS: POLYCHROMASIA FEW; STOMATOCYTES FEW
[2021-03-14] MEDS: hydrALAZINE 20mg/ml inj. IV PRN (18:37)
[2021-03-14] MEDS: morphine 2 MG/ML inj. syringe IV PRN (22:50)
[2021-03-15 02:00] VITALS: BP 150/90
[2021-03-15 05:30] LABS: BASOPHILS % (AUTO) 0.4 % (0-1); EOSINOPHILS # (AUTO) 0.1 X10'3 (0-0.9); EOSINOPHILS % (AUTO) 1.1 % (0-6); HEMATOCRIT 25.6 % (35.0-45.0); HEMOGLOBIN 8.1 g/dl (12.0-16.0); LYMPHOCYTES # (AUTO) 1.1 X10'3 (1.1-4.8); MEAN CORPUSCULAR HEMOGLOBIN 26.7 PG (27.0-31.0); MEAN CORPUSCULAR HGB CONC 31.8 g/dL (33.0-36.5); MEAN CORPUSCULAR VOLUME 83.9 FL (78-98); MEAN PLATELET VOLUME 7.7 FL (7.4-10.4); MONOCYTES # (AUTO) 0.7 X10'3 (0-0.9); MONOCYTES % (AUTO) 10.5 % (2-12); NEUTROPHILS # (AUTO) 4.8 X10'3 (1.8-7.7); PLATELET COUNT 450 X10'3 (140-440); RED BLOOD COUNT 3.05 X10'6 (4.20-5.60); RED CELL DISTRIBUTION WIDTH 19.4 % (11.5-14.5); WHITE BLOOD COUNT 6.8 X10'3 (4.5-11.0)
[2021-03-15 05:36] LABS: ALANINE AMINOTRANSFERASE 9 U/L (12-78); ALBUMIN 2.1 G/DL (3.4-5.0); ALBUMIN/GLOBULIN RATIO 0.4 (1.1-1.5); ALKALINE PHOSPHATASE 97 IU/L (46-116); ANION GAP 4 (8-16); ASPARTATE AMINO TRANSFERASE 24 U/L (10-37); BILIRUBIN,TOTAL 0.5 MG/DL (0.1-1.0); BLOOD UREA NITROGEN 22 MG/DL (7-18); BUN/CREATININE RATIO 12.7 (6.6-38.0); CALCIUM 8.6 MG/DL (8.5-10.1); CHLORIDE 108 MMOL/L (99-107); CREATININE 1.73 MG/DL (0.40-0.90); GLUCOSE 86 MG/DL (70-104); MAGNESIUM 1.9 MG/DL (1.5-2.4); PHOSPHORUS 3.9 MG/DL (2.3-4.5); SODIUM 146 MMOL/L (135-145); TOTAL CARBON DIOXIDE 33.9 MMOL/L (24-32); TOTAL PROTEIN 7.3 G/DL (6.4-8.2); eGFR 29 ML/MIN
[2021-03-15 06:00] VITALS: BP 176/93
--- NOTE | 2021-03-15 06:15 | NUR ---
Problems reprioritized. Patient report given, questions answered & plan of care reviewed with JASON Robbins.
--- NOTE | 2021-03-15 06:37 | NUR ---
Patient in room MED 318. I have received report from JASON Hadley and had the opportunity to ask questions and assume patient care.
[2021-03-15] MEDS: budesonide 0.5mg/2ml UD nebule IH SCH ×2 (07:20→21:51)
[2021-03-15] MEDS: docusate sod 100mg capsule PO SCH ×2 (07:40→19:58)
[2021-03-15] MEDS: losartan 50mg tablet PO SCH ×2 (07:41→19:58)
[2021-03-15] MEDS: carVEDilol 3.125mg tablet PO SCH ×2 (07:41→19:58)
[2021-03-15] MEDS: amLODIPine 5mg tablet PO SCH (07:41)
[2021-03-15] MEDS: ferrous sulfate 325mg tablet PO SCH (07:41)
[2021-03-15] MEDS: nystatin 15 GM powder TP SCH ×2 (07:42→19:59)
[2021-03-15] MEDS: flecainide 50mg tablet PO SCH ×2 (07:42→19:57)
[2021-03-15] MEDS: mineral oil/petrolatum, white cream 113gm jar TP SCH ×2 (07:42→19:59)
[2021-03-15] MEDS: K and/or MAG REPLACEMENT MC SCH ×2 (08:00→19:58)
[2021-03-15 11:02] VITALS: BP 121/59
[2021-03-15 18:00] VITALS: BP 178/85
--- NOTE | 2021-03-15 18:00 | NUR ---
Patient in room MED 318. I have received report from Itzel GOMEZ and had the opportunity to ask questions and assume patient care.
--- NOTE | 2021-03-15 18:26 | NUR ---
Problems reprioritized. Patient report given, questions answered & plan of care reviewed with JASON Mora.
[2021-03-15 22:00] VITALS: BP 172/81
[2021-03-15] MEDS: hydrALAZINE 20mg/ml inj. IV PRN (23:09)
[2021-03-15 23:15] VITALS: BP 139/68
[2021-03-16 02:00] VITALS: BP 120/72
--- NOTE | 2021-03-16 06:14 | NUR ---
Problems reprioritized. Patient report given, questions answered & plan of care reviewed with Archana GOMEZ.
[2021-03-16 06:22] LABS: BASOPHILS % (AUTO) 0.3 % (0-1); EOSINOPHILS # (AUTO) 0.1 X10'3 (0-0.9); EOSINOPHILS % (AUTO) 1.2 % (0-6); HEMATOCRIT 25.8 % (35.0-45.0); HEMOGLOBIN 8.1 g/dl (12.0-16.0); LYMPHOCYTES # (AUTO) 1.1 X10'3 (1.1-4.8); LYMPHOCYTES % (AUTO) 15.9 % (21-51); MEAN CORPUSCULAR HEMOGLOBIN 26.9 PG (27.0-31.0); MEAN CORPUSCULAR HGB CONC 31.6 g/dL (33.0-36.5); MEAN CORPUSCULAR VOLUME 85.2 FL (78-98); MEAN PLATELET VOLUME 8.1 FL (7.4-10.4); MONOCYTES # (AUTO) 0.7 X10'3 (0-0.9); MONOCYTES % (AUTO) 9.7 % (2-12); NEUTROPHILS # (AUTO) 4.9 X10'3 (1.8-7.7); NEUTROPHILS % (AUTO) 72.9 % (42-75); PLATELET COUNT 415 X10'3 (140-440); RED BLOOD COUNT 3.02 X10'6 (4.20-5.60); RED CELL DISTRIBUTION WIDTH 19.3 % (11.5-14.5); WHITE BLOOD COUNT 6.7 X10'3 (4.5-11.0)
[2021-03-16 06:36] LABS: ALANINE AMINOTRANSFERASE 8 U/L (12-78); ALBUMIN 2.1 G/DL (3.4-5.0); ALBUMIN/GLOBULIN RATIO 0.4 (1.1-1.5); ALKALINE PHOSPHATASE 92 IU/L (46-116); ANION GAP 5 (8-16); ASPARTATE AMINO TRANSFERASE 23 U/L (10-37); BILIRUBIN,TOTAL 0.5 MG/DL (0.1-1.0); BLOOD UREA NITROGEN 24 MG/DL (7-18); BUN/CREATININE RATIO 15.4 (6.6-38.0); CALCIUM 8.6 MG/DL (8.5-10.1); CHLORIDE 108 MMOL/L (99-107); CREATININE 1.56 MG/DL (0.40-0.90); GLUCOSE 88 MG/DL (70-104); MAGNESIUM 1.8 MG/DL (1.5-2.4); PHOSPHORUS 3.8 MG/DL (2.3-4.5); POTASSIUM 3.8 MMOL/L (3.5-5.1); SODIUM 146 MMOL/L (135-145); TOTAL CARBON DIOXIDE 32.7 MMOL/L (24-32); eGFR 33 ML/MIN
[2021-03-16 07:00] VITALS: BP 182/91
[2021-03-16] MEDS: ipratropium 0.5 MG/2.5ML nebule NEB PRN (07:15)
[2021-03-16] MEDS: budesonide 0.5mg/2ml UD nebule IH SCH (07:16)
[2021-03-16] MEDS: hydrALAZINE 20mg/ml inj. IV PRN (07:27)
[2021-03-16] MEDS: ferrous sulfate 325mg tablet PO SCH (07:35)
[2021-03-16] MEDS: carVEDilol 3.125mg tablet PO SCH (07:35)
[2021-03-16] MEDS: amLODIPine 5mg tablet PO SCH (07:35)
[2021-03-16] MEDS: docusate sod 100mg capsule PO SCH (07:36)
[2021-03-16] MEDS: losartan 50mg tablet PO SCH (07:36)
[2021-03-16] MEDS: flecainide 50mg tablet PO SCH (07:36)
[2021-03-16] MEDS: mineral oil/petrolatum, white cream 113gm jar TP SCH (07:40)
[2021-03-16] MEDS: nystatin 15 GM powder TP SCH (07:40)
[2021-03-16 09:00] VITALS: BP 133/69
--- NOTE | 2021-03-16 09:35 | NUR ---
REPORT PHONED TO СЕРГЕЙ GOMEZ AT [facility].I.. PICC LINE DC'D 2X2 PRESSURE DRESSING APPLIED.AT 1010 TRANSPORT PERSONNEL ARRIVED. TELE REMOVED FROM PATIENT, PATIENT'S BELONGINGS PACKED AND GIVEN TO TRANSPORT PERSONNEL.PATIENT READY TO LEAVE ; HOWEVER, TRANSPORT PERSONNEL REFUSED TO TAKE PATIENT UNLESS F/C PLACED. DR. ELLINGTON APPRISED. 16 LUXEMBOURGER LEYVA CATHETER PLACED .1113 PATIENT TRANSFERRED OUT VIA GURNEY WITH ALL BELONGINGS . CALL PLACED TO UPDATE СЕРГЕЙ GOMEZ REGARDING F/C AND NEED TO DISCONTINUE F/C UPON ARRIVAL. Addendum: 03/16/21 at 1932 by Fanny Ray RN Amended: Links added.
== END 2021-03-16 11:10 | DRG 134 ==
LOC: ER 03:44 → ED HOLD 06:35 → UNDOADMIN 06:35 → ED HOLD 12:41 → ICU 2S 16:00 → ED HOLD 16:00 → MED 3N 03-07 16:44
PROVIDERS: ADMIT Internal Medicine Critical Care Medicine; ATTEND Internal Medicine Critical Care Medicine
PROC: 5A09357 Assistance with Respiratory Ventilation, Less than 24 Consecutive Hours, Continuous Positive Airway Pressure (ICD-10-PCS; principal; 2021-03-04)
PROC: 30233N1 Transfusion of Nonautologous Red Blood Cells into Peripheral Vein, Percutaneous Approach (ICD-10-PCS; 2021-03-04)
PROC: 5A09357 Assistance with Respiratory Ventilation, Less than 24 Consecutive Hours, Continuous Positive Airway Pressure (ICD-10-PCS; 2021-03-05)
PROC: CB121ZZ Planar Nuclear Medicine Imaging of Lungs and Bronchi using Technetium 99m (Tc-99m) (ICD-10-PCS; 2021-03-05)
PROC: 5A09357 Assistance with Respiratory Ventilation, Less than 24 Consecutive Hours, Continuous Positive Airway Pressure (ICD-10-PCS; 2021-03-07)
PROC: 5A09357 Assistance with Respiratory Ventilation, Less than 24 Consecutive Hours, Continuous Positive Airway Pressure (ICD-10-PCS; 2021-03-10)
PROC: 5A09357 Assistance with Respiratory Ventilation, Less than 24 Consecutive Hours, Continuous Positive Airway Pressure (ICD-10-PCS; 2021-03-11)
DX: I26.99 Other pulmonary embolism without acute cor pulmonale (principal); J96.20 Acute and chronic respiratory failure, unspecified whether with hypoxia or hypercapnia; N17.0 Acute kidney failure with tubular necrosis; E87.0 Hyperosmolality and hypernatremia; I49.5 Sick sinus syndrome; D62 Acute posthemorrhagic anemia; R18.8 Other ascites; F20.9 Schizophrenia, unspecified; N18.30 Chronic kidney disease, stage 3 unspecified; I50.9 Heart failure, unspecified; I13.0 Hypertensive heart and chronic kidney disease with heart failure and stage 1 through stage 4 chronic kidney disease, or unspecified chronic kidney disease; S37.011A Minor contusion of right kidney, initial encounter; E66.9 Obesity, unspecified; F17.210 Nicotine dependence, cigarettes, uncomplicated; J44.9 Chronic obstructive pulmonary disease, unspecified; N26.1 Atrophy of kidney (terminal); Z60.2 Problems related to living alone; M54.9 Dorsalgia, unspecified; K80.20 Calculus of gallbladder without cholecystitis without obstruction; M48.54XA Collapsed vertebra, not elsewhere classified, thoracic region, initial encounter for fracture; X58.XXXA Exposure to other specified factors, initial encounter; Z79.01 Long term (current) use of anticoagulants; Z79.899 Other long term (current) drug therapy; Z86.711 Personal history of pulmonary embolism; Z86.718 Personal history of other venous thrombosis and embolism; Z86.73 Personal history of transient ischemic attack (TIA), and cerebral infarction without residual deficits; Z87.442 Personal history of urinary calculi; Z68.36 Body mass index [BMI] 36.0-36.9, adult; Z88.8 Allergy status to other drugs, medicaments and biological substances; Z91.19 Patient's noncompliance with other medical treatment and regimen; Z71.6 Tobacco abuse counseling; Y93.89 Activity, other specified; Y92.89 Other specified places as the place of occurrence of the external cause; Y99.8 Other external cause status
CPT/HCPCS: 36415; 36430; 71045; 74176; 78582; 80053; 81001; 82570; 83605; 83735; 83880; 84100; 84145; 84300; 84484; 85007; 85008; 85025; 85027; 86885; 86900; 86901; 86920; 87040; 87081; 87088; 87207; 93005; 93970; 94640; 94660; 94760; 96361; 96365; 96368; 96375; 97110; 97116; 97161; 97530; 99285; A9539; A9540; G0378; J0360; J0692; J2270; J3370; J3490; J7030; J7040; J7626; P9016; Q9967

== ENCOUNTER 2021-04-26 23:08 | Inpatient (IN) | payer MEDICAID ==
[~2021-04-26] VITALS: Ht 165.1 cm; Wt 100.0 kg
[~2021-04-26 23:08] MED LIST changes: +BUDE10.26 IH; -BUDE10.27 PO; -CARCD120C PO; +COR3.125T PO; -DILT-36 PO; -FURO20TA4 PO; -LISI10TA27 PO; -LISI20TA28 PO; +LOSA50TA64 PO; +NOR5T PO; +TAM50T PO
[2021-04-27 00:06] LABS: BASOPHILS % (AUTO) 0.3 % (0-1); EOSINOPHILS # (AUTO) 0.3 X10'3 (0-0.9); EOSINOPHILS % (AUTO) 3.6 % (0-6); HEMOGLOBIN 9.4 g/dl (12.0-16.0); LYMPHOCYTES # (AUTO) 1.9 X10'3 (1.1-4.8); LYMPHOCYTES % (AUTO) 24.9 % (21-51); MEAN CORPUSCULAR HEMOGLOBIN 27.1 PG (27.0-31.0); MEAN CORPUSCULAR HGB CONC 32.4 g/dL (33.0-36.5); MEAN CORPUSCULAR VOLUME 83.7 FL (78-98); MEAN PLATELET VOLUME 7.5 FL (7.4-10.4); MONOCYTES # (AUTO) 0.8 X10'3 (0-0.9); MONOCYTES % (AUTO) 10.5 % (2-12); NEUTROPHILS # (AUTO) 4.5 X10'3 (1.8-7.7); NEUTROPHILS % (AUTO) 60.7 % (42-75); PLATELET COUNT 356 X10'3 (140-440); RED BLOOD COUNT 3.47 X10'6 (4.20-5.60); RED CELL DISTRIBUTION WIDTH 16.8 % (11.5-14.5); WHITE BLOOD COUNT 7.5 X10'3 (4.5-11.0)
[2021-04-27 00:28] LABS: ALANINE AMINOTRANSFERASE 11 U/L (12-78); ALBUMIN 2.4 G/DL (3.4-5.0); ALBUMIN/GLOBULIN RATIO 0.6 (1.1-1.5); ALKALINE PHOSPHATASE 144 IU/L (46-116); ANION GAP 5 (8-16); ASPARTATE AMINO TRANSFERASE 11 U/L (10-37); BILIRUBIN,TOTAL 0.2 MG/DL (0.1-1.0); BLOOD UREA NITROGEN 13 MG/DL (7-18); BUN/CREATININE RATIO 9.6 (6.6-38.0); CHLORIDE 112 MMOL/L (99-107); CREATININE 1.35 MG/DL (0.40-0.90); GLUCOSE 82 MG/DL (70-104); POTASSIUM 3.7 MMOL/L (3.5-5.1); SODIUM 145 MMOL/L (135-145); TOTAL CARBON DIOXIDE 28.4 MMOL/L (24-32); TOTAL PROTEIN 6.7 G/DL (6.4-8.2); eGFR 39 ML/MIN
[2021-04-27] MEDS ORDERED: vancomycin/NS 1 GM ADD-VANTAGE 250 ML IV ONE (00:40)
[2021-04-27] MEDS ORDERED: furosemide 10 MG/1 ML 10ml inj IV ONE (00:50)
[2021-04-27] MEDS ORDERED: magnesium hydroxide 30ml (MOM) UD suspension PO PRN (01:25)
[2021-04-27] MEDS ORDERED: HYDROcodone/acetaminophen 5mg/325mg tablet PO PRN (01:25)
[2021-04-27] MEDS ORDERED: ondansetron 4mg rapidly disintigrating tab PO PRN (01:25)
[2021-04-27] MEDS ORDERED: mag hydrox/Alum hydrox/simeth 30ml oral suspension PO PRN (01:25)
[2021-04-27] MEDS ORDERED: HYDROcodone/acetaminophen 10/325mg tab PO PRN (01:25)
[2021-04-27] MEDS ORDERED: acetaminophen 325mg tablet PO PRN ×2 (01:25)
[2021-04-27] MEDS ORDERED: morphine 2 MG/ML inj. syringe IV PRN ×2 (01:25)
[2021-04-27] MEDS ORDERED: diphenhydrAMINE 25mg capsule PO PRN (01:25)
[2021-04-27] MEDS ORDERED: bisacodyl 10mg suppository rectal RC PRN (01:25)
[2021-04-27] MEDS ORDERED: ondansetron/PF 4mg/2ml inj IV PRN (01:25)
[2021-04-27] MEDS ORDERED: acetaminophen 650mg rectal suppository RC PRN (01:25)
[2021-04-27] MEDS ORDERED: diphenhydrAMINE 50 mg/ml inj IV PRN (01:25)
[2021-04-27] MEDS ORDERED: HYDROmorphone inj. 0.5 MG/0.5 ML DISP.SYRIN IV PRN (01:25)
[2021-04-27] MEDS ORDERED: nitroGLYCERIN-Tridil 50MG/D5W 250 ML IV PRN (01:35)
[2021-04-27 05:27] LABS: HEMOGLOBIN A1C 5.1 % (4.5-6.2)
[2021-04-27 05:35] LABS: MAGNESIUM 1.9 MG/DL (1.5-2.4); PHOSPHORUS 3.6 MG/DL (2.3-4.5)
--- NOTE | 2021-04-27 06:58 | NUR ---
PATIENT ASLEEP AT THIS TIME.RR REGULAR.
[2021-04-27] MEDS ORDERED: amLODIPine 5mg tablet PO SCH (08:00)
[2021-04-27] MEDS ORDERED: docusate sod 100mg capsule PO SCH (08:00)
[2021-04-27] MEDS ORDERED: carVEDilol 3.125mg tablet PO SCH (08:00)
[2021-04-27] MEDS ORDERED: furosemide 10 MG/1 ML 10ml inj IV SCH (08:00)
[2021-04-27] MEDS ORDERED: FERROUS SULFATE 142 MG TABLET.ER (45mg elemental) PO SCH (08:00)
[2021-04-27] MEDS: piperacillin/tazo 4.5gm/100ml 100 ML IV SCH ×2 (09:15→20:06)
[2021-04-27] MEDS: pantoprazole 40mg Tablet.DR PO SCH (09:16)
[2021-04-27] MEDS: heparin, porcine 5000 units/ml vial SQ SCH ×2 (09:16→20:09)
[2021-04-27] MEDS ORDERED: hydrALAZINE 20mg/ml inj. IV PRN (10:25)
[2021-04-27] MEDS ORDERED: methylPREDNISolone sod succ 125mg/2ml vial IV ONE (10:25)
[2021-04-27] MEDS ORDERED: magnesium Cl slow-release 64mg tablet PO PRN (10:40)
[2021-04-27] MEDS ORDERED: potassium Cl 20 mEq SR tablet PO PRN (10:40)
[2021-04-27] MEDS ORDERED: magnesium 4gm in 100ml NS 100 ML IV PRN (10:40)
[2021-04-27] MEDS ORDERED: potassium Cl 40MEQ/1/2NS 520ml 520 ML IV PRN (10:40)
[2021-04-27] MEDS ORDERED: CARCD120C PO (10:42)
[2021-04-27] MEDS ORDERED: FERR325T29 PO (10:42)
[2021-04-27] MEDS ORDERED: LIDO28.35 TOP (10:42)
[2021-04-27] MEDS ORDERED: BUDE0.5A3 NEB (10:42)
[2021-04-27] MEDS ORDERED: FLEC50TA28 PO (10:42)
[2021-04-27] MEDS ORDERED: COLL30OI TOP (10:42)
[2021-04-27] MEDS ORDERED: ATR0.5NEB NEB (10:42)
[2021-04-27] MEDS ORDERED: LOSA100T57 PO (10:42)
[2021-04-27] MEDS ORDERED: CARV3.1244 PO (10:42)
[2021-04-27] MEDS ORDERED: LISI20TA28 PO (10:42)
[2021-04-27] MEDS ORDERED: AMLO10TA13 PO (10:42)
[2021-04-27] MEDS ORDERED: PANT-47 PO (10:42)
[2021-04-27] MEDS ORDERED: BUDE10.2 INH (10:42)
[2021-04-27] MEDS ORDERED: DOCU-22 PO (10:42)
[2021-04-27] MEDS ORDERED: CALC60OI4 TOP (10:42)
[2021-04-27] MEDS: levalbuterol 0.63mg/3ml nebule IH SCH ×4 (11:00→23:25)
[2021-04-27] MEDS: amLODIPine 5mg tablet PO SCH (12:08)
[2021-04-27 12:56] LABS: PARTIAL THROMBOPLASTIN TIME 30 SECONDS (22-32)
[2021-04-27] MEDS ORDERED: ipratropium 0.5 MG/2.5ML nebule NEB SCH (14:00)
[2021-04-27] MEDS: ipratropium 0.5 MG/2.5ML nebule IH SCH ×4 (14:49→23:25)
[2021-04-27] MEDS: methylPREDNISolone sod succ 125mg/2ml vial IV SCH (15:51)
[2021-04-27] MEDS: hyDRALAzine 10mg tablet PO SCH (15:52)
--- NOTE | 2021-04-27 16:15 | NUR ---
beddings changed patient soaked and wet,did not use the call light to be changed.urine output 750 clear urine, call light within reach.
--- NOTE | 2021-04-27 17:49 | NUR ---
paged Rt for breathing tx.
--- NOTE | 2021-04-27 18:03 | NUR ---
1000 ml urine out from wick.
--- NOTE | 2021-04-27 18:44 | NUR ---
Patient resting in stretcher, even and unlabored respirations. Appears to be asleep at this time.
[2021-04-27] MEDS: budesonide 0.5mg/2ml UD nebule IH SCH (19:01)
[2021-04-27] MEDS: CALCIPOTRIENE TOP SCH (20:00)
[2021-04-27] MEDS: K and/or MAG REPLACEMENT MC SCH (20:00)
[2021-04-27] MEDS ORDERED: non-formulary drug (Budesonide/Formoterol Fumarate (Symbicort 160-4.5 Mcg Inhaler) 2 PUFFS INH SCH (20:00)
[2021-04-27] MEDS: furosemide 40mg/4ml inj IV SCH (20:06)
[2021-04-27] MEDS: docusate sod 100mg capsule PO SCH (20:07)
[2021-04-27] MEDS: flecainide 50mg tablet PO SCH (20:08)
[2021-04-27] MEDS: carVEDilol 3.125mg tablet PO SCH (20:08)
[2021-04-27] MEDS: losartan 50mg tablet PO SCH (20:08)
[2021-04-27] MEDS: lactobacillus rhamnosus 10,000 MMU CELLS/CAPSULE PO SCH (20:10)
--- NOTE | 2021-04-27 20:18 | NUR ---
Patient provided with tea per request, able to swallow pills without any difficulty. No further requests at this time.
[2021-04-27] MEDS ORDERED: temazepam 15mg capsule PO PRN (21:00)
[2021-04-27 22:56] LABS: CLARITY,URINE CLEAR (Clear); COLOR,URINE YELLOW (Yellow); GLUCOSE, URINE NEGATIVE (Neg); KETONES,URINE NEGATIVE (Neg); LEUKOCYTE ESTERASE ,URINE TRACE (Neg); NITRITES, URINE NEGATIVE (Neg); OCCULT BLOOD,URINE NEGATIVE (Neg); PROTEIN,URINE NEGATIVE (Neg); UROBILINOGEN,URINE 0.2 E.U/dL (0.2-1.0)
[2021-04-27 23:08] LABS: BACTERIA,URINE NONE SEEN /HPF (Neg); RBC,URINE NONE SEEN /HPF (0-2); UA COLLECTION TYPE CLN CATCH MIDSTREAM; WBC,URINE 0-4 /HPF (0-4)
[2021-04-27 23:09] LABS: SQUAMOUS EPITHELIAL CELL,UR FEW /LPF (FEW)
[2021-04-28] MEDS: hyDRALAzine 10mg tablet PO SCH ×4 (00:10→23:49)
[2021-04-28] MEDS: methylPREDNISolone sod succ 125mg/2ml vial IV SCH ×4 (00:10→23:48)
[2021-04-28] MEDS: vancomycin/NS 1 GM ADD-VANTAGE 250 ML IV SCH ×2 (00:11→23:49)
--- NOTE | 2021-04-28 00:19 | NUR ---
Patient transferred over to hospital bed- tolerated well. Pure wick remains in place. No requests from patient at this time.
[2021-04-28] MEDS: ipratropium 0.5 MG/2.5ML nebule IH SCH ×4 (04:01→15:08)
[2021-04-28] MEDS: levalbuterol 0.63mg/3ml nebule IH SCH ×4 (04:01→15:08)
--- NOTE | 2021-04-28 04:30 | NUR ---
Patient noted to have some urine leak around the purewick, dry pad replaced, patient able to turn side to side well. A cup of coffee also provided per request. No further needs at thsi time.
[2021-04-28] MEDS: budesonide 0.5mg/2ml UD nebule IH SCH ×2 (07:32→20:03)
[2021-04-28] MEDS: piperacillin/tazo 4.5gm/100ml 100 ML IV SCH ×2 (07:52→20:05)
[2021-04-28] MEDS: furosemide 40mg/4ml inj IV SCH ×2 (07:53→20:05)
[2021-04-28] MEDS: pantoprazole 40mg Tablet.DR PO SCH (07:53)
[2021-04-28] MEDS: ferrous sulfate 325mg tablet PO SCH (07:54)
[2021-04-28] MEDS: carVEDilol 3.125mg tablet PO SCH ×2 (07:54→20:05)
[2021-04-28] MEDS: heparin, porcine 5000 units/ml vial SQ SCH ×2 (07:54→20:05)
[2021-04-28] MEDS: amLODIPine 5mg tablet PO SCH (07:55)
[2021-04-28] MEDS: diltiazem CD 120mg capsule (once-daily) PO SCH (07:55)
[2021-04-28] MEDS: lisinopril 20mg tablet PO SCH (07:56)
[2021-04-28] MEDS: flecainide 50mg tablet PO SCH ×2 (07:56→20:05)
[2021-04-28] MEDS: lactobacillus rhamnosus 10,000 MMU CELLS/CAPSULE PO SCH ×2 (07:58→20:05)
[2021-04-28] MEDS ORDERED: Collagenase Oint* (Santyl Oint*) TOP SCH (08:00)
[2021-04-28] MEDS ORDERED: pantoprazole 40mg Tablet.DR PO SCH (08:00)
[2021-04-28] MEDS: K and/or MAG REPLACEMENT MC SCH ×2 (08:00→20:18)
[2021-04-28] MEDS ORDERED: non-formulary drug (Amlodipine Besylate 1 TAB) PO SCH (08:00)
[2021-04-28] MEDS: CALCIPOTRIENE TOP SCH ×2 (08:00→20:00)
[2021-04-28] MEDS: docusate sod 100mg capsule PO SCH ×2 (08:00→20:05)
[2021-04-28 09:52] LABS: BASOPHILS % (AUTO) 0 % (0-1); EOSINOPHILS % (AUTO) 0 % (0-6); HEMATOCRIT 33.5 % (35.0-45.0); HEMOGLOBIN 10.8 g/dl (12.0-16.0); LYMPHOCYTES # (AUTO) 0.8 X10'3 (1.1-4.8); LYMPHOCYTES % (AUTO) 8.9 % (21-51); MEAN CORPUSCULAR HEMOGLOBIN 26.9 PG (27.0-31.0); MEAN CORPUSCULAR HGB CONC 32.4 g/dL (33.0-36.5); MEAN PLATELET VOLUME 7.8 FL (7.4-10.4); MONOCYTES # (AUTO) 0.1 X10'3 (0-0.9); MONOCYTES % (AUTO) 1.5 % (2-12); NEUTROPHILS # (AUTO) 8.6 X10'3 (1.8-7.7); NEUTROPHILS % (AUTO) 89.6 % (42-75); PLATELET COUNT 427 X10'3 (140-440); RED BLOOD COUNT 4.03 X10'6 (4.20-5.60); RED CELL DISTRIBUTION WIDTH 16.6 % (11.5-14.5); WHITE BLOOD COUNT 9.6 X10'3 (4.5-11.0)
[2021-04-28] MEDS: losartan 50mg tablet PO SCH ×2 (10:03→20:06)
[2021-04-28 10:10] LABS: ALANINE AMINOTRANSFERASE 9 U/L (12-78); ALBUMIN 2.4 G/DL (3.4-5.0); ALBUMIN/GLOBULIN RATIO 0.5 (1.1-1.5); ALKALINE PHOSPHATASE 129 IU/L (46-116); ANION GAP 12 (8-16); ASPARTATE AMINO TRANSFERASE 14 U/L (10-37); BILIRUBIN,TOTAL 0.2 MG/DL (0.1-1.0); BLOOD UREA NITROGEN 17 MG/DL (7-18); BUN/CREATININE RATIO 10.8 (6.6-38.0); CALCIUM 8.2 MG/DL (8.5-10.1); CHLORIDE 104 MMOL/L (99-107); CHOL/HDL RATIO 3.9 (0.00-4.99); CHOLESTEROL 175 MG/DL (0-200); CREATININE 1.58 MG/DL (0.40-0.90); GLUCOSE 192 MG/DL (70-104); HDL CHOLESTEROL 45 MG/DL (35-60); LDL CHOLESTEROL 111 MG/DL (50-100); MAGNESIUM 1.7 MG/DL (1.5-2.4); PHOSPHORUS 3.6 MG/DL (2.3-4.5); SODIUM 148 MMOL/L (135-145); TOTAL CARBON DIOXIDE 31.8 MMOL/L (24-32); TOTAL PROTEIN 7.3 G/DL (6.4-8.2); TRIGLYCERIDES 131 MG/DL (20-135); eGFR 33 ML/MIN
[2021-04-28 10:14] LABS: POTASSIUM 2.9 MMOL/L (3.5-5.1)
--- NOTE | 2021-04-28 12:02 | NUR ---
rt at bedside ,pt underneath linen and chucks changed as it was soiled.
[2021-04-28] MEDS ORDERED: levalbuterol 0.63mg/3ml nebule IH PRN (19:00)
--- NOTE | 2021-04-28 19:11 | NUR ---
Patient was provided with dinner tray and wet linens underneath were changed- blanket replaced.
[2021-04-28] MEDS: ipratropium 0.5 MG/2.5ML nebule IH PRN (20:03)
[2021-04-28] MEDS: nystatin 15 GM powder TP SCH (20:05)
--- NOTE | 2021-04-28 20:30 | NUR ---
Patient in room PCU 3009. I have received report from Nikki GOMEZ from er by telephone and had the opportunity to ask questions and assume patient care once on unit.
[2021-04-28 22:00] VITALS: BP 145/67
[2021-04-29 02:00] VITALS: BP 164/77
[2021-04-29 06:00] VITALS: BP 150/79
--- NOTE | 2021-04-29 06:12 | NUR ---
Patient in room PCU 3009. I have received report from nova Cameron and had the opportunity to ask questions and assume patient care.
--- NOTE | 2021-04-29 07:02 | NUR ---
Problems reprioritized. Patient report given, questions answered & plan of care reviewed with Raúl GOMEZ.
[2021-04-29 07:39] LABS: BASOPHILS % (AUTO) 0 % (0-1); EOSINOPHILS % (AUTO) 0 % (0-6); HEMATOCRIT 35.5 % (35.0-45.0); HEMOGLOBIN 11.3 g/dl (12.0-16.0); LYMPHOCYTES % (AUTO) 7.9 % (21-51); MEAN CORPUSCULAR HEMOGLOBIN 26.6 PG (27.0-31.0); MEAN CORPUSCULAR HGB CONC 31.9 g/dL (33.0-36.5); MEAN CORPUSCULAR VOLUME 83.3 FL (78-98); MONOCYTES # (AUTO) 0.3 X10'3 (0-0.9); MONOCYTES % (AUTO) 2.5 % (2-12); NEUTROPHILS % (AUTO) 89.6 % (42-75); PLATELET COUNT 445 X10'3 (140-440); RED BLOOD COUNT 4.27 X10'6 (4.20-5.60); RED CELL DISTRIBUTION WIDTH 16.6 % (11.5-14.5); WHITE BLOOD COUNT 12.3 X10'3 (4.5-11.0)
[2021-04-29 08:00] LABS: ALANINE AMINOTRANSFERASE 10 U/L (12-78); ALBUMIN 2.6 G/DL (3.4-5.0); ALBUMIN/GLOBULIN RATIO 0.5 (1.1-1.5); ALKALINE PHOSPHATASE 132 IU/L (46-116); ANION GAP 10 (8-16); ASPARTATE AMINO TRANSFERASE 10 U/L (10-37); BILIRUBIN,TOTAL 0.2 MG/DL (0.1-1.0); BLOOD UREA NITROGEN 27 MG/DL (7-18); CALCIUM 8.1 MG/DL (8.5-10.1); CHLORIDE 104 MMOL/L (99-107); CREATININE 1.69 MG/DL (0.40-0.90); GLUCOSE 127 MG/DL (70-104); MAGNESIUM 2.1 MG/DL (1.5-2.4); PHOSPHORUS 3.5 MG/DL (2.3-4.5); POTASSIUM 3.1 MMOL/L (3.5-5.1); SODIUM 146 MMOL/L (135-145); TOTAL CARBON DIOXIDE 31.9 MMOL/L (24-32); TOTAL PROTEIN 7.6 G/DL (6.4-8.2); eGFR 30 ML/MIN
[2021-04-29] MEDS: K and/or MAG REPLACEMENT MC SCH ×2 (08:00→20:00)
[2021-04-29] MEDS: ipratropium 0.5 MG/2.5ML nebule IH PRN (08:15)
[2021-04-29] MEDS: budesonide 0.5mg/2ml UD nebule IH SCH ×2 (08:15→21:15)
[2021-04-29] MEDS: heparin, porcine 5000 units/ml vial SQ SCH ×2 (08:50→20:00)
[2021-04-29] MEDS: piperacillin/tazo 4.5gm/100ml 100 ML IV SCH ×2 (08:51→20:00)
[2021-04-29] MEDS: methylPREDNISolone sod succ 125mg/2ml vial IV SCH ×2 (08:51→16:07)
[2021-04-29] MEDS: furosemide 40mg/4ml inj IV SCH ×2 (08:51→20:00)
[2021-04-29] MEDS: lactobacillus rhamnosus 10,000 MMU CELLS/CAPSULE PO SCH ×2 (08:52→20:00)
[2021-04-29] MEDS: flecainide 50mg tablet PO SCH ×2 (08:52→20:00)
[2021-04-29] MEDS: losartan 50mg tablet PO SCH ×2 (08:53→20:00)
[2021-04-29] MEDS: lisinopril 20mg tablet PO SCH (08:53)
[2021-04-29] MEDS: carVEDilol 3.125mg tablet PO SCH ×2 (08:53→20:00)
[2021-04-29] MEDS: docusate sod 100mg capsule PO SCH ×2 (08:54→20:00)
[2021-04-29] MEDS: diltiazem CD 120mg capsule (once-daily) PO SCH (08:54)
[2021-04-29] MEDS: ferrous sulfate 325mg tablet PO SCH (08:54)
[2021-04-29] MEDS: potassium Cl 20 mEq SR tablet PO PRN ×2 (08:54→14:52)
[2021-04-29] MEDS: hyDRALAzine 10mg tablet PO SCH ×2 (08:54→16:07)
[2021-04-29] MEDS: amLODIPine 5mg tablet PO SCH (08:55)
[2021-04-29] MEDS: pantoprazole 40mg Tablet.DR PO SCH (09:13)
[2021-04-29] MEDS: nystatin 15 GM powder TP SCH ×3 (09:14→21:16)
[2021-04-29 11:00] VITALS: BP 167/88
[2021-04-29 15:00] VITALS: BP 145/75
[2021-04-29 18:00] VITALS: BP 172/86
--- NOTE | 2021-04-29 18:00 | NUR ---
Patient in room PCU 3009. I have received report from Samir GOMEZ and had the opportunity to ask questions and assume patient care.
--- NOTE | 2021-04-29 18:02 | NUR ---
Problems reprioritized. Patient report given, questions answered & plan of care reviewed with Chantelle Cameron.
[2021-04-29] MEDS: mineral oil/petrolatum, white cream 113gm jar TP SCH (20:00)
[2021-04-29 22:00] VITALS: BP 164/100
[2021-04-30] MEDS: vancomycin/NS 1 GM ADD-VANTAGE 250 ML IV SCH (01:00)
[2021-04-30 02:00] VITALS: BP 148/75
[2021-04-30 06:00] VITALS: BP 147/92
[2021-04-30 06:05] LABS: BASOPHILS % (AUTO) 0.1 % (0-1); EOSINOPHILS % (AUTO) 0 % (0-6); HEMOGLOBIN 11.4 g/dl (12.0-16.0); LYMPHOCYTES # (AUTO) 0.7 X10'3 (1.1-4.8); LYMPHOCYTES % (AUTO) 8.1 % (21-51); MEAN CORPUSCULAR HEMOGLOBIN 27.5 PG (27.0-31.0); MEAN CORPUSCULAR HGB CONC 32.6 g/dL (33.0-36.5); MEAN CORPUSCULAR VOLUME 84.3 FL (78-98); MEAN PLATELET VOLUME 8.1 FL (7.4-10.4); MONOCYTES # (AUTO) 0.2 X10'3 (0-0.9); MONOCYTES % (AUTO) 2.3 % (2-12); NEUTROPHILS # (AUTO) 8.1 X10'3 (1.8-7.7); NEUTROPHILS % (AUTO) 89.5 % (42-75); PLATELET COUNT 399 X10'3 (140-440); RED BLOOD COUNT 4.15 X10'6 (4.20-5.60); RED CELL DISTRIBUTION WIDTH 16.4 % (11.5-14.5); WHITE BLOOD COUNT 9.1 X10'3 (4.5-11.0)
[2021-04-30 06:19] LABS: ALANINE AMINOTRANSFERASE 11 U/L (12-78); ALBUMIN 2.7 G/DL (3.4-5.0); ALBUMIN/GLOBULIN RATIO 0.6 (1.1-1.5); ALKALINE PHOSPHATASE 112 IU/L (46-116); ANION GAP 9 (8-16); ASPARTATE AMINO TRANSFERASE 12 U/L (10-37); BILIRUBIN,TOTAL 0.3 MG/DL (0.1-1.0); BLOOD UREA NITROGEN 35 MG/DL (7-18); BUN/CREATININE RATIO 19.8 (6.6-38.0); CALCIUM 8.3 MG/DL (8.5-10.1); CHLORIDE 101 MMOL/L (99-107); CREATININE 1.77 MG/DL (0.40-0.90); GLUCOSE 132 MG/DL (70-104); MAGNESIUM 2.1 MG/DL (1.5-2.4); PHOSPHORUS 3.5 MG/DL (2.3-4.5); POTASSIUM 3.7 MMOL/L (3.5-5.1); SODIUM 142 MMOL/L (135-145); TOTAL CARBON DIOXIDE 31.6 MMOL/L (24-32); TOTAL PROTEIN 7.5 G/DL (6.4-8.2); eGFR 29 ML/MIN
--- NOTE | 2021-04-30 06:53 | NUR ---
Patient in room PCU 3009. I have received report from Chantelle camp and had the opportunity to ask questions and assume patient care.
[2021-04-30] MEDS: amLODIPine 5mg tablet PO SCH (07:16)
[2021-04-30] MEDS: diltiazem CD 120mg capsule (once-daily) PO SCH (07:16)
[2021-04-30] MEDS: piperacillin/tazo 4.5gm/100ml 100 ML IV SCH (07:16)
[2021-04-30] MEDS: hyDRALAzine 10mg tablet PO SCH ×2 (07:17)
[2021-04-30] MEDS: carVEDilol 3.125mg tablet PO SCH (07:17)
[2021-04-30] MEDS: docusate sod 100mg capsule PO SCH (07:17)
[2021-04-30] MEDS: flecainide 50mg tablet PO SCH (07:17)
[2021-04-30] MEDS: lactobacillus rhamnosus 10,000 MMU CELLS/CAPSULE PO SCH (07:17)
[2021-04-30] MEDS: pantoprazole 40mg Tablet.DR PO SCH (07:17)
[2021-04-30] MEDS: lisinopril 20mg tablet PO SCH (07:17)
[2021-04-30 07:18] VITALS: BP_SYST 147
[2021-04-30] MEDS: methylPREDNISolone sod succ 125mg/2ml vial IV SCH ×2 (07:18)
[2021-04-30] MEDS: furosemide 40mg/4ml inj IV SCH (07:18)
[2021-04-30] MEDS: heparin, porcine 5000 units/ml vial SQ SCH (07:18)
[2021-04-30] MEDS: losartan 50mg tablet PO SCH (07:18)
[2021-04-30] MEDS: nystatin 15 GM powder TP SCH (07:19)
[2021-04-30] MEDS: mineral oil/petrolatum, white cream 113gm jar TP SCH (07:19)
[2021-04-30] MEDS: ferrous sulfate 325mg tablet PO SCH (07:19)
[2021-04-30] MEDS: K and/or MAG REPLACEMENT MC SCH (07:39)
[2021-04-30] MEDS: budesonide 0.5mg/2ml UD nebule IH SCH (08:46)
[2021-04-30] MEDS ORDERED: PANT-47 PO (11:18)
[2021-04-30] MEDS ORDERED: BUDE0.5A3 NEB (11:18)
[2021-04-30] MEDS ORDERED: ATR0.5NEB NEB (11:18)
[2021-04-30] MEDS ORDERED: DOCU-22 PO (11:18)
[2021-04-30] MEDS ORDERED: POTA10TA36 PO (11:18)
[2021-04-30] MEDS ORDERED: AZIT500T2 PO (11:18)
[2021-04-30] MEDS ORDERED: FERR325T29 PO (11:18)
[2021-04-30] MEDS ORDERED: AMLO10TA13 PO (11:18)
[2021-04-30] MEDS ORDERED: CALC60OI4 TOP (11:18)
[2021-04-30] MEDS ORDERED: LOSA100T57 PO (11:18)
[2021-04-30] MEDS ORDERED: CARCD120C PO (11:18)
[2021-04-30] MEDS ORDERED: COLL30OI TOP (11:18)
[2021-04-30] MEDS ORDERED: LEVA0.6333 IH (11:18)
[2021-04-30] MEDS ORDERED: FURO20TA4 PO (11:18)
[2021-04-30] MEDS ORDERED: BUDE10.2 INH (11:18)
--- NOTE | 2021-04-30 11:19 | NUR ---
Malnutrition consult: Pt admitted w/ SOB and BLE edema. Pt denies recent weight loss, current wt is consistent w/ wt from previous admits. Pt is eating mostly 50-100% of meals meeting needs. No visible wasting observed. Pt does not meet minimum criteria for malnutrition at this time. Obtained food preferences from pt, will honor preferences. Will continue to monitor. Rec: 1. Pudding w/ lunch, cottage cheese w/ breakfast Addendum: 04/30/21 at [address] Amended: Links added.
[2021-04-30] MEDS ORDERED: FLEC50TA28 PO (11:21)
--- NOTE | 2021-04-30 13:16 | NUR ---
PT stable for discharge per MD orders. [facility]. Discharge instructions given to patient and all questions answered. PIV discontinued. Telemonitor discontinued, tech notified. Pt wheeled to lobby and discharged home with [facility] cab.
[2021-04-30] MEDS ORDERED: VANCOMYCIN LEVEL IV ONE (23:30)
== END 2021-04-30 13:00 | disposition home health service (06) | DRG 383 ==
LOC: ER 23:09 → ED HOLD 04-27 01:25 → PCU 3S 04-28 20:50
PROVIDERS: ADMIT Family Medicine; ATTEND Family Medicine
DX: L03.115 Cellulitis of right lower limb (principal); J96.01 Acute respiratory failure with hypoxia; N17.9 Acute kidney failure, unspecified; I50.33 Acute on chronic diastolic (congestive) heart failure; I13.0 Hypertensive heart and chronic kidney disease with heart failure and stage 1 through stage 4 chronic kidney disease, or unspecified chronic kidney disease; E87.0 Hyperosmolality and hypernatremia; I49.5 Sick sinus syndrome; F20.9 Schizophrenia, unspecified; J44.9 Chronic obstructive pulmonary disease, unspecified; L03.116 Cellulitis of left lower limb; Z60.2 Problems related to living alone; E87.6 Hypokalemia; D64.9 Anemia, unspecified; I16.1 Hypertensive emergency; J98.01 Acute bronchospasm; N18.9 Chronic kidney disease, unspecified; Z86.711 Personal history of pulmonary embolism; Z86.73 Personal history of transient ischemic attack (TIA), and cerebral infarction without residual deficits; Z88.8 Allergy status to other drugs, medicaments and biological substances; Z71.6 Tobacco abuse counseling; Z72.0 Tobacco use
CPT/HCPCS: 36415; 71045; 74150; 80053; 80061; 81001; 83036; 83605; 83735; 83880; 84100; 84484; 85025; 85379; 85610; 85730; 87040; 87081; 87088; 93005; 94640; 94760; 96365; 96375; 99285; G0378; J1644; J1940; J2543; J2930; J3370; J7614; J7626

== ENCOUNTER 2021-08-22 23:04 | Inpatient (IN) | payer MEDICAID ==
[~2021-08-22] VITALS: Ht 165.1 cm; Wt 88.9 kg
[~2021-08-22 23:04] MED LIST changes: +AMLO10TA13 PO; +BUDE0.5A3 NEB; +BUDE10.2 INH; -BUDE10.26 IH; +CALC60OI4 TOP; +CARCD120C PO; +CARV3.1244 PO; +COLL30OI TOP; -COR3.125T PO; -DOCU-148 PO; +DOCU-22 PO; +FERR325T29 PO; -FERR325T7 PO; +FLEC50TA28 PO; +FURO20TA4 PO; +LEVA0.6333 IH; +LOSA100T57 PO; -LOSA50TA64 PO; -NOR5T PO; -NYST60PO2 TOP; +PANT-47 PO; -PANT40TA54 PO; +POTA10TA37 PO; -TAM50T PO
[2021-08-23 00:42] LABS: BASOPHILS % (AUTO) 0.3 % (0-1); EOSINOPHILS # (AUTO) 0.1 X10'3 (0-0.9); HEMATOCRIT 36.7 % (35.0-45.0); HEMOGLOBIN 11.5 g/dl (12.0-16.0); LYMPHOCYTES % (AUTO) 10.1 % (21-51); MEAN CORPUSCULAR HEMOGLOBIN 26.3 PG (27.0-31.0); MEAN CORPUSCULAR HGB CONC 31.3 g/dL (33.0-36.5); MEAN CORPUSCULAR VOLUME 83.8 FL (78-98); MEAN PLATELET VOLUME 8.2 FL (7.4-10.4); MONOCYTES % (AUTO) 10.3 % (2-12); NEUTROPHILS # (AUTO) 7.5 X10'3 (1.8-7.7); NEUTROPHILS % (AUTO) 78.3 % (42-75); PLATELET COUNT 365 X10'3 (140-440); RED BLOOD COUNT 4.38 X10'6 (4.20-5.60); RED CELL DISTRIBUTION WIDTH 16.8 % (11.5-14.5); WHITE BLOOD COUNT 9.6 X10'3 (4.5-11.0)
[2021-08-23 00:52] LABS: ALANINE AMINOTRANSFERASE 23 U/L (12-78); ALBUMIN 2.4 G/DL (3.4-5.0); ALBUMIN/GLOBULIN RATIO 0.5 (1.1-1.5); ALKALINE PHOSPHATASE 157 IU/L (46-116); ANION GAP 8 (8-16); ASPARTATE AMINO TRANSFERASE 16 U/L (10-37); BILIRUBIN,TOTAL 0.1 MG/DL (0.1-1.0); BLOOD UREA NITROGEN 37 MG/DL (7-18); BUN/CREATININE RATIO 21.3 (6.6-38.0); CHLORIDE 110 MMOL/L (99-107); CREATININE 1.74 MG/DL (0.40-0.90); GLUCOSE 92 MG/DL (70-104); POTASSIUM 5.9 MMOL/L (3.5-5.1); SODIUM 146 MMOL/L (135-145); TOTAL CARBON DIOXIDE 28.5 MMOL/L (24-32); TOTAL PROTEIN 7.1 G/DL (6.4-8.2); eGFR 29 ML/MIN
[2021-08-23] MEDS ORDERED: potassium Cl 20 mEq SR tablet PO PRN ×2 (02:25)
[2021-08-23] MEDS ORDERED: magnesium hydroxide 30ml (MOM) UD suspension PO PRN (02:25)
[2021-08-23] MEDS ORDERED: mag hydrox/Alum hydrox/simeth 30ml oral suspension PO PRN (02:25)
[2021-08-23] MEDS ORDERED: acetaminophen 325mg tablet PO PRN (02:25)
[2021-08-23] MEDS ORDERED: magnesium Cl slow-release 64mg tablet PO PRN (02:25)
[2021-08-23] MEDS ORDERED: furosemide 40mg/4ml inj IV ONE (02:25)
[2021-08-23] MEDS ORDERED: insulin regular, human U-100 3ml vial - multi-dose IV ONE (02:25)
[2021-08-23] MEDS ORDERED: ondansetron/PF 4mg/2ml inj IV PRN (02:25)
[2021-08-23] MEDS ORDERED: dextrose 50%-water 50ml dispensing syringe IV ONE (02:25)
[2021-08-23] MEDS ORDERED: magnesium 2GM in 50ml NS 50 ML IV PRN (02:25)
[2021-08-23] MEDS ORDERED: calcium chloride 100 MG/1 ML inj IV ONE (02:25)
[2021-08-23] MEDS ORDERED: potassium CL 10mEq/100ml bag 100 ML IV PRN (02:25)
[2021-08-23] MEDS ORDERED: magnesium 4gm in 100ml NS 100 ML IV PRN (02:25)
[2021-08-23] MEDS ORDERED: CefTRIAXone 2gm/D5W 50ml BAG 50 ML IV ONE (02:35)
[2021-08-23] MEDS ORDERED: sodium bicarbonate (8.4%) inj. 1 MEQ/ML ML IV ONE (02:35)
[2021-08-23] MEDS ORDERED: levalbuterol 0.63mg/3ml nebule IH PRN ×2 (02:35→15:10)
[2021-08-23] MEDS: HYDROcodone/acetaminophen 5mg/325mg tablet PO PRN ×2 (02:44→09:22)
[2021-08-23] MEDS: levalbuterol 0.63mg/3ml nebule IH SCH ×4 (03:48→20:15)
[2021-08-23 04:02] LABS: D-DIMER 0.64 MG/L FEU (0-0.50)
[2021-08-23] MEDS: normal saline 1000ml 1,000 ML IV SCH ×2 (04:20→15:55)
[2021-08-23] MEDS: morphine 2 MG/ML inj. syringe IV PRN ×3 (05:54→21:49)
--- NOTE | 2021-08-23 06:08 | NUR ---
PT HAD A BOWEL MOVEMENT AND URINATED ON HERSELF. PT WAS THOROUGLY CLEANED, LEYVA CATHETER HAS BEEN PLACED PT IS INCAPABLE OF LETTING US KNOW WHEN SHE NEEDS TO URINATE. WOUNDS ON LEGS HAVE BEEN PROFUSELY IRRIGATED WITH SALINE WATER AND SCRUBBED WITH SOFT SCRUBS/SPONGES. PT IS ABLE TO RECALL EVENTS OF HER PAST LIFE WITH EXACT DATES, KNOWS HER CORRECT HOME ADDRESS, AND KNOWS WHERE SHE IS. SHE STATES HER PHYSICIAN OFFICE ASSISTANT HAS STOPPED TAKING CARE OF HER FOR '3 WEEKS'.
[2021-08-23 06:34] LABS: CLARITY,URINE CLOUDY (Clear); COLOR,URINE YELLOW (Yellow); GLUCOSE, URINE NEGATIVE (Neg); KETONES,URINE NEGATIVE (Neg); LEUKOCYTE ESTERASE ,URINE SMALL (Neg); NITRITES, URINE POSITIVE (Neg); OCCULT BLOOD,URINE TRACE-LYSED (Neg); PROTEIN,URINE 30 mg/dl (Neg); UROBILINOGEN,URINE 0.2 E.U/dL (0.2-1.0)
[2021-08-23 06:51] LABS: UA COLLECTION TYPE STRAIGHT CATH
[2021-08-23 06:52] LABS: BACTERIA,URINE 3+ /HPF (Neg); MUCUS STRANDS FEW /LPF (Neg); RBC,URINE 0-2 /HPF (0-2); SQUAMOUS EPITHELIAL CELL,UR MODERATE /LPF (FEW); WBC,URINE TNTC /HPF (0-4)
[2021-08-23 06:53] LABS: COARSE GRANULAR CAST 0-3 /LPF (NEGATIVE); TRANSITIONAL EPI CELLS,URINE FEW /HPF
[2021-08-23 06:54] LABS: RENAL CELLS, URINE FEW /HPF
[2021-08-23] MEDS: K and/or MAG REPLACEMENT MC SCH ×2 (08:00→20:00)
[2021-08-23] MEDS: heparin, porcine 5000 units/ml vial SQ SCH ×2 (09:23→20:00)
[2021-08-23] MEDS: doxycycline inj 100 MG in normal saline 100ml IV soln 100 ML IV SCH ×2 (10:10→21:37)
[2021-08-23 10:14] LABS: ALANINE AMINOTRANSFERASE 29 U/L (12-78); ALBUMIN 2.5 G/DL (3.4-5.0); ALBUMIN/GLOBULIN RATIO 0.5 (1.1-1.5); ALKALINE PHOSPHATASE 159 IU/L (46-116); ASPARTATE AMINO TRANSFERASE 19 U/L (10-37); BILIRUBIN,TOTAL 0.2 MG/DL (0.1-1.0); BLOOD UREA NITROGEN 35 MG/DL (7-18); CALCIUM 8.7 MG/DL (8.5-10.1); CREATININE 1.75 MG/DL (0.40-0.90); GLUCOSE 77 MG/DL (70-104); TOTAL CARBON DIOXIDE 32.7 MMOL/L (24-32); TOTAL PROTEIN 7.6 G/DL (6.4-8.2); eGFR 29 ML/MIN
[2021-08-23 11:06] LABS: ANION GAP 5 (8-16); CHLORIDE 112 MMOL/L (99-107); POTASSIUM 5.6 MMOL/L (3.5-5.1); SODIUM 150 MMOL/L (135-145)
--- NOTE | 2021-08-23 12:54 | NUR ---
relieving RN for break, pt is resting quietly on gurney, resp even, unlabored, on nasal cannula 6 liters,
--- NOTE | 2021-08-23 12:56 | NUR ---
emptied beasley of 1800ml clear, yellow urine
[2021-08-23] MEDS: vancomycin/NS 1 GM ADD-VANTAGE 250 ML X 1 DOSE IV SCH (13:00)
[2021-08-23] MEDS ORDERED: ATR0.5NEB IH (14:31)
[2021-08-23] MEDS ORDERED: CALC60OI4 TOP (14:31)
[2021-08-23] MEDS ORDERED: LOSA100T57 PO (14:37)
[2021-08-23] MEDS ORDERED: LEVA0.6319 NEB (14:37)
[2021-08-23] MEDS ORDERED: FLEC50TA28 PO (14:37)
[2021-08-23] MEDS ORDERED: FERR325T33 PO (14:37)
[2021-08-23] MEDS ORDERED: CARV3.12 PO (14:37)
[2021-08-23] MEDS ORDERED: DOCU-345 PO (14:37)
[2021-08-23] MEDS ORDERED: DILT-88 PO (14:37)
[2021-08-23] MEDS ORDERED: AMLO10TA PO (14:37)
[2021-08-23] MEDS ORDERED: FURO-150 PO (14:37)
[2021-08-23] MEDS ORDERED: PANT40TA54 PO (14:39)
[2021-08-23] MEDS ORDERED: BUDE0.5A11 NEB (14:39)
--- NOTE | 2021-08-23 18:54 | NUR ---
Problems reprioritized. Patient report given, questions answered & plan of care reviewed with Bryanna.
[2021-08-23] MEDS: docusate sod 100mg capsule PO SCH (20:00)
[2021-08-23] MEDS: lactobacillus rhamnosus 10,000 MMU CELLS/CAPSULE PO SCH (20:00)
[2021-08-23] MEDS: CALCIPOTRIENE TOP SCH (20:00)
[2021-08-23] MEDS ORDERED: CALCIPOTRIENE TOP SCH (20:00)
[2021-08-23] MEDS: budesonide 0.5mg/2ml UD nebule IH SCH (20:15)
[2021-08-23] MEDS: ipratropium 0.5 MG/2.5ML nebule IH SCH (20:15)
[2021-08-23] MEDS ORDERED: temazepam 15mg capsule PO PRN (21:00)
[2021-08-23] MEDS: flecainide 50mg tablet PO SCH (21:49)
[2021-08-23] MEDS: carVEDilol 3.125mg tablet PO SCH (21:50)
[2021-08-23] MEDS: losartan 50mg tablet PO SCH (21:51)
[2021-08-24] MEDS: levalbuterol 0.63mg/3ml nebule IH SCH ×4 (03:41→20:15)
[2021-08-24] MEDS: ipratropium 0.5 MG/2.5ML nebule IH SCH ×4 (03:41→20:15)
[2021-08-24] MEDS: morphine 2 MG/ML inj. syringe IV PRN ×3 (04:21→10:05)
[2021-08-24 06:47] VITALS: BP 106/67
[2021-08-24 06:59] LABS: BASOPHILS % (AUTO) 0.2 % (0-1); EOSINOPHILS % (AUTO) 0.1 % (0-6); HEMOGLOBIN 10.9 g/dl (12.0-16.0); LYMPHOCYTES # (AUTO) 0.5 X10'3 (1.1-4.8); LYMPHOCYTES % (AUTO) 5.6 % (21-51); MEAN PLATELET VOLUME 8.3 FL (7.4-10.4); MONOCYTES # (AUTO) 0.5 X10'3 (0-0.9); NEUTROPHILS # (AUTO) 7.8 X10'3 (1.8-7.7); NEUTROPHILS % (AUTO) 88.1 % (42-75); PLATELET COUNT 362 X10'3 (140-440); WHITE BLOOD COUNT 8.8 X10'3 (4.5-11.0)
[2021-08-24 07:22] LABS: ALANINE AMINOTRANSFERASE 25 U/L (12-78); ALBUMIN 2.1 G/DL (3.4-5.0); ALBUMIN/GLOBULIN RATIO 0.4 (1.1-1.5); ALKALINE PHOSPHATASE 138 IU/L (46-116); ANION GAP 7 (8-16); ASPARTATE AMINO TRANSFERASE 21 U/L (10-37); BILIRUBIN,TOTAL 0.2 MG/DL (0.1-1.0); BLOOD UREA NITROGEN 45 MG/DL (7-18); BUN/CREATININE RATIO 18.8 (6.6-38.0); CALCIUM 8.5 MG/DL (8.5-10.1); CHLORIDE 113 MMOL/L (99-107); CREATININE 2.39 MG/DL (0.40-0.90); GLUCOSE 67 MG/DL (70-104); SODIUM 150 MMOL/L (135-145); TOTAL CARBON DIOXIDE 29.9 MMOL/L (24-32); TOTAL PROTEIN 6.8 G/DL (6.4-8.2); eGFR 20 ML/MIN
--- NOTE | 2021-08-24 07:25 | NUR ---
Patient in room PCU 3019. I have received report from Bryanna and had the opportunity to ask questions and assume patient care.
[2021-08-24 07:29] LABS: RED BLOOD COUNT 4.04 X10'6 (4.20-5.60)
[2021-08-24 07:30] LABS: HEMATOCRIT 34.5 % (35.0-45.0); MEAN CORPUSCULAR HEMOGLOBIN 27.1 PG (27.0-31.0); MEAN CORPUSCULAR HGB CONC 31.7 g/dL (33.0-36.5); MEAN CORPUSCULAR VOLUME 85.4 FL (78-98); RED CELL DISTRIBUTION WIDTH 16.2 % (11.5-14.5)
[2021-08-24 07:31] LABS: POTASSIUM 6.7 MMOL/L (3.5-5.1)
[2021-08-24 07:46] VITALS: BP 97/42
[2021-08-24] MEDS ORDERED: furosemide 20MG tablet PO SCH (08:00)
[2021-08-24] MEDS: CALCIPOTRIENE TOP SCH ×2 (08:00→20:00)
[2021-08-24] MEDS: carVEDilol 3.125mg tablet PO SCH ×2 (08:00→20:48)
[2021-08-24] MEDS: K and/or MAG REPLACEMENT MC SCH ×2 (08:00→20:00)
[2021-08-24] MEDS: flecainide 50mg tablet PO SCH ×3 (08:00→20:49)
[2021-08-24] MEDS: mineral oil/petrolatum, white cream 113gm jar TP SCH ×2 (08:00→20:46)
[2021-08-24] MEDS: losartan 50mg tablet PO SCH (08:00)
[2021-08-24] MEDS: diltiazem CD 120mg capsule (once-daily) PO SCH (08:00)
[2021-08-24] MEDS: amLODIPine 5mg tablet PO SCH (08:00)
[2021-08-24] MEDS: budesonide 0.5mg/2ml UD nebule IH SCH ×2 (08:07→20:15)
--- NOTE | 2021-08-24 08:57 | NUR ---
PAGER ID: [phone] MESSAGE: [id number] AMINADELFINOW. K+ 6.7. WE HAVE COLLECTED A REDRAW. AWAIT RESULTS. JANICE DANIELLE
[2021-08-24] MEDS ORDERED: sodium polystyrene sulfonate 15gm/60ml oral suspension PO ONE (09:20)
[2021-08-24] MEDS ORDERED: VANCOMYCIN LEVEL IV ONE (09:27)
[2021-08-24 09:29] LABS: POTASSIUM 6.9 MMOL/L (3.5-5.1)
[2021-08-24 10:27] LABS: VANCOMYCIN,RANDOM 13.2 UG/ML
[2021-08-24 11:00] VITALS: BP 150/57
[2021-08-24] MEDS: doxycycline inj 100 MG in normal saline 100ml IV soln 100 ML IV SCH (11:08)
[2021-08-24] MEDS: docusate sod 100mg capsule PO SCH ×2 (11:11→20:48)
[2021-08-24] MEDS: normal saline 1000ml 1,000 ML IV SCH (11:22)
[2021-08-24] MEDS: lactobacillus rhamnosus 10,000 MMU CELLS/CAPSULE PO SCH ×2 (11:23→20:49)
[2021-08-24] MEDS: ferrous sulfate 325mg tablet PO SCH (11:25)
[2021-08-24] MEDS: heparin, porcine 5000 units/ml vial SQ SCH ×2 (11:28→20:48)
[2021-08-24] MEDS: pantoprazole 40mg Tablet.DR PO SCH (11:34)
[2021-08-24] MEDS ORDERED: ondansetron 4mg rapidly disintigrating tab PO PRN (13:40)
[2021-08-24] MEDS: vancomycin/NS 1 GM ADD-VANTAGE 250 ML X 1 DOSE IV SCH (14:27)
[2021-08-24] MEDS: sodium chloride 0.45% 1,000 ML IV SCH (14:29)
[2021-08-24 15:00] VITALS: BP 91/48
[2021-08-24] MEDS: CefTRIAXone/D5W-Rocephin 1gm 50 ML IV SCH (16:44)
[2021-08-24 20:00] VITALS: BP 95/43
[2021-08-24] MEDS: nystatin 15 GM powder TP SCH (20:46)
[2021-08-25] VITALS (11 sets, daily range): BP systolic 75–151; BP diastolic 38–91
[2021-08-25] MEDS: sodium chloride 0.45% 1,000 ML IV SCH (00:15)
[2021-08-25] MEDS: ipratropium 0.5 MG/2.5ML nebule IH SCH ×4 (03:07→20:37)
[2021-08-25] MEDS: levalbuterol 0.63mg/3ml nebule IH SCH ×4 (03:07→20:37)
--- NOTE | 2021-08-25 06:25 | NUR ---
Patient in room PCU 3019. I have received report from Bryanna and had the opportunity to ask questions and assume patient care.
[2021-08-25] MEDS: budesonide 0.5mg/2ml UD nebule IH SCH ×2 (07:15→20:37)
[2021-08-25 08:00] LABS: BASOPHILS % (AUTO) 0.1 % (0-1); EOSINOPHILS % (AUTO) 0.2 % (0-6); HEMATOCRIT 37.1 % (35.0-45.0); HEMOGLOBIN 10.9 g/dl (12.0-16.0); LYMPHOCYTES # (AUTO) 0.5 X10'3 (1.1-4.8); MEAN CORPUSCULAR HEMOGLOBIN 25.5 PG (27.0-31.0); MEAN CORPUSCULAR HGB CONC 29.3 g/dL (33.0-36.5); MEAN PLATELET VOLUME 8.3 FL (7.4-10.4); MONOCYTES # (AUTO) 0.9 X10'3 (0-0.9); MONOCYTES % (AUTO) 11.6 % (2-12); NEUTROPHILS % (AUTO) 81.1 % (42-75); PLATELET COUNT 330 X10'3 (140-440); RED BLOOD COUNT 4.26 X10'6 (4.20-5.60); RED CELL DISTRIBUTION WIDTH 17.7 % (11.5-14.5); WHITE BLOOD COUNT 7.5 X10'3 (4.5-11.0)
[2021-08-25] MEDS: flecainide 50mg tablet PO SCH ×2 (08:00→20:00)
[2021-08-25] MEDS: carVEDilol 3.125mg tablet PO SCH ×2 (08:00→20:00)
[2021-08-25] MEDS: CALCIPOTRIENE TOP SCH ×2 (08:00→20:00)
[2021-08-25] MEDS: amLODIPine 5mg tablet PO SCH (08:00)
[2021-08-25] MEDS: diltiazem CD 120mg capsule (once-daily) PO SCH (08:00)
[2021-08-25] MEDS: docusate sod 100mg capsule PO SCH ×3 (08:00→12:07)
[2021-08-25] MEDS: CefTRIAXone/D5W-Rocephin 1gm 50 ML IV SCH (08:26)
[2021-08-25] MEDS: nystatin 15 GM powder TP SCH ×3 (08:26→21:16)
[2021-08-25] MEDS: lactobacillus rhamnosus 10,000 MMU CELLS/CAPSULE PO SCH ×2 (08:28→12:08)
[2021-08-25] MEDS: ferrous sulfate 325mg tablet PO SCH ×2 (08:29→12:10)
[2021-08-25] MEDS: heparin, porcine 5000 units/ml vial SQ SCH ×2 (08:31→21:09)
--- NOTE | 2021-08-25 08:59 | NUR ---
Provider made aware that at 0700 patient's bp-85/36, heart rate-83. At this time 0900, bp-75/38, heart rate-81. awaiting response. Addendum: 08/25/21 at 1902 by Alicia Johansener RN Patient was seen by Dr. Beebe at 0930 with new orders for lab draws noted. Patient is arouse to name call and touch but will fall asleep immediately. She could not take any po meds or meal at the time. Noted with labored breathing, rales and wheezing. ABGs reordered at [address] Harding. At 1123, keno writer / runner made aware that patient should be transported to critical care.
[2021-08-25 09:02] LABS: ALANINE AMINOTRANSFERASE 24 U/L (12-78); ALBUMIN 2.1 G/DL (3.4-5.0); ALBUMIN/GLOBULIN RATIO 0.4 (1.1-1.5); ALKALINE PHOSPHATASE 130 IU/L (46-116); ANION GAP 9 (8-16); ASPARTATE AMINO TRANSFERASE 14 U/L (10-37); BILIRUBIN,TOTAL 0.3 MG/DL (0.1-1.0); BLOOD UREA NITROGEN 66 MG/DL (7-18); BUN/CREATININE RATIO 13.7 (6.6-38.0); CALCIUM 7.8 MG/DL (8.5-10.1); CHLORIDE 113 MMOL/L (99-107); CREATININE 4.82 MG/DL (0.40-0.90); GLUCOSE 112 MG/DL (70-104); POTASSIUM 5.8 MMOL/L (3.5-5.1); SODIUM 153 MMOL/L (135-145); TOTAL PROTEIN 6.9 G/DL (6.4-8.2); eGFR 9 ML/MIN
[2021-08-25] MEDS: pantoprazole 40mg Tablet.DR PO SCH (09:08)
[2021-08-25 09:56] LABS: ABG BASE EXCESS 1.1 mmol/L (-2.0-2.0); ABG HCO3 35.3 mmol/L (22.0-26.0); ABG OXYGEN SATURATION 95.7 % (94-97); ABG PCO2 (T) 136.5 mmHg (32.0-45.0); ABG PO2 (T) 92.3 mmHg (75.0-100.0); ALLEN'S TEST POSITIVE; FCOHb 0.9 % (0.0-3.9); FMetHb 0.2 % (0.0-1.5); FO2Hb 94.6 % (94-97); TOTAL HEMOGLOBIN 11.9 G/dl (12.0-16.0)
--- NOTE | 2021-08-25 11:23 | NUR ---
Respiratory therapist paged to do stat ABGs to patient per Dr. Harding request.
[2021-08-25 11:35] LABS: ABG BASE EXCESS -1.5 mmol/L (-2.0-2.0); ABG HCO3 30.8 mmol/L (22.0-26.0); ABG OXYGEN SATURATION 93.3 % (94-97); ABG PCO2 (T) 105.3 mmHg (32.0-45.0); ABG PO2 (T) 75.6 mmHg (75.0-100.0); ALLEN'S TEST POSITIVE; FCOHb 0.7 % (0.0-3.9); FMetHb 0.3 % (0.0-1.5); FO2Hb 92.4 % (94-97); RESPIRATORY RATE 8 b/min; TOTAL HEMOGLOBIN 11.9 G/dl (12.0-16.0)
[2021-08-25] MEDS ORDERED: DOPamine 400mg/D5W 250ml 250 ML IV ONE (11:56)
--- NOTE | 2021-08-25 12:00 | NUR ---
Patient in room ICU 2043. I have received report from Sammi GOMEZ and had the opportunity to ask questions and assume patient care.
--- NOTE | 2021-08-25 12:10 | NUR ---
Patient oriented to room. Will continue to monitor.
[2021-08-25 12:16] LABS: VANCOMYCIN,RANDOM 11.4 UG/ML
--- NOTE | 2021-08-25 12:18 | NUR ---
Problems reprioritized. Patient report given, questions answered & plan of care reviewed with Tasha.
--- NOTE | 2021-08-25 12:24 | NUR ---
Patient transferred to room 2044 per provider's order. She was transported via bed with all personal belongings by respiratory therapist and nurse.
[2021-08-25 12:58] LABS: ABG BASE EXCESS -0.2 mmol/L (-2.0-2.0); ABG HCO3 27.4 mmol/L (22.0-26.0); ABG OXYGEN SATURATION 89.2 % (94-97); ABG PCO2 (T) 59.3 mmHg (32.0-45.0); ABG PO2 (T) 53.1 mmHg (75.0-100.0); ALLEN'S TEST POSITIVE; FCOHb 0.5 % (0.0-3.9); FMetHb 0.2 % (0.0-1.5); FO2Hb 88.6 % (94-97); PEEP 5 cm H2O; RESPIRATORY RATE 22 b/min; TIDAL VOLUME 450 mL; TOTAL HEMOGLOBIN 11.5 G/dl (12.0-16.0)
[2021-08-25] MEDS: propofol 1000mg/100ml bottle 100 ML IV SCH ×2 (13:09→18:51)
--- NOTE | 2021-08-25 13:18 | NUR ---
Initial: Pt admitted w/ increasing SOB and weakness, also w/ BLE cellulitis and sepsis per EMR. Per WOC note, pt w/ multiple BLE venous ulcers, photos reviewed. Pt on Heart Healthy diet w/ low PO intake, avg 31% of 2 out of 4 meals. Pt just transferred to ICU and intubated today. LBM 08/24. Will continue to monitor need for nutrition support and make recommendations as appropriate. Recs: 1. Upon extubation advance to Heart Healthy diet as medically indicated 2. Bowel care per rx 3. Scaled wt this admit, subsequent weekly wts 4. IF prolonged intubation, continuous TF using Vital High Protein at 55ml/hr Addendum: 08/25/21 at [address] Amended: Links added.
[2021-08-25] MEDS: vancomycin/NS 1 GM ADD-VANTAGE 250 ML X 1 DOSE IV SCH (13:40)
[2021-08-25] MEDS ORDERED: furosemide 10 MG/1 ML 10ml inj IV ONE (15:05)
[2021-08-25] MEDS ORDERED: normal saline 1000ml 1,000 ML IV SCH (16:25)
[2021-08-25] MEDS: morphine 2 MG/ML inj. syringe IV PRN ×2 (17:39→21:47)
--- NOTE | 2021-08-25 18:17 | NUR ---
Problems reprioritized. Patient report given, questions answered & plan of care reviewed with Ora GOMEZ.
--- NOTE | 2021-08-25 18:30 | NUR ---
Patient in room ICU 2043. I have received report from Lina GOMEZ and had the opportunity to ask questions and assume patient care.
[2021-08-25] MEDS: famotidine 20mg tablet PO SCH (20:00)
[2021-08-25] MEDS ORDERED: famotidine 10mg tablet PO SCH (20:00)
[2021-08-26] VITALS (23 sets, daily range): BP systolic 91–125; BP diastolic 36–66
[2021-08-26] MEDS: ipratropium 0.5 MG/2.5ML nebule IH SCH ×4 (02:38→20:11)
[2021-08-26] MEDS: levalbuterol 0.63mg/3ml nebule IH SCH ×4 (02:38→20:11)
[2021-08-26] MEDS: propofol 1000mg/100ml bottle 100 ML IV SCH ×3 (03:22→20:35)
[2021-08-26 03:29] LABS: BASOPHILS % (AUTO) 0.2 % (0-1); EOSINOPHILS # (AUTO) 0.1 X10'3 (0-0.9); EOSINOPHILS % (AUTO) 1.4 % (0-6); HEMATOCRIT 30.7 % (35.0-45.0); HEMOGLOBIN 9.6 g/dl (12.0-16.0); LYMPHOCYTES % (AUTO) 15.3 % (21-51); MEAN CORPUSCULAR HEMOGLOBIN 25.5 PG (27.0-31.0); MEAN CORPUSCULAR HGB CONC 31.2 g/dL (33.0-36.5); MEAN CORPUSCULAR VOLUME 81.6 FL (78-98); MEAN PLATELET VOLUME 8.5 FL (7.4-10.4); MONOCYTES # (AUTO) 0.6 X10'3 (0-0.9); MONOCYTES % (AUTO) 9.5 % (2-12); NEUTROPHILS # (AUTO) 4.7 X10'3 (1.8-7.7); NEUTROPHILS % (AUTO) 73.6 % (42-75); PLATELET COUNT 300 X10'3 (140-440); RED BLOOD COUNT 3.76 X10'6 (4.20-5.60); RED CELL DISTRIBUTION WIDTH 17.3 % (11.5-14.5); WHITE BLOOD COUNT 6.4 X10'3 (4.5-11.0)
[2021-08-26 03:49] LABS: ALANINE AMINOTRANSFERASE 20 U/L (12-78); ALBUMIN 1.9 G/DL (3.4-5.0); ALBUMIN/GLOBULIN RATIO 0.5 (1.1-1.5); ALKALINE PHOSPHATASE 111 IU/L (46-116); ANION GAP 13 (8-16); ASPARTATE AMINO TRANSFERASE 15 U/L (10-37); BILIRUBIN,TOTAL 0.4 MG/DL (0.1-1.0); BLOOD UREA NITROGEN 74 MG/DL (7-18); BUN/CREATININE RATIO 14.7 (6.6-38.0); CALCIUM 7.8 MG/DL (8.5-10.1); CHLORIDE 115 MMOL/L (99-107); CREATININE 5.03 MG/DL (0.40-0.90); GLUCOSE 73 MG/DL (70-104); POTASSIUM 3.7 MMOL/L (3.5-5.1); TOTAL PROTEIN 6.1 G/DL (6.4-8.2); TRIGLYCERIDES 164 MG/DL (20-135); eGFR 9 ML/MIN
[2021-08-26 04:09] LABS: ABG BASE EXCESS 0.3 mmol/L (-2.0-2.0); ABG HCO3 23.4 mmol/L (22.0-26.0); ABG OXYGEN SATURATION 93.3 % (94-97); ABG PCO2 (T) 33.6 mmHg (32.0-45.0); ABG PO2 (T) 71.2 mmHg (75.0-100.0); ALLEN'S TEST POSITIVE; FCOHb 0.3 % (0.0-3.9); FMetHb 0.1 % (0.0-1.5); FO2Hb 92.9 % (94-97); PATIENT TEMPERATURE 37.9; PEEP 5 cm H2O; RESPIRATORY RATE 26 b/min; TIDAL VOLUME 450 mL; TOTAL HEMOGLOBIN 10.9 G/dl (12.0-16.0)
[2021-08-26 04:12] LABS: SODIUM 155 MMOL/L (135-145)
[2021-08-26] MEDS: acetaminophen 325mg tablet PO PRN (04:17)
[2021-08-26] MEDS: dextrose 5%-water 1,000 ML IV SCH ×2 (06:10→21:48)
--- NOTE | 2021-08-26 06:26 | NUR ---
Problems reprioritized. Patient report given, questions answered & plan of care reviewed with Eric GOMEZ.
[2021-08-26] MEDS: budesonide 0.5mg/2ml UD nebule IH SCH ×2 (07:18→20:11)
[2021-08-26] MEDS: morphine 2 MG/ML inj. syringe IV PRN (08:00)
[2021-08-26] MEDS: mineral oil/petrolatum, white cream 113gm jar TP SCH (08:00)
[2021-08-26] MEDS: docusate sod 100mg capsule PO SCH ×2 (08:00→20:39)
[2021-08-26] MEDS: CALCIPOTRIENE TOP SCH ×2 (08:00→20:00)
[2021-08-26] MEDS: lactobacillus rhamnosus 10,000 MMU CELLS/CAPSULE PO SCH ×2 (08:03→20:38)
[2021-08-26] MEDS: carVEDilol 3.125mg tablet PO SCH ×2 (08:04→20:39)
[2021-08-26] MEDS: diltiazem CD 120mg capsule (once-daily) PO SCH (08:04)
[2021-08-26] MEDS: amLODIPine 5mg tablet PO SCH (08:05)
[2021-08-26] MEDS: famotidine 20mg tablet PO SCH ×2 (08:05→20:31)
[2021-08-26] MEDS: nystatin 15 GM powder TP SCH ×3 (08:06→21:00)
[2021-08-26] MEDS: CefTRIAXone/D5W-Rocephin 1gm 50 ML IV SCH (08:06)
[2021-08-26] MEDS: heparin, porcine 5000 units/ml vial SQ SCH ×2 (08:06→20:32)
[2021-08-26] MEDS: HYDROcodone/acetaminophen 5mg/325mg tablet PO PRN (09:03)
[2021-08-26] MEDS ORDERED: midazolam 1 mg/ML 2ml injection IV ONE (09:20)
[2021-08-26] MEDS: flecainide 50mg tablet PO SCH ×2 (10:51→20:39)
[2021-08-26] MEDS ORDERED: VANCOMYCIN LEVEL IV ONE (12:30)
[2021-08-26] MEDS: vancomycin/NS 1 GM ADD-VANTAGE 250 ML X 1 DOSE IV SCH (13:36)
[2021-08-26] MEDS ORDERED: vancomycin/NS 1 GM ADD-VANTAGE 250 ML X 1 DOSE IV PRN (14:45)
[2021-08-26 15:41] LABS: TOTAL PROTEIN,URINE RANDOM 141.2 MG/DL
[2021-08-26 15:43] LABS: CLARITY,URINE CLOUDY (Clear); COLOR,URINE YELLOW (Yellow); GLUCOSE, URINE NEGATIVE (Neg); KETONES,URINE NEGATIVE (Neg); LEUKOCYTE ESTERASE ,URINE SMALL (Neg); NITRITES, URINE NEGATIVE (Neg); OCCULT BLOOD,URINE SMALL (Neg); PH,URINE 5.5 (4.8-8.0); PROTEIN,URINE 30 mg/dl (Neg); UROBILINOGEN,URINE 0.2 E.U/dL (0.2-1.0)
[2021-08-26 15:44] LABS: UA COLLECTION TYPE NON-SPECIFIED
[2021-08-26 15:50] LABS: COARSE GRANULAR CAST 0-3 /LPF (NEGATIVE); FINE GRANULAR CAST 0-3 /LPF (NEGATIVE)
[2021-08-26 15:51] LABS: MUCUS STRANDS FEW /LPF (Neg); SQUAMOUS EPITHELIAL CELL,UR FEW /LPF (FEW)
[2021-08-26 15:52] LABS: WBC,URINE 50-100 /HPF (0-4)
[2021-08-26 15:53] LABS: AMORPHOUS URATES 1+; BACTERIA,URINE FEW /HPF (Neg); RBC,URINE 0-2 /HPF (0-2); RENAL CELLS, URINE FEW /HPF; TRANSITIONAL EPI CELLS,URINE FEW /HPF
[2021-08-26 16:25] LABS: UA EOSINOPHILS NO EOS /HPF; YEAST FEW /HPF (NEGATIVE)
[2021-08-26] MEDS: dexmedetomidine/D5W 100mL 100 ML IV SCH ×2 (16:45→20:38)
[2021-08-27] VITALS (24 sets, daily range): BP systolic 92–136; BP diastolic 49–98
[2021-08-27] MEDS: ipratropium 0.5 MG/2.5ML nebule IH SCH ×4 (02:56→20:00)
[2021-08-27] MEDS: levalbuterol 0.63mg/3ml nebule IH SCH ×4 (02:56→21:00)
[2021-08-27] MEDS: VANCOMYCIN LEVEL IV SCH (03:00)
[2021-08-27 03:16] LABS: BASOPHILS % (AUTO) 0.5 % (0-1); EOSINOPHILS # (AUTO) 0.2 X10'3 (0-0.9); EOSINOPHILS % (AUTO) 3.2 % (0-6); HEMATOCRIT 32.3 % (35.0-45.0); HEMOGLOBIN 10.1 g/dl (12.0-16.0); LYMPHOCYTES # (AUTO) 1.1 X10'3 (1.1-4.8); LYMPHOCYTES % (AUTO) 21.8 % (21-51); MEAN CORPUSCULAR HEMOGLOBIN 25.2 PG (27.0-31.0); MEAN CORPUSCULAR HGB CONC 31.2 g/dL (33.0-36.5); MEAN CORPUSCULAR VOLUME 80.6 FL (78-98); MEAN PLATELET VOLUME 8.2 FL (7.4-10.4); MONOCYTES # (AUTO) 0.6 X10'3 (0-0.9); MONOCYTES % (AUTO) 11.9 % (2-12); NEUTROPHILS # (AUTO) 3.3 X10'3 (1.8-7.7); NEUTROPHILS % (AUTO) 62.6 % (42-75); PLATELET COUNT 295 X10'3 (140-440); RED CELL DISTRIBUTION WIDTH 17.4 % (11.5-14.5); WHITE BLOOD COUNT 5.2 X10'3 (4.5-11.0)
[2021-08-27 03:36] LABS: ALANINE AMINOTRANSFERASE 18 U/L (12-78); ALBUMIN 1.9 G/DL (3.4-5.0); ALBUMIN/GLOBULIN RATIO 0.4 (1.1-1.5); ALKALINE PHOSPHATASE 105 IU/L (46-116); ANION GAP 11 (8-16); ASPARTATE AMINO TRANSFERASE 15 U/L (10-37); BILIRUBIN,TOTAL 0.4 MG/DL (0.1-1.0); BLOOD UREA NITROGEN 71 MG/DL (7-18); CALCIUM 8.4 MG/DL (8.5-10.1); CHLORIDE 111 MMOL/L (99-107); CREATININE 4.18 MG/DL (0.40-0.90); GLUCOSE 109 MG/DL (70-104); POTASSIUM 3.4 MMOL/L (3.5-5.1); SODIUM 149 MMOL/L (135-145); TOTAL PROTEIN 6.4 G/DL (6.4-8.2); VANCOMYCIN,RANDOM 30.5 UG/ML; eGFR 11 ML/MIN
[2021-08-27] MEDS: propofol 1000mg/100ml bottle 100 ML IV SCH ×2 (04:48→08:10)
[2021-08-27] MEDS: dexmedetomidine/D5W 100mL 100 ML IV SCH ×4 (04:49→22:49)
[2021-08-27 04:50] LABS: ABG BASE EXCESS 0.7 mmol/L (-2.0-2.0); ABG OXYGEN SATURATION 95.8 % (94-97); ABG PCO2 (T) 28.9 mmHg (32.0-45.0); ABG PO2 (T) 75.3 mmHg (75.0-100.0); ALLEN'S TEST POSITIVE; FCOHb 0.1 % (0.0-3.9); FMetHb 0.3 % (0.0-1.5); FO2Hb 95.4 % (94-97); PATIENT TEMPERATURE 36.5; PEEP 5 cm H2O; RESPIRATORY RATE 20 b/min; TIDAL VOLUME 450 mL; TOTAL HEMOGLOBIN 11.2 G/dl (12.0-16.0)
[2021-08-27] MEDS ORDERED: dextrose 50%-water 50ml dispensing syringe IV PRN ×2 (05:25)
[2021-08-27] MEDS ORDERED: dextrose ORAL solution 15 GM/59 ML bottle PO PRN ×2 (05:25)
[2021-08-27] MEDS ORDERED: glucagon, human recombinant 1mg kit SUBCUT PRN (05:25)
[2021-08-27] MEDS ORDERED: insulin Lispro (HumaLOG) vial - multi-dose SQ SCH (05:25)
[2021-08-27] MEDS ORDERED: MESSAGE TO PHARMACY PO ONE (05:25)
[2021-08-27] MEDS: budesonide 0.5mg/2ml UD nebule IH SCH ×2 (07:36→20:00)
[2021-08-27 07:57] LABS: MAGNESIUM 2.4 MG/DL (1.5-2.4); PHOSPHORUS 4.6 MG/DL (2.3-4.5)
[2021-08-27] MEDS: CALCIPOTRIENE TOP SCH ×2 (08:00→08:11)
[2021-08-27] MEDS: carVEDilol 3.125mg tablet PO SCH ×2 (08:00→20:46)
[2021-08-27] MEDS: flecainide 50mg tablet PO SCH ×2 (08:05→20:47)
[2021-08-27] MEDS: lactobacillus rhamnosus 10,000 MMU CELLS/CAPSULE PO SCH ×2 (08:07→20:46)
[2021-08-27] MEDS: amLODIPine 5mg tablet PO SCH (08:08)
[2021-08-27] MEDS: diltiazem CD 120mg capsule (once-daily) PO SCH (08:08)
[2021-08-27] MEDS: famotidine 20mg tablet PO SCH ×2 (08:09→20:47)
[2021-08-27] MEDS: ferrous sulfate 325mg tablet PO SCH (08:09)
[2021-08-27] MEDS: heparin, porcine 5000 units/ml vial SQ SCH ×2 (08:10→20:49)
[2021-08-27] MEDS: CefTRIAXone/D5W-Rocephin 1gm 50 ML IV SCH (08:10)
[2021-08-27] MEDS: dextrose 5%-water 1,000 ML IV SCH (08:11)
[2021-08-27] MEDS: nystatin 15 GM powder TP SCH ×3 (08:11→20:50)
[2021-08-27] MEDS: mineral oil/petrolatum, white cream 113gm jar TP SCH (08:11)
--- NOTE | 2021-08-27 12:02 | NUR ---
TF Consult: Pt remains intubated MAP 64 this AM during rounds and TF to start today per director of student life; EN recs below. Noted pt receiving propofol at 2.727ml/hr providing additional 72 kcals/day and D5 at 75ml/hr providing 306 kcals/day. Propofol to be weaned today per director of student life at rounds and D5 likely to be weaned once EN/free water initiation. D5 started yesterday for serum Na 155 w/ 4.3L free water deficit per MD note. LBM 08/25 receiving routine colace. Will monitor for TF tolerance and adjustment needs as medically indicated. Recs: 1. Continuous TF per MD using Vital High Protein at 64ml/hr goal; to provide 1536ml volume/day, 1536 kcals, 1290ml water, and 134g protein. 2. additional water flush 200ml Q4H; monitor serum Na for adjustment needs 3. PALB Q /; daily wts 4. monitor for TF tolerance 5. routine bowel care 6. upon extubation; advance diet as medically indicated to heart healthy Addendum: 08/27/21 at [address] Amended: Links added.
[2021-08-27] MEDS ORDERED: potassium CL 10mEq/100ml bag 100 ML IV PRN (12:20)
[2021-08-27] MEDS: K and/or MAG REPLACEMENT MC SCH (12:20)
[2021-08-27] MEDS ORDERED: potassium Cl 20 mEq SR tablet PO PRN ×2 (12:20)
[2021-08-27] MEDS ORDERED: magnesium Cl slow-release 64mg tablet PO PRN (12:20)
[2021-08-27] MEDS ORDERED: magnesium 2GM in 50ml NS 50 ML IV PRN (12:20)
[2021-08-27] MEDS ORDERED: potassium Cl 20mEq/100mL bag 100 ML IV PRN (12:20)
[2021-08-27] MEDS ORDERED: magnesium 4gm in 100ml NS 100 ML IV PRN (12:20)
[2021-08-27] MEDS: docusate sodium 100mg/10ml UD cup PO SCH ×2 (15:21→20:45)
[2021-08-27] MEDS: insulin glargine (Lantus) pen - multi-dose SQ SCH (21:00)
[2021-08-28] VITALS (24 sets, daily range): BP systolic 94–145; BP diastolic 37–72
[2021-08-28] MEDS: dexmedetomidine/D5W 100mL 100 ML IV SCH ×2 (02:42→08:49)
[2021-08-28] MEDS: dextrose 5%-water 1,000 ML IV SCH ×2 (02:43→11:30)
[2021-08-28 02:50] LABS: BASOPHILS % (AUTO) 0.6 % (0-1); EOSINOPHILS # (AUTO) 0.2 X10'3 (0-0.9); HEMOGLOBIN 10.2 g/dl (12.0-16.0); LYMPHOCYTES % (AUTO) 19.9 % (21-51); MEAN CORPUSCULAR HEMOGLOBIN 25.3 PG (27.0-31.0); MEAN CORPUSCULAR HGB CONC 31.1 g/dL (33.0-36.5); MEAN CORPUSCULAR VOLUME 81.5 FL (78-98); MEAN PLATELET VOLUME 8.4 FL (7.4-10.4); MONOCYTES # (AUTO) 0.7 X10'3 (0-0.9); MONOCYTES % (AUTO) 13.2 % (2-12); NEUTROPHILS # (AUTO) 3.2 X10'3 (1.8-7.7); NEUTROPHILS % (AUTO) 63.3 % (42-75); PLATELET COUNT 272 X10'3 (140-440); RED BLOOD COUNT 4.05 X10'6 (4.20-5.60)
[2021-08-28] MEDS: ipratropium 0.5 MG/2.5ML nebule IH SCH ×4 (02:51→20:25)
[2021-08-28] MEDS: levalbuterol 0.63mg/3ml nebule IH SCH ×4 (02:51→20:40)
[2021-08-28] MEDS: VANCOMYCIN LEVEL IV SCH (03:00)
[2021-08-28 03:27] LABS: ALANINE AMINOTRANSFERASE 18 U/L (12-78); ALBUMIN 1.9 G/DL (3.4-5.0); ALBUMIN/GLOBULIN RATIO 0.4 (1.1-1.5); ALKALINE PHOSPHATASE 122 IU/L (46-116); ANION GAP 11 (8-16); ASPARTATE AMINO TRANSFERASE 16 U/L (10-37); BILIRUBIN,TOTAL 0.3 MG/DL (0.1-1.0); BLOOD UREA NITROGEN 59 MG/DL (7-18); BUN/CREATININE RATIO 19.9 (6.6-38.0); CALCIUM 8.1 MG/DL (8.5-10.1); CHLORIDE 109 MMOL/L (99-107); CREATININE 2.96 MG/DL (0.40-0.90); GLUCOSE 121 MG/DL (70-104); MAGNESIUM 2.2 MG/DL (1.5-2.4); POTASSIUM 4.2 MMOL/L (3.5-5.1); SODIUM 147 MMOL/L (135-145); TOTAL CARBON DIOXIDE 27.3 MMOL/L (24-32); TOTAL PROTEIN 6.4 G/DL (6.4-8.2); VANCOMYCIN,RANDOM 19.8 UG/ML; eGFR 16 ML/MIN
[2021-08-28 03:43] LABS: ABG BASE EXCESS -0.7 mmol/L (-2.0-2.0); ABG HCO3 24.9 mmol/L (22.0-26.0); ABG OXYGEN SATURATION 92.6 % (94-97); ABG PCO2 (T) 43.3 mmHg (32.0-45.0); ABG PO2 (T) 65.8 mmHg (75.0-100.0); FCOHb 0.5 % (0.0-3.9); FMetHb 0.1 % (0.0-1.5); PEEP 5 cm H2O; TOTAL HEMOGLOBIN 11.6 G/dl (12.0-16.0)
[2021-08-28] MEDS: CALCIPOTRIENE TOP SCH ×2 (08:00→20:08)
[2021-08-28] MEDS: K and/or MAG REPLACEMENT MC SCH (08:00)
[2021-08-28] MEDS: CefTRIAXone/D5W-Rocephin 1gm 50 ML IV SCH (08:49)
[2021-08-28] MEDS: amLODIPine 5mg tablet PO SCH (08:50)
[2021-08-28] MEDS: flecainide 50mg tablet PO SCH ×2 (08:52→20:00)
[2021-08-28] MEDS: lactobacillus rhamnosus 10,000 MMU CELLS/CAPSULE PO SCH ×2 (08:52→20:00)
[2021-08-28] MEDS: famotidine 20mg tablet PO SCH (08:52)
[2021-08-28] MEDS: diltiazem CD 120mg capsule (once-daily) PO SCH (08:53)
[2021-08-28] MEDS: heparin, porcine 5000 units/ml vial SQ SCH ×2 (08:53→19:39)
[2021-08-28] MEDS: carVEDilol 3.125mg tablet PO SCH ×2 (08:53→20:00)
[2021-08-28] MEDS: ferrous sulfate 325mg tablet PO SCH (08:53)
[2021-08-28] MEDS: nystatin 15 GM powder TP SCH ×3 (08:54→21:14)
[2021-08-28] MEDS: mineral oil/petrolatum, white cream 113gm jar TP SCH (08:54)
[2021-08-28] MEDS: docusate sodium 100mg/10ml UD cup PO SCH ×2 (09:03→20:00)
[2021-08-28] MEDS: budesonide 0.5mg/2ml UD nebule IH SCH ×2 (09:24→20:25)
[2021-08-28] MEDS ORDERED: ondansetron/PF 4mg/2ml inj IV PRN (17:20)
--- NOTE | 2021-08-28 18:30 | NUR ---
Patient in room ICU 2043. I have received report from Eric GOMEZ and had the opportunity to ask questions and assume patient care.
[2021-08-28] MEDS: HYDROmorphone 1 mg/ml syringe IV PRN (18:35)
[2021-08-28] MEDS ORDERED: proCHLORperazine 10 MG/2 ml inj IV PRN (19:15)
[2021-08-28] MEDS: famotidine/PF 10 mg/ml inj IV SCH (19:40)
[2021-08-28] MEDS: acetaminophen 1,000mg/100ml IV 100 ML IV SCH (19:41)
[2021-08-28 21:16] LABS: ABG BASE EXCESS -0.9 mmol/L (-2.0-2.0); ABG HCO3 31.2 mmol/L (22.0-26.0); ABG OXYGEN SATURATION 93.2 % (94-97); ABG PCO2 (T) 98.8 mmHg (32.0-45.0); ABG PO2 (T) 84.1 mmHg (75.0-100.0); ALLEN'S TEST POSITIVE; FCOHb 0.5 % (0.0-3.9); FLOW 6 L/min; FMetHb 0.3 % (0.0-1.5); FO2Hb 92.5 % (94-97); PATIENT TEMPERATURE 36.4; TOTAL HEMOGLOBIN 12.5 G/dl (12.0-16.0)
[2021-08-28 23:06] LABS: ABG BASE EXCESS 1.5 mmol/L (-2.0-2.0); ABG HCO3 32.7 mmol/L (22.0-26.0); ABG OXYGEN SATURATION 91.1 % (94-97); ABG PCO2 (T) 94.1 mmHg (32.0-45.0); ABG PO2 (T) 71.8 mmHg (75.0-100.0); ALLEN'S TEST POSITIVE; FCOHb 0.4 % (0.0-3.9); FMetHb 0.3 % (0.0-1.5); FO2Hb 90.5 % (94-97); PATIENT TEMPERATURE 36.4; TOTAL HEMOGLOBIN 11.6 G/dl (12.0-16.0)
[2021-08-29] VITALS (23 sets, daily range): BP systolic 18–139; BP diastolic 34–66
[2021-08-29] MEDS: acetaminophen 1,000mg/100ml IV 100 ML IV SCH ×3 (01:46→14:41)
[2021-08-29 02:52] LABS: MAGNESIUM 2.3 MG/DL (1.5-2.4); PREALBUMIN 15.3 MG/DL (19-36); VANCOMYCIN,RANDOM 12.6 UG/ML
[2021-08-29] MEDS: levalbuterol 0.63mg/3ml nebule IH SCH ×4 (03:00→19:52)
[2021-08-29] MEDS: ipratropium 0.5 MG/2.5ML nebule IH SCH ×4 (03:20→19:52)
[2021-08-29 03:21] LABS: BASOPHILS % (AUTO) 0.2 % (0-1); EOSINOPHILS % (AUTO) 0.6 % (0-6); HEMATOCRIT 33.1 % (35.0-45.0); HEMOGLOBIN 10.2 g/dl (12.0-16.0); LYMPHOCYTES # (AUTO) 0.7 X10'3 (1.1-4.8); LYMPHOCYTES % (AUTO) 12.9 % (21-51); MEAN CORPUSCULAR HEMOGLOBIN 25.5 PG (27.0-31.0); MEAN CORPUSCULAR HGB CONC 30.8 g/dL (33.0-36.5); MEAN CORPUSCULAR VOLUME 82.8 FL (78-98); MEAN PLATELET VOLUME 8.1 FL (7.4-10.4); MONOCYTES # (AUTO) 0.7 X10'3 (0-0.9); MONOCYTES % (AUTO) 11.7 % (2-12); NEUTROPHILS # (AUTO) 4.3 X10'3 (1.8-7.7); NEUTROPHILS % (AUTO) 74.6 % (42-75); PLATELET COUNT 222 X10'3 (140-440); RED BLOOD COUNT 3.99 X10'6 (4.20-5.60); RED CELL DISTRIBUTION WIDTH 17.2 % (11.5-14.5); WHITE BLOOD COUNT 5.8 X10'3 (4.5-11.0)
[2021-08-29] MEDS: VANCOMYCIN LEVEL IV SCH (03:30)
--- NOTE | 2021-08-29 06:18 | NUR ---
Problems reprioritized. Patient report given, questions answered & plan of care reviewed with Geovanny GOMEZ.
--- NOTE | 2021-08-29 06:30 | NUR ---
Patient in room ICU 2043. I have received report from Mateo GOMEZ and had the opportunity to ask questions and assume patient care.
[2021-08-29] MEDS: budesonide 0.5mg/2ml UD nebule IH SCH ×2 (07:07→19:52)
[2021-08-29 07:31] LABS: ABG HCO3 32.2 mmol/L (22.0-26.0); ABG OXYGEN SATURATION 93.1 % (94-97); ABG PO2 (T) 72.4 mmHg (75.0-100.0); ALLEN'S TEST POSITIVE; FCOHb 0.4 % (0.0-3.9); FMetHb 0.2 % (0.0-1.5); FO2Hb 92.5 % (94-97); TIDAL VOLUME 366 mL; TOTAL HEMOGLOBIN 11.3 G/dl (12.0-16.0)
[2021-08-29] MEDS: famotidine/PF 10 mg/ml inj IV SCH ×2 (07:31→19:38)
[2021-08-29] MEDS: heparin, porcine 5000 units/ml vial SQ SCH ×2 (07:34→19:38)
[2021-08-29] MEDS: CefTRIAXone/D5W-Rocephin 1gm 50 ML IV SCH (07:35)
[2021-08-29 07:50] LABS: ALANINE AMINOTRANSFERASE 17 U/L (12-78); ALBUMIN 1.8 G/DL (3.4-5.0); ALBUMIN/GLOBULIN RATIO 0.4 (1.1-1.5); ALKALINE PHOSPHATASE 115 IU/L (46-116); ANION GAP 6 (8-16); ASPARTATE AMINO TRANSFERASE 15 U/L (10-37); BILIRUBIN,TOTAL 0.3 MG/DL (0.1-1.0); BLOOD UREA NITROGEN 42 MG/DL (7-18); BUN/CREATININE RATIO 22.5 (6.6-38.0); CHLORIDE 111 MMOL/L (99-107); CREATININE 1.87 MG/DL (0.40-0.90); GLUCOSE 95 MG/DL (70-104); POTASSIUM 4.1 MMOL/L (3.5-5.1); SODIUM 147 MMOL/L (135-145); TOTAL CARBON DIOXIDE 30.4 MMOL/L (24-32); TOTAL PROTEIN 6.1 G/DL (6.4-8.2); eGFR 27 ML/MIN
--- NOTE | 2021-08-29 07:55 | NUR ---
Swallow Pt put on 4L NC for swallow study. Diet per Speech path who said PO meds ok with apple sauce or similar. ABG not significantly better so back on BiPAP post swallow. ABG and CMP confirmed with CN prior to ordering.
[2021-08-29] MEDS: carVEDilol 3.125mg tablet PO SCH ×2 (08:00→19:39)
[2021-08-29] MEDS: amLODIPine 5mg tablet PO SCH (08:00)
[2021-08-29] MEDS: diltiazem CD 120mg capsule (once-daily) PO SCH (08:00)
[2021-08-29] MEDS ORDERED: vancomycin/NS 1 GM ADD-VANTAGE 250 ML X 1 DOSE IV ONE (08:20)
[2021-08-29] MEDS: nystatin 15 GM powder TP SCH (08:23)
[2021-08-29] MEDS: CALCIPOTRIENE TOP SCH ×2 (08:23→20:00)
[2021-08-29] MEDS: K and/or MAG REPLACEMENT MC SCH (08:24)
[2021-08-29] MEDS: docusate sodium 100mg/10ml UD cup PO SCH ×2 (08:25→20:00)
[2021-08-29] MEDS: lactobacillus rhamnosus 10,000 MMU CELLS/CAPSULE PO SCH ×2 (08:25→19:39)
[2021-08-29] MEDS: mineral oil/petrolatum, white cream 113gm jar TP SCH (08:26)
[2021-08-29] MEDS: ferrous sulfate 325mg tablet PO SCH (08:26)
[2021-08-29] MEDS: flecainide 50mg tablet PO SCH ×2 (08:27→19:39)
[2021-08-29] MEDS ORDERED: furosemide 40mg/4ml inj IV ONE (10:50)
--- NOTE | 2021-08-29 11:26 | NUR ---
F/u 08/29: Pt extubated now requiring Bipap unable to tolerate much PO per RN. Pt advanced to pureed/thin/renal diet per ADVERTISING SOLICITOR/MD recs; would benefit from liberalization to regular/pureed until PO capabilities ensured. LBM 08/25 receiving routine colace as well as iron; would benefit from additional bowel care. Will continue to monitor for PO trends and additional nutrition intervention needs. Recs: 1. Continue renal/pureed/thin diet per ADVERTISING SOLICITOR/MD; consider liberalizing to regular until PO capabilities ensured on bipap 2. monitor PO tolerance on bipap; consider Ensure Enlive TIDWM IF only able to consume mostly liquids given respiratory status 3. routine bowel care; 4 days constipation 4. weekly wts Addendum: 08/29/21 at [address] Amended: Links added.
--- NOTE | 2021-08-29 15:02 | NUR ---
WOUND INFECTION EDUCATION PROVIDED BY WOUND CARE 1. Patient instructed to call their primary doctor, or go the ED immediately if any of the following symptoms occur: * Increased pain in wound * Increase in drainage from the wound * Redness in the skin surrounding the wound * Warmth in the skin surrounding the wound * Bleeding from the wound * Temperature of 101 or greater 2. If any of these occur while in the hospital tell a nurse immediately. Addendum: 08/29/21 at 1502 by Sharif Stanley RN Amended: Links added.
--- NOTE | 2021-08-29 17:40 | NUR ---
Dinner Pt ate after BS of 79. Carb count is approximately: Soup 7 + [place] 3 + Soda 20 + Mousse 10 = 40 gm carbs for dinner. Not additional tx provided for BS after discussion w/CN.
--- NOTE | 2021-08-29 18:22 | NUR ---
Problems reprioritized. Patient report given, questions answered & plan of care reviewed with Ora GOMEZ.
[2021-08-29] MEDS: furosemide 40mg tablet PO SCH (19:39)
[2021-08-30] VITALS (23 sets, daily range): BP systolic 101–142; BP diastolic 46–70
[2021-08-30] MEDS: acetaminophen 325mg tablet PO PRN (01:40)
[2021-08-30] MEDS: ipratropium 0.5 MG/2.5ML nebule IH SCH ×4 (02:20→20:50)
[2021-08-30] MEDS: levalbuterol 0.63mg/3ml nebule IH SCH ×4 (02:20→20:50)
[2021-08-30 03:11] LABS: BASOPHILS % (AUTO) 0.4 % (0-1); EOSINOPHILS # (AUTO) 0.2 X10'3 (0-0.9); EOSINOPHILS % (AUTO) 3.1 % (0-6); HEMATOCRIT 32.7 % (35.0-45.0); HEMOGLOBIN 10.1 g/dl (12.0-16.0); LYMPHOCYTES # (AUTO) 0.7 X10'3 (1.1-4.8); LYMPHOCYTES % (AUTO) 12.2 % (21-51); MEAN CORPUSCULAR HEMOGLOBIN 25.4 PG (27.0-31.0); MEAN CORPUSCULAR HGB CONC 30.8 g/dL (33.0-36.5); MEAN CORPUSCULAR VOLUME 82.4 FL (78-98); MEAN PLATELET VOLUME 8.4 FL (7.4-10.4); MONOCYTES # (AUTO) 0.6 X10'3 (0-0.9); MONOCYTES % (AUTO) 9.9 % (2-12); NEUTROPHILS # (AUTO) 4.2 X10'3 (1.8-7.7); NEUTROPHILS % (AUTO) 74.4 % (42-75); PLATELET COUNT 224 X10'3 (140-440); RED BLOOD COUNT 3.96 X10'6 (4.20-5.60); RED CELL DISTRIBUTION WIDTH 16.8 % (11.5-14.5); WHITE BLOOD COUNT 5.6 X10'3 (4.5-11.0)
[2021-08-30 03:36] LABS: MAGNESIUM 1.9 MG/DL (1.5-2.4); VANCOMYCIN,RANDOM 30.1 UG/ML
[2021-08-30] MEDS: VANCOMYCIN LEVEL IV SCH (06:00)
--- NOTE | 2021-08-30 06:24 | NUR ---
Patient in room ICU 2043. I have received report from Mateo GOMEZ and had the opportunity to ask questions and assume patient care. Pt semi fowlers in bed, limbs supported with pillows, Bipap in place. cheast rising and falling evenly. no s/sx acute distress. safety measures in place.
--- NOTE | 2021-08-30 06:25 | NUR ---
Problems reprioritized. Patient report given, questions answered & plan of care reviewed with Mecca GOMEZ.
[2021-08-30] MEDS: nystatin 15 GM powder TP SCH ×3 (08:00→20:44)
[2021-08-30] MEDS: K and/or MAG REPLACEMENT MC SCH (08:00)
[2021-08-30] MEDS: docusate sodium 100mg/10ml UD cup PO SCH ×3 (08:00→20:00)
[2021-08-30] MEDS: carVEDilol 3.125mg tablet PO SCH ×2 (08:16→20:43)
[2021-08-30] MEDS: lactobacillus rhamnosus 10,000 MMU CELLS/CAPSULE PO SCH ×2 (08:16→20:43)
[2021-08-30] MEDS: furosemide 40mg tablet PO SCH ×2 (08:16→20:43)
[2021-08-30] MEDS: diltiazem CD 120mg capsule (once-daily) PO SCH (08:16)
[2021-08-30] MEDS: flecainide 50mg tablet PO SCH ×2 (08:16→20:43)
[2021-08-30] MEDS: famotidine/PF 10 mg/ml inj IV SCH (08:17)
[2021-08-30] MEDS: ferrous sulfate 325mg tablet PO SCH (08:17)
[2021-08-30] MEDS: amLODIPine 5mg tablet PO SCH (08:17)
[2021-08-30] MEDS: heparin, porcine 5000 units/ml vial SQ SCH ×2 (08:17→20:44)
[2021-08-30] MEDS: CefTRIAXone/D5W-Rocephin 1gm 50 ML IV SCH (08:18)
[2021-08-30] MEDS: mineral oil/petrolatum, white cream 113gm jar TP SCH (08:19)
[2021-08-30 08:21] LABS: ALBUMIN 2.2 G/DL (3.4-5.0); ANION GAP 7 (8-16); BLOOD UREA NITROGEN 35 MG/DL (7-18); BUN/CREATININE RATIO 19.2 (6.6-38.0); CALCIUM 8.6 MG/DL (8.5-10.1); CHLORIDE 108 MMOL/L (99-107); CREATININE 1.82 MG/DL (0.40-0.90); GLUCOSE 86 MG/DL (70-104); POTASSIUM 3.6 MMOL/L (3.5-5.1); SODIUM 145 MMOL/L (135-145); TOTAL CARBON DIOXIDE 29.6 MMOL/L (24-32); eGFR 28 ML/MIN
[2021-08-30] MEDS: budesonide 0.5mg/2ml UD nebule IH SCH ×2 (08:46→20:50)
[2021-08-30] MEDS: HYDROmorphone 1 mg/ml syringe IV PRN (09:34)
[2021-08-30] MEDS ORDERED: HYDROcodone/acetaminophen 5mg/325mg tablet PO PRN (10:45)
[2021-08-30 11:19] LABS: PHOSPHORUS 3.7 MG/DL (2.3-4.5)
[2021-08-30] MEDS: NUT.TX.IMP.RENAL FXN,LAC-REDUC (Nepro) 237 ML VANILLA PO SCH ×2 (13:00→18:02)
--- NOTE | 2021-08-30 18:16 | NUR ---
Problems reprioritized. Patient report given, questions answered & plan of care reviewed with Zeeshan GOMEZ. Pt semi flowlers in bed, working on her dinner. no sob. no s/sx acute distress
[2021-08-30] MEDS: famotidine 20mg tablet PO SCH (20:43)
[2021-08-30] MEDS: insulin glargine (Lantus) pen - multi-dose SQ SCH (20:55)
--- NOTE | 2021-08-30 22:30 | NUR ---
Patient in room PCU 3022. I have received report from Neck RN and had the opportunity to ask questions and assume patient care.
--- NOTE | 2021-08-30 22:36 | NUR ---
Report called to receiving nurse. Transferred via bed Belongings . Special Issues communicated to receiving nurse.
[2021-08-31 02:00] VITALS: BP 143/66
[2021-08-31] MEDS: VANCOMYCIN LEVEL IV SCH (03:51)
[2021-08-31] MEDS: levalbuterol 0.63mg/3ml nebule IH SCH ×4 (03:55→20:05)
[2021-08-31] MEDS: ipratropium 0.5 MG/2.5ML nebule IH SCH ×4 (03:55→20:05)
[2021-08-31 04:21] LABS: ALBUMIN 2.3 G/DL (3.4-5.0); ANION GAP 1 (8-16); BLOOD UREA NITROGEN 26 MG/DL (7-18); BUN/CREATININE RATIO 15.5 (6.6-38.0); CALCIUM 8.8 MG/DL (8.5-10.1); CHLORIDE 106 MMOL/L (99-107); CREATININE 1.68 MG/DL (0.40-0.90); GLUCOSE 86 MG/DL (70-104); MAGNESIUM 1.6 MG/DL (1.5-2.4); POTASSIUM 3.3 MMOL/L (3.5-5.1); SODIUM 144 MMOL/L (135-145); TOTAL CARBON DIOXIDE 36.6 MMOL/L (24-32); VANCOMYCIN,RANDOM 19.1 UG/ML; eGFR 30 ML/MIN
--- NOTE | 2021-08-31 06:11 | NUR ---
Problems reprioritized. Patient report given Renita GOMEZ, questions answered & plan of care reviewed with .
[2021-08-31 07:00] VITALS: BP 147/70
[2021-08-31 07:12] LABS: BASOPHILS % (AUTO) 0.2 % (0-1); EOSINOPHILS # (AUTO) 0.2 X10'3 (0-0.9); EOSINOPHILS % (AUTO) 2.9 % (0-6); HEMOGLOBIN 10.6 g/dl (12.0-16.0); LYMPHOCYTES # (AUTO) 1.1 X10'3 (1.1-4.8); LYMPHOCYTES % (AUTO) 18.8 % (21-51); MEAN CORPUSCULAR HEMOGLOBIN 25.4 PG (27.0-31.0); MEAN CORPUSCULAR VOLUME 81.8 FL (78-98); MEAN PLATELET VOLUME 8.8 FL (7.4-10.4); MONOCYTES # (AUTO) 0.7 X10'3 (0-0.9); MONOCYTES % (AUTO) 11.9 % (2-12); NEUTROPHILS # (AUTO) 3.8 X10'3 (1.8-7.7); NEUTROPHILS % (AUTO) 66.2 % (42-75); PLATELET COUNT 252 X10'3 (140-440); RED BLOOD COUNT 4.16 X10'6 (4.20-5.60); RED CELL DISTRIBUTION WIDTH 16.4 % (11.5-14.5); WHITE BLOOD COUNT 5.8 X10'3 (4.5-11.0)
[2021-08-31] MEDS: NUT.TX.IMP.RENAL FXN,LAC-REDUC (Nepro) 237 ML VANILLA PO SCH ×5 (08:00→20:00)
[2021-08-31] MEDS: docusate sodium 100mg/10ml UD cup PO SCH ×2 (08:00→20:00)
[2021-08-31] MEDS: carVEDilol 3.125mg tablet PO SCH ×2 (08:02→22:24)
[2021-08-31] MEDS: ferrous sulfate 325mg tablet PO SCH (08:02)
[2021-08-31] MEDS: lactobacillus rhamnosus 10,000 MMU CELLS/CAPSULE PO SCH ×2 (08:03→22:23)
[2021-08-31] MEDS: famotidine 20mg tablet PO SCH ×2 (08:03→22:24)
[2021-08-31] MEDS: diltiazem CD 120mg capsule (once-daily) PO SCH (08:03)
[2021-08-31] MEDS: flecainide 50mg tablet PO SCH ×2 (08:03→22:23)
[2021-08-31] MEDS: furosemide 40mg tablet PO SCH ×2 (08:06→22:24)
[2021-08-31] MEDS: amLODIPine 5mg tablet PO SCH (08:06)
[2021-08-31] MEDS: heparin, porcine 5000 units/ml vial SQ SCH ×2 (08:06→22:27)
[2021-08-31] MEDS: CefTRIAXone/D5W-Rocephin 1gm 50 ML IV SCH (08:07)
[2021-08-31] MEDS: mineral oil/petrolatum, white cream 113gm jar TP SCH (08:13)
[2021-08-31] MEDS: nystatin 15 GM powder TP SCH ×3 (08:14→21:00)
[2021-08-31] MEDS: budesonide 0.5mg/2ml UD nebule IH SCH ×2 (09:25→20:05)
[2021-08-31 11:00] VITALS: BP 129/58
[2021-08-31 15:00] VITALS: BP 136/61
[2021-08-31 18:00] VITALS: BP 134/54
[2021-08-31] MEDS: insulin glargine (Lantus) pen - multi-dose SQ SCH ×2 (19:46→21:00)
[2021-08-31 22:00] VITALS: BP 154/62
[2021-09-01 02:00] VITALS: BP 158/53
[2021-09-01] MEDS: NUT.TX.IMP.RENAL FXN,LAC-REDUC (Nepro) 237 ML VANILLA PO SCH ×2 (02:01→02:02)
[2021-09-01] MEDS: levalbuterol 0.63mg/3ml nebule IH SCH ×4 (03:00→20:17)
[2021-09-01] MEDS: VANCOMYCIN LEVEL IV SCH (03:00)
[2021-09-01] MEDS: ipratropium 0.5 MG/2.5ML nebule IH SCH ×4 (03:27→20:18)
[2021-09-01 06:41] LABS: BASOPHILS % (AUTO) 0.3 % (0-1); EOSINOPHILS # (AUTO) 0.1 X10'3 (0-0.9); EOSINOPHILS % (AUTO) 2.5 % (0-6); HEMATOCRIT 35.7 % (35.0-45.0); HEMOGLOBIN 11.2 g/dl (12.0-16.0); LYMPHOCYTES % (AUTO) 18.9 % (21-51); MEAN CORPUSCULAR HEMOGLOBIN 25.3 PG (27.0-31.0); MEAN CORPUSCULAR HGB CONC 31.3 g/dL (33.0-36.5); MEAN PLATELET VOLUME 8.5 FL (7.4-10.4); MONOCYTES # (AUTO) 0.7 X10'3 (0-0.9); MONOCYTES % (AUTO) 12.6 % (2-12); NEUTROPHILS # (AUTO) 3.5 X10'3 (1.8-7.7); NEUTROPHILS % (AUTO) 65.7 % (42-75); PLATELET COUNT 258 X10'3 (140-440); RED BLOOD COUNT 4.41 X10'6 (4.20-5.60); RED CELL DISTRIBUTION WIDTH 16.9 % (11.5-14.5); WHITE BLOOD COUNT 5.3 X10'3 (4.5-11.0)
[2021-09-01 07:00] VITALS: BP 125/71
[2021-09-01 07:14] LABS: MAGNESIUM 1.7 MG/DL (1.5-2.4)
[2021-09-01] MEDS: budesonide 0.5mg/2ml UD nebule IH SCH ×2 (07:53→20:18)
[2021-09-01] MEDS: docusate sodium 100mg/10ml UD cup PO SCH ×2 (08:00→22:27)
[2021-09-01 08:02] LABS: ALANINE AMINOTRANSFERASE 15 U/L (12-78); ALBUMIN 2.4 G/DL (3.4-5.0); ALBUMIN/GLOBULIN RATIO 0.5 (1.1-1.5); ALKALINE PHOSPHATASE 128 IU/L (46-116); ANION GAP 2 (8-16); ASPARTATE AMINO TRANSFERASE 15 U/L (10-37); BILIRUBIN,TOTAL 0.3 MG/DL (0.1-1.0); BLOOD UREA NITROGEN 23 MG/DL (7-18); BUN/CREATININE RATIO 13.1 (6.6-38.0); CALCIUM 8.8 MG/DL (8.5-10.1); CHLORIDE 103 MMOL/L (99-107); CREATININE 1.75 MG/DL (0.40-0.90); GLUCOSE 85 MG/DL (70-104); POTASSIUM 3.6 MMOL/L (3.5-5.1); SODIUM 141 MMOL/L (135-145); TOTAL CARBON DIOXIDE 35.9 MMOL/L (24-32); TOTAL PROTEIN 7.3 G/DL (6.4-8.2); eGFR 29 ML/MIN
[2021-09-01] MEDS: heparin, porcine 5000 units/ml vial SQ SCH ×2 (08:59→22:27)
[2021-09-01] MEDS: ferrous sulfate 325mg tablet PO SCH (08:59)
[2021-09-01] MEDS: diltiazem CD 120mg capsule (once-daily) PO SCH (09:00)
[2021-09-01] MEDS: lactobacillus rhamnosus 10,000 MMU CELLS/CAPSULE PO SCH ×2 (09:00→22:28)
[2021-09-01] MEDS: flecainide 50mg tablet PO SCH ×2 (09:00→22:28)
[2021-09-01] MEDS: famotidine 20mg tablet PO SCH ×2 (09:00→22:28)
[2021-09-01] MEDS: furosemide 40mg tablet PO SCH ×2 (09:00→22:28)
[2021-09-01] MEDS: carVEDilol 3.125mg tablet PO SCH ×2 (09:00→22:28)
[2021-09-01] MEDS: amLODIPine 5mg tablet PO SCH (09:01)
[2021-09-01] MEDS: nystatin 15 GM powder TP SCH ×4 (09:02→21:00)
[2021-09-01] MEDS: mineral oil/petrolatum, white cream 113gm jar TP SCH (09:02)
[2021-09-01] MEDS: CefTRIAXone/D5W-Rocephin 1gm 50 ML IV SCH (09:12)
[2021-09-01 10:06] LABS: VANCOMYCIN,RANDOM 10.5 UG/ML
[2021-09-01 11:00] VITALS: BP 133/69
[2021-09-01] MEDS ORDERED: vancomycin/NS 1 GM ADD-VANTAGE 250 ML X 1 DOSE IV ONE (11:07)
--- NOTE | 2021-09-01 11:09 | NUR ---
F/u 09/01: Pt no longer requires BiPAP, only on 1.5L NC per documentation. Pt continues on Puree diet per BRIM STITCHER recs, now w/ Heart Healthy. Pt meal intake is low, avg 20% x 5 documented meals not meeting needs. Recommend liberalize to Regular diet if MD agreeable. Nepro TID has been ordered per MD and pt has consumed avg 53% x 7 ONS. Overall meeting 84% of est energy needs and 54% of est protein needs. Recommend continue w/ Nepro TID as it has more calories than Ensure Enlive. LBM 08/30 receiving routine colace. Will continue to monitor and make recommendations as appropriate. Recs: 1. Continue Puree diet per BRIM STITCHER, liberalize to Regular diet if MD agreeable 2. Nepro TID 3. routine bowel care 4. weekly wts Addendum: 09/01/21 at [address] Amended: Links added.
[2021-09-01 14:28] LABS: BASOPHILS % (AUTO) 0.4 % (0-1); EOSINOPHILS # (AUTO) 0.1 X10'3 (0-0.9); EOSINOPHILS % (AUTO) 2.1 % (0-6); HEMATOCRIT 38.1 % (35.0-45.0); LYMPHOCYTES % (AUTO) 16.7 % (21-51); MEAN CORPUSCULAR HEMOGLOBIN 25.5 PG (27.0-31.0); MEAN CORPUSCULAR HGB CONC 31.6 g/dL (33.0-36.5); MEAN CORPUSCULAR VOLUME 80.7 FL (78-98); MEAN PLATELET VOLUME 8.9 FL (7.4-10.4); MONOCYTES # (AUTO) 0.6 X10'3 (0-0.9); MONOCYTES % (AUTO) 9.6 % (2-12); NEUTROPHILS # (AUTO) 4.4 X10'3 (1.8-7.7); NEUTROPHILS % (AUTO) 71.2 % (42-75); PLATELET COUNT 269 X10'3 (140-440); RED BLOOD COUNT 4.72 X10'6 (4.20-5.60); RED CELL DISTRIBUTION WIDTH 16.6 % (11.5-14.5); WHITE BLOOD COUNT 6.2 X10'3 (4.5-11.0)
[2021-09-01 14:40] LABS: ALANINE AMINOTRANSFERASE 18 U/L (12-78); ALBUMIN 2.6 G/DL (3.4-5.0); ALBUMIN/GLOBULIN RATIO 0.5 (1.1-1.5); ALKALINE PHOSPHATASE 138 IU/L (46-116); ANION GAP 6 (8-16); ASPARTATE AMINO TRANSFERASE 13 U/L (10-37); BILIRUBIN,TOTAL 0.3 MG/DL (0.1-1.0); BLOOD UREA NITROGEN 24 MG/DL (7-18); BUN/CREATININE RATIO 13.5 (6.6-38.0); CALCIUM 9.1 MG/DL (8.5-10.1); CHLORIDE 102 MMOL/L (99-107); CREATININE 1.78 MG/DL (0.40-0.90); GLUCOSE 97 MG/DL (70-104); MAGNESIUM 1.9 MG/DL (1.5-2.4); SODIUM 143 MMOL/L (135-145); TOTAL CARBON DIOXIDE 35.1 MMOL/L (24-32); TOTAL PROTEIN 7.9 G/DL (6.4-8.2); eGFR 29 ML/MIN
[2021-09-01 15:00] VITALS: BP 133/69
--- NOTE | 2021-09-01 15:03 | NUR ---
Dressing change performed to rt leg, cream applied to leg powder applied to folds as ordered. Patient tolerated well.
[2021-09-01 18:00] VITALS: BP 111/65
[2021-09-01] MEDS: insulin glargine (Lantus) pen - multi-dose SQ SCH (21:00)
[2021-09-01 22:00] VITALS: BP 103/69
[2021-09-02 02:00] VITALS: BP 116/56
[2021-09-02] MEDS: ipratropium 0.5 MG/2.5ML nebule IH SCH ×4 (03:58→20:47)
[2021-09-02] MEDS: levalbuterol 0.63mg/3ml nebule IH SCH ×4 (03:58→20:47)
[2021-09-02 06:45] LABS: BASOPHILS % (AUTO) 0.4 % (0-1); EOSINOPHILS # (AUTO) 0.2 X10'3 (0-0.9); EOSINOPHILS % (AUTO) 3.5 % (0-6); HEMOGLOBIN 11.6 g/dl (12.0-16.0); LYMPHOCYTES % (AUTO) 17.7 % (21-51); MEAN CORPUSCULAR HEMOGLOBIN 25.4 PG (27.0-31.0); MEAN CORPUSCULAR HGB CONC 31.5 g/dL (33.0-36.5); MEAN CORPUSCULAR VOLUME 80.8 FL (78-98); MEAN PLATELET VOLUME 9.2 FL (7.4-10.4); MONOCYTES # (AUTO) 0.6 X10'3 (0-0.9); MONOCYTES % (AUTO) 10.8 % (2-12); NEUTROPHILS # (AUTO) 3.6 X10'3 (1.8-7.7); NEUTROPHILS % (AUTO) 67.6 % (42-75); PLATELET COUNT 291 X10'3 (140-440); RED BLOOD COUNT 4.58 X10'6 (4.20-5.60); RED CELL DISTRIBUTION WIDTH 17.1 % (11.5-14.5); WHITE BLOOD COUNT 5.4 X10'3 (4.5-11.0)
[2021-09-02 07:00] VITALS: BP 119/53
[2021-09-02 07:10] LABS: ALANINE AMINOTRANSFERASE 13 U/L (12-78); ALBUMIN 2.4 G/DL (3.4-5.0); ALBUMIN/GLOBULIN RATIO 0.5 (1.1-1.5); ALKALINE PHOSPHATASE 121 IU/L (46-116); ANION GAP 7 (8-16); ASPARTATE AMINO TRANSFERASE 15 U/L (10-37); BILIRUBIN,TOTAL 0.3 MG/DL (0.1-1.0); BLOOD UREA NITROGEN 26 MG/DL (7-18); BUN/CREATININE RATIO 13.8 (6.6-38.0); CHLORIDE 105 MMOL/L (99-107); CREATININE 1.88 MG/DL (0.40-0.90); GLUCOSE 90 MG/DL (70-104); SODIUM 147 MMOL/L (135-145); TOTAL CARBON DIOXIDE 35.1 MMOL/L (24-32); TOTAL PROTEIN 7.1 G/DL (6.4-8.2); TRIGLYCERIDES 228 MG/DL (20-135); VANCOMYCIN,RANDOM 20.6 UG/ML; eGFR 27 ML/MIN
--- NOTE | 2021-09-02 07:17 | NUR ---
Ambulating in hallway with PT using walker, tolerating well.
[2021-09-02] MEDS: budesonide 0.5mg/2ml UD nebule IH SCH ×2 (08:00→20:46)
[2021-09-02] MEDS: docusate sodium 100mg/10ml UD cup PO SCH ×2 (08:00→20:00)
[2021-09-02] MEDS: flecainide 50mg tablet PO SCH ×2 (08:49→20:39)
[2021-09-02] MEDS: ferrous sulfate 325mg tablet PO SCH (08:49)
[2021-09-02] MEDS: furosemide 40mg tablet PO SCH ×2 (08:49→20:00)
[2021-09-02] MEDS: lactobacillus rhamnosus 10,000 MMU CELLS/CAPSULE PO SCH ×2 (08:49→20:36)
[2021-09-02] MEDS: famotidine 20mg tablet PO SCH ×2 (08:50→20:36)
[2021-09-02] MEDS: carVEDilol 3.125mg tablet PO SCH ×2 (08:50→20:36)
[2021-09-02] MEDS: diltiazem CD 120mg capsule (once-daily) PO SCH (08:50)
[2021-09-02] MEDS: amLODIPine 5mg tablet PO SCH (08:50)
[2021-09-02] MEDS: CefTRIAXone/D5W-Rocephin 1gm 50 ML IV SCH (08:51)
[2021-09-02] MEDS: NUT.TX.IMP.RENAL FXN,LAC-REDUC (Nepro) 237 ML VANILLA PO SCH ×3 (08:51→18:00)
[2021-09-02] MEDS: mineral oil/petrolatum, white cream 113gm jar TP SCH (08:52)
[2021-09-02] MEDS: heparin, porcine 5000 units/ml vial SQ SCH ×2 (08:52→20:38)
[2021-09-02] MEDS: nystatin 15 GM powder TP SCH ×2 (08:52→21:00)
[2021-09-02] MEDS ORDERED: LEVO500T90 PO (10:43)
[2021-09-02 11:00] VITALS: BP 92/74
[2021-09-02] MEDS ORDERED: vancomycin inj. 750 MG in normal saline 250ml IV soln 250 ML IV SCH (14:00)
[2021-09-02 15:00] VITALS: BP 100/78
--- NOTE | 2021-09-02 16:51 | NUR ---
unable to find patient safe transport home, paged Dr. Diaz to inform him that patient did not discharge.
[2021-09-02 18:00] VITALS: BP 133/92
[2021-09-02 22:00] VITALS: BP 114/71
[2021-09-03 02:00] VITALS: BP 115/51
[2021-09-03] MEDS: levalbuterol 0.63mg/3ml nebule IH SCH ×2 (02:38→09:20)
[2021-09-03] MEDS: ipratropium 0.5 MG/2.5ML nebule IH SCH ×2 (02:38→09:20)
[2021-09-03 06:00] VITALS: BP 123/62
[2021-09-03] MEDS: NUT.TX.IMP.RENAL FXN,LAC-REDUC (Nepro) 237 ML VANILLA PO SCH (08:00)
[2021-09-03] MEDS: docusate sodium 100mg/10ml UD cup PO SCH (08:00)
[2021-09-03] MEDS: lactobacillus rhamnosus 10,000 MMU CELLS/CAPSULE PO SCH (08:24)
[2021-09-03] MEDS: carVEDilol 3.125mg tablet PO SCH (08:25)
[2021-09-03 08:26] VITALS: BP_SYST 137
[2021-09-03] MEDS: diltiazem CD 120mg capsule (once-daily) PO SCH (08:26)
[2021-09-03] MEDS: amLODIPine 5mg tablet PO SCH (08:26)
[2021-09-03] MEDS: furosemide 40mg tablet PO SCH (08:26)
[2021-09-03] MEDS: famotidine 20mg tablet PO SCH (08:27)
[2021-09-03] MEDS: ferrous sulfate 325mg tablet PO SCH (08:27)
[2021-09-03] MEDS: CefTRIAXone/D5W-Rocephin 1gm 50 ML IV SCH (08:27)
[2021-09-03] MEDS: mineral oil/petrolatum, white cream 113gm jar TP SCH (08:28)
[2021-09-03] MEDS: heparin, porcine 5000 units/ml vial SQ SCH (08:28)
[2021-09-03] MEDS: nystatin 15 GM powder TP SCH (08:28)
[2021-09-03] MEDS: flecainide 50mg tablet PO SCH (08:29)
[2021-09-03 08:33] LABS: BASOPHILS % (AUTO) 0.5 % (0-1); EOSINOPHILS # (AUTO) 0.2 X10'3 (0-0.9); EOSINOPHILS % (AUTO) 3.3 % (0-6); HEMATOCRIT 37.4 % (35.0-45.0); HEMOGLOBIN 11.7 g/dl (12.0-16.0); LYMPHOCYTES # (AUTO) 1.1 X10'3 (1.1-4.8); LYMPHOCYTES % (AUTO) 21.9 % (21-51); MEAN CORPUSCULAR HEMOGLOBIN 25.5 PG (27.0-31.0); MEAN CORPUSCULAR HGB CONC 31.3 g/dL (33.0-36.5); MEAN CORPUSCULAR VOLUME 81.5 FL (78-98); MEAN PLATELET VOLUME 8.7 FL (7.4-10.4); MONOCYTES # (AUTO) 0.5 X10'3 (0-0.9); MONOCYTES % (AUTO) 11.2 % (2-12); NEUTROPHILS % (AUTO) 63.1 % (42-75); PLATELET COUNT 321 X10'3 (140-440); RED BLOOD COUNT 4.59 X10'6 (4.20-5.60); RED CELL DISTRIBUTION WIDTH 16.9 % (11.5-14.5); WHITE BLOOD COUNT 4.8 X10'3 (4.5-11.0)
[2021-09-03 08:55] LABS: ALANINE AMINOTRANSFERASE 19 U/L (12-78); ALBUMIN 2.6 G/DL (3.4-5.0); ALBUMIN/GLOBULIN RATIO 0.5 (1.1-1.5); ALKALINE PHOSPHATASE 121 IU/L (46-116); ANION GAP 6 (8-16); ASPARTATE AMINO TRANSFERASE 15 U/L (10-37); BILIRUBIN,TOTAL 0.4 MG/DL (0.1-1.0); BLOOD UREA NITROGEN 23 MG/DL (7-18); BUN/CREATININE RATIO 10.6 (6.6-38.0); CALCIUM 8.9 MG/DL (8.5-10.1); CHLORIDE 102 MMOL/L (99-107); CREATININE 2.16 MG/DL (0.40-0.90); GLUCOSE 113 MG/DL (70-104); POTASSIUM 3.7 MMOL/L (3.5-5.1); SODIUM 142 MMOL/L (135-145); TOTAL CARBON DIOXIDE 34.1 MMOL/L (24-32); TOTAL PROTEIN 7.4 G/DL (6.4-8.2); eGFR 23 ML/MIN
[2021-09-03] MEDS: budesonide 0.5mg/2ml UD nebule IH SCH (09:20)
--- NOTE | 2021-09-03 10:40 | NUR ---
Wound care done by wound care nurse
--- NOTE | 2021-09-03 12:20 | NUR ---
Discharge Note Pt. discharged home with ambulet; Pt. is stable for discharge per MD. All instructions reviewed with patient with no further questions; Pt. prescriptions sent to [facility] and patient is aware to black pickler; IV discontinued with catheter intact; Tele monitor cleaned and returned; All belongings collected and sent with patient. Alysha Henderson RN
[2021-09-03] MEDS ORDERED: vancomycin/NS 500MG ADD-VANT 100 ML IV SCH (14:00)
[2021-09-06] MEDS ORDERED: VANCOMYCIN LEVEL IV ONE (13:30)
== END 2021-09-03 11:45 | disposition home or self-care (01) | DRG 720 ==
LOC: ER 23:04 → ED HOLD 08-23 02:31 → EDBEDREQ 08-23 11:49 → CANBEDREQ 08-23 11:59 → PCU 3S 08-23 16:55 → ICU 2S 08-25 12:27 → PCU 3S 08-30 22:21
PROVIDERS: ADMIT Internal Medicine; ATTEND Family Medicine
PROC: 5A1945Z Respiratory Ventilation, 24-96 Consecutive Hours (ICD-10-PCS; principal; 2021-08-25)
PROC: 0BH17EZ Insertion of Endotracheal Airway into Trachea, Via Natural or Artificial Opening (ICD-10-PCS; 2021-08-25)
PROC: 5A09457 Assistance with Respiratory Ventilation, 24-96 Consecutive Hours, Continuous Positive Airway Pressure (ICD-10-PCS; 2021-08-28)
DX: A41.9 Sepsis, unspecified organism (principal); J96.21 Acute and chronic respiratory failure with hypoxia; E87.2 Acidosis; J44.1 Chronic obstructive pulmonary disease with (acute) exacerbation; N17.9 Acute kidney failure, unspecified; E87.0 Hyperosmolality and hypernatremia; J45.901 Unspecified asthma with (acute) exacerbation; E87.3 Alkalosis; I50.9 Heart failure, unspecified; I13.0 Hypertensive heart and chronic kidney disease with heart failure and stage 1 through stage 4 chronic kidney disease, or unspecified chronic kidney disease; J96.22 Acute and chronic respiratory failure with hypercapnia; E66.01 Morbid (severe) obesity due to excess calories; E87.5 Hyperkalemia; Z60.2 Problems related to living alone; F20.9 Schizophrenia, unspecified; N20.1 Calculus of ureter; B96.1 Klebsiella pneumoniae [K. pneumoniae] as the cause of diseases classified elsewhere; I48.0 Paroxysmal atrial fibrillation; N13.5 Crossing vessel and stricture of ureter without hydronephrosis; N18.32 Chronic kidney disease, stage 3b; I87.2 Venous insufficiency (chronic) (peripheral); B95.62 Methicillin resistant Staphylococcus aureus infection as the cause of diseases classified elsewhere; Z20.822 Contact with and (suspected) exposure to COVID-19; L03.115 Cellulitis of right lower limb; L03.116 Cellulitis of left lower limb; N39.0 Urinary tract infection, site not specified; N26.1 Atrophy of kidney (terminal); Z86.711 Personal history of pulmonary embolism; Z86.73 Personal history of transient ischemic attack (TIA), and cerebral infarction without residual deficits; Z88.8 Allergy status to other drugs, medicaments and biological substances; Z68.32 Body mass index [BMI] 32.0-32.9, adult; Z79.899 Other long term (current) drug therapy; Z78.1 Physical restraint status
CPT/HCPCS: 36415; 36600; 71045; 74176; 80048; 80053; 80202; 81001; 82570; 82803; 82948; 83605; 83735; 83880; 84100; 84132; 84134; 84145; 84156; 84300; 84478; 84484; 85018; 85025; 85379; 87040; 87077; 87088; 87186; 87207; 87635; 92508; 92616; 93005; 93970; 94002; 94003; 94640; 94660; 94760; 94799; 97110; 97116; 97162; 97530; 99285; G0378; J0131; J0696; J0780; J1170; J1265; J1644; J1815; J1940; J2250; J2270; J2405; J2704; J3370; J3480; J3490; J7030; J7070; J7614

== ENCOUNTER 2021-10-21 11:52 | Inpatient (IN) | payer MEDICAID ==
[~2021-10-21] VITALS: Ht 165.1 cm; Wt 96.2 kg
[~2021-10-21 11:52] MED LIST changes: +AMLO10TA PO; -AMLO10TA13 PO; +ATR0.5NEB IH; -ATR0.5NEB NEB; +BUDE0.5A11 NEB; -BUDE0.5A3 NEB; -BUDE10.2 INH; -CARCD120C PO; +CARV3.12 PO; -CARV3.1244 PO; -COLL30OI TOP; +DILT-88 PO; -DOCU-22 PO; +DOCU-345 PO; -FERR325T29 PO; +FERR325T33 PO; +FURO-150 PO; -FURO20TA4 PO; +LEVA0.6319 NEB; -LEVA0.6333 IH; -PANT-47 PO; +PANT40TA54 PO; -POTA10TA37 PO
[2021-10-21 13:16] LABS: ALANINE AMINOTRANSFERASE 26 U/L (12-78); ALBUMIN 2.6 G/DL (3.4-5.0); ALBUMIN/GLOBULIN RATIO 0.5 (1.1-1.5); ALKALINE PHOSPHATASE 181 IU/L (46-116); ANION GAP 3 (8-16); ASPARTATE AMINO TRANSFERASE 11 U/L (10-37); BILIRUBIN,TOTAL 0.3 MG/DL (0.1-1.0); BLOOD UREA NITROGEN 26 MG/DL (7-18); BUN/CREATININE RATIO 16.5 (6.6-38.0); CALCIUM 8.6 MG/DL (8.5-10.1); CHLORIDE 108 MMOL/L (99-107); CREATININE 1.58 MG/DL (0.40-0.90); GLUCOSE 140 MG/DL (70-104); POTASSIUM 5.2 MMOL/L (3.5-5.1); SODIUM 142 MMOL/L (135-145); TOTAL CARBON DIOXIDE 31.2 MMOL/L (24-32); TOTAL PROTEIN 7.5 G/DL (6.4-8.2); eGFR 33 ML/MIN
[2021-10-21 13:18] LABS: BASOPHILS % (AUTO) 0.2 % (0-1); EOSINOPHILS % (AUTO) 0.7 % (0-6); LYMPHOCYTES % (AUTO) 14.3 % (21-51); MEAN PLATELET VOLUME 8.1 FL (7.4-10.4); MONOCYTES # (AUTO) 0.6 X10'3 (0-0.9); MONOCYTES % (AUTO) 8.8 % (2-12); NEUTROPHILS # (AUTO) 5.2 X10'3 (1.8-7.7); PLATELET COUNT 355 X10'3 (140-440); RED BLOOD COUNT 4.66 X10'6 (4.20-5.60); WHITE BLOOD COUNT 6.9 X10'3 (4.5-11.0)
[2021-10-21 14:03] LABS: HEMOGLOBIN 12.1 g/dl (12.0-16.0)
[2021-10-21 14:04] LABS: HEMATOCRIT 37.7 % (35.0-45.0); MEAN CORPUSCULAR HGB CONC 32.1 g/dL (33.0-36.5); MEAN CORPUSCULAR VOLUME 80.9 FL (78-98); RED CELL DISTRIBUTION WIDTH 17.7 % (11.5-14.5)
[2021-10-21] MEDS ORDERED: CefTRIAXone/D5W-Rocephin 1gm 50 ML IV ONE (22:15)
[2021-10-21] MEDS ORDERED: vancomycin/NS 1 GM ADD-VANTAGE 250 ML IV ONE (23:15)
[2021-10-21] MEDS ORDERED: furosemide 10 MG/1 ML 10ml inj IV ONE (23:15)
--- NOTE | 2021-10-21 23:21 | NUR ---
Patient complaining of BLE pain 05/07, per Dr. Portillo given Morphine 4mg IV and Zofran 4mg IV now.
[2021-10-21] MEDS ORDERED: morphine 4 MG/ML inj SYRINge IV ONE (23:25)
[2021-10-21] MEDS ORDERED: ondansetron/PF 4mg/2ml inj IV ONE (23:25)
[2021-10-21] MEDS ORDERED: normal saline 1000ml 1,000 ML IV ONE (23:45)
[2021-10-22] VITALS (27 sets, daily range): BP systolic 90–131; BP diastolic 41–77
[2021-10-22] MEDS ORDERED: naloxone 2mg/2ml inj ONE ×2 (01:27→01:40)
[2021-10-22 01:46] LABS: ABG BASE EXCESS -2.3 mmol/L (-2.0-2.0); ABG HCO3 35.7 mmol/L (22.0-26.0); ABG OXYGEN SATURATION 88.9 % (94-97); ABG PCO2 (T) > 150.0 mmHg (32.0-45.0); ABG PO2 (T) 77.1 mmHg (75.0-100.0); ALLEN'S TEST POSITIVE; FCOHb 3.5 % (0.0-3.9); FLOW 10 L/min; FMetHb 0.2 % (0.0-1.5); FO2Hb 85.6 % (94-97); TOTAL HEMOGLOBIN 13.2 G/dl (12.0-16.0)
[2021-10-22] MEDS ORDERED: fentaNYL/PF 50MCG/1 ML 2ML syringe IV PRN (02:10)
[2021-10-22] MEDS ORDERED: FENTANYL CITRATE/D5W/PF 100 ML IV PRN (02:15)
[2021-10-22] MEDS: propofol 1000mg/100ml bottle 100 ML IV SCH ×7 (02:27→23:48)
[2021-10-22] MEDS: FENTANYL-0.9 % NACL/PF 100 ML IV PRN ×6 (02:28→23:01)
[2021-10-22 02:34] LABS: CLARITY,URINE CLOUDY (Clear); GLUCOSE, URINE NEGATIVE (Neg); KETONES,URINE NEGATIVE (Neg); LEUKOCYTE ESTERASE ,URINE LARGE (Neg); NITRITES, URINE POSITIVE (Neg); OCCULT BLOOD,URINE MODERATE (Neg); PROTEIN,URINE 30 mg/dl (Neg); UROBILINOGEN,URINE 0.2 E.U/dL (0.2-1.0)
[2021-10-22 02:40] LABS: COLOR,URINE STRAW (Yellow); UA COLLECTION TYPE NON-SPECIFIED
--- NOTE | 2021-10-22 02:40 | NUR ---
Around 0115 I found the patient obtunded, she would not wake to painful stimuli and Narcan was administered as she had rec'd Morphine 4mg. Dr. Portillo was called to the room and Narcan was given a second time with no response. MD made the decision to intubated and RT was called for ABG and emergent intubation.
[2021-10-22 02:45] LABS: WBC,URINE TNTC /HPF (0-4)
[2021-10-22 02:46] LABS: BACTERIA,URINE 4+ /HPF (Neg); SQUAMOUS EPITHELIAL CELL,UR FEW /LPF (FEW)
[2021-10-22 02:47] LABS: MUCUS STRANDS FEW /LPF (Neg)
[2021-10-22 02:50] LABS: TRANSITIONAL EPI CELLS,URINE FEW /HPF; TRIPLE PHOSPHATE CRYST 1+ /HPF (NEGATIVE)
[2021-10-22 03:07] LABS: ABG BASE EXCESS 0.5 mmol/L (-2.0-2.0); ABG HCO3 31.9 mmol/L (22.0-26.0); ABG OXYGEN SATURATION 96.4 % (94-97); ABG PCO2 (T) 93.7 mmHg (32.0-45.0); ABG PO2 (T) 89.6 mmHg (75.0-100.0); FCOHb 2.5 % (0.0-3.9); FMetHb 0.2 % (0.0-1.5); FO2Hb 93.8 % (94-97); PATIENT TEMPERATURE 36.4; PEEP 5 cm H2O; RESPIRATORY RATE 24 b/min; TIDAL VOLUME 350 mL
[2021-10-22] MEDS: fentaNYL/PF 50MCG/1 ML 2ML syringe IV PRN (03:52)
--- NOTE | 2021-10-22 04:24 | NUR ---
Patient to CT and ICU
[2021-10-22 04:42] LABS: EOSINOPHILS # (AUTO) 0.1 X10'3 (0-0.9); EOSINOPHILS % (AUTO) 0.5 % (0-6); NEUTROPHILS % (AUTO) 87.2 % (42-75)
[2021-10-22 04:43] LABS: BASOPHILS % (AUTO) 0.2 % (0-1); LYMPHOCYTES # (AUTO) 0.8 X10'3 (1.1-4.8); MEAN PLATELET VOLUME 8.3 FL (7.4-10.4); MONOCYTES # (AUTO) 1.2 X10'3 (0-0.9); MONOCYTES % (AUTO) 7.1 % (2-12); NEUTROPHILS # (AUTO) 14.2 X10'3 (1.8-7.7); PLATELET COUNT 425 X10'3 (140-440); WHITE BLOOD COUNT 16.3 X10'3 (4.5-11.0)
[2021-10-22 04:54] LABS: GLUCOSE 172 MG/DL (70-104); SODIUM 144 MMOL/L (135-145)
[2021-10-22 04:55] LABS: ALANINE AMINOTRANSFERASE 28 U/L (12-78); ALBUMIN 2.6 G/DL (3.4-5.0); ALBUMIN/GLOBULIN RATIO 0.5 (1.1-1.5); ALKALINE PHOSPHATASE 187 IU/L (46-116); ANION GAP 0 (8-16); ASPARTATE AMINO TRANSFERASE 29 U/L (10-37); BILIRUBIN,TOTAL 0.2 MG/DL (0.1-1.0); BLOOD UREA NITROGEN 25 MG/DL (7-18); BUN/CREATININE RATIO 15.2 (6.6-38.0); CALCIUM 8.1 MG/DL (8.5-10.1); CHLORIDE 109 MMOL/L (99-107); CREATININE 1.65 MG/DL (0.40-0.90); MAGNESIUM 2.5 MG/DL (1.5-2.4); PHOSPHORUS 6.6 MG/DL (2.3-4.5); TOTAL CARBON DIOXIDE 34.9 MMOL/L (24-32); TOTAL PROTEIN 7.8 G/DL (6.4-8.2); eGFR 31 ML/MIN
[2021-10-22 05:02] LABS: POTASSIUM 6.2 MMOL/L (3.5-5.1)
[2021-10-22 05:22] LABS: HEMOGLOBIN 11.3 g/dl (12.0-16.0); RED BLOOD COUNT 4.41 X10'6 (4.20-5.60)
[2021-10-22 05:23] LABS: HEMATOCRIT 35.8 % (35.0-45.0); MEAN CORPUSCULAR HEMOGLOBIN 25.6 PG (27.0-31.0); MEAN CORPUSCULAR HGB CONC 31.6 g/dL (33.0-36.5); MEAN CORPUSCULAR VOLUME 81.1 FL (78-98)
[2021-10-22 05:24] LABS: RED CELL DISTRIBUTION WIDTH 18.3 % (11.5-14.5)
[2021-10-22] MEDS ORDERED: insulin regular, human U-100 3ml vial - multi-dose IV ONE (05:40)
[2021-10-22] MEDS ORDERED: dextrose 50%-water 50ml dispensing syringe IV ONE (05:40)
[2021-10-22] MEDS ORDERED: sodium bicarbonate (8.4%) 1 mEq/ml syringe IV ONE (05:40)
[2021-10-22] MEDS ORDERED: insulin regular, human 10 units/0.1 ml syringe IV ONE (06:00)
[2021-10-22 06:18] LABS: ANISOCYTOSIS 2+; PLATELET ESTIMATE NORMAL; TOTAL CELLS COUNTED 100
--- NOTE | 2021-10-22 06:30 | NUR ---
Patient in room ICU 2037. I have received report from Blade GOMEZ and had the opportunity to ask questions and assume patient care.
--- NOTE | 2021-10-22 06:57 | NUR ---
Problems reprioritized. Patient report given, questions answered & plan of care reviewed with Nikki GOMEZ.
[2021-10-22] MEDS ORDERED: dextrose 50%-water 50ml dispensing syringe IV PRN ×2 (07:20)
[2021-10-22] MEDS ORDERED: glucagon, human recombinant 1mg kit SUBCUT PRN (07:20)
[2021-10-22] MEDS: methylPREDNISolone sod succ 125mg/2ml vial IV SCH ×3 (07:29→23:47)
[2021-10-22] MEDS: heparin, porcine 5000 units/ml vial SQ SCH ×3 (07:30→23:47)
[2021-10-22] MEDS: famotidine/PF 10 mg/ml inj IV SCH (07:30)
[2021-10-22] MEDS ORDERED: famotidine/PF IV inj 20 MG in normal saline 100ml IV soln 100 ML IV SCH (08:00)
[2021-10-22] MEDS: SODIUM ZIRCONIUM CYCLOSILICATE 10 GM POWD.PACK PO SCH ×3 (08:20→21:02)
[2021-10-22] MEDS: azithromycin 250mg tablet PO SCH (08:21)
[2021-10-22 09:04] LABS: TRIGLYCERIDES 101 MG/DL (20-135)
[2021-10-22] MEDS ORDERED: normal saline 1000ml 1,000 ML IV SCH (09:50)
--- NOTE | 2021-10-22 10:00 | NUR ---
Informed Dr. Zhong during rounds that pts urine output is minimal 10-20ml/hr and that pt does not have any maintenance IV fluids ordered. ordered D5NS @70ml/hr.
[2021-10-22] MEDS ORDERED: albumin (Human) 5% 250ml 250 ML IV ONE ×2 (10:40)
--- NOTE | 2021-10-22 11:16 | NUR ---
Initial: Pt intubated admit DX acute hypercapnic respiratory failure, COPD w/ emphysema, LLL PNA, and PATRICIA per EMR. MAP 68 this AM during rounds w/ OG in place; to remain NPO at this time and EN to start if unable to extubated by tomorrow per clipper machine operator. TF recs below. Pt s/p one time insulin for K 6.2 w/ subsequent Glu 63mg/dl this AM s/p D50 w/ D5/NS at 70ml/hr to start today per MD; will provide 286 kcals/day. Pt hx chronic BLE wounds w/ cellulitis pending [facility] assessment this admit. Will continue to monitor for further nutrition intervention needs on vent. Rec: 1. IF TF; Continuos TF using Vital High Protein at 70ml/hr goal; would provide 1680ml volume/day, 1680 kcals, 1411ml water, and 147g protein. 2. IF TF; additional water flush 100ml Q4H 3. IF TF; PALB Q /; daily wts 4. routine bowel care 5. upon extubation; advance diet as medically indicated to heart healthy Addendum: 10/22/21 at [address] Amended: Links added.
[2021-10-22] MEDS: dextrose 5%-normal saline 1,000 ML IV SCH ×2 (11:19→23:48)
[2021-10-22] MEDS ORDERED: levalbuterol 0.63mg/3ml nebule IH PRN (13:55)
[2021-10-22] MEDS: ipratropium 0.5 MG/2.5ML nebule IH SCH ×2 (15:34→20:19)
--- NOTE | 2021-10-22 16:35 | NUR ---
Patient report given to Mary GOMEZ. Patient to go to room 302. Addendum: 10/22/21 at 1636 by Nikki Stevenson RN Disregard above note, wrong patient.
--- NOTE | 2021-10-22 18:30 | NUR ---
Patient in room ICU 2037. I have received report from Nikki GOMEZ and had the opportunity to ask questions and assume patient care.
--- NOTE | 2021-10-22 18:32 | NUR ---
Problems reprioritized. Patient report given, questions answered & plan of care reviewed with Mateo GOMEZ.
[2021-10-22] MEDS ORDERED: docusate sod 100mg capsule PO SCH (20:00)
[2021-10-22] MEDS: budesonide 0.5mg/2ml UD nebule IH SCH (20:18)
[2021-10-22] MEDS: flecainide 50mg tablet PO SCH (20:28)
[2021-10-22] MEDS: lactobacillus rhamnosus 10,000 MMU CELLS/CAPSULE PO SCH (20:28)
[2021-10-22] MEDS: vancomycin/NS 1 GM ADD-VANTAGE 250 ML IV SCH (21:02)
[2021-10-22] MEDS: CefTRIAXone/D5W-Rocephin 1gm 50 ML IV SCH (22:05)
[2021-10-23] VITALS (32 sets, daily range): BP systolic 84–183; BP diastolic 39–129
[2021-10-23 02:35] LABS: EOSINOPHILS % (AUTO) 0 % (0-6); MONOCYTES # (AUTO) 0.2 X10'3 (0-0.9); RED CELL DISTRIBUTION WIDTH 18.3 % (11.5-14.5)
[2021-10-23 02:37] LABS: BASOPHILS % (AUTO) 0.2 % (0-1); HEMATOCRIT 30.8 % (35.0-45.0); HEMOGLOBIN 9.4 g/dl (12.0-16.0); LYMPHOCYTES # (AUTO) 0.5 X10'3 (1.1-4.8); LYMPHOCYTES % (AUTO) 9.1 % (21-51); MEAN CORPUSCULAR HEMOGLOBIN 24.4 PG (27.0-31.0); MEAN CORPUSCULAR HGB CONC 30.5 g/dL (33.0-36.5); MEAN CORPUSCULAR VOLUME 80.2 FL (78-98); MEAN PLATELET VOLUME 8.1 FL (7.4-10.4); MONOCYTES % (AUTO) 4.6 % (2-12); NEUTROPHILS # (AUTO) 4.6 X10'3 (1.8-7.7); NEUTROPHILS % (AUTO) 86.1 % (42-75); PLATELET COUNT 290 X10'3 (140-440); RED BLOOD COUNT 3.85 X10'6 (4.20-5.60); WHITE BLOOD COUNT 5.3 X10'3 (4.5-11.0)
[2021-10-23 02:51] LABS: ALANINE AMINOTRANSFERASE 17 U/L (12-78); ALBUMIN 2.2 G/DL (3.4-5.0); ALBUMIN/GLOBULIN RATIO 0.6 (1.1-1.5); ALKALINE PHOSPHATASE 129 IU/L (46-116); ANION GAP 5 (8-16); ASPARTATE AMINO TRANSFERASE 18 U/L (10-37); BILIRUBIN,TOTAL 0.3 MG/DL (0.1-1.0); BLOOD UREA NITROGEN 39 MG/DL (7-18); CALCIUM 7.7 MG/DL (8.5-10.1); CHLORIDE 110 MMOL/L (99-107); CREATININE 2.17 MG/DL (0.40-0.90); GLUCOSE 119 MG/DL (70-104); SODIUM 143 MMOL/L (135-145); TOTAL CARBON DIOXIDE 28.2 MMOL/L (24-32); TOTAL PROTEIN 5.6 G/DL (6.4-8.2); eGFR 23 ML/MIN
--- NOTE | 2021-10-23 03:00 | NUR ---
Received critical value for potassium of 6.1. Called for further orders. Kayexalate was ordered and and ABG. Redraw will be at 0700 to determine if medication has worked. Pt's BP is soft (94/49), but MAP remains above 60.
[2021-10-23 03:01] LABS: POTASSIUM 6.1 MMOL/L (3.5-5.1)
[2021-10-23] MEDS ORDERED: sodium polystyrene sulfonate 15gm/60ml oral suspension PO ONE (03:15)
[2021-10-23] MEDS: ipratropium 0.5 MG/2.5ML nebule IH SCH ×4 (03:27→20:23)
[2021-10-23] MEDS: FENTANYL-0.9 % NACL/PF 100 ML IV PRN ×4 (03:42→19:25)
[2021-10-23] MEDS: propofol 1000mg/100ml bottle 100 ML IV SCH (03:42)
[2021-10-23 04:23] LABS: ANISOCYTOSIS 2+; NUCLEATED RED BLOOD CELLS 1 /100WBC (0-0); PLATELET ESTIMATE NORMAL; TOTAL CELLS COUNTED 100
[2021-10-23 04:24] LABS: POLYCHROMASIA FEW
[2021-10-23 04:57] LABS: ABG HCO3 26.6 mmol/L (22.0-26.0); ABG OXYGEN SATURATION 87.9 % (94-97); ABG PCO2 (T) 47.4 mmHg (32.0-45.0); ABG PO2 (T) 58.1 mmHg (75.0-100.0); ALLEN'S TEST Modified; FCOHb 0.3 % (0.0-3.9); FMetHb 0.2 % (0.0-1.5); FO2Hb 87.5 % (94-97); PATIENT TEMPERATURE 37.2; PEEP 5 cm H2O; RESPIRATORY RATE 24 b/min; TIDAL VOLUME 350 mL; TOTAL HEMOGLOBIN 11.1 G/dl (12.0-16.0)
[2021-10-23] MEDS: NORepinephrine 8mg/ 250ml NS 250 ML IV SCH ×2 (05:47→17:41)
--- NOTE | 2021-10-23 06:15 | NUR ---
Patient in room ICU 2037. I have received report from Ora GOMEZ and had the opportunity to ask questions and assume patient care.
--- NOTE | 2021-10-23 06:26 | NUR ---
Problems reprioritized. Patient report given, questions answered & plan of care reviewed with Geovanny GOMEZ.
[2021-10-23] MEDS: lactobacillus rhamnosus 10,000 MMU CELLS/CAPSULE PO SCH ×2 (07:53→20:19)
[2021-10-23] MEDS: flecainide 50mg tablet PO SCH ×2 (07:54→20:19)
[2021-10-23] MEDS: heparin, porcine 5000 units/ml vial SQ SCH ×2 (07:54→16:31)
[2021-10-23] MEDS: azithromycin 250mg tablet PO SCH (07:54)
[2021-10-23] MEDS: SODIUM ZIRCONIUM CYCLOSILICATE 10 GM POWD.PACK PO SCH ×3 (07:55→21:12)
[2021-10-23] MEDS: methylPREDNISolone sod succ 125mg/2ml vial IV SCH ×2 (07:55→16:31)
[2021-10-23] MEDS: famotidine/PF 10 mg/ml inj IV SCH (07:55)
[2021-10-23] MEDS: budesonide 0.5mg/2ml UD nebule IH SCH ×2 (08:54→20:23)
[2021-10-23] MEDS ORDERED: etomidate 2mg/ml inj. ONE (09:00)
[2021-10-23] MEDS: docusate sodium 100mg/10ml UD cup OGT SCH ×2 (10:25→20:19)
[2021-10-23] MEDS ORDERED: dextrose 50%-water 50ml dispensing syringe IV ONE (10:50)
[2021-10-23] MEDS ORDERED: insulin regular, human 10 units/0.1 ml syringe IV ONE (10:50)
[2021-10-23] MEDS: dexmedetomidine/D5W 100mL 100 ML IV SCH ×4 (12:10→21:27)
[2021-10-23] MEDS: mineral oil/petrolatum ophthal oint EACHEYE SCH ×2 (14:39→20:20)
[2021-10-23] MEDS: dextrose 5%-normal saline 1,000 ML IV SCH (15:16)
--- NOTE | 2021-10-23 16:51 | NUR ---
BP Elevated MD notified of high BP with just precedex, orders received. CN aware.
--- NOTE | 2021-10-23 18:30 | NUR ---
Patient in room ICU 2037. I have received report from Geovanny GOMEZ and had the opportunity to ask questions and assume patient care.
[2021-10-23] MEDS: metoprolol tartrate 1mg/ml inj IV PRN ×3 (18:51→21:10)
--- NOTE | 2021-10-23 20:00 | NUR ---
Pt still has high BP. was notified and Labetalol was ordered IV push.
[2021-10-23] MEDS: mineral oil/petrolatum, white cream 113gm jar TP SCH (20:19)
[2021-10-23] MEDS: vancomycin/NS 1 GM ADD-VANTAGE 250 ML IV SCH (20:19)
[2021-10-23] MEDS: labetalol 20mg/4ml (5mg/ml) syringe IV PRN ×3 (22:02→22:38)
[2021-10-23] MEDS: CefTRIAXone/D5W-Rocephin 1gm 50 ML IV SCH (22:07)
[2021-10-23] MEDS ORDERED: hydrALAZINE 20mg/ml inj. IV ONE (23:20)
--- NOTE | 2021-10-23 23:42 | NUR ---
6ml's of Labetalol has been given with BP unaffected. Updated Doctor, and requested IV drip. Doctor advised against and ordered hydralazine 50mg IVP once. Pharmacy called stating unless pt is in Hypertensive crisis, 50mg is too much and stated he will not approve order. Pharmacy called doctor and doctor adjusted dose to 40mg IVP. Pharmacy adjusted order and restated with myself that it is still a high dose but approved order. Pt BP currently is 176/107.
[2021-10-24] VITALS (32 sets, daily range): BP systolic 107–189; BP diastolic 47–92
[2021-10-24] MEDS: methylPREDNISolone sod succ 125mg/2ml vial IV SCH ×3 (00:13→16:06)
[2021-10-24] MEDS: heparin, porcine 5000 units/ml vial SQ SCH ×3 (00:13→16:05)
[2021-10-24] MEDS: dexmedetomidine/D5W 100mL 100 ML IV SCH ×3 (00:29→06:47)
--- NOTE | 2021-10-24 01:00 | NUR ---
Pt BP is now in acceptable range after giving hydralazine.
[2021-10-24] MEDS: FENTANYL-0.9 % NACL/PF 100 ML IV PRN ×5 (01:38→22:13)
[2021-10-24] MEDS: mineral oil/petrolatum ophthal oint EACHEYE SCH ×4 (02:05→20:13)
[2021-10-24 02:38] LABS: BASOPHILS % (AUTO) 0.3 % (0-1); EOSINOPHILS % (AUTO) 0 % (0-6); HEMATOCRIT 36.9 % (35.0-45.0); HEMOGLOBIN 11.4 g/dl (12.0-16.0); LYMPHOCYTES # (AUTO) 0.3 X10'3 (1.1-4.8); LYMPHOCYTES % (AUTO) 3.7 % (21-51); MEAN CORPUSCULAR HEMOGLOBIN 24.5 PG (27.0-31.0); MEAN CORPUSCULAR HGB CONC 30.9 g/dL (33.0-36.5); MEAN CORPUSCULAR VOLUME 79.3 FL (78-98); MEAN PLATELET VOLUME 8.3 FL (7.4-10.4); MONOCYTES # (AUTO) 0.3 X10'3 (0-0.9); MONOCYTES % (AUTO) 3.9 % (2-12); NEUTROPHILS # (AUTO) 6.7 X10'3 (1.8-7.7); NEUTROPHILS % (AUTO) 92.1 % (42-75); PLATELET COUNT 296 X10'3 (140-440); RED BLOOD COUNT 4.65 X10'6 (4.20-5.60); RED CELL DISTRIBUTION WIDTH 18.5 % (11.5-14.5); WHITE BLOOD COUNT 7.3 X10'3 (4.5-11.0)
[2021-10-24 03:06] LABS: ALANINE AMINOTRANSFERASE 15 U/L (12-78); ALBUMIN 2.5 G/DL (3.4-5.0); ALBUMIN/GLOBULIN RATIO 0.7 (1.1-1.5); ALKALINE PHOSPHATASE 132 IU/L (46-116); ANION GAP 8 (8-16); ASPARTATE AMINO TRANSFERASE 12 U/L (10-37); BILIRUBIN,TOTAL 0.3 MG/DL (0.1-1.0); BLOOD UREA NITROGEN 48 MG/DL (7-18); BUN/CREATININE RATIO 19.8 (6.6-38.0); CALCIUM 7.5 MG/DL (8.5-10.1); CHLORIDE 109 MMOL/L (99-107); CREATININE 2.42 MG/DL (0.40-0.90); GLUCOSE 155 MG/DL (70-104); MAGNESIUM 2.2 MG/DL (1.5-2.4); POTASSIUM 5.1 MMOL/L (3.5-5.1); SODIUM 143 MMOL/L (135-145); TOTAL CARBON DIOXIDE 26.5 MMOL/L (24-32); TOTAL PROTEIN 6.3 G/DL (6.4-8.2); eGFR 20 ML/MIN
[2021-10-24] MEDS: ipratropium 0.5 MG/2.5ML nebule IH SCH ×4 (04:00→21:34)
[2021-10-24 04:18] LABS: ABG BASE EXCESS 1.5 mmol/L (-2.0-2.0); ABG HCO3 27.2 mmol/L (22.0-26.0); ABG OXYGEN SATURATION 88.7 % (94-97); ABG PCO2 (T) 46.1 mmHg (32.0-45.0); ABG PO2 (T) 57.3 mmHg (75.0-100.0); ALLEN'S TEST POSITIVE; FCOHb 0.3 % (0.0-3.9); FMetHb 0.5 % (0.0-1.5); PATIENT TEMPERATURE 36.5; PEEP 5 cm H2O; RESPIRATORY RATE 24 b/min; TIDAL VOLUME 350 mL; TOTAL HEMOGLOBIN 12.8 G/dl (12.0-16.0)
--- NOTE | 2021-10-24 05:00 | NUR ---
Pt's BP has been steadily rising again after pt's lowest BP of 133/59 post administration of hydralazine. Pt's BP is currently 173/87.
[2021-10-24] MEDS: hydrALAZINE 20mg/ml inj. IV PRN ×2 (05:57→13:12)
--- NOTE | 2021-10-24 06:30 | NUR ---
Patient in room ICU 2037. I have received report from Ora GOMEZ and had the opportunity to ask questions and assume patient care.
[2021-10-24] MEDS: budesonide 0.5mg/2ml UD nebule IH SCH ×2 (06:51→21:34)
[2021-10-24] MEDS ORDERED: losartan 50mg tablet PO SCH (08:00)
[2021-10-24] MEDS: famotidine/PF 10 mg/ml inj IV SCH (09:06)
[2021-10-24] MEDS: azithromycin 250mg tablet PO SCH (09:08)
[2021-10-24] MEDS: docusate sodium 100mg/10ml UD cup OGT SCH ×2 (09:09→20:13)
[2021-10-24] MEDS: lactobacillus rhamnosus 10,000 MMU CELLS/CAPSULE PO SCH ×2 (09:09→20:13)
[2021-10-24] MEDS: flecainide 50mg tablet PO SCH ×2 (09:09→20:13)
[2021-10-24] MEDS: mineral oil/petrolatum, white cream 113gm jar TP SCH ×2 (09:10→20:14)
--- NOTE | 2021-10-24 09:30 | NUR ---
WO Wound care to see/treat pt. Assisted with leg wound dressing changes and back skin check. Pt does not tolerate turning well. BP/HR up inspite of meds administered prior to treatments. No skin issues on back.
[2021-10-24] MEDS: midazolam 100mg in NS 100ml 100 ML IV PRN ×2 (10:44→17:10)
--- NOTE | 2021-10-24 11:20 | NUR ---
Tube feed consult: Pt remains intubated though no longer on sedation, w/ TF to start per Radial Drill Press Operator For Plastic. TF recs below. Also w/ D5NS at 70ml/hr providing 286 kcals/day, recommend d/c once nutrition support is initiated. Per MD, additional 50ml water flush Q6hr. LBM 10/23 receiving routine colace. Will continue to monitor and adjust needs as medically indicated Rec: 1. Continuos TF using Vital High Protein at 70ml/hr goal; would provide 1680ml volume/day, 1680 kcals, 1411ml water, and 147g protein. 2. Additional water flush 50ml Q6H per MD 3. PALB Q ; daily wts 4. Routine bowel care 5. upon extubation; advance diet as medically indicated to heart healthy Addendum: 10/24/21 at [address] Amended: Links added.
[2021-10-24] MEDS ORDERED: cefepime 1GM/NS ADD-VANTAGE 100 ML IV SCH (12:10)
[2021-10-24] MEDS ORDERED: cefepime 1GM in D5W 50mL 100 ML IV SCH (12:21)
--- NOTE | 2021-10-24 18:41 | NUR ---
Problems reprioritized. Patient report given, questions answered & plan of care reviewed with Ora GOMEZ.
[2021-10-24] MEDS: dextrose 5%-normal saline 1,000 ML IV SCH ×2 (19:52→20:00)
[2021-10-24] MEDS: cefepime 1GM in D5W 50mL 50 ML IV SCH (20:12)
[2021-10-24] MEDS ORDERED: VANCOMYCIN LEVEL IV ONE (20:30)
[2021-10-24] MEDS: vancomycin/NS 1 GM ADD-VANTAGE 250 ML IV SCH (21:32)
[2021-10-25] VITALS (31 sets, daily range): BP systolic 111–160; BP diastolic 52–86
[2021-10-25] MEDS: heparin, porcine 5000 units/ml vial SQ SCH ×3 (00:35→15:54)
[2021-10-25] MEDS: methylPREDNISolone sod succ 125mg/2ml vial IV SCH ×3 (00:35→15:54)
[2021-10-25] MEDS: ipratropium 0.5 MG/2.5ML nebule IH SCH ×4 (01:57→21:29)
[2021-10-25] MEDS: midazolam 100mg in NS 100ml 100 ML IV PRN ×2 (02:03→10:01)
[2021-10-25 02:16] LABS: ABG BASE EXCESS -0.1 mmol/L (-2.0-2.0); ABG HCO3 24.6 mmol/L (22.0-26.0); ABG OXYGEN SATURATION 91.1 % (94-97); ABG PCO2 (T) 38.5 mmHg (32.0-45.0); ABG PO2 (T) 59.9 mmHg (75.0-100.0); ALLEN'S TEST POSITIVE; FCOHb 0.5 % (0.0-3.9); FMetHb 0.4 % (0.0-1.5); FO2Hb 90.3 % (94-97); PATIENT TEMPERATURE 36.1; PEEP 5 cm H2O; RESPIRATORY RATE 20 b/min; TIDAL VOLUME 450 mL; TOTAL HEMOGLOBIN 11.5 G/dl (12.0-16.0)
[2021-10-25] MEDS: mineral oil/petrolatum ophthal oint EACHEYE SCH ×4 (02:49→20:00)
[2021-10-25 03:12] LABS: BASOPHILS % (AUTO) 0 % (0-1); EOSINOPHILS % (AUTO) 0 % (0-6); HEMATOCRIT 32.4 % (35.0-45.0); HEMOGLOBIN 10.1 g/dl (12.0-16.0); LYMPHOCYTES # (AUTO) 0.3 X10'3 (1.1-4.8); LYMPHOCYTES % (AUTO) 5.8 % (21-51); MEAN CORPUSCULAR HEMOGLOBIN 24.3 PG (27.0-31.0); MEAN CORPUSCULAR HGB CONC 31.2 g/dL (33.0-36.5); MEAN CORPUSCULAR VOLUME 77.9 FL (78-98); MEAN PLATELET VOLUME 8.2 FL (7.4-10.4); MONOCYTES # (AUTO) 0.2 X10'3 (0-0.9); MONOCYTES % (AUTO) 5.5 % (2-12); NEUTROPHILS % (AUTO) 88.7 % (42-75); PLATELET COUNT 278 X10'3 (140-440); RED BLOOD COUNT 4.16 X10'6 (4.20-5.60); RED CELL DISTRIBUTION WIDTH 18.8 % (11.5-14.5); WHITE BLOOD COUNT 4.5 X10'3 (4.5-11.0)
[2021-10-25 03:21] LABS: ALANINE AMINOTRANSFERASE 13 U/L (12-78); ALBUMIN 2.1 G/DL (3.4-5.0); ALBUMIN/GLOBULIN RATIO 0.6 (1.1-1.5); ALKALINE PHOSPHATASE 102 IU/L (46-116); ANION GAP 9 (8-16); ASPARTATE AMINO TRANSFERASE 11 U/L (10-37); BILIRUBIN,TOTAL 0.3 MG/DL (0.1-1.0); BLOOD UREA NITROGEN 50 MG/DL (7-18); BUN/CREATININE RATIO 27.9 (6.6-38.0); CALCIUM 7.1 MG/DL (8.5-10.1); CHLORIDE 111 MMOL/L (99-107); CREATININE 1.79 MG/DL (0.40-0.90); GLUCOSE 124 MG/DL (70-104); POTASSIUM 4.4 MMOL/L (3.5-5.1); SODIUM 146 MMOL/L (135-145); TOTAL CARBON DIOXIDE 26.4 MMOL/L (24-32); TOTAL PROTEIN 5.4 G/DL (6.4-8.2); eGFR 28 ML/MIN
[2021-10-25] MEDS: FENTANYL-0.9 % NACL/PF 100 ML IV PRN ×3 (03:40→20:09)
[2021-10-25 04:04] LABS: ANISOCYTOSIS 2+; MICROCYTOSIS 1+; PLATELET ESTIMATE NORMAL
[2021-10-25 04:05] LABS: ELLIPTOCYTES FEW
[2021-10-25] MEDS: budesonide 0.5mg/2ml UD nebule IH SCH ×2 (07:11→21:29)
[2021-10-25] MEDS: flecainide 50mg tablet OGT SCH ×2 (07:54→21:06)
[2021-10-25] MEDS: losartan 50mg tablet OGT SCH (07:55)
[2021-10-25] MEDS: docusate sodium 100mg/10ml UD cup OGT SCH ×2 (07:56→21:07)
[2021-10-25] MEDS: famotidine/PF 10 mg/ml inj IV SCH (07:56)
[2021-10-25] MEDS: lactobacillus rhamnosus 10,000 MMU CELLS/CAPSULE PO SCH ×2 (07:57→21:06)
[2021-10-25] MEDS: cefepime 1GM in D5W 50mL 50 ML IV SCH ×2 (07:58→21:09)
[2021-10-25] MEDS: mineral oil/petrolatum, white cream 113gm jar TP SCH ×2 (07:59→21:00)
[2021-10-25] MEDS: azithromycin 200mg/5ml oral suspension 15ml bottle OGT SCH (09:47)
--- NOTE | 2021-10-25 18:23 | NUR ---
Problems reprioritized. Patient report given, questions answered & plan of care reviewed with Yaneth GOMEZ.
[2021-10-25] MEDS: dexmedetomidine/D5W 100mL 100 ML IV SCH (21:08)
[2021-10-25] MEDS: vancomycin/NS 1 GM ADD-VANTAGE 250 ML IV SCH (21:08)
[2021-10-25] MEDS: dextrose 5%-normal saline 1,000 ML IV SCH (21:22)
[2021-10-26] VITALS (35 sets, daily range): BP systolic 122–198; BP diastolic 57–119
[2021-10-26] MEDS: heparin, porcine 5000 units/ml vial SQ SCH ×3 (00:06→17:11)
[2021-10-26] MEDS: methylPREDNISolone sod succ 125mg/2ml vial IV SCH ×3 (00:06→17:11)
[2021-10-26] MEDS: metoprolol tartrate 1mg/ml inj IV PRN (00:07)
[2021-10-26] MEDS: dextrose 5%-normal saline 1,000 ML IV SCH ×2 (00:28→14:46)
[2021-10-26] MEDS: mineral oil/petrolatum ophthal oint EACHEYE SCH ×4 (02:00→20:00)
[2021-10-26] MEDS: dexmedetomidine/D5W 100mL 100 ML IV SCH ×9 (02:19→21:41)
[2021-10-26] MEDS: labetalol 20mg/4ml (5mg/ml) syringe IV PRN ×2 (02:20→03:02)
[2021-10-26 02:46] LABS: BASOPHILS % (AUTO) 0.1 % (0-1); EOSINOPHILS % (AUTO) 0.1 % (0-6); HEMATOCRIT 36.5 % (35.0-45.0); HEMOGLOBIN 11.1 g/dl (12.0-16.0); LYMPHOCYTES # (AUTO) 0.4 X10'3 (1.1-4.8); LYMPHOCYTES % (AUTO) 4.8 % (21-51); MEAN CORPUSCULAR HEMOGLOBIN 24.2 PG (27.0-31.0); MEAN CORPUSCULAR HGB CONC 30.4 g/dL (33.0-36.5); MEAN CORPUSCULAR VOLUME 79.5 FL (78-98); MEAN PLATELET VOLUME 8.3 FL (7.4-10.4); MONOCYTES # (AUTO) 0.5 X10'3 (0-0.9); NEUTROPHILS # (AUTO) 7.5 X10'3 (1.8-7.7); PLATELET COUNT 281 X10'3 (140-440); RED BLOOD COUNT 4.59 X10'6 (4.20-5.60); RED CELL DISTRIBUTION WIDTH 18.9 % (11.5-14.5); WHITE BLOOD COUNT 8.5 X10'3 (4.5-11.0)
[2021-10-26] MEDS: ipratropium 0.5 MG/2.5ML nebule IH SCH ×4 (02:51→19:41)
[2021-10-26 03:02] LABS: ALBUMIN 2.4 G/DL (3.4-5.0); ANION GAP 13 (8-16); BLOOD UREA NITROGEN 56 MG/DL (7-18); BUN/CREATININE RATIO 34.4 (6.6-38.0); CHLORIDE 110 MMOL/L (99-107); CREATININE 1.63 MG/DL (0.40-0.90); GLUCOSE 125 MG/DL (70-104); POTASSIUM 3.9 MMOL/L (3.5-5.1); SODIUM 147 MMOL/L (135-145); eGFR 32 ML/MIN
[2021-10-26] MEDS: hydrALAZINE 20mg/ml inj. IV PRN ×3 (03:07→20:59)
[2021-10-26 03:09] LABS: ABG BASE EXCESS -2.9 mmol/L (-2.0-2.0); ABG HCO3 20.1 mmol/L (22.0-26.0); ABG OXYGEN SATURATION 90.8 % (94-97); ABG PCO2 (T) 30.6 mmHg (32.0-45.0); ABG PO2 (T) 58.7 mmHg (75.0-100.0); ALLEN'S TEST POSITIVE; FCOHb 0.3 % (0.0-3.9); FMetHb 0.2 % (0.0-1.5); FO2Hb 90.3 % (94-97); PATIENT TEMPERATURE 37.6; PEEP 5 cm H2O; RESPIRATORY RATE 20 b/min; TIDAL VOLUME 450 mL; TOTAL HEMOGLOBIN 12.5 G/dl (12.0-16.0)
[2021-10-26] MEDS: FENTANYL-0.9 % NACL/PF 100 ML IV PRN ×5 (06:37→19:20)
[2021-10-26] MEDS: budesonide 0.5mg/2ml UD nebule IH SCH ×2 (07:15→19:41)
[2021-10-26] MEDS: docusate sodium 100mg/10ml UD cup OGT SCH ×2 (08:00→21:03)
[2021-10-26] MEDS: mineral oil/petrolatum, white cream 113gm jar TP SCH ×2 (08:00→21:04)
[2021-10-26] MEDS: azithromycin 200mg/5ml oral suspension 15ml bottle OGT SCH (08:00)
[2021-10-26] MEDS: famotidine/PF 10 mg/ml inj IV SCH (09:03)
[2021-10-26] MEDS: flecainide 50mg tablet OGT SCH ×2 (09:04→21:04)
[2021-10-26] MEDS: lactobacillus rhamnosus 10,000 MMU CELLS/CAPSULE PO SCH ×2 (09:05→21:04)
[2021-10-26] MEDS: losartan 50mg tablet OGT SCH (09:05)
[2021-10-26] MEDS: cefepime 1GM in D5W 50mL 50 ML IV SCH ×2 (09:07→21:03)
[2021-10-26] MEDS: bisacodyl 10mg suppository rectal RC SCH (10:15)
[2021-10-26] MEDS: midazolam 100mg in NS 100ml 100 ML IV PRN (11:29)
[2021-10-26] MEDS: polyethylene glycol 3350 17gm powd pack PO SCH (21:03)
[2021-10-26] MEDS: vancomycin/NS 1 GM ADD-VANTAGE 250 ML IV SCH (21:06)
[2021-10-26] MEDS ORDERED: dextrose ORAL solution 15 GM/59 ML bottle PO PRN ×2 (21:45)
[2021-10-26] MEDS ORDERED: dextrose 50%-water 50ml dispensing syringe IV PRN ×2 (21:45)
[2021-10-26] MEDS ORDERED: glucagon, human recombinant 1mg kit SUBCUT PRN (21:45)
[2021-10-26] MEDS ORDERED: MESSAGE TO PHARMACY PO ONE (21:45)
[2021-10-26] MEDS: insulin regular, human U-100 3ml vial - multi-dose SQ SCH (22:45)
[2021-10-27] VITALS (29 sets, daily range): BP systolic 141–186; BP diastolic 63–94
[2021-10-27] MEDS: dexmedetomidine/D5W 100mL 100 ML IV SCH ×6 (00:22→14:51)
[2021-10-27] MEDS: FENTANYL-0.9 % NACL/PF 100 ML IV PRN ×2 (00:23→05:59)
[2021-10-27] MEDS: heparin, porcine 5000 units/ml vial SQ SCH ×3 (00:24→16:32)
[2021-10-27] MEDS: methylPREDNISolone sod succ 125mg/2ml vial IV SCH ×3 (00:24→16:32)
[2021-10-27] MEDS: insulin regular, human U-100 3ml vial - multi-dose SQ SCH ×2 (02:36→09:28)
[2021-10-27 03:12] LABS: BASOPHILS % (AUTO) 0.1 % (0-1); EOSINOPHILS % (AUTO) 0 % (0-6); HEMATOCRIT 37.3 % (35.0-45.0); LYMPHOCYTES # (AUTO) 0.1 X10'3 (1.1-4.8); LYMPHOCYTES % (AUTO) 2.7 % (21-51); MEAN CORPUSCULAR HEMOGLOBIN 23.9 PG (27.0-31.0); MEAN CORPUSCULAR HGB CONC 29.5 g/dL (33.0-36.5); MEAN PLATELET VOLUME 8.3 FL (7.4-10.4); MONOCYTES # (AUTO) 0.3 X10'3 (0-0.9); MONOCYTES % (AUTO) 5.6 % (2-12); NEUTROPHILS % (AUTO) 91.6 % (42-75); PLATELET COUNT 248 X10'3 (140-440); RED BLOOD COUNT 4.61 X10'6 (4.20-5.60); RED CELL DISTRIBUTION WIDTH 19.2 % (11.5-14.5); WHITE BLOOD COUNT 5.4 X10'3 (4.5-11.0)
[2021-10-27 03:25] LABS: ALBUMIN 2.3 G/DL (3.4-5.0); ANION GAP 9 (8-16); BLOOD UREA NITROGEN 55 MG/DL (7-18); BUN/CREATININE RATIO 40.7 (6.6-38.0); CALCIUM 7.8 MG/DL (8.5-10.1); CHLORIDE 109 MMOL/L (99-107); CREATININE 1.35 MG/DL (0.40-0.90); GLUCOSE 171 MG/DL (70-104); POTASSIUM 4.7 MMOL/L (3.5-5.1); SODIUM 143 MMOL/L (135-145); TOTAL CARBON DIOXIDE 24.8 MMOL/L (24-32); eGFR 39 ML/MIN
[2021-10-27 03:32] LABS: ABG BASE EXCESS -4.5 mmol/L (-2.0-2.0); ABG HCO3 21.7 mmol/L (22.0-26.0); ABG OXYGEN SATURATION 94.3 % (94-97); ABG PCO2 (T) 43.8 mmHg (32.0-45.0); ABG PO2 (T) 73.4 mmHg (75.0-100.0); ALLEN'S TEST POSITIVE; FCOHb 0.2 % (0.0-3.9); FMetHb 0.2 % (0.0-1.5); FO2Hb 93.9 % (94-97); PATIENT TEMPERATURE 36.8; PEEP 5 cm H2O; RESPIRATORY RATE 18 b/min; TIDAL VOLUME 450 mL; TOTAL HEMOGLOBIN 12.4 G/dl (12.0-16.0)
[2021-10-27] MEDS: ipratropium 0.5 MG/2.5ML nebule IH SCH ×4 (03:33→20:20)
[2021-10-27] MEDS: hydrALAZINE 20mg/ml inj. IV PRN ×2 (04:01→18:11)
[2021-10-27 05:10] LABS: TOTAL CELLS COUNTED 100
[2021-10-27 05:11] LABS: ANISOCYTOSIS 2+; ELLIPTOCYTES FEW; PLATELET ESTIMATE NORMAL; POLYCHROMASIA FEW
[2021-10-27] MEDS: dextrose 5%-normal saline 1,000 ML IV SCH (06:25)
--- NOTE | 2021-10-27 07:51 | NUR ---
Reassessment: Pt remains intubated and sedated w/ TF running at goal of Vital High Protein at 70ml/hr and tolerating well. Pt also receiving D5NS at 70ml/hr providing additional 286kcals/day. D/w RN possibility to d/c IVF and potentially increase water flushes if MD agreeable. LBM 10/24 receiving routine colace, miralax, and dulcolax Q72hr. Will continue to monitor. Rec: 1. Continuos TF using Vital High Protein at 70ml/hr goal; would provide 1680ml volume/day, 1680 kcals, 1411ml water, and 147g protein. 2. D/c D5NS as pt receiving nutrition support at goal 2. Additional water flush 50ml Q6H per MD; consider increasing to 100ml Q4H 3. PALB Q /; daily wts 4. Routine bowel care 5. upon extubation; advance diet as medically indicated to heart healthy Addendum: 10/27/21 at [address] Amended: Links added.
[2021-10-27] MEDS: mineral oil/petrolatum ophthal oint EACHEYE SCH ×2 (08:00→14:10)
[2021-10-27] MEDS: budesonide 0.5mg/2ml UD nebule IH SCH ×2 (08:24→20:20)
[2021-10-27] MEDS: cefepime 1GM in D5W 50mL 50 ML IV SCH ×2 (08:26→20:46)
[2021-10-27] MEDS: docusate sodium 100mg/10ml UD cup OGT SCH ×2 (08:26→20:00)
[2021-10-27] MEDS: lactobacillus rhamnosus 10,000 MMU CELLS/CAPSULE PO SCH ×2 (08:27→20:00)
[2021-10-27] MEDS: famotidine/PF 10 mg/ml inj IV SCH (08:27)
[2021-10-27] MEDS: losartan 50mg tablet OGT SCH (08:27)
[2021-10-27] MEDS: flecainide 50mg tablet OGT SCH ×2 (08:27→20:00)
[2021-10-27] MEDS: mineral oil/petrolatum, white cream 113gm jar TP SCH ×2 (08:28→20:47)
[2021-10-27] MEDS: azithromycin 200mg/5ml oral suspension 15ml bottle OGT SCH (09:26)
--- NOTE | 2021-10-27 14:29 | NUR ---
Round with provider Dr. Kash gonzalez. D5 was stopped this morning and I receive orders to stop the insulin protocol given it was triggered by the fluid. Patient remains on CPAP since 0830 this morning. Patient has been weaning off of Fentanyl and Versed with provider ordering them to be stopped. Patient remains at moderate dose of Precedex at this time. When RT is available we will SVT the patient. Patient is able to follow commands. Given expectation of extubation, TF are stopped as well per provider.
[2021-10-27] MEDS ORDERED: furosemide 20 MG/2 ML vial IV STA (15:28)
--- NOTE | 2021-10-27 16:18 | NUR ---
Extubation Patient is extubated at 1515 and put to NC 6L. The patient displays some unexpected behaviors and is less alert than prior to extubation. Upon dozing off (on Precedex), she desats. Precedex is stopped. Provider is bedside during extubation. While dozing, given patient's neck anatomy and thick tongue, provider order's nasal trumpet to be inserted. RT inserts into left nare. Patient rebounds. At first, there are concerns for altered neuro status not associated with twilight medication, but given her anatomical presentation, practitioners bedside are unsure. Patient has had edematous hands for a few days, but this afternoon, her periorbital edema has increased. Given her CHF hx, provider orders lasix. Patient's urinary output begins to increase within minutes of administration. Within 1 hr post extubation, the patient's periorbital edema is markedly better from observation bedside. Patient continues to call out with nonsensical statements. At this time, the lights are turned low and the patient is provided a therapeutic environment to calm her.
[2021-10-27] MEDS: VANCOMYCIN 1GM/200ML IVPB 200 ML IV SCH (20:47)
[2021-10-27] MEDS: polyethylene glycol 3350 17gm powd pack PO SCH (20:48)
[2021-10-27] MEDS ORDERED: insulin glargine (Lantus) pen - multi-dose SQ SCH (21:00)
[2021-10-28] VITALS (34 sets, daily range): BP systolic 74–220; BP diastolic 67–101
[2021-10-28] MEDS: methylPREDNISolone sod succ 125mg/2ml vial IV SCH ×3 (00:03→19:29)
[2021-10-28] MEDS: heparin, porcine 5000 units/ml vial SQ SCH ×3 (00:05→16:19)
[2021-10-28] MEDS: dexmedetomidine/D5W 100mL 100 ML IV SCH ×6 (00:06→22:13)
[2021-10-28] MEDS: ipratropium 0.5 MG/2.5ML nebule IH SCH ×4 (02:28→21:12)
[2021-10-28 03:18] LABS: BASOPHILS % (AUTO) 0.1 % (0-1); EOSINOPHILS % (AUTO) 0 % (0-6); HEMATOCRIT 38.8 % (35.0-45.0); HEMOGLOBIN 11.6 g/dl (12.0-16.0); LYMPHOCYTES # (AUTO) 0.2 X10'3 (1.1-4.8); LYMPHOCYTES % (AUTO) 2.8 % (21-51); MEAN CORPUSCULAR HEMOGLOBIN 24.3 PG (27.0-31.0); MEAN PLATELET VOLUME 8.4 FL (7.4-10.4); MONOCYTES # (AUTO) 0.2 X10'3 (0-0.9); MONOCYTES % (AUTO) 3.5 % (2-12); NEUTROPHILS # (AUTO) 6.4 X10'3 (1.8-7.7); NEUTROPHILS % (AUTO) 93.6 % (42-75); PLATELET COUNT 249 X10'3 (140-440); RED BLOOD COUNT 4.79 X10'6 (4.20-5.60); RED CELL DISTRIBUTION WIDTH 18.7 % (11.5-14.5); WHITE BLOOD COUNT 6.8 X10'3 (4.5-11.0)
[2021-10-28 04:01] LABS: ALBUMIN 2.5 G/DL (3.4-5.0); ANION GAP 10 (8-16); BLOOD UREA NITROGEN 55 MG/DL (7-18); CALCIUM 8.4 MG/DL (8.5-10.1); CHLORIDE 108 MMOL/L (99-107); CREATININE 1.17 MG/DL (0.40-0.90); GLUCOSE 117 MG/DL (70-104); POTASSIUM 5.2 MMOL/L (3.5-5.1); PREALBUMIN 36.1 MG/DL (19-36); SODIUM 144 MMOL/L (135-145); TOTAL CARBON DIOXIDE 25.9 MMOL/L (24-32); eGFR 46 ML/MIN
[2021-10-28] MEDS: hydrALAZINE 20mg/ml inj. IV PRN ×4 (04:59→21:13)
--- NOTE | 2021-10-28 05:30 | NUR ---
Spoke with patient regarding condition of her hair, the majority of which is entangled in a gigantic knot which is too far gone to attempt manual untangling. Pt stats it has gotten this way because she doesn't have anyone to help her with it. I explained the only thing that can be done to correct is is to cut it out, but this would result in most of her head being cut very short. She states she would like that. To ensure she is coherent and truly wanting to have her hair cut, I explained I will revisit the conversation with her when I return faby, and if she is still desiring to be cut, I will do so.
[2021-10-28] MEDS: cefepime 1GM in D5W 50mL 50 ML IV SCH ×2 (07:42→19:29)
[2021-10-28] MEDS: mineral oil/petrolatum, white cream 113gm jar TP SCH ×2 (07:43→19:30)
[2021-10-28] MEDS: famotidine/PF 10 mg/ml inj IV SCH (07:44)
[2021-10-28] MEDS: docusate sodium 100mg/10ml UD cup OGT SCH ×2 (07:57→19:30)
[2021-10-28] MEDS: azithromycin 200mg/5ml oral suspension 15ml bottle OGT SCH (07:57)
[2021-10-28] MEDS: flecainide 50mg tablet OGT SCH ×2 (07:57→19:30)
[2021-10-28] MEDS: losartan 50mg tablet OGT SCH (07:57)
[2021-10-28] MEDS: lactobacillus rhamnosus 10,000 MMU CELLS/CAPSULE PO SCH ×2 (07:57→19:30)
[2021-10-28] MEDS: budesonide 0.5mg/2ml UD nebule IH SCH ×2 (08:11→21:12)
[2021-10-28 09:41] LABS: PHOSPHORUS 4.4 MG/DL (2.3-4.5)
--- NOTE | 2021-10-28 10:38 | NUR ---
Patient in room ICU 2037. I have received report from Elle GOMEZ and had the opportunity to ask questions and assume patient care.
--- NOTE | 2021-10-28 10:45 | NUR ---
Problems reprioritized. Patient report given, questions answered & plan of care reviewed with RAJINDER camp.
--- NOTE | 2021-10-28 11:30 | NUR ---
Swallow Study PT didn't pass so remains NPO and hell check tomorrow.
[2021-10-28] MEDS: metoprolol tartrate 1mg/ml inj IV PRN ×2 (12:42→20:01)
--- NOTE | 2021-10-28 18:27 | NUR ---
Problems reprioritized. Patient report given, questions answered & plan of care reviewed with Yaneth GOMEZ.
--- NOTE | 2021-10-28 18:30 | NUR ---
Pt very agitated. Screaming "I can't breathe", "I want to leave", "I feel threatened", etc. RR 37, O2sat 94%. Reorientation to the here and now, emotional reasurance and therapeutic communication unsuccessful. Assured O2Sat was in normal range to which she yelled "I don't care". Precidex titrated to 1.1 mcg/kg/min
--- NOTE | 2021-10-28 19:00 | NUR ---
Continues to be agitated, and tachypneic. O2Sat remains >92% with O2 at 2L/nc. continue with verbal reassurances, precidex increased to 1.3 mcg
[2021-10-28] MEDS: fentaNYL/PF 50MCG/1 ML 2ML syringe IV PRN ×3 (19:24→21:49)
--- NOTE | 2021-10-28 19:30 | NUR ---
No longer yelling, but remains tachypneic with moaning respirations (while awake and answering questions) O2 sat remains >92% on 2L/NC. Fentanyl 25 mcg given IVP and precidex titrated to 1.5 mcg as ordered
--- NOTE | 2021-10-28 19:40 | NUR ---
Some relief from 1st dose of fentanyl. RR 33-34, O2 Sat 92-94% with O2 2L/NC Addendum: 10/28/21 at 2247 by Yaneth Taylor RN Additional dose of Fentanyl 25 mcg given as ordered
[2021-10-28] MEDS: polyethylene glycol 3350 17gm powd pack PO SCH (21:00)
--- NOTE | 2021-10-28 21:00 | NUR ---
Blood pressure remains elevated despite sedation and pt appearing to be slightly calmer. Medicated with lopressor as ordered with fair results
--- NOTE | 2021-10-28 21:15 | NUR ---
BPS >180 apresoline given as ordered
--- NOTE | 2021-10-28 21:45 | NUR ---
Pt again agitated and yelling she can't breathe approx 5 min after receiving a breathing treatment. O2 sat 85% wiht RR 37. Changed from NC to simple mask at 15L with some improvement in sats, but not RR. Continues to c/o "not feeling well". medicated with fentanyl 25 mcg as ordered
[2021-10-28] MEDS: VANCOMYCIN 1GM/200ML IVPB 200 ML IV SCH (21:49)
--- NOTE | 2021-10-28 22:30 | NUR ---
appears to be dozing. continues with "moaning" respirations RR 23, O2 sat 94% precedex at 1.5 mcg. BPS 162. Will continue to monitor
--- NOTE | 2021-10-28 23:54 | NUR ---
pt sleeping quietly for last 30 min. awakens and immediately starts claiming "I can't breathe" RR was 22-25 while asleep O2 Sat at 98% on 10L simple mask. When awake, RR up to 32-35. Verbal assuarance and encouragement given
[2021-10-29] VITALS (27 sets, daily range): BP systolic 144–174; BP diastolic 70–87
[2021-10-29] MEDS: heparin, porcine 5000 units/ml vial SQ SCH ×3 (00:28→15:27)
[2021-10-29] MEDS: dexmedetomidine/D5W 100mL 100 ML IV SCH ×5 (01:05→15:26)
[2021-10-29] MEDS: ipratropium 0.5 MG/2.5ML nebule IH SCH ×4 (02:40→20:52)
[2021-10-29 03:35] LABS: BASOPHILS % (AUTO) 0.1 % (0-1); EOSINOPHILS % (AUTO) 0 % (0-6); LYMPHOCYTES # (AUTO) 0.3 X10'3 (1.1-4.8); LYMPHOCYTES % (AUTO) 3.6 % (21-51); MEAN PLATELET VOLUME 8.5 FL (7.4-10.4); MONOCYTES # (AUTO) 0.4 X10'3 (0-0.9); NEUTROPHILS # (AUTO) 8.3 X10'3 (1.8-7.7); NEUTROPHILS % (AUTO) 92.3 % (42-75); PLATELET COUNT 287 X10'3 (140-440)
[2021-10-29 03:53] LABS: ALBUMIN 2.3 G/DL (3.4-5.0); ANION GAP 7 (8-16); BLOOD UREA NITROGEN 55 MG/DL (7-18); BUN/CREATININE RATIO 49.5 (6.6-38.0); CALCIUM 8.1 MG/DL (8.5-10.1); CHLORIDE 110 MMOL/L (99-107); CREATININE 1.11 MG/DL (0.40-0.90); GLUCOSE 120 MG/DL (70-104); PHOSPHORUS 4.1 MG/DL (2.3-4.5); POTASSIUM 5.4 MMOL/L (3.5-5.1); SODIUM 143 MMOL/L (135-145); TOTAL CARBON DIOXIDE 26.3 MMOL/L (24-32); TRIGLYCERIDES 221 MG/DL (20-135); eGFR 49 ML/MIN
[2021-10-29 04:13] LABS: HEMATOCRIT 36.9 % (35.0-45.0); HEMOGLOBIN 11.7 g/dl (12.0-16.0); MEAN CORPUSCULAR HEMOGLOBIN 24.8 PG (27.0-31.0); RED BLOOD COUNT 4.73 X10'6 (4.20-5.60)
[2021-10-29 04:14] LABS: MEAN CORPUSCULAR HGB CONC 31.7 g/dL (33.0-36.5); RED CELL DISTRIBUTION WIDTH 18.5 % (11.5-14.5)
[2021-10-29] MEDS: docusate sodium 100mg/10ml UD cup OGT SCH ×2 (08:00→20:00)
[2021-10-29] MEDS: flecainide 50mg tablet OGT SCH ×2 (08:00→20:00)
[2021-10-29] MEDS: lactobacillus rhamnosus 10,000 MMU CELLS/CAPSULE PO SCH ×2 (08:00→20:00)
[2021-10-29] MEDS: losartan 50mg tablet OGT SCH (08:00)
[2021-10-29] MEDS: budesonide 0.5mg/2ml UD nebule IH SCH ×2 (08:13→20:52)
[2021-10-29] MEDS: mineral oil/petrolatum, white cream 113gm jar TP SCH ×2 (08:41→20:55)
[2021-10-29] MEDS: famotidine/PF 10 mg/ml inj IV SCH (08:41)
[2021-10-29] MEDS: cefepime 1GM in D5W 50mL 50 ML IV SCH ×2 (08:41→20:00)
[2021-10-29] MEDS: methylPREDNISolone sod succ 125mg/2ml vial IV SCH ×2 (08:41→20:01)
[2021-10-29] MEDS: bisacodyl 10mg suppository rectal RC SCH (11:15)
[2021-10-29] MEDS: dextrose 5%-1/2 normal saline 1,000 ML IV SCH (11:17)
--- NOTE | 2021-10-29 11:37 | NUR ---
F/u 10/29: Pt extubated w/ OG removed NPO this AM per BOARDING MOTHER recs pending possible NG placement today if pt willing per RN at rounds. D5/NS to start at 60ml/hr per hog driver at rounds. TF recs below given needs in case EN to start. Rec: 1. IF pt to remain NPO w/ continuos TF per MD; Vital AF at 60ml/hr goal; would provide 1440ml volume/day, 1728 kcals, 1166ml water, and 108g protein. 2. Wean D5/NS if nutrition support to start as EN advances 3. IF TF; additional water flush 100ml Q4H 4. IF TF; PALB Q /; daily wts 5. Routine bowel care 6. upon extubation; advance diet as medically indicated to heart healthy Addendum: 10/29/21 at [address] Amended: Links added.
[2021-10-29] MEDS: hydrALAZINE 20mg/ml inj. IV PRN (12:42)
[2021-10-29] MEDS ORDERED: VANCOMYCIN LEVEL IV ONE (20:30)
[2021-10-29] MEDS: polyethylene glycol 3350 17gm powd pack PO SCH (21:00)
[2021-10-29 21:15] LABS: VANCOMYCIN,TROUGH 17.9 UG/ML (6.0-14.0)
[2021-10-29] MEDS: fentaNYL/PF 50MCG/1 ML 2ML syringe IV PRN (22:09)
[2021-10-29] MEDS: VANCOMYCIN 1GM/200ML IVPB 200 ML IV SCH (22:11)
[2021-10-30] VITALS (23 sets, daily range): BP systolic 118–192; BP diastolic 60–98
[2021-10-30] MEDS: heparin, porcine 5000 units/ml vial SQ SCH ×2 (00:43→08:24)
[2021-10-30] MEDS: ipratropium 0.5 MG/2.5ML nebule IH SCH ×4 (01:50→20:25)
[2021-10-30 02:53] LABS: BASOPHILS % (AUTO) 0.1 % (0-1); EOSINOPHILS % (AUTO) 0 % (0-6); LYMPHOCYTES # (AUTO) 0.3 X10'3 (1.1-4.8); LYMPHOCYTES % (AUTO) 2.5 % (21-51); MEAN PLATELET VOLUME 8.7 FL (7.4-10.4); MONOCYTES # (AUTO) 0.4 X10'3 (0-0.9); MONOCYTES % (AUTO) 3.2 % (2-12); NEUTROPHILS # (AUTO) 11.6 X10'3 (1.8-7.7); NEUTROPHILS % (AUTO) 94.2 % (42-75); PLATELET COUNT 348 X10'3 (140-440); WHITE BLOOD COUNT 12.3 X10'3 (4.5-11.0)
[2021-10-30 03:15] LABS: MEAN CORPUSCULAR HEMOGLOBIN 25.2 PG (27.0-31.0); MEAN CORPUSCULAR HGB CONC 32.5 g/dL (33.0-36.5); MEAN CORPUSCULAR VOLUME 77.8 FL (78-98); RED BLOOD COUNT 4.38 X10'6 (4.20-5.60); RED CELL DISTRIBUTION WIDTH 18.3 % (11.5-14.5)
[2021-10-30 03:21] LABS: ALBUMIN 2.4 G/DL (3.4-5.0); ANION GAP 8 (8-16); BLOOD UREA NITROGEN 49 MG/DL (7-18); BUN/CREATININE RATIO 42.2 (6.6-38.0); CALCIUM 8.2 MG/DL (8.5-10.1); CHLORIDE 108 MMOL/L (99-107); CREATININE 1.16 MG/DL (0.40-0.90); GLUCOSE 101 MG/DL (70-104); PHOSPHORUS 3.6 MG/DL (2.3-4.5); SODIUM 141 MMOL/L (135-145); TOTAL CARBON DIOXIDE 25.3 MMOL/L (24-32); eGFR 47 ML/MIN
[2021-10-30] MEDS: dextrose 5%-1/2 normal saline 1,000 ML IV SCH ×2 (03:45→17:54)
[2021-10-30] MEDS: ondansetron/PF 4mg/2ml inj IV PRN (05:27)
--- NOTE | 2021-10-30 05:47 | NUR ---
Patient had vomiting twice during this shift MD paged order given zofran administered. All safety measures have been implemented, call light within reach patient remained in stable condition.Care will endorse to day shift RN
[2021-10-30] MEDS: budesonide 0.5mg/2ml UD nebule IH SCH ×2 (07:43→20:25)
[2021-10-30] MEDS: losartan 50mg tablet OGT SCH (08:22)
[2021-10-30] MEDS: lactobacillus rhamnosus 10,000 MMU CELLS/CAPSULE PO SCH ×2 (08:22→21:17)
[2021-10-30] MEDS: flecainide 50mg tablet OGT SCH ×2 (08:23→21:17)
[2021-10-30] MEDS: furosemide 40mg/4ml inj IV SCH ×2 (08:24→21:17)
[2021-10-30] MEDS: docusate sodium 100mg/10ml UD cup OGT SCH ×2 (08:24→21:18)
[2021-10-30] MEDS: famotidine/PF 10 mg/ml inj IV SCH (08:25)
[2021-10-30] MEDS: mineral oil/petrolatum, white cream 113gm jar TP SCH ×2 (08:25→20:00)
[2021-10-30] MEDS: methylPREDNISolone sod succ/PF 40mg inj. IV SCH ×2 (08:34→21:18)
[2021-10-30] MEDS: cefepime 1GM in D5W 50mL 50 ML IV SCH ×2 (08:35→21:18)
[2021-10-30] MEDS: acetaminophen 325mg tablet PO PRN ×3 (09:40→15:57)
[2021-10-30] MEDS: polyethylene glycol 3350 17gm powd pack PO SCH (21:00)
[2021-10-30] MEDS: fentaNYL/PF 50MCG/1 ML 2ML syringe IV PRN (21:17)
[2021-10-30] MEDS: linezolid 600mg/300ml PREMIX 300 ML IV SCH (21:18)
[2021-10-31] VITALS (23 sets, daily range): BP systolic 137–186; BP diastolic 59–100
[2021-10-31] MEDS: dexmedetomidine/D5W 100mL 100 ML IV SCH ×3 (00:30→18:40)
[2021-10-31] MEDS: heparin, porcine 5000 units/ml vial SQ SCH ×4 (02:00→16:04)
[2021-10-31] MEDS: ipratropium 0.5 MG/2.5ML nebule IH SCH ×4 (02:47→20:01)
[2021-10-31] MEDS: fentaNYL/PF 50MCG/1 ML 2ML syringe IV PRN (03:21)
[2021-10-31 03:33] LABS: BASOPHILS % (AUTO) 0.4 % (0-1); EOSINOPHILS % (AUTO) 0.5 % (0-6); LYMPHOCYTES # (AUTO) 0.9 X10'3 (1.1-4.8); LYMPHOCYTES % (AUTO) 11.1 % (21-51); MONOCYTES # (AUTO) 0.9 X10'3 (0-0.9); MONOCYTES % (AUTO) 11.6 % (2-12); NEUTROPHILS # (AUTO) 6.1 X10'3 (1.8-7.7); NEUTROPHILS % (AUTO) 76.4 % (42-75); PLATELET COUNT 310 X10'3 (140-440); WHITE BLOOD COUNT 7.9 X10'3 (4.5-11.0)
[2021-10-31 04:05] LABS: HEMATOCRIT 33.5 % (35.0-45.0); RED BLOOD COUNT 4.26 X10'6 (4.20-5.60)
[2021-10-31 04:06] LABS: MEAN CORPUSCULAR HEMOGLOBIN 25.4 PG (27.0-31.0); MEAN CORPUSCULAR HGB CONC 32.3 g/dL (33.0-36.5); MEAN CORPUSCULAR VOLUME 78.7 FL (78-98); RED CELL DISTRIBUTION WIDTH 18.6 % (11.5-14.5)
[2021-10-31 04:07] LABS: HEMOGLOBIN 10.8 g/dl (12.0-16.0)
[2021-10-31 04:16] LABS: ALANINE AMINOTRANSFERASE 17 U/L (12-78); ALBUMIN 2.3 G/DL (3.4-5.0); ALBUMIN/GLOBULIN RATIO 0.8 (1.1-1.5); ALKALINE PHOSPHATASE 81 IU/L (46-116); ANION GAP 4 (8-16); ASPARTATE AMINO TRANSFERASE 9 U/L (10-37); BILIRUBIN,TOTAL 0.4 MG/DL (0.1-1.0); BLOOD UREA NITROGEN 40 MG/DL (7-18); CALCIUM 7.9 MG/DL (8.5-10.1); CHLORIDE 112 MMOL/L (99-107); CREATININE 1.11 MG/DL (0.40-0.90); GLUCOSE 83 MG/DL (70-104); PHOSPHORUS 3.8 MG/DL (2.3-4.5); POTASSIUM 4.4 MMOL/L (3.5-5.1); PREALBUMIN 28.2 MG/DL (19-36); SODIUM 147 MMOL/L (135-145); TOTAL CARBON DIOXIDE 31.5 MMOL/L (24-32); TOTAL PROTEIN 5.3 G/DL (6.4-8.2); eGFR 49 ML/MIN
--- NOTE | 2021-10-31 04:42 | NUR ---
patient resting in bed. central line dc's per order. vitals stable. complaints of leg pain tonight, prn pain medication given as needed. Will continue to monitor.
[2021-10-31 05:08] LABS: PLATELET ESTIMATE NORMAL
[2021-10-31 05:13] LABS: ANISOCYTOSIS 2+; ELLIPTOCYTES FEW; STOMATOCYTES FEW
[2021-10-31 05:14] LABS: HYPOCHROMASIA 1+
--- NOTE | 2021-10-31 06:05 | NUR ---
Patient in room ICU 2037. I have received report from Barbi GOMEZ and had the opportunity to ask questions and assume patient care.
[2021-10-31] MEDS: docusate sodium 100mg/10ml UD cup OGT SCH ×2 (08:00→19:28)
[2021-10-31] MEDS: famotidine/PF 10 mg/ml inj IV SCH (08:16)
[2021-10-31] MEDS: furosemide 40mg/4ml inj IV SCH ×2 (08:16→19:25)
[2021-10-31] MEDS: methylPREDNISolone sod succ/PF 40mg inj. IV SCH (08:16)
[2021-10-31] MEDS: lactobacillus rhamnosus 10,000 MMU CELLS/CAPSULE PO SCH ×2 (08:17→19:26)
[2021-10-31] MEDS: cefepime 1GM in D5W 50mL 50 ML IV SCH ×2 (08:17→19:25)
[2021-10-31] MEDS: losartan 50mg tablet OGT SCH (08:17)
[2021-10-31] MEDS: flecainide 50mg tablet OGT SCH ×2 (08:18→19:26)
[2021-10-31] MEDS: mineral oil/petrolatum, white cream 113gm jar TP SCH ×2 (08:32→19:28)
[2021-10-31] MEDS: budesonide 0.5mg/2ml UD nebule IH SCH ×2 (08:37→20:01)
[2021-10-31] MEDS: linezolid 600mg/300ml PREMIX 300 ML IV SCH ×2 (09:33→19:27)
[2021-10-31] MEDS: amLODIPine 5mg tablet PO SCH (10:35)
--- NOTE | 2021-10-31 11:08 | NUR ---
Zyvox consult: Pt advanced to pureed/nectar thick diet yesterday per USED CAR SALES MANAGER recs. PO 0% initial meals pending meal intake this AM. Corpak documented in EMR however never placed no NG at this time. Noted pt started on zyvox; not appropriate for education at this time given no PO intake an AOx2 per EMR. D5/NS has now been stopped per MD. LBM 10/29 receiving routine colace. IF pt poor PO persists would certainly benefit from NG feeds to optimize nutrition status following recent extubation. Rec: 1. Continue pureed/nectar thick diet per USED CAR SALES MANAGER/MD recs; encourage PO 2. Monitor PO trends and appropriateness for ONS addition 3. IF pt poor PO to persist following extubation; recommend NG feeds per MD discretion. IF TF; Vital AF at 60ml/hr goal would provide 1440ml volume/day, 1728 kcals, 1166ml water, and 108g protein. 4. IF TF; additoinal water flush 100ml Q4H 5. Routine bowel care 6. weekly wts 7. Zyvox education deferred until pt more appropriate Addendum: 10/31/21 at [address] Amended: Links added.
[2021-10-31] MEDS: cloNIDine 0.1 mg tablet PO SCH ×2 (12:37→20:09)
--- NOTE | 2021-10-31 18:10 | NUR ---
Problems reprioritized. Patient report given, questions answered & plan of care reviewed with Yazmin GOMEZ.
[2021-10-31] MEDS: polyethylene glycol 3350 17gm powd pack PO SCH (20:08)
[2021-11-01] VITALS (20 sets, daily range): BP systolic 137–188; BP diastolic 63–95
[2021-11-01] MEDS: heparin, porcine 5000 units/ml vial SQ SCH ×3 (00:24→16:01)
[2021-11-01] MEDS: ipratropium 0.5 MG/2.5ML nebule IH SCH ×4 (01:56→21:41)
[2021-11-01 03:16] LABS: BASOPHILS % (AUTO) 0.2 % (0-1); EOSINOPHILS # (AUTO) 0.1 X10'3 (0-0.9); EOSINOPHILS % (AUTO) 0.9 % (0-6); LYMPHOCYTES # (AUTO) 1.2 X10'3 (1.1-4.8); LYMPHOCYTES % (AUTO) 17.9 % (21-51); MONOCYTES # (AUTO) 0.7 X10'3 (0-0.9); MONOCYTES % (AUTO) 10.9 % (2-12); NEUTROPHILS # (AUTO) 4.5 X10'3 (1.8-7.7); NEUTROPHILS % (AUTO) 70.1 % (42-75); PLATELET COUNT 308 X10'3 (140-440); WHITE BLOOD COUNT 6.5 X10'3 (4.5-11.0)
[2021-11-01] MEDS: dexmedetomidine/D5W 100mL 100 ML IV SCH (03:45)
[2021-11-01 03:50] LABS: ALANINE AMINOTRANSFERASE 19 U/L (12-78); ALBUMIN 2.6 G/DL (3.4-5.0); ALBUMIN/GLOBULIN RATIO 0.9 (1.1-1.5); ALKALINE PHOSPHATASE 87 IU/L (46-116); ANION GAP 7 (8-16); ASPARTATE AMINO TRANSFERASE 8 U/L (10-37); BILIRUBIN,TOTAL 0.5 MG/DL (0.1-1.0); BLOOD UREA NITROGEN 32 MG/DL (7-18); BUN/CREATININE RATIO 26.7 (6.6-38.0); CALCIUM 8.5 MG/DL (8.5-10.1); CHLORIDE 103 MMOL/L (99-107); GLUCOSE 82 MG/DL (70-104); POTASSIUM 3.9 MMOL/L (3.5-5.1); SODIUM 147 MMOL/L (135-145); TOTAL CARBON DIOXIDE 36.7 MMOL/L (24-32); TOTAL PROTEIN 5.6 G/DL (6.4-8.2); eGFR 45 ML/MIN
[2021-11-01 03:53] LABS: RED BLOOD COUNT 4.57 X10'6 (4.20-5.60)
[2021-11-01 03:54] LABS: HEMATOCRIT 35.6 % (35.0-45.0); HEMOGLOBIN 11.5 g/dl (12.0-16.0); MEAN CORPUSCULAR HEMOGLOBIN 25.1 PG (27.0-31.0); MEAN CORPUSCULAR HGB CONC 32.1 g/dL (33.0-36.5); MEAN CORPUSCULAR VOLUME 78.1 FL (78-98); RED CELL DISTRIBUTION WIDTH 18.9 % (11.5-14.5)
[2021-11-01] MEDS: acetaminophen 325mg tablet PO PRN (05:19)
[2021-11-01] MEDS: labetalol 20mg/4ml (5mg/ml) syringe IV PRN (06:00)
[2021-11-01] MEDS: budesonide 0.5mg/2ml UD nebule IH SCH ×2 (07:22→21:42)
[2021-11-01] MEDS: mineral oil/petrolatum, white cream 113gm jar TP SCH ×2 (08:00→20:27)
[2021-11-01] MEDS: docusate sodium 100mg/10ml UD cup OGT SCH (08:00)
[2021-11-01] MEDS: cefepime 1GM in D5W 50mL 50 ML IV SCH ×2 (08:22→19:56)
[2021-11-01] MEDS: lactobacillus rhamnosus 10,000 MMU CELLS/CAPSULE PO SCH ×2 (08:28→19:55)
[2021-11-01] MEDS: amLODIPine 5mg tablet PO SCH (08:28)
[2021-11-01] MEDS: cloNIDine 0.1 mg tablet PO SCH ×3 (08:28→20:26)
[2021-11-01] MEDS: flecainide 50mg tablet OGT SCH ×2 (08:28→19:57)
[2021-11-01] MEDS: losartan 50mg tablet OGT SCH (08:29)
[2021-11-01] MEDS: furosemide 40mg/4ml inj IV SCH ×2 (08:31→19:56)
[2021-11-01] MEDS: methylPREDNISolone sod succ/PF 40mg inj. IV SCH (08:32)
[2021-11-01] MEDS: famotidine/PF 10 mg/ml inj IV SCH (08:32)
[2021-11-01] MEDS: linezolid 600mg/300ml PREMIX 300 ML IV SCH ×2 (09:55→20:27)
[2021-11-01] MEDS: bisacodyl 10mg suppository rectal RC SCH (10:15)
[2021-11-01] MEDS: lactose-reduced food (Ensure Enlive) - 237ml bottle PO SCH (13:00)
[2021-11-01] MEDS: metoprolol tartrate 1mg/ml inj IV PRN (17:07)
[2021-11-01] MEDS: docusate sod 100mg capsule PO SCH (19:56)
[2021-11-01] MEDS: polyethylene glycol 3350 17gm powd pack PO SCH (20:27)
[2021-11-02] MEDS: heparin, porcine 5000 units/ml vial SQ SCH ×3 (00:01→15:39)
[2021-11-02] MEDS: metoprolol tartrate 1mg/ml inj IV PRN (00:27)
[2021-11-02 02:00] VITALS: BP 140/84
[2021-11-02] MEDS: ipratropium 0.5 MG/2.5ML nebule IH SCH ×4 (02:50→20:45)
--- NOTE | 2021-11-02 06:23 | NUR ---
Patient in room PCU 3021. I have received report from Zehra and had the opportunity to ask questions and assume patient care.
[2021-11-02 07:00] VITALS: BP 158/83
[2021-11-02] MEDS: budesonide 0.5mg/2ml UD nebule IH SCH ×2 (07:54→20:45)
[2021-11-02] MEDS: lactose-reduced food (Ensure Enlive) - 237ml bottle PO SCH ×3 (08:00→18:09)
[2021-11-02] MEDS: furosemide 40mg/4ml inj IV SCH ×2 (09:13→20:15)
[2021-11-02] MEDS: methylPREDNISolone sod succ/PF 40mg inj. IV SCH (09:14)
[2021-11-02] MEDS: famotidine/PF 10 mg/ml inj IV SCH (09:14)
[2021-11-02] MEDS: lactobacillus rhamnosus 10,000 MMU CELLS/CAPSULE PO SCH ×2 (09:15→20:15)
[2021-11-02] MEDS: cloNIDine 0.1 mg tablet PO SCH ×3 (09:15→20:15)
[2021-11-02] MEDS: flecainide 50mg tablet OGT SCH ×2 (09:16→20:15)
[2021-11-02] MEDS: amLODIPine 5mg tablet PO SCH (09:16)
[2021-11-02] MEDS: losartan 50mg tablet OGT SCH (09:17)
[2021-11-02] MEDS: docusate sod 100mg capsule PO SCH ×2 (09:17→20:15)
[2021-11-02] MEDS: linezolid 600mg/300ml PREMIX 300 ML IV SCH ×2 (09:18→20:15)
[2021-11-02] MEDS: mineral oil/petrolatum, white cream 113gm jar TP SCH (09:18)
[2021-11-02] MEDS: cefepime 1GM in D5W 50mL 50 ML IV SCH ×2 (09:23→20:16)
[2021-11-02 11:00] VITALS: BP 147/83
[2021-11-02 13:02] LABS: BASOPHILS % (AUTO) 0.5 % (0-1); EOSINOPHILS % (AUTO) 0.2 % (0-6); HEMATOCRIT 39.1 % (35.0-45.0); HEMOGLOBIN 12.3 g/dl (12.0-16.0); LYMPHOCYTES # (AUTO) 0.5 X10'3 (1.1-4.8); LYMPHOCYTES % (AUTO) 5.7 % (21-51); MEAN CORPUSCULAR HEMOGLOBIN 24.6 PG (27.0-31.0); MEAN CORPUSCULAR HGB CONC 31.4 g/dL (33.0-36.5); MEAN CORPUSCULAR VOLUME 78.2 FL (78-98); MEAN PLATELET VOLUME 8.8 FL (7.4-10.4); MONOCYTES # (AUTO) 0.3 X10'3 (0-0.9); MONOCYTES % (AUTO) 3.2 % (2-12); NEUTROPHILS # (AUTO) 7.8 X10'3 (1.8-7.7); NEUTROPHILS % (AUTO) 90.4 % (42-75); PLATELET COUNT 336 X10'3 (140-440); RED CELL DISTRIBUTION WIDTH 19.2 % (11.5-14.5); WHITE BLOOD COUNT 8.6 X10'3 (4.5-11.0)
[2021-11-02 13:18] LABS: ALANINE AMINOTRANSFERASE 19 U/L (12-78); ALBUMIN 3.1 G/DL (3.4-5.0); ALBUMIN/GLOBULIN RATIO 0.9 (1.1-1.5); ALKALINE PHOSPHATASE 100 IU/L (46-116); ANION GAP 2 (8-16); ASPARTATE AMINO TRANSFERASE 13 U/L (10-37); BILIRUBIN,TOTAL 0.7 MG/DL (0.1-1.0); BLOOD UREA NITROGEN 27 MG/DL (7-18); BUN/CREATININE RATIO 21.1 (6.6-38.0); CALCIUM 8.8 MG/DL (8.5-10.1); CHLORIDE 100 MMOL/L (99-107); CREATININE 1.28 MG/DL (0.40-0.90); GLUCOSE 146 MG/DL (70-104); PHOSPHORUS 2.5 MG/DL (2.3-4.5); POTASSIUM 3.8 MMOL/L (3.5-5.1); SODIUM 143 MMOL/L (135-145); TOTAL PROTEIN 6.7 G/DL (6.4-8.2); eGFR 42 ML/MIN
[2021-11-02 13:24] LABS: ANISOCYTOSIS 2+; MICROCYTOSIS 1+; PLATELET ESTIMATE NORMAL
[2021-11-02 13:25] LABS: POLYCHROMASIA 1+; STOMATOCYTES 2+
[2021-11-02 13:28] LABS: TOTAL CARBON DIOXIDE 41.1 MMOL/L (24-32)
--- NOTE | 2021-11-02 14:00 | NUR ---
Spoke génesissingh Orta in regards to critical value CO2 41.1. aware, No new order at this time
[2021-11-02 15:00] VITALS: BP 139/56
[2021-11-02 18:00] VITALS: BP 117/49
--- NOTE | 2021-11-02 19:00 | NUR ---
Problems reprioritized. Patient report given, questions answered & plan of care reviewed with Bryanna.
[2021-11-02] MEDS: polyethylene glycol 3350 17gm powd pack PO SCH (20:15)
[2021-11-02 22:00] VITALS: BP 121/58
[2021-11-03] MEDS: heparin, porcine 5000 units/ml vial SQ SCH ×4 (00:33→23:29)
[2021-11-03 02:00] VITALS: BP 138/55
[2021-11-03] MEDS: ipratropium 0.5 MG/2.5ML nebule IH SCH ×4 (02:38→21:11)
[2021-11-03] MEDS: mineral oil/petrolatum, white cream 113gm jar TP SCH ×3 (03:00→20:11)
[2021-11-03 06:00] VITALS: BP 113/74
[2021-11-03] MEDS ORDERED: cefepime inj. 1 GM in normal saline 100ml IV soln 100 ML IV SCH (06:21)
--- NOTE | 2021-11-03 06:35 | NUR ---
Problems reprioritized. Patient report given, questions answered & plan of care reviewed with Sadie GOMEZ .
[2021-11-03] MEDS: budesonide 0.5mg/2ml UD nebule IH SCH ×2 (07:24→21:11)
[2021-11-03 07:33] LABS: BASOPHILS % (AUTO) 0.1 % (0-1); EOSINOPHILS # (AUTO) 0.1 X10'3 (0-0.9); EOSINOPHILS % (AUTO) 0.6 % (0-6); HEMATOCRIT 39.3 % (35.0-45.0); HEMOGLOBIN 12.2 g/dl (12.0-16.0); LYMPHOCYTES # (AUTO) 1.6 X10'3 (1.1-4.8); LYMPHOCYTES % (AUTO) 19.7 % (21-51); MEAN CORPUSCULAR HEMOGLOBIN 24.6 PG (27.0-31.0); MEAN CORPUSCULAR HGB CONC 31.1 g/dL (33.0-36.5); MEAN CORPUSCULAR VOLUME 79.1 FL (78-98); MEAN PLATELET VOLUME 9.2 FL (7.4-10.4); MONOCYTES # (AUTO) 0.8 X10'3 (0-0.9); MONOCYTES % (AUTO) 9.7 % (2-12); NEUTROPHILS # (AUTO) 5.5 X10'3 (1.8-7.7); NEUTROPHILS % (AUTO) 69.9 % (42-75); PLATELET COUNT 330 X10'3 (140-440); RED BLOOD COUNT 4.97 X10'6 (4.20-5.60); RED CELL DISTRIBUTION WIDTH 19.6 % (11.5-14.5); WHITE BLOOD COUNT 7.9 X10'3 (4.5-11.0)
[2021-11-03] MEDS: lactose-reduced food (Ensure Enlive) - 237ml bottle PO SCH ×3 (08:00→18:33)
[2021-11-03 08:34] LABS: ALANINE AMINOTRANSFERASE 19 U/L (12-78); ALBUMIN 3.1 G/DL (3.4-5.0); ALBUMIN/GLOBULIN RATIO 0.9 (1.1-1.5); ALKALINE PHOSPHATASE 97 IU/L (46-116); ANION GAP 4 (8-16); ASPARTATE AMINO TRANSFERASE 12 U/L (10-37); BILIRUBIN,TOTAL 0.6 MG/DL (0.1-1.0); BLOOD UREA NITROGEN 29 MG/DL (7-18); BUN/CREATININE RATIO 21.8 (6.6-38.0); CALCIUM 8.9 MG/DL (8.5-10.1); CHLORIDE 100 MMOL/L (99-107); CREATININE 1.33 MG/DL (0.40-0.90); GLUCOSE 84 MG/DL (70-104); POTASSIUM 3.2 MMOL/L (3.5-5.1); SODIUM 144 MMOL/L (135-145); TOTAL CARBON DIOXIDE 39.6 MMOL/L (24-32); TOTAL PROTEIN 6.5 G/DL (6.4-8.2); eGFR 40 ML/MIN
[2021-11-03] MEDS: linezolid 600mg/300ml PREMIX 300 ML IV SCH ×2 (09:41→19:48)
[2021-11-03] MEDS: cefepime 1GM in D5W 50mL 50 ML IV SCH (09:42)
[2021-11-03] MEDS: furosemide 40mg/4ml inj IV SCH ×2 (09:43→19:47)
[2021-11-03] MEDS: methylPREDNISolone sod succ/PF 40mg inj. IV SCH (09:43)
[2021-11-03] MEDS: famotidine/PF 10 mg/ml inj IV SCH (09:44)
[2021-11-03] MEDS: flecainide 50mg tablet OGT SCH ×2 (09:46→19:47)
[2021-11-03] MEDS: lactobacillus rhamnosus 10,000 MMU CELLS/CAPSULE PO SCH ×2 (09:46→19:47)
[2021-11-03] MEDS: losartan 50mg tablet OGT SCH (09:47)
[2021-11-03] MEDS: cloNIDine 0.1 mg tablet PO SCH ×3 (09:48→20:10)
[2021-11-03] MEDS: docusate sod 100mg capsule PO SCH ×2 (09:49→19:48)
[2021-11-03] MEDS: amLODIPine 5mg tablet PO SCH (09:49)
--- NOTE | 2021-11-03 10:17 | NUR ---
Reassessment: Pt continues on Puree diet now thin liquids per COPY COORDINATOR, w/ low PO intake, avg 21% x 7 meals not meeting needs. Ensure Enlive TID was ordered 2/ and pt documented to have consumed 100% of one ONS so far. ONS alone would meet 67% of est energy needs and 74% of est protein needs if consumed 100%. Currently on 4L NC. LBM 2/ receiving routine colace and miralax. No new nutrition intervention implemented at this time, will continue to monitor. Rec: 1. Continue pureed per COPY COORDINATOR/MD recs; encourage PO 2. Ensure Enlive TID 3. IF pt poor PO to persist following extubation; recommend NG feeds per MD discretion. IF TF; Vital AF at 60ml/hr goal would provide 1440ml volume/day, 1728 kcals, 1166ml water, and 108g protein. 4. IF TF; additional water flush 100ml Q4H 5. Routine bowel care 6. weekly wts 7. Zyvox education deferred until pt more appropriate Addendum: 11/03/21 at [address] Amended: Links added.
--- NOTE | 2021-11-03 11:50 | NUR ---
page to dr. Beebe regarding low potassium PAGER ID: [phone] MESSAGE: [id number] Lena Beebe, The potassium is 3.2 today and the patient is now on protocol. Thanks, Sadie GOMEZ PCU ext [phone]
[2021-11-03 12:30] LABS: ANISOCYTOSIS 2+; ELLIPTOCYTES FEW; HYPOCHROMASIA 1+; MICROCYTOSIS 1+; PLATELET ESTIMATE NORMAL
[2021-11-03 12:31] LABS: STOMATOCYTES 2+; TEAR DROP CELLS FEW
[2021-11-03 13:00] VITALS: BP 131/71
--- NOTE | 2021-11-03 14:29 | NUR ---
per patient it's okay to speak with Stuart, her [facility] worker. Stuart's contact number is [phone]
[2021-11-03 15:00] VITALS: BP 119/66
[2021-11-03] MEDS ORDERED: ondansetron 4mg rapidly disintigrating tab PO PRN (15:30)
[2021-11-03 18:00] VITALS: BP 107/55
--- NOTE | 2021-11-03 18:42 | NUR ---
Problems reprioritized. Patient report given, questions answered & plan of care reviewed with JASON Gould.
[2021-11-03] MEDS: cefepime inj. 1 GM in normal saline 100ml IV soln 100 ML IV SCH (19:48)
[2021-11-03] MEDS ORDERED: potassium Cl 20 mEq SR tablet PO PRN (20:00)
[2021-11-03] MEDS: K and/or MAG REPLACEMENT MC SCH (20:00)
[2021-11-03] MEDS: polyethylene glycol 3350 17gm powd pack PO SCH (20:10)
[2021-11-03 22:00] VITALS: BP 111/87
[2021-11-03] MEDS: potassium Cl 20 mEq SR tablet PO PRN (23:29)
[2021-11-04 02:00] VITALS: BP 119/61
[2021-11-04] MEDS: ipratropium 0.5 MG/2.5ML nebule IH SCH ×4 (02:45→21:25)
[2021-11-04 06:15] LABS: BASOPHILS % (AUTO) 0.5 % (0-1); EOSINOPHILS # (AUTO) 0.1 X10'3 (0-0.9); EOSINOPHILS % (AUTO) 0.8 % (0-6); HEMATOCRIT 39.9 % (35.0-45.0); HEMOGLOBIN 12.3 g/dl (12.0-16.0); LYMPHOCYTES # (AUTO) 1.5 X10'3 (1.1-4.8); LYMPHOCYTES % (AUTO) 18.4 % (21-51); MEAN CORPUSCULAR HEMOGLOBIN 24.9 PG (27.0-31.0); MEAN CORPUSCULAR HGB CONC 30.9 g/dL (33.0-36.5); MEAN CORPUSCULAR VOLUME 80.8 FL (78-98); MEAN PLATELET VOLUME 9.2 FL (7.4-10.4); MONOCYTES # (AUTO) 0.7 X10'3 (0-0.9); MONOCYTES % (AUTO) 8.5 % (2-12); NEUTROPHILS # (AUTO) 5.9 X10'3 (1.8-7.7); NEUTROPHILS % (AUTO) 71.8 % (42-75); PLATELET COUNT 300 X10'3 (140-440); RED BLOOD COUNT 4.94 X10'6 (4.20-5.60); RED CELL DISTRIBUTION WIDTH 19.2 % (11.5-14.5); WHITE BLOOD COUNT 8.3 X10'3 (4.5-11.0)
--- NOTE | 2021-11-04 06:48 | NUR ---
Problems reprioritized. Patient report given, questions answered & plan of care reviewed with Sadie GOMEZ .
[2021-11-04 07:00] VITALS: BP 137/58
[2021-11-04] MEDS: budesonide 0.5mg/2ml UD nebule IH SCH ×2 (07:49→21:25)
[2021-11-04 08:14] LABS: ALANINE AMINOTRANSFERASE 26 U/L (12-78); ALBUMIN 3.1 G/DL (3.4-5.0); ALBUMIN/GLOBULIN RATIO 0.9 (1.1-1.5); ALKALINE PHOSPHATASE 101 IU/L (46-116); ANION GAP 8 (8-16); ASPARTATE AMINO TRANSFERASE 12 U/L (10-37); BILIRUBIN,TOTAL 0.5 MG/DL (0.1-1.0); BLOOD UREA NITROGEN 38 MG/DL (7-18); BUN/CREATININE RATIO 27.1 (6.6-38.0); CALCIUM 8.9 MG/DL (8.5-10.1); CHLORIDE 99 MMOL/L (99-107); GLUCOSE 91 MG/DL (70-104); POTASSIUM 3.7 MMOL/L (3.5-5.1); PREALBUMIN 31.6 MG/DL (19-36); SODIUM 146 MMOL/L (135-145); TOTAL CARBON DIOXIDE 39.4 MMOL/L (24-32); TOTAL PROTEIN 6.7 G/DL (6.4-8.2); eGFR 38 ML/MIN
[2021-11-04] MEDS: linezolid 600mg/300ml PREMIX 300 ML IV SCH (08:26)
[2021-11-04] MEDS: cefepime inj. 1 GM in normal saline 100ml IV soln 100 ML IV SCH (08:26)
[2021-11-04] MEDS: lactobacillus rhamnosus 10,000 MMU CELLS/CAPSULE PO SCH ×2 (08:36→21:09)
[2021-11-04] MEDS: famotidine/PF 10 mg/ml inj IV SCH (08:36)
[2021-11-04] MEDS: methylPREDNISolone sod succ/PF 40mg inj. IV SCH (08:36)
[2021-11-04] MEDS: furosemide 40mg/4ml inj IV SCH ×2 (08:36→21:18)
[2021-11-04] MEDS: docusate sod 100mg capsule PO SCH ×2 (08:36→21:09)
[2021-11-04] MEDS: cloNIDine 0.1 mg tablet PO SCH ×3 (08:37→21:10)
[2021-11-04] MEDS: flecainide 50mg tablet OGT SCH ×2 (08:37→21:10)
[2021-11-04] MEDS: losartan 50mg tablet OGT SCH (08:37)
[2021-11-04] MEDS: mineral oil/petrolatum, white cream 113gm jar TP SCH ×2 (08:39→21:12)
[2021-11-04] MEDS: bisacodyl 10mg suppository rectal RC SCH (08:54)
[2021-11-04] MEDS: amLODIPine 5mg tablet PO SCH (08:54)
[2021-11-04] MEDS: heparin, porcine 5000 units/ml vial SQ SCH ×2 (08:54→15:19)
[2021-11-04] MEDS: lactose-reduced food (Ensure Enlive) - 237ml bottle PO SCH ×3 (08:55→18:05)
[2021-11-04] MEDS: K and/or MAG REPLACEMENT MC SCH ×2 (08:58→20:00)
[2021-11-04 11:00] VITALS: BP 137/69
[2021-11-04 15:00] VITALS: BP 102/52
[2021-11-04 18:00] VITALS: BP 115/63
--- NOTE | 2021-11-04 18:18 | NUR ---
Problems reprioritized. Patient report given, questions answered & plan of care reviewed with JASON Gould.
[2021-11-04] MEDS: polyethylene glycol 3350 17gm powd pack PO SCH (21:10)
[2021-11-04 22:00] VITALS: BP 102/52
[2021-11-05 02:00] VITALS: BP 132/75
[2021-11-05] MEDS: ipratropium 0.5 MG/2.5ML nebule IH SCH ×4 (02:50→21:37)
[2021-11-05] MEDS: heparin, porcine 5000 units/ml vial SQ SCH ×3 (03:15→17:16)
[2021-11-05 06:00] VITALS: BP 120/58
--- NOTE | 2021-11-05 07:00 | NUR ---
Problems reprioritized. Patient report given, questions answered & plan of care reviewed with Sammi GOMEZ .
--- NOTE | 2021-11-05 07:07 | NUR ---
Patient in room PCU 3021. I have received report from Bryanna and had the opportunity to ask questions and assume patient care.
[2021-11-05] MEDS ORDERED: methylPREDNISolone sod succ/PF 40mg inj. IV SCH (08:00)
[2021-11-05] MEDS: famotidine/PF 10 mg/ml inj IV SCH (08:23)
[2021-11-05] MEDS: furosemide 40mg/4ml inj IV SCH ×2 (08:23→21:31)
[2021-11-05] MEDS: docusate sod 100mg capsule PO SCH ×2 (08:24→20:00)
[2021-11-05] MEDS: lactobacillus rhamnosus 10,000 MMU CELLS/CAPSULE PO SCH ×2 (08:24→21:30)
[2021-11-05] MEDS: flecainide 50mg tablet OGT SCH ×2 (08:24→21:29)
[2021-11-05] MEDS: losartan 50mg tablet OGT SCH (08:25)
[2021-11-05] MEDS: cloNIDine 0.1 mg tablet PO SCH ×3 (08:25→21:32)
[2021-11-05] MEDS: amLODIPine 5mg tablet PO SCH (08:25)
[2021-11-05] MEDS: mineral oil/petrolatum, white cream 113gm jar TP SCH ×2 (08:35→20:00)
[2021-11-05] MEDS: lactose-reduced food (Ensure Enlive) - 237ml bottle PO SCH ×3 (08:36→18:35)
[2021-11-05] MEDS: potassium Cl 20 mEq SR tablet PO PRN ×2 (08:41→13:53)
[2021-11-05] MEDS: K and/or MAG REPLACEMENT MC SCH ×2 (08:42→20:00)
[2021-11-05] MEDS: budesonide 0.5mg/2ml UD nebule IH SCH ×2 (09:20→21:37)
[2021-11-05 11:00] VITALS: BP 129/62
--- NOTE | 2021-11-05 13:02 | NUR ---
WOUND INFECTION EDUCATION PROVIDED BY WOUND CARE 1. Patient instructed to call their primary doctor, or go the ED immediately if any of the following symptoms occur: * Increased pain in wound * Increase in drainage from the wound * Redness in the skin surrounding the wound * Warmth in the skin surrounding the wound * Bleeding from the wound * Temperature of 101 or greater 2. If any of these occur while in the hospital tell a nurse immediately. PRESSURE ULCER EDUCATION: DEFINITION: A pressure ulcer is an area of skin that breaks down when you stay in one position too long. The constant pressure against the skin reduces the blood flow to that area and the affected tissue dies. CAUSES: "Being bedridden or in a wheelchair "Fragile skin "Having a chronic condition, such as diabetes or vascular disease "Inability to move certain parts of your body without assistance "Older age "Incontinence of urine or stool SYMPTOMS: "A reddened area that DOES NOT turn white when pressed on - this can be the beginning of a pressure ulcer "A blister, deep sore or a crater - these can be advanced pressure ulcers FIRST AID: "Relieve the pressure on this area "Keep the area clean and dry "Call your primary doctor if you see any of the above symptoms "DO NOT massage the area "DO NOT use a donut shaped or ring shaped pillow- these actually interfere with the blood flow and cause complications PREVENTION: "Check for pressure ulcers everyday "Change position at least every two hours to relieve pressure "Use items that help relieve pressure- pillows, sheepskin, foam padding, and powders. "Keep skin clean and dry "Eat healthy well balanced meals "Exercise daily IF YOU SEE ANY OF THESE SYMPTOMS WHILE IN THE HOSPITAL - TELL YOUR NURSE IMMEDIATELY. IF YOU SEE ANY OF THESE SYMPTOMS WHILE AT HOME OR HAVE ANY QUESTIONS OR CONCERNS ABOUT PRESSURE ULCERS - CALL YOUR PRIMARY DOCTOR IMMEDIATELY. Addendum: 11/05/21 at 1302 by Madison Yepez RN Amended: Links added.
[2021-11-05 15:00] VITALS: BP 134/60
[2021-11-05 18:00] VITALS: BP 113/59
--- NOTE | 2021-11-05 18:31 | NUR ---
Problems reprioritized. Patient report given, questions answered & plan of care reviewed with Stephany.
[2021-11-05] MEDS: polyethylene glycol 3350 17gm powd pack PO SCH (21:30)
[2021-11-05 22:00] VITALS: BP 127/67
--- NOTE | 2021-11-06 | NUR ---
Patient refused potassuim supplement
[2021-11-06] MEDS: heparin, porcine 5000 units/ml vial SQ SCH ×3 (00:48→16:09)
[2021-11-06 02:00] VITALS: BP 135/67
[2021-11-06] MEDS: ipratropium 0.5 MG/2.5ML nebule IH SCH ×4 (03:30→22:28)
[2021-11-06 06:00] VITALS: BP 120/61
--- NOTE | 2021-11-06 06:09 | NUR ---
Patient in bed awake and alert bedscale is broken patient refused assistance to get out of bed to be weighed.
--- NOTE | 2021-11-06 06:17 | NUR ---
Patient in room PCU 3021. I have received report from Stephany and had the opportunity to ask questions and assume patient care.
[2021-11-06] MEDS: furosemide 40mg/4ml inj IV SCH ×2 (07:58→20:17)
[2021-11-06] MEDS: K and/or MAG REPLACEMENT MC SCH ×2 (08:00→20:00)
[2021-11-06] MEDS: famotidine/PF 10 mg/ml inj IV SCH (08:00)
[2021-11-06] MEDS: lactose-reduced food (Ensure Enlive) - 237ml bottle PO SCH ×3 (08:05→18:10)
[2021-11-06] MEDS: mineral oil/petrolatum, white cream 113gm jar TP SCH ×2 (08:08→20:17)
[2021-11-06] MEDS: prednisone 10mg tablet PO SCH (08:09)
[2021-11-06] MEDS: flecainide 50mg tablet OGT SCH ×2 (08:09→20:16)
[2021-11-06] MEDS: lactobacillus rhamnosus 10,000 MMU CELLS/CAPSULE PO SCH ×2 (08:09→20:16)
[2021-11-06] MEDS: docusate sod 100mg capsule PO SCH ×2 (08:09→20:17)
[2021-11-06] MEDS: amLODIPine 5mg tablet PO SCH (08:11)
[2021-11-06] MEDS: losartan 50mg tablet OGT SCH (08:12)
[2021-11-06] MEDS: cloNIDine 0.1 mg tablet PO SCH ×2 (08:12→13:00)
[2021-11-06] MEDS: budesonide 0.5mg/2ml UD nebule IH SCH ×2 (08:28→22:29)
[2021-11-06 11:00] VITALS: BP 101/40
--- NOTE | 2021-11-06 11:25 | NUR ---
Reassessment: Pt s/p f/u BSS with ST recs minced and moist food with thin liquids. Since texture upgrade PO intake has slightly improved, documented with 25-50% PO intake, previously refusing most meals. Pt receiving an Ensure Enlive TIDWM with average 50% PO intake of ONS. Overall pt not fully meeting estimated nutrient needs at this time. See below for nutrition interventions that were d/w dietary based on patient's preferences at previous admit. Noted pt no longer receiving Linezolid, low tyramine nutrition therapy education not indicated. LBM 11/05. Will continue to follow closely and monitor need for further nutrition intervention. Recommendations: 1. Continue MM5 diet with thin liquids per ST recs 2. Ensure Enlive TIDWM 3. Gelatin WB, chocolate pudding WL, cottage cheese WS; no fish 4. Encourage PO intake of meals and ONS 5. Monitor need for supplemental TF; IF TF, Vital AF at 60ml/hr goal to provide 1440 ml volume/day, 1728 kcal, 1166 ml water, and 108 g protein. 6. IF TF; additional 100 mL water flush Q4H 7. Routine bowel care 8. Weekly scaled weights Addendum: 11/06/21 at [address] Amended: Links added.
[2021-11-06 15:00] VITALS: BP 138/69
[2021-11-06 18:00] VITALS: BP 110/71
[2021-11-06] MEDS: polyethylene glycol 3350 17gm powd pack PO SCH (20:39)
[2021-11-06 22:00] VITALS: BP 141/82
[2021-11-07] MEDS: cloNIDine 0.1 mg tablet PO SCH ×4 (01:03→20:51)
[2021-11-07] MEDS: heparin, porcine 5000 units/ml vial SQ SCH ×3 (01:04→16:50)
[2021-11-07 02:00] VITALS: BP 125/64
[2021-11-07] MEDS: ipratropium 0.5 MG/2.5ML nebule IH SCH ×4 (02:42→22:11)
--- NOTE | 2021-11-07 06:42 | NUR ---
Patient in room PCU 3021. I have received report from Stephany and had the opportunity to ask questions and assume patient care.
[2021-11-07 06:51] LABS: POTASSIUM 3.7 MMOL/L (3.5-5.1); PREALBUMIN 30.9 MG/DL (19-36)
[2021-11-07 07:00] VITALS: BP 126/57
[2021-11-07] MEDS: K and/or MAG REPLACEMENT MC SCH ×2 (08:00→20:00)
[2021-11-07] MEDS: budesonide 0.5mg/2ml UD nebule IH SCH ×2 (08:26→22:11)
[2021-11-07] MEDS: furosemide 40mg/4ml inj IV SCH ×2 (08:41→20:49)
[2021-11-07] MEDS: losartan 50mg tablet OGT SCH (08:41)
[2021-11-07] MEDS: famotidine/PF 10 mg/ml inj IV SCH (08:41)
[2021-11-07] MEDS: flecainide 50mg tablet OGT SCH ×2 (08:42→20:49)
[2021-11-07] MEDS: docusate sod 100mg capsule PO SCH ×2 (08:42→20:49)
[2021-11-07] MEDS: amLODIPine 5mg tablet PO SCH (08:42)
[2021-11-07] MEDS: prednisone 10mg tablet PO SCH (08:43)
[2021-11-07] MEDS: mineral oil/petrolatum, white cream 113gm jar TP SCH ×2 (08:43→20:49)
[2021-11-07] MEDS: lactobacillus rhamnosus 10,000 MMU CELLS/CAPSULE PO SCH ×2 (08:43→20:50)
[2021-11-07] MEDS: lactose-reduced food (Ensure Enlive) - 237ml bottle PO SCH ×3 (08:43→18:04)
[2021-11-07] MEDS: bisacodyl 10mg suppository rectal RC SCH (10:32)
[2021-11-07 11:00] VITALS: BP 122/59
[2021-11-07 12:53] LABS: BASOPHILS % (AUTO) 0.1 % (0-1); EOSINOPHILS # (AUTO) 0.1 X10'3 (0-0.9); EOSINOPHILS % (AUTO) 0.8 % (0-6); LYMPHOCYTES # (AUTO) 0.8 X10'3 (1.1-4.8); LYMPHOCYTES % (AUTO) 9.1 % (21-51); MEAN PLATELET VOLUME 9.2 FL (7.4-10.4); MONOCYTES # (AUTO) 0.6 X10'3 (0-0.9); MONOCYTES % (AUTO) 7.3 % (2-12); NEUTROPHILS # (AUTO) 7.2 X10'3 (1.8-7.7); NEUTROPHILS % (AUTO) 82.7 % (42-75); PLATELET COUNT 262 X10'3 (140-440); WHITE BLOOD COUNT 8.7 X10'3 (4.5-11.0)
[2021-11-07 12:54] LABS: ALBUMIN 3.2 G/DL (3.4-5.0); ANION GAP 8 (8-16); BLOOD UREA NITROGEN 55 MG/DL (7-18); BUN/CREATININE RATIO 30.9 (6.6-38.0); CALCIUM 9.1 MG/DL (8.5-10.1); CHLORIDE 96 MMOL/L (99-107); CREATININE 1.78 MG/DL (0.40-0.90); GLUCOSE 95 MG/DL (70-104); SODIUM 142 MMOL/L (135-145); TOTAL CARBON DIOXIDE 37.6 MMOL/L (24-32); eGFR 29 ML/MIN
[2021-11-07 12:55] LABS: POTASSIUM 4.4 MMOL/L (3.5-5.1)
[2021-11-07 13:29] LABS: HEMOGLOBIN 13.1 g/dl (12.0-16.0); MEAN CORPUSCULAR HEMOGLOBIN 25.3 PG (27.0-31.0); MEAN CORPUSCULAR HGB CONC 31.9 g/dL (33.0-36.5); MEAN CORPUSCULAR VOLUME 79.3 FL (78-98); RED BLOOD COUNT 5.18 X10'6 (4.20-5.60)
[2021-11-07 13:30] LABS: RED CELL DISTRIBUTION WIDTH 19.6 % (11.5-14.5)
[2021-11-07 15:00] VITALS: BP 115/60
[2021-11-07 16:57] LABS: ANISOCYTOSIS 3+; HYPERSEGMENTED NEUTROPHILS 1+; MICROCYTOSIS FEW; PLATELET ESTIMATE NORMAL; TOTAL CELLS COUNTED 100
[2021-11-07 16:58] LABS: STOMATOCYTES 3+
[2021-11-07 18:00] VITALS: BP 127/62
--- NOTE | 2021-11-07 18:39 | NUR ---
Problems reprioritized. Patient report given, questions answered & plan of care reviewed with Stephany.
[2021-11-07] MEDS: polyethylene glycol 3350 17gm powd pack PO SCH (20:49)
[2021-11-07 22:00] VITALS: BP 127/71
[2021-11-08] MEDS: heparin, porcine 5000 units/ml vial SQ SCH ×3 (00:34→16:13)
[2021-11-08 02:00] VITALS: BP 115/59
[2021-11-08] MEDS: ipratropium 0.5 MG/2.5ML nebule IH SCH ×4 (02:59→21:11)
[2021-11-08 06:00] VITALS: BP 112/98
--- NOTE | 2021-11-08 06:42 | NUR ---
patient refused to be weight this am
[2021-11-08] MEDS: K and/or MAG REPLACEMENT MC SCH ×2 (08:00→20:00)
[2021-11-08] MEDS: furosemide 40mg/4ml inj IV SCH ×2 (08:29→20:34)
[2021-11-08] MEDS: famotidine/PF 10 mg/ml inj IV SCH (08:29)
[2021-11-08] MEDS: mineral oil/petrolatum, white cream 113gm jar TP SCH ×2 (08:36→20:00)
[2021-11-08] MEDS: lactose-reduced food (Ensure Enlive) - 237ml bottle PO SCH ×2 (08:36→13:01)
[2021-11-08] MEDS: losartan 50mg tablet OGT SCH (08:37)
[2021-11-08] MEDS: flecainide 50mg tablet OGT SCH ×2 (08:38→20:34)
[2021-11-08] MEDS: docusate sod 100mg capsule PO SCH ×2 (08:38→20:34)
[2021-11-08] MEDS: lactobacillus rhamnosus 10,000 MMU CELLS/CAPSULE PO SCH ×2 (08:38→20:35)
[2021-11-08] MEDS: amLODIPine 5mg tablet PO SCH (08:38)
[2021-11-08] MEDS: prednisone 10mg tablet PO SCH (08:38)
[2021-11-08] MEDS: cloNIDine 0.1 mg tablet PO SCH ×3 (08:39→20:34)
[2021-11-08] MEDS: budesonide 0.5mg/2ml UD nebule IH SCH ×2 (09:04→21:10)
[2021-11-08 11:00] VITALS: BP 129/51
[2021-11-08 13:48] LABS: BASOPHILS % (AUTO) 0.3 % (0-1); EOSINOPHILS # (AUTO) 0.1 X10'3 (0-0.9); EOSINOPHILS % (AUTO) 0.9 % (0-6); LYMPHOCYTES # (AUTO) 0.9 X10'3 (1.1-4.8); LYMPHOCYTES % (AUTO) 10.2 % (21-51); MEAN PLATELET VOLUME 8.6 FL (7.4-10.4); MONOCYTES # (AUTO) 0.5 X10'3 (0-0.9); MONOCYTES % (AUTO) 5.6 % (2-12); NEUTROPHILS # (AUTO) 7.3 X10'3 (1.8-7.7); PLATELET COUNT 249 X10'3 (140-440); WHITE BLOOD COUNT 8.8 X10'3 (4.5-11.0)
[2021-11-08 14:15] LABS: HEMATOCRIT 40.8 % (35.0-45.0); HEMOGLOBIN 13.1 g/dl (12.0-16.0); MEAN CORPUSCULAR HEMOGLOBIN 25.6 PG (27.0-31.0); MEAN CORPUSCULAR VOLUME 79.9 FL (78-98); RED CELL DISTRIBUTION WIDTH 19.6 % (11.5-14.5)
[2021-11-08 14:19] LABS: ALBUMIN 3.2 G/DL (3.4-5.0); ANION GAP 5 (8-16); CHLORIDE 96 MMOL/L (99-107); CREATININE 2.19 MG/DL (0.40-0.90); GLUCOSE 194 MG/DL (70-104); POTASSIUM 4.1 MMOL/L (3.5-5.1); SODIUM 138 MMOL/L (135-145); TOTAL CARBON DIOXIDE 37.4 MMOL/L (24-32); eGFR 22 ML/MIN
[2021-11-08 14:21] LABS: BLOOD UREA NITROGEN 56 MG/DL (7-18); BUN/CREATININE RATIO 25.6 (6.6-38.0)
[2021-11-08 15:00] VITALS: BP 94/63
--- NOTE | 2021-11-08 18:49 | NUR ---
Problems reprioritized. Patient report given, questions answered & plan of care reviewed with Jackie.
[2021-11-08 19:00] VITALS: BP 102/61
[2021-11-08] MEDS: polyethylene glycol 3350 17gm powd pack PO SCH (21:00)
[2021-11-08 22:00] VITALS: BP 103/63
[2021-11-09 02:00] VITALS: BP 129/59
[2021-11-09] MEDS: ipratropium 0.5 MG/2.5ML nebule IH SCH ×4 (02:47→20:55)
[2021-11-09 06:00] VITALS: BP 114/71
[2021-11-09] MEDS: K and/or MAG REPLACEMENT MC SCH ×2 (08:00→20:00)
[2021-11-09] MEDS: budesonide 0.5mg/2ml UD nebule IH SCH ×2 (08:16→20:55)
[2021-11-09 08:40] LABS: BASOPHILS % (AUTO) 0.4 % (0-1); EOSINOPHILS # (AUTO) 0.1 X10'3 (0-0.9); EOSINOPHILS % (AUTO) 2.1 % (0-6); LYMPHOCYTES # (AUTO) 1.4 X10'3 (1.1-4.8); LYMPHOCYTES % (AUTO) 25.3 % (21-51); MEAN CORPUSCULAR HGB CONC 30.6 g/dL (33.0-36.5); MONOCYTES # (AUTO) 0.4 X10'3 (0-0.9); MONOCYTES % (AUTO) 7.5 % (2-12); NEUTROPHILS # (AUTO) 3.5 X10'3 (1.8-7.7); NEUTROPHILS % (AUTO) 64.7 % (42-75)
[2021-11-09] MEDS: heparin, porcine 5000 units/ml vial SQ SCH ×3 (08:54→17:23)
[2021-11-09] MEDS: famotidine/PF 10 mg/ml inj IV SCH (08:55)
[2021-11-09] MEDS: furosemide 40mg/4ml inj IV SCH ×2 (08:55→20:08)
[2021-11-09] MEDS: lactobacillus rhamnosus 10,000 MMU CELLS/CAPSULE PO SCH ×2 (08:56→20:08)
[2021-11-09] MEDS: losartan 50mg tablet OGT SCH (08:56)
[2021-11-09] MEDS: amLODIPine 5mg tablet PO SCH (08:56)
[2021-11-09 08:57] LABS: HEMOGLOBIN 13.4 g/dl (12.0-16.0); RED BLOOD COUNT 5.27 X10'6 (4.20-5.60)
[2021-11-09] MEDS: docusate sod 100mg capsule PO SCH ×2 (08:57→20:09)
[2021-11-09] MEDS: cloNIDine 0.1 mg tablet PO SCH ×3 (08:57→20:09)
[2021-11-09] MEDS: prednisone 10mg tablet PO SCH (08:57)
[2021-11-09] MEDS: flecainide 50mg tablet OGT SCH ×2 (08:57→20:09)
[2021-11-09 08:58] LABS: HEMATOCRIT 43.8 % (35.0-45.0); MEAN CORPUSCULAR HEMOGLOBIN 25.4 PG (27.0-31.0); MEAN PLATELET VOLUME 8.7 FL (7.4-10.4); PLATELET COUNT 225 X10'3 (140-440)
[2021-11-09 09:08] LABS: ALANINE AMINOTRANSFERASE 29 U/L (12-78); ALBUMIN 3.2 G/DL (3.4-5.0); ALKALINE PHOSPHATASE 103 IU/L (46-116); ANION GAP 7 (8-16); ASPARTATE AMINO TRANSFERASE 13 U/L (10-37); BILIRUBIN,TOTAL 0.5 MG/DL (0.1-1.0); BLOOD UREA NITROGEN 60 MG/DL (7-18); BUN/CREATININE RATIO 27.8 (6.6-38.0); CALCIUM 9.2 MG/DL (8.5-10.1); CHLORIDE 96 MMOL/L (99-107); CREATININE 2.16 MG/DL (0.40-0.90); GLUCOSE 123 MG/DL (70-104); POTASSIUM 3.8 MMOL/L (3.5-5.1); SODIUM 141 MMOL/L (135-145); TOTAL CARBON DIOXIDE 38.5 MMOL/L (24-32); TOTAL PROTEIN 6.3 G/DL (6.4-8.2); eGFR 23 ML/MIN
[2021-11-09 09:21] LABS: ANISOCYTOSIS 3+; ELLIPTOCYTES 1+; HYPOCHROMASIA 1+; PLATELET ESTIMATE NORMAL; STOMATOCYTES 2+; TEAR DROP CELLS 1+
[2021-11-09] MEDS: lactose-reduced food (Ensure Enlive) - 237ml bottle PO SCH ×3 (09:29→18:04)
[2021-11-09 11:00] VITALS: BP 117/64
[2021-11-09] MEDS: mineral oil/petrolatum, white cream 113gm jar TP SCH ×2 (11:47→20:10)
--- NOTE | 2021-11-09 13:20 | NUR ---
Elelr catheter discontinued per Dr. Neville verbal order. Pt has been educated on use of call hamm and to call when needing to use bedpan. Will continue to monitor.
[2021-11-09 14:00] LABS: MAGNESIUM 2.3 MG/DL (1.5-2.4)
[2021-11-09 15:00] VITALS: BP 94/62
--- NOTE | 2021-11-09 15:18 | NUR ---
Reassessment: PO intake appears to be slowly improving, previously with ~25% PO intake however up to 50% PO intake at three most recent meals. Pt seen at bedside states she agrees with all nutrition interventions implemented at this time though is unsure as to why she can't have other foods such as salads. RD d/w pt limitations r/t current diet order. Pt denies any issues chewing or swallowing and would like a texture upgrade. Recommend f/u BSS with ST for appropriate texture modification. D/w pt that ST not available over the weekend, pt verbalized understanding. Pt denied any food preferences at this time. RD encouraged PO intake of ONS to assist with meeting estimated nutrient needs, pt verbalized understanding and denies flavor preference at this time. RD contact information provided and pt encouraged to reach out if needed. LBM 11/08 per I&O. Will continue to follow closely. Recommendations: 1. Continue MM5 diet with thin liquids per ST recs; liberalize to regular diet pending f/u BSS with ST 2. Ensure Enlive TIDWM 3. Gelatin WB, chocolate pudding WL, cottage cheese WS; no fish 4. Encourage PO intake of meals and ONS 5. Monitor need for supplemental TF; IF TF, Vital AF at 60ml/hr goal to provide 1440 ml volume/day, 1728 kcal, 1166 ml water, and 108 g protein. 6. Routine bowel care 7. Weekly scaled weights Addendum: 11/09/21 at [address] Amended: Links added.
[2021-11-09 18:00] VITALS: BP 109/64
--- NOTE | 2021-11-09 18:34 | NUR ---
Problems reprioritized. Patient report given, questions answered & plan of care reviewed with JASON Gould.
[2021-11-09] MEDS: polyethylene glycol 3350 17gm powd pack PO SCH (20:08)
[2021-11-09] MEDS: acetaminophen 325mg tablet PO PRN (20:09)
[2021-11-09 22:00] VITALS: BP 110/50
[2021-11-10] MEDS: heparin, porcine 5000 units/ml vial SQ SCH ×2 (00:16→07:56)
[2021-11-10 02:00] VITALS: BP 137/57
[2021-11-10] MEDS: ipratropium 0.5 MG/2.5ML nebule IH SCH ×3 (02:51→13:26)
[2021-11-10 06:00] VITALS: BP 105/57
--- NOTE | 2021-11-10 06:26 | NUR ---
Problems reprioritized. Patient report given, questions answered & plan of care reviewed with Alysha GOMEZ .
[2021-11-10] MEDS: budesonide 0.5mg/2ml UD nebule IH SCH (07:37)
[2021-11-10] MEDS: losartan 50mg tablet OGT SCH (07:53)
[2021-11-10] MEDS: amLODIPine 5mg tablet PO SCH (07:53)
[2021-11-10] MEDS: bisacodyl 10mg suppository rectal RC SCH (07:54)
[2021-11-10] MEDS: cloNIDine 0.1 mg tablet PO SCH ×2 (07:54→12:17)
[2021-11-10] MEDS: prednisone 10mg tablet PO SCH (07:54)
[2021-11-10] MEDS: famotidine/PF 10 mg/ml inj IV SCH (07:54)
[2021-11-10] MEDS: flecainide 50mg tablet OGT SCH (07:55)
[2021-11-10] MEDS: lactobacillus rhamnosus 10,000 MMU CELLS/CAPSULE PO SCH (07:56)
[2021-11-10] MEDS: furosemide 40mg/4ml inj IV SCH (07:56)
[2021-11-10] MEDS: docusate sod 100mg capsule PO SCH (07:56)
[2021-11-10] MEDS: mineral oil/petrolatum, white cream 113gm jar TP SCH (07:56)
[2021-11-10] MEDS: K and/or MAG REPLACEMENT MC SCH (08:00)
[2021-11-10] MEDS: lactose-reduced food (Ensure Enlive) - 237ml bottle PO SCH ×2 (08:00→13:00)
--- NOTE | 2021-11-10 09:55 | NUR ---
No lab page to MD Message: Dr. Neville pt in room 3021 [facility] [place] did not have lab orders this morning. Not sure if they were needed. Thanks, Alysha [facility] [employer] Responses: promotional table spacer Transaction number: [id number]
[2021-11-10 11:00] VITALS: BP 111/62
[2021-11-10] MEDS ORDERED: magnesium 4gm in 100ml NS 100 ML IV PRN (11:20)
[2021-11-10] MEDS ORDERED: potassium Cl 20 mEq SR tablet PO PRN ×2 (11:20)
[2021-11-10] MEDS ORDERED: magnesium Cl slow-release 64mg tablet PO PRN (11:20)
[2021-11-10] MEDS ORDERED: potassium Cl 40MEQ/1/2NS 520ml 520 ML IV PRN (11:20)
[2021-11-10] MEDS ORDERED: CLON0.2T PO (11:33)
[2021-11-10] MEDS ORDERED: LACT1CAP26 PO (11:33)
[2021-11-10] MEDS ORDERED: PRED10TA23 PO (11:33)
--- NOTE | 2021-11-10 15:14 | NUR ---
Pt. received discharge instructions with no further questions; Pt. IV removed with catheter intact; tele box cleaned and returned; Per Dr. Neville patient ready for discharge. Alysha Click PCU
[2021-11-10] MEDS ORDERED: K and/or MAG REPLACEMENT MC SCH (20:00)
== END 2021-11-10 15:14 | disposition home or self-care (01) | DRG 720 ==
LOC: ER 11:54 → ED HOLD 10-22 02:19 → EDBEDREQ 10-22 02:46 → EDBEDREQTM 10-22 02:46 → ICU 2S 10-22 04:57 → PCU 3S 11-01 16:40
PROVIDERS: ADMIT Internal Medicine; ATTEND Internal Medicine
PROC: 0BH17EZ Insertion of Endotracheal Airway into Trachea, Via Natural or Artificial Opening (ICD-10-PCS; principal; 2021-10-22)
PROC: 5A1955Z Respiratory Ventilation, Greater than 96 Consecutive Hours (ICD-10-PCS; 2021-10-22)
DX: A41.9 Sepsis, unspecified organism (principal); J18.9 Pneumonia, unspecified organism; I50.33 Acute on chronic diastolic (congestive) heart failure; E87.2 Acidosis; J43.8 Other emphysema; J96.01 Acute respiratory failure with hypoxia; J96.02 Acute respiratory failure with hypercapnia; E87.0 Hyperosmolality and hypernatremia; N17.9 Acute kidney failure, unspecified; I13.0 Hypertensive heart and chronic kidney disease with heart failure and stage 1 through stage 4 chronic kidney disease, or unspecified chronic kidney disease; Z20.822 Contact with and (suspected) exposure to COVID-19; E11.22 Type 2 diabetes mellitus with diabetic chronic kidney disease; J45.901 Unspecified asthma with (acute) exacerbation; R65.20 Severe sepsis without septic shock; F20.9 Schizophrenia, unspecified; L03.115 Cellulitis of right lower limb; L03.116 Cellulitis of left lower limb; N39.0 Urinary tract infection, site not specified; E87.5 Hyperkalemia; I87.2 Venous insufficiency (chronic) (peripheral); N18.30 Chronic kidney disease, stage 3 unspecified; Y95 Nosocomial condition; Z79.899 Other long term (current) drug therapy; Z88.8 Allergy status to other drugs, medicaments and biological substances; Z86.73 Personal history of transient ischemic attack (TIA), and cerebral infarction without residual deficits; Z87.01 Personal history of pneumonia (recurrent); Z86.711 Personal history of pulmonary embolism; Z79.51 Long term (current) use of inhaled steroids; Z87.440 Personal history of urinary (tract) infections
CPT/HCPCS: 36410; 36415; 36600; 70450; 71045; 73590; 74018; 76937; 80048; 80053; 80202; 81001; 82803; 82948; 83605; 83735; 84100; 84132; 84134; 84145; 84478; 84484; 85007; 85008; 85018; 85025; 87040; 87070; 87077; 87081; 87088; 87186; 87635; 92508; 92616; 93005; 94002; 94003; 94640; 94760; 94799; 96365; 96375; 97110; 97116; 97161; 97530; 97535; 99291; C1751; C9803; G0378; J0360; J0692; J0696; J1644; J1815; J1940; J2020; J2270; J2310; J2405; J2704; J2920; J2930; J3010; J3370; J3490; J7030; J7042; J7512; J7614; P9045

== ENCOUNTER 2022-01-03 12:59 | Inpatient (IN) | payer MEDICAID ==
[~2022-01-03] VITALS: Ht 165.1 cm; Wt 95.6 kg
[2022-01-03] VITALS (9 sets, daily range): BP systolic 144–197; BP diastolic 80–115
[~2022-01-03 12:59] MED LIST changes: -CARV3.12 PO; +CLON0.2T PO; -DILT-88 PO; +LACT1CAP26 PO; +etomidate 2mg/ml inj. ONE; +rocuronium 10mg/ml inj IV ONE
[2022-01-03 13:43] LABS: LYMPHOCYTES # (AUTO) 1.2 X10'3 (1.1-4.8); MONOCYTES # (AUTO) 0.8 X10'3 (0-0.9); WHITE BLOOD COUNT 8.2 X10'3 (4.5-11.0)
[2022-01-03 13:45] LABS: BASOPHILS % (AUTO) 0.6 % (0-1); EOSINOPHILS % (AUTO) 0.3 % (0-6); LYMPHOCYTES % (AUTO) 14.5 % (21-51); MEAN PLATELET VOLUME 8.4 FL (7.4-10.4); MONOCYTES % (AUTO) 9.6 % (2-12); NEUTROPHILS # (AUTO) 6.2 X10'3 (1.8-7.7); PLATELET COUNT 394 X10'3 (140-440)
[2022-01-03 13:54] LABS: HEMOGLOBIN 10.9 g/dl (12.0-16.0); RED BLOOD COUNT 4.15 X10'6 (4.20-5.60)
[2022-01-03 13:55] LABS: HEMATOCRIT 34.8 % (35.0-45.0); MEAN CORPUSCULAR HEMOGLOBIN 26.2 PG (27.0-31.0); MEAN CORPUSCULAR HGB CONC 31.3 g/dL (33.0-36.5); MEAN CORPUSCULAR VOLUME 83.9 FL (78-98); RED CELL DISTRIBUTION WIDTH 18.8 % (11.5-14.5)
[2022-01-03] MEDS ORDERED: ipratropium/albuterol 3ml nebule NEB ONE (13:55)
[2022-01-03 13:58] LABS: ALANINE AMINOTRANSFERASE 35 U/L (12-78); ALBUMIN 2.8 G/DL (3.4-5.0); ALBUMIN/GLOBULIN RATIO 0.6 (1.1-1.5); ALKALINE PHOSPHATASE 228 IU/L (46-116); ANION GAP 8 (8-16); ASPARTATE AMINO TRANSFERASE 26 U/L (10-37); BILIRUBIN,TOTAL 0.2 MG/DL (0.1-1.0); BLOOD UREA NITROGEN 25 MG/DL (7-18); BUN/CREATININE RATIO 13.5 (6.6-38.0); CALCIUM 8.3 MG/DL (8.5-10.1); CHLORIDE 109 MMOL/L (99-107); CREATININE 1.85 MG/DL (0.40-0.90); GLUCOSE 168 MG/DL (70-104); POTASSIUM 4.2 MMOL/L (3.5-5.1); SODIUM 148 MMOL/L (135-145); TOTAL CARBON DIOXIDE 30.8 MMOL/L (24-32); TOTAL PROTEIN 7.6 G/DL (6.4-8.2); eGFR 27 ML/MIN
[2022-01-03] MEDS ORDERED: azithromycin/NS 500mg/250ml 250 ML IV ONE (14:05)
[2022-01-03] MEDS ORDERED: CefTRIAXone 2gm/NS 100ml IVPB 100 ML IV ONE (14:05)
[2022-01-03] MEDS ORDERED: normal saline 1000ML IV soln IVB ONE (14:05)
[2022-01-03 14:15] LABS: ABG BASE EXCESS -2.9 mmol/L (-2.0-2.0); ABG HCO3 29.7 mmol/L (22.0-26.0); ABG OXYGEN SATURATION 81.2 % (94-97); ABG PCO2 (T) 105.9 mmHg (32.0-45.0); ABG PO2 (T) 55.3 mmHg (75.0-100.0); ALLEN'S TEST POSITIVE; FCOHb 3.1 % (0.0-3.9); FLOW 5 L/min; FMetHb 0.2 % (0.0-1.5); FO2Hb 78.5 % (94-97); TOTAL HEMOGLOBIN 12.3 G/dl (12.0-16.0)
[2022-01-03 14:21] LABS: ANISOCYTOSIS 2+; NUCLEATED RED BLOOD CELLS 3 /100WBC (0-0); PLATELET ESTIMATE NORMAL; POLYCHROMASIA 1+; TOTAL CELLS COUNTED 100
--- NOTE | 2022-01-03 14:31 | NUR ---
[facility] care provider cell [phone] cashiers [phone]
[2022-01-03] MEDS ORDERED: furosemide 10 MG/1 ML 10ml inj IV ONE (14:50)
[2022-01-03] MEDS ORDERED: LIDOcaine 2% 10ml TOPICAL JELLY (Urojet) TP ONE ×2 (14:50→16:40)
[2022-01-03 15:04] LABS: CLARITY,URINE CLOUDY (Clear); COLOR,URINE YELLOW (Yellow); GLUCOSE, URINE NEGATIVE (Neg); KETONES,URINE NEGATIVE (Neg); LEUKOCYTE ESTERASE ,URINE NEGATIVE (Neg); NITRITES, URINE NEGATIVE (Neg); OCCULT BLOOD,URINE NEGATIVE (Neg); PROTEIN,URINE 100 mg/dl (Neg); UROBILINOGEN,URINE 0.2 E.U/dL (0.2-1.0)
[2022-01-03 15:06] LABS: UA COLLECTION TYPE FOLEY CATH
[2022-01-03 15:14] LABS: BACTERIA,URINE 1+ /HPF (Neg); RBC,URINE 0-2 /HPF (0-2)
[2022-01-03 15:15] LABS: MUCUS STRANDS MANY /LPF (Neg); RENAL CELLS, URINE FEW /HPF; SQUAMOUS EPITHELIAL CELL,UR NONE SEEN /LPF (FEW)
[2022-01-03 15:19] LABS: URINE AMPHETAMINE SCREEN NEGATIVE (Neg); URINE BARBITUATE SCREEN NEGATIVE (Neg); URINE BENZODIAZEPINES SCREEN NEGATIVE (Neg); URINE CANNABINOID SCREEN NEGATIVE (Neg); URINE COCAINE SCREEN NEGATIVE (Neg); URINE METHADONE SCREEN NEGATIVE (Neg); URINE OPIATE SCREEN NEGATIVE (Neg); URINE PHENCYCLIDINE SCREEN NEGATIVE (Neg)
[2022-01-03 16:09] LABS: ABG BASE EXCESS -3.7 mmol/L (-2.0-2.0); ABG HCO3 30.1 mmol/L (22.0-26.0); ABG OXYGEN SATURATION 88.1 % (94-97); ABG PCO2 (T) 120.1 mmHg (32.0-45.0); ABG PO2 (T) 70.2 mmHg (75.0-100.0); ALLEN'S TEST POSITIVE; FCOHb 3.1 % (0.0-3.9); FMetHb 0.2 % (0.0-1.5); FO2Hb 85.2 % (94-97); PATIENT TEMPERATURE 37.2; RESPIRATORY RATE 18 b/min; TOTAL HEMOGLOBIN 12.5 G/dl (12.0-16.0)
[2022-01-03] MEDS ORDERED: succinylcholine 20mg/ml inj IV ONE (16:15)
[2022-01-03] MEDS ORDERED: rocuronium 10mg/ml inj IV ONE (16:15)
[2022-01-03] MEDS ORDERED: etomidate 2mg/ml inj. IV ONE ×2 (16:15)
[2022-01-03] MEDS ORDERED: fentaNYL/PF 50MCG/1 ML 2ML syringe IV PRN (16:15)
[2022-01-03] MEDS ORDERED: morphine 2 MG/ML inj. syringe IV PRN (16:40)
[2022-01-03] MEDS ORDERED: morphine 4 MG/ML inj SYRINge IV PRN (16:40)
[2022-01-03] MEDS ORDERED: potassium Cl 20 mEq SR tablet PO PRN ×2 (16:40)
[2022-01-03] MEDS ORDERED: acetaminophen 325mg tablet PO PRN ×2 (16:40)
[2022-01-03] MEDS ORDERED: ondansetron/PF 4mg/2ml inj IV PRN (16:40)
[2022-01-03] MEDS ORDERED: magnesium hydroxide 30ml (MOM) UD suspension PO PRN (16:40)
[2022-01-03 16:55] LABS: ABG BASE EXCESS -0.9 mmol/L (-2.0-2.0); ABG HCO3 27.6 mmol/L (22.0-26.0); ABG OXYGEN SATURATION 89.9 % (94-97); ABG PCO2 (T) 65.1 mmHg (32.0-45.0); ABG PO2 (T) 59.1 mmHg (75.0-100.0); ALLEN'S TEST POSITIVE; FCOHb 2.7 % (0.0-3.9); FMetHb 0.1 % (0.0-1.5); FO2Hb 87.4 % (94-97); PATIENT TEMPERATURE 37.1; PEEP 5 cm H2O; RESPIRATORY RATE 20 b/min; TIDAL VOLUME 450 mL; TOTAL HEMOGLOBIN 12.6 G/dl (12.0-16.0)
[2022-01-03] MEDS: midazolam 100mg in NS 100ml 100 ML IV PRN (17:05)
[2022-01-03] MEDS ORDERED: LINE600T14 PO (17:09)
[2022-01-03] MEDS ORDERED: CARCD120C PO (17:09)
[2022-01-03] MEDS: FENTANYL-0.9 % NACL/PF 100 ML IV PRN ×2 (17:27→23:59)
--- NOTE | 2022-01-03 19:00 | NUR ---
pt intubated and sedated. Restraints to help protect airway Addendum: 01/03/22 at 2342 by Anthony Portillo RN Amended: Links added.
[2022-01-03] MEDS: ipratropium/albuterol 3ml nebule NEB SCH ×2 (19:05→23:48)
--- NOTE | 2022-01-03 19:26 | NUR ---
Dr. Duong read the post intubation and post central line CXR And he stated that the placement of the central line is good and it was ok to use.
[2022-01-03] MEDS: methylPREDNISolone sod succ 125mg/2ml vial IV SCH (21:03)
[2022-01-03 22:31] LABS: ABG OXYGEN SATURATION 92.7 % (94-97); ABG PCO2 (T) 38.5 mmHg (32.0-45.0); ABG PO2 (T) 54.1 mmHg (75.0-100.0); ALLEN'S TEST Modified; FCOHb 0.4 % (0.0-3.9); FMetHb 0.1 % (0.0-1.5); FO2Hb 92.2 % (94-97); PATIENT TEMPERATURE 35.9; PEEP 8 cm H2O; RESPIRATORY RATE 25 b/min; TIDAL VOLUME 400 mL; TOTAL HEMOGLOBIN 12.1 G/dl (12.0-16.0)
[2022-01-03] MEDS: metoprolol tartrate 50mg tablet PO SCH (23:12)
[2022-01-04] VITALS (35 sets, daily range): BP systolic 116–180; BP diastolic 55–86
[2022-01-04] MEDS ORDERED: hydrALAZINE 20mg/ml inj. IV ONE (00:35)
--- NOTE | 2022-01-04 00:36 | NUR ---
Pt.'s blood pressure systolic still in the 190's pt had received 50mg metoprolol po an hour prior and was ineffective. Dr Del Rio notified. She gave a one time order of hydralazine and she also said that she didn't want to drop her pressure too rapidly and said to notify her if the patient's SBP is over 200.
[2022-01-04] MEDS: ipratropium/albuterol 3ml nebule NEB SCH ×5 (03:24→23:23)
[2022-01-04 03:43] LABS: ABG BASE EXCESS 5.1 mmol/L (-2.0-2.0); ABG HCO3 28.9 mmol/L (22.0-26.0); ABG OXYGEN SATURATION 94.7 % (94-97); ABG PCO2 (T) 37.9 mmHg (32.0-45.0); ABG PO2 (T) 64.4 mmHg (75.0-100.0); ALLEN'S TEST Modified; FCOHb 0.3 % (0.0-3.9); FMetHb 0.2 % (0.0-1.5); FO2Hb 94.2 % (94-97); PATIENT TEMPERATURE 36.2; PEEP 8 cm H2O; RESPIRATORY RATE 25 b/min; TIDAL VOLUME 400 mL; TOTAL HEMOGLOBIN 12.1 G/dl (12.0-16.0)
[2022-01-04 03:54] LABS: BASOPHILS % (AUTO) 0.1 % (0-1); EOSINOPHILS % (AUTO) 0.1 % (0-6); HEMATOCRIT 35.4 % (35.0-45.0); HEMOGLOBIN 11.2 g/dl (12.0-16.0); LYMPHOCYTES # (AUTO) 0.3 X10'3 (1.1-4.8); LYMPHOCYTES % (AUTO) 3.9 % (21-51); MEAN CORPUSCULAR HEMOGLOBIN 26.1 PG (27.0-31.0); MEAN CORPUSCULAR HGB CONC 31.7 g/dL (33.0-36.5); MEAN CORPUSCULAR VOLUME 82.2 FL (78-98); MEAN PLATELET VOLUME 8.7 FL (7.4-10.4); MONOCYTES # (AUTO) 0.2 X10'3 (0-0.9); MONOCYTES % (AUTO) 2.1 % (2-12); NEUTROPHILS # (AUTO) 8.1 X10'3 (1.8-7.7); NEUTROPHILS % (AUTO) 93.8 % (42-75); PLATELET COUNT 355 X10'3 (140-440); RED BLOOD COUNT 4.31 X10'6 (4.20-5.60); RED CELL DISTRIBUTION WIDTH 18.8 % (11.5-14.5); WHITE BLOOD COUNT 8.6 X10'3 (4.5-11.0)
[2022-01-04 04:04] LABS: ALANINE AMINOTRANSFERASE 31 U/L (12-78); ALBUMIN 2.5 G/DL (3.4-5.0); ALBUMIN/GLOBULIN RATIO 0.6 (1.1-1.5); ALKALINE PHOSPHATASE 207 IU/L (46-116); ANION GAP 8 (8-16); ASPARTATE AMINO TRANSFERASE 23 U/L (10-37); BILIRUBIN,TOTAL 0.4 MG/DL (0.1-1.0); BLOOD UREA NITROGEN 28 MG/DL (7-18); BUN/CREATININE RATIO 17.1 (6.6-38.0); CALCIUM 8.5 MG/DL (8.5-10.1); CHLORIDE 111 MMOL/L (99-107); CREATININE 1.64 MG/DL (0.40-0.90); GLUCOSE 122 MG/DL (70-104); MAGNESIUM 2.3 MG/DL (1.5-2.4); POTASSIUM 3.8 MMOL/L (3.5-5.1); SODIUM 148 MMOL/L (135-145); TOTAL CARBON DIOXIDE 29.2 MMOL/L (24-32); TOTAL PROTEIN 6.9 G/DL (6.4-8.2); eGFR 31 ML/MIN
[2022-01-04] MEDS ORDERED: furosemide 40mg/4ml inj IV ONE ×2 (04:50→16:10)
[2022-01-04] MEDS: methylPREDNISolone sod succ 125mg/2ml vial IV SCH ×4 (04:54→19:21)
[2022-01-04] MEDS: FENTANYL-0.9 % NACL/PF 100 ML IV PRN ×3 (06:26→19:32)
[2022-01-04] MEDS: midazolam 100mg in NS 100ml 100 ML IV PRN ×3 (06:27→14:00)
--- NOTE | 2022-01-04 06:30 | NUR ---
Patient in room ICU 2038. I have received report from Yves GOMEZ and had the opportunity to ask questions and assume patient care.
[2022-01-04] MEDS: K and/or MAG REPLACEMENT MC SCH (07:58)
[2022-01-04] MEDS ORDERED: nicotine 14mg patch - 24hr TD SCH (08:00)
[2022-01-04] MEDS: metoprolol tartrate 50mg tablet PO SCH (08:10)
[2022-01-04] MEDS: nicotine 14mg patch - 24hr TD SCH (08:57)
[2022-01-04 09:02] LABS: PHOSPHORUS 2.1 MG/DL (2.3-4.5)
--- NOTE | 2022-01-04 09:17 | NUR ---
Initial: Pt admit for respiratory failure and CHF exacerbation. Tunde 9, pt with chronic BLE wounds. Per ED report pt has developed some worsening cellulitis process and had evidence of not caring for herself with maggots noted to be in the wound beds which was debrided. Wound care has been consulted, pending assessment at this time. Pt currently intubated, documented with an OGT in place though no TF consult at this time. Will place TF recommendations below in anticipation to begin nutrition support if expected prolonged intubation. Will continue to follow closely. Recommendations: 1) IF TF, continuous Vital HP via OGT with 65 mL/hr goal rate. Begin at 25 mL/hr and advance by 20 mL Q8H as tolerated to goal rate to provide 1560 mL total volume/day, 1560 kcal, 137 g protein, and 1304 mL water 2) IF TF, additional 125 mL water flush Q4H if physician agreeable; pt admit with CHF exacerbation though pt hypernatremic at this time; monitor serum Na 3) IF TF, prealbumin q Thursday/; daily scaled weights 4) Routine bowel care 5) With diet advancement following extubation consider: gelatin, chocolate pudding, and cottage cheese per patient's preferences at previous admits; BSS with ST prior to PO diet advancement; recommend regular diet given historically poor PO intake during admits Addendum: 01/04/22 at [address] Amended: Links added.
--- NOTE | 2022-01-04 11:19 | NUR ---
TF consult: See recommendations below. Recommendations: 1) Continuous Vital HP via OGT with 65 mL/hr goal rate to provide 1560 mL total volume/day, 1560 kcal, 137 g protein, and 1304 mL water 2) Additional 125 mL water flush Q4H; pt admit with CHF exacerbation though pt hypernatremic at this time; monitor serum Na 3) Prealbumin q Thursday/; daily scaled weights 4) Routine bowel care 5) With diet advancement following extubation consider: gelatin, chocolate pudding, and cottage cheese per patient's preferences at previous admits; BSS with ST prior to PO diet advancement; recommend regular diet given historically poor PO intake during admits Addendum: 01/04/22 at [address] Amended: Links added.
[2022-01-04] MEDS ORDERED: ASPI81TA52 PO (11:40)
[2022-01-04] MEDS: Dakins solution (1/4 strength) 473ml solution TP SCH (11:51)
[2022-01-04] MEDS ORDERED: acetaminophen 325mg tablet OGT PRN (12:47)
[2022-01-04] MEDS ORDERED: magnesium hydroxide 30ml (MOM) UD suspension OGT PRN (12:47)
[2022-01-04] MEDS ORDERED: potassium Cl 20 mEq SR tablet OGT PRN ×2 (12:48)
[2022-01-04] MEDS ORDERED: midazolam 100mg in NS 100ml 100 ML IV PRN (14:32)
[2022-01-04] MEDS: pantoprazole 40MG/NS 100ML BAG 100 ML IV SCH (15:14)
[2022-01-04] MEDS: clindamycin 600mg/D5W 50ml 50 ML IV SCH ×2 (15:24→19:20)
--- NOTE | 2022-01-04 17:23 | NUR ---
Remains sedated on Fentanyl & Versed gtts. Hemodynamically stable. Able to wean FiO2 down to 50%. With stimulation sats decrease to 80's. Urine decreased to 10-15ml/hr. Lasix given with good results. Tube feeds started. Dressing change to lower extremity cellulits with Dakins solution and wet to moist gauze. Photos taken.
--- NOTE | 2022-01-04 18:13 | NUR ---
Problems reprioritized. Patient report given, questions answered & plan of care reviewed with Yves GOMEZ.
[2022-01-04] MEDS: heparin, porcine 5000 units/ml vial SQ SCH (19:25)
[2022-01-04] MEDS: metoprolol tartrate 50mg tablet OGT SCH (19:28)
[2022-01-05] VITALS (36 sets, daily range): BP systolic 98–167; BP diastolic 47–83
[2022-01-05] MEDS: nystatin 15 GM powder TP SCH ×4 (00:36→21:24)
--- NOTE | 2022-01-05 01:15 | NUR ---
PT o2 saturations decreased to 88%. Pt was ETT suctioned and the RT tried a lavage because the Secretions were thicker. pt sounded Wheezy in the upper airways and received a nebulizer treatment. Pt Fio2 increased to 55%.
[2022-01-05] MEDS: clindamycin 600mg/D5W 50ml 50 ML IV SCH ×4 (02:09→20:26)
[2022-01-05] MEDS: methylPREDNISolone sod succ 125mg/2ml vial IV SCH ×4 (02:09→20:22)
[2022-01-05 02:28] LABS: BASOPHILS % (AUTO) 0.1 % (0-1); EOSINOPHILS % (AUTO) 0 % (0-6); HEMOGLOBIN 10.3 g/dl (12.0-16.0); LYMPHOCYTES # (AUTO) 0.2 X10'3 (1.1-4.8); MEAN CORPUSCULAR HEMOGLOBIN 25.2 PG (27.0-31.0); MEAN CORPUSCULAR HGB CONC 31.2 g/dL (33.0-36.5); MEAN CORPUSCULAR VOLUME 80.8 FL (78-98); MEAN PLATELET VOLUME 8.5 FL (7.4-10.4); MONOCYTES # (AUTO) 0.1 X10'3 (0-0.9); MONOCYTES % (AUTO) 1.9 % (2-12); NEUTROPHILS # (AUTO) 6.7 X10'3 (1.8-7.7); PLATELET COUNT 341 X10'3 (140-440); RED BLOOD COUNT 4.08 X10'6 (4.20-5.60); RED CELL DISTRIBUTION WIDTH 18.7 % (11.5-14.5)
[2022-01-05 02:48] LABS: ALANINE AMINOTRANSFERASE 21 U/L (12-78); ALBUMIN 2.1 G/DL (3.4-5.0); ALBUMIN/GLOBULIN RATIO 0.5 (1.1-1.5); ALKALINE PHOSPHATASE 156 IU/L (46-116); ANION GAP 9 (8-16); ASPARTATE AMINO TRANSFERASE 11 U/L (10-37); BILIRUBIN,TOTAL 0.2 MG/DL (0.1-1.0); BLOOD UREA NITROGEN 39 MG/DL (7-18); BUN/CREATININE RATIO 22.4 (6.6-38.0); CALCIUM 8.1 MG/DL (8.5-10.1); CHLORIDE 106 MMOL/L (99-107); CREATININE 1.74 MG/DL (0.40-0.90); GLUCOSE 169 MG/DL (70-104); MAGNESIUM 2.2 MG/DL (1.5-2.4); POTASSIUM 3.2 MMOL/L (3.5-5.1); SODIUM 145 MMOL/L (135-145); TOTAL CARBON DIOXIDE 29.6 MMOL/L (24-32); TOTAL PROTEIN 6.3 G/DL (6.4-8.2); eGFR 29 ML/MIN
[2022-01-05] MEDS: ipratropium/albuterol 3ml nebule NEB SCH ×6 (02:53→23:24)
[2022-01-05 03:15] LABS: ABG BASE EXCESS 2.1 mmol/L (-2.0-2.0); ABG HCO3 25.9 mmol/L (22.0-26.0); ABG OXYGEN SATURATION 92.4 % (94-97); ABG PCO2 (T) 36.8 mmHg (32.0-45.0); ABG PO2 (T) 63.1 mmHg (75.0-100.0); ALLEN'S TEST POSITIVE; FCOHb 0.2 % (0.0-3.9); FMetHb 0.1 % (0.0-1.5); FO2Hb 92.1 % (94-97); PATIENT TEMPERATURE 36.5; PEEP 6 cm H2O; RESPIRATORY RATE 22 b/min; TIDAL VOLUME 400 mL; TOTAL HEMOGLOBIN 11.3 G/dl (12.0-16.0)
--- NOTE | 2022-01-05 04:40 | NUR ---
Rounded with Dr. Palacios via [employer]. Pt blood pressure on the lower side systolic in the low 100's, Pt's urinary output decreased to blow 30 ml an hour. he wanted to hold metoprolol and have morning pull worker reevaluate.
[2022-01-05] MEDS ORDERED: magnesium 4gm in 100ml NS 100 ML IV PRN ×2 (04:55→06:05)
[2022-01-05] MEDS ORDERED: magnesium 2GM in 50ml NS 50 ML IV PRN ×2 (04:55→06:05)
[2022-01-05] MEDS ORDERED: potassium CL 10mEq/100ml bag 100 ML IV PRN ×2 (04:55→06:05)
[2022-01-05] MEDS ORDERED: potassium Cl 20mEq/100mL bag 100 ML IV PRN (04:55)
[2022-01-05 05:05] LABS: ANISOCYTOSIS 2+; PLATELET ESTIMATE NORMAL; TOTAL CELLS COUNTED 100
[2022-01-05 05:06] LABS: POLYCHROMASIA FEW
--- NOTE | 2022-01-05 06:00 | NUR ---
Patient in room ICU 2038. I have received report from Yves GOMEZ and had the opportunity to ask questions and assume patient care.
[2022-01-05] MEDS: K and/or MAG REPLACEMENT MC SCH (08:00)
[2022-01-05] MEDS: pantoprazole 40MG/NS 100ML BAG 100 ML IV SCH (08:37)
[2022-01-05] MEDS: metoprolol tartrate 50mg tablet OGT SCH ×2 (08:38→20:26)
[2022-01-05] MEDS: heparin, porcine 5000 units/ml vial SQ SCH ×2 (08:39→20:22)
[2022-01-05] MEDS: nicotine 14mg patch - 24hr TD SCH (08:39)
[2022-01-05] MEDS: Dakins solution (1/4 strength) 473ml solution TP SCH ×2 (08:39→15:58)
[2022-01-05] MEDS: potassium Cl 20mEq/100mL bag 100 ML IV PRN ×3 (09:19→16:31)
[2022-01-05] MEDS: FENTANYL-0.9 % NACL/PF 100 ML IV PRN ×2 (09:20→22:55)
[2022-01-05] MEDS ORDERED: normal saline 1000ml 1,000 ML IV ONE (11:05)
--- NOTE | 2022-01-05 11:08 | NUR ---
Dr. [place] informed of low urine output of less than 5/hr for the last 2 hrs. ordered 1L NS bolus over 2hrs.
[2022-01-05] MEDS ORDERED: albuterol 1.25 MG/3 ML (1/2 strength) nebule NEB PRN (11:30)
[2022-01-05] MEDS ORDERED: ipratropium 0.5 MG/2.5ML nebule IH SCH (14:00)
--- NOTE | 2022-01-05 18:26 | NUR ---
Problems reprioritized. Patient report given, questions answered & plan of care reviewed with Mateo GOMEZ.
[2022-01-05] MEDS: budesonide 0.5mg/2ml UD nebule IH SCH ×2 (18:54→21:00)
[2022-01-05] MEDS ORDERED: flecainide 50mg tablet PO SCH (20:00)
[2022-01-05] MEDS ORDERED: docusate sod 100mg capsule PO SCH (20:00)
[2022-01-05] MEDS ORDERED: losartan 50mg tablet PO SCH (20:00)
[2022-01-06] VITALS (34 sets, daily range): BP systolic 137–183; BP diastolic 66–98
[2022-01-06] MEDS: clindamycin 600mg/D5W 50ml 50 ML IV SCH (02:15)
[2022-01-06] MEDS: methylPREDNISolone sod succ 125mg/2ml vial IV SCH ×4 (02:15→20:35)
[2022-01-06 03:14] LABS: BASOPHILS % (AUTO) 0.1 % (0-1); EOSINOPHILS % (AUTO) 0 % (0-6); HEMATOCRIT 34.4 % (35.0-45.0); HEMOGLOBIN 10.5 g/dl (12.0-16.0); LYMPHOCYTES # (AUTO) 0.2 X10'3 (1.1-4.8); LYMPHOCYTES % (AUTO) 1.8 % (21-51); MEAN CORPUSCULAR HEMOGLOBIN 24.6 PG (27.0-31.0); MEAN CORPUSCULAR HGB CONC 30.5 g/dL (33.0-36.5); MEAN CORPUSCULAR VOLUME 80.8 FL (78-98); MEAN PLATELET VOLUME 8.7 FL (7.4-10.4); MONOCYTES # (AUTO) 0.4 X10'3 (0-0.9); MONOCYTES % (AUTO) 3.6 % (2-12); NEUTROPHILS # (AUTO) 10.5 X10'3 (1.8-7.7); NEUTROPHILS % (AUTO) 94.5 % (42-75); PLATELET COUNT 318 X10'3 (140-440); RED BLOOD COUNT 4.25 X10'6 (4.20-5.60); RED CELL DISTRIBUTION WIDTH 19.5 % (11.5-14.5); WHITE BLOOD COUNT 11.1 X10'3 (4.5-11.0)
[2022-01-06 03:42] LABS: ALANINE AMINOTRANSFERASE 20 U/L (12-78); ALBUMIN 2.3 G/DL (3.4-5.0); ALBUMIN/GLOBULIN RATIO 0.6 (1.1-1.5); ALKALINE PHOSPHATASE 147 IU/L (46-116); ANION GAP 7 (8-16); ASPARTATE AMINO TRANSFERASE 12 U/L (10-37); BILIRUBIN,TOTAL 0.2 MG/DL (0.1-1.0); BLOOD UREA NITROGEN 58 MG/DL (7-18); BUN/CREATININE RATIO 38.9 (6.6-38.0); CALCIUM 7.8 MG/DL (8.5-10.1); CHLORIDE 109 MMOL/L (99-107); CREATININE 1.49 MG/DL (0.40-0.90); GLUCOSE 145 MG/DL (70-104); MAGNESIUM 2.3 MG/DL (1.5-2.4); POTASSIUM 3.9 MMOL/L (3.5-5.1); PREALBUMIN 20.3 MG/DL (19-36); SODIUM 144 MMOL/L (135-145); TOTAL CARBON DIOXIDE 27.6 MMOL/L (24-32); TOTAL PROTEIN 6.2 G/DL (6.4-8.2); eGFR 35 ML/MIN
[2022-01-06 04:01] LABS: ABG BASE EXCESS 1.3 mmol/L (-2.0-2.0); ABG HCO3 25.5 mmol/L (22.0-26.0); ABG OXYGEN SATURATION 95.2 % (94-97); ABG PCO2 (T) 38.2 mmHg (32.0-45.0); ALLEN'S TEST POSITIVE; FCOHb 0.3 % (0.0-3.9); FMetHb 0.2 % (0.0-1.5); FO2Hb 94.7 % (94-97); PATIENT TEMPERATURE 36.5; PEEP 5 cm H2O; RESPIRATORY RATE 22 b/min; TIDAL VOLUME 400 mL
[2022-01-06] MEDS: ipratropium/albuterol 3ml nebule NEB SCH ×6 (04:07→23:26)
[2022-01-06 05:17] LABS: ANISOCYTOSIS 2+; ELLIPTOCYTES FEW; PLATELET ESTIMATE NORMAL; POLYCHROMASIA FEW; TOTAL CELLS COUNTED 100
--- NOTE | 2022-01-06 06:00 | NUR ---
Patient in room ICU 2038. I have received report from Mateo GOMEZ and had the opportunity to ask questions and assume patient care.
[2022-01-06] MEDS: budesonide 0.5mg/2ml UD nebule IH SCH ×2 (07:23→19:14)
[2022-01-06] MEDS: K and/or MAG REPLACEMENT MC SCH (07:36)
[2022-01-06] MEDS: ferrous sulfate 325mg tablet PO SCH (07:59)
[2022-01-06] MEDS ORDERED: amLODIPine 5mg tablet PO SCH (08:00)
[2022-01-06] MEDS: linezolid 600mg tablet OGT SCH ×3 (08:00→20:37)
[2022-01-06] MEDS ORDERED: metolazone 2.5mg tablet PO SCH (08:00)
[2022-01-06] MEDS ORDERED: linezolid 600mg tablet PO SCH (08:00)
[2022-01-06] MEDS: Dakins solution (1/4 strength) 473ml solution TP SCH (08:00)
[2022-01-06] MEDS ORDERED: furosemide 20MG tablet PO SCH (08:00)
[2022-01-06] MEDS ORDERED: pantoprazole 40mg Tablet.DR PO SCH (08:00)
[2022-01-06] MEDS: pantoprazole 40MG/NS 100ML BAG 100 ML IV SCH (08:03)
[2022-01-06] MEDS: losartan 50mg tablet OGT SCH ×2 (08:05→20:36)
[2022-01-06] MEDS: amLODIPine 5mg tablet OGT SCH (08:06)
[2022-01-06] MEDS: metoprolol tartrate 50mg tablet OGT SCH ×2 (08:06→20:37)
[2022-01-06] MEDS: flecainide 50mg tablet OGT SCH ×2 (08:07→20:36)
[2022-01-06] MEDS: metolazone 2.5mg tablet OGT SCH ×2 (08:07→20:00)
[2022-01-06] MEDS: heparin, porcine 5000 units/ml vial SQ SCH ×2 (08:08→20:36)
[2022-01-06] MEDS: nicotine 14mg patch - 24hr TD SCH (08:09)
[2022-01-06] MEDS: nystatin 15 GM powder TP SCH ×3 (08:09→21:46)
--- NOTE | 2022-01-06 08:09 | NUR ---
Dr. Domínguez informed that zyvox was ordered on pt, but pt is still getting fentanyl, interaction with possible risk of serotonin syndrome. stated to hold zyvox at this time.
[2022-01-06] MEDS: furosemide 40 MG/4 ML oral solution UD cup OGT SCH (08:10)
[2022-01-06] MEDS: docusate sodium 100mg/10ml UD cup OGT SCH ×2 (08:22→20:35)
[2022-01-06] MEDS: dexmedetomidine/D5W 100mL 100 ML IV SCH ×3 (09:11→21:46)
[2022-01-06] MEDS: FENTANYL-0.9 % NACL/PF 100 ML IV PRN ×2 (11:08→23:53)
--- NOTE | 2022-01-06 11:12 | NUR ---
Zyvox consult: Pt started on zyvox since home meds currently held this AM as pt on Fentanyl pending ID input per ocean lifeguard at rounds. Addendum: 01/06/22 at [address] Amended: Links added.
--- NOTE | 2022-01-06 18:21 | NUR ---
Problems reprioritized. Patient report given, questions answered & plan of care reviewed with Mateo GOMEZ.
[2022-01-07] VITALS (33 sets, daily range): BP systolic 108–187; BP diastolic 68–111
[2022-01-07] MEDS: methylPREDNISolone sod succ 125mg/2ml vial IV SCH ×4 (02:35→19:52)
[2022-01-07] MEDS: dexmedetomidine/D5W 100mL 100 ML IV SCH ×5 (02:35→22:22)
[2022-01-07 02:50] LABS: BASOPHILS % (AUTO) 0.1 % (0-1); EOSINOPHILS % (AUTO) 0 % (0-6); HEMATOCRIT 37.7 % (35.0-45.0); HEMOGLOBIN 11.9 g/dl (12.0-16.0); LYMPHOCYTES # (AUTO) 0.2 X10'3 (1.1-4.8); LYMPHOCYTES % (AUTO) 2.1 % (21-51); MEAN CORPUSCULAR HEMOGLOBIN 25.4 PG (27.0-31.0); MEAN CORPUSCULAR HGB CONC 31.6 g/dL (33.0-36.5); MEAN CORPUSCULAR VOLUME 80.2 FL (78-98); MONOCYTES # (AUTO) 0.4 X10'3 (0-0.9); NEUTROPHILS # (AUTO) 8.4 X10'3 (1.8-7.7); NEUTROPHILS % (AUTO) 93.8 % (42-75); PLATELET COUNT 333 X10'3 (140-440); RED CELL DISTRIBUTION WIDTH 19.6 % (11.5-14.5); WHITE BLOOD COUNT 8.9 X10'3 (4.5-11.0)
[2022-01-07 02:58] LABS: ALANINE AMINOTRANSFERASE 20 U/L (12-78); ALBUMIN 2.5 G/DL (3.4-5.0); ALBUMIN/GLOBULIN RATIO 0.6 (1.1-1.5); ALKALINE PHOSPHATASE 142 IU/L (46-116); ANION GAP 11 (8-16); ASPARTATE AMINO TRANSFERASE 10 U/L (10-37); BILIRUBIN,TOTAL 0.5 MG/DL (0.1-1.0); BLOOD UREA NITROGEN 59 MG/DL (7-18); BUN/CREATININE RATIO 42.1 (6.6-38.0); CALCIUM 8.2 MG/DL (8.5-10.1); CHLORIDE 100 MMOL/L (99-107); GLUCOSE 157 MG/DL (70-104); MAGNESIUM 2.2 MG/DL (1.5-2.4); POTASSIUM 4.2 MMOL/L (3.5-5.1); SODIUM 138 MMOL/L (135-145); TOTAL CARBON DIOXIDE 26.7 MMOL/L (24-32); TOTAL PROTEIN 6.8 G/DL (6.4-8.2); eGFR 38 ML/MIN
[2022-01-07 04:09] LABS: ABG BASE EXCESS 5.8 mmol/L (-2.0-2.0); ABG HCO3 27.7 mmol/L (22.0-26.0); ABG OXYGEN SATURATION 89.4 % (94-97); ABG PCO2 (T) 31.7 mmHg (32.0-45.0); ABG PO2 (T) 53.1 mmHg (75.0-100.0); ALLEN'S TEST POSITIVE; FCOHb 0.4 % (0.0-3.9); FMetHb 0.1 % (0.0-1.5); PATIENT TEMPERATURE 37.1; PEEP 8 cm H2O; RESPIRATORY RATE 22 b/min; TIDAL VOLUME 400 mL; TOTAL HEMOGLOBIN 13.1 G/dl (12.0-16.0)
[2022-01-07] MEDS ORDERED: propofol 1000mg/100ml bottle 100 ML IV SCH (04:30)
[2022-01-07] MEDS: FENTANYL-0.9 % NACL/PF 100 ML IV PRN (06:03)
[2022-01-07] MEDS: budesonide 0.5mg/2ml UD nebule IH SCH ×2 (07:25→23:01)
[2022-01-07] MEDS: ipratropium/albuterol 3ml nebule NEB SCH ×5 (07:25→23:01)
[2022-01-07] MEDS ORDERED: hydrALAZINE 20mg/ml inj. IV PRN (07:45)
[2022-01-07] MEDS: mineral oil/petrolatum, white cream 113gm jar TP SCH (08:00)
[2022-01-07] MEDS: flecainide 50mg tablet OGT SCH ×2 (08:44→19:53)
[2022-01-07] MEDS: metoprolol tartrate 50mg tablet OGT SCH ×2 (08:45→19:52)
[2022-01-07] MEDS: metolazone 2.5mg tablet OGT SCH (08:45)
[2022-01-07] MEDS: amLODIPine 5mg tablet OGT SCH (08:46)
[2022-01-07] MEDS: ferrous sulfate 325mg tablet PO SCH (08:47)
[2022-01-07] MEDS: losartan 50mg tablet OGT SCH ×2 (08:47→19:53)
[2022-01-07] MEDS: pantoprazole 40MG/NS 100ML BAG 100 ML IV SCH (08:47)
[2022-01-07] MEDS: docusate sodium 100mg/10ml UD cup OGT SCH ×2 (08:49→19:52)
[2022-01-07] MEDS: furosemide 40 MG/4 ML oral solution UD cup OGT SCH (08:49)
[2022-01-07] MEDS: heparin, porcine 5000 units/ml vial SQ SCH ×2 (08:49→19:54)
[2022-01-07] MEDS: nicotine 14mg patch - 24hr TD SCH (08:50)
[2022-01-07] MEDS: nystatin 15 GM powder TP SCH ×3 (08:50→21:15)
[2022-01-07 11:11] LABS: PHOSPHORUS 3.7 MG/DL (2.3-4.5)
--- NOTE | 2022-01-07 11:21 | NUR ---
F/u 01/07: Pt remains intubated tolerating TF at goal. Propofol started this AM however off at this time per RN. Pt zyvox stopped per MD note and no open skin areas per WOC note this admit. No BM this admit only smear 01/03 receiving routine colace and PO iron w/ lactulose to start today per chemistry intern at rounds. Will continue to monitor for further nutrition intervention needs. Recommendations: 1) Continuous Vital HP via OGT with 65 mL/hr goal rate to provide 1560 mL total volume/day, 1560 kcal, 137 g protein, and 1304 mL water 2) Additional 125 mL water flush Q4H; pt admit with CHF exacerbation though pt hypernatremic at this time; monitor serum Na 3) Prealbumin q Thursday/; daily scaled weights 4) Routine bowel care 5) With diet advancement following extubation consider: gelatin, chocolate pudding, and cottage cheese per patient's preferences at previous admits; BSS with ST prior to PO diet advancement; recommend regular diet given historically poor PO intake during admits Addendum: 01/07/22 at [address] Amended: Links added.
[2022-01-07] MEDS: lactulose 20gm/30ml cup OGT SCH ×2 (12:19→19:52)
[2022-01-07] MEDS: acetaminophen 325mg tablet OGT PRN (19:53)
[2022-01-08] VITALS (34 sets, daily range): BP systolic 103–173; BP diastolic 54–92
[2022-01-08 02:48] LABS: BASOPHILS % (AUTO) 0.1 % (0-1); EOSINOPHILS % (AUTO) 0 % (0-6); HEMATOCRIT 37.3 % (35.0-45.0); HEMOGLOBIN 11.7 g/dl (12.0-16.0); LYMPHOCYTES # (AUTO) 0.3 X10'3 (1.1-4.8); LYMPHOCYTES % (AUTO) 3.7 % (21-51); MEAN CORPUSCULAR HEMOGLOBIN 25.3 PG (27.0-31.0); MEAN CORPUSCULAR HGB CONC 31.4 g/dL (33.0-36.5); MEAN CORPUSCULAR VOLUME 80.5 FL (78-98); MEAN PLATELET VOLUME 8.4 FL (7.4-10.4); MONOCYTES # (AUTO) 0.4 X10'3 (0-0.9); MONOCYTES % (AUTO) 4.7 % (2-12); NEUTROPHILS # (AUTO) 6.9 X10'3 (1.8-7.7); NEUTROPHILS % (AUTO) 91.5 % (42-75); PLATELET COUNT 294 X10'3 (140-440); RED BLOOD COUNT 4.64 X10'6 (4.20-5.60); RED CELL DISTRIBUTION WIDTH 18.9 % (11.5-14.5); WHITE BLOOD COUNT 7.5 X10'3 (4.5-11.0)
[2022-01-08] MEDS: methylPREDNISolone sod succ 125mg/2ml vial IV SCH ×4 (02:54→19:47)
[2022-01-08 03:13] LABS: ALANINE AMINOTRANSFERASE 25 U/L (12-78); ALBUMIN 2.6 G/DL (3.4-5.0); ALBUMIN/GLOBULIN RATIO 0.7 (1.1-1.5); ALKALINE PHOSPHATASE 134 IU/L (46-116); ANION GAP 11 (8-16); ASPARTATE AMINO TRANSFERASE 14 U/L (10-37); BILIRUBIN,TOTAL 0.6 MG/DL (0.1-1.0); BLOOD UREA NITROGEN 53 MG/DL (7-18); BUN/CREATININE RATIO 40.8 (6.6-38.0); CALCIUM 7.6 MG/DL (8.5-10.1); CHLORIDE 96 MMOL/L (99-107); GLUCOSE 135 MG/DL (70-104); MAGNESIUM 2.3 MG/DL (1.5-2.4); POTASSIUM 4.2 MMOL/L (3.5-5.1); SODIUM 136 MMOL/L (135-145); TOTAL CARBON DIOXIDE 29.3 MMOL/L (24-32); TOTAL PROTEIN 6.6 G/DL (6.4-8.2); TRIGLYCERIDES 151 MG/DL (20-135); eGFR 41 ML/MIN
[2022-01-08] MEDS: dexmedetomidine/D5W 100mL 100 ML IV SCH ×2 (03:22→09:12)
[2022-01-08] MEDS: ipratropium/albuterol 3ml nebule NEB SCH ×6 (03:30→23:04)
[2022-01-08 03:56] LABS: ABG HCO3 28.9 mmol/L (22.0-26.0); ABG OXYGEN SATURATION 97.2 % (94-97); ABG PCO2 (T) 40.3 mmHg (32.0-45.0); ABG PO2 (T) 89.7 mmHg (75.0-100.0); ALLEN'S TEST POSITIVE; FCOHb 1.3 % (0.0-3.9); FMetHb 0.1 % (0.0-1.5); FO2Hb 95.8 % (94-97); PATIENT TEMPERATURE 37.2; PEEP 8 cm H2O; RESPIRATORY RATE 18 b/min; TIDAL VOLUME 350 mL; TOTAL HEMOGLOBIN 12.7 G/dl (12.0-16.0)
[2022-01-08 04:07] LABS: PLATELET ESTIMATE NORMAL
[2022-01-08 04:08] LABS: ANISOCYTOSIS 2+
[2022-01-08 04:09] LABS: ELLIPTOCYTES FEW; POLYCHROMASIA FEW; TEAR DROP CELLS FEW
--- NOTE | 2022-01-08 06:00 | NUR ---
Patient in room ICU 2038. I have received report from Mateo GOMEZ and had the opportunity to ask questions and assume patient care.
[2022-01-08] MEDS: budesonide 0.5mg/2ml UD nebule IH SCH ×2 (07:10→19:13)
[2022-01-08] MEDS: ferrous sulfate 300mg/5ml UD oral liquid OGT SCH (07:48)
[2022-01-08] MEDS: nicotine 14mg patch - 24hr TD SCH (07:48)
[2022-01-08] MEDS: heparin, porcine 5000 units/ml vial SQ SCH ×2 (07:49→19:49)
[2022-01-08] MEDS: docusate sodium 100mg/10ml UD cup OGT SCH ×2 (07:49→20:00)
[2022-01-08] MEDS: losartan 50mg tablet OGT SCH ×2 (07:49→19:48)
[2022-01-08] MEDS: lactulose 20gm/30ml cup OGT SCH ×2 (07:49→20:00)
[2022-01-08] MEDS: flecainide 50mg tablet OGT SCH ×2 (07:50→19:48)
[2022-01-08] MEDS: lansoprazole 15mg solutab OGT SCH (07:50)
[2022-01-08] MEDS: metoprolol tartrate 50mg tablet OGT SCH ×2 (07:50→19:47)
[2022-01-08] MEDS: amLODIPine 5mg tablet OGT SCH (07:50)
[2022-01-08] MEDS: nystatin 15 GM powder TP SCH ×3 (07:51→20:11)
[2022-01-08] MEDS: mineral oil/petrolatum, white cream 113gm jar TP SCH (07:51)
[2022-01-08] MEDS ORDERED: bisacodyl 10mg suppository rectal RC ONE (10:50)
[2022-01-08] MEDS: acetaminophen 325mg tablet OGT PRN (14:04)
--- NOTE | 2022-01-08 18:37 | NUR ---
Problems reprioritized. Patient report given, questions answered & plan of care reviewed with Yaneth GOMEZ and Efrain RN.
--- NOTE | 2022-01-08 23:28 | NUR ---
CHG wipes bath given. Candice care and beasley care completed using soap bath wipes. EKG electrodes replaced. SpO2 electrode replaced. Pt turned to semi lira's position. Complete linen change performed.
[2022-01-09] VITALS (29 sets, daily range): BP systolic 135–161; BP diastolic 57–81
[2022-01-09] MEDS: methylPREDNISolone sod succ 125mg/2ml vial IV SCH (01:15)
[2022-01-09] MEDS: ipratropium/albuterol 3ml nebule NEB SCH ×6 (02:55→23:29)
[2022-01-09 03:11] LABS: BASOPHILS % (AUTO) 0.2 % (0-1); EOSINOPHILS % (AUTO) 0 % (0-6); HEMOGLOBIN 11.5 g/dl (12.0-16.0); LYMPHOCYTES # (AUTO) 0.3 X10'3 (1.1-4.8); LYMPHOCYTES % (AUTO) 3.3 % (21-51); MEAN CORPUSCULAR HEMOGLOBIN 25.5 PG (27.0-31.0); MEAN CORPUSCULAR HGB CONC 31.9 g/dL (33.0-36.5); MEAN PLATELET VOLUME 8.7 FL (7.4-10.4); MONOCYTES # (AUTO) 0.4 X10'3 (0-0.9); NEUTROPHILS # (AUTO) 8.4 X10'3 (1.8-7.7); NEUTROPHILS % (AUTO) 92.5 % (42-75); PLATELET COUNT 305 X10'3 (140-440); RED CELL DISTRIBUTION WIDTH 18.4 % (11.5-14.5); WHITE BLOOD COUNT 9.1 X10'3 (4.5-11.0)
[2022-01-09 03:24] LABS: ALANINE AMINOTRANSFERASE 35 U/L (12-78); ALBUMIN 2.6 G/DL (3.4-5.0); ALBUMIN/GLOBULIN RATIO 0.7 (1.1-1.5); ALKALINE PHOSPHATASE 121 IU/L (46-116); ANION GAP 7 (8-16); ASPARTATE AMINO TRANSFERASE 18 U/L (10-37); BILIRUBIN,TOTAL 0.7 MG/DL (0.1-1.0); BLOOD UREA NITROGEN 45 MG/DL (7-18); BUN/CREATININE RATIO 37.2 (6.6-38.0); CALCIUM 7.8 MG/DL (8.5-10.1); CHLORIDE 97 MMOL/L (99-107); CREATININE 1.21 MG/DL (0.40-0.90); GLUCOSE 112 MG/DL (70-104); POTASSIUM 4.4 MMOL/L (3.5-5.1); SODIUM 135 MMOL/L (135-145); TOTAL CARBON DIOXIDE 31.5 MMOL/L (24-32); TOTAL PROTEIN 6.3 G/DL (6.4-8.2); eGFR 44 ML/MIN
[2022-01-09] MEDS: budesonide 0.5mg/2ml UD nebule IH SCH ×2 (07:06→20:07)
[2022-01-09] MEDS: lansoprazole 15mg solutab OGT SCH (07:30)
[2022-01-09 07:54] LABS: ABG BASE EXCESS 9.3 mmol/L (-2.0-2.0); ABG HCO3 35.4 mmol/L (22.0-26.0); ABG OXYGEN SATURATION 96.2 % (94-97); ABG PCO2 (T) 54.3 mmHg (32.0-45.0); ABG PO2 (T) 84.3 mmHg (75.0-100.0); ALLEN'S TEST POSITIVE; FCOHb 0.1 % (0.0-3.9); FMetHb 0.2 % (0.0-1.5); FO2Hb 95.9 % (94-97); PATIENT TEMPERATURE 36.8; PEEP 5 cm H2O; TOTAL HEMOGLOBIN 12.8 G/dl (12.0-16.0)
[2022-01-09] MEDS: docusate sodium 100mg/10ml UD cup OGT SCH ×2 (08:00→19:43)
[2022-01-09] MEDS: losartan 50mg tablet OGT SCH ×2 (08:00→19:44)
[2022-01-09] MEDS: metoprolol tartrate 50mg tablet OGT SCH ×2 (08:00→19:44)
[2022-01-09] MEDS: nystatin 15 GM powder TP SCH ×3 (08:00→20:25)
[2022-01-09] MEDS: amLODIPine 5mg tablet OGT SCH (08:00)
[2022-01-09] MEDS: heparin, porcine 5000 units/ml vial SQ SCH ×2 (08:00→19:45)
[2022-01-09] MEDS: methylPREDNISolone sod succ/PF 40mg inj. IV SCH ×3 (08:00→23:59)
[2022-01-09] MEDS: ferrous sulfate 300mg/5ml UD oral liquid OGT SCH (08:00)
[2022-01-09] MEDS: lactulose 20gm/30ml cup OGT SCH ×2 (08:00→19:43)
[2022-01-09] MEDS: flecainide 50mg tablet OGT SCH ×2 (08:00→19:43)
[2022-01-09] MEDS: nicotine 14mg patch - 24hr TD SCH (10:46)
[2022-01-09] MEDS: mineral oil/petrolatum, white cream 113gm jar TP SCH (10:46)
--- NOTE | 2022-01-09 11:00 | NUR ---
PATIENT EXTUBATED @ 1045 ON NC @4L SATURATIONS 98% TOLERATING WELL AWAKE AND ALERT.
[2022-01-09] MEDS: dexmedetomidine/D5W 100mL 100 ML IV SCH ×2 (13:06→22:38)
--- NOTE | 2022-01-09 13:39 | NUR ---
PATIENT SITTING UP IN CHAIR TOLERATING WELL ON NC @2L SATURATIONS 97%.
[2022-01-10] VITALS (13 sets, daily range): BP systolic 130–183; BP diastolic 57–151
--- NOTE | 2022-01-10 02:00 | NUR ---
has been awake all night. observed rippiing her blood pressure cuff off while NIBP attempting to cycle. Explained need to allow BP to be taken. Pt is obstinate, stating she wants to get up "and walk around". Reminded she was too weak to even stand at the bedside with PT and had to be physically lifted to the chair and back to bed. Increasing agitated stating, "the doctor said I could go home". Reoriented to here and now, reviewed progress necessary to be discharged home and again requested to allow BP reading. Pt would agree only if nurse agreed to not taking another BP for 2 hours. Repositioned with pillows for comfort., lights dimmed, encouraged to try to sleep.
[2022-01-10] MEDS: ipratropium/albuterol 3ml nebule NEB SCH ×6 (03:00→23:00)
[2022-01-10 06:22] LABS: BASOPHILS % (AUTO) 0.1 % (0-1); EOSINOPHILS % (AUTO) 0 % (0-6); HEMATOCRIT 39.4 % (35.0-45.0); HEMOGLOBIN 12.3 g/dl (12.0-16.0); LYMPHOCYTES # (AUTO) 0.3 X10'3 (1.1-4.8); LYMPHOCYTES % (AUTO) 4.1 % (21-51); MEAN CORPUSCULAR HGB CONC 31.2 g/dL (33.0-36.5); MEAN CORPUSCULAR VOLUME 80.1 FL (78-98); MEAN PLATELET VOLUME 8.8 FL (7.4-10.4); MONOCYTES # (AUTO) 0.3 X10'3 (0-0.9); NEUTROPHILS % (AUTO) 91.8 % (42-75); PLATELET COUNT 330 X10'3 (140-440); RED BLOOD COUNT 4.92 X10'6 (4.20-5.60); RED CELL DISTRIBUTION WIDTH 18.6 % (11.5-14.5); WHITE BLOOD COUNT 7.6 X10'3 (4.5-11.0)
[2022-01-10 06:58] LABS: ALANINE AMINOTRANSFERASE 37 U/L (12-78); ALBUMIN 2.8 G/DL (3.4-5.0); ALBUMIN/GLOBULIN RATIO 0.8 (1.1-1.5); ALKALINE PHOSPHATASE 121 IU/L (46-116); ANION GAP 5 (8-16); ASPARTATE AMINO TRANSFERASE 16 U/L (10-37); BILIRUBIN,TOTAL 0.6 MG/DL (0.1-1.0); BLOOD UREA NITROGEN 39 MG/DL (7-18); BUN/CREATININE RATIO 34.5 (6.6-38.0); CALCIUM 8.4 MG/DL (8.5-10.1); CHLORIDE 102 MMOL/L (99-107); CREATININE 1.13 MG/DL (0.40-0.90); GLUCOSE 99 MG/DL (70-104); POTASSIUM 4.8 MMOL/L (3.5-5.1); SODIUM 138 MMOL/L (135-145); TOTAL CARBON DIOXIDE 31.4 MMOL/L (24-32); TOTAL PROTEIN 6.5 G/DL (6.4-8.2); eGFR 48 ML/MIN
[2022-01-10] MEDS: budesonide 0.5mg/2ml UD nebule IH SCH ×2 (07:23→19:10)
[2022-01-10 07:24] LABS: ANISOCYTOSIS 2+; ELLIPTOCYTES FEW; PLATELET ESTIMATE NORMAL; POLYCHROMASIA FEW; TEAR DROP CELLS FEW
[2022-01-10] MEDS: lansoprazole 15mg solutab OGT SCH (07:30)
[2022-01-10] MEDS: lactulose 20gm/30ml cup OGT SCH ×3 (08:00→08:56)
[2022-01-10] MEDS: mineral oil/petrolatum, white cream 113gm jar TP SCH (08:00)
[2022-01-10] MEDS: docusate sodium 100mg/10ml UD cup OGT SCH ×3 (08:00→08:55)
[2022-01-10] MEDS: nicotine 14mg patch - 24hr TD SCH (08:51)
[2022-01-10] MEDS: ferrous sulfate 300mg/5ml UD oral liquid OGT SCH (08:51)
[2022-01-10] MEDS: methylPREDNISolone sod succ/PF 40mg inj. IV SCH ×3 (08:51→23:08)
[2022-01-10] MEDS: losartan 50mg tablet OGT SCH ×2 (08:52→20:00)
[2022-01-10] MEDS: heparin, porcine 5000 units/ml vial SQ SCH ×2 (08:52→20:26)
[2022-01-10] MEDS: metoprolol tartrate 50mg tablet OGT SCH ×2 (08:53→20:00)
[2022-01-10] MEDS: amLODIPine 5mg tablet OGT SCH (08:53)
[2022-01-10] MEDS: flecainide 50mg tablet OGT SCH ×2 (08:53→20:00)
[2022-01-10] MEDS: nystatin 15 GM powder TP SCH ×3 (08:56→21:00)
--- NOTE | 2022-01-10 11:10 | NUR ---
F/u 01/10: Pt s/p extubation on 1L NC per EMR advanced to full liquids diet tolerating well ate most of breakfast w/ no swallow issues per RN this AM; pending documentation. LBM 01/08 refused bowel regimen this AM per EMR. Will monitor for PO diet advancement/tolerance and further nutrition intervention needs this admit. Recommendations: 1) advance diet as medically indicated to regular; consider heart healthy restriction if PO persistently adequate 2) once diet advances consider: gelatin, chocolate pudding, and cottage cheese per patient's preferences at previous admits; monitor PO trends 3) monitor for PO trends and ONS needs 4) routine bowel care 5) weekly wts Addendum: 01/10/22 at [address] Amended: Links added.
--- NOTE | 2022-01-10 21:54 | NUR ---
Pt has refused night time medications, despite being told risks. Addendum: 01/11/22 at 0007 by Lina Vance RN Amended: Links added.
[2022-01-11 02:00] VITALS: BP 195/90
[2022-01-11] MEDS: ipratropium/albuterol 3ml nebule NEB SCH ×6 (03:00→23:27)
[2022-01-11 06:00] VITALS: BP 160/96
--- NOTE | 2022-01-11 06:21 | NUR ---
Problems reprioritized. Patient report given, questions answered & plan of care reviewed with Sergio GOMEZ. Addendum: 01/11/22 at 0621 by Lina Vance RN Amended: Links added.
[2022-01-11 06:27] LABS: BASOPHILS % (AUTO) 0.1 % (0-1); EOSINOPHILS % (AUTO) 0 % (0-6); HEMATOCRIT 42.6 % (35.0-45.0); HEMOGLOBIN 13.7 g/dl (12.0-16.0); LYMPHOCYTES # (AUTO) 1.2 X10'3 (1.1-4.8); MEAN CORPUSCULAR HEMOGLOBIN 25.9 PG (27.0-31.0); MEAN CORPUSCULAR HGB CONC 32.1 g/dL (33.0-36.5); MEAN CORPUSCULAR VOLUME 80.7 FL (78-98); MEAN PLATELET VOLUME 8.7 FL (7.4-10.4); MONOCYTES # (AUTO) 1.1 X10'3 (0-0.9); MONOCYTES % (AUTO) 11.2 % (2-12); NEUTROPHILS # (AUTO) 7.2 X10'3 (1.8-7.7); NEUTROPHILS % (AUTO) 75.7 % (42-75); PLATELET COUNT 389 X10'3 (140-440); RED BLOOD COUNT 5.27 X10'6 (4.20-5.60); RED CELL DISTRIBUTION WIDTH 18.4 % (11.5-14.5); WHITE BLOOD COUNT 9.6 X10'3 (4.5-11.0)
[2022-01-11 06:36] LABS: ALANINE AMINOTRANSFERASE 31 U/L (12-78); ALBUMIN/GLOBULIN RATIO 0.8 (1.1-1.5); ALKALINE PHOSPHATASE 126 IU/L (46-116); ANION GAP 4 (8-16); ASPARTATE AMINO TRANSFERASE 12 U/L (10-37); BILIRUBIN,TOTAL 0.6 MG/DL (0.1-1.0); BLOOD UREA NITROGEN 39 MG/DL (7-18); BUN/CREATININE RATIO 32.2 (6.6-38.0); CALCIUM 8.5 MG/DL (8.5-10.1); CHLORIDE 104 MMOL/L (99-107); CREATININE 1.21 MG/DL (0.40-0.90); GLUCOSE 83 MG/DL (70-104); SODIUM 140 MMOL/L (135-145); TOTAL CARBON DIOXIDE 32.4 MMOL/L (24-32); TOTAL PROTEIN 6.7 G/DL (6.4-8.2); eGFR 44 ML/MIN
[2022-01-11] MEDS: budesonide 0.5mg/2ml UD nebule IH SCH ×2 (07:29→21:00)
[2022-01-11] MEDS: lansoprazole 15mg solutab OGT SCH (07:30)
[2022-01-11] MEDS: ferrous sulfate 300mg/5ml UD oral liquid OGT SCH (08:00)
[2022-01-11] MEDS: nicotine 14mg patch - 24hr TD SCH (08:00)
[2022-01-11] MEDS: nystatin 15 GM powder TP SCH ×3 (08:00→21:00)
[2022-01-11] MEDS: mineral oil/petrolatum, white cream 113gm jar TP SCH (08:00)
[2022-01-11] MEDS: flecainide 50mg tablet OGT SCH ×2 (08:00→20:00)
[2022-01-11] MEDS: lactulose 20gm/30ml cup OGT SCH ×2 (08:00→20:00)
[2022-01-11] MEDS: docusate sodium 100mg/10ml UD cup OGT SCH ×2 (08:00→20:00)
[2022-01-11] MEDS: losartan 50mg tablet OGT SCH ×2 (08:00→20:00)
[2022-01-11] MEDS: heparin, porcine 5000 units/ml vial SQ SCH ×2 (08:00→21:31)
[2022-01-11] MEDS: metoprolol tartrate 50mg tablet OGT SCH ×2 (08:00→20:00)
[2022-01-11] MEDS: amLODIPine 5mg tablet OGT SCH (08:00)
[2022-01-11 11:00] VITALS: BP 152/80
[2022-01-11] MEDS ORDERED: ondansetron 4mg rapidly disintigrating tab PO PRN (11:25)
--- NOTE | 2022-01-11 15:31 | NUR ---
notified, Pt on Full liquids, also pt refusing nursing interventions. Awaiting callback.
[2022-01-11 18:30] VITALS: BP 131/57
--- NOTE | 2022-01-11 18:41 | NUR ---
Patient in room PCU 3017. I have received report from Sergio GOMEZ and had the opportunity to ask questions and assume patient care.
--- NOTE | 2022-01-11 20:39 | NUR ---
Doctor James notified that the patient is leaving AMA and she is calling a cab. She has all of her belongings.The patiient is signing the AMA form at this time and the Charge Nurse explained to her that she is leaving against the doctors advice.
--- NOTE | 2022-01-11 21:23 | NUR ---
Patient changed her mind and decided to stay. She wants to get a hold of her caregiver before she goes home so she decided to stay the night.
[2022-01-11 22:00] VITALS: BP 127/55
--- NOTE | 2022-01-11 22:01 | NUR ---
Spoke with Stuart, the patients caregiver, at this time and informed him of the patients wishes to go home. He is going to call at 0800 in the morning and talk with the patient. The patient is refusing most of her medications and her dressing changes. The caregiver was informed of the patients refusal and he said that her would talk to the patient about this in the morning. The patient will be informed about the conversation per the caregivers request. Patient consented to her tele reapplied and she is currently in bed. Will continue to monitor.
[2022-01-12 02:00] VITALS: BP 128/57
[2022-01-12] MEDS: ipratropium/albuterol 3ml nebule NEB SCH ×6 (04:08→23:00)
[2022-01-12 06:00] VITALS: BP 138/70
--- NOTE | 2022-01-12 06:28 | NUR ---
Problems reprioritized. Patient report given, questions answered & plan of care reviewed with Sergio GOMEZ.
[2022-01-12 06:45] LABS: BASOPHILS % (AUTO) 0.1 % (0-1); EOSINOPHILS # (AUTO) 0.1 X10'3 (0-0.9); EOSINOPHILS % (AUTO) 0.9 % (0-6); LYMPHOCYTES # (AUTO) 1.6 X10'3 (1.1-4.8); LYMPHOCYTES % (AUTO) 19.9 % (21-51); MEAN PLATELET VOLUME 8.9 FL (7.4-10.4); MONOCYTES # (AUTO) 0.9 X10'3 (0-0.9); MONOCYTES % (AUTO) 10.9 % (2-12); NEUTROPHILS # (AUTO) 5.5 X10'3 (1.8-7.7); NEUTROPHILS % (AUTO) 68.2 % (42-75); PLATELET COUNT 335 X10'3 (140-440); WHITE BLOOD COUNT 8.1 X10'3 (4.5-11.0)
[2022-01-12 07:00] LABS: ALANINE AMINOTRANSFERASE 24 U/L (12-78); ALBUMIN 2.8 G/DL (3.4-5.0); ALBUMIN/GLOBULIN RATIO 0.8 (1.1-1.5); ALKALINE PHOSPHATASE 111 IU/L (46-116); ASPARTATE AMINO TRANSFERASE 14 U/L (10-37); BILIRUBIN,TOTAL 0.5 MG/DL (0.1-1.0); BLOOD UREA NITROGEN 39 MG/DL (7-18); CALCIUM 8.1 MG/DL (8.5-10.1); GLUCOSE 85 MG/DL (70-104); TOTAL PROTEIN 6.4 G/DL (6.4-8.2); eGFR 35 ML/MIN
[2022-01-12 07:08] LABS: ANION GAP 10 (8-16); CHLORIDE 103 MMOL/L (99-107); POTASSIUM 4.4 MMOL/L (3.5-5.1); SODIUM 140 MMOL/L (135-145); TOTAL CARBON DIOXIDE 27.4 MMOL/L (24-32)
[2022-01-12] MEDS: lansoprazole 15mg solutab OGT SCH (07:30)
[2022-01-12 07:47] LABS: HEMOGLOBIN 13.5 g/dl (12.0-16.0); MEAN CORPUSCULAR HEMOGLOBIN 26.2 PG (27.0-31.0); MEAN CORPUSCULAR HGB CONC 31.4 g/dL (33.0-36.5); MEAN CORPUSCULAR VOLUME 83.6 FL (78-98); RED BLOOD COUNT 5.14 X10'6 (4.20-5.60); RED CELL DISTRIBUTION WIDTH 17.3 % (11.5-14.5)
[2022-01-12] MEDS: budesonide 0.5mg/2ml UD nebule IH SCH ×2 (07:48→19:28)
[2022-01-12 07:50] LABS: ANISOCYTOSIS 2+; HYPOCHROMASIA 1+; PLATELET ESTIMATE NORMAL; STOMATOCYTES FEW
[2022-01-12 07:51] LABS: ELLIPTOCYTES FEW; TEAR DROP CELLS FEW
[2022-01-12] MEDS: losartan 50mg tablet OGT SCH ×2 (08:00→21:00)
[2022-01-12] MEDS: flecainide 50mg tablet OGT SCH ×2 (08:00→21:00)
[2022-01-12] MEDS: mineral oil/petrolatum, white cream 113gm jar TP SCH (08:00)
[2022-01-12] MEDS: docusate sodium 100mg/10ml UD cup OGT SCH ×2 (08:00→21:00)
[2022-01-12] MEDS: lactulose 20gm/30ml cup OGT SCH ×2 (08:00→21:00)
[2022-01-12] MEDS: nystatin 15 GM powder TP SCH ×3 (08:00→22:01)
[2022-01-12] MEDS: metoprolol tartrate 50mg tablet OGT SCH ×2 (08:00→21:00)
[2022-01-12] MEDS: amLODIPine 5mg tablet OGT SCH (08:00)
[2022-01-12] MEDS: ferrous sulfate 300mg/5ml UD oral liquid OGT SCH (08:00)
[2022-01-12] MEDS: nicotine 14mg patch - 24hr TD SCH (08:00)
[2022-01-12] MEDS: heparin, porcine 5000 units/ml vial SQ SCH ×2 (08:00→21:55)
[2022-01-12] MEDS: predniSONE 20 mg tablet PO SCH (08:00)
[2022-01-12 11:00] VITALS: BP 138/79
[2022-01-12 15:00] VITALS: BP 105/43
[2022-01-12 18:00] VITALS: BP 105/43
--- NOTE | 2022-01-12 18:40 | NUR ---
Patient in room PCU 3020. I have received report from Sergio GOMEZ and had the opportunity to ask questions and assume patient care.
[2022-01-12 22:00] VITALS: BP 137/63
[2022-01-13 02:00] VITALS: BP 144/71
[2022-01-13] MEDS: ipratropium/albuterol 3ml nebule NEB SCH ×3 (02:58→11:00)
[2022-01-13 06:23] LABS: BASOPHILS % (AUTO) 0.3 % (0-1); EOSINOPHILS # (AUTO) 0.1 X10'3 (0-0.9); EOSINOPHILS % (AUTO) 1.5 % (0-6); LYMPHOCYTES # (AUTO) 1.1 X10'3 (1.1-4.8); LYMPHOCYTES % (AUTO) 14.5 % (21-51); MEAN CORPUSCULAR HEMOGLOBIN 25.4 PG (27.0-31.0); MEAN CORPUSCULAR VOLUME 81.8 FL (78-98); MONOCYTES # (AUTO) 0.7 X10'3 (0-0.9); MONOCYTES % (AUTO) 9.5 % (2-12); NEUTROPHILS # (AUTO) 5.5 X10'3 (1.8-7.7); NEUTROPHILS % (AUTO) 74.2 % (42-75); PLATELET COUNT 331 X10'3 (140-440); RED BLOOD COUNT 5.13 X10'6 (4.20-5.60); RED CELL DISTRIBUTION WIDTH 18.5 % (11.5-14.5); WHITE BLOOD COUNT 7.5 X10'3 (4.5-11.0)
[2022-01-13 06:36] LABS: ALANINE AMINOTRANSFERASE 23 U/L (12-78); ALBUMIN 2.9 G/DL (3.4-5.0); ALBUMIN/GLOBULIN RATIO 0.9 (1.1-1.5); ALKALINE PHOSPHATASE 117 IU/L (46-116); ANION GAP 5 (8-16); ASPARTATE AMINO TRANSFERASE 14 U/L (10-37); BILIRUBIN,TOTAL 0.7 MG/DL (0.1-1.0); BLOOD UREA NITROGEN 29 MG/DL (7-18); BUN/CREATININE RATIO 20.9 (6.6-38.0); CALCIUM 8.5 MG/DL (8.5-10.1); CHLORIDE 107 MMOL/L (99-107); CREATININE 1.39 MG/DL (0.40-0.90); GLUCOSE 84 MG/DL (70-104); POTASSIUM 4.7 MMOL/L (3.5-5.1); SODIUM 143 MMOL/L (135-145); TOTAL CARBON DIOXIDE 30.7 MMOL/L (24-32); TOTAL PROTEIN 6.3 G/DL (6.4-8.2); eGFR 38 ML/MIN
[2022-01-13 07:00] VITALS: BP 151/79
[2022-01-13] MEDS: budesonide 0.5mg/2ml UD nebule IH SCH (07:18)
[2022-01-13] MEDS: flecainide 50mg tablet OGT SCH ×2 (07:20→07:44)
[2022-01-13] MEDS: lansoprazole 15mg solutab OGT SCH ×2 (07:20→07:30)
[2022-01-13] MEDS: predniSONE 20 mg tablet PO SCH ×2 (07:20→07:44)
[2022-01-13] MEDS: metoprolol tartrate 50mg tablet OGT SCH ×2 (07:20→07:43)
[2022-01-13] MEDS: lactulose 20gm/30ml cup OGT SCH ×2 (07:21→07:43)
[2022-01-13] MEDS: losartan 50mg tablet OGT SCH ×2 (07:21→07:43)
[2022-01-13] MEDS: nystatin 15 GM powder TP SCH ×3 (07:21→13:00)
[2022-01-13] MEDS: amLODIPine 5mg tablet OGT SCH ×2 (07:21→07:44)
[2022-01-13] MEDS: ferrous sulfate 300mg/5ml UD oral liquid OGT SCH ×2 (07:21→07:43)
[2022-01-13] MEDS: docusate sodium 100mg/10ml UD cup OGT SCH ×2 (07:21→07:43)
[2022-01-13] MEDS: heparin, porcine 5000 units/ml vial SQ SCH (07:22)
[2022-01-13] MEDS: nicotine 14mg patch - 24hr TD SCH ×2 (07:23→07:44)
[2022-01-13] MEDS: mineral oil/petrolatum, white cream 113gm jar TP SCH ×2 (07:23→07:44)
--- NOTE | 2022-01-13 07:35 | NUR ---
patient refused all morning meds except the heparin . open meds were wasted in sharps container and nicotine patch and nystop returned to omni. Pt educated about risks of not taking medications and she still refused stating "i don't think i need them."
[2022-01-13 11:00] VITALS: BP 135/51
[2022-01-13] MEDS ORDERED: PRED10TA23 PO (11:58)
--- NOTE | 2022-01-13 14:56 | NUR ---
WOUND INFECTION EDUCATION PROVIDED BY WOUND CARE 1. Patient instructed to call their primary doctor, or go the ED immediately if any of the following symptoms occur: * Increased pain in wound * Increase in drainage from the wound * Redness in the skin surrounding the wound * Warmth in the skin surrounding the wound * Bleeding from the wound * Temperature of 101 or greater 2. If any of these occur while in the hospital tell a nurse immediately. PRESSURE ULCER EDUCATION: DEFINITION: A pressure ulcer is an area of skin that breaks down when you stay in one position too long. The constant pressure against the skin reduces the blood flow to that area and the affected tissue dies. CAUSES: "Being bedridden or in a wheelchair "Fragile skin "Having a chronic condition, such as diabetes or vascular disease "Inability to move certain parts of your body without assistance "Older age "Incontinence of urine or stool SYMPTOMS: "A reddened area that DOES NOT turn white when pressed on - this can be the beginning of a pressure ulcer "A blister, deep sore or a crater - these can be advanced pressure ulcers FIRST AID: "Relieve the pressure on this area "Keep the area clean and dry "Call your primary doctor if you see any of the above symptoms "DO NOT massage the area "DO NOT use a donut shaped or ring shaped pillow- these actually interfere with the blood flow and cause complications PREVENTION: "Check for pressure ulcers everyday "Change position at least every two hours to relieve pressure "Use items that help relieve pressure- pillows, sheepskin, foam padding, and powders. "Keep skin clean and dry "Eat healthy well balanced meals "Exercise daily IF YOU SEE ANY OF THESE SYMPTOMS WHILE IN THE HOSPITAL - TELL YOUR NURSE IMMEDIATELY. IF YOU SEE ANY OF THESE SYMPTOMS WHILE AT HOME OR HAVE ANY QUESTIONS OR CONCERNS ABOUT PRESSURE ULCERS - CALL YOUR PRIMARY DOCTOR IMMEDIATELY. Addendum: 01/13/22 at 1457 by Madison Yepez LVN Amended: Links added.
--- NOTE | 2022-01-13 15:08 | NUR ---
Patient was DC to home. [facility] worker Stuart picked her up. PIV was removed with cannula intact. RX were sent to [facility] in [place]. DC instructions and warning s/s were reviewed with the patient and caregiver and they verbalized understanding. Patient was alert, oriented and appropriate at time of DC.
== END 2022-01-13 14:52 | disposition home or self-care (01) | DRG 720 ==
LOC: ER 13:00 → ED HOLD 16:44 → ICU 2S 18:03 → PCU 3S 01-10 14:20
PROVIDERS: ADMIT Surgery; ATTEND Surgery
PROC: 5A09357 Assistance with Respiratory Ventilation, Less than 24 Consecutive Hours, Continuous Positive Airway Pressure (ICD-10-PCS; principal; 2022-01-03)
PROC: 5A1955Z Respiratory Ventilation, Greater than 96 Consecutive Hours (ICD-10-PCS; 2022-01-03)
PROC: 0BH17EZ Insertion of Endotracheal Airway into Trachea, Via Natural or Artificial Opening (ICD-10-PCS; 2022-01-03)
PROC: 02HV33Z Insertion of Infusion Device into Superior Vena Cava, Percutaneous Approach (ICD-10-PCS; 2022-01-03)
DX: A41.9 Sepsis, unspecified organism (principal); J96.21 Acute and chronic respiratory failure with hypoxia; J44.1 Chronic obstructive pulmonary disease with (acute) exacerbation; G93.41 Metabolic encephalopathy; I50.33 Acute on chronic diastolic (congestive) heart failure; I13.0 Hypertensive heart and chronic kidney disease with heart failure and stage 1 through stage 4 chronic kidney disease, or unspecified chronic kidney disease; Z20.822 Contact with and (suspected) exposure to COVID-19; E87.4 Mixed disorder of acid-base balance; N39.0 Urinary tract infection, site not specified; Z60.2 Problems related to living alone; E87.0 Hyperosmolality and hypernatremia; F17.200 Nicotine dependence, unspecified, uncomplicated; I87.8 Other specified disorders of veins; F20.9 Schizophrenia, unspecified; I48.20 Chronic atrial fibrillation, unspecified; J93.82 Other air leak; J96.22 Acute and chronic respiratory failure with hypercapnia; L03.115 Cellulitis of right lower limb; L03.116 Cellulitis of left lower limb; N18.30 Chronic kidney disease, stage 3 unspecified; Z86.711 Personal history of pulmonary embolism; Z86.73 Personal history of transient ischemic attack (TIA), and cerebral infarction without residual deficits; Z88.8 Allergy status to other drugs, medicaments and biological substances; Z22.322 Carrier or suspected carrier of Methicillin resistant Staphylococcus aureus
CPT/HCPCS: 31500; 36415; 36556; 36600; 71045; 73620; 80053; 80305; 81001; 82803; 82948; 83605; 83735; 83880; 84100; 84132; 84134; 84145; 84478; 85007; 85008; 85018; 85025; 85610; 87040; 87070; 87081; 87088; 87635; 93005; 93306; 94002; 94003; 94640; 94660; 94760; 96374; 96375; 97110; 97116; 97161; 97530; 97535; 99291; 99292; C9113; G0378; J0360; J0456; J0696; J1644; J1940; J2704; J2920; J2930; J3010; J3480; J3490; J7030; J7512

== ENCOUNTER 2022-04-21 10:25 | Inpatient (IN) | payer MEDICAID ==
[~2022-04-21] VITALS: Ht 165.1 cm; Wt 104.0 kg
[~2022-04-21 10:25] MED LIST changes: +ALBU18HF2 IH; -AMLO10TA PO; -ATR0.5NEB IH; +AZIT500T9 PO; -BUDE0.5A11 NEB; -CALC60OI4 TOP; -CLON0.2T PO; -DOCU-345 PO; +FAMO20TA8 PO; -FERR325T33 PO; -FLEC50TA28 PO; +FLUC100T64 PO; -LACT1CAP26 PO; -LEVA0.6319 NEB; -LOSA100T57 PO; +LOSA50TA64 PO; +METO-395 PO; +NOR5T PO; -PANT40TA54 PO; -etomidate 2mg/ml inj. ONE; -rocuronium 10mg/ml inj IV ONE
[2022-04-21 11:51] LABS: BASOPHILS # (AUTO) 0.1 X10'3 (0-0.2); BASOPHILS % (AUTO) 0.7 % (0-1); EOSINOPHILS # (AUTO) 0.2 X10'3 (0-0.9); HEMATOCRIT 36.6 % (35.0-45.0); HEMOGLOBIN 11.7 g/dl (12.0-16.0); LYMPHOCYTES # (AUTO) 1.5 X10'3 (1.1-4.8); LYMPHOCYTES % (AUTO) 19.3 % (21-51); MEAN CORPUSCULAR HEMOGLOBIN 25.7 PG (27.0-31.0); MEAN CORPUSCULAR HGB CONC 31.9 g/dL (33.0-36.5); MEAN CORPUSCULAR VOLUME 80.7 FL (78-98); MEAN PLATELET VOLUME 8.2 FL (7.4-10.4); MONOCYTES # (AUTO) 0.9 X10'3 (0-0.9); NEUTROPHILS # (AUTO) 5.2 X10'3 (1.8-7.7); PLATELET COUNT 346 X10'3 (140-440); RED BLOOD COUNT 4.54 X10'6 (4.20-5.60); WHITE BLOOD COUNT 7.8 X10'3 (4.5-11.0)
[2022-04-21 12:46] LABS: ALANINE AMINOTRANSFERASE 15 U/L (12-78); ALBUMIN 2.8 G/DL (3.4-5.0); ALBUMIN/GLOBULIN RATIO 0.6 (1.1-1.5); ALKALINE PHOSPHATASE 155 IU/L (46-116); ANION GAP 8 (8-16); ASPARTATE AMINO TRANSFERASE 16 U/L (10-37); BILIRUBIN,TOTAL 0.3 MG/DL (0.1-1.0); BLOOD UREA NITROGEN 16 MG/DL (7-18); BUN/CREATININE RATIO 14.3 (6.6-38.0); CALCIUM 8.7 MG/DL (8.5-10.1); CHLORIDE 106 MMOL/L (99-107); CREATININE 1.12 MG/DL (0.40-0.90); GLUCOSE 86 MG/DL (70-104); POTASSIUM 4.4 MMOL/L (3.5-5.1); SODIUM 141 MMOL/L (135-145); TOTAL CARBON DIOXIDE 27.5 MMOL/L (24-32); TOTAL PROTEIN 7.6 G/DL (6.4-8.2); eGFR 49 ML/MIN
[2022-04-21] MEDS ORDERED: ampicillin/sulbac 3gm/NS 100ml 100 ML IV STA (15:55)
[2022-04-21] MEDS ORDERED: nystatin 15 GM powder TP SCH (15:55)
[2022-04-21] MEDS ORDERED: vancomycin/NS 1 GM ADD-VANTAGE 250 ML X 1 DOSE IV ONE (16:35)
[2022-04-21] MEDS ORDERED: LOSA100T57 PO (17:38)
[2022-04-21] MEDS ORDERED: METO200T49 PO (17:38)
[2022-04-21] MEDS ORDERED: FURO-150 PO (17:39)
[2022-04-21] MEDS ORDERED: FAMO20TA8 PO (17:40)
[2022-04-21] MEDS ORDERED: AMLO10TA PO (17:41)
[2022-04-21] MEDS ORDERED: ALBU18HF2 INH (17:42)
[2022-04-21] MEDS ORDERED: mag hydrox/Alum hydrox/simeth 30ml oral suspension PO PRN ×2 (21:35→21:45)
[2022-04-21] MEDS ORDERED: magnesium 2GM in 50ml NS 50 ML IV PRN ×2 (21:35→21:45)
[2022-04-21] MEDS ORDERED: acetaminophen 325mg tablet PO PRN ×2 (21:35→21:45)
[2022-04-21] MEDS ORDERED: ondansetron/PF 4mg/2ml inj IV PRN ×2 (21:35→21:45)
[2022-04-21] MEDS ORDERED: magnesium hydroxide 30ml (MOM) UD suspension PO PRN (21:35)
[2022-04-21] MEDS ORDERED: magnesium 4gm in 100ml NS 100 ML IV PRN ×2 (21:35→21:45)
[2022-04-21] MEDS ORDERED: potassium CL 10mEq/100ml bag 100 ML IV PRN ×2 (21:35→21:45)
[2022-04-21] MEDS ORDERED: POTASSIUM BICARB 20meq eff tab 20 MEQ TABLET.EFF PO PRN ×4 (21:35→21:45)
[2022-04-21] MEDS ORDERED: magnesium Cl slow-release 64mg tablet PO PRN ×2 (21:35→21:45)
[2022-04-21] MEDS ORDERED: diphenhydrAMINE 25mg capsule PO PRN (21:45)
[2022-04-21] MEDS ORDERED: HYDROcodone/acetaminophen 10/325mg tab PO PRN (21:45)
[2022-04-21] MEDS ORDERED: HYDROcodone/acetaminophen 5mg/325mg tablet PO PRN (21:45)
[2022-04-22] MEDS: heparin, porcine 5000 units/ml vial SQ SCH ×4 (00:09→23:38)
[2022-04-22] MEDS: piperacillin/tazo 3.375gm/50ml 50 ML IV SCH ×4 (00:09→23:37)
[2022-04-22 02:29] VITALS: BP 171/99
[2022-04-22] MEDS: vancomycin/NS 1 GM ADD-VANTAGE 250 ML IV SCH ×2 (03:13→16:09)
[2022-04-22 06:00] VITALS: BP 103/46
--- NOTE | 2022-04-22 06:30 | NUR ---
Problems reprioritized. Patient report given, questions answered & plan of care reviewed with Nilsa GOMEZ. Addendum: 04/22/22 at 0650 by Lisa Senior RN Amended: Links added.
[2022-04-22 06:46] LABS: BASOPHILS % (AUTO) 0.5 % (0-1); EOSINOPHILS # (AUTO) 0.1 X10'3 (0-0.9); EOSINOPHILS % (AUTO) 1.3 % (0-6); HEMATOCRIT 35.1 % (35.0-45.0); HEMOGLOBIN 11.2 g/dl (12.0-16.0); LYMPHOCYTES % (AUTO) 13.3 % (21-51); MEAN CORPUSCULAR HEMOGLOBIN 25.9 PG (27.0-31.0); MEAN CORPUSCULAR HGB CONC 31.7 g/dL (33.0-36.5); MEAN CORPUSCULAR VOLUME 81.7 FL (78-98); MEAN PLATELET VOLUME 8.1 FL (7.4-10.4); MONOCYTES # (AUTO) 0.8 X10'3 (0-0.9); NEUTROPHILS # (AUTO) 5.8 X10'3 (1.8-7.7); NEUTROPHILS % (AUTO) 74.9 % (42-75); PLATELET COUNT 325 X10'3 (140-440); RED CELL DISTRIBUTION WIDTH 15.5 % (11.5-14.5); WHITE BLOOD COUNT 7.8 X10'3 (4.5-11.0)
[2022-04-22 07:12] LABS: ALANINE AMINOTRANSFERASE 12 U/L (12-78); ALBUMIN 2.4 G/DL (3.4-5.0); ALBUMIN/GLOBULIN RATIO 0.6 (1.1-1.5); ALKALINE PHOSPHATASE 139 IU/L (46-116); ANION GAP 7 (8-16); ASPARTATE AMINO TRANSFERASE 16 U/L (10-37); BILIRUBIN,TOTAL 0.3 MG/DL (0.1-1.0); BLOOD UREA NITROGEN 13 MG/DL (7-18); BUN/CREATININE RATIO 12.3 (6.6-38.0); CALCIUM 8.5 MG/DL (8.5-10.1); CHLORIDE 109 MMOL/L (99-107); CREATININE 1.06 MG/DL (0.40-0.90); GLUCOSE 84 MG/DL (70-104); MAGNESIUM 2.1 MG/DL (1.5-2.4); POTASSIUM 4.4 MMOL/L (3.5-5.1); SODIUM 145 MMOL/L (135-145); TOTAL CARBON DIOXIDE 29.4 MMOL/L (24-32); TOTAL PROTEIN 6.7 G/DL (6.4-8.2); eGFR 52 ML/MIN
--- NOTE | 2022-04-22 07:15 | NUR ---
Patient in room ORTHO 4016. I have received report from Lisa GOMEZ and had the opportunity to ask questions and assume patient care.
[2022-04-22] MEDS: docusate sod 100mg capsule PO SCH ×2 (08:00→20:40)
[2022-04-22] MEDS ORDERED: docusate sod 100mg capsule PO SCH (08:00)
[2022-04-22] MEDS: K and/or MAG REPLACEMENT MC SCH ×2 (08:00→20:00)
[2022-04-22] MEDS ORDERED: K and/or MAG REPLACEMENT MC SCH (08:00)
[2022-04-22 10:00] VITALS: BP 149/78
[2022-04-22] MEDS ORDERED: fluconazole 100mg tablet PO ONE (13:00)
[2022-04-22] MEDS ORDERED: ALBUTEROL INHALER 1 PUFF/90 MCG INHALation IH PRN (13:05)
--- NOTE | 2022-04-22 13:18 | NUR ---
PRESSURE ULCER EDUCATION: DEFINITION: A pressure ulcer is an area of skin that breaks down when you stay in one position too long. The constant pressure against the skin reduces the blood flow to that area and the affected tissue dies. CAUSES: "Being bedridden or in a wheelchair "Fragile skin "Having a chronic condition, such as diabetes or vascular disease "Inability to move certain parts of your body without assistance "Older age "Incontinence of urine or stool SYMPTOMS: "A reddened area that DOES NOT turn white when pressed on - this can be the beginning of a pressure ulcer "A blister, deep sore or a crater - these can be advanced pressure ulcers FIRST AID: "Relieve the pressure on this area "Keep the area clean and dry "Call your primary doctor if you see any of the above symptoms "DO NOT massage the area "DO NOT use a donut shaped or ring shaped pillow- these actually interfere with the blood flow and cause complications PREVENTION: "Check for pressure ulcers everyday "Change position at least every two hours to relieve pressure "Use items that help relieve pressure- pillows, sheepskin, foam padding, and powders. "Keep skin clean and dry "Eat healthy well balanced meals "Exercise daily IF YOU SEE ANY OF THESE SYMPTOMS WHILE IN THE HOSPITAL - TELL YOUR NURSE IMMEDIATELY. IF YOU SEE ANY OF THESE SYMPTOMS WHILE AT HOME OR HAVE ANY QUESTIONS OR CONCERNS ABOUT PRESSURE ULCERS - CALL YOUR PRIMARY DOCTOR IMMEDIATELY. Addendum: 04/22/22 at 1319 by Madison Yepez LVN Amended: Links added.
[2022-04-22] MEDS: nystatin 15 GM powder TP SCH ×2 (14:27→20:40)
[2022-04-22 18:00] VITALS: BP 153/71
--- NOTE | 2022-04-22 18:40 | NUR ---
Patient in room ORTHO 4016. I have received report from Nilsa GOMEZ and had the opportunity to ask questions and assume patient care. Addendum: 04/22/22 at 1900 by Lisa Senior RN Amended: Links added.
--- NOTE | 2022-04-22 18:59 | NUR ---
Problems reprioritized. Patient report given, questions answered & plan of care reviewed with Lisa GOMEZ.
[2022-04-22] MEDS ORDERED: enoxaparin 40mg/0.4ml syringe SQ SCH (20:00)
[2022-04-22 22:00] VITALS: BP 153/79
[2022-04-23] VITALS (14 sets, daily range): BP systolic 131–190; BP diastolic 67–105
[2022-04-23] MEDS ORDERED: VANCOMYCIN LEVEL IV ONE (03:30)
[2022-04-23 04:27] LABS: ALANINE AMINOTRANSFERASE 16 U/L (12-78); ALBUMIN 2.5 G/DL (3.4-5.0); ALBUMIN/GLOBULIN RATIO 0.6 (1.1-1.5); ALKALINE PHOSPHATASE 142 IU/L (46-116); ANION GAP 4 (8-16); ASPARTATE AMINO TRANSFERASE 10 U/L (10-37); BILIRUBIN,TOTAL 0.3 MG/DL (0.1-1.0); BLOOD UREA NITROGEN 14 MG/DL (7-18); BUN/CREATININE RATIO 12.8 (6.6-38.0); CALCIUM 8.5 MG/DL (8.5-10.1); CHLORIDE 106 MMOL/L (99-107); CREATININE 1.09 MG/DL (0.40-0.90); GLUCOSE 99 MG/DL (70-104); MAGNESIUM 2.2 MG/DL (1.5-2.4); POTASSIUM 4.6 MMOL/L (3.5-5.1); SODIUM 143 MMOL/L (135-145); TOTAL CARBON DIOXIDE 32.9 MMOL/L (24-32); VANCOMYCIN,TROUGH 9.7 UG/ML (6.0-14.0); eGFR 50 ML/MIN
--- NOTE | 2022-04-23 05:00 | NUR ---
Pt. slept well until this morning - pt. experienced n/v medicated with antiemetic effective. Also pt. c/o back pain level of 5/10 pain level medicated effective. Isolation precaution observed. Call light within reach and bed in low position. Addendum: 04/23/22 at 0713 by Lisa Senior RN Amended: Links added.
--- NOTE | 2022-04-23 06:07 | NUR ---
Patient in room ORTHO 4016. I have received report from Lisa GOMEZ and had the opportunity to ask questions and assume patient care.
--- NOTE | 2022-04-23 06:10 | NUR ---
Problems reprioritized. Patient report given, questions answered & plan of care reviewed with Nilsa GOMEZ. Addendum: 04/23/22 at 0630 by Lisa Senior RN Amended: Links added.
[2022-04-23] MEDS: vancomycin/NS 1 GM ADD-VANTAGE 250 ML IV SCH (06:22)
[2022-04-23 06:57] LABS: BASOPHILS % (AUTO) 0.4 % (0-1); EOSINOPHILS # (AUTO) 0.1 X10'3 (0-0.9); EOSINOPHILS % (AUTO) 1.5 % (0-6); HEMATOCRIT 38.4 % (35.0-45.0); LYMPHOCYTES % (AUTO) 12.2 % (21-51); MEAN CORPUSCULAR HEMOGLOBIN 25.6 PG (27.0-31.0); MEAN CORPUSCULAR HGB CONC 31.3 g/dL (33.0-36.5); MEAN CORPUSCULAR VOLUME 81.9 FL (78-98); MEAN PLATELET VOLUME 7.9 FL (7.4-10.4); MONOCYTES # (AUTO) 0.7 X10'3 (0-0.9); MONOCYTES % (AUTO) 8.1 % (2-12); NEUTROPHILS # (AUTO) 6.6 X10'3 (1.8-7.7); NEUTROPHILS % (AUTO) 77.8 % (42-75); PLATELET COUNT 325 X10'3 (140-440); RED BLOOD COUNT 4.69 X10'6 (4.20-5.60); RED CELL DISTRIBUTION WIDTH 16.1 % (11.5-14.5); WHITE BLOOD COUNT 8.5 X10'3 (4.5-11.0)
[2022-04-23] MEDS: amLODIPine 5mg tablet PO SCH (07:08)
[2022-04-23] MEDS: famotidine 20mg tablet PO SCH (07:09)
[2022-04-23] MEDS: losartan 50mg tablet PO SCH (07:09)
[2022-04-23] MEDS: piperacillin/tazo 3.375gm/50ml 50 ML IV SCH ×2 (07:10→16:39)
[2022-04-23] MEDS: furosemide 20MG tablet PO SCH (07:10)
[2022-04-23] MEDS: metoprolol succinate 25mg (24-HOUR) SR. Tablet PO SCH (07:10)
[2022-04-23] MEDS: fluconazole 100mg tablet PO SCH (07:11)
[2022-04-23] MEDS: heparin, porcine 5000 units/ml vial SQ SCH ×2 (07:11→16:43)
--- NOTE | 2022-04-23 07:31 | NUR ---
Paged Dr. Neville regarding patient low 02 sats in low 80's and 5L 02 requirement.
[2022-04-23] MEDS: docusate sod 100mg capsule PO SCH ×2 (07:36→20:00)
[2022-04-23] MEDS: nystatin 15 GM powder TP SCH ×3 (07:36→21:26)
--- NOTE | 2022-04-23 07:41 | NUR ---
Patients O2 sats in the low 80's. pulled patient up in bed elevated head and increased patients oxygen to 5L NC. paged to see about RT treatments. Patient alert and oriented but sleepy the same as her baseline
[2022-04-23] MEDS: K and/or MAG REPLACEMENT MC SCH ×2 (08:00→20:00)
--- NOTE | 2022-04-23 10:11 | NUR ---
Message: Nilsa Rivera [phone] Re: Alfredo 2432 Please call re: possible ABG and patients BP is 185/90 after am medications and HR 99 SPO2 running between 88-91 patient sleepy but answers some questions Addendum: 04/23/22 at 1015 by Nilsa Benjamin RN Received orders for ABG and RT eval and treat will continue to monitor vitals
--- NOTE | 2022-04-23 10:15 | NUR ---
Paged respiratory for stat ABG and RT eval and treat.
[2022-04-23 10:40] LABS: ABG BASE EXCESS 1.7 mmol/L (-2.0-2.0); ABG HCO3 35.9 mmol/L (22.0-26.0); ABG OXYGEN SATURATION 90.5 % (94-97); ABG PCO2 (T) 128.1 mmHg (32.0-45.0); ABG PO2 (T) 65.5 mmHg (75.0-100.0); ALLEN'S TEST POSITIVE; FCOHb 0.6 % (0.0-3.9); FMetHb 0.3 % (0.0-1.5); FO2Hb 89.7 % (94-97); TOTAL HEMOGLOBIN 13.6 G/dl (12.0-16.0)
--- NOTE | 2022-04-23 10:44 | NUR ---
Message: Vlad Rivera [phone] Please call re: ABG Respiratory placing patient on BIPAP
--- NOTE | 2022-04-23 10:57 | NUR ---
Message: Nilsa -Neuro [phone] Re: Sudakow can I place on Tele monitor with continuous pulse ox until we get a bed. Patient does not look good
--- NOTE | 2022-04-23 11:34 | NUR ---
Patient on BIPAP awaiting ICU bed O2 sats 93% , Settings done by Respiratory. IPAP 20, EPAP 7, FI02 50%
[2022-04-23] MEDS ORDERED: methylPREDNISolone sod succ 125mg/2ml vial IV ONE (11:50)
[2022-04-23 12:15] LABS: ABG BASE EXCESS 2.7 mmol/L (-2.0-2.0); ABG HCO3 37.4 mmol/L (22.0-26.0); ABG OXYGEN SATURATION 93.5 % (94-97); ABG PCO2 (T) 132.8 mmHg (32.0-45.0); ABG PO2 (T) 77.9 mmHg (75.0-100.0); ALLEN'S TEST POSITIVE; FCOHb 0.7 % (0.0-3.9); FMetHb 0.4 % (0.0-1.5); FO2Hb 92.5 % (94-97); TOTAL HEMOGLOBIN 14.1 G/dl (12.0-16.0)
--- NOTE | 2022-04-23 12:21 | NUR ---
Message: Nilsa Castillo [phone] Re: Maria De Jesus 4016 New ABG's worse PH 7.06, PCO2 132.8,HCO3 37.4
--- NOTE | 2022-04-23 13:21 | NUR ---
Message: Nilsa Rivera [phone] Re: Maria De Jesus 4016 respiratory would like to draw another blood gas. Can I place order? Addendum: 04/23/22 at 1324 by Nilsa Benjamin RN Received orders to draw another ABG. If patient is improving we will continue to try and get the ICU bed, If patients ABG's are worse will call a Rapid response and wet crown blocking operator can contact mens locker room attendant
[2022-04-23 13:36] LABS: ABG BASE EXCESS 4.6 mmol/L (-2.0-2.0); ABG HCO3 39.4 mmol/L (22.0-26.0); ABG PCO2 (T) 136.5 mmHg (32.0-45.0); ALLEN'S TEST POSITIVE; FCOHb 0.7 % (0.0-3.9); FMetHb 0.4 % (0.0-1.5); RESPIRATORY RATE 28 b/min; TOTAL HEMOGLOBIN 13.9 G/dl (12.0-16.0)
--- NOTE | 2022-04-23 15:11 | NUR ---
Pearl with respiratory stated to order New ABG per protocol on patient and page respiratory.
--- NOTE | 2022-04-23 15:20 | NUR ---
Message: Ariella [phone] Lindsey Pretty, 4016 please call re: ABG Addendum: 04/23/22 at 1525 by Nilsa Benjamin RN Received orders from Dr Neville for ABG at 1600, Paged respiratory and advised.
--- NOTE | 2022-04-23 15:27 | NUR ---
Dr Neville is aware that patient is still her no bed in ICU. Per race car mechanic Josephine they still don't have a bed. Called Fouzia the Nursing supervisor beater room and she stated the room just got clean and that the ICU just got a heart patient from recovery so give them 45 min to settle that patient then call report.
--- NOTE | 2022-04-23 15:43 | NUR ---
Problems reprioritized. Patient report given, questions answered & plan of care reviewed with Felipe GOMEZ, Will page respiratory and have them come assist in transport to 2008.
--- NOTE | 2022-04-23 16:15 | NUR ---
All patients belongings 1 bag of clothes, her walker with her purse, ring was placed in top of purse. 2 plastic bracelets were also placed in top of purse. Patients medications and chart taken to CICU.
[2022-04-23 16:21] LABS: ABG BASE EXCESS 3.3 mmol/L (-2.0-2.0); ABG HCO3 37.4 mmol/L (22.0-26.0); ABG OXYGEN SATURATION 90.4 % (94-97); ABG PCO2 (T) 125.2 mmHg (32.0-45.0); ABG PO2 (T) 62.6 mmHg (75.0-100.0); ALLEN'S TEST POSITIVE; FCOHb 0.8 % (0.0-3.9); FLOW 3 L/min; FMetHb 0.3 % (0.0-1.5); FO2Hb 89.4 % (94-97); PATIENT TEMPERATURE 36.6; TOTAL HEMOGLOBIN 13.7 G/dl (12.0-16.0)
[2022-04-23] MEDS ORDERED: acetaZOLAMIDE IV 500mg inj IV ONE (16:25)
--- NOTE | 2022-04-23 16:29 | NUR ---
Pt arrived on floor at 1600. Dr. Yusuf assessed pt. Pt back on Bipap.
[2022-04-23] MEDS ORDERED: naloxone 0.4 mg/ml inj ONE (16:35)
[2022-04-23] MEDS ORDERED: WATER IV STA (16:38)
[2022-04-23] MEDS ORDERED: CAFFEINE CITRATE IV STA (16:38)
[2022-04-23] MEDS ORDERED: DEXTROSE 5% IV STA (16:38)
[2022-04-23] MEDS: progesterone, micronized 100mg capsule PO SCH (16:41)
[2022-04-23] MEDS: VANCOmycin 1250MG/NS 250ml Bag 250 ML IV SCH (16:43)
[2022-04-23 17:53] LABS: ABG BASE EXCESS 3.9 mmol/L (-2.0-2.0); ABG HCO3 37.8 mmol/L (22.0-26.0); ABG OXYGEN SATURATION 91.9 % (94-97); ABG PO2 (T) 69.3 mmHg (75.0-100.0); FCOHb 0.9 % (0.0-3.9); FMetHb 0.4 % (0.0-1.5); FO2Hb 90.7 % (94-97); RESPIRATORY RATE 28 b/min; TOTAL HEMOGLOBIN 13.9 G/dl (12.0-16.0)
[2022-04-23] MEDS ORDERED: propofol 1000mg/100ml bottle 100 ML IV ONE (18:05)
--- NOTE | 2022-04-23 18:15 | NUR ---
Patient in room CICU 2008. I have received report from Felipe GOMEZ and had the opportunity to ask questions and assume patient care.
[2022-04-23 21:28] LABS: ABG BASE EXCESS -0.6 mmol/L (-2.0-2.0); ABG HCO3 26.9 mmol/L (22.0-26.0); ABG PCO2 (T) 55.1 mmHg (32.0-45.0); ABG PO2 (T) 55.2 mmHg (75.0-100.0); ALLEN'S TEST POSITIVE; FCOHb 0.5 % (0.0-3.9); FMetHb 0.3 % (0.0-1.5); FO2Hb 90.3 % (94-97); PATIENT TEMPERATURE 36.3; PEEP 5 cm H2O; RESPIRATORY RATE 15 b/min; TIDAL VOLUME 450 mL; TOTAL HEMOGLOBIN 13.4 G/dl (12.0-16.0)
[2022-04-23] MEDS: methylPREDNISolone sod succ 125mg/2ml vial IV SCH (21:48)
[2022-04-23] MEDS ORDERED: LIDOcaine 2% 10ml TOPICAL JELLY (Urojet) TP ONE (22:25)
[2022-04-23] MEDS: propofol 1000mg/100ml bottle 100 ML IV SCH (22:33)
[2022-04-24] VITALS (26 sets, daily range): BP systolic 78–170; BP diastolic 36–93
[2022-04-24] MEDS: piperacillin/tazo 3.375gm/50ml 50 ML IV SCH ×3 (00:02→15:53)
[2022-04-24] MEDS: heparin, porcine 5000 units/ml vial SQ SCH ×3 (00:03→17:23)
--- NOTE | 2022-04-24 00:12 | NUR ---
Problems reprioritized. Patient report given, questions answered & plan of care reviewed with Jonnie GOMEZ.
[2022-04-24 02:14] LABS: ABG BASE EXCESS -0.9 mmol/L (-2.0-2.0); ABG HCO3 25.1 mmol/L (22.0-26.0); ABG OXYGEN SATURATION 94.5 % (94-97); ABG PO2 (T) 64.3 mmHg (75.0-100.0); ALLEN'S TEST POSITIVE; FCOHb 0.1 % (0.0-3.9); FMetHb 0.3 % (0.0-1.5); FO2Hb 94.1 % (94-97); PATIENT TEMPERATURE 36.1; PEEP 5 cm H2O; RESPIRATORY RATE 15 b/min; TIDAL VOLUME 450 mL
[2022-04-24] MEDS: VANCOmycin 1250MG/NS 250ml Bag 250 ML IV SCH ×2 (03:25→15:53)
[2022-04-24] MEDS: propofol 1000mg/100ml bottle 100 ML IV SCH ×3 (03:25→13:31)
[2022-04-24 03:34] LABS: BASOPHILS % (AUTO) 0.1 % (0-1); EOSINOPHILS % (AUTO) 0 % (0-6); HEMATOCRIT 36.6 % (35.0-45.0); HEMOGLOBIN 11.4 g/dl (12.0-16.0); LYMPHOCYTES # (AUTO) 0.6 X10'3 (1.1-4.8); LYMPHOCYTES % (AUTO) 7.3 % (21-51); MEAN CORPUSCULAR HEMOGLOBIN 25.2 PG (27.0-31.0); MEAN CORPUSCULAR HGB CONC 31.1 g/dL (33.0-36.5); MEAN CORPUSCULAR VOLUME 80.9 FL (78-98); MEAN PLATELET VOLUME 8.5 FL (7.4-10.4); MONOCYTES # (AUTO) 0.2 X10'3 (0-0.9); MONOCYTES % (AUTO) 1.7 % (2-12); NEUTROPHILS % (AUTO) 90.9 % (42-75); PLATELET COUNT 313 X10'3 (140-440); RED BLOOD COUNT 4.53 X10'6 (4.20-5.60); RED CELL DISTRIBUTION WIDTH 15.5 % (11.5-14.5); WHITE BLOOD COUNT 8.8 X10'3 (4.5-11.0)
[2022-04-24 03:48] LABS: ALANINE AMINOTRANSFERASE 12 U/L (12-78); ALBUMIN 2.2 G/DL (3.4-5.0); ALBUMIN/GLOBULIN RATIO 0.5 (1.1-1.5); ALKALINE PHOSPHATASE 127 IU/L (46-116); ANION GAP 9 (8-16); BILIRUBIN,TOTAL 0.4 MG/DL (0.1-1.0); BLOOD UREA NITROGEN 26 MG/DL (7-18); BUN/CREATININE RATIO 26.3 (6.6-38.0); CALCIUM 7.8 MG/DL (8.5-10.1); CHLORIDE 105 MMOL/L (99-107); CREATININE 0.99 MG/DL (0.40-0.90); GLUCOSE 123 MG/DL (70-104); SODIUM 138 MMOL/L (135-145); TOTAL CARBON DIOXIDE 23.7 MMOL/L (24-32); TOTAL PROTEIN 6.5 G/DL (6.4-8.2); eGFR 56 ML/MIN
[2022-04-24 03:49] LABS: TRIGLYCERIDES 152 MG/DL (20-135)
[2022-04-24 03:51] LABS: ASPARTATE AMINO TRANSFERASE 21 U/L (10-37); PHOSPHORUS 2.8 MG/DL (2.3-4.5); POTASSIUM 3.6 MMOL/L (3.5-5.1)
--- NOTE | 2022-04-24 05:46 | NUR ---
Patient in room CICU 2008. I have received report from Abraham GOMEZ and had the opportunity to ask questions and assume patient care. Pt resting in bed no distress noted, pt on ventilator rise and fall of chest cavity equile and symetrical, Orders reviewd
--- NOTE | 2022-04-24 06:30 | NUR ---
Patient in room CICU 2008. I have received report from JORGE RN and had the opportunity to ask questions and assume patient care.
[2022-04-24] MEDS ORDERED: medroxyprogesterone acet. 2.5mg tablet PO SCH (08:00)
[2022-04-24] MEDS: metoprolol succinate 25mg (24-HOUR) SR. Tablet PO SCH (08:00)
[2022-04-24] MEDS: nystatin 15 GM powder TP SCH ×3 (08:00→20:47)
[2022-04-24] MEDS: K and/or MAG REPLACEMENT MC SCH ×2 (08:00→20:00)
[2022-04-24] MEDS: caffeine citrate injection 60 MG in dextrose 5%-water 50ml 50 ML IV SCH ×2 (08:13→21:35)
[2022-04-24] MEDS: famotidine 20mg tablet PO SCH (08:13)
[2022-04-24] MEDS: losartan 50mg tablet PO SCH (08:14)
[2022-04-24] MEDS: furosemide 20MG tablet PO SCH (08:15)
[2022-04-24] MEDS: amLODIPine 5mg tablet PO SCH (08:15)
[2022-04-24] MEDS: fluconazole 100mg tablet PO SCH (09:06)
[2022-04-24] MEDS: ipratropium 0.5 MG/2.5ML nebule IH SCH ×4 (11:13→23:36)
--- NOTE | 2022-04-24 11:49 | NUR ---
Rounds completed with Dr Yusuf Orders to attempt extubation Diprivan off Resp placed pt on cpap mode Pt follows commands but drowsy VSS
--- NOTE | 2022-04-24 11:58 | NUR ---
Pt intubated last night DX cellulitis to BLE/abdomen/breasts and COPD per MD at rounds. Cellulitis present w/ no further wound staging per [facility] note. Pt pending extubation this AM per assembly inspector helper; eating well 75-100% initial Na-restricted meals prior to intubation w/ LBM 04/23 receiving routine colace. Will monitor for nurition intervention needs following extubation. Addendum: 04/24/22 at [address] Amended: Links added.
[2022-04-24] MEDS: progesterone, micronized 100mg capsule PO SCH (12:17)
[2022-04-24] MEDS: methylPREDNISolone sod succ 125mg/2ml vial IV SCH ×3 (12:17→15:53)
[2022-04-24] MEDS: docusate sodium 100mg/10ml UD cup PO SCH (12:17)
[2022-04-24] MEDS: acetaZOLAMIDE IV 500mg inj IV SCH (12:18)
--- NOTE | 2022-04-24 13:28 | NUR ---
Pt extubated without difficulty and placed on high flow 50 %fio2 at 30 liters sat 98 % rr 16 Lungs clear but diminshed thru out
--- NOTE | 2022-04-24 14:21 | NUR ---
Pt reposit VSS SAT 98 % on 50 %fio2 30 liter high flow rr 12 States no pain or sob Passed swallow eval popsicle given Lung sounds clear no sssssstridor noted
[2022-04-24] MEDS: levalbuterol 0.63mg/3ml nebule IH SCH ×2 (15:27→20:20)
--- NOTE | 2022-04-24 16:30 | NUR ---
Pt resting comfortably myles legs with flaky skin heels off bed Eller care given per protocal area red groins myles red and painful. wound care done to legs. abd wound and under myles breasts wound care doneVSS remains on cpap Reposit and linen done
--- NOTE | 2022-04-24 18:59 | NUR ---
Patient in room CICU 2008. I have received report from Mary GOMEZ and had the opportunity to ask questions and assume patient care.
--- NOTE | 2022-04-24 19:09 | NUR ---
Problems reprioritized. Patient report given, questions answered & plan of care reviewed with Deana RN remains 40 % fio2 30 liters santo well with sat 98 % rr 16 " denies any sob Staus unchg.
--- NOTE | 2022-04-24 19:51 | NUR ---
Problems reprioritized. Patient report given, questions answered & plan of care reviewed with Wendy GOMEZ.
[2022-04-24] MEDS: budesonide 0.5mg/2ml UD nebule IH SCH (20:21)
[2022-04-24] MEDS: morphine 2 MG/ML inj. syringe IV PRN ×2 (20:47→20:56)
--- NOTE | 2022-04-24 20:59 | NUR ---
morphine refused. waste witnessed by charge Kathryn GOMEZ
[2022-04-25 02:00] VITALS: BP 156/86
[2022-04-25] MEDS: levalbuterol 0.63mg/3ml nebule IH SCH ×4 (02:29→20:32)
[2022-04-25] MEDS: ipratropium 0.5 MG/2.5ML nebule IH SCH ×5 (02:29→20:32)
[2022-04-25] MEDS ORDERED: VANCOMYCIN LEVEL IV ONE (03:30)
[2022-04-25] MEDS: VANCOmycin 1250MG/NS 250ml Bag 250 ML IV SCH (04:00)
[2022-04-25 06:00] VITALS: BP 156/86
[2022-04-25 06:57] LABS: BASOPHILS % (AUTO) 0.1 % (0-1); EOSINOPHILS % (AUTO) 0 % (0-6); HEMATOCRIT 36.4 % (35.0-45.0); HEMOGLOBIN 11.7 g/dl (12.0-16.0); LYMPHOCYTES # (AUTO) 0.5 X10'3 (1.1-4.8); LYMPHOCYTES % (AUTO) 4.6 % (21-51); MEAN CORPUSCULAR HEMOGLOBIN 25.8 PG (27.0-31.0); MEAN CORPUSCULAR HGB CONC 32.1 g/dL (33.0-36.5); MEAN CORPUSCULAR VOLUME 80.5 FL (78-98); MEAN PLATELET VOLUME 8.5 FL (7.4-10.4); MONOCYTES # (AUTO) 0.3 X10'3 (0-0.9); MONOCYTES % (AUTO) 2.4 % (2-12); NEUTROPHILS # (AUTO) 9.9 X10'3 (1.8-7.7); NEUTROPHILS % (AUTO) 92.9 % (42-75); PLATELET COUNT 361 X10'3 (140-440); RED BLOOD COUNT 4.53 X10'6 (4.20-5.60); RED CELL DISTRIBUTION WIDTH 15.7 % (11.5-14.5); WHITE BLOOD COUNT 10.6 X10'3 (4.5-11.0)
[2022-04-25 07:00] LABS: ALANINE AMINOTRANSFERASE 11 U/L (12-78); ALBUMIN 2.7 G/DL (3.4-5.0); ALBUMIN/GLOBULIN RATIO 0.6 (1.1-1.5); ALKALINE PHOSPHATASE 119 IU/L (46-116); ANION GAP 5 (8-16); ASPARTATE AMINO TRANSFERASE 12 U/L (10-37); BILIRUBIN,TOTAL 0.2 MG/DL (0.1-1.0); BLOOD UREA NITROGEN 39 MG/DL (7-18); BUN/CREATININE RATIO 28.5 (6.6-38.0); CALCIUM 8.5 MG/DL (8.5-10.1); CHLORIDE 107 MMOL/L (99-107); CREATININE 1.37 MG/DL (0.40-0.90); GLUCOSE 136 MG/DL (70-104); MAGNESIUM 2.5 MG/DL (1.5-2.4); PHOSPHORUS 3.6 MG/DL (2.3-4.5); POTASSIUM 3.9 MMOL/L (3.5-5.1); SODIUM 141 MMOL/L (135-145); TOTAL CARBON DIOXIDE 29.2 MMOL/L (24-32); eGFR 38 ML/MIN
[2022-04-25 07:02] LABS: VANCOMYCIN,TROUGH 34.9 UG/ML (6.0-14.0)
[2022-04-25] MEDS: mineral oil/petrolatum ophthal oint EACHEYE SCH ×4 (08:00→20:00)
[2022-04-25] MEDS: K and/or MAG REPLACEMENT MC SCH ×2 (08:00→20:00)
[2022-04-25] MEDS: docusate sodium 100mg/10ml UD cup PO SCH (08:00)
[2022-04-25] MEDS: piperacillin/tazo 3.375gm/50ml 50 ML IV SCH ×4 (08:00→23:30)
[2022-04-25] MEDS: budesonide 0.5mg/2ml UD nebule IH SCH ×2 (08:25→20:31)
[2022-04-25] MEDS: methylPREDNISolone sod succ 125mg/2ml vial IV SCH ×4 (08:30→23:25)
[2022-04-25] MEDS: famotidine 20mg tablet PO SCH (08:31)
[2022-04-25] MEDS: amLODIPine 5mg tablet PO SCH (08:31)
[2022-04-25] MEDS: losartan 50mg tablet PO SCH (08:31)
[2022-04-25] MEDS: furosemide 20MG tablet PO SCH (08:31)
[2022-04-25] MEDS: fluconazole 100mg tablet PO SCH (08:32)
[2022-04-25] MEDS: heparin, porcine 5000 units/ml vial SQ SCH ×4 (08:32→23:33)
[2022-04-25] MEDS: progesterone, micronized 100mg capsule PO SCH (08:33)
[2022-04-25 11:00] VITALS: BP 156/86
[2022-04-25] MEDS: nystatin 15 GM powder TP SCH ×3 (11:17→22:46)
[2022-04-25] MEDS: metoprolol succinate 25mg (24-HOUR) SR. Tablet PO SCH (11:18)
[2022-04-25] MEDS: acetaZOLAMIDE IV 500mg inj IV SCH (11:18)
[2022-04-25] MEDS: caffeine citrate injection 60 MG in dextrose 5%-water 50ml 50 ML IV SCH (11:19)
[2022-04-25 15:00] VITALS: BP_SYST 115; BP_SYST 166; BP_DIAS 77; BP_DIAS 91
[2022-04-25] MEDS: VANCOMYCIN 750MG IV in NS 250 ML IV SCH (15:25)
[2022-04-25 18:00] VITALS: BP 166/91
--- NOTE | 2022-04-25 18:00 | NUR ---
Patient in room PCU 3021. Report given to JASON Robbins. Pt in no acute distress, VSS, answered all questions, hourly rounding completed. Wound dressings done per wound care orders; pt still on high-flow O2 satting well. MD Neville rounded, talked about possible plans for dc to facility, pt seems agreeable at this time. Spoke to pt's son Stuart, provided update, seems to think facility would be pt's best option.
--- NOTE | 2022-04-25 18:31 | NUR ---
Patient in room PCU 3021. I have received report from Laura GOMEZ and had the opportunity to ask questions and assume patient care.
[2022-04-25 22:00] VITALS: BP 149/69
--- NOTE | 2022-04-25 23:00 | NUR ---
pt is c/o pain from her face cancer and that she wants tylenol. Dr. Temple called and new orders given. frq monitoring
[2022-04-25] MEDS: acetaminophen 325mg tablet PO PRN (23:27)
[2022-04-26] MEDS: ipratropium 0.5 MG/2.5ML nebule IH SCH ×7 (00:07→22:05)
[2022-04-26 02:00] VITALS: BP 168/93
[2022-04-26] MEDS: mineral oil/petrolatum ophthal oint EACHEYE SCH ×4 (02:00→20:00)
[2022-04-26] MEDS: levalbuterol 0.63mg/3ml nebule IH SCH ×4 (03:02→19:51)
[2022-04-26] MEDS: VANCOMYCIN 750MG IV in NS 250 ML IV SCH ×2 (03:32→15:41)
[2022-04-26 06:00] VITALS: BP 168/93
--- NOTE | 2022-04-26 06:00 | NUR ---
Patient in room PCU 3021. I have received report from JASON Robbins and had the opportunity to ask questions and assume patient care.
--- NOTE | 2022-04-26 06:13 | NUR ---
Problems reprioritized. Patient report given, questions answered & plan of care reviewed with Yazmin RN.
[2022-04-26 06:15] LABS: BASOPHILS % (AUTO) 0 % (0-1); EOSINOPHILS % (AUTO) 0 % (0-6); HEMATOCRIT 36.4 % (35.0-45.0); HEMOGLOBIN 11.4 g/dl (12.0-16.0); LYMPHOCYTES # (AUTO) 0.5 X10'3 (1.1-4.8); LYMPHOCYTES % (AUTO) 5.5 % (21-51); MEAN CORPUSCULAR HEMOGLOBIN 25.6 PG (27.0-31.0); MEAN CORPUSCULAR HGB CONC 31.4 g/dL (33.0-36.5); MEAN CORPUSCULAR VOLUME 81.4 FL (78-98); MEAN PLATELET VOLUME 8.4 FL (7.4-10.4); MONOCYTES # (AUTO) 0.2 X10'3 (0-0.9); NEUTROPHILS # (AUTO) 7.6 X10'3 (1.8-7.7); NEUTROPHILS % (AUTO) 92.5 % (42-75); PLATELET COUNT 352 X10'3 (140-440); RED BLOOD COUNT 4.48 X10'6 (4.20-5.60); WHITE BLOOD COUNT 8.2 X10'3 (4.5-11.0)
[2022-04-26 06:24] LABS: ALANINE AMINOTRANSFERASE 12 U/L (12-78); ALBUMIN 2.6 G/DL (3.4-5.0); ALBUMIN/GLOBULIN RATIO 0.6 (1.1-1.5); ALKALINE PHOSPHATASE 105 IU/L (46-116); ANION GAP 8 (8-16); ASPARTATE AMINO TRANSFERASE 6 U/L (10-37); BILIRUBIN,TOTAL 0.2 MG/DL (0.1-1.0); BLOOD UREA NITROGEN 42 MG/DL (7-18); BUN/CREATININE RATIO 29.6 (6.6-38.0); CALCIUM 8.1 MG/DL (8.5-10.1); CHLORIDE 108 MMOL/L (99-107); CREATININE 1.42 MG/DL (0.40-0.90); GLUCOSE 133 MG/DL (70-104); PHOSPHORUS 3.9 MG/DL (2.3-4.5); POTASSIUM 4.2 MMOL/L (3.5-5.1); SODIUM 142 MMOL/L (135-145); TOTAL CARBON DIOXIDE 25.6 MMOL/L (24-32); TOTAL PROTEIN 6.9 G/DL (6.4-8.2); eGFR 37 ML/MIN
[2022-04-26] MEDS: docusate sodium 100mg/10ml UD cup PO SCH ×2 (08:00→09:52)
[2022-04-26] MEDS: K and/or MAG REPLACEMENT MC SCH ×2 (08:00→20:53)
[2022-04-26] MEDS: nystatin 15 GM powder TP SCH ×3 (08:00→21:00)
[2022-04-26] MEDS: budesonide 0.5mg/2ml UD nebule IH SCH ×2 (08:20→19:51)
--- NOTE | 2022-04-26 09:45 | NUR ---
Initial: Pt admit for cellulitis to BLE, bilat breast area, and anterior abdominal wall. Per wound care notes the intertrigo under breasts, abdomen, groin, and perineum is administrative and program specialist in color and there are less plaque like formations and scabbing to BLE. Pt with COPD exacerbation per physician notes. Pt on a 2 g Na restricted diet and overall eating well, documented with mostly 75-100% PO intake throughout LOS meeting estimated nutrient needs. LBM 04/23, with routine bowel care available however pt refused on 04/25 per EMR. Additional PRN bowel care is available. No nutrition intervention implemented at this time. Will continue to follow. Recommendations: 1) Continue 2 g Na restricted diet per physician 2) Routine bowel care 3) Scaled weight this admit; subsequent weekly scaled weights Addendum: 04/26/22 at [address] Amended: Links added.
[2022-04-26] MEDS: magnesium hydroxide 30ml (MOM) UD suspension PO PRN (09:50)
[2022-04-26] MEDS: acetaZOLAMIDE IV 500mg inj IV SCH (09:51)
[2022-04-26] MEDS: methylPREDNISolone sod succ 125mg/2ml vial IV SCH ×2 (09:52→15:42)
[2022-04-26] MEDS: heparin, porcine 5000 units/ml vial SQ SCH ×2 (09:53→15:43)
[2022-04-26] MEDS: famotidine 20mg tablet PO SCH (09:53)
[2022-04-26] MEDS: metoprolol succinate 25mg (24-HOUR) SR. Tablet PO SCH (09:53)
[2022-04-26] MEDS: amLODIPine 5mg tablet PO SCH (09:54)
[2022-04-26] MEDS: losartan 50mg tablet PO SCH (09:55)
[2022-04-26] MEDS: furosemide 20MG tablet PO SCH (09:55)
[2022-04-26] MEDS: fluconazole 100mg tablet PO SCH (09:55)
[2022-04-26] MEDS: piperacillin/tazo 3.375gm/50ml 50 ML IV SCH ×2 (09:55→17:24)
[2022-04-26 11:00] VITALS: BP 155/71
[2022-04-26 15:00] VITALS: BP 122/68
[2022-04-26] MEDS: acetaminophen 325mg tablet PO PRN (15:43)
[2022-04-26 18:00] VITALS: BP 135/60
--- NOTE | 2022-04-26 18:00 | NUR ---
Problems reprioritized. Patient report given, questions answered & plan of care reviewed with JASON Mcbride. Pt refused bath today; wound care provided per wound care orders. Pt on 3L NC-tolerating well. Possible plans for dc to facility vs home. Per pt, PT saw today and stated they will see her tomorrow. Pt currently in no acute distress.
--- NOTE | 2022-04-26 18:20 | NUR ---
Patient in room PCU 3021. I have received report from Laura camp and had the opportunity to ask questions and assume patient care.
[2022-04-26 22:00] VITALS: BP 142/88
[2022-04-27] MEDS: piperacillin/tazo 3.375gm/50ml 50 ML IV SCH ×3 (00:25→16:32)
[2022-04-27] MEDS: methylPREDNISolone sod succ 125mg/2ml vial IV SCH ×3 (00:25→16:32)
[2022-04-27] MEDS: heparin, porcine 5000 units/ml vial SQ SCH ×3 (01:13→16:33)
[2022-04-27 02:00] VITALS: BP 168/93
[2022-04-27] MEDS: mineral oil/petrolatum ophthal oint EACHEYE SCH ×4 (02:00→20:00)
[2022-04-27] MEDS: levalbuterol 0.63mg/3ml nebule IH SCH ×4 (02:17→20:04)
[2022-04-27] MEDS: ipratropium 0.5 MG/2.5ML nebule IH SCH ×6 (02:17→23:21)
[2022-04-27] MEDS ORDERED: VANCOMYCIN LEVEL IV ONE (03:30)
[2022-04-27] MEDS: VANCOMYCIN 750MG IV in NS 250 ML IV SCH ×2 (05:06→16:32)
[2022-04-27 05:18] LABS: PHOSPHORUS 3.3 MG/DL (2.3-4.5)
--- NOTE | 2022-04-27 05:22 | NUR ---
AGREE WITH EXTRUDER TENDER PHYSICAL ASSESSMENT CHARTED
[2022-04-27 05:38] LABS: VANCOMYCIN,TROUGH 27.5 UG/ML (6.0-14.0)
--- NOTE | 2022-04-27 06:48 | NUR ---
Patient in room PCU 3021. I have received report from Cherelle MADDEN and had the opportunity to ask questions and assume patient care.
[2022-04-27 07:00] VITALS: BP 165/92
[2022-04-27] MEDS: K and/or MAG REPLACEMENT MC SCH ×2 (08:00→20:00)
[2022-04-27] MEDS: budesonide 0.5mg/2ml UD nebule IH SCH ×2 (08:27→20:04)
[2022-04-27] MEDS: docusate sodium 100mg/10ml UD cup PO SCH (09:24)
[2022-04-27] MEDS: acetaZOLAMIDE IV 500mg inj IV SCH (09:24)
[2022-04-27] MEDS: nystatin 15 GM powder TP SCH ×3 (09:24→21:11)
[2022-04-27] MEDS: furosemide 20MG tablet PO SCH (09:25)
[2022-04-27] MEDS: fluconazole 100mg tablet PO SCH (09:26)
[2022-04-27] MEDS: famotidine 20mg tablet PO SCH (09:26)
[2022-04-27] MEDS: amLODIPine 5mg tablet PO SCH (09:26)
[2022-04-27] MEDS: losartan 50mg tablet PO SCH (09:26)
[2022-04-27] MEDS: metoprolol succinate 25mg (24-HOUR) SR. Tablet PO SCH (09:27)
[2022-04-27 11:00] VITALS: BP 160/73
[2022-04-27 14:20] LABS: BASOPHILS % (AUTO) 0.2 % (0-1); EOSINOPHILS % (AUTO) 0 % (0-6); HEMATOCRIT 38.9 % (35.0-45.0); HEMOGLOBIN 12.1 g/dl (12.0-16.0); LYMPHOCYTES # (AUTO) 0.6 X10'3 (1.1-4.8); LYMPHOCYTES % (AUTO) 6.8 % (21-51); MEAN CORPUSCULAR HEMOGLOBIN 25.5 PG (27.0-31.0); MEAN CORPUSCULAR HGB CONC 31.1 g/dL (33.0-36.5); MEAN CORPUSCULAR VOLUME 81.7 FL (78-98); MEAN PLATELET VOLUME 8.6 FL (7.4-10.4); MONOCYTES # (AUTO) 0.5 X10'3 (0-0.9); MONOCYTES % (AUTO) 6.1 % (2-12); NEUTROPHILS # (AUTO) 7.2 X10'3 (1.8-7.7); NEUTROPHILS % (AUTO) 86.9 % (42-75); PLATELET COUNT 339 X10'3 (140-440); RED BLOOD COUNT 4.76 X10'6 (4.20-5.60); RED CELL DISTRIBUTION WIDTH 16.2 % (11.5-14.5); WHITE BLOOD COUNT 8.2 X10'3 (4.5-11.0)
[2022-04-27 14:21] LABS: ALANINE AMINOTRANSFERASE 11 U/L (12-78); ALBUMIN 2.7 G/DL (3.4-5.0); ALBUMIN/GLOBULIN RATIO 0.7 (1.1-1.5); ALKALINE PHOSPHATASE 92 IU/L (46-116); ANION GAP 5 (8-16); ASPARTATE AMINO TRANSFERASE 12 U/L (10-37); BILIRUBIN,TOTAL 0.2 MG/DL (0.1-1.0); BLOOD UREA NITROGEN 43 MG/DL (7-18); BUN/CREATININE RATIO 34.1 (6.6-38.0); CALCIUM 8.1 MG/DL (8.5-10.1); CHLORIDE 109 MMOL/L (99-107); CREATININE 1.26 MG/DL (0.40-0.90); GLUCOSE 121 MG/DL (70-104); POTASSIUM 3.8 MMOL/L (3.5-5.1); SODIUM 142 MMOL/L (135-145); TOTAL CARBON DIOXIDE 27.6 MMOL/L (24-32); TOTAL PROTEIN 6.8 G/DL (6.4-8.2); eGFR 42 ML/MIN
[2022-04-27 15:00] VITALS: BP 142/72
[2022-04-27] MEDS: acetaminophen 325mg tablet PO PRN (16:53)
[2022-04-27 18:00] VITALS: BP 153/79
--- NOTE | 2022-04-27 18:23 | NUR ---
Problems reprioritized. Patient report given, questions answered & plan of care reviewed with Precious GOMEZ.
--- NOTE | 2022-04-27 21:30 | NUR ---
wound spay and saline to cleanse wounds legs breast abd and pictures taken and cream applied as ordered and nystatin power to under breasts with inner dry as ordered. wound care to legs done as ordered bilat and picture taken of scabs to the skin cancer pt had treated.beasley care done. pt has Optifoam to lower back as a wound prevention. liens changed and repositioned in bed for comfort and beasley care done.
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
[2022-04-27 22:00] VITALS: BP 157/69
[2022-04-28] MEDS: piperacillin/tazo 3.375gm/50ml 50 ML IV SCH ×3 (00:14→16:53)
[2022-04-28] MEDS: methylPREDNISolone sod succ 125mg/2ml vial IV SCH ×3 (00:14→16:39)
[2022-04-28] MEDS: heparin, porcine 5000 units/ml vial SQ SCH ×3 (00:15→16:40)
[2022-04-28 02:00] VITALS: BP 175/91
[2022-04-28] MEDS: mineral oil/petrolatum ophthal oint EACHEYE SCH ×4 (02:00→20:00)
[2022-04-28] MEDS: ipratropium 0.5 MG/2.5ML nebule IH SCH ×6 (02:30→23:20)
[2022-04-28] MEDS: levalbuterol 0.63mg/3ml nebule IH SCH ×4 (02:30→19:56)
--- NOTE | 2022-04-28 03:08 | NUR ---
pt resting eyes closed without changes at this time.
[2022-04-28 06:00] VITALS: BP 183/96
[2022-04-28 06:42] LABS: ALANINE AMINOTRANSFERASE 11 U/L (12-78); ALBUMIN 2.6 G/DL (3.4-5.0); ALBUMIN/GLOBULIN RATIO 0.6 (1.1-1.5); ALKALINE PHOSPHATASE 87 IU/L (46-116); ANION GAP 8 (8-16); ASPARTATE AMINO TRANSFERASE 12 U/L (10-37); BILIRUBIN,TOTAL 0.2 MG/DL (0.1-1.0); BLOOD UREA NITROGEN 44 MG/DL (7-18); BUN/CREATININE RATIO 34.9 (6.6-38.0); CALCIUM 8.1 MG/DL (8.5-10.1); CHLORIDE 109 MMOL/L (99-107); CREATININE 1.26 MG/DL (0.40-0.90); GLUCOSE 133 MG/DL (70-104); PHOSPHORUS 3.6 MG/DL (2.3-4.5); POTASSIUM 4.1 MMOL/L (3.5-5.1); SODIUM 141 MMOL/L (135-145); TOTAL CARBON DIOXIDE 24.3 MMOL/L (24-32); TOTAL PROTEIN 6.8 G/DL (6.4-8.2); eGFR 42 ML/MIN
--- NOTE | 2022-04-28 06:48 | NUR ---
Problems reprioritized. Patient report given, questions answered & plan of care reviewed with JASON NASH. Addendum: 04/28/22 at 0648 by Precious Burroughs RN Amended: Links added.
[2022-04-28] MEDS: budesonide 0.5mg/2ml UD nebule IH SCH ×2 (07:19→19:56)
[2022-04-28] MEDS: famotidine 20mg tablet PO SCH (08:00)
[2022-04-28] MEDS: fluconazole 100mg tablet PO SCH (08:00)
[2022-04-28] MEDS: nystatin 15 GM powder TP SCH ×3 (08:00→21:07)
[2022-04-28] MEDS: furosemide 20MG tablet PO SCH (08:00)
[2022-04-28] MEDS: metoprolol succinate 25mg (24-HOUR) SR. Tablet PO SCH (08:00)
[2022-04-28] MEDS: amLODIPine 5mg tablet PO SCH (08:00)
[2022-04-28] MEDS: docusate sodium 100mg/10ml UD cup PO SCH (08:00)
[2022-04-28] MEDS: K and/or MAG REPLACEMENT MC SCH ×2 (08:00→20:00)
[2022-04-28] MEDS: losartan 50mg tablet PO SCH (08:00)
[2022-04-28] MEDS: acetaZOLAMIDE IV 500mg inj IV SCH (09:17)
[2022-04-28 11:00] VITALS: BP 167/88
[2022-04-28 15:00] VITALS: BP 140/60
--- NOTE | 2022-04-28 15:23 | NUR ---
PAGE TO ss REGARDING IHSS WORKER 0781 [address]. pt IHSS WORKER IS HERE TO SEE MELANIE. DO WE NEED TO HAVE HIM REMOVED ? BRUNA/CASSIDY@[id number]
[2022-04-28] MEDS: VANCOMYCIN 750MG IV in NS 250 ML IV SCH (16:39)
[2022-04-28 18:00] VITALS: BP 148/73
--- NOTE | 2022-04-28 18:28 | NUR ---
Patient in room U 3021. I have received report from JASON NASH and had the opportunity to ask questions and assume patient care. Addendum: 04/28/22 at 1829 by Precious Burroughs RN Amended: Links added.
[2022-04-28] MEDS: magnesium hydroxide 30ml (MOM) UD suspension PO PRN (20:07)
[2022-04-28 22:00] VITALS: BP_SYST 131; BP_SYST 168; BP_DIAS 67; BP_DIAS 93
[2022-04-29] MEDS: mineral oil/petrolatum ophthal oint EACHEYE SCH ×4 (01:14→20:00)
[2022-04-29] MEDS: heparin, porcine 5000 units/ml vial SQ SCH ×3 (01:16→15:53)
[2022-04-29] MEDS: piperacillin/tazo 3.375gm/50ml 50 ML IV SCH ×3 (01:16→16:58)
[2022-04-29] MEDS: methylPREDNISolone sod succ 125mg/2ml vial IV SCH ×3 (01:20→15:52)
[2022-04-29 02:00] VITALS: BP_SYST 131; BP_SYST 144; BP_SYST 170; BP_DIAS 67; BP_DIAS 72; BP_DIAS 89
[2022-04-29] MEDS: ipratropium 0.5 MG/2.5ML nebule IH SCH ×6 (03:01→23:25)
[2022-04-29] MEDS: levalbuterol 0.63mg/3ml nebule IH SCH ×4 (03:01→19:55)
--- NOTE | 2022-04-29 04:31 | NUR ---
RESTING WITHOUT CHANGES.
--- NOTE | 2022-04-29 06:15 | NUR ---
Problems reprioritized. Patient report given, questions answered & plan of care reviewed with JASON HAWTHORNE. Addendum: 04/29/22 at 0616 by Precious Burroughs RN Amended: Links added.
--- NOTE | 2022-04-29 06:18 | NUR ---
Patient in room PCU 3021. I have received report from JASON Lang and had the opportunity to ask questions and assume patient care.
[2022-04-29 06:55] VITALS: BP 173/87
[2022-04-29 06:58] LABS: ALANINE AMINOTRANSFERASE 18 U/L (12-78); ALBUMIN 2.6 G/DL (3.4-5.0); ALBUMIN/GLOBULIN RATIO 0.6 (1.1-1.5); ALKALINE PHOSPHATASE 86 IU/L (46-116); ANION GAP 9 (8-16); ASPARTATE AMINO TRANSFERASE 15 U/L (10-37); BILIRUBIN,TOTAL 0.2 MG/DL (0.1-1.0); BLOOD UREA NITROGEN 47 MG/DL (7-18); BUN/CREATININE RATIO 35.3 (6.6-38.0); CALCIUM 8.2 MG/DL (8.5-10.1); CHLORIDE 110 MMOL/L (99-107); CREATININE 1.33 MG/DL (0.40-0.90); GLUCOSE 126 MG/DL (70-104); PHOSPHORUS 3.5 MG/DL (2.3-4.5); POTASSIUM 4.7 MMOL/L (3.5-5.1); SODIUM 143 MMOL/L (135-145); TOTAL PROTEIN 6.7 G/DL (6.4-8.2); eGFR 40 ML/MIN
[2022-04-29] MEDS: budesonide 0.5mg/2ml UD nebule IH SCH ×2 (07:48→19:55)
[2022-04-29] MEDS: K and/or MAG REPLACEMENT MC SCH ×2 (08:00→20:00)
[2022-04-29] MEDS: acetaZOLAMIDE IV 500mg inj IV SCH (08:03)
[2022-04-29] MEDS: docusate sodium 100mg/10ml UD cup PO SCH (08:05)
[2022-04-29] MEDS: famotidine 20mg tablet PO SCH (08:06)
[2022-04-29] MEDS: amLODIPine 5mg tablet PO SCH (08:06)
[2022-04-29] MEDS: losartan 50mg tablet PO SCH (08:06)
[2022-04-29] MEDS: furosemide 20MG tablet PO SCH (08:06)
[2022-04-29] MEDS: nystatin 15 GM powder TP SCH ×3 (08:07→21:40)
[2022-04-29] MEDS: metoprolol succinate 25mg (24-HOUR) SR. Tablet PO SCH (08:10)
[2022-04-29] MEDS: fluconazole 100mg tablet PO SCH (08:13)
--- NOTE | 2022-04-29 09:29 | NUR ---
[facility] Marsha at bedside.
[2022-04-29 12:10] VITALS: BP 149/81
[2022-04-29] MEDS: acetaminophen 325mg tablet PO PRN (13:27)
[2022-04-29 15:00] VITALS: BP 130/76
[2022-04-29] MEDS ORDERED: VANCOMYCIN LEVEL IV ONE (15:30)
[2022-04-29] MEDS: VANCOMYCIN 750MG IV in NS 250 ML IV SCH (15:52)
[2022-04-29 18:00] VITALS: BP 140/64
--- NOTE | 2022-04-29 18:22 | NUR ---
Problems reprioritized. Patient report given, questions answered & plan of care reviewed with MARYANNE Villafuerte.
--- NOTE | 2022-04-29 18:30 | NUR ---
Patient in room PCU 3021. I have received report from cinthia and had the opportunity to ask questions and assume patient care.
[2022-04-29 22:00] VITALS: BP 152/78
[2022-04-30] MEDS: methylPREDNISolone sod succ 125mg/2ml vial IV SCH ×2 (00:25→07:42)
[2022-04-30] MEDS: piperacillin/tazo 3.375gm/50ml 50 ML IV SCH ×4 (00:26→23:59)
[2022-04-30 02:00] VITALS: BP 158/79
[2022-04-30] MEDS: mineral oil/petrolatum ophthal oint EACHEYE SCH ×4 (02:00→20:00)
[2022-04-30] MEDS: levalbuterol 0.63mg/3ml nebule IH SCH ×4 (03:13→21:50)
[2022-04-30] MEDS: ipratropium 0.5 MG/2.5ML nebule IH SCH ×6 (03:14→21:50)
--- NOTE | 2022-04-30 06:08 | NUR ---
Problems reprioritized. Patient report given, questions answered & plan of care reviewed with cinthia.
--- NOTE | 2022-04-30 06:08 | NUR ---
Patient in room PCU 3021. I have received report from MARYANNE Villafuerte and had the opportunity to ask questions and assume patient care.
[2022-04-30] MEDS: budesonide 0.5mg/2ml UD nebule IH SCH ×2 (07:06→19:13)
[2022-04-30 07:15] LABS: ALANINE AMINOTRANSFERASE 22 U/L (12-78); ALBUMIN 2.6 G/DL (3.4-5.0); ALBUMIN/GLOBULIN RATIO 0.7 (1.1-1.5); ALKALINE PHOSPHATASE 81 IU/L (46-116); ANION GAP 13 (8-16); ASPARTATE AMINO TRANSFERASE 14 U/L (10-37); BILIRUBIN,TOTAL 0.2 MG/DL (0.1-1.0); BLOOD UREA NITROGEN 48 MG/DL (7-18); CALCIUM 8.1 MG/DL (8.5-10.1); CHLORIDE 108 MMOL/L (99-107); CREATININE 1.23 MG/DL (0.40-0.90); GLUCOSE 121 MG/DL (70-104); POTASSIUM 4.5 MMOL/L (3.5-5.1); SODIUM 146 MMOL/L (135-145); TOTAL CARBON DIOXIDE 25.3 MMOL/L (24-32); TOTAL PROTEIN 6.6 G/DL (6.4-8.2); eGFR 44 ML/MIN
[2022-04-30 07:29] VITALS: BP 160/87
[2022-04-30] MEDS: acetaZOLAMIDE IV 500mg inj IV SCH (07:39)
[2022-04-30] MEDS: amLODIPine 5mg tablet PO SCH (07:40)
[2022-04-30] MEDS: metoprolol succinate 25mg (24-HOUR) SR. Tablet PO SCH (07:40)
[2022-04-30] MEDS: losartan 50mg tablet PO SCH (07:41)
[2022-04-30] MEDS: docusate sodium 100mg/10ml UD cup PO SCH (07:41)
[2022-04-30] MEDS: furosemide 20MG tablet PO SCH (07:41)
[2022-04-30] MEDS: famotidine 20mg tablet PO SCH (07:41)
[2022-04-30] MEDS: fluconazole 100mg tablet PO SCH (07:42)
[2022-04-30] MEDS: heparin, porcine 5000 units/ml vial SQ SCH ×3 (07:42→15:11)
[2022-04-30] MEDS: nystatin 15 GM powder TP SCH ×3 (07:52→21:00)
[2022-04-30] MEDS: K and/or MAG REPLACEMENT MC SCH ×2 (08:00→20:41)
--- NOTE | 2022-04-30 10:36 | NUR ---
Reassessment: Pt continues eating well, documented with mostly 75-100% PO intake meeting estimated nutrient needs. LBM 04/30 per I&O. No nutrition intervention implemented at this time. Will continue to follow. Recommendations: 1) Continue 2 g Na restricted diet per physician 2) Routine bowel care 3) Scaled weight this admit; subsequent weekly scaled weights Addendum: 04/30/22 at [address] Amended: Links added.
[2022-04-30 11:56] VITALS: BP 149/73
[2022-04-30 15:00] VITALS: BP 162/87
[2022-04-30] MEDS: VANCOMYCIN 750MG IV in NS 250 ML IV SCH (15:09)
[2022-04-30] MEDS: methylPREDNISolone sod succ/PF 40mg inj. IV SCH ×2 (15:11→23:59)
[2022-04-30] MEDS: acetaminophen 325mg tablet PO PRN (15:18)
[2022-04-30 18:00] VITALS: BP 162/87
--- NOTE | 2022-04-30 18:09 | NUR ---
Problems reprioritized. Patient report given, questions answered & plan of care reviewed with MARYANNE Coyle.
--- NOTE | 2022-04-30 18:10 | NUR ---
Patient in room PCU 3021. I have received report from Kathleen GOMEZ and had the opportunity to ask questions and assume patient care.
[2022-04-30 22:00] VITALS: BP 148/71
[2022-05-01] MEDS: heparin, porcine 5000 units/ml vial SQ SCH ×3 (00:10→15:31)
[2022-05-01 02:00] VITALS: BP 179/81
[2022-05-01] MEDS: mineral oil/petrolatum ophthal oint EACHEYE SCH ×4 (02:00→20:00)
[2022-05-01] MEDS: levalbuterol 0.63mg/3ml nebule IH SCH ×4 (02:44→22:41)
[2022-05-01] MEDS: ipratropium 0.5 MG/2.5ML nebule IH SCH ×6 (02:44→22:41)
--- NOTE | 2022-05-01 02:57 | NUR ---
Reviewed OIL PIPELINE DISPATCHER charting and in agreement, continues antibiotic treatment for on-going cellulitis to R breast, lower extremity cellulitis is resolved. Has been afebrile vital signs stable.
--- NOTE | 2022-05-01 06:04 | NUR ---
Patient in room PCU 3021. I have received report from Kathleen GOMEZ and had the opportunity to ask questions and assume patient care.
--- NOTE | 2022-05-01 06:17 | NUR ---
Patient in room U 3021. I have received report from JASON Coyle and had the opportunity to ask questions and assume patient care. Addendum: 05/01/22 at 0619 by Rae Valladaers LVN Problems reprioritized. Patient report given, questions answered & plan of care reviewed with Kathleen GOMEZ.
--- NOTE | 2022-05-01 06:42 | NUR ---
Notified by telecom assistant patient's HR went down to 29. Went to assess patient, pct was already in room, patient stated she was sleeping and no complaints. Denies any chest pain, dizziness or light headedness. HR now at 60. Will continue to monitor.
[2022-05-01 07:04] VITALS: BP 155/72
[2022-05-01] MEDS: budesonide 0.5mg/2ml UD nebule IH SCH ×2 (07:57→19:28)
--- NOTE | 2022-05-01 07:59 | NUR ---
Message: [email or web address]- Angelica Pretty- pt HR was 29 went to check on pt & she was sleeping. denies any symptoms. pt current HR 57-61. BP was 155/72, 93RA, 18. Gets Cozzar 100mg, Lasix 20mg. Norvasc 10, metoprolol 200mg. ok to hold or give? - Kathleen Cano41
[2022-05-01] MEDS: metoprolol succinate 25mg (24-HOUR) SR. Tablet PO SCH (08:00)
[2022-05-01] MEDS: K and/or MAG REPLACEMENT MC SCH ×2 (08:00→20:00)
[2022-05-01] MEDS: famotidine 20mg tablet PO SCH (08:08)
[2022-05-01] MEDS: piperacillin/tazo 3.375gm/50ml 50 ML IV SCH ×2 (08:08→15:33)
[2022-05-01] MEDS: docusate sodium 100mg/10ml UD cup PO SCH (08:09)
[2022-05-01] MEDS: methylPREDNISolone sod succ/PF 40mg inj. IV SCH ×2 (08:09→15:31)
[2022-05-01] MEDS: nystatin 15 GM powder TP SCH ×3 (08:17→21:00)
--- NOTE | 2022-05-01 09:06 | NUR ---
Message: [id number]- Maria De Jesus, Angelica- pt HR was 29 this AM but is now 65. No complaints. Ok to cont routine BP meds? Thank you- Kathleen Reina
[2022-05-01] MEDS: furosemide 20MG tablet PO SCH (09:40)
[2022-05-01] MEDS: acetaZOLAMIDE IV 500mg inj IV SCH (09:44)
[2022-05-01] MEDS: fluconazole 100mg tablet PO SCH (09:46)
[2022-05-01 09:50] LABS: ALANINE AMINOTRANSFERASE 34 U/L (12-78); ALBUMIN 2.4 G/DL (3.4-5.0); ALBUMIN/GLOBULIN RATIO 0.6 (1.1-1.5); ALKALINE PHOSPHATASE 75 IU/L (46-116); ANION GAP 10 (8-16); ASPARTATE AMINO TRANSFERASE 18 U/L (10-37); BILIRUBIN,TOTAL 0.2 MG/DL (0.1-1.0); BLOOD UREA NITROGEN 45 MG/DL (7-18); BUN/CREATININE RATIO 36.6 (6.6-38.0); CHLORIDE 108 MMOL/L (99-107); CREATININE 1.23 MG/DL (0.40-0.90); GLUCOSE 185 MG/DL (70-104); POTASSIUM 3.9 MMOL/L (3.5-5.1); SODIUM 142 MMOL/L (135-145); TOTAL CARBON DIOXIDE 23.8 MMOL/L (24-32); TOTAL PROTEIN 6.1 G/DL (6.4-8.2); eGFR 44 ML/MIN
[2022-05-01] MEDS: amLODIPine 5mg tablet PO SCH (09:51)
[2022-05-01] MEDS: losartan 50mg tablet PO SCH (09:52)
[2022-05-01] MEDS: acetaminophen 325mg tablet PO PRN ×2 (11:11→17:27)
[2022-05-01 11:31] VITALS: BP 156/91
--- NOTE | 2022-05-01 12:22 | NUR ---
Dr. Neville aware of patient's HR being 29 this morning. States patient "has had it many times and she refuses to have a pacemaker." No new orders. Will continue to monitor.
[2022-05-01 15:53] VITALS: BP 136/69
[2022-05-01] MEDS: VANCOMYCIN 750MG IV in NS 250 ML IV SCH (17:32)
[2022-05-01 18:00] VITALS: BP 148/66
--- NOTE | 2022-05-01 18:15 | NUR ---
Patient in room PCU 3021. I have received report from cinthia and had the opportunity to ask questions and assume patient care.
--- NOTE | 2022-05-01 18:23 | NUR ---
Problems reprioritized. Patient report given, questions answered & plan of care reviewed with JASON Hamlin.
[2022-05-01 22:00] VITALS: BP 152/65
[2022-05-02] MEDS: methylPREDNISolone sod succ/PF 40mg inj. IV SCH ×3 (00:02→17:14)
[2022-05-02] MEDS: piperacillin/tazo 3.375gm/50ml 50 ML IV SCH ×4 (00:02→18:54)
[2022-05-02] MEDS: heparin, porcine 5000 units/ml vial SQ SCH ×3 (00:03→17:12)
[2022-05-02 02:00] VITALS: BP 150/66
[2022-05-02] MEDS: mineral oil/petrolatum ophthal oint EACHEYE SCH ×4 (02:00→20:00)
[2022-05-02] MEDS: levalbuterol 0.63mg/3ml nebule IH SCH ×5 (03:15→20:57)
[2022-05-02] MEDS: ipratropium 0.5 MG/2.5ML nebule IH SCH ×4 (03:15→15:56)
--- NOTE | 2022-05-02 03:42 | NUR ---
REVIEWED CASING FINISHER AND STUFFER ASSESSMENT AND IN AGREEMENT.
--- NOTE | 2022-05-02 06:18 | NUR ---
Problems reprioritized. Patient report given, questions answered & plan of care reviewed with Riana GOMEZ.
[2022-05-02 07:22] VITALS: BP 148/76
[2022-05-02 07:44] LABS: ALANINE AMINOTRANSFERASE 33 U/L (12-78); ALBUMIN 2.7 G/DL (3.4-5.0); ALBUMIN/GLOBULIN RATIO 0.7 (1.1-1.5); ALKALINE PHOSPHATASE 77 IU/L (46-116); ANION GAP 10 (8-16); ASPARTATE AMINO TRANSFERASE 17 U/L (10-37); BILIRUBIN,TOTAL 0.3 MG/DL (0.1-1.0); BLOOD UREA NITROGEN 42 MG/DL (7-18); BUN/CREATININE RATIO 35.6 (6.6-38.0); CALCIUM 7.9 MG/DL (8.5-10.1); CHLORIDE 110 MMOL/L (99-107); CREATININE 1.18 MG/DL (0.40-0.90); GLUCOSE 113 MG/DL (70-104); POTASSIUM 4.5 MMOL/L (3.5-5.1); SODIUM 143 MMOL/L (135-145); TOTAL CARBON DIOXIDE 23.5 MMOL/L (24-32); TOTAL PROTEIN 6.4 G/DL (6.4-8.2); eGFR 46 ML/MIN
[2022-05-02] MEDS: nystatin 15 GM powder TP SCH ×3 (08:00→20:37)
[2022-05-02] MEDS: metoprolol succinate 25mg (24-HOUR) SR. Tablet PO SCH (08:00)
[2022-05-02] MEDS: losartan 50mg tablet PO SCH (08:00)
[2022-05-02] MEDS: amLODIPine 5mg tablet PO SCH (08:00)
[2022-05-02] MEDS: K and/or MAG REPLACEMENT MC SCH ×2 (08:00→20:00)
[2022-05-02] MEDS: famotidine 20mg tablet PO SCH (08:00)
[2022-05-02] MEDS: docusate sodium 100mg/10ml UD cup PO SCH (08:00)
[2022-05-02] MEDS: acetaZOLAMIDE IV 500mg inj IV SCH (08:00)
[2022-05-02] MEDS: fluconazole 100mg tablet PO SCH (08:00)
[2022-05-02] MEDS: furosemide 20MG tablet PO SCH (08:00)
[2022-05-02] MEDS: budesonide 0.5mg/2ml UD nebule IH SCH ×2 (08:35→20:57)
--- NOTE | 2022-05-02 09:03 | NUR ---
Medications scanned and verified but was not saved in emar for some reason.
[2022-05-02 11:00] VITALS: BP 140/75
[2022-05-02 15:00] VITALS: BP 139/69
[2022-05-02] MEDS: VANCOMYCIN 750MG IV in NS 250 ML IV SCH (17:19)
--- NOTE | 2022-05-02 17:27 | NUR ---
Pt. only has one line and it takes a PICC RN to place PIV. Vanco administered first since shorter admin time. Notified pharmacy that Zosyn would be admin late. Pharmacist states ok to give Zosyn dose by 7pm. If later please call pharmacist.
[2022-05-02 18:00] VITALS: BP 162/70
--- NOTE | 2022-05-02 18:29 | NUR ---
Gave report to Lina GOMEZ. Addendum: 05/02/22 at 1832 by Mary Hardy RN Gave report to Jeanette GOMEZ
[2022-05-02] MEDS: ipratropium 0.5 MG/2.5ML nebule NEB SCH (20:57)
[2022-05-02 22:00] VITALS: BP 94/36
[2022-05-03] MEDS: methylPREDNISolone sod succ/PF 40mg inj. IV SCH ×4 (01:22→16:31)
[2022-05-03] MEDS: heparin, porcine 5000 units/ml vial SQ SCH ×2 (01:23→08:00)
[2022-05-03] MEDS: piperacillin/tazo 3.375gm/50ml 50 ML IV SCH ×3 (01:36→15:39)
[2022-05-03 02:00] VITALS: BP 162/70
[2022-05-03] MEDS: mineral oil/petrolatum ophthal oint EACHEYE SCH ×4 (02:00→20:00)
[2022-05-03] MEDS: ipratropium 0.5 MG/2.5ML nebule NEB SCH ×4 (02:55→20:49)
[2022-05-03] MEDS: levalbuterol 0.63mg/3ml nebule IH SCH ×4 (02:55→20:49)
[2022-05-03 06:00] VITALS: BP 156/72
[2022-05-03] MEDS: budesonide 0.5mg/2ml UD nebule IH SCH ×2 (07:08→20:49)
[2022-05-03] MEDS: docusate sodium 100mg/10ml UD cup PO SCH (08:00)
[2022-05-03] MEDS: acetaZOLAMIDE IV 500mg inj IV SCH (08:45)
[2022-05-03] MEDS: fluconazole 100mg tablet PO SCH (08:47)
[2022-05-03] MEDS: nystatin 15 GM powder TP SCH ×3 (08:48→21:00)
[2022-05-03] MEDS: metoprolol succinate 25mg (24-HOUR) SR. Tablet PO SCH (08:49)
[2022-05-03] MEDS: amLODIPine 5mg tablet PO SCH (08:50)
[2022-05-03] MEDS: losartan 50mg tablet PO SCH (08:50)
[2022-05-03] MEDS: famotidine 20mg tablet PO SCH (08:50)
[2022-05-03] MEDS: furosemide 20MG tablet PO SCH (08:50)
[2022-05-03 11:00] VITALS: BP 168/81
[2022-05-03] MEDS: acetaminophen 325mg tablet PO PRN (11:22)
[2022-05-03 15:00] VITALS: BP 130/70
[2022-05-03] MEDS: VANCOMYCIN 750MG IV in NS 250 ML IV SCH (15:39)
--- NOTE | 2022-05-03 16:25 | NUR ---
Paged Dr. Blackwell regarding pt not having labs done for a week. PAGER ID: [phone] MESSAGE: [phone], Maria De Jesus Paredes. Pt has not has labs done for a week. I forgot to talk to you about it this morning. I need to give heparin subcut but there is no current platelet count. Mary U 3908.
[2022-05-03 18:00] VITALS: BP 146/74
--- NOTE | 2022-05-03 18:19 | NUR ---
Problems reprioritized. Patient report given, questions answered & plan of care reviewed with Jessica GMOEZ, patient stable at transfer of care.
[2022-05-03] MEDS: K and/or MAG REPLACEMENT MC SCH (20:00)
--- NOTE | 2022-05-03 20:00 | NUR ---
Patient refused Lacri-lube S.O.P opthalmic ointment 0.25. Patient stated that she does not need it for her eyes.
[2022-05-03 22:00] VITALS: BP 164/79
[2022-05-04] MEDS: mineral oil/petrolatum ophthal oint EACHEYE SCH (01:55)
[2022-05-04 02:00] VITALS: BP 147/85
[2022-05-04] MEDS: ipratropium 0.5 MG/2.5ML nebule NEB SCH ×4 (02:43→21:12)
[2022-05-04] MEDS: levalbuterol 0.63mg/3ml nebule IH SCH ×4 (02:43→21:12)
[2022-05-04 06:00] VITALS: BP 136/63
--- NOTE | 2022-05-04 06:20 | NUR ---
Patient in room PCU 3021. I have received report from JASON Lopez and had the opportunity to ask questions and assume patient care.
[2022-05-04] MEDS: heparin, porcine 5000 units/ml vial SQ SCH ×5 (06:58→23:59)
[2022-05-04 07:26] LABS: BASOPHILS % (AUTO) 0.1 % (0-1); EOSINOPHILS % (AUTO) 0 % (0-6); HEMATOCRIT 39.6 % (35.0-45.0); HEMOGLOBIN 12.6 g/dl (12.0-16.0); LYMPHOCYTES # (AUTO) 1.3 X10'3 (1.1-4.8); LYMPHOCYTES % (AUTO) 14.2 % (21-51); MEAN CORPUSCULAR HEMOGLOBIN 25.8 PG (27.0-31.0); MEAN CORPUSCULAR HGB CONC 31.9 g/dL (33.0-36.5); MEAN CORPUSCULAR VOLUME 80.9 FL (78-98); MEAN PLATELET VOLUME 8.6 FL (7.4-10.4); MONOCYTES # (AUTO) 0.7 X10'3 (0-0.9); MONOCYTES % (AUTO) 7.9 % (2-12); NEUTROPHILS # (AUTO) 7.3 X10'3 (1.8-7.7); NEUTROPHILS % (AUTO) 77.8 % (42-75); PLATELET COUNT 271 X10'3 (140-440); RED CELL DISTRIBUTION WIDTH 16.9 % (11.5-14.5); WHITE BLOOD COUNT 9.4 X10'3 (4.5-11.0)
[2022-05-04 07:43] LABS: ALANINE AMINOTRANSFERASE 26 U/L (12-78); ALBUMIN 2.6 G/DL (3.4-5.0); ALBUMIN/GLOBULIN RATIO 0.7 (1.1-1.5); ALKALINE PHOSPHATASE 71 IU/L (46-116); ANION GAP 9 (8-16); ASPARTATE AMINO TRANSFERASE 17 U/L (10-37); BILIRUBIN,TOTAL 0.3 MG/DL (0.1-1.0); BLOOD UREA NITROGEN 43 MG/DL (7-18); BUN/CREATININE RATIO 42.2 (6.6-38.0); CALCIUM 8.1 MG/DL (8.5-10.1); CHLORIDE 113 MMOL/L (99-107); CREATININE 1.02 MG/DL (0.40-0.90); GLUCOSE 89 MG/DL (70-104); POTASSIUM 4.3 MMOL/L (3.5-5.1); SODIUM 144 MMOL/L (135-145); TOTAL CARBON DIOXIDE 22.3 MMOL/L (24-32); TOTAL PROTEIN 6.2 G/DL (6.4-8.2); eGFR 54 ML/MIN
[2022-05-04] MEDS: budesonide 0.5mg/2ml UD nebule IH SCH ×2 (07:57→21:12)
[2022-05-04] MEDS: K and/or MAG REPLACEMENT MC SCH ×2 (08:00→20:00)
[2022-05-04 10:00] VITALS: BP 135/65
[2022-05-04] MEDS: docusate sodium 100mg/10ml UD cup PO SCH (11:50)
[2022-05-04] MEDS: acetaminophen 325mg tablet PO PRN ×2 (11:52→18:15)
[2022-05-04] MEDS: metoprolol succinate 25mg (24-HOUR) SR. Tablet PO SCH (11:53)
[2022-05-04] MEDS: losartan 50mg tablet PO SCH (11:53)
[2022-05-04] MEDS: fluconazole 100mg tablet PO SCH (11:53)
[2022-05-04] MEDS: famotidine 20mg tablet PO SCH (11:53)
[2022-05-04] MEDS: amLODIPine 5mg tablet PO SCH (11:53)
[2022-05-04] MEDS: methylPREDNISolone sod succ/PF 40mg inj. IV SCH ×2 (11:54→21:04)
[2022-05-04] MEDS: nystatin 15 GM powder TP SCH ×2 (11:55→21:04)
[2022-05-04 15:00] VITALS: BP 137/66
[2022-05-04] MEDS ORDERED: famotidine 20mg tablet PO SCH (16:24)
[2022-05-04 18:00] VITALS: BP 146/74
--- NOTE | 2022-05-04 18:40 | NUR ---
Problems reprioritized. Patient report given, questions answered & plan of care reviewed with JASON Arias.
[2022-05-04 22:00] VITALS: BP 159/79
[2022-05-05 02:00] VITALS: BP 161/77
[2022-05-05] MEDS: levalbuterol 0.63mg/3ml nebule IH SCH ×2 (02:58→09:38)
--- NOTE | 2022-05-05 06:32 | NUR ---
Problems reprioritized. Patient report given, questions answered & plan of care reviewed with JASON kellogg.
--- NOTE | 2022-05-05 07:03 | NUR ---
Patient in room PCU 3021. I have received report from JASON Arias and had the opportunity to ask questions and assume patient care.
[2022-05-05] MEDS: K and/or MAG REPLACEMENT MC SCH (08:00)
[2022-05-05] MEDS: methylPREDNISolone sod succ/PF 40mg inj. IV SCH (08:52)
[2022-05-05] MEDS: heparin, porcine 5000 units/ml vial SQ SCH (08:52)
[2022-05-05] MEDS: metoprolol succinate 25mg (24-HOUR) SR. Tablet PO SCH (08:53)
[2022-05-05] MEDS: losartan 50mg tablet PO SCH (08:54)
[2022-05-05] MEDS: amLODIPine 5mg tablet PO SCH (08:54)
[2022-05-05] MEDS: fluconazole 100mg tablet PO SCH (08:54)
[2022-05-05] MEDS: docusate sodium 100mg/10ml UD cup PO SCH ×2 (08:55→09:05)
[2022-05-05] MEDS: nystatin 15 GM powder TP SCH (08:55)
--- NOTE | 2022-05-05 09:12 | NUR ---
Reassessment: Pt continues eating well, documented with mostly 75-100% PO intake meeting estimated nutrient needs. LBM 05/04 per I&O. No nutrition intervention implemented at this time. Will continue to follow. Recommendations: 1) Continue 2 g Na restricted diet per physician 2) Routine bowel care 3) Scaled weight this admit; subsequent weekly scaled weights Addendum: 05/05/22 at [address] Amended: Links added.
[2022-05-05] MEDS: budesonide 0.5mg/2ml UD nebule IH SCH (09:38)
[2022-05-05] MEDS: ipratropium 0.5 MG/2.5ML nebule NEB SCH (09:39)
[2022-05-05] MEDS ORDERED: NOR5T PO (11:01)
[2022-05-05] MEDS ORDERED: FLUC100T40 PO (11:01)
[2022-05-05] MEDS ORDERED: METO50TA7 PO (11:01)
[2022-05-05] MEDS ORDERED: PRED20TA PO (11:01)
[2022-05-05 11:43] VITALS: BP 188/73
--- NOTE | 2022-05-05 12:46 | NUR ---
12:38 called VANESSA Davidson , , left message to call back to arrange ride for discharge home. 12:40 called 2nd number , , for Stuart, no voice mail available. 12:41 called Grey with [employer],[phone], left message re: attempt to arrange ride for discharge. Addendum: 05/05/22 at 1347 by Madison Escobar RN 13:43 called VANESSA Davidson, , left message to call back to arrange ride for discharge home. 1345 12:40 called 2nd number , , for Stuart, no voice mail available. 1345 called Grey with [employer],[phone], left message re: attempt to arrange ride for discharge. Addendum: 05/05/22 at 1357 by Madison Escobar RN mali Davidson, returned call, will lemon picker pt at 15:30.
--- NOTE | 2022-05-05 13:57 | NUR ---
Stuart called back, will pick pulling machine tender pt at 15:30.
--- NOTE | 2022-05-08 09:33 | NUR ---
Case Management DC follow up:Unable to contact Patient via telephone, nor leave message for lack of VM.
== END 2022-05-05 15:47 | disposition home health service (06) | DRG 383 ==
LOC: ER 10:25 → ED HOLD 21:48 → EDBEDREQ 04-22 01:02 → ORTHO 4S 04-22 02:22 → CICU 2S 04-23 15:48 → PCU 3S 04-24 20:10
PROVIDERS: ADMIT Internal Medicine; ATTEND Hospitalist
PROC: 5A1935Z Respiratory Ventilation, Less than 24 Consecutive Hours (ICD-10-PCS; principal; 2022-04-23)
PROC: 0BH17EZ Insertion of Endotracheal Airway into Trachea, Via Natural or Artificial Opening (ICD-10-PCS; 2022-04-23)
PROC: 5A09357 Assistance with Respiratory Ventilation, Less than 24 Consecutive Hours, Continuous Positive Airway Pressure (ICD-10-PCS; 2022-04-23)
PROC: 02HV33Z Insertion of Infusion Device into Superior Vena Cava, Percutaneous Approach (ICD-10-PCS; 2022-04-23)
PROC: 03HY32Z Insertion of Monitoring Device into Upper Artery, Percutaneous Approach (ICD-10-PCS; 2022-04-23)
PROC: 4A133B1 Monitoring of Arterial Pressure, Peripheral, Percutaneous Approach (ICD-10-PCS; 2022-04-23)
PROC: 4A133J1 Monitoring of Arterial Pulse, Peripheral, Percutaneous Approach (ICD-10-PCS; 2022-04-23)
PROC: 5A09357 Assistance with Respiratory Ventilation, Less than 24 Consecutive Hours, Continuous Positive Airway Pressure (ICD-10-PCS; 2022-04-24)
PROC: 5A0935A Assistance with Respiratory Ventilation, Less than 24 Consecutive Hours, High Flow/Velocity Cannula (ICD-10-PCS; 2022-04-24)
PROC: 5A0935A Assistance with Respiratory Ventilation, Less than 24 Consecutive Hours, High Flow/Velocity Cannula (ICD-10-PCS; 2022-04-25)
DX: L03.115 Cellulitis of right lower limb (principal); J96.02 Acute respiratory failure with hypercapnia; G93.41 Metabolic encephalopathy; E87.3 Alkalosis; E87.2 Acidosis; I50.32 Chronic diastolic (congestive) heart failure; I13.0 Hypertensive heart and chronic kidney disease with heart failure and stage 1 through stage 4 chronic kidney disease, or unspecified chronic kidney disease; I48.20 Chronic atrial fibrillation, unspecified; E66.01 Morbid (severe) obesity due to excess calories; L03.116 Cellulitis of left lower limb; Z20.822 Contact with and (suspected) exposure to COVID-19; Z60.2 Problems related to living alone; D64.9 Anemia, unspecified; F20.9 Schizophrenia, unspecified; N18.30 Chronic kidney disease, stage 3 unspecified; N61.0 Mastitis without abscess; R00.1 Bradycardia, unspecified; I89.0 Lymphedema, not elsewhere classified; J43.9 Emphysema, unspecified; K43.9 Ventral hernia without obstruction or gangrene; L03.311 Cellulitis of abdominal wall; L30.4 Erythema intertrigo; Z86.711 Personal history of pulmonary embolism; Z86.73 Personal history of transient ischemic attack (TIA), and cerebral infarction without residual deficits; Z88.8 Allergy status to other drugs, medicaments and biological substances; Z68.38 Body mass index [BMI] 38.0-38.9, adult; Z79.899 Other long term (current) drug therapy; Z91.19 Patient's noncompliance with other medical treatment and regimen
CPT/HCPCS: 36410; 36415; 36600; 71045; 80053; 80202; 82542; 82803; 82948; 83605; 83735; 84100; 84145; 84478; 85018; 85025; 87040; 87081; 87635; 94002; 94003; 94640; 94660; 94760; 94799; 96365; 96366; 96368; 97110; 97116; 97161; 97530; 99285; A4333; A4615; A6213; A6250; A6253; A6258; A6402; A6446; A6449; A7015; C1751; C1758; C9803; G0378; J0295; J0706; J1120; J1644; J2270; J2310; J2543; J2704; J2920; J2930; J3370; J7030; J7040; J7050; J7060; J7614

== ENCOUNTER 2022-05-19 16:07 | Emergency (ER) | payer MEDICAID ==
[~2022-05-19] VITALS: Ht 165.1 cm; Wt 100.0 kg
[~2022-05-19 16:07] MED LIST changes: -ALBU18HF2 IH; +ALBU18HF2 INH; -AZIT500T9 PO; +FLUC100T40 PO; -FLUC100T64 PO; -FURO-150 PO; +LOSA100T57 PO; -LOSA50TA64 PO; -METO-395 PO; +METO50TA7 PO; +PRED20TA PO
[2022-05-19 16:50] LABS: BASOPHILS # (AUTO) 0.1 X10'3 (0-0.2); BASOPHILS % (AUTO) 0.6 % (0-1); EOSINOPHILS # (AUTO) 0.1 X10'3 (0-0.9); HEMATOCRIT 35.2 % (35.0-45.0); HEMOGLOBIN 11.4 g/dl (12.0-16.0); LYMPHOCYTES # (AUTO) 0.8 X10'3 (1.1-4.8); LYMPHOCYTES % (AUTO) 8.7 % (21-51); MEAN CORPUSCULAR HEMOGLOBIN 26.2 PG (27.0-31.0); MEAN CORPUSCULAR HGB CONC 32.4 g/dL (33.0-36.5); MEAN CORPUSCULAR VOLUME 80.7 FL (78-98); MEAN PLATELET VOLUME 7.9 FL (7.4-10.4); MONOCYTES # (AUTO) 0.7 X10'3 (0-0.9); MONOCYTES % (AUTO) 7.7 % (2-12); NEUTROPHILS # (AUTO) 7.5 X10'3 (1.8-7.7); PLATELET COUNT 406 X10'3 (140-440); RED BLOOD COUNT 4.36 X10'6 (4.20-5.60); RED CELL DISTRIBUTION WIDTH 17.4 % (11.5-14.5); WHITE BLOOD COUNT 9.2 X10'3 (4.5-11.0)
[2022-05-19 17:16] LABS: ALANINE AMINOTRANSFERASE 17 U/L (12-78); ALBUMIN 2.6 G/DL (3.4-5.0); ALBUMIN/GLOBULIN RATIO 0.6 (1.1-1.5); ALKALINE PHOSPHATASE 112 IU/L (46-116); ANION GAP 11 (8-16); ASPARTATE AMINO TRANSFERASE 11 U/L (10-37); BILIRUBIN,TOTAL 0.2 MG/DL (0.1-1.0); BLOOD UREA NITROGEN 23 MG/DL (7-18); BUN/CREATININE RATIO 16.1 (6.6-38.0); CALCIUM 8.7 MG/DL (8.5-10.1); CHLORIDE 108 MMOL/L (99-107); CREATININE 1.43 MG/DL (0.40-0.90); GLUCOSE 96 MG/DL (70-104); POTASSIUM 3.9 MMOL/L (3.5-5.1); SODIUM 144 MMOL/L (135-145); TOTAL CARBON DIOXIDE 25.1 MMOL/L (24-32); TOTAL PROTEIN 7.1 G/DL (6.4-8.2); eGFR 37 ML/MIN
[2022-05-19 17:56] LABS: PLATELET ESTIMATE NORMAL; TOTAL CELLS COUNTED 100
[2022-05-19 17:57] LABS: ANISOCYTOSIS 1+
[2022-05-19] MEDS ORDERED: vancomycin/NS 1 GM ADD-VANTAGE 250 ML IV ONE (22:25)
[2022-05-19] MEDS ORDERED: piperacillin/tazo 3.375gm/50ml 50 ML IV ONE (22:25)
[2022-05-19] MEDS ORDERED: methylPREDNISolone sod succ 125mg/2ml vial IV ONE (22:25)
[2022-05-19] MEDS ORDERED: ipratropium 0.5 MG/2.5ML nebule IH ONE (22:25)
[2022-05-19] MEDS ORDERED: HYDROcodone/acetaminophen 5mg/325mg tablet PO ONE (23:20)
--- NOTE | 2022-05-19 23:27 | NUR ---
Pt states that she is having trouble breathing and walking for the last 3 days.
[2022-05-19] MEDS ORDERED: FURO20TA4 PO (23:42)
[2022-05-19] MEDS ORDERED: LISI10TA27 PO (23:42)
[2022-05-19] MEDS ORDERED: MUPI22OI30 TOP (23:42)
[2022-05-19] MEDS ORDERED: PALI1.5T2 (23:42)
[2022-05-19] MEDS ORDERED: LOSA50TA64 PO (23:42)
[2022-05-20] MEDS ORDERED: AMOX-580 PO (00:32)
[2022-05-20 03:21] VITALS: BP 163/88
== END 2022-05-20 03:22 | disposition home or self-care (01) ==
LOC: ER 16:07
DX: J44.1 Chronic obstructive pulmonary disease with (acute) exacerbation (principal); L03.116 Cellulitis of left lower limb; L03.115 Cellulitis of right lower limb; I11.0 Hypertensive heart disease with heart failure; F20.9 Schizophrenia, unspecified; F17.200 Nicotine dependence, unspecified, uncomplicated; Z88.8 Allergy status to other drugs, medicaments and biological substances; Z79.899 Other long term (current) drug therapy
CPT/HCPCS: 36415; 71045; 80053; 83880; 84145; 84484; 85007; 85025; 93005; 94640; 96365; 96367; 96375; 99285; A6223; J2543; J2930; J3370; J7030; L3260; 94760; A6446

== ENCOUNTER 2022-05-28 10:52 | Inpatient (IN) | payer MEDICAID ==
[~2022-05-28] VITALS: Ht 165.1 cm; Wt 95.6 kg
[~2022-05-28 10:52] MED LIST changes: -ALBU18HF2 INH; +AMOX-580 PO; -FAMO20TA8 PO; -FLUC100T40 PO; +FURO20TA4 PO; +LISI10TA27 PO; -LOSA100T57 PO; +LOSA50TA64 PO; +MUPI22OI30 TOP; +PALI1.5T2 PO
[2022-05-28 11:54] LABS: BASOPHILS % (AUTO) 0.4 % (0-1); EOSINOPHILS # (AUTO) 0.1 X10'3 (0-0.9); EOSINOPHILS % (AUTO) 1.1 % (0-6); HEMATOCRIT 33.7 % (35.0-45.0); HEMOGLOBIN 10.8 g/dl (12.0-16.0); LYMPHOCYTES # (AUTO) 1.8 X10'3 (1.1-4.8); LYMPHOCYTES % (AUTO) 22.1 % (21-51); MEAN CORPUSCULAR HEMOGLOBIN 26.1 PG (27.0-31.0); MEAN CORPUSCULAR VOLUME 81.8 FL (78-98); MEAN PLATELET VOLUME 7.5 FL (7.4-10.4); MONOCYTES % (AUTO) 12.6 % (2-12); NEUTROPHILS # (AUTO) 5.2 X10'3 (1.8-7.7); NEUTROPHILS % (AUTO) 63.8 % (42-75); PLATELET COUNT 385 X10'3 (140-440); RED BLOOD COUNT 4.12 X10'6 (4.20-5.60); RED CELL DISTRIBUTION WIDTH 17.3 % (11.5-14.5); WHITE BLOOD COUNT 8.2 X10'3 (4.5-11.0)
[2022-05-28 12:09] LABS: ALANINE AMINOTRANSFERASE 12 U/L (12-78); ALBUMIN 2.2 G/DL (3.4-5.0); ALBUMIN/GLOBULIN RATIO 0.5 (1.1-1.5); ALKALINE PHOSPHATASE 113 IU/L (46-116); ANION GAP 5 (8-16); ASPARTATE AMINO TRANSFERASE 11 U/L (10-37); BILIRUBIN,TOTAL 0.1 MG/DL (0.1-1.0); BLOOD UREA NITROGEN 9 MG/DL (7-18); CALCIUM 8.4 MG/DL (8.5-10.1); CHLORIDE 109 MMOL/L (99-107); GLUCOSE 83 MG/DL (70-104); POTASSIUM 3.9 MMOL/L (3.5-5.1); SODIUM 143 MMOL/L (135-145); TOTAL CARBON DIOXIDE 28.7 MMOL/L (24-32); TOTAL PROTEIN 6.7 G/DL (6.4-8.2); eGFR 55 ML/MIN
[2022-05-28 12:10] LABS: CLARITY,URINE CLEAR (Clear); COLOR,URINE YELLOW (Yellow); GLUCOSE, URINE NEGATIVE (Neg); KETONES,URINE NEGATIVE (Neg); LEUKOCYTE ESTERASE ,URINE NEGATIVE (Neg); NITRITES, URINE NEGATIVE (Neg); OCCULT BLOOD,URINE NEGATIVE (Neg); PROTEIN,URINE TRACE mg/dl (Neg); UROBILINOGEN,URINE 0.2 E.U/dL (0.2-1.0)
[2022-05-28 12:15] LABS: URINE AMPHETAMINE SCREEN NEGATIVE (Neg); URINE BARBITUATE SCREEN NEGATIVE (Neg); URINE BENZODIAZEPINES SCREEN NEGATIVE (Neg); URINE CANNABINOID SCREEN NEGATIVE (Neg); URINE COCAINE SCREEN NEGATIVE (Neg); URINE METHADONE SCREEN NEGATIVE (Neg); URINE OPIATE SCREEN NEGATIVE (Neg); URINE PHENCYCLIDINE SCREEN NEGATIVE (Neg)
[2022-05-28 12:19] LABS: MUCUS STRANDS FEW /LPF (Neg); SQUAMOUS EPITHELIAL CELL,UR FEW /LPF (FEW); UA COLLECTION TYPE URINAL
[2022-05-28 12:20] LABS: TRANSITIONAL EPI CELLS,URINE FEW /HPF
[2022-05-28 12:21] LABS: ETHANOL < 0.010 GM/DL (0.0-0.010)
[2022-05-28 12:22] LABS: BACTERIA,URINE FEW /HPF (Neg)
[2022-05-28 12:23] LABS: RBC,URINE 0-2 /HPF (0-2); WBC,URINE 0-4 /HPF (0-4)
[2022-05-28 12:41] LABS: ANISOCYTOSIS 1+; PLATELET ESTIMATE NORMAL; TOTAL CELLS COUNTED 100
[2022-05-28 12:43] LABS: POLYCHROMASIA FEW
--- NOTE | 2022-05-28 12:44 | NUR ---
Patient brought from main ER. Patient is sleeping, no distress noted.
[2022-05-28] MEDS ORDERED: AMOX-580 PO (14:31)
--- NOTE | 2022-05-28 14:37 | NUR ---
Miriam prathercharity in [facility] - 05/28/22 at 1520 by AMY Patient awoke from sleep. [facility] transport is here. Patient is being transported to [facility] in [place].
--- NOTE | 2022-05-28 14:53 | NUR ---
Patient awoke, she denies S/I or H/I at this time. She denies hallucinations. Patients primarily complaint is weeping legs. Per ER MD patient needs a wound care consult for her legs. This law writer called wound care and advised Phylicia that the MD would like patient evaluated today. This law writer was advised that they will try.
--- NOTE | 2022-05-28 16:00 | NUR ---
Patients legs are red and hot to the touch. shift supervisor melting was here. Wounds have been dressed. Wound care orders have been put in. The patient is compliant with medications.
--- NOTE | 2022-05-28 16:26 | NUR ---
The patient expresses a want to go home. The patient is advised that she is on a 5150.
--- NOTE | 2022-05-28 17:38 | NUR ---
Patient complains of subjective SOB. No abdominal or accessary muscle use noted. Slight inspiratory wheeze to left upper lung mcfadden. Tidal volume is moderate throughout.
--- NOTE | 2022-05-28 19:00 | NUR ---
One to one with the patient and assessed for symptoms of inability to care for herself. Physical assessment and skin assessment completed. The patient had a knit hat on and one foam roller on the side of her head. When her head was examined it she was found to have a large mass of matted hair and the patient states it has been that way for a long time. She was discharged from the acute medical floor on 05/05/22 and she still had the same intra dry sheets under both breasts. When they were removed she had a large amount of yellow gel time substance that was very malodorous and the skin under her breasts and in the groin areas was excoriated. Dr. Lopez made aware and orders received. She stated that she has been washing up at the sink but has not been showering. She ambulates with a walker and stated last fall was approximately 5-6 months ago. She was unable to identify any support in the community. She is oriented. She stated that she misses her and sometimes she feels his spirit is with her at home. Suicidal thoughts are denied. She denies anxiety. She then added that she has just been trying to get by.
--- NOTE | 2022-05-28 20:29 | NUR ---
The patient is resting on her bed.
[2022-05-28] MEDS: amox tr/potassium clavulanate 875/125mg TAB PO SCH (20:39)
[2022-05-28] MEDS: nystatin 15 GM powder TP SCH (20:39)
--- NOTE | 2022-05-28 21:54 | NUR ---
The patient appears to be sleeping
--- NOTE | 2022-05-28 23:01 | NUR ---
The patient appears to be sleeping
--- NOTE | 2022-05-29 00:10 | NUR ---
Pt asleep on back, respirations 16
--- NOTE | 2022-05-29 00:26 | NUR ---
The patient appears to be sleeping
--- NOTE | 2022-05-29 02:01 | NUR ---
The patient up briefly to the bedside commode and is not back on her bed and appears to be sleeping
--- NOTE | 2022-05-29 04:34 | NUR ---
The patient appears to be sleeping
--- NOTE | 2022-05-29 05:09 | NUR ---
The patient appears to be sleeping
--- NOTE | 2022-05-29 06:49 | NUR ---
Patient sleeping supine. Patient re-adjusting. No distress observed. Continue to monitor.
--- NOTE | 2022-05-29 08:48 | NUR ---
Patient eating breakfast. No distress observed. Continue to monitor.
[2022-05-29] MEDS: furosemide 20MG tablet PO SCH (08:54)
[2022-05-29] MEDS: lisinopril 10 MG tablet PO SCH (08:54)
[2022-05-29] MEDS: metoprolol succinate 25mg (24-HOUR) SR. Tablet PO SCH (08:55)
[2022-05-29] MEDS: nystatin 15 GM powder TP SCH ×4 (08:55→20:27)
[2022-05-29] MEDS: losartan 50mg tablet PO SCH (08:55)
[2022-05-29] MEDS: paliperidone 1.5mg ER tablet PO SCH (08:55)
[2022-05-29] MEDS: amox tr/potassium clavulanate 875/125mg TAB PO SCH ×2 (08:55→20:27)
--- NOTE | 2022-05-29 10:17 | NUR ---
Patient sitting up on the side of her bed No distress observed. Continue to monitor.
--- NOTE | 2022-05-29 11:21 | NUR ---
Patient reclining in bed and sleeping No distress observed. Continue to monitor.
--- NOTE | 2022-05-29 12:21 | NUR ---
Patient eating lunch. No distress observed. Continue to monitor.
--- NOTE | 2022-05-29 14:22 | NUR ---
Patient's [employer] worker is here chatting with patient. No distress observed. Continue to monitor.
--- NOTE | 2022-05-29 15:00 | NUR ---
RN spoke to patient who stated she is not suicidal and doesn't remember making the statement "she's ready to ." Patient states she has plenty of food in her house. Patient stated she would go to wound care. RN spoke to [facility] to see if they wanted to re-eval patient. Riana stated she would look into it. Continue to monitor.
--- NOTE | 2022-05-29 16:07 | NUR ---
Star Team speaking with patient. Patient not taking care of herself. Patient telling them she wants to go home. Continue to monitor.
--- NOTE | 2022-05-29 19:00 | NUR ---
Pt is sitting up in bed eating dinner.
--- NOTE | 2022-05-29 20:00 | NUR ---
PT states her bilateral lower legs hurt, she requests something for pain. Tylenol 650 mg ordered and given.
[2022-05-29] MEDS ORDERED: acetaminophen 325mg tablet PO ONE (20:35)
--- NOTE | 2022-05-29 21:30 | NUR ---
PT states her dressings on her bilat feet are slightly loose and she does not want to trip when she gets OOB. Reinfocement dressings and non slip socks placed on overtop to prevent fall risk. Dressings are CDI.
--- NOTE | 2022-05-30 00:10 | NUR ---
pt asleep on back respirations 14
--- NOTE | 2022-05-30 03:00 | NUR ---
pt used bedside commode without issue
--- NOTE | 2022-05-30 05:35 | NUR ---
pt awake sitting up in bed quietly
[2022-05-30] MEDS ORDERED: acetaminophen 325mg tablet PO PRN (07:10)
[2022-05-30] MEDS: amox tr/potassium clavulanate 875/125mg TAB PO SCH ×2 (07:18→20:00)
[2022-05-30] MEDS: paliperidone 1.5mg ER tablet PO SCH (07:19)
[2022-05-30] MEDS: furosemide 20MG tablet PO SCH (07:20)
[2022-05-30] MEDS: lisinopril 10 MG tablet PO SCH (07:20)
[2022-05-30] MEDS: losartan 50mg tablet PO SCH (07:20)
[2022-05-30] MEDS: nystatin 15 GM powder TP SCH ×4 (07:24→21:00)
[2022-05-30] MEDS: metoprolol succinate 25mg (24-HOUR) SR. Tablet PO SCH ×2 (07:30→07:32)
--- NOTE | 2022-05-30 08:00 | NUR ---
Patient alert and orientated. BLE dressings intact. Patient asking for pain med for pain on her right flank. Tylenol given. Bp was elevated at 0600 at 175/100. Asymptomatic. Patient given her Am BP medication.
--- NOTE | 2022-05-30 10:00 | NUR ---
Patient stable. Blood pressure retaken. Bp- 146/72. Will continue to monitor. Patient comfortable.
--- NOTE | 2022-05-30 12:00 | NUR ---
Wound nurse at bedside changing patient's bilateral lower extremity wound dressings. Patient stable.
[2022-05-30] MEDS ORDERED: HYDROcodone/acetaminophen 5mg/325mg tablet PO ONE (12:45)
--- NOTE | 2022-05-30 14:51 | NUR ---
Patient was given x 1 norco tablet per doctor's orders at 1350. The pain medication was given for her pain on the bilateral lower legs. At 1450 pain reacessed, patient comfortable.
--- NOTE | 2022-05-30 19:41 | NUR ---
Patient remains sleeping in a mid fowlers position. No distress noted.
--- NOTE | 2022-05-30 23:06 | NUR ---
Patient is sleeping low fowlers in bed, supine in position.
--- NOTE | 2022-05-31 01:51 | NUR ---
Patient is supine in bed. No distress noted.
--- NOTE | 2022-05-31 03:54 | NUR ---
Patient is sleeping quietly, no signs of distress.
--- NOTE | 2022-05-31 05:25 | NUR ---
Patient sleeping no distress.
--- NOTE | 2022-05-31 06:30 | NUR ---
Patient had a large BM in bed side commode. No distress observed. Continue to monitor.
--- NOTE | 2022-05-31 07:08 | NUR ---
Patient awake and reclining in bed. No distress observed.
[2022-05-31] MEDS: nystatin 15 GM powder TP SCH ×4 (08:00→20:25)
--- NOTE | 2022-05-31 08:35 | NUR ---
Patient eating breakfast. No distress observed. Continue to monitor.
[2022-05-31] MEDS: paliperidone 1.5mg ER tablet PO SCH (09:18)
[2022-05-31] MEDS: furosemide 20MG tablet PO SCH (09:18)
[2022-05-31] MEDS: lisinopril 10 MG tablet PO SCH (09:18)
[2022-05-31] MEDS: amox tr/potassium clavulanate 875/125mg TAB PO SCH ×2 (09:18→20:25)
[2022-05-31] MEDS: metoprolol succinate 25mg (24-HOUR) SR. Tablet PO SCH (09:19)
[2022-05-31] MEDS: losartan 50mg tablet PO SCH (09:19)
--- NOTE | 2022-05-31 10:37 | NUR ---
Patient sleeping supine. No distress observed. Continue to monitor.
[2022-05-31] MEDS ORDERED: ATR0.5NEB IH (12:13)
--- NOTE | 2022-05-31 12:22 | NUR ---
Patient eating lunch. No distress observed. Continue to monitor.
--- NOTE | 2022-05-31 14:17 | NUR ---
Patient sleeping supine. No distress observed. Continue to monitor.
--- NOTE | 2022-05-31 15:31 | NUR ---
pt SS worker called and left phone number requesting we have it in her file.
[2022-05-31] MEDS: ipratropium 0.5 MG/2.5ML nebule IH PRN (16:01)
--- NOTE | 2022-05-31 16:10 | NUR ---
Respiratory came and gave patient a Respiratory Treatment. +wheezing throughout, pronounced in left upper lobe. Patient feeling better post treatment. Continue to monitor.
--- NOTE | 2022-05-31 19:00 | NUR ---
One to one with the patient to provide ADLs. Her bed linens were changed and her clothes were changed. She had a home pad on that she has not changed since admit. Candice care given. Dentures removed and brushed. She asked to watch TV and a tv was provided. She is very pleasant and friendly and talkative.
[2022-05-31] MEDS: acetaminophen 325mg tablet PO PRN (20:39)
--- NOTE | 2022-05-31 21:44 | NUR ---
The patient is resting on her bed and watching TV.
--- NOTE | 2022-05-31 23:05 | NUR ---
The patient is resting on his bed
--- NOTE | 2022-06-01 00:07 | NUR ---
Miriam cevallos in [facility] - 06/01/22 at 0008 by NACHO The patient is locking herself in the bathroom and refusing come out because "I can't sleep" Dr. Lopez made aware and orders received.
[2022-06-01] MEDS ORDERED: LORazepam 1 MG tablet PO ONE (00:10)
--- NOTE | 2022-06-01 00:53 | NUR ---
The patient appears to be sleeping
--- NOTE | 2022-06-01 02:48 | NUR ---
The patient appears to be sleeping
--- NOTE | 2022-06-01 04:26 | NUR ---
The patient is awake and sitting on the side of her bed.
--- NOTE | 2022-06-01 04:38 | NUR ---
RT WAS PAGED FOR PATIENT TO GET ABREATHING TREATMENT.
--- NOTE | 2022-06-01 04:42 | NUR ---
Respiratory is at the bedside to give the patient a treatment
[2022-06-01] MEDS: ipratropium 0.5 MG/2.5ML nebule IH PRN ×2 (04:43→17:23)
--- NOTE | 2022-06-01 06:30 | NUR ---
The patient is resting on her bed and watching tv
--- NOTE | 2022-06-01 08:00 | NUR ---
The patient is awake and watching tv. She is friendly with staff.
[2022-06-01] MEDS: amox tr/potassium clavulanate 875/125mg TAB PO SCH ×2 (09:13→19:56)
[2022-06-01] MEDS: paliperidone 1.5mg ER tablet PO SCH (09:13)
[2022-06-01] MEDS: losartan 50mg tablet PO SCH (09:14)
[2022-06-01] MEDS: furosemide 20MG tablet PO SCH (09:14)
[2022-06-01] MEDS: acetaminophen 325mg tablet PO PRN (09:14)
[2022-06-01] MEDS: lisinopril 10 MG tablet PO SCH (09:15)
[2022-06-01] MEDS: nystatin 15 GM powder TP SCH ×4 (09:15→20:02)
[2022-06-01] MEDS: metoprolol succinate 25mg (24-HOUR) SR. Tablet PO SCH (09:17)
--- NOTE | 2022-06-01 10:27 | NUR ---
The patient is very talkative. She was cooperative with getting a bed bath. Dressing to bilateral legs was done.
--- NOTE | 2022-06-01 12:10 | NUR ---
The patient was awakened for her lunch but went right back to sleep
--- NOTE | 2022-06-01 12:39 | NUR ---
The patient is awake and eating her lunch
--- NOTE | 2022-06-01 13:10 | NUR ---
The patient is awake and watching TV
--- NOTE | 2022-06-01 14:41 | NUR ---
The patient is watching TV.
--- NOTE | 2022-06-01 15:30 | NUR ---
The provider, Alan CRENSHAW, here to see the patient
--- NOTE | 2022-06-01 15:34 | NUR ---
The patient's pharmacist critical care here to see the patient
--- NOTE | 2022-06-01 17:01 | NUR ---
THe patient is complaining of shortness of breath and RT paged
--- NOTE | 2022-06-02 07:16 | NUR ---
Patient brought over from the main 45 minutes ago. Patient is now sleeping on her left side. No distress observed. Continue to monitor.
[2022-06-02] MEDS: amox tr/potassium clavulanate 875/125mg TAB PO SCH (08:39)
[2022-06-02] MEDS: lisinopril 10 MG tablet PO SCH (08:40)
[2022-06-02] MEDS: losartan 50mg tablet PO SCH (08:40)
[2022-06-02] MEDS: furosemide 20MG tablet PO SCH (08:40)
[2022-06-02] MEDS: paliperidone 1.5mg ER tablet PO SCH (08:40)
[2022-06-02] MEDS: nystatin 15 GM powder TP SCH ×4 (08:41→21:00)
[2022-06-02] MEDS: metoprolol succinate 25mg (24-HOUR) SR. Tablet PO SCH (08:41)
--- NOTE | 2022-06-02 08:57 | NUR ---
Patient sitting up and eating breakfast. RN giving patient her morning meds. Patient attempted to refuse her meds and RN reminds her that this is one of the reasons why she is here. She is not taking care of her self. Patient then took her meds. Continue to monitor.
--- NOTE | 2022-06-02 10:52 | NUR ---
Note yamilkacharity in ED - 06/02/22 at 1122 by RAYSA Patient was making unusual motions wher her body and arms. Patient stuck a coffee cup up her shirt and all loose items were taken away from her. Patient is not putting on her socks and appears to be responding to internal stimuli. Continue to monitor.
--- NOTE | 2022-06-02 10:55 | NUR ---
Patient sitting up in bed. No distress observed. RN gave patient pain medication for generalized aches. No distress observed. Continue to monitor.
[2022-06-02] MEDS: acetaminophen 325mg tablet PO PRN (10:58)
--- NOTE | 2022-06-02 12:15 | NUR ---
Patient eating lunch. No distress observed. Continue to monitor.
--- NOTE | 2022-06-02 15:11 | NUR ---
RN cleansed and redressed bilateral leg wounds. Per automotive parts interpreter RN, she changed the dressing twice because they would not stay up. Small amount of discharge see as patient's legs are weepy with edema. Patient has 2 stasis ulcers at her ankles. Patient tolerated the change well. No distress observed. Continue to monitor.
--- NOTE | 2022-06-02 17:03 | NUR ---
Patient reclining in bed awake. No distress observed. Continue to monitor
--- NOTE | 2022-06-02 18:35 | NUR ---
Assumed care of patient, pt resting in bed appears to be comfortable. Pts BP is 190/106 notified provider.
[2022-06-02] MEDS ORDERED: metoprolol tartrate 50mg tablet PO ONE (18:50)
[2022-06-02] MEDS: ipratropium 0.5 MG/2.5ML nebule IH PRN (21:45)
--- NOTE | 2022-06-02 22:55 | NUR ---
Pt is awake sitting up in bed. Pt denies having trouble sleeping. "Zoraida been sleeping a lot all day, Im sleeping enough." Pt had some crackers and juice and is now laying down eyes open appears to be resting comfortably.;
--- NOTE | 2022-06-03 00:49 | NUR ---
Pt is laying on her back asleep rr 16
--- NOTE | 2022-06-03 04:51 | NUR ---
Pt up to use the commode and returned to bed. Pt appears to be sleeping rr 16
--- NOTE | 2022-06-03 06:47 | NUR ---
Patient awake and reclining in bed. No distress observed. Continue to monitor.
--- NOTE | 2022-06-03 08:22 | NUR ---
Patient eating breakfast. No distress observed. Continue to monitor.
[2022-06-03] MEDS: losartan 50mg tablet PO SCH (08:54)
[2022-06-03] MEDS: lisinopril 10 MG tablet PO SCH (08:54)
[2022-06-03] MEDS: metoprolol succinate 25mg (24-HOUR) SR. Tablet PO SCH (08:54)
[2022-06-03] MEDS: furosemide 20MG tablet PO SCH (08:54)
[2022-06-03] MEDS: paliperidone 1.5mg ER tablet PO SCH (08:54)
[2022-06-03] MEDS: nystatin 15 GM powder TP SCH ×4 (08:55→21:00)
[2022-06-03] MEDS: ipratropium 0.5 MG/2.5ML nebule IH PRN ×2 (09:57→16:07)
--- NOTE | 2022-06-03 10:09 | NUR ---
Patient watching T.V. No distress observed. Continue to monitor.
--- NOTE | 2022-06-03 12:05 | NUR ---
Patient eating lunch. No distress observed. Continue to monitor.
--- NOTE | 2022-06-03 13:40 | NUR ---
Patient reclining in bed and watching T.V. No distress observed. Continue to monitor.
--- NOTE | 2022-06-03 15:43 | NUR ---
Patient wants to speak to a doctor who can release her. RN explained that a doctor can't release her and [facility] just renewed her 5150. Patient was not happy. Patient continues to watch T.V. Continue to monitor.
--- NOTE | 2022-06-03 17:14 | NUR ---
Patient is watching Game shows. No distress observed. Continue to monitor.
--- NOTE | 2022-06-03 19:31 | NUR ---
Pt sitting quietly in bed watching TV with no complaints
--- NOTE | 2022-06-03 23:00 | NUR ---
Pt drinks tea and lays in bed
--- NOTE | 2022-06-04 00:01 | NUR ---
Pt asleep on back RR 16
--- NOTE | 2022-06-04 03:00 | NUR ---
PT resting quietly respirations even and unlabored
--- NOTE | 2022-06-04 05:19 | NUR ---
Pt asleep respirations 14
[2022-06-04] MEDS: losartan 50mg tablet PO SCH (07:51)
[2022-06-04] MEDS: metoprolol succinate 25mg (24-HOUR) SR. Tablet PO SCH (07:52)
[2022-06-04] MEDS: paliperidone 1.5mg ER tablet PO SCH (07:52)
[2022-06-04] MEDS: lisinopril 10 MG tablet PO SCH (07:52)
[2022-06-04] MEDS: furosemide 20MG tablet PO SCH (07:52)
[2022-06-04] MEDS: nystatin 15 GM powder TP SCH ×4 (08:18→21:51)
--- NOTE | 2022-06-04 08:30 | NUR ---
Pt. awake and eating breakfast at bedside. Pt. in no apparent distress. .
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
--- NOTE | 2022-06-04 11:30 | NUR ---
Pt. seen by wound care nurse. Per wound care, pt.'s RLE has healed. Pt.'s LLE cleaned and bandaged by wound care nurse. See wound care orders and assessment.
--- NOTE | 2022-06-04 12:30 | NUR ---
Pt. awake and eating lunch at bedside. Pt. in no apparent distress.
--- NOTE | 2022-06-04 14:30 | NUR ---
Pt.'s rn case manager is at pt.'s bedside visiting.
--- NOTE | 2022-06-04 14:35 | NUR ---
WOC note. Agree with POWERHOUSE ENGINEER note, assessement and care.
[2022-06-04] MEDS: ipratropium 0.5 MG/2.5ML nebule IH PRN (15:13)
--- NOTE | 2022-06-04 16:00 | NUR ---
Pt. had large, formed BM.
--- NOTE | 2022-06-04 16:30 | NUR ---
Pt. asleep in supine position. R&R of respirations 20 and unlabored.
--- NOTE | 2022-06-04 18:17 | NUR ---
Pt. awake and eating dinner. Pt. in no apparent distress.
--- NOTE | 2022-06-04 18:35 | NUR ---
PT is awake sitting in bed eating her dinner.
--- NOTE | 2022-06-04 21:00 | NUR ---
Pt med compliant, allows RN to put nystatin powder under bilat breasts, areas are still reddened, but improving
--- NOTE | 2022-06-04 23:00 | NUR ---
PTutilized PRN tylenol for lower leg pain
--- NOTE | 2022-06-05 01:00 | NUR ---
PT asleep on back RR 16
--- NOTE | 2022-06-05 04:00 | NUR ---
PT asleep respirations WNL
--- NOTE | 2022-06-05 05:50 | NUR ---
PT asleep RR16
[2022-06-05] MEDS: paliperidone 1.5mg ER tablet PO SCH (08:39)
[2022-06-05] MEDS: losartan 50mg tablet PO SCH (08:41)
[2022-06-05] MEDS: lisinopril 10 MG tablet PO SCH (08:41)
[2022-06-05] MEDS: furosemide 20MG tablet PO SCH (08:41)
[2022-06-05] MEDS: metoprolol succinate 25mg (24-HOUR) SR. Tablet PO SCH (08:42)
[2022-06-05] MEDS: nystatin 15 GM powder TP SCH ×4 (08:46→20:19)
--- NOTE | 2022-06-05 09:19 | NUR ---
Patient laying in bed sleeping.
[2022-06-05] MEDS: ipratropium 0.5 MG/2.5ML nebule IH PRN ×2 (11:42→20:42)
--- NOTE | 2022-06-05 11:43 | NUR ---
Respiratory therapy here to give patient treatment. Clean scrubs given to patient.
--- NOTE | 2022-06-05 13:21 | NUR ---
Dressing changed to LLE. There is serosangenous fluid noted on dressing. Patient is pleasant and cooperative with care. Patient utilizes bedside commode independently.
--- NOTE | 2022-06-05 15:09 | NUR ---
Patient sleeping in bed. Respirations are even.
--- NOTE | 2022-06-05 17:01 | NUR ---
[facility] here speaking with patient.
--- NOTE | 2022-06-05 19:24 | NUR ---
One to one with the patient to assess what her plans are if she were to leave the hospital and for severity of thought disorder. The patient was pleasant and cooperative with the evening assessment. She gave very tangential answers to questions. She is focused on wanting to go home. Talked with the patient that she has to have a reliable rn critical care in place before she goes home to help with grocery and food preparation, bathing, and dressing changes. She stated that she needed to go home because "He needs me" and when asked to elaborate she gave a disorganized account that she believes in Saul "and he needs me" and went on to state that there was a picture of Saul with blue hair and he is there with her. She also feels she is never alone at her apartment and that the presense of her is there.
--- NOTE | 2022-06-05 20:03 | NUR ---
Patient checked for head lice and none visualized.
--- NOTE | 2022-06-05 22:22 | NUR ---
Patient met with [facility] staff to sign admit paper work. She is currently resting on her bed.
--- NOTE | 2022-06-06 00:31 | NUR ---
The patient appears to be sleeping
--- NOTE | 2022-06-06 03:02 | NUR ---
The patient is sitting up on the side of her bed.
--- NOTE | 2022-06-06 04:30 | NUR ---
The patient appears to be sleeping
--- NOTE | 2022-06-06 05:33 | NUR ---
The patient appears to be sleeping
--- NOTE | 2022-06-06 06:31 | NUR ---
Patient sleeping in bed. Respirations are even and unlabored.
--- NOTE | 2022-06-06 06:58 | NUR ---
Patient discharged to [facility] with security incident handler via W/C. All belongings provided to patient.
[2022-06-06] MEDS ORDERED: magnesium hydroxide 30ml (MOM) UD suspension PO PRN (07:25)
[2022-06-06] MEDS ORDERED: acetaminophen 325mg tablet PO PRN ×2 (07:25)
[2022-06-06] MEDS ORDERED: NICOTINE POLACRILEX 2 MG LOZENGE BC PRN (07:25)
[2022-06-06] MEDS ORDERED: mag hydrox/Alum hydrox/simeth 30ml oral suspension PO PRN (07:25)
[2022-06-06] MEDS ORDERED: loperamide 2mg capsule PO PRN (07:25)
--- NOTE | 2022-06-06 07:31 | NUR ---
Admit note: Pt admitted today on 5150 for GD from our emergency room at 0700. Pt exhibits wounds , neglecting care for basic needs, unable to report a viable safety plan, and meet daily functioning needs for food, clothing and retirement. Pt has history of CVA, CHF, HTN, COPD, PE, cancer, schizophrenia. Pt presents with venous stasis wounds to lower extremities.
[2022-06-06 08:00] VITALS: BP 154/86
[2022-06-06] MEDS ORDERED: nicotine 21mg patch - 24 hr TD SCH (08:00)
[2022-06-06] MEDS: lisinopril 10 MG tablet PO SCH (08:56)
[2022-06-06] MEDS: paliperidone 1.5mg ER tablet PO SCH (08:56)
[2022-06-06] MEDS: losartan 50mg tablet PO SCH (08:56)
[2022-06-06] MEDS: nystatin 15 GM powder TP SCH ×4 (08:57→20:48)
[2022-06-06] MEDS: metoprolol succinate 25mg (24-HOUR) SR. Tablet PO SCH (08:57)
[2022-06-06] MEDS: acetaminophen 325mg tablet PO PRN (09:00)
[2022-06-06] MEDS: furosemide 20MG tablet PO SCH (09:21)
[2022-06-06] MEDS: ipratropium 0.5 MG/2.5ML nebule IH PRN ×2 (16:59→23:39)
[2022-06-06 19:00] VITALS: BP 135/61
--- NOTE | 2022-06-07 05:02 | NUR ---
NURSING PROGRESS NOTE Problem: Pt admitted today on 5150 for GD from our emergency room at 0700. Pt exhibits wounds, neglecting care for basic needs, unable to report a viable safety plan, and meet daily functioning needs for food, clothing and prison. Pt has history of CVA, CHF, HTN, COPD, PE, cancer, schizophrenia. Pt presents with venous stasis wounds to lower extremities. Intervention: Maintained a safe and supportive environment, provided clear and simple instructions, provided active listening and positive encouragement, encouraged participation on the unit, maintained fall precautions and provided education regarding fall risk. Response: Received patient walking around unit at change of shift. Charge nurse became aware that patient was positive for having a multi drug resistant organism and had to be moved out of her shared room to [facility]. Patient complained that the toilet was to low and was given a toilet commode to help with transferring off and on toilet. Patient then became complaining that the bed was too low and she wouldnt be able to get in and out of it. Due to patient infection she cannot be placed in room with medical bed so patient was given a reclining chair. Patient received would treatment and nystatin powder was placed under breast and adama area after being cleaned. Patient continued to get up and down all night continuously complaining about bed and new room. Plan: Pt is on 5150 Patient continues to require a safe and supportive environment. Requires medication stabilization and management in a safe therapeutic environment
[2022-06-07 08:00] VITALS: BP 118/69
[2022-06-07] MEDS: metoprolol succinate 25mg (24-HOUR) SR. Tablet PO SCH ×2 (08:00→10:33)
[2022-06-07] MEDS ORDERED: metoprolol succinate 25mg (24-HOUR) SR. Tablet PO ONE (08:00)
[2022-06-07] MEDS: losartan 50mg tablet PO SCH (08:03)
[2022-06-07] MEDS: furosemide 20MG tablet PO SCH (08:04)
[2022-06-07] MEDS: paliperidone 1.5mg ER tablet PO SCH (08:04)
[2022-06-07] MEDS: nystatin 15 GM powder TP SCH ×4 (09:17→20:52)
[2022-06-07 10:51] LABS: HEMOGLOBIN A1C 5.8 % (4.5-6.2)
[2022-06-07 10:56] LABS: CHOL/HDL RATIO 5.7 (0.00-4.99); CHOLESTEROL 243 MG/DL (0-200); HDL CHOLESTEROL 43 MG/DL (35-60); LDL CHOLESTEROL 135 MG/DL (50-100); TRIGLYCERIDES 265 MG/DL (20-135)
[2022-06-07] MEDS ORDERED: albuterol 2.5 MG/3 ML nebule NEB PRN (15:25)
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
[2022-06-07 19:00] VITALS: BP 121/61
--- NOTE | 2022-06-08 05:11 | NUR ---
Nursing Progress Note: Problem: Pt admitted on 5150 for GD from our emergency room at 0700. Pt exhibits wounds, neglecting care for basic needs, unable to report a viable safety plan, and meet daily functioning needs for food, clothing and jail. Pt has history of CVA, CHF, HTN, COPD, PE, cancer, schizophrenia. Pt presents with venous stasis wounds to lower extremities. Intervention: Maintained a safe and supportive environment, provided clear and simple instructions, provided active listening and positive encouragement, encouraged participation on the unit, maintained fall precautions and provided education regarding fall risk. Response: Patient is pleasant and cooperative with care. She denies SI, HI, A/VH; no apparent delusions expressed. Patient is hyperverbal and circumstantial. She briefly elevated her legs per typewriter assembler request but spends the majority of the shift in a sitting position in her recliner. Patient was only seen on the unit to finish her dinner and promptly retired to her room; observed sleeping and does not appear to be having difficulty while in sitting position. Plan: Pt is on 5150 Patient continues to require a safe and supportive environment. Requires medication stabilization and management in a safe therapeutic environment
[2022-06-08 07:21] VITALS: BP 106/63
[2022-06-08] MEDS: metoprolol succinate 25mg (24-HOUR) SR. Tablet PO SCH (07:45)
[2022-06-08] MEDS: paliperidone 1.5mg ER tablet PO SCH (07:45)
[2022-06-08] MEDS: furosemide 20MG tablet PO SCH (07:46)
[2022-06-08] MEDS: losartan 50mg tablet PO SCH (07:46)
[2022-06-08] MEDS: nystatin 15 GM powder TP SCH ×4 (07:59→20:12)
[2022-06-08] MEDS: acetaminophen 325mg tablet PO PRN (08:00)
[2022-06-08] MEDS: ipratropium 0.5 MG/2.5ML nebule IH PRN (08:36)
--- NOTE | 2022-06-08 15:52 | NUR ---
Nursing Progress Note: Problem: Pt admitted on 5150 for GD from our emergency room at 0700. Pt exhibits wounds, neglecting care for basic needs, unable to report a viable safety plan, and meet daily functioning needs for food, clothing and prison. Pt has history of CVA, CHF, HTN, COPD, PE, cancer, schizophrenia. Pt presents with venous stasis wounds to lower extremities. Intervention: Maintained a safe and supportive environment, provided clear and simple instructions, provided active listening and positive encouragement, encouraged participation on the unit, maintained fall precautions and provided education regarding fall risk. Response: Patient was found sitting in chair asleep at beinging of shift. Patient moved to community room where she was observed socializing with others and drinking coffee. Patient participated in breakfast and took morning medications without an issue. Patient requested prn Tylenol to help with leg pain. Patient returned to room for a short nap before returning to community room for grup games and lunch. Wound care was preformed on back of left leg as well as cream added to both legs. Patient has episode of bladder incontinents and was cleaned up and offered new clothes. Plan: Pt is on 5150 Patient continues to require a safe and supportive environment. Requires medication stabilization and management in a safe therapeutic environment
[2022-06-08 20:00] VITALS: BP 135/64
--- NOTE | 2022-06-09 05:22 | NUR ---
Nursing Progress Note: Problem: Pt admitted on 5150 for GD from our emergency room at 0700. Pt exhibits wounds, neglecting care for basic needs, unable to report a viable safety plan, and meet daily functioning needs for food, clothing and mcc. Pt has history of CVA, CHF, HTN, COPD, PE, cancer, schizophrenia. Pt presents with venous stasis wounds to lower extremities. Intervention: Maintained a safe and supportive environment, provided clear and simple instructions, provided active listening and positive encouragement, encouraged participation on the unit, maintained fall precautions and provided education regarding fall risk. Response: Patient is pleasant and cooperative with care. She denies SI, HI, A/VH; no apparent delusions expressed. Patient is hyperverbal. She reported concern about getting back home because she is worried about losing her apartment. Patient participated in HS snack and observed socializing with peers prior to bed. She continues to spends the majority of the time sleeping in a sitting position in her recliner; only elevating her legs when asked by staff but does not appear to be having difficulty sleeping. Plan: Pt is on 5150 Patient continues to require a safe and supportive environment. Requires medication stabilization and management in a safe therapeutic environment
[2022-06-09 07:32] VITALS: BP 130/57
[2022-06-09] MEDS: paliperidone 1.5mg ER tablet PO SCH (07:57)
[2022-06-09] MEDS: metoprolol succinate 25mg (24-HOUR) SR. Tablet PO SCH (07:58)
[2022-06-09] MEDS: furosemide 20MG tablet PO SCH (07:58)
[2022-06-09 07:59] VITALS: BP_SYST 130
[2022-06-09] MEDS: losartan 50mg tablet PO SCH (07:59)
[2022-06-09] MEDS: nystatin 15 GM powder TP SCH ×2 (08:08→12:05)
[2022-06-09] MEDS: acetaminophen 325mg tablet PO PRN (08:13)
--- NOTE | 2022-06-09 13:39 | NUR ---
5250 RELEASED FOR GD
--- NOTE | 2022-06-09 14:30 | NUR ---
DISCHARGE PLAN Lena won her 5250 hearing today. Her window caser from [facility] at [facility], Cynthia Gallegos, will pick her up to take her home. She has follow up scheduled with Dr Berkowitz at [facility] on 06/26/22. HERNANDEZ Leonardo
[2022-06-09] MEDS ORDERED: AMOX-580 PO (14:36)
--- NOTE | 2022-06-09 15:37 | NUR ---
Nursing Progress Note: Problem: Pt admitted on 5150 for GD from our emergency room at 0700. Pt exhibits wounds, neglecting care for basic needs, unable to report a viable safety plan, and meet daily functioning needs for food, clothing and detention. Pt has history of CVA, CHF, HTN, COPD, PE, cancer, schizophrenia. Pt presents with venous stasis wounds to lower extremities. Intervention: Maintained a safe and supportive environment, provided clear and simple instructions, provided active listening and positive encouragement, encouraged participation on the unit, maintained fall precautions and provided education regarding fall risk. Response: Patient was found sleeping in reclining chair at beginning of shift. Patient stayed there until breakfast. Patient again requested Tylenol for leg pain. Before returning to chair in room. Wound care was preformed on legs before patient took afternoon nap. Patient had hearing at 1330 which she won. Patient was prepared for discharge including signing of discharge paperwork. Going through inventory and discussing discharge plan. Patient was assisted out of green scrubs and helped down to cab at 1545. Plan: Pt is on 5150 Patient continues to require a safe and supportive environment. Requires medication stabilization and management in a safe therapeutic environment
== END 2022-06-09 17:00 | disposition home or self-care (01) | DRG 750 ==
LOC: ER 10:53 → ED HOLD 06-05 19:45 → UNDOADMIN 06-05 19:45 → ED HOLD 06-06 07:00 → ADULT MH 06-06 07:07 → ED HOLD 06-06 07:07 → ADULT MH 06-06 07:23 → UNDODISIN 06-09 17:00
PROVIDERS: ADMIT Psychiatry & Neurology Psychiatry; ATTEND Psychiatry & Neurology Psychiatry
DX: F25.1 Schizoaffective disorder, depressive type (principal); I11.0 Hypertensive heart disease with heart failure; B49 Unspecified mycosis; I50.9 Heart failure, unspecified; I83.009 Varicose veins of unspecified lower extremity with ulcer of unspecified site; Z91.14 Patient's other noncompliance with medication regimen; E66.9 Obesity, unspecified; Z20.822 Contact with and (suspected) exposure to COVID-19; Z60.2 Problems related to living alone; F43.12 Post-traumatic stress disorder, chronic; F32.A Depression, unspecified; J44.9 Chronic obstructive pulmonary disease, unspecified; Z85.828 Personal history of other malignant neoplasm of skin; Z86.711 Personal history of pulmonary embolism; Z86.73 Personal history of transient ischemic attack (TIA), and cerebral infarction without residual deficits; Z88.8 Allergy status to other drugs, medicaments and biological substances; Z68.35 Body mass index [BMI] 35.0-35.9, adult; Z79.899 Other long term (current) drug therapy
CPT/HCPCS: 36415; 80053; 80061; 80305; 80320; 81001; 83036; 84443; 85007; 85025; 87081; 87811; 94640; 94760; 99285; A6222; A6446; G0378

== ENCOUNTER 2022-08-25 03:09 | Inpatient (IN) | payer MEDICAID ==
[~2022-08-25] VITALS: Ht 165.1 cm; Wt 100.0 kg
[~2022-08-25 03:09] MED LIST changes: +ATR0.5NEB IH; -MUPI22OI30 TOP; -NOR5T PO; -PRED20TA PO
[2022-08-25] MEDS ORDERED: nitroGLYCERIN 0.2mg/hour patch TD ONE (03:25)
[2022-08-25] MEDS ORDERED: furosemide 10 MG/1 ML 10ml inj IV ONE (03:25)
[2022-08-25] MEDS ORDERED: CefTRIAXone/D5W-Rocephin 1gm 50 ML IV ONE (03:35)
[2022-08-25 04:04] LABS: ALANINE AMINOTRANSFERASE 19 U/L (12-78); ALBUMIN 2.5 G/DL (3.4-5.0); ALBUMIN/GLOBULIN RATIO 0.5 (1.1-1.5); ALKALINE PHOSPHATASE 158 IU/L (46-116); ANION GAP 8 (8-16); ASPARTATE AMINO TRANSFERASE 14 U/L (10-37); BILIRUBIN,TOTAL 0.2 MG/DL (0.1-1.0); BLOOD UREA NITROGEN 27 MG/DL (7-18); BUN/CREATININE RATIO 17.8 (6.6-38.0); CHLORIDE 108 MMOL/L (99-107); CREATININE 1.52 MG/DL (0.40-0.90); GLUCOSE 178 MG/DL (70-104); POTASSIUM 4.7 MMOL/L (3.5-5.1); SODIUM 146 MMOL/L (135-145); TOTAL CARBON DIOXIDE 29.6 MMOL/L (24-32); TOTAL PROTEIN 7.8 G/DL (6.4-8.2); eGFR 34 ML/MIN
[2022-08-25] MEDS ORDERED: morphine 4 MG/ML inj SYRINge IV ONE (04:10)
[2022-08-25 04:12] LABS: BASOPHILS # (AUTO) 0.1 X10'3 (0-0.2); BASOPHILS % (AUTO) 0.5 % (0-1); EOSINOPHILS # (AUTO) 0.1 X10'3 (0-0.9); EOSINOPHILS % (AUTO) 0.7 % (0-6); LYMPHOCYTES # (AUTO) 1.4 X10'3 (1.1-4.8); LYMPHOCYTES % (AUTO) 13.9 % (21-51); MEAN PLATELET VOLUME 7.6 FL (7.4-10.4); MONOCYTES # (AUTO) 0.9 X10'3 (0-0.9); MONOCYTES % (AUTO) 8.6 % (2-12); NEUTROPHILS # (AUTO) 7.5 X10'3 (1.8-7.7); NEUTROPHILS % (AUTO) 76.3 % (42-75); RED BLOOD COUNT 4.36 X10'6 (4.20-5.60); RED CELL DISTRIBUTION WIDTH 18.5 % (11.5-14.5); WHITE BLOOD COUNT 9.9 X10'3 (4.5-11.0)
[2022-08-25] MEDS ORDERED: metoprolol tartrate 1mg/ml inj IV ONE (04:50)
[2022-08-25] MEDS ORDERED: mag hydrox/Alum hydrox/simeth 30ml oral suspension PO PRN (05:20)
[2022-08-25] MEDS ORDERED: magnesium Cl slow-release 64mg tablet PO PRN (05:20)
[2022-08-25] MEDS ORDERED: ondansetron/PF 4mg/2ml inj IV PRN (05:20)
[2022-08-25] MEDS ORDERED: magnesium hydroxide 30ml (MOM) UD suspension PO PRN (05:20)
[2022-08-25] MEDS ORDERED: potassium Cl 40MEQ/1/2NS 520ml 520 ML IV PRN (05:20)
[2022-08-25] MEDS ORDERED: magnesium 4gm in 100ml NS 100 ML IV PRN (05:20)
[2022-08-25] MEDS ORDERED: potassium Cl 20 mEq SR tablet PO PRN ×2 (05:20)
[2022-08-25 05:34] LABS: ABG BASE EXCESS -0.1 mmol/L (-2.0-2.0); ABG HCO3 34.4 mmol/L (22.0-26.0); ABG OXYGEN SATURATION 81.4 % (94-97); ABG PCO2 (T) 134.7 mmHg (32.0-45.0); ALLEN'S TEST POSITIVE; FCOHb 2.6 % (0.0-3.9); FLOW 6 L/min; FMetHb 0.2 % (0.0-1.5); FO2Hb 79.1 % (94-97); PATIENT TEMPERATURE 36.8; TOTAL HEMOGLOBIN 12.5 G/dl (12.0-16.0)
[2022-08-25] MEDS ORDERED: albuterol 2.5 MG/3 ML nebule NEB PRN (05:40)
[2022-08-25 05:48] LABS: HEMATOCRIT 34.7 % (35.0-45.0); HEMOGLOBIN 10.7 g/dl (12.0-16.0); MEAN CORPUSCULAR HEMOGLOBIN 24.5 PG (27.0-31.0); MEAN CORPUSCULAR VOLUME 79.5 FL (78-98)
[2022-08-25 05:49] LABS: MEAN CORPUSCULAR HGB CONC 30.8 g/dL (33.0-36.5); PLATELET COUNT 481 X10'3 (140-440)
[2022-08-25] MEDS ORDERED: methylPREDNISolone sod succ 125mg/2ml vial IV ONE (05:55)
[2022-08-25] MEDS ORDERED: methylPREDNISolone sod succ/PF 40mg inj. IV ONE (06:00)
[2022-08-25 06:46] LABS: ABG BASE EXCESS -5.8 mmol/L (-2.0-2.0); ABG HCO3 27.9 mmol/L (22.0-26.0); ABG PCO2 (T) 105.4 mmHg (32.0-45.0); ABG PO2 (T) 65.2 mmHg (75.0-100.0); ALLEN'S TEST POSITIVE; RESPIRATORY RATE 12 b/min; TIDAL VOLUME 360 mL
[2022-08-25 07:25] LABS: MAGNESIUM 2.8 MG/DL (1.5-2.4); POTASSIUM 5.7 MMOL/L (3.5-5.1)
[2022-08-25 07:32] LABS: ANISOCYTOSIS 2+; LARGE PLATELETS FEW; NUCLEATED RED BLOOD CELLS 4 /100WBC (0-0); PLATELET ESTIMATE INCREASED; TOTAL CELLS COUNTED 100
[2022-08-25 07:33] LABS: POLYCHROMASIA FEW
[2022-08-25] MEDS: heparin, porcine 5000 units/ml vial SQ SCH ×2 (07:42→20:24)
[2022-08-25] MEDS: metoprolol tartrate 25mg tablet PO SCH ×2 (07:42→20:23)
[2022-08-25] MEDS: docusate sod 100mg capsule PO SCH ×2 (07:45→20:22)
[2022-08-25] MEDS: K and/or MAG REPLACEMENT MC SCH ×2 (07:49→20:08)
[2022-08-25] MEDS ORDERED: hydrALAZINE 20mg/ml inj. IV PRN (08:15)
--- NOTE | 2022-08-25 08:15 | NUR ---
CALLED DR. ELLINGTON ABOUT THE HIGH BP IN BED 5, NEW ORDERS ARE BEING PLACED
[2022-08-25] MEDS: levalbuterol 0.63mg/3ml nebule IH SCH ×3 (09:00→19:59)
[2022-08-25 09:38] LABS: ABG BASE EXCESS 0.8 mmol/L (-2.0-2.0); ABG HCO3 31.4 mmol/L (22.0-26.0); ABG OXYGEN SATURATION 95.5 % (94-97); ABG PCO2 (T) 88.2 mmHg (32.0-45.0); ABG PO2 (T) 84.2 mmHg (75.0-100.0); ALLEN'S TEST POSITIVE; FMetHb 0.3 % (0.0-1.5); FO2Hb 93.3 % (94-97); RESPIRATORY RATE 12 b/min; TIDAL VOLUME 540 mL
[2022-08-25] MEDS: methylPREDNISolone sod succ 125mg/2ml vial IV SCH ×2 (14:28→20:22)
[2022-08-25] MEDS ORDERED: NO HOME MEDS (15:25)
[2022-08-25] MEDS: acetaminophen 325mg tablet PO PRN (21:04)
[2022-08-26] MEDS: levalbuterol 0.63mg/3ml nebule IH SCH ×4 (02:34→20:13)
[2022-08-26] MEDS: methylPREDNISolone sod succ 125mg/2ml vial IV SCH ×4 (02:55→20:02)
[2022-08-26 05:51] LABS: BASOPHILS % (AUTO) 0.2 % (0-1); EOSINOPHILS % (AUTO) 0.1 % (0-6); HEMOGLOBIN 10.5 g/dl (12.0-16.0); LYMPHOCYTES # (AUTO) 0.3 X10'3 (1.1-4.8); MEAN CORPUSCULAR HEMOGLOBIN 24.3 PG (27.0-31.0); MEAN CORPUSCULAR HGB CONC 30.3 g/dL (33.0-36.5); MONOCYTES # (AUTO) 0.1 X10'3 (0-0.9); RED BLOOD COUNT 4.32 X10'6 (4.20-5.60)
[2022-08-26 05:52] LABS: HEMATOCRIT 34.7 % (35.0-45.0); LYMPHOCYTES % (AUTO) 3.7 % (21-51); MEAN CORPUSCULAR VOLUME 80.4 FL (78-98); MEAN PLATELET VOLUME 7.7 FL (7.4-10.4); NEUTROPHILS # (AUTO) 7.7 X10'3 (1.8-7.7); PLATELET COUNT 461 X10'3 (140-440); RED CELL DISTRIBUTION WIDTH 18.5 % (11.5-14.5); WHITE BLOOD COUNT 8.1 X10'3 (4.5-11.0)
[2022-08-26 05:57] LABS: ALANINE AMINOTRANSFERASE 20 U/L (12-78); ALBUMIN 2.4 G/DL (3.4-5.0); ALBUMIN/GLOBULIN RATIO 0.5 (1.1-1.5); ALKALINE PHOSPHATASE 146 IU/L (46-116); ANION GAP 9 (8-16); ASPARTATE AMINO TRANSFERASE 14 U/L (10-37); BILIRUBIN,TOTAL 0.2 MG/DL (0.1-1.0); BLOOD UREA NITROGEN 40 MG/DL (7-18); BUN/CREATININE RATIO 21.5 (6.6-38.0); CALCIUM 8.7 MG/DL (8.5-10.1); CHLORIDE 108 MMOL/L (99-107); CREATININE 1.86 MG/DL (0.40-0.90); GLUCOSE 121 MG/DL (70-104); MAGNESIUM 2.6 MG/DL (1.5-2.4); POTASSIUM 5.4 MMOL/L (3.5-5.1); SODIUM 146 MMOL/L (135-145); TOTAL CARBON DIOXIDE 28.7 MMOL/L (24-32); TOTAL PROTEIN 7.6 G/DL (6.4-8.2); eGFR 27 ML/MIN
[2022-08-26] MEDS: K and/or MAG REPLACEMENT MC SCH ×2 (08:00→20:00)
[2022-08-26 09:00] VITALS: BP 144/85
[2022-08-26 11:00] VITALS: BP 140/82
[2022-08-26] MEDS: docusate sod 100mg capsule PO SCH ×2 (11:28→20:06)
[2022-08-26] MEDS: heparin, porcine 5000 units/ml vial SQ SCH ×2 (11:28→20:05)
[2022-08-26] MEDS: metoprolol tartrate 25mg tablet PO SCH ×2 (11:29→20:07)
--- NOTE | 2022-08-26 11:48 | NUR ---
PAGER ID: [phone] MESSAGE: CASSIDY ON [email or web address], CAN I PLACE ABG FOR [place] IN 4020? THX. (60 character message out of a maximum of 240) CLOSE [X] SEND ANOTHER PAGE Thank you for visiting [facility] promotional table spacer promotional table spacer
[2022-08-26 12:30] LABS: ABG BASE EXCESS -0.2 mmol/L (-2.0-2.0); ABG HCO3 28.9 mmol/L (22.0-26.0); ABG OXYGEN SATURATION 95.8 % (94-97); ABG PCO2 (T) 72.3 mmHg (32.0-45.0); ABG PO2 (T) 85.9 mmHg (75.0-100.0); ALLEN'S TEST POSITIVE; FCOHb 0.2 % (0.0-3.9); FMetHb 0.2 % (0.0-1.5); FO2Hb 95.4 % (94-97); RESPIRATORY RATE 12 b/min; TIDAL VOLUME 745 mL; TOTAL HEMOGLOBIN 11.3 G/dl (12.0-16.0)
[2022-08-26 14:00] VITALS: BP 151/68
--- NOTE | 2022-08-26 17:30 | NUR ---
ASSISTED PT WITH TOILETING AND SMALL SNACK. PT VERBALIZED FRUSTRATION THAT SHE HAS TO BE ON BIPAP AND CANNOT TAKE NARCOTICS FOR PAIN. ACKNOWLEDGED PT'S FRUSTRATION. PT ASKED TO TURN ON TV AND GOT REDIRECTED AND LOOKS MORE COMFORTABLE AND RELAXED WATCHING TV.
[2022-08-26 18:00] VITALS: BP 126/64
[2022-08-26 20:29] LABS: ABG BASE EXCESS 0.5 mmol/L (-2.0-2.0); ABG HCO3 28.2 mmol/L (22.0-26.0); ABG OXYGEN SATURATION 94.3 % (94-97); ABG PCO2 (T) 60.7 mmHg (32.0-45.0); ABG PO2 (T) 73.1 mmHg (75.0-100.0); ALLEN'S TEST POSITIVE; FMetHb 0.3 % (0.0-1.5); TOTAL HEMOGLOBIN 11.5 G/dl (12.0-16.0)
[2022-08-26] MEDS: acetaminophen 325mg tablet PO PRN (20:52)
[2022-08-26 22:07] VITALS: BP 109/49
[2022-08-27 02:00] VITALS: BP 126/64
[2022-08-27] MEDS: levalbuterol 0.63mg/3ml nebule IH SCH ×4 (02:31→19:38)
[2022-08-27] MEDS: methylPREDNISolone sod succ 125mg/2ml vial IV SCH ×4 (02:56→19:40)
[2022-08-27 07:00] VITALS: BP 117/54
[2022-08-27 07:31] LABS: BASOPHILS % (AUTO) 0.1 % (0-1); EOSINOPHILS % (AUTO) 0 % (0-6); LYMPHOCYTES # (AUTO) 0.3 X10'3 (1.1-4.8); MEAN PLATELET VOLUME 7.8 FL (7.4-10.4); MONOCYTES # (AUTO) 0.1 X10'3 (0-0.9); MONOCYTES % (AUTO) 1.8 % (2-12); NEUTROPHILS # (AUTO) 5.5 X10'3 (1.8-7.7); NEUTROPHILS % (AUTO) 93.1 % (42-75); PLATELET COUNT 422 X10'3 (140-440); WHITE BLOOD COUNT 5.9 X10'3 (4.5-11.0)
[2022-08-27 07:49] LABS: ALANINE AMINOTRANSFERASE 17 U/L (12-78); ALBUMIN 2.3 G/DL (3.4-5.0); ALBUMIN/GLOBULIN RATIO 0.5 (1.1-1.5); ALKALINE PHOSPHATASE 121 IU/L (46-116); ANION GAP 9 (8-16); ASPARTATE AMINO TRANSFERASE 10 U/L (10-37); BILIRUBIN,TOTAL 0.2 MG/DL (0.1-1.0); BLOOD UREA NITROGEN 58 MG/DL (7-18); CALCIUM 8.7 MG/DL (8.5-10.1); CHLORIDE 109 MMOL/L (99-107); CREATININE 1.61 MG/DL (0.40-0.90); GLUCOSE 112 MG/DL (70-104); MAGNESIUM 2.8 MG/DL (1.5-2.4); POTASSIUM 5.3 MMOL/L (3.5-5.1); SODIUM 148 MMOL/L (135-145); TOTAL CARBON DIOXIDE 29.9 MMOL/L (24-32); eGFR 32 ML/MIN
[2022-08-27] MEDS: K and/or MAG REPLACEMENT MC SCH ×2 (08:00→19:02)
[2022-08-27 08:02] LABS: HEMOGLOBIN 10.5 g/dl (12.0-16.0); RED BLOOD COUNT 4.27 X10'6 (4.20-5.60)
[2022-08-27 08:03] LABS: HEMATOCRIT 33.2 % (35.0-45.0); MEAN CORPUSCULAR HEMOGLOBIN 24.7 PG (27.0-31.0); MEAN CORPUSCULAR HGB CONC 31.8 g/dL (33.0-36.5); MEAN CORPUSCULAR VOLUME 77.8 FL (78-98); RED CELL DISTRIBUTION WIDTH 17.9 % (11.5-14.5)
--- NOTE | 2022-08-27 08:08 | NUR ---
ABG ordered for 0800 this AM, however pt is refusing. She is alert and oriented. SVN tx given inline with bipap, then bipap removed so pt can eat. Placed on 3 lpm O2. Will cont to monitor.
[2022-08-27] MEDS: heparin, porcine 5000 units/ml vial SQ SCH ×2 (08:52→19:41)
[2022-08-27] MEDS: docusate sod 100mg capsule PO SCH ×2 (08:52→19:41)
[2022-08-27] MEDS: acetaminophen 325mg tablet PO PRN ×2 (08:52→16:13)
[2022-08-27] MEDS: metoprolol tartrate 25mg tablet PO SCH ×2 (08:53→19:40)
[2022-08-27 13:00] VITALS: BP 144/44
[2022-08-27] MEDS: normal saline 1000ml 1,000 ML IV SCH (14:55)
[2022-08-27 18:00] VITALS: BP 133/62
[2022-08-27 22:21] VITALS: BP 124/53
[2022-08-28] MEDS: methylPREDNISolone sod succ 125mg/2ml vial IV SCH ×4 (01:30→19:17)
[2022-08-28] MEDS: levalbuterol 0.63mg/3ml nebule IH SCH ×4 (01:55→20:35)
[2022-08-28 02:42] VITALS: BP 101/55
[2022-08-28 06:49] LABS: BASOPHILS % (AUTO) 0 % (0-1); EOSINOPHILS % (AUTO) 0 % (0-6); LYMPHOCYTES # (AUTO) 0.2 X10'3 (1.1-4.8); LYMPHOCYTES % (AUTO) 3.3 % (21-51); MEAN PLATELET VOLUME 7.9 FL (7.4-10.4); MONOCYTES # (AUTO) 0.1 X10'3 (0-0.9); MONOCYTES % (AUTO) 1.6 % (2-12); NEUTROPHILS # (AUTO) 5.6 X10'3 (1.8-7.7); NEUTROPHILS % (AUTO) 95.1 % (42-75); PLATELET COUNT 377 X10'3 (140-440); WHITE BLOOD COUNT 5.9 X10'3 (4.5-11.0)
[2022-08-28 07:00] VITALS: BP 152/85
[2022-08-28 07:36] LABS: HEMATOCRIT 33.5 % (35.0-45.0); HEMOGLOBIN 10.3 g/dl (12.0-16.0); RED BLOOD COUNT 4.27 X10'6 (4.20-5.60)
[2022-08-28 07:37] LABS: MEAN CORPUSCULAR HEMOGLOBIN 24.1 PG (27.0-31.0); MEAN CORPUSCULAR HGB CONC 30.9 g/dL (33.0-36.5); MEAN CORPUSCULAR VOLUME 78.3 FL (78-98); RED CELL DISTRIBUTION WIDTH 17.6 % (11.5-14.5)
[2022-08-28 07:39] LABS: ALANINE AMINOTRANSFERASE 16 U/L (12-78); ALBUMIN 2.3 G/DL (3.4-5.0); ALBUMIN/GLOBULIN RATIO 0.5 (1.1-1.5); ALKALINE PHOSPHATASE 110 IU/L (46-116); ANION GAP 11 (8-16); ASPARTATE AMINO TRANSFERASE 11 U/L (10-37); BILIRUBIN,TOTAL 0.2 MG/DL (0.1-1.0); BLOOD UREA NITROGEN 70 MG/DL (7-18); BUN/CREATININE RATIO 44.3 (6.6-38.0); CALCIUM 8.6 MG/DL (8.5-10.1); CHLORIDE 107 MMOL/L (99-107); CREATININE 1.58 MG/DL (0.40-0.90); GLUCOSE 143 MG/DL (70-104); MAGNESIUM 2.8 MG/DL (1.5-2.4); POTASSIUM 5.9 MMOL/L (3.5-5.1); SODIUM 146 MMOL/L (135-145); TOTAL CARBON DIOXIDE 28.1 MMOL/L (24-32); TOTAL PROTEIN 6.9 G/DL (6.4-8.2); eGFR 33 ML/MIN
[2022-08-28] MEDS: K and/or MAG REPLACEMENT MC SCH (08:00)
--- NOTE | 2022-08-28 10:30 | NUR ---
PT A "HARD STICK". PAGED PICC NURSE: "PCU ROOM 3006 NEEDS IV ACCESS PLEASE. THNKS"
[2022-08-28] MEDS: docusate sod 100mg capsule PO SCH (10:38)
[2022-08-28] MEDS: acetaminophen 325mg tablet PO PRN ×2 (10:39→16:14)
[2022-08-28] MEDS: metoprolol tartrate 25mg tablet PO SCH ×2 (10:40→19:17)
[2022-08-28] MEDS: heparin, porcine 5000 units/ml vial SQ SCH ×2 (10:40→19:17)
[2022-08-28 13:00] VITALS: BP 145/72
--- NOTE | 2022-08-28 13:38 | NUR ---
PRESSURE ULCER EDUCATION: DEFINITION: A pressure ulcer is an area of skin that breaks down when you stay in one position too long. The constant pressure against the skin reduces the blood flow to that area and the affected tissue dies. CAUSES: "Being bedridden or in a wheelchair "Fragile skin "Having a chronic condition, such as diabetes or vascular disease "Inability to move certain parts of your body without assistance "Older age "Incontinence of urine or stool SYMPTOMS: "A reddened area that DOES NOT turn white when pressed on - this can be the beginning of a pressure ulcer "A blister, deep sore or a crater - these can be advanced pressure ulcers FIRST AID: "Relieve the pressure on this area "Keep the area clean and dry "Call your primary doctor if you see any of the above symptoms "DO NOT massage the area "DO NOT use a donut shaped or ring shaped pillow- these actually interfere with the blood flow and cause complications PREVENTION: "Check for pressure ulcers everyday "Change position at least every two hours to relieve pressure "Use items that help relieve pressure- pillows, sheepskin, foam padding, and powders. "Keep skin clean and dry "Eat healthy well balanced meals "Exercise daily IF YOU SEE ANY OF THESE SYMPTOMS WHILE IN THE HOSPITAL - TELL YOUR NURSE IMMEDIATELY. IF YOU SEE ANY OF THESE SYMPTOMS WHILE AT HOME OR HAVE ANY QUESTIONS OR CONCERNS ABOUT PRESSURE ULCERS - CALL YOUR PRIMARY DOCTOR IMMEDIATELY. Addendum: 08/28/22 at 1338 by Madison Yepez LVN Amended: Links added.
[2022-08-28] MEDS ORDERED: calcium gluconate inj. 1 GM in normal saline 100ml IV soln 100 ML IV ONE (16:15)
[2022-08-28] MEDS ORDERED: sodium polystyrene sulfonate 15gm/60ml oral suspension PO ONE (16:15)
[2022-08-28] MEDS ORDERED: CALCIUM GLUC 1gm/50ml NACL,iso 50 ML IV ONE (16:48)
[2022-08-28 18:00] VITALS: BP 100/48
[2022-08-28 23:21] VITALS: BP 158/76
[2022-08-29] VITALS (7 sets, daily range): BP systolic 116–180; BP diastolic 61–81
[2022-08-29] MEDS: methylPREDNISolone sod succ 125mg/2ml vial IV SCH ×4 (01:03→19:11)
[2022-08-29] MEDS: levalbuterol 0.63mg/3ml nebule IH SCH ×4 (02:58→20:16)
--- NOTE | 2022-08-29 06:15 | NUR ---
Patient in room PCU 3009. I have received report from Hilario GOMEZ and had the opportunity to ask questions and assume patient care. Will follow care of PT with MARANDA MADDEN. Bedside report completed. Pt sleeping. No distress, Call light in reach. Addendum: 08/29/22 at 0648 by Josephine Ramirez RN Amended: Links added.
[2022-08-29 06:30] LABS: BASOPHILS % (AUTO) 0.2 % (0-1); EOSINOPHILS % (AUTO) 0 % (0-6); LYMPHOCYTES # (AUTO) 0.2 X10'3 (1.1-4.8); LYMPHOCYTES % (AUTO) 2.9 % (21-51); MEAN PLATELET VOLUME 7.9 FL (7.4-10.4); MONOCYTES # (AUTO) 0.2 X10'3 (0-0.9); MONOCYTES % (AUTO) 3.4 % (2-12); NEUTROPHILS % (AUTO) 93.5 % (42-75); PLATELET COUNT 358 X10'3 (140-440); WHITE BLOOD COUNT 5.4 X10'3 (4.5-11.0)
--- NOTE | 2022-08-29 06:35 | NUR ---
Patient in room PCU 3009. I have received report from Hilario GOMEZ and had the opportunity to ask questions and assume patient care. Bed side report given. Call light within reach. Addendum: 08/29/22 at 0644 by Suresh Cedeño LVN Amended: Links added.
[2022-08-29 06:58] LABS: ALANINE AMINOTRANSFERASE 27 U/L (12-78); ALBUMIN 2.4 G/DL (3.4-5.0); ALBUMIN/GLOBULIN RATIO 0.5 (1.1-1.5); ALKALINE PHOSPHATASE 109 IU/L (46-116); ANION GAP 7 (8-16); ASPARTATE AMINO TRANSFERASE 15 U/L (10-37); BILIRUBIN,TOTAL 0.2 MG/DL (0.1-1.0); BLOOD UREA NITROGEN 64 MG/DL (7-18); BUN/CREATININE RATIO 39.3 (6.6-38.0); CALCIUM 8.6 MG/DL (8.5-10.1); CHLORIDE 107 MMOL/L (99-107); CREATININE 1.63 MG/DL (0.40-0.90); GLUCOSE 195 MG/DL (70-104); MAGNESIUM 2.8 MG/DL (1.5-2.4); POTASSIUM 5.8 MMOL/L (3.5-5.1); SODIUM 147 MMOL/L (135-145); TOTAL CARBON DIOXIDE 33.2 MMOL/L (24-32); TOTAL PROTEIN 6.9 G/DL (6.4-8.2); eGFR 31 ML/MIN
--- NOTE | 2022-08-29 07:08 | NUR ---
Dr. Hamlin paged. PAGER ID: [phone] MESSAGE: [phone] A- Maria De Jesus. Pt has a K 5.8, MG 2.8. Pt received yesterday Kayexalate, calcium gluconate. Kymberly Cedeño LVN
[2022-08-29] MEDS ORDERED: sodium polystyrene sulfonate 15gm/60ml oral suspension PO ONE ×2 (07:15→13:55)
[2022-08-29 07:31] LABS: HEMATOCRIT 32.1 % (35.0-45.0); HEMOGLOBIN 9.9 g/dl (12.0-16.0); MEAN CORPUSCULAR VOLUME 78.3 FL (78-98)
[2022-08-29 07:33] LABS: MEAN CORPUSCULAR HEMOGLOBIN 24.3 PG (27.0-31.0); RED CELL DISTRIBUTION WIDTH 17.5 % (11.5-14.5)
[2022-08-29 07:54] LABS: ANISOCYTOSIS 1+; MICROCYTOSIS 1+; PLATELET ESTIMATE NORMAL
[2022-08-29 07:55] LABS: HYPOCHROMASIA 1+; STOMATOCYTES 1+
[2022-08-29] MEDS: metoprolol tartrate 25mg tablet PO SCH ×2 (08:15→19:11)
[2022-08-29] MEDS: heparin, porcine 5000 units/ml vial SQ SCH ×2 (08:16→19:12)
--- NOTE | 2022-08-29 11:47 | NUR ---
Patient IV became disoldged on LFA. Attempted x 2 IV 22g to RFA. Unsuccessful. PICC Nurse Paged for follow up.
[2022-08-29 12:18] LABS: ALANINE AMINOTRANSFERASE 32 U/L (12-78); ALBUMIN 2.4 G/DL (3.4-5.0); ALBUMIN/GLOBULIN RATIO 0.5 (1.1-1.5); ALKALINE PHOSPHATASE 107 IU/L (46-116); ANION GAP 6 (8-16); ASPARTATE AMINO TRANSFERASE 22 U/L (10-37); BILIRUBIN,TOTAL 0.2 MG/DL (0.1-1.0); BLOOD UREA NITROGEN 62 MG/DL (7-18); BUN/CREATININE RATIO 41.1 (6.6-38.0); CALCIUM 8.4 MG/DL (8.5-10.1); CHLORIDE 107 MMOL/L (99-107); CREATININE 1.51 MG/DL (0.40-0.90); GLUCOSE 130 MG/DL (70-104); POTASSIUM 5.8 MMOL/L (3.5-5.1); SODIUM 148 MMOL/L (135-145); TOTAL CARBON DIOXIDE 34.7 MMOL/L (24-32); TOTAL PROTEIN 6.8 G/DL (6.4-8.2); eGFR 34 ML/MIN
--- NOTE | 2022-08-29 13:52 | NUR ---
Dr. Hamlin notified, PAGER ID: [phone] MESSAGE: [id number] -Shuefwd. CMP results have been completed.
[2022-08-29] MEDS: acetaminophen 325mg tablet PO PRN (14:35)
--- NOTE | 2022-08-29 16:48 | NUR ---
Patient had 4 soft brown bm this shift. Candice care provided. Barrier cream in place Addendum: 08/29/22 at 1649 by Suresh Cedeño LVN Amended: Links added.
[2022-08-29] MEDS: normal saline 1000ml 1,000 ML IV SCH (16:57)
--- NOTE | 2022-08-29 18:03 | NUR ---
I have reviewed and agree with all interventions, assessments performed and documented by Suresh MADDEN. Addendum: 08/29/22 at 1803 by Josephine Ramirez RN Amended: Links added.
--- NOTE | 2022-08-29 18:06 | NUR ---
Problems reprioritized. Patient report given, questions answered & plan of care reviewed with Hilario GOMEZ. Bed side report given. Patient eating dinner. Call light within reach. No distress noted. Addendum: 08/29/22 at 1807 by Suresh Cedeño LVN Amended: Links added.
[2022-08-30] MEDS: methylPREDNISolone sod succ 125mg/2ml vial IV SCH ×4 (01:26→19:53)
[2022-08-30] MEDS: levalbuterol 0.63mg/3ml nebule IH SCH ×4 (02:20→20:08)
[2022-08-30 03:12] VITALS: BP 102/48
--- NOTE | 2022-08-30 06:20 | NUR ---
Patient in room PCU 3009. I have received report from Hilario GOMEZ and had the opportunity to ask questions and assume patient care. Will follow care of pt with Suresh MADDEN. Addendum: 08/30/22 at 0640 by Josephine Ramirez RN Amended: Links added.
--- NOTE | 2022-08-30 06:34 | NUR ---
Patient in room U 3009. I have received report from Hilario GOMEZ and had the opportunity to ask questions and assume patient care. Bed side report given. Patient sleeping in bed, no distress, HOB elevated, breathing on oxygen 3 LPM, call light within reach. Bed in lowest position Addendum: 08/30/22 at 0635 by Suresh Cedeño LVN Amended: Links added.
[2022-08-30] MEDS: heparin, porcine 5000 units/ml vial SQ SCH ×2 (07:24→19:53)
[2022-08-30] MEDS: metoprolol tartrate 25mg tablet PO SCH ×2 (07:24→19:53)
[2022-08-30 07:27] LABS: BASOPHILS % (AUTO) 0 % (0-1); EOSINOPHILS % (AUTO) 0 % (0-6); MONOCYTES # (AUTO) 0.2 X10'3 (0-0.9); NEUTROPHILS # (AUTO) 4.6 X10'3 (1.8-7.7); WHITE BLOOD COUNT 4.9 X10'3 (4.5-11.0)
[2022-08-30 07:31] VITALS: BP 127/68
[2022-08-30 07:35] LABS: LYMPHOCYTES # (AUTO) 0.1 X10'3 (1.1-4.8); LYMPHOCYTES % (AUTO) 2.7 % (21-51); MONOCYTES % (AUTO) 3.1 % (2-12); NEUTROPHILS % (AUTO) 94.2 % (42-75); PLATELET COUNT 285 X10'3 (140-440)
[2022-08-30 08:09] LABS: HEMATOCRIT 32.4 % (35.0-45.0); HEMOGLOBIN 9.9 g/dl (12.0-16.0); RED BLOOD COUNT 4.01 X10'6 (4.20-5.60)
[2022-08-30 08:10] LABS: MEAN CORPUSCULAR HEMOGLOBIN 24.6 PG (27.0-31.0); MEAN CORPUSCULAR HGB CONC 30.6 g/dL (33.0-36.5); MEAN CORPUSCULAR VOLUME 80.7 FL (78-98); RED CELL DISTRIBUTION WIDTH 17.4 % (11.5-14.5)
[2022-08-30 08:32] LABS: ALANINE AMINOTRANSFERASE 28 U/L (12-78); ALBUMIN 2.2 G/DL (3.4-5.0); ALBUMIN/GLOBULIN RATIO 0.6 (1.1-1.5); ALKALINE PHOSPHATASE 96 IU/L (46-116); ANION GAP 7 (8-16); ASPARTATE AMINO TRANSFERASE 14 U/L (10-37); BILIRUBIN,TOTAL 0.3 MG/DL (0.1-1.0); BLOOD UREA NITROGEN 57 MG/DL (7-18); BUN/CREATININE RATIO 37.3 (6.6-38.0); CALCIUM 8.1 MG/DL (8.5-10.1); CHLORIDE 108 MMOL/L (99-107); CREATININE 1.53 MG/DL (0.40-0.90); GLUCOSE 272 MG/DL (70-104); POTASSIUM 4.1 MMOL/L (3.5-5.1); SODIUM 148 MMOL/L (135-145); TOTAL CARBON DIOXIDE 33.4 MMOL/L (24-32); TOTAL PROTEIN 6.1 G/DL (6.4-8.2); eGFR 34 ML/MIN
--- NOTE | 2022-08-30 09:51 | NUR ---
Initial: Pt admit for BLE cellulitis and acute respiratory failure with COPD exacerbation. Pt initially on a heart healthy diet and eating poorly, documented with mostly 0% PO intake on 08/26, however PO intake has improved to 100% all following meals. Noted renal was added to current diet order which is appropriate at this time in view of elevated serum Na, K, and mag. Recommend removing renal restriction as renal function improves. LBM 08/29. No nutrition intervention implemented at this time. Will continue to follow. Recommendations: 1) Continue heart healthy renal diet; remove renal restriction as renal function improves 2) Monitor need for additional food for satiety 3) Bowel care PRN 4) Weekly scaled weights Addendum: 08/30/22 at [address] Amended: Links added.
[2022-08-30 11:00] VITALS: BP 114/68
--- NOTE | 2022-08-30 13:11 | NUR ---
Dr. Hamlin notified: MESSAGE: [id number] -[place]. Pt has worsening bilateral breast, abd fold, and bilateral groin skin redness noted. Request an order for Nystatin powder. Kymberly Cedeño LVN
[2022-08-30 15:00] VITALS: BP 146/62
[2022-08-30] MEDS: acetaminophen 325mg tablet PO PRN (16:11)
[2022-08-30 18:00] VITALS: BP 142/46
--- NOTE | 2022-08-30 18:00 | NUR ---
I have reviewed and agree with all interventions, assessments performed and documented by Suresh MADDEN.Problems reprioritized. Patient report given, questions answered & plan of care reviewed with Hilario GOMEZ. Bedside report completed. Addendum: 08/30/22 at 1801 by Josephine Ramirez RN Amended: Links added.
--- NOTE | 2022-08-30 18:13 | NUR ---
Problems reprioritized. Patient report given, questions answered & plan of care reviewed with Hilario GOMEZ. Bedside report given. Pt resting in bed, HOB elevated semifowlers, Call light within reach. Addendum: 08/30/22 at 1814 by Suresh Cedeño LVN Amended: Links added.
[2022-08-30] MEDS: nystatin 15 GM powder TP SCH (20:01)
[2022-08-30 22:44] VITALS: BP 140/53
[2022-08-31] MEDS: methylPREDNISolone sod succ 125mg/2ml vial IV SCH ×2 (01:11→09:38)
[2022-08-31 02:48] VITALS: BP 155/51
[2022-08-31] MEDS: levalbuterol 0.63mg/3ml nebule IH SCH ×4 (02:48→20:40)
--- NOTE | 2022-08-31 04:27 | NUR ---
PT REFUSING TO WEAR HER BIPAP, SHE TORE IT OFF HER FACE. HAVE PUT HER OXYGEN VIA NC ON AT THIS TIME AND TOLD HER NURSE ABOUT IT.
[2022-08-31] MEDS: nystatin 15 GM powder TP SCH ×3 (08:00→21:28)
[2022-08-31] MEDS: acetaminophen 325mg tablet PO PRN ×2 (09:38→15:00)
[2022-08-31] MEDS: metoprolol tartrate 25mg tablet PO SCH ×2 (09:39→21:19)
[2022-08-31] MEDS: heparin, porcine 5000 units/ml vial SQ SCH ×2 (09:39→21:19)
[2022-08-31 13:00] VITALS: BP 148/65
[2022-08-31 18:30] VITALS: BP 129/52
[2022-08-31 22:00] VITALS: BP 136/52
[2022-09-01 02:01] VITALS: BP 114/52
[2022-09-01] MEDS: acetaminophen 325mg tablet PO PRN ×3 (03:18→22:25)
[2022-09-01] MEDS: levalbuterol 0.63mg/3ml nebule IH SCH ×4 (03:38→20:04)
--- NOTE | 2022-09-01 06:37 | NUR ---
Problems reprioritized. Patient report given, questions answered & plan of care reviewed with JASON JARAMILLO.
[2022-09-01] MEDS: predniSONE 20 mg tablet PO SCH (07:33)
[2022-09-01] MEDS: metoprolol tartrate 25mg tablet PO SCH ×2 (07:34→19:15)
[2022-09-01 07:43] LABS: FERRITIN 18 NG/ML (8-252)
[2022-09-01] MEDS: nystatin 15 GM powder TP SCH ×3 (08:00→21:17)
[2022-09-01] MEDS: heparin, porcine 5000 units/ml vial SQ SCH ×2 (08:02→19:17)
[2022-09-01 08:09] LABS: % IRON SATURATION 16 % (11-46); IRON 59 UG/DL (49-151); TOTAL IRON BINDING CAPACITY 377 UG/DL (259-388)
[2022-09-01 12:54] LABS: OCCULT BLOOD STOOL NEGATIVE (Neg)
[2022-09-01 18:00] VITALS: BP 152/55
--- NOTE | 2022-09-01 18:01 | NUR ---
AGREE WITH SALES ENGINEER ASSESSMENT
--- NOTE | 2022-09-01 18:30 | NUR ---
Patient in room PCU 3009. I have received report from gerson and had the opportunity to ask questions and assume patient care.
[2022-09-02 02:00] VITALS: BP 151/72
[2022-09-02] MEDS: levalbuterol 0.63mg/3ml nebule IH SCH ×2 (02:44→08:36)
[2022-09-02 06:00] VITALS: BP 138/71
--- NOTE | 2022-09-02 06:18 | NUR ---
Patient in room PCU 3009. I have received report from Christo MADDEN and had the opportunity to ask questions and assume patient care.
[2022-09-02 07:35] VITALS: BP_SYST 138
[2022-09-02] MEDS: predniSONE 20 mg tablet PO SCH (07:35)
[2022-09-02] MEDS: metoprolol tartrate 25mg tablet PO SCH (07:35)
[2022-09-02] MEDS: heparin, porcine 5000 units/ml vial SQ SCH (07:36)
[2022-09-02] MEDS: nystatin 15 GM powder TP SCH ×2 (08:00→12:31)
--- NOTE | 2022-09-02 12:30 | NUR ---
PAGER ID: [phone] MESSAGE: [phone] Kymberly Pretty Patient has back pain. Patient is asking for Tylenol, however, in chart its only for fever. May patient have Tylenol for pain? Please advise? Thank you Shavon MADDEN
[2022-09-02] MEDS ORDERED: acetaminophen 325mg tablet PO PRN (12:35)
--- NOTE | 2022-09-02 14:07 | NUR ---
Patient discharged to [facility]. Called Report to [facility]. [employer] and personnel transferred patient to [facility]. All patient belongings were gathered and sent with patient. Ok to leave Patient IV in per [facility] from [facility]. Patient was stable for transfer, alert and appropriate. Patient left with [employer] and personnel in [facility].
--- NOTE | 2022-09-02 16:26 | NUR ---
MARYANNE Medication Administration: For this medication-pass time frame, all medication were reviewed, dispensed, administered and documented per hospital policy by MARYANNE MILLER.
--- NOTE | 2022-09-02 16:26 | NUR ---
DRILL INSTRUCTOR documentation: I have reviewed and agree with all interventions, assessments performed and documented by MARYANNE MILLER.
== END 2022-09-02 13:51 | DRG 133 ==
LOC: ER 03:10 → ED HOLD 05:23 → PCU 3S 08-26 08:05
PROVIDERS: ADMIT Internal Medicine; ATTEND Family Medicine
PROC: 5A09457 Assistance with Respiratory Ventilation, 24-96 Consecutive Hours, Continuous Positive Airway Pressure (ICD-10-PCS; principal; 2022-08-25)
PROC: 5A09357 Assistance with Respiratory Ventilation, Less than 24 Consecutive Hours, Continuous Positive Airway Pressure (ICD-10-PCS; 2022-08-28)
PROC: 5A09357 Assistance with Respiratory Ventilation, Less than 24 Consecutive Hours, Continuous Positive Airway Pressure (ICD-10-PCS; 2022-08-29)
PROC: 5A09357 Assistance with Respiratory Ventilation, Less than 24 Consecutive Hours, Continuous Positive Airway Pressure (ICD-10-PCS; 2022-08-30)
PROC: 5A09357 Assistance with Respiratory Ventilation, Less than 24 Consecutive Hours, Continuous Positive Airway Pressure (ICD-10-PCS; 2022-08-31)
DX: J96.01 Acute respiratory failure with hypoxia (principal); E87.29 Other acidosis; C43.39 Malignant melanoma of other parts of face; L03.115 Cellulitis of right lower limb; F25.9 Schizoaffective disorder, unspecified; I50.32 Chronic diastolic (congestive) heart failure; I13.0 Hypertensive heart and chronic kidney disease with heart failure and stage 1 through stage 4 chronic kidney disease, or unspecified chronic kidney disease; Z20.822 Contact with and (suspected) exposure to COVID-19; I48.20 Chronic atrial fibrillation, unspecified; D64.9 Anemia, unspecified; E87.5 Hyperkalemia; J44.1 Chronic obstructive pulmonary disease with (acute) exacerbation; N18.30 Chronic kidney disease, stage 3 unspecified; L03.116 Cellulitis of left lower limb; E66.01 Morbid (severe) obesity due to excess calories; I87.8 Other specified disorders of veins; Z86.711 Personal history of pulmonary embolism; Z86.73 Personal history of transient ischemic attack (TIA), and cerebral infarction without residual deficits; Z68.36 Body mass index [BMI] 36.0-36.9, adult; Z88.8 Allergy status to other drugs, medicaments and biological substances; Z79.899 Other long term (current) drug therapy; Z91.199 Patient's noncompliance with other medical treatment and regimen due to unspecified reason
CPT/HCPCS: 36415; 36600; 71045; 80053; 82272; 82607; 82728; 82803; 83540; 83550; 83605; 83735; 83880; 84132; 84484; 85007; 85008; 85018; 85025; 85610; 87040; 87081; 87811; 93005; 94640; 94660; 94760; 96361; 96365; 96375; 97110; 97116; 97161; 97530; 97535; 99285; A4615; A6250; A6253; A6260; A6446; A6449; G0378; J0360; J0610; J0696; J1644; J1940; J2270; J2920; J2930; J3490; J7030; J7040; J7512; J7614

== ENCOUNTER 2022-11-02 18:03 | Emergency (ER) | payer MEDICAID ==
[~2022-11-02] VITALS: Ht 165.1 cm; Wt 95.5 kg
[~2022-11-02 18:03] MED LIST changes: -AMOX-580 PO; -ATR0.5NEB IH; -FURO20TA4 PO; -LISI10TA27 PO; -LOSA50TA64 PO; -METO50TA7 PO; +NO HOME MEDS; -PALI1.5T2 PO
[2022-11-02 18:42] LABS: BASOPHILS % (AUTO) 0.5 % (0-1); EOSINOPHILS # (AUTO) 0.1 X10'3 (0-0.9); EOSINOPHILS % (AUTO) 0.7 % (0-6); LYMPHOCYTES # (AUTO) 1.5 X10'3 (1.1-4.8); MEAN PLATELET VOLUME 7.6 FL (7.4-10.4); MONOCYTES # (AUTO) 0.9 X10'3 (0-0.9); MONOCYTES % (AUTO) 9.6 % (2-12); NEUTROPHILS # (AUTO) 7.2 X10'3 (1.8-7.7); NEUTROPHILS % (AUTO) 74.2 % (42-75); PLATELET COUNT 491 X10'3 (140-440); WHITE BLOOD COUNT 9.7 X10'3 (4.5-11.0)
[2022-11-02] MEDS ORDERED: albuterol 2.5 MG/3 ML nebule NEB ONE (18:45)
[2022-11-02] MEDS ORDERED: furosemide 10 MG/1 ML 10ml inj IV ONE (18:45)
[2022-11-02 18:57] LABS: ALANINE AMINOTRANSFERASE 12 U/L (12-78); ALBUMIN 2.7 G/DL (3.4-5.0); ALBUMIN/GLOBULIN RATIO 0.6 (1.1-1.5); ALKALINE PHOSPHATASE 144 IU/L (46-116); ANION GAP 7 (8-16); ASPARTATE AMINO TRANSFERASE 12 U/L (10-37); BILIRUBIN,TOTAL 0.3 MG/DL (0.1-1.0); BLOOD UREA NITROGEN 11 MG/DL (7-18); BUN/CREATININE RATIO 9.8 (6.6-38.0); CALCIUM 8.8 MG/DL (8.5-10.1); CHLORIDE 107 MMOL/L (99-107); CREATININE 1.12 MG/DL (0.40-0.90); GLUCOSE 120 MG/DL (70-104); POTASSIUM 3.9 MMOL/L (3.5-5.1); SODIUM 144 MMOL/L (135-145); TOTAL CARBON DIOXIDE 30.2 MMOL/L (24-32); eGFR 49 ML/MIN
[2022-11-02 19:04] LABS: MAGNESIUM 2.2 MG/DL (1.5-2.4)
[2022-11-02 19:15] LABS: HEMATOCRIT 36.3 % (35.0-45.0); HEMOGLOBIN 11.5 g/dl (12.0-16.0); MEAN CORPUSCULAR HEMOGLOBIN 24.8 PG (27.0-31.0); MEAN CORPUSCULAR HGB CONC 31.6 g/dL (33.0-36.5); MEAN CORPUSCULAR VOLUME 78.6 FL (78-98); RED BLOOD COUNT 4.62 X10'6 (4.20-5.60); RED CELL DISTRIBUTION WIDTH 19.7 % (11.5-14.5)
[2022-11-02 19:25] LABS: PLATELET ESTIMATE INCREASED
[2022-11-02 19:26] LABS: ANISOCYTOSIS 2+; MICROCYTOSIS 1+; POLYCHROMASIA FEW
[2022-11-02 19:27] LABS: ELLIPTOCYTES FEW
[2022-11-02] MEDS ORDERED: dexamethasone 4mg/ml inj IV ONE (20:45)
[2022-11-02] MEDS ORDERED: HYDROcodone/acetaminophen 5mg/325mg tablet PO ONE (20:45)
[2022-11-02 21:25] LABS: CLARITY,URINE CLEAR (Clear); COLOR,URINE YELLOW (Yellow); GLUCOSE, URINE NEGATIVE (Neg); KETONES,URINE NEGATIVE (Neg); LEUKOCYTE ESTERASE ,URINE NEGATIVE (Neg); NITRITES, URINE NEGATIVE (Neg); OCCULT BLOOD,URINE NEGATIVE (Neg); PROTEIN,URINE 100 mg/dl (Neg); UROBILINOGEN,URINE 0.2 E.U/dL (0.2-1.0)
[2022-11-02 21:26] LABS: UA COLLECTION TYPE CLN CATCH MIDSTREAM
[2022-11-02 22:04] LABS: BACTERIA,URINE FEW /HPF (Neg); RBC,URINE 0-2 /HPF (0-2); SQUAMOUS EPITHELIAL CELL,UR FEW /LPF (FEW); WBC,URINE NONE SEEN /HPF (0-4)
[2022-11-02] MEDS ORDERED: CEPH500C2 PO (22:20)
[2022-11-02] MEDS ORDERED: SULF1TAB49 PO (22:20)
[2022-11-02] MEDS ORDERED: ALBU8HFA PO (22:21)
[2022-11-02] MEDS ORDERED: ceFAZolin 1GM/D5W- ADD-VANTAGE 50 ML IV ONE (22:30)
[2022-11-02] MEDS ORDERED: vancomycin/NS 1 GM ADD-VANTAGE 250 ML IV ONE (22:30)
[2022-11-02] MEDS ORDERED: OXYGEN NASALCANN (23:46)
--- NOTE | 2022-11-03 01:00 | NUR ---
BED CHANGE . PT STATED SHE FEELS BETTER AND REQUESTED A BRETHING TX. INFORMED
--- NOTE | 2022-11-03 08:46 | NUR ---
Meal tray requested for patient.
--- NOTE | 2022-11-03 10:10 | NUR ---
Patient on O2 nasal cannual, O2 on pulse ox reads 94. When patient is removed from oxygen O2 declines below 88 on pulse ox.
[2022-11-03 13:55] VITALS: BP 134/85
== END 2022-11-03 15:47 | disposition admitted as inpatient to this hospital (09) ==
LOC: ER 18:04
DX: I11.0 Hypertensive heart disease with heart failure (principal); I50.9 Heart failure, unspecified; L03.116 Cellulitis of left lower limb; L03.115 Cellulitis of right lower limb; J44.9 Chronic obstructive pulmonary disease, unspecified; F20.9 Schizophrenia, unspecified; Z60.2 Problems related to living alone; Z88.8 Allergy status to other drugs, medicaments and biological substances; Z79.899 Other long term (current) drug therapy
CPT/HCPCS: 36415; 71045; 80053; 81001; 83605; 83735; 83880; 84145; 84484; 85008; 85025; 87040; 93005; 94640; 96365; 96367; 96375; 99285; J0690; J1100; J1940; J3370; 94760; A5200

== ENCOUNTER 2022-11-07 16:40 | Inpatient (IN) | payer MEDICAID ==
[~2022-11-07] VITALS: Ht 165.1 cm; Wt 102.3 kg
[~2022-11-07 16:40] MED LIST changes: +ALBU8HFA PO; +CEPH500C2 PO; +OXYGEN NASALCANN; +SULF1TAB49 PO
[2022-11-07] MEDS ORDERED: acetaminophen 325mg tablet PO STA (17:41)
[2022-11-07] MEDS ORDERED: vancomycin/NS 1 GM ADD-VANTAGE 250 ML IV ONE (17:45)
[2022-11-07] MEDS ORDERED: furosemide 10 MG/1 ML 10ml inj IV ONE (17:45)
[2022-11-07] MEDS ORDERED: piperacillin/tazo 3.375gm/50ml 50 ML IV ONE (17:45)
[2022-11-07] MEDS ORDERED: morphine 4 MG/ML inj SYRINge IV PRN (17:45)
[2022-11-07 17:46] LABS: BASOPHILS % (AUTO) 0.4 % (0-1); EOSINOPHILS # (AUTO) 0.1 X10'3 (0-0.9); HEMATOCRIT 34.8 % (35.0-45.0); HEMOGLOBIN 10.8 g/dl (12.0-16.0); LYMPHOCYTES # (AUTO) 1.5 X10'3 (1.1-4.8); LYMPHOCYTES % (AUTO) 15.1 % (21-51); MEAN CORPUSCULAR HEMOGLOBIN 25.1 PG (27.0-31.0); MEAN PLATELET VOLUME 7.8 FL (7.4-10.4); MONOCYTES % (AUTO) 9.7 % (2-12); NEUTROPHILS # (AUTO) 7.5 X10'3 (1.8-7.7); NEUTROPHILS % (AUTO) 73.8 % (42-75); PLATELET COUNT 397 X10'3 (140-440); RED BLOOD COUNT 4.29 X10'6 (4.20-5.60); RED CELL DISTRIBUTION WIDTH 19.6 % (11.5-14.5); WHITE BLOOD COUNT 10.2 X10'3 (4.5-11.0)
--- NOTE | 2022-11-07 17:48 | NUR ---
Patient kept saying "to put her on sleep". When I asked her why, she replied to me "I dont' know!" Patient denied suicidal thought currently but admitted she had suicidal thought in the past. Pt denied intention to harm self at this time.
[2022-11-07] MEDS: ondansetron/PF 4mg/2ml inj IV ONE ×2 (18:03→18:14)
[2022-11-07 18:07] LABS: ALANINE AMINOTRANSFERASE 14 U/L (12-78); ALBUMIN 2.6 G/DL (3.4-5.0); ALBUMIN/GLOBULIN RATIO 0.6 (1.1-1.5); ALKALINE PHOSPHATASE 144 IU/L (46-116); ANION GAP 4 (8-16); ASPARTATE AMINO TRANSFERASE 15 U/L (10-37); BILIRUBIN,TOTAL 0.2 MG/DL (0.1-1.0); BLOOD UREA NITROGEN 22 MG/DL (7-18); BUN/CREATININE RATIO 21.2 (6.6-38.0); CALCIUM 8.8 MG/DL (8.5-10.1); CHLORIDE 105 MMOL/L (99-107); CREATININE 1.04 MG/DL (0.40-0.90); ETHANOL < 0.010 GM/DL (0.0-0.010); GLUCOSE 103 MG/DL (70-104); POTASSIUM 4.2 MMOL/L (3.5-5.1); SODIUM 141 MMOL/L (135-145); TOTAL CARBON DIOXIDE 31.8 MMOL/L (24-32); TOTAL PROTEIN 6.8 G/DL (6.4-8.2); eGFR 53 ML/MIN
[2022-11-07 18:57] LABS: C-REACTIVE PROTEIN 3.36 MG/DL (0.0-0.5)
[2022-11-07] MEDS ORDERED: levalbuterol 0.63mg/3ml nebule IH PRN (19:50)
[2022-11-07] MEDS ORDERED: morphine 2 MG/ML inj. syringe IV PRN (19:50)
[2022-11-07] MEDS ORDERED: ondansetron/PF 4mg/2ml inj IV PRN (19:50)
[2022-11-07] MEDS ORDERED: potassium Cl 20 mEq SR tablet PO PRN ×2 (19:50)
[2022-11-07] MEDS ORDERED: magnesium Cl slow-release 64mg tablet PO PRN (19:50)
[2022-11-07] MEDS ORDERED: potassium Cl 40MEQ/1/2NS 520ml 520 ML IV PRN (19:50)
[2022-11-07] MEDS ORDERED: acetaminophen 325mg tablet PO PRN (19:50)
[2022-11-07] MEDS ORDERED: magnesium 4gm in 100ml NS 100 ML IV PRN (19:50)
[2022-11-07] MEDS: furosemide 40mg/4ml inj IV SCH (20:07)
[2022-11-07] MEDS: heparin, porcine 5000 units/ml vial SQ SCH (20:10)
[2022-11-07] MEDS: doxycycline inj 100 MG in normal saline 100ml IV soln 100 ML IV SCH (20:31)
[2022-11-07] MEDS ORDERED: temazepam 15mg capsule PO PRN (21:00)
[2022-11-07] MEDS: levalbuterol 0.63mg/3ml nebule IH SCH (21:13)
[2022-11-07 21:25] LABS: CLARITY,URINE CLEAR (Clear); COLOR,URINE YELLOW (Yellow); GLUCOSE, URINE NEGATIVE (Neg); KETONES,URINE NEGATIVE (Neg); LEUKOCYTE ESTERASE ,URINE NEGATIVE (Neg); NITRITES, URINE NEGATIVE (Neg); OCCULT BLOOD,URINE NEGATIVE (Neg); PROTEIN,URINE TRACE mg/dl (Neg); UA COLLECTION TYPE STRAIGHT CATH; UROBILINOGEN,URINE 0.2 E.U/dL (0.2-1.0)
[2022-11-07 21:38] LABS: URINE AMPHETAMINE SCREEN NEGATIVE (Neg); URINE BARBITUATE SCREEN NEGATIVE (Neg); URINE BENZODIAZEPINES SCREEN NEGATIVE (Neg); URINE CANNABINOID SCREEN NEGATIVE (Neg); URINE COCAINE SCREEN NEGATIVE (Neg); URINE METHADONE SCREEN NEGATIVE (Neg); URINE OPIATE SCREEN NEGATIVE (Neg); URINE PHENCYCLIDINE SCREEN NEGATIVE (Neg)
[2022-11-07 21:45] LABS: BACTERIA,URINE FEW /HPF (Neg); MUCUS STRANDS NONE SEEN /LPF (Neg); RBC,URINE NONE SEEN /HPF (0-2); SQUAMOUS EPITHELIAL CELL,UR FEW /LPF (FEW); WBC,URINE 0-4 /HPF (0-4)
[2022-11-08] MEDS: levalbuterol 0.63mg/3ml nebule IH SCH ×4 (03:28→20:39)
[2022-11-08] MEDS: HYDROcodone/acetaminophen 5mg/325mg tablet PO PRN ×2 (06:09→14:43)
[2022-11-08] MEDS: furosemide 40mg/4ml inj IV SCH ×2 (08:28→20:51)
[2022-11-08] MEDS: heparin, porcine 5000 units/ml vial SQ SCH ×2 (08:29→20:51)
--- NOTE | 2022-11-08 08:35 | NUR ---
Pt placed in hospital bed and clean gown. Pt with excoriated coccyx with skin breakdown approx 1 cm in length that is non-bleeding. Skin cleaned and pts L hip propped with pillow. Pt with BLE cellulitis and noted with thicked peeling skin and nasreen red in coloring with multiple scabbed weeping sites. Pt with dry flow chux beneath pts bottom and BLE.
[2022-11-08] MEDS: doxycycline inj 100 MG in normal saline 100ml IV soln 100 ML IV SCH ×2 (09:07→20:50)
[2022-11-08 11:08] LABS: BASOPHILS % (AUTO) 0.4 % (0-1); EOSINOPHILS # (AUTO) 0.1 X10'3 (0-0.9); EOSINOPHILS % (AUTO) 0.6 % (0-6); LYMPHOCYTES # (AUTO) 0.9 X10'3 (1.1-4.8); LYMPHOCYTES % (AUTO) 8.3 % (21-51); MONOCYTES # (AUTO) 1.5 X10'3 (0-0.9); MONOCYTES % (AUTO) 13.3 % (2-12); NEUTROPHILS # (AUTO) 8.7 X10'3 (1.8-7.7); NEUTROPHILS % (AUTO) 77.4 % (42-75); PLATELET COUNT 365 X10'3 (140-440); WHITE BLOOD COUNT 11.2 X10'3 (4.5-11.0)
[2022-11-08 11:24] LABS: HEMATOCRIT 35.7 % (35.0-45.0); HEMOGLOBIN 10.9 g/dl (12.0-16.0); RED BLOOD COUNT 4.42 X10'6 (4.20-5.60)
[2022-11-08 11:25] LABS: MEAN CORPUSCULAR HEMOGLOBIN 24.7 PG (27.0-31.0); MEAN CORPUSCULAR HGB CONC 30.6 g/dL (33.0-36.5); MEAN CORPUSCULAR VOLUME 80.7 FL (78-98); RED CELL DISTRIBUTION WIDTH 19.2 % (11.5-14.5)
[2022-11-08 11:26] LABS: ANION GAP 3 (8-16); BILIRUBIN,TOTAL 0.4 MG/DL (0.1-1.0); BLOOD UREA NITROGEN 22 MG/DL (7-18); BUN/CREATININE RATIO 16.3 (6.6-38.0); CALCIUM 8.8 MG/DL (8.5-10.1); CHLORIDE 101 MMOL/L (99-107); CREATININE 1.35 MG/DL (0.40-0.90); GLUCOSE 129 MG/DL (70-104); POTASSIUM 3.9 MMOL/L (3.5-5.1); SODIUM 143 MMOL/L (135-145); TOTAL CARBON DIOXIDE 38.9 MMOL/L (24-32); TOTAL PROTEIN 7.1 G/DL (6.4-8.2); eGFR 39 ML/MIN
[2022-11-08 11:27] LABS: ALANINE AMINOTRANSFERASE 15 U/L (12-78); ALBUMIN 2.6 G/DL (3.4-5.0); ALBUMIN/GLOBULIN RATIO 0.6 (1.1-1.5); ALKALINE PHOSPHATASE 150 IU/L (46-116); ASPARTATE AMINO TRANSFERASE 14 U/L (10-37)
[2022-11-08 11:45] LABS: ANISOCYTOSIS 2+; PLATELET ESTIMATE NORMAL
[2022-11-08 11:46] LABS: POLYCHROMASIA FEW; STOMATOCYTES 1+
--- NOTE | 2022-11-08 12:50 | NUR ---
Patient in room PCU 3019. I have received report from Amaris GOMEZ and had the opportunity to ask questions and assume patient care.Pt arrived on PCU unit. Pt breathing on continuous oxygen @ 3LPM via nasal cannula. Pt alert and oriented x 3, denies distress, contact precautions in place, Wound pics will be taken.
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
--- NOTE | 2022-11-08 13:54 | NUR ---
Verbally agreed to patient portal Addendum: 11/08/22 at 1429 by Suresh Cedeño LVN Amended: Links added.
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
[2022-11-08 14:27] VITALS: BP 135/61
[2022-11-08] MEDS ORDERED: CEPH-585 PO (16:26)
[2022-11-08] MEDS ORDERED: SULF1TAB45 PO (16:26)
[2022-11-08 18:00] VITALS: BP 119/51
--- NOTE | 2022-11-08 18:12 | NUR ---
Problems reprioritized. Patient report given, questions answered & plan of care reviewed with Adriana GOMEZ. Bedside report given.
[2022-11-08] MEDS ORDERED: PERFLUTREN PROTEIN-A MICROSPHR (Optison) 0.22 MG/ML 3ML VIAL IV ONE (19:35)
[2022-11-08] MEDS: metoprolol succinate 25mg (24-HOUR) SR. Tablet PO SCH (20:56)
[2022-11-09 02:00] VITALS: BP 138/70
[2022-11-09] MEDS: levalbuterol 0.63mg/3ml nebule IH SCH ×4 (02:25→19:40)
[2022-11-09 06:00] VITALS: BP 108/82
[2022-11-09 06:42] LABS: ALANINE AMINOTRANSFERASE 11 U/L (12-78); ALBUMIN 2.3 G/DL (3.4-5.0); ALBUMIN/GLOBULIN RATIO 0.5 (1.1-1.5); ALKALINE PHOSPHATASE 141 IU/L (46-116); ANION GAP 3 (8-16); ASPARTATE AMINO TRANSFERASE 14 U/L (10-37); BILIRUBIN,TOTAL 0.3 MG/DL (0.1-1.0); BLOOD UREA NITROGEN 24 MG/DL (7-18); BUN/CREATININE RATIO 16.7 (6.6-38.0); CALCIUM 8.9 MG/DL (8.5-10.1); CHLORIDE 100 MMOL/L (99-107); CREATININE 1.44 MG/DL (0.40-0.90); GLUCOSE 132 MG/DL (70-104); MAGNESIUM 2.4 MG/DL (1.5-2.4); PHOSPHORUS 4.6 MG/DL (2.3-4.5); POTASSIUM 4.1 MMOL/L (3.5-5.1); SODIUM 143 MMOL/L (135-145); TOTAL CARBON DIOXIDE 39.6 MMOL/L (24-32); TOTAL PROTEIN 6.7 G/DL (6.4-8.2); eGFR 36 ML/MIN
[2022-11-09 06:43] LABS: BASOPHILS % (AUTO) 0 % (0-1); EOSINOPHILS % (AUTO) 0.7 % (0-6); HEMATOCRIT 34.4 % (35.0-45.0); HEMOGLOBIN 10.6 g/dl (12.0-16.0); LYMPHOCYTES # (AUTO) 0.9 X10'3 (1.1-4.8); LYMPHOCYTES % (AUTO) 14.1 % (21-51); MEAN CORPUSCULAR HGB CONC 30.7 g/dL (33.0-36.5); MEAN CORPUSCULAR VOLUME 81.7 FL (78-98); MEAN PLATELET VOLUME 8.5 FL (7.4-10.4); MONOCYTES # (AUTO) 0.9 X10'3 (0-0.9); MONOCYTES % (AUTO) 13.9 % (2-12); NEUTROPHILS # (AUTO) 4.8 X10'3 (1.8-7.7); NEUTROPHILS % (AUTO) 71.3 % (42-75); PLATELET COUNT 338 X10'3 (140-440); RED BLOOD COUNT 4.21 X10'6 (4.20-5.60); RED CELL DISTRIBUTION WIDTH 19.1 % (11.5-14.5); WHITE BLOOD COUNT 6.7 X10'3 (4.5-11.0)
[2022-11-09] MEDS: furosemide 40mg/4ml inj IV SCH ×2 (07:57→19:21)
[2022-11-09] MEDS: doxycycline inj 100 MG in normal saline 100ml IV soln 100 ML IV SCH (07:57)
[2022-11-09] MEDS: metoprolol succinate 25mg (24-HOUR) SR. Tablet PO SCH (07:58)
[2022-11-09] MEDS: heparin, porcine 5000 units/ml vial SQ SCH ×2 (07:58→19:21)
[2022-11-09] MEDS: HYDROcodone/acetaminophen 5mg/325mg tablet PO PRN ×2 (08:19→17:55)
[2022-11-09 10:00] VITALS: BP 120/54
[2022-11-09 14:00] VITALS: BP 151/79
[2022-11-09] MEDS: DOXYCYCLINE 100MG CAPSULE PO SCH (17:53)
[2022-11-09 18:00] VITALS: BP 140/66
[2022-11-10] MEDS: levalbuterol 0.63mg/3ml nebule IH SCH ×4 (02:12→20:21)
[2022-11-10] MEDS: HYDROcodone/acetaminophen 5mg/325mg tablet PO PRN ×2 (04:22→10:32)
[2022-11-10 06:00] VITALS: BP 155/77
[2022-11-10 06:29] LABS: BASOPHILS % (AUTO) 0.1 % (0-1); EOSINOPHILS # (AUTO) 0.1 X10'3 (0-0.9); EOSINOPHILS % (AUTO) 0.9 % (0-6); HEMATOCRIT 35.5 % (35.0-45.0); HEMOGLOBIN 10.9 g/dl (12.0-16.0); LYMPHOCYTES # (AUTO) 0.8 X10'3 (1.1-4.8); LYMPHOCYTES % (AUTO) 9.7 % (21-51); MEAN CORPUSCULAR HGB CONC 30.6 g/dL (33.0-36.5); MEAN CORPUSCULAR VOLUME 81.7 FL (78-98); MEAN PLATELET VOLUME 8.2 FL (7.4-10.4); MONOCYTES # (AUTO) 1.2 X10'3 (0-0.9); MONOCYTES % (AUTO) 14.3 % (2-12); NEUTROPHILS # (AUTO) 6.2 X10'3 (1.8-7.7); PLATELET COUNT 345 X10'3 (140-440); RED BLOOD COUNT 4.35 X10'6 (4.20-5.60); RED CELL DISTRIBUTION WIDTH 18.8 % (11.5-14.5); WHITE BLOOD COUNT 8.3 X10'3 (4.5-11.0)
--- NOTE | 2022-11-10 06:30 | NUR ---
Patient in room PCU 3019. I have received report from Adriana and had the opportunity to ask questions and assume patient care.
[2022-11-10 07:34] LABS: ALANINE AMINOTRANSFERASE 16 U/L (12-78); ALBUMIN 2.5 G/DL (3.4-5.0); ALBUMIN/GLOBULIN RATIO 0.5 (1.1-1.5); ALKALINE PHOSPHATASE 141 IU/L (46-116); ANION GAP 5 (8-16); ASPARTATE AMINO TRANSFERASE 15 U/L (10-37); BILIRUBIN,TOTAL 0.4 MG/DL (0.1-1.0); BLOOD UREA NITROGEN 26 MG/DL (7-18); BUN/CREATININE RATIO 19.3 (6.6-38.0); CALCIUM 9.2 MG/DL (8.5-10.1); CHLORIDE 96 MMOL/L (99-107); CREATININE 1.35 MG/DL (0.40-0.90); GLUCOSE 101 MG/DL (70-104); MAGNESIUM 2.4 MG/DL (1.5-2.4); PHOSPHORUS 3.2 MG/DL (2.3-4.5); POTASSIUM 3.9 MMOL/L (3.5-5.1); SODIUM 141 MMOL/L (135-145); TOTAL PROTEIN 7.2 G/DL (6.4-8.2); eGFR 39 ML/MIN
--- NOTE | 2022-11-10 07:49 | NUR ---
RE: Maria De Jesus, 3019, CO2 of 40.0 Thank you, Karolina
--- NOTE | 2022-11-10 07:54 | NUR ---
CRITICAL LAB VALUE TAKEN FROM LAB, REPORTED TO PRIMARY RN.
[2022-11-10] MEDS: furosemide 40mg/4ml inj IV SCH ×2 (09:20→19:30)
[2022-11-10] MEDS: DOXYCYCLINE 100MG CAPSULE PO SCH (09:21)
[2022-11-10] MEDS: heparin, porcine 5000 units/ml vial SQ SCH ×2 (09:21→19:30)
[2022-11-10] MEDS: metoprolol succinate 25mg (24-HOUR) SR. Tablet PO SCH (10:31)
[2022-11-10 10:51] VITALS: BP 105/48
[2022-11-10] MEDS ORDERED: linezolid 600mg tablet PO SCH (13:10)
--- NOTE | 2022-11-10 13:48 | NUR ---
PRESSURE ULCER EDUCATION: DEFINITION: A pressure ulcer is an area of skin that breaks down when you stay in one position too long. The constant pressure against the skin reduces the blood flow to that area and the affected tissue dies. CAUSES: "Being bedridden or in a wheelchair "Fragile skin "Having a chronic condition, such as diabetes or vascular disease "Inability to move certain parts of your body without assistance "Older age "Incontinence of urine or stool SYMPTOMS: "A reddened area that DOES NOT turn white when pressed on - this can be the beginning of a pressure ulcer "A blister, deep sore or a crater - these can be advanced pressure ulcers FIRST AID: "Relieve the pressure on this area "Keep the area clean and dry "Call your primary doctor if you see any of the above symptoms "DO NOT massage the area "DO NOT use a donut shaped or ring shaped pillow- these actually interfere with the blood flow and cause complications PREVENTION: "Check for pressure ulcers everyday "Change position at least every two hours to relieve pressure "Use items that help relieve pressure- pillows, sheepskin, foam padding, and powders. "Keep skin clean and dry "Eat healthy well balanced meals "Exercise daily IF YOU SEE ANY OF THESE SYMPTOMS WHILE IN THE HOSPITAL - TELL YOUR NURSE IMMEDIATELY. IF YOU SEE ANY OF THESE SYMPTOMS WHILE AT HOME OR HAVE ANY QUESTIONS OR CONCERNS ABOUT PRESSURE ULCERS - CALL YOUR PRIMARY DOCTOR IMMEDIATELY. Addendum: 11/10/22 at 1349 by Madison Yepez LVN Amended: Links added.
[2022-11-10 14:45] VITALS: BP 155/85
[2022-11-10 18:00] VITALS: BP 136/48
--- NOTE | 2022-11-10 18:39 | NUR ---
Problems reprioritized. Patient report given, questions answered & plan of care reviewed with
[2022-11-10] MEDS: nystatin 15 GM powder TP SCH (19:31)
[2022-11-10 22:00] VITALS: BP 167/73
[2022-11-11 00:25] VITALS: BP 154/79
--- NOTE | 2022-11-11 00:25 | NUR ---
pt's o2 sat in 80's tried to put pt on her side and upright still in low 80's.Called rapid response,Anam icu charge here.bipap on by resp. o2 sat up to 98%.vs checked and recorded.
[2022-11-11] MEDS ORDERED: albuterol 2.5 MG/3 ML nebule NEB STA (00:42)
[2022-11-11 00:47] LABS: ABG BASE EXCESS 12.1 mmol/L (-2.0-2.0); ABG HCO3 41.4 mmol/L (22.0-26.0); ABG OXYGEN SATURATION 77.9 % (94-97); ABG PCO2 (T) 81.9 mmHg (32.0-45.0); ABG PO2 (T) 43.9 mmHg (75.0-100.0); ALLEN'S TEST POSITIVE; FMetHb 0.2 % (0.0-1.5); PATIENT TEMPERATURE 37.2; TOTAL HEMOGLOBIN 12.4 G/dl (12.0-16.0)
[2022-11-11] MEDS ORDERED: morphine 2 MG/ML inj. syringe IV PRN (00:55)
[2022-11-11] MEDS ORDERED: furosemide 40mg/4ml inj IV ONE (01:00)
[2022-11-11 01:09] LABS: ALBUMIN 2.6 G/DL (3.4-5.0); ANION GAP 3 (8-16); BLOOD UREA NITROGEN 31 MG/DL (7-18); CALCIUM 9.2 MG/DL (8.5-10.1); CHLORIDE 96 MMOL/L (99-107); CREATININE 1.63 MG/DL (0.40-0.90); GLUCOSE 111 MG/DL (70-104); POTASSIUM 4.2 MMOL/L (3.5-5.1); SODIUM 142 MMOL/L (135-145); eGFR 31 ML/MIN
[2022-11-11 01:13] LABS: TOTAL CARBON DIOXIDE 43.5 MMOL/L (24-32)
[2022-11-11 02:51] LABS: ABG BASE EXCESS 15.3 mmol/L (-2.0-2.0); ABG HCO3 48.9 mmol/L (22.0-26.0); ABG OXYGEN SATURATION 99.6 % (94-97); ABG PCO2 (T) 137.2 mmHg (32.0-45.0); ABG PO2 (T) 353.9 mmHg (75.0-100.0); ALLEN'S TEST POSITIVE; FCOHb 0.8 % (0.0-3.9); FMetHb 0.4 % (0.0-1.5); FO2Hb 98.4 % (94-97); PATIENT TEMPERATURE 37.7; RESPIRATORY RATE 18 b/min; TOTAL HEMOGLOBIN 12.6 G/dl (12.0-16.0)
[2022-11-11 03:20] VITALS: BP 204/98
--- NOTE | 2022-11-11 03:20 | NUR ---
Abg pco2 113.1,po2 350.3,informed Dr. Echeverria Respiratory therapist Jessica here switched to HF 02 fi02 55% and o2 40l.BP 204/98. Dr. Echeverria.FC inserted by supercharge repair supervisor Megan no complications noted,pt santo procedure.
[2022-11-11] MEDS: levalbuterol 0.63mg/3ml nebule IH SCH ×5 (03:28→19:59)
[2022-11-11] MEDS: LORazepam 2 mg/ml vial IV PRN (03:38)
[2022-11-11 03:50] VITALS: BP 178/82
[2022-11-11 04:10] LABS: ABG BASE EXCESS 17.6 mmol/L (-2.0-2.0); ABG HCO3 50.8 mmol/L (22.0-26.0); ABG OXYGEN SATURATION 88.5 % (94-97); ABG PCO2 (T) 128.1 mmHg (32.0-45.0); ALLEN'S TEST POSITIVE; FCOHb 0.7 % (0.0-3.9); FLOW 40 L/min; FMetHb 0.3 % (0.0-1.5); FO2Hb 87.6 % (94-97); PATIENT TEMPERATURE 37.2; TOTAL HEMOGLOBIN 12.7 G/dl (12.0-16.0)
--- NOTE | 2022-11-11 05:32 | NUR ---
rt manny here,on bipap with fi02 55,o2 sats 93-95 %
[2022-11-11 06:00] VITALS: BP 154/78
[2022-11-11 06:27] LABS: ALANINE AMINOTRANSFERASE 16 U/L (12-78); ALBUMIN 2.7 G/DL (3.4-5.0); ALBUMIN/GLOBULIN RATIO 0.5 (1.1-1.5); ALKALINE PHOSPHATASE 161 IU/L (46-116); ASPARTATE AMINO TRANSFERASE 18 U/L (10-37); BILIRUBIN,TOTAL 0.4 MG/DL (0.1-1.0); BLOOD UREA NITROGEN 32 MG/DL (7-18); BUN/CREATININE RATIO 19.5 (6.6-38.0); CALCIUM 9.2 MG/DL (8.5-10.1); CHLORIDE 95 MMOL/L (99-107); CREATININE 1.64 MG/DL (0.40-0.90); GLUCOSE 107 MG/DL (70-104); MAGNESIUM 2.5 MG/DL (1.5-2.4); PHOSPHORUS 4.5 MG/DL (2.3-4.5); POTASSIUM 4.8 MMOL/L (3.5-5.1); SODIUM 142 MMOL/L (135-145); TOTAL PROTEIN 7.9 G/DL (6.4-8.2); eGFR 31 ML/MIN
--- NOTE | 2022-11-11 06:30 | NUR ---
Patient in room PCU 3019. I have received report from Briana GOMEZ and had the opportunity to ask questions and assume patient care.
[2022-11-11 06:59] LABS: ANION GAP 1 (8-16)
[2022-11-11 07:04] LABS: TOTAL CARBON DIOXIDE 45.9 MMOL/L (24-32)
--- NOTE | 2022-11-11 07:25 | NUR ---
Message: [phone], Maribel Paredes. Pts CO2 is 45.9. [facility] 5482.
[2022-11-11] MEDS: metoprolol succinate 25mg (24-HOUR) SR. Tablet PO SCH (08:00)
[2022-11-11 08:34] VITALS: BP 128/51
[2022-11-11] MEDS ORDERED: methylPREDNISolone sod succ 125mg/2ml vial IV ONE (08:40)
[2022-11-11 08:59] LABS: ABG BASE EXCESS 15.9 mmol/L (-2.0-2.0); ABG HCO3 46.6 mmol/L (22.0-26.0); ABG OXYGEN SATURATION 94.3 % (94-97); ABG PCO2 (T) 97.4 mmHg (32.0-45.0); ABG PO2 (T) 74.7 mmHg (75.0-100.0); ALLEN'S TEST POSITIVE; FMetHb 0.3 % (0.0-1.5); FO2Hb 93.1 % (94-97); RESPIRATORY RATE 12 b/min; TIDAL VOLUME 1175 mL; TOTAL HEMOGLOBIN 12.4 G/dl (12.0-16.0)
--- NOTE | 2022-11-11 09:35 | NUR ---
Message: [phone], Maribel Paredes. Latest ABG results pH 7.298, pCO2 97.4 (trending down), pO2 74.7, HCO3 46.6. [facility] 5441.
[2022-11-11 09:44] LABS: BASOPHILS % (AUTO) 0.2 % (0-1); EOSINOPHILS % (AUTO) 0.3 % (0-6); HEMOGLOBIN 11.3 g/dl (12.0-16.0); LYMPHOCYTES # (AUTO) 0.6 X10'3 (1.1-4.8); LYMPHOCYTES % (AUTO) 6.9 % (21-51); MEAN PLATELET VOLUME 8.2 FL (7.4-10.4); MONOCYTES # (AUTO) 1.1 X10'3 (0-0.9); MONOCYTES % (AUTO) 12.8 % (2-12); NEUTROPHILS % (AUTO) 79.8 % (42-75); PLATELET COUNT 391 X10'3 (140-440); WHITE BLOOD COUNT 8.8 X10'3 (4.5-11.0)
[2022-11-11 09:44] LABS: HEMATOCRIT 36.3 % (35.0-45.0); HEMOGLOBIN 11.1 g/dl (12.0-16.0); MEAN CORPUSCULAR VOLUME 81.5 FL (78-98); RED BLOOD COUNT 4.46 X10'6 (4.20-5.60); WHITE BLOOD COUNT 8.9 X10'3 (4.5-11.0)
[2022-11-11 09:45] LABS: BASOPHILS % (AUTO) 0.2 % (0-1); EOSINOPHILS % (AUTO) 0.6 % (0-6); LYMPHOCYTES # (AUTO) 0.7 X10'3 (1.1-4.8); LYMPHOCYTES % (AUTO) 7.7 % (21-51); MEAN CORPUSCULAR HGB CONC 30.6 g/dL (33.0-36.5); MEAN PLATELET VOLUME 7.9 FL (7.4-10.4); MONOCYTES # (AUTO) 1.1 X10'3 (0-0.9); MONOCYTES % (AUTO) 12.2 % (2-12); NEUTROPHILS # (AUTO) 7.1 X10'3 (1.8-7.7); NEUTROPHILS % (AUTO) 79.3 % (42-75); PLATELET COUNT 371 X10'3 (140-440); RED CELL DISTRIBUTION WIDTH 19.1 % (11.5-14.5)
[2022-11-11 09:47] LABS: ANISOCYTOSIS 2+; ELLIPTOCYTES FEW; PLATELET ESTIMATE NORMAL; TOTAL CELLS COUNTED 100
[2022-11-11] MEDS: furosemide 40mg/4ml inj IV SCH ×2 (09:49→22:01)
[2022-11-11] MEDS: mineral oil/petrolatum, white cream 60gm jar TP SCH (09:50)
[2022-11-11] MEDS: heparin, porcine 5000 units/ml vial SQ SCH ×2 (09:50→22:02)
[2022-11-11] MEDS: nystatin 15 GM powder TP SCH ×2 (09:51→20:00)
[2022-11-11 10:18] LABS: HEMATOCRIT 37.4 % (35.0-45.0); MEAN CORPUSCULAR HEMOGLOBIN 24.5 PG (27.0-31.0); MEAN CORPUSCULAR HGB CONC 30.2 g/dL (33.0-36.5); MEAN CORPUSCULAR VOLUME 81.2 FL (78-98)
[2022-11-11 10:19] LABS: RED CELL DISTRIBUTION WIDTH 18.6 % (11.5-14.5)
--- NOTE | 2022-11-11 10:51 | NUR ---
Zyvox Consult: Pt started on zyvox this admit DX BLE cellulitis w/ L buttock partial thickness area otherwise skin intact per [facility] note. Pt currently on 5150 hold w/ froyter not appropriate for verbal ed. Written low tyramine diet ed w/ RD contact information placed in pt chart. Addendum: 11/11/22 at [address] Amended: Links added.
[2022-11-11] MEDS ORDERED: linezolid 600mg/300ml PREMIX 300 ML IV ONE (11:35)
[2022-11-11] MEDS ORDERED: metoprolol tartrate 1mg/ml inj IV ONE (11:35)
[2022-11-11 14:51] VITALS: BP 161/86
[2022-11-11] MEDS: methylPREDNISolone sod succ 125mg/2ml vial IV SCH ×2 (15:19→22:01)
--- NOTE | 2022-11-11 15:20 | NUR ---
CLINICAL INSTRUCTOR I REVIEWED STUDENT NURSE CHARTING
[2022-11-11] MEDS: linezolid 600mg/300ml PREMIX 300 ML IV SCH (23:37)
[2022-11-12] MEDS: levalbuterol 0.63mg/3ml nebule IH SCH ×5 (02:28→19:38)
[2022-11-12] MEDS: methylPREDNISolone sod succ 125mg/2ml vial IV SCH ×4 (02:52→20:38)
[2022-11-12 06:51] LABS: BASOPHILS % (AUTO) 0 % (0-1); EOSINOPHILS % (AUTO) 0 % (0-6); HEMOGLOBIN 11.3 g/dl (12.0-16.0); LYMPHOCYTES # (AUTO) 0.3 X10'3 (1.1-4.8); LYMPHOCYTES % (AUTO) 5.4 % (21-51); MEAN CORPUSCULAR HEMOGLOBIN 25.1 PG (27.0-31.0); MEAN CORPUSCULAR HGB CONC 29.8 g/dL (33.0-36.5); MONOCYTES # (AUTO) 0.3 X10'3 (0-0.9); MONOCYTES % (AUTO) 4.5 % (2-12); NEUTROPHILS # (AUTO) 5.7 X10'3 (1.8-7.7); NEUTROPHILS % (AUTO) 90.1 % (42-75); PLATELET COUNT 356 X10'3 (140-440); WHITE BLOOD COUNT 6.3 X10'3 (4.5-11.0)
[2022-11-12 07:12] LABS: ALANINE AMINOTRANSFERASE 10 U/L (12-78); ALBUMIN 2.7 G/DL (3.4-5.0); ALBUMIN/GLOBULIN RATIO 0.5 (1.1-1.5); ALKALINE PHOSPHATASE 148 IU/L (46-116); ANION GAP 8 (8-16); ASPARTATE AMINO TRANSFERASE 19 U/L (10-37); BILIRUBIN,TOTAL 0.3 MG/DL (0.1-1.0); BLOOD UREA NITROGEN 62 MG/DL (7-18); BUN/CREATININE RATIO 27.1 (6.6-38.0); CALCIUM 8.9 MG/DL (8.5-10.1); CHLORIDE 94 MMOL/L (99-107); CREATININE 2.29 MG/DL (0.40-0.90); GLUCOSE 132 MG/DL (70-104); PHOSPHORUS 6.8 MG/DL (2.3-4.5); POTASSIUM 5.1 MMOL/L (3.5-5.1); SODIUM 143 MMOL/L (135-145); eGFR 21 ML/MIN
[2022-11-12 07:13] LABS: HEMATOCRIT 36.7 % (35.0-45.0)
[2022-11-12 07:14] LABS: MEAN CORPUSCULAR VOLUME 81.8 FL (78-98); RED CELL DISTRIBUTION WIDTH 18.1 % (11.5-14.5)
[2022-11-12 07:24] LABS: TOTAL CARBON DIOXIDE 41.5 MMOL/L (24-32)
--- NOTE | 2022-11-12 07:30 | NUR ---
Message: Maria De Jesus 301Doreen, Pt had a critical lab value CO2 at 41.5 down from 45.9 yesterday. Huseyin [phone]
[2022-11-12 07:37] LABS: TOTAL CELLS COUNTED 100
[2022-11-12 07:38] LABS: ANISOCYTOSIS 2+; PLATELET ESTIMATE NORMAL
[2022-11-12 08:00] VITALS: BP 137/71
[2022-11-12] MEDS: nystatin 15 GM powder TP SCH ×2 (08:00→20:39)
[2022-11-12] MEDS: mineral oil/petrolatum, white cream 60gm jar TP SCH (08:00)
[2022-11-12] MEDS: metoprolol succinate 25mg (24-HOUR) SR. Tablet PO SCH (08:00)
[2022-11-12] MEDS: furosemide 40mg/4ml inj IV SCH ×2 (08:49→20:37)
[2022-11-12] MEDS: heparin, porcine 5000 units/ml vial SQ SCH ×2 (08:49→20:39)
[2022-11-12] MEDS: linezolid 600mg/300ml PREMIX 300 ML IV SCH ×2 (10:19→20:38)
--- NOTE | 2022-11-12 10:54 | NUR ---
Initial: Pt admit DX BLE cellulitis, CHF, acute respiratory failure w/ hx COPD, CKD 3, anemia, chronic afib, and on 1798 hold w/ sitter given unable to care for self per EMR. PO ~73% avg initial heart healthy meals meeting needs however NPO since yesterday given BIPAP dependence now incomprehensible per EMR; ALOC confirmed per RN this AM. Dietary notified of NPO status. If pt continued BIPAP dependence and NPO status would benefit from EN to meet needs. LBM 11/10. Will monitor for further nutrition intervention needs. Rec: 1. resume heart healthy diet per MD as medically indicated; initially meeting needs w/ PO intake 2. IF to remain NPO w/ BIPAP dependence consider EN via NG to meet nutrition needs 3. routine bowel care 4. weekly wts Addendum: 11/12/22 at [address] Amended: Links added.
[2022-11-12 12:54] VITALS: BP 94/34
[2022-11-12 13:04] VITALS: BP 134/73
[2022-11-12 15:00] VITALS: BP 133/74
[2022-11-12 18:00] VITALS: BP 146/81
[2022-11-12] MEDS: HYDROcodone/acetaminophen 5mg/325mg tablet PO PRN (20:51)
[2022-11-12 22:00] VITALS: BP 149/76
[2022-11-13] MEDS: levalbuterol 0.63mg/3ml nebule IH SCH ×7 (00:41→22:54)
[2022-11-13] MEDS: methylPREDNISolone sod succ 125mg/2ml vial IV SCH ×2 (01:24→16:24)
[2022-11-13 02:00] VITALS: BP 157/82
[2022-11-13] MEDS: LORazepam 2 mg/ml vial IV PRN ×2 (03:06→20:23)
[2022-11-13 07:22] VITALS: BP 157/73
[2022-11-13] MEDS: metoprolol succinate 25mg (24-HOUR) SR. Tablet PO SCH (08:00)
[2022-11-13] MEDS: nystatin 15 GM powder TP SCH ×2 (08:00→20:28)
[2022-11-13] MEDS ORDERED: acetaZOLAMIDE IV 500mg inj IV ONE (08:50)
[2022-11-13 09:04] LABS: BASOPHILS % (AUTO) 0.3 % (0-1); EOSINOPHILS % (AUTO) 0 % (0-6); LYMPHOCYTES # (AUTO) 0.4 X10'3 (1.1-4.8); LYMPHOCYTES % (AUTO) 8.2 % (21-51); MEAN PLATELET VOLUME 7.9 FL (7.4-10.4); MONOCYTES # (AUTO) 0.5 X10'3 (0-0.9); MONOCYTES % (AUTO) 9.1 % (2-12); NEUTROPHILS # (AUTO) 4.2 X10'3 (1.8-7.7); NEUTROPHILS % (AUTO) 82.4 % (42-75); PLATELET COUNT 309 X10'3 (140-440); RED CELL DISTRIBUTION WIDTH 17.9 % (11.5-14.5); WHITE BLOOD COUNT 5.1 X10'3 (4.5-11.0)
[2022-11-13] MEDS: linezolid 600mg/300ml PREMIX 300 ML IV SCH ×2 (09:11→20:28)
[2022-11-13] MEDS: heparin, porcine 5000 units/ml vial SQ SCH ×2 (09:11→20:28)
[2022-11-13 09:19] LABS: HEMATOCRIT 34.4 % (35.0-45.0); HEMOGLOBIN 10.4 g/dl (12.0-16.0); MEAN CORPUSCULAR HEMOGLOBIN 24.7 PG (27.0-31.0); MEAN CORPUSCULAR HGB CONC 30.3 g/dL (33.0-36.5); MEAN CORPUSCULAR VOLUME 81.5 FL (78-98); RED BLOOD COUNT 4.22 X10'6 (4.20-5.60)
[2022-11-13 09:42] LABS: ALANINE AMINOTRANSFERASE 10 U/L (12-78); ALBUMIN 2.6 G/DL (3.4-5.0); ALBUMIN/GLOBULIN RATIO 0.6 (1.1-1.5); ALKALINE PHOSPHATASE 120 IU/L (46-116); ANION GAP 5 (8-16); ASPARTATE AMINO TRANSFERASE 23 U/L (10-37); BILIRUBIN,TOTAL 0.3 MG/DL (0.1-1.0); BLOOD UREA NITROGEN 102 MG/DL (7-18); BUN/CREATININE RATIO 38.6 (6.6-38.0); CALCIUM 8.5 MG/DL (8.5-10.1); CHLORIDE 94 MMOL/L (99-107); CREATININE 2.64 MG/DL (0.40-0.90); GLUCOSE 128 MG/DL (70-104); MAGNESIUM 3.4 MG/DL (1.5-2.4); POTASSIUM 4.9 MMOL/L (3.5-5.1); SODIUM 139 MMOL/L (135-145); eGFR 18 ML/MIN
[2022-11-13 09:45] LABS: TOTAL CARBON DIOXIDE 40.3 MMOL/L (24-32)
--- NOTE | 2022-11-13 10:01 | NUR ---
Message: Maria De Jesus Gtz, Pt had a critical lab value CO2 of 40.3, down from 41.5 yesterday. Huseyin 3661
[2022-11-13 10:02] LABS: TOTAL CELLS COUNTED 100
[2022-11-13 10:03] LABS: PLATELET ESTIMATE NORMAL
[2022-11-13 10:04] LABS: ANISOCYTOSIS 1+; STOMATOCYTES 1+
[2022-11-13 11:00] VITALS: BP 152/80
[2022-11-13] MEDS: HYDROcodone/acetaminophen 5mg/325mg tablet PO PRN (14:11)
[2022-11-13 15:15] VITALS: BP 145/83
--- NOTE | 2022-11-13 15:32 | NUR ---
Pt started the day unresponsive and in restraints. She started to become more responsive in late morning and restraints were removed to see how she handled hands released. Sitter remained at bed all day to this point. I took pt off Bipap at lunch time, and swapped to venturi mask at 15L. Pt ate and oxygenation is better and dropped her down to 12L. Pt is sleeping in bed comfortably.
[2022-11-13 18:00] VITALS: BP 144/75
[2022-11-13 22:00] VITALS: BP 144/76
[2022-11-14] MEDS: methylPREDNISolone sod succ 125mg/2ml vial IV SCH ×3 (00:29→16:21)
[2022-11-14] MEDS: levalbuterol 0.63mg/3ml nebule IH SCH ×6 (03:05→23:07)
[2022-11-14 06:46] LABS: BASOPHILS % (AUTO) 0.1 % (0-1); EOSINOPHILS % (AUTO) 0.1 % (0-6); HEMATOCRIT 33.2 % (35.0-45.0); HEMOGLOBIN 10.3 g/dl (12.0-16.0); LYMPHOCYTES # (AUTO) 0.4 X10'3 (1.1-4.8); LYMPHOCYTES % (AUTO) 9.9 % (21-51); MEAN CORPUSCULAR HEMOGLOBIN 25.4 PG (27.0-31.0); MONOCYTES # (AUTO) 0.2 X10'3 (0-0.9); MONOCYTES % (AUTO) 4.8 % (2-12); NEUTROPHILS # (AUTO) 3.6 X10'3 (1.8-7.7); NEUTROPHILS % (AUTO) 85.1 % (42-75); PLATELET COUNT 284 X10'3 (140-440); RED BLOOD COUNT 4.05 X10'6 (4.20-5.60); RED CELL DISTRIBUTION WIDTH 18.1 % (11.5-14.5); WHITE BLOOD COUNT 4.2 X10'3 (4.5-11.0)
[2022-11-14 07:02] LABS: ALANINE AMINOTRANSFERASE 13 U/L (12-78); ALBUMIN 2.6 G/DL (3.4-5.0); ALBUMIN/GLOBULIN RATIO 0.6 (1.1-1.5); ALKALINE PHOSPHATASE 108 IU/L (46-116); ANION GAP 4 (8-16); ASPARTATE AMINO TRANSFERASE 21 U/L (10-37); BILIRUBIN,TOTAL 0.2 MG/DL (0.1-1.0); BLOOD UREA NITROGEN 106 MG/DL (7-18); BUN/CREATININE RATIO 42.9 (6.6-38.0); CALCIUM 8.6 MG/DL (8.5-10.1); CHLORIDE 96 MMOL/L (99-107); CREATININE 2.47 MG/DL (0.40-0.90); GLUCOSE 136 MG/DL (70-104); MAGNESIUM 3.3 MG/DL (1.5-2.4); PHOSPHORUS 3.6 MG/DL (2.3-4.5); POTASSIUM 4.4 MMOL/L (3.5-5.1); SODIUM 138 MMOL/L (135-145); TOTAL CARBON DIOXIDE 38.1 MMOL/L (24-32); TOTAL PROTEIN 6.7 G/DL (6.4-8.2); eGFR 19 ML/MIN
[2022-11-14 07:13] VITALS: BP 136/57
[2022-11-14 07:24] LABS: ANISOCYTOSIS 2+; PLATELET ESTIMATE NORMAL; POLYCHROMASIA 1+; STOMATOCYTES 1+; TOTAL CELLS COUNTED 100
--- NOTE | 2022-11-14 07:35 | NUR ---
As of start of shift pt was on Bipap and in restraints due to confusion and A&O x1-2. As of now pt is on venturi mask @15L/hr is out of restrains and is pleasantly oriented and asking for food. Sitter is still in room with pt and we will continue to monitor for acute changes.
[2022-11-14] MEDS: acetaminophen 325mg tablet PO PRN (07:42)
[2022-11-14] MEDS: nystatin 15 GM powder TP SCH ×2 (08:00→20:11)
[2022-11-14] MEDS: MINERAL OIL/PETROLATUM,WHITE CREAM 107 GM TUBE TP SCH (08:00)
[2022-11-14] MEDS: linezolid 600mg/300ml PREMIX 300 ML IV SCH ×2 (09:28→20:10)
[2022-11-14] MEDS: heparin, porcine 5000 units/ml vial SQ SCH ×2 (09:29→20:10)
[2022-11-14] MEDS: metoprolol succinate 25mg (24-HOUR) SR. Tablet PO SCH (09:29)
[2022-11-14] MEDS: acetaZOLAMIDE IV 500mg inj IV SCH (09:30)
--- NOTE | 2022-11-14 11:00 | NUR ---
PRESSURE ULCER EDUCATION: DEFINITION: A pressure ulcer is an area of skin that breaks down when you stay in one position too long. The constant pressure against the skin reduces the blood flow to that area and the affected tissue dies. CAUSES: "Being bedridden or in a wheelchair "Fragile skin "Having a chronic condition, such as diabetes or vascular disease "Inability to move certain parts of your body without assistance "Older age "Incontinence of urine or stool SYMPTOMS: "A reddened area that DOES NOT turn white when pressed on - this can be the beginning of a pressure ulcer "A blister, deep sore or a crater - these can be advanced pressure ulcers FIRST AID: "Relieve the pressure on this area "Keep the area clean and dry "Call your primary doctor if you see any of the above symptoms "DO NOT massage the area "DO NOT use a donut shaped or ring shaped pillow- these actually interfere with the blood flow and cause complications PREVENTION: "Check for pressure ulcers everyday "Change position at least every two hours to relieve pressure "Use items that help relieve pressure- pillows, sheepskin, foam padding, and powders. "Keep skin clean and dry "Eat healthy well balanced meals "Exercise daily IF YOU SEE ANY OF THESE SYMPTOMS WHILE IN THE HOSPITAL - TELL YOUR NURSE IMMEDIATELY. IF YOU SEE ANY OF THESE SYMPTOMS WHILE AT HOME OR HAVE ANY QUESTIONS OR CONCERNS ABOUT PRESSURE ULCERS - CALL YOUR PRIMARY DOCTOR IMMEDIATELY. Addendum: 11/14/22 at 1100 by Zehra Mcneil RN Amended: Links added.
[2022-11-14 11:43] VITALS: BP 154/68
[2022-11-14 15:00] VITALS: BP 143/62
[2022-11-14 18:00] VITALS: BP 140/60
[2022-11-14] MEDS: HYDROcodone/acetaminophen 5mg/325mg tablet PO PRN (18:57)
[2022-11-14 22:00] VITALS: BP 150/72
--- NOTE | 2022-11-14 23:00 | NUR ---
Pt care transferred to Usama Castillo RN.
[2022-11-15] MEDS: methylPREDNISolone sod succ 125mg/2ml vial IV SCH ×3 (00:14→16:02)
[2022-11-15] MEDS: LORazepam 2 mg/ml vial IV PRN (00:24)
[2022-11-15 02:02] VITALS: BP 161/77
[2022-11-15] MEDS: levalbuterol 0.63mg/3ml nebule IH SCH ×6 (02:47→23:10)
[2022-11-15 03:28] VITALS: BP 151/63
--- NOTE | 2022-11-15 06:36 | NUR ---
Patient in room PCU 3018G. I have received report from Hilario GOMEZ and had the opportunity to ask questions and assume patient care. Pt has sitter at bedside. Pt has BPAP in place. Sleeping with HOB in semi fowlers.
[2022-11-15 07:00] VITALS: BP 150/74
[2022-11-15] MEDS: linezolid 600mg/300ml PREMIX 300 ML IV SCH ×2 (07:55→19:01)
[2022-11-15] MEDS: acetaZOLAMIDE IV 500mg inj IV SCH (07:56)
[2022-11-15] MEDS: MINERAL OIL/PETROLATUM,WHITE CREAM 107 GM TUBE TP SCH (08:00)
[2022-11-15] MEDS: nystatin 15 GM powder TP SCH ×2 (08:00→19:02)
[2022-11-15] MEDS: metoprolol succinate 25mg (24-HOUR) SR. Tablet PO SCH (08:00)
[2022-11-15 08:32] LABS: BASOPHILS % (AUTO) 0.1 % (0-1); EOSINOPHILS % (AUTO) 0 % (0-6); HEMATOCRIT 37.2 % (35.0-45.0); HEMOGLOBIN 11.2 g/dl (12.0-16.0); LYMPHOCYTES # (AUTO) 0.6 X10'3 (1.1-4.8); LYMPHOCYTES % (AUTO) 11.1 % (21-51); MEAN CORPUSCULAR HEMOGLOBIN 24.7 PG (27.0-31.0); MEAN CORPUSCULAR VOLUME 82.3 FL (78-98); MEAN PLATELET VOLUME 8.2 FL (7.4-10.4); MONOCYTES # (AUTO) 0.3 X10'3 (0-0.9); MONOCYTES % (AUTO) 4.9 % (2-12); NEUTROPHILS # (AUTO) 4.3 X10'3 (1.8-7.7); NEUTROPHILS % (AUTO) 83.9 % (42-75); PLATELET COUNT 310 X10'3 (140-440); RED BLOOD COUNT 4.53 X10'6 (4.20-5.60); RED CELL DISTRIBUTION WIDTH 18.1 % (11.5-14.5); WHITE BLOOD COUNT 5.1 X10'3 (4.5-11.0)
[2022-11-15 09:02] LABS: ALANINE AMINOTRANSFERASE 11 U/L (12-78); ALBUMIN 2.9 G/DL (3.4-5.0); ALBUMIN/GLOBULIN RATIO 0.6 (1.1-1.5); ALKALINE PHOSPHATASE 108 IU/L (46-116); ANION GAP 6 (8-16); ASPARTATE AMINO TRANSFERASE 18 U/L (10-37); BILIRUBIN,TOTAL 0.2 MG/DL (0.1-1.0); BLOOD UREA NITROGEN 93 MG/DL (7-18); BUN/CREATININE RATIO 47.9 (6.6-38.0); CALCIUM 8.9 MG/DL (8.5-10.1); CHLORIDE 99 MMOL/L (99-107); CREATININE 1.94 MG/DL (0.40-0.90); GLUCOSE 123 MG/DL (70-104); MAGNESIUM 3.4 MG/DL (1.5-2.4); SODIUM 139 MMOL/L (135-145); TOTAL CARBON DIOXIDE 34.4 MMOL/L (24-32); TOTAL PROTEIN 7.4 G/DL (6.4-8.2); eGFR 26 ML/MIN
[2022-11-15 09:42] LABS: ANISOCYTOSIS 2+; MICROCYTOSIS 1+; PLATELET ESTIMATE NORMAL; STOMATOCYTES 1+
[2022-11-15] MEDS: heparin, porcine 5000 units/ml vial SQ SCH ×2 (12:40→19:01)
--- NOTE | 2022-11-15 14:50 | NUR ---
Pt BiPaP removed so patient can eat. Pt placed on 2 LPM via nasal cannula.
[2022-11-15] MEDS: HYDROcodone/acetaminophen 5mg/325mg tablet PO PRN (16:09)
[2022-11-15 18:00] VITALS: BP 139/48
--- NOTE | 2022-11-15 18:10 | NUR ---
Problems reprioritized. Patient report given, questions answered & plan of care reviewed with Hilario GOMEZ.
[2022-11-15 22:00] VITALS: BP 130/68
[2022-11-16] MEDS: methylPREDNISolone sod succ 125mg/2ml vial IV SCH ×4 (00:29→19:23)
[2022-11-16] MEDS: HYDROcodone/acetaminophen 5mg/325mg tablet PO PRN (01:30)
[2022-11-16 02:59] VITALS: BP 141/59
[2022-11-16] MEDS: levalbuterol 0.63mg/3ml nebule IH SCH ×6 (03:13→23:00)
[2022-11-16 06:53] LABS: ALANINE AMINOTRANSFERASE 15 U/L (12-78); ALBUMIN 2.7 G/DL (3.4-5.0); ALBUMIN/GLOBULIN RATIO 0.7 (1.1-1.5); ALKALINE PHOSPHATASE 98 IU/L (46-116); ANION GAP 3 (8-16); ASPARTATE AMINO TRANSFERASE 14 U/L (10-37); BILIRUBIN,TOTAL 0.2 MG/DL (0.1-1.0); BLOOD UREA NITROGEN 91 MG/DL (7-18); BUN/CREATININE RATIO 48.7 (6.6-38.0); CALCIUM 8.7 MG/DL (8.5-10.1); CHLORIDE 103 MMOL/L (99-107); CREATININE 1.87 MG/DL (0.40-0.90); GLUCOSE 142 MG/DL (70-104); PHOSPHORUS 3.5 MG/DL (2.3-4.5); POTASSIUM 4.8 MMOL/L (3.5-5.1); SODIUM 141 MMOL/L (135-145); TOTAL CARBON DIOXIDE 34.7 MMOL/L (24-32); TOTAL PROTEIN 6.8 G/DL (6.4-8.2); eGFR 27 ML/MIN
[2022-11-16 07:00] VITALS: BP 139/48
[2022-11-16 07:00] LABS: BASOPHILS % (AUTO) 0.1 % (0-1); EOSINOPHILS % (AUTO) 0 % (0-6); HEMATOCRIT 35.7 % (35.0-45.0); LYMPHOCYTES # (AUTO) 0.4 X10'3 (1.1-4.8); LYMPHOCYTES % (AUTO) 7.6 % (21-51); MEAN CORPUSCULAR HEMOGLOBIN 25.3 PG (27.0-31.0); MEAN CORPUSCULAR HGB CONC 30.8 g/dL (33.0-36.5); MEAN CORPUSCULAR VOLUME 82.2 FL (78-98); MEAN PLATELET VOLUME 8.2 FL (7.4-10.4); MONOCYTES # (AUTO) 0.2 X10'3 (0-0.9); MONOCYTES % (AUTO) 3.6 % (2-12); NEUTROPHILS % (AUTO) 88.7 % (42-75); PLATELET COUNT 262 X10'3 (140-440); RED BLOOD COUNT 4.35 X10'6 (4.20-5.60); RED CELL DISTRIBUTION WIDTH 17.9 % (11.5-14.5); WHITE BLOOD COUNT 5.7 X10'3 (4.5-11.0)
[2022-11-16] MEDS: MINERAL OIL/PETROLATUM,WHITE CREAM 107 GM TUBE TP SCH (08:00)
[2022-11-16 08:53] LABS: TOTAL CELLS COUNTED 100
[2022-11-16 08:55] LABS: ANISOCYTOSIS 1+; ELLIPTOCYTES FEW; HYPOCHROMASIA 1+; PLATELET ESTIMATE NORMAL; POLYCHROMASIA FEW; STOMATOCYTES 1+; TEAR DROP CELLS FEW
[2022-11-16] MEDS: linezolid 600mg/300ml PREMIX 300 ML IV SCH ×2 (09:03→19:24)
[2022-11-16] MEDS: nystatin 15 GM powder TP SCH ×2 (09:04→19:22)
[2022-11-16] MEDS: acetaZOLAMIDE IV 500mg inj IV SCH (09:07)
[2022-11-16] MEDS: heparin, porcine 5000 units/ml vial SQ SCH ×2 (09:10→19:22)
[2022-11-16] MEDS: metoprolol succinate 25mg (24-HOUR) SR. Tablet PO SCH (09:11)
[2022-11-16 12:00] VITALS: BP 149/60
--- NOTE | 2022-11-16 12:17 | NUR ---
Reassessment: Pt continues on heart healthy diet with improved PO intake, previously averaging 21% PO intake 11/13-11/14 though up to 100% PO intake at three most recent meals. Noted pt previously confused and on BiPAP though now documented as A/O x 4 and on 3L NC, possibly contributing to increased PO intake. LBM 11/15. No nutrition intervention implemented at this time. Will continue to follow closely. Recommendations: 1. Continue heart healthy diet 2. Monitor need for nutrition intervention 3. Routine bowel care 4. Weekly scaled wts Addendum: 11/16/22 at [address] Amended: Links added.
[2022-11-16 15:38] VITALS: BP 124/51
[2022-11-16] MEDS ORDERED: magnesium Cl slow-release 64mg tablet PO PRN (18:30)
[2022-11-16] MEDS ORDERED: potassium Cl 20 mEq SR tablet PO PRN ×2 (18:30)
[2022-11-16] MEDS ORDERED: magnesium 4gm in 100ml NS 100 ML IV PRN (18:30)
[2022-11-16] MEDS ORDERED: potassium Cl 40MEQ/1/2NS 520ml 520 ML IV PRN (18:30)
[2022-11-16] MEDS: K and/or MAG REPLACEMENT MC SCH (19:33)
[2022-11-16 22:00] VITALS: BP 132/52
[2022-11-17 02:00] VITALS: BP 129/53
[2022-11-17] MEDS: levalbuterol 0.63mg/3ml nebule IH SCH ×6 (02:53→23:00)
[2022-11-17 06:35] LABS: BASOPHILS % (AUTO) 0.2 % (0-1); EOSINOPHILS % (AUTO) 0 % (0-6); HEMATOCRIT 37.6 % (35.0-45.0); HEMOGLOBIN 11.1 g/dl (12.0-16.0); LYMPHOCYTES # (AUTO) 1.1 X10'3 (1.1-4.8); LYMPHOCYTES % (AUTO) 16.6 % (21-51); MEAN CORPUSCULAR HEMOGLOBIN 24.6 PG (27.0-31.0); MEAN CORPUSCULAR HGB CONC 29.5 g/dL (33.0-36.5); MEAN CORPUSCULAR VOLUME 83.6 FL (78-98); MEAN PLATELET VOLUME 8.2 FL (7.4-10.4); MONOCYTES # (AUTO) 0.5 X10'3 (0-0.9); MONOCYTES % (AUTO) 7.7 % (2-12); NEUTROPHILS # (AUTO) 5.1 X10'3 (1.8-7.7); NEUTROPHILS % (AUTO) 75.5 % (42-75); PLATELET COUNT 238 X10'3 (140-440); RED CELL DISTRIBUTION WIDTH 18.4 % (11.5-14.5); WHITE BLOOD COUNT 6.8 X10'3 (4.5-11.0)
[2022-11-17 06:47] LABS: ALANINE AMINOTRANSFERASE 7 U/L (12-78); ALBUMIN 2.7 G/DL (3.4-5.0); ALBUMIN/GLOBULIN RATIO 0.7 (1.1-1.5); ALKALINE PHOSPHATASE 92 IU/L (46-116); ANION GAP 7 (8-16); ASPARTATE AMINO TRANSFERASE 13 U/L (10-37); BILIRUBIN,TOTAL 0.2 MG/DL (0.1-1.0); BLOOD UREA NITROGEN 76 MG/DL (7-18); BUN/CREATININE RATIO 47.2 (6.6-38.0); CALCIUM 8.9 MG/DL (8.5-10.1); CHLORIDE 104 MMOL/L (99-107); CREATININE 1.61 MG/DL (0.40-0.90); GLUCOSE 90 MG/DL (70-104); MAGNESIUM 3.1 MG/DL (1.5-2.4); PHOSPHORUS 3.6 MG/DL (2.3-4.5); POTASSIUM 4.5 MMOL/L (3.5-5.1); SODIUM 141 MMOL/L (135-145); TOTAL CARBON DIOXIDE 29.9 MMOL/L (24-32); TOTAL PROTEIN 6.7 G/DL (6.4-8.2); eGFR 32 ML/MIN
[2022-11-17 07:00] VITALS: BP 139/48
[2022-11-17] MEDS: K and/or MAG REPLACEMENT MC SCH ×2 (08:00→20:00)
[2022-11-17] MEDS: MINERAL OIL/PETROLATUM,WHITE CREAM 107 GM TUBE TP SCH (08:00)
[2022-11-17] MEDS: nystatin 15 GM powder TP SCH ×2 (08:00→20:00)
--- NOTE | 2022-11-17 08:00 | NUR ---
0800: Called RT- s/w Christopher and requested BiPap removal and O2 NC applied. RN to follow. 0915: called RT, no response Addendum: 11/17/22 at 0939 by Rocio Escobar RN Called RT- s/w Mert, requested RT to take off BiPap
[2022-11-17 08:36] LABS: ANISOCYTOSIS 2+; PLATELET ESTIMATE NORMAL; TOTAL CELLS COUNTED 100
[2022-11-17 08:37] LABS: HYPOCHROMASIA 1+; POLYCHROMASIA FEW
[2022-11-17 08:38] LABS: ELLIPTOCYTES FEW; STOMATOCYTES FEW; TEAR DROP CELLS FEW
[2022-11-17] MEDS: linezolid 600mg/300ml PREMIX 300 ML IV SCH ×2 (10:06→19:35)
[2022-11-17] MEDS: methylPREDNISolone sod succ 125mg/2ml vial IV SCH ×2 (10:07→19:38)
[2022-11-17] MEDS: heparin, porcine 5000 units/ml vial SQ SCH ×2 (10:08→19:46)
[2022-11-17] MEDS: metoprolol succinate 25mg (24-HOUR) SR. Tablet PO SCH (10:09)
--- NOTE | 2022-11-17 10:41 | NUR ---
star Randall, performed bed bath and total linen change with Eller care. Wound care performed with mineral oil and nystatin
--- NOTE | 2022-11-17 11:51 | NUR ---
Paged Dr Neville: Maria De Jesus [phone]. BP elevated 160/84, HR 74, s/p metoprolol. Endorses pain, giving Tylenol. No PRN BP meds available. Please advise. Rocio [phone]
[2022-11-17 12:00] VITALS: BP 160/84
[2022-11-17] MEDS: acetaminophen 325mg tablet PO PRN (12:16)
--- NOTE | 2022-11-17 14:11 | NUR ---
Sent page to RT: Maria De Jesus Alcantar is requesting Bipap to come off so she can eat and adjust her dentures. Rocio [phone]
[2022-11-17 16:00] VITALS: BP 151/66
[2022-11-17 18:30] VITALS: BP 138/84
[2022-11-17] MEDS: HYDROcodone/acetaminophen 5mg/325mg tablet PO PRN (18:55)
[2022-11-17 21:56] VITALS: BP 156/76
[2022-11-18 01:49] VITALS: BP 149/82
[2022-11-18] MEDS: levalbuterol 0.63mg/3ml nebule IH SCH ×6 (03:05→23:07)
[2022-11-18 06:34] LABS: BASOPHILS % (AUTO) 0.1 % (0-1); EOSINOPHILS % (AUTO) 0 % (0-6); HEMATOCRIT 37.3 % (35.0-45.0); HEMOGLOBIN 11.4 g/dl (12.0-16.0); LYMPHOCYTES # (AUTO) 1.3 X10'3 (1.1-4.8); LYMPHOCYTES % (AUTO) 15.8 % (21-51); MEAN CORPUSCULAR HEMOGLOBIN 24.9 PG (27.0-31.0); MEAN CORPUSCULAR HGB CONC 30.7 g/dL (33.0-36.5); MEAN CORPUSCULAR VOLUME 81.2 FL (78-98); MEAN PLATELET VOLUME 8.3 FL (7.4-10.4); MONOCYTES # (AUTO) 0.5 X10'3 (0-0.9); MONOCYTES % (AUTO) 5.8 % (2-12); NEUTROPHILS # (AUTO) 6.4 X10'3 (1.8-7.7); NEUTROPHILS % (AUTO) 78.3 % (42-75); PLATELET COUNT 237 X10'3 (140-440); RED BLOOD COUNT 4.59 X10'6 (4.20-5.60); RED CELL DISTRIBUTION WIDTH 18.9 % (11.5-14.5); WHITE BLOOD COUNT 8.2 X10'3 (4.5-11.0)
--- NOTE | 2022-11-18 06:57 | NUR ---
Patient in room PCU 3019. I have received report from JENNIE GOMEZ and had the opportunity to ask questions and assume patient care.
[2022-11-18 07:05] LABS: TOTAL CELLS COUNTED 100
[2022-11-18 07:06] LABS: ANISOCYTOSIS 2+; GIANT PLATELET FEW; PLATELET ESTIMATE NORMAL
[2022-11-18 07:12] LABS: ALANINE AMINOTRANSFERASE 13 U/L (12-78); ALBUMIN 2.7 G/DL (3.4-5.0); ALBUMIN/GLOBULIN RATIO 0.7 (1.1-1.5); ALKALINE PHOSPHATASE 91 IU/L (46-116); ANION GAP 5 (8-16); ASPARTATE AMINO TRANSFERASE 17 U/L (10-37); BILIRUBIN,TOTAL 0.2 MG/DL (0.1-1.0); BLOOD UREA NITROGEN 66 MG/DL (7-18); BUN/CREATININE RATIO 40.7 (6.6-38.0); CALCIUM 8.7 MG/DL (8.5-10.1); CHLORIDE 105 MMOL/L (99-107); CREATININE 1.62 MG/DL (0.40-0.90); GLUCOSE 94 MG/DL (70-104); MAGNESIUM 2.6 MG/DL (1.5-2.4); PHOSPHORUS 3.4 MG/DL (2.3-4.5); POTASSIUM 4.5 MMOL/L (3.5-5.1); SODIUM 141 MMOL/L (135-145); TOTAL CARBON DIOXIDE 30.9 MMOL/L (24-32); TOTAL PROTEIN 6.5 G/DL (6.4-8.2); eGFR 32 ML/MIN
[2022-11-18] MEDS: heparin, porcine 5000 units/ml vial SQ SCH ×2 (07:12→20:53)
[2022-11-18] MEDS: methylPREDNISolone sod succ 125mg/2ml vial IV SCH ×2 (07:12→20:54)
[2022-11-18] MEDS: linezolid 600mg/300ml PREMIX 300 ML IV SCH ×2 (07:13→20:52)
[2022-11-18] MEDS: nystatin 15 GM powder TP SCH ×2 (07:14→21:03)
[2022-11-18] MEDS: metoprolol succinate 25mg (24-HOUR) SR. Tablet PO SCH (07:15)
[2022-11-18] MEDS: MINERAL OIL/PETROLATUM,WHITE CREAM 107 GM TUBE TP SCH (07:15)
[2022-11-18] MEDS: K and/or MAG REPLACEMENT MC SCH ×2 (08:00→20:00)
--- NOTE | 2022-11-18 09:03 | NUR ---
Problems reprioritized. Patient report given, questions answered & plan of care reviewed with DENISE GOMEZ, SHE WAS INFORMED THAT THERE HAS BEEN NO CHANGE IN THE PT SINCE 0600, SHE IS STABLE AND IS ON HF NC WITH A SITTER. SHE WAS TOLD SHE WILL NEED TO DO PHYSICAL ASSESSMENT AND OTHER CHARTING ON PT FOR THE DAY AND PER CHARGE NURSE THEY STATED THAT THE NURSE CAN DO THIS AND ALL OTHER CHARTING FOR THE DAY SINCE THEY WILL BE HERE ALL DAY.
[2022-11-18] MEDS: acetaminophen 325mg tablet PO PRN (10:15)
[2022-11-18 10:39] VITALS: BP 113/84
--- NOTE | 2022-11-18 12:57 | NUR ---
paged Dr Neville: Maria De Jesus 18A. Pt c/o anal pain while defecating. Looks like hemorrhoid? Can we get lido or prep H? Rocio [phone]
[2022-11-18 13:00] VITALS: BP 130/91
[2022-11-18] MEDS ORDERED: phenylephrine/cocoa butter (Preparation H) suppository RC PRN (13:00)
[2022-11-18] MEDS: PHENYLEPH/MIN OIL/PETROLAT hemorrhoid oint 57GM tube RC PRN ×2 (13:39→21:17)
[2022-11-18 18:00] VITALS: BP 146/73
[2022-11-18 22:00] VITALS: BP 152/70
[2022-11-19 02:00] VITALS: BP 152/75
[2022-11-19] MEDS: levalbuterol 0.63mg/3ml nebule IH SCH ×6 (02:45→23:50)
--- NOTE | 2022-11-19 06:43 | NUR ---
Patient in room PCU 3019. I have received report from JENNIE GOMEZ and had the opportunity to ask questions and assume patient care.
[2022-11-19 07:30] VITALS: BP 118/56
[2022-11-19] MEDS: K and/or MAG REPLACEMENT MC SCH ×2 (08:00→20:00)
[2022-11-19] MEDS: nystatin 15 GM powder TP SCH ×2 (08:00→20:01)
[2022-11-19] MEDS: MINERAL OIL/PETROLATUM,WHITE CREAM 107 GM TUBE TP SCH (08:00)
[2022-11-19] MEDS: metoprolol succinate 25mg (24-HOUR) SR. Tablet PO SCH (09:19)
[2022-11-19] MEDS: methylPREDNISolone sod succ 125mg/2ml vial IV SCH ×2 (09:20→19:59)
[2022-11-19] MEDS: heparin, porcine 5000 units/ml vial SQ SCH ×2 (09:22→19:59)
[2022-11-19 09:56] LABS: BASOPHILS % (AUTO) 0.2 % (0-1); EOSINOPHILS % (AUTO) 0.2 % (0-6); HEMATOCRIT 38.1 % (35.0-45.0); HEMOGLOBIN 11.8 g/dl (12.0-16.0); LYMPHOCYTES # (AUTO) 1.9 X10'3 (1.1-4.8); LYMPHOCYTES % (AUTO) 17.4 % (21-51); MEAN CORPUSCULAR HEMOGLOBIN 25.4 PG (27.0-31.0); MEAN CORPUSCULAR HGB CONC 30.9 g/dL (33.0-36.5); MEAN CORPUSCULAR VOLUME 82.2 FL (78-98); MEAN PLATELET VOLUME 8.1 FL (7.4-10.4); MONOCYTES # (AUTO) 0.7 X10'3 (0-0.9); MONOCYTES % (AUTO) 6.3 % (2-12); NEUTROPHILS # (AUTO) 8.1 X10'3 (1.8-7.7); NEUTROPHILS % (AUTO) 75.9 % (42-75); PLATELET COUNT 204 X10'3 (140-440); RED BLOOD COUNT 4.64 X10'6 (4.20-5.60); RED CELL DISTRIBUTION WIDTH 18.6 % (11.5-14.5); WHITE BLOOD COUNT 10.7 X10'3 (4.5-11.0)
[2022-11-19 10:49] LABS: ALANINE AMINOTRANSFERASE 10 U/L (12-78); ALBUMIN 2.6 G/DL (3.4-5.0); ALBUMIN/GLOBULIN RATIO 0.7 (1.1-1.5); ALKALINE PHOSPHATASE 91 IU/L (46-116); ANION GAP 7 (8-16); BILIRUBIN,TOTAL 0.3 MG/DL (0.1-1.0); BLOOD UREA NITROGEN 48 MG/DL (7-18); CALCIUM 8.6 MG/DL (8.5-10.1); CHLORIDE 107 MMOL/L (99-107); GLUCOSE 115 MG/DL (70-104); PHOSPHORUS 3.2 MG/DL (2.3-4.5); POTASSIUM 4.5 MMOL/L (3.5-5.1); SODIUM 138 MMOL/L (135-145); TOTAL CARBON DIOXIDE 23.9 MMOL/L (24-32); TOTAL PROTEIN 6.4 G/DL (6.4-8.2)
[2022-11-19 10:56] LABS: ANISOCYTOSIS 2+; PLATELET ESTIMATE NORMAL; TOTAL CELLS COUNTED 100
[2022-11-19 11:00] VITALS: BP 153/51
[2022-11-19 11:07] LABS: ASPARTATE AMINO TRANSFERASE 14 U/L (10-37); BUN/CREATININE RATIO 37.5 (6.6-38.0); CREATININE 1.28 MG/DL (0.40-0.90); MAGNESIUM 2.5 MG/DL (1.5-2.4); eGFR 42 ML/MIN
--- NOTE | 2022-11-19 11:09 | NUR ---
dr did a stool sample for stat, she was notified of pts low H/H is not doing any blood currently will readdress when sample comes back.
--- NOTE | 2022-11-19 11:39 | NUR ---
Page Accepted Message: [id number] constance pt needs to be medically cleared in your report note in order to have county come assess her for the 5150 per my charge nurse. just wanted to let you know so that can maybe get done today thanks
[2022-11-19 15:00] VITALS: BP 131/49
[2022-11-19] MEDS: HYDROcodone/acetaminophen 5mg/325mg tablet PO PRN (17:52)
[2022-11-19 18:00] VITALS: BP 108/62
--- NOTE | 2022-11-19 18:41 | NUR ---
Problems reprioritized. Patient report given, questions answered & plan of care reviewed with estrella camp.
[2022-11-19 22:00] VITALS: BP 144/60
[2022-11-20 02:00] VITALS: BP 111/46
[2022-11-20] MEDS: levalbuterol 0.63mg/3ml nebule IH SCH ×6 (03:41→23:09)
[2022-11-20 06:21] LABS: BASOPHILS % (AUTO) 0.3 % (0-1); EOSINOPHILS % (AUTO) 0.3 % (0-6); HEMATOCRIT 36.5 % (35.0-45.0); HEMOGLOBIN 11.3 g/dl (12.0-16.0); LYMPHOCYTES # (AUTO) 1.4 X10'3 (1.1-4.8); LYMPHOCYTES % (AUTO) 17.1 % (21-51); MEAN CORPUSCULAR HEMOGLOBIN 25.2 PG (27.0-31.0); MEAN CORPUSCULAR HGB CONC 31.1 g/dL (33.0-36.5); MEAN CORPUSCULAR VOLUME 81.2 FL (78-98); MEAN PLATELET VOLUME 8.3 FL (7.4-10.4); MONOCYTES # (AUTO) 0.4 X10'3 (0-0.9); MONOCYTES % (AUTO) 5.3 % (2-12); NEUTROPHILS # (AUTO) 6.2 X10'3 (1.8-7.7); PLATELET COUNT 204 X10'3 (140-440); RED CELL DISTRIBUTION WIDTH 19.1 % (11.5-14.5); WHITE BLOOD COUNT 8.1 X10'3 (4.5-11.0)
--- NOTE | 2022-11-20 06:30 | NUR ---
Patient report given, questions answered & plan of care reviewed with JASON Bragg.
[2022-11-20 06:39] LABS: ALANINE AMINOTRANSFERASE 13 U/L (12-78); ALBUMIN 2.7 G/DL (3.4-5.0); ALBUMIN/GLOBULIN RATIO 0.8 (1.1-1.5); ALKALINE PHOSPHATASE 93 IU/L (46-116); ANION GAP 5 (8-16); ASPARTATE AMINO TRANSFERASE 17 U/L (10-37); BILIRUBIN,TOTAL 0.3 MG/DL (0.1-1.0); BLOOD UREA NITROGEN 38 MG/DL (7-18); BUN/CREATININE RATIO 34.9 (6.6-38.0); CALCIUM 8.8 MG/DL (8.5-10.1); CHLORIDE 107 MMOL/L (99-107); CREATININE 1.09 MG/DL (0.40-0.90); GLUCOSE 96 MG/DL (70-104); MAGNESIUM 2.2 MG/DL (1.5-2.4); PHOSPHORUS 3.8 MG/DL (2.3-4.5); POTASSIUM 4.5 MMOL/L (3.5-5.1); SODIUM 142 MMOL/L (135-145); TOTAL PROTEIN 6.2 G/DL (6.4-8.2); eGFR 50 ML/MIN
[2022-11-20 06:50] LABS: ANISOCYTOSIS 2+; PLATELET ESTIMATE NORMAL; TOTAL CELLS COUNTED 100
[2022-11-20 07:00] VITALS: BP 109/57
[2022-11-20] MEDS: MINERAL OIL/PETROLATUM,WHITE CREAM 107 GM TUBE TP SCH (08:00)
[2022-11-20] MEDS: heparin, porcine 5000 units/ml vial SQ SCH ×2 (08:00→20:36)
[2022-11-20] MEDS: methylPREDNISolone sod succ 125mg/2ml vial IV SCH ×2 (08:00→20:37)
[2022-11-20] MEDS: K and/or MAG REPLACEMENT MC SCH ×2 (08:00→20:00)
[2022-11-20] MEDS: metoprolol succinate 25mg (24-HOUR) SR. Tablet PO SCH (08:00)
[2022-11-20] MEDS: nystatin 15 GM powder TP SCH ×2 (08:01→20:38)
--- NOTE | 2022-11-20 09:40 | NUR ---
Reassessment: Pt continues eating well, documented with average 89% PO intake since 11/17 meeting estimated nutrient needs. LBM 11/19. No nutrition intervention implemented at this time. Will continue to follow. Recommendations: 1. Continue heart healthy diet 2. Monitor need for nutrition intervention 3. Routine bowel care 4. Weekly scaled wts Addendum: 11/20/22 at [address] Amended: Links added.
[2022-11-20 11:00] VITALS: BP 148/69
[2022-11-20] MEDS: furosemide 20MG tablet PO SCH (20:37)
[2022-11-21 02:00] VITALS: BP 129/59
[2022-11-21] MEDS: levalbuterol 0.63mg/3ml nebule IH SCH ×6 (03:04→22:39)
--- NOTE | 2022-11-21 07:00 | NUR ---
Patient in room U 3019. I have received report from Khadar SHEPPARD and had the opportunity to ask questions and assume patient care. Pt is sitting high fowlers in bed. Pt on 3L NC. No s/s of distress. Pt has c/o pain, please see eMAR for interventions. BLL, call light within reach, frequently used items in reach, frequent rounding, food checkers and cashiers supervisor socks on. Will continue to monitor. Sitter at bed side
[2022-11-21 08:00] VITALS: BP 153/65
[2022-11-21] MEDS: K and/or MAG REPLACEMENT MC SCH ×2 (08:00→20:00)
[2022-11-21] MEDS: nystatin 15 GM powder TP SCH ×2 (08:00→21:54)
[2022-11-21] MEDS: MINERAL OIL/PETROLATUM,WHITE CREAM 107 GM TUBE TP SCH (08:00)
[2022-11-21 09:20] LABS: BASOPHILS % (AUTO) 0.1 % (0-1); EOSINOPHILS % (AUTO) 0.3 % (0-6); HEMATOCRIT 35.2 % (35.0-45.0); LYMPHOCYTES # (AUTO) 1.7 X10'3 (1.1-4.8); LYMPHOCYTES % (AUTO) 16.9 % (21-51); MEAN CORPUSCULAR HEMOGLOBIN 25.5 PG (27.0-31.0); MEAN CORPUSCULAR HGB CONC 31.3 g/dL (33.0-36.5); MEAN CORPUSCULAR VOLUME 81.5 FL (78-98); MEAN PLATELET VOLUME 8.6 FL (7.4-10.4); MONOCYTES # (AUTO) 0.4 X10'3 (0-0.9); MONOCYTES % (AUTO) 4.4 % (2-12); NEUTROPHILS # (AUTO) 7.9 X10'3 (1.8-7.7); NEUTROPHILS % (AUTO) 78.3 % (42-75); PLATELET COUNT 228 X10'3 (140-440); RED BLOOD COUNT 4.31 X10'6 (4.20-5.60); RED CELL DISTRIBUTION WIDTH 19.6 % (11.5-14.5)
[2022-11-21 09:30] LABS: ALANINE AMINOTRANSFERASE 16 U/L (12-78); ALBUMIN 2.7 G/DL (3.4-5.0); ALBUMIN/GLOBULIN RATIO 0.7 (1.1-1.5); ALKALINE PHOSPHATASE 93 IU/L (46-116); ANION GAP 3 (8-16); ASPARTATE AMINO TRANSFERASE 17 U/L (10-37); BILIRUBIN,TOTAL 0.3 MG/DL (0.1-1.0); BLOOD UREA NITROGEN 33 MG/DL (7-18); BUN/CREATININE RATIO 27.5 (6.6-38.0); CALCIUM 8.7 MG/DL (8.5-10.1); CHLORIDE 107 MMOL/L (99-107); GLUCOSE 88 MG/DL (70-104); MAGNESIUM 2.1 MG/DL (1.5-2.4); PHOSPHORUS 3.5 MG/DL (2.3-4.5); POTASSIUM 4.4 MMOL/L (3.5-5.1); SODIUM 142 MMOL/L (135-145); TOTAL PROTEIN 6.4 G/DL (6.4-8.2); eGFR 45 ML/MIN
[2022-11-21] MEDS: metoprolol succinate 25mg (24-HOUR) SR. Tablet PO SCH (09:37)
[2022-11-21] MEDS: furosemide 20MG tablet PO SCH ×2 (09:37→21:54)
[2022-11-21] MEDS: HYDROcodone/acetaminophen 5mg/325mg tablet PO PRN ×2 (09:37→22:00)
[2022-11-21] MEDS: heparin, porcine 5000 units/ml vial SQ SCH ×2 (09:39→21:53)
[2022-11-21] MEDS: methylPREDNISolone sod succ 125mg/2ml vial IV SCH ×2 (09:40→22:03)
--- NOTE | 2022-11-21 10:49 | NUR ---
MD Wiggins DC'd pts sitter. This Pt no longer requires a sitter.
[2022-11-21 11:00] VITALS: BP 122/54
[2022-11-21 15:00] VITALS: BP 128/53
--- NOTE | 2022-11-21 18:46 | NUR ---
Problems reprioritized. Patient report given, questions answered & plan of care reviewed with Trip GOMEZ.
[2022-11-21 22:00] VITALS: BP 114/70
[2022-11-22 02:00] VITALS: BP 120/65
[2022-11-22] MEDS: levalbuterol 0.63mg/3ml nebule IH SCH ×5 (02:50→22:14)
[2022-11-22 06:00] VITALS: BP 178/76
--- NOTE | 2022-11-22 06:26 | NUR ---
Patient in room PCU 3019. I have received report from Trip GOMEZ and had the opportunity to ask questions and assume patient care. Pt laying high fowlers in bed. Pt on 3L NC. No s/s of distress. Pt denies c/o pain at this time. BLL, call light within reach, frequently used items in reach, frequent rouning, clinical training specialist socks on, bed alarm on and audiable. Will continue to monitor.
[2022-11-22] MEDS: metoprolol succinate 25mg (24-HOUR) SR. Tablet PO SCH (08:00)
[2022-11-22] MEDS: K and/or MAG REPLACEMENT MC SCH ×2 (08:00→19:50)
[2022-11-22] MEDS: nystatin 15 GM powder TP SCH ×2 (08:00→19:54)
[2022-11-22] MEDS: MINERAL OIL/PETROLATUM,WHITE CREAM 107 GM TUBE TP SCH (08:00)
[2022-11-22] MEDS: predniSONE 20 mg tablet PO SCH (09:34)
[2022-11-22] MEDS: furosemide 20MG tablet PO SCH ×2 (09:34→19:54)
[2022-11-22] MEDS: acetaminophen 325mg tablet PO PRN (09:36)
[2022-11-22] MEDS: heparin, porcine 5000 units/ml vial SQ SCH ×2 (09:37→19:54)
[2022-11-22 10:39] VITALS: BP 132/67
[2022-11-22 15:27] VITALS: BP 150/88
--- NOTE | 2022-11-22 18:41 | NUR ---
Problems reprioritized. Patient report given, questions answered & plan of care reviewed with Trip GOMEZ.
[2022-11-22 22:00] VITALS: BP 149/69
[2022-11-23 02:00] VITALS: BP 154/69
[2022-11-23] MEDS: levalbuterol 0.63mg/3ml nebule IH SCH ×6 (02:13→22:45)
[2022-11-23 06:00] VITALS: BP 148/73
[2022-11-23 06:37] LABS: BASOPHILS % (AUTO) 0.2 % (0-1); EOSINOPHILS # (AUTO) 0.1 X10'3 (0-0.9); EOSINOPHILS % (AUTO) 1.1 % (0-6); HEMATOCRIT 35.8 % (35.0-45.0); HEMOGLOBIN 11.2 g/dl (12.0-16.0); LYMPHOCYTES # (AUTO) 2.9 X10'3 (1.1-4.8); LYMPHOCYTES % (AUTO) 24.1 % (21-51); MEAN CORPUSCULAR HEMOGLOBIN 25.5 PG (27.0-31.0); MEAN CORPUSCULAR HGB CONC 31.3 g/dL (33.0-36.5); MEAN CORPUSCULAR VOLUME 81.3 FL (78-98); MEAN PLATELET VOLUME 8.6 FL (7.4-10.4); MONOCYTES # (AUTO) 0.8 X10'3 (0-0.9); NEUTROPHILS # (AUTO) 8.1 X10'3 (1.8-7.7); NEUTROPHILS % (AUTO) 67.6 % (42-75); PLATELET COUNT 287 X10'3 (140-440); RED BLOOD COUNT 4.41 X10'6 (4.20-5.60); RED CELL DISTRIBUTION WIDTH 19.5 % (11.5-14.5)
--- NOTE | 2022-11-23 06:40 | NUR ---
Patient in room PCU 3019. I have received report from Trip GOMEZ and had the opportunity to ask questions and assume patient care. Pt is laying semi fowlers in bed, and watching TV comfortably. Pt on RA. No s/s of distress. Pt denies c/o pain at this time. BLL, call ligth within reach, frequently used items in reach, frequent rounding, label remover socks on, bed alarm on, alarm audiable. Will continue to monitor.
[2022-11-23 07:15] LABS: ALANINE AMINOTRANSFERASE 18 U/L (12-78); ALBUMIN 2.9 G/DL (3.4-5.0); ALBUMIN/GLOBULIN RATIO 0.8 (1.1-1.5); ALKALINE PHOSPHATASE 92 IU/L (46-116); ANION GAP 5 (8-16); ASPARTATE AMINO TRANSFERASE 15 U/L (10-37); BILIRUBIN,TOTAL 0.3 MG/DL (0.1-1.0); BLOOD UREA NITROGEN 33 MG/DL (7-18); BUN/CREATININE RATIO 25.8 (6.6-38.0); CALCIUM 8.8 MG/DL (8.5-10.1); CHLORIDE 104 MMOL/L (99-107); CREATININE 1.28 MG/DL (0.40-0.90); GLUCOSE 88 MG/DL (70-104); MAGNESIUM 1.9 MG/DL (1.5-2.4); PHOSPHORUS 3.1 MG/DL (2.3-4.5); POTASSIUM 3.9 MMOL/L (3.5-5.1); SODIUM 141 MMOL/L (135-145); TOTAL CARBON DIOXIDE 32.4 MMOL/L (24-32); TOTAL PROTEIN 6.4 G/DL (6.4-8.2); eGFR 42 ML/MIN
[2022-11-23 07:36] LABS: ANISOCYTOSIS 2+; MICROCYTOSIS 1+; PLATELET ESTIMATE NORMAL; POIKILOCYTOSIS FEW; TOTAL CELLS COUNTED 100
[2022-11-23] MEDS: acetaminophen 325mg tablet PO PRN (08:02)
[2022-11-23] MEDS: metoprolol succinate 25mg (24-HOUR) SR. Tablet PO SCH (08:05)
[2022-11-23] MEDS: predniSONE 20 mg tablet PO SCH (08:05)
[2022-11-23] MEDS: furosemide 20MG tablet PO SCH (08:05)
[2022-11-23] MEDS: MINERAL OIL/PETROLATUM,WHITE CREAM 107 GM TUBE TP SCH (08:08)
[2022-11-23] MEDS: nystatin 15 GM powder TP SCH ×2 (08:08→21:23)
[2022-11-23] MEDS: heparin, porcine 5000 units/ml vial SQ SCH ×2 (08:09→21:22)
[2022-11-23] MEDS: K and/or MAG REPLACEMENT MC SCH ×2 (08:17→20:00)
[2022-11-23 15:00] VITALS: BP 136/70
--- NOTE | 2022-11-23 18:16 | NUR ---
Problems reprioritized. Patient report given, questions answered & plan of care reviewed with Trip GOMEZ.
[2022-11-23 22:00] VITALS: BP 150/74
[2022-11-24] MEDS: levalbuterol 0.63mg/3ml nebule IH SCH ×6 (03:05→23:07)
[2022-11-24] MEDS: acetaminophen 325mg tablet PO PRN (05:20)
[2022-11-24 06:04] LABS: ALANINE AMINOTRANSFERASE 16 U/L (12-78); ALBUMIN 2.9 G/DL (3.4-5.0); ALBUMIN/GLOBULIN RATIO 0.8 (1.1-1.5); ALKALINE PHOSPHATASE 95 IU/L (46-116); ANION GAP 4 (8-16); ASPARTATE AMINO TRANSFERASE 15 U/L (10-37); BILIRUBIN,TOTAL 0.4 MG/DL (0.1-1.0); BLOOD UREA NITROGEN 43 MG/DL (7-18); BUN/CREATININE RATIO 28.7 (6.6-38.0); CALCIUM 8.9 MG/DL (8.5-10.1); CHLORIDE 105 MMOL/L (99-107); GLUCOSE 90 MG/DL (70-104); MAGNESIUM 1.9 MG/DL (1.5-2.4); PHOSPHORUS 3.5 MG/DL (2.3-4.5); POTASSIUM 3.9 MMOL/L (3.5-5.1); SODIUM 140 MMOL/L (135-145); TOTAL CARBON DIOXIDE 31.4 MMOL/L (24-32); TOTAL PROTEIN 6.5 G/DL (6.4-8.2); eGFR 35 ML/MIN
[2022-11-24 06:06] LABS: BASOPHILS # (AUTO) 0.1 X10'3 (0-0.2); BASOPHILS % (AUTO) 0.4 % (0-1); EOSINOPHILS # (AUTO) 0.1 X10'3 (0-0.9); EOSINOPHILS % (AUTO) 0.7 % (0-6); HEMATOCRIT 37.8 % (35.0-45.0); HEMOGLOBIN 11.7 g/dl (12.0-16.0); LYMPHOCYTES # (AUTO) 2.8 X10'3 (1.1-4.8); LYMPHOCYTES % (AUTO) 21.3 % (21-51); MEAN CORPUSCULAR HEMOGLOBIN 25.3 PG (27.0-31.0); MEAN CORPUSCULAR VOLUME 81.5 FL (78-98); MEAN PLATELET VOLUME 9.4 FL (7.4-10.4); MONOCYTES # (AUTO) 1.1 X10'3 (0-0.9); MONOCYTES % (AUTO) 8.1 % (2-12); NEUTROPHILS # (AUTO) 9.1 X10'3 (1.8-7.7); NEUTROPHILS % (AUTO) 69.5 % (42-75); PLATELET COUNT 301 X10'3 (140-440); RED BLOOD COUNT 4.64 X10'6 (4.20-5.60); RED CELL DISTRIBUTION WIDTH 19.6 % (11.5-14.5); WHITE BLOOD COUNT 13.1 X10'3 (4.5-11.0)
[2022-11-24 07:38] LABS: ANISOCYTOSIS 2+; MICROCYTOSIS 1+; PLATELET ESTIMATE NORMAL; TOTAL CELLS COUNTED 100
[2022-11-24] MEDS: K and/or MAG REPLACEMENT MC SCH ×2 (08:00→20:00)
[2022-11-24] MEDS: MINERAL OIL/PETROLATUM,WHITE CREAM 107 GM TUBE TP SCH (08:00)
[2022-11-24] MEDS: metoprolol succinate 25mg (24-HOUR) SR. Tablet PO SCH (08:30)
[2022-11-24] MEDS ORDERED: prednisone 10mg tablet PO SCH (08:30)
[2022-11-24] MEDS: furosemide 20MG tablet PO SCH (08:31)
[2022-11-24] MEDS: heparin, porcine 5000 units/ml vial SQ SCH ×2 (08:31→21:53)
[2022-11-24] MEDS: nystatin 15 GM powder TP SCH ×2 (08:44→21:53)
[2022-11-24 18:00] VITALS: BP 102/67
--- NOTE | 2022-11-24 18:00 | NUR ---
Patient in room PCU 3019. I have received report from Mary GOMEZ and had the opportunity to ask questions and assume patient care.
--- NOTE | 2022-11-24 18:18 | NUR ---
Problems reprioritized. Patient report given, questions answered & plan of care reviewed with Talia GOMEZ, patient stable at transfer of care.
[2022-11-24 20:00] VITALS: BP 120/67
[2022-11-25] VITALS (7 sets, daily range): BP systolic 117–151; BP diastolic 48–80
[2022-11-25] MEDS: levalbuterol 0.63mg/3ml nebule IH SCH ×6 (03:22→23:26)
[2022-11-25] MEDS: acetaminophen 325mg tablet PO PRN (04:24)
--- NOTE | 2022-11-25 06:16 | NUR ---
Problems reprioritized. Patient report given, questions answered & plan of care reviewed with Riana GOMEZ.
[2022-11-25] MEDS: MINERAL OIL/PETROLATUM,WHITE CREAM 107 GM TUBE TP SCH (08:00)
[2022-11-25] MEDS: K and/or MAG REPLACEMENT MC SCH ×2 (08:00→20:00)
[2022-11-25] MEDS: heparin, porcine 5000 units/ml vial SQ SCH ×2 (08:44→21:53)
[2022-11-25] MEDS: sertraline 25mg tablet PO SCH (08:45)
[2022-11-25] MEDS: furosemide 20MG tablet PO SCH (08:45)
[2022-11-25] MEDS: metoprolol succinate 25mg (24-HOUR) SR. Tablet PO SCH (08:45)
[2022-11-25] MEDS: nystatin 15 GM powder TP SCH ×2 (08:47→21:53)
--- NOTE | 2022-11-25 12:07 | NUR ---
F/u 11/25: Pt continues eating well, ~75-100% avg heart healthy diet meeting estimated needs. LBM 11/25 per EMR. No nutrition intervention implemented at this time. Will continue to follow. Recommendations: 1. Continue heart healthy diet 2. Routine bowel care 3. Weekly scaled wts Addendum: 11/25/22 at [address] Amended: Links added.
[2022-11-25] MEDS ORDERED: METO-395 PO (12:45)
[2022-11-25] MEDS ORDERED: PHEN57OI23 RC (12:45)
[2022-11-25] MEDS ORDERED: NYSPWD TP (12:45)
[2022-11-25] MEDS ORDERED: MINE107C TP (12:45)
[2022-11-25] MEDS ORDERED: FURO20TA4 PO (12:45)
[2022-11-25] MEDS ORDERED: SERT-432 PO (12:45)
--- NOTE | 2022-11-25 15:23 | NUR ---
Paged Dr Message: [phone]. Maria De Jesus. Mental Health has no beds. FYI. [facility] [phone] Transaction number: [id number]
--- NOTE | 2022-11-25 16:38 | NUR ---
Patient in room PCU 3019. I have received report from Riana GOMEZ and had the opportunity to ask questions and assume patient care.
--- NOTE | 2022-11-25 17:08 | NUR ---
Student Medication Administration: For this medication-pass time frame, all medication were reviewed, dispensed, administered and documented per hospital policy by .
--- NOTE | 2022-11-25 17:08 | NUR ---
Student documentation: I have reviewed and agree with all interventions, assessments performed and documented by Carol.
--- NOTE | 2022-11-25 18:00 | NUR ---
Patient in room PCU 3019. I have received report from Verena GOMEZ and had the opportunity to ask questions and assume patient care.
--- NOTE | 2022-11-25 18:26 | NUR ---
Problems reprioritized. Patient report given, questions answered & plan of care reviewed with Talia GOMEZ.
[2022-11-26 02:00] VITALS: BP 129/63
[2022-11-26] MEDS: levalbuterol 0.63mg/3ml nebule IH SCH ×3 (03:25→11:18)
--- NOTE | 2022-11-26 06:15 | NUR ---
Patient in room PCU 3019. I have received report from Talia GOMEZ and had the opportunity to ask questions and assume patient care.
--- NOTE | 2022-11-26 06:23 | NUR ---
Problems reprioritized. Patient report given, questions answered & plan of care reviewed with Verena GOMEZ.
[2022-11-26 07:00] VITALS: BP 137/77
[2022-11-26] MEDS: acetaminophen 325mg tablet PO PRN (07:15)
[2022-11-26] MEDS: sertraline 25mg tablet PO SCH (07:15)
[2022-11-26] MEDS: furosemide 20MG tablet PO SCH (07:15)
[2022-11-26] MEDS: heparin, porcine 5000 units/ml vial SQ SCH (07:16)
[2022-11-26] MEDS: metoprolol succinate 25mg (24-HOUR) SR. Tablet PO SCH (07:16)
[2022-11-26] MEDS: nystatin 15 GM powder TP SCH (07:21)
[2022-11-26] MEDS: MINERAL OIL/PETROLATUM,WHITE CREAM 107 GM TUBE TP SCH (07:23)
[2022-11-26] MEDS: K and/or MAG REPLACEMENT MC SCH (07:23)
[2022-11-26 11:50] VITALS: BP 119/65
--- NOTE | 2022-11-26 14:30 | NUR ---
Patient discharged home. IV removed and tele removed and returned to telegraph repeater installer. All belongings and discharge instructions sent home with patient. New medication orders sent to pharmacy. Escorted out by nursing and left via private vehicle with welfare case worker.
== END 2022-11-26 14:30 | disposition home health service (06) | DRG 383 ==
LOC: ER 16:40 → ED HOLD 19:54 → PCU 3S 11-08 12:49
PROVIDERS: ADMIT Internal Medicine; ATTEND Family Medicine
PROC: 5A0935A Assistance with Respiratory Ventilation, Less than 24 Consecutive Hours, High Flow/Velocity Cannula (ICD-10-PCS; 2022-11-10)
PROC: 5A09457 Assistance with Respiratory Ventilation, 24-96 Consecutive Hours, Continuous Positive Airway Pressure (ICD-10-PCS; principal; 2022-11-11)
PROC: 5A09357 Assistance with Respiratory Ventilation, Less than 24 Consecutive Hours, Continuous Positive Airway Pressure (ICD-10-PCS; 2022-11-13)
PROC: 5A09357 Assistance with Respiratory Ventilation, Less than 24 Consecutive Hours, Continuous Positive Airway Pressure (ICD-10-PCS; 2022-11-14)
PROC: 5A09357 Assistance with Respiratory Ventilation, Less than 24 Consecutive Hours, Continuous Positive Airway Pressure (ICD-10-PCS; 2022-11-15)
PROC: 5A09357 Assistance with Respiratory Ventilation, Less than 24 Consecutive Hours, Continuous Positive Airway Pressure (ICD-10-PCS; 2022-11-16)
PROC: 5A09357 Assistance with Respiratory Ventilation, Less than 24 Consecutive Hours, Continuous Positive Airway Pressure (ICD-10-PCS; 2022-11-17)
PROC: 5A0935A Assistance with Respiratory Ventilation, Less than 24 Consecutive Hours, High Flow/Velocity Cannula (ICD-10-PCS; 2022-11-17)
PROC: 5A09357 Assistance with Respiratory Ventilation, Less than 24 Consecutive Hours, Continuous Positive Airway Pressure (ICD-10-PCS; 2022-11-18)
PROC: 5A0935A Assistance with Respiratory Ventilation, Less than 24 Consecutive Hours, High Flow/Velocity Cannula (ICD-10-PCS; 2022-11-18)
PROC: 5A09357 Assistance with Respiratory Ventilation, Less than 24 Consecutive Hours, Continuous Positive Airway Pressure (ICD-10-PCS; 2022-11-19)
DX: L03.115 Cellulitis of right lower limb (principal); J96.22 Acute and chronic respiratory failure with hypercapnia; G93.41 Metabolic encephalopathy; I50.43 Acute on chronic combined systolic (congestive) and diastolic (congestive) heart failure; I13.0 Hypertensive heart and chronic kidney disease with heart failure and stage 1 through stage 4 chronic kidney disease, or unspecified chronic kidney disease; E87.29 Other acidosis; Z20.822 Contact with and (suspected) exposure to COVID-19; E66.2 Morbid (severe) obesity with alveolar hypoventilation; F32.2 Major depressive disorder, single episode, severe without psychotic features; I49.5 Sick sinus syndrome; Z99.81 Dependence on supplemental oxygen; D64.9 Anemia, unspecified; F20.9 Schizophrenia, unspecified; F43.10 Post-traumatic stress disorder, unspecified; I48.20 Chronic atrial fibrillation, unspecified; J43.9 Emphysema, unspecified; L03.116 Cellulitis of left lower limb; N18.30 Chronic kidney disease, stage 3 unspecified; Z86.711 Personal history of pulmonary embolism; Z86.73 Personal history of transient ischemic attack (TIA), and cerebral infarction without residual deficits; Z87.01 Personal history of pneumonia (recurrent); Z91.199 Patient's noncompliance with other medical treatment and regimen due to unspecified reason; Z88.8 Allergy status to other drugs, medicaments and biological substances; Z68.37 Body mass index [BMI] 37.0-37.9, adult
CPT/HCPCS: 36410; 36415; 36600; 71045; 76937; 80048; 80053; 80305; 80320; 81001; 82803; 82948; 83605; 83735; 83880; 84100; 84145; 84443; 84484; 85007; 85008; 85018; 85025; 85651; 86140; 87040; 87811; 93005; 93306; 94640; 94660; 94760; 97110; 97116; 97161; 97530; 97535; 99285; A4333; A4620; A5200; A6212; A6213; A6223; A6250; A6446; A6449; C1751; G0378; J1120; J1644; J1940; J2020; J2060; J2270; J2405; J2543; J2930; J3370; J3490; J7040; J7512; J7614

== ENCOUNTER 2023-03-23 14:31 | Inpatient (IN) | payer MEDICAID ==
[~2023-03-23] VITALS: Ht 165.1 cm; Wt 102.6 kg
[~2023-03-23 14:31] MED LIST changes: -ALBU8HFA PO; -CEPH500C2 PO; +FURO20TA4 PO; +METO-395 PO; +MINE107C TP; -NO HOME MEDS; +NYSPWD TP; -OXYGEN NASALCANN; +PHEN57OI23 RC; +SERT-432 PO; -SULF1TAB49 PO
--- NOTE | 2023-03-23 15:04 | NUR ---
Dr. Flores came by to see the patient. He saw the wounds on her legs with maggots
--- NOTE | 2023-03-23 15:59 | NUR ---
Still attempting to place an IV for this patient.
[2023-03-23 17:20] LABS: BASOPHILS # (AUTO) 0.1 X10'3 (0-0.2); BASOPHILS % (AUTO) 0.6 % (0-1); EOSINOPHILS % (AUTO) 0.2 % (0-6); LYMPHOCYTES # (AUTO) 0.8 X10'3 (1.1-4.8); LYMPHOCYTES % (AUTO) 7.7 % (21-51); MEAN PLATELET VOLUME 7.9 FL (7.4-10.4); MONOCYTES # (AUTO) 1.2 X10'3 (0-0.9); MONOCYTES % (AUTO) 10.5 % (2-12); PLATELET COUNT 382 X10'3 (140-440); WHITE BLOOD COUNT 11.1 X10'3 (4.5-11.0)
[2023-03-23 17:26] LABS: ALANINE AMINOTRANSFERASE 10 U/L (12-78); ALBUMIN 2.2 G/DL (3.4-5.0); ALBUMIN/GLOBULIN RATIO 0.5 (1.1-1.5); ALKALINE PHOSPHATASE 114 IU/L (46-116); ANION GAP 4 (8-16); ASPARTATE AMINO TRANSFERASE 11 U/L (10-37); BILIRUBIN,TOTAL 0.3 MG/DL (0.1-1.0); BLOOD UREA NITROGEN 17 MG/DL (7-18); BUN/CREATININE RATIO 14.9 (10.0-20.0); CHLORIDE 106 MMOL/L (99-107); CREATININE 1.14 MG/DL (0.40-0.90); GLUCOSE 95 MG/DL (70-104); POTASSIUM 4.2 MMOL/L (3.5-5.1); SODIUM 141 MMOL/L (135-145); TOTAL CARBON DIOXIDE 30.7 MMOL/L (24-32); eGFR 47 ML/MIN
[2023-03-23 17:31] LABS: CALCIUM 8.3 MG/DL (8.5-10.1)
[2023-03-23 17:45] LABS: HEMATOCRIT 30.9 % (35.0-45.0); HEMOGLOBIN 9.6 g/dl (12.0-16.0); MEAN CORPUSCULAR HEMOGLOBIN 23.6 PG (27.0-31.0); MEAN CORPUSCULAR HGB CONC 31.1 g/dL (33.0-36.5); MEAN CORPUSCULAR VOLUME 75.8 FL (78-98); RED BLOOD COUNT 4.07 X10'6 (4.20-5.60); RED CELL DISTRIBUTION WIDTH 16.2 % (11.5-14.5)
[2023-03-23] MEDS ORDERED: CefTRIAXone 2gm/D5W 50ml BAG 50 ML IV ONE ×2 (18:10→19:10)
--- NOTE | 2023-03-23 19:23 | NUR ---
FIRST DOSE OF [place] COMPLETED AND FOUND TO BE NOT ATTACHED TO PT. AWARE. NEW DOSE ORDERED.
--- NOTE | 2023-03-24 06:34 | NUR ---
RN CALLED AND LEFT A VM FOR YANCY CLEMENTE TO CONFIRM THAT APS WAS CONTACTED P/T PT BEING D/C.
--- NOTE | 2023-03-24 07:16 | NUR ---
RN CK PT BG AND IT WAS 65. RN PROVIDED JUICE AND OBTAINED ORD FOR REG DIET FROM DR HENRY. RN CALLED DIETARY AND LEFT VM/SENT FAX FOR REG DIET TRAY.
--- NOTE | 2023-03-24 07:53 | NUR ---
RN JOYS PT BG AND GOT FALSE READING OF 36. JOSY SHOWS BG HAS IMPROVED TO 97. RN WILL GET BREAKFAST TRAY FOR PT.
[2023-03-24] MEDS ORDERED: levalbuterol 1.25mg/0.5ml nebule IH ONE (11:25)
[2023-03-24] MEDS ORDERED: LEVALBUTEROL HCL 1.25 MG/3 ML VIAL.NEB INH ONE (11:30)
--- NOTE | 2023-03-24 11:30 | NUR ---
PER DR HENRY RN MAY ORD ONE TIME XOPENEX NEB TX FOR SOB AT REST. ORD PLACED. RT PAGED TO COME GIVE TX JUAN ALBERTO.
--- NOTE | 2023-03-24 11:36 | NUR ---
PER PHARM XOPENEX NOT STOCKED IN ED Kynded. RN CALLED PHARM AND REQ THEY DELIVER AND WILL PAGE RT ONCE ITS HERE.
--- NOTE | 2023-03-24 11:38 | NUR ---
RN LEFT VM FOR CHNYA HAINES TO INQUIRE IF PT WILL BE ADMITTED OR D/C.
--- NOTE | 2023-03-24 11:47 | NUR ---
PHARMACY DELIVERED XOPENEX TO ED. RN PAGED RT TO NOTIFY THEM AND REQ RT TX JUAN ALBERTO.
--- NOTE | 2023-03-24 14:02 | NUR ---
PRESSURE ULCER EDUCATION: DEFINITION: A pressure ulcer is an area of skin that breaks down when you stay in one position too long. The constant pressure against the skin reduces the blood flow to that area and the affected tissue dies. CAUSES: "Being bedridden or in a wheelchair "Fragile skin "Having a chronic condition, such as diabetes or vascular disease "Inability to move certain parts of your body without assistance "Older age "Incontinence of urine or stool SYMPTOMS: "A reddened area that DOES NOT turn white when pressed on - this can be the beginning of a pressure ulcer "A blister, deep sore or a crater - these can be advanced pressure ulcers FIRST AID: "Relieve the pressure on this area "Keep the area clean and dry "Call your primary doctor if you see any of the above symptoms "DO NOT massage the area "DO NOT use a donut shaped or ring shaped pillow- these actually interfere with the blood flow and cause complications PREVENTION: "Check for pressure ulcers everyday "Change position at least every two hours to relieve pressure "Use items that help relieve pressure- pillows, sheepskin, foam padding, and powders. "Keep skin clean and dry "Eat healthy well balanced meals "Exercise daily IF YOU SEE ANY OF THESE SYMPTOMS WHILE IN THE HOSPITAL - TELL YOUR NURSE IMMEDIATELY. IF YOU SEE ANY OF THESE SYMPTOMS WHILE AT HOME OR HAVE ANY QUESTIONS OR CONCERNS ABOUT PRESSURE ULCERS - CALL YOUR PRIMARY DOCTOR IMMEDIATELY. Addendum: 03/24/23 at 1403 by Amrit Merrill RN Amended: Links added.
--- NOTE | 2023-03-24 15:56 | NUR ---
ELIZA WITH [facility] CALLED AND NOTIFIED THE RN THAT THEY RECOMMEND THE PT GETS A MENTAL HEALTH EVAL PRIOR TO BEING DISCHARGE. ELIZA CAN BE REACHED AT [phone] OR [place] OFFICE ASK FOR NICOLE [phone]. RN CALLED AND LEFT A VM FOR CHYNA HAINES WITH THIS INFO.
--- NOTE | 2023-03-24 16:20 | NUR ---
PER YANCY CLEMENTE SHE WILL CONTACT [facility] WITH [facility] AND NOTIFY RN IF MENTAL HEALTH EVAL IS REQ PRIOR TO D/C. ALSO PER YANCY AN APS WAS FILED FOR THIS PT. RN WILL WAIT TO HEAR BACK FROM HER REGARDING MENTAL HEALTH EVAL. RN NOTIFIED SURFACE GRINDER TENDER DEBBIE.
[2023-03-24] MEDS ORDERED: METO-395 PO ×2 (16:54)
[2023-03-24] MEDS ORDERED: FURO-150 PO ×2 (16:54)
[2023-03-24] MEDS ORDERED: POTA-206 PO ×2 (16:54)
[2023-03-24] MEDS ORDERED: LEVO-65 PO ×2 (16:54)
--- NOTE | 2023-03-24 16:55 | NUR ---
PT WAS ABLE TO STAND AND WALK WITH HER WALKER. PT DOES NOT HAVE AN O2 TANK AT THIS HOSPITAL AND DOES NOT KNOW ANYONE WHO CAN BRING IT. RN WILL NOTIFY PUBLIC TRANSIT BUS DRIVER AND
--- NOTE | 2023-03-24 17:03 | NUR ---
PT AGREED FOR RN TO TRY TO CONTACT THE CONTACTS ON FILE [facility] AND [facility] TO SEE IF THEY CAN BRING O2 TANK TO HOSPITAL SO PT CAN BE DISCHARGED. RN CALLED AND LEFT A VM FOR [place] AND THE NUMBER FOR [facility] HAS BEEN DISCONNECTED.
--- NOTE | 2023-03-24 17:47 | NUR ---
PAGE SENT OUT TO YANCY GREEN CHAIN OFFBEARER
--- NOTE | 2023-03-24 17:59 | NUR ---
GLORIA BUTLER RN PAGED SOCIAL WORK TO OBTAIN AN O2 TANK SO THAT PT MAY BE DISCHARGED.
[2023-03-24] MEDS: nystatin 15 GM powder TP SCH (20:00)
[2023-03-25] VITALS (13 sets, daily range): BP systolic 96–147; BP diastolic 48–80
--- NOTE | 2023-03-25 00:16 | NUR ---
Patient sleeping comfortably on hospital bed, will continue to monitor.
--- NOTE | 2023-03-25 07:54 | NUR ---
pts [facility] [phone]. Contacted Jesus (all source collection manager), [facility] to see if we can arrange to michelle service for discharge. Housing maintance: [phone]
[2023-03-25] MEDS ORDERED: etomidate 2mg/ml inj. ONE (08:00)
[2023-03-25] MEDS: nystatin 15 GM powder TP SCH ×2 (08:00→20:47)
[2023-03-25] MEDS ORDERED: rocuronium 10mg/ml inj IV ONE ×2 (08:00→12:05)
--- NOTE | 2023-03-25 08:19 | NUR ---
SPOKE WITH TONY FROM [facility]ULT [facility]. I ASKED FOR HER TO ASSIST WITH CALLING THE APARTMENT MANAGEMENT TO OBTAIN ACCESS INTO THE PT'S APARTMENT.
--- NOTE | 2023-03-25 08:31 | NUR ---
CALLED [facility] [phone] AND LEFT A MESSAGE ON THEIR MACHINE EXPLAINING THE SITUATION AND ASKED FOR THEM TO CALL US BACK.
--- NOTE | 2023-03-25 09:05 | NUR ---
GOT A CALL BACK FROM ROSAURA WITH [facility], HE ADVISES THAT A GENTLEMAN WAS SEEN ACCESSING HER APARTMENT, I WILL ASK THE PT ABOUT HIM.
[2023-03-25] MEDS ORDERED: LEVALBUTEROL HCL 1.25 MG/3 ML VIAL.NEB INH ONE (09:55)
--- NOTE | 2023-03-25 09:55 | NUR ---
PT IS NOT RESPONDING APPROPRIATELY, RESPIRATIONS ARE 36 AND SATS 87% 4LNC, PROVIDER WAS MADE AWARE, ORDERED A NEB TREATMENT AND A REASSESSMENT AFTER THE TREATMENT
[2023-03-25] MEDS ORDERED: normal saline 1000ML IV soln IVB ONE (11:40)
[2023-03-25 11:45] LABS: ABG PO2 (T) 73.1 mmHg (75.0-100.0); ALLEN'S TEST POSITIVE; FCOHb 1.2 % (0.0-3.9); FLOW 4 L/min; FMetHb 0.3 % (0.0-1.5); FO2Hb 91.6 % (94-97); TOTAL HEMOGLOBIN 12.7 G/dl (12.0-16.0)
[2023-03-25] MEDS ORDERED: etomidate 2mg/ml inj. IV ONE (12:05)
[2023-03-25 12:06] LABS: BASOPHILS % (AUTO) 0.1 % (0-1); EOSINOPHILS # (AUTO) 0.1 X10'3 (0-0.9); EOSINOPHILS % (AUTO) 0.4 % (0-6); LYMPHOCYTES # (AUTO) 0.3 X10'3 (1.1-4.8); LYMPHOCYTES % (AUTO) 2.6 % (21-51); MEAN PLATELET VOLUME 7.9 FL (7.4-10.4); MONOCYTES # (AUTO) 0.8 X10'3 (0-0.9); MONOCYTES % (AUTO) 6.3 % (2-12); NEUTROPHILS # (AUTO) 11.3 X10'3 (1.8-7.7); NEUTROPHILS % (AUTO) 90.6 % (42-75)
[2023-03-25 12:12] LABS: ALANINE AMINOTRANSFERASE 16 U/L (12-78); ALBUMIN 2.3 G/DL (3.4-5.0); ALBUMIN/GLOBULIN RATIO 0.4 (1.1-1.5); ALKALINE PHOSPHATASE 146 IU/L (46-116); ANION GAP 4 (8-16); ASPARTATE AMINO TRANSFERASE 18 U/L (10-37); BILIRUBIN,TOTAL 0.2 MG/DL (0.1-1.0); BLOOD UREA NITROGEN 35 MG/DL (7-18); BUN/CREATININE RATIO 23.8 (10.0-20.0); CALCIUM 9.2 MG/DL (8.5-10.1); CHLORIDE 105 MMOL/L (99-107); CREATININE 1.47 MG/DL (0.40-0.90); GLUCOSE 126 MG/DL (70-104); SODIUM 139 MMOL/L (135-145); TOTAL CARBON DIOXIDE 29.6 MMOL/L (24-32); TOTAL PROTEIN 8.1 G/DL (6.4-8.2); eGFR 35 ML/MIN
--- NOTE | 2023-03-25 12:15 | NUR ---
INTUBATION ADMINISTERED 30MG ETOMIDATE 100 OF ROCC 7.5 TUBE PLACEMENT 23 AT THE TEETH PT TOLERATED WELL. POSITIVE COLOR CHANGE AND BILAT BREATH SOUNDS AFTER PLACEMENT
[2023-03-25 12:16] LABS: POTASSIUM 6.3 MMOL/L (3.5-5.1)
[2023-03-25 12:35] LABS: HEMATOCRIT 41.2 % (35.0-45.0); HEMOGLOBIN 12.4 g/dl (12.0-16.0); MEAN CORPUSCULAR HEMOGLOBIN 23.6 PG (27.0-31.0); MEAN CORPUSCULAR VOLUME 78.8 FL (78-98); RED BLOOD COUNT 5.23 X10'6 (4.20-5.60); RED CELL DISTRIBUTION WIDTH 15.9 % (11.5-14.5); WHITE BLOOD COUNT 12.2 X10'3 (4.5-11.0)
[2023-03-25 12:36] LABS: PLATELET COUNT 403 X10'3 (140-440)
[2023-03-25] MEDS: propofol 1000mg/100ml bottle 100 ML IV SCH ×2 (12:56→21:41)
[2023-03-25] MEDS ORDERED: acetaminophen 325mg tablet PO PRN (14:30)
[2023-03-25] MEDS ORDERED: potassium Cl 20 mEq SR tablet PO PRN ×2 (14:30)
[2023-03-25] MEDS ORDERED: ondansetron/PF 4mg/2ml inj IV PRN (14:30)
[2023-03-25] MEDS ORDERED: potassium Cl 40MEQ/1/2NS 520ml 520 ML IV PRN (14:30)
[2023-03-25] MEDS ORDERED: magnesium 4gm in 100ml NS 100 ML IV PRN (14:30)
[2023-03-25] MEDS ORDERED: magnesium hydroxide 30ml (MOM) UD suspension PO PRN (14:30)
[2023-03-25] MEDS ORDERED: magnesium Cl slow-release 64mg tablet PO PRN (14:30)
[2023-03-25] MEDS ORDERED: propofol 1000mg/100ml bottle 100 ML IV SCH (14:30)
[2023-03-25] MEDS ORDERED: mag hydrox/Alum hydrox/simeth 30ml oral suspension PO PRN (14:30)
[2023-03-25] MEDS ORDERED: magnesium 2GM in 50ml NS 50 ML IV PRN (14:30)
[2023-03-25] MEDS ORDERED: vancomycin/NS 1 GM ADD-VANTAGE 250 ML IV SCH ×2 (15:00→20:00)
[2023-03-25] MEDS ORDERED: piperacillin/tazo 3.375gm/50ml 50 ML IV STA (15:18)
[2023-03-25] MEDS: FENTANYL-0.9 % NACL/PF 100 ML IV PRN ×2 (15:41→22:03)
--- NOTE | 2023-03-25 16:00 | NUR ---
Patient in room ICU 2039. I have received report from Yves GOMEZ and had the opportunity to ask questions and assume patient care.
[2023-03-25] MEDS ORDERED: PALI1.5T2 PO (16:40)
[2023-03-25] MEDS ORDERED: METO-384 PO (16:40)
[2023-03-25] MEDS ORDERED: SERT-432 PO (16:58)
[2023-03-25] MEDS ORDERED: FURO-150 PO (16:58)
[2023-03-25] MEDS ORDERED: vancomycin 1,750 MG in NS 350ml IV soln IV ONE (17:00)
[2023-03-25 17:14] LABS: ABG BASE EXCESS 1.3 mmol/L (-2.0-2.0); ABG HCO3 30.9 mmol/L (22.0-26.0); ABG PCO2 (T) 78.3 mmHg (32.0-45.0); ABG PO2 (T) 61.7 mmHg (75.0-100.0); ALLEN'S TEST POSITIVE; FCOHb 0.5 % (0.0-3.9); FO2Hb 92.5 % (94-97); PEEP 10 cm H2O; RESPIRATORY RATE 25 b/min; TIDAL VOLUME 300 mL; TOTAL HEMOGLOBIN 11.5 G/dl (12.0-16.0)
[2023-03-25] MEDS: metroNIDAZOLE-Flagyl 500mg/NS 100 ML IV SCH (17:44)
--- NOTE | 2023-03-25 18:24 | NUR ---
Problems reprioritized. Patient report given, questions answered & plan of care reviewed with Jackie GOMEZ.
[2023-03-25 18:28] LABS: ALANINE AMINOTRANSFERASE 12 U/L (12-78); ALBUMIN 1.8 G/DL (3.4-5.0); ALBUMIN/GLOBULIN RATIO 0.4 (1.1-1.5); ALKALINE PHOSPHATASE 116 IU/L (46-116); ANION GAP 5 (8-16); ASPARTATE AMINO TRANSFERASE 13 U/L (10-37); BILIRUBIN,TOTAL 0.2 MG/DL (0.1-1.0); BLOOD UREA NITROGEN 37 MG/DL (7-18); BUN/CREATININE RATIO 26.2 (10.0-20.0); CALCIUM 8.5 MG/DL (8.5-10.1); CHLORIDE 109 MMOL/L (99-107); CREATININE 1.41 MG/DL (0.40-0.90); GLUCOSE 84 MG/DL (70-104); SODIUM 145 MMOL/L (135-145); TOTAL CARBON DIOXIDE 31.1 MMOL/L (24-32); TOTAL PROTEIN 6.3 G/DL (6.4-8.2); eGFR 37 ML/MIN
[2023-03-25] MEDS: K and/or MAG REPLACEMENT MC SCH (20:00)
[2023-03-25] MEDS: enoxaparin 40mg/0.4ml syringe SQ SCH (20:47)
[2023-03-25] MEDS: docusate sod 100mg capsule PO SCH (20:47)
[2023-03-26] VITALS (33 sets, daily range): BP systolic 88–137; BP diastolic 42–70
[2023-03-26] MEDS: metroNIDAZOLE-Flagyl 500mg/NS 100 ML IV SCH ×3 (00:20→17:15)
[2023-03-26] MEDS: piperacillin/tazo 3.375gm/50ml 50 ML IV SCH ×3 (00:20→17:15)
[2023-03-26 03:27] LABS: ABG HCO3 31.4 mmol/L (22.0-26.0); ABG OXYGEN SATURATION 98.1 % (94-97); ABG PCO2 (T) 55.9 mmHg (32.0-45.0); ALLEN'S TEST POSITIVE; FCOHb 0.3 % (0.0-3.9); FMetHb 0.1 % (0.0-1.5); FO2Hb 97.7 % (94-97); PATIENT TEMPERATURE 36.8; PEEP 10 cm H2O; RESPIRATORY RATE 25 b/min; TIDAL VOLUME 300 mL; TOTAL HEMOGLOBIN 9.8 G/dl (12.0-16.0)
[2023-03-26 03:43] LABS: BASOPHILS % (AUTO) 0.1 % (0-1); EOSINOPHILS % (AUTO) 0.5 % (0-6); HEMATOCRIT 29.3 % (35.0-45.0); HEMOGLOBIN 8.9 g/dl (12.0-16.0); LYMPHOCYTES # (AUTO) 0.8 X10'3 (1.1-4.8); LYMPHOCYTES % (AUTO) 9.6 % (21-51); MEAN CORPUSCULAR HEMOGLOBIN 23.7 PG (27.0-31.0); MEAN CORPUSCULAR HGB CONC 30.4 g/dL (33.0-36.5); MEAN CORPUSCULAR VOLUME 77.9 FL (78-98); MEAN PLATELET VOLUME 7.8 FL (7.4-10.4); MONOCYTES # (AUTO) 0.7 X10'3 (0-0.9); MONOCYTES % (AUTO) 8.3 % (2-12); NEUTROPHILS # (AUTO) 7.1 X10'3 (1.8-7.7); NEUTROPHILS % (AUTO) 81.5 % (42-75); PLATELET COUNT 333 X10'3 (140-440); RED BLOOD COUNT 3.76 X10'6 (4.20-5.60); RED CELL DISTRIBUTION WIDTH 16.2 % (11.5-14.5); WHITE BLOOD COUNT 8.7 X10'3 (4.5-11.0)
[2023-03-26 03:53] LABS: APTT 34 SECONDS (22-32)
[2023-03-26 04:01] LABS: ALANINE AMINOTRANSFERASE 10 U/L (12-78); ALBUMIN 1.7 G/DL (3.4-5.0); ALBUMIN/GLOBULIN RATIO 0.4 (1.1-1.5); ALKALINE PHOSPHATASE 99 IU/L (46-116); ANION GAP 3 (8-16); ASPARTATE AMINO TRANSFERASE 10 U/L (10-37); BILIRUBIN,TOTAL 0.2 MG/DL (0.1-1.0); BLOOD UREA NITROGEN 38 MG/DL (7-18); BUN/CREATININE RATIO 24.4 (10.0-20.0); CALCIUM 8.3 MG/DL (8.5-10.1); CHLORIDE 111 MMOL/L (99-107); CREATININE 1.56 MG/DL (0.40-0.90); GLUCOSE 87 MG/DL (70-104); MAGNESIUM 2.2 MG/DL (1.5-2.4); PHOSPHORUS 1.8 MG/DL (2.3-4.5); POTASSIUM 4.3 MMOL/L (3.5-5.1); SODIUM 146 MMOL/L (135-145); TOTAL CARBON DIOXIDE 31.8 MMOL/L (24-32); TOTAL PROTEIN 5.7 G/DL (6.4-8.2); eGFR 33 ML/MIN
--- NOTE | 2023-03-26 06:30 | NUR ---
Patient in room ICU 2039. I have received report from shalom and had the opportunity to ask questions and assume patient care.
--- NOTE | 2023-03-26 06:44 | NUR ---
Problems reprioritized. Patient report given, questions answered & plan of care reviewed with TIGRE RN.
[2023-03-26] MEDS: docusate sod 100mg capsule PO SCH ×2 (08:00→19:50)
[2023-03-26] MEDS: K and/or MAG REPLACEMENT MC SCH ×2 (08:00→19:50)
[2023-03-26] MEDS: nystatin 15 GM powder TP SCH ×2 (08:43→19:56)
[2023-03-26] MEDS ORDERED: furosemide 10 MG/1 ML 10ml inj IV ONE (08:50)
--- NOTE | 2023-03-26 11:00 | NUR ---
diprivan gtt off for 2 hrs, pt quickly able to open eyes, hold up 1 finger, squeeze hands, nods and looks at nurse. became restless and painful and restless with wound care to lower ext by woc. diprivan restarted and fentanyl bolus. able to decrease fio2 from 80 to 60%, but still with peep of 10. lasix 80mg given with good response, will replace phos
[2023-03-26] MEDS: furosemide 40mg/4ml inj IV SCH ×4 (11:18→23:53)
[2023-03-26] MEDS: FENTANYL-0.9 % NACL/PF 100 ML IV PRN (11:49)
--- NOTE | 2023-03-26 12:06 | NUR ---
Malnutrition/TF consults: Pt admit for acute on chronic respiratory acidosis with BLE wounds, currently intubated with Propofol running at 10 mcg/kg/min per RN (6.05 mL/hr) providing 160 kcal/day. MD would like to start TF and requests no water flushes at this time in view of CHF, see recs below. Wound care has been consulted for skin assessment, pending at this time. Pt unsure of wt loss though with decreased appetite/PO intake per malnutrition risk screen with RN. Current scaled wt is stable with scaled wt hx in EMR. Pt documented with 100% PO intake of first meal on regular diet prior to intubation and NPO status. Pt observed at bedside with no fat or muscle wasting appreciated. Pt currently lacks a minimum of two criteria for malnutrition. Will continue to follow closely. Recommendations: 1) Given Propofol at 6.05 mL/hr (160 kcal/day), continuous Vital HP with 70 mL/hr goal rate to provide 1680 mL total volume/day, 1680 kcal, 147 g protein, and 1405 mL water 2) Monitor Propofol rate and need to adjust TF recs 3) No additional water flush per MD; monitor serum Na 4) Prealbumin q Thursday/ 5) Daily scaled weights 6) Routine bowel care Addendum: 03/26/23 at [address] Amended: Links added.
--- NOTE | 2023-03-26 14:37 | NUR ---
PRESSURE ULCER EDUCATION: DEFINITION: A pressure ulcer is an area of skin that breaks down when you stay in one position too long. The constant pressure against the skin reduces the blood flow to that area and the affected tissue dies. CAUSES: "Being bedridden or in a wheelchair "Fragile skin "Having a chronic condition, such as diabetes or vascular disease "Inability to move certain parts of your body without assistance "Older age "Incontinence of urine or stool SYMPTOMS: "A reddened area that DOES NOT turn white when pressed on - this can be the beginning of a pressure ulcer "A blister, deep sore or a crater - these can be advanced pressure ulcers FIRST AID: "Relieve the pressure on this area "Keep the area clean and dry "Call your primary doctor if you see any of the above symptoms "DO NOT massage the area "DO NOT use a donut shaped or ring shaped pillow- these actually interfere with the blood flow and cause complications PREVENTION: "Check for pressure ulcers everyday "Change position at least every two hours to relieve pressure "Use items that help relieve pressure- pillows, sheepskin, foam padding, and powders. "Keep skin clean and dry "Eat healthy well balanced meals "Exercise daily IF YOU SEE ANY OF THESE SYMPTOMS WHILE IN THE HOSPITAL - TELL YOUR NURSE IMMEDIATELY. IF YOU SEE ANY OF THESE SYMPTOMS WHILE AT HOME OR HAVE ANY QUESTIONS OR CONCERNS ABOUT PRESSURE ULCERS - CALL YOUR PRIMARY DOCTOR IMMEDIATELY. Addendum: 03/26/23 at 1438 by Madison Yepez LVN Amended: Links added.
[2023-03-26] MEDS: mineral oil/petrolatum ophthal oint EACHEYE SCH ×2 (15:02→19:55)
[2023-03-26] MEDS: propofol 1000mg/100ml bottle 100 ML IV SCH ×2 (15:02→20:20)
[2023-03-26] MEDS: Neutra Phos packet OGT SCH ×2 (15:12→20:10)
[2023-03-26] MEDS: vancomycin/NS 1 GM ADD-VANTAGE 250 ML IV SCH (17:25)
[2023-03-26 18:44] LABS: MAGNESIUM 2.1 MG/DL (1.5-2.4); POTASSIUM 3.8 MMOL/L (3.5-5.1)
[2023-03-26] MEDS: enoxaparin 40mg/0.4ml syringe SQ SCH (19:56)
[2023-03-26] MEDS ORDERED: mineral oil/petrolatum ophthal oint EACHEYE SCH (20:00)
--- NOTE | 2023-03-26 23:19 | NUR ---
Rounds done with tele MD Dr. Felder. All care/assessments/vitals/labs discussed. MD would like to hold the next dose of lasix for now given her rising creatinine and hypernatremia. Day team to discuss keeping it as is or reducing it's frequency. MD made aware she is not on GI prophylaxis and he said he will take care of this. Nutrition reviewed and acceptable per MD, glucose control adequate.
[2023-03-27] VITALS (36 sets, daily range): BP systolic 77–143; BP diastolic 41–89
[2023-03-27] MEDS: FENTANYL-0.9 % NACL/PF 100 ML IV PRN ×3 (00:34→20:46)
[2023-03-27] MEDS ORDERED: NORepinephrine 8mg/ 250ml NS 250 ML IV PRN (01:00)
[2023-03-27] MEDS: propofol 1000mg/100ml bottle 100 ML IV SCH ×4 (01:02→23:50)
[2023-03-27 01:03] LABS: BASOPHILS % (AUTO) 0.5 % (0-1); EOSINOPHILS # (AUTO) 0.1 X10'3 (0-0.9); EOSINOPHILS % (AUTO) 1.2 % (0-6); LYMPHOCYTES # (AUTO) 1.3 X10'3 (1.1-4.8); LYMPHOCYTES % (AUTO) 14.4 % (21-51); MEAN PLATELET VOLUME 7.9 FL (7.4-10.4); MONOCYTES # (AUTO) 0.8 X10'3 (0-0.9); MONOCYTES % (AUTO) 9.1 % (2-12); NEUTROPHILS # (AUTO) 6.7 X10'3 (1.8-7.7); NEUTROPHILS % (AUTO) 74.8 % (42-75); PLATELET COUNT 341 X10'3 (140-440); RED CELL DISTRIBUTION WIDTH 16.1 % (11.5-14.5); WHITE BLOOD COUNT 8.9 X10'3 (4.5-11.0)
[2023-03-27 01:10] LABS: APTT 34 SECONDS (22-32)
[2023-03-27 01:12] LABS: % IRON SATURATION 5 % (11-46); IRON 10 UG/DL (49-151); TOTAL IRON BINDING CAPACITY 209 UG/DL (259-388)
[2023-03-27 01:31] LABS: ALANINE AMINOTRANSFERASE 10 U/L (12-78); ALBUMIN 1.8 G/DL (3.4-5.0); ALBUMIN/GLOBULIN RATIO 0.4 (1.1-1.5); ALKALINE PHOSPHATASE 100 IU/L (46-116); ANION GAP 5 (8-16); ASPARTATE AMINO TRANSFERASE 10 U/L (10-37); BILIRUBIN,TOTAL 0.4 MG/DL (0.1-1.0); BLOOD UREA NITROGEN 43 MG/DL (7-18); BUN/CREATININE RATIO 21.3 (10.0-20.0); CALCIUM 8.4 MG/DL (8.5-10.1); CHLORIDE 107 MMOL/L (99-107); CREATININE 2.02 MG/DL (0.40-0.90); FERRITIN 85 NG/ML (8-252); GLUCOSE 106 MG/DL (70-104); PHOSPHORUS 3.5 MG/DL (2.3-4.5); POTASSIUM 3.5 MMOL/L (3.5-5.1); PREALBUMIN 7.4 MG/DL (19-36); SODIUM 150 MMOL/L (135-145); TOTAL CARBON DIOXIDE 38.4 MMOL/L (24-32); TOTAL PROTEIN 6.6 G/DL (6.4-8.2); eGFR 24 ML/MIN
[2023-03-27 01:39] LABS: HEMOGLOBIN 9.6 g/dl (12.0-16.0); MEAN CORPUSCULAR HEMOGLOBIN 24.2 PG (27.0-31.0); MEAN CORPUSCULAR HGB CONC 31.9 g/dL (33.0-36.5); MEAN CORPUSCULAR VOLUME 75.8 FL (78-98); RED BLOOD COUNT 3.96 X10'6 (4.20-5.60)
[2023-03-27] MEDS: mineral oil/petrolatum ophthal oint EACHEYE SCH ×4 (02:12→19:55)
[2023-03-27 03:21] LABS: ABG BASE EXCESS 13.9 mmol/L (-2.0-2.0); ABG HCO3 40.2 mmol/L (22.0-26.0); ABG OXYGEN SATURATION 93.4 % (94-97); ABG PCO2 (T) 62.1 mmHg (32.0-45.0); ABG PO2 (T) 69.2 mmHg (75.0-100.0); ALLEN'S TEST Modified; FCOHb 0.3 % (0.0-3.9); FMetHb 0.2 % (0.0-1.5); FO2Hb 92.9 % (94-97); PATIENT TEMPERATURE 37.7; PEEP 11 cm H2O; RESPIRATORY RATE 25 b/min; TIDAL VOLUME 300 mL; TOTAL HEMOGLOBIN 10.9 G/dl (12.0-16.0)
[2023-03-27 03:56] LABS: ANISOCYTOSIS 1+; MICROCYTOSIS 1+; PLATELET ESTIMATE NORMAL; STOMATOCYTES FEW; TEAR DROP CELLS FEW
[2023-03-27 03:57] LABS: POIKILOCYTOSIS FEW
--- NOTE | 2023-03-27 06:30 | NUR ---
Patient in room ICU 2039. I have received report from waqas and had the opportunity to ask questions and assume patient care.
[2023-03-27] MEDS: K and/or MAG REPLACEMENT MC SCH ×2 (07:12→19:50)
[2023-03-27] MEDS ORDERED: vitamin A & D ointment-NF 1 APPLIC TUBE TP SCH (08:00)
[2023-03-27] MEDS: docusate sod 100mg capsule PO SCH ×2 (08:00→19:50)
[2023-03-27] MEDS: metroNIDAZOLE-Flagyl 500mg/NS 100 ML IV SCH ×3 (08:05→16:06)
[2023-03-27] MEDS: Neutra Phos packet OGT SCH ×3 (08:05→19:55)
[2023-03-27] MEDS: piperacillin/tazo 3.375gm/50ml 50 ML IV SCH ×3 (08:05→16:06)
[2023-03-27] MEDS: nystatin 15 GM powder TP SCH ×2 (08:48→19:54)
[2023-03-27] MEDS: furosemide 40mg/4ml inj IV SCH ×3 (08:48→19:54)
--- NOTE | 2023-03-27 09:30 | NUR ---
upon turning to left side, pt desats to 84- sx, to 100% several times, then to 65%. aware- recovered when turned to back.
--- NOTE | 2023-03-27 10:46 | NUR ---
F/u: Pt started on 200 mL water flushes Q4H this morning per . Noted pt with low iron studies, MD agrees to iron and vitamin C supplementation. Pt currently tolerating TF at goal rate with GRV WNL. Will continue to follow. Addendum: 03/27/23 at [address] Amended: Links added.
[2023-03-27] MEDS ORDERED: ascorbic acid 500mg tablet OGT SCH (12:30)
[2023-03-27] MEDS ORDERED: ferrous sulfate 300mg/5ml UD oral liquid OGT SCH (12:30)
--- NOTE | 2023-03-27 12:57 | NUR ---
levo decreased, diprivan decreased
[2023-03-27] MEDS: ascorbic acid 500mg tablet OGT SCH (16:00)
[2023-03-27] MEDS: ferrous sulfate 300mg/5ml UD oral liquid OGT SCH (16:00)
[2023-03-27] MEDS: vancomycin/NS 1 GM ADD-VANTAGE 250 ML IV SCH (17:18)
--- NOTE | 2023-03-27 19:00 | NUR ---
No real changes t/o the day in pt's care/therapies. Norepi decreased as able and will continue to titrate down/off if able. Sedation decreased a little. Pt wakes up, weakly follows simple command. Still having multiple BMs per shift. Tolerated TF and that is at goal with good blood sugar levels. Dressings to LE changed during the day. No changes in ventilator settings. Will wean down FiO2 if able.
[2023-03-27] MEDS: enoxaparin 40mg/0.4ml syringe SQ SCH (19:55)
[2023-03-28] VITALS (35 sets, daily range): BP systolic 91–127; BP diastolic 50–72
[2023-03-28] MEDS: metroNIDAZOLE-Flagyl 500mg/NS 100 ML IV SCH ×2 (00:11→08:15)
[2023-03-28] MEDS: piperacillin/tazo 3.375gm/50ml 50 ML IV SCH ×3 (00:12→16:24)
[2023-03-28] MEDS: ferrous sulfate 300mg/5ml UD oral liquid OGT SCH ×3 (00:12→16:23)
[2023-03-28] MEDS: ascorbic acid 500mg tablet OGT SCH ×3 (00:13→16:22)
[2023-03-28 02:19] LABS: BASOPHILS % (AUTO) 0.5 % (0-1); EOSINOPHILS # (AUTO) 0.2 X10'3 (0-0.9); EOSINOPHILS % (AUTO) 2.5 % (0-6); HEMATOCRIT 31.2 % (35.0-45.0); HEMOGLOBIN 9.5 g/dl (12.0-16.0); LYMPHOCYTES # (AUTO) 1.2 X10'3 (1.1-4.8); LYMPHOCYTES % (AUTO) 13.9 % (21-51); MEAN CORPUSCULAR HEMOGLOBIN 23.2 PG (27.0-31.0); MEAN CORPUSCULAR HGB CONC 30.3 g/dL (33.0-36.5); MEAN CORPUSCULAR VOLUME 76.4 FL (78-98); MEAN PLATELET VOLUME 7.7 FL (7.4-10.4); MONOCYTES # (AUTO) 0.8 X10'3 (0-0.9); MONOCYTES % (AUTO) 10.1 % (2-12); NEUTROPHILS # (AUTO) 6.1 X10'3 (1.8-7.7); PLATELET COUNT 349 X10'3 (140-440); RED BLOOD COUNT 4.08 X10'6 (4.20-5.60); RED CELL DISTRIBUTION WIDTH 16.7 % (11.5-14.5); WHITE BLOOD COUNT 8.4 X10'3 (4.5-11.0)
[2023-03-28 02:37] LABS: ALANINE AMINOTRANSFERASE 8 U/L (12-78); ALBUMIN 1.8 G/DL (3.4-5.0); ALBUMIN/GLOBULIN RATIO 0.4 (1.1-1.5); ALKALINE PHOSPHATASE 94 IU/L (46-116); ANION GAP 7 (8-16); ASPARTATE AMINO TRANSFERASE 6 U/L (10-37); BILIRUBIN,TOTAL 0.4 MG/DL (0.1-1.0); BLOOD UREA NITROGEN 48 MG/DL (7-18); BUN/CREATININE RATIO 21.4 (10.0-20.0); CALCIUM 7.6 MG/DL (8.5-10.1); CHLORIDE 105 MMOL/L (99-107); CREATININE 2.24 MG/DL (0.40-0.90); GLUCOSE 137 MG/DL (70-104); MAGNESIUM 1.8 MG/DL (1.5-2.4); PHOSPHORUS 6.1 MG/DL (2.3-4.5); POTASSIUM 3.5 MMOL/L (3.5-5.1); SODIUM 151 MMOL/L (135-145); TOTAL CARBON DIOXIDE 39.3 MMOL/L (24-32); TOTAL PROTEIN 6.4 G/DL (6.4-8.2); eGFR 22 ML/MIN
[2023-03-28] MEDS: furosemide 40mg/4ml inj IV SCH ×4 (02:44→19:42)
[2023-03-28] MEDS: mineral oil/petrolatum ophthal oint EACHEYE SCH ×4 (02:44→19:42)
[2023-03-28 02:58] LABS: APTT 34 SECONDS (22-32)
[2023-03-28 04:01] LABS: ABG BASE EXCESS 13.3 mmol/L (-2.0-2.0); ABG HCO3 39.4 mmol/L (22.0-26.0); ABG OXYGEN SATURATION 91.9 % (94-97); ABG PCO2 (T) 60.3 mmHg (32.0-45.0); ABG PO2 (T) 69.4 mmHg (75.0-100.0); ALLEN'S TEST POSITIVE; FCOHb 0.3 % (0.0-3.9); FMetHb 0.3 % (0.0-1.5); FO2Hb 91.3 % (94-97); PATIENT TEMPERATURE 37.8; PEEP 8 cm H2O; RESPIRATORY RATE 25 b/min; TIDAL VOLUME 300 mL; TOTAL HEMOGLOBIN 11.1 G/dl (12.0-16.0)
[2023-03-28] MEDS: propofol 1000mg/100ml bottle 100 ML IV SCH ×2 (05:35→16:24)
[2023-03-28] MEDS: FENTANYL-0.9 % NACL/PF 100 ML IV PRN ×2 (06:15→16:23)
--- NOTE | 2023-03-28 06:30 | NUR ---
Patient in room ICU 2039. I have received report from JASON Byers and had the opportunity to ask questions and assume patient care.
[2023-03-28] MEDS: K and/or MAG REPLACEMENT MC SCH ×2 (08:00→19:43)
[2023-03-28] MEDS: Neutra Phos packet OGT SCH ×3 (08:14→19:42)
[2023-03-28] MEDS: nystatin 15 GM powder TP SCH ×2 (08:16→19:43)
--- NOTE | 2023-03-28 09:30 | NUR ---
Dr Drew palacios.
[2023-03-28] MEDS ORDERED: VANCOMYCIN LEVEL IV ONE (16:30)
--- NOTE | 2023-03-28 18:15 | NUR ---
Problems reprioritized. Patient report given, questions answered & plan of care reviewed with JASON Finn.
[2023-03-28] MEDS: vancomycin inj 500 MG in normal saline 100ml IV soln 100 ML IV SCH (19:41)
[2023-03-28] MEDS: docusate sodium 100mg/10ml UD cup OGT SCH (19:43)
[2023-03-28] MEDS: enoxaparin 40mg/0.4ml syringe SQ SCH (19:43)
[2023-03-29] VITALS (32 sets, daily range): BP systolic 87–158; BP diastolic 41–69
[2023-03-29] MEDS: piperacillin/tazo 3.375gm/50ml 50 ML IV SCH ×3 (00:41→18:21)
[2023-03-29] MEDS: ascorbic acid 500mg tablet OGT SCH ×3 (00:42→18:20)
[2023-03-29] MEDS: ferrous sulfate 300mg/5ml UD oral liquid OGT SCH ×3 (00:42→18:20)
[2023-03-29] MEDS ORDERED: magnesium 4gm in 100ml NS 100 ML IV PRN (00:55)
[2023-03-29] MEDS ORDERED: magnesium 2GM in 50ml NS 50 ML IV PRN (00:55)
[2023-03-29] MEDS ORDERED: potassium Cl 40MEQ/270ML bag 270 ML IV PRN (00:55)
[2023-03-29] MEDS: mineral oil/petrolatum ophthal oint EACHEYE SCH ×4 (02:29→20:08)
[2023-03-29] MEDS: FENTANYL-0.9 % NACL/PF 100 ML IV PRN ×2 (02:45→14:54)
[2023-03-29 03:18] LABS: ABG BASE EXCESS 14.5 mmol/L (-2.0-2.0); ABG HCO3 40.8 mmol/L (22.0-26.0); ABG OXYGEN SATURATION 91.2 % (94-97); ABG PCO2 (T) 60.7 mmHg (32.0-45.0); ABG PO2 (T) 64.8 mmHg (75.0-100.0); ALLEN'S TEST POSITIVE; FCOHb 0.3 % (0.0-3.9); FO2Hb 90.9 % (94-97); PATIENT TEMPERATURE 37.1; PEEP 8 cm H2O; RESPIRATORY RATE 25 b/min; TIDAL VOLUME 300 mL
[2023-03-29 03:50] LABS: BASOPHILS # (AUTO) 0.1 X10'3 (0-0.2); BASOPHILS % (AUTO) 0.6 % (0-1); EOSINOPHILS # (AUTO) 0.2 X10'3 (0-0.9); EOSINOPHILS % (AUTO) 3.1 % (0-6); HEMOGLOBIN 9.4 g/dl (12.0-16.0); LYMPHOCYTES # (AUTO) 1.5 X10'3 (1.1-4.8); LYMPHOCYTES % (AUTO) 18.2 % (21-51); MEAN CORPUSCULAR HEMOGLOBIN 23.3 PG (27.0-31.0); MEAN CORPUSCULAR HGB CONC 30.3 g/dL (33.0-36.5); MEAN CORPUSCULAR VOLUME 76.7 FL (78-98); MEAN PLATELET VOLUME 7.9 FL (7.4-10.4); MONOCYTES # (AUTO) 0.7 X10'3 (0-0.9); MONOCYTES % (AUTO) 9.2 % (2-12); NEUTROPHILS # (AUTO) 5.5 X10'3 (1.8-7.7); NEUTROPHILS % (AUTO) 68.9 % (42-75); PLATELET COUNT 328 X10'3 (140-440); RED BLOOD COUNT 4.04 X10'6 (4.20-5.60); RED CELL DISTRIBUTION WIDTH 16.9 % (11.5-14.5)
[2023-03-29 03:53] LABS: ALANINE AMINOTRANSFERASE 8 U/L (12-78); ALBUMIN 1.8 G/DL (3.4-5.0); ALBUMIN/GLOBULIN RATIO 0.4 (1.1-1.5); ALKALINE PHOSPHATASE 93 IU/L (46-116); ANION GAP 11 (8-16); ASPARTATE AMINO TRANSFERASE 7 U/L (10-37); BILIRUBIN,TOTAL 0.3 MG/DL (0.1-1.0); BLOOD UREA NITROGEN 61 MG/DL (7-18); BUN/CREATININE RATIO 25.7 (10.0-20.0); CHLORIDE 105 MMOL/L (99-107); CREATININE 2.37 MG/DL (0.40-0.90); GLUCOSE 110 MG/DL (70-104); MAGNESIUM 1.9 MG/DL (1.5-2.4); PHOSPHORUS 8.4 MG/DL (2.3-4.5); POTASSIUM 3.8 MMOL/L (3.5-5.1); SODIUM 154 MMOL/L (135-145); TOTAL CARBON DIOXIDE 38.3 MMOL/L (24-32); TOTAL PROTEIN 6.7 G/DL (6.4-8.2); eGFR 20 ML/MIN
[2023-03-29] MEDS: Neutra Phos packet OGT SCH ×2 (06:55→08:22)
[2023-03-29] MEDS: docusate sodium 100mg/10ml UD cup OGT SCH (06:55)
[2023-03-29] MEDS ORDERED: furosemide 40mg/4ml inj IV SCH (08:00)
[2023-03-29] MEDS: propofol 1000mg/100ml bottle 100 ML IV SCH (08:20)
[2023-03-29] MEDS: nystatin 15 GM powder TP SCH ×2 (08:21→20:08)
[2023-03-29] MEDS: K and/or MAG REPLACEMENT MC SCH ×2 (08:56→20:00)
--- NOTE | 2023-03-29 10:56 | NUR ---
F/u 03/29: Pt remains intubated tolerating TF at goal GRV WNL. Propofol visualized at 6.6ml/hr during RD rounds this AM providing 174 kcals/day; no EN changes at this time. Serum Na 154mmol/L this AM to remain on 200ml Q4H free water while receiving lasix per MD this AM. Noted Phos 8.4mg/dl w/ pt receiving routine K-Phos past 4 days; now stopped per MD. Per WOC, skin intact. LBM 03/28 w/ colace held for diarrhea 3 BM's but only 100ml stool output past 24 hours per I&O. Will continue to follow. Recommendations: 1) Given Propofol at 6.6 mL/hr (174 kcal/day), continuous Vital HP with 70 mL/hr goal rate to provide 1680 mL total volume/day, 1680 kcal, 147 g protein, and 1405 mL water 2) Monitor Propofol rate and need to adjust TF recs 3) Additional 200 mL water flush Q4H per MD; monitor serum Na 4) Prealbumin q Thursday/; Daily scaled weights 5) Routine Iron and Vitamin C given low iron studies per MD 6) Routine bowel care Addendum: 03/29/23 at [address] Amended: Links added.
[2023-03-29] MEDS ORDERED: propofol 1000mg/100ml bottle 100 ML IV SCH (12:50)
[2023-03-29] MEDS: furosemide 40mg/4ml inj IV SCH ×2 (14:55→20:08)
[2023-03-29] MEDS: vancomycin inj 500 MG in normal saline 100ml IV soln 100 ML IV SCH (19:50)
[2023-03-29] MEDS: enoxaparin 40mg/0.4ml syringe SQ SCH (20:08)
[2023-03-30] VITALS (27 sets, daily range): BP systolic 98–122; BP diastolic 50–81
[2023-03-30] MEDS: ferrous sulfate 300mg/5ml UD oral liquid OGT SCH ×3 (01:05→16:25)
[2023-03-30] MEDS: piperacillin/tazo 3.375gm/50ml 50 ML IV SCH ×3 (01:05→16:26)
[2023-03-30] MEDS: ascorbic acid 500mg tablet OGT SCH ×3 (01:06→16:25)
[2023-03-30] MEDS: furosemide 40mg/4ml inj IV SCH ×3 (02:20→20:05)
[2023-03-30] MEDS: mineral oil/petrolatum ophthal oint EACHEYE SCH ×4 (02:20→20:00)
[2023-03-30 03:04] LABS: ABG BASE EXCESS 5.8 mmol/L (-2.0-2.0); ABG HCO3 32.5 mmol/L (22.0-26.0); ABG OXYGEN SATURATION 91.4 % (94-97); ABG PCO2 (T) 59.1 mmHg (32.0-45.0); ABG PO2 (T) 70.4 mmHg (75.0-100.0); ALLEN'S TEST POSITIVE; FCOHb 0.2 % (0.0-3.9); FMetHb 0.1 % (0.0-1.5); FO2Hb 91.1 % (94-97); PATIENT TEMPERATURE 37.4; PEEP 8 cm H2O; RESPIRATORY RATE 18 b/min; TIDAL VOLUME 300 mL; TOTAL HEMOGLOBIN 11.2 G/dl (12.0-16.0)
[2023-03-30 03:39] LABS: BASOPHILS # (AUTO) 0.1 X10'3 (0-0.2); BASOPHILS % (AUTO) 0.7 % (0-1); EOSINOPHILS # (AUTO) 0.3 X10'3 (0-0.9); EOSINOPHILS % (AUTO) 3.6 % (0-6); LYMPHOCYTES # (AUTO) 1.5 X10'3 (1.1-4.8); LYMPHOCYTES % (AUTO) 20.4 % (21-51); MONOCYTES # (AUTO) 0.7 X10'3 (0-0.9); NEUTROPHILS % (AUTO) 66.3 % (42-75)
[2023-03-30 03:43] LABS: ALANINE AMINOTRANSFERASE 8 U/L (12-78); ALBUMIN/GLOBULIN RATIO 0.4 (1.1-1.5); ALKALINE PHOSPHATASE 92 IU/L (46-116); ANION GAP 9 (8-16); ASPARTATE AMINO TRANSFERASE 9 U/L (10-37); BILIRUBIN,TOTAL 0.3 MG/DL (0.1-1.0); BLOOD UREA NITROGEN 61 MG/DL (7-18); BUN/CREATININE RATIO 28.2 (10.0-20.0); CHLORIDE 103 MMOL/L (99-107); CREATININE 2.16 MG/DL (0.40-0.90); GLUCOSE 124 MG/DL (70-104); MAGNESIUM 1.9 MG/DL (1.5-2.4); PHOSPHORUS 6.4 MG/DL (2.3-4.5); POTASSIUM 3.6 MMOL/L (3.5-5.1); SODIUM 150 MMOL/L (135-145); TOTAL CARBON DIOXIDE 38.1 MMOL/L (24-32); TOTAL PROTEIN 7.1 G/DL (6.4-8.2); TRIGLYCERIDES 282 MG/DL (20-135); eGFR 23 ML/MIN
[2023-03-30 04:35] LABS: HEMATOCRIT 32.7 % (35.0-45.0); HEMOGLOBIN 10.5 g/dl (12.0-16.0); MEAN CORPUSCULAR HEMOGLOBIN 24.4 PG (27.0-31.0); MEAN CORPUSCULAR VOLUME 75.7 FL (78-98); RED BLOOD COUNT 4.32 X10'6 (4.20-5.60); WHITE BLOOD COUNT 7.6 X10'3 (4.5-11.0)
[2023-03-30 04:36] LABS: MEAN CORPUSCULAR HGB CONC 32.3 g/dL (33.0-36.5); MEAN PLATELET VOLUME 7.8 FL (7.4-10.4); PLATELET COUNT 313 X10'3 (140-440); RED CELL DISTRIBUTION WIDTH 16.3 % (11.5-14.5)
[2023-03-30] MEDS: K and/or MAG REPLACEMENT MC SCH ×2 (08:00→20:00)
[2023-03-30] MEDS ORDERED: docusate sodium 100mg/10ml UD cup OGT PRN (08:00)
[2023-03-30] MEDS: ipratropium/albuterol 3ml nebule NEB SCH ×3 (09:12→21:07)
[2023-03-30] MEDS: FENTANYL-0.9 % NACL/PF 100 ML IV PRN (09:13)
[2023-03-30] MEDS: pantoprazole 40MG/NS 100ML BAG 100 ML IV SCH (10:56)
[2023-03-30] MEDS: nystatin 15 GM powder TP SCH ×2 (10:57→20:05)
[2023-03-30] MEDS: vancomycin inj 500 MG in normal saline 100ml IV soln 100 ML IV SCH (20:05)
[2023-03-31] VITALS (29 sets, daily range): BP systolic 100–138; BP diastolic 49–83
[2023-03-31] MEDS: piperacillin/tazo 3.375gm/50ml 50 ML IV SCH ×3 (00:29→16:57)
--- NOTE | 2023-03-31 00:30 | NUR ---
Patient in room ICU 2039. I have received report from Maria Alejandra GOMEZ and had the opportunity to ask questions and assume patient care.
[2023-03-31] MEDS: ferrous sulfate 300mg/5ml UD oral liquid OGT SCH ×3 (00:32→16:58)
[2023-03-31] MEDS: ascorbic acid 500mg tablet OGT SCH ×3 (00:32→16:57)
[2023-03-31] MEDS: mineral oil/petrolatum ophthal oint EACHEYE SCH ×3 (02:00→14:00)
[2023-03-31] MEDS: ipratropium/albuterol 3ml nebule NEB SCH ×4 (02:29→20:07)
[2023-03-31 02:32] LABS: ALBUMIN 2.1 G/DL (3.4-5.0); ANION GAP 10 (8-16); BLOOD UREA NITROGEN 65 MG/DL (7-18); BUN/CREATININE RATIO 31.3 (10.0-20.0); CALCIUM 8.5 MG/DL (8.5-10.1); CHLORIDE 104 MMOL/L (99-107); CREATININE 2.08 MG/DL (0.40-0.90); GLUCOSE 124 MG/DL (70-104); MAGNESIUM 2.3 MG/DL (1.5-2.4); POTASSIUM 3.3 MMOL/L (3.5-5.1); SODIUM 150 MMOL/L (135-145); TOTAL CARBON DIOXIDE 35.7 MMOL/L (24-32); eGFR 24 ML/MIN
[2023-03-31 02:51] LABS: BASOPHILS % (AUTO) 0.3 % (0-1); EOSINOPHILS # (AUTO) 0.2 X10'3 (0-0.9); EOSINOPHILS % (AUTO) 2.1 % (0-6); HEMATOCRIT 31.3 % (35.0-45.0); HEMOGLOBIN 9.5 g/dl (12.0-16.0); LYMPHOCYTES # (AUTO) 1.3 X10'3 (1.1-4.8); LYMPHOCYTES % (AUTO) 17.7 % (21-51); MEAN CORPUSCULAR HEMOGLOBIN 23.4 PG (27.0-31.0); MEAN CORPUSCULAR HGB CONC 30.4 g/dL (33.0-36.5); MEAN CORPUSCULAR VOLUME 77.2 FL (78-98); MEAN PLATELET VOLUME 8.4 FL (7.4-10.4); MONOCYTES # (AUTO) 0.8 X10'3 (0-0.9); NEUTROPHILS # (AUTO) 5.3 X10'3 (1.8-7.7); NEUTROPHILS % (AUTO) 69.9 % (42-75); PLATELET COUNT 310 X10'3 (140-440); RED BLOOD COUNT 4.05 X10'6 (4.20-5.60); RED CELL DISTRIBUTION WIDTH 16.8 % (11.5-14.5); WHITE BLOOD COUNT 7.5 X10'3 (4.5-11.0)
[2023-03-31 03:57] LABS: ABG BASE EXCESS 9.3 mmol/L (-2.0-2.0); ABG HCO3 35.7 mmol/L (22.0-26.0); ABG OXYGEN SATURATION 94.4 % (94-97); ABG PCO2 (T) 58.9 mmHg (32.0-45.0); ABG PO2 (T) 77.2 mmHg (75.0-100.0); ALLEN'S TEST POSITIVE; FCOHb 0.3 % (0.0-3.9); FO2Hb 94.1 % (94-97); PATIENT TEMPERATURE 37.1; PEEP 7 cm H2O; TOTAL HEMOGLOBIN 10.8 G/dl (12.0-16.0)
--- NOTE | 2023-03-31 06:17 | NUR ---
Problems reprioritized. Patient report given, questions answered & plan of care reviewed with Christo GOMEZ.
[2023-03-31] MEDS: pantoprazole 40MG/NS 100ML BAG 100 ML IV SCH (08:08)
[2023-03-31] MEDS: furosemide 40mg/4ml inj IV SCH ×2 (08:08→19:27)
[2023-03-31] MEDS: nystatin 15 GM powder TP SCH ×2 (08:09→19:27)
[2023-03-31] MEDS: enoxaparin 30mg/0.3ml syringe SUBCUT SCH (08:09)
[2023-03-31] MEDS: K and/or MAG REPLACEMENT MC SCH ×2 (08:36→19:09)
[2023-03-31] MEDS ORDERED: naloxone 0.4 mg/ml inj IV PRN (10:10)
--- NOTE | 2023-03-31 18:14 | NUR ---
Problems reprioritized. Patient report given, questions answered & plan of care reviewed with JASON Mcknight.
--- NOTE | 2023-03-31 18:19 | NUR ---
Patient in room ICU 2039. I have received report from Christo GOMEZ and had the opportunity to ask questions and assume patient care.
[2023-03-31] MEDS ORDERED: VANCOMYCIN LEVEL IV ONE (18:30)
[2023-03-31 19:04] LABS: POTASSIUM 3.6 MMOL/L (3.5-5.1); VANCOMYCIN,TROUGH 17.7 UG/ML (6.0-14.0)
[2023-03-31] MEDS: vancomycin inj 500 MG in normal saline 100ml IV soln 100 ML IV SCH (19:27)
[2023-04-01] VITALS (13 sets, daily range): BP systolic 102–132; BP diastolic 43–92
[2023-04-01] MEDS: ferrous sulfate 325mg tablet PO SCH ×3 (00:33→16:00)
[2023-04-01] MEDS: ascorbic acid 500mg tablet OGT SCH ×2 (00:33→09:19)
[2023-04-01] MEDS: piperacillin/tazo 3.375gm/50ml 50 ML IV SCH ×3 (00:34→16:00)
[2023-04-01] MEDS: ipratropium/albuterol 3ml nebule NEB SCH ×4 (02:36→20:49)
[2023-04-01 02:50] LABS: BASOPHILS % (AUTO) 0.4 % (0-1); EOSINOPHILS # (AUTO) 0.3 X10'3 (0-0.9); LYMPHOCYTES # (AUTO) 1.3 X10'3 (1.1-4.8); LYMPHOCYTES % (AUTO) 18.5 % (21-51); MEAN PLATELET VOLUME 8.1 FL (7.4-10.4); MONOCYTES # (AUTO) 0.6 X10'3 (0-0.9); MONOCYTES % (AUTO) 9.2 % (2-12); NEUTROPHILS # (AUTO) 4.6 X10'3 (1.8-7.7); NEUTROPHILS % (AUTO) 67.9 % (42-75); PLATELET COUNT 300 X10'3 (140-440); WHITE BLOOD COUNT 6.8 X10'3 (4.5-11.0)
[2023-04-01 03:03] LABS: ALBUMIN 2.3 G/DL (3.4-5.0); ANION GAP 9 (8-16); BLOOD UREA NITROGEN 54 MG/DL (7-18); BUN/CREATININE RATIO 29.3 (10.0-20.0); CALCIUM 9.3 MG/DL (8.5-10.1); CHLORIDE 108 MMOL/L (99-107); CREATININE 1.84 MG/DL (0.40-0.90); GLUCOSE 90 MG/DL (70-104); MAGNESIUM 2.7 MG/DL (1.5-2.4); POTASSIUM 3.4 MMOL/L (3.5-5.1); SODIUM 151 MMOL/L (135-145); TOTAL CARBON DIOXIDE 34.5 MMOL/L (24-32); eGFR 27 ML/MIN
[2023-04-01 03:40] LABS: HEMATOCRIT 31.4 % (35.0-45.0); HEMOGLOBIN 9.9 g/dl (12.0-16.0); MEAN CORPUSCULAR HEMOGLOBIN 24.3 PG (27.0-31.0); MEAN CORPUSCULAR HGB CONC 31.7 g/dL (33.0-36.5); MEAN CORPUSCULAR VOLUME 76.7 FL (78-98); RED BLOOD COUNT 4.09 X10'6 (4.20-5.60); RED CELL DISTRIBUTION WIDTH 16.4 % (11.5-14.5)
[2023-04-01] MEDS: potassium Cl 20 mEq SR tablet PO PRN ×2 (04:19→09:19)
--- NOTE | 2023-04-01 06:22 | NUR ---
Problems reprioritized. Patient report given, questions answered & plan of care reviewed with Yemi GOMEZ.
[2023-04-01] MEDS: K and/or MAG REPLACEMENT MC SCH ×2 (08:00→20:00)
[2023-04-01 08:40] LABS: ABG PCO2 (T) > 150.0 mmHg (32.0-45.0)
[2023-04-01] MEDS: furosemide 40mg/4ml inj IV SCH ×2 (09:19→19:17)
[2023-04-01] MEDS: enoxaparin 30mg/0.3ml syringe SUBCUT SCH (09:20)
[2023-04-01] MEDS: pantoprazole 40MG/NS 100ML BAG 100 ML IV SCH (09:20)
[2023-04-01] MEDS: nystatin 15 GM powder TP SCH ×2 (09:32→19:17)
[2023-04-01] MEDS: dextrose 5%-water 1,000 ML IV SCH ×2 (09:32→19:22)
[2023-04-01] MEDS ORDERED: ascorbic acid 500mg tablet PO SCH (10:24)
[2023-04-01] MEDS ORDERED: docusate sod 100mg capsule PO PRN (10:24)
[2023-04-01 14:47] LABS: ALBUMIN 2.2 G/DL (3.4-5.0); ANION GAP 9 (8-16); BLOOD UREA NITROGEN 50 MG/DL (7-18); BUN/CREATININE RATIO 28.4 (10.0-20.0); CALCIUM 9.2 MG/DL (8.5-10.1); CHLORIDE 107 MMOL/L (99-107); CREATININE 1.76 MG/DL (0.40-0.90); GLUCOSE 102 MG/DL (70-104); POTASSIUM 4.3 MMOL/L (3.5-5.1); SODIUM 142 MMOL/L (135-145); TOTAL CARBON DIOXIDE 25.6 MMOL/L (24-32); eGFR 29 ML/MIN
[2023-04-01] MEDS: vancomycin inj 500 MG in normal saline 100ml IV soln 100 ML IV SCH (19:17)
[2023-04-02] MEDS: piperacillin/tazo 3.375gm/50ml 50 ML IV SCH ×4 (00:31→23:26)
[2023-04-02 02:00] VITALS: BP 110/55
[2023-04-02] MEDS: ipratropium/albuterol 3ml nebule NEB SCH ×4 (03:01→20:16)
[2023-04-02] MEDS: dextrose 5%-water 1,000 ML IV SCH (03:31)
[2023-04-02 06:06] VITALS: BP 133/66
--- NOTE | 2023-04-02 06:31 | NUR ---
Problems reprioritized. Patient report given, questions answered & plan of care reviewed with Felipe.
[2023-04-02 07:00] LABS: BASOPHILS % (AUTO) 0.2 % (0-1); EOSINOPHILS # (AUTO) 0.3 X10'3 (0-0.9); EOSINOPHILS % (AUTO) 4.6 % (0-6); LYMPHOCYTES # (AUTO) 1.2 X10'3 (1.1-4.8); LYMPHOCYTES % (AUTO) 16.8 % (21-51); MEAN PLATELET VOLUME 8.4 FL (7.4-10.4); MONOCYTES # (AUTO) 0.7 X10'3 (0-0.9); MONOCYTES % (AUTO) 9.7 % (2-12); NEUTROPHILS # (AUTO) 4.8 X10'3 (1.8-7.7); NEUTROPHILS % (AUTO) 68.7 % (42-75); RED CELL DISTRIBUTION WIDTH 16.5 % (11.5-14.5)
[2023-04-02 07:09] LABS: ALBUMIN 2.2 G/DL (3.4-5.0); ANION GAP 8 (8-16); BLOOD UREA NITROGEN 42 MG/DL (7-18); BUN/CREATININE RATIO 23.5 (10.0-20.0); CALCIUM 9.3 MG/DL (8.5-10.1); CHLORIDE 103 MMOL/L (99-107); CREATININE 1.79 MG/DL (0.40-0.90); GLUCOSE 103 MG/DL (70-104); MAGNESIUM 2.7 MG/DL (1.5-2.4); POTASSIUM 3.4 MMOL/L (3.5-5.1); SODIUM 139 MMOL/L (135-145); TOTAL CARBON DIOXIDE 27.6 MMOL/L (24-32); eGFR 28 ML/MIN
[2023-04-02 07:28] LABS: HEMATOCRIT 34.2 % (35.0-45.0); HEMOGLOBIN 10.8 g/dl (12.0-16.0); MEAN CORPUSCULAR HEMOGLOBIN 24.1 PG (27.0-31.0); MEAN CORPUSCULAR HGB CONC 31.6 g/dL (33.0-36.5); MEAN CORPUSCULAR VOLUME 76.1 FL (78-98); RED BLOOD COUNT 4.49 X10'6 (4.20-5.60); WHITE BLOOD COUNT 6.8 X10'3 (4.5-11.0)
[2023-04-02 07:29] LABS: PLATELET COUNT 259 X10'3 (140-440)
[2023-04-02] MEDS: nystatin 15 GM powder TP SCH ×2 (08:00→20:00)
[2023-04-02] MEDS: furosemide 40mg/4ml inj IV SCH ×2 (10:07→20:32)
[2023-04-02] MEDS: pantoprazole 40MG/NS 100ML BAG 100 ML IV SCH (10:08)
[2023-04-02] MEDS: enoxaparin 30mg/0.3ml syringe SUBCUT SCH (10:08)
[2023-04-02] MEDS: potassium Cl 20 mEq SR tablet PO PRN ×3 (10:08→17:51)
[2023-04-02] MEDS: K and/or MAG REPLACEMENT MC SCH ×2 (10:09→20:43)
[2023-04-02] MEDS: ferrous sulfate 325mg tablet PO SCH ×3 (10:09→20:30)
[2023-04-02 10:10] VITALS: BP 123/51
[2023-04-02] MEDS: ascorbic acid 500mg tablet PO SCH ×3 (10:10→20:30)
[2023-04-02 15:15] VITALS: BP 123/60
--- NOTE | 2023-04-02 15:49 | NUR ---
F/u 04/02: Pt extubated on 03/31 per EMR. Pt currently on a regular diet since 04/01 per SAP BW CONSULTANT with average PO intake of 25% x 4 meals meeting 40% of estimated kcal needs and 43% of protein needs. Pt seen at bedside, reports appetite slowly coming back and agreeable to ONS.Recommend Ensure Enlive TIDWM to better meet pt's needs;discussed with RN and MD notified. New scaled wt on 04/02 of 102.6kg,noted +6kg, not a reliable wt due to pt with 2+ BUE edema, on Lasix, and neg fluid balance ~ 3.2L per EMR. LBM on 04/01 with diarrhea persisting from 03/29-04/02 per EMR. Will continue to follow. Recommendation: 1. continue regular diet 2. recommend ONS Ensure Enlive TIDWM; MD notified 3. bowel care per physician 4. daily wts Addendum: 04/02/23 at [address] Amended: Links added. Addendum: 04/02/23 at [address] TIMO has reviewed and approves of above note.
[2023-04-02 18:00] VITALS: BP 110/45
--- NOTE | 2023-04-02 19:02 | NUR ---
Problems reprioritized. Patient report given, questions answered & plan of care reviewed with Felipe.
--- NOTE | 2023-04-02 19:45 | NUR ---
Eller catheter discontinued. Pt tolerated well. WIC placed.
[2023-04-02] MEDS: vancomycin inj 500 MG in normal saline 100ml IV soln 100 ML IV SCH (20:31)
[2023-04-02 22:32] VITALS: BP 145/59
[2023-04-03 01:26] VITALS: BP 133/54
[2023-04-03] MEDS: ipratropium/albuterol 3ml nebule NEB SCH ×4 (02:39→21:21)
[2023-04-03 06:00] VITALS: BP 133/61
[2023-04-03 06:18] LABS: BASOPHILS % (AUTO) 0.2 % (0-1); EOSINOPHILS # (AUTO) 0.3 X10'3 (0-0.9); EOSINOPHILS % (AUTO) 3.7 % (0-6); LYMPHOCYTES # (AUTO) 1.3 X10'3 (1.1-4.8); LYMPHOCYTES % (AUTO) 19.1 % (21-51); MEAN CORPUSCULAR HEMOGLOBIN 23.3 PG (27.0-31.0); MEAN PLATELET VOLUME 8.4 FL (7.4-10.4); MONOCYTES # (AUTO) 0.7 X10'3 (0-0.9); MONOCYTES % (AUTO) 9.9 % (2-12); NEUTROPHILS # (AUTO) 4.7 X10'3 (1.8-7.7); NEUTROPHILS % (AUTO) 67.1 % (42-75); PLATELET COUNT 294 X10'3 (140-440)
[2023-04-03 06:33] LABS: ALBUMIN 2.3 G/DL (3.4-5.0); ANION GAP 8 (8-16); BLOOD UREA NITROGEN 33 MG/DL (7-18); BUN/CREATININE RATIO 17.6 (10.0-20.0); CALCIUM 9.3 MG/DL (8.5-10.1); CHLORIDE 104 MMOL/L (99-107); CREATININE 1.87 MG/DL (0.40-0.90); GLUCOSE 91 MG/DL (70-104); MAGNESIUM 2.4 MG/DL (1.5-2.4); POTASSIUM 3.9 MMOL/L (3.5-5.1); SODIUM 141 MMOL/L (135-145); TOTAL CARBON DIOXIDE 28.9 MMOL/L (24-32); eGFR 27 ML/MIN
--- NOTE | 2023-04-03 06:41 | NUR ---
Problems reprioritized. Patient report given, questions answered & plan of care reviewed with
[2023-04-03 06:58] LABS: HEMATOCRIT 32.3 % (35.0-45.0); HEMOGLOBIN 9.8 g/dl (12.0-16.0); MEAN CORPUSCULAR HGB CONC 30.2 g/dL (33.0-36.5); RED BLOOD COUNT 4.19 X10'6 (4.20-5.60)
--- NOTE | 2023-04-03 07:28 | NUR ---
Patient in room U 3022. I have received report from Kevin Cameron and had the opportunity to ask questions and assume patient care. patient is lying on bed awake and oriented. Addendum: 04/03/23 at 0729 by Riana Marinelli RN Amended: Links added.
[2023-04-03] MEDS: K and/or MAG REPLACEMENT MC SCH ×2 (08:00→20:03)
[2023-04-03] MEDS: piperacillin/tazo 3.375gm/50ml 50 ML IV SCH (08:39)
[2023-04-03] MEDS: ferrous sulfate 325mg tablet PO SCH ×3 (08:40→20:55)
[2023-04-03] MEDS: pantoprazole 40mg Tablet.DR PO SCH (08:40)
[2023-04-03] MEDS: enoxaparin 30mg/0.3ml syringe SUBCUT SCH (08:40)
[2023-04-03] MEDS: ascorbic acid 500mg tablet PO SCH ×3 (08:40→20:55)
[2023-04-03] MEDS: nystatin 15 GM powder TP SCH ×2 (08:41→20:02)
[2023-04-03] MEDS: furosemide 40mg/4ml inj IV SCH ×2 (08:41→20:02)
[2023-04-03 11:00] VITALS: BP 138/63
[2023-04-03 15:00] VITALS: BP 123/73
[2023-04-03 18:00] VITALS: BP 125/80
--- NOTE | 2023-04-03 18:29 | NUR ---
Patient in room PCU 3022. I have received report from Rinaa and had the opportunity to ask questions and assume patient care.
[2023-04-03] MEDS ORDERED: VANCOMYCIN LEVEL IV ONE (18:30)
[2023-04-03 22:00] VITALS: BP 125/72
[2023-04-04 02:00] VITALS: BP 139/77
[2023-04-04] MEDS: ipratropium/albuterol 3ml nebule NEB SCH ×3 (03:00→15:06)
[2023-04-04 06:20] VITALS: BP 129/68
--- NOTE | 2023-04-04 06:25 | NUR ---
Problems reprioritized. Patient report given, questions answered & plan of care reviewed with Josephine.
[2023-04-04 06:41] LABS: BASOPHILS % (AUTO) 0.3 % (0-1); EOSINOPHILS # (AUTO) 0.2 X10'3 (0-0.9); EOSINOPHILS % (AUTO) 3.3 % (0-6); HEMATOCRIT 35.1 % (35.0-45.0); HEMOGLOBIN 10.8 g/dl (12.0-16.0); LYMPHOCYTES # (AUTO) 1.5 X10'3 (1.1-4.8); LYMPHOCYTES % (AUTO) 20.4 % (21-51); MEAN CORPUSCULAR HEMOGLOBIN 23.9 PG (27.0-31.0); MEAN CORPUSCULAR HGB CONC 30.8 g/dL (33.0-36.5); MEAN CORPUSCULAR VOLUME 77.5 FL (78-98); MEAN PLATELET VOLUME 8.8 FL (7.4-10.4); MONOCYTES # (AUTO) 0.6 X10'3 (0-0.9); MONOCYTES % (AUTO) 8.9 % (2-12); NEUTROPHILS # (AUTO) 4.8 X10'3 (1.8-7.7); NEUTROPHILS % (AUTO) 67.1 % (42-75); PLATELET COUNT 319 X10'3 (140-440); RED BLOOD COUNT 4.53 X10'6 (4.20-5.60); RED CELL DISTRIBUTION WIDTH 16.4 % (11.5-14.5); WHITE BLOOD COUNT 7.2 X10'3 (4.5-11.0)
[2023-04-04 07:00] LABS: ALBUMIN 2.3 G/DL (3.4-5.0); ANION GAP 9 (8-16); BLOOD UREA NITROGEN 34 MG/DL (7-18); BUN/CREATININE RATIO 18.1 (10.0-20.0); CALCIUM 9.2 MG/DL (8.5-10.1); CHLORIDE 103 MMOL/L (99-107); CREATININE 1.88 MG/DL (0.40-0.90); GLUCOSE 94 MG/DL (70-104); MAGNESIUM 2.7 MG/DL (1.5-2.4); POTASSIUM 4.1 MMOL/L (3.5-5.1); SODIUM 141 MMOL/L (135-145); TOTAL CARBON DIOXIDE 28.6 MMOL/L (24-32); eGFR 27 ML/MIN
[2023-04-04] MEDS: K and/or MAG REPLACEMENT MC SCH (08:00)
[2023-04-04] MEDS: furosemide 40mg/4ml inj IV SCH (08:21)
[2023-04-04] MEDS: ferrous sulfate 325mg tablet PO SCH ×2 (08:22→13:39)
[2023-04-04] MEDS: ascorbic acid 500mg tablet PO SCH ×2 (08:22→13:39)
[2023-04-04] MEDS: pantoprazole 40mg Tablet.DR PO SCH (08:22)
[2023-04-04] MEDS: nystatin 15 GM powder TP SCH (08:23)
[2023-04-04] MEDS: enoxaparin 30mg/0.3ml syringe SUBCUT SCH (08:23)
[2023-04-04 11:00] VITALS: BP 141/77
[2023-04-04] MEDS ORDERED: LEVO-65 PO (12:13)
--- NOTE | 2023-04-04 14:50 | NUR ---
O2 Sat at rest on room air:_91__% If below 89%: Recovery O2 Sat at rest on ___LPM:___%:___% via (mask/nasal cannula, etc..) No further documentation is necessary. If O2 Sat did not drop below 89% on room air,ambulate patient on room air. O2 Sat while ambulating on room air:_100__% Recovery O2 Sat while ambulating on ___LPM:___% No further documentation is necessary. If patient does not drop below 89% while ambulating, he/she does not qualify for home O2. Addendum: 04/04/23 at 1453 by Josephine Ramirez RN Amended: Links added.
--- NOTE | 2023-04-04 16:11 | NUR ---
All written and verbal orders for d/c given all question answered. wound care photos and care given. Pt has keys to her apartment. The neighbors will bring her her walker when she arrives and then go sweet pickle maker her meds from [email or web address]. Pt left in cab paid for by [facility]. pt stated she had all belongings. Addendum: 04/04/23 at 1614 by Josephine Ramirez RN Amended: Links added.
== END 2023-04-04 16:04 | disposition home or self-care (01) | DRG 720 ==
LOC: ER 14:32 → ED HOLD 03-25 14:48 → ICU 2S 03-25 16:20 → PCU 3S 04-01 12:23
PROVIDERS: ADMIT Internal Medicine Critical Care Medicine; ATTEND Internal Medicine Critical Care Medicine
PROC: 5A1955Z Respiratory Ventilation, Greater than 96 Consecutive Hours (ICD-10-PCS; principal; 2023-03-25)
PROC: 0BH17EZ Insertion of Endotracheal Airway into Trachea, Via Natural or Artificial Opening (ICD-10-PCS; 2023-03-25)
PROC: 02HV33Z Insertion of Infusion Device into Superior Vena Cava, Percutaneous Approach (ICD-10-PCS; 2023-03-25)
PROC: B548ZZA Ultrasonography of Superior Vena Cava, Guidance (ICD-10-PCS; 2023-03-25)
DX: A41.9 Sepsis, unspecified organism (principal); J96.21 Acute and chronic respiratory failure with hypoxia; R65.21 Severe sepsis with septic shock; J18.9 Pneumonia, unspecified organism; E43 Unspecified severe protein-calorie malnutrition; E87.0 Hyperosmolality and hypernatremia; I13.0 Hypertensive heart and chronic kidney disease with heart failure and stage 1 through stage 4 chronic kidney disease, or unspecified chronic kidney disease; D63.8 Anemia in other chronic diseases classified elsewhere; I50.9 Heart failure, unspecified; N18.30 Chronic kidney disease, stage 3 unspecified; N17.9 Acute kidney failure, unspecified; J44.0 Chronic obstructive pulmonary disease with (acute) lower respiratory infection; D50.9 Iron deficiency anemia, unspecified; J96.22 Acute and chronic respiratory failure with hypercapnia; C76.0 Malignant neoplasm of head, face and neck; I87.2 Venous insufficiency (chronic) (peripheral); R41.82 Altered mental status, unspecified; I87.8 Other specified disorders of veins; F20.9 Schizophrenia, unspecified; Z86.711 Personal history of pulmonary embolism; Z91.199 Patient's noncompliance with other medical treatment and regimen due to unspecified reason; Z88.8 Allergy status to other drugs, medicaments and biological substances; Z86.73 Personal history of transient ischemic attack (TIA), and cerebral infarction without residual deficits; Z87.01 Personal history of pneumonia (recurrent); Z68.37 Body mass index [BMI] 37.0-37.9, adult; Z99.11 Dependence on respirator [ventilator] status
CPT/HCPCS: 36415; 36600; 71045; 80048; 80053; 80202; 82728; 82803; 82948; 83540; 83550; 83605; 83735; 83880; 84100; 84132; 84134; 84145; 84478; 85008; 85018; 85025; 85610; 85730; 86140; 87040; 87070; 87081; 92508; 92616; 94002; 94003; 94640; 94660; 94760; 94799; 97116; 97161; 97530; 99285; A4333; A4615; A6213; A6222; A6223; A6250; A6446; A6449; A7015; A9900; C1751; C1758; C9113; G0378; J0696; J1650; J1940; J2543; J2704; J3010; J3370; J3480; J3490; J7030; J7040; J7050; J7070; J7614

== ENCOUNTER 2023-07-29 07:17 | Inpatient (IN) | payer MEDICAID ==
[~2023-07-29] VITALS: Ht 165.1 cm; Wt 95.0 kg
[2023-07-29] VITALS (7 sets, daily range): PULSE 91–110; RESP 20–25; O2SAT 94–98
[~2023-07-29 07:17] MED LIST changes: +FURO-150 PO; -FURO20TA4 PO; +METO-384 PO; -METO-395 PO; -MINE107C TP; -NYSPWD TP; -PHEN57OI23 RC
[2023-07-29] MEDS ORDERED: vancomycin/NS 1 GM ADD-VANTAGE 250 ML IV ONE (07:30)
[2023-07-29] MEDS ORDERED: normal saline 1000ML IV soln IV ONE (07:30)
[2023-07-29] MEDS ORDERED: CefTRIAXone 2gm/D5W 50ml BAG 50 ML IV ONE (07:30)
[2023-07-29] MEDS ORDERED: methylPREDNISolone sod succ 125mg/2ml vial IV ONE (07:30)
[2023-07-29 07:51] LABS: ALBUMIN 2.5 G/DL (3.4-5.0); ANION GAP 7 (8-16); BLOOD UREA NITROGEN 24 MG/DL (7-18); BUN/CREATININE RATIO 16.3 (10.0-20.0); CALCIUM 8.8 MG/DL (8.5-10.1); CHLORIDE 107 MMOL/L (99-107); CREATININE 1.47 MG/DL (0.40-0.90); GLUCOSE 121 MG/DL (70-104); MAGNESIUM 2.3 MG/DL (1.5-2.4); POTASSIUM 4.6 MMOL/L (3.5-5.1); SODIUM 142 MMOL/L (135-145); TOTAL CARBON DIOXIDE 27.9 MMOL/L (24-32); eCRCL 33 ML/MIN; eGFR 35 ML/MIN
[2023-07-29] MEDS: albuterol 2.5 MG/3 ML nebule CONTNEB PRN (07:57)
[2023-07-29 08:00] LABS: BASOPHILS % (AUTO) 0.4 % (0-1); EOSINOPHILS # (AUTO) 0.1 X10'3 (0-0.9); EOSINOPHILS % (AUTO) 1.1 % (0-6); LYMPHOCYTES # (AUTO) 1.1 X10'3 (1.1-4.8); LYMPHOCYTES % (AUTO) 9.2 % (21-51); MEAN PLATELET VOLUME 7.9 FL (7.4-10.4); MONOCYTES # (AUTO) 1.3 X10'3 (0-0.9); NEUTROPHILS # (AUTO) 9.9 X10'3 (1.8-7.7); NEUTROPHILS % (AUTO) 79.3 % (42-75); PLATELET COUNT 496 X10'3 (140-440); RED CELL DISTRIBUTION WIDTH 16.6 % (11.5-14.5); WHITE BLOOD COUNT 12.5 X10'3 (4.5-11.0)
[2023-07-29 08:08] LABS: ALANINE AMINOTRANSFERASE 24 U/L (12-78); ALBUMIN/GLOBULIN RATIO 0.5 (1.1-1.5); ALKALINE PHOSPHATASE 138 IU/L (46-116); ASPARTATE AMINO TRANSFERASE 23 U/L (10-37); BILIRUBIN,TOTAL 0.2 MG/DL (0.1-1.0); TOTAL PROTEIN 7.9 G/DL (6.4-8.2)
[2023-07-29 08:31] LABS: HEMATOCRIT 34.7 % (35.0-45.0); MEAN CORPUSCULAR HEMOGLOBIN 24.8 PG (27.0-31.0); MEAN CORPUSCULAR HGB CONC 31.8 g/dL (33.0-36.5); MEAN CORPUSCULAR VOLUME 78.1 FL (78-98); RED BLOOD COUNT 4.44 X10'6 (4.20-5.60)
[2023-07-29 08:38] LABS: BILIRUBIN,URINE NEGATIVE (Neg); CLARITY,URINE CLOUDY (Clear); COLOR,URINE YELLOW (Yellow); GLUCOSE, URINE NEGATIVE (Neg); KETONES,URINE NEGATIVE (Neg); LEUKOCYTE ESTERASE ,URINE NEGATIVE (Neg); NITRITES, URINE NEGATIVE (Neg); OCCULT BLOOD,URINE SMALL (Neg); PH,URINE 5.5 (4.8-8.0); PROTEIN,URINE 100 mg/dl (Neg); UA COLLECTION TYPE STRAIGHT CATH; UROBILINOGEN,URINE 0.2 E.U/dL (0.2-1.0)
[2023-07-29 08:43] LABS: SQUAMOUS EPITHELIAL CELL,UR MANY /LPF (FEW)
[2023-07-29 08:44] LABS: FINE GRANULAR CAST 0-3 /LPF (NEGATIVE)
[2023-07-29 08:47] LABS: ANISOCYTOSIS 1+; HYPOCHROMASIA 1+; PLATELET ESTIMATE INCREASED
[2023-07-29 09:11] LABS: BACTERIA,URINE 1+ /HPF (Neg); RBC,URINE 0-2 /HPF (0-2); WBC,URINE 0-4 /HPF (0-4)
[2023-07-29 09:12] LABS: HYALINE CASTS 0-3 /LPF (NEGATIVE); MUCUS STRANDS FEW /LPF (Neg)
[2023-07-29] MEDS ORDERED: morphine 2 MG/ML inj. syringe IV ONE (09:30)
[2023-07-29 10:30] LABS: PRO BRAIN NATRIURETIC PEPTIDE 9817 PG/ML (0-125)
[2023-07-29] MEDS ORDERED: potassium Cl 40MEQ/1/2NS 520ml 520 ML IV PRN (13:05)
[2023-07-29] MEDS ORDERED: potassium Cl 20 mEq SR tablet PO PRN ×2 (13:05)
[2023-07-29] MEDS ORDERED: PERFLUTREN PROTEIN-A MICROSPHR (Optison) 0.22 MG/ML 3ML VIAL IV ONE (13:05)
[2023-07-29] MEDS ORDERED: magnesium 2GM in 50ml NS 50 ML IV PRN (13:05)
[2023-07-29] MEDS ORDERED: magnesium hydroxide 30ml (MOM) UD suspension PO PRN (13:05)
[2023-07-29] MEDS ORDERED: magnesium 4gm in 100ml NS 100 ML IV PRN (13:05)
[2023-07-29] MEDS ORDERED: ondansetron/PF 4mg/2ml inj IV PRN (13:05)
[2023-07-29] MEDS ORDERED: LOSA25TA41 PO (14:45)
[2023-07-29] MEDS ORDERED: EMPA10TA PO (14:45)
--- NOTE | 2023-07-29 15:08 | NUR ---
pt placed on hospital bed, clean brief, purewick
[2023-07-29] MEDS: heparin, porcine 5000 units/ml vial SQ SCH (16:03)
[2023-07-29] MEDS: ipratropium 0.5 MG/2.5ML nebule IH SCH ×2 (16:47→20:13)
[2023-07-29 17:12] LABS: ABG BASE EXCESS -7.8 mmol/L (-2.0-2.0); ABG HCO3 23.2 mmol/L (22.0-26.0); ABG OXYGEN SATURATION 95.6 % (94-97); ABG PH (T) 7.089 (7.350-7.450); ABG PO2 (T) 81.4 mmHg (75.0-100.0); FCOHb 1.9 % (0.0-3.9); FHHb 4.3 % (0.0-5.0); FLOW 6 L/min; FMetHb 0.3 % (0.0-1.5); FO2Hb 93.5 % (94-97); MODE NASAL CANNULA; PATIENT TEMPERATURE 36.6; TOTAL HEMOGLOBIN 11.9 G/dl (12.0-16.0)
[2023-07-29] MEDS: docusate sod 100mg capsule PO SCH (20:00)
[2023-07-29 20:01] LABS: ABG BASE EXCESS -3.6 mmol/L (-2.0-2.0); ABG HCO3 26.1 mmol/L (22.0-26.0); ABG OXYGEN SATURATION 94.6 % (94-97); ABG PCO2 (T) 71.8 mmHg (32.0-45.0); ABG PH (T) 7.175 (7.350-7.450); ABG PO2 (T) 72.2 mmHg (75.0-100.0); ALLEN'S TEST Modified; FCOHb 1.2 % (0.0-3.9); FHHb 5.3 % (0.0-5.0); FMetHb 0.2 % (0.0-1.5); FO2Hb 93.3 % (94-97); MODE AVAPS; PATIENT TEMPERATURE 36.5; RESPIRATORY RATE 20 b/min; TIDAL VOLUME 500 mL; TOTAL HEMOGLOBIN 11.2 G/dl (12.0-16.0)
[2023-07-29] MEDS: K and/or MAG REPLACEMENT MC SCH (20:01)
[2023-07-29] MEDS: budesonide 0.5mg/2ml UD nebule IH SCH (20:13)
[2023-07-29] MEDS: methylPREDNISolone sod succ/PF 40mg inj. IV SCH (22:12)
[2023-07-29 22:28] LABS: ABG BASE EXCESS -4.6 mmol/L (-2.0-2.0); ABG HCO3 24.3 mmol/L (22.0-26.0); ABG OXYGEN SATURATION 95.8 % (94-97); ABG PCO2 (T) 62.9 mmHg (32.0-45.0); ABG PO2 (T) 80.6 mmHg (75.0-100.0); ALLEN'S TEST Modified; FCOHb 0.9 % (0.0-3.9); FHHb 4.2 % (0.0-5.0); FMetHb 0.2 % (0.0-1.5); FO2Hb 94.7 % (94-97); PATIENT TEMPERATURE 36.2; RESPIRATORY RATE 20 b/min; TIDAL VOLUME 500 mL
[2023-07-30] VITALS (20 sets, daily range): BP systolic 159–175; BP diastolic 61–84; PULSE 71–102; RESP 14–27; TEMP 97.4–98.3; O2SAT 91–100
[2023-07-30] MEDS: heparin, porcine 5000 units/ml vial SQ SCH ×3 (00:41→17:22)
[2023-07-30] MEDS: ipratropium 0.5 MG/2.5ML nebule IH SCH ×4 (03:37→20:04)
--- NOTE | 2023-07-30 07:12 | NUR ---
Called report. Nurse unavailable at this time to take report.
--- NOTE | 2023-07-30 07:40 | NUR ---
Patient was admitted to PCU from the ED. Patient was transferred up via medical bed. patient has bag of personal belongings with her and two rings on her left hand, which patient chooses to keep on person at this time. She was admitted with acute respiratory failure bilateral lower extremity cellulitis with maggots and chronic wound. Patient is alert and oriented to person, place and time. was placed on electronic device monitor box 8, and continuous pulse oximetry. She is currently on continuous BIBAP with Fi02 at 30%. Open wounds, un-stageable eschar to right foot, and cellulitis/ weeping /pitting edema to bilateral lower extremity. Additionally moist yeast and excoriation visualized under both breast. Patient is incontinent, purwick placed for comfort. Abdomen large, wounded, soft and nontender; active bowel sounds. Patient cannot recall last bowel movement. Lung sounds diminished bilaterally. Patient reports sever pain at this time describing generalized pain and pain to bilateral legs at 7/10. MD notified of admission to unit.
[2023-07-30] MEDS: K and/or MAG REPLACEMENT MC SCH ×2 (08:00→20:00)
[2023-07-30] MEDS: budesonide 0.5mg/2ml UD nebule IH SCH ×2 (08:34→20:04)
[2023-07-30 08:41] LABS: BASOPHILS % (AUTO) 0 % (0-1); EOSINOPHILS % (AUTO) 0 % (0-6); HEMATOCRIT 31.6 % (35.0-45.0); HEMOGLOBIN 9.6 g/dl (12.0-16.0); LYMPHOCYTES # (AUTO) 0.6 X10'3 (1.1-4.8); LYMPHOCYTES % (AUTO) 6.4 % (21-51); MEAN CORPUSCULAR HEMOGLOBIN 24.2 PG (27.0-31.0); MEAN CORPUSCULAR HGB CONC 30.5 g/dL (33.0-36.5); MEAN CORPUSCULAR VOLUME 79.5 FL (78-98); MONOCYTES # (AUTO) 0.3 X10'3 (0-0.9); MONOCYTES % (AUTO) 3.4 % (2-12); NEUTROPHILS # (AUTO) 7.9 X10'3 (1.8-7.7); NEUTROPHILS % (AUTO) 90.2 % (42-75); PLATELET COUNT 413 X10'3 (140-440); RED BLOOD COUNT 3.97 X10'6 (4.20-5.60); RED CELL DISTRIBUTION WIDTH 16.7 % (11.5-14.5); WHITE BLOOD COUNT 8.8 X10'3 (4.5-11.0)
[2023-07-30] MEDS ORDERED: vancomycin/NS 1 GM ADD-VANTAGE 250 ML IV SCH (09:00)
[2023-07-30 09:01] LABS: ALANINE AMINOTRANSFERASE 19 U/L (12-78); ALBUMIN 2.1 G/DL (3.4-5.0); ALBUMIN/GLOBULIN RATIO 0.4 (1.1-1.5); ALKALINE PHOSPHATASE 118 IU/L (46-116); ANION GAP 3 (8-16); ASPARTATE AMINO TRANSFERASE 13 U/L (10-37); BILIRUBIN,TOTAL 0.2 MG/DL (0.1-1.0); BLOOD UREA NITROGEN 24 MG/DL (7-18); BUN/CREATININE RATIO 17.5 (10.0-20.0); CHLORIDE 110 MMOL/L (99-107); CREATININE 1.37 MG/DL (0.40-0.90); GLUCOSE 112 MG/DL (70-104); MAGNESIUM 2.4 MG/DL (1.5-2.4); POTASSIUM 5.4 MMOL/L (3.5-5.1); SODIUM 144 MMOL/L (135-145); TOTAL CARBON DIOXIDE 30.6 MMOL/L (24-32); TOTAL PROTEIN 7.1 G/DL (6.4-8.2); eCRCL 35 ML/MIN; eGFR 38 ML/MIN
[2023-07-30] MEDS: CefTRIAXone/D5W-Rocephin 1gm 50 ML IV SCH (10:48)
[2023-07-30] MEDS: methylPREDNISolone sod succ/PF 40mg inj. IV SCH ×3 (10:57→22:09)
[2023-07-30] MEDS: EMPAGLIFLOZIN 10 MG TABLET PO SCH (10:58)
[2023-07-30] MEDS: sertraline 25mg tablet PO SCH (10:58)
[2023-07-30] MEDS: docusate sod 100mg capsule PO SCH ×2 (10:58→20:00)
[2023-07-30] MEDS: losartan 25mg tablet PO SCH (10:59)
[2023-07-30] MEDS: NYSTATIN 30 GM POWDER TP SCH ×2 (13:42→21:00)
[2023-07-30] MEDS: fluconazole-Diflucan 200mg/NS 100 ML IV SCH (13:42)
[2023-07-30] MEDS: acetaminophen 325mg tablet PO PRN (19:09)
[2023-07-30 20:08] LABS: ALBUMIN 2.1 G/DL (3.4-5.0); ANION GAP 5 (8-16); BLOOD UREA NITROGEN 31 MG/DL (7-18); BUN/CREATININE RATIO 21.8 (10.0-20.0); CHLORIDE 109 MMOL/L (99-107); CREATININE 1.42 MG/DL (0.40-0.90); GLUCOSE 115 MG/DL (70-104); POTASSIUM 5.2 MMOL/L (3.5-5.1); SODIUM 143 MMOL/L (135-145); TOTAL CARBON DIOXIDE 29.2 MMOL/L (24-32); eCRCL 34 ML/MIN; eGFR 37 ML/MIN
[2023-07-30] MEDS: vancomycin/NS 1 GM ADD-VANTAGE 250 ML IV SCH (22:09)
[2023-07-31] VITALS (16 sets, daily range): BP systolic 141–199; BP diastolic 68–92; PULSE 77–98; RESP 15–26; TEMP 97.3–98.4; O2SAT 93–97
--- NOTE | 2023-07-31 02:00 | NUR ---
telecasting technician advised of elevated BP systolic 195. hydralazine given by RN
[2023-07-31] MEDS: hydrALAZINE 20mg/ml inj. IV PRN ×2 (02:36→17:29)
[2023-07-31] MEDS: ipratropium 0.5 MG/2.5ML nebule IH SCH ×4 (02:40→20:37)
--- NOTE | 2023-07-31 03:00 | NUR ---
I AGREE WITH REFUGE MANAGER'S ASSESSMENT.
[2023-07-31] MEDS: budesonide 0.5mg/2ml UD nebule IH SCH ×2 (07:52→20:37)
[2023-07-31] MEDS: fluconazole-Diflucan 200mg/NS 100 ML IV SCH (08:00)
[2023-07-31] MEDS: docusate sod 100mg capsule PO SCH ×2 (08:00→20:00)
[2023-07-31] MEDS: K and/or MAG REPLACEMENT MC SCH ×2 (08:00→20:24)
[2023-07-31] MEDS: CefTRIAXone/D5W-Rocephin 1gm 50 ML IV SCH (08:30)
[2023-07-31] MEDS: losartan 25mg tablet PO SCH (08:30)
[2023-07-31] MEDS: methylPREDNISolone sod succ/PF 40mg inj. IV SCH ×3 (08:30→20:17)
[2023-07-31] MEDS: sertraline 25mg tablet PO SCH (08:31)
[2023-07-31] MEDS: NYSTATIN 30 GM POWDER TP SCH ×3 (08:31→21:00)
[2023-07-31] MEDS: heparin, porcine 5000 units/ml vial SQ SCH ×3 (08:31→16:00)
[2023-07-31] MEDS: EMPAGLIFLOZIN 10 MG TABLET PO SCH (08:31)
[2023-07-31 08:40] LABS: BASOPHILS % (AUTO) 0 % (0-1); EOSINOPHILS % (AUTO) 0 % (0-6); HEMATOCRIT 32.4 % (35.0-45.0); LYMPHOCYTES # (AUTO) 0.6 X10'3 (1.1-4.8); LYMPHOCYTES % (AUTO) 6.8 % (21-51); MEAN CORPUSCULAR HGB CONC 30.8 g/dL (33.0-36.5); MEAN CORPUSCULAR VOLUME 78.2 FL (78-98); MEAN PLATELET VOLUME 7.8 FL (7.4-10.4); MONOCYTES # (AUTO) 0.3 X10'3 (0-0.9); NEUTROPHILS # (AUTO) 7.8 X10'3 (1.8-7.7); NEUTROPHILS % (AUTO) 90.2 % (42-75); PLATELET COUNT 416 X10'3 (140-440); RED BLOOD COUNT 4.15 X10'6 (4.20-5.60); RED CELL DISTRIBUTION WIDTH 16.6 % (11.5-14.5); WHITE BLOOD COUNT 8.7 X10'3 (4.5-11.0)
[2023-07-31 09:14] LABS: ALANINE AMINOTRANSFERASE 14 U/L (12-78); ALBUMIN 2.1 G/DL (3.4-5.0); ALBUMIN/GLOBULIN RATIO 0.4 (1.1-1.5); ALKALINE PHOSPHATASE 107 IU/L (46-116); ANION GAP 6 (8-16); ASPARTATE AMINO TRANSFERASE 9 U/L (10-37); BILIRUBIN,TOTAL 0.2 MG/DL (0.1-1.0); BLOOD UREA NITROGEN 39 MG/DL (7-18); BUN/CREATININE RATIO 28.3 (10.0-20.0); CALCIUM 9.3 MG/DL (8.5-10.1); CHLORIDE 109 MMOL/L (99-107); CREATININE 1.38 MG/DL (0.40-0.90); GLUCOSE 116 MG/DL (70-104); MAGNESIUM 2.5 MG/DL (1.5-2.4); POTASSIUM 4.6 MMOL/L (3.5-5.1); SODIUM 143 MMOL/L (135-145); TOTAL CARBON DIOXIDE 27.8 MMOL/L (24-32); TOTAL PROTEIN 6.8 G/DL (6.4-8.2); eCRCL 35 ML/MIN; eGFR 38 ML/MIN
[2023-07-31 09:48] LABS: % IRON SATURATION 5 % (11-46); IRON 13 UG/DL (49-151); TOTAL IRON BINDING CAPACITY 241 UG/DL (259-388)
[2023-07-31] MEDS ORDERED: iron sucrose complex injection 500 MG in normal saline 250ml IV soln 250 ML IV ONE (09:50)
[2023-07-31] MEDS: acetaminophen 325mg tablet PO PRN (10:08)
--- NOTE | 2023-07-31 10:57 | NUR ---
Initial: Pt admit for acute hypercapnic respiratory failure likely secondary COPD exacerbation, metabolic encephalopathy, BLE infections with chronic wounds and copious amounts of maggots, sepsis, and PATRICIA. Wound care has been consulted, pending assessment at this time. Pt on a heart healthy diet however documented to be NPO. No documented BM since admit. Routine bowel care available however pt documented to have refused it. Additional PRN bowel care also available. Will continue to follow closely and make recommendations as appropriate pending trends in PO intake and wound care assessment. Recommendations: 1) Continue heart healthy diet 2) Monitor need for ONS 3) Continue routine Iron and Vitamin C d/t low iron studies 4) Routine bowel care 5) Weekly scaled weights Addendum: 07/31/23 at [address] Amended: Links added.
[2023-07-31] MEDS: vancomycin/NS 1 GM ADD-VANTAGE 250 ML IV SCH ×2 (11:00→17:55)
--- NOTE | 2023-07-31 17:25 | NUR ---
Notified of 12 beat run of v-tach and that I gave hydralazine for bp of 199/90. states to keep monitoring at this time. Orders received for severe pain in pt's right foot. Will monitor.
[2023-07-31] MEDS: ascorbic acid 500mg tablet PO SCH (17:54)
[2023-07-31] MEDS: HYDROmorphone inj. 0.5 MG/0.5 ML DISP.SYRIN IV PRN (17:54)
[2023-07-31] MEDS: FERROUS SULFATE 142 MG TABLET.ER (45mg elemental) PO SCH (20:19)
[2023-07-31] MEDS ORDERED: VANCOMYCIN LEVEL IV ONE (22:30)
--- NOTE | 2023-07-31 22:47 | NUR ---
called doctor to advise of BP 202/106. doctor advised to give 5mg of Norvasc once.
[2023-07-31] MEDS ORDERED: amLODIPine 5mg tablet PO ONE (22:50)
[2023-08-01] VITALS (16 sets, daily range): BP systolic 144–212; BP diastolic 73–105; PULSE 67–129; RESP 14–26; TEMP 97.8–98.6; O2SAT 90–96
[2023-08-01] MEDS: heparin, porcine 5000 units/ml vial SQ SCH ×3 (01:01→16:35)
[2023-08-01] MEDS: ipratropium 0.5 MG/2.5ML nebule IH SCH ×4 (03:03→21:17)
--- NOTE | 2023-08-01 04:00 | NUR ---
I AGREE WITH ARCHITECTURAL ASSOCIATE'S ASSESSMENT
--- NOTE | 2023-08-01 06:33 | NUR ---
late note from 07/31 1700: offered pt cleaning from head to toe and reposition. also stated that I needed to perform dressing changes. pt refused all. educated pt regarding keeping her skin clean and dry. pt still refused.
[2023-08-01] MEDS: fluconazole-Diflucan 200mg/NS 100 ML IV SCH (08:00)
[2023-08-01] MEDS: sertraline 25mg tablet PO SCH (08:00)
[2023-08-01] MEDS: FERROUS SULFATE 142 MG TABLET.ER (45mg elemental) PO SCH ×2 (08:00→19:21)
[2023-08-01] MEDS: EMPAGLIFLOZIN 10 MG TABLET PO SCH (08:00)
[2023-08-01] MEDS: NYSTATIN 30 GM POWDER TP SCH ×3 (08:00→21:00)
[2023-08-01] MEDS: docusate sod 100mg capsule PO SCH ×2 (08:00→19:21)
[2023-08-01] MEDS: K and/or MAG REPLACEMENT MC SCH ×2 (08:00→20:00)
[2023-08-01] MEDS: CefTRIAXone/D5W-Rocephin 1gm 50 ML IV SCH (08:00)
[2023-08-01] MEDS: methylPREDNISolone sod succ/PF 40mg inj. IV SCH ×3 (08:00→21:10)
[2023-08-01] MEDS ORDERED: VANCOMYCIN LEVEL IV ONE ×2 (08:30→22:30)
[2023-08-01] MEDS: ascorbic acid 500mg tablet PO SCH ×2 (08:30→16:35)
--- NOTE | 2023-08-01 09:00 | NUR ---
Pt received a head to toe bed bath along with hair shower cap and clean bed linen. Pt tolerated well.
[2023-08-01 09:04] LABS: BASOPHILS % (AUTO) 0.1 % (0-1); EOSINOPHILS % (AUTO) 0 % (0-6); LYMPHOCYTES # (AUTO) 0.5 X10'3 (1.1-4.8); LYMPHOCYTES % (AUTO) 6.2 % (21-51); MEAN PLATELET VOLUME 7.8 FL (7.4-10.4); MONOCYTES # (AUTO) 0.2 X10'3 (0-0.9); MONOCYTES % (AUTO) 2.2 % (2-12); NEUTROPHILS # (AUTO) 7.1 X10'3 (1.8-7.7); NEUTROPHILS % (AUTO) 91.5 % (42-75); PLATELET COUNT 405 X10'3 (140-440); WHITE BLOOD COUNT 7.8 X10'3 (4.5-11.0)
[2023-08-01 09:09] LABS: ALANINE AMINOTRANSFERASE 10 U/L (12-78); ALBUMIN 2.1 G/DL (3.4-5.0); ALBUMIN/GLOBULIN RATIO 0.5 (1.1-1.5); ALKALINE PHOSPHATASE 100 IU/L (46-116); ANION GAP 4 (8-16); ASPARTATE AMINO TRANSFERASE 10 U/L (10-37); BILIRUBIN,TOTAL 0.1 MG/DL (0.1-1.0); BLOOD UREA NITROGEN 46 MG/DL (7-18); BUN/CREATININE RATIO 30.7 (10.0-20.0); CALCIUM 8.8 MG/DL (8.5-10.1); CHLORIDE 105 MMOL/L (99-107); GLUCOSE 189 MG/DL (70-104); MAGNESIUM 2.4 MG/DL (1.5-2.4); POTASSIUM 4.6 MMOL/L (3.5-5.1); SODIUM 138 MMOL/L (135-145); TOTAL CARBON DIOXIDE 29.1 MMOL/L (24-32); TOTAL PROTEIN 6.7 G/DL (6.4-8.2); eCRCL 32 ML/MIN; eGFR 35 ML/MIN
[2023-08-01 09:25] LABS: HEMATOCRIT 39.4 % (35.0-45.0); HEMOGLOBIN 12.2 g/dl (12.0-16.0); MEAN CORPUSCULAR HEMOGLOBIN 24.6 PG (27.0-31.0); MEAN CORPUSCULAR HGB CONC 30.9 g/dL (33.0-36.5); MEAN CORPUSCULAR VOLUME 79.7 FL (78-98); RED BLOOD COUNT 4.95 X10'6 (4.20-5.60); RED CELL DISTRIBUTION WIDTH 16.1 % (11.5-14.5)
[2023-08-01] MEDS ORDERED: losartan 50mg tablet PO ONE (09:30)
[2023-08-01] MEDS: budesonide 0.5mg/2ml UD nebule IH SCH ×2 (09:36→21:17)
[2023-08-01] MEDS: vancomycin/NS 1 GM ADD-VANTAGE 250 ML IV SCH (11:00)
[2023-08-01] MEDS: hydrALAZINE 20mg/ml inj. IV PRN (11:42)
[2023-08-01] MEDS: HYDROmorphone inj. 0.5 MG/0.5 ML DISP.SYRIN IV PRN ×2 (11:42→21:11)
--- NOTE | 2023-08-01 14:00 | NUR ---
pt refused PT
--- NOTE | 2023-08-01 16:52 | NUR ---
1500 SVN TRIAGED. THERAPIST NOT AVAILABLE
[2023-08-02] VITALS (19 sets, daily range): BP systolic 132–185; BP diastolic 50–85; PULSE 72–87; RESP 15–26; TEMP 97.7–98.2; O2SAT 90–96
[2023-08-02] MEDS: heparin, porcine 5000 units/ml vial SQ SCH ×4 (00:03→23:35)
[2023-08-02] MEDS: vancomycin/NS 1 GM ADD-VANTAGE 250 ML IV SCH ×3 (00:27→23:29)
[2023-08-02] MEDS: ipratropium 0.5 MG/2.5ML nebule IH SCH ×3 (02:53→20:42)
--- NOTE | 2023-08-02 03:19 | NUR ---
Assessed physical assessment done my Karena PIZZA HUT ASSISTANT and I agree with assessment findings, Nathaniel GOMEZ.
--- NOTE | 2023-08-02 06:45 | NUR ---
Patient in room PCU 3009. I have received report from Yakelin MADDEN and had the opportunity to ask questions and assume patient care.
[2023-08-02 07:58] LABS: BASOPHILS % (AUTO) 0 % (0-1); EOSINOPHILS % (AUTO) 0 % (0-6); HEMATOCRIT 35.6 % (35.0-45.0); HEMOGLOBIN 10.9 g/dl (12.0-16.0); LYMPHOCYTES # (AUTO) 0.6 X10'3 (1.1-4.8); MEAN CORPUSCULAR HEMOGLOBIN 23.9 PG (27.0-31.0); MEAN CORPUSCULAR HGB CONC 30.6 g/dL (33.0-36.5); MEAN CORPUSCULAR VOLUME 77.9 FL (78-98); MEAN PLATELET VOLUME 7.7 FL (7.4-10.4); MONOCYTES # (AUTO) 0.5 X10'3 (0-0.9); MONOCYTES % (AUTO) 5.7 % (2-12); NEUTROPHILS # (AUTO) 8.1 X10'3 (1.8-7.7); NEUTROPHILS % (AUTO) 88.3 % (42-75); PLATELET COUNT 403 X10'3 (140-440); RED BLOOD COUNT 4.57 X10'6 (4.20-5.60); RED CELL DISTRIBUTION WIDTH 16.5 % (11.5-14.5); WHITE BLOOD COUNT 9.2 X10'3 (4.5-11.0)
[2023-08-02] MEDS: docusate sod 100mg capsule PO SCH ×2 (08:00→20:55)
[2023-08-02] MEDS: NYSTATIN 30 GM POWDER TP SCH ×4 (08:00→23:42)
[2023-08-02] MEDS: K and/or MAG REPLACEMENT MC SCH ×2 (08:00→20:00)
[2023-08-02] MEDS ORDERED: losartan 50mg tablet PO SCH (08:00)
[2023-08-02] MEDS: budesonide 0.5mg/2ml UD nebule IH SCH ×2 (08:13→20:42)
[2023-08-02] MEDS ORDERED: polyethylene glycol 3350 17gm powd pack PO ONE (08:30)
[2023-08-02 08:34] LABS: ALANINE AMINOTRANSFERASE 10 U/L (12-78); ALBUMIN 2.3 G/DL (3.4-5.0); ALBUMIN/GLOBULIN RATIO 0.5 (1.1-1.5); ALKALINE PHOSPHATASE 96 IU/L (46-116); ANION GAP 6 (8-16); ASPARTATE AMINO TRANSFERASE 9 U/L (10-37); BILIRUBIN,TOTAL 0.2 MG/DL (0.1-1.0); BLOOD UREA NITROGEN 46 MG/DL (7-18); BUN/CREATININE RATIO 33.6 (10.0-20.0); CALCIUM 8.8 MG/DL (8.5-10.1); CHLORIDE 105 MMOL/L (99-107); CREATININE 1.37 MG/DL (0.40-0.90); GLUCOSE 114 MG/DL (70-104); MAGNESIUM 2.6 MG/DL (1.5-2.4); SODIUM 139 MMOL/L (135-145); TOTAL CARBON DIOXIDE 28.3 MMOL/L (24-32); TOTAL PROTEIN 6.9 G/DL (6.4-8.2); eCRCL 35 ML/MIN; eGFR 38 ML/MIN
[2023-08-02] MEDS: CefTRIAXone/D5W-Rocephin 1gm 50 ML IV SCH (09:31)
[2023-08-02] MEDS: fluconazole-Diflucan 200mg/NS 100 ML IV SCH (09:31)
[2023-08-02] MEDS: sertraline 25mg tablet PO SCH (09:32)
[2023-08-02] MEDS: FERROUS SULFATE 142 MG TABLET.ER (45mg elemental) PO SCH ×2 (09:32→20:55)
[2023-08-02] MEDS: EMPAGLIFLOZIN 10 MG TABLET PO SCH (09:32)
[2023-08-02] MEDS: ascorbic acid 500mg tablet PO SCH ×2 (09:32→16:35)
[2023-08-02] MEDS: losartan 50mg tablet PO SCH (09:33)
[2023-08-02] MEDS: HYDROmorphone inj. 0.5 MG/0.5 ML DISP.SYRIN IV PRN ×2 (09:34→21:04)
[2023-08-02] MEDS: methylPREDNISolone sod succ/PF 40mg inj. IV SCH ×3 (09:35→20:55)
[2023-08-02 10:51] LABS: NUCLEATED RED BLOOD CELLS 1 /100WBC (0-0); TOTAL CELLS COUNTED 100
[2023-08-02 10:54] LABS: ANISOCYTOSIS 1+; ELLIPTOCYTES FEW; HYPOCHROMASIA 1+; MICROCYTOSIS 1+; PLATELET ESTIMATE NORMAL; TEAR DROP CELLS FEW
--- NOTE | 2023-08-02 12:43 | NUR ---
PAGER ID: [phone] MESSAGE: Maria De Jesus Guido0, Pt is refusing the MRI. MRI has been notified. Huseyin [id number]
--- NOTE | 2023-08-02 18:37 | NUR ---
Problems reprioritized. Patient report given, questions answered & plan of care reviewed with Eunice GOMEZ.
[2023-08-02] MEDS: polyethylene glycol 3350 17gm powd pack PO SCH (20:56)
[2023-08-03] VITALS (19 sets, daily range): BP systolic 156–211; BP diastolic 75–88; PULSE 72–86; RESP 12–21; TEMP 97.8–98.1; O2SAT 90–94
[2023-08-03] MEDS: ipratropium 0.5 MG/2.5ML nebule IH SCH ×4 (03:25→21:39)
--- NOTE | 2023-08-03 06:34 | NUR ---
Patient in room PCU 3009. I have received report from Eunice GOMEZ and had the opportunity to ask questions and assume patient care.
--- NOTE | 2023-08-03 06:35 | NUR ---
Problems reprioritized. Patient report given, questions answered & plan of care reviewed with Huseyin
[2023-08-03 06:44] LABS: ALANINE AMINOTRANSFERASE 10 U/L (12-78); ALBUMIN 2.2 G/DL (3.4-5.0); ALBUMIN/GLOBULIN RATIO 0.5 (1.1-1.5); ALKALINE PHOSPHATASE 90 IU/L (46-116); ANION GAP 4 (8-16); ASPARTATE AMINO TRANSFERASE 9 U/L (10-37); BILIRUBIN,TOTAL 0.2 MG/DL (0.1-1.0); BLOOD UREA NITROGEN 49 MG/DL (7-18); BUN/CREATININE RATIO 34.3 (10.0-20.0); CALCIUM 8.4 MG/DL (8.5-10.1); CHLORIDE 106 MMOL/L (99-107); CREATININE 1.43 MG/DL (0.40-0.90); GLUCOSE 119 MG/DL (70-104); MAGNESIUM 2.6 MG/DL (1.5-2.4); POTASSIUM 4.9 MMOL/L (3.5-5.1); SODIUM 139 MMOL/L (135-145); TOTAL PROTEIN 6.6 G/DL (6.4-8.2); eCRCL 34 ML/MIN; eGFR 36 ML/MIN
[2023-08-03] MEDS: budesonide 0.5mg/2ml UD nebule IH SCH ×2 (07:21→21:39)
[2023-08-03 07:22] LABS: BASOPHILS % (AUTO) 0.1 % (0-1); EOSINOPHILS % (AUTO) 0 % (0-6); HEMATOCRIT 35.3 % (35.0-45.0); HEMOGLOBIN 10.8 g/dl (12.0-16.0); LYMPHOCYTES # (AUTO) 0.5 X10'3 (1.1-4.8); LYMPHOCYTES % (AUTO) 5.1 % (21-51); MEAN CORPUSCULAR HEMOGLOBIN 24.1 PG (27.0-31.0); MEAN CORPUSCULAR HGB CONC 30.6 g/dL (33.0-36.5); MEAN CORPUSCULAR VOLUME 78.7 FL (78-98); MEAN PLATELET VOLUME 7.9 FL (7.4-10.4); MONOCYTES # (AUTO) 0.3 X10'3 (0-0.9); MONOCYTES % (AUTO) 3.5 % (2-12); NEUTROPHILS # (AUTO) 9.1 X10'3 (1.8-7.7); NEUTROPHILS % (AUTO) 91.3 % (42-75); PLATELET COUNT 359 X10'3 (140-440); RED BLOOD COUNT 4.48 X10'6 (4.20-5.60); RED CELL DISTRIBUTION WIDTH 16.7 % (11.5-14.5)
[2023-08-03] MEDS: docusate sod 100mg capsule PO SCH ×2 (08:00→21:22)
[2023-08-03] MEDS: K and/or MAG REPLACEMENT MC SCH ×2 (08:00→20:00)
[2023-08-03] MEDS: NYSTATIN 30 GM POWDER TP SCH ×3 (08:00→21:36)
[2023-08-03] MEDS: heparin, porcine 5000 units/ml vial SQ SCH ×3 (09:13→23:08)
[2023-08-03] MEDS: methylPREDNISolone sod succ/PF 40mg inj. IV SCH ×2 (09:13→21:17)
[2023-08-03] MEDS: losartan 50mg tablet PO SCH (09:14)
[2023-08-03] MEDS: EMPAGLIFLOZIN 10 MG TABLET PO SCH (09:14)
[2023-08-03] MEDS: FERROUS SULFATE 142 MG TABLET.ER (45mg elemental) PO SCH ×2 (09:14→21:21)
[2023-08-03] MEDS: ascorbic acid 500mg tablet PO SCH ×2 (09:14→17:24)
[2023-08-03] MEDS: fluconazole-Diflucan 200mg/NS 100 ML IV SCH (09:15)
[2023-08-03] MEDS: sertraline 25mg tablet PO SCH (09:15)
[2023-08-03] MEDS: CefTRIAXone/D5W-Rocephin 1gm 50 ML IV SCH (09:15)
[2023-08-03] MEDS: HYDROmorphone inj. 0.5 MG/0.5 ML DISP.SYRIN IV PRN ×2 (10:39→21:18)
[2023-08-03] MEDS ORDERED: CefTRIAXone/D5W-Rocephin 1gm 50 ML IV ONE (11:30)
[2023-08-03] MEDS: vancomycin/NS 1 GM ADD-VANTAGE 250 ML IV SCH ×2 (12:19→22:55)
[2023-08-03] MEDS: hydrALAZINE 20mg/ml inj. IV PRN ×2 (12:23→23:04)
--- NOTE | 2023-08-03 18:16 | NUR ---
Problems reprioritized. Patient report given, questions answered & plan of care reviewed with Eunice GOMEZ.
[2023-08-03] MEDS: metroNIDAZOLE-Flagyl 500mg/NS 100 ML IV SCH (21:13)
[2023-08-03] MEDS: polyethylene glycol 3350 17gm powd pack PO SCH (21:22)
[2023-08-04] VITALS (18 sets, daily range): BP systolic 152–198; BP diastolic 84–97; PULSE 76–87; RESP 16–26; TEMP 97.6–98.6; O2SAT 90–99
--- NOTE | 2023-08-04 03:40 | NUR ---
okayed to give pt 10mg iv hydralazine once now for b/p of .
[2023-08-04] MEDS ORDERED: hydrALAZINE 20mg/ml inj. IV ONE (03:45)
[2023-08-04] MEDS: ipratropium 0.5 MG/2.5ML nebule IH SCH ×4 (04:16→20:56)
--- NOTE | 2023-08-04 06:11 | NUR ---
Problems reprioritized. Patient report given, questions answered & plan of care reviewed with Huseyin.
--- NOTE | 2023-08-04 06:18 | NUR ---
Patient in room PCU 3009. I have received report from Euniec GOMEZ and had the opportunity to ask questions and assume patient care.
[2023-08-04] MEDS: docusate sod 100mg capsule PO SCH ×2 (08:00→20:15)
[2023-08-04] MEDS: K and/or MAG REPLACEMENT MC SCH ×2 (08:00→20:00)
[2023-08-04] MEDS: NYSTATIN 30 GM POWDER TP SCH ×3 (08:00→20:17)
[2023-08-04] MEDS: budesonide 0.5mg/2ml UD nebule IH SCH ×2 (08:13→20:56)
[2023-08-04] MEDS: metroNIDAZOLE-Flagyl 500mg/NS 100 ML IV SCH ×2 (09:04→20:13)
[2023-08-04] MEDS: methylPREDNISolone sod succ/PF 40mg inj. IV SCH ×2 (09:05→20:13)
[2023-08-04] MEDS: CefTRIAXone 2gm/D5W 50ml BAG 50 ML IV SCH (09:05)
[2023-08-04] MEDS: heparin, porcine 5000 units/ml vial SQ SCH ×3 (09:06→23:27)
[2023-08-04] MEDS: FERROUS SULFATE 142 MG TABLET.ER (45mg elemental) PO SCH ×2 (09:06→20:14)
[2023-08-04] MEDS: ascorbic acid 500mg tablet PO SCH ×2 (09:07→16:53)
[2023-08-04] MEDS: sertraline 25mg tablet PO SCH (09:07)
[2023-08-04] MEDS: EMPAGLIFLOZIN 10 MG TABLET PO SCH (09:07)
[2023-08-04] MEDS: losartan 50mg tablet PO SCH (09:08)
[2023-08-04 10:38] LABS: BASOPHILS % (AUTO) 0.3 % (0-1); EOSINOPHILS % (AUTO) 0 % (0-6); HEMATOCRIT 37.4 % (35.0-45.0); HEMOGLOBIN 11.4 g/dl (12.0-16.0); LYMPHOCYTES # (AUTO) 0.7 X10'3 (1.1-4.8); LYMPHOCYTES % (AUTO) 7.6 % (21-51); MEAN CORPUSCULAR HEMOGLOBIN 23.8 PG (27.0-31.0); MEAN CORPUSCULAR HGB CONC 30.6 g/dL (33.0-36.5); MEAN CORPUSCULAR VOLUME 77.6 FL (78-98); MEAN PLATELET VOLUME 8.3 FL (7.4-10.4); MONOCYTES # (AUTO) 0.6 X10'3 (0-0.9); MONOCYTES % (AUTO) 5.8 % (2-12); NEUTROPHILS # (AUTO) 8.3 X10'3 (1.8-7.7); NEUTROPHILS % (AUTO) 86.3 % (42-75); PLATELET COUNT 355 X10'3 (140-440); RED BLOOD COUNT 4.81 X10'6 (4.20-5.60); RED CELL DISTRIBUTION WIDTH 16.9 % (11.5-14.5); WHITE BLOOD COUNT 9.6 X10'3 (4.5-11.0)
[2023-08-04] MEDS: HYDROmorphone inj. 0.5 MG/0.5 ML DISP.SYRIN IV PRN ×2 (10:45→20:14)
--- NOTE | 2023-08-04 11:15 | NUR ---
Reassessment: Pt continues on heart healthy diet with fluctuating PO intake averaging 76% PO intake since admit meeting 85% estimated energy needs and 83% estimated protein needs. See nutrition interventions below that were d/w dietary to provide additional nutrition per pt preference at previous admits. LBM 07/29 per EMR. Pt documented to refuse routine Colace at times. Pt started on routine Miralax 08/02 and has PRN bowel care available. D/w dietary to send prunes and prune juice with next meal to assist with a BM. Will continue to follow and monitor need for further nutrition intervention. Recommendations: 1) Continue heart healthy diet 2) [place] patient's preferences from previous admits: gelatin WB, chocolate pudding WL, cottage cheese WS; no fish 3) Monitor need for ONS 4) Continue routine Iron and Vitamin C d/t low iron studies 5) Routine and PRN bowel care 6) Weekly scaled weights Addendum: 08/04/23 at [address] Amended: Links added.
[2023-08-04 11:17] LABS: ANISOCYTOSIS 1+; MICROCYTOSIS 1+; PLATELET ESTIMATE NORMAL; TOTAL CELLS COUNTED 100
[2023-08-04 11:18] LABS: POLYCHROMASIA FEW; TEAR DROP CELLS FEW
[2023-08-04 12:00] LABS: ALANINE AMINOTRANSFERASE 10 U/L (12-78); ALBUMIN 2.4 G/DL (3.4-5.0); ALBUMIN/GLOBULIN RATIO 0.6 (1.1-1.5); ALKALINE PHOSPHATASE 88 IU/L (46-116); ANION GAP 9 (8-16); ASPARTATE AMINO TRANSFERASE 9 U/L (10-37); BILIRUBIN,TOTAL 0.2 MG/DL (0.1-1.0); BLOOD UREA NITROGEN 43 MG/DL (7-18); BUN/CREATININE RATIO 32.6 (10.0-20.0); CALCIUM 8.8 MG/DL (8.5-10.1); CHLORIDE 106 MMOL/L (99-107); CREATININE 1.32 MG/DL (0.40-0.90); GLUCOSE 137 MG/DL (70-104); POTASSIUM 4.7 MMOL/L (3.5-5.1); SODIUM 141 MMOL/L (135-145); TOTAL CARBON DIOXIDE 26.2 MMOL/L (24-32); TOTAL PROTEIN 6.2 G/DL (6.4-8.2); eCRCL 37 ML/MIN; eGFR 40 ML/MIN
[2023-08-04] MEDS: vancomycin/NS 1 GM ADD-VANTAGE 250 ML IV SCH ×2 (12:29→23:17)
[2023-08-04] MEDS: hydrALAZINE 20mg/ml inj. IV PRN (12:30)
--- NOTE | 2023-08-04 13:49 | NUR ---
PRESSURE ULCER EDUCATION: DEFINITION: A pressure ulcer is an area of skin that breaks down when you stay in one position too long. The constant pressure against the skin reduces the blood flow to that area and the affected tissue dies. CAUSES: "Being bedridden or in a wheelchair "Fragile skin "Having a chronic condition, such as diabetes or vascular disease "Inability to move certain parts of your body without assistance "Older age "Incontinence of urine or stool SYMPTOMS: "A reddened area that DOES NOT turn white when pressed on - this can be the beginning of a pressure ulcer "A blister, deep sore or a crater - these can be advanced pressure ulcers FIRST AID: "Relieve the pressure on this area "Keep the area clean and dry "Call your primary doctor if you see any of the above symptoms "DO NOT massage the area "DO NOT use a donut shaped or ring shaped pillow- these actually interfere with the blood flow and cause complications PREVENTION: "Check for pressure ulcers everyday "Change position at least every two hours to relieve pressure "Use items that help relieve pressure- pillows, sheepskin, foam padding, and powders. "Keep skin clean and dry "Eat healthy well balanced meals "Exercise daily IF YOU SEE ANY OF THESE SYMPTOMS WHILE IN THE HOSPITAL - TELL YOUR NURSE IMMEDIATELY. IF YOU SEE ANY OF THESE SYMPTOMS WHILE AT HOME OR HAVE ANY QUESTIONS OR CONCERNS ABOUT PRESSURE ULCERS - CALL YOUR PRIMARY DOCTOR IMMEDIATELY. Addendum: 08/04/23 at 1350 by Zehra Mcneil RN Amended: Links added.
--- NOTE | 2023-08-04 16:18 | NUR ---
PAGER ID: [phone] MESSAGE: Maria De Jesus Guido9, Pt has had high BP not controlled with current dose of hydralazine. Latest BP was 186/86(115). Huseyin [id number]
[2023-08-04] MEDS ORDERED: amLODIPine 5mg tablet PO ONE (16:40)
--- NOTE | 2023-08-04 18:24 | NUR ---
Problems reprioritized. Patient report given, questions answered & plan of care reviewed with Rolan GOMEZ.
--- NOTE | 2023-08-04 18:45 | NUR ---
Patient in room PCU 3009. I have received report from WILEY GOMEZ and had the opportunity to ask questions and assume patient care.
[2023-08-04] MEDS: polyethylene glycol 3350 17gm powd pack PO SCH (20:15)
[2023-08-05] VITALS (19 sets, daily range): BP systolic 124–194; BP diastolic 66–98; PULSE 72–86; RESP 18–24; TEMP 97.6–98.2; O2SAT 90–98
[2023-08-05] MEDS: ipratropium 0.5 MG/2.5ML nebule IH SCH ×4 (02:34→20:56)
--- NOTE | 2023-08-05 06:42 | NUR ---
Problems reprioritized. Patient report given, questions answered & plan of care reviewed with ROBIN GOMEZ.
[2023-08-05] MEDS: budesonide 0.5mg/2ml UD nebule IH SCH ×2 (08:00→20:56)
[2023-08-05] MEDS: K and/or MAG REPLACEMENT MC SCH ×2 (08:00→20:00)
[2023-08-05] MEDS: metroNIDAZOLE-Flagyl 500mg/NS 100 ML IV SCH ×2 (10:01→21:04)
[2023-08-05] MEDS: CefTRIAXone 2gm/D5W 50ml BAG 50 ML IV SCH (10:01)
[2023-08-05] MEDS: EMPAGLIFLOZIN 10 MG TABLET PO SCH (10:08)
[2023-08-05] MEDS: ascorbic acid 500mg tablet PO SCH ×2 (10:09→17:55)
[2023-08-05] MEDS: amLODIPine 5mg tablet PO SCH (10:09)
[2023-08-05] MEDS: losartan 50mg tablet PO SCH (10:09)
[2023-08-05] MEDS: furosemide 20 MG/2 ML vial IV SCH (10:09)
[2023-08-05] MEDS: docusate sod 100mg capsule PO SCH ×2 (10:10→21:03)
[2023-08-05] MEDS: sertraline 25mg tablet PO SCH (10:10)
[2023-08-05] MEDS: methylPREDNISolone sod succ/PF 40mg inj. IV SCH ×2 (10:10→21:04)
[2023-08-05] MEDS: FERROUS SULFATE 142 MG TABLET.ER (45mg elemental) PO SCH ×2 (10:11→21:03)
[2023-08-05] MEDS: heparin, porcine 5000 units/ml vial SQ SCH ×3 (10:13→23:14)
[2023-08-05] MEDS: NYSTATIN 30 GM POWDER TP SCH ×2 (10:13→13:50)
[2023-08-05] MEDS: HYDROmorphone inj. 0.5 MG/0.5 ML DISP.SYRIN IV PRN (13:24)
[2023-08-05] MEDS: vancomycin/NS 1 GM ADD-VANTAGE 250 ML IV SCH ×2 (15:52→23:13)
--- NOTE | 2023-08-05 18:30 | NUR ---
Patient in room PCU 3009. I have received report from JASON Taylor and had the opportunity to ask questions and assume patient care.
[2023-08-05] MEDS: nystatin 15 GM powder TP SCH (21:03)
[2023-08-05] MEDS: polyethylene glycol 3350 17gm powd pack PO SCH (21:04)
[2023-08-06] VITALS (17 sets, daily range): BP systolic 118–174; BP diastolic 54–79; PULSE 61–84; RESP 16–24; TEMP 97–98; O2SAT 92–97
[2023-08-06] MEDS: ipratropium 0.5 MG/2.5ML nebule IH SCH ×4 (04:32→20:37)
--- NOTE | 2023-08-06 06:43 | NUR ---
Problems reprioritized. Patient report given, questions answered & plan of care reviewed with JASON Bragg.
[2023-08-06] MEDS: CefTRIAXone 2gm/D5W 50ml BAG 50 ML IV SCH (08:00)
[2023-08-06] MEDS: K and/or MAG REPLACEMENT MC SCH ×2 (08:00→20:00)
[2023-08-06] MEDS: losartan 50mg tablet PO SCH (08:34)
[2023-08-06] MEDS: docusate sod 100mg capsule PO SCH ×2 (08:34→21:22)
[2023-08-06] MEDS: FERROUS SULFATE 142 MG TABLET.ER (45mg elemental) PO SCH ×2 (08:34→21:22)
[2023-08-06] MEDS: metroNIDAZOLE-Flagyl 500mg/NS 100 ML IV SCH ×2 (08:34→21:22)
[2023-08-06] MEDS: methylPREDNISolone sod succ/PF 40mg inj. IV SCH ×2 (08:35→21:22)
[2023-08-06] MEDS: furosemide 20 MG/2 ML vial IV SCH (08:35)
[2023-08-06] MEDS: sertraline 25mg tablet PO SCH (08:35)
[2023-08-06] MEDS: ascorbic acid 500mg tablet PO SCH ×2 (08:35→16:33)
[2023-08-06] MEDS: EMPAGLIFLOZIN 10 MG TABLET PO SCH (08:35)
[2023-08-06] MEDS: amLODIPine 5mg tablet PO SCH (08:35)
[2023-08-06] MEDS: nystatin 15 GM powder TP SCH ×3 (08:36→21:23)
[2023-08-06] MEDS: heparin, porcine 5000 units/ml vial SQ SCH ×3 (08:36→23:49)
[2023-08-06] MEDS: budesonide 0.5mg/2ml UD nebule IH SCH ×2 (08:38→20:37)
[2023-08-06 09:23] LABS: ALANINE AMINOTRANSFERASE 12 U/L (12-78); ALBUMIN 2.3 G/DL (3.4-5.0); ALBUMIN/GLOBULIN RATIO 0.6 (1.1-1.5); ALKALINE PHOSPHATASE 81 IU/L (46-116); ANION GAP 5 (8-16); ASPARTATE AMINO TRANSFERASE 10 U/L (10-37); BILIRUBIN,TOTAL 0.2 MG/DL (0.1-1.0); BLOOD UREA NITROGEN 39 MG/DL (7-18); BUN/CREATININE RATIO 32.5 (10.0-20.0); CALCIUM 8.3 MG/DL (8.5-10.1); CHLORIDE 102 MMOL/L (99-107); GLUCOSE 155 MG/DL (70-104); POTASSIUM 4.7 MMOL/L (3.5-5.1); SODIUM 139 MMOL/L (135-145); TOTAL PROTEIN 5.9 G/DL (6.4-8.2); eCRCL 40 ML/MIN; eGFR 45 ML/MIN
[2023-08-06] MEDS: vancomycin/NS 1 GM ADD-VANTAGE 250 ML IV SCH ×2 (11:00→23:48)
[2023-08-06] MEDS: acetaminophen 325mg tablet PO PRN (17:03)
[2023-08-06] MEDS: polyethylene glycol 3350 17gm powd pack PO SCH (21:22)
[2023-08-07] VITALS (16 sets, daily range): BP systolic 132–165; BP diastolic 62–94; PULSE 72–86; RESP 15–22; TEMP 97.6–98.2; O2SAT 90–96
[2023-08-07] MEDS: ipratropium 0.5 MG/2.5ML nebule IH SCH ×4 (03:03→20:33)
[2023-08-07 07:51] LABS: ALANINE AMINOTRANSFERASE 18 U/L (12-78); ALBUMIN 2.5 G/DL (3.4-5.0); ALBUMIN/GLOBULIN RATIO 0.7 (1.1-1.5); ALKALINE PHOSPHATASE 84 IU/L (46-116); ANION GAP 3 (8-16); ASPARTATE AMINO TRANSFERASE 16 U/L (10-37); BILIRUBIN,TOTAL 0.3 MG/DL (0.1-1.0); BLOOD UREA NITROGEN 38 MG/DL (7-18); BUN/CREATININE RATIO 29.5 (10.0-20.0); CALCIUM 8.5 MG/DL (8.5-10.1); CHLORIDE 103 MMOL/L (99-107); CREATININE 1.29 MG/DL (0.40-0.90); GLUCOSE 127 MG/DL (70-104); POTASSIUM 5.2 MMOL/L (3.5-5.1); SODIUM 139 MMOL/L (135-145); TOTAL CARBON DIOXIDE 32.7 MMOL/L (24-32); TOTAL PROTEIN 6.1 G/DL (6.4-8.2); eCRCL 38 ML/MIN; eGFR 41 ML/MIN
[2023-08-07] MEDS: docusate sod 100mg capsule PO SCH ×2 (08:00→20:00)
[2023-08-07] MEDS: nystatin 15 GM powder TP SCH ×3 (08:00→21:19)
[2023-08-07] MEDS: heparin, porcine 5000 units/ml vial SQ SCH ×2 (08:00→16:19)
[2023-08-07] MEDS: K and/or MAG REPLACEMENT MC SCH ×2 (08:00→20:00)
[2023-08-07] MEDS: CefTRIAXone 2gm/D5W 50ml BAG 50 ML IV SCH (08:00)
[2023-08-07] MEDS: budesonide 0.5mg/2ml UD nebule IH SCH ×2 (09:29→20:33)
[2023-08-07] MEDS: vancomycin/NS 1 GM ADD-VANTAGE 250 ML IV SCH (11:00)
[2023-08-07] MEDS: ascorbic acid 500mg tablet PO SCH ×2 (11:52→17:50)
[2023-08-07] MEDS: EMPAGLIFLOZIN 10 MG TABLET PO SCH (11:52)
[2023-08-07] MEDS: losartan 50mg tablet PO SCH (11:52)
[2023-08-07] MEDS: sertraline 25mg tablet PO SCH (11:52)
[2023-08-07] MEDS: furosemide 20 MG/2 ML vial IV SCH (11:53)
[2023-08-07] MEDS: FERROUS SULFATE 142 MG TABLET.ER (45mg elemental) PO SCH ×2 (11:53→21:31)
[2023-08-07] MEDS: methylPREDNISolone sod succ/PF 40mg inj. IV SCH ×2 (11:53→21:31)
[2023-08-07] MEDS: amLODIPine 5mg tablet PO SCH (11:53)
[2023-08-07] MEDS: metroNIDAZOLE-Flagyl 500mg/NS 100 ML IV SCH ×2 (11:53→21:33)
[2023-08-07] MEDS ORDERED: morphine 2 MG/ML inj. syringe IV PRN (15:05)
[2023-08-07] MEDS: acetaminophen 325mg tablet PO PRN (17:57)
[2023-08-07] MEDS: polyethylene glycol 3350 17gm powd pack PO SCH (21:00)
[2023-08-08] VITALS (17 sets, daily range): BP systolic 138–148; BP diastolic 59–89; PULSE 74–99; RESP 15–21; TEMP 97.4–98.5; O2SAT 92–98
[2023-08-08] MEDS: heparin, porcine 5000 units/ml vial SQ SCH ×3 (00:03→17:27)
[2023-08-08] MEDS: vancomycin/NS 1 GM ADD-VANTAGE 250 ML IV SCH ×2 (00:04→11:00)
[2023-08-08] MEDS: ipratropium 0.5 MG/2.5ML nebule IH SCH ×4 (03:23→20:53)
[2023-08-08 06:20] LABS: BASOPHILS % (AUTO) 0.1 % (0-1); EOSINOPHILS % (AUTO) 0 % (0-6); HEMOGLOBIN 11.3 g/dl (12.0-16.0); LYMPHOCYTES # (AUTO) 0.4 X10'3 (1.1-4.8); LYMPHOCYTES % (AUTO) 3.8 % (21-51); MEAN PLATELET VOLUME 8.6 FL (7.4-10.4); MONOCYTES # (AUTO) 0.2 X10'3 (0-0.9); MONOCYTES % (AUTO) 2.1 % (2-12); PLATELET COUNT 242 X10'3 (140-440); WHITE BLOOD COUNT 11.7 X10'3 (4.5-11.0)
[2023-08-08 06:27] LABS: ALANINE AMINOTRANSFERASE 16 U/L (12-78); ALBUMIN 2.2 G/DL (3.4-5.0); ALBUMIN/GLOBULIN RATIO 0.7 (1.1-1.5); ALKALINE PHOSPHATASE 72 IU/L (46-116); ANION GAP 1 (8-16); ASPARTATE AMINO TRANSFERASE 8 U/L (10-37); BILIRUBIN,TOTAL 0.2 MG/DL (0.1-1.0); BLOOD UREA NITROGEN 39 MG/DL (7-18); BUN/CREATININE RATIO 32.5 (10.0-20.0); CALCIUM 7.9 MG/DL (8.5-10.1); CHLORIDE 107 MMOL/L (99-107); GLUCOSE 128 MG/DL (70-104); SODIUM 140 MMOL/L (135-145); TOTAL CARBON DIOXIDE 32.2 MMOL/L (24-32); TOTAL PROTEIN 5.5 G/DL (6.4-8.2); eCRCL 40 ML/MIN; eGFR 45 ML/MIN
[2023-08-08 06:39] LABS: HEMATOCRIT 35.9 % (35.0-45.0); MEAN CORPUSCULAR HEMOGLOBIN 24.9 PG (27.0-31.0); MEAN CORPUSCULAR HGB CONC 31.6 g/dL (33.0-36.5); MEAN CORPUSCULAR VOLUME 78.8 FL (78-98); RED BLOOD COUNT 4.55 X10'6 (4.20-5.60); RED CELL DISTRIBUTION WIDTH 16.4 % (11.5-14.5)
[2023-08-08] MEDS: CefTRIAXone 2gm/D5W 50ml BAG 50 ML IV SCH (08:00)
[2023-08-08] MEDS: K and/or MAG REPLACEMENT MC SCH ×2 (08:00→22:48)
[2023-08-08] MEDS: metroNIDAZOLE-Flagyl 500mg/NS 100 ML IV SCH ×2 (08:03→22:57)
[2023-08-08] MEDS: ascorbic acid 500mg tablet PO SCH ×2 (08:03→17:27)
[2023-08-08] MEDS: losartan 50mg tablet PO SCH (08:04)
[2023-08-08] MEDS: docusate sod 100mg capsule PO SCH ×2 (08:04→22:58)
[2023-08-08] MEDS: methylPREDNISolone sod succ/PF 40mg inj. IV SCH ×2 (08:04→22:58)
[2023-08-08] MEDS: furosemide 20 MG/2 ML vial IV SCH (08:04)
[2023-08-08] MEDS: FERROUS SULFATE 142 MG TABLET.ER (45mg elemental) PO SCH ×2 (08:04→22:58)
[2023-08-08] MEDS: sertraline 25mg tablet PO SCH (08:04)
[2023-08-08] MEDS: EMPAGLIFLOZIN 10 MG TABLET PO SCH (08:05)
[2023-08-08] MEDS: amLODIPine 5mg tablet PO SCH (08:05)
[2023-08-08] MEDS: nystatin 15 GM powder TP SCH ×3 (08:06→23:05)
[2023-08-08] MEDS: acetaminophen 325mg tablet PO PRN ×2 (08:29→17:36)
--- NOTE | 2023-08-08 08:39 | NUR ---
The patient is refusing CT scan this AM stating she has had a "bad experience" in the past and does not want the procedure done. Pt also refused MRI. Educated patient on the purpose and benefits/risk related to the CT scan.
[2023-08-08] MEDS: budesonide 0.5mg/2ml UD nebule IH SCH ×2 (09:26→20:54)
--- NOTE | 2023-08-08 09:59 | NUR ---
Reassessment: PO intake fluctuates however appears to be improving, documented with average 69% PO intake since 08/05 though up to average 79% PO intake since 08/06 and 96% PO intake 08/07. Pt receiving food preferences. LBM 08/06 per EMR. Pt with routine bowel care available though documented to be refusing at times. No further nutrition intervention implemented at this time. Will continue to follow and make recommendations as appropriate. Recommendations: 1) Continue heart healthy diet 2) [place] patient's preferences from previous admits: gelatin WB, chocolate pudding WL, cottage cheese WS; no fish 3) Monitor need for ONS 4) Continue routine Iron and Vitamin C d/t low iron studies 5) Routine bowel care 6) Weekly scaled weights Addendum: 08/08/23 at [address] Amended: Links added.
[2023-08-08 15:04] LABS: BASOPHILS # (AUTO) 0.1 X10'3 (0-0.2); BASOPHILS % (AUTO) 0.5 % (0-1); EOSINOPHILS % (AUTO) 0 % (0-6); HEMATOCRIT 40.3 % (35.0-45.0); HEMOGLOBIN 12.1 g/dl (12.0-16.0); LYMPHOCYTES # (AUTO) 0.6 X10'3 (1.1-4.8); LYMPHOCYTES % (AUTO) 4.4 % (21-51); MEAN CORPUSCULAR HEMOGLOBIN 24.1 PG (27.0-31.0); MEAN CORPUSCULAR HGB CONC 30.1 g/dL (33.0-36.5); MEAN CORPUSCULAR VOLUME 80.1 FL (78-98); MEAN PLATELET VOLUME 8.8 FL (7.4-10.4); MONOCYTES # (AUTO) 0.2 X10'3 (0-0.9); MONOCYTES % (AUTO) 1.9 % (2-12); NEUTROPHILS # (AUTO) 11.8 X10'3 (1.8-7.7); NEUTROPHILS % (AUTO) 93.2 % (42-75); PLATELET COUNT 271 X10'3 (140-440); RED BLOOD COUNT 5.03 X10'6 (4.20-5.60); RED CELL DISTRIBUTION WIDTH 17.2 % (11.5-14.5); WHITE BLOOD COUNT 12.7 X10'3 (4.5-11.0)
[2023-08-08 15:18] LABS: ALBUMIN 2.4 G/DL (3.4-5.0); ANION GAP 7 (8-16); BLOOD UREA NITROGEN 41 MG/DL (7-18); BUN/CREATININE RATIO 30.1 (10.0-20.0); CALCIUM 8.6 MG/DL (8.5-10.1); CHLORIDE 102 MMOL/L (99-107); CREATININE 1.36 MG/DL (0.40-0.90); GLUCOSE 162 MG/DL (70-104); POTASSIUM 4.6 MMOL/L (3.5-5.1); SODIUM 137 MMOL/L (135-145); TOTAL CARBON DIOXIDE 27.9 MMOL/L (24-32); eCRCL 36 ML/MIN; eGFR 39 ML/MIN
[2023-08-08 17:40] LABS: ANISOCYTOSIS 1+; HYPOCHROMASIA 2+; MICROCYTOSIS 1+; PLATELET ESTIMATE NORMAL; TOTAL CELLS COUNTED 100
[2023-08-08 17:41] LABS: ELLIPTOCYTES FEW; STOMATOCYTES FEW
--- NOTE | 2023-08-08 18:50 | NUR ---
Patient in room PCU 3009. I have received report from Yemi GOMEZ and had the opportunity to ask questions and assume patient care.
[2023-08-08] MEDS: polyethylene glycol 3350 17gm powd pack PO SCH (23:00)
[2023-08-09] VITALS (18 sets, daily range): BP systolic 123–156; BP diastolic 50–78; PULSE 53–87; RESP 16–22; TEMP 98–98.8; O2SAT 92–99
[2023-08-09] MEDS: vancomycin/NS 1 GM ADD-VANTAGE 250 ML IV SCH (00:30)
[2023-08-09] MEDS: heparin, porcine 5000 units/ml vial SQ SCH ×3 (00:31→15:38)
[2023-08-09] MEDS: ipratropium 0.5 MG/2.5ML nebule IH SCH ×4 (03:06→20:39)
--- NOTE | 2023-08-09 06:49 | NUR ---
Patient in room PCU 3009. I have received report from JASON Tinoco and had the opportunity to ask questions and assume patient care.
--- NOTE | 2023-08-09 06:50 | NUR ---
Problems reprioritized. Patient report given, questions answered & plan of care reviewed with Pearl GOMEZ and nursing informatics analyst Qiana.
[2023-08-09 07:02] LABS: BASOPHILS % (AUTO) 0.4 % (0-1); EOSINOPHILS % (AUTO) 0 % (0-6); HEMOGLOBIN 11.9 g/dl (12.0-16.0); LYMPHOCYTES # (AUTO) 0.5 X10'3 (1.1-4.8); LYMPHOCYTES % (AUTO) 5.2 % (21-51); MONOCYTES # (AUTO) 0.2 X10'3 (0-0.9); MONOCYTES % (AUTO) 2.4 % (2-12); NEUTROPHILS # (AUTO) 8.8 X10'3 (1.8-7.7); PLATELET COUNT 265 X10'3 (140-440); WHITE BLOOD COUNT 9.5 X10'3 (4.5-11.0)
[2023-08-09 07:26] LABS: ALANINE AMINOTRANSFERASE 16 U/L (12-78); ALBUMIN 2.5 G/DL (3.4-5.0); ALBUMIN/GLOBULIN RATIO 0.7 (1.1-1.5); ALKALINE PHOSPHATASE 74 IU/L (46-116); ANION GAP 1 (8-16); ASPARTATE AMINO TRANSFERASE 8 U/L (10-37); BILIRUBIN,TOTAL 0.3 MG/DL (0.1-1.0); BLOOD UREA NITROGEN 39 MG/DL (7-18); BUN/CREATININE RATIO 33.3 (10.0-20.0); CALCIUM 8.8 MG/DL (8.5-10.1); CHLORIDE 104 MMOL/L (99-107); CREATININE 1.17 MG/DL (0.40-0.90); GLUCOSE 118 MG/DL (70-104); POTASSIUM 5.3 MMOL/L (3.5-5.1); SODIUM 139 MMOL/L (135-145); TOTAL CARBON DIOXIDE 34.3 MMOL/L (24-32); TOTAL PROTEIN 5.9 G/DL (6.4-8.2); eCRCL 41 ML/MIN; eGFR 46 ML/MIN
[2023-08-09 07:28] LABS: RED BLOOD COUNT 4.82 X10'6 (4.20-5.60)
[2023-08-09 07:29] LABS: HEMATOCRIT 38.4 % (35.0-45.0); MEAN CORPUSCULAR HEMOGLOBIN 24.7 PG (27.0-31.0); MEAN CORPUSCULAR VOLUME 79.7 FL (78-98); RED CELL DISTRIBUTION WIDTH 16.5 % (11.5-14.5)
[2023-08-09 07:34] LABS: VANCOMYCIN,TROUGH 39.8 ug/mL (10.0-20.0)
[2023-08-09] MEDS: budesonide 0.5mg/2ml UD nebule IH SCH ×2 (07:59→20:39)
[2023-08-09] MEDS: albuterol 2.5 MG/3 ML nebule CONTNEB PRN (08:00)
[2023-08-09] MEDS: nystatin 15 GM powder TP SCH ×3 (08:00→21:02)
[2023-08-09] MEDS: metroNIDAZOLE-Flagyl 500mg/NS 100 ML IV SCH ×2 (08:10→20:59)
[2023-08-09] MEDS: CefTRIAXone 2gm/D5W 50ml BAG 50 ML IV SCH (08:11)
[2023-08-09] MEDS: methylPREDNISolone sod succ/PF 40mg inj. IV SCH ×2 (08:14→21:03)
[2023-08-09] MEDS: furosemide 20 MG/2 ML vial IV SCH (08:14)
[2023-08-09] MEDS: amLODIPine 5mg tablet PO SCH (08:15)
[2023-08-09] MEDS: FERROUS SULFATE 142 MG TABLET.ER (45mg elemental) PO SCH ×2 (08:15→21:03)
[2023-08-09] MEDS: ascorbic acid 500mg tablet PO SCH ×2 (08:15→16:59)
[2023-08-09] MEDS: losartan 50mg tablet PO SCH (08:16)
[2023-08-09] MEDS: EMPAGLIFLOZIN 10 MG TABLET PO SCH (08:16)
[2023-08-09] MEDS: docusate sod 100mg capsule PO SCH ×2 (08:16→20:00)
[2023-08-09] MEDS: sertraline 25mg tablet PO SCH (08:17)
[2023-08-09] MEDS: K and/or MAG REPLACEMENT MC SCH ×2 (08:27→20:00)
[2023-08-09] MEDS: acetaminophen 325mg tablet PO PRN ×2 (08:34→21:12)
[2023-08-09] MEDS ORDERED: VANCOMYCIN LEVEL IV ONE (10:30)
--- NOTE | 2023-08-09 16:46 | NUR ---
Student documentation: I have reviewed and agree with all assessments performed and documented by GAGE HENRY.
--- NOTE | 2023-08-09 18:22 | NUR ---
Problems reprioritized. Patient report given, questions answered & plan of care reviewed with JASON Tinoco.
--- NOTE | 2023-08-09 18:30 | NUR ---
Patient in room PCU 3009. I have received report from [employer]ius [employer] AND MARKETING [employer]MER INTERN Rufina and had the opportunity to ask questions and assume patient care.
[2023-08-09] MEDS: polyethylene glycol 3350 17gm powd pack PO SCH (21:00)
[2023-08-10] VITALS (7 sets, daily range): BP systolic 110–152; BP diastolic 60–72; PULSE 72–82; RESP 11–22; TEMP 97.6–98.3; O2SAT 93–98
[2023-08-10] MEDS: vancomycin inj 500 MG in normal saline 100ml IV soln 100 ML IV SCH ×2 (00:43→11:18)
[2023-08-10] MEDS: heparin, porcine 5000 units/ml vial SQ SCH ×2 (00:45→07:26)
[2023-08-10] MEDS: ipratropium 0.5 MG/2.5ML nebule IH SCH ×2 (03:00→09:38)
[2023-08-10 05:52] LABS: BASOPHILS % (AUTO) 0.1 % (0-1); EOSINOPHILS % (AUTO) 0 % (0-6); HEMATOCRIT 38.2 % (35.0-45.0); HEMOGLOBIN 11.6 g/dl (12.0-16.0); LYMPHOCYTES # (AUTO) 0.6 X10'3 (1.1-4.8); LYMPHOCYTES % (AUTO) 5.5 % (21-51); MEAN CORPUSCULAR HEMOGLOBIN 24.4 PG (27.0-31.0); MEAN CORPUSCULAR HGB CONC 30.3 g/dL (33.0-36.5); MEAN CORPUSCULAR VOLUME 80.4 FL (78-98); MEAN PLATELET VOLUME 9.3 FL (7.4-10.4); MONOCYTES # (AUTO) 0.3 X10'3 (0-0.9); NEUTROPHILS # (AUTO) 9.1 X10'3 (1.8-7.7); NEUTROPHILS % (AUTO) 91.4 % (42-75); PLATELET COUNT 268 X10'3 (140-440); RED BLOOD COUNT 4.75 X10'6 (4.20-5.60); RED CELL DISTRIBUTION WIDTH 17.4 % (11.5-14.5); WHITE BLOOD COUNT 9.9 X10'3 (4.5-11.0)
--- NOTE | 2023-08-10 06:30 | NUR ---
Patient in room PCU 3009. I have received report from JASON Tinoco and had the opportunity to ask questions and assume patient care.
--- NOTE | 2023-08-10 06:35 | NUR ---
Problems reprioritized. Patient report given, questions answered & plan of care reviewed with Pearl Cameron and Qiana nursing department chairperson.
[2023-08-10 06:39] LABS: ALANINE AMINOTRANSFERASE 19 U/L (12-78); ALBUMIN 2.5 G/DL (3.4-5.0); ALBUMIN/GLOBULIN RATIO 0.8 (1.1-1.5); ALKALINE PHOSPHATASE 71 IU/L (46-116); ANION GAP 3 (8-16); ASPARTATE AMINO TRANSFERASE 12 U/L (10-37); BILIRUBIN,TOTAL 0.3 MG/DL (0.1-1.0); BLOOD UREA NITROGEN 44 MG/DL (7-18); BUN/CREATININE RATIO 34.6 (10.0-20.0); CALCIUM 8.6 MG/DL (8.5-10.1); CHLORIDE 104 MMOL/L (99-107); CREATININE 1.27 MG/DL (0.40-0.90); GLUCOSE 122 MG/DL (70-104); SODIUM 139 MMOL/L (135-145); TOTAL CARBON DIOXIDE 32.5 MMOL/L (24-32); TOTAL PROTEIN 5.8 G/DL (6.4-8.2); eCRCL 38 ML/MIN; eGFR 42 ML/MIN
[2023-08-10] MEDS: CefTRIAXone 2gm/D5W 50ml BAG 50 ML IV SCH (07:21)
[2023-08-10] MEDS: metroNIDAZOLE-Flagyl 500mg/NS 100 ML IV SCH (07:24)
[2023-08-10] MEDS: methylPREDNISolone sod succ/PF 40mg inj. IV SCH (07:25)
[2023-08-10] MEDS: furosemide 20 MG/2 ML vial IV SCH (07:25)
[2023-08-10] MEDS: amLODIPine 5mg tablet PO SCH (07:26)
[2023-08-10] MEDS: EMPAGLIFLOZIN 10 MG TABLET PO SCH (07:27)
[2023-08-10] MEDS: ascorbic acid 500mg tablet PO SCH (07:27)
[2023-08-10] MEDS: sertraline 25mg tablet PO SCH (07:27)
[2023-08-10] MEDS: docusate sod 100mg capsule PO SCH (07:28)
[2023-08-10] MEDS: FERROUS SULFATE 142 MG TABLET.ER (45mg elemental) PO SCH (07:28)
[2023-08-10] MEDS: nystatin 15 GM powder TP SCH (07:29)
[2023-08-10] MEDS: losartan 50mg tablet PO SCH (07:29)
[2023-08-10] MEDS: K and/or MAG REPLACEMENT MC SCH (07:30)
[2023-08-10] MEDS: acetaminophen 325mg tablet PO PRN (08:05)
[2023-08-10] MEDS: budesonide 0.5mg/2ml UD nebule IH SCH (09:38)
--- NOTE | 2023-08-10 09:53 | NUR ---
Student documentation: I have reviewed and agree with all assessments performed and documented by GAGE HENRY.
--- NOTE | 2023-08-10 13:59 | NUR ---
PATIENT STABLE AND APPROPRIATE FOR TRANSFER TO [facility], IV AND TELE REMOVED, ALL BELONGINGS INCLUDING A PERSONAL WALKER, REPORT CALLED IN TO MARYANNE SHEPHERD AT [facility], PATIENT TAKEN TO [facility] BY [id number] AND THEIR STAFF
[2023-08-11] MEDS ORDERED: methylPREDNISolone sod succ/PF 40mg inj. IV SCH (08:00)
[2023-08-11] MEDS ORDERED: VANCOMYCIN LEVEL IV ONE (10:30)
== END 2023-08-10 13:01 | DRG 720 ==
LOC: ER 07:17 → ED HOLD 13:11 → PCU 3S 07-30 07:51
PROVIDERS: ADMIT Family Medicine; ATTEND Family Medicine
PROC: 5A09357 Assistance with Respiratory Ventilation, Less than 24 Consecutive Hours, Continuous Positive Airway Pressure (ICD-10-PCS; principal; 2023-07-29)
PROC: 5A09357 Assistance with Respiratory Ventilation, Less than 24 Consecutive Hours, Continuous Positive Airway Pressure (ICD-10-PCS; 2023-07-30)
DX: A41.9 Sepsis, unspecified organism (principal); J96.02 Acute respiratory failure with hypercapnia; G93.41 Metabolic encephalopathy; N17.9 Acute kidney failure, unspecified; I50.30 Unspecified diastolic (congestive) heart failure; I49.5 Sick sinus syndrome; J44.1 Chronic obstructive pulmonary disease with (acute) exacerbation; F20.9 Schizophrenia, unspecified; B87.89 Myiasis of other sites; S81.802A Unspecified open wound, left lower leg, initial encounter; E87.5 Hyperkalemia; D50.9 Iron deficiency anemia, unspecified; N18.30 Chronic kidney disease, stage 3 unspecified; I47.20 Ventricular tachycardia, unspecified; S81.801A Unspecified open wound, right lower leg, initial encounter; X58.XXXA Exposure to other specified factors, initial encounter; I13.0 Hypertensive heart and chronic kidney disease with heart failure and stage 1 through stage 4 chronic kidney disease, or unspecified chronic kidney disease; L03.115 Cellulitis of right lower limb; L03.116 Cellulitis of left lower limb; Z79.899 Other long term (current) drug therapy; Z88.8 Allergy status to other drugs, medicaments and biological substances; Z86.73 Personal history of transient ischemic attack (TIA), and cerebral infarction without residual deficits; Z86.711 Personal history of pulmonary embolism; Y93.89 Activity, other specified; Y92.89 Other specified places as the place of occurrence of the external cause; Y99.8 Other external cause status
CPT/HCPCS: 36415; 36600; 71045; 80048; 80053; 80202; 81001; 82803; 83540; 83550; 83605; 83735; 83880; 84145; 84484; 85007; 85008; 85018; 85025; 87040; 87081; 93005; 93306; 94640; 94660; 94760; 97110; 97161; 97530; 97535; 99285; A4353; A6223; A6250; A6260; A6446; A6449; A7015; G0378; J0360; J0696; J1170; J1450; J1644; J1756; J1940; J2270; J2920; J2930; J3370; J3490; J7030; J7040; J7050

== ENCOUNTER 2023-08-31 23:14 | Emergency (ER) | payer MEDICAID ==
[~2023-08-31] VITALS: Ht 165.1 cm; Wt 81.8 kg
[~2023-08-31 23:14] MED LIST changes: +EMPA10TA PO; +LOSA25TA41 PO; -METO-384 PO
[2023-08-31] MEDS ORDERED: metoprolol tartrate 1mg/ml inj IV ONE (23:45)
[2023-08-31 23:56] LABS: MEAN PLATELET VOLUME 7.7 FL (7.4-10.4)
[2023-08-31 23:58] LABS: BASOPHILS % (AUTO) 0.4 % (0-1); EOSINOPHILS % (AUTO) 0.4 % (0-6); HEMATOCRIT 33.3 % (35.0-45.0); HEMOGLOBIN 10.1 g/dl (12.0-16.0); LYMPHOCYTES # (AUTO) 0.9 X10'3 (1.1-4.8); LYMPHOCYTES % (AUTO) 14.8 % (21-51); MEAN CORPUSCULAR HEMOGLOBIN 25.5 PG (27.0-31.0); MEAN CORPUSCULAR HGB CONC 30.5 g/dL (33.0-36.5); MEAN CORPUSCULAR VOLUME 83.7 FL (78-98); MONOCYTES # (AUTO) 0.9 X10'3 (0-0.9); MONOCYTES % (AUTO) 14.7 % (2-12); NEUTROPHILS # (AUTO) 4.1 X10'3 (1.8-7.7); NEUTROPHILS % (AUTO) 69.7 % (42-75); PLATELET COUNT 438 X10'3 (140-440); RED BLOOD COUNT 3.97 X10'6 (4.20-5.60); RED CELL DISTRIBUTION WIDTH 21.5 % (11.5-14.5); WHITE BLOOD COUNT 5.8 X10'3 (4.5-11.0)
[2023-09-01 00:09] LABS: ALANINE AMINOTRANSFERASE 21 U/L (12-78); ALBUMIN/GLOBULIN RATIO 0.4 (1.1-1.5); ALKALINE PHOSPHATASE 268 IU/L (46-116); ANION GAP 7 (8-16); ASPARTATE AMINO TRANSFERASE 11 U/L (10-37); BILIRUBIN,TOTAL 0.2 MG/DL (0.1-1.0); BLOOD UREA NITROGEN 65 MG/DL (7-18); CHLORIDE 108 MMOL/L (99-107); CREATININE 2.03 MG/DL (0.40-0.90); GLUCOSE 119 MG/DL (70-104); POTASSIUM 5.1 MMOL/L (3.5-5.1); SODIUM 140 MMOL/L (135-145); TOTAL CARBON DIOXIDE 25.1 MMOL/L (24-32); TOTAL PROTEIN 6.7 G/DL (6.4-8.2); eCRCL 24 ML/MIN; eGFR 24 ML/MIN
[2023-09-01 00:16] LABS: PRO BRAIN NATRIURETIC PEPTIDE 10283 PG/ML (0-125)
[2023-09-01] MEDS ORDERED: normal saline 1000ML IV soln IVB ONE (00:20)
[2023-09-01 01:06] LABS: TOTAL CELLS COUNTED 100
[2023-09-01 01:07] LABS: ANISOCYTOSIS 3+; PLATELET ESTIMATE NORMAL
[2023-09-01 01:09] LABS: POLYCHROMASIA FEW; STOMATOCYTES FEW
[2023-09-01 01:10] LABS: HYPOCHROMASIA 1+
[2023-09-01 01:15] LABS: MICROCYTOSIS 1+
[2023-09-01 03:17] LABS: APTT 25 SECONDS (22-32); PROTHROMBIN TIME 10.6 SECONDS (9.0-12.0)
[2023-09-01 05:25] VITALS: BP 113/68; PULSE 72; RESP 16; TEMP 98.8; O2SAT 96
== END 2023-09-01 05:29 | disposition home or self-care (01) ==
LOC: ER 23:15
DX: I48.91 Unspecified atrial fibrillation (principal); Z20.822 Contact with and (suspected) exposure to COVID-19; I11.0 Hypertensive heart disease with heart failure; I50.9 Heart failure, unspecified; I27.20 Pulmonary hypertension, unspecified; I96 Gangrene, not elsewhere classified; J44.9 Chronic obstructive pulmonary disease, unspecified; Z86.73 Personal history of transient ischemic attack (TIA), and cerebral infarction without residual deficits; Z88.8 Allergy status to other drugs, medicaments and biological substances; Z79.2 Long term (current) use of antibiotics; Z79.899 Other long term (current) drug therapy
CPT/HCPCS: 36415; 71045; 80053; 83880; 84484; 85007; 85025; 85610; 85730; 87502; 87503; 87811; 93005; 96361; 96374; 99285; J3490; J7030; J7040